=== PATIENT | male | born 1940 | race Caucasian/White ===

== ENCOUNTER 2018-11-07 09:53 | Inpatient (IN) | payer OTHER, MEDICARE ==
[2018-11-07 11:21] LABS: Absolute Lymphocytes (CBC) 1.3 K/uL (0.7-4.9); Absolute Monocytes 1.3 K/uL (0.1-1.3); Basophils % 0.4 % (0-1.3); Eosinophils % 1.3 % (0-4.4); Hematocrit 36.7 % (39.6-49.0); Lymphocytes % 9.3 % (15.3-44.8); MPV 8.2 fL (7.6-11.3); Monocytes % 9.3 % (3.3-12.3); RBC Red Blood Cell Count 4.17 M/uL (4.33-5.43)
[2018-11-07 11:37] LABS: Albumin 3.1 g/dL (3.4-5.0); Bilirubin Total 0.8 mg/dL (0.2-1.0); Potassium 4.5 mmol/L (3.5-5.1); Protein, Total 7.2 g/dL (6.4-8.2)
--- NOTE | 2018-11-07 11:53 | RAD REPORT ---
EXAM DESCRIPTION: RAD - Foot Right 3 View - 11/07/2018 11:46 am CLINICAL HISTORY: diabetic foot;Swelling COMPARISON: <Comparisons> FINDINGS: Prominent soft tissue swelling is seen along the forefoot. A large ulceration is seen miya g the wall of foot anteriorly. There is swelling noted of the third toe with subtle demineralization of the underlying distal phalanx. This is equivocal for early osteomyelitis.
[2018-11-07] MEDS ORDERED: CLINDAMYCIN INJ 600 MG in NA CHLORIDE 0.9% 50 ML IV ONE (12:00)
--- NOTE | 2018-11-07 12:00 | ER ---
Nurse's Notes [facility] Name: Cole Jeffrey Age: 78 yrs Sex: Male : 1940 Arrival Date: 11/07/2018 Time: 09:55 Bed 17 Private MD: Layo Christy E Diagnosis: Cellulitis and acute lymphangitis of other parts of limb-right foot Presentation: 11/07 09:57 Presenting complaint: Sent by Dr. Christy for worsening chronic right foot wound hb infection. Transition of care: patient was not received from another setting of care. Onset of symptoms is unknown. Risk Assessment: Do you want to hurt yourself or someone else? Patient reports no desire to harm self or others. Care prior to arrival: None. 09:57 Method Of Arrival: Ambulatory hb 09:57 Acuity: JOSE F 3 hb 10:05 Initial Sepsis Screen: Does the patient meet any 2 criteria? No. Patient's initial rb1 sepsis screen is negative. 10:05 Initial Sepsis Screen: Does the patient have a suspected source of infection? No. rb1 Patient's initial sepsis screen is negative. Historical: - Allergies: 10:00 No Known Allergies; hb - Home Meds: 10:00 Cialis 2.5 mg Oral tab 1 tab once daily [Active]; glimepiride 4 mg Oral tab 1 tab once hb daily [Active]; Januvia 100 mg Oral tab 1 tab once daily [Active]; levothyroxine 100 mcg tab 1 tab once daily [Active]; fluticasone [Active]; oxybutynin chloride 5 mg Oral tr24 1 tab once daily [Active]; Proscar 5 mg Oral tab 1 tab once daily [Active]; simvastatin 20 mg Oral tab 1 tab once daily [Active]; furosemide 20 mg Oral tab 1 tab as needed [Active]; glimepiride 4 mg Oral tab 1 tab once daily [Active]; losartan-hydrochlorothiazide 100-25 mg Oral tab 1 tab once daily [Active]; metformin 1,000 mg Oral tab 1 tab 2 times per day [Active]; Matzim LA 360 mg Oral Tb24 1 tab once daily [Active]; tamsulosin 0.4 mg Oral cp24 1 cap once daily [Active]; terbinafine HCl 250 mg Oral tab 1 tab once daily [Active]; amlodipine 2.5 mg tab once daily [Active]; magnesium oxide 500 mg Oral tab [Active]; - PMHx: 10:00 Cellulitis; Diabetes - NIDDM; Hyperlipidemia; Hypertension; Hypothyroidism; hb - Immunization history:: Adult Immunizations up to date. - Social history:: Smoking status: Patient/guardian denies using tobacco, Patient/guardian denies using alcohol, street drugs, The patient lives with family. - Ebola Screening: : No symptoms or risks identified at this time. - Family history:: not pertinent. Screenin:05 Abuse screen: Denies threats or abuse. Nutritional screening: No deficits noted. rb1 Tuberculosis screening: No symptoms or risk factors identified. Fall Risk None identified. Assessment: 10:05 General: Appears in no apparent distress. comfortable, Behavior is calm, cooperative, rb1 Denies fever. Pain: Complains of pain in right foot Pain currently is 7 out of 10 on a pain scale. Neuro: Level of Consciousness is awake, alert, obeys commands, Oriented to person, place, time, situation. Cardiovascular: Capillary refill < 3 seconds is brisk in bilateral fingers. Respiratory: Airway is patent Respiratory effort is even, unlabored, Respiratory pattern is regular, symmetrical. GI: No signs and/or symptoms were reported involving the gastrointestinal system. : No signs and/or symptoms were reported regarding the genitourinary system. Derm: Wound noted right foot. Musculoskeletal: Range of motion: intact in all extremities. 11:00 Reassessment: Patient appears in no apparent distress at this time. Patient and/or rb1 family updated on plan of care and expected duration. Pain level reassessed. Patient is alert, oriented x 3, equal unlabored respirations, skin warm/dry/pink. 12:05 Reassessment: Patient appears in no apparent distress at this time. No changes from rb1 previously documented assessment. 13:00 Reassessment: Patient appears in no apparent distress at this time. Patient and/or rb1 family updated on plan of care and expected duration. Pain level reassessed. Patient is alert, oriented x 3, equal unlabored respirations, skin warm/dry/pink. Family at bedside. 14:00 Reassessment: Patient appears in no apparent distress at this time. No changes from rb1 previously documented assessment. 15:00 Reassessment: Patient appears in no apparent distress at this time. Patient and/or rb1 family updated on plan of care and expected duration. Pain level reassessed. Patient is alert, oriented x 3, equal unlabored respirations, skin warm/dry/pink. Pt. is sitting on the side of the bed talking to his family. 16:00 Reassessment: Patient appears in no apparent distress at this time. No changes from rb1 previously documented assessment. Family remains at bedside. 17:00 Reassessment: Patient appears in no apparent distress at this time. Patient and/or rb1 family updated on plan of care and expected duration. Pain level reassessed. Patient is alert, oriented x 3, equal unlabored respirations, skin warm/dry/pink. 17:35 Reassessment: I tried to call report and was asked to call back in five minutes by rb1 Roxanne. 17:46 Reassessment: Tried to call report but there was no answer. rb1 18:00 Reassessment: Patient appears in no apparent distress at this time. Assisted the pt. in rb1 repositioning. 18:08 Reassessment: Called report to RUBEN Cunha. Information from the [facility] was given. All rb1 questions asked and answered. Vital Signs: 09:58 BP 152 / 67; Pulse 71; Resp 20; Temp 97.9; Pulse Ox 97% on R/A; Weight 118.84 kg; hb Height 6 ft. 2 in. (187.96 cm); Pain 8/10; 11:00 BP 156 / 60; Pulse 72; Resp 20; Temp 98.0; Pulse Ox 97% on R/A; mh5 11:45 BP 140 / 89; Pulse 72; Resp 17; Temp 97.6(O); Pulse Ox 97% on R/A; mh5 12:09 Pain 4/10; rb1 12:45 BP 132 / 58; Pulse 69; Resp 18; Temp 97.9(O); Pulse Ox 98% on R/A; mh5 13:45 BP 151 / 68; Pulse 73; Resp 22; Temp 98.0(O); Pulse Ox 96% ; mh5 14:45 BP 127 / 53; Pulse 76; Resp 18; Temp 98.2(O); Pulse Ox 96% on R/A; mh5 15:45 BP 124 / 65; Pulse 70; Resp 19; Temp 97.8(O); Pulse Ox 96% on R/A; mh5 16:45 BP 119 / 72; Pulse 61; Resp 20; Temp 98.6(O); Pulse Ox 96% on R/A; mh5 17:15 BP 138 / 70; Pulse 68; Resp 17; Temp 99.4(O); Pulse Ox 100% on R/A; Pain 4/10; rb1 18:10 BP 135 / 68; Pulse 73; Resp 19; Temp 99.0(O); Pulse Ox 100% on R/A; Pain 4/10; rb1 09:58 Body Mass Index 33.64 (118.84 kg, 187.96 cm) hb 17:15 At it's worst its a 8 rb1 ED Course: 09:55 Patient arrived in ED. as 09:55 Layo Christy DPM is Private Physician. as 09:58 Triage completed. hb 10:00 Arm band placed on. hb 10:04 Jerrica Stoddard MD is Attending Physician. ma2 10:47 Josiane Martinez, RN is Primary Nurse. rb1 11:02 Patient has correct armband on for positive identification. Bed in low position. Call 5 light in reach. Side rails up X 1. Adult w/ patient. Pulse ox on. NIBP on. 11:04 Inserted saline lock: 20 gauge in right antecubital area, using aseptic technique. rb1 Blood collected. 11:47 Foot Right 3 View XRAY In Process Unspecified. EDMS 11:58 Kathya Lara MD is Hospitalizing Provider. ma2 18:30 No provider procedures requiring assistance completed. Patient admitted, IV remains in rb1 place. Administered Medications: 12:04 Drug: Clindamycin 600 mg Route: IVPB; Infused Over: 30 mins; Site: right antecubital; rb1 12:40 Follow up: Response: No adverse reaction; IV Status: Completed infusion rb1 15:33 Drug: Zosyn 3.375 grams Route: IVPB; Infused Over: 60 mins; Site: right antecubital; rb1 16:38 Follow up: Response: No adverse reaction; IV Status: Completed infusion rb1 Point of Care Testing: Blood Glucose: 11:00 Blood Glucose: 294 mg/dL; mh5 Ranges: Outcome: 11:59 Decision to Hospitalize by Provider. ma2 18:30 Patient left the ED. rb1 18:30 Admitted to Tele accompanied by tech, family with patient, via wheelchair, room 418, rb1 with chart, Report called to RUBEN Cunha 18:30 Condition: stable 18:30 Instructed on the need for admit. Signatures: Dispatcher [employer] Cheyenne Ayala Rebecca, RN RN rb1 Marilyn Leiva RN RN Megan Levi 5 Jerrica Stoddard MD MD ma2 Corrections: (The following items were deleted from the chart) 11:02 10:55 BP 126 / 54; Pulse 72bpm; Resp 18bpm; Pulse Ox 97%; Temp 98.0F Oral; mh5 mh5 12:12 12:10 Initial Sepsis Screen: Does the patient meet any 2 criteria? rb1 rb1 19:31 18:59 Patient left the ED. rb1 rb1
--- NOTE | 2018-11-07 12:00 | EDPHYS ---
Physician Documentation [facility] Name: Cole Jeffrey Age: 78 yrs Sex: Male : 1940 Arrival Date: 11/07/2018 Time: 09:55 Bed 17 Private MD: Layo Christy E ED Physician Jerrica Stdodard HPI: 11/07 11:55 This 78 yrs old Male presents to ER via Ambulatory with complaints of Foot ma2 Infection. 11:55 The complaints affect the right foot. Onset: The symptoms/episode began/occurred ma2 gradually, 2 day(s) ago. Associated signs and symptoms: Pertinent positives: pain and fever and 2 days worsening of chronic diabetic foot , Pertinent negatives: numbness, swelling, tingling. The patient has experienced similar episodes in the past. Historical: - Allergies: 10:00 No Known Allergies; hb - Home Meds: 10:00 Cialis 2.5 mg Oral tab 1 tab once daily [Active]; glimepiride 4 mg Oral tab 1 tab once hb daily [Active]; Januvia 100 mg Oral tab 1 tab once daily [Active]; levothyroxine 100 mcg tab 1 tab once daily [Active]; fluticasone [Active]; oxybutynin chloride 5 mg Oral tr24 1 tab once daily [Active]; Proscar 5 mg Oral tab 1 tab once daily [Active]; simvastatin 20 mg Oral tab 1 tab once daily [Active]; furosemide 20 mg Oral tab 1 tab as needed [Active]; glimepiride 4 mg Oral tab 1 tab once daily [Active]; losartan-hydrochlorothiazide 100-25 mg Oral tab 1 tab once daily [Active]; metformin 1,000 mg Oral tab 1 tab 2 times per day [Active]; Matzim LA 360 mg Oral Tb24 1 tab once daily [Active]; tamsulosin 0.4 mg Oral cp24 1 cap once daily [Active]; terbinafine HCl 250 mg Oral tab 1 tab once daily [Active]; amlodipine 2.5 mg tab once daily [Active]; magnesium oxide 500 mg Oral tab [Active]; - PMHx: 10:00 Cellulitis; Diabetes - NIDDM; Hyperlipidemia; Hypertension; Hypothyroidism; hb - Immunization history:: Adult Immunizations up to date. - Social history:: Smoking status: Patient/guardian denies using tobacco, Patient/guardian denies using alcohol, street drugs, The patient lives with family. - Ebola Screening: : No symptoms or risks identified at this time. - Family history:: not pertinent. ROS: 11:55 MS/extremity: Positive for pain, swelling, warmth, Negative for ecchymosis. ma2 11:55 Constitutional: Negative for fever, chills, and weight loss. 11:55 All other systems are negative. Exam: 11:55 Constitutional: This is a well developed, well nourished patient who is awake, alert, ma2 and in no acute distress. Cardiovascular: Regular rate and rhythm with a normal S1 and S2. No gallops, murmurs, or rubs. Normal PMI, no JVD. No pulse deficits. Respiratory: Lungs have equal breath sounds bilaterally, clear to auscultation and percussion. No rales, rhonchi or wheezes noted. No increased work of breathing, no retractions or nasal flaring. Abdomen/GI: Soft, non-tender, with normal bowel sounds. No distension or tympany. No guarding or rebound. No evidence of tenderness throughout. Skin: Warm, dry with normal turgor. Normal color with no rashes, no lesions, and no evidence of cellulitis. Neuro: Awake and alert, GCS 15, oriented to person, place, time, and situation. Cranial nerves II-XII grossly intact. Motor strength 5/5 in all extremities. Sensory grossly intact. Cerebellar exam normal. Normal gait. 11:55 Musculoskeletal/extremity: Extremities: grossly normal except: right plantar diabetic wound at base of right great toe, wound is 1 x 1 cm, deep with puss, with surrounding cellulitis , ROM: intact in all extremities. Vital Signs: 09:58 BP 152 / 67; Pulse 71; Resp 20; Temp 97.9; Pulse Ox 97% on R/A; Weight 118.84 kg; hb Height 6 ft. 2 in. (187.96 cm); Pain 8/10; 11:00 BP 156 / 60; Pulse 72; Resp 20; Temp 98.0; Pulse Ox 97% on R/A; mh5 11:45 BP 140 / 89; Pulse 72; Resp 17; Temp 97.6(O); Pulse Ox 97% on R/A; mh5 12:09 Pain 4/10; rb1 12:45 BP 132 / 58; Pulse 69; Resp 18; Temp 97.9(O); Pulse Ox 98% on R/A; mh5 13:45 BP 151 / 68; Pulse 73; Resp 22; Temp 98.0(O); Pulse Ox 96% ; mh5 14:45 BP 127 / 53; Pulse 76; Resp 18; Temp 98.2(O); Pulse Ox 96% on R/A; mh5 15:45 BP 124 / 65; Pulse 70; Resp 19; Temp 97.8(O); Pulse Ox 96% on R/A; mh5 16:45 BP 119 / 72; Pulse 61; Resp 20; Temp 98.6(O); Pulse Ox 96% on R/A; mh5 17:15 BP 138 / 70; Pulse 68; Resp 17; Temp 99.4(O); Pulse Ox 100% on R/A; Pain 4/10; rb1 18:10 BP 135 / 68; Pulse 73; Resp 19; Temp 99.0(O); Pulse Ox 100% on R/A; Pain 4/10; rb1 09:58 Body Mass Index 33.64 (118.84 kg, 187.96 cm) hb 17:15 At it's worst its a 01/20 rb1 MDM: 10:04 Patient medically screened. ma2 11:55 Differential diagnosis: cellulitis, diabetic foot with cellulitis. Data reviewed: vital ma2 signs, nurses notes. Sepsis 6 hour Focused Exam: Focused assessment performed: November 07, 2018 at 11:58 Heart: Regular rate/rhythm. Lungs: noted to be clear bilaterally. Capillary refill examination performed. Capillary refill noted to be brisk. Current patient vital signs reviewed: Yes. Counseling: I had a detailed discussion with the patient and/or guardian regarding: the historical points, exam findings, and any diagnostic results supporting the discharge/admit diagnosis, the presence of at least one elevated blood pressure reading (>120/80) during this emergency department visit. Response to treatment: the patient's symptoms have markedly improved after treatment. 11/07 10:42 Order name: CBC with Diff; Complete Time: 11:51 [facility] 11/07 10:42 Order name: CMP; Complete Time: 11:51 [facility] 11/07 10:42 Order name: Lactate; Complete Time: 11:51 [facility] 11/07 10:42 Order name: Procalcitonin; Complete Time: 11:51 [facility] 11/07 10:45 Order name: Blood Culture Adult (2) [facility] 11/07 10:48 Order name: ESR; Complete Time: 11:51 [facility] 11/07 10:42 Order name: Foot Right 3 View XRAY; Complete Time: 11:54 [facility] 11/07 10:48 Order name: CRP; Complete Time: 11:51 [facility] 11/07 15:38 Order name: Lactate Sepsis 2 HR Follow-up [facility] 11/07 17:37 Order name: Diet Ada 1800 Prasanth; Complete Time: 17:39 rb1 Administered Medications: 12:04 Drug: Clindamycin 600 mg Route: IVPB; Infused Over: 30 mins; Site: right antecubital; rb1 12:40 Follow up: Response: No adverse reaction; IV Status: Completed infusion rb1 15:33 Drug: Zosyn 3.375 grams Route: IVPB; Infused Over: 60 mins; Site: right antecubital; rb1 16:38 Follow up: Response: No adverse reaction; IV Status: Completed infusion rb1 Point of Care Testing: Blood Glucose: 11:00 Blood Glucose: 294 mg/dL; mh5 Ranges: Critical Glucose Levels:Adult <50 mg/dl or >400 mg/dl <40 mg/dl or >180 mg/dl Disposition: 11/07/18 11:59 Hospitalization ordered by Kathya Lara for Inpatient Admission. Preliminary diagnosis is Cellulitis and acute lymphangitis of other parts of limb - right foot. - Bed requested for Telemetry/MedSurg (Inpatient). - Status is Inpatient Admission. rb1 - Condition is Stable. - Problem is new. - Symptoms are unchanged. UTI on Admission? No Signatures: Dispatcher [employer] [facility] Shoshana Garcia Rebecca, RN RN rb1 Marilyn Leiva RN RN Jerrica Stoddard MD MD ma2 Corrections: (The following items were deleted from the chart) 17:20 11:59 Hospitalization Ordered by Kathya Lara MD for Inpatient Admission. Preliminary bd diagnosis is Cellulitis and acute lymphangitis of other parts of limb - right foot. Bed requested for Telemetry/MedSurg (Inpatient). Status is Inpatient Admission. Condition is Stable. Problem is new. Symptoms are unchanged. UTI on Admission? No. ma2 18:59 17:20 11/07/2018 11:59 Hospitalization Ordered by Kathya Lara MD for Inpatient rb1 Admission. Preliminary diagnosis is Cellulitis and acute lymphangitis of other parts of limb - right foot. Bed requested for Telemetry/MedSurg (Inpatient). Status is Inpatient Admission. Condition is Stable. Problem is new. Symptoms are unchanged. UTI on Admission? No. bd
[2018-11-07] MEDS ORDERED: PIPER/TAZO/NS 3.375gm 3.375 GM/100 ML BAG ONE (15:24)
[2018-11-07] MEDS ORDERED: ENOXAPARIN 30 MG/0.3 ML SQ SCH (18:29)
[2018-11-07] MEDS: INSULIN -REGULAR HUMAN 50 UNIT/0.5 ML ML SQ SCH ×2 (18:29→20:18)
[2018-11-07] MEDS ORDERED: CEFEPIME 2 GM VIAL IV SCH (18:29)
[2018-11-07] MEDS ORDERED: ACETAMINOPHEN 500 MG TAB PO PRN (18:29)
[2018-11-07] MEDS ORDERED: ONDANSETRON 4 MG/2 ML VIAL IV PRN (18:29)
[2018-11-07] MEDS ORDERED: MORPHINE 2 MG/ML SYR IV PRN (18:29)
[2018-11-07] MEDS ORDERED: D50W 25 GM/50 ML SYRINGE IV PRN (18:43)
[2018-11-07] MEDS ORDERED: GLUCAGON 1 MG/VIAL IM PRN (18:43)
[2018-11-07] MEDS ORDERED: CEFEPIME 2 GM in NA CHLORIDE 0.9% 100 ML IV SCH (19:00)
[2018-11-07 19:03] VITALS: BMI 34.9
[2018-11-07] MEDS: NA CHLORIDE 0.9% 1,000 ML IV SCH (20:05)
[2018-11-07] MEDS ORDERED: VANCOMYCIN/NS 1 gm 1 GM/250 ML BAG IVPB SCH (21:00)
[2018-11-08] LABS: Urine Appearance CLEAR; Urine Bilirubin NEGATIVE (NEG); Urine Blood NEGATIVE (NEG); Urine Color YELLOW; Urine Glucose NEGATIVE (NEG); Urine Protein TRACE (NEG); Urine Specific Gravity 1.015 (1.005-1.030); Urine Urobilinogen 0.2 mg/dL (0.2-1.0)
[2018-11-08 00:20] LABS: Urine Microscopic Reflex ORDER UMIC
[2018-11-08 01:11] LABS: Urine Bacteria <20 /HPF (NONE SEEN); Urine Culture Reflex Order NOT NEEDED; Urine RBC <5 /HPF (NONE SEEN)
--- NOTE | 2018-11-08 01:36 | HP ---
Date of Admission: 11/07/2018 Chief Complaint: Diabetic foot wound. Code Status: Full. The patient has a living will and his is the medical power of deputy attorney general. Primary Care Physician: Dr. Lucero. Consultants: Dr. Christy with Podiatry. History Of Present Illness: The patient is a 78-year-old male with past medical history of hypertens ion, diabetes, who was in his usual state of health until 1 week prior to admission when the patient had developed worsening foot ulcer on his right foot plantar aspect after foot wound developed back i n April of 2018 while the patient was hunting. The patient has been on a course of oral antibioti cs, which improved the condition initially week ago. However, on Tuesday, the patient had worsening r edness, swelling, pain, and pustular drainage from the wound. He was started on Bactrim and cultures were positive. However, due to failed outpatient treatment, he was evaluated [facility] morning and sent over to the ER for further evaluation and treatment with IV anti biotics due to worsening foot infection and cellulitis. The patient's symptoms are constant, moderat e, progressively worsening. He reports fevers as well as chills. The patient denies any chest pain or shortness of breath. In the ER, his workup revealed elevated white blood cell count of 13.8 with left shift. ESR and CRP were elevated. Procalcitonin was negative; however, lactate was elevated at 2.4. The patient did not appear to be septic. Did have some elevated kidney function, creatinine o f 1.34 with a baseline which was normal. The patient was given clindamycin IV and foot x-ray showed equivocal results for osteomyelitis. The patient was then referred for admission. When seen in the ER, he was awake, alert, oriented x3, in some mild distress. 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 Surgical History: Right knee replacement on 12/21/2010, left knee replacement on 03/08/2013. Allergies: NO KNOWN DRUG ALLERGIES. Medications: List reviewed. Social History: The patient is a former smoker, quit smoking in 1986. Drinks whiskey every night. No illicit drug use. The patient is , lives at home, fairly independent. Family History: Father had heart disease and of a heart attack. Mother has breast cance r, also of heart attack. Review of Systems: Ten-point system is negative except as per HPI. Physical Examination: Vital Signs: Blood pressure 152/67, pulse 71, respirations 20. O2 is 97% on room air. Temperature is 97.9. BMI is 33.6. General: Awake, alert, oriented x3. Elderly male, in some mild distress due to pain, ill appearing. HEENT: Normocephalic, atraumatic. PERRLA. EOMI. Dry mucous membranes. Oropharynx is clear. Conj unctivae are anicteric. Neck: Supple. No JVD. Trachea midline. CV: S1, S2. Regular rate and rhythm. Peripheral pulses are weak bilaterally. Respiratory: Moving air well bilaterally. No wheezing or stridor. Gastrointestinal: Abdomen is soft, nontender, nondistended. Positive bowel sounds. No guarding or rigidity. Extremities: No clubbing or cyanosis. Right lower extremity has edema, 2+. Minimal pedal edema on the left lower extremity. Skin: Right lower extremity has erythema, warm to touch, tender to palpation with streaking of eryth maurisio extending up towards the right lower extremity. The patient has a diabetic foot wound on the milton ntar aspect with pustular drainage. Psych: Mood is okay. Affect is full. Insight and judgment are good. Neuro: Cranial nerves 2-12 intact grossly. No focal neurological deficit. Speech is normal. Decre ased sensation to light touch, bilateral lower extremities. Laboratory Data: Sodium 131, potassium 4.5, chloride 98, CO2 27, BUN 19, creatinine 1.34, glucose 26 7, lactate 2.4, calcium 8.5, CRP 117, albumin 3.1. Procalcitonin less than 0.05. WBC 13.8, H and H 12 and 36.7, platelets 271, neutrophils 79%. ESR is 84. Imaging Studies: Foot x-ray of the right shows prominent soft tissue swelling along the forefoot. L arge ulcerations seen along the wall of the foot anteriorly. Swelling noted of the third toe with li btle demineralization, underlying distal phalanx. This is equivocal for early osteomyelitis. Assessment And Plan: A 78-year-old male with: 1.Osteomyelitis of the right foot, failed outpatient treatment. We will obtain MRI of the foot. We will start on broad-spectrum IV antibiotics. This is secondary to diabetic foot wound. Dr. Westley sanchez Podiatry has been consulted. We will obtain ID consultation. 2.Right foot cellulitis secondary to diabetic foot wound with failed outpatient treatment. The bao ent is currently on Bactrim. One week ago, was also on oral regimen. We will start on broad spectru m IV antibiotics, obtain blood cultures and wound cultures. 3.Obesity, BMI 33. 4.Diabetes mellitus, type 2, non-insulin requiring with hyperglycemia. We will start on sliding sca le insulin, monitor blood glucose levels. 5.Essential hypertension. We will resume home medications. 6.Benign prostatic hyperplasia. We will continue home medication. 7.Hypothyroidism. We will continue Synthroid. 8.Mixed hyperlipidemia. Continue statin. 9.GI and DVT prophylaxis with PPI and Lovenox. 10.Acute kidney injury. Creatinine is elevated at 1.34. Baseline from several years ago was normal . We will continue with IV fluids, avoid NSAIDs, and monitor creatinine level. Admit the patient to med-surg, place as inpatient. Length of stay, greater than 2 midnights. /MARK Voice ID: [id number]
[2018-11-08 06:22] LABS: Absolute Lymphocytes (CBC) 1.4 K/uL (0.7-4.9); Absolute Monocytes 1.1 K/uL (0.1-1.3); Absolute Neutrophil 5.4 K/uL (1.8-8.0); Basophils % 0.6 % (0-1.3); Eosinophils % 8.5 % (0-4.4); Lymphocytes % 16.3 % (15.3-44.8); MPV 7.7 fL (7.6-11.3); Monocytes % 12.7 % (3.3-12.3); RBC Red Blood Cell Count 3.89 M/uL (4.33-5.43)
[2018-11-08 06:41] LABS: Potassium 4.3 mmol/L (3.5-5.1)
[2018-11-08] MEDS: INSULIN -REGULAR HUMAN 50 UNIT/0.5 ML ML SQ SCH ×4 (07:30→21:00)
--- NOTE | 2018-11-08 08:33 | P.CNS ---
Date of Consult: 11/08/18 Reason for Consult: cellulitis with abscess right foot Allergies No Known Allergies Allergy (Verified 05/13/15 02:37) Home Medications: Amlodipine Besylate [Norvasc] 2.5 mg PO DAILY 11/07/18 Aspirin 325 mg PO DAILY 11/07/18 Cetirizine HCl [Allergy Relief] 10 mg PO DAILY 11/07/18 Finasteride [Proscar] 5 mg PO DAILY 11/07/18 Fluticasone Propionate [Flovent Diskus] 50 mcg IH BID 11/07/18 Glimepiride [Amaryl] 4 mg PO BID 11/07/18 Levothyroxine Sodium 1 tab PO DAILY 11/07/18 Losartan/Hydrochlorothiazide [Losartan-Hctz 100-25 mg Tab] 1 tab PO DAILY Magnesium Oxide [Magnesium] 500 mg PO BID 11/07/18 Metformin ER [Glucophage ER] 1,000 mg PO BID 11/07/18 Oxybutynin Chloride [Ditropan] 5 mg PO BEDTIME 11/07/18 Simvastatin 20 mg PO BEDTIME 11/07/18 Sitagliptin Phosphate [Januvia] 100 mg PO DAILY 11/07/18 Tamsulosin [Flomax] 0.4 mg PO BEDTIME 11/07/18 - Past Medical/Surgical History Diabetic: Yes -: DM-NIDDM -: high cholestrol -: BPH -: hypothyroidism -: HTN -: allergies -: skin cancer ears & arms -: 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 -: left knee replacement 03/08/13 - Family History Father Medical History: Heart disease Notes: heart attack- passed Mother Medical History: Cancer Notes: Breast CA, passed r/t Heart attack - Social History Smoking Status: Former smoker Alcohol use: Yes CD- Drugs: No Caffeine use: Yes Place of Residence: Home Review of Systems 10-point ROS is otherwise unremarkable Physical Examination Temp Pulse Resp BP Pulse Ox 98.9 F 73 16 145/63 H 95 11/08/18 04:00 11/08/18 04:00 11/08/18 04:00 11/08/18 04:00 11/08/18 04:00 General: Alert, In no apparent distress, Oriented x3 Cardiovascular: Normal pulses, Edema Capillary refill: <2 Seconds Musculoskeletal: No clubbing, No swelling, No contractures, No erythema, No tenderness, No warmth Integumentary: Erythema, Warmth, Diabetic ulcer (ulceration plantar right 1st mpj with no probing to bone at this time. Wound measures 2.0cm X 1.5cm X 1.5cm with large granulation and fibrin noted. erythema noted to entire forefoot with edema present as well) Neurological: Abnormal sensation Laboratory Data (last 24 hrs) 11/07/18 11:04: Sodium 131 L, Potassium 4.5, BUN 19 H, Creatinine 1.34 H, Glucose 267 H, Total Bilirubin 0.8, AST 13 L, ALT 25, Alkaline Phosphatase 57 11/07/18 11:04: WBC 13.8 H, Hgb 12.0 L, Hct 36.7 L, Plt Count 271 - Problems (1) Cellulitis of foot, right Current Visit: Yes Status: Acute Plan: MRI to evaluate for osteomyelitis and length of need for iv antibiotics. Bid packing right foot wound with saline moistened gauze Time Spent Managing Pts care (In Minutes): 20
[2018-11-08] MEDS: VANCOMYCIN 2 GM in NA CHLORIDE 0.9% 500 ML IVPB SCH (09:42)
[2018-11-08] MEDS: CEFEPIME/SWI 2gm 2 GM/20 ML SYR IV SCH (09:42)
--- NOTE | 2018-11-08 11:16 | RAD REPORT ---
EXAM DESCRIPTION: MRIFoot Right Wo Cont11/08/2018 10:56 am CLINICAL HISTORY: Left foot pain and swelling COMPARISON: November 07, 2018 x-ray TECHNIQUE: Axial, sagittal and coronal magnetic resonance imaging of the left foot was obtained. FINDINGS: Abnormal signal is present throughout most of the third distal phalanx compatible with ost eomyelitis. Small area of abnormal signal is present within the sesamoid adjacent to the first metatarsal head. A djacent edema is seen within the soft tissue. A fluid-filled abscess is not noted. No fracture or dislocation IMPRESSION: Osteomyelitis involving the third distal phalanx Small area of abnormal signal within the sesamoid adjacent to the first metatarsal head equivocal for additional early osteomyelitis
[2018-11-08] MEDS: COLLAGENASE 30 GM OINTMENT TOP SCH (14:24)
[2018-11-08] MEDS: ENOXAPARIN 40 MG/0.4 ML SQ SCH (16:23)
[2018-11-08] MEDS: GLIMEPIRIDE 2 MG TABLET PO SCH (16:23)
[2018-11-08] MEDS: NA CHLORIDE 0.9% 1,000 ML IV SCH ×2 (16:30→21:09)
[2018-11-08] MEDS ORDERED: TAMSULOSIN 0.4 MG SR CAP PO SCH (21:00)
[2018-11-08] MEDS ORDERED: OXYBUTYNIN CHLORIDE 5 MG TAB PO SCH (21:00)
[2018-11-08] MEDS ORDERED: ATORVASTATIN 10 MG TAB PO SCH (21:00)
[2018-11-08] MEDS: HOME MED 1 EA UNK (Fluticasone Propionate [Flovent Diskus] 50 MCG) IH SCH (21:00)
[2018-11-08] MEDS: LACTOBACILLUS/ACIDOPHILUS TAB PO SCH (22:03)
[2018-11-09 04:08] VITALS: O2SAT 96
[2018-11-09] MEDS: VANCOMYCIN 2 GM in NA CHLORIDE 0.9% 500 ML IVPB SCH (06:02)
[2018-11-09 06:12] LABS: Potassium 4.3 mmol/L (3.5-5.1)
[2018-11-09 06:20] LABS: Absolute Lymphocytes (CBC) 1.6 K/uL (0.7-4.9); Absolute Monocytes 1.1 K/uL (0.1-1.3); Absolute Neutrophil 4.7 K/uL (1.8-8.0); Basophils % 0.6 % (0-1.3); Eosinophils % 11.5 % (0-4.4); Hematocrit 34.7 % (39.6-49.0); Lymphocytes % 18.6 % (15.3-44.8); MPV 8.2 fL (7.6-11.3); Monocytes % 13.4 % (3.3-12.3); RBC Red Blood Cell Count 3.98 M/uL (4.33-5.43)
[2018-11-09] MEDS ORDERED: LEVOTHYROXINE SOD 0.1 MG TAB PO SCH (06:30)
[2018-11-09] MEDS: INSULIN -REGULAR HUMAN 50 UNIT/0.5 ML ML SQ SCH ×3 (07:30→16:30)
[2018-11-09] MEDS ORDERED: CETIRIZINE HCL 5 MG TABLET PO SCH (09:00)
[2018-11-09] MEDS: HOME MED 1 EA UNK (Fluticasone Propionate [Flovent Diskus] 50 MCG) IH SCH (09:00)
[2018-11-09] MEDS ORDERED: LOSARTAN/HCTZ 50-12.5 PO SCH (09:00)
[2018-11-09] MEDS ORDERED: SITAGLIPTIN PHOS 100 MG TAB PO SCH (09:00)
[2018-11-09] MEDS ORDERED: FINASTERIDE 5 MG TAB PO SCH (09:00)
[2018-11-09] MEDS ORDERED: AMLODIPINE 2.5 MG TAB PO SCH (09:00)
[2018-11-09] MEDS: CEFEPIME/SWI 2gm 2 GM/20 ML SYR IV SCH (09:11)
[2018-11-09] MEDS: LACTOBACILLUS/ACIDOPHILUS TAB PO SCH ×2 (09:12→15:18)
[2018-11-09] MEDS: GLIMEPIRIDE 2 MG TABLET PO SCH ×2 (09:12→16:44)
[2018-11-09] MEDS: COLLAGENASE 30 GM OINTMENT TOP SCH (09:14)
--- NOTE | 2018-11-09 11:44 | PN ---
Date of Progress Note: 11/08/2018 Subjective: The patient seen and examined. Chart reviewed and case discussed with Dr. Christy and Dr. Rust. The patient states his pain is better. Swelling and redness still present. Medications: List reviewed. Physical Examination: Vital Signs: Temperature 97.8, heart rate 68, blood pressure 146/72, respirations 19, and O2 of 94% on room air. General: Awake, alert, and oriented x3. Ill-appearing, elderly male, obese. CV: S1 and S2. Regular rate and rhythm. Peripheral pulses present. Respiratory: Moving air well bilaterally. No wheezing or stridor. No use of accessory muscles. Gastrointestinal: Abdomen is soft, nontender, nondistended. Positive bowel sounds. No guarding or rigidity. Extremities: No clubbing or cyanosis. The patient has edema of the right lower extremity. Skin: Right lower extremity palmar aspect wound with pustular drainage, foul odor. Neurologic: Nonfocal. He has decreased sensation to light touch bilateral lower extremities. Laboratory Data: Sodium 135, potassium 4.3, chloride 103, CO2 27, BUN 15, creatinine 1.08, glucose 8 9, calcium 8.2. WBC 8.6, H and H 11.3 and 34, platelets 252, neutrophils 61%. Blood cultures no alvin wt to date. Wound cultures pending. MRI of the right foot shows osteomyelitis involving the third distal phalanx, small area of abnormal signal within the sesamoid adjacent to the first metatarsal he ad equivocal for additional early osteomyelitis. Assessment And Plan: A 78-year-old male with: 1.Osteomyelitis of the right foot, MRI shows the third phalanx and the sesamoid bone around the firs t metatarsal involved. Appreciate Dr. Christy's input. The patient may need debridement. Dr. Rust with ID has been consulted. He recommends LTAC placement for wound care and hyperbaric treatment. Ag ashley with broad-spectrum IV antibiotics. Cultures are pending at this time. White count normalized. The patient is improving. No signs of sepsis. 2.Right foot cellulitis secondary to diabetic foot wound with failed outpatient treatment. Continue broad-spectrum IV antibiotics, slightly improved today. 3.Obesity, BMI 33. 4.Diabetes mellitus type 2 non-insulin requiring with hyperglycemia. Continue sliding scale insulin and monitor blood glucose levels. Glucose is well controlled at 160s to 120s. 5.Essential hypertension, stable. On home medications. 6.Benign prostatic hyperplasia, stable. 7.Hypothyroidism. Continue Synthroid. 8.Mixed hyperlipidemia. Continue Synthroid. 9.Acute kidney injury, likely due to prerenal azotemia. Creatinine now normalized. We will continu e to monitor. Continue IV fluids. 10.Gastrointestinal and deep vein thrombosis prophylaxis with PPI and Lovenox renally dosed. Plan: Continue pain control, wound care, social Work consulted for LTAC placement. /MARK Voice ID: [id number] Report ID: [id number]
--- NOTE | 2018-11-09 14:14 | P.DS ---
Admission Date: 11/07/18 Discharge Date: 11/09/18 Disposition[facility] Discharge Condition: FAIR Consultations: Dr. Christy podiatry Dr. Rust ID Procedures: none Brief History of Present Illness: : The patient is a 78-year-old male with past medical history of hypertension, diabetes, who was in his usual state of health until 1 week prior to admission when the patient had developed worsening foot ulcer on his right foot plantar aspect after foot wound developed back in April of 2018 while the patient was hunting. The patient has been on a course of oral antibiotics, which improved the condition initially week ago. However, on Tuesday, the patient had worsening redness, swelling, pain, and pustular drainage from the wound. He was started on Bactrim and cultures were positive. However, due to failed outpatient treatment, he was evaluated by [facility] and sent over to the ER for further evaluation and treatment with IV antibiotics due to worsening foot infection and cellulitis. The patient's symptoms are constant, moderate, progressively worsening. He reports fevers as well as chills. The patient denies any chest pain or shortness of breath. In the ER, his workup revealed elevated white blood cell count of 13.8 with left shift. ESR and CRP were elevated. Procalcitonin was negative; however, lactate was elevated at 2.4. The patient did not appear to be septic. Did have some elevated kidney function, creatinine of 1.34 with a baseline which was normal. The patient was given clindamycin IV and foot x-ray showed equivocal results for osteomyelitis. Hospital Course: Patient is a 78-year-old male with diabetes who comes in with diabetic foot wound that was worsening. Patient had been seeing podiatry. Patient was admitted to the hospital was found to have cellulitis and diabetic foot wound with imaging studies positive for osteomyelitis. Patient had failed outpatient treatment with oral antibiotics. Cultures were reobtained did not show any growth to date. Patient did not require any surgical debridement other than bedside debridement and wound healing center on the day of admission. Patient was seen by podiatry and infectious disease. Patient responded well to treatment. His white blood cell count improved. Patient did not appear to be septic. Patient was then referred to [facility] and was accepted for wound care, IV antibiotics and hyperbaric chamber treatment. Patient was cleared from consultants standpoint and was discharged in a stable condition Assessment And Plan: A 78-year-old male with: 1. Osteomyelitis of the right foot, failed outpatient treatment. MRI of the foot positive for osteomyelitis. 2. Right foot cellulitis secondary to diabetic foot wound with failed outpatient treatment. 3. Obesity, BMI 33. 4. Diabetes mellitus, type 2, non-insulin requiring with hyperglycemia. Stable 5. Essential hypertension. Stable 6. Benign prostatic hyperplasia. Stable 7. Hypothyroidism. Synthroid. 8. Mixed hyperlipidemia. statin. 9. Acute kidney injury. Vital Signs/Physical Exam: Temp Pulse Resp BP Pulse Ox 97.5 F 70 19 158/73 H 95 11/09/18 12:00 11/09/18 12:00 11/09/18 12:00 11/09/18 12:00 11/09/18 12:00 General: Alert, In no apparent distress, Oriented x3, Obese HEENT: Atraumatic, PERRLA, EOMI Neck: Supple, JVD not distended Respiratory: Clear to auscultation bilaterally, Normal air movement Cardiovascular: Normal pulses, Regular rate/rhythm, Normal S1 S2, Edema Gastrointestinal: Normal bowel sounds, Soft and benign, Non-distended, No tenderness Musculoskeletal: No tenderness Integumentary: Diabetic ulcer Neurological: Normal speech, Normal strength at 5/5 x4 extr, Normal tone, Normal affect Laboratory Data at Discharge: WBC 8.4 K/uL (4.3-10.9) 11/09/18 05:35 Hgb 11.7 g/dL (13.6-17.9) L 11/09/18 05:35 Hct 34.7 % (39.6-49.0) L 11/09/18 05:35 Plt Count 300 K/uL (152-406) 11/09/18 05:35 Sodium 136 mmol/L (136-145) 11/09/18 05:35 Potassium 4.3 mmol/L (3.5-5.1) 11/09/18 05:35 BUN 15 mg/dL (7-18) 11/09/18 05:35 Creatinine 0.93 mg/dL (0.55-1.3) 11/09/18 05:35 Glucose 83 mg/dL (74-106) 11/09/18 05:35 Total Bilirubin 0.8 mg/dL (0.2-1.0) 11/07/18 11:04 AST 13 U/L (15-37) L 11/07/18 11:04 ALT 25 U/L (12-78) 11/07/18 11:04 Alkaline Phosphatase 57 U/L (45-117) 11/07/18 11:04 Home Medications: Amlodipine Besylate [Norvasc] 2.5 mg PO DAILY 11/07/18 Aspirin 325 mg PO DAILY 11/07/18 Cetirizine HCl [Allergy Relief] 10 mg PO DAILY 11/07/18 Finasteride [Proscar*] 5 mg PO DAILY 11/07/18 Fluticasone Propionate [Flovent Diskus] 50 mcg IH BID 11/07/18 Glimepiride [Amaryl] 4 mg PO BID 11/07/18 Levothyroxine Sodium 1 tab PO DAILY 11/07/18 Losartan/Hydrochlorothiazide [Losartan-Hctz 100-25 mg Tab] 1 tab PO DAILY Magnesium Oxide [Magnesium] 500 mg PO BID 11/07/18 Metformin ER [Glucophage ER*] 1,000 mg PO BID 11/07/18 Oxybutynin Chloride [Ditropan*] 5 mg PO BEDTIME 11/07/18 Simvastatin 20 mg PO BEDTIME 11/07/18 Sitagliptin Phosphate [Januvia*] 100 mg PO DAILY 11/07/18 Tamsulosin [Flomax*] 0.4 mg PO BEDTIME 11/07/18 Acidophilus/Bulgaricus [Lactinex Packet] 1 each PO DAILY #30 gran.pack 11/09/18 Cefepime [Maxipime] 2 gm IV Q24H #1 bag 11/09/18 Collagenase [Santyl Ointment*] 1 appl TOP DAILY #1 tube 11/09/18 Vancomycin/0.9 % Sod Chloride [Vanco 2 Gram/500 ml-0.9% NaCl] 2 gm IV Q18H #1 plast..bag 11/09/18 New Medications: Acidophilus/Bulgaricus [Lactinex Packet] 1 each PO DAILY #30 gran.pack Cefepime [Maxipime] 2 gm IV Q24H #1 bag Collagenase [Santyl Ointment*] 1 appl TOP DAILY #1 tube Vancomycin/0.9 % Sod Chloride [Vanco 2 Gram/500 ml-0.9% NaCl] 2 gm IV Q18H #1 plast..bag Patient Discharge Instructions: Follow up with primary care physician in 1 week. Follow up with Dr. Christy in 2 weeks. Follow up with Infectious disease doctor Barrera in 2 weeks. Return to ER for worsening condition Diet: ADA Activity: Non-weight bearing (on wound) Time spent managing pt's care (in minutes): 41
[2018-11-09 16:20] VITALS: BP 150/65; TEMP 97.8
[2018-11-09] MEDS: ENOXAPARIN 40 MG/0.4 ML SQ SCH (16:45)
--- NOTE | 2018-11-09 18:54 | RAD REPORT ---
EXAM DESCRIPTION: RAD - Chest Single View - 11/09/2018 11:43 am CLINICAL HISTORY: PICC Placement COMPARISON: CHEST PA AND LAT 2 VIEW dated 03/06/2010 FINDINGS: Portable chest was obtained following placement of a right upper extremity PICC line. The catheter tip projects over the SVC.
--- NOTE | 2018-11-10 07:24 | CON ---
History Of Present Illness: This is a 78-year-old male, I was consulted for osteomyelitis of left fo ot third phalanx and diabetic foot ulcer with cellulitis of the legs. 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 The patient denies any headache, naus ea, vomiting, chest pain, abdominal pain, constipation, or diarrhea. Patient's foot ulcer was being treated with surgical debridement and outpatient antibiotics, which failed and the patient was told t o come to the emergency room for further evaluation. The patient denies any other problems at this t az. Past Medical History: Diabetes mellitus, hypertension, obesity, hyperlipidemia, benign prostatic hyp ertrophy, hypothyroidism, skin cancer of the ears and arms, seasonal allergies. Surgical History: Right knee replacement in 12/21/2010, left knee replacement 03/08/2013. Current Medications: Tylenol, Norvasc, Lipitor, Maxipime, Santyl, Proscar, Lovenox, Amaryl, glucagon , Hyzaar, Januvia, Ditropan, vancomycin, Flomax. Review of Systems: A 10-point review was performed. Allergies: NO KNOWN DRUG ALLERGIES. Physical Examination: General: This is a 78-year-old male, lying in bed, not in acute cardiopulmonary distress. Vital Signs: Temperature 97.8, pulse 68, respirations 19, blood pressure 146/72. HEENT: Unremarkable. Neck: Supple. Lungs: Basal crackles. Heart: S1, S2. Regular. Abdomen: Soft, nontender. Bowel sounds present. Extremities: 2+ edema. Erythematous changes noted. Ulceration also noted at the plantar side, 3 x 2 cm with slough and granulation tissue noted. Laboratory Data: Shows WBC 8.6, down from 13.8 and hemoglobin 11.3, platelets 252. Chemistry shows sodium 135, potassium 4.3, chloride 103, bicarb 27, BUN 15, creatinine 1.8, glucose is 89. MRI shows left foot osteomyelitis of third, distal phalanx. Assessment And Plan: Osteomyelitis of left foot with diabetic foot ulcer, cellulitis of lower extrem ity. Continue IV antibiotic. Recommend to get hyperbaric treatment and IV antibiotics. We will du mmend [facility]. I spoke to the who agrees with [facility] for furthe r management of his case. We will follow the patient closely. NF/MODL Voice ID: [id number] Report ID: [id number]
== END 2018-11-09 18:26 | DRG 638 ==
LOC: ER 09:53 → ERHOLD 12:18 → 4TH 18:18
PROVIDERS: ADMIT Family Medicine; ATTEND Family Medicine
DX: E11.69 Type 2 diabetes mellitus with other specified complication (principal); M86.9 Osteomyelitis, unspecified; L03.115 Cellulitis of right lower limb; N17.9 Acute kidney failure, unspecified; E11.628 Type 2 diabetes mellitus with other skin complications; E11.65 Type 2 diabetes mellitus with hyperglycemia; E66.9 Obesity, unspecified; I10 Essential (primary) hypertension; N40.0 Benign prostatic hyperplasia without lower urinary tract symptoms; E03.9 Hypothyroidism, unspecified; E78.2 Mixed hyperlipidemia; Z68.35 Body mass index [BMI] 35.0-35.9, adult; Z79.82 Long term (current) use of aspirin; Z87.891 Personal history of nicotine dependence
CPT/HCPCS: 36415; 71045; 80048; 80053; 81003; 81015; 82962; 83605; 84145; 85025; 85652; 86140; 87040; 94760; 96365; 96367; 99285; J0692; J1650; J2543; J3370; J3590; J7030

== ENCOUNTER 2019-12-12 05:58 | Emergency (ER) | payer OTHER, MEDICARE ==
--- OUTSIDE RECORDS SUMMARY | 2019-12-12 06:00 | XMS REPORT | Clinical Summary ---
:[address] 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 Last Filed Vital Signs Not on file Plan of Treatment Not on file Procedures Procedure Name Priority Date/Time Associated Diagnosis Comme nts XR FOOT LEFT 3 VIEW Routine 11/30/2019 4:31 PM Abscess or R esults for this CDT cellulitis of toe, procedure are in left the results section. after 12/11/2018 Results XR foot 3 views left (11/30/2019 4:31 PM CDT) Specimen Narrative Performed At [facility] EXAM:RAD, FOOT, MIN 3 VIEWS, LEFT DATE: 11/30/2019 4:31 PM INDICATION: Abscess or cellulitis of toe, left (L03.032,L02.612) COMPARISON: None FINDINGS: Three views of the left foot show no dis placed fracture or dislocation. A posterior calcaneal enthe sophyte is noted. There is soft tissue swelling over the third toe with no underlying bony defect seen. There is extensive small ve ssel arterial calcification seen. IMPRESSION: No acute bony abnormality. Signed: Araceli Castaneda MD Report Verified Date/Time:12/03/2019 14:06:27 Reading Location: [facility] - B01.627 Procedure Note Interface, External Ris In - 12/03/2019 2:08 PM CDT FINAL REPORT EXAM: RAD, FOOT, MIN 3 VIEWS, LEFT DATE: 11/30/2019 4:31 PM INDICATION: Abscess or cellulitis of toe, left (L03.032,L02.612) COMPARISON: None FINDINGS: Three views of the left foot show no dis placed fracture or dislocation. A posterior calcaneal enthe sophyte is noted. There is soft tissue swelling over the third toe with no underlying bony defect seen. There is extensive small ve ssel arterial calcification seen. IMPRESSION: No acute bony abnormality. Signed: Araceli Castaneda MD Report Verified Date/Time: 12/03/2019 1 4:06:27 Reading Location: [facility] - B01.627 Performing Organization Address City/State/Zipcode Phone Number RIS after 12/11/2018 Insurance Payer Benefit Plan / Group Subscriber ID Type Phone A ddress MEDICARE MEDICARE A B xxxxxxxxxxx Medicare MCR SUPPLEMENT/INDIVIDUAL AARP/[facility] xxxxxxxxxxx [facility]
--- OUTSIDE RECORDS SUMMARY | 2019-12-12 06:01 | XMS REPORT | Continuity of Care Document ---
:1940 Author Organization [facility] t Address [address] [id number] Care Team Providers Name Role Phone Yoli Barber Primary Care Physician Antonio Frazier DPM Attending Clinician Yoli Barber NP Attending Clinician Tamra PEARSON Attending Clinician Payers Payer Name Policy Policy Number Effective Expiration Source Type Date Date MEDICAREMEDICARE A xxxxxxxxxxx [facility] MCR x[facility]xx [facility]INDIVIDUALAARP/UNITE [facility] Problems Condition Condition Condition Status Onset Resolution Last Treating Co mments Source Name Details Category Date Date Treatment Clinician Date Bilateral Bilateral Disease Active impacted impacted 07-14 Elmer o cerumen cerumen 00:00: n 00 Basal cell Basal cell Disease Active M D carcinoma carcinoma 07-14 Faheem rso of skin of of skin of 00:00: n left ear left ear 00 and and external external auricular 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 07-20 Elmer o Meniere Meniere 00:00: n disease disease 00 Basal cell Basal cell Disease Active 2015-06 M D carcinoma carcinoma 07-12 Faheem rso of skin of of skin of 00:00: n right ear right ear 00 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 07-12 Anderso hearing hearing 00:00: n loss, loss, 00 bilateral bilateral 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 07-12 Anderso sensorineu sensorineu 00:00: n 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 hearing loss loss Morbid Morbid Disease Active 2015-06 (severe) (severe) 07-03 Elmer o obesity obesity 00:00: n due to due to 00 excess excess calories calories Essential Essential Disease Active 2015-06 (primary) (primary) 07-03 Faheem rso hypertensi hypertensi 00:00: n on on Diabetes Diabetes Disease Active 2015-06 MD mellitus mellitus 07-03 Elmer o due to due to 00:00: n underlying underlying 00 condition condition with with complicati complicati on Hypothyroi Hypothyroi Disease Active 2015-06 M D dism dism 07-03 Anderso 00:00: n 00 Hyperlipid Hyperlipid Disease Active 2015-06 M D emia emia 07-03 Anderso 00:00: n 00 Alcohol Alcohol Disease Active 2015-06 use use 07-03 Anderso disorder, disorder, 00:00: n mild mild 00 Infectious Infectious Disease Active Overview : disease disease 06-13 infection Johnnie so 00:00: s due to n 00 cracks in feet/dry skin Disorder Disorder Disease Active Overview: of thyroid of thyroid 06-13 take An derso gland gland 00:00: thyroid n 00 rx 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 carcinoma carcinoma 00:00: helix n of skin of of skin of 00 ear ear Arthritis Arthritis Disease Active Overview: 06-13 from Anderso 00:00: injuries n 00 and old age Asbestosis Asbestosis Disease Active M D 06-13 Anderso 00:00: n 00 Diabetes Diabetes Disease Active Overview: mellitus mellitus 06-13 take meds And erso 00:00: but not n 00 on insulin Hypertensi Hypertensi Disease Active M D on 06-13 Anderso 00:00: n 00 Pneumonia Pneumonia Disease Active 06-13 Anderso 00:00: n 00 Open skull Open skull Disease Active Overview : fracture fracture slip and Faheem rso without without fall n intracrani intracrani al injury al injury Presence Presence Disease Active Overview: of other of other eack knee And erso specified specified has total n device device knee replaceme nts Allergies, Adverse Reactions, Alerts This patient has no known allergies or adverse reactions. Family History Family Member Diagnosis Comments Start Date Stop Date Source Natural father Coronary heart disease (CHD) MD Sherwood Natural father Heart disease MD Faheem rodriguez Natural mother -Breast cancer Social History Social Habit Start Date Stop Date Quantity Comments Source Sex Assigned At MD Payne on Alcohol intake 2017-08-31 2017-08-31 Current drinker MD Dulce curran 00:00:00 00:00:00 of alcohol (finding) Tobacco Comment 2016-04-27 2016-04-27 already quit 29 MD Antonio mederos 00:00:00 00:00:00 years ago History of tobacco 1959-06-16 1987-04-23 Current smoker MD Sherwood use 00:00:00 00:00:00 Smoking Status Start Date Stop Date Source Former smoker 2017-08-31 00:00:00 2017-08-31 00:00:00 MD Blair son Medications Ordered Filled Start Stop Current Ordering Indication Dosage Frequency Signature Comments Components Source Medication Medication Date Date Medication? Clinician (SIG) Name Name losartan-hy 2019 Yes 1{tbl} Take 1 MD drochloroth 4-10 tablet by And erso iazide 15:29: mouth n (HYZAAR) 45 daily. 100-25 mg per tablet multivitami Yes 1{tbl} Take 1 MD n 4-10 tablet by Anderso (multivitam 15:29: mouth n in) tab 45 daily. tablet loratadine Yes 10mg Take 10 mg M D (CLARITIN) 4-10 by mouth Johnnie so 10 mg 15:29: as needed n tablet 45 for allergies. magnesium 2019- Yes 500mg Take 500 MD oxide 500 4-10 mg by Anderso mg tablet 15:29: mouth n 45 twice daily. cyanocobala 2019- Yes 2500ug Take 2,500 MD min 4-10 mcg by Anderso (vitamin 15:29: mouth n B-12) 1000 45 daily. mcg tablet silodosin 2019- Yes 1{capsu Take 1 MD (RAPAFLO) 8 2-24 le} capsule by An derso mg capsule 00:00: mouth n 00 daily. amLODIPine 2019- Yes 1{tbl} Take 1 MD (NORVASC) 2-11 tablet by Johnnie so 2.5 mg 00:00: mouth n tablet 00 daily. dutasteride Yes 1{capsu Take 1 M D (AVODART) 2-11 le} capsule by Faheem rso 0.5 mg 00:00: mouth n capsule 00 daily. diltiazem Yes MD (CARDIZEM 3-06 Anderso LA) 360 mg 00:00: n 24 hr 00 tablet finasteride 2015-06 Yes 1{tbl} Take 1 MD (PROSCAR) 5 1-09 tablet by And erso mg tablet 00:00: mouth n 00 every evening. oxybutynin 2015-06 Yes 1{tbl} Take 1 MD (DITROPAN) 1-05 tablet by Faheem rso 5 mg tablet 00:00: mouth n 00 every evening. tamsulosin 2015-06 Yes 1{capsu Take 1 MD (FLOMAX) 0-30 le} capsule by Johnnie so 0.4 mg 24 00:00: mouth at n hr capsule 00 bedtime. simvastatin 2015-06 Yes 1{tbl} Take 1 MD (ZOCOR) 20 0-21 tablet by Faheem rso mg tablet 00:00: mouth n 00 daily. levothyroxi 2015-06 Yes 1{tbl} Take 1 MD ne 0-13 tablet by Anderso (SYNTHROID, 00:00: mouth n LEVOTHROID) 00 daily. 50 mcg tablet glimepiride Yes 1{tbl} Take 1 MD (AMARYL) 4 9-28 tablet by Faheem rso mg tablet 00:00: mouth n 00 twice daily. JANUVIA 50 Yes 1{tbl} Take 1 MD mg tablet 9-20 tablet by Johnnie so 00:00: mouth n 00 daily. metFORMIN Yes 1000mg 1,000 mg 2 MD (GLUCOPHAGE 5-24 (two) Anderso ) 1000 mg 00:00: times a n tablet 00 day with meals. Procedures Procedure Date / Time Performed Performing Clinician Sourc e XR FOOT LEFT 3 VIEW 2019-11-30 16:31:00 Karla Barber [facility] Encounters Start End Encounter Admission Attending Care Care Encounter Source Date/Time Date/Time Type Type Clinicians Facility Department ID 2019-12-07 2019-12-07 Office FELY Frazier [id number] 09:06:57 12:03:34 Visit Fransisco A AMBULATOR 350.1.13.21 Y 0.2.7.2.686 [id number] 2019-11-30 2019-11-30 Office FELY Frazier [id number] 13:57:09 15:42:09 Visit Fransisco A AMBULATOR 350.1.13.21 Y 0.2.7.2.686 [id number] 2019-11-16 2019-11-16 Office FELY Frazier [id number] 10:09:45 15:40:42 Visit Fransisco A AMBULATOR 350.1.13.21 Y 0.2.7.2.686 [id number] 2019-08-17 2019-08-17 Office FELY Frazier [id number] 10:00:59 12:27:10 Visit Fransisco A AMBULATOR 350.1.13.21 Y 0.2.7.2.686 [id number] 2019-07-16 2019-07-16 Office FELY Frazier [id number] 08:36:52 11:36:45 Visit Fransisco A AMBULATOR 350.1.13.21 Y 0.2.7.2.686 [id number] 2019-03-20 2019-03-21 Office FELY Frazier 1.2.840.114 [id number] 09:40:39 14:45:44 Visit Fransisco A AMBULATOR 350.1.13.21 Y 0.2.7.2.686 [id number] 2019-03-20 2019-03-20 Office FELY Barboza 1.2.840.114 [id number] 07:41:29 08:11:29 Visit Nel AMBULATOR 350.1.13.21 Y 0.2.7.2.686 [id number] [facility] 2019-03-06 2019-03-06 Office FELY Frazier [id number] 11:26:14 11:56:14 Visit Fransisco Alvarez AMBULATOR 350.1.13.21 Y 0.2.7.2.686 [id number] 2019-03-06 2019-03-06 Office FELY Barboza 1.2.840.114 [id number] 09:38:52 10:08:52 Visit Nel AMBULATOR 350.1.13.21 Y 0.2.7.2.686 [id number] 2019-02-21 2019-02-21 Office FELY Frazier 1.2.840.114 [id number] 11:09:51 13:35:52 Visit Fransisco Alvarez AMBULATOR 350.1.13.21 Y 0.2.7.2.686 [id number] 2019-02-21 2019-02-21 Office FELY Barboza 1.2.840.114 [id number] 09:36:32 10:06:32 Visit Nel AMBULATOR 350.1.13.21 Y 0.2.7.2.686 [id number] 2019-02-05 2019-02-05 Office FELY Barboza 1.2.840.114 [id number] 13:46:52 14:46:52 Visit Nel AMBULATOR 350.1.13.21 Y 0.2.7.2.686 [id number] 2019-02-05 2019-02-05 Office FELY Frazire 1.2.840.114 [id number] 11:23:12 11:53:12 Visit Fransisco Alvarez AMBULATOR 350.1.13.21 Y 0.2.7.2.686 [id number] Results Test Description Test Time Test Comments Results Result [facility] e Comments RAD, FOOT, MIN 3 2019-11-13 Reason for FINAL REPORT VIEWS, LEFT 2 Exam:->Abscess PATIENT ID: 14:06:00 or cellulitis [id number] EXAM: of toe, left RAD, FOOT, MIN 3 (L03.032,L02.61 VIEWS, LEFTDATE: 2) 11/30/2019 4:31 PM INDICATION: Abscess or cellulitis of toe, left (L03.032,L02.612) COMPARISON: None FINDINGS:Three views of the left foot show no displaced fracture or dislocation. A posterior calcaneal enthesophyte is noted. There is soft tissue swelling over the third toe with no underlying bony defect seen. There is extensive small vessel arterial calcification seen. IMPRESSION:No acute bony abnormality. Signed: Araceli Castaneda Verified Date/Time: 12/03/2019 14:06:27 Reading Location: [facility] Reading Room [address] [place] [address] foot 3 views 2019-11-2 Interface, External [facility] left 2 Ris In - 12/03/2019 - Med ical 14:06:00 2:08 PM [facility] Center REPORT EXAM: RAD, FOOT, MIN 3 VIEWS, LEFTDATE: 11/30/2019 4:31 PM INDICATION: Abscess or cellulitis of toe, left (L03.032,L02.612) COMPARISON: None FINDINGS:Three views of the left foot show no displaced fracture or dislocation. A posterior calcaneal enthesophyte is noted. There is soft tissue swelling over the third toe with no underlying bony defect seen. There is extensive small vessel arterial calcification seen. IMPRESSION:No acute bony abnormality. Signed: Araceli Castaneda Verified Date/Time: 12/03/2019 14:06:27 Reading Location: [facility] Reading Room [address] [address]
--- OUTSIDE RECORDS SUMMARY | 2019-12-12 06:01 | XMS REPORT | Summary of Care ---
:1940 Author Organization [facility] [place] [address] Care Team Providers Name Role Phone Robina Lucero MD Primary Care Provider Reason for Visit Reason Comments Follow Up Diabetic foot care/nail trim Nail Problem [place] Encounter Details Date Type Department Care Team Description [facility] Vascular DPM foot care/nail trim); Surgery [address] [facility] Nail Problem; [address] [facility] [address] [place] [address], [address] [place] [address] [place], [place] [phone] [phone] Allergies Active Allergy Reactions Severity Noted Date Comments Sulfa Antibiotics Hives Medium 04/30/2019 documented as of this encounter (statuses as of 11/28/2019) Medications Medication Sig Dispensed Refills Start Date End Date Status amlodipine Take by 0 01/17/2019 Active (NORVASC) 2.5 MG mouth daily. tablet Diltiazem HCl Take by 0 01/17/2019 Activ e Coated Beads 360 mouth daily. MG TB24 glimepiride Take 4 mg by 0 11/18/2018 Acti ve (AMARYL) 4 MG mouth two tablet times daily. levothyroxine Take 100 mcg 0 11/18/2018 Ac tive (SYNTHROID) 100 by mouth MCG tablet daily. losartan-hydrochlo Take by 0 01/22/2019 Active rothiazide mouth daily. (HYZAAR) 100-25 MG per tablet oxybutynin Take 5 mg by 0 01/17/2019 Activ e (DITROPAN) 5 MG mouth daily. tablet simvastatin Take 20 mg by 0 11/26/2018 Act woodrow (ZOCOR) 20 MG mouth daily. tablet Tamsulosin HCl 0.4 Take 0.4 mg 0 01/22/2019 Active MG CAPS by mouth daily. metformin Take 1,000 mg 0 Active (GLUCOPHAGE) 1000 by mouth 2 MG tablet times daily (with meals). Sitagliptin Take 100 mg 0 Active Phosphate by mouth (JANUVIA) 100 MG every TABSIndications: morning. take 1/2 every Indications: morning take 1/2 every morning Vitamins A & D Apply to 1 Tube 2 02/21/2019 Acti ve (SWEEN) affected area CREAIndications: twice daily. Right foot infection mupirocin Apply to 1 Tube 1 02/21/2019 Discontin ued (BACTROBAN) 2 % affected area 0 (*Therapy ointmentIndication daily. c ompleted) s: Right foot infection mupirocin calcium Apply to 1 Tube 0 04/24/2019 D iscontinued (BACTROBAN) 2 % wound in R 0 (*T herapy nasal ointment leg, twice a co mpleted) day documented as of this encounter (statuses as of 11/28/2019) Active Problems Problem Noted Date DM type 2 with diabetic peripheral neuropathy (HCCode) 11/16/2019 Hyperkeratosis of sole 11/16/2019 Hyperkeratosis of skin 11/16/2019 Callus of foot 11/16/2019 Blood blister 07/16/2019 Cellulitis of right lower leg 06/18/2019 Onychomycosis 06/18/2019 Cellulitis and abscess of right lower extremity 2018 Healed ulcer of right foot on examination 05/08/2019 Diabetes mellitus due to underlying condition with uns pecified 05/03/2016 complications (HCCode) documented as of this encounter (statuses as of 11/28/2019) Social History Tobacco Use Types Packs/Day Years Used Date Former Smoker Smokeless Tobacco: Never Used Alcohol Use Drinks/Week oz/Week Comments Not Currently Sex Assigned at Date Recorded Male 11/15/2019 9:37 AM CDT Job Start Date Occupation Industry Not on file Not on file Not on file Travel History Travel Start Travel End No recent travel history available. COVID-19 Exposure Response Date Recorded In the last month, have you been in contact with No / Unsure 11/16/2019 10:09 AM CDT someone who was confirmed or suspected to have Coronavirus / COVID-19? documented as of this encounter Last Filed Vital Signs Vital Sign Reading Time Taken Comments Blood Pressure 140/64 11/16/2019 11:00 AM CDT Pulse 42 11/16/2019 11:00 AM CDT Temperature - - Respiratory Rate - - Oxygen Saturation - - Inhaled Oxygen Concentration - - Weight 122.5 kg (270 lb) 11/16/2019 11:00 AM CDT Height 185.4 cm (6' 1") 11/16/2019 11:00 AM CDT Body Mass Index 35.62 11/16/2019 11:00 AM CDT documented in this encounter Patient Instructions Patient Kizzy Foote CMA - 11/16/2019 12:29 PM CDTThank you for choosing [facility]. You may receive a survey in the mail. Please provide comments to let us know how we can improve our patient care. Patient will follow up in 8 weeks. Fransisco Frazier DPM, FACFAS [employer] Division of Vascular Surgery and Endovascular Therapy If you have any questions, please feel free to call us at: Your Body mass index is 35.62 kg/m. Body mass index (BMI) can help you see if your weight is raising your risk for health problems. It uses a formula to compare how much you weigh with how tall you are. A BMI between 18.5 and 24.9 is considered healthy. A BMI between 25 and 29.9 is considered overweight. A BMI of 30 or higher is considered obese. If your BMI is in the normal range, it means that you have a lower risk for weight-related health problems. If your BMI is in the overweight or obese range, you may be at increased risk for weight-related health problems, such as high blood pressure, heart disease, stroke, arthritis or joint pain, anddiabetes. BMI is just one measure of your risk for weight-related health problems. You may be at higher risk for health problems if you are not active, you eat an unhealthy diet, or you drink too much alcohol oruse tobacco products. Follow-up care is a moreno part of your treatment and safety. Be sure to make and go to all appointments, and call your doctor if you are having problems. It's also a good idea to know your test results and keep a list of the medicines you take. How can you care for yourself at home? Practice healthy eating habits. This includes eating plenty of fruits, vegetables, whole grains, lean protein, and low-fat dairy. Get at least 30 minutes of exercise 5 days a week or more. Brisk walking is a good choice. You also may want to do other activities, such as running, swimming, cycling, or playing tennis or team sports. Do not smoke. Smoking can increase your risk for health problems. If you need help quitting, talkto your doctor about stop-smoking programs and medicines. These can increase your chances of quitting for good. Limit alcohol Where can you learn more? Go to www.[employer]st. [employer] Go to the Search tab with the magnifying glass on the right side of [employer] home page. Enter S176 in the search box to learn more about "Body Mass Index: Care Instructions." documented in this encounter Progress Notes Karla Barber FNPC - 11/16/2019 11:00 AM CDT Subjective: Cole Jeffrey is a 79 y.o. male that presents today for follow-up evaluation and management of painful, onychomycotic, incurvated, inflamed, elongated, dystrophic, and discolored nails #1-10 bilaterally in need of debridement. He is unable to trim his own nails. Patient states his symptoms are present daily and made worse with shoe gear. He also presents with loosened right 2nd digit nail, hyperkeratosis of plantar right 2nd, 3rd, and left 2nd and 3rd distal digit. He mentions a lesion to his right anterior tibial region. He denies any additional complaints today. No results found for: HGBA1C. No new complaints. he denies any nausea, vomiting, fever, or chills. Past Medical History: Diagnosis Date Abnormal maternal glucose tolerance, complicating Arthritis High cholesterol Hypertension Skin cancer Thyroid disorder Past Surgical History: Procedure Laterality Date HX TOTAL KNEE REPLACEMENT Objective: BP 140/64 | Pulse (!) 42 | Ht 6' 1" (1.854 m) | Wt 270 lb (122.5 kg) | BMI 35.62 kg/m General: Patient is alert, responsive, NAD Lower Ext: Derm: Painful, onychomycotic, incurvated, inflamed, elongated, dystrophic, and discolored nails#1-10 bilaterally in need of debridement. Loosened right 2nd digit nail, hyperkeratosis of plantar right 2nd, 3rd, and left 2nd and 3rd distal digit. Closed blister to his right anterior tibial region. Vasc: Pedal pulses are palpable bilateral lower extremity. CFT < 3 sec bilateral. Neuro: Protective threshold is not intact bilateral. Mus/Ske: Muscle strength 3-4/5 bilateral. Range of motion decreased to bilateral lower extremities. Bilateral foot digital contractures. Mallet toes, bilateral 2nd digits. Psych: Mood normal, affect normal, concentration normal Diabetic Foot Exam: Performed Inspection: Painful, onychomycotic, incurvated, inflamed, elongated, dystrophic, and discolored nails #1-10 bilaterally in need of debridement. Loosened right 2nd digit nail, hyperkeratosis of plantarright 2nd, 3rd, and left 2nd and 3rd distal digit. Closed blister to his right anterior tibial region. Pulses: Left posterior tibial 1, Left dorsalis pedis 2, Right posterior tibial 1 and Right dorsalis pedis 2 Monofilament Exam: Diminished sensation to bilateral LE on monofilament exam. Assessment and Plan: 1. Onychomycosis 2. Loosened right 2nd digit nail 3. Hyperkeratosis of plantar right 2nd, 3rd, and left 2nd and 3rd distal digit 4. Closed blister to his right anterior tibial region 5. Mallet toes, bilateral 2nd digits 1. Sharp, manual debridement of painful, onychomycotic, incurvated, inflamed, elongated, dystrophic,and discolored nails #1-10 bilaterally. 2.Sharp, manual debridement of the right 2nd digit nail. Nail avulsed. 3. Sharp, manual debridement of hyperkeratosis of plantar right 2nd, 3rd, and left 2nd and 3rd distal digit. Applied mupirocin and bandaid to right 2nd distal digit. Encouraged to continue at home daily. 4. Encouraged to keep blister clean and dry. May apply mupirocin and bandaid. Do not pop on own. 5. Planning for surgical correction in upcoming weeks. Findings were discussed with the patient and all questions were answered. F/u 6-8 weeks ROLAN Tinoco [facility] Division of Vascular Surgery and Podiatry I personally examined , and performed sharp debridement of all nails, bilateral , Nail avulsion of 2nd digit, right,and sharp debridement of hyperkeratotic lesions , bilateral, and was present for theevaluation and treatment of patient Cole Jeffrey I concur with the examination, findings, procedures, and documentation on patient Cole Jeffrey by Kaela Tinoco DPM [employer] [facility] Rafal Luciano Department of Surgery Division of Vascular Surgery and Endovascular Therapy documented in this encounter Plan of Treatment Date Type Specialty Care Team Description 2020 Office Visit Vascular Surgery Fransisco Frazier DPM [address] [address] [phone] Name Type Priority Associated Diagnoses Order S chedule IA DEBRIDEMENT OPEN IA Charge Routine Hyperkeratos is of sole Ordered: WOUND 20 SQ CM< Hyperkeratosis o f skin 11/16/2019 Callus of foot IA DEBRIDEMENT OF NAILS, IA Charge Routine Onychomycosis Or dered: 6 OR MORE 11/16/2019 IA REMOVAL OF NAIL PLATE IA Charge Routine DM type 2 with d iabetic Ordered: peripheral neuropathy 2019 (HCCode) Diabetes mellitus due to underlying condition with unspecified complications (H CCode) Controlled type 2 diabetes mellitus with diabetic neuropathy, without long-term current use of insulin (HCCode) Ingrown nail of second toe of right kimo t Onycholysis of toenail IA DEBRIDEMENT OF NAILS, IA Charge Routine Onychom ycosis Ordered: 6 OR MORE DM type 2 with diabetic 11/11 peripheral neuropathy (HCCode) Diabetes mellitus due to underlying condition with unspecified complications (H CCode) Controlled type 2 diabetes mellitus with diabetic neuropathy, without long-term current use of insulin (HCCode) Ingrown left greater toenail Pain around toenail, left foot Pain around toenail, right foot IA TRIM BENIGN IA Charge Routine DM type 2 with diabetic Or dered: HYPERKERATOTIC SKIN peripheral neuropathy 11/28/2019 LESION,2-4 (HCCode) Hyperkeratosis o f sole Hyperkeratosis o f skin Callus of foot Diabetes mellitus due to underlying condition with unspecified complications (H CCode) Controlled type 2 diabetes mellitus with diabetic neuropathy, without long-term current use of insulin (HCCode) Health Maintenance Due Date Last Done Comments TETANUS SHOT (ADULT) 1954 ANNUAL DIABETIC FOOT EXAM 1957 ANNUAL DIABETIC RETINOPATHY SCREENING 1957 FALL SCREEN 01/08/2004 PNEUMOVAX >=65 (PPSV23) 01/08/2004 MEDICARE AWV (Initial) 06/13/2018 FLU VACCINE > 6 MONTHS 01/12/2020 03/21/2019 BMI FOLLOW UP PLAN 11/15/2020 11/16/2019 documented as of this encounter Results Not on filedocumented in this encounter Visit Diagnoses Diagnosis Onycholysis of toenail - Primary Other specified disease of nail Blood blister Vascular disorder of skin Onychomycosis Dermatophytosis of nail DM type 2 with diabetic peripheral neuro armin (HCCode) Type II or unspecified type diabetes jannet litus with neurological manifestations, not stated as uncontrolled Hyperkeratosis of sole Acquired keratoderma Hyperkeratosis of skin Acquired keratoderma Callus of foot Corns and callosities Increased BMI (body mass index) Diabetes mellitus due to underlying cond ition with unspecified complications (HCCode) Controlled type 2 diabetes mellitus with diabetic neuropathy, without long-term current use of insulin (HCCode) Ingrown left greater toenail Ingrowing nail Ingrown right greater toenail Ingrowing nail Pain around toenail, left foot Pain around toenail, right foot Ingrown nail of second toe of right foot documented in this encounter Insurance Payer Benefit Plan / Subscriber ID Effective Phone Address T ype Group Dates MEDICARE MEDICARE PART A xxxxxxxxxxx 2019-Prese [address] - MEDICARE nt [id number] [place] [address] [facility] MEDICARE xxxxxxxxxxx 2018-Prese [address] [address] Medicare [place] [address] documented as of this encounter
--- OUTSIDE RECORDS SUMMARY | 2019-12-12 06:02 | XMS REPORT | Summary of Care ---
:1940 Author Organization [facility] [place] [address] Care Team Providers Name Role Phone Robina Lucero MD Primary Care Provider Reason for Referral Radiology Services (Routine) Status Reason Specialty Diagnoses / Procedures Referred By Anayeli solorio Referred To Contact Pending Radiology Diagnoses Abscess or cellulitis of toe, left Sunil, Karla Bc General Imaging Procedures XR FOOT LEFT (COMPLETE) [place] [facility] [address] [facility] [address] [place], [place] [address] [address] [place], [place] [phone] Fax: Radiology Services (Routine) Status Reason Specialty Diagnoses / Procedures Referred By Anayeli solorio Referred To Contact Pending Radiology Diagnoses Abscess or cellulitis of toe, left Sunil, Karla Radiology, [place] Procedures XR FOOT LEFT (COMPLETE) [place] [address] [place] [address] [address] [place] [address] Reason for Visit Reason Comments Follow Up bilateral ulcer Encounter Details Date Type Department Care Team Description [facility] Vascular DPM ulcer) Surgery [address] [place] [facility] [address] [facility] [address] 6[address] Floor, [address] [phone] [address] [phone] Allergies Active Allergy Reactions Severity Noted Date Comments Sulfa Antibiotics Hives Medium 04/30/2019 documented as of this encounter (statuses as of 12/09/2019) Medications Medication Sig Dispensed Refills Start Date End Date Status amlodipine (NORVASC) Take by mouth 0 01/17/2019 Active 2.5 MG tablet daily. Diltiazem HCl Coated Take by mouth 0 01/17/2019 Active Beads 360 MG TB24 daily. glimepiride (AMARYL) Take 4 mg by mouth 0 11/18/2018 Active 4 MG tablet two times daily. levothyroxine Take 100 mcg by 0 11/18/2018 Active (SYNTHROID) 100 MCG mouth daily. tablet losartan-hydrochloro Take by mouth 0 01/22/2019 Active thiazide (HYZAAR) daily. 100-25 MG per tablet oxybutynin Take 5 mg by mouth 0 01/17/2019 Active (DITROPAN) 5 MG daily. tablet simvastatin (ZOCOR) Take 20 mg by 0 11/26/2018 Active 20 MG tablet mouth daily. Tamsulosin HCl 0.4 Take 0.4 mg by 0 01/22/2019 Active MG CAPS mouth daily. metformin Take 1,000 mg by 0 Act woodrow (GLUCOPHAGE) 1000 MG mouth 2 times tablet daily (with meals). Sitagliptin Take 100 mg by 0 Act woodrow Phosphate (JANUVIA) mouth every 100 MG morning. TABSIndications: Indications: take take 1/2 every 1/2 every morning morning Vitamins A & D Apply to affected 1 Tube 2 02/21/2019 Active (SWEEN) area twice daily. CREAIndications: Right foot infection amoxicillin-clavulan amoxicillin 875 mg-potassium clavulanate 125 mg tablet 0 Active ate (AUGMENTIN) Take 1 tablet every 12 hours by oral route for 7 days . 875-125 MG per tablet ciprofloxacin Take 1 Tab by 20 Tab 0 11/30/2019 12/07/2019 (CIPRO) 500 MG mouth two times tablet daily for 7 days. documented as of this encounter (statuses as of 12/09/2019) Active Problems Problem Noted Date Mallet toe of right foot 12/03/2019 DM type 2 with diabetic peripheral neuropathy (HCCode) 11/16/2019 Hyperkeratosis of sole 11/16/2019 Hyperkeratosis of skin 11/16/2019 Callus of foot 11/16/2019 Blood blister 07/16/2019 Cellulitis of right lower leg 06/18/2019 Onychomycosis 06/18/2019 Abscess or cellulitis of toe, left 05/08/2019 Healed ulcer of right foot on examination 05/08/2019 Diabetes mellitus due to underlying condition with uns pecified 05/03/2016 complications (HCCode) documented as of this encounter (statuses as of 12/09/2019) Social History Tobacco Use Types Packs/Day Years [...] been in contact with No / Unsure 12/07/2019 9:06 AM CDT someone who was confirmed or suspected to have Coronavirus / COVID-19? documented as of this encounter Last Filed Vital Signs Vital Sign Reading Time Taken Comments Blood Pressure 129/73 11/30/2019 2:34 PM CDT Pulse 60 11/30/2019 2:34 PM CDT Temperature - - Respiratory Rate - - Oxygen Saturation - - Inhaled Oxygen Concentration - - Weight 122 kg (269 lb) 11/30/2019 2:34 PM CDT Height 185.4 cm (6' 1") 11/30/2019 2:34 PM CDT Body Mass Index 35.49 11/30/2019 2:34 PM CDT documented in this encounter Patient Instructions Patient InstructionsKizzy Spencer CMA - 11/30/2019 3:35 PM CDTThank you for choosing [facility]. You may receive a survey in the mail. Please provide comments to let us know how we can improve our patient care. Patient will follow up in 10 days. Fransisco Frazier DPM, FACFAS [employer] Division of Vascular Surgery and Endovascular Therapy If you have any questions, please feel free to call us at: documented in this encounter Progress Notes Karla Barber FNPC - 11/30/2019 2:00 PM CDT Subjective: Cole Jeffrey is a 79 y.o. male that presents today for follow-up evaluation and management of left 3rd digit erythema, edema, and ecchymosis. Since last office visit, patient reports being treated with Augmentin x 1 week for UTI. A day before prescription antibiotic, he notes 3rd digit erythema, edema, and ecchymosis. He denies increased pain, open wound/lesion, fever, or chills. He also presents with callus of right plantar 2nd digit in need of debridement. Mr. Jeffrey has a history of hammertoe of left 3rd digit and mallet toe of right 2nd digit. He denies any additional complaints today. No results found for: HGBA1C. No new complaints. he denies any nausea, vomiting, fever, or chills. Past Medical History: Diagnosis Date Abnormal maternal glucose tolerance, complicating Arthritis High cholesterol Hypertension Skin cancer Thyroid disorder Past Surgical History: Procedure Laterality Date HX TOTAL KNEE REPLACEMENT Objective: BP 129/73 | Pulse 60 | Ht 6' 1" (1.854 m) | Wt 269 lb (122 kg) | BMI 35.49 kg/m General: Patient is alert, responsive, NAD Lower Ext: Derm: No open lessions or macerations. Cellulitis of left 3rd digit; erythema, edema, and ecchymosis. Callus of the plantar 2nd digit, right foot. Vasc: Pedal pulses are palpable bilateral lower extremity. CFT < 3 sec bilateral. Neuro: Protective threshold is not intact bilateral. Mus/Ske: Muscle strength 4/5 bilateral. Range of motion decreased to bilateral lower extremities. Bilateral foot digital contractures. Hammertoe of left 3rd digit and mallet toe of right 2nd digit. Psych: Mood normal, affect normal, concentration normal Diabetic Foot Exam: Performed Inspection: No open lessions or macerations. Cellulitis of left 3rd digit; erythema, edema, and ecchymosis. Callus of the plantar 2nd digit, right foot. Pulses: Left posterior tibial 1, Left dorsalis pedis 2, Right posterior tibial 1 and Right dorsalis pedis 2 Monofilament Exam: Diminished sensation to bilateral LE on monofilament exam. Assessment and Plan: 1. Cellulitis of left 3rd digit 2. Callus of the plantar 2nd digit, right foot 3. Hammertoe of left 3rd digit 4. Mallet toe of right 2nd digit 1. Continue Augmentin course prescribed for UTI. Prescribed Ciprofloxacin x 7 days for gram negativecoverage. Encouraged patient to notify us sooner if he begins to experience any new or changes in symptoms or wounds, including increased pain, erythema, edema, exudate, malodor, numbness, tingling, coolness, warmth, etc. Patient verbalized understanding. 2. With the use of a sharp and sterile #15 blade, the plantar 2nd digit callus site of the right foot was sharply debrided down. 3. Discussed future surgical correction of hammertoe and mallet toe. Patient will notify when ready to proceed in upcoming weeks. Findings were discussed with the patient and all questions were answered. F/u 7-10 days ROLAN Tinoco [facility] Division of Vascular Surgery and Podiatry I personally examined , And performed wound care, and evaluated cellulitis, 3rd digit, left foot, And sharp debridement of hyperkeratosis distal 2nd digit, right and discussed possible hammer toe andmallet toe surgical correction, and was present for the evaluation and treatment of patient Cole Jeffrey I concur with the examination, findings, procedures, and documentation on Payton Jeffrey by Karla Barber N.P. Fransisco Frazier DPM [employer] [facility] Rafal Luciano Department of Surgery Division of Vascular Surgery and Endovascular Therapy documented in this encounter Plan of Treatment Date Type Specialty Care Team Description 12/17/2019 Office Visit Vascular Surgery Fransisco Frazier DPM [address] [address] 0 [phone] Name Type Priority Associated Diagnoses Order S chedule XR FOOT LEFT (COMPLETE) Imaging Routine Abscess or cellul itis 1 Occurrences of toe, left starting 2019 until 1 XR FOOT LEFT (COMPLETE) Imaging Routine Abscess or cellul itis 1 Occurrences of toe, left starting 2019 until 1 MN DEBRIDEMENT OPEN MN Charge Routine Callus of foot Ordere d: 12/03/2019 WOUND 20 SQ CM< MN TRIM HYPERKERATOTIC MN Charge Routine Abscess or celluli tis Ordered: 12/09/2019 SKIN LESION, ONE of toe, left Callus of foot Hammertoe of lef t foot Mallet toe of right foot DM type 2 with diabetic peripheral neuropathy (HCCo de) Hyperkeratosis o f sole Hyperkeratosis o f skin Diabetes mellitus due to underlying condition with unspecified complications (H CCode) Controlled type 2 diabetes mellitus with diabetic neuropathy, without long-term current use of insulin (HCCode) Cellulitis and abscess of toe of left foot Health Maintenance Due Date Last Done Comments TETANUS SHOT (ADULT) 1955 ANNUAL DIABETIC FOOT EXAM 1958 ANNUAL DIABETIC RETINOPATHY SCREENING 1958 FALL SCREEN 01/08/2004 MEDICARE AWV (Initial) 06/13/2018 FLU VACCINE > 6 MONTHS 01/12/2020 03/21/2019 BMI FOLLOW UP PLAN 11/15/2020 11/16/2019 PNEUMOVAX >=65 (PPSV23) Completed 06/13/2015 documented as of this encounter Results Not on filedocumented in this encounter Visit Diagnoses Diagnosis Cellulitis and abscess of toe of left fo ot - Primary Abscess or cellulitis of toe, left Callus of foot Corns and callosities Hammertoe of left foot Mallet toe of right foot DM type 2 with diabetic peripheral neuro armin (HCCode) Type II or unspecified type diabetes jannet litus with neurological manifestations, not stated as uncontrolled Hyperkeratosis of sole Acquired keratoderma Hyperkeratosis of skin Acquired keratoderma Diabetes mellitus due to underlying cond ition with unspecified complications (HCCode) Controlled type 2 diabetes mellitus with diabetic neuropathy, without long-term current use of insulin (HCCode) documented in this encounter Insurance Payer Benefit Plan / Subscriber ID Effective Phone Address T ype Group Dates MEDICARE MEDICARE PART A xxxxxxxxxxx 2019-Prese [address] - MEDICARE nt [id number] [place] [address] UNITED AARP MEDICARE xxxxxxxxxxx 2018-Prese [address] [address] Medicare HE[place] [address] documented as of this encounter
--- OUTSIDE RECORDS SUMMARY | 2019-12-12 06:02 | XMS REPORT | Summary of Care ---
:1940 Author Organization [facility] [place] [address] Care Team Providers Name Role Phone Robina Lucero MD Primary Care Provider Reason for Visit Reason Comments Follow Up Encounter Details Date Type Department Care Team Description 12/07/2019 Office Visit [facility] Fransisco Frazier DPM Follow Up Vascular Surgery [address] [place] [address] [address] 6[address] Floor, [address] [place], [place] [address] [place] [phone] Allergies Active Allergy Reactions Severity Noted Date Comments Sulfa Antibiotics Hives Medium 04/30/2019 documented as of this encounter (statuses as of 12/11/2019) Medications Medication Sig Dispensed Refills Start Date [...] as of this encounter (statuses as of 12/11/2019) Active Problems Problem Noted Date Mallet toe [...] as of this encounter (statuses as of 12/11/2019) Social History Tobacco Use Types Packs/Day Years [...] Sign Reading Time Taken Comments Blood Pressure 140/58 12/07/2019 10:49 AM CDT Pulse 47 12/07/2019 10:49 AM CDT Temperature - - Respiratory Rate - - Oxygen Saturation - - Inhaled Oxygen Concentration - - Weight 122 kg (269 lb) 12/07/2019 10:49 AM CDT Height 185.4 cm (6' 1") 12/07/2019 10:49 AM CDT Body Mass Index 35.49 12/07/2019 10:49 AM CDT documented in this encounter Patient Instructions Patient InstructionsKizzy Spencer CMA - 12/07/2019 11:48 AM CDTThank you for choosing [facility]. You may receive a survey in the mail. Please provide comments to let us know how we can improve our patient care. Patient will follow up in 12 days with . Fransisco Frazier DPM, FACFAS [employer] Person Division of Vascular Surgery and Endovascular Therapy If you have any questions, please feel free to call us at: documented in this encounter Progress Notes Fransisco Frazier DPM - 12/07/2019 10:00 AM CDTSubjective: Cole Jeffrey is a 79 y.o. male that presents today for follow-up evaluation of and management of left 3rd digit erythema, [...] denies any nausea, vomiting, fever, or chills. Objective: BP 140/58 | Pulse (!) 47 | Ht 6' 1" (1.854 m) | Wt 269 lb (122 kg) | BMI 35.49 kg/m General: Patient is alert, responsive, NAD Lower Ext: Derm: No open lessions or macerations Vasc: Pedal pulses are palpable bilateral lower extremity. CFT < 3 sec bilateral. Neuro: Protective threshold is not intact bilateral. Mus/Ske: Muscle strength 5/5 bilateral. Range of motion within normal limits. Psych: Mood normal, affect normal, concentration normal Diabetic Foot Exam: Performed Inspection: No open lessions or macerations. Cellulitis of left 3rd digit; erythema,edema, and ecchymosis. Callus of the plantar 2nd digit, right foot. Pulses: Left posterior tibial 1, Left dorsalis pedis 2, Right posterior tibial 1 and Right dorsalis pedis 2 Monofilament Exam: Diminished sensation to bilateral LE on monofilament exam. Assessment and Plan: Assessment and Plan: 1. Cellulitis of left 3rd digit 2. Callus of the plantar 2nd digit, right foot 3. Hammertoe of left 3rd digit 4. Mallet toe of right 2nd digit 1. Augmentin course prescribed for UTI, completed. Prescribed Ciprofloxacin x 7 days for gram negative coverage. Encouraged patient to notify us sooner if [...] the patient and all questions were answered. Fransisco Frazier DPM [employer] [facility] Rafal Harmon Department of Surgery Division of Vascular Surgery and Endovascular Therapy documented in this encounter Plan of Treatment Date Type Specialty Care Team Description 12/17/2019 Office Visit Vascular Surgery Fransisco Frazier DPM [address] [facility] [address] [place], [place] [address] [phone] Name Type Priority Associated Diagnoses Order S chedule GA TRIM BENIGN GA Charge Routine Abscess or cellulitis Orde red: HYPERKERATOTIC SKIN of toe, left 12/11/2019 LESION,2-4 Callus of foot Hammertoe of lef t foot Mallet toe of right foot DM type 2 with diabetic peripheral neuropathy (HCCode) Hyperkeratosis o f sole Hyperkeratosis o f skin Diabetes mellitus due to underlying condition with unspecified complications (H CCode) Controlled type 2 diabetes mellitus with diabetic neuropathy, without long-term current use of insulin (HCCode) Visit for wound check Health Maintenance Due Date Last Done Comments TETANUS SHOT (ADULT) 1955 ANNUAL DIABETIC FOOT EXAM 1957 ANNUAL DIABETIC RETINOPATHY SCREENING 1957 FALL SCREEN 01/08/2004 MEDICARE AWV (Initial) 06/13/2018 FLU VACCINE > 6 MONTHS 01/12/2020 03/21/2019 BMI FOLLOW UP PLAN 11/15/2020 11/16/2019 PNEUMOVAX >=65 (PPSV23) Completed 06/13/2015 documented as of this encounter Results Not on filedocumented in this encounter Visit Diagnoses Diagnosis Abscess or cellulitis of toe, left - Yoko ivis Callus of foot Corns and callosities Hammertoe [...] without long-term current use of insulin (HCCode) Visit for wound check Encounter for other specified aftercare documented in this encounter Insurance Payer Benefit Plan / Subscriber ID Effective Phone Address T ype Group Dates MEDICARE MEDICARE PART A xxxxxxxxxxx 2019-Prese [address] - MEDICARE nt [id number] [place] [address] UNITED AARP MEDICARE xxxxxxxxxxx 2018-Prese [address] [address] Medicare [place] [address] documented as of this encounter
[2019-12-12 07:23] LABS: Absolute Lymphocytes (CBC) 1.1 K/uL (0.7-4.9); Basophils % 0.3 % (0-1.3); Hematocrit 38.4 % (39.6-49.0); MPV 8.4 fL (7.6-11.3)
[2019-12-12 07:33] LABS: Albumin 3.5 g/dL (3.4-5.0); Bilirubin Direct 0.2 mg/dL (0-0.2); Bilirubin Total 0.9 mg/dL (0.2-1.0); Potassium 3.9 mmol/L (3.5-5.1); Protein, Total 6.8 g/dL (6.4-8.2)
[2019-12-12 07:43] LABS: Urine Blood NEGATIVE (NEG); Urine Glucose NEGATIVE (NEG); Urine Protein 2+ (NEG); Urine Specific Gravity 1.025 (1.005-1.030)
[2019-12-12 08:17] LABS: Urine Bacteria <20 /HPF (NONE SEEN); Urine Culture Reflex Order NOT NEEDED; Urine RBC <5 /HPF (NONE SEEN)
--- NOTE | 2019-12-12 08:34 | RAD REPORT ---
EXAM DESCRIPTION: CT - Stone Protocol - 12/12/2019 7:30 am CLINICAL HISTORY: Flank pain. urinary retention COMPARISON: No comparisons TECHNIQUE: Axial images were obtained without oral or IV contrast. Lack of contrast limits solid org an and vascular assessment. The [id number] spans the entirety of the system partially obscuring uppermost abdomen and lung bases. Coronal reformatted images were obtained and reviewed. All CT scans are performed using dose optimization technique as appropriate and may include automated exposure control or mA/KV adjustment according to patient size. FINDINGS: The lower lung boggs are clear. Imaged portions of the liver and spleen show no suspicious findings on non-contrast imaging. The panc reas and adrenal glands are normal. No pathologic lymphadenopathy in the abdomen or pelvis. No urinary tract stones or obstructive uropathy. No bowel obstruction, free air, free fluid or abscess. Normal appendix noted.Prominent rectosigmoid f ecal retention. Mild degenerative lumbar spondylosis. Small fat containing inguinal hernias. IMPRESSION: No urinary tract stones or obstructive uropathy. Prominent rectosigmoid fecal retention. 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
--- NOTE | 2019-12-12 09:07 | ER ---
Nurse's Notes [facility] Name: Cole Jeffrey Age: 79 yrs Sex: Male : 1940 Arrival Date: 12/12/2019 Time: 06:00 Bed 7 Private MD: Diagnosis: Retention of urine;Fecal impaction Presentation: 12/11 06:23 Chief complaint: Patient states: I cannot pee started 12-16 hours ago and I feel rr5 constipated started 2 days ago. I took miralax but just water small in amount coming out. Coronavirus screen: Proceed with normal triage. Ebola Screen: Patient negative for fever greater than or equal to 101.5 degrees Fahrenheit, and additional compatible Ebola Virus Disease symptoms Patient denies exposure to infectious person. Patient denies travel to an Ebola-affected area in the 21 days before illness onset. Initial Sepsis Screen: Does the patient meet any 2 criteria? Does the patient have a suspected source of infection? No. Patient's initial sepsis screen is negative. Risk Assessment: Do you want to hurt yourself or someone else? Patient reports no desire to harm self or others. Onset of symptoms was December 10, 2019. 06:23 Method Of Arrival: Wheelchair rr5 06:23 Acuity: JOSE F 3 rr5 Historical: - Allergies: 06:26 No Known Allergies; rr5 - Home Meds: 06:25 amlodipine 2.5 mg tab once daily [Active]; Cialis 2.5 mg Oral tab 1 tab once daily rr5 [Active]; fluticasone [Active]; furosemide 20 mg Oral tab 1 tab as needed [Active]; glimepiride 4 mg Oral tab 1 tab once daily [Active]; glimepiride 4 mg Oral tab 1 tab once daily [Active]; Januvia 100 mg Oral tab 1 tab once daily [Active]; levothyroxine 100 mcg tab 1 tab once daily [Active]; losartan-hydrochlorothiazide 100-25 mg Oral tab 1 tab once daily [Active]; magnesium oxide 500 mg Oral tab [Active]; Matzim LA 360 mg Oral Tb24 1 tab once daily [Active]; metformin 1,000 mg Oral tab 1 tab 2 times per day [Active]; oxybutynin chloride 5 mg Oral tr24 1 tab once daily [Active]; Proscar 5 mg Oral tab 1 tab once daily [Active]; simvastatin 20 mg Oral tab 1 tab once daily [Active]; tamsulosin 0.4 mg Oral cp24 1 cap once daily [Active]; terbinafine HCl 250 mg Oral tab 1 tab once daily [Active]; - PMHx: 06:26 Cellulitis; Diabetes - NIDDM; Hyperlipidemia; Hypertension; Hypothyroidism; ADD/ADHD; rr5 skin cancer; - PSHx: 06:26 Knee surgery; rr5 - Immunization history:: Adult Immunizations up to date. - Social history:: Smoking status: Patient/guardian denies using tobacco, Patient uses alcohol, but reports only rare drinking. Patient/guardian denies using street drugs. Screenin:20 Abuse screen: Denies threats or abuse. Denies injuries from another. Nutritional rr5 screening: No deficits noted. Tuberculosis screening: No symptoms or risk factors identified. Fall Risk IV access (20 points). Total Novoa Fall Scale indicates No Risk (0-24 pts). Assessment: 06:25 General: Appears in no apparent distress. uncomfortable, Behavior is calm, cooperative, rr5 appropriate for age. 06:25 Pain: Complains of pain in abdomen Pain currently is 8 out of 10 on a pain scale. rr5 Quality of pain is described as aching, Pain began gradually, Is continuous. Neuro: Level of Consciousness is awake, alert, obeys commands, Oriented to person, place, time, situation, Appropriate for age. Cardiovascular: Capillary refill < 3 seconds Patient's skin is warm and dry. Respiratory: Airway is patent Respiratory effort is even, unlabored, Respiratory pattern is regular, symmetrical. GI: Abdomen is round distended, Abdomen is tender to palpation in right lower quadrant and left lower quadrant Reports lower abdominal pain, upper abdominal pain, constipation, nausea. : Reports inability to void, since 12-16 hours. EENT: No signs and/or symptoms were reported regarding the EENT system. Derm: Skin is intact, is healthy with good turgor, Skin temperature is warm. Musculoskeletal: Circulation, motion, and sensation intact. Capillary refill < 3 seconds. 07:00 Reassessment: Patient appears in no apparent distress at this time. Patient is alert, rr5 oriented x 3, equal unlabored respirations, skin warm/dry/pink. Patient states feeling better. Patient states symptoms have improved. 08:04 Reassessment: Patient appears in no apparent distress at this time. Patient and/or jl7 family updated on plan of care and expected duration. Pain level reassessed. Patient is alert, oriented x 3, equal unlabored respirations, skin warm/dry/pink. reports pain down to 1/10 at this time. Patient states feeling better. 09:00 Reassessment: Pt unable to have a BM, notified pt ready for pickup. jl7 09:28 Reassessment: Pt states "I feel like I can go now." Pt will be discharged once he's jl7 done. updated, will call when ready [phone]. Vital Signs: 06:23 BP 149 / 63; Pulse 65; Resp 19; Temp 97.7; Pulse Ox 97% ; Pain 8/10; rr5 08:04 BP 133 / 58; Pulse 65; Resp 16 S; Pulse Ox 97% on R/A; Pain 1/10; jl7 ED Course: 06:00 Patient arrived in ED. ds1 06:18 Efren Steele PA is PHCP. cp 06:18 Mario Wright MD is Attending Physician. cp 06:23 Rakesh Bautista, RN is Primary Nurse. rr5 06:25 Triage completed. rr5 06:25 Patient has correct armband on for positive identification. Placed in gown. Bed in low rr5 position. Call light in reach. 06:25 Pulse ox on. NIBP on. rr5 06:25 Bladder scan completed. 999 ml. rr5 06:27 Arm band placed on right wrist. rr5 06:30 Dinh cath inserted, using sterile technique, 16 Fr., by nc, balloon inflated, to rr5 gravity drainage, urine specimen collected. returned clear yellow urine. Patient tolerated well. drained 500ml of urine clamped temporarily. 06:50 Inserted saline lock: 20 gauge in right forearm, using aseptic technique. Blood rr5 collected. 07:05 dinh catheter reopened drained 480 ml. rr5 07:08 Bladder scan completed. 0 ml. rr5 07:30 CT Stone Protocol In Process Unspecified. EDMS 08:02 Primary Nurse role handed off by Rakesh Bautista, RUBEN jl7 08:02 Jose Juan Martins RN is Primary Nurse. jl7 09:07 Yevgeniy Mondragon MD is Attending Physician. cp 09:39 No provider procedures requiring assistance completed. IV discontinued, intact, jl7 bleeding controlled, No redness/swelling at site. Pressure dressing applied. Administered Medications: 09:28 Drug: Magnesium Citrate Liquid 300 ml {Note: will provide to pt to take at home per VO jl7 from ERP.} Route: PO; 09:40 Follow up: Response: Medication administered at discharge. jl7 Output: 06:30 Urine: 500ml (Dinh); Total: 500ml. rr5 07:00 Urine: 480ml (Dinh); Total: 980ml. rr5 Outcome: 09:06 Discharge ordered by . cp 09:39 Discharged to home ambulatory. jl7 09:39 Condition: stable 09:39 Discharge instructions given to patient, family, Instructed on discharge instructions, follow up and referral plans. Demonstrated understanding of instructions, follow-up care. 09:40 Patient left the ED. jl7 Signatures: Dispatcher [employer] EDFL Onelia Morales ds1 Efren Steele PA PA cp Jose Juan Martins, RN RN jl7 Rakesh Bautista RN RN rr5
--- NOTE | 2019-12-12 09:07 | EDPHYS ---
Physician Documentation [facility] Name: Cole Jeffrey Age: 79 yrs Sex: Male : 1940 Arrival Date: 12/12/2019 Time: 06:00 Bed 7 Private MD: ED Physician Yevgeniy Mondragon HPI: 12/11 06:24 This 79 yrs old Male presents to ER via Unassigned with complaints of Unable cp to Urinate. 06:25 The patient presents with urinary symptoms, unable to void, constipation. Onset: The cp symptoms/episode began/occurred yesterday. Associated signs and symptoms: Pertinent positives: abdominal pain, constipation, Pertinent negatives: dysuria, fever, nausea, vomiting. Severity of symptoms: in the emergency department the symptoms are unchanged, despite home interventions. The patient has not experienced similar symptoms in the past. Historical: - Allergies: 06:26 No Known Allergies; rr5 - Home Meds: 06:25 amlodipine 2.5 mg tab once daily [Active]; Cialis 2.5 mg Oral tab 1 tab once daily rr5 [Active]; fluticasone [Active]; furosemide 20 mg Oral tab 1 tab as needed [Active]; glimepiride 4 mg Oral tab 1 tab once daily [Active]; glimepiride 4 mg Oral tab 1 tab once daily [Active]; Januvia 100 mg Oral tab 1 tab once daily [Active]; levothyroxine 100 mcg tab 1 tab once daily [Active]; losartan-hydrochlorothiazide 100-25 mg Oral tab 1 tab once daily [Active]; magnesium oxide 500 mg Oral tab [Active]; Matzim LA 360 mg Oral Tb24 1 tab once daily [Active]; metformin 1,000 mg Oral tab 1 tab 2 times per day [Active]; oxybutynin chloride 5 mg Oral tr24 1 tab once daily [Active]; Proscar 5 mg Oral tab 1 tab once daily [Active]; simvastatin 20 mg Oral tab 1 tab once daily [Active]; tamsulosin 0.4 mg Oral cp24 1 cap once daily [Active]; terbinafine HCl 250 mg Oral tab 1 tab once daily [Active]; - PMHx: 06:26 Cellulitis; Diabetes - NIDDM; Hyperlipidemia; Hypertension; Hypothyroidism; ADD/ADHD; rr5 skin cancer; - PSHx: 06:26 Knee surgery; rr5 - Immunization history:: Adult Immunizations up to date. - Social history:: Smoking status: Patient/guardian denies using tobacco, Patient uses alcohol, but reports only rare drinking. Patient/guardian denies using street drugs. ROS: 06:30 Constitutional: Negative for body aches, chills, fever, poor PO intake. cp 06:30 Eyes: Negative for injury, pain, redness, and discharge. cp 06:30 Cardiovascular: Negative for chest pain. 06:30 Respiratory: Negative for cough, shortness of breath, wheezing. 06:30 Abdomen/GI: Positive for abdominal pain, constipation, Negative for vomiting, diarrhea, black/tarry stool, rectal bleeding. 06:30 : Positive for difficulty urinating, Negative for flank pain, burning with urination, bladder incontinence, testicular pain 06:30 Neuro: Negative for altered mental status, headache, weakness. 06:30 All other systems are negative. Exam: 06:35 Constitutional: The patient appears in no acute distress, alert, awake, non-toxic, well cp developed, well nourished, uncomfortable. 06:35 Head/Face: Normocephalic, atraumatic. cp 06:35 Eyes: Periorbital structures: appear normal, Conjunctiva: normal, no exudate, no cp injection, Sclera: no appreciated abnormality, Lids and lashes: appear normal, bilaterally. 06:35 ENT: External ear(s): are unremarkable, Nose: is normal, Posterior pharynx: Airway: no evidence of obstruction, patent. 06:35 Chest/axilla: Inspection: normal, Palpation: is normal, no crepitus, no tenderness. 06:35 Cardiovascular: Rate: normal, Rhythm: regular, Edema: is not appreciated, JVD: is not appreciated. 06:35 Respiratory: the patient does not display signs of respiratory distress, Respirations: normal, no use of accessory muscles, no retractions, labored breathing, is not present. 06:35 Abdomen/GI: Inspection: distension, that is moderate, in the abdomen diffusely, Bowel sounds: active, all quadrants, Palpation: soft, in all quadrants, moderate abdominal tenderness, in the suprapubic area, rebound tenderness, is not appreciated, voluntary guarding, is elicited in the suprapubic area. 06:35 Neuro: Orientation: to person, place \T\ time. Mentation: is normal. Vital Signs: 06:23 BP 149 / 63; Pulse 65; Resp 19; Temp 97.7; Pulse Ox 97% ; Pain 8/10; rr5 08:04 BP 133 / 58; Pulse 65; Resp 16 S; Pulse Ox 97% on R/A; Pain 1/10; jl7 MDM: 06:20 Patient medically screened. cp 07:00 Differential diagnosis: UTI, prostatitis, urethritis, fecal impaction, bowel cp obstruction. 09:05 Data reviewed: vital signs, nurses notes, lab test result(s), radiologic studies, CT cp scan. 09:05 Counseling: I had a detailed discussion with the patient and/or guardian regarding: the cp historical points, exam findings, and any diagnostic results supporting the discharge/admit diagnosis, lab results, radiology results, the need for outpatient follow up, a urologist, to return to the emergency department if symptoms worsen or persist or if there are any questions or concerns that arise at home. Response to treatment: the patient's symptoms have markedly improved after treatment. ED course: VSS. Mckeon placed and patient disimpacted. Will discharge to home for continued monitoring. 12/11 06:25 Order name: Basic Metabolic Panel; Complete Time: 07:39 cp 12/11 07:39 Interpretation: Normal except: NA 135; GLUC 162; BUN 22; GFR 62. cp 12/11 06:25 Order name: CBC with Diff; Complete Time: 07:25 cp 12/11 07:27 Interpretation: Normal except: WBC 13.9; HGB 12.9; HCT 38.4; SIMIN% 80.3; LYM% 8.0; NEUT cp A 11.1; MNA 1.5. 12/11 06:25 Order name: Hepatic Function; Complete Time: 07:39 cp 12/11 07:39 Interpretation: Normal except: ALK 42. cp 12/11 06:25 Order name: Lipase; Complete Time: 07:39 cp 12/11 07:39 Interpretation: LIP 53; Reviewed. cp 12/11 06:25 Order name: Urine Microscopic Only; Complete Time: 08:37 cp 12/11 07:12 Order name: Urine Dipstick--Ancillary (enter results); Complete Time: 08:37 em1 12/11 08:37 Interpretation: Normal except: UPROT 2+. cp 12/11 06:25 Order name: IV Saline Lock; Complete Time: 07:09 cp 12/11 06:25 Order name: Labs collected and sent; Complete Time: 07:09 cp 12/11 06:25 Order name: Mckeon; Complete Time: 07:09 cp 12/11 06:32 Order name: Bladder Scanner; Complete Time: 06:32 rr5 12/11 07:00 Order name: CT Stone Protocol; Complete Time: 08:37 cp Administered Medications: 09:28 Drug: Magnesium Citrate Liquid 300 ml {Note: will provide to pt to take at home per VO jl7 from ERP.} Route: PO; 09:40 Follow up: Response: Medication administered at discharge. jl7 Disposition: 13:09 Co-signature as Attending Physician, Yevgeniy Mondragon MD I agree with the assessment and kdr plan of care. Disposition: 12/12/19 09:06 Discharged to Home. Impression: Retention of urine, Fecal impaction. - Condition is Stable. - Discharge Instructions: Constipation, Adult, Acute Urinary Retention, Male, Fecal Impaction. - Medication Reconciliation Form, Thank You Letter, Antibiotic Education, Prescription Opioid Use form. - Follow up: Private Physician; When: 2 - 3 days; Reason: Recheck today's complaints. - Problem is new. - Symptoms have improved. Signatures: Dispatcher [employer] EDMS Yevgeniy Mondragon MD MD kdr Efren Steele PA PA cp Jose Juan Martins RN RN jl7 Rakesh Bautista RN RN rr5 Corrections: (The following items were deleted from the chart) 07:27 07:25 Normal except: WBC 13.9; HGB 12.9; HCT 38.4; SIMIN% 80.3; LYM% 8.0; NEUT A 11.1. cp cp 09:40 09:06 12/12/2019 09:06 Discharged to Home. Impression: Retention of urine; Fecal jl7 impaction. Condition is Stable. Forms are Medication Reconciliation Form, Thank You Letter, Antibiotic Education, Prescription Opioid Use. Follow up: Private Physician; When: 2 - 3 days; Reason: Recheck today's complaints. Problem is new. Symptoms have improved. cp
[2019-12-12] MEDS ORDERED: MAGNESIUM CITRATE 300 ML BOT ONE (09:31)
[2019-12-12 09:49] VITALS: TEMP 97.7; O2SAT 97
[2019-12-12 09:50] VITALS: BP 133/58
== END 2019-12-12 09:40 | disposition home or self-care (01) ==
LOC: ER 05:58
DX: K56.41 Fecal impaction (principal); I10 Essential (primary) hypertension; E11.9 Type 2 diabetes mellitus without complications; E78.5 Hyperlipidemia, unspecified; E03.9 Hypothyroidism, unspecified; Z85.828 Personal history of other malignant neoplasm of skin
CPT/HCPCS: 36415; 51702; 74176; 76377; 80048; 80076; 81003; 81015; 83690; 85025; 99284

== ENCOUNTER 2019-12-13 17:21 | Emergency (ER) | payer OTHER, MEDICARE ==
--- NOTE | 2019-12-13 20:21 | EDPHYS ---
Physician Documentation [facility] Name: Cole Jeffrey Age: 79 yrs Sex: Male : 1940 Arrival Date: 12/13/2019 Time: 17:23 Bed 6 Private MD: Damir Lucero E ED Physician Ermias Stewart HPI: 12/13 05:42 This 79 yrs old Male presents to ER via Wheelchair with complaints of Problem tw4 With Urinary Catheter. 05:42 The patient presents with a Oleary catheter problem, PAINFUL HAD OLEARY PLACED YESTERDAY tw4 SECONDARY TO URINARY RETENTION. Onset: The symptoms/episode began/occurred today. Modifying factors: The symptoms are alleviated by nothing, the symptoms are aggravated by nothing. Associated signs and symptoms: The patient has no apparent associated signs or symptoms. Severity of symptoms: At their worst the symptoms were mild, in the emergency department the symptoms are unchanged. The patient has not experienced similar symptoms in the past. Historical: - Allergies: 12/12 17:38 No Known Allergies; jl7 - PMHx: 17:38 ADD/ADHD; Cellulitis; Diabetes - NIDDM; Hyperlipidemia; Hypertension; Hypothyroidism; jl7 skin cancer; - PSHx: 17:38 Knee surgery; jl7 - Immunization history:: Adult Immunizations up to date. - Social history:: Smoking status: Patient denies any tobacco usage or history of. ROS: 12/13 05:42 Constitutional: Negative for fever, chills, and weight loss, Eyes: Negative for injury, tw4 pain, redness, and discharge, Cardiovascular: Negative for chest pain, palpitations, and edema, Respiratory: Negative for shortness of breath, cough, wheezing, and pleuritic chest pain, Abdomen/GI: Negative for abdominal pain, nausea, vomiting, diarrhea, and constipation, Back: Negative for injury and pain. MS/Extremity: Negative for injury and deformity, Skin: Negative for injury, rash, and discoloration, Neuro: Negative for headache, weakness, numbness, tingling, and seizure. : Positive for difficulty urinating, penile pain, Negative for injury or acute deformity, urinary symptoms. Exam: 05:42 Constitutional: This is a well developed, well nourished patient who is awake, alert, tw4 and in no acute distress. Head/Face: Normocephalic, atraumatic. Chest/axilla: Normal chest wall appearance and motion. Nontender with no deformity. No lesions are appreciated. Cardiovascular: Regular rate and rhythm with a normal S1 and S2. No gallops, murmurs, or rubs. Normal PMI, no JVD. No pulse deficits. Respiratory: Lungs have equal breath sounds bilaterally, clear to auscultation and percussion. No rales, rhonchi or wheezes noted. No increased work of breathing, no retractions or nasal flaring. Abdomen/GI: Soft, non-tender, with normal bowel sounds. No distension or tympany. No guarding or rebound. No evidence of tenderness throughout. Male : Normal genitalia with no discharge or lesions. Vital Signs: 12/12 17:33 BP 168 / 62; Pulse 78; Resp 17; Temp 98.8; Pulse Ox 97% ; Pain 9/10; jl7 20:29 BP 145 / 75; Pulse 76; Resp 16; Temp 98.5; Pulse Ox 98% on R/A; rv MDM: 19:09 Patient medically screened. tw4 12/13 05:42 Data reviewed: vital signs, nurses notes. Counseling: I had a detailed discussion with tw4 the patient and/or guardian regarding: the historical points, exam findings, and any diagnostic results supporting the discharge/admit diagnosis. ED course: Oleary catheter draining well with clear urine. pt states that catheter is pulling because of the leg bag causing him to have penile pain. Oleary catheter adjusted. Administered Medications: No medications were administered Disposition: 12/13/19 20:20 Discharged to Home. Impression: Other retention of urine. - Condition is Stable. - Discharge Instructions: Acute Urinary Retention, Male. - Medication Reconciliation Form, Thank You Letter, Antibiotic Education, Prescription Opioid Use form. - Follow up: Damir Lucero MD; When: Upon discharge from the Emergency Department; Reason: Recheck today's complaints, Continuance of care, Re-evaluation by your physician. Follow up: Amauri Fischer MD; When: Upon discharge from the Emergency Department; Reason: Recheck today's complaints, Continuance of care, Re-evaluation by your physician. - Problem is new. - Symptoms have improved. Signatures: Jose Juan Martins RN RN jl7 Ermias Stewart MD MD tw4 Carlos Hernandez, RN RN rv Corrections: (The following items were deleted from the chart) 12/12 20:21 20:20 12/13/2019 20:20 Discharged to Home. Impression: Other retention of urine. tw4 Condition is Stable. Forms are Medication Reconciliation Form, Thank You Letter, Antibiotic Education, Prescription Opioid Use. Follow up: Damir Lucero; When: Upon discharge from the Emergency Department; Reason: Recheck today's complaints, Continuance of care, Re-evaluation by your physician. Problem is new. Symptoms have improved. tw4 20:29 20:21 12/13/2019 20:20 Discharged to Home. Impression: Other retention of urine. rv Condition is Stable. Discharge Instructions: Acute Urinary Retention, Male. Forms are Medication Reconciliation Form, Thank You Letter, Antibiotic Education, Prescription Opioid Use. Follow up: Damir Lucero; When: Upon discharge from the Emergency Department; Reason: Recheck today's complaints, Continuance of care, Re-evaluation by your physician. Follow up: Amauri Fischer; When: Upon discharge from the Emergency Department; Reason: Recheck today's complaints, Continuance of care, Re-evaluation by your physician. Problem is new. Symptoms have improved. tw4
--- NOTE | 2019-12-13 20:21 | ER ---
Nurse's Notes [facility] Name: Cole Jeffrey Age: 79 yrs Sex: Male : 1940 Arrival Date: 12/13/2019 Time: 17:23 Bed 6 Private MD: Damir Lucero E Diagnosis: Other retention of urine Presentation: 12/12 17:33 Chief complaint: Patient states: Was discharged yesterday with Oleary, have an jl7 appointment urology on Tuesday, but the catheter is just hurting too bad "It's a burning sensation.". Coronavirus screen: Proceed with normal triage. Patient denies a cough. Patient denies shortness of breath or difficulty breathing. Patient denies measured and/or subjective temperature greater than 100.4F prior to today's visit. Patient denies travel on a cruise ship or to a country the [facility] currently lists as an affected area. Patient denies contact with known and/or suspected case of COVID-19. Ebola Screen: No symptoms or risks identified at this time. Initial Sepsis Screen: Does the patient meet any 2 criteria? No. Patient's initial sepsis screen is negative. Does the patient have a suspected source of infection? No. Patient's initial sepsis screen is negative. Risk Assessment: Do you want to hurt yourself or someone else? Patient reports no desire to harm self or others. Onset of symptoms was December 12, 2019. Care prior to arrival: None. 17:33 Method Of Arrival: Wheelchair [facility] 17:33 Acuity: JOSE F 3 jl7 Historical: - Allergies: 17:38 No Known Allergies; jl7 - PMHx: 17:38 ADD/ADHD; Cellulitis; Diabetes - NIDDM; Hyperlipidemia; Hypertension; Hypothyroidism; jl7 skin cancer; - PSHx: 17:38 Knee surgery; jl7 - Immunization history:: Adult Immunizations up to date. - Social history:: Smoking status: Patient denies any tobacco usage or history of. Screenin:00 Abuse screen: Denies threats or abuse. Denies injuries from another. Nutritional rv screening: No deficits noted. Tuberculosis screening: No symptoms or risk factors identified. Fall Risk None identified. Assessment: 19:56 General: Appears uncomfortable, Behavior is calm, cooperative. Pain: Complains of pain rv in GENITALIA. Neuro: Level of Consciousness is awake, alert, obeys commands, Oriented to person, place, time, situation. Cardiovascular: Patient's skin is warm and dry. Respiratory: Airway is patent. : BLOOD STAIN ON THE UNDERWEAR. TAPE WAS SECURED TOO FAR FROM THE GENITALS MAKING THE LEG PULL THE TUBING CAUSING THE TEAR AND PAIN. Derm: Skin is intact. 19:59 Reassessment: REPLACED TAPE SECURING THE OLEARY CATHETER, AND PUT EXTENSION TUBING rv BETWEEN THE OLEARY AND THE BAG. Vital Signs: 17:33 BP 168 / 62; Pulse 78; Resp 17; Temp 98.8; Pulse Ox 97% ; Pain 9/10; jl7 20:29 BP 145 / 75; Pulse 76; Resp 16; Temp 98.5; Pulse Ox 98% on R/A; rv ED Course: 17:23 Patient arrived in ED. ag5 17:24 Damir Lucero MD is Private Physician. ag5 17:37 Triage completed. jl7 17:38 Arm band placed on right wrist. jl7 19:09 Ermias Stewart MD is Attending Physician. tw4 19:34 Carlos Hernandez, RUBNE is Primary Nurse. rv 19:59 No provider procedures requiring assistance completed. Patient did not have IV access rv during this emergency room visit. 20:00 Patient has correct armband on for positive identification. Pulse ox on. NIBP on. rv 20:19 Damir Lucero MD is Referral Physician. tw4 20:21 Amauri Fischer MD is Referral Physician. tw4 Administered Medications: No medications were administered Outcome: 20:20 Discharge ordered by . tw4 20:29 Discharged to home ambulatory. rv 20:29 Condition: good 20:29 Discharge instructions given to patient, Instructed on discharge instructions, follow up and referral plans. Demonstrated understanding of instructions, follow-up care. 20:29 Patient left the ED. rv Signatures: Jose Juan Martins RN RN jl7 Ermias Stewart MD MD [facility] Carlos Hernandez RN RN rv [place], [place] 5
[2019-12-13 20:37] VITALS: BP 145/75; TEMP 98.5; O2SAT 98
--- OUTSIDE RECORDS SUMMARY | 2019-12-13 21:11 | XMS REPORT | Clinical Summary ---
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 after 12/12/2018 Results XR foot 3 views left (11/30/2019 4:31 PM CDT) Specimen Narrative Performed At FINAL REPORT [facility] EXAM:RAD, FOOT, MIN 3 VIEWS, LEFT DATE: [...] Organization Address City/State/Zipcode Phone Number RIS after 12/12/2018 Insurance Payer Benefit Plan / Group Subscriber ID Type Phone A ddress MEDICARE MEDICARE A B xxxxxxxxxxx Medicare MCR SUPPLEMENT/INDIVIDUAL AARP/[facility] xxxxxxxxxxx [facility]
--- OUTSIDE RECORDS SUMMARY | 2019-12-13 21:12 | XMS REPORT | Continuity of Care Document ---
:1940 Author Organization [facility] t Address [address] [place] [address] Care Team Providers Name Role Phone Yoli Barber Primary Care Physician Antonio Frazier DPM Attending Clinician Yoli Barber NP Attending Clinician Tamra PEARSON Attending Clinician Payers Payer Name Policy Policy Number Effective Expiration Source Type Date Date MEDICAREMEDICARE A xxxxxxxxxxx [facility] MCR xxxxxxxxxxx [facility] SUPPLEMENT/INDIVIDUALAARP/UNITE [facility]xxxxxxxxxxx[facility] Problems Condition Condition Condition Status [...] on on Diabetes Diabetes Disease Active 2015-06 mellitus mellitus 07-03 Elmer o due to due to 00:00: n underlying underlying 00 condition condition with with complicati complicati on Hypothyroi Hypothyroi Disease Active 2015-06 M D dism dism 07-03 Anderso 00:00: n 00 Hyperlipid Hyperlipid Disease Active 2015-06 M D emia emia 07-03 Anderso 00:00: n 00 Alcohol Alcohol Disease Active 2015-06 MD use use 07-03 Anderso disorder, disorder, 00:00: [...] Hypertensi Hypertensi Disease Active M D on on 06-13 Anderso 00:00: n 00 Pneumonia Pneumonia Disease Active MD 06-13 Anderso 00:00: n 00 Open skull [...] MD Sherwood Natural father Heart disease MD Mayen rsalmita Natural mother -Breast cancer Social History Social [...] needed n tablet 45 for allergies. magnesium 2019 Yes 500mg Take 500 MD oxide 500 4-10 mg by Anderso mg tablet 15:29: mouth n 45 twice daily. cyanocobala 2019- Yes 2500ug Take 2,500 MD min 4-10 mcg by Anderso (vitamin 15:29: mouth n B-12) 1000 45 daily. mcg tablet silodosin Yes 1{capsu Take 1 MD (RAPAFLO) 8 2-24 le} capsule by An derso mg capsule 00:00: mouth n 00 daily. amLODIPine Yes 1{tbl} Take 1 MD (NORVASC) 2-11 [...] Procedure Date / Time Performed Performing Clinician Sour e XR FOOT LEFT 3 VIEW 2019-11-30 16:31:00 Karla Barber [facility] Encounters Start End Encounter Admission Attending Care Care Encounter Source Date/Time Date/Time Type Type Clinicians Facility Department ID 2019-12-07 2019-12-07 Office FELY Frazier [id number] [id number] 09:06:57 12:03:34 Visit Fransisco A AMBULATOR 350.1.13.21 Y 0.2.7.2.686 [id number] 2019-11-30 2019-11-30 Office FELY Frazier 1.2.840.114 [id number] 13:57:09 15:42:09 Visit Fransisco A AMBULATOR 350.1.13.21 Y 0.2.7.2.686 [id number] 2019-11-16 2019-11-16 Office FELY Frazier 1.2.840.114 [id number] 10:09:45 15:40:42 Visit Fransisco A AMBULATOR 350.1.13.21 Y 0.2.7.2.686 [id number] 2019-08-17 2019-08-17 Office FELY Frazier 1.2.840.114 [id number] 10:00:59 12:27:10 Visit Fransisco A AMBULATOR 350.1.13.21 Y 0.2.7.2.686 [id number] 2019-07-16 2019-07-16 Office FELY Frazier 1.2.840.114 [id number] 08:36:52 11:36:45 Visit Fransisco A AMBULATOR 350.1.13.21 Y 0.2.7.2.686 [id number] 2019-03-20 2019-03-21 Office FELY Frazier 1.2.840.114 [id number] 09:40:39 14:45:44 Visit Fransisco A AMBULATOR 350.1.13.21 Y 0.2.7.2.686 [id number] 2019-03-20 2019-03-20 Office FELY Barboza 1.2.840.114 [id number] 07:41:29 08:11:29 Visit Nel AMBULATOR 350.1.13.21 Y 0.2.7.2.686 [id number] 2019-03-06 2019-03-06 Office FELY Frazier 1.2.840.114 [id number] 11:26:14 11:56:14 Visit Fransisco Alvarez AMBULATOR 350.1.13.21 Y 0.2.7.2.686 [id number] 2019-03-06 2019-03-06 Office FELY Barboza 1.2.840.114 [id number] 09:38:52 10:08:52 Visit Nel AMBULATOR 350.1.13.21 Y 0.2.7.2.686 [id number] 2019-02-21 2019-02-21 Office FELY Frazier 1.2.840.114 [id number] 11:09:51 13:35:52 Visit Fransisco Alvarez AMBULATOR 350.1.13.21 Y 0.2.7.2.686 [id number] 2019-02-21 2019-02-21 Office FELY Barboza 1.2.840.114 [id number] 09:36:32 10:06:32 Visit Nel AMBULATOR 350.1.13.21 Y 0.2.7.2.686 [id number] 2019-02-05 2019-02-05 Office FELY Barboza 1.2.840.114 [id number] 13:46:52 14:46:52 Visit Nel AMBULATOR 350.1.13.21 Y 0.2.7.2.686 [id number] 2019-02-05 2019-02-05 Office FELY Frazier 1.2.840.114 [id number] 11:23:12 11:53:12 Visit Fransisco Alvarez AMBULATOR 350.1.13.21 Y 0.2.7.2.686 [id number] Results Test Description Test Time Test Comments Results Result [facility] e Comments RAD, FOOT, MIN 3 2019-11-13 Reason for FINAL REPORT VIEWS, LEFT 2 Exam:->Abscess PATIENT ID: [id number] or cellulitis [id number] EXAM: of toe, left RAD, FOOT, MIN [...] calcification seen. IMPRESSION:No acute bony abnormality. Signed: Alvaro Castaneda Verified Date/Time: 12/03/2019 14:06:27 Reading Location: [facility] Reading Room [address] [address] foot 3 views 2 Interface, External [facility] left 2 Ris In - 12/03/2019 - Med ical 14:06:00 2:08 PM [facility] REPORT EXAM: RAD, FOOT, MIN 3 [...]
== END 2019-12-13 20:29 | disposition home or self-care (01) ==
LOC: ER 17:21
DX: T83.84XA Pain due to genitourinary prosthetic devices, implants and grafts, initial encounter (principal); R33.8 Other retention of urine
CPT/HCPCS: 99283

== ENCOUNTER 2019-12-14 17:14 | Emergency (ER) | payer OTHER, MEDICARE ==
--- OUTSIDE RECORDS SUMMARY | 2019-12-14 17:17 | XMS REPORT | Continuity of Care Document ---
:1940 Author Organization [facility] t Address [address] [place] [address] Care Team Providers Name Role Phone Yoli Barber Primary Care Physician Antonio Frazier DPM Attending Clinician Yoli Barber NP Attending Clinician Tamra PEARSON Attending Clinician Payers Payer Name Policy Policy Number Effective Expiration Source Type Date Date MEDICAREMEDICARE A xxxxxxxxxxx [facility] MCR xxxxxxxxxxx [facility] SUPPLEMENT/INDIVIDUALAARP/UNITE [facility]xxx[facility] Problems Condition Condition Condition Status Onset Resolution [...] Disease Active 2015-06 MD mellitus mellitus 07-03 Elemr o due to due to 00:00: n [...] LEFT 3 VIEW 2019-11-30 16:31:00 Karla Barber [facility] Encounters Start End Encounter Admission Attending Care Care Encounter Source Date/Time Date/Time Type Type Clinicians Facility Department ID 2019-12-07 2019-12-07 Office FELY Frazier 1.2.840.114 [id number] 09:06:57 12:03:34 Visit Fransisco A AMBULATOR 350.1.13.21 Y 0.2.7.2.686 [id number] 2019-11-30 2019-11-30 Office FELY Frazier 1.2.840.114 [id number] 13:57:09 15:42:09 Visit Fransisco A AMBULATOR 350.1.13.21 Y 0.2.7.2.686 [id number] 2019-11-16 2019-11-16 Office FELY Frazier 1.2.840.114 [id number] 20 10:09:45 15:40:42 Visit Fransisco A AMBULATOR 350.1.13.21 Y 0.2.7.2.686 [id number] 2019-08-17 2019-08-17 Office FELY Frazier 1.2.840.114 [id number] 10:00:59 12:27:10 Visit Fransisco A AMBULATOR 350.1.13.21 Y 0.2.7.2.686 [id number] 2019-07-16 2019-07-16 Office FELY Frazier 1.2.840.114 [id number] 08:36:52 11:36:45 Visit Fransisco A AMBULATOR 350.1.13.21 Y 0.2.7.2.686 [id number] 2019-03-20 2019-03-21 Office FELY Frazier 1.2.840.114 [id number] 09:40:39 14:45:44 Visit Fransisco A AMBULATOR 350.1.13.21 Y 0.2.7.2.686 [id number] 2019-03-20 2019-03-20 Office FELY Barboza 1.2.840.114 [id number] 07:41:29 08:11:29 Visit Nel AMBULATOR 350.1.13.21 Y 0.2.7.2.686 [id number] [facility] 2019-03-06 2019-03-06 Office FELY Frazier 1.2.840.114 [id number] 11:26:14 11:56:14 Visit Fransisco Alvarez AMBULATOR 350.1.13.21 Y 0.2.7.2.686 [id number] 2019-03-06 2019-03-06 Office FELY Barboza 1.2.840.114 [id number] 09:38:52 10:08:52 Visit Nel AMBULATOR 350.1.13.21 Y 0.2.7.2.686 [id number] 2019-02-21 2019-02-21 Office FELY Frazier 1.2.840.114 [id number] 11:09:51 13:35:52 Visit Fransisco Alvarez AMBULATOR 350.1.13.21 Y 0.2.7.2.686 [id number] 2019-02-21 2019-02-21 Office FELY Barboza 1.2.840.114 [id number] 09:36:32 10:06:32 Visit Nel AMBULATOR 350.1.13.21 Y 0.2.7.2.686 [id number] 2019-02-05 2019-02-05 Office FELY Barboza 1.2.840.114 [id number] 13:46:52 14:46:52 Visit Nel AMBULATOR 350.1.13.21 Y 0.2.7.2.686 [id number] 2019-02-05 2019-02-05 Office FELY Frazier 1.2.840.114 [id number] 11:23:12 11:53:12 Visit Fransisco Alvarez AMBULATOR 350.1.13.21 Y 0.2.7.2.686 [id number] Results Test Description Test Time Test Comments Results Result [facility] e Comments RAD, FOOT, MIN 3 2019-11-13 Reason for FINAL REPORT VIEWS, LEFT 2 Exam:->Abscess PATIENT ID: [id number]:06:00 or cellulitis [id number] EXAM: of toe, left RAD, FOOT, MIN [...] Castaneda Verified Date/Time: 12/03/2019 14:06:27 Reading Location: [facility] Reading Room [address] [place] [address] foot 3 views 2019-11-2 Interface, External [facility] left 2 Ris In - 12/03/2019 - [...] Castaneda Verified Date/Time: 12/03/2019 14:06:27 Reading Location: [facility] Reading Room [address] [address]
--- OUTSIDE RECORDS SUMMARY | 2019-12-14 17:17 | XMS REPORT | Clinical Summary ---
:1940 Author Organization [facility] Address [address] [place] [address] Care Team Providers Name Role Phone Yoli Barber Primary Care Provider Allergies Not on File Medications Not on file Active Problems Not on file Encounters Date Type Specialty Care Team Description 11/30/2019 Hospital Encounter Radiology Karla Barbere ss or Yoli, RELEASE SPECIALIST cellulitis of t oe, left 11/30/2019 Outside Orders Central Scheduling Karla Barber Abs cess or Yoli, LEON cellulitis of t oe, left (Primary D x) after 12/13/2018 Social History Tobacco Use Types Packs/Day Years [...] are in left the results section. after 12/13/2018 Results XR foot 3 views left (11/30/2019 4:31 PM CDT) Specimen Narrative Performed At FINAL REPORT [facility] EXAM:RAD, FOOT, MIN 3 VIEWS, LEFT DATE: [...] IMPRESSION: No acute bony abnormality. Signed: Araceli Csataneda MD Report Verified Date/Time: 12/03/2019 1 4:06:27 Reading Location: [facility] - B01.627 Performing Organization Address City/State/Zipcode Phone Number RIS after 12/13/2018 Insurance Payer Benefit Plan / Group Subscriber ID Type Phone A ddress MEDICARE MEDICARE A B xxxxxxxxxxx Medicare MCR SUPPLEMENT/INDIVIDUAL AARP/[facility] xxxxxxxxxxx [facility]
--- NOTE | 2019-12-14 18:43 | ER ---
Nurse's Notes [facility] Name: Cole Jeffrey Age: 79 yrs Sex: Male : 1940 Arrival Date: 12/14/2019 Time: 17:17 Bed 16 Private MD: Diagnosis: Encounter for fitting and adjustment of non-vascular catheter Presentation: 12/13 17:31 Chief complaint: Patient states: PAIN AND DISCHARGE FROM AROUND CATH PLACED x3 DAY. bp Coronavirus screen: Proceed with normal triage. Ebola Screen: No symptoms or risks identified at this time. Initial Sepsis Screen: Does the patient meet any 2 criteria? No. Patient's initial sepsis screen is negative. Does the patient have a suspected source of infection? No. Patient's initial sepsis screen is negative. Risk Assessment: Do you want to hurt yourself or someone else? Patient reports no desire to harm self or others. Onset of symptoms is unknown. 17:31 Method Of Arrival: Ambulatory bp 17:31 Acuity: JOSE F 4 bp Historical: - Allergies: 17:36 No Known Allergies; bp - Home Meds: 17:36 amlodipine 2.5 mg tab once daily [Active]; fluticasone [Active]; Cialis 2.5 mg Oral tab bp 1 tab once daily [Active]; terbinafine HCl 250 mg Oral tab 1 tab once daily [Active]; furosemide 20 mg Oral tab 1 tab as needed [Active]; glimepiride 4 mg Oral tab 1 tab once daily [Active]; glimepiride 4 mg Oral tab 1 tab once daily [Active]; Januvia 100 mg Oral tab 1 tab once daily [Active]; levothyroxine 100 mcg tab 1 tab once daily [Active]; losartan-hydrochlorothiazide 100-25 mg Oral tab 1 tab once daily [Active]; magnesium oxide 500 mg Oral tab [Active]; Matzim LA 360 mg Oral Tb24 1 tab once daily [Active]; metformin 1,000 mg Oral tab 1 tab 2 times per day [Active]; oxybutynin chloride 5 mg Oral tr24 1 tab once daily [Active]; Proscar 5 mg Oral tab 1 tab once daily [Active]; simvastatin 20 mg Oral tab 1 tab once daily [Active]; tamsulosin 0.4 mg Oral cp24 1 cap once daily [Active]; - PMHx: 17:36 ADD/ADHD; Cellulitis; Diabetes - NIDDM; Hyperlipidemia; Hypertension; Hypothyroidism; bp skin cancer; - Immunization history:: Adult Immunizations up to date. - Social history:: Smoking status: Patient denies any tobacco usage or history of. Screenin:03 Abuse screen: Denies threats or abuse. Nutritional screening: No deficits noted. ll1 Tuberculosis screening: No symptoms or risk factors identified. Fall Risk None identified. Secondary diagnosis (15 points) impaired mobility, dinh in place. Gait- Total Novoa Fall Scale indicates No Risk (0-24 pts). Assessment: 18:02 General: Appears in no apparent distress. Behavior is calm, cooperative. Pain: ll1 Complains of pain in penis Quality of pain is described as aching. Neuro: No deficits noted. Cardiovascular: No deficits noted. Respiratory: No deficits noted. : Reports pain pain and dribbling around dinh catheter site. Dinh was placed 3 days ago. Vital Signs: 17:31 BP 167 / 70; Pulse 72; Resp 16; Temp 98.1; Pulse Ox 97% ; Weight 122.02 kg; Height 6 bp ft. 0 in. (182.88 cm); 17:31 Body Mass Index 36.48 (122.02 kg, 182.88 cm) bp ED Course: 17:17 Patient arrived in ED. fj1 17:34 Triage completed. bp 17:36 Arm band placed on. bp 17:38 Vira Childs, RN is Primary Nurse. ll1 17:50 Patient tolerated well. Dinh cath removed intact, balloon deflated. jp3 18:03 Patient has correct armband on for positive identification. Bed in low position. Call ll1 light in reach. Side rails up X 1. 18:34 Lucia Thomas FNP-C [facility]. snw 18:34 Jerrica Stoddard MD is Attending Physician. snw 19:02 No provider procedures requiring assistance completed. Patient did not have IV access during this emergency room visit. Administered Medications: 18:55 Drug: Macrobid 100 mg Route: PO; Outcome: 18:43 Discharge ordered by . snw 19:02 Discharged to home ambulatory. ah 19:02 Condition: good 19:02 Discharge instructions given to patient, Instructed on discharge instructions, follow up and referral plans. Demonstrated understanding of instructions, follow-up care, medications, Prescriptions given X 1. 19:02 Patient left the ED. Signatures: Lucia Thomas, PRESSURE TESTER OPERATOR-C PRESSURE TESTER OPERATOR-Csnw Lebron Pop, RN RN Clemente Carreon jp3 William Merrill fj1 Tanesha Peralta RN RN Vira Childs RN RN ll1
--- NOTE | 2019-12-14 18:43 | EDPHYS ---
Physician Documentation [facility] Name: Cole Jeffrey Age: 79 yrs Sex: Male : 1940 Arrival Date: 12/14/2019 Time: 17:17 Bed 16 Private MD: ED Physician Jerrica Stoddard HPI: 12/14 01:49 This 79 yrs old Male presents to ER via Ambulatory with complaints of Problem snw With Urinary Catheter. 01:49 The patient presents with a Dinh catheter problem, too irritating, painful, requests snw removal. Onset: The symptoms/episode began/occurred acutely. Associated signs and symptoms: Pertinent positives: dysuria. Severity of symptoms: At their worst the symptoms were moderate, severe. The patient has not experienced similar symptoms in the past. The patient has been recently seen by a physician: The patient has been recently seen at the [facility] Emergency Department, this week, pt was so constipated that he had urinary retention, dinh placed, constipation has subsided but pt is quite uncomfortable secondary to the dinh and requests it be removed. Historical: - Allergies: 12/13 17:36 No Known Allergies; bp - Home Meds: 17:36 amlodipine 2.5 mg tab once daily [Active]; fluticasone [Active]; Cialis 2.5 mg Oral tab bp 1 tab once daily [Active]; terbinafine HCl 250 mg Oral tab 1 tab once daily [Active]; furosemide 20 mg Oral tab 1 tab as needed [Active]; glimepiride 4 mg Oral tab 1 tab once daily [Active]; glimepiride 4 mg Oral tab 1 tab once daily [Active]; Januvia 100 mg Oral tab 1 tab once daily [Active]; levothyroxine 100 mcg tab 1 tab once daily [Active]; losartan-hydrochlorothiazide 100-25 mg Oral tab 1 tab once daily [Active]; magnesium oxide 500 mg Oral tab [Active]; Matzim LA 360 mg Oral Tb24 1 tab once daily [Active]; metformin 1,000 mg Oral tab 1 tab 2 times per day [Active]; oxybutynin chloride 5 mg Oral tr24 1 tab once daily [Active]; Proscar 5 mg Oral tab 1 tab once daily [Active]; simvastatin 20 mg Oral tab 1 tab once daily [Active]; tamsulosin 0.4 mg Oral cp24 1 cap once daily [Active]; - PMHx: 17:36 ADD/ADHD; Cellulitis; Diabetes - NIDDM; Hyperlipidemia; Hypertension; Hypothyroidism; bp skin cancer; - Immunization history:: Adult Immunizations up to date. - Social history:: Smoking status: Patient denies any tobacco usage or history of. ROS: 12/14 01:46 Constitutional: Negative for fever, chills, and weight loss, Eyes: Negative for injury, snw pain, redness, and discharge, ENT: Negative for injury, pain, and discharge, Neck: Negative for injury, pain, and swelling, Cardiovascular: Negative for chest pain, palpitations, and edema, Respiratory: Negative for shortness of breath, cough, wheezing, and pleuritic chest pain, Abdomen/GI: Negative for abdominal pain, nausea, vomiting, diarrhea, and constipation, Back: Negative for injury and pain, : Negative for bleeding, discharge, and swelling, dinh placed for retention has become too uncomfortable, requests removal MS/Extremity: Negative for injury and deformity, Skin: Negative for injury, rash, and discoloration, Neuro: Negative for headache, weakness, numbness, tingling, and seizure, Psych: Negative for depression, anxiety, suicide ideation, homicidal ideation, and hallucinations. Exam: 01:45 Constitutional: This is a well developed, well nourished patient who is awake, alert, snw and in no acute distress. Head/Face: Normocephalic, atraumatic. Eyes: Pupils equal round and reactive to light, extra-ocular motions intact. Lids and lashes normal. Conjunctiva and sclera are non-icteric and not injected. Cornea within normal limits. Periorbital areas with no swelling, redness, or edema. ENT: Nares patent. No nasal discharge, no septal abnormalities noted. Tympanic membranes are normal and external auditory canals are clear. Oropharynx with no redness, swelling, or masses, exudates, or evidence of obstruction, uvula midline. Mucous membranes moist. Neck: Trachea midline, no thyromegaly or masses palpated, and no cervical lymphadenopathy. Supple, full range of motion without nuchal rigidity, or vertebral point tenderness. No Meningismus. Chest/axilla: Normal chest wall appearance and motion. Nontender with no deformity. No lesions are appreciated. Cardiovascular: Regular rate and rhythm with a normal S1 and S2. No gallops, murmurs, or rubs. Normal PMI, no JVD. No pulse deficits. Respiratory: Lungs have equal breath sounds bilaterally, clear to auscultation and percussion. No rales, rhonchi or wheezes noted. No increased work of breathing, no retractions or nasal flaring. Abdomen/GI: Soft, non-tender, with normal bowel sounds. No distension or tympany. No guarding or rebound. No evidence of tenderness throughout. Back: No spinal tenderness. No costovertebral tenderness. Full range of motion. Male : Normal genitalia with no discharge or lesions. burning and irritation with urination, s/p dinh placement Skin: Warm, dry with normal turgor. Normal color with no rashes, no lesions, and no evidence of cellulitis. MS/ Extremity: Pulses equal, no cyanosis. Neurovascular intact. Full, normal range of motion. Neuro: Awake and alert, GCS 15, oriented to person, place, time, and situation. Cranial nerves II-XII grossly intact. Motor strength 5/5 in all extremities. Sensory grossly intact. Cerebellar exam normal. Normal gait. Psych: Awake, alert, with orientation to person, place and time. Behavior, mood, and affect are within normal limits. Vital Signs: 12/13 17:31 BP 167 / 70; Pulse 72; Resp 16; Temp 98.1; Pulse Ox 97% ; Weight 122.02 kg; Height 6 bp ft. 0 in. (182.88 cm); 17:31 Body Mass Index 36.48 (122.02 kg, 182.88 cm) bp MDM: 18:43 Patient medically screened. snw 12/14 01:47 Data reviewed: vital signs, nurses notes. Data interpreted: Pulse oximetry: on room air snw is 97 %. Interpretation: normal. Counseling: I had a detailed discussion with the patient and/or guardian regarding: the historical points, exam findings, and any diagnostic results supporting the discharge/admit diagnosis, the presence of at least one elevated blood pressure reading (>120/80) during this emergency department visit, the need for outpatient follow up, for definitive care. Response to treatment: the patient's symptoms have markedly improved after treatment. Special discussion: I discussed in detail with the patient the higher chance of wound infection based on his presenting history. Based on the history and exam findings, there is no indication for further emergent testing or inpatient evaluation. I discussed with the patient/guardian the need to see the primary care provider for further evaluation of the symptoms. ED course: pt voices understanding of potential need to return for retention again. Pt states he will take that chance. 12/13 17:39 Order name: [facility]. Order: Remove dinh; Complete Time: 17:52 ss Administered Medications: 12/13 18:55 Drug: Macrobid 100 mg Route: PO; ah Disposition: 12/14 18:36 Co-signature as Attending Physician, Jerrica Stoddard MD. ma2 Disposition: 12/14/19 18:43 Discharged to Home. Impression: Encounter for fitting and adjustment of non-vascular catheter. - Condition is Stable. - Discharge Instructions: Catheter-Associated Urinary Tract Infection FAQs - SEGAL. - Prescriptions for Macrobid 100 mg Oral Capsule - take 1 capsule by ORAL route every 12 hours for 10 days; 20 capsule. - Medication Reconciliation Form, Thank You Letter, Antibiotic Education, Prescription Opioid Use form. - Follow up: Emergency Department; When: As needed; Reason: Worsening of condition. Follow up: Private Physician; When: 5 - 6 days; Reason: Recheck today's complaints, Continuance of care, Re-evaluation by your physician. Signatures: Lucia Thomas, JEWEL BEARING FACER-C JEWEL BEARING FACER-Csnw Crystal Canseco RN RN Lebron Pop RN RN Jerrica Stoddard MD MD [facility] Tanesha Peralta RN RN Corrections: (The following items were deleted from the chart) 12/13 19:02 18:43 12/14/2019 18:43 Discharged to Home. Impression: Encounter for fitting and ah adjustment of non-vascular catheter. Condition is Stable. Forms are Medication Reconciliation Form, Thank You Letter, Antibiotic Education, Prescription Opioid Use. Follow up: Emergency Department; When: As needed; Reason: Worsening of condition. Follow up: Private Physician; When: 5 - 6 days; Reason: Recheck today's complaints, Continuance of care, Re-evaluation by your physician. snw
[2019-12-14] MEDS ORDERED: NITROFURAN MACRO 100 MG CAP PO ONE (19:04)
[2019-12-14 19:08] VITALS: BP 167/70; TEMP 98.1; O2SAT 97
== END 2019-12-14 19:02 | disposition home or self-care (01) ==
LOC: ER 17:14
DX: Z46.82 Encounter for fitting and adjustment of non-vascular catheter (principal); I10 Essential (primary) hypertension; E11.9 Type 2 diabetes mellitus without complications; E78.5 Hyperlipidemia, unspecified; E03.9 Hypothyroidism, unspecified
CPT/HCPCS: 99283

== ENCOUNTER 2021-06-13 20:15 | Observation (INO) | payer OTHER, MEDICARE ==
--- OUTSIDE RECORDS SUMMARY | 2021-06-13 20:17 | XMS REPORT | Clinical Summary ---
:1940 Author Organization [facility] Address [address] [place] [address] Care Team Providers Name Role Phone Yadi Childs MD Primary Care Provider MD Elvira Unavailable Anthony Lucero MD Unavailable Allergies No known active allergies Medications Medication Sig Dispensed Refills Start Date End Date Status finasteride (PROSCAR) 5 Take 1 tablet by 0 6 Active mg tablet mouth every evening. levothyroxine Take 1 tablet by 0 03/25/2016 Active (SYNTHROID, LEVOTHROID) mouth daily. 50 mcg tablet tamsulosin (FLOMAX) 0.4 Take 1 capsule 0 04/11/2016 Active mg 24 hr capsule by mouth at bedtime. glimepiride (AMARYL) 4 Take 1 tablet by 0 03/10/2016 Active mg tablet mouth twice daily. oxybutynin (DITROPAN) 5 Take 1 tablet by 0 6 Active mg tablet mouth every evening. metFORMIN (GLUCOPHAGE) 1,000 mg 2 (two) 0 11/04/2015 Active 1000 mg tablet times a day with meals. simvastatin (ZOCOR) 20 Take 1 tablet by 0 04/02/2016 Active mg tablet mouth daily. losartan-hydrochlorothia Take 1 tablet by 0 Active zide (HYZAAR) 100-25 mg mouth daily. per tablet multivitamin Take 1 tablet by 0 Active (multivitamin) tab mouth daily. tablet loratadine (CLARITIN) 10 Take 10 mg by 0 Active mg tablet mouth as needed for allergies. magnesium oxide 500 mg Take 500 mg by 0 Active tablet mouth twice daily. cyanocobalamin (vitamin Take 2,500 mcg 0 Active B-12) 1000 mcg tablet by mouth daily. JANUVIA 50 mg tablet Take 1 tablet by 0 03/02/2016 Active mouth daily. diltiazem (CARDIZEM LA) 0 08/16/2017 Active 360 mg 24 hr tablet amLODIPine (NORVASC) 2.5 Take 1 tablet by 0 07/24/19 19 Active mg tablet mouth daily. silodosin (RAPAFLO) 8 mg Take 1 capsule 0 08/06/2018 Active capsule by mouth daily. dutasteride (AVODART) Take 1 capsule 0 07/24/2018 Active 0.5 mg capsule by mouth daily. Active Problems Problem Noted Date Bilateral impacted cerumen 07/14/2016 Basal cell carcinoma of skin of left ear and external auricular canal 07/14/2016 Active cochlear Meniere disease 05/19/2016 Basal cell carcinoma of skin of right ear 05/12/2016 Sensorineural hearing loss, bilateral 05/12/2016 Asymmetrical sensorineural hearing loss 05/12/2016 Morbid (severe) obesity due to excess calories 016 Essential (primary) hypertension 05/03/2016 Diabetes mellitus due to underlying condition with com plication 05/03/2016 Hypothyroidism 05/03/2016 Hyperlipidemia 05/03/2016 Alcohol use disorder, mild 05/03/2016 Infectious disease 06/13/2014 Overview: infections due to cracks in feet/dry ski n Disorder of thyroid gland 06/13/2013 Overview: take thyroid rx Squamous cell carcinoma of skin of ear 05/28/2013 Overview: right helix Arthritis 06/13/1999 Overview: from injuries and old age Asbestosis 06/13/1994 Diabetes mellitus 06/13/1994 Overview: take meds but not on insulin Hypertension 06/13/1989 Pneumonia 06/13/1970 Open skull fracture without intracranial injury Overview: slip and fall Presence of other specified device Overview: eack knee has total knee replacements Encounters Date Type Specialty Care Team Description 09/04/2020 Orders Only Infectious Diseases Licha Lofton MD S ARS-CoV-2 vaccination after 06/13/2020 Surgical History Surgery Date Site/Laterality Comments MOHS PROCEDURE 05/21/2013 Left left helix and l eft arm MOHS PROCEDURE 05/28/2013 Right right helix COLONOSCOPY 06/13/2013 - about 2 years ag o 06/12/2014 TOTAL KNEE ARTHROPLASTY 06/13/2011 - Right 06/12/2012 TOTAL KNEE ARTHROPLASTY 06/13/2013 - Left 06/12/2014 TX EXC SKIN MALIG <0.5 CM 05/13/2016 Right Proced ure: wide local, FACE,FACIAL Right auricle; Surgeon: Kwame cotto MD; Location: [facility]; Service: HN - H EAD & NECK SURGERY TX SPLIT GRFT TRUNK,ARM,LEG 05/13/2016 Right Proc edure: SPLIT <100 SQCM THICKNESS SKIN G RAFT OF TRUNK/ARM OR LEG ; Surgeon: Kwame cotto MD; Location: [facility]; Service: HN - H EAD & NECK SURGERY Medical History Medical History Date Comments Squamous cell carcinoma of skin of ear 05/28/2013 r ight helix Squamous cell carcinoma of skin of ear 05/21/2013 m orpheaform, left helix Squamous cell carcinoma of skin of 05/18/2013 left antecubital upper limb, including shoulder Squamous cell carcinoma of skin of ear 04/14/2016 r ight conchal bowl Hypertension 1989 Hyperlipidemia 1992 Asbestosis 1994 Pneumonia 1970 Infectious disease 2014 infections due to cr acks in feet/dry skin Fracture 1966 broken arm, ribs 196 6 broken ribs 1976 Arthritis 1999 from injuries and ol d age Presence of other specified device 2011, 2013 [facility] knee has total knee replacements Disorder of thyroid gland 2013 take thyroid r x Diabetes mellitus 1994 take meds but not on insulin Sensorineural hearing loss, bilateral 05/12/2016 Open skull fracture without slip and fal l intracranial injury Family History Medical History Relation Name Comments Coronary heart disease (CHD) Father Heart disease Father -Breast cancer Mother Delfin Paul from [facility] Relation Name Status Comments Father Mother Delfin Paul Social History Tobacco Use Types Packs/Day Years Used Date Former Smoker 29 06/16/1959 - 1 06/23/1986 Smokeless Tobacco: Never Used Tobacco Cessation: Ready to Quit: No Comments: already quit 29 years ago Alcohol Use Standard Drinks/Week Comments Yes 0 (1 standard drink = 0.6 oz pure alcoho l) Sex Assigned at Date Recorded Not on file Obstetrics History Last Filed Vital Signs Not on file Plan of Treatment Health Maintenance Due Date Last Done Comments COVID-19 Vaccination (1) 01/08/1945 Results Not on fileafter 06/13/2020 Insurance Payer Benefit Plan Subscriber ID Effective Phone Address Typ e / Group Dates MEDICARE MEDICARE PART [id number] 2003-Pres [phone] [facility] A AND B ent [id number] [place] [address] STATELESS AARP-SECONDAR [id number] 1992-Pres [address] [employer] ONLY ent [id number] [place] [address] Advance Directives Type Date Recorded Patient Human Anatomy Teacher Explanati on Advance Directives: 05/14/2016 12:00 AM Directive to Physicians Living Will and Family or Surrogates-Carla Mcneill Advance Directives: 05/14/2016 12:00 AM Medical Melanie jenkins Medical Power of [employer] Operations [employer] Code Status Date Activated Date Inactivated Comments Full Code 05/13/2016 1:54 PM 05/13/2016 9:10 PM Care Teams Digital Measurement Advisor Relationship Specialty Start Date End Date Yadi Childs MD PCP - General Head and Neck Surgery 04/23/15 [address] [place] [address] Keysha Felix MD PCP - External Dermatology 04/23/15 Referring Damir Lucero PCP - External Primary Family Practice 04/26/16 MD Anthony Care Provider [address] [place] [id number]
--- OUTSIDE RECORDS SUMMARY | 2021-06-13 20:28 | XMS REPORT | Continuity of Care Document ---
:1940 Author Organization [facility] t Address [address] [place] [address] Care Team Providers Name Role Phone Robina Lucero Primary Care Physician Jarrell Garvin Attending Clinician Unavailable Veda Attending Clinician Unavailable Alma Attending Clinician Unavailable Nirali MARTINEZ Attending Clinician Unavailable Waldo Attending Clinician Unavailable Mary PEARSON T Attending Clinician Do RIVERA Attending Clinician Unavailable Doctor Unassigned, Name Attending Clinician Unavailable Antonio Martinez DPM Attending Clinician Lanette PEARSON Attending Clinician Nirali Martinez DPM Attending Clinician Yevgeniy Beebe MD Attending Clinician Rafal Hightower DO Attending Clinician Mala PEARSON, Liz Attending Clinician Aliza PEARSON T Attending Clinician Wilfredo Méndez MD Attending Clinician Rolly PEARSON Attending Clinician Dano QUINETRO Attending Clinician KENIA RODRIGUEZ Attending Clinician Unavailable Tamra PEARSON Attending Clinician Tomas Attending Clinician Unavailable Maine Marquez Admitting Clinician Unavailable Nirali MARTINEZ Admitting Clinician Unavailable Jarrell Garvin Admitting Clinician Unavailable Alma Admitting Clinician Unavailable Waldo Admitting Clinician Unavailable LIZ COSTA Admitting Clinician Unavailable Tomas Admitting Clinician Unavailable Payers Payer Name Policy Type Policy Number Effective Expiration Source Date Date MEDICARE A B [id number] 2003 00:00:00 [facility] [id number] 2020 HEALTHCARE 00:00:00 MEDICAREMEDICARE PART [id number] 2003 MD Presley Alvarez AND 00:00:00 [id number] 2003- [phone] [employer] [address], [place] [address]Medicare [employer] [id number] 1992 MD Alvarez nderson OF 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 [id number] 3-Present [id number], [place] [address]Zngexkc Problems Condition Condition Condition Status Onset Resolution Last Treating Co mments Source Name Details Category Date Date Treatment Clinician Date Amputation Amputation Disease Active [facility] of little of little 12-22 [facility] toe toe 00:00: of (HCCode) (HCCode) 00 Medici n e Post-opera Post-opera Disease Active [facility] tive state tive state 12 Co llege 00:00: of 00 Medicin e Diabetic Diabetic Disease [facility] infection 00:[facility]: Medi leta 00 Center Encounter Encounter Disease Active [facility] for post for post 12-16 Colleg e surgical surgical 00:00: of wound wound 00 Medicin check check e Visit for Visit for Disease Active [facility] wound wound 12-16 College check check 00:00: of 00 Medicin e Hammertoe Hammertoe Disease Active [place] [facility] [facility] left of left 12-02 College foot foot 00:00: of 00 Medicin e 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 12-02 Colleg e foot foot 00:00: of 00 Medicin e Controlled Controlled Disease Active [facility] type 2 type 2 11-15 [facility] diabetes diabetes 00:00: of mellitus mellitus 00 Medici n with with e diabetic diabetic neuropathy neuropathy , without , without long-term long-term current current use of use of insulin insulin (HCCode) (HCCode) Hyperkerat Hyperkerat Disease Active [facility] osis of osis of [address] [place] [address] sole sole 00:00: of 00 Medicin e Hyperkerat Hyperkerat Disease Active [facility] osis of osis of 11-15 [facility] skin skin 00:00: of 00 Medicin e Callus of Callus of Disease Active [place] foot foot 11-15 [facility] 00:00: of 00 Medicin e DM type 2 DM type 2 Disease Active [place] with with 11-15 [facility] diabetic diabetic 00:00: of peripheral peripheral 00 Me dicin neuropathy neuropathy e (HCCode) (HCCode) Blood Blood Disease Active [place] blister blister 2 [facility] 00:00: of 00 Medicin e Hematoma Hematoma Disease Active [place] of skin of skin 2 [facility] 00:00: of 00 Medicin e Cellulitis Cellulitis Disease Active [facility] of right of right 06-18 Colleg e lower leg lower leg 00:00: of 00 Medicin e 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 06-18 [facility] 00:00: of 00 Medicin e Cellulitis Cellulitis Disease Active 2018-06 [facility] and and 07-08 [facility] abscess of abscess of 00:00: of right right 00 Medicin lower lower e extremity extremity Healed Healed Disease Active 2018-06 [place] ulcer of ulcer of 07-08 Colleg e right foot right foot 00:00: of on on 00 Medicin examinatio examinatio e n n Abscess or Abscess or Disease Active 2018-06 [facility] cellulitis cellulitis 07-08 Co llege of toe, of toe, 00:00: of left left 00 Medicin e Bilateral Bilateral Disease Active impacted impacted 07-14 [...] 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 hearing loss loss Diabetes Diabetes Disease Active 2015-06 [facility] mellitus mellitus 07-03 Colleg e due to due to 00:00: of underlying underlying 00 Me dicin condition condition e with with unspecifie unspecifie d d complicati complicati ons ons (HCCode) (HCCode) Morbid Morbid Disease Active 2015-06 (severe) (severe) 07-03 [facility] o obesity obesity 00:00: n due to due to 00 excess excess calories calories Essential Essential Disease Active 2015-06 (primary) (primary) 07-03 Faheem rso hypertensi hypertensi 00:00: n on on 00 Diabetes Diabetes Disease Active 2015-06 mellitus mellitus 07-03 [facility] o due to due to 00:00: n underlying underlying 00 condition condition with with complicati complicati on on Hypothyroi Hypothyroi Disease Active 2015-06 M Felix dism dism 07-03 [facility] 00:00: n 00 Hyperlipid Hyperlipid Disease Active 2015-06 M Felix emia emia 07-03 [facility] 00:00: n 00 Alcohol Alcohol Disease Active 2015-06 use use 07-03 [facility] disorder, disorder, 00:00: n mild mild 00 Infectious Infectious Disease Active Overview : MD disease disease 06-13 [facility] Johnnie so 00:00: g of this n 00 note might be different from the original. infection s due to cracks in feet/dry skin Disorder Disorder Disease Active Overview: MD of thyroid of thyroid 06-13 [facility] Anderso gland gland 00:00: g of this n 00 note might be different from the original. 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 right helix Arthritis Arthritis Disease Active Overview: 06-13 [facility] Anderso 00:00: g of this n 00 note might be different from the original. from injuries and old age Asbestosis Asbestosis Disease Active M D 06-13 [facility] 00:00: n 00 Diabetes Diabetes Disease Active Overview: mellitus mellitus 06-13 [facility] And erso 00:00: g of this n 00 note might be different from the original. take meds but not on insulin Hypertensi Hypertensi Disease Active M D on on 06-13 [facility] 00:00: n 00 Pneumonia Pneumonia Disease Active 06-13 [facility] 00:00: n 00 Open skull Open skull Disease Active Overview : fracture fracture [facility] ers[facility] without without g of this n intracrani intracrani note al injury al injury might be different from the original. slip and fall Presence Presence Disease Active Overview: of other of other [facility] And erso specified specified g of this n device device note might be different from the original. 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 No known No known Disease Unive rs active active ity of problems problems [facility] Allergies, Adverse Reactions, Alerts Allergy Allergy Status Severity Reaction(s) Onset Inactive Treating Comm ents Source Name Type Date Date Clinician Sulfa DA Active U ITCHING 2020-06 [facility] (Sulfona [facility] 00:00: Orthope Antibiot dic ics) Hospita l Sulfa DA Active U 2020-[facility] Antibiot Medical ics[facility] Center canaglif DA Active U 2020-06 [facility] [place] 00:[facility]: [address] canaglif DA Active U [facility] 2020-06 [facility] [place] 0-28 [place] 00:00: Orthope 00 dic Hospita l Sulfa DA Active U 2020-06 [facility] ([facility]ona 0-16 [place] 00:[facility] [place] canaglif DA Active U 2020-06 [facility] 0-16 [place] 00:00: [address] Sulfa DA Active U [place]CH[place] 2020-06 [facility] (Sulfona 0-16 [place] 00:00: [facility] [place] canaglif DA Active U [place] 2020-06 [facility] [place] 00:[facility]: [address] Sulfa Propensi Active Hives 2018-06 [facility] Antibiot ty to 1-18 [facility] ics adverse 00:00: of reaction 00 Medicin s to e drug canaglif DA Active U [facility]- [place] 00:00: [address] canaglif DA Active U [facility] [facility] [place] 00:[facility]: [address] NO KNOWN Drug Active Univers ALLERGIE Class ity of S [facility] NO KNOWN Allergy Active [facility]ERG[facility] Family History Family Member Diagnosis Comments Start Date Stop Date Source Natural father Coronary heart And tom disease (CHD) Natural father Heart disease MD Faheem rodriguez Natural father Heart attack [facility] Natural mother -Breast cancer And tom Social History Social Habit Start Date Stop Date Quantity Comments Source History of tobacco Cigarette Smoker [facility] History [facility] - Alcohol Comment Medical C enter Exposure to Not sure University of SARS-CoV-2 (event) [facility] Cigarettes smoked 2020-12-05 2020-12-[address] [facility] - current (pack per 00:00:00 00:00:00 Medical Center day) - Reported Cigarette 2020-12-05 2020-12-[address] [facility] - pack-years 00:00:00 00:00:00 [facility] History SDOH 2020-12-05 2020-12-[address] [facility] - Alcohol Frequency 00:00:00 00:00:00 Medical Center History [facility] 2020-12-05 2020-12-[address] [facility] - Alcohol Std Drinks 00:00:00 00:00:00 [facility] History SDOH 2020-12-05 2020-12-05 1 ERIN [place] - Alcohol Binge 00:00:00 00:00:[address] Alcohol intake 2017-08-31 2017-08-31 Current drinker MD Dulce curran 00:00:00 00:00:00 of alcohol (finding) Tobacco use and 2016-04-27 2016-04-27 Smokeless MD Payne on exposure 00:00:00 00:00:00 tobacco non-user Tobacco Comment 2016-04-27 2016-04-27 already quit 29 MD Antonio mederos 00:00:00 00:00:00 years ago Sex [birth year] MD Payne on 00:00:00 00:00:00 Smoking Status Start Date Stop Date Source Unknown if ever smoked [facility] Former smoker 2020-12-05 00:00:00 2020-12-05 00:00:00 [facility] Medications Ordered Filled Start Stop Current Ordering Indication Dosage Frequency Signature Comments Components Source Medication Medication Date Date Medication? Clinician (SIG) Name Name No known 2020-06 No Univers medications 0-10 ity of 14:03: [address] metformin 2020-06 Yes 1000mg Take 1,000 [place] (GLUCOPHAGE 0-06 mg by [facility] ) 1000 MG 15:49: mouth 2 of tablet 25 times Medicin daily e (with meals). Sitagliptin 2020-06 Yes 50mg Take 50 mg [facility] Phosphate 0-06 by mouth Colleg e (JANUVIA) 15:49: every of 100 MG TABS 25 morning. Medi dalia Indication e s: take 1/2 every morning losartan 2020-06 Yes 100mg Take 100 [place] [facility] (COZAAR) 0-06 mg by [place] 100 MG 15:49: mouth of tablet 25 daily. Medicin e metformin Yes 1000mg Take 1,000 [place] (GLUCOPHAGE 9-20 mg by [facility] ) 1000 MG 10:19: mouth 2 of tablet 53 times Medicin daily e (with meals). Sitagliptin Yes 50mg Take 50 mg [facility] Phosphate 9-20 by mouth Colleg e (JANUVIA) 10:19: every of 100 MG TABS 53 morning. Medi dalia Indication e s: take 1/2 every morning losartan 2020-0 Yes 100mg Take 100 [facility] (COZAAR) 9-20 mg by College 100 MG 10:19: mouth of tablet 53 daily. Medicin e metformin 2020-0 Yes 1000mg Take 1,000 [facility] (GLUCOPHAGE 9-20 mg by [place] ) 1000 MG 10:19: mouth 2 of tablet 53 times Medicin daily e (with meals). Sitagliptin 2020-0 Yes 50mg Take 50 mg [facility] Phosphate 9-20 by mouth Colleg e (JANUVIA) 10:19: every of 100 MG TABS 53 morning. Medi dalia Indication e s: take 1/2 every morning losartan 2020-0 Yes 100mg Take 100 [facility] [facility] (COZAAR) 9-20 mg by College 100 MG 10:19: mouth of tablet 53 daily. Medicin e metformin 2020-0 Yes 1000mg Take 1,000 [facility] (GLUCOPHAGE 9-08 mg by [place] ) 1000 MG 14:17: mouth 2 of tablet 14 times Medicin daily e (with meals). Sitagliptin 2020-0 Yes 50mg Take 50 mg [facility] Phosphate 9-08 by mouth Colleg e (JANUVIA) 14:17: every of 100 MG TABS 14 morning. Medi dalia Indication e s: take 1/2 every morning losartan 2020-0 Yes 100mg Take 100 [place] [facility] (COZAAR) 9-08 mg by [facility] 100 MG 14:17: mouth of tablet 14 daily. Medicin e metformin 2020-0 Yes 1000mg Take 1,000 [place] (GLUCOPHAGE 9-08 mg by [facility] ) 1000 MG 14:17: mouth 2 of tablet 14 times Medicin daily e (with meals). Sitagliptin 2020-0 Yes 50mg Take 50 mg [place] Phosphate 9-08 by mouth Colleg e (JANUVIA) 14:17: every of 100 MG TABS 14 morning. Medi dalia Indication e s: take 1/2 every morning losartan 2020-0 Yes 100mg Take 100 [facility] [facility] (COZAAR) 9-08 mg by [facility] 100 MG 14:17: mouth of tablet 14 daily. Medicin e mupirocin 0 Yes Apply to [facility] (BACTROBAN) 9-08 affected [facility]o ege 2 % 00:00: toe daily of ointment 00 Medicin e mupirocin Yes Apply to [facility] (BACTROBAN) 02-18 affected [facility]o ege 2 % 00:00: toe daily of ointment 00 Medicin e mupirocin 0 Yes Apply to [facility] (BACTROBAN) 02-18 affected [facility]o ege 2 % 00:00: toe daily of ointment 00 Medicin e mupirocin Yes Apply to [facility] (BACTROBAN) 02-18 affected Alfredo ege 2 % 00:00: toe daily of ointment 00 Medicin e mupirocin Yes Apply to [facility] (BACTROBAN) 02-18 affected Alfredo ege 2 % 00:00: toe daily of ointment 00 Medicin e metformin Yes 1000mg Take 1,000 [place] (GLUCOPHAGE 8-31 mg by [facility] ) 1000 MG 15:03: mouth 2 of tablet 39 times Medicin daily e (with meals). Sitagliptin Yes 50mg Take 50 mg [facility] Phosphate 8-31 by mouth Colleg e (JANUVIA) 15:03: every of 100 MG TABS 39 morning. Medi dalia Indication e s: take 1/2 every morning losartan 0 Yes 100mg Take 100 [place] [facility] (COZAAR) 8-31 mg by [facility] 100 MG 15:03: mouth of tablet 39 daily. Medicin e metformin Yes 1000mg Take 1,000 [place] (GLUCOPHAGE 8-31 mg by [facility] ) 1000 MG 15:03: mouth 2 of tablet 39 times Medicin daily e (with meals). Sitagliptin Yes 50mg Take 50 mg [facility] Phosphate 8-31 by mouth Colleg e (JANUVIA) 15:03: every of 100 MG TABS 39 morning. Medi dalia Indication e s: take 1/2 every morning losartan 2020-0 Yes 100mg Take 100 [place] [facility] (COZAAR) 8-31 mg by [facility] 100 MG 15:03: mouth of tablet 39 daily. Medicin e metformin Yes 1000mg Take 1,000 [place] (GLUCOPHAGE 8-27 mg by [facility] ) 1000 MG 13:38: mouth 2 of tablet 30 times Medicin daily e (with meals). Sitagliptin 2021-0 Yes 50mg Take 50 mg [place] Phosphate 8-27 by mouth Colleg e (JANUVIA) 13:38: every of 100 MG TABS 30 morning. Medi dalia Indication e s: take 1/2 every morning losartan 202-0 Yes 100mg Take 100 [place] [facility] (COZAAR) 8-27 mg by [facility] 100 MG 13:38: mouth of tablet 30 daily. Medicin e metformin 202-0 Yes 1000mg Take 1,000 [place] (GLUCOPHAGE 8-27 mg by [facility] ) 1000 MG 13:38: mouth 2 of tablet 30 times Medicin daily e (with meals). Sitagliptin 2021-0 Yes 50mg Take 50 mg [facility] Phosphate 8-27 by mouth Colleg e (JUNUVIA) 13:38: every of 100 MG TABS 30 morning. Medi dalia Indication e s: take 1/2 every morning losartan 2020-0 Yes 100mg Take 100 [place] [facility] (COZAAR) 8-27 mg by [facility] 100 MG 13:38: mouth of tablet 30 daily. Medicin e metformin 2020-0 Yes 1000mg Take 1,000 [facility] (GLUCOPHAGE 8-27 mg by [place] ) 1000 MG 13:38: mouth 2 of tablet 30 times Medicin daily e (with meals). Sitagliptin 2020-0 Yes 50mg Take 50 mg [place] Phosphate 8-27 by mouth Colleg e (JUNUVIA) 13:38: every of 100 MG TABS 30 morning. Medi dalia Indication e s: take 1/2 every morning losartan 2020-0 Yes 100mg Take 100 [place] [facility] (COZAAR) 8-27 mg by [facility] 100 MG 13:38: mouth of tablet 30 daily. Medicin e clindamycin 2021-0 Yes 300mg Take 1 [place] (CLEOCIN) 8-27 capsule by Alfredo ege 300 MG 00:00: mouth 3 of capsule 00 times Medicin daily. e clindamycin 2021-0 Yes 300mg Take 1 [place] (CLEOCIN) 8-27 capsule by Alfredo ege 300 MG 00:00: mouth 3 of capsule 00 times Medicin daily. e clindamycin 2021-0 Yes 300mg Take 1 [place] (CLEOCIN) 8-27 capsule by Alfredo ege 300 MG 00:00: mouth 3 of capsule 00 times Medicin daily. e clindamycin 2021-0 Yes 300mg Take 1 [place] (CLEOCIN) 8-27 capsule by Alfredo ege 300 MG 00:00: mouth 3 of capsule 00 times Medicin daily. e clindamycin 1-0 Yes 300mg Take 1 [place] (CLEOCIN) 8-27 capsule by Alfredo ege 300 MG 00:00: mouth 3 of capsule 00 times Medicin daily. e clindamycin 1-0 Yes 300mg Take 1 [place] (CLEOCIN) 8-27 capsule by Alfredo ege 300 MG 00:00: mouth 3 of capsule 00 times Medicin daily. e clindamycin 1-0 Yes 300mg Take 1 [place] (CLEOCIN) 8-27 capsule by Alfredo ege 300 MG 00:00: mouth 3 of capsule 00 times Medicin daily. e clindamycin 1-0 Yes 300mg Take 1 [place] (CLEOCIN) 8-27 capsule by Alfredo ege 300 MG 00:00: mouth 3 of capsule 00 times Medicin daily. e mupirocin 2020-0 Yes Apply to [facility] (BACTROBAN) 8 affected Alfredo ege 2 % 00:00: area daily of ointment 00 Medicin e mupirocin 2020-0 Yes Apply to [facility] (BACTROBAN) 824 affected Alfredo ege 2 % 00:00: area daily of ointment 00 Medicin e mupirocin 2020-0 Yes Apply to [facility] (BACTROBAN) 8 affected Alfredo ege 2 % 00:00: area daily of ointment 00 Medicin e mupirocin 2020-0 Yes Apply to [facility] (BACTROBAN) 8 affected Alfredo ege 2 % 00:00: area daily of ointment 00 Medicin e mupirocin 2020-0 2020- No Apply to [place] (BACTROBAN) 02-03 affected [facility] 2 % 00:00: 00:00 area daily of ointment 00 :00 Medicin e mupirocin 2020-0 2020- No Apply to [place] (BACTROBAN) 02-03 affected [facility] 2 % 00:00: 00:00 area daily of ointment 00 :00 Medicin e metFORMIN 1-0 Yes 1000mg Take 1,[address] [facility] [facility] (GLUCOPHAGE 8-10 mg [facility] - ) 1000 MG 13:35: mouth 2 Medic al tablet 16 (two) Center times daily with breakfast and dinner. losartan Yes 100mg QD Take [address] (COZAAR) 8-10 mg by [facility] - 100 MG 13:35: mouth Medical tablet 16 daily. Center levothyroxi Yes 100ug Take [address] ne 8-10 mcg by [facility] - (SYNTHROID, 13:35: mouth Medic al LEVOTHROID) 16 Every Center 100 MCG morning on tablet an empty stomach. SITagliptin Yes 100mg QD Take [address] (JANUVIA) 8-10 mg by [facility] - 100 MG 13:35: mouth Medical tablet 16 daily. Center glimepiride Yes 4mg Q.5D Take [address] (AMARYL) 4 8-10 by mouth 2 Óscar es - MG tablet 13:35: (two) Medical 16 times Center daily. simvastatin Yes 20mg QD Take [address] (ZOCOR) 20 8-10 by mouth [facility] - MG tablet 13:35: nightly. Medi leta 16 Center tamsulosin Yes .4mg QD Take 0.[address] (FLOMAX) 8-10 mg by [facility] - 0.4 mg Cap 13:35: mouth Medica l 24 hr 16 daily. [place] capsule finasteride Yes 5mg QD Take [address] (PROSCAR) 5 8-10 by mouth Luke s - mg tablet 13:35: nightly . Med ical 16 [place] fluticasone Yes 1{spray QD [address] [facility] [facility] propionate 8-10 } Nasal [facility] - (FLONASE) 13:35: route Medical 50 16 daily. Center mcg/actuati on nasal spray aspirin 325 Yes 325mg QD Take [address] MG tablet 8-10 mg by [facility] - 13:35: mouth Medical 16 nightly . Center magnesium Yes 500mg Q.5D Take [address] gluconate 8-10 mg by [facility] - (MAGONATE) 13:35: mouth 2 Medi leta 27.5 mg 16 (two) Center magne- sium times (500 mg) daily. tablet amLODIPine 2021-0 Yes 5mg QD Take [address] (NORVASC) 8-10 by mouth [facility] - 2.5 MG 13:35: daily. Medical tablet 16 Center levofloxaci 2020- No Inject [place] n 750 7-21 07-21 into the [place] MG/150ML 14:12: 00:00 vein. of SOLN 42 :00 Medicin e metformin 2020-0 Yes 1000mg Take 1,000 [facility] (GLUCOPHAGE 7-21 mg by [place] ) 1000 MG 14:12: mouth 2 of tablet 39 times Medicin daily e (with meals). Sitagliptin 0 Yes 50mg Take 50 mg [facility] Phosphate 7-21 by mouth Colleg e (JANUVIA) 14:12: every of 100 MG TABS 39 morning. Medi dalia Indication e s: take 1/2 every morning losartan 0 Yes 100mg Take 100 [place] [facility] (COZAAR) 7-21 mg by [place] 100 MG 14:12: mouth of tablet 39 daily. Medicin e metformin 0 Yes 1000mg Take 1,000 [facility] (GLUCOPHAGE 7-07 mg by [place] ) 1000 MG 13:16: mouth 2 of tablet 39 times Medicin daily e (with meals). Sitagliptin 0 Yes 50mg Take 50 mg [place] Phosphate 7-07 by mouth Colleg e (JANUVIA) 13:16: every of 100 MG TABS 39 morning. Medi dalia Indication e s: take 1/2 every morning losartan 2020-0 Yes 100mg Take 100 [place] [facility] (COZAAR) 7-07 mg by [place] 100 MG 13:16: mouth of tablet 39 daily. Medicin e levofloxaci Yes Inject [place] [facility] n 750 7-07 into the [place] MG/150ML 13:16: vein. of SOLN 39 Medicin e isosorbide 2020-2020- No 60mg QD Take [address] mononitrate 6-30 08-10 tablet (60 [facility] - (IMDUR) 60 00:00: 00:00 mg total) M edical MG 24 hr 00 :00 by mouth Center tablet daily for 90 days. diltiazem 2020-0 2020- No 360mg QD Take [address] (CARDIZEM 6-29 06-29 mg by [facility] - [place]) 180 mg 08:41: 00:00 mouth Medic al 24 hr 09 :00 nightly. Center tablet amLODIPine 2020- No 2.5mg QD Take 2.[address] (NORVASC) 12-09-29 mg by [facility] - 2.5 MG 08:40: 00:00 mouth Medical tablet 25 :00 daily . [place] diltiazem 2020- No 180mg QD Take [address] (CARDIZEM 12-09 08-10 tablet [facility] - [place]) 180 mg 00:00: 00:00 (180 mg Med ical 24 hr 00 :00 total) by Center tablet mouth daily for 90 days. levoFLOXaci 2020- No 750mg Q24H Take [address] n 12-09 tablet [facility] - (LEVAQUIN) 00:00: 23:59 (750 mg Med ical 750 MG 00 :00 total) by Center tablet mouth daily for 10 days. traMADoL 2020- No 50mg Take [address] (ULTRAM) 50 12-09 tablet (50 [facility] - mg tablet 00:00: 23:59 mg total) Me dical 00 :00 by mouth Center every 12 (twelve) hours as needed for up to 10 days. Max Daily Amount: 100 mg amLODIPine 2020- No 5mg QD Take [address] (NORVASC) 12-08-25 by mouth [facility] - 2.5 MG 18:33: 00:00 daily. Medical tablet 16 :00 [place] metformin Yes 1000mg Take 1,000 [place] (GLUCOPHAGE 5-26 mg by [place] ) 1000 MG 16:04: mouth 2 of tablet 17 times Medicin daily e (with meals). Sitagliptin Yes 50mg Take 50 mg [place] Phosphate 5-26 by mouth Colleg e (JANUVIA) 16:04: every of 100 MG TABS 17 morning. Medi dalia Indication e s: take 1/2 every morning losartan Yes 100mg Take 100 [facility] (COZAAR) 5-26 mg by [place] 100 MG 16:04: mouth of tablet 17 daily. Medicin e metformin Yes 1000mg Take 1,000 [place] (GLUCOPHAGE 4-28 mg by [facility] ) 1000 MG 18:38: mouth 2 of tablet 22 times Medicin daily e (with meals). Sitagliptin 2020-0 Yes 100mg Take 100 [facility] Phosphate 4-28 mg by [place] ([facility]) 18:38: mouth of 100 MG TABS 22 every Medicin morning. e Indication s: take 1/2 every morning metformin 2020-1 Yes 1000mg Take 1,000 [place] (GLUCOPHAGE 1-17 mg by [facility] ) 1000 MG 21:53: mouth 2 of tablet 17 times Medicin daily e (with meals). Sitagliptin 2020-1 Yes 100mg Take 100 [facility] Phosphate 1-17 mg by [place] ([facility]) 21:53: mouth of 100 MG TABS 17 every Medicin morning. e Indication s: take 1/2 every morning amoxicillin 2020-0 2020- No amoxicilli [facility] -clavulanat 7-14 07-14 n 875 Colle e e 21:12: 00:00 mg-potassi of (AUGMENTIN) 43 :00 um Medicin 875-125 MG clavulanat e per tablet e 125 mg tablet Take 1 tablet every 12 hours by oral route for 7 days. metformin 2020-0 Yes 1000mg Take 1,000 [facility] (GLUCOPHAGE 7-06 mg by [place] ) 1000 MG 15:28: mouth 2 of tablet 15 times Medicin daily e (with meals). Sitagliptin 2020-0 Yes 100mg Take 100 [facility] Phosphate 7-06 mg by [place] ([facility]) 15:28: mouth of 100 MG TABS 15 every Medicin morning. e Indication s: take 1/2 every morning metformin 2020-0 Yes 1000mg Take 1,000 [facility] (GLUCOPHAGE 6-26 mg by [place] ) 1000 MG 15:49: mouth 2 of tablet 59 times Medicin daily e (with meals). Sitagliptin 2020-0 Yes 100mg Take 100 [facility] Phosphate 6-26 mg by [facility] ([facility]) 15:49: mouth of 100 MG TABS 59 every Medicin morning. e Indication s: take 1/2 every morning amoxicillin 2020-0 Yes amoxicilli [facility] -clavulanat 6-26 n 875 College e 15:49: mg-potassi of (AUGMENTIN) 59 um Medicin 875-125 MG clavulanat e per tablet e 125 mg tablet Take 1 tablet every 12 hours by oral route for 7 days. metformin 2020-0 Yes 1000mg Take 1,000 [facility] (GLUCOPHAGE 6-26 mg by [facility] ) 1000 MG 15:49: mouth 2 of tablet 59 times Medicin daily e (with meals). Sitagliptin 2020-0 Yes 100mg Take 100 [facility] Phosphate 6-26 mg by [facility] ([facility]) 15:49: mouth of 100 MG TABS 59 every Medicin morning. e Indication s: take 1/2 every morning amoxicillin 2020-0 Yes amoxicilli [facility] -clavulanat 6-26 n 875 College e 15:49: mg-potassi of (AUGMENTIN) 59 um Medicin 875-125 MG clavulanat e per tablet e 125 mg tablet Take 1 tablet every 12 hours by oral route for 7 days. ciprofloxac 2020-0 2020- No 500mg Take 1 Tab [facility] in (CIPRO) 11-29 by mouth [facility] 500 MG 00:00: 04:59 two times of tablet 00 :00 daily for Medicin 7 days. e ciprofloxac 2020-0 2020- No 500mg Take 1 Tab [facility] in (CIPRO) 11-29 by mouth [facility] 500 MG 00:00: 04:59 two times of tablet 00 :00 daily for Medicin 7 days. e metformin 2020-0 Yes 1000mg Take 1,000 [facility] (GLUCOPHAGE 6-05 mg by [facility] ) 1000 MG 16:04: mouth 2 of tablet 36 times Medicin daily e (with meals). Sitagliptin 2020-0 Yes 100mg Take 100 [facility] [place] Phosphate 6-05 mg by [facility] ([facility]) 16:04: mouth of 100 MG TABS 36 every Medicin morning. e Indication s: take 1/2 every morning metformin 2020-0 Yes 1000mg Take 1,000 [facility] (GLUCOPHAGE 3-06 mg by [facility] ) 1000 MG 17:22: mouth 2 of tablet 36 times Medicin daily e (with meals). Sitagliptin 2020-0 Yes 100mg Take 100 [facility] [place] Phosphate 3-06 mg by [facility] ([facility]) 17:22: mouth of 100 MG TABS 36 every Medicin morning. e Indication s: take 1/2 every morning metformin 2020-0 Yes 1000mg Take 1,000 [facility] (GLUCOPHAGE 2-03 mg by [facility] ) 1000 MG 14:49: mouth 2 of tablet 31 times Medicin daily e (with meals). Sitagliptin Yes 100mg Take 100 [facility] Phosphate 2-03 mg by [facility] ([facility]) 14:49: mouth of 100 MG TABS 31 every Medicin morning. e Indication s: take 1/2 every morning minocycline 2018-06 Yes 100mg Take 1 Tab [facility] (DYNACIN) 2-27 by mouth [facility] 100 MG 00:00: two times of tablet 00 daily. For Medicin cellulitis e minocycline 2018-06 2020- No 100mg Take 1 Tab [facility] (DYNACIN) 2-27 03-06 by mouth [facility]le [facility] 100 MG 00:00: 00:00 two times of tablet 00 :00 daily. For Medicin cellulitis e mupirocin 2018-06 Yes Apply to [facility] calcium 1-12 wound in [facility] (BACTROBAN) 00:00: leg, twice of 2 % nasal 00 a day Medicin ointment e mupirocin 2018-06 Yes Apply to [facility] calcium 1-12 wound in [facility] (BACTROBAN) 00:00: leg, twice of 2 % nasal 00 a day Medicin ointment e mupirocin 2018-06 2020- No Apply to [facility] calcium 1-12 06-05 wound in R [facility] (BACTROBAN) 00:00: 00:00 leg, twice of 2 % nasal 00 :00 a day Medicin ointment e metformin 2018-06 Yes 1000mg Take 1,000 [facility] (GLUCOPHAGE 0-08 mg by [facility] ) 1000 MG 20:58: mouth 2 of tablet 39 times Medicin daily e (with meals). Sitagliptin 2018-06 Yes 100mg Take 100 [facility] Phosphate 0-08 mg by [facility] ([facility]) 20:58: mouth of 100 MG TABS 39 every Medicin morning. e Indication s: take 1/2 every morning metformin 2018-06 Yes 1000mg Take 1,000 [facility] (GLUCOPHAGE 0-08 mg by [facility] ) 1000 MG 13:24: mouth 2 of tablet 40 times Medicin daily e (with meals). Sitagliptin 2018-06 Yes 100mg Take 100 [facility] [place] Phosphate 0-08 mg by [facility] ([facility]) 13:24: mouth of 100 MG TABS 40 every Medicin morning. e Indication s: take 1/2 every morning amoxicillin 2018-06 2019- No [id number] 1{tbl} Take 1 Tab [facility] -clavulanat 0-08 11-06 by mouth [facility] e 00:00: 05:59 two times of (AUGMENTIN) 00 :00 daily for Med icin 875-125 MG 28 days. e per tablet amoxicillin 2018-06 2019- No [id number] 1{tbl} Take 1 Tab [facility] -clavulanat 0-08 11-06 by mouth [facility] e 00:00: 05:59 two times of (AUGMENTIN) 00 :00 daily for Med icin 875-125 MG 28 days. e per tablet metformin 2019-0 Yes 1000mg Take 1,000 [facility] (GLUCOPHAGE 9-24 mg by [facility] ) 1000 MG 18:04: mouth 2 of tablet 17 times Medicin daily e (with meals). Sitagliptin 2019-0 Yes 100mg Take 100 [facility] Phosphate 9-24 mg by [facility] () 18:04: mouth of 100 MG TABS 17 every Medicin morning. e Indication s: take 1/2 every morning metformin 2019-0 Yes 1000mg Take 1,000 [facility] (GLUCOPHAGE 9-24 mg by [facility] ) 1000 MG 18:04: mouth 2 of tablet 17 times Medicin daily e (with meals). Sitagliptin 2019-0 Yes 100mg Take 100 [facility] Phosphate 9-24 mg by [facility] () 18:04: mouth of 100 MG TABS 17 every Medicin morning. e Indication s: take 1/2 every morning metformin 2019-0 Yes 1000mg Take 1,000 [facility] (GLUCOPHAGE 9-24 mg by [facility] ) 1000 MG 14:57: mouth 2 of tablet 11 times Medicin daily e (with meals). Sitagliptin 2019-0 Yes 100mg Take 100 [facility] [place] Phosphate 9-24 mg by [facility] () 14:57: mouth of 100 MG TABS 11 every Medicin morning. e Indication s: take 1/2 every morning metformin 2019-0 Yes 1000mg Take 1,000 [facility] (GLUCOPHAGE 9-11 mg by [facility] ) 1000 MG 14:46: mouth 2 of tablet 14 times Medicin daily e (with meals). Sitagliptin 2019-0 Yes 50mg Take 50 mg [facility] Phosphate 9-11 by mouth [facility] () 14:46: every of 100 MG TABS 14 morning. Medi dalia Indication e s: take 1/2 every morning Vitamins A 2018- Yes [id number] Apply to [facility] & D ([facility]) 02-21 affected [facility] CREA 00:00: area twice of 00 daily. Medicin e Vitamins A Yes [id number] Apply to [facility] & D ([facility]) 02-21 affected [facility] CREA 00:00: area twice of 00 daily. Medicin e Vitamins A Yes [id number] Apply to [facility] & D ([facility]) 02-21 affected [facility] CREA 00:00: area twice of 00 daily. Medicin e mupirocin Yes [id number] Apply to [facility] (BACTROBAN) 02-21 affected [facility] 2 % 00:00: area of ointment 00 daily. Medicin e Vitamins A Yes [id number] Apply to [facility] & D ([facility]) 02-21 affected [facility] CREA 00:00: area twice of 00 daily. Medicin e mupirocin Yes [id number] Apply to [facility] (BACTROBAN) 02-21 affected [facility] 2 % 00:00: area of ointment 00 daily. Medicin e Vitamins A Yes [id number] Apply to [facility] & D ([facility]) 02-21 affected [facility] CREA 00:00: area twice of 00 daily. Medicin e mupirocin Yes [id number] Apply to [facility] (BACTROBAN) 02-21 affected [facility] 2 % 00:00: area of ointment 00 daily. Medicin e Vitamins A Yes [id number] Apply to [facility] & D ([facility]) 02-21 affected [facility] CREA 00:00: area twice of 00 daily. Medicin e mupirocin 0 Yes [id number] Apply to [facility] (BACTROBAN) 02-21 affected [facility] 2 % 00:00: area of ointment 00 daily. Medicin e Vitamins A Yes [id number] Apply to [facility] & D ([facility]) 02-21 affected [facility] CREA 00:00: area twice of 00 daily. Medicin e mupirocin Yes [id number] Apply to [facility] (BACTROBAN) 02-21 affected [facility] 2 % 00:00: area of ointment 00 daily. Medicin e Vitamins A Yes [id number] Apply to [facility] & D ([facility]) 02-21 affected [facility] CREA 00:00: area twice of 00 daily. Medicin e Vitamins A Yes [id number] Apply to [facility] & D ([facility]) 02-21 affected [facility] CREA 00:00: area twice of 00 daily. Medicin e mupirocin Yes [id number] Apply to [facility] (BACTROBAN) 02-21 affected [facility] 2 % 00:00: area of ointment 00 daily. Medicin e Vitamins A Yes [id number] Apply to [facility] & D ([facility]) 02-21 affected [facility] CREA 00:00: area twice of 00 daily. Medicin e Vitamins A Yes [id number] Apply to [facility] & D ([facility]) 02-21 affected [facility] CREA 00:00: area twice of 00 daily. Medicin e Vitamins A Yes [id number] Apply to [facility] & D ([facility]) 02-21 affected [facility] CREA 00:00: area twice of 00 daily. Medicin e Vitamins A Yes [id number] Apply to [facility] & D ([facility]) 02-21 affected [place] CREA 00:00: area twice of 00 daily. Medicin e Vitamins A Yes [id number] Apply to [facility] & D ([facility]) 02-21 affected [facility] CREA 00:00: area twice of 00 daily. Medicin e Vitamins A 0 Yes [id number] Apply to [facility] & D ([facility]) 02-21 affected [facility] CREA 00:00: area twice of 00 daily. Medicin e Vitamins A Yes [id number] Apply to [facility] & D ([facility]) 02-21 affected [facility] CREA 00:00: area twice of 00 daily. Medicin e Vitamins A Yes [id number] Apply to [facility] & D ([facility]) 02-21 affected [facility] CREA 00:00: area twice of 00 daily. Medicin e Vitamins A Yes [id number] Apply to [facility] & D ([facility]) 02-21 affected [facility] CREA 00:00: area twice of 00 daily. Medicin e Vitamins A Yes [id number] Apply to [facility] & D ([facility]) 02-21 affected [facility] CREA 00:00: area twice of 00 daily. Medicin e Vitamins A Yes [id number] Apply to [facility] & D ([facility]) 02-21 affected [facility] CREA 00:00: area twice of 00 daily. Medicin e Vitamins A Yes [id number] Apply to [facility] & D ([facility]) 02-21 affected [facility] CREA 00:00: area twice of 00 daily. Medicin e Vitamins A Yes [id number] Apply to [facility] & D ([facility]) 02-21 affected [facility] CREA 00:00: area twice of 00 daily. Medicin e Vitamins A Yes [id number] Apply to [facility] & D ([facility]) 02-21 affected [facility] CREA 00:00: area twice of 00 daily. Medicin e Vitamins A Yes [id number] Apply to [facility] & D ([facility]) 02-21 affected [facility] CREA 00:00: area twice of 00 daily. Medicin e Vitamins A Yes [id number] Apply to [facility] & D ([facility]) 02-21 affected [facility] CREA 00:00: area twice of 00 daily. Medicin e mupirocin 2020- No [id number] Apply to [facility] (BACTROBAN) 02-21 affected [facility] 2 % 00:00: 00:00 area of ointment 00 :00 daily. Medicin e amoxicillin 2019- No [id number] 1{tbl} Take 1 Tab [facility] -clavulanat 02-21 10-10 by mouth [facility] e 00:00: 04:59 two times of (AUGMENTIN) 00 :00 daily for Med icin 875-125 MG 28 days. e per tablet amoxicillin 2019- No [id number] 1{tbl} Take 1 Tab [facility] -clavulanat 9-11 10-10 by mouth [facility] e 00:00: 04:59 two times of (AUGMENTIN) 00 :00 daily for Med icin 875-125 MG 28 days. e per tablet amoxicillin 2019- No [id number] 1{tbl} Take 1 Tab [facility] -clavulanat 9-11 10-10 by mouth [facility] e 00:00: 04:59 two times of (AUGMENTIN) 00 :00 daily for Med icin 875-125 MG 28 days. e per tablet amoxicillin 2019- No [id number] 1{tbl} Take 1 Tab [facility] -clavulanat 9-11 10-10 by mouth [facility] e 00:00: 04:59 two times of (AUGMENTIN) 00 :00 daily for Med icin 875-125 MG 28 days. e per tablet amoxicillin 2019- No [id number] 1{tbl} Take 1 Tab [facility] -clavulanat 9-11 10-08 by mouth [facility] e 00:00: 00:00 two times of (AUGMENTIN) 00 :00 daily for Med icin 875-125 MG 28 days. e per tablet amoxicillin 2019- No [id number] 1{tbl} Take 1 Tab [facility] -clavulanat 9-03 09-11 by mouth [facility] e 00:00: 00:00 two times of (AUGMENTIN) 00 :00 daily for Med icin 875-125 MG 14 days. e per tablet metformin Yes 1000mg Take 1,000 [facility] (GLUCOPHAGE 8-26 mg by [facility] ) 1000 MG 19:16: mouth 2 of tablet 35 times Medicin daily e (with meals). Sitagliptin 0 Yes 50mg Take 50 mg [facility] Phosphate 8-26 by mouth [facility] ([facility]) 19:16: every of 100 MG TABS 35 morning. Medi dalia Indication e s: take 1/2 every morning cephALEXin 2019- No [id number] 500mg Take 1 Cap [facility] (KEFLEX) 8- 09-10 00 by mouth [facility] 500 MG 00:00: 04:59 four times of capsule 00 :00 daily for Medicin 14 days. e amoxicillin 2019- No 2{tbl} Take 2 [facility] -clavulanat 8-13 08-26 Tabs by [facility] e 00:00: 00:00 mouth of (AUGMENTIN) 00 :00 daily. Medici n 250-125 MG e per tablet Tamsulosin 2019-0 Yes .4mg Take 0.4 [facility] HCl 0.4 MG 8-12 mg by [facility] CAPS 00:00: mouth of 00 daily. Medicin e Tamsulosin 2019-0 Yes .4mg Take 0.4 [facility] [facility] HCl 0.4 MG 8-12 mg by [facility] CAPS 00:00: mouth of 00 daily. Medicin e Tamsulosin 2019-0 Yes .4mg Take 0.4 [facility] [facility] HCl 0.4 MG 8-12 mg by [facility] CAPS 00:00: mouth of 00 daily. Medicin e losartan-hy 2019-0 Yes [facility] drochloroth 8-12 [facility] iazide 00:00: of (HYZAAR) 00 Medicin 100-25 MG e per tablet Tamsulosin 2019-0 Yes [facility] HCl 0.4 MG 8-12 College CAPS 00:00: of 00 Medicin e losartan-hy 2019-0 Yes Take by [facility] drochloroth 8-12 mouth [facility] iazide 00:00: daily. of (HYZAAR) 00 Medicin 100-25 MG e per tablet Tamsulosin 2019-0 Yes Take by [facility] HCl 0.4 MG 8-12 mouth [facility] CAPS 00:00: daily. of 00 Medicin e losartan-hy 2019-0 Yes Take by [facility] drochloroth 8-12 mouth [facility] iazide 00:00: daily. of (HYZAAR) 00 Medicin 100-25 MG e per tablet Tamsulosin 2019-0 Yes Take by [facility] HCl 0.4 MG 8-12 mouth [facility] CAPS 00:00: daily. of 00 Medicin e losartan-hy 2019-0 Yes Take by [facility] drochloroth 8-12 mouth [facility] iazide 00:00: daily. of (HYZAAR) 00 Medicin 100-25 MG e per tablet Tamsulosin 2019-0 Yes Take by [facility] HCl 0.4 MG 8-12 mouth [facility] CAPS 00:00: daily. of 00 Medicin e losartan-hy 2019-0 Yes Take by [facility] drochloroth 8-12 mouth [facility] iazide 00:00: daily. of (HYZAAR) 00 Medicin 100-25 MG e per tablet Tamsulosin 2019-0 Yes Take by [facility] HCl 0.4 MG 8-12 mouth [facility] CAPS 00:00: daily. of 00 Medicin e losartan-hy 2019-0 Yes Take by [facility] drochloroth 8-12 mouth [facility] iazide 00:00: daily. of (HYZAAR) 00 Medicin 100-25 MG e per tablet Tamsulosin 2019-0 Yes .4mg Take 0.4 [facility] HCl 0.4 MG 8-12 mg by [facility] CAPS 00:00: mouth of 00 daily. Medicin e losartan-hy 2019-0 Yes Take by [facility] drochloroth 8-12 mouth [facility] iazide 00:00: daily. of (HYZAAR) 00 Medicin 100-25 MG e per tablet Tamsulosin 2019-0 Yes .4mg Take 0.4 [facility] HCl 0.4 MG 8-12 mg by [facility] CAPS 00:00: mouth of 00 daily. Medicin e Tamsulosin 2019-0 Yes .4mg Take 0.4 [facility] HCl 0.4 MG 8-12 mg by [facility] CAPS 00:00: mouth of 00 daily. Medicin e losartan-hy 2019-0 Yes Take by [facility] drochloroth 8-12 mouth [facility] iazide 00:00: daily. of (HYZAAR) 00 Medicin 100-25 MG e per tablet Tamsulosin 2019-0 Yes .4mg Take 0.4 [facility] HCl 0.4 MG 8-12 mg by [facility] CAPS 00:00: mouth of 00 daily. Medicin e losartan-hy 2019-0 Yes Take by [facility] drochloroth 8-12 mouth [facility] iazide 00:00: daily. of (HYZAAR) 00 Medicin 100-25 MG e per tablet Tamsulosin 2019-0 Yes .4mg Take 0.4 [place] [facility] HCl 0.4 MG 8-12 mg by [facility] CAPS 00:00: mouth of 00 daily. Medicin e losartan-hy 2019-0 Yes Take by [facility] drochloroth 8-12 mouth [facility] iazide 00:00: daily. of (HYZAAR) 00 Medicin 100-25 MG e per tablet Tamsulosin 2019-0 Yes .4mg Take 0.4 [place] [facility] HCl 0.4 MG 8-12 mg by [facility] CAPS 00:00: mouth of 00 daily. Medicin e losartan-hy 2019-0 Yes Take by [facility] drochloroth 8-12 mouth [facility] iazide 00:00: daily. of (HYZAAR) 00 Medicin 100-25 MG e per tablet Tamsulosin 2019-0 Yes .4mg Take 0.4 [facility] HCl 0.4 MG 8-12 mg by [facility] CAPS 00:00: mouth of 00 daily. Medicin e losartan-hy 2019-0 Yes Take by [facility] drochloroth 8-12 mouth [facility] iazide 00:00: daily. of (HYZAAR) 00 Medicin 100-25 MG e per tablet Tamsulosin 2019-0 Yes .4mg Take 0.4 [facility] HCl 0.4 MG 8-12 mg by [facility] CAPS 00:00: mouth of 00 daily. Medicin e losartan-hy 2019-0 Yes Take by [facility] drochloroth 8-12 mouth [facility] iazide 00:00: daily. of (HYZAAR) 00 Medicin 100-25 MG e per tablet Tamsulosin 2019-0 Yes .4mg Take 0.4 [facility] HCl 0.4 MG 8-12 mg by [facility] CAPS 00:00: mouth of 00 daily. Medicin e losartan-hy 2019-0 Yes Take by [facility] drochloroth 8-12 mouth [facility] iazide 00:00: daily. of (HYZAAR) 00 Medicin 100-25 MG e per tablet Tamsulosin 2019-0 Yes .4mg Take 0.4 [facility] HCl 0.4 MG 8-12 mg by [facility] CAPS 00:00: mouth of 00 daily. Medicin e losartan-hy 2019-0 Yes Take by [facility] drochloroth 8-12 mouth [facility] iazide 00:00: daily. of (HYZAAR) 00 Medicin 100-25 MG e per tablet Tamsulosin 2019-0 Yes .4mg Take 0.4 [facility] HCl 0.4 MG 8-12 mg by [facility] CAPS 00:00: mouth of 00 daily. Medicin e Tamsulosin 2019-0 Yes .4mg Take 0.4 [facility] HCl 0.4 MG 8-12 mg by [facility] CAPS 00:00: mouth of 00 daily. Medicin e Tamsulosin 2019-0 Yes .4mg Take 0.4 [facility] HCl 0.4 MG 8-12 mg by [facility] CAPS 00:00: mouth of 00 daily. Medicin e Tamsulosin 2019-0 Yes .4mg Take 0.4 [facility] HCl 0.4 MG 8-12 mg by [facility] CAPS 00:00: mouth of 00 daily. Medicin e Tamsulosin 2019-0 Yes .4mg Take 0.4 [facility] HCl 0.4 MG 8-12 mg by [facility] CAPS 00:00: mouth of 00 daily. Medicin e Tamsulosin 2019-0 Yes .4mg Take 0.4 [facility] HCl 0.4 MG 8-12 mg by [facility] CAPS 00:00: mouth of 00 daily. Medicin e Tamsulosin 2019-0 Yes .4mg Take 0.4 [facility] HCl 0.4 MG 8-12 mg by [facility] CAPS 00:00: mouth of 00 daily. Medicin e Tamsulosin 2019-0 Yes .4mg Take 0.4 [facility] HCl 0.4 MG 8-12 mg by [facility] CAPS 00:00: mouth of 00 daily. Medicin e Tamsulosin 2019-0 Yes .4mg Take 0.4 [facility] HCl 0.4 MG 8-12 mg by [facility] CAPS 00:00: mouth of 00 daily. Medicin e Tamsulosin 2019-0 Yes .4mg Take 0.4 [facility] HCl 0.4 MG 8-12 mg by [facility] CAPS 00:00: mouth of 00 daily. Medicin e sulfamethox 2019- No [facility] azole-trime 01-18 [facility] thoprim 00:00: 00:00 of (BACTRIM 00 :00 Medicin DS, SEPTRA e DS) 800-160 MG per tablet ciprofloxac 2019- No 1{tbl} Take 1 Tab [facility] in (CIPRO) 01-18 by mouth [facility] 500 MG 00:00: 00:00 every 12 of tablet 00 :00 hours. Medicin e amlodipine 2018- Yes [id number] Take by [facility] (NORVASC) 01-17 [facility] 2.5 MG 00:00: daily. 5 of tablet 00 mg in AM Medicin 2.5 mg in e PM Indication s: CORONARY ARTERY DISEASE Diltiazem 2019-0 Yes Take by [facility] HCl Coated 01-17 mouth [facility] Beads 360 00:00: daily. of MG TB24 00 Medicin e amlodipine 2018-0 Yes [id number] Take by [facility] ([facility]) 8 mouth College 2.5 MG 00:00: daily. 5 of tablet 00 mg in AM Medicin 2.5 mg in e PM Indication s: CORONARY ARTERY DISEASE Diltiazem 2019-0 Yes Take by [facility] HCl Coated 01-17 mouth [facility] Beads 360 00:00: daily. of MG TB24 00 Medicin e amlodipine 2019-0 Yes [id number] Take by [facility] ([facility]) 8 mouth [facility] 2.5 MG 00:00: daily. 5 of tablet 00 mg in AM Medicin 2.5 mg in e PM Indication s: CORONARY ARTERY DISEASE Diltiazem 2019-0 Yes Take by [facility] HCl Coated [address] [place] [address] Beads 360 00:00: daily. of MG TB24 Medicin e amlodipine 2018- Yes [facility] ([facility]) 01-17 [facility] 2.5 MG 00:00: of tablet Medicin e Diltiazem Yes [facility] HCl Coated [address] [place] [address] Beads 360 00:00: of MG TB24 Medicin e oxybutynin 2018- Yes [facility] (DITROPAN) 01-17 [facility] 5 MG tablet 00:00: of Medicin e amlodipine Yes Take by [facility] ([facility]) 01-17 mouth [facility] 2.5 MG 00:00: daily. of tablet Medicin e Diltiazem Yes Take by [facility] HCl Coated 01-17 mouth [facility] Beads 360 00:00: daily. of MG TB24 Medicin e oxybutynin 2018- Yes 5mg Take 5 mg [facility] (DITROPAN) 01-17 by mouth Colle ge 5 MG tablet 00:00: daily. of 00 Medicin e amlodipine 2018- Yes Take by [facility] ([facility]) 01-17 mouth [facility] 2.5 MG 00:00: daily. of tablet 00 Medicin e Diltiazem Yes Take by [facility] HCl Coated [address] [place] [address] Beads 360 00:00: daily. of MG TB24 Medicin e oxybutynin 2018- Yes 5mg Take 5 mg [facility] (DITROPAN) 01-17 by mouth [facility]le [facility] 5 MG tablet 00:00: daily. of 00 Medicin e amlodipine Yes Take by [facility] 01-17 mouth [facility] 2.5 MG 00:00: daily. of tablet 00 Medicin e Diltiazem Yes Take by [facility] HCl Coated 01-17 [facility] Beads 360 00:00: daily. of MG TB24 Medicin e oxybutynin Yes 5mg Take 5 mg [facility] (DITROPAN) 01-17 by mouth [facility]le [facility] 5 MG tablet 00:00: daily. of 00 Medicin e amlodipine Yes Take by [facility] ([facility] 01-17 mouth [facility] 2.5 MG 00:00: daily. of tablet 00 Medicin e Diltiazem Yes Take by [facility] HCl Coated 01-17 [facility] Beads 360 00:00: daily. of MG TB24 Medicin e oxybutynin Yes 5mg Take 5 mg [facility] (DITROPAN) 01-17 by mouth [facility]le [facility] 5 MG tablet 00:00: daily. of 00 Medicin e amlodipine Yes Take by [facility] ([facility] 01-17 mouth [facility] 2.5 MG 00:00: daily. of tablet 00 Medicin e Diltiazem Yes Take by [facility] HCl Coated 01-17 [facility] Beads 360 00:00: daily. of MG TB24 Medicin e oxybutynin Yes 5mg Take 5 mg [facility] (DITROPAN) 01-17 by mouth [facility]le [facility] 5 MG tablet 00:00: daily. of 00 Medicin e amlodipine Yes [id number] Take by [facility] ([facility]) 01-17 mouth [facility] 2.5 MG 00:00: daily. 5 of tablet 00 mg in AM Medicin 2.5 mg in e PM Indication s: CORONARY ARTERY DISEASE Diltiazem 2019- Yes Take by [facility] HCl Coated 01-17 mouth [email or web address] Beads 360 00:00: daily. of MG TB24 Medicin e amlodipine Yes Take by [facility] (NORVAS) 01-17 mouth [facility] 2.5 MG 00:00: daily. of tablet 00 Medicin e Diltiazem Yes Take by [facility] HCl Coated 01-17 [facility] Beads 360 00:00: daily. of MG TB24 00 Medicin e oxybutynin 2019-0 Yes 5mg Take 5 mg [facility] (DITROPAN) 01-17 by mouth [facility]le [facility] 5 MG tablet 00:00: daily. of 00 Medicin e amlodipine 2019-0 Yes Take by [facility] (NORVASC) 01-17 mouth [facility] 2.5 MG 00:00: daily. of tablet 00 Medicin e Diltiazem 2018- Yes Take by [facility] HCl Coated 01-17 mouth [email or web address] Beads 360 00:00: daily. of MG TB24 Medicin e oxybutynin 2018- Yes 5mg Take 5 mg [facility] (DITROPAN) 01-17 by mouth [facility]le [facility] 5 MG tablet 00:00: daily. of 00 Medicin e amlodipine 2018- Yes Take by [facility] (NORVAS) 01-17 mouth [facility] 2.5 MG 00:00: daily. of tablet 00 Medicin e Diltiazem 2018- Yes Take by [facility] HCl Coated 01-17 [facility] [email or web address] Beads 360 00:00: daily. of MG TB24 Medicin e oxybutynin 2018- Yes 5mg Take 5 mg [facility] (DITROPAN) 01-17 by mouth [facility]le [facility] 5 MG tablet 00:00: daily. of 00 Medicin e amlodipine 2018-0 Yes Take by [facility] (NORVASC) 01-17 mouth [facility] 2.5 MG 00:00: daily. of tablet Medicin e Diltiazem 2018-0 Yes Take by [facility] HCl Coated 01-17 mouth [email or web address] Beads 360 00:00: daily. of MG TB24 00 Medicin e oxybutynin 2018- Yes 5mg Take 5 mg [facility] (DITROPAN) 01-17 by mouth [facility] 5 MG tablet 00:00: daily. of 00 Medicin e amlodipine 2018-0 Yes Take by [facility] (NORVASC) 01-17 mouth [facility] 2.5 MG 00:00: daily. of tablet 00 Medicin e Diltiazem 2019-0 Yes Take by [facility] or HCl Coated 01-17 mouth [email or web address] Beads 360 00:00: daily. of MG TB24 Medicin e oxybutynin 2018-0 Yes 5mg Take 5 mg [facility] (DITROPAN) 01-17 by mouth Colle [facility] 5 MG tablet 00:00: daily. of 00 Medicin e amlodipine Yes Take by [place] [facility] (NORVASC) 01-17 mouth [facility] 2.5 MG 00:00: daily. of tablet 00 Medicin e Diltiazem Yes Take by Bayl or HCl Coated 01-17 [facility] Beads 360 00:00: daily. of MG TB24 Medicin e oxybutynin Yes 5mg Take 5 mg [facility] (DITROPAN) 01-17 by mouth Colle ge 5 MG tablet 00:00: daily. of 00 Medicin e amlodipine Yes Take by [place] [facility] ([facility] [facility]) 01-17 mouth [facility] 2.5 MG 00:00: daily. of tablet Medicin e Diltiazem Yes Take by Bayl or HCl Coated 01-17 [facility] Beads 360 00:00: daily. of MG TB24 Medicin e oxybutynin Yes 5mg Take 5 mg [facility] (DITROPAN) 01-17 by mouth Colle ge 5 MG tablet 00:00: daily. of 00 Medicin e amlodipine Yes Take by [place] [facility] ([facility] [facility]) 01-17 mouth [facility] 2.5 MG 00:00: daily. of tablet Medicin e Diltiazem Yes Take by Bayl or HCl Coated 01-17 [facility] Beads 360 00:00: daily. of MG TB24 Medicin e amlodipine Yes Take by [place] [facility] ([facility]) 01-17 mouth [facility] 2.5 MG 00:00: daily. of tablet 00 Medicin e Diltiazem Yes Take by Bayl or HCl Coated 01-17 [facility] Beads 360 00:00: daily. of MG TB24 Medicin e amlodipine Yes [id number] Take by [place] [facility] ([facility] [facility]) 01-17 mouth [facility] 2.5 MG 00:00: daily. 5 of tablet 00 mg in AM Medicin 2.5 mg in e PM Indication s: CORONARY ARTERY DISEASE Diltiazem 2018-0 Yes Take by [facility]l or HCl Coated 01-17 mouth [email or web address] Beads 360 00:00: daily. of MG TB24 00 Medicin e amlodipine 2018-0 Yes [id number] Take by [place] [facility] (NORVAS) 01-17 mouth [facility] 2.5 MG 00:00: daily. 5 of tablet 00 mg in AM Medicin 2.5 mg in e PM Indication s: CORONARY ARTERY DISEASE Diltiazem 2019-0 Yes Take by [facility]l or HCl Coated 8-07 mouth [place] 360 00:00: daily. of MG TB24 00 Medicin e amlodipine 2019-0 Yes [id number] Take by [place] [facility] (NORVASC) 807 mouth [facility] 2.5 MG 00:00: daily. 5 of tablet 00 mg in AM Medicin 2.5 mg in e PM Indication s: CORONARY ARTERY DISEASE Diltiazem 2019-0 Yes Take by Bayl or HCl Coated - mouth [facility] Beads 360 00:00: daily. of MG TB24 00 Medicin e amlodipine 2019-0 Yes 6878 Take by [place] [facility] (NORVAS) 807 mouth [facility] 2.5 MG 00:00: daily. 5 of tablet 00 mg in AM Medicin 2.5 mg in e PM Indication s: CORONARY ARTERY DISEASE Diltiazem 2019-0 Yes Take by Bayl or HCl Coated [facility] mouth [facility] Beads 360 00:00: daily. of MG TB24 00 Medicin e amlodipine 2019-0 Yes 6878 Take by [place] [facility] (NORVAS) 01-17 mouth [facility] 2.5 MG 00:00: daily. 5 of tablet 00 mg in AM Medicin 2.5 mg in e PM Indication s: CORONARY ARTERY DISEASE Diltiazem 2019-0 Yes Take by Bayl or HCl Coated [facility] mouth [place]eads 360 00:00: daily. of MG TB24 00 Medicin e amlodipine 2019-0 Yes [id number] Take by [place] [facility] (NORVASC) 8 mouth [employer] 2.5 MG 00:00: daily. 5 of tablet 00 mg in AM Medicin 2.5 mg in e PM Indication s: CORONARY ARTERY DISEASE Diltiazem 2019-0 Yes Take by Bayl or HCl Coated mouth [email or web address] Beads 360 00:00: daily. of MG TB24 00 Medicin e amlodipine 2019-0 Yes 6878 Take by [place] [facility] (NORVAS) 807 mouth [facility] 2.5 MG 00:00: daily. 5 of tablet 00 mg in AM Medicin 2.5 mg in e PM Indication s: CORONARY ARTERY DISEASE Diltiazem 2019-0 Yes Take by Bayl or HCl Coated [facility] mouth [facility] Beads 360 00:00: daily. of MG TB24 00 Medicin e amlodipine 0 Yes 6878 Take by [place] [facility] (NORVASC) 8 mouth [employer] 2.5 MG 00:00: daily. 5 of tablet 00 mg in AM Medicin 2.5 mg in e PM Indication s: CORONARY ARTERY DISEASE Diltiazem 2019-0 Yes Take by [facility]l or HCl Coated 01-17 mouth [facility] Beads 360 00:00: daily. of MG TB24 Medicin e amlodipine 0 Yes 6878 Take by [place] [facility] (NORVASC) 8 mouth [employer] 2.5 MG 00:00: daily. 5 of tablet 00 mg in AM Medicin 2.5 mg in e PM Indication s: CORONARY ARTERY DISEASE Diltiazem 20190 Yes Take by Bayl or HCl Coated 01-17 mouth [place] 360 00:00: daily. of MG TB24 Medicin e oxybutynin 2020- No 5mg Take 5 mg B aylor (DITROPAN) 01-17-17 by mouth Alfredo ege 5 MG tablet 00:00: 00:00 daily. of 00 : Medicin e simvastatin Yes 20mg Take 20 mg [facility] (ZOCOR) 20 6-16 by mouth Colle ge MG tablet 00:00: daily. of Medicin e simvastatin Yes 20mg Take 20 mg [facility] (ZOCOR) 20 6-16 by mouth Colle ge MG tablet 00:00: daily. of Medicin e simvastatin Yes 20mg Take 20 mg [place] (ZOCOR) 20 6-16 by mouth Colle ge MG tablet 00:00: daily. of Medicin e simvastatin Yes [place] (ZOCOR) 20 6-16 College MG tablet 00:00: of Medicin e simvastatin Yes 20mg Take 20 mg [place] (ZOCOR) 20 6-16 by mouth Colle ge MG tablet 00:00: daily. of Medicin e simvastatin Yes 20mg Take 20 mg [facility] (ZOCOR) 20 6-16 by mouth Colle ge MG tablet 00:00: daily. of Medicin e simvastatin Yes 20mg Take 20 mg [facility] (ZOCOR) 20 6-16 by mouth Colle ge MG tablet 00:00: daily. of 00 Medicin e simvastatin 2019-0 Yes 20mg Take 20 mg [place] (ZOCOR) 20 6-16 by mouth Colle ge MG tablet 00:00: daily. of Medicin e simvastatin 2019-0 Yes 20mg Take 20 mg [place] (ZOCOR) 20 6-16 by mouth Colle ge MG tablet 00:00: daily. of Medicin e simvastatin 2018-0 Yes 20mg Take 20 mg [place] (ZOCOR) 20 6-16 by mouth Colle ge MG tablet 00:00: daily. of Medicin e simvastatin 2018-0 Yes 20mg Take 20 mg [place] (ZOCOR) 20 6-16 by mouth Colle ge MG tablet 00:00: daily. of Medicin e simvastatin 2018-0 Yes 20mg Take 20 mg [place] (ZOCOR) 20 6-16 by mouth Colle ge MG tablet 00:00: daily. of Medicin e simvastatin 2018-0 Yes 20mg Take 20 mg [place] (ZOCOR) 20 6-16 by mouth Colle ge MG tablet 00:00: daily. of Medicin e simvastatin 0 Yes 20mg Take 20 mg [facility] (ZOCOR) 20 6-16 by mouth Colle ge MG tablet 00:00: daily. of Medicin e simvastatin 2018-0 Yes 20mg Take 20 mg [facility] (ZOCOR) 20 6-16 by mouth Colle ge MG tablet 00:00: daily. of Medicin e simvastatin 2018-0 Yes 20mg Take 20 mg [facility] (ZOCOR) 20 6-16 by mouth Colle ge MG tablet 00:00: daily. of Medicin e simvastatin 2018-0 Yes 20mg Take 20 mg [facility] (ZOCOR) 20 6-16 by mouth Colle ge MG tablet 00:00: daily. of Medicin e simvastatin 2018-0 Yes 20mg Take 20 mg [facility] (ZOCOR) 20 6-16 by mouth Colle ge MG tablet 00:00: daily. of Medicin e simvastatin 2018-0 Yes 20mg Take 20 mg [place] (ZOCOR) 20 6-16 by mouth Colle ge MG tablet 00:00: daily. of Medicin e simvastatin 2018-0 Yes 20mg Take 20 mg [place] (ZOCOR) 20 6-16 by mouth Colle ge MG tablet 00:00: daily. of Medicin e simvastatin 2019-0 Yes 20mg Take 20 mg [facility] (ZOCOR) 20 6-16 by mouth Colle ge MG tablet 00:00: daily. of Medicin e simvastatin 2019-0 Yes 20mg Take 20 mg [facility] (ZOCOR) 20 6-16 by mouth Colle ge MG tablet 00:00: daily. of Medicin e simvastatin 2019-0 Yes 20mg Take 20 mg [facility] (ZOCOR) 20 6-16 by mouth Colle ge MG tablet 00:00: daily. of Medicin e simvastatin 2019-0 Yes 20mg Take 20 mg [place] (ZOCOR) 20 6-16 by mouth Colle ge MG tablet 00:00: daily. of Medicin e simvastatin 2019-0 Yes 20mg Take 20 mg [place] (ZOCOR) 20 6-16 by mouth Colle ge MG tablet 00:00: daily. of Medicin e simvastatin 2019-0 Yes 20mg Take 20 mg [place] (ZOCOR) 20 6-16 by mouth Colle ge MG tablet 00:00: daily. of Medicin e simvastatin 2019-0 Yes 20mg Take 20 mg [facility] (ZOCOR) 20 6-16 by mouth Colle ge MG tablet 00:00: daily. of Medicin e simvastatin 2019-0 Yes 20mg Take 20 mg [facility] (ZOCOR) 20 6-16 by mouth Colle ge MG tablet 00:00: daily. of 00 Medicin e glimepiride 2019-0 Yes 4mg Take 4 mg [facility] (AMARYL) 4 6-08 by mouth Colle ge MG tablet 00:00: two times of 00 daily. Medicin e levothyroxi 2019-0 Yes 100ug Take 100 B [facility] ne 6-08 mcg by [place] (SYNTHROID) 00:00: mouth of 100 MCG 00 daily. Medicin tablet e glimepiride 2019-0 Yes 4mg Take 4 mg [facility] (AMARYL) 4 6-08 by mouth Colle ge MG tablet 00:00: two times of 00 daily. Medicin e levothyroxi 2019-0 Yes 100ug Take 100 B [facility] ne 6-08 mcg by [place] (SYNTHROID) 00:00: mouth of 100 MCG 00 daily. Medicin tablet e glimepiride 2019-0 Yes 4mg Take 4 mg [facility] (AMARYL) 4 6-08 by mouth Colle ge MG tablet 00:00: two times of 00 daily. Medicin e levothyroxi 2019-0 Yes 100ug Take 100 [facility] ne 6-08 mcg by [facility] (SYNTHROID) 00:00: mouth of 100 MCG 00 daily. Medicin tablet e glimepiride 2019-0 Yes [facility] (AMARYL) 4 6-08 College MG tablet 00:00: of 00 Medicin e levothyroxi 2019-0 Yes [place] ne 6-08 College (SYNTHROID) 00:00: of 100 MCG 00 Medicin tablet e glimepiride 2019-0 Yes 4mg Take 4 mg [facility] (AMARYL) 4 6-08 by mouth Colle ge MG tablet 00:00: every of 00 morning. Medicin e levothyroxi 2019-0 Yes 100ug Take 100 B [facility] ne 6-08 mcg by [place] (SYNTHROID) 00:00: mouth of 100 MCG 00 daily. Medicin tablet e glimepiride 2019-0 Yes 4mg Take 4 mg [facility] (AMARYL) 4 6-08 by mouth Colle ge MG tablet 00:00: two times of 00 daily. Medicin e levothyroxi 2019-0 Yes 100ug Take 100 B [facility] ne 6-08 mcg by [place] (SYNTHROID) 00:00: mouth of 100 MCG 00 daily. Medicin tablet e glimepiride 2019-0 Yes 4mg Take 4 mg [facility] (AMARYL) 4 6-08 by mouth Colle ge MG tablet 00:00: two times of 00 daily. Medicin e levothyroxi 2019-0 Yes 100ug Take 100 B [place] ne 6-08 mcg by [place] (SYNTHROID) 00:00: mouth of 100 MCG 00 daily. Medicin tablet e glimepiride 2019-0 Yes 4mg Take 4 mg [facility] (AMARYL) 4 6-08 by mouth Colle ge MG tablet 00:00: two times of 00 daily. Medicin e levothyroxi 2019-0 Yes 100ug Take 100 B [facility] ne 6-08 mcg by [place] (SYNTHROID) 00:00: mouth of 100 MCG 00 daily. Medicin tablet e glimepiride 2019-0 Yes 4mg Take 4 mg [facility] (AMARYL) 4 6-08 by mouth Colle ge MG tablet 00:00: two times of 00 daily. Medicin e levothyroxi 2019-0 Yes 100ug Take 100 B [facility] ne 6-08 mcg by [place] (SYNTHROID) 00:00: mouth of 100 MCG 00 daily. Medicin tablet e glimepiride 2019-0 Yes 4mg Take 4 mg [facility] (AMARYL) 4 6-08 by mouth Colle ge MG tablet 00:00: two times of 00 daily. Medicin e glimepiride 2019-0 Yes 4mg Take 4 mg [facility] (AMARYL) 4 6-08 by mouth Colle ge MG tablet 00:00: two times of 00 daily. Medicin e levothyroxi 2019-0 Yes 100ug Take 100 B [place] ne 6-08 mcg by [place] (SYNTHROID) 00:00: mouth of 100 MCG 00 daily. Medicin tablet e levothyroxi 2019-0 Yes 100ug Take 100 [facility] ne 6-08 mcg by [place] (SYNTHROID) 00:00: mouth of 100 MCG 00 daily. Medicin tablet e glimepiride 2019-0 Yes 4mg Take 4 mg [facility] (AMARYL) 4 6-08 by mouth Colle ge MG tablet 00:00: two times of 00 daily. Medicin e levothyroxi 2019-0 Yes 100ug Take 100 [facility] ne 6-08 mcg by [place] (SYNTHROID) 00:00: mouth of 100 MCG 00 daily. Medicin tablet e glimepiride 2019-0 Yes 4mg Take 4 mg [facility] (AMARYL) 4 6-08 by mouth Colle ge MG tablet 00:00: two times of 00 daily. Medicin e levothyroxi 2019-0 Yes 100ug Take 100 B [place] ne 6-08 mcg by [place] (SYNTHROID) 00:00: mouth of 100 MCG 00 daily. Medicin tablet e glimepiride 2019-0 Yes 4mg Take 4 mg [facility] (AMARYL) 4 6-08 by mouth Colle ge MG tablet 00:00: two times of 00 daily. Medicin e levothyroxi 2019-0 Yes 100ug Take 100 B [place] ne 6-08 mcg by [place] (SYNTHROID) 00:00: mouth of 100 MCG 00 daily. Medicin tablet e glimepiride 2019-0 Yes 4mg Take 4 mg [facility] (AMARYL) 4 6-08 by mouth Colle ge MG tablet 00:00: two times of 00 daily. Medicin e levothyroxi 2019-0 Yes 100ug Take 100 B [facility] ne 6-08 mcg by [place] (SYNTHROID) 00:00: mouth of 100 MCG 00 daily. Medicin tablet e glimepiride 2019-0 Yes 4mg Take 4 mg [facility] (AMARYL) 4 6-08 by mouth Colle ge MG tablet 00:00: two times of 00 daily. Medicin e levothyroxi 2019-0 Yes 100ug Take 100 B [place] ne 6-08 mcg by [place] (SYNTHROID) 00:00: mouth of 100 MCG 00 daily. Medicin tablet e glimepiride 2019-0 Yes 4mg Take 4 mg [facility] (AMARYL) 4 6-08 by mouth Colle ge MG tablet 00:00: two times of 00 daily. Medicin e levothyroxi 2019-0 Yes 100ug Take 100 B [place] ne 6-08 mcg by [place] (SYNTHROID) 00:00: mouth of 100 MCG 00 daily. Medicin tablet e glimepiride 2019-0 Yes 4mg Take 4 mg [facility] (AMARYL) 4 6-08 by mouth Colle ge MG tablet 00:00: two times of 00 daily. Medicin e levothyroxi 2019-0 Yes 100ug Take 100 B [facility] ne 6-08 mcg by [place] (SYNTHROID) 00:00: mouth of 100 MCG 00 daily. Medicin tablet e glimepiride 2019-0 Yes 4mg Take 4 mg [facility] (AMARYL) 4 6-08 by mouth Colle ge MG tablet 00:00: two times of 00 daily. Medicin e levothyroxi 2019-0 Yes 100ug Take 100 B [place] ne 6-08 mcg by [place] (SYNTHROID) 00:00: mouth of 100 MCG 00 daily. Medicin tablet e glimepiride 2019-0 Yes 4mg Take 4 mg [facility] (AMARYL) 4 6-08 by mouth Colle ge MG tablet 00:00: two times of 00 daily. Medicin e glimepiride 2019-0 Yes 4mg Take 4 mg [facility] (AMARYL) 4 6-08 by mouth Colle ge MG tablet 00:00: two times of 00 daily. Medicin e levothyroxi 2019-0 Yes 100ug Take 100 B [place] ne 6-08 mcg by [place] (SYNTHROID) 00:00: mouth of 100 MCG 00 daily. Medicin tablet e levothyroxi 2019-0 Yes 100ug Take 100 [facility] ne 6-08 mcg by [place] (SYNTHROID) 00:00: mouth of 100 MCG 00 daily. Medicin tablet e glimepiride 2019-0 Yes 4mg Take 4 mg [facility] (AMARYL) 4 6-08 by mouth Colle ge MG tablet 00:00: two times of 00 daily. Medicin e levothyroxi 2019-0 Yes 100ug Take 100 B [place] ne 6-08 mcg by [place] (SYNTHROID) 00:00: mouth of 100 MCG 00 daily. Medicin tablet e glimepiride 2019-0 Yes 4mg Take 4 mg [facility] (AMARYL) 4 6-08 by mouth Colle ge MG tablet 00:00: two times of 00 daily. Medicin e levothyroxi 2019-0 Yes 100ug Take 100 B [place] ne 6-08 mcg by [place] (SYNTHROID) 00:00: mouth of 100 MCG 00 daily. Medicin tablet e glimepiride 2019-0 Yes 4mg Take 4 mg [facility] (AMARYL) 4 6-08 by mouth Colle ge MG tablet 00:00: two times of 00 daily. Medicin e levothyroxi 2019-0 Yes 100ug Take 100 B [place] ne 6-08 mcg by [place] (SYNTHROID) 00:00: mouth of 100 MCG 00 daily. Medicin tablet e glimepiride 2019-0 Yes 4mg Take 4 mg [facility] (AMARYL) 4 6-08 by mouth Colle ge MG tablet 00:00: two times of 00 daily. Medicin e levothyroxi 2019-0 Yes 100ug Take 100 B [place] ne 6-08 mcg by [place] (SYNTHROID) 00:00: mouth of 100 MCG 00 daily. Medicin tablet e glimepiride 2019-0 Yes 4mg Take 4 mg [facility] (AMARYL) 4 6-08 by mouth Colle ge MG tablet 00:00: two times of 00 daily. Medicin e levothyroxi 2019-0 Yes 100ug Take 100 B [place] ne 6-08 mcg by [place] (SYNTHROID) 00:00: mouth of 100 MCG 00 daily. Medicin tablet e glimepiride 2019-0 Yes 4mg Take 4 mg [facility] (AMARYL) 4 6-08 by mouth Colle ge MG tablet 00:00: two times of 00 daily. Medicin e levothyroxi 2019-0 Yes 100ug Take 100 [facility] [place] ne 6-08 mcg by [place] (SYNTHROID) 00:00: mouth of 100 MCG 00 daily. Medicin tablet e glimepiride 2019-0 Yes 4mg Take 4 mg [facility] (AMARYL) 4 6-08 by mouth Colle ge MG tablet 00:00: two times of 00 daily. Medicin e levothyroxi 2019-0 Yes 100ug Take 100 [facility] ne 6-08 mcg by [place] (SYNTHROID) 00:00: mouth of 100 MCG 00 daily. Medicin tablet e losartan-hy 2018-0 Yes 1{tbl} Take 1 MD drochloroth 4-10 tablet by And erso iazide 10:29: mouth n (HYZAAR) 45 daily. 100-25 mg per tablet multivitami 2019-0 Yes 1{tbl} Take 1 MD n 4-10 tablet by Anderso (multivitam 10:29: mouth n in) tab 45 daily. tablet loratadine 2019 Yes 10mg Take 10 mg M D (CLARITIN) 4-10 by mouth Johnnie so 10 mg 10:29: as needed n tablet 45 for allergies. magnesium 2019-0 Yes 500mg Take 500 MD oxide 500 4-10 mg by Anderso mg tablet 10:29: mouth n 45 twice daily. cyanocobala 2019-0 Yes 2500ug Take 2,500 MD min 4-10 mcg by Anderso (vitamin 10:29: mouth n B-12) 1000 45 daily. mcg tablet silodosin 2019-0 Yes 1{capsu Take 1 MD (RAPAFLO) 8 2-24 le} capsule by An derso mg capsule 00:00: mouth n 00 daily. amLODIPine 2019-0 Yes 1{tbl} Take 1 MD (NORVASC) 2-11 tablet by Johnnie so 2.5 mg 00:00: mouth n tablet 00 daily. dutasteride 2019-0 Yes 1{capsu Take 1 M D (AVODART) 2-11 le} capsule by Faheem rso 0.5 mg 00:00: mouth n capsule 00 daily. diltiazem 2018-0 Yes MD (CARDIZEM 3-06 [place]) 360 [...] a n tablet 00 day with meals. No known No [facility] of Medicin e Vital Signs Vital Name Observation Time Observation Value Comments Source HEIGHT 2021-01-20 08:47:00 182.9 cm WEIGHT 2021-01-20 08:47:00 118.026 kg HEIGHT 2021-01-19 09:03:00 182.9 cm WEIGHT 2021-01-19 09:03:00 119.296 kg Systolic blood 2021-03-22 19:00:18 156 mm[Hg] Univdennis sity of pressure [facility] Diastolic blood 2021-03-22 19:00:18 64 mm[Hg] Univrobina rsity of pressure [facility] Heart rate 2021-03-22 19:00:18 50 /min [facility] Body temperature 2021-03-22 19:00:18 36.61 [place] Univ ersity of [facility] Respiratory rate 2021-03-22 19:00:18 16 /min [facility] Oxygen saturation in 2021-03-22 19:00:18 98 /min University Arterial blood by [facility] Pulse oximetry Branch Body weight 2021-03-22 16:48:00 119.75 kg Universi ty of [facility] Systolic blood 2021-03-18 20:48:00 142 mm[Hg] [facility] Medicine Diastolic blood 2021-03-18 20:48:00 67 mm[Hg] [facility] Medicine Heart rate 2021-03-18 20:48:00 52 /min [facility] Medicine Body height 2021-03-18 20:48:00 182.9 cm [facility] Body weight 2021-03-18 20:48:00 119.75 kg [facility] Medicine BMI 2021-03-18 20:48:00 35.80 kg/m2 [facility] Medicine Systolic blood 2021-03-02 15:19:00 146 mm[Hg] [facility] Medicine Diastolic blood 2021-03-02 15:19:00 55 mm[Hg] [facility] Medicine Heart rate 2021-03-02 15:19:00 53 /min [facility] Medicine Body height 2021-03-02 15:19:00 182.9 cm [facility] Medicine Body weight 2021-03-02 15:19:00 117.935 kg [facility] BMI 2021-03-02 15:19:00 35.26 kg/m2 [facility] Medicine Systolic blood 2021-02-18 19:16:00 143 mm[Hg] [facility] Medicine Diastolic blood 2021-02-18 19:16:00 67 mm[Hg] [facility] Heart rate 2021-02-18 19:16:00 54 /min [facility] ol[facility] of Medicine Body height 2021-02-18 19:16:00 182.9 cm [facility] C [facility] of Medicine Body weight 2021-02-18 19:16:00 117.935 kg [facility] of Medicine BMI 2021-02-18 19:16:00 35.26 kg/m2 [place] [facility] Systolic blood 2021-02-10 20:02:00 126 mm[Hg] [facility] Diastolic blood 2021-02-10 20:02:00 70 mm[Hg] [facility] Heart rate 2021-02-10 20:02:00 53 /min [facility] of Medicine Body height 2021-02-10 20:02:00 182.9 cm [facility] C [facility] of Medicine Body weight 2021-02-10 20:02:00 117.935 kg [facility] of Medicine BMI 2021-02-10 20:02:00 35.26 kg/m2 [facility] of Medicine Systolic blood 2021-02-06 18:38:00 150 mm[Hg] [facility] Medicine Diastolic blood 2021-02-06 18:38:00 66 mm[Hg] [facility] Heart rate 2021-02-06 18:38:00 57 /min [facility] Medicine Body height 2021-02-06 18:38:00 182.9 cm [facility] Medicine Body weight 2021-02-06 18:38:00 117.935 kg [facility] Medicine BMI 2021-02-06 18:38:00 35.26 kg/m2 [facility] of Medicine Systolic blood 2021-02-03 21:42:00 144 mm[Hg] [facility] Medicine Diastolic blood 2021-02-03 21:42:00 75 mm[Hg] [facility] Medicine Heart rate 2021-02-03 21:42:00 55 /min [place] [facility] Body height 2021-02-03 21:42:00 182.9 cm [facility] Medicine Body weight 2021-02-03 21:42:00 117.935 kg [facility] Medicine BMI 2021-02-03 21:42:00 35.26 kg/m2 [facility] of Medicine Systolic blood 2021-01-30 19:33:00 138 mm[Hg] [facility] Medicine Diastolic blood 2021-01-30 19:33:00 76 mm[Hg] [facility] Medicine Heart rate 2021-01-30 19:33:00 52 /min [facility] Medicine Body height 2021-01-30 19:33:00 182.9 cm [facility] Medicine Body weight 2021-01-30 19:33:00 117.935 kg [facility] Medicine BMI 2021-01-30 19:33:00 35.26 kg/m2 [facility] Medicine HEIGHT 2021-01-20 08:47:00 182.9 cm WEIGHT 2021-01-20 08:47:00 118.026 kg HEIGHT 2021-01-19 09:03:00 182.9 cm WEIGHT 2021-01-19 09:03:00 119.296 kg Systolic blood 2020-12-31 19:10:00 151 mm[Hg] [facility] Medicine Diastolic blood 2020-12-31 19:10:00 58 mm[Hg] [facility] Medicine Heart rate 2020-12-31 19:10:00 60 /min [facility] Medicine Body height 2020-12-31 19:10:00 182.9 cm [facility] Medicine Body weight 2020-12-31 19:10:00 117.935 kg [facility] Medicine BMI 2020-12-31 19:10:00 35.26 kg/m2 [facility] Medicine Systolic blood 2020-12-17 18:13:00 149 mm[Hg] [facility] Medicine Diastolic blood 2020-12-17 18:13:00 65 mm[Hg] [facility] Medicine Heart rate 2020-12-17 18:13:00 97 /min [facility] Medicine Body height 2020-12-17 18:13:00 182.9 cm [facility] Medicine Body weight 2020-12-17 18:13:00 119.296 kg [facility] Medicine BMI 2020-12-17 18:13:00 35.67 kg/m2 [facility] of Medicine HEIGHT 2020-12-05 20:13:00 182.9 cm WEIGHT 2020-12-05 20:13:00 120.884 kg HEIGHT 2020-12-05 13:51:00 182.9 cm WEIGHT 2020-12-05 13:51:00 122.471 kg HEIGHT 2020-12-05 20:13:00 182.9 cm WEIGHT 2020-12-05 20:13:00 120.884 kg HEIGHT 2020-12-05 13:51:00 182.9 cm WEIGHT 2020-12-05 13:51:00 122.471 kg Systolic blood 2020-11-05 21:03:00 148 mm[Hg] [facility] pressure Medicine Diastolic blood 2020-11-05 21:03:00 67 mm[Hg] [facility] Medicine Heart rate 2020-11-05 21:03:00 59 /min [facility] of Medicine Body height 2020-11-05 21:03:00 182.9 cm [facility] Medicine Body weight 2020-11-05 21:03:00 119.296 kg [facility] Medicine BMI 2020-11-05 21:03:00 35.67 kg/m2 [facility] of Medicine Systolic blood 2020-10-08 18:59:00 157 mm[Hg] [facility] Medicine Diastolic blood 2020-10-08 18:59:00 73 mm[Hg] [facility] Medicine Heart rate 2020-10-08 18:59:00 53 /min [facility] of Medicine Body temperature 2020-10-08 18:59:00 36.72 [place] [facility] Respiratory rate 2020-10-08 18:59:00 16 /min [facility] Body height 2020-10-08 18:59:00 182.9 cm [facility] of Medicine Body weight 2020-10-08 18:59:00 122.471 kg [facility] Medicine BMI 2020-10-08 18:59:00 36.62 kg/m2 [place] Systolic blood 2020-04-29 21:53:00 148 mm[Hg] [facility] Medicine Diastolic blood 2020-04-29 21:53:00 70 mm[Hg] [facility] Medicine Heart rate 2020-04-29 21:53:00 64 /min [facility] ol[facility] of Medicine Body height 2020-04-29 21:53:00 185.4 cm [facility] Body weight 2020-04-29 21:53:00 122.018 kg [facility] BMI 2020-04-29 21:53:00 35.49 kg/m2 [facility] Systolic blood 2019-12-17 15:27:00 148 mm[Hg] [facility] Medicine Diastolic blood 2019-12-17 15:27:00 67 mm[Hg] [facility] Heart rate 2019-12-17 15:27:00 50 /min [facility] Body height 2019-12-17 15:27:00 185.4 cm [facility] Body weight 2019-12-17 15:27:00 122.018 kg [facility] BMI 2019-12-17 15:27:00 35.49 kg/m2 [facility] Systolic blood 2019-12-07 15:49:00 140 mm[Hg] [facility] Diastolic blood 2019-12-07 15:49:00 58 mm[Hg] [facility] Heart rate 2019-12-07 15:49:00 47 /min [facility] Body height 2019-12-07 15:49:00 185.4 cm [facility] Body weight 2019-12-07 15:49:00 122.018 kg [facility] BMI 2019-12-07 15:49:00 35.49 kg/m2 [facility] Systolic blood 2019-12-07 15:49:00 140 mm[Hg] [facility] Diastolic blood 2019-12-07 15:49:00 58 mm[Hg] [facility] Heart rate 2019-12-07 15:49:00 47 /min [facility] Body height 2019-12-07 15:49:00 185.4 cm [place] [facility] Body weight 2019-12-07 15:49:00 122.018 kg [facility] BMI 2019-12-07 15:49:00 35.49 kg/m2 [facility] Systolic blood 2019-11-30 19:34:00 129 mm[Hg] [facility] Diastolic blood 2019-11-30 19:34:00 73 mm[Hg] [facility] Heart rate 2019-11-30 19:34:00 60 /min [facility] Body height 2019-11-30 19:34:00 185.4 cm [facility] Body weight 2019-11-30 19:34:00 122.018 kg [facility] BMI 2019-11-30 19:34:00 35.49 kg/m2 [facility] Systolic blood 2019-11-30 19:34:00 129 mm[Hg] [facility] Diastolic blood 2019-11-30 19:34:00 73 mm[Hg] [facility] Heart rate 2019-11-30 19:34:00 60 /min [facility] Body height 2019-11-30 19:34:00 185.4 cm [facility] Body weight 2019-11-30 19:34:00 122.018 kg [facility] BMI 2019-11-30 19:34:00 35.49 kg/m2 [facility] Systolic blood 2019-11-16 16:00:00 140 mm[Hg] [facility] Medicine Diastolic blood 2019-11-16 16:00:00 64 mm[Hg] [facility] Heart rate 2019-11-16 16:00:00 42 /min [facility] Body height 2019-11-16 16:00:00 185.4 cm [facility] Body weight 2019-11-16 16:00:00 122.471 kg [facility] BMI 2019-11-16 16:00:00 35.62 kg/m2 [facility] Systolic blood 2019-11-16 16:00:00 140 mm[Hg] [facility] Diastolic blood 2019-11-16 16:00:00 64 mm[Hg] [facility] Heart rate 2019-11-16 16:00:00 42 /min [facility] Body height 2019-11-16 16:00:00 185.4 cm [facility] Body weight 2019-11-16 16:00:00 122.471 kg [facility] BMI 2019-11-16 16:00:00 35.62 kg/m2 [facility] Systolic blood 2019-08-17 17:19:00 137 mm[Hg] [facility] Diastolic blood 2019-08-17 17:19:00 71 mm[Hg] [facility] Heart rate 2019-08-17 17:19:00 45 /min [facility] Body height 2019-08-17 17:19:00 185.4 cm [facility] Body weight 2019-08-17 17:19:00 119.296 kg [facility] BMI 2019-08-17 17:19:00 34.70 kg/m2 [facility] Systolic blood 2019-08-17 17:19:00 137 mm[Hg] [facility] Diastolic blood 2019-08-17 17:19:00 71 mm[Hg] [facility] Heart rate 2019-08-17 17:19:00 45 /min [facility] Body height 2019-08-17 17:19:00 185.4 cm [facility] Body weight 2019-08-17 17:19:00 119.296 kg [facility] BMI 2019-08-17 17:19:00 34.70 kg/m2 [facility] Systolic blood 2019-07-16 14:48:00 148 mm[Hg] [facility] Diastolic blood 2019-07-16 14:48:00 62 mm[Hg] [facility] Heart rate 2019-07-16 14:48:00 63 /min [facility] Body height 2019-07-16 14:48:00 185.4 cm [facility] Body weight 2019-07-16 14:48:00 120.203 kg [facility] BMI 2019-07-16 14:48:00 34.96 kg/m2 [facility] Systolic blood 2019-07-16 14:48:00 148 mm[Hg] [facility] Diastolic blood 2019-07-16 14:48:00 62 mm[Hg] [facility] Heart rate 2019-07-16 14:48:00 63 /min [facility] Body height 2019-07-16 14:48:00 185.4 cm [facility] Body weight 2019-07-16 14:48:00 120.203 kg [facility] BMI 2019-07-16 14:48:00 34.96 kg/m2 [facility] Systolic blood 2019-03-20 20:59:00 149 mm[Hg] [facility] Diastolic blood 2019-03-20 20:59:00 66 mm[Hg] [facility] Heart rate 2019-03-20 20:59:00 66 /min [facility] Systolic blood 2019-03-20 20:59:00 149 mm[Hg] [facility] Diastolic blood 2019-03-20 20:59:00 66 mm[Hg] [facility] Heart rate 2019-03-20 20:59:00 66 /min [facility] Systolic blood 2019-03-20 13:22:00 123 mm[Hg] [facility] Diastolic blood 2019-03-20 13:22:00 56 mm[Hg] [facility] Heart rate 2019-03-20 13:22:00 51 /min [facility] Body temperature 2019-03-20 13:22:00 36.56 [facility] Respiratory rate 2019-03-20 13:22:00 18 /min [facility] Body weight 2019-03-20 13:22:00 115.214 kg [facility] BMI 2019-03-20 13:22:00 32.61 kg/m2 [facility] Oxygen saturation in 2019-03-20 13:22:00 97 /min [facility] Arterial blood by Medicine Pulse oximetry Systolic blood 2019-03-20 13:22:00 123 mm[Hg] [facility] pressure Medicine Diastolic blood 2019-03-20 13:22:00 56 mm[Hg] [facility] Medicine Heart rate 2019-03-20 13:22:00 51 /min [facility] Body temperature 2019-03-20 13:22:00 36.56 [facility] Respiratory rate 2019-03-20 13:22:00 18 /min [facility] Body weight 2019-03-20 13:22:00 115.214 kg [facility] BMI 2019-03-20 13:22:00 32.61 kg/m2 [facility] Oxygen saturation in 2019-03-20 13:22:00 97 /min [facility] Arterial blood by Medicine Pulse oximetry Systolic blood 2019-03-06 18:06:00 130 mm[Hg] [facility] pressure Medicine Diastolic blood 2019-03-06 18:06:00 56 mm[Hg] [facility] pressure Medicine Heart rate 2019-03-06 18:06:00 49 /min [facility] Systolic blood 2019-03-06 18:06:00 130 mm[Hg] [facility] Diastolic blood 2019-03-06 18:06:00 56 mm[Hg] [facility] pressure Medicine Heart rate 2019-03-06 18:06:00 49 /min [facility] Systolic blood 2019-03-06 14:46:00 130 mm[Hg] [facility] pressure Medicine Diastolic blood 2019-03-06 14:46:00 66 mm[Hg] [facility] pressure Medicine Heart rate 2019-03-06 14:46:00 55 /min [facility] Body temperature 2019-03-06 14:46:00 36.44 Ronda [facility] Respiratory rate 2019-03-06 14:46:00 16 /min [facility] Body height 2019-03-06 14:46:00 188 cm [facility] Body weight 2019-03-06 14:46:00 117.482 [facility] BMI 2019-03-06 14:46:00 33.25 kg/m2 [facility] Systolic blood 2019-03-06 14:46:00 130 mm[Hg] [facility] pressure Medicine Diastolic blood 2019-03-06 14:46:00 66 mm[Hg] [facility] pressure Medicine Heart rate 2019-03-06 14:46:00 55 /min [facility] Body temperature 2019-03-06 14:46:00 36.44 Ronda [facility] Respiratory rate 2019-03-06 14:46:00 16 /min [facility] Body height 2019-03-06 14:46:00 188 [facility] Body weight 2019-03-06 14:46:00 117.482 kg [facility] BMI 2019-03-06 14:46:00 33.25 kg/m2 [facility] blood 2019-02-21 17:47:00 149 mm[Hg] [facility] Diastolic blood 2019-02-21 17:47:00 61 mm[Hg] [facility] Heart rate 2019-02-21 17:47:00 81 /min [facility] Systolic blood 2019-02-21 17:47:00 149 mm[Hg] [facility] Diastolic blood 2019-02-21 17:47:00 61 mm[Hg] [facility] Heart rate 2019-02-21 17:47:00 81 /min [facility] Systolic blood 2019-02-21 14:44:00 138 mm[Hg] [facility] Diastolic blood 2019-02-21 14:44:00 58 mm[Hg] [facility] Heart rate 2019-02-21 14:44:00 53 /min [facility] Body temperature 2019-02-21 14:44:00 36.44 Ronda [facility] Respiratory rate 2019-02-21 14:44:00 18 /min [facility] Body weight 2019-02-21 14:44:00 117.028 kg [facility] BMI 2019-02-21 14:44:00 33.13 kg/m2 [facility] Oxygen saturation in 2019-02-21 14:44:00 97 /min [facility] Arterial blood by Medicine Pulse oximetry Systolic blood 2019-02-21 14:44:00 138 mm[Hg] [facility] pressure Medicine Diastolic blood 2019-02-21 14:44:00 58 mm[Hg] [facility] Medicine Heart rate 2019-02-21 14:44:00 53 /min [facility] Body temperature 2019-02-21 14:44:00 36.44 [facility] Respiratory rate 2019-02-21 14:44:00 18 /min [facility] Body weight 2019-02-21 14:44:00 117.028 kg [facility] BMI 2019-02-21 14:44:00 33.13 kg/m2 [facility] Oxygen saturation in 2019-02-21 14:44:00 97 /min [facility] Arterial blood by Medicine Pulse oximetry Systolic blood 2019-02-05 19:06:00 149 mm[Hg] [facility] Medicine Diastolic blood 2019-02-05 19:06:00 68 mm[Hg] [facility] Medicine Heart rate 2019-02-05 19:06:00 51 /min [facility] Body temperature 2019-02-05 19:06:00 36.39 Ronda [facility] Respiratory rate 2019-02-05 19:06:00 15 /min [facility] Body height 2019-02-05 19:06:00 188 cm [facility] Body weight 2019-02-05 19:06:00 115.214 kg [facility] BMI 2019-02-05 19:06:00 32.61 kg/m2 [facility] Oxygen saturation in 2019-02-05 19:06:00 93 /min [facility] Arterial blood by Medicine Pulse oximetry Systolic blood 2019-02-05 19:06:00 149 mm[Hg] [facility] pressure Medicine Diastolic blood 2019-02-05 19:06:00 68 mm[Hg] [facility] Heart rate 2019-02-05 19:06:00 51 /min [facility] Body temperature 2019-02-05 19:06:00 36.39 [facility] Respiratory rate 2019-02-05 19:06:00 15 /min [facility] Body height 2019-02-05 19:06:00 188 cm [facility] Body weight 2019-02-05 19:06:00 115.214 kg [facility] BMI 2019-02-05 19:06:00 32.61 kg/m2 [facility] Oxygen saturation in 2019-02-05 19:06:00 93 /min [facility] Arterial blood by [facility] Pulse oximetry Systolic blood 2019-02-05 17:09:00 130 mm[Hg] [facility] Diastolic blood 2019-02-05 17:09:00 78 mm[Hg] [facility] Heart rate 2019-02-05 17:09:00 69 /min [facility] Systolic blood 2019-02-05 17:09:00 130 mm[Hg] [facility] Diastolic blood 2019-02-05 17:09:00 78 mm[Hg] [facility] Heart rate 2019-02-05 17:09:00 69 /min [facility] Systolic blood 2021-01-20 13:10:00 139 mm[Hg] [facility] Diastolic blood 2021-01-20 13:10:00 66 mm[Hg] [facility] Heart rate 2021-01-20 13:10:00 55 /min [facility] Body temperature 2021-01-20 13:10:00 36.39 Ronda [facility] Respiratory rate 2021-01-20 13:10:00 18 /min [facility] Oxygen saturation in 2021-01-20 13:10:00 94 /min [facility] Arterial blood by Medical nter Pulse oximetry Body height 2021-01-20 08:47:00 182.9 cm [facility] Body weight 2021-01-20 08:47:00 118.026 kg [facility] BMI 2021-01-20 08:47:00 35.29 kg/m2 [facility] Procedures Procedure Date / Time Performing Clinician Source Performed [id number] 2021-04-14 00:00:[address] [facility] [id number] 2021-04-11 00:00:00 KREMI [facility] [id number] 2021-04-11 00:00:00 KREMI [facility] [id number] 2021-04-10 00:00:[address] [facility] [id number] 2021-04-06 00:00:[address] [facility] [id number] 2021-03-31 00:00:00 MCKRO [facility] [id number] 2021-03-31 00:00:[address] [facility] [id number] 2021-03-31 00:00:[address] [facility] [id number] 2021-03-31 00:00:00 MCKRO [facility] [id number] 2021-03-31 00:00:00 MCKRO [facility] [id number] 2021-03-31 00:00:00 MCKRO [facility] [id number] 2021-03-31 00:00:00 MCKRO [facility] [id number] 2021-03-31 00:00:[address] [facility] [id number] 2021-03-31 00:00:[address] [facility] [id number] 2021-03-28 00:00:[address] [facility] [id number] 2021-03-28 00:00:[address] [facility] [id number] 2021-03-28 00:00:[address] [facility] TROPONIN I 2021-03-22 17:57:00 Sandy Rivera [facility] XR CHEST 1 VW 2021-03-22 17:35:00 Sandy Rivera [facility] CREATINE KINASE 2021-03-22 17:00:00 Sandy Rivera [facility] MAGNESIUM 2021-03-22 17:00:00 Sandy Rivera [facility] TROPONIN I 2021-03-22 17:00:00 Sandy Rivera [facility] COMP. METABOLIC PANEL 2021-03-22 17:00:00 Sandy Rivera [facility] ([id number]) [facility] CBC WITH DIFF 2021-03-22 17:00:00 Sandy Rivera [facility] N-TERMINAL PRO-BNP 2021-03-22 17:00:00 Sandy Rivera [facility] CONSENT/REFUSAL FOR 2021-03-22 16:40:28 Doctor Unassigned, No Un [facility] DIAGNOSIS AND TREATMENT Name Medical Branch RELEASE,HAMMERTOE 2021-01-20 09:50:00 Fransisco Martinez [facility] TENOTOMY,TOE 2021-01-20 09:50:00 Fransisco Martinez [facility] TENOTOMY,TOE 2021-01-20 09:50:00 Fransisco Martinez [facility] CAPSULOTOMY,TOE 2021-01-20 09:50:00 Fransisco Martinez [facility] ARTHROPLASTY,TOE 2021-01-20 09:50:00 Fransisco Martinez [facility] POCT-GLUCOSE METER 2021-01-20 09:16:00 Fransisco Martinez [facility] SARS-COV2/RT-PCR ([facility] & 2021-01-16 11:18:[address] [facility] - REF LABS) [facility] HEMOGLOBIN 2021-01-16 11:18:00 Nahum Tinoco [facility] BASIC METABOLIC PANEL 2021-01-16 11:18:[address] ECG 12-LEAD 2021-01-16 11:10:13 Nahum Tinoco [facility] ECG 12-LEAD 2021-01-16 11:10:13 Unknown, Hl7 Doctor [facility] POCT-GLUCOSE METER 2020-12-09 07:24:00 [facility] BASIC METABOLIC PANEL 2020-12-09 03:34:00 Fransisco Martinez [address] POCT-GLUCOSE METER 2020-12-08 21:11:00 [facility] XR FOOT 2 VIEWS LEFT 2020-12-08 18:12:00 Fransisco Martinez [facility] POCT-GLUCOSE METER 2020-12-08 17:53:00 [facility] SURGICALLY OBTAINED 2020-12-08 17:16:47 Fransisco Martinez [facility] - CULTURE + GRAM STAIN Medical Alexandra ter ANAEROBIC CULTURE 2020-12-08 17:16:47 Fransisco Martinez [facility] TISSUE EXAM 2020-12-08 17:13:00 Fransisco Martinez [facility] AMPUTATION,TOE 2020-12-08 16:32:00 Fransisco Martinez [facility] POCT-GLUCOSE METER 2020-12-08 13:37:00 [facility] ECG 12-LEAD 2020-12-08 12:57:36 Maximino Blackmon [facility] ECG 12-LEAD 2020-12-08 12:57:36 Unknown, Hl7 Doctor [facility] ECG 12-LEAD 2020-12-08 12:56:01 Unknown, Hl7 Doctor [facility] POCT-GLUCOSE METER 2020-12-08 09:32:00 [facility] CBC W/PLT COUNT & AUTO 2020-12-08 05:48:00 Fransisco Martinez [facility] BASIC METABOLIC PANEL 2020-12-08 05:48:00 Fransisco Martinez [address] CBC W/PLT COUNT & AUTO 2020-12-08 05:48:00 [facility] POCT-GLUCOSE METER 2020-12-07 21:16:00 [facility] POCT-GLUCOSE METER 2020-12-07 17:43:00 [facility] POCT-GLUCOSE METER 2020-12-07 12:45:00 [facility] POCT-GLUCOSE METER 2020-12-07 07:54:00 [facility] BASIC METABOLIC PANEL 2020-12-07 03:40:00 Fransisco Martinez [address] POCT-GLUCOSE METER 2020-12-06 20:52:00 [facility] POCT-GLUCOSE METER 2020-12-06 17:23:00 [facility] VANCOMYCIN LEVEL, TROUGH 2020-12-06 15:18:00 Billy Curtis I [facility] POCT-GLUCOSE METER 2020-12-06 11:35:00 [facility] POCT-GLUCOSE METER 2020-12-06 07:51:00 [facility] BASIC METABOLIC PANEL 2020-12-06 05:24:[address] MAGNESIUM 2020-12-06 05:24:00 [facility] CBC W/PLT COUNT & AUTO 2020-12-06 05:24:00 [facility] HEMOGLOBIN A1C 2020-12-06 05:24:00 [facility] CBC W/PLT COUNT & AUTO 2020-12-06 05:24:00 [facility] POCT-GLUCOSE METER 2020-12-05 20:16:00 Mala Marilyn [facility] LACTIC ACID, VENOUS 2020-12-05 17:08:00 Ricardo Hightower [facility] XR FOOT 3 VIEWS LEFT 2020-12-05 14:24:00 Ricardo Hightower [facility] CBC W/PLT COUNT & AUTO 2020-12-05 14:12:00 Ricardo Hightower [facility] LACTIC ACID, VENOUS 2020-12-05 14:12:00 Ricardo Hightower [facility] COMPREHENSIVE METABOLIC 2020-12-05 14:12:[address] [facility] PROTHROMBIN TIME/INR 2020-12-05 14:12:00 Ricardo Hightower [facility] APTT 2020-12-05 14:12:00 Ricardo Hightower [facility] CBC W/PLT COUNT & AUTO 2020-12-05 14:12:00 Ricardo Hightower [facility] WOUND CULTURE + GRAM 2020-12-05 14:12:[address] [facility] BLOOD CULTURE 2020-12-05 14:12:00 [facility] BLOOD CULTURE 2020-12-05 14:11:00 Ricardo Hightower [facility] CULTURE, ANAEROBIC 2019-03-06 05:00:[address] [facility] CULTURE, AEROBIC 2019-03-06 05:00:00 Fransisco Martinez [facility] ege Medicine CULTURE, AEROBIC 2019-02-05 05:00:00 [facility] 81.54 2010-12-23 00:00:00 MATVA.01 [facility] Plan of Care Planned Activity Planned Date Details Comments Source Future Scheduled 2021-06-07 Hemoglobin A1c [facility] - Test 00:00:00 [facility] (procedure) [code = 42944859] Future Scheduled 2021-03-31 COVID-19 Vaccine (1) [facility] Test 18:58:09 [code = COVID-19 of Medicine Vaccine (1)] Future Scheduled 2021-03-31 TETANUS SHOT (ADULT) [employer] Test 18:58:09 [code = TETANUS SHOT of Medi cine (ADULT)] Future Scheduled 2021-03-31 Diabetic foot [facility]ge Test 18:58:09 examination of Medicine (regime/therapy) [code = 226116987] Future Scheduled 2021-03-31 ANNUAL DIABETIC [facility] C [facility]lege Test 18:58:09 RETINOPATHY SCREENING of Med icine [code = ANNUAL DIABETIC RETINOPATHY SCREENING] Future Scheduled 2021-03-31 ZOSTER VACCINE (1 of [employer] Test 18:58:09 2) [code = ZOSTER of Medicin e VACCINE (1 of 2)] Future Scheduled 2021-03-31 MEDICARE AWV [facility] Test 18:58:09 (Initial) [code = of Medicin e MEDICARE AWV (Initial)] Future Scheduled 2021-03-31 FLU VACCINE > 6 [facility] C [facility]lege Test 18:58:09 MONTHS [code = FLU of Medici ne VACCINE > 6 MONTHS] Future Scheduled 2021-03-31 BMI FOLLOW UP PLAN [facility] Test 18:58:09 [code = BMI FOLLOW UP of Med icine PLAN] Future Scheduled 2021-03-31 FALL SCREEN [code = [facility] [employer] Test 18:58:09 FALL SCREEN] of Medicine Future Scheduled 2021-03-18 WOUND CARE Ordered: [facility] Test 16:57:55 INSTRUCTIONS [code = 03/18/2021 of Medi [email or web address] 01079] Future Scheduled 2021-03-11 [place] DEBRIDEMENT OF Ordered: [facility] Test 08:42:55 NAILS, 6 OR MORE 03/11/2021 of Medicine [code = 93047] Future Scheduled 2021-03-11 [place] DEBR[place] OF Ordered: [facility] Test 08:42:55 NAILS, 6 OR MORE 03/11/2021 of Medicine [code = 22341] Future Scheduled 2021-03-11 COVID-19 Vaccine (1) [facility] [employer] Test 08:36:34 [code = COVID-19 of Medicine Vaccine (1)] Future Scheduled 2021-03-11 TETANUS SHOT (ADULT) [employer] 08:36:34 [code = TETANUS SHOT of Medi cine (ADULT)] Future Scheduled 2021-03-11 Diabetic foot [facility] [employer] Test 08:36:34 examination of Medicine (regime/therapy) [code = [id number]] Future Scheduled 2021-03-11 ANNUAL DIABETIC [facility] [employer] Test 08:36:34 RETINOPATHY SCREENING of Med icine [code = ANNUAL DIABETIC RETINOPATHY SCREENING] Future Scheduled 2021-03-11 ZOSTER VACCINE (1 of [employer] Test 08:36:34 2) [code = ZOSTER of Medicin e VACCINE (1 of 2)] Future Scheduled 2021-03-11 MEDICARE AWV [facility] [employer] [facility] 08:36:34 (Initial) [code = of Medicin e MEDICARE AWV (Initial)] Future Scheduled 2021-03-11 FLU VACCINE > 6 [facility] [employer] Test 08:36:34 MONTHS [code = FLU of Medici ne VACCINE > 6 MONTHS] Future Scheduled 2021-03-11 BMI FOLLOW UP PLAN [employer] Test 08:36:34 [code = BMI FOLLOW UP of Med icine PLAN] Future Scheduled 2021-03-11 FALL SCREEN [code = [employer] [facility] 08:36:34 FALL SCREEN] of Medicine Future Scheduled 2021-03-11 COVID-19 Vaccine (1) [employer] 08:36:34 [code = COVID-19 of Medicine Vaccine (1)] Future Scheduled 2021-03-11 TETANUS SHOT (ADULT) [employer] 08:36:34 [code = TETANUS SHOT of Medi cine (ADULT)] Future Scheduled 2021-03-11 Diabetic foot [facility] [employer] Test 08:36:34 examination of Medicine (regime/therapy) [code = [id number]] Future Scheduled 2021-03-11 ANNUAL DIABETIC [facility] [employer] Test 08:36:34 RETINOPATHY SCREENING of Med icine [code = ANNUAL DIABETIC RETINOPATHY SCREENING] Future Scheduled 2021-03-11 ZOSTER VACCINE (1 of [employer] 08:36:34 2) [code = ZOSTER of Medicin e VACCINE (1 of 2)] Future Scheduled 2021-03-11 MEDICARE AWV [facility] [employer] [facility] 08:36:34 (Initial) [code = of Medicin e MEDICARE AWV (Initial)] Future Scheduled 2021-03-11 FLU VACCINE > 6 [facility] [employer] Test 08:36:34 MONTHS [code = FLU of Medici ne VACCINE > 6 MONTHS] Future Scheduled 2021-03-11 BMI FOLLOW UP PLAN [employer] [facility] 08:36:34 [code = BMI FOLLOW UP of Med icine PLAN] Future Scheduled 2021-03-11 FALL SCREEN [code = [employer] 08:36:34 FALL SCREEN] of Medicine Future Scheduled 2021-02-22 SUTURE REMOVAL KIT Ordered: [employer] 15:16:06 [code = NOCPT] 02/22/2021 of Medicine Future Scheduled 2021-02-22 SUTURE REMOVAL KIT Ordered: [employer] 15:16:06 [code = NOCPT] 02/22/2021 of Medicine Future Scheduled 2021-02-22 FLU VACCINE > 6 [facility] [employer] Test 15:10:13 MONTHS [code = FLU of Medici ne VACCINE > 6 MONTHS] Future Scheduled 2021-02-22 MEDICARE AWV [facility] [facility] 15:10:13 (Initial) [code = of Medicin e MEDICARE AWV (Initial)] Future Scheduled 2021-02-22 FLU VACCINE > 6 [facility] [employer] Test 15:10:13 MONTHS [code = FLU of Medici ne VACCINE > 6 MONTHS] Future Scheduled 2021-02-22 FALL SCREEN [code = [employer] 15:10:13 FALL SCREEN] of Medicine Future Scheduled 2021-02-22 BMI FOLLOW UP PLAN [employer] [facility] 15:10:13 [code = BMI FOLLOW UP of Med icine PLAN] Future Scheduled 2021-02-22 FALL SCREEN [code = [employer] 15:10:13 FALL SCREEN] of Medicine Future Scheduled 2021-02-22 BMI FOLLOW UP PLAN [employer] [facility] 15:10:13 [code = BMI FOLLOW UP of Med icine PLAN] Future Scheduled 2021-02-22 COVID-19 Vaccine (1) [employer] 15:10:13 [code = COVID-19 of Medicine Vaccine (1)] Future Scheduled 2021-02-22 TETANUS SHOT (ADULT) [employer] 15:10:13 [code = TETANUS SHOT of Medi cine (ADULT)] Future Scheduled 2021-02-22 Diabetic foot [facility] [employer] Test 15:10:13 examination of Medicine (regime/therapy) [code = [id number]] Future Scheduled 2021-02-22 ANNUAL DIABETIC [facility] [employer] Test 15:10:13 RETINOPATHY SCREENING of Med icine [code = ANNUAL DIABETIC RETINOPATHY SCREENING] Future Scheduled 2021-02-22 ZOSTER VACCINE (1 of [employer] 15:10:13 2) [code = ZOSTER of Medicin e VACCINE (1 of 2)] Future Scheduled 2021-02-22 MEDICARE AWV [facility] [facility] 15:10:13 (Initial) [code = of Medicin e MEDICARE AWV (Initial)] Future Scheduled 2021-02-22 COVID-19 Vaccine (1) [employer] 15:10:13 [code = COVID-19 of Medicine Vaccine (1)] Future Scheduled 2021-02-22 TETANUS SHOT (ADULT) [employer] 15:10:13 [code = TETANUS SHOT of Medi cine (ADULT)] Future Scheduled 2021-02-22 Diabetic foot [facility] [employer] Test 15:10:13 examination of Medicine (regime/therapy) [code = [id number]] Future Scheduled 2021-02-22 ANNUAL DIABETIC [facility] [employer] Test 15:10:13 RETINOPATHY SCREENING of Med icine [code = ANNUAL DIABETIC RETINOPATHY SCREENING] Future Scheduled 2021-02-22 ZOSTER VACCINE (1 of [employer] 15:10:13 2) [code = ZOSTER of Medicin e VACCINE (1 of 2)] Future Scheduled 2021-02-[address] [facility] - Test 00:00:00 (#1) [code = Medical Center INFLUENZA VACCINE (#1)] Future Scheduled 2021-02-10 COVID-19 Vaccine (1) [employer] 19:07:07 [code = COVID-19 of Medicine Vaccine (1)] Future Scheduled 2021-02-10 TETANUS SHOT (ADULT) [employer] 19:07:07 [code = TETANUS SHOT of Medi cine (ADULT)] Future Scheduled 2021-02-10 Diabetic foot [facility] [employer] Test 19:07:07 examination of Medicine (regime/therapy) [code = [id number]] Future Scheduled 2021-02-10 ANNUAL DIABETIC [facility] [employer] Test 19:07:07 RETINOPATHY SCREENING of Med icine [code = ANNUAL DIABETIC RETINOPATHY SCREENING] Future Scheduled 2021-02-10 ZOSTER VACCINE (1 of [employer] 19:07:07 2) [code = ZOSTER of Medicin e VACCINE (1 of 2)] Future Scheduled 2021-02-10 MEDICARE AWV [facility] [employer] [facility] 19:07:07 (Initial) [code = of Medicin e MEDICARE AWV (Initial)] Future Scheduled 2021-02-10 FLU VACCINE > 6 [facility] [employer] Test 19:07:07 MONTHS [code = FLU of Medici ne VACCINE > 6 MONTHS] Future Scheduled 2021-02-10 FALL SCREEN [code = [employer] 19:07:07 FALL SCREEN] of Medicine Future Scheduled 2021-02-10 BMI FOLLOW UP PLAN [employer] [facility] 19:07:07 [code = BMI FOLLOW UP of Med icine PLAN] Future Scheduled 2021-02-10 COVID-19 Vaccine (1) [employer] 19:07:07 [code = COVID-19 of Medicine Vaccine (1)] Future Scheduled 2021-02-10 TETANUS SHOT (ADULT) [employer] 19:07:07 [code = TETANUS SHOT of Medi cine (ADULT)] Future Scheduled 2021-02-10 Diabetic foot [employer] [facility] 19:07:07 examination of Medicine (regime/therapy) [code = [id number]] Future Scheduled 2021-02-10 ANNUAL DIABETIC [facility] [employer] Test 19:07:07 RETINOPATHY SCREENING of Med icine [code = ANNUAL DIABETIC RETINOPATHY SCREENING] Future Scheduled 2021-02-10 ZOSTER VACCINE (1 of [employer] 19:07:07 2) [code = ZOSTER of Medicin e VACCINE (1 of 2)] Future Scheduled 2021-02-10 MEDICARE AWV [facility] [employer] [facility] 19:07:07 (Initial) [code = of Medicin e MEDICARE AWV (Initial)] Future Scheduled 2021-02-10 FLU VACCINE > 6 [employer] [facility] 19:07:07 MONTHS [code = FLU of Medici ne VACCINE > 6 MONTHS] Future Scheduled 2021-02-10 FALL SCREEN [code = [employer] 19:07:07 FALL SCREEN] of Medicine Future Scheduled 2021-02-10 BMI FOLLOW UP PLAN [employer] 19:07:07 [code = BMI FOLLOW UP of Med icine PLAN] Future Scheduled 2021-02-10 WOUND CARE Ordered: [facility] 16:19:31 INSTRUCTIONS [code = 02/10/2021 of [employer] [id number]] Future Scheduled 2021-02-10 WOUND CARE Ordered: [facility] [facility] 16:19:31 INSTRUCTIONS [code = 02/10/2021 of Medi cine [id number]] Future Scheduled 2021-02-10 COVID-19 Vaccine (1) [employer] 02:34:12 [code = COVID-19 of Medicine Vaccine (1)] Future Scheduled 2021-02-10 TETANUS SHOT (ADULT) [employer] 02:34:12 [code = TETANUS SHOT of Medi cine (ADULT)] Future Scheduled 2021-02-10 Diabetic foot [facility] [employer] Test 02:34:12 examination of Medicine (regime/therapy) [code = [id number]] Future Scheduled 2021-02-10 ANNUAL DIABETIC [facility] [employer] Test 02:34:12 RETINOPATHY SCREENING of Med icine [code = ANNUAL DIABETIC RETINOPATHY SCREENING] Future Scheduled 2021-02-10 ZOSTER VACCINE (1 of [facility] Test 02:34:12 2) [code = ZOSTER of Medicin e VACCINE (1 of 2)] Future Scheduled 2021-02-10 MEDICARE AWV [facility] [employer] [facility] 02:34:12 (Initial) [code = of Medicin e MEDICARE AWV (Initial)] Future Scheduled 2021-02-10 FLU VACCINE > 6 [facility] [employer] Test 02:34:12 MONTHS [code = FLU of Medici ne VACCINE > 6 MONTHS] Future Scheduled 2021-02-10 FALL SCREEN [code = [facility] [employer] Test 02:34:12 FALL SCREEN] of Medicine Future Scheduled 2021-02-10 BMI FOLLOW UP PLAN [facility] [employer] Test 02:34:12 [code = BMI FOLLOW UP of Med icine PLAN] Future Scheduled 2021-02-09 [place] DRAIN[place] OF Ordered: [facility] [employer] Test 13:01:37 HEMATOMA/FLUID [code 02/09/2021 of [email or web address] = [id number]] Future Scheduled 2021-02-09 COVID-19 Vaccine (1) [employer] 12:55:57 [code = COVID-19 of Medicine Vaccine (1)] Future Scheduled 2021-02-09 TETANUS SHOT (ADULT) [employer] 12:55:57 [code = TETANUS SHOT of Medi cine (ADULT)] Future Scheduled 2021-02-09 Diabetic foot [facility] [employer] Test 12:55:57 examination of Medicine (regime/therapy) [code = [id number]] Future Scheduled 2021-02-09 ANNUAL DIABETIC [facility] [employer] Test 12:55:57 RETINOPATHY SCREENING of Med icine [code = ANNUAL DIABETIC RETINOPATHY SCREENING] Future Scheduled 2021-02-09 ZOSTER VACCINE (1 of [employer] 12:55:57 2) [code = ZOSTER of Medicin e VACCINE (1 of 2)] Future Scheduled 2021-02-09 MEDICARE AWV [facility] [employer] 12:55:57 (Initial) [code = of Medicin e MEDICARE AWV (Initial)] Future Scheduled 2021-02-09 FLU VACCINE > 6 [facility] [employer] Test 12:55:57 MONTHS [code = FLU of Medici ne VACCINE > 6 MONTHS] Future Scheduled 2021-02-09 FALL SCREEN [code = [employer] [facility] 12:55:57 FALL SCREEN] of Medicine Future Scheduled 2021-02-09 BMI FOLLOW UP PLAN [facility] [employer] Test 12:55:57 [code = BMI FOLLOW UP of Med icine PLAN] Future Scheduled 2021-02-08 COVID-19 Vaccine (1) [employer] 11:14:39 [code = COVID-19 of Medicine Vaccine (1)] Future Scheduled 2021-02-08 TETANUS SHOT (ADULT) [employer] 11:14:39 [code = TETANUS SHOT of Medi cine (ADULT)] Future Scheduled 2021-02-08 Diabetic foot [facility] [employer] Test 11:14:39 examination of Medicine (regime/therapy) [code = [id number]] Future Scheduled 2021-02-08 ANNUAL DIABETIC [facility] [employer] Test 11:14:39 RETINOPATHY SCREENING of Med icine [code = ANNUAL DIABETIC RETINOPATHY SCREENING] Future Scheduled 2021-02-08 ZOSTER VACCINE (1 of [employer] Test 11:14:39 2) [code = ZOSTER of Medicin e VACCINE (1 of 2)] Future Scheduled 2021-02-08 MEDICARE AWV [facility] 11:14:39 (Initial) [code = of Medicin e MEDICARE AWV (Initial)] Future Scheduled 2021-02-08 FLU VACCINE > 6 [employer] [facility] [employer] Test 11:14:39 MONTHS [code = FLU of Medici ne VACCINE > 6 MONTHS] Future Scheduled 2021-02-08 FALL SCREEN [code = [employer] [facility] 11:14:39 FALL SCREEN] of Medicine Future Scheduled 2021-02-08 BMI FOLLOW UP PLAN [employer] [facility] 11:14:39 [code = BMI FOLLOW UP of Med icine PLAN] Future Scheduled 2021-02-06 US ARTERIAL LEG RIGHT [employer] Test 14:30:18 [code = 45863] of Medicine Future Scheduled 2021-02-06 US ARTERIAL LEG RIGHT 1 Occurrences [employer] Test 14:26:55 [code = 98898] starting of Medicine 02/06/2021 until 02/06/2022 Future Scheduled 2021-01-09 SUTURE REMOVAL KIT Ordered: [facility] [employer] Test 09:49:13 [code = NOCPT] 01/09/2021 of Medicine Future Scheduled 2021-01-09 COVID-19 Vaccine (1) [employer] 09:43:27 [code = COVID-19 of Medicine Vaccine (1)] Future Scheduled 2021-01-09 TETANUS SHOT (ADULT) [employer] 09:43:27 [code = TETANUS SHOT of Medi cine (ADULT)] Future Scheduled 2021-01-09 Diabetic foot [facility] [employer] Test 09:43:27 examination of Medicine (regime/therapy) [code = [id number]] Future Scheduled 2021-01-09 ANNUAL DIABETIC [facility] [employer] Test 09:43:27 RETINOPATHY SCREENING of Med icine [code = ANNUAL DIABETIC RETINOPATHY SCREENING] Future Scheduled 2021-01-09 ZOSTER VACCINE (1 of [employer] Test 09:43:27 2) [code = ZOSTER of Medicin e VACCINE (1 of 2)] Future Scheduled 2021-01-09 MEDICARE AWV [facility] 09:43:27 (Initial) [code = of Medicin e MEDICARE AWV (Initial)] Future Scheduled 2021-01-09 FLU VACCINE > 6 [facility] [employer] Test 09:43:27 MONTHS [code = FLU of Medici ne VACCINE > 6 MONTHS] Future Scheduled 2021-01-09 FALL SCREEN [code = [employer] [facility] 09:43:27 FALL SCREEN] of Medicine Future Scheduled 2021-01-09 BMI FOLLOW UP PLAN [employer] [facility] 09:43:27 [code = BMI FOLLOW UP of Med icine PLAN] Future Scheduled 2020-12-28 COVID-19 Vaccine (1) [employer] [facility] 12:10:08 [code = COVID-19 of Medicine Vaccine (1)] Future Scheduled 2020-12-28 TETANUS SHOT (ADULT) [employer] [facility] 12:10:08 [code = TETANUS SHOT of Medi cine (ADULT)] Future Scheduled 2020-12-28 Diabetic foot [facility] [employer] Test 12:10:08 examination of Medicine (regime/therapy) [code = [id number]] Future Scheduled 2020-12-28 ANNUAL DIABETIC [facility] [employer] Test 12:10:08 RETINOPATHY SCREENING of Med icine [code = ANNUAL DIABETIC RETINOPATHY SCREENING] Future Scheduled 2020-12-28 ZOSTER VACCINE (1 of [employer] Test 12:10:08 2) [code = ZOSTER of Medicin e VACCINE (1 of 2)] Future Scheduled 2020-12-28 MEDICARE AWV [facility] 12:10:08 (Initial) [code = of Medicin e MEDICARE AWV (Initial)] Future Scheduled 2020-12-28 FLU VACCINE > 6 [facility] [employer] Test 12:10:08 MONTHS [code = FLU of Medici ne VACCINE > 6 MONTHS] Future Scheduled 2020-12-28 FALL SCREEN [code = [employer] [facility] 12:10:08 FALL SCREEN] of Medicine Future Scheduled 2020-12-28 BMI FOLLOW UP PLAN [employer] [facility] 12:10:08 [code = BMI FOLLOW UP of Med icine PLAN] Future Scheduled 2020-11-10 [place] DEBR[place] Ordered: [employer] [facility] 16:44:38 WOUND 20 SQ CM< [code 11/10/2020 of Med icine = 88017] Future Scheduled 2020-11-10 COVID-19 Vaccine (1) [employer] 16:37:50 [code = COVID-19 of Medicine Vaccine (1)] Future Scheduled 2020-11-10 TETANUS SHOT (ADULT) [employer] [facility] 16:37:50 [code = TETANUS SHOT of Medi cine (ADULT)] Future Scheduled 2020-11-10 Diabetic foot [facility] [employer] Test 16:37:50 examination of Medicine (regime/therapy) [code = 069675927] Future Scheduled 2020-11-10 ANNUAL DIABETIC [facility] [employer] Test 16:37:50 RETINOPATHY SCREENING of Med icine [code = ANNUAL DIABETIC RETINOPATHY SCREENING] Future Scheduled 2020-11-10 ZOSTER VACCINE (1 of [facility] [employer] Test 16:37:50 2) [code = ZOSTER of Medicin e VACCINE (1 of 2)] Future Scheduled 2020-11-10 MEDICARE AWV [facility] 16:37:50 (Initial) [code = of Medicin e MEDICARE AWV (Initial)] Future Scheduled 2020-11-10 BMI FOLLOW UP PLAN [facility] [employer] Test 16:37:50 [code = BMI FOLLOW UP of Med icine PLAN] Future Scheduled 2020-11-10 FLU VACCINE > 6 [facility] [employer] Test 16:37:50 MONTHS [code = FLU of Medici ne VACCINE > 6 MONTHS] Future Scheduled 2020-11-10 FALL SCREEN [code = [facility] Test 16:37:50 FALL SCREEN] of Medicine Future Scheduled 2004-12-[address] [facility] - Test 00:00:00 WELLNESS (YEAR 2 or Medical Center FIRST YEAR if no IPPE) [code = MEDICARE ANNUAL WELLNESS (YEAR 2 or FIRST YEAR if no IPPE)] Future Scheduled 1989 SHINGLES VACCINES ([address] [facility] - Test 00:00:00 of 2) [code = Medical Center SHINGLES VACCINES (1 of 2)] Future Scheduled 1958 DTAP/TDAP/TD VACCINES [facility] - Test 00:00:00 (1 - Tdap) [code = Medical C enter DTAP/TDAP/TD VACCINES (1 - Tdap)] Future Scheduled 1951 COVID-19 VACCINE (1) [facility] - Test 00:00:00 [code = COVID-[address] VACCINE (1)] Future Scheduled [address] DIABETIC EYE EXAM [facility] - Test 00:00:00 [code = DIABETIC EYE Medical Center EXAM] Future Scheduled [address] [facility] Test 00:[facility]:00 examination Medical Center (regime/therapy) [code = 293546902] Future Scheduled 1949 Urine screening for [facility] - Test 00:00:00 protein (procedure) Medical Center [code = 710994600] Future Scheduled 1944-01-08 COVID-19 Vaccination [facility] Test 00:00:00 (1) [code = COVID-19 Vaccination (1)] Future Scheduled MEDICARE AWV [code = [employer] MEDICARE AWV] of Medicine Future Scheduled TETANUS SHOT (ADULT) [employer] [facility] [code = TETANUS SHOT of [email or web address] [email or web address] (ADULT)] Future Scheduled BMI FOLLOW UP PLAN [employer] [facility] [code = BMI FOLLOW UP of Med icine PLAN] Future Scheduled FALL SCREEN [code = [employer] [facility] FALL SCREEN] of Medicine Future Scheduled PNEUMOVAX >=65 [facility] Test (PPSV23) [code = of Medicine PNEUMOVAX >=65 (PPSV23)] Future Scheduled PREVNAR >= 65 (PCV13) [employer] [facility] [code = PREVNAR >= 65 of Med icine (PCV13)] Future Scheduled FLU VACCINE > 6 [facility] Test MONTHS [code = FLU of Medici ne VACCINE > 6 MONTHS] Future Scheduled [place] DRAIN[place] OF Ordered: [facility] Test HEMATOMA/FLUID [code 02/09/2019 of [employer] = 64070] Future Scheduled [place] DEBRIDEMENT, SKIN, Ordered: [employer] [facility] SUB-Q TISSUE,=<20 SQ 02/09/2019 of [employer] CM [code = 91402] Future Scheduled CULTURE, ANAEROBIC [employer] [facility] [code = 635-3] of Medicine Future Scheduled MEDICARE AWV [code = [employer] MEDICARE AWV] of Medicine Future Scheduled TETANUS SHOT (ADULT) [employer] [facility] [code = TETANUS SHOT of [email or web address] [email or web address] (ADULT)] Future Scheduled Diabetic foot [facility] Test examination of Medicine (regime/therapy) [code = 345748176] Future Scheduled ANNUAL DIABETIC [facility] Test RETINOPATHY SCREENING of Med icine [code = ANNUAL DIABETIC RETINOPATHY SCREENING] Future Scheduled BMI FOLLOW UP PLAN [employer] [facility] [code = BMI FOLLOW UP of Med icine PLAN] Future Scheduled FALL SCREEN [code = [employer] [facility] FALL SCREEN] of Medicine Future Scheduled PNEUMOVAX >=65 [facility] Test (PPSV23) [code = of Medicine PNEUMOVAX >=65 (PPSV23)] Future Scheduled PREVNAR >= 65 (PCV13) [employer] Test [code = PREVNAR >= 65 of Med icine (PCV13)] Future Scheduled FLU VACCINE > 6 [employer] [facility] [employer] Test MONTHS [code = FLU of Medici ne VACCINE > 6 MONTHS] Future Scheduled MEDICARE AWV [code = [employer] [facility] MEDICARE AWV] of Medicine Future Scheduled TETANUS SHOT (ADULT) [employer] [facility] [code = TETANUS SHOT of Medi cine (ADULT)] Future Scheduled Diabetic foot [employer] Test examination of Medicine (regime/therapy) [code = 899800214] Future Scheduled ANNUAL DIABETIC [employer] [facility] [employer] RETINOPATHY SCREENING of Med icine [code = ANNUAL DIABETIC RETINOPATHY SCREENING] Future Scheduled BMI FOLLOW UP PLAN [employer] Test [code = BMI FOLLOW UP of Med icine PLAN] Future Scheduled FALL SCREEN [code = [employer] [facility] FALL SCREEN] of Medicine Future Scheduled PNEUMOVAX >=65 [facility] Test (PPSV23) [code = of Medicine PNEUMOVAX >=65 (PPSV23)] Future Scheduled PREVNAR >= 65 (PCV13) [employer] Test [code = PREVNAR >= 65 of Med icine (PCV13)] Future Scheduled FLU VACCINE > 6 [facility] Test MONTHS [code = FLU of Medici ne VACCINE > 6 MONTHS] Future Scheduled MEDICARE AWV [code = [employer] MEDICARE AWV] of Medicine Future Scheduled TETANUS SHOT (ADULT) [employer] Test [code = TETANUS SHOT of Medi cine (ADULT)] Future Scheduled Diabetic foot [employer] [facility] examination of Medicine (regime/therapy) [code = 925597262] Future Scheduled ANNUAL DIABETIC [facility] Test RETINOPATHY SCREENING of Med icine [code = ANNUAL DIABETIC RETINOPATHY SCREENING] Future Scheduled BMI FOLLOW UP PLAN [employer] Test [code = BMI FOLLOW UP of Med icine PLAN] Future Scheduled FALL SCREEN [code = [employer] [facility] FALL SCREEN] of Medicine Future Scheduled FLU VACCINE > 6 [facility] Test MONTHS [code = FLU of Medici ne VACCINE > 6 MONTHS] Future Scheduled [place] DEBR[place]EMENT, SKIN, Ordered: [employer] [facility] SUB-Q TISSUE,=<20 SQ 03/11/2019 of Medi cine CM [code = 85822] Future Scheduled MEDICARE AWV [code = [employer] MEDICARE AWV] of Medicine Future Scheduled TETANUS SHOT (ADULT) [employer] [facility] [code = TETANUS SHOT of Medi cine (ADULT)] Future Scheduled Diabetic foot [employer] [facility] examination of Medicine (regime/therapy) [code = 591237180] Future Scheduled ANNUAL DIABETIC [facility] Test RETINOPATHY SCREENING of Med icine [code = ANNUAL DIABETIC RETINOPATHY SCREENING] Future Scheduled BMI FOLLOW UP PLAN [employer] Test [code = BMI FOLLOW UP of Med icine PLAN] Future Scheduled FALL SCREEN [code = [employer] [facility] FALL SCREEN] of Medicine Future Scheduled FLU VACCINE > 6 [employer] [facility] [employer] Test MONTHS [code = FLU of Medici ne VACCINE > 6 MONTHS] Future Scheduled [place] DEBRIDEMENT, SKIN, Ordered: [facility] SUB-Q TISSUE,=<20 SQ 03/12/2019 of Medi cine CM [code = 89364] Future Scheduled [place] DRAIN SKIN ABSCESS Ordered: [facility] Test SIMPLE [code = 31675] 03/12/2019 of Med icine Future Scheduled MEDICARE AWV [code = [employer] MEDICARE AWV] of Medicine Future Scheduled TETANUS SHOT (ADULT) [employer] Test [code = TETANUS SHOT of Medi cine (ADULT)] Future Scheduled Diabetic foot [facility] Test examination of Medicine (regime/therapy) [code = 195928654] Future Scheduled ANNUAL DIABETIC [employer] [facility] [employer] RETINOPATHY SCREENING of Med icine [code = ANNUAL DIABETIC RETINOPATHY SCREENING] Future Scheduled BMI FOLLOW UP PLAN [employer] Test [code = BMI FOLLOW UP of Med icine PLAN] Future Scheduled FALL SCREEN [code = [employer] [facility] FALL SCREEN] of Medicine Future Scheduled FLU VACCINE > 6 [employer] [facility] [employer] MONTHS [code = FLU of Medici ne VACCINE > 6 MONTHS] Future Scheduled MEDICARE AWV [code = [employer] [facility] MEDICARE AWV] of Medicine Future Scheduled TETANUS SHOT (ADULT) [employer] [facility] [code = TETANUS SHOT of Medi cine (ADULT)] Future Scheduled Diabetic foot [facility] Test examination of Medicine (regime/therapy) [code = 178190375] Future Scheduled ANNUAL DIABETIC [facility] Test RETINOPATHY SCREENING of Med icine [code = ANNUAL DIABETIC RETINOPATHY SCREENING] Future Scheduled BMI FOLLOW UP PLAN [employer] [facility] [code = BMI FOLLOW UP of Med icine PLAN] Future Scheduled FALL SCREEN [code = [employer] [facility] FALL SCREEN] of Medicine Future Scheduled FLU VACCINE > 6 [employer] [facility] [employer] Test MONTHS [code = FLU of Medici ne VACCINE > 6 MONTHS] Future Scheduled [place] DEBRIDEMENT OPEN Ordered: [employer] WOUND 20 SQ CM< [code 04/10/2019 of Med icine = 66667] Future Scheduled MEDICARE AWV [code = [employer] MEDICARE AWV] of Medicine Future Scheduled TETANUS SHOT (ADULT) [employer] [code = TETANUS SHOT of Medi cine (ADULT)] Future Scheduled Diabetic foot [facility] [employer] Test examination of Medicine (regime/therapy) [code = 147577326] Future Scheduled ANNUAL DIABETIC [facility] C [employer]lege Test RETINOPATHY SCREENING of Med icine [code = ANNUAL DIABETIC RETINOPATHY SCREENING] Future Scheduled BMI FOLLOW UP PLAN [employer] [code = BMI FOLLOW UP of Med icine PLAN] Future Scheduled FALL SCREEN [code = [employer] FALL SCREEN] of Medicine Future Scheduled [place] DRAINAGE OF Ordered: [facility] llege Test HEMATOMA/FLUID [code 07/23/2019 of Medi cine = 64730] Future Scheduled TETANUS SHOT (ADULT) [employer] [code = TETANUS SHOT of Medi cine (ADULT)] Future Scheduled Diabetic foot [facility] [employer]ge Test examination of Medicine (regime/therapy) [code = 275404167] Future Scheduled ANNUAL DIABETIC [facility] C [employer] Test RETINOPATHY SCREENING of Med icine [code = ANNUAL DIABETIC RETINOPATHY SCREENING] Future Scheduled BMI FOLLOW UP PLAN [employer] [code = BMI FOLLOW UP of Med icine PLAN] Future Scheduled FALL SCREEN [code = [employer] FALL SCREEN] of Medicine Future Scheduled PNEUMOVAX >=65 [facility] [employer] Test (PPSV23) [code = of Medicine PNEUMOVAX >=65 (PPSV23)] Future Scheduled PREVNAR >= 65 (PCV13) [employer] Test [code = PREVNAR >= 65 of Med icine (PCV13)] Future Scheduled MEDICARE AWV [facility] Alfredo [employer] Test (Initial) [code = of Medicin e MEDICARE AWV (Initial)] Future Scheduled [place] DEBRIDEMENT OF Ordered: [facility] Braydon Test NAILS, 6 OR MORE 08/24/2019 of Medicine [code = 21199] Future Scheduled [place] TRIM BENIGN Ordered: [facility] [employer] Test HYPERKERATOTIC SKIN 08/24/2019 of Medic ine LESION,2-4 [code = 72383] Future Scheduled TETANUS SHOT (ADULT) [employer] [code = TETANUS SHOT of Medi cine (ADULT)] Future Scheduled Diabetic foot [facility] Col [employer] Test examination of Medicine (regime/therapy) [code = 641365825] Future Scheduled ANNUAL DIABETIC [facility] C [employer]lege Test RETINOPATHY SCREENING of Med icine [code = ANNUAL DIABETIC RETINOPATHY SCREENING] Future Scheduled BMI FOLLOW UP PLAN [employer] [code = BMI FOLLOW UP of Med icine PLAN] Future Scheduled FALL SCREEN [code = [employer] FALL SCREEN] of Medicine Future Scheduled PNEUMOVAX >=65 [employer] (PPSV23) [code = of Medicine PNEUMOVAX >=65 (PPSV23)] Future Scheduled PREVNAR >= 65 (PCV13) [employer] [code = PREVNAR >= 65 of Med icine (PCV13)] Future Scheduled MEDICARE AWV [employer] (Initial) [code = of Medicin e MEDICARE AWV (Initial)] Future Scheduled [place] DEBRIDEMENT OPEN Ordered: [employer] WOUND 20 SQ CM< [code 11/16/2019 of Med icine = 86625] Future Scheduled [place] DEBRIDEMENT OF Ordered: [employer] Test NAILS, 6 OR MORE 11/16/2019 of Medicine [code = 57192] Future Scheduled [place] REMOVAL OF NAIL Ordered: [employer] PLATE [code = 16223] 11/28/2019 of Medi cine Future Scheduled [place] DEBRIDEMENT OF Ordered: [facility] College Test NAILS, 6 OR MORE 11/28/2019 of Medicine [code = 23515] Future Scheduled [place] TRIM BENIGN Ordered: [employer] Test HYPERKERATOTIC SKIN 11/28/2019 of Medic ine LESION,2-4 [code = 55798] Future Scheduled TETANUS SHOT (ADULT) [employer] [code = TETANUS SHOT of Medi cine (ADULT)] Future Scheduled Diabetic foot [facility] Col [employer] Test examination of Medicine (regime/therapy) [code = 188316185] Future Scheduled ANNUAL DIABETIC [facility] C [employer]lege Test RETINOPATHY SCREENING of Med icine [code = ANNUAL DIABETIC RETINOPATHY SCREENING] Future Scheduled FALL SCREEN [code = [employer] FALL SCREEN] of Medicine Future Scheduled PNEUMOVAX >=65 [employer] Test (PPSV23) [code = of Medicine PNEUMOVAX >=65 (PPSV23)] Future Scheduled MEDICARE AWV [employer] (Initial) [code = of Medicin e MEDICARE AWV (Initial)] Future Scheduled FLU VACCINE > 6 [employer] Test MONTHS [code = FLU of Medici ne VACCINE > 6 MONTHS] Future Scheduled BMI FOLLOW UP PLAN [employer] [code = BMI FOLLOW UP of Med icine PLAN] Future Scheduled [place] DEBRIDEMENT OPEN Ordered: [employer] WOUND 20 SQ CM< [code 12/03/2019 of Med icine = 41326] Future Scheduled [place] TRIM Ordered: [facility] [employer] Test HYPERKERATOTIC SKIN 12/09/2019 of Medic ine LESION, ONE [code = 18840] Future Scheduled TETANUS SHOT (ADULT) [employer] [code = TETANUS SHOT of Medi cine (ADULT)] Future Scheduled Diabetic foot [facility] Col [employer]ge Test examination of Medicine (regime/therapy) [code = 000054895] Future Scheduled ANNUAL DIABETIC [facility] C [employer]lege Test RETINOPATHY SCREENING of Med icine [code = ANNUAL DIABETIC RETINOPATHY SCREENING] Future Scheduled FALL SCREEN [code = [employer] FALL SCREEN] of Medicine Future Scheduled MEDICARE AWV [facility] [employer] Test (Initial) [code = of Medicin e MEDICARE AWV (Initial)] Future Scheduled FLU VACCINE > 6 [employer] Test MONTHS [code = FLU of Medici ne VACCINE > 6 MONTHS] Future Scheduled BMI FOLLOW UP PLAN [employer] [code = BMI FOLLOW UP of Med icine PLAN] Future Scheduled [place] TRIM BENIGN Ordered: [facility] [employer] Test HYPERKERATOTIC SKIN 12/11/2019 of Medic ine LESION,2-4 [code = 51645] Future Scheduled TETANUS SHOT (ADULT) [employer] [code = TETANUS SHOT of Medi cine (ADULT)] Future Scheduled Diabetic foot [employer] Test examination of Medicine (regime/therapy) [code = 982780915] Future Scheduled ANNUAL DIABETIC [facility] C [employer] Test RETINOPATHY SCREENING of Med icine [code = ANNUAL DIABETIC RETINOPATHY SCREENING] Future Scheduled FALL SCREEN [code = [employer] FALL SCREEN] of Medicine Future Scheduled MEDICARE AWV [facility] [employer] Test (Initial) [code = of Medicin e MEDICARE AWV (Initial)] Future Scheduled FLU VACCINE > 6 [facility] C [employer]lege Test MONTHS [code = FLU of Medici ne VACCINE > 6 MONTHS] Future Scheduled BMI FOLLOW UP PLAN [employer] [code = BMI FOLLOW UP of Med icine PLAN] Future Scheduled [place] DEBRIDEMENT OPEN Ordered: [employer] WOUND 20 SQ CM< [code 12/17/2019 of Med icine = 02098] Future Scheduled [place] DEBRIDEMENT OPEN Ordered: [employer] WOUND EA ADDL 20 SQ 12/17/2019 of Medic ine CM [code = 32985] Future Scheduled [place] DEBRIDEMENT OPEN Ordered: [employer] WOUND 20 SQ CM< [code 12/30/2019 of Med icine = 56094] Future Scheduled TETANUS SHOT (ADULT) [employer] [code = TETANUS SHOT of Medi cine (ADULT)] Future Scheduled Diabetic foot [facility] [employer] Test examination of Medicine (regime/therapy) [code = 709886918] Future Scheduled ANNUAL DIABETIC [facility] C [employer] Test RETINOPATHY SCREENING of Med icine [code = ANNUAL DIABETIC RETINOPATHY SCREENING] Future Scheduled FALL SCREEN [code = [employer] FALL SCREEN] of Medicine Future Scheduled MEDICARE AWV [facility] [employer] Test (Initial) [code = of Medicin e MEDICARE AWV (Initial)] Future Scheduled FLU VACCINE > 6 [employer] Test MONTHS [code = FLU of Medici ne VACCINE > 6 MONTHS] Future Scheduled BMI FOLLOW UP PLAN [employer] [code = BMI FOLLOW UP of Med icine PLAN] Future Scheduled [place] DEBRIDEMENT OF Ordered: [facility] [employer] Test NAILS, 6 OR MORE 05/06/2020 of Medicine [code = 79724] Future Scheduled [place] DEBRIDEMENT OPEN Ordered: [employer] WOUND 20 SQ CM< [code 05/06/2020 of Med icine = 07717] Future Scheduled TETANUS SHOT (ADULT) [employer] [code = TETANUS SHOT of Medi cine (ADULT)] Future Scheduled Diabetic foot [employer] Test examination of Medicine (regime/therapy) [code = 068263447] Future Scheduled ANNUAL DIABETIC [facility] C [employer]lege Test RETINOPATHY SCREENING of Med icine [code = ANNUAL DIABETIC RETINOPATHY SCREENING] Future Scheduled ZOSTER VACCINE (1 of [employer] 2) [code = ZOSTER of Medicin e VACCINE (1 of 2)] Future Scheduled FALL SCREEN [code = [employer] FALL SCREEN] of Medicine Future Scheduled MEDICARE AWV [employer] (Initial) [code = of Medicin e MEDICARE AWV (Initial)] Future Scheduled FLU VACCINE > 6 [employer] Test MONTHS [code = FLU of Medici ne VACCINE > 6 MONTHS] Future Scheduled BMI FOLLOW UP PLAN [employer] [code = BMI FOLLOW UP of Med icine PLAN] Future Scheduled [place] DEBRIDEMENT OPEN Ordered: [employer] WOUND 20 SQ CM< [code 10/16/2020 of Med icine = 93766] Future Scheduled [place] DRAINAGE OF Ordered: [facility] [employer] Test HEMATOMA/FLUID [code 10/16/2020 of Medi cine = 31253] Future Scheduled TETANUS SHOT (ADULT) [employer] [code = TETANUS SHOT of Medi cine (ADULT)] Future Scheduled COVID-19 Vaccine (1) [employer] [code = COVID-19 of Medicine Vaccine (1)] Future Scheduled Diabetic foot [facility] Col [employer] Test examination of Medicine (regime/therapy) [code = 091538019] Future Scheduled ANNUAL DIABETIC [employer] RETINOPATHY SCREENING of Med icine [code = ANNUAL DIABETIC RETINOPATHY SCREENING] Future Scheduled ZOSTER VACCINE (1 of [employer] 2) [code = ZOSTER of Medicin e VACCINE (1 of 2)] Future Scheduled MEDICARE AWV [facility] Afl[employer]o e[employer] Test (Initial) [code = of Medicin e MEDICARE AWV (Initial)] Future Scheduled BMI FOLLOW UP PLAN [employer] [code = BMI FOLLOW UP of Med icine PLAN] Future Scheduled FLU VACCINE > 6 [facility] C ollege Test MONTHS [code = FLU of Medici ne VACCINE > 6 MONTHS] Future Scheduled FALL SCREEN [code = [employer] FALL SCREEN] of Medicine Future Scheduled XR FOOT LEFT 1 Occurrences [employer] Test (COMPLETE) [code = [place] [address]-7] 11/30/2019 until 07/01/2020 Future Scheduled XR FOOT LEFT 1 Occurrences [employer] Test (COMPLETE) [code = [place] [address]-2] 11/30/2019 until 07/01/2020 Encounters Start End Encounter Admission Attending Care Care Encounter Source Date/Time Date/Time Type Type Clinicians Facility Department ID 2021-05-28 [id number] 16:48:[address] [facility] 2021-05-13 Inpatient TERE Mccollum [facility] [id number] [facility] 14:03:[address] [facility] 2021-04-22 Inpatient EL Akintokunbo [facility] [id number] [facility] 14:03:00 , January [address] [facility] 2021-04-21 Inpatient Alma, [facility] [id number] [facility] 09:00:[address] [facility] 2021-03-22 Outpatient ROSS, [facility] Surgery [id number] SLE 05:54:07 FRANSISCO 2021-03-22 Outpatient ROSS, [facility] Surgery [id number] SLE 05:00:01 FRANSISCO 2021-03-20 Outpatient ROSS, [facility] Surgery [id number] SLEH 17:59:31 FRANSISCO 2021-06-01 2021-06-02 Inpatient EL Mahnaz, [facility] INTE [id number] [facility] 11:07:00 16:36:[address] [facility] 2021-06-01 2021-06-02 Inpatient EL Mahnaz, [facility] INTE [id number] [facility] 11:07:00 16:36:[address] [facility] 2021-05-28 2021-05-28 Outpatient EL Mahnaz [facility] RADI [id number] [facility] 16:15:00 16:15:[address] [facility] 2021-04-28 2021-05-12 Outpatient EL Akintoearnestunbo [facility] WCAR [id number] [facility] 11:41:00 00:00:00 , January [address] [facility] 2021-04-10 2021-04-21 Inpatient EL Alma, [facility] REHA [id number] [facility] 20:01:00 11:15:[address] [facility] 2021-04-10 2021-04-21 Inpatient EL Spiceland, [facility] REHA [id number] [facility] 20:01:00 11:15:[address] [facility] 2021-03-28 2021-04-10 Inpatient EL Waldo, [facility] INTE [id number] [facility] 08:17:00 21:05:[address] [facility] 2021-03-28 2021-04-10 Inpatient EL Waldo, [facility] INTE [id number] [facility] 08:17:00 21:05:[address] [facility] 2021-03-22 2021-03-22 Emergency [facility] [id number] Univers 11:49:00 14:14:00 Sandy Shine 350.1.13.10 ity of [place] 4.2.7.2.686 [facility] [id number] [facility] 084 Branch 2021-03-22 2021-03-22 Emergency X [facility] ERT [id number] Univers 11:41:00 11:41:00 SANDY ity of [facility] 2021-03-22 2021-03-22 Orders Doctor NAHUM 1.2.840.114 [id number] Univers 00:00:00 00:00:00 Only Unassigned, JEISON 350.1.13.10 ity of [facility] 4.2.7.2.686 [facility] [id number] [facility] 009 Branch 2021-03-18 2021-03-18 Office FELY Martinez 1.2.840.[id number] [place] [address] 15:31:18 16:54:10 Visit Fransisco A AMBULATOR 350.1.13.21 College Y 0.2.7.2.686 of [id number] [facility] 825 e 2021-03-05 2021-03-05 Mann Hernandez [facility] [id number] [facility] 00:00:00 00:00:00 [facility] 2021-03-02 2021-03-02 Office FELY Martinez 1.2.840.114 [id number] [facility] 08:46:18 11:25:54 Visit Fransisco A AMBULATOR 350.1.13.21 College Y 0.2.7.2.686 of [id number] [facility] 825 e 2021-02-18 2021-02-18 Office FELY Martinez 1.2.840.114 [id number] [facility] 13:54:30 14:56:46 Visit Fransisco A AMBULATOR 350.1.13.21 College Y 0.2.7.2.686 of [id number] [facility] 825 e 2021-02-10 2021-02-10 Office FELY Martinez 1.2.840.114 [id number] [facility] 13:37:31 16:24:40 Visit Fransisco A AMBULATOR 350.1.13.21 College Y 0.2.7.2.686 of [id number] [facility] 825 e 2021-02-06 2021-02-06 [facility] [id number] [facility] 14:30:18 16:22:10 Colleg e of Medicin e 2021-02-06 2021-02-06 Office FreddieSEJAL 1.2.840.114 [id number] [facility] 13:21:04 15:54:34 Visit Fransisco A AMBULATOR 350.1.13.21 College Y 0.2.7.2.686 of [id number] [facility] 825 e 2021-02-03 2021-02-04 Office SEJAL Martinez 1.2.840.114 [id number] [facility] 16:13:42 16:10:53 Visit Fransisco A AMBULATOR 350.1.13.21 College Y 0.2.7.2.686 of [id number] [facility] 825 e 2021-01-30 2021-01-[address] [facility] 1.2.840.114 [id number] [facility] 14:20:42 15:26:39 Visit Fransisco A AMBULATOR 350.1.13.21 College Y 0.2.7.2.686 of [id number] [facility] 825 e 2021-01-20 2021-01-20 Hospital ETRE Martinez [facility] [id number] 05:52:00 13:34:00 [facility] 2021-01-20 2021-01-20 Anesthesia Concepción [facility] [id number] 10:05:00 12:25:00 Event Germán Pelaez [facility] 2021-01-20 2021-01-20 Surgery Freddie [facility] [id number] 09:30:00 12:00:00 Fransisco Cantrell [facility] 2021-01-20 2021-01-20 Travel [facility] [id number] [facility] 00:00:00 00:00:00 [facility] 2021-01-19 2021-01-19 [facility] [id number] 08:25:00 23:59:00 Encounter [facility] 2021-01-19 2021-01-19 Outpatient EL SLE [facility] [id number] [facility] 00:00:00 00:00:00 2021-01-19 2021-01-19 Travel [facility] [id number] [facility] 00:[facility]00 00:00:00 [facility] 2021-01-16 2021-01-16 [facility] [id number] [facility] [address] 10:30:00 23:59:00 Encounter Fransisco Vieyra [facility] 2021-01-16 2021-01-16 Outpatient [facility] [id number] [facility] 00:00:00 23:59:00 Blanche 2021-01-16 2021-01-16 Outpatient EL [facility]H [facility] [id number] [facility] 00:00:00 00:00:00 2021-01-16 2021-01-16 Outpatient EL [facility]H [facility] [id number] [facility] 00:00:00 00:00:00 2021-01-16 2021-01-16 Outpatient EL [facility]H [facility] [id number] [facility] 00:00:00 00:00:00 2021-01-16 2021-01-16 [facility] [id number] [facility] 00:[facility]00 00:00:00 Only [facility] 2021-01-15 2021-01-15 Outpatient SLEH [facility] [id number] [facility] 00:00:00 00:00:00 2020-12-31 2020-12-31 Office FELY Martinez 1.2.840.114 [id number] [facility] 13:28:07 15:24:20 Visit Fransisco Alvarez AMBULATOR 350.1.13.21 College Y 0.2.7.2.686 of [id number] [facility] 825 e 2020-12-17 2020-12-17 Office FELY Martinez 1.2.840.114 [id number] [facility] 11:58:33 15:03:21 Visit Fransisco Alvarez AMBULATOR 350.1.13.21 College Y 0.2.7.2.686 of [id number] [facility] 825 e 2020-12-05 2020-12-09 Hospital ER Ricardo Hightower [facility] [id number] 14:20:00 13:18:00 Encounter Marilyn Costa [facility] 2020-12-08 2020-12-08 Outpatient [facility] [id number] [facility] 00:00:00 23:59:00 Blanche 2020-12-08 2020-12-08 Anesthesia Ellis Abrams [facility] [id number] 16:40:00 17:49:00 Event Madiha Méndez [facility] 2020-12-08 2020-12-08 Surgery Freddie [facility] [id number] 15:30:00 16:44:00 Fransisco Campoverde [facility] 2020-12-08 2020-12-08 Orders [facility] [id number] 00:00:00 00:00:00 Only [facility] 2020-12-05 2020-12-05 Emergency ER [facility] Emergency [id number] [facility] 13:27:00 13:27:00 2020-12-05 2020-12-05 Travel [facility] [id number] [facility] 00:00:00 00:00:00 [facility] 2020-11-05 2020-11-05 Office FELY Martinez 1.2.840.114 [id number] [facility] 14:29:28 16:08:16 Visit Fransisco Alvarez AMBULATOR 350.1.13.21 College Y 0.2.7.2.686 of [id number] [facility] 825 e 2020-10-08 2020-10-08 Office FELY Martinez 1.2.840.114 [id number] [facility] 13:08:44 15:10:37 Visit Fransisco A AMBULATOR 350.1.13.21 College Y 0.2.7.2.686 of [id number] [facility] 825 2020-06-23 2020-06-23 [facility] [id number] 23:59:00 23:59:00 [facility] 2020-06-23 2020-06-23 Outpatient SLEH SLE [id number] [facility] 00:00:00 00:00:00 2020-05-23 2020-05-23 [facility] [id number] 00:00:00 00:00:00 Only [facility] 2020-04-29 2020-04-29 Office FELY Martinez 1.2.840.114 [id number] [facility] 15:37:33 16:48:53 Visit Fransisco A AMBULATOR 350.1.13.21 College Y 0.2.7.2.686 of [id number] [place] 769415 e 2019-12-17 2019-12-17 Office FELY Martinez 1.2.840.114 [id number] [facility] 09:27:18 12:21:50 Visit Fransisco A AMBULATOR 350.1.13.21 College Y 0.2.7.2.686 of [id number] [place] 769415 e 2019-12-07 2019-12-07 Office FELY Martinez 1.2.840.114 [id number] 09:06:57 12:03:34 Visit Fransisco A AMBULATOR 350.1.13.21 Y 0.2.7.2.686 [id number] [facility] 2019-12-07 2019-12-07 Office FELY Martinez 1.2.840.114 [id number] [facility] 09:06:57 12:03:34 Visit Fransisco A AMBULATOR 350.1.13.21 College Y 0.2.7.2.686 of [id number] [facility] 825 e 2019-11-30 2019-11-30 Office FELY Martinez 1.2.840.114 [id number] 13:57:09 15:42:09 Visit Fransisco A AMBULATOR 350.1.13.21 Y 0.2.7.2.686 [id number] [facility] 2019-11-30 2019-11-30 Office FELY Martinez 1.2.840.114 [id number] [facility] 13:57:09 15:42:09 Visit Fransisco A AMBULATOR 350.1.13.21 College Y 0.2.7.2.686 of [id number] [place] [address] e 2019-11-30 2019-11-30 Outpatient [facility] [id number] [facility] 00:00:00 00:00:00 KAVYA 2019-11-16 2019-11-16 Office FELY Martinez 1.2.840.114 [id number] 10:09:45 15:40:42 Visit Fransisco A AMBULATOR 350.1.13.21 Y 0.2.7.2.686 [id number] [facility] 2019-11-16 2019-11-16 Office FELY Martinez 1.2.840.[id number] [place] [address] 10:09:45 15:40:42 Visit Fransisco A AMBULATOR 350.1.13.21 College Y 0.2.7.2.686 of [id number] [place] [address] e 2019-08-17 2019-08-17 Office FELY Martinez 1.2.840.114 [id number] 10:00:59 12:27:10 Visit Fransisco A AMBULATOR 350.1.13.21 Y 0.2.7.2.686 [id number] [facility] 2019-08-17 2019-08-17 Office FELY Martinez 1.2.840.114 [id number] [facility] 10:00:59 12:27:10 Visit Fransisco A AMBULATOR 350.1.13.21 College Y 0.2.7.2.686 of [id number] [place] [address] e 2019-07-16 2019-07-16 Office FELY Martinez 1.2.840.114 [id number] 08:36:52 11:36:45 Visit Fransisco A AMBULATOR 350.1.13.21 Y 0.2.7.2.686 [id number] [facility] 2019-07-16 2019-07-16 Office FELY Martinez 1.2.840.114 [id number] [facility] 08:36:52 11:36:45 Visit Fransisco A AMBULATOR 350.1.13.21 College Y 0.2.7.2.686 of [id number] [facility] 825 e 2019-03-20 2019-03-21 Office FELY Martinez 1.2.840.114 [id number] 09:40:39 14:45:44 Visit Fransisco A AMBULATOR 350.1.13.21 Y 0.2.7.2.686 [id number] 2019-03-20 2019-03-21 Office FELY Martinez 1.2.840.114 [id number] [facility] 09:40:39 14:45:44 Visit Franissco A AMBULATOR 350.1.13.21 College Y 0.2.7.2.686 of [id number] [facility] 820 e 2019-03-20 2019-03-20 Office Tamra SEJALSaurabh 1.2.840.114 [id number] 07:41:29 08:11:29 Visit Nel AMBULATOR 350.1.13.21 Y 0.2.7.2.686 [id number] 2019-03-20 2019-03-20 Office FELY Barboza 1.2.840.114 [id number] [facility] 07:41:29 08:11:29 Visit Nel AMBULATOR 350.1.13.21 College Y 0.2.7.2.686 of [id number] [facility] 355 e 2019-03-06 2019-03-06 Office FELY Martinez 1.2.840.114 [id number] 11:26:14 11:56:14 Visit Fransisco A AMBULATOR 350.1.13.21 Y 0.2.7.2.686 [id number] 2019-03-06 2019-03-06 Office FELY Martinez 1.2.840.[id number] [place] [address] 11:26:14 11:56:14 Visit Fransisco A AMBULATOR 350.1.13.21 College Y 0.2.7.2.686 of [id number] [facility] 820 e 2019-03-06 2019-03-06 Office FELY Barboza 1.2.840.114 [id number] 09:38:52 10:08:52 Visit Nel AMBULATOR 350.1.13.21 Y 0.2.7.2.686 [id number] 2019-03-06 2019-03-06 Office FELY Barboza 1.2.840.114 [id number] [facility] 09:38:52 10:08:52 Visit Nel AMBULATOR 350.1.13.21 College Y 0.2.7.2.686 of [id number] [facility] 355 e 2019-02-21 2019-02-21 Office FELY Martinez 1.2.840.114 [id number] 11:09:51 13:35:52 Visit Fransisco A AMBULATOR 350.1.13.21 Y 0.2.7.2.686 [id number] 2019-02-21 2019-02-21 Office FELY Martinez 1.2.840.114 [id number] [place] [address] 11:09:51 13:35:52 Visit Fransisco A AMBULATOR 350.1.13.21 College Y 0.2.7.2.686 of [phone] [facility] dalia 820 e 2019-02-21 2019-02-21 Office FELY Barboza 1.2.840.114 [id number] 09:36:32 10:06:32 Visit Nel AMBULATOR 350.1.13.21 Y 0.2.7.2.686 [id number] 2019-02-21 2019-02-21 Office FELY Barboza 1.2.840.[id number] [place] [address] 09:36:32 10:06:32 Visit Nel AMBULATOR 350.1.13.21 College Y 0.2.7.2.686 of [phone] [facility] 355 e 2019-02-05 2019-02-05 Office FELY Barboza 1.2.840.114 [id number] 13:46:52 14:46:52 Visit Nel AMBULATOR 350.1.13.21 Y 0.2.7.2.686 [id number] 355 2019-02-05 2019-02-05 Office FELY Barboza 1.2.840.114 [id number] 88 [facility] 13:46:52 14:46:52 Visit Nel AMBULATOR 350.1.13.21 College Y 0.2.7.2.686 of [phone] [facility] dalia 355 e 2019-02-05 2019-02-05 Office FELY Martinez 1.2.840.114 [id number] 11:23:12 11:53:12 Visit Fransisco Alvarez AMBULATOR 350.1.13.21 Y 0.2.7.2.686 [id number] 820 2019-02-05 2019-02-05 Office FELY Martinez 1.2.840.114 [id number] 73 [facility] 11:23:12 11:53:12 Visit Fransisco Alvarez AMBULATOR 350.1.13.21 College Y 0.2.7.2.686 of [id number] [facility] 820 e 2010-12-22 2010-12-24 Inpatient TERE Marin, [facility] SURG [id number] [facility] 07:05:00 16:45:00 [facility] [address] [facility] Results Test Description Test Time Test Comments Results Result Comments Source GLUCOSE BEDSIDE TESTING 2021-06-02 15:35:00 Test Item Value Reference Range Interpretation Comme nts GLUCOSE BEDSIDE TESTING (test code = GLUBED) 69 MG/DL 60-99 N GLUCOSE BEDSIDE [id number] 11:19:00 Test Item Value Reference Range Interpretation Comments GLUCOSE BEDSIDE TESTING (test code 105 MG/DL 60-99 H = GLUBED) - XR CHEST [id number] 08:24:00 [facility] : 1940 Sex: M Patient Name: KIP MARCH Unit No: [id number] EXAMS: CPT CODE: [id number] XR CHEST 1V 83789 C3 TIME OF STUDY: 06/02/2021 6:00 AM REASON FOR EXAM: S/P L THORACENTESIS COMPARISON: 1 day prior FINDINGS: AP view of the chest was obtained. Lungs: Patchy bilateral airspace opacitiesare present. Pleura: No pneumothorax. Small left pleural effusion. 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 The median sternotomy wires are in the expected configuration. . IMPRESSION: 1. Mild pulmonary edema and small left pleural effusion. at 0824 Reported and signed by: Gabo Toth MD CC: Noni Marquez MD Technologist: Rebecca Quinonez RT(R) Transcrpt Date/Tm/Trnsp: 06/02/2021 (823) [email or web address] Orig Print D/T: S: 06/02/2021 (827) [facility] NAME: KIP MARCH [id number] PHYS: [place] [address] : 1940 AGE: 81 SEX: M LOC: Z.350 A PHONE #: [phone] EXAM DATE: 06/02/2021 STATUS: ADM IN FAX #: [phone] RADIOLOGY NO: PAGE 1 Signed ReportGLUCOSE BEDSIDE [id number] 07:10:00 Test Item Value Reference Range Interpretation Comments GLUCOSE BEDSIDE TESTING (test code 109 MG/DL 60-99 H = GLUBED) GLUCOSE BEDSIDE [id number] 23:58:00 Test Item Value Reference Range Interpretation Comments GLUCOSE BEDSIDE TESTING (test code 189 MG/DL 60-99 H = GLUBED) - XR CHEST [id number] 20:42:00 [facility] : 1940 Sex: M Patient Name: KIP MARCH Unit No: [id number] EXAMS: CPT CODE: [id number] XR CHEST 1V 98123 EXAM: - XR CHEST 1V INDICATION: S/P L THORACENTESIS H62 TECHNIQUE: Frontal view of the chest. FINDINGS: Left pleural effusion appears to be decreased compared with the chest x-ray performed earlier the same day, now small. No pneumothorax seen. Unchanged pulmonary opacities. Cardiomediastinal silhouette and osseous structures appear unchanged. IMPRESSION: Decreased left pleural effusion. No pneumothorax seen. at 2041 Reported and signed by: Giovany Talamantes MD CC: Noni Marquez MD Technologist: Onelia Galloway RT(R) Transcrpt Date/Tm/Trnsp: 06/01/2021 (2041) Rose.[email or web address] Orig Print D/T: S: 06/01/2021 (2044) [facility] NAME: KIP MARCH [id number] PHYS: [place] [address] : 1940 AGE: 81 SEX: M LOC: Z.350 A PHONE #: [phone] EXAM DATE: 06/01/2021 STATUS: ADM IN FAX #: [phone] RADIOLOGY NO: PAGE 1 Signed ReportGLUCOSE BEDSIDE [id number] 20:28:00 Test Item Value Reference Range Interpretation Comments GLUCOSE BEDSIDE TESTING (test code 130 MG/DL 60-99 H = GLUBED) GLUCOSE BEDSIDE [id number] 19:15:00 Test Item Value Reference Range Interpretation Comments GLUCOSE BEDSIDE TESTING (test code = 71 MG/DL 60-99 N GLUBED) GLUCOSE BEDSIDE [id number] 16:53:00 Test Item Value Reference Range Interpretation Comments GLUCOSE BEDSIDE TESTING (test code = 97 MG/DL 60-99 N GLUBED) COVID 19 Asymptomatic IH [id number] 16:20:00 Test Item Value Reference Range Interpretation Comments COVID 19 NEGATIVE Negative "Negative resul ts from Asymptomatic IH AG patients with symptom (test code = onset beyondfiv e days, COVNONPUIAG) should be sharon delores as presumptive, andconfirmation with a molecular assay , if necessary forpa tient management may be performed. Nega tive results do notr ule out COVID-19 and sh ould not be used as the sole basisfor treatm ent or patient managem ent decisions, includinginfect ion control decisio ns. Negative result s should beconsidered in the context of a pa tients recent exposure s,history, and the presenc e of clinical signs and symptomsconsist ent with COVID-19.This t est detects both vi able andnon-viable S ARS-CoV and SARS CoV-2. Test performance dep endson the amount of virus (antigen) in the sample." Spec Comments: PRE-OPBASIC METABOLIC [id number] 16:06:00 Test Item Value Reference Range Interpretation Comments SODIUM (test code = 131 MMOL/L 137-145 L NA) POTASSIUM (test code = 3.6 MMOL/L 3.5-5.1 N K) CHLORIDE (test code = 94 MMOL/L 98-107 L CL) CARBON DIOXIDE (test 31 MMOL/L 22-30 H code = CO2) GLUCOSE (test code = 54 MG/DL 74-106 L GLU) BLOOD UREA NITROGEN 18 MG/DL 9-20 N (test code = BUN) GLOMERULAR FILTRATION > 60 Report ing units: RATE (test code = GFR) ml/mi n/1.73 m2 (Modified MDRD Formula)Referen ce Range: > or = 6 0 ml/min/1.73 m2 CREATININE (test code 1.10 MG/DL 0.66-1.25 N = CREAT) CALCIUM (test code = 8.8 MG/DL 8.4-10.2 N CA) PROTHROMBIN [id number] 16:04:00 Test Item Value Reference Range Interpretation Comments PROTHROMBIN TIME 14.8 SECONDS 9.5-12.7 H PATIENT (test code = PTP) INTERNATIONAL NORMAL 1.3 0.86-1.14 H The INR is to be RATIO (test code = used only for INR) monitoring oral anticoagulantth erap y. INDICATION I NR VALUE ---- ---- ---- -------1. Prophylaxis, de ep venous thrombos is, including hig h risk surgery. 2.0 - 3.0 2. Prophylaxis, de ep venous thrombos is, hip surgery, treatment for d eep venous thrombosis or pulmonary prevention of systemic emboli sm in patients wit h valvular heart disease, atrial fibrillation, tissue heart va lve, or acute myocar dial infarction. 2.0 - 3 .0 3. Mechanical prosthesis hear t valves, recurrent syste keny embolism. 3.0 - 4.5 PTT [id number] 16:04:00 Test Item Value Reference Range Interpretation Comments PTT ACTIVATED (test code = APTT) 34.6 SECONDS 25.1-36.5 CBC W/AUTO [id number] 15:53:00 Test Item Value Reference Range Interpretation Comments WHITE BLOOD CELL (test code = 6.3 K/MM3 3.8-9.8 N WBC) RED BLOOD CELL (test code = 3.72 M/MM3 3.95-5.67 L RBC) HEMOGLOBIN (test code = HGB) 9.9 G/DL 12.4-16.7 L HEMATOCRIT (test code = HCT) 30.4 % 35.9-49.5 L MEAN CELL VOLUME (test code = 82 fL 81.7-96.1 N MCV) MEAN CELL HGB (test code = MCH) 26.6 pg 27.6-33.2 L MEAN CELL HGB CONCETRATION 32.6 % 32.9-35.5 L (test code = MCHC) RED CELL DISTRIBUTION WIDTH 15.2 % 12.1-15.2 N (test code = RDW) PLATELET COUNT (test code = 327 K/MM3 129-368 N PLT) MEAN PLATELET VOLUME (test code 8.7 fl 7.4-10.4 N = MPV) NEUTROPHIL % (test code = NT%) 63.4 % 43-75 N IMMATURE GRANULOCYTE % (test 0.3 % 0.0-2.0 N code = IG%) LYMPHOCYTE % (test code = LY%) 20.6 % 14-44 N MONOCYTE % (test code = MO%) 12.1 % 4-13 N EOSINOPHIL % (test code = EO%) 3.0 % 0-6 N BASOPHIL % (test code = BA%) 0.6 % 0-2 N NUCLEATED RBC % (test code = 0.0 % 0-1.0 N NRBC%) NEUTROPHIL # (test code = NT#) 3.99 K/mm3 2.0-7.6 N IMMATURE GRANULOCYTE # (test 0.02 x10 3/uL 0-0.03 N code = IG#) LYMPHOCYTE # (test code = LY#) 1.30 K/mm3 1.0-3.8 N MONOCYTE # (test code = MO#) 0.76 K/mm3 0.1-0.8 N EOSINOPHIL # (test code = EO#) 0.19 K/mm3 0.0-0.2 N BASOPHIL # (test code = BA#) 0.04 K/mm3 0.0-0.2 N NUCLEATED RBC # (test code = 0.00 K/mm3 0.0-0.1 N NRBC#) - XR CHEST [id number] 13:00:00 [facility] : 1940 Sex: M Patient Name: KIP MARCH Unit No: [id number] EXAMS: CPT CODE: [id number] XR CHEST 1V 57775 EXAMINATION: - XR CHEST 1V. LOCATION: B2. HISTORY: PRE-OP. COMPARISON: Radiograph dated 05/28/2021. TECHNIQUE:Single AP view of the chest was obtained. FINDINGS: The left heart border is obscured. Median sternotomy wires are present. There is mild coarsening of interstitial markings. Large left pleural effusion is present, increased since prior exam. No acute osseous abnormality is identified. IMPRESSION: Large left pleural effusion, increasedsince prior exam. Mild coarsening of bilateral interstitial markings. at 1300 Reported and si gned by: Javad Mosquera MD CC: Noni Marquez MD Technologist: Deborah MARIE R Transcrpt Date/Tm/Trnsp: 06/01/2021 (1300) [email or web address].PR7 Orig Print D/T: S: 06/01/2021 (1303) [facility] NAME: KIP MARCH [id number] [address] PHYS: [place] [address] : 1940 AGE: 81 SEX: M LOC: Z.SRG PHONE #:[phone] EXAM DATE: 06/01/2021 STATUS: [facility] FA[place] #: [phone] RADIOLOGY NO: PAGE 1 Signed Report- XR CHEST 2 [id number] 16:44:00 [facility] : 1940 Sex: M Patient Name: KIP STOREY Unit No: [id number] EXAMS: CPT CODE: [id number] XR CHEST 2 V 91497 B2 EXAM: - XR CHEST 2 V HISTORY: SOB COMPARISON: 04/04/2021 FINDINGS: Median sternotomy wires again noted. Large left pleural effusion. Airspace infiltration the left lung base. The right lung is clear. No pneumothorax. The cardiac silhouette is within normal limits. No acute osseous abnormalities. IMPRESSION: Large left pleural effusion with passive atelectasisand/or pneumonia in the left lung base. Electronically Signed by Sang Dimas 05/28/2021 at 1644 Reported and signed by: Sang Patton MD CC: Noni Marquez MD Technologist: KAREL Reid, RT(R) Transcrpt Date/Tm/Trnsp: 05/28/2021 (1643) [email or web address] Orig Print D/T: S: 05/28/2021 (1647) [facility] NAME: KIP JUAREZ [id number] [address] PHYS: [place] [address] : 1940 AGE: 81 SEX: M LOC: GAGE PHONE #: [phone] EXAM DATE: 05/28/2021 STATUS: REG CLI FAX #: [phone] RADIOLOGY NO: PAGE 1 Signed ReportGLUCOSE BEDSIDE [id number] 06:29:00 Test Item Value Reference Range Interpretation Comments GLUCOSE BEDSIDE TESTING (test code 127 MG/DL 60-99 H = GLUBED) GLUCOSE BEDSIDE [id number] 20:00:00 Test Item Value Reference Range Interpretation Comments GLUCOSE BEDSIDE TESTING (test code 122 MG/DL 60-99 H = GLUBED) GLUCOSE BEDSIDE [id number] 16:28:00 Test Item Value Reference Range Interpretation Comments GLUCOSE BEDSIDE TESTING (test code 167 MG/DL 60-99 H = GLUBED) GLUCOSE BEDSIDE [id number] 11:44:00 Test Item Value Reference Range Interpretation Comments GLUCOSE BEDSIDE TESTING (test code 151 MG/DL 60-99 H = GLUBED) GLUCOSE BEDSIDE [id number] 06:22:00 Test Item Value Reference Range Interpretation Comments GLUCOSE BEDSIDE TESTING (test code 122 MG/DL 60-99 H = GLUBED) PROTHROMBIN [id number] 05:23:00 Test Item Value Reference Range Interpretation Comments PROTHROMBIN TIME 31.2 SECONDS 9.5-12.7 H PATIENT (test code = PTP) INTERNATIONAL NORMAL 2.8 0.86-1.14 H The INR is to be RATIO (test code = used only for INR) monitoring oral anticoagulantth erap y. INDICATION I NR VALUE ---- ---- ---- -------1. Prophylaxis, de ep venous thrombos is, including hig h risk surgery. 2.0 - 3.0 2. Prophylaxis, de ep venous thrombos is, hip surgery, treatment for d eep venous thrombosis or pulmonary prevention of systemic emboli sm in patients wit h valvular heart disease, atrial fibrillation, tissue heart va lve, or acute myocar dial infarction. 2.0 - 3 .0 3. Mechanical prosthesis hear t valves, recurrent syste keny embolism. 3.0 - 4.5 GLUCOSE BEDSIDE [id number] 19:43:00 Test Item Value Reference Range Interpretation Comments GLUCOSE BEDSIDE TESTING (test code 124 MG/DL 60-99 H = GLUBED) GLUCOSE BEDSIDE [id number] 15:51:00 Test Item Value Reference Range Interpretation Comments GLUCOSE BEDSIDE TESTING (test code 140 MG/DL 60-99 H = GLUBED) GLUCOSE BEDSIDE [id number] 11:46:00 Test Item Value Reference Range Interpretation Comments GLUCOSE BEDSIDE TESTING (test code 157 MG/DL 60-99 H = GLUBED) GLUCOSE BEDSIDE [id number] 06:11:00 Test Item Value Reference Range Interpretation Comments GLUCOSE BEDSIDE TESTING (test code 106 MG/DL 60-99 H = GLUBED) PROTHROMBIN [id number] 05:38:00 Test Item Value Reference Range Interpretation Comments PROTHROMBIN TIME 36.8 SECONDS 9.5-12.7 H PATIENT (test code = PTP) INTERNATIONAL NORMAL 3.3 0.86-1.14 H The INR is to be RATIO (test code = used only for INR) monitoring oral anticoagulantth erap y. INDICATION I NR VALUE ---- ---- ---- -------1. Prophylaxis, de ep venous thrombos is, including hig h risk surgery. 2.0 - 3.0 2. Prophylaxis, de ep venous thrombos is, hip surgery, treatment for d eep venous thrombosis or pulmonary prevention of systemic emboli sm in patients wit h valvular heart disease, atrial fibrillation, tissue heart va lve, or acute myocar dial infarction. 2.0 - 3 .0 3. Mechanical prosthesis hear t valves, recurrent syste keny embolism. 3.0 - 4.5 GLUCOSE BEDSIDE [id number] 20:36:00 Test Item Value Reference Range Interpretation Comments GLUCOSE BEDSIDE TESTING (test code 115 MG/DL 60-99 H = GLUBED) GLUCOSE BEDSIDE [id number] 16:42:00 Test Item Value Reference Range Interpretation Comments GLUCOSE BEDSIDE TESTING (test code 156 MG/DL 60-99 H = GLUBED) GLUCOSE BEDSIDE [id number] 11:49:00 Test Item Value Reference Range Interpretation Comments GLUCOSE BEDSIDE TESTING (test code 145 MG/DL 60-99 H = GLUBED) GLUCOSE BEDSIDE [id number] 07:15:00 Test Item Value Reference Range Interpretation Comments GLUCOSE BEDSIDE TESTING (test code 120 MG/DL 60-99 H = GLUBED) BASIC METABOLIC [id number] 06:10:00 Test Item Value Reference Range Interpretation Comments SODIUM (test code = 136 MMOL/L 137-145 L NA) POTASSIUM (test code = 3.8 MMOL/L 3.5-5.1 N K) CHLORIDE (test code = 101 MMOL/L 98-107 N CL) CARBON DIOXIDE (test 29 MMOL/L 22-30 N code = CO2) GLUCOSE (test code = 110 MG/DL 74-106 H GLU) BLOOD UREA NITROGEN 13 MG/DL 9-20 N (test code = BUN) GLOMERULAR FILTRATION > 60 Report ing units: RATE (test code = GFR) ml/mi n/1.73 m2 (Modified MDRD Formula)Referen ce Range: > or = 6 0 ml/min/1.73 m2 CREATININE (test code 1.10 MG/DL 0.66-1.25 N = CREAT) CALCIUM (test code = 7.8 MG/DL 8.4-10.2 L CA) PROTHROMBIN [id number] 05:55:00 Test Item Value Reference Range Interpretation Comments PROTHROMBIN TIME 44.9 SECONDS 9.5-12.7 HH CALLED TO Jarrell Martinez& PATIENT (test code = GABYBAC K ON PTP) 04/18/21 AT 055 5 BY Marie Trevino INTERNATIONAL NORMAL 4.0 0.86-1.14 HH The INR is to be RATIO (test code = used only for INR) monitoring oral anticoagulantth erap y. INDICATION I NR VALUE ---- ---- ---- -------1. Prophylaxis, de ep venous thrombos is, including hig h risk surgery. 2.0 - 3.0 2. Prophylaxis, de ep venous thrombos is, hip surgery, treatment for d eep venous thrombosis or pulmonary prevention of systemic emboli sm in patients wit h valvular heart disease, atrial fibrillation, tissue heart va lve, or acute myocar dial infarction. 2.0 - 3 .0 3. Mechanical prosthesis hear t valves, recurrent syste keny embolism. 3.0 - 4.5 CBC W/AUTO [id number] 05:43:00 Test Item Value Reference Range Interpretation Comments WHITE BLOOD CELL (test code = 7.3 K/MM3 3.8-9.8 N WBC) RED BLOOD CELL (test code = 3.17 M/MM3 3.95-5.67 L RBC) HEMOGLOBIN (test code = HGB) 8.9 G/DL 12.4-16.7 L HEMATOCRIT (test code = HCT) 28.0 % 35.9-49.5 L MEAN CELL VOLUME (test code = 88 fL 81.7-96.1 N MCV) MEAN CELL HGB (test code = MCH) 28.1 pg 27.6-33.2 N MEAN CELL HGB CONCETRATION 31.8 % 32.9-35.5 L (test code = MCHC) RED CELL DISTRIBUTION WIDTH 15.5 % 12.1-15.2 H (test code = RDW) PLATELET COUNT (test code = 450 K/MM3 129-368 H PLT) MEAN PLATELET VOLUME (test code 9.2 fl 7.4-10.4 N = MPV) NEUTROPHIL % (test code = NT%) 57.3 % 43-75 N IMMATURE GRANULOCYTE % (test 0.6 % 0.0-2.0 N code = IG%) LYMPHOCYTE % (test code = LY%) 20.2 % 14-44 N MONOCYTE % (test code = MO%) 15.3 % 4-13 H EOSINOPHIL % (test code = EO%) 5.9 % 0-6 N BASOPHIL % (test code = BA%) 0.7 % 0-2 N NUCLEATED RBC % (test code = 0.0 % 0-1.0 N NRBC%) NEUTROPHIL # (test code = NT#) 4.17 K/mm3 2.0-7.6 N IMMATURE GRANULOCYTE # (test 0.04 x10 3/uL 0-0.03 H code = IG#) LYMPHOCYTE # (test code = LY#) 1.47 K/mm3 1.0-3.8 N MONOCYTE # (test code = MO#) 1.11 K/mm3 0.1-0.8 H EOSINOPHIL # (test code = EO#) 0.43 K/mm3 0.0-0.2 H BASOPHIL # (test code = BA#) 0.05 K/mm3 0.0-0.2 N NUCLEATED RBC # (test code = 0.00 K/mm3 0.0-0.1 N NRBC#) GLUCOSE BEDSIDE [id number] 20:20:00 Test Item Value Reference Range Interpretation Comments GLUCOSE BEDSIDE TESTING (test code 153 MG/DL 60-99 H = GLUBED) GLUCOSE BEDSIDE [id number] 16:50:00 Test Item Value Reference Range Interpretation Comments GLUCOSE BEDSIDE TESTING (test code 143 MG/DL 60-99 H = GLUBED) GLUCOSE BEDSIDE [id number] 10:54:00 Test Item Value Reference Range Interpretation Comments GLUCOSE BEDSIDE TESTING (test code 158 MG/DL 60-99 H = GLUBED) GLUCOSE BEDSIDE [id number] 06:13:00 Test Item Value Reference Range Interpretation Comments GLUCOSE BEDSIDE TESTING (test code 113 MG/DL 60-99 H = GLUBED) PROTHROMBIN [id number] 05:35:00 Test Item Value Reference Range Interpretation Comments PROTHROMBIN TIME 34.3 SECONDS 9.5-12.7 H PATIENT (test code = PTP) INTERNATIONAL NORMAL 3.1 0.86-1.14 H The INR is to be RATIO (test code = used only for INR) monitoring oral anticoagulantth erap y. INDICATION I NR VALUE ---- ---- ---- -------1. Prophylaxis, de ep venous thrombos is, including hig h risk surgery. 2.0 - 3.0 2. Prophylaxis, de ep venous thrombos is, hip surgery, treatment for d eep venous thrombosis or pulmonary prevention of systemic emboli sm in patients wit h valvular heart disease, atrial fibrillation, tissue heart va lve, or acute myocar dial infarction. 2.0 - 3 .0 3. Mechanical prosthesis hear t valves, recurrent syste keny embolism. 3.0 - 4.5 GLUCOSE BEDSIDE [id number] 19:54:00 Test Item Value Reference Range Interpretation Comments GLUCOSE BEDSIDE TESTING (test code 126 MG/DL 60-99 H = GLUBED) GLUCOSE BEDSIDE [id number] 16:58:00 Test Item Value Reference Range Interpretation Comments GLUCOSE BEDSIDE TESTING (test code 141 MG/DL 60-99 H = GLUBED) GLUCOSE BEDSIDE [id number] 12:09:00 Test Item Value Reference Range Interpretation Comments GLUCOSE BEDSIDE TESTING (test code 184 MG/DL 60-99 H = GLUBED) GLUCOSE BEDSIDE [id number] 05:59:00 Test Item Value Reference Range Interpretation Comments GLUCOSE BEDSIDE TESTING (test code = 99 MG/DL 60-99 N GLUBED) PROTHROMBIN [id number] 05:25:00 Test Item Value Reference Range Interpretation Comments PROTHROMBIN TIME 29.7 SECONDS 9.5-12.7 H PATIENT (test code = PTP) INTERNATIONAL NORMAL 2.7 0.86-1.14 H The INR is to be RATIO (test code = used only for INR) monitoring oral anticoagulantth erap y. INDICATION I NR VALUE ---- ---- ---- -------1. Prophylaxis, de ep venous thrombos is, including hig h risk surgery. 2.0 - 3.0 2. Prophylaxis, de ep venous thrombos is, hip surgery, treatment for d eep venous thrombosis or pulmonary prevention of systemic emboli sm in patients wit h valvular heart disease, atrial fibrillation, tissue heart va lve, or acute myocar dial infarction. 2.0 - 3 .0 3. Mechanical prosthesis hear t valves, recurrent syste keny embolism. 3.0 - 4.5 Comments to [employer]: YGLUCOSE BEDSIDE [id number] 19:46:00 Test Item Value Reference Range Interpretation Comments GLUCOSE BEDSIDE TESTING (test code 140 MG/DL 60-99 H = GLUBED) GLUCOSE BEDSIDE [id number] 16:59:00 Test Item Value Reference Range Interpretation Comments GLUCOSE BEDSIDE TESTING (test code 173 MG/DL 60-99 H = GLUBED) GLUCOSE BEDSIDE [id number] 11:34:00 Test Item Value Reference Range Interpretation Comments GLUCOSE BEDSIDE TESTING (test code 150 MG/DL 60-99 H = GLUBED) PROTHROMBIN [id number] 05:57:00 Test Item Value Reference Range Interpretation Comments PROTHROMBIN TIME 25.2 SECONDS 9.5-12.7 H PATIENT (test code = PTP) INTERNATIONAL NORMAL 2.3 0.86-1.14 H The INR is to be RATIO (test code = used only for INR) monitoring oral anticoagulantth erap y. INDICATION I NR VALUE ---- ---- ---- -------1. Prophylaxis, de ep venous thrombos is, including hig h risk surgery. 2.0 - 3.0 2. Prophylaxis, de ep venous thrombos is, hip surgery, treatment for d eep venous thrombosis or pulmonary prevention of systemic emboli sm in patients wit h valvular heart disease, atrial fibrillation, tissue heart va lve, or acute myocar dial infarction. 2.0 - 3 .0 3. Mechanical prosthesis hear t valves, recurrent syste keny embolism. 3.0 - 4.5 GLUCOSE BEDSIDE [id number] 05:48:00 Test Item Value Reference Range Interpretation Comments GLUCOSE BEDSIDE TESTING (test code = 87 MG/DL 60-99 N GLUBED) GLUCOSE BEDSIDE [id number] 20:42:00 Test Item Value Reference Range Interpretation Comments GLUCOSE BEDSIDE TESTING (test code = 95 MG/DL 60-99 N GLUBED) GLUCOSE BEDSIDE [id number] 16:22:00 Test Item Value Reference Range Interpretation Comments GLUCOSE BEDSIDE TESTING (test code 110 MG/DL 60-99 H = GLUBED) GLUCOSE BEDSIDE [id number] 11:23:00 Test Item Value Reference Range Interpretation Comments GLUCOSE BEDSIDE TESTING (test code 101 MG/DL 60-99 H = GLUBED) GLUCOSE BEDSIDE [id number] 06:34:00 Test Item Value Reference Range Interpretation Comments GLUCOSE BEDSIDE TESTING (test code = 66 MG/DL 60-99 N GLUBED) PROTHROMBIN [id number] 05:54:00 Test Item Value Reference Range Interpretation Comments PROTHROMBIN TIME 20.1 SECONDS 9.5-12.7 H PATIENT (test code = PTP) INTERNATIONAL NORMAL 1.8 0.86-1.14 H The INR is to be RATIO (test code = used only for INR) monitoring oral anticoagulantth erap y. INDICATION I NR VALUE ---- ---- ---- -------1. Prophylaxis, de ep venous thrombos is, including hig h risk surgery. 2.0 - 3.0 2. Prophylaxis, de ep venous thrombos is, hip surgery, treatment for d eep venous thrombosis or pulmonary prevention of systemic emboli sm in patients wit h valvular heart disease, atrial fibrillation, tissue heart va lve, or acute myocar dial infarction. 2.0 - 3 .0 3. Mechanical prosthesis hear t valves, recurrent syste keny embolism. 3.0 - 4.5 BASIC METABOLIC [id number] 05:45:00 Test Item Value Reference Range Interpretation Comments SODIUM (test code = 136 MMOL/L 137-145 L NA) POTASSIUM (test code = 3.7 MMOL/L 3.5-5.1 N K) CHLORIDE (test code = 103 MMOL/L 98-107 N CL) CARBON DIOXIDE (test 26 MMOL/L 22-30 N code = CO2) ANION GAP (test code = 11 MMOL/L 14-24 L GAP) GLUCOSE (test code = 56 MG/DL 74-106 L GLU) BLOOD UREA NITROGEN 13 MG/DL 9-20 N (test code = BUN) GLOMERULAR FILTRATION 58 Report ing units: RATE (test code = GFR) ml/mi n/1.73 m2 (Modified MDRD Formula)Referen ce Range: > or = 6 0 ml/min/1.73 m2 CREATININE (test code 1.20 MG/DL 0.66-1.25 N = CREAT) CALCIUM (test code = 8.0 MG/DL 8.4-10.2 L CA) CBC W/AUTO [id number] 05:36:00 Test Item Value Reference Range Interpretation Comments WHITE BLOOD CELL (test code = 9.2 K/MM3 3.8-9.8 N WBC) RED BLOOD CELL (test code = 3.08 M/MM3 3.95-5.67 L RBC) HEMOGLOBIN (test code = HGB) 8.6 G/DL 12.4-16.7 L HEMATOCRIT (test code = HCT) 27.2 % 35.9-49.5 L MEAN CELL VOLUME (test code = 88 fL 81.7-96.1 N MCV) MEAN CELL HGB (test code = MCH) 27.9 pg 27.6-33.2 N MEAN CELL HGB CONCETRATION 31.6 % 32.9-35.5 L (test code = MCHC) RED CELL DISTRIBUTION WIDTH 15.8 % 12.1-15.2 H (test code = RDW) PLATELET COUNT (test code = 466 K/MM3 129-368 H PLT) MEAN PLATELET VOLUME (test code 9.3 fl 7.4-10.4 N = MPV) NEUTROPHIL % (test code = NT%) 65.7 % 43-75 N IMMATURE GRANULOCYTE % (test 1.1 % 0.0-2.0 N code = IG%) LYMPHOCYTE % (test code = LY%) 16.4 % 14-44 N MONOCYTE % (test code = MO%) 12.7 % 4-13 N EOSINOPHIL % (test code = EO%) 3.7 % 0-6 N BASOPHIL % (test code = BA%) 0.4 % 0-2 N NUCLEATED RBC % (test code = 0.0 % 0-1.0 N NRBC%) NEUTROPHIL # (test code = NT#) 6.04 K/mm3 2.0-7.6 N IMMATURE GRANULOCYTE # (test 0.10 x10 3/uL 0-0.03 H code = IG#) LYMPHOCYTE # (test code = LY#) 1.51 K/mm3 1.0-3.8 N MONOCYTE # (test code = MO#) 1.17 K/mm3 0.1-0.8 H EOSINOPHIL # (test code = EO#) 0.34 K/mm3 0.0-0.2 H BASOPHIL # (test code = BA#) 0.04 K/mm3 0.0-0.2 N NUCLEATED RBC # (test code = 0.00 K/mm3 0.0-0.1 N NRBC#) GLUCOSE BEDSIDE [id number] 19:46:00 Test Item Value Reference Range Interpretation Comments GLUCOSE BEDSIDE TESTING (test 70 MG/DL 60-99 N Notified Nurse~ code = GLUBED) GLUCOSE BEDSIDE [id number] 15:58:00 Test Item Value Reference Range Interpretation Comments GLUCOSE BEDSIDE TESTING (test 84 MG/DL 60-99 N Notified Nurse~ code = GLUBED) GLUCOSE BEDSIDE [id number] 11:58:00 Test Item Value Reference Range Interpretation Comments GLUCOSE BEDSIDE TESTING (test code = 79 MG/DL 60-99 N GLUBED) GLUCOSE BEDSIDE [id number] 06:24:00 Test Item Value Reference Range Interpretation Comments GLUCOSE BEDSIDE TESTING (test code = 70 MG/DL 60-99 N GLUBED) PROTHROMBIN [id number] 04:18:00 Test Item Value Reference Range Interpretation Comments PROTHROMBIN TIME 17.8 SECONDS 9.5-12.7 H PATIENT (test code = PTP) INTERNATIONAL NORMAL 1.6 0.86-1.14 H The INR is to be RATIO (test code = used only for INR) monitoring oral anticoagulantth erap y. INDICATION I NR VALUE ---- ---- ---- -------1. Prophylaxis, de ep venous thrombos is, including hig h risk surgery. 2.0 - 3.0 2. Prophylaxis, de ep venous thrombos is, hip surgery, treatment for d eep venous thrombosis or pulmonary prevention of systemic emboli sm in patients wit h valvular heart disease, atrial fibrillation, tissue heart va lve, or acute myocar dial infarction. 2.0 - 3 .0 3. Mechanical prosthesis hear t valves, recurrent syste keny embolism. 3.0 - 4.5 GLUCOSE BEDSIDE [id number] 20:30:00 Test Item Value Reference Range Interpretation Comments GLUCOSE BEDSIDE TESTING (test code = 73 MG/DL 60-99 N GLUBED) GLUCOSE BEDSIDE [id number] 16:04:00 Test Item Value Reference Range Interpretation Comments GLUCOSE BEDSIDE TESTING (test code 138 MG/DL 60-99 H = GLUBED) GLUCOSE BEDSIDE [id number] 11:10:00 Test Item Value Reference Range Interpretation Comments GLUCOSE BEDSIDE TESTING (test code 141 MG/DL 60-99 H = GLUBED) PROTHROMBIN [id number] 10:19:00 Test Item Value Reference Range Interpretation Comments PROTHROMBIN TIME 15.5 SECONDS 9.5-12.7 H PATIENT (test code = PTP) INTERNATIONAL NORMAL 1.4 0.86-1.14 H The INR is to be RATIO (test code = used only for INR) monitoring oral anticoagulantth erap y. INDICATION I NR VALUE ---- ---- ---- -------1. Prophylaxis, de ep venous thrombos is, including hig h risk surgery. 2.0 - 3.0 2. Prophylaxis, de ep venous thrombos is, hip surgery, treatment for d eep venous thrombosis or pulmonary prevention of systemic emboli sm in patients wit h valvular heart disease, atrial fibrillation, tissue heart va lve, or acute myocar dial infarction. 2.0 - 3 .0 3. Mechanical prosthesis hear t valves, recurrent syste keny embolism. 3.0 - 4.5 GLUCOSE BEDSIDE [id number] 06:29:00 Test Item Value Reference Range Interpretation Comments GLUCOSE BEDSIDE TESTING (test code 106 MG/DL 60-99 H = GLUBED) GLUCOSE BEDSIDE [id number] 20:59:00 Test Item Value Reference Range Interpretation Comments GLUCOSE BEDSIDE TESTING (test code 129 MG/DL 60-99 H = GLUBED) GLUCOSE BEDSIDE [id number] 16:08:00 Test Item Value Reference Range Interpretation Comments GLUCOSE BEDSIDE TESTING (test code 138 MG/DL 60-99 H = GLUBED) GLUCOSE BEDSIDE [id number] 12:00:00 Test Item Value Reference Range Interpretation Comments GLUCOSE BEDSIDE TESTING (test code 165 MG/DL 60-99 H = GLUBED) GLUCOSE BEDSIDE [id number] 06:00:00 Test Item Value Reference Range Interpretation Comments GLUCOSE BEDSIDE TESTING (test code 135 MG/DL 60-99 H = GLUBED) PROTHROMBIN [id number] 05:06:00 Test Item Value Reference Range Interpretation Comments PROTHROMBIN TIME 14.3 SECONDS 9.5-12.7 H PATIENT (test code = PTP) INTERNATIONAL NORMAL 1.3 0.86-1.14 H The INR is to be RATIO (test code = used only for INR) monitoring oral anticoagulantth erap y. INDICATION I NR VALUE ---- ---- ---- -------1. Prophylaxis, de ep venous thrombos is, including hig h risk surgery. 2.0 - 3.0 2. Prophylaxis, de ep venous thrombos is, hip surgery, treatment for d eep venous thrombosis or pulmonary prevention of systemic emboli sm in patients wit h valvular heart disease, atrial fibrillation, tissue heart va lve, or acute myocar dial infarction. 2.0 - 3 .0 3. Mechanical prosthesis hear t valves, recurrent syste keny embolism. 3.0 - 4.5 GLUCOSE BEDSIDE [id number] 22:19:00 Test Item Value Reference Range Interpretation Comments GLUCOSE BEDSIDE TESTING (test code 109 MG/DL 60-99 H = GLUBED) GLUCOSE BEDSIDE [id number] 17:50:00 Test Item Value Reference Range Interpretation Comments GLUCOSE BEDSIDE TESTING (test code 181 MG/DL 60-99 H = GLUBED) COVID 19 Asymptomatic IH [id number] 16:07:00 Test Item Value Reference Range Interpretation Comments COVID 19 NEGATIVE Negative "Negative resul ts from Asymptomatic IH AG patients with symptom (test code = onset beyondfiv e days, COVNONPUIAG) should be sharon delores as presumptive, andconfirmation with a molecular assay , if necessary forpa tient management may be performed. Nega tive results do notr ule out COVID-19 and sh ould not be used as the sole basisfor treatm ent or patient managem ent decisions, includinginfect ion control decisio ns. Negative result s should beconsidered in the context of a pa tients recent exposure s,history, and the presenc e of clinical signs and symptomsconsist ent with COVID-19.This t est detects both vi able andnon-viable S ARS-CoV and SARS CoV-2. Test performance dep endson the amount of virus (antigen) in the sample." GLUCOSE BEDSIDE [id number] 12:31:00 Test Item Value Reference Range Interpretation Comments GLUCOSE BEDSIDE TESTING (test code 158 MG/DL 60-99 H = GLUBED) GLUCOSE BEDSIDE [id number] 08:05:00 Test Item Value Reference Range Interpretation Comments GLUCOSE BEDSIDE TESTING (test code 150 MG/DL 60-99 H = GLUBED) PROTHROMBIN [id number] 07:45:00 Test Item Value Reference Range Interpretation Comments PROTHROMBIN TIME 13.8 SECONDS 9.5-12.7 H PATIENT (test code = PTP) INTERNATIONAL NORMAL 1.2 0.86-1.14 H The INR is to be RATIO (test code = used only for INR) monitoring oral anticoagulantth erap y. INDICATION I NR VALUE ---- ---- ---- -------1. Prophylaxis, de ep venous thrombos is, including hig h risk surgery. 2.0 - 3.0 2. Prophylaxis, de ep venous thrombos is, hip surgery, treatment for d eep venous thrombosis or pulmonary prevention of systemic emboli sm in patients wit h valvular heart disease, atrial fibrillation, tissue heart va lve, or acute myocar dial infarction. 2.0 - 3 .0 3. Mechanical prosthesis hear t valves, recurrent syste keny embolism. 3.0 - 4.5 GLUCOSE BEDSIDE [id number] 20:12:00 Test Item Value Reference Range Interpretation Comments GLUCOSE BEDSIDE TESTING (test code 169 MG/DL 60-99 H = GLUBED) GLUCOSE BEDSIDE [id number] 17:34:00 Test Item Value Reference Range Interpretation Comments GLUCOSE BEDSIDE TESTING (test code 163 MG/DL 60-99 H = GLUBED) GLUCOSE BEDSIDE [id number] 16:43:00 Test Item Value Reference Range Interpretation Comments GLUCOSE BEDSIDE TESTING (test code 148 MG/DL 60-99 H = GLUBED) GLUCOSE BEDSIDE [id number] 07:51:00 Test Item Value Reference Range Interpretation Comments GLUCOSE BEDSIDE TESTING (test code 160 MG/DL 60-99 H = GLUBED) BASIC METABOLIC [id number] 05:38:00 Test Item Value Reference Range Interpretation Comments SODIUM (test code = 134 MMOL/L 137-145 L NA) POTASSIUM (test code = 4.0 MMOL/L 3.5-5.1 N K) CHLORIDE (test code = 102 MMOL/L 98-107 N CL) CARBON DIOXIDE (test 28 MMOL/L 22-30 N code = CO2) ANION GAP (test code = 8 MMOL/L 14-24 L GAP) GLUCOSE (test code = 126 MG/DL 74-106 H GLU) BLOOD UREA NITROGEN 17 MG/DL 9-20 N (test code = BUN) GLOMERULAR FILTRATION > 60 Report ing units: RATE (test code = GFR) ml/mi n/1.73 m2 (Modified MDRD Formula)Referen ce Range: > or = 6 0 ml/min/1.73 m2 CREATININE (test code 1.00 MG/DL 0.66-1.25 N = CREAT) CALCIUM (test code = 7.9 MG/DL 8.4-10.2 L CA) CBC W/AUTO [id number] 05:13:00 Test Item Value Reference Range Interpretation Comments WHITE BLOOD CELL (test code = 10.0 K/MM3 3.8-9.8 H WBC) RED BLOOD CELL (test code = 2.88 M/MM3 3.95-5.67 L RBC) HEMOGLOBIN (test code = HGB) 8.1 G/DL 12.4-16.7 L HEMATOCRIT (test code = HCT) 25.4 % 35.9-49.5 L MEAN CELL VOLUME (test code = 88 fL 81.7-96.1 N MCV) MEAN CELL HGB (test code = MCH) 28.1 pg 27.6-33.2 N MEAN CELL HGB CONCETRATION 31.9 % 32.9-35.5 L (test code = MCHC) RED CELL DISTRIBUTION WIDTH 15.0 % 12.1-15.2 N (test code = RDW) PLATELET COUNT (test code = 404 K/MM3 129-368 H PLT) MEAN PLATELET VOLUME (test code 9.5 fl 7.4-10.4 N = MPV) NEUTROPHIL % (test code = NT%) 60.9 % 43-75 N IMMATURE GRANULOCYTE % (test 3.5 % 0.0-2.0 H code = IG%) LYMPHOCYTE % (test code = LY%) 18.2 % 14-44 N MONOCYTE % (test code = MO%) 12.1 % 4-13 N EOSINOPHIL % (test code = EO%) 4.9 % 0-6 N BASOPHIL % (test code = BA%) 0.4 % 0-2 N NUCLEATED RBC % (test code = 0.0 % 0-1.0 N NRBC%) NEUTROPHIL # (test code = NT#) 6.10 K/mm3 2.0-7.6 N IMMATURE GRANULOCYTE # (test 0.35 x10 3/uL 0-0.03 H code = IG#) LYMPHOCYTE # (test code = LY#) 1.82 K/mm3 1.0-3.8 N MONOCYTE # (test code = MO#) 1.21 K/mm3 0.1-0.8 H EOSINOPHIL # (test code = EO#) 0.49 K/mm3 0.0-0.2 H BASOPHIL # (test code = BA#) 0.04 K/mm3 0.0-0.2 N NUCLEATED RBC # (test code = 0.00 K/mm3 0.0-0.1 N NRBC#) GLUCOSE BEDSIDE [id number] 20:31:00 Test Item Value Reference Range Interpretation Comments GLUCOSE BEDSIDE TESTING (test code 131 MG/DL 60-99 H = GLUBED) GLUCOSE BEDSIDE [id number] 17:41:00 Test Item Value Reference Range Interpretation Comments GLUCOSE BEDSIDE TESTING (test code 207 MG/DL 60-99 H = GLUBED) GLUCOSE BEDSIDE [id number] 11:29:00 Test Item Value Reference Range Interpretation Comments GLUCOSE BEDSIDE TESTING (test code 199 MG/DL 60-99 H = GLUBED) GLUCOSE BEDSIDE [id number] 08:34:00 Test Item Value Reference Range Interpretation Comments GLUCOSE BEDSIDE TESTING (test code 183 MG/DL 60-99 H = GLUBED) GLUCOSE BEDSIDE [id number] 20:33:00 Test Item Value Reference Range Interpretation Comments GLUCOSE BEDSIDE TESTING (test code 153 MG/DL 60-99 H = GLUBED) GLUCOSE BEDSIDE [id number] 16:33:00 Test Item Value Reference Range Interpretation Comments GLUCOSE BEDSIDE TESTING (test code 180 MG/DL 60-99 H = GLUBED) GLUCOSE BEDSIDE [id number] 12:12:00 Test Item Value Reference Range Interpretation Comments GLUCOSE BEDSIDE TESTING (test code 232 MG/DL 60-99 H = GLUBED) GLUCOSE BEDSIDE [id number] 07:35:00 Test Item Value Reference Range Interpretation Comments GLUCOSE BEDSIDE TESTING (test code 176 MG/DL 60-99 H = GLUBED) BASIC METABOLIC [id number] 05:52:00 Test Item Value Reference Range Interpretation Comments SODIUM (test code = 132 MMOL/L 137-145 L NA) POTASSIUM (test code = 4.0 MMOL/L 3.5-5.1 N K) CHLORIDE (test code = 101 MMOL/L 98-107 N CL) CARBON DIOXIDE (test 28 MMOL/L 22-30 N code = CO2) ANION GAP (test code = 7 MMOL/L 14-24 L GAP) GLUCOSE (test code = 122 MG/DL 74-106 H GLU) BLOOD UREA NITROGEN 21 MG/DL 9-20 H (test code = BUN) GLOMERULAR FILTRATION > 60 Report ing units: RATE (test code = GFR) ml/mi n/1.73 m2 (Modified MDRD Formula)Referen ce Range: > or = 6 0 ml/min/1.73 m2 CREATININE (test code 1.00 MG/DL 0.66-1.25 N = CREAT) CALCIUM (test code = 7.7 MG/DL 8.4-10.2 L CA) [id number] 05:52:00 Test Item Value Reference Range Interpretation Comments MAGNESIUM (test code = MAG) 2.1 MG/DL 1.6-2.3 N CBC W/AUTO [id number] 05:42:00 Test Item Value Reference Range Interpretation Comments WHITE BLOOD CELL (test code = 10.2 K/MM3 3.8-9.8 H WBC) RED BLOOD CELL (test code = 2.91 M/MM3 3.95-5.67 L RBC) HEMOGLOBIN (test code = HGB) 8.3 G/DL 12.4-16.7 L HEMATOCRIT (test code = HCT) 25.1 % 35.9-49.5 L MEAN CELL VOLUME (test code = 86 fL 81.7-96.1 N MCV) MEAN CELL HGB (test code = MCH) 28.5 pg 27.6-33.2 N MEAN CELL HGB CONCETRATION 33.1 % 32.9-35.5 N (test code = MCHC) RED CELL DISTRIBUTION WIDTH 14.9 % 12.1-15.2 N (test code = RDW) PLATELET COUNT (test code = 349 K/MM3 129-368 PLT) MEAN PLATELET VOLUME (test code 9.8 fl 7.4-10.4 N = MPV) NEUTROPHIL % (test code = NT%) 60.4 % 43-75 N IMMATURE GRANULOCYTE % (test 4.6 % 0.0-2.0 H code = IG%) LYMPHOCYTE % (test code = LY%) 17.4 % 14-44 N MONOCYTE % (test code = MO%) 12.6 % 4-13 N EOSINOPHIL % (test code = EO%) 4.5 % 0-6 N BASOPHIL % (test code = BA%) 0.5 % 0-2 N NUCLEATED RBC % (test code = 0.0 % 0-1.0 N NRBC%) NEUTROPHIL # (test code = NT#) 6.14 K/mm3 2.0-7.6 N IMMATURE GRANULOCYTE # (test 0.47 x10 3/uL 0-0.03 H code = IG#) LYMPHOCYTE # (test code = LY#) 1.77 K/mm3 1.0-3.8 N MONOCYTE # (test code = MO#) 1.28 K/mm3 0.1-0.8 H EOSINOPHIL # (test code = EO#) 0.46 K/mm3 0.0-0.2 H BASOPHIL # (test code = BA#) 0.05 K/mm3 0.0-0.2 N NUCLEATED RBC # (test code = 0.00 K/mm3 0.0-0.1 N NRBC#) GLUCOSE BEDSIDE [id number] 21:00:00 Test Item Value Reference Range Interpretation Comments GLUCOSE BEDSIDE TESTING (test code 193 MG/DL 60-99 H = GLUBED) GLUCOSE BEDSIDE [id number] 17:25:00 Test Item Value Reference Range Interpretation Comments GLUCOSE BEDSIDE TESTING (test code 141 MG/DL 60-99 H = GLUBED) GLUCOSE BEDSIDE [id number] 12:25:00 Test Item Value Reference Range Interpretation Comments GLUCOSE BEDSIDE TESTING (test code 172 MG/DL 60-99 H = GLUBED) GLUCOSE BEDSIDE [id number] 07:16:00 Test Item Value Reference Range Interpretation Comments GLUCOSE BEDSIDE TESTING (test code 169 MG/DL 60-99 H = GLUBED) [id number] 04:58:00 Test Item Value Reference Range Interpretation Comments DIGOXIN (test code = DIG) 0.7 NG/ML 0.8-2.0 L COMPREHENSIVE METABOLIC [id number] 04:54:00 Test Item Value Reference Range Interpretation Comments SODIUM (test code 132 MMOL/L 137-145 L = NA) POTASSIUM (test 3.6 MMOL/L 3.5-5.1 N code = K) CHLORIDE (test 100 MMOL/L 98-107 N code = CL) CARBON DIOXIDE 28 MMOL/L 22-30 N (test code = CO2) ANION GAP (test 8 MMOL/L 14-24 L code = GAP) GLUCOSE (test 139 MG/DL 74-106 H code = GLU) BLOOD UREA 22 MG/DL 9-20 H NITROGEN (test code = BUN) GLOMERULAR > 60 Reporting units : FILTRATION RATE ml/min/1.73 m2 (Modified (test code = GFR) MDRD Formu la)Reference Range: > or = 6 0 ml/min/1.73 m2 CREATININE (test 1.00 MG/DL 0.66-1.25 N code = CREAT) TOTAL PROTEIN 5.3 G/DL 6.2-7.6 L [facility] Clinical Diagnostic (test code = has made us monique re of PROT) newinformation regarding the potential i nterference ofEltrombopag (a bone marrow stimulan t used to treatthrombocyt onmenia and aplastic anemia ) with specific assays on the ActX 5600 of which Total Protein is one of thoseassays per formed in our lab.Interfe rence testing perform ed at [facility] determined that Eltrombopag does interfere with Vitros Total Protein asfollowsEltrom bopag Interference fo r Vitros Product Total Protein:======= Eltrombopag Max Observed A vg. BiasConcentrati on Concentration Concentration== ==== 2.5 mg/dl 6.0 g/dl +0.41 +0.34 3.5 mg/dl 6.0 g/dl +0.50 +0.45 5 mg/dl 6.0 g/dl +0.73 +0.65 2.5 mg/dl 8.0 g/dl +0.44 +0.41 3.5 mg/dl 8.0 g/dl +0.55 +0.52 5 mg/dl 8.0 g/dl +0.86 +0.77 ALBUMIN (test 2.8 G/DL 3.5-5.0 L code = ALB) CALCIUM (test 7.8 MG/DL 8.4-10.2 L code = CA) BILIRUBIN TOTAL 1.1 MG/DL 0.2-1.3 Eltrombopag Interference (test code = for Vitros Prod uct TBil, BILT) BuBc: Assa y Eltrombopag Analyte/ Max Observed Avg. Bias Concentrati on Concentration Concentration== ====TBil 7mg/dl T Andrei/ 1.2mg/dl +0.23 mg.dl +0.20mg/dlBuBc 3.5mg/dl Bu/0.8mg/dl +0.25mg/dl +0 .24mg/dlBuBc 7 mg/dl Bu/14.2mg/dl +0.38mg/dl +0.25mg/dlBuBc 5mg/dl Bc/0mg/dl +0.25mg/dl +0 .15mg/dlBuBc 3.5mg/dl Bc/2.8mg/dl +0.25mg/dl +0.23mg/dl SGOT/AST (test 37 UNITS/L 17-59 code = AST) SGPT/ALT (test 52 UNITS/L 0-49 H code = ALT) ALKALINE 56 UNITS/L 38-126 PHOSPHATASE (test code = ALKP) CBC W/AUTO [id number] 04:51:00 Test Item Value Reference Range Interpretation Comments WHITE BLOOD CELL (test code = 9.2 K/MM3 3.8-9.8 N WBC) RED BLOOD CELL (test code = 2.93 M/MM3 3.95-5.67 L RBC) HEMOGLOBIN (test code = HGB) 8.4 G/DL 12.4-16.7 L HEMATOCRIT (test code = HCT) 25.1 % 35.9-49.5 L MEAN CELL VOLUME (test code = 86 fL 81.7-96.1 N MCV) MEAN CELL HGB (test code = MCH) 28.7 pg 27.6-33.2 N MEAN CELL HGB CONCETRATION 33.5 % 32.9-35.5 N (test code = MCHC) RED CELL DISTRIBUTION WIDTH 14.9 % 12.1-15.2 N (test code = RDW) PLATELET COUNT (test code = 280 K/MM3 129-368 PLT) MEAN PLATELET VOLUME (test code 9.9 fl 7.4-10.4 N = MPV) NEUTROPHIL % (test code = NT%) 57.5 % 43-75 N IMMATURE GRANULOCYTE % (test 4.6 % 0.0-2.0 H code = IG%) LYMPHOCYTE % (test code = LY%) 17.5 % 14-44 N MONOCYTE % (test code = MO%) 13.8 % 4-13 H EOSINOPHIL % (test code = EO%) 6.1 % 0-6 H BASOPHIL % (test code = BA%) 0.5 % 0-2 N NUCLEATED RBC % (test code = 0.2 % 0-1.0 N NRBC%) NEUTROPHIL # (test code = NT#) 5.29 K/mm3 2.0-7.6 N IMMATURE GRANULOCYTE # (test 0.42 x10 3/uL 0-0.03 H code = IG#) LYMPHOCYTE # (test code = LY#) 1.61 K/mm3 1.0-3.8 N MONOCYTE # (test code = MO#) 1.27 K/mm3 0.1-0.8 H EOSINOPHIL # (test code = EO#) 0.56 K/mm3 0.0-0.2 H BASOPHIL # (test code = BA#) 0.05 K/mm3 0.0-0.2 N NUCLEATED RBC # (test code = 0.02 K/mm3 0.0-0.1 N NRBC#) GLUCOSE BEDSIDE [id number] 23:43:00 Test Item Value Reference Range Interpretation Comments GLUCOSE BEDSIDE TESTING (test code 165 MG/DL 60-99 H = GLUBED) GLUCOSE BEDSIDE [id number] 17:32:00 Test Item Value Reference Range Interpretation Comments GLUCOSE BEDSIDE TESTING (test code 133 MG/DL 60-99 H = GLUBED) GLUCOSE BEDSIDE [id number] 17:24:00 Test Item Value Reference Range Interpretation Comments GLUCOSE BEDSIDE TESTING (test code 264 MG/DL 60-99 H = GLUBED) BASIC METABOLIC [id number] 09:21:00 Test Item Value Reference Range Interpretation Comments SODIUM (test code = 130 MMOL/L 137-145 L NA) POTASSIUM (test code = 3.7 MMOL/L 3.5-5.1 N K) CHLORIDE (test code = 98 MMOL/L 98-107 N CL) CARBON DIOXIDE (test 26 MMOL/L 22-30 N code = CO2) GLUCOSE (test code = 148 MG/DL 74-106 H GLU) BLOOD UREA NITROGEN 26 MG/DL 9-20 H (test code = BUN) GLOMERULAR FILTRATION > 60 Report ing units: RATE (test code = GFR) ml/mi n/1.73 m2 (Modified MDRD Formula)Referen ce Range: > or = 6 0 ml/min/1.73 m2 CREATININE (test code 1.00 MG/DL 0.66-1.25 N = CREAT) CALCIUM (test code = 7.5 MG/DL 8.4-10.2 L CA) HEPATIC FUNCTION [id number] 09:21:00 Test Item Value Reference Range Interpretation Comments TOTAL PROTEIN 5.2 G/DL 6.2-7.6 L [facility] Clinical Diagnostic (test code = has made us monique re of PROT) newinformation regarding the potential i nterference ofEltrombopag (a bone marrow stimulan t used to treatthrombocyt onmenia and aplastic anemia ) with specific assays on the Vitros 5600 of which Total Protein is one of thoseassays per formed in our lab.Interfe rence testing perform ed at [facility] determined that Eltrombopag does interfere with Vitros Total Protein asfollowsEltrom bopag Interference fo r Vitros Product Total Protein:======= Eltrombopag Max Observed A vg. BiasConcentrati on Concentration Concentration== ==== 2.5 mg/dl 6.0 g/dl +0.41 +0.34 3.5 mg/dl 6.0 g/dl +0.50 +0.45 5 mg/dl 6.0 g/dl +0.73 +0.65 2.5 mg/dl 8.0 g/dl +0.44 +0.41 3.5 mg/dl 8.0 g/dl +0.55 +0.52 5 mg/dl 8.0 g/dl +0.86 +0.77 ALBUMIN (test 2.9 G/DL 3.5-5.0 L code = ALB) BILIRUBIN TOTAL 0.7 MG/DL 0.2-1.3 N Eltrombopag Interference (test code = for Vitros Prod uct TBil, BILT) BuBc: Assa y Eltrombopag Analyte/ Max Observed Avg. Bias Concentrati on Concentration Concentration== ====TBil 7mg/dl T Andrei/ 1.2mg/dl +0.23 mg.dl +0.20mg/dlBuBc 3.5mg/dl Bu/0.8mg/dl +0.25mg/dl +0 .24mg/dlBuBc 7 mg/dl Bu/14.2mg/dl +0.38mg/dl +0.25mg/dlBuBc 5mg/dl Bc/0mg/dl +0.25mg/dl +0 .15mg/dlBuBc 3.5mg/dl Bc/2.8mg/dl +0.25mg/dl +0.23mg/dl BILIRUBIN DIRECT 0.0 MG/DL 0.0-0.3 N Eltrombopag Interference (test code = for Vitros Prod uct TBil, BILD) BuBc: Assa y Eltrombopag Analyte/ Max Observed Avg. Bias Concentrati on Concentration Concentration== ====TBil 7mg/dl T Andrei/ 1.2mg/dl +0.23 mg.dl +0.20mg/dlBuBc 3.5mg/dl Bu/0.8mg/dl +0.25mg/dl +0 .24mg/dlBuBc 7 mg/dl Bu/14.2mg/dl +0.38mg/dl +0.25mg/dlBuBc 5mg/dl Bc/0mg/dl +0.25mg/dl +0 .15mg/dlBuBc 3.5mg/dl Bc/2.8mg/dl +0.25mg/dl +0.23mg/dl SGOT/AST (test 48 UNITS/L 17-59 N code = AST) SGPT/ALT (test 51 UNITS/L 0-49 H code = ALT) ALKALINE 48 UNITS/L 38-126 N PHOSPHATASE (test code = ALKP) GLUCOSE BEDSIDE [id number] 07:58:00 Test Item Value Reference Range Interpretation Comments GLUCOSE BEDSIDE TESTING (test code 188 MG/DL 60-99 H = GLUBED) LACTIC [id number] 05:26:00 Test Item Value Reference Range Interpretation Comments LACTIC ACID (test code = LACT) 0.9 MMOL/L 0.7-2.1 N CBC W/AUTO [id number] 05:23:00 Test Item Value Reference Range Interpretation Comments WHITE BLOOD CELL (test code = 9.4 K/MM3 3.8-9.8 N WBC) RED BLOOD CELL (test code = 2.84 M/MM3 3.95-5.67 L RBC) HEMOGLOBIN (test code = HGB) 8.2 G/DL 12.4-16.7 L HEMATOCRIT (test code = HCT) 24.6 % 35.9-49.5 L MEAN CELL VOLUME (test code = 87 fL 81.7-96.1 N MCV) MEAN CELL HGB (test code = MCH) 28.9 pg 27.6-33.2 N MEAN CELL HGB CONCETRATION 33.3 % 32.9-35.5 N (test code = MCHC) RED CELL DISTRIBUTION WIDTH 14.9 % 12.1-15.2 N (test code = RDW) PLATELET COUNT (test code = 229 K/MM3 129-368 PLT) MEAN PLATELET VOLUME (test code 10.4 fl 7.4-10.4 N = MPV) NEUTROPHIL % (test code = NT%) 60.7 % 43-75 N IMMATURE GRANULOCYTE % (test 2.2 % 0.0-2.0 H code = IG%) LYMPHOCYTE % (test code = LY%) 19.6 % 14-44 N MONOCYTE % (test code = MO%) 14.0 % 4-13 H EOSINOPHIL % (test code = EO%) 3.0 % 0-6 N BASOPHIL % (test code = BA%) 0.5 % 0-2 N NUCLEATED RBC % (test code = 0.0 % 0-1.0 N NRBC%) NEUTROPHIL # (test code = NT#) 5.68 K/mm3 2.0-7.6 N IMMATURE GRANULOCYTE # (test 0.21 x10 3/uL 0-0.03 H code = IG#) LYMPHOCYTE # (test code = LY#) 1.84 K/mm3 1.0-3.8 N MONOCYTE # (test code = MO#) 1.31 K/mm3 0.1-0.8 H EOSINOPHIL # (test code = EO#) 0.28 K/mm3 0.0-0.2 H BASOPHIL # (test code = BA#) 0.05 K/mm3 0.0-0.2 N NUCLEATED RBC # (test code = 0.00 K/mm3 0.0-0.1 N NRBC#) GLUCOSE BEDSIDE [id number] 21:14:00 Test Item Value Reference Range Interpretation Comments GLUCOSE BEDSIDE TESTING (test code 178 MG/DL 60-99 H = GLUBED) GLUCOSE BEDSIDE [id number] 17:54:00 Test Item Value Reference Range Interpretation Comments GLUCOSE BEDSIDE TESTING (test code 184 MG/DL 60-99 H = GLUBED) GLUCOSE BEDSIDE [id number] 11:30:00 Test Item Value Reference Range Interpretation Comments GLUCOSE BEDSIDE TESTING (test code 211 MG/DL 60-99 H = GLUBED) - XR CHEST [id number] 08:20:00 [facility] 1940 Sex: M Patient Name: KIP MARCH Unit No: [id number] EXAMS: CPT CODE: [id number] XR CHEST 1V [id number] HISTORY: Status post CABG Comparison April 03, 2021 Location code: B2 FINDINGS: Frontal view of the chest demonstrates an enlarged cardiomediastinal silhouette, with central venous congestion. The trachea is midline. Mild layering left effusion with atelectasis. No pneumothorax. Right subclavian catheterin good position. The bones are intact. Median sternotomy wires. IMPRESSION:Mild cardiomegaly and central venous congestion with a layering left effusion and atelectasis at 0820 Reported and signed by: Glen Garay M.D. CC: Noni Marquez MD; Aisha Lucas MD Technologist: Araceli Patrick, RT(R) Transcrpt Date/Tm/Trnsp: 04/04/2021 (0820) Rose.[email or web address] Orig Print D/T: S: 04/04/2021 (0823) [facility] NAME: KIP MARCH [address] PHYS: [place] [address] : 1940 AGE: 81 SEX: M LOC: Z.SI02 A PHONE #: [phone] EXAM DATE: 04/04/2021 STATUS: ADM IN FAX #: [phone] RADIOLOGY NO: PAGE 1 Signed ReportGLUCOSE BEDSIDE [id number] 07:36:00 Test Item Value Reference Range Interpretation Comments GLUCOSE BEDSIDE TESTING (test code 176 MG/DL 60-99 H = GLUBED) GLUCOSE BEDSIDE [id number] 21:45:00 Test Item Value Reference Range Interpretation Comments GLUCOSE BEDSIDE TESTING (test code 184 MG/DL 60-99 H = GLUBED) GLUCOSE BEDSIDE [id number] 17:51:00 Test Item Value Reference Range Interpretation Comments GLUCOSE BEDSIDE TESTING (test code 159 MG/DL 60-99 H = GLUBED) - XR CHEST [id number] 13:23:00 [facility] : 1940 Sex: M Patient Name: KIP MARCH Unit No: [id number] EXAMS: CPT CODE: [id number] XR CHEST 1V [id number] EXAMINATION: - XR CHEST 1V. LOCATION: B2. HISTORY: CHEST TUBE REMOVAL. COMPARISON: Radiograph of same day at 0609 hours. TECHNIQUE: Single AP view of the chest was obtained. FINDINGS: Right-sided PICC line is unchanged in position. The heart is enlarged in size. Median sternotomy wires are present. There is a trace left apical pneumothorax. Mild bibasilar opacities are unchanged. No acute osseous abnormality is identified. IMPRESSION: Trace left apical pneumothorax. Mild bibasilar atelectasis, decreased on the right prior exam. Cardiomegaly. at 1323 Reported and signed by: Javad Mosquera MD CC: Noni Marquez MD; Aisha Lucas MD Technologist: Shelton Bhatt (RT) (R) Transcrpt Date/Tm/Trnsp: 04/03/2021 (1323) [email or web address] Orig Print D/T: S: 04/03/2021 (1326) [facility] NAME: KIP MARCH [address] PHYS: [place] [address] : 1940 AGE: 81 SEX: M LOC: Z.SI02 A PHONE #: [phone] EXAM DATE: 04/03/2021TATUS: ADM IN FAX #: [phone] RADIOLOGY NO: PAGE 1 Signed Report GLUCOSE BEDSIDE [id number] 12:15:00 Test Item Value Reference Range Interpretation Comments GLUCOSE BEDSIDE TESTING (test code 278 MG/DL 60-99 H = GLUBED) HGB [id number] 09:25:00 Test Item Value Reference Range Interpretation Comments HEMOGLOBIN (test code = HGB) 8.2 G/DL 12.4-16.7 L HEMATOCRIT (test code = HCT) 24.8 % 35.9-49.5 L [id number] 09:05:00 Test Item Value Reference Range Interpretation Comments POTASSIUM (test code = K) 4.3 MMOL/L 3.5-5.1 N [id number] 09:05:00 Test Item Value Reference Range Interpretation Comments CALCIUM (test code = CA) 7.8 MG/DL 8.4-10.2 L [id number] 09:05:00 Test Item Value Reference Range Interpretation Comments MAGNESIUM (test code = MAG) 2.4 MG/DL 1.6-2.3 H - XR CHEST [id number] 07:58:00 [facility] : 1940 Sex: M Patient Name: KIP MARCH Unit No: [id number] EXAMS: CPT CODE: [id number] XR CHEST 1V [id number] EXAMINATION: Frontal chest radiograph INDICATION: S/PCABG COMPARISON: Previous day LOCATION: S17 FINDINGS/ IMPRESSION: Subclavian catheter terminates at SVC. Unchanged enlarged cardiac silhouette. No significant change in mild bibasilar interstitial edema or pneumonia and trace left pleural effusion. No pneumothorax. at 0758 Reported and signed by: Kwame Calloway MD CC: Noni Marquez MD; Aisha Lucas MD Technologist: Miriam Herman Transcrpt Date/Tm/Trnsp: 04/03/2021 (0758) [email or web address] Orig Print D/T: S: 04/03/2021 (08) [facility] NAME: KIP MARCHER [id number] PHYS: [place] [address] : 1940 AGE: 81 SEX: M LOC: Z.SI02 A PHONE #: [phone] EXAM DATE: 04/03/2021 STATUS: ADM IN FAX #: [phone] RADIOLOGY NO: PAGE 1 Signed ReportGLUCOSE BEDSIDE [id number] 07:31:00 Test Item Value Reference Range Interpretation Comments GLUCOSE BEDSIDE TESTING (test code 258 MG/DL 60-99 H = GLUBED) [id number] 00:10:00 Test Item Value Reference Range Interpretation Comments POTASSIUM (test code = K) 4.3 MMOL/L 3.5-5.1 N [id number] 00:10:00 Test Item Value Reference Range Interpretation Comments CALCIUM (test code = CA) 7.4 MG/DL 8.4-10.2 L [id number] 00:10:00 Test Item Value Reference Range Interpretation Comments MAGNESIUM (test code = MAG) 2.4 MG/DL 1.6-2.3 H GLUCOSE BEDSIDE [id number] 20:35:00 Test Item Value Reference Range Interpretation Comments GLUCOSE BEDSIDE TESTING (test code 179 MG/DL 60-99 H = GLUBED) GLUCOSE BEDSIDE [id number] 16:32:00 Test Item Value Reference Range Interpretation Comments GLUCOSE BEDSIDE TESTING (test code 196 MG/DL 60-99 H = GLUBED) GLUCOSE BEDSIDE [id number] 11:12:00 Test Item Value Reference Range Interpretation Comments GLUCOSE BEDSIDE TESTING (test code 184 MG/DL 60-99 H = GLUBED) - XR CHEST [id number] 08:17:00 [facility] [place] : 1940 Sex: M Patient Name: KIP MARCH Unit No: [id number] EXAMS: CPT CODE: [id number] XR CHEST 1V 76825 EXAM: CHEST ONE VIEW INDICATION: S/P CABG LOCATION: B2 COMPARISON: April 01, 2021 TECHNIQUE: AP view of the chest FINDINGS: The right internal jugular catheter has been removed. There is a right central venous catheter in similar position. The heart size is enlarged. There is evidence of prior thoracic surgery. There are diffuse congestive changes bilaterally. There are trace bilateral pleural effusions. No pneumothorax. The osseous structures are normal. IMPRESSION: Cardiomegaly with diffuse congestive changes bilaterally. No pneumothorax. at 0817 Reported and signed by: Eleanor Pablo MD CC: Noni Marquez MD; Aisha Lucas MD Technologist: Miriam Herman Transcrpt Date/Tm/Trnsp: 04/02/2021 (816) 16 Orig Print D/T: S: 04/02/2021 (08) [facility] NAME: KIP MARCHER [id number] PHYS: [place] [address] : 1940 AGE: 81 SEX: M LOC: [id number] Antonio PHONE #: [phone] EXAM DATE: 04/02/2021 STATUS: ADM IN FAX #: [phone] RADIOLOGY NO: PAGE 1 Signed ReportBASIC METABOLIC [id number] 08:15:00 Test Item Value Reference Range Interpretation Comments SODIUM (test code = 132 MMOL/L 137-145 L NA) POTASSIUM (test code = 4.7 MMOL/L 3.5-5.1 N K) CHLORIDE (test code = 103 MMOL/L 98-107 N CL) CARBON DIOXIDE (test 25 MMOL/L 22-30 N code = CO2) ANION GAP (test code = 9 MMOL/L 14-24 L GAP) GLUCOSE (test code = 157 MG/DL 74-106 H GLU) BLOOD UREA NITROGEN 24 MG/DL 9-20 H (test code = BUN) GLOMERULAR FILTRATION > 60 Report ing units: RATE (test code = GFR) ml/mi n/1.73 m2 (Modified MDRD Formula)Referen ce Range: > or = 6 0 ml/min/1.73 m2 CREATININE (test code 1.00 MG/DL 0.66-1.25 N = CREAT) CALCIUM (test code = 7.8 MG/DL 8.4-10.2 L CA) Is this a LINE draw? YCBC W/AUTO [id number] 08:08:00 Test Item Value Reference Range Interpretation Comments WHITE BLOOD CELL (test code = 21.0 K/MM3 3.8-9.8 H WBC) RED BLOOD CELL (test code = 2.93 M/MM3 3.95-5.67 L RBC) HEMOGLOBIN (test code = HGB) 8.6 G/DL 12.4-16.7 L HEMATOCRIT (test code = HCT) 25.9 % 35.9-49.5 L MEAN CELL VOLUME (test code = 88 fL 81.7-96.1 N MCV) MEAN CELL HGB (test code = MCH) 29.4 pg 27.6-33.2 N MEAN CELL HGB CONCETRATION 33.2 % 32.9-35.5 N (test code = MCHC) RED CELL DISTRIBUTION WIDTH 15.1 % 12.1-15.2 N (test code = RDW) PLATELET COUNT (test code = 145 K/MM3 129-368 N PLT) MEAN PLATELET VOLUME (test code 11.1 fl 7.4-10.4 H = MPV) NEUTROPHIL % (test code = NT%) 79.8 % 43-75 H IMMATURE GRANULOCYTE % (test 1.3 % 0.0-2.0 N code = IG%) LYMPHOCYTE % (test code = LY%) 8.2 % 14-44 L MONOCYTE % (test code = MO%) 10.4 % 4-13 N EOSINOPHIL % (test code = EO%) 0.1 % 0-6 N BASOPHIL % (test code = BA%) 0.2 % 0-2 N NUCLEATED RBC % (test code = 0.0 % 0-1.0 N NRBC%) NEUTROPHIL # (test code = NT#) 16.79 K/mm3 2.0-7.6 H IMMATURE GRANULOCYTE # (test 0.27 x10 3/uL 0-0.03 H code = IG#) LYMPHOCYTE # (test code = LY#) 1.72 K/mm3 1.0-3.8 N MONOCYTE # (test code = MO#) 2.18 K/mm3 0.1-0.8 H EOSINOPHIL # (test code = EO#) 0.02 K/mm3 0.0-0.2 N BASOPHIL # (test code = BA#) 0.04 K/mm3 0.0-0.2 N NUCLEATED RBC # (test code = 0.00 K/mm3 0.0-0.1 N NRBC#) GLUCOSE BEDSIDE [id number] 08:06:00 Test Item Value Reference Range Interpretation Comments GLUCOSE BEDSIDE TESTING (test code 166 MG/DL 60-99 H = GLUBED) GLUCOSE BEDSIDE [id number] 20:49:00 Test Item Value Reference Range Interpretation Comments GLUCOSE BEDSIDE TESTING (test code 181 MG/DL 60-99 H = GLUBED) GLUCOSE BEDSIDE [id number] 14:21:00 Test Item Value Reference Range Interpretation Comments GLUCOSE BEDSIDE TESTING (test code 124 MG/DL 60-99 H = GLUBED) GLUCOSE BEDSIDE [id number] 11:44:00 Test Item Value Reference Range Interpretation Comments GLUCOSE BEDSIDE TESTING (test code 117 MG/DL 60-99 H = GLUBED) - XR CHEST [id number] 08:26:00 [facility] : 1940 Sex: M Patient Name: KIP MARCH Unit No: [id number] EXAMS: CPT CODE: [id number] XR CHEST 1V 09885 REASON FOR EXAM: CABG. COMPARISON: March 31, 2021. Chest, portable single frontal view. The patient has been extubated with the NG tube removed. Right subclavian line and Moca-Cyrus catheter in good position. The lungs are well-inflated with atelectasis and postoperative changes on the left. Mild interstitial changes could indicate mild interstitial edema. Heart size is enlarged median sternotomy wires. No right effusion or pneumothorax can be seen. Osseous structures appear to be intact. IMPRESSION: Remaining support lines intact. Postop changes of CABG with atelectasis at the left lower lung field. Cardiomegaly with mild vascular congestion. Location: [facility] at 0826 Reported and signed by: MARCELLO POLLOCK MD CC: Noni Marquez MD; Santana Rust Technologist: Miriam Herman Transcrpt Date/Tm/Trnsp: 04/01/2021 (825) Rose.RM61 Orig Print D/T: S: 04/01/2021 (828) [facility] NAME: KIP MARCH [id number] PHYS: [place] [address] : 1940 AGE: 81 SEX: M LOC: Z.SI02 A PHONE #: [phone] EXAM DATE: 04/01/2021 STATUS: ADM IN FAX #: [phone] RADIOLOGY NO: PAGE 1 Signed ReportGLUCOSE BEDSIDE [id number] 07:50:00 Test Item Value Reference Range Interpretation Comments GLUCOSE BEDSIDE TESTING (test code 180 MG/DL 60-99 H = GLUBED) GLUCOSE BEDSIDE [id number] 06:00:00 Test Item Value Reference Range Interpretation Comments GLUCOSE BEDSIDE TESTING (test code 148 MG/DL 60-99 H = GLUBED) BASIC METABOLIC [id number] 04:42:00 Test Item Value Reference Range Interpretation Comments SODIUM (test code = 138 MMOL/L 137-145 N NA) POTASSIUM (test code = 4.8 MMOL/L 3.5-5.1 N K) CHLORIDE (test code = 109 MMOL/L 98-107 H CL) CARBON DIOXIDE (test 26 MMOL/L 22-30 N code = CO2) ANION GAP (test code = 8 MMOL/L 14-24 L GAP) GLUCOSE (test code = 150 MG/DL 74-106 H GLU) BLOOD UREA NITROGEN 19 MG/DL 9-20 (test code = BUN) GLOMERULAR FILTRATION > 60 Report ing units: RATE (test code = GFR) ml/mi n/1.73 m2 (Modified MDRD Formula)Referen ce Range: > or = 6 0 ml/min/1.73 m2 CREATININE (test code 1.00 MG/DL 0.66-1.25 N = CREAT) CALCIUM (test code = 7.6 MG/DL 8.4-10.2 L CA) [id number] 04:42:00 Test Item Value Reference Range Interpretation Comments MAGNESIUM (test code = MAG) 3.0 MG/DL 1.6-2.3 H CBC W/AUTO [id number] 04:24:00 Test Item Value Reference Range Interpretation Comments WHITE BLOOD CELL (test code = 19.7 K/MM3 3.8-9.8 H WBC) RED BLOOD CELL (test code = 3.70 M/MM3 3.95-5.67 L RBC) HEMOGLOBIN (test code = HGB) 10.5 G/DL 12.4-16.7 L HEMATOCRIT (test code = HCT) 32.6 % 35.9-49.5 L MEAN CELL VOLUME (test code = 88 fL 81.7-96.1 N MCV) MEAN CELL HGB (test code = MCH) 28.4 pg 27.6-33.2 N MEAN CELL HGB CONCETRATION 32.2 % 32.9-35.5 L (test code = MCHC) RED CELL DISTRIBUTION WIDTH 14.5 % 12.1-15.2 N (test code = RDW) PLATELET COUNT (test code = 161 K/MM3 129-368 N PLT) MEAN PLATELET VOLUME (test code 10.7 fl 7.4-10.4 H = MPV) NEUTROPHIL % (test code = NT%) 82.3 % 43-75 H IMMATURE GRANULOCYTE % (test 1.1 % 0.0-2.0 N code = IG%) LYMPHOCYTE % (test code = LY%) 7.0 % 14-44 L MONOCYTE % (test code = MO%) 9.4 % 4-13 N EOSINOPHIL % (test code = EO%) 0.0 % 0-6 N BASOPHIL % (test code = BA%) 0.2 % 0-2 N NUCLEATED RBC % (test code = 0.0 % 0-1.0 N NRBC%) NEUTROPHIL # (test code = NT#) 16.23 K/mm3 2.0-7.6 H IMMATURE GRANULOCYTE # (test 0.21 x10 3/uL 0-0.03 H code = IG#) LYMPHOCYTE # (test code = LY#) 1.37 K/mm3 1.0-3.8 N MONOCYTE # (test code = MO#) 1.85 K/mm3 0.1-0.8 H EOSINOPHIL # (test code = EO#) 0.00 K/mm3 0.0-0.2 N BASOPHIL # (test code = BA#) 0.03 K/mm3 0.0-0.2 N NUCLEATED RBC # (test code = 0.00 K/mm3 0.0-0.1 N NRBC#) GLUCOSE BEDSIDE [id number] 04:06:00 Test Item Value Reference Range Interpretation Comments GLUCOSE BEDSIDE TESTING (test code 157 MG/DL 60-99 H = GLUBED) GLUCOSE BEDSIDE [id number] 01:24:00 Test Item Value Reference Range Interpretation Comments GLUCOSE BEDSIDE TESTING (test code 158 MG/DL 60-99 H = GLUBED) GLUCOSE BEDSIDE [id number] 23:16:00 Test Item Value Reference Range Interpretation Comments GLUCOSE BEDSIDE TESTING (test code 163 MG/DL 60-99 H = GLUBED) GLUCOSE BEDSIDE [id number] 22:03:00 Test Item Value Reference Range Interpretation Comments GLUCOSE BEDSIDE TESTING (test code 162 MG/DL 60-99 H = GLUBED) GLUCOSE BEDSIDE [id number] 21:38:00 Test Item Value Reference Range Interpretation Comments GLUCOSE BEDSIDE TESTING (test code 201 MG/DL 60-99 H = GLUBED) GLUCOSE BEDSIDE [id number] 19:19:00 Test Item Value Reference Range Interpretation Comments GLUCOSE BEDSIDE TESTING (test code 205 MG/DL 60-99 H = GLUBED) GLUCOSE BEDSIDE [id number] 18:43:00 Test Item Value Reference Range Interpretation Comments GLUCOSE BEDSIDE TESTING (test code 207 MG/DL 60-99 H = GLUBED) GLUCOSE BEDSIDE [id number] 17:34:00 Test Item Value Reference Range Interpretation Comments GLUCOSE BEDSIDE TESTING (test code 191 MG/DL 60-99 H = GLUBED) PROTHROMBIN [id number] 16:41:00 Test Item Value Reference Range Interpretation Comments PROTHROMBIN TIME 15.1 SECONDS 9.5-12.7 H PATIENT (test code = PTP) INTERNATIONAL NORMAL 1.4 0.86-1.14 H The INR is to be RATIO (test code = used only for INR) monitoring oral anticoagulantth erap y. INDICATION I NR VALUE ---- ---- ---- -------1. Prophylaxis, de ep venous thrombos is, including hig h risk surgery. 2.0 - 3.0 2. Prophylaxis, de ep venous thrombos is, hip surgery, treatment for d eep venous thrombosis or pulmonary prevention of systemic emboli sm in patients wit h valvular heart disease, atrial fibrillation, tissue heart va lve, or acute myocar dial infarction. 2.0 - 3 .0 3. Mechanical prosthesis hear t valves, recurrent syste keny embolism. 3.0 - 4.5 PTT [id number] 16:41:00 Test Item Value Reference Range Interpretation Comments PTT ACTIVATED (test code = APTT) 24.6 SECONDS 25.1-36.5 L GLUCOSE BEDSIDE [id number] 16:31:00 Test Item Value Reference Range Interpretation Comments GLUCOSE BEDSIDE TESTING (test code 192 MG/DL 60-99 H = GLUBED) GLUCOSE BEDSIDE [id number] 16:30:00 Test Item Value Reference Range Interpretation Comments GLUCOSE BEDSIDE TESTING (test code 207 MG/DL 60-99 H = GLUBED) BASIC METABOLIC [id number] 16:25:00 Test Item Value Reference Range Interpretation Comments SODIUM (test code = 143 MMOL/L 137-145 N NA) POTASSIUM (test code = 3.7 MMOL/L 3.5-5.1 N K) CHLORIDE (test code = 107 MMOL/L 98-107 N CL) CARBON DIOXIDE (test 29 MMOL/L 22-30 N code = CO2) ANION GAP (test code = 11 MMOL/L 14-24 L GAP) GLUCOSE (test code = 217 MG/DL 74-106 H GLU) BLOOD UREA NITROGEN 16 MG/DL 9-20 N (test code = BUN) GLOMERULAR FILTRATION > 60 Report ing units: RATE (test code = GFR) ml/mi n/1.73 m2 (Modified MDRD Formula)Referen ce Range: > or = 6 0 ml/min/1.73 m2 CREATININE (test code 0.90 MG/DL 0.66-1.25 N = CREAT) CALCIUM (test code = 7.2 MG/DL 8.4-10.2 L CA) [id number] 16:25:00 Test Item Value Reference Range Interpretation Comments MAGNESIUM (test code = MAG) 3.7 MG/DL 1.6-2.3 H CBC W/AUTO [id number] 16:10:00 Test Item Value Reference Range Interpretation Comments WHITE BLOOD CELL (test code = 28.8 K/MM3 3.8-9.8 H WBC) RED BLOOD CELL (test code = 3.73 M/MM3 3.95-5.67 L RBC) HEMOGLOBIN (test code = HGB) 10.9 G/DL 12.4-16.7 L HEMATOCRIT (test code = HCT) 32.4 % 35.9-49.5 L MEAN CELL VOLUME (test code = 87 fL 81.7-96.1 N MCV) MEAN CELL HGB (test code = MCH) 29.2 pg 27.6-33.2 N MEAN CELL HGB CONCETRATION 33.6 % 32.9-35.5 N (test code = MCHC) RED CELL DISTRIBUTION WIDTH 14.4 % 12.1-15.2 N (test code = RDW) PLATELET COUNT (test code = 174 K/MM3 129-368 N PLT) MEAN PLATELET VOLUME (test code 10.4 fl 7.4-10.4 N = MPV) NEUTROPHIL % (test code = NT%) 84.9 % 43-75 H IMMATURE GRANULOCYTE % (test 1.9 % 0.0-2.0 N code = IG%) LYMPHOCYTE % (test code = LY%) 7.0 % 14-44 L MONOCYTE % (test code = MO%) 5.8 % 4-13 N EOSINOPHIL % (test code = EO%) 0.1 % 0-6 N BASOPHIL % (test code = BA%) 0.3 % 0-2 N NUCLEATED RBC % (test code = 0.0 % 0-1.0 N NRBC%) NEUTROPHIL # (test code = NT#) 24.43 K/mm3 2.0-7.6 H IMMATURE GRANULOCYTE # (test 0.55 x10 3/uL 0-0.03 H code = IG#) LYMPHOCYTE # (test code = LY#) 2.02 K/mm3 1.0-3.8 N MONOCYTE # (test code = MO#) 1.67 K/mm3 0.1-0.8 H EOSINOPHIL # (test code = EO#) 0.04 K/mm3 0.0-0.2 N BASOPHIL # (test code = BA#) 0.10 K/mm3 0.0-0.2 N NUCLEATED RBC # (test code = 0.00 K/mm3 0.0-0.1 N NRBC#) ARTERIAL BLOOD [id number] 15:50:00 Test Item Value Reference Range Interpretation Comments ARTERIAL BLOOD GAS PH 7.27 mmHg 7.35-7.45 L (test code = PHA) ARTERIAL BLOOD GAS PCO2 39.4 mmHg 35.0-45.0 N (test code = PCO2A) ARTERIAL BLOOD GAS PO2 372.0 mmol/L 80.0-100.0 H (test code = PO2A) BICARBONATE TOTAL HCO3 17.7 mmol/L 20.0-26.0 L (test code = HCO3) BASE EXCESS (test code = -8.5 mmol/L -3.0-3.0 L JULIANN) ABG O2 SATURATION (test 99.7 % 95.0-100.0 N All critical code = SATA) values report t o and readback by DR. GARVIN by [id number] at 03/31/2021 3:40 :57 PM ABG DELIVERY (test code VENT = ALISA) ABG VENT MODE (test code A/C = MODEA) ABG VENT RESP RATE (test 12.0 /MIN code = RRA) ABG TIDAL VOLUME (test 500.0 ml code = TVA) ABG PEEP (test code = 5.0 cmH2O PEEPA) ABG TEMPERATURE (test 37.0 C See_Comment [Auto mated code = TEMPA) message] The system which generated this result transmit delores reference range : 37. The referen ce range was not u sed to interpret th is result as normal/abnormal . ABG SITE (test code = AL SITEA) ALLENS TEST (test code = NA CHECK ALLENS) FIO2 (test code = 100 % COHBGFFIO2) TOTAL HGB (test code = 11.3 g/L 12.0-16.0 L THB) HGB O2 SAT (test code = 98.4 % 95-100 N HBOSAT) CARBOXYHEMOGLOBIN (test 0.3 % 0.5-1.5 LL code = HOHGBT) METHEMOGLOBIN (test code 0.1 % 0.4-1.5 L = METHGB) - CHEST [id number] 15:41:00 [facility] HEMANTRob[facility]IP : 1940 Sex: M Patient Name: WOJCIECHKIP HICKMAN Unit No: [id number] EXAMS: CPT CODE: [id number] XR CHEST 1V 24610 EXAM: CHEST ONE VIEW INDICATION: S/P CABG LOCATION: B2 COMPARISON: March 30, 2021 TECHNIQUE: AP view of the chest FINDINGS: Tip of the endotracheal tube is 3.3 cm above the cristhian. The enteric tube tip crosses the diaphragm. The right-sided Moca-Cyrus catheter is seen in appropriate position. The heart size is normal. There is evidence of prior thoracic surgery. There are diffuse congestive changes bilaterally. No pneumothorax or pleural effusion is identified. The osseous structures are normal. IMPRESSION: Stable postoperative chest. Diffuse congestive changes bilaterally. Electronically Signed by Eleanor Dimas 03/31/2021 at 1541 Reported and signed by: Eleanor Pablo MD CC: Noni Marquez MD; Santana Rust Technologist: Onelia Galloway RT(R) Transcrpt Date/Tm/Trnsp: 03/31/2021 (1541) 16 Orig Print D/T: S: 03/31/2021 (1721) [facility] NAME: KIP MARCH [id number] PHYS: [place] [address] : 1940 AGE: 81 SEX: M LOC: Z.SI02 A PHONE #: [phone] EXAM DATE: 03/31/2021 STATUS: ADM IN FAX #: [phone] RADIOLOGY NO: PAGE 1 Signed ReportBASIC METABOLIC [id number] 15:24:00 Test Item Value Reference Range Interpretation Comments SODIUM (test code = 137 MMOL/L 137-145 N NA) POTASSIUM (test code = 3.8 MMOL/L 3.5-5.1 N K) CHLORIDE (test code = 109 MMOL/L 98-107 H CL) CARBON DIOXIDE (test 20 MMOL/L 22-30 L code = CO2) ANION GAP (test code = 12 MMOL/L 14-24 L GAP) GLUCOSE (test code = 245 MG/DL 74-106 H GLU) BLOOD UREA NITROGEN 14 MG/DL 9-20 N (test code = BUN) GLOMERULAR FILTRATION > 60 Report ing units: RATE (test code = GFR) ml/mi n/1.73 m2 (Modified MDRD Formula)Referen ce Range: > or = 6 0 ml/min/1.73 m2 CREATININE (test code 0.80 MG/DL 0.66-1.25 N = CREAT) CALCIUM (test code = 7.2 MG/DL 8.4-10.2 L CA) PLEASE CALL RESULTS TO PHONE #: [phone] STATPROTHROMBIN [id number] 15:09:00 Test Item Value Reference Range Interpretation Comments PROTHROMBIN TIME 15.5 SECONDS 9.5-12.7 H PATIENT (test code = PTP) INTERNATIONAL NORMAL 1.4 0.86-1.14 H The INR is to be RATIO (test code = used only for INR) monitoring oral anticoagulantth erap y. INDICATION I NR VALUE ---- ---- ---- -------1. Prophylaxis, de ep venous thrombos is, including hig h risk surgery. 2.0 - 3.0 2. Prophylaxis, de ep venous thrombos is, hip surgery, treatment for d eep venous thrombosis or pulmonary prevention of systemic emboli sm in patients wit h valvular heart disease, atrial fibrillation, tissue heart va lve, or acute myocar dial infarction. 2.0 - 3 .0 3. Mechanical prosthesis hear t valves, recurrent syste keny embolism. 3.0 - 4.5 PLEASE CALL RESULTS TO PHONE #: [id number] STATPTT [id number] 15:09:00 Test Item Value Reference Range Interpretation Comments PTT ACTIVATED (test code = APTT) 29.9 SECONDS 25.1-36.5 PLEASE CALL RESULTS TO PHONE #: [id number] STATCBC W/AUTO [id number] 14:55:00 Test Item Value Reference Range Interpretation Comments WHITE BLOOD CELL (test code = 27.3 K/MM3 3.8-9.8 H WBC) RED BLOOD CELL (test code = 3.77 M/MM3 3.95-5.67 L RBC) HEMOGLOBIN (test code = HGB) 10.9 G/DL 12.4-16.7 L HEMATOCRIT (test code = HCT) 33.3 % 35.9-49.5 L MEAN CELL VOLUME (test code = 88 fL 81.7-96.1 N MCV) MEAN CELL HGB (test code = MCH) 28.9 pg 27.6-33.2 N MEAN CELL HGB CONCETRATION 32.7 % 32.9-35.5 L (test code = MCHC) RED CELL DISTRIBUTION WIDTH 14.3 % 12.1-15.2 N (test code = RDW) PLATELET COUNT (test code = 158 K/MM3 129-368 PLT) MEAN PLATELET VOLUME (test code 10.5 fl 7.4-10.4 H = MPV) NEUTROPHIL % (test code = NT%) 79.5 % 43-75 H IMMATURE GRANULOCYTE % (test 1.9 % 0.0-2.0 N code = IG%) LYMPHOCYTE % (test code = LY%) 10.4 % 14-44 L MONOCYTE % (test code = MO%) 7.4 % 4-13 N EOSINOPHIL % (test code = EO%) 0.5 % 0-6 N BASOPHIL % (test code = BA%) 0.3 % 0-2 N NUCLEATED RBC % (test code = 0.0 % 0-1.0 N NRBC%) NEUTROPHIL # (test code = NT#) 21.67 K/mm3 2.0-7.6 H IMMATURE GRANULOCYTE # (test 0.51 x10 3/uL 0-0.03 H code = IG#) LYMPHOCYTE # (test code = LY#) 2.84 K/mm3 1.0-3.8 N MONOCYTE # (test code = MO#) 2.02 K/mm3 0.1-0.8 H EOSINOPHIL # (test code = EO#) 0.13 K/mm3 0.0-0.2 N BASOPHIL # (test code = BA#) 0.09 K/mm3 0.0-0.2 N NUCLEATED RBC # (test code = 0.00 K/mm3 0.0-0.1 N NRBC#) PLEASE CALL RESULTS TO PHONE #: [id number] [facility] ARTERIAL BLOOD [id number] 14:43:00 Test Item Value Reference Range Interpretation Comments POC ARTERIAL BLOOD GAS PH 7.366 7.35-7.45 N (test code = POCPHA) POC ARTERIAL BLOOD GAS PCO2 39.5 mmHg 35.0-45.0 N (test code = [id number]) POC ARTERIAL BLOOD GAS PO2 550.9 75.0-100.0 HH (test code = [id number]) POC HCO3 ARTERIAL (test 22.6 MMOL/L 20.0-26.0 N code = [id number]) POC BASE EXCESS (test code -2.6 MMOL/L -3.0-3.0 N = POCBEA) POC O2 SATURATION (test 100.0 % 92.0-98.5 H code = POCO2S) FIO2 (test code = FIO2A) 100 % 21-100 PaO2/FiO2 (test code = 550.90 mm/Hg [id number]) SODIUM (test code = NA/ABG) 141 MMOL/L 135-141 N POTASSIUM (test code = 3.8 MMOL/L 3.7-4.7 N K/ABG) CHLORIDE (test code = 105 MEQ/L CL/ABG) POC IONIZED CALCIUM (test 1.15 MMOL/L 1.13-1.32 N code = POCCA) POC GLUCOSE (test code = 252 MG/DL 60-99 H POCGLU) POC SAMPLE SOURCE (test Arterial Descript Specimen code = POCSAMPLE) LACTIC ACID POC (test code 3.70 mmol/L 0.7-2.0 HH = LACTP) POC ARTERIAL BLOOD [id number] 13:41:00 Test Item Value Reference Range Interpretation Comments POC ARTERIAL BLOOD GAS PH 7.377 7.35-7.45 N (test code = POCPHA) POC ARTERIAL BLOOD GAS PCO2 41.9 mmHg 35.0-45.0 N (test code = [id number]) POC ARTERIAL BLOOD GAS PO2 421.6 75.0-100.0 HH (test code = TZAOF7Q) POC HCO3 ARTERIAL (test 24.6 MMOL/L 20.0-26.0 N code = [id number]) POC BASE EXCESS (test code -0.6 MMOL/L -3.0-3.0 N = POCBEA) POC O2 SATURATION (test 100.0 % 92.0-98.5 H code = POCO2S) FIO2 (test code = FIO2A) 90 % 21-100 N PaO2/FiO2 (test code = 468.44 mm/Hg [id number]) SODIUM (test code = NA/ABG) 137 MMOL/L 135-141 N POTASSIUM (test code = 4.8 MMOL/L 3.7-4.7 H K/ABG) CHLORIDE (test code = 103 MEQ/L CL/ABG) POC IONIZED CALCIUM (test 1.18 MMOL/L 1.13-1.32 N code = POCCA) POC GLUCOSE (test code = 244 MG/DL 60-99 H POCGLU) POC SAMPLE SOURCE (test Arterial Descript Specimen code = POCSAMPLE) LACTIC ACID POC (test code 3.35 mmol/L 0.7-2.0 HH = LACTP) POC ARTERIAL BLOOD [id number] 13:08:00 Test Item Value Reference Range Interpretation Comments POC ARTERIAL BLOOD GAS PH 7.386 7.35-7.45 N (test code = POCPHA) POC ARTERIAL BLOOD GAS PCO2 36.8 mmHg 35.0-45.0 N (test code = [id number]) POC ARTERIAL BLOOD GAS PO2 437.8 75.0-100.0 HH (test code = BFUPM0C) POC HCO3 ARTERIAL (test 22.1 MMOL/L 20.0-26.0 N code = [id number]) POC BASE EXCESS (test code -2.6 MMOL/L -3.0-3.0 N = POCBEA) POC O2 SATURATION (test 100.0 % 92.0-98.5 H code = POCO2S) FIO2 (test code = FIO2A) 90 % 21-100 PaO2/FiO2 (test code = 486.44 mm/Hg [id number]) SODIUM (test code = NA/ABG) 135 MMOL/L 135-141 N POTASSIUM (test code = 5.0 MMOL/L 3.7-4.7 H K/ABG) CHLORIDE (test code = 103 MEQ/L CL/ABG) POC IONIZED CALCIUM (test 1.19 MMOL/L 1.13-1.32 N code = POCCA) POC GLUCOSE (test code = 223 MG/DL 60-99 H POCGLU) POC SAMPLE SOURCE (test Arterial Descript Specimen code = POCSAMPLE) LACTIC ACID POC (test code 2.34 mmol/L 0.7-2.0 HH = LACTP) POC ARTERIAL BLOOD [id number] 12:33:00 Test Item Value Reference Range Interpretation Comments POC ARTERIAL BLOOD GAS PH 7.332 7.35-7.45 L (test code = POCPHA) POC ARTERIAL BLOOD GAS PCO2 44.3 mmHg 35.0-45.0 N (test code = DEOBRB3M) POC ARTERIAL BLOOD GAS PO2 572.1 75.0-100.0 HH (test code = STZOC7H) POC HCO3 ARTERIAL (test 23.4 MMOL/L 20.0-26.0 N code = [id number]) POC BASE EXCESS (test code -2.4 MMOL/L -3.0-3.0 N = POCBEA) POC O2 SATURATION (test 100.0 % 92.0-98.5 H code = POCO2S) FIO2 (test code = FIO2A) 80 % 21-100 PaO2/FiO2 (test code = 715.12 mm/Hg [id number]) SODIUM (test code = NA/ABG) 139 MMOL/L 135-141 N POTASSIUM (test code = 3.9 MMOL/L 3.7-4.7 N K/ABG) CHLORIDE (test code = 104 MEQ/L CL/ABG) POC IONIZED CALCIUM (test 1.26 MMOL/L 1.13-1.32 N code = POCCA) POC GLUCOSE (test code = 232 MG/DL 60-99 H POCGLU) POC SAMPLE SOURCE (test Arterial Descript Specimen code = POCSAMPLE) LACTIC ACID POC (test code 2.96 mmol/L 0.7-2.0 HH = LACTP) POC ARTERIAL BLOOD [id number] 12:07:00 Test Item Value Reference Range Interpretation Comments POC ARTERIAL BLOOD GAS PH 7.341 7.35-7.45 L (test code = POCPHA) POC ARTERIAL BLOOD GAS PCO2 37.8 mmHg 35.0-45.0 N (test code = IGKRUD1E) POC ARTERIAL BLOOD GAS PO2 561.7 75.0-100.0 HH (test code = KCFHB2P) POC HCO3 ARTERIAL (test 20.5 MMOL/L 20.0-26.0 N code = USZGAP2I) POC BASE EXCESS (test code -4.8 MMOL/L -3.0-3.0 L = POCBEA) POC O2 SATURATION (test 100.0 % 92.0-98.5 H code = POCO2S) FIO2 (test code = FIO2A) 100 % 21-100 PaO2/FiO2 (test code = 561.70 mm/Hg [id number]) SODIUM (test code = NA/ABG) 135 MMOL/L 135-141 N POTASSIUM (test code = 3.3 MMOL/L 3.7-4.7 L K/ABG) CHLORIDE (test code = 101 MEQ/L CL/ABG) POC IONIZED CALCIUM (test 0.95 MMOL/L 1.13-1.32 L code = POCCA) POC GLUCOSE (test code = 238 MG/DL 60-99 H POCGLU) POC SAMPLE SOURCE (test Arterial Descript Specimen code = POCSAMPLE) LACTIC ACID POC (test code 3.03 mmol/L 0.7-2.0 HH = LACTP) BASIC METABOLIC [id number] 11:56:00 Test Item Value Reference Range Interpretation Comments SODIUM (test code = 137 MMOL/L 137-145 N NA) POTASSIUM (test code = 3.7 MMOL/L 3.5-5.1 N K) CHLORIDE (test code = 105 MMOL/L 98-107 N CL) CARBON DIOXIDE (test 24 MMOL/L 22-30 N code = CO2) ANION GAP (test code = 12 MMOL/L 14-24 L GAP) GLUCOSE (test code = 117 MG/DL 74-106 H GLU) BLOOD UREA NITROGEN 12 MG/DL 9-20 N (test code = BUN) GLOMERULAR FILTRATION > 60 Report ing units: RATE (test code = GFR) ml/mi n/1.73 m2 (Modified MDRD Formula)Referen ce Range: > or = 6 0 ml/min/1.73 m2 CREATININE (test code 0.70 MG/DL 0.66-1.25 N = CREAT) CALCIUM (test code = 7.9 MG/DL 8.4-10.2 L CA) PLEASE CALL RESULTS TO PHONE #: [id number] [facility] ARTERIAL BLOOD [id number] 11:25:00 Test Item Value Reference Range Interpretation Comments POC ARTERIAL BLOOD GAS PH 7.260 7.35-7.45 LL (test code = POCPHA) POC ARTERIAL BLOOD GAS PCO2 54.3 mmHg 35.0-45.0 HH (test code = PKAXAK8A) POC ARTERIAL BLOOD GAS PO2 471.3 75.0-100.0 HH (test code = LJOJV0O) POC HCO3 ARTERIAL (test 24.4 MMOL/L 20.0-26.0 N code = QCOPHY9C) POC BASE EXCESS (test code -3.2 MMOL/L -3.0-3.0 L = POCBEA) POC O2 SATURATION (test 100.0 % 92.0-98.5 H code = POCO2S) FIO2 (test code = FIO2A) 90 % 21-100 PaO2/FiO2 (test code = 523.66 mm/Hg [id number]) SODIUM (test code = NA/ABG) 141 MMOL/L 135-141 N POTASSIUM (test code = 3.3 MMOL/L 3.7-4.7 L K/ABG) CHLORIDE (test code = 104 MEQ/L CL/ABG) POC IONIZED CALCIUM (test 1.17 MMOL/L 1.13-1.32 N code = POCCA) POC GLUCOSE (test code = 237 MG/DL 60-99 H POCGLU) POC SAMPLE SOURCE (test Arterial Descript Specimen code = POCSAMPLE) LACTIC ACID POC (test code 2.17 mmol/L 0.7-2.0 HH = LACTP) CBC W/AUTO [id number] 09:49:00 Test Item Value Reference Range Interpretation Comments WHITE BLOOD CELL (test code = 7.4 K/MM3 3.8-9.8 N WBC) RED BLOOD CELL (test code = 3.94 M/MM3 3.95-5.67 L RBC) HEMOGLOBIN (test code = HGB) 11.2 G/DL 12.4-16.7 L HEMATOCRIT (test code = HCT) 35.1 % 35.9-49.5 L MEAN CELL VOLUME (test code = 89 fL 81.7-96.1 N MCV) MEAN CELL HGB (test code = MCH) 28.4 pg 27.6-33.2 N MEAN CELL HGB CONCETRATION 31.9 % 32.9-35.5 L (test code = MCHC) RED CELL DISTRIBUTION WIDTH 14.1 % 12.1-15.2 N (test code = RDW) PLATELET COUNT (test code = 213 K/MM3 129-368 N PLT) MEAN PLATELET VOLUME (test code 10.3 fl 7.4-10.4 N = MPV) NEUTROPHIL % (test code = NT%) 61.7 % 43-75 N IMMATURE GRANULOCYTE % (test 0.8 % 0.0-2.0 N code = IG%) LYMPHOCYTE % (test code = LY%) 20.6 % 14-44 N MONOCYTE % (test code = MO%) 11.8 % 4-13 N EOSINOPHIL % (test code = EO%) 4.7 % 0-6 N BASOPHIL % (test code = BA%) 0.4 % 0-2 N NUCLEATED RBC % (test code = 0.0 % 0-1.0 N NRBC%) NEUTROPHIL # (test code = NT#) 4.54 K/mm3 2.0-7.6 N IMMATURE GRANULOCYTE # (test 0.06 x10 3/uL 0-0.03 H code = IG#) LYMPHOCYTE # (test code = LY#) 1.52 K/mm3 1.0-3.8 N MONOCYTE # (test code = MO#) 0.87 K/mm3 0.1-0.8 H EOSINOPHIL # (test code = EO#) 0.35 K/mm3 0.0-0.2 H BASOPHIL # (test code = BA#) 0.03 K/mm3 0.0-0.2 N NUCLEATED RBC # (test code = 0.00 K/mm3 0.0-0.1 N NRBC#) PLEASE CALL RESULTS TO PHONE #: [phone] [facility] ARTERIAL BLOOD [id number] 09:41:00 Test Item Value Reference Range Interpretation Comments POC ARTERIAL BLOOD GAS PH 7.362 7.35-7.45 N (test code = POCPHA) POC ARTERIAL BLOOD GAS PCO2 45.4 mmHg 35.0-45.0 H (test code = [id number]) POC ARTERIAL BLOOD GAS PO2 479.4 75.0-100.0 HH (test code = BCDCC2P) POC HCO3 ARTERIAL (test 25.8 MMOL/L 20.0-26.0 N code = XQXJDY6N) POC BASE EXCESS (test code 0.0 MMOL/L -3.0-3.0 N = POCBEA) POC O2 SATURATION (test 100.0 % 92.0-98.5 H code = POCO2S) FIO2 (test code = FIO2A) 100 % 21-100 N PaO2/FiO2 (test code = 479.40 mm/Hg [id number]) SODIUM (test code = NA/ABG) 140 MMOL/L 135-141 N POTASSIUM (test code = 3.7 MMOL/L 3.7-4.7 N K/ABG) CHLORIDE (test code = 103 MEQ/L CL/ABG) POC IONIZED CALCIUM (test 1.20 MMOL/L 1.13-1.32 N code = POCCA) POC GLUCOSE (test code = 113 MG/DL 60-99 H POCGLU) POC SAMPLE SOURCE (test Arterial Descript Specimen code = POCSAMPLE) LACTIC ACID POC (test code 1.56 mmol/L 0.7-2.0 N = LACTP) POC ARTERIAL BLOOD [id number] 07:59:00 Test Item Value Reference Range Interpretation Comments POC ARTERIAL BLOOD GAS PH 7.387 7.35-7.45 N (test code = POCPHA) POC ARTERIAL BLOOD GAS PCO2 42.8 mmHg 35.0-45.0 N (test code = RNHTFM8S) POC ARTERIAL BLOOD GAS PO2 76.2 75.0-100.0 N (test code = VOLXQ1Q) POC HCO3 ARTERIAL (test 25.8 MMOL/L 20.0-26.0 N code = IPKJUR6Y) POC BASE EXCESS (test code 0.5 MMOL/L -3.0-3.0 N = POCBEA) POC O2 SATURATION (test 94.9 % 92.0-98.5 N code = POCO2S) SODIUM (test code = NA/ABG) 138 MMOL/L 135-141 N POTASSIUM (test code = 3.9 MMOL/L 3.7-4.7 N K/ABG) CHLORIDE (test code = 103 MEQ/L CL/ABG) POC IONIZED CALCIUM (test 1.19 MMOL/L 1.13-1.32 N code = POCCA) POC GLUCOSE (test code = 140 MG/DL 60-99 H POCGLU) POC SAMPLE SOURCE (test Arterial Descript Specimen code = POCSAMPLE) LACTIC ACID POC (test code 0.61 mmol/L 0.7-2.0 L = LACTP) GLUCOSE BEDSIDE [id number] 19:10:00 Test Item Value Reference Range Interpretation Comments GLUCOSE BEDSIDE TESTING (test code 246 MG/DL 60-99 H = GLUBED) GLUCOSE BEDSIDE [id number] 16:13:00 Test Item Value Reference Range Interpretation Comments GLUCOSE BEDSIDE TESTING (test code 121 MG/DL 60-99 H = GLUBED) HIV 12 AB [id number] 13:25:00 Test Item Value Reference Range Interpretation Comments HIV 1 2 COMBO AG/AB SCREEN AB/AG NON REACTIVE NONREACTIVE (test code = [id number]) GLYCOSYLATED HEMOGLOBIN [id number] 12:53:00 Test Item Value Reference Range Interpretation Comments GLYCOSYLATED 6.1 % 4.8-5.9 H Any condition t hat HEMOGLOBIN (HA1C) shortens e rythocyte (test code = survival or dec reasesmean GLYHGB) erythrocyte age (e.g., recovery from a cute blood loss,hemolytic anemia) will falsely lo wer HGBA1c resultsregardle ss of the method used. H GBA1c results from telma rahman HbSS, HbCC, and HbSc must be interpreted with cautiongiven th e pathological pr ocesses, including anemia,increase d red cell turnover, trans fusion requirements, thatadversely i mpact HGBA1c as a mar ker of long-term glycemiccontrol . Alternative for ms of testing such as fructosaminesho uld be considered for these patients. MEAN BLOOD GLUCOSE 128 MG/DL 70-110 H (test code = MBG) PLT RESPONSE TO [id number] 11:57:00 Test Item Value Reference Range Interpretation Comments PLT RESPONSE TO 275 PRU 194-418 N P2Y12 Result s PLAVIX (test code = Interpre tation: Test PLAVRES) results are in P2Y12 Reaction Units (PRU). Pre-Drug Refe rence Range is 194-41 8. Pre-drug platel et function estima galindo the total possible platelet aggregation independent of P2Y12 inhibitor drugs . Values <194 cou ld be due to low HCT, low platelet count, or p resence of IIb/IIIa inhibi tors. Post-Drug Resu lts: Lower PRU levels are associated with expec delores antiplatelet ef fect. Values may be b elow the stated refe rence range. Studies show that patients wi th <230 PRU had fewer a dverse events. GLUCOSE BEDSIDE [id number] 11:45:00 Test Item Value Reference Range Interpretation Comments GLUCOSE BEDSIDE TESTING (test code 109 MG/DL 60-99 H = GLUBED) COMPREHENSIVE METABOLIC [id number] 10:55:00 Test Item Value Reference Range Interpretation Comments SODIUM (test code 136 MMOL/L 137-145 L = NA) POTASSIUM (test 4.0 MMOL/L 3.5-5.1 N code = K) CHLORIDE (test 102 MMOL/L 98-107 N code = CL) CARBON DIOXIDE 28 MMOL/L 22-30 N (test code = CO2) GLUCOSE (test 151 MG/DL 74-106 H code = GLU) BLOOD UREA 14 MG/DL 9-20 N NITROGEN (test code = BUN) GLOMERULAR > 60 Reporting units : FILTRATION RATE ml/min/1.73 m2 (Modified (test code = GFR) MDRD Formu la)Reference Range: > or = 6 0 ml/min/1.73 m2 CREATININE (test 0.80 MG/DL 0.66-1.25 N code = CREAT) TOTAL PROTEIN 6.8 G/DL 6.2-7.6 N [facility] Clinical Diagnostic (test code = has made us monique re of PROT) newinformation regarding the potential i nterference ofEltrombopag (a bone marrow stimulan t used to treatthrombocyt onmenia and aplastic anemia ) with specific assays on the Vitros 5600 of which Total Protein is one of thoseassays per formed in our lab.Interfe rence testing perform ed at Ortho determined that Eltrombopag does interfere with Vitros Total Protein asfollowsEltrom bopag Interference fo r Vitros Product Total Protein:======= Eltrombopag Max Observed A vg. [place] on Concentration Concentration== ==== 2.5 mg/dl 6.0 g/dl +0.41 +0.34 3.5 mg/dl 6.0 g/dl +0.50 +0.45 5 mg/dl 6.0 g/dl +0.73 +0.65 2.5 mg/dl 8.0 g/dl +0.44 +0.41 3.5 mg/dl 8.0 g/dl +0.55 +0.52 5 mg/dl 8.0 g/dl +0.86 +0.77 ALBUMIN (test 4.0 G/DL 3.5-5.0 N code = ALB) CALCIUM (test 8.5 MG/DL 8.4-10.2 N code = CA) BILIRUBIN TOTAL 0.7 MG/DL 0.2-1.3 N Eltrombopag Interference (test code = for Vitros Prod uct TBil, BILT) BuBc: Assa y Eltrombopag Analyte/ Max Observed Avg. Bias Concentrati on Concentration Concentration== ====TBil 7mg/dl T Andrei/ 1.2mg/dl +0.23 mg.dl +0.20mg/dlBuBc 3.5mg/dl Bu/0.8mg/dl +0.25mg/dl +0 .24mg/dlBuBc 7 mg/dl Bu/14.2mg/dl +0.38mg/dl +0.25mg/dlBuBc 5mg/dl Bc/0mg/dl +0.25mg/dl +0 .15mg/dlBuBc 3.5mg/dl Bc/2.8mg/dl +0.25mg/dl +0.23mg/dl SGOT/AST (test 23 UNITS/L 17-59 N code = AST) SGPT/ALT (test 20 UNITS/L 0-49 N code = ALT) ALKALINE 45 UNITS/L 38-126 N PHOSPHATASE (test code = ALKP) Specimen comments: if not done in the last 72 hoursPROTHROMBIN TIME 2021-03-30 10:53:00 Test Item Value Reference Range Interpretation Comments PROTHROMBIN TIME 12.2 SECONDS 9.5-12.7 PATIENT (test code = PTP) INTERNATIONAL NORMAL 1.1 0.86-1.14 N The INR is to be RATIO (test code = used only for INR) monitoring oral anticoagulantth erap y. INDICATION I NR VALUE ---- ---- ---- -------1. Prophylaxis, de ep venous thrombos is, including hig h risk surgery. 2.0 - 3.0 2. Prophylaxis, de ep venous thrombos is, hip surgery, treatment for d eep venous thrombosis or pulmonary prevention of systemic emboli sm in patients wit h valvular heart disease, atrial fibrillation, tissue heart va lve, or acute myocar dial infarction. 2.0 - 3 .0 3. Mechanical prosthesis hear t valves, recurrent syste keny embolism. 3.0 - 4.5 PTT [id number] 10:53:00 Test Item Value Reference Range Interpretation Comments PTT ACTIVATED (test code = APTT) 39.4 SECONDS 25.1-36.5 H CBC W/AUTO [id number] 10:44:00 Test Item Value Reference Range Interpretation Comments WHITE BLOOD CELL (test code = 9.1 K/MM3 3.8-9.8 N WBC) RED BLOOD CELL (test code = 4.38 M/MM3 3.95-5.67 N RBC) HEMOGLOBIN (test code = HGB) 12.5 G/DL 12.4-16.7 N HEMATOCRIT (test code = HCT) 38.6 % 35.9-49.5 MEAN CELL VOLUME (test code = 88 fL 81.7-96.1 N MCV) MEAN CELL HGB (test code = MCH) 28.5 pg 27.6-33.2 N MEAN CELL HGB CONCETRATION 32.4 % 32.9-35.5 L (test code = MCHC) RED CELL DISTRIBUTION WIDTH 14.1 % 12.1-15.2 N (test code = RDW) PLATELET COUNT (test code = 232 K/MM3 129-368 N PLT) MEAN PLATELET VOLUME (test code 10.4 fl 7.4-10.4 N = MPV) NEUTROPHIL % (test code = NT%) 61.1 % 43-75 N IMMATURE GRANULOCYTE % (test 0.9 % 0.0-2.0 N code = IG%) LYMPHOCYTE % (test code = LY%) 22.4 % 14-44 N MONOCYTE % (test code = MO%) 9.8 % 4-13 N EOSINOPHIL % (test code = EO%) 5.2 % 0-6 N BASOPHIL % (test code = BA%) 0.6 % 0-2 N NUCLEATED RBC % (test code = 0.0 % 0-1.0 N NRBC%) NEUTROPHIL # (test code = NT#) 5.56 K/mm3 2.0-7.6 N IMMATURE GRANULOCYTE # (test 0.08 x10 3/uL 0-0.03 H code = IG#) LYMPHOCYTE # (test code = LY#) 2.03 K/mm3 1.0-3.8 N MONOCYTE # (test code = MO#) 0.89 K/mm3 0.1-0.8 H EOSINOPHIL # (test code = EO#) 0.47 K/mm3 0.0-0.2 H BASOPHIL # (test code = BA#) 0.05 K/mm3 0.0-0.2 N NUCLEATED RBC # (test code = 0.00 K/mm3 0.0-0.1 N NRBC#) Specimen comments: if not done in the last 72 hours- XR CHEST [id number] 10:33:00[facility] : 1940 Sex: M Patient Name: KIP MARCH Unit No: [id number] EXAMS: CPT CODE: [id number] XR CHEST 1V [id number] EXAM: CHEST ONE VIEW INDICATION: Cardiac/Heart Surgery LOCATION: B2 COMPARISON: None available TECHNIQUE: AP view of the chest FINDINGS: The heart size is enlarged. There are mild congestive changes bilaterally. No pneumothorax or pleural effusion is identified. The osseous structures are normal. IMPRESSION: Cardiomegaly with mild congestive changes bilaterally. at 1033 Reported and signed by: Eleanor Pablo MD CC: Noni Marquez MD; Santana Rust; Annel HOLLIS Technologist: KAREL Reid, RT(R) Transcrpt Date/Tm/Trnsp: 03/30/2021 (1033) t.[email or web address] Orig Print D/T: S: 03/30/2021 (1036) [facility] NAME: KIP MARCH [place] [id number] PHYS: [place] [address] : 1940 AGE: 81 SEX: M : [phone] PHONE #: [phone] EXAM DATE: 03/30/2021 STATUS: ADM IN FAX #: [phone] RADIOLOGY NO: PAGE 1 Signed ReportGLUCOSE BEDSIDE TESTING 2021-03-30 07:45:00 Test Item Value Reference Range Interpretation Comments GLUCOSE BEDSIDE TESTING (test code 115 MG/DL 60-99 H = GLUBED) GLUCOSE BEDSIDE [id number] 20:51:00 Test Item Value Reference Range Interpretation Comments GLUCOSE BEDSIDE TESTING (test code 148 MG/DL 60-99 H = GLUBED) GLUCOSE BEDSIDE [id number] 15:50:00 Test Item Value Reference Range Interpretation Comments GLUCOSE BEDSIDE TESTING (test code = 72 MG/DL 60-99 N GLUBED) GLUCOSE BEDSIDE [id number] 11:03:00 Test Item Value Reference Range Interpretation Comments GLUCOSE BEDSIDE TESTING (test code 156 MG/DL 60-99 H = GLUBED) GLUCOSE BEDSIDE [id number] 07:51:00 Test Item Value Reference Range Interpretation Comments GLUCOSE BEDSIDE TESTING (test code 111 MG/DL 60-99 H = GLUBED) [id number] 05:33:00 Test Item Value Reference Range Interpretation Comments PHOSPHOROUS (test code = PHOS) 3.1 MG/DL 2.5-4.5 N [id number] 05:33:00 Test Item Value Reference Range Interpretation Comments MAGNESIUM (test code = MAG) 2.1 MG/DL 1.6-2.3 N BASIC METABOLIC [id number] 05:12:00 Test Item Value Reference Range Interpretation Comments SODIUM (test code = 136 MMOL/L 137-145 L NA) POTASSIUM (test code = 4.0 MMOL/L 3.5-5.1 N K) CHLORIDE (test code = 103 MMOL/L 98-107 N CL) CARBON DIOXIDE (test 30 MMOL/L 22-30 N code = CO2) ANION GAP (test code = 7 MMOL/L 14-24 L GAP) GLUCOSE (test code = 102 MG/DL 74-106 GLU) BLOOD UREA NITROGEN 19 MG/DL 9-20 N (test code = BUN) GLOMERULAR FILTRATION > 60 Report ing units: RATE (test code = GFR) ml/mi n/1.73 m2 (Modified MDRD Formula)Referen ce Range: > or = 6 0 ml/min/1.73 m2 CREATININE (test code 1.00 MG/DL 0.66-1.25 N = CREAT) CALCIUM (test code = 8.4 MG/DL 8.4-10.2 N CA) CBC W/AUTO [id number] 04:54:00 Test Item Value Reference Range Interpretation Comments WHITE BLOOD CELL (test code = 8.0 K/MM3 3.8-9.8 N WBC) RED BLOOD CELL (test code = 3.95 M/MM3 3.95-5.67 N RBC) HEMOGLOBIN (test code = HGB) 11.4 G/DL 12.4-16.7 L HEMATOCRIT (test code = HCT) 34.3 % 35.9-49.5 L MEAN CELL VOLUME (test code = 87 fL 81.7-96.1 N MCV) MEAN CELL HGB (test code = MCH) 28.9 pg 27.6-33.2 N MEAN CELL HGB CONCETRATION 33.2 % 32.9-35.5 N (test code = MCHC) RED CELL DISTRIBUTION WIDTH 14.0 % 12.1-15.2 N (test code = RDW) PLATELET COUNT (test code = 233 K/MM3 129-368 N PLT) MEAN PLATELET VOLUME (test code 10.4 fl 7.4-10.4 N = MPV) NEUTROPHIL % (test code = NT%) 56.5 % 43-75 N IMMATURE GRANULOCYTE % (test 0.4 % 0.0-2.0 N code = IG%) LYMPHOCYTE % (test code = LY%) 22.7 % 14-44 N MONOCYTE % (test code = MO%) 12.3 % 4-13 N EOSINOPHIL % (test code = EO%) 7.5 % 0-6 H BASOPHIL % (test code = BA%) 0.6 % 0-2 N NUCLEATED RBC % (test code = 0.0 % 0-1.0 N NRBC%) NEUTROPHIL # (test code = NT#) 4.49 K/mm3 2.0-7.6 N IMMATURE GRANULOCYTE # (test 0.03 x10 3/uL 0-0.03 N code = IG#) LYMPHOCYTE # (test code = LY#) 1.81 K/mm3 1.0-3.8 N MONOCYTE # (test code = MO#) 0.98 K/mm3 0.1-0.8 H EOSINOPHIL # (test code = EO#) 0.60 K/mm3 0.0-0.2 H BASOPHIL # (test code = BA#) 0.05 K/mm3 0.0-0.2 N NUCLEATED RBC # (test code = 0.00 K/mm3 0.0-0.1 N NRBC#) GLUCOSE BEDSIDE [id number] 21:32:00 Test Item Value Reference Range Interpretation Comments GLUCOSE BEDSIDE TESTING (test code 121 MG/DL 60-99 H = GLUBED) BASIC METABOLIC [id number] 07:07:00 Test Item Value Reference Range Interpretation Comments SODIUM (test code = 135 MMOL/L 137-145 L NA) POTASSIUM (test code = 3.6 MMOL/L 3.5-5.1 N K) CHLORIDE (test code = 99 MMOL/L 98-107 N CL) CARBON DIOXIDE (test 29 MMOL/L 22-30 N code = CO2) ANION GAP (test code = 11 MMOL/L 14-24 L GAP) GLUCOSE (test code = 129 MG/DL 74-106 H GLU) BLOOD UREA NITROGEN 18 MG/DL 9-20 N (test code = BUN) GLOMERULAR FILTRATION > 60 Report ing units: RATE (test code = GFR) ml/mi n/1.73 m2 (Modified MDRD Formula)Referen ce Range: > or = 6 0 ml/min/1.73 m2 CREATININE (test code 1.10 MG/DL 0.66-1.25 N = CREAT) CALCIUM (test code = 9.1 MG/DL 8.4-10.2 N CA) LIPID PROFILE (CORONARY RISK)2021-03-28 07:07:00 Test Item Value Reference Range Interpretation Comments TRIGLYCERIDES (test 126 MG/DL 150-199 L TRIGLYCE RIDES code = TRIG) REFERENCE RANGE:Normal: < 150 mg/dLBorderline High: 150-199 mg/dLHi gh: 200-499 mg/dLVe ry High: >=500 mg/ dL CHOLESTEROL (test code 152 MG/DL <200 = CHOL) HDL CHOLESTEROL (test 49 MG/DL 40-59 N code = HDL) LIPOPROTEIN LDL (test 76 MG/DL 0-99 N code = LDL) OPTIMAL........ .<100 mg/dLNEAR OPTIMAL/ABOVE OPTIMAL........ .100-12 9 mg/dL BORDERLINE HIGH.........13 0-159 mg/dL HIGH.........16 0-189 mg/dL VERY HIGH...... ...>/= 190 mg/dL [id number] 07:07:00 Test Item Value Reference Range Interpretation Comments MAGNESIUM (test code = MAG) 2.2 MG/DL 1.6-2.3 N PROTHROMBIN [id number] 06:48:00 Test Item Value Reference Range Interpretation Comments PROTHROMBIN TIME 11.4 SECONDS 9.5-12.7 N PATIENT (test code = PTP) INTERNATIONAL NORMAL 1.0 0.86-1.14 N The INR is to be RATIO (test code = used only for INR) monitoring oral anticoagulantth erap y. INDICATION I NR VALUE ---- ---- ---- -------1. Prophylaxis, de ep venous thrombos is, including hig h risk surgery. 2.0 - 3.0 2. Prophylaxis, de ep venous thrombos is, hip surgery, treatment for d eep venous thrombosis or pulmonary prevention of systemic emboli sm in patients wit h valvular heart disease, atrial fibrillation, tissue heart va lve, or acute myocar dial infarction. 2.0 - 3 .0 3. Mechanical prosthesis hear t valves, recurrent syste keny embolism. 3.0 - 4.5 PTT [id number] 06:48:00 Test Item Value Reference Range Interpretation Comments PTT ACTIVATED (test code = APTT) 34.6 SECONDS 25.1-36.5 N CBC W/AUTO [id number] 06:38:00 Test Item Value Reference Range Interpretation Comments WHITE BLOOD CELL (test code = 8.9 K/MM3 3.8-9.8 N WBC) RED BLOOD CELL (test code = 4.30 M/MM3 3.95-5.67 N RBC) HEMOGLOBIN (test code = HGB) 12.3 G/DL 12.4-16.7 L HEMATOCRIT (test code = HCT) 37.3 % 35.9-49.5 N MEAN CELL VOLUME (test code = 87 fL 81.7-96.1 N MCV) MEAN CELL HGB (test code = MCH) 28.6 pg 27.6-33.2 N MEAN CELL HGB CONCETRATION 33.0 % 32.9-35.5 N (test code = MCHC) RED CELL DISTRIBUTION WIDTH 14.0 % 12.1-15.2 N (test code = RDW) PLATELET COUNT (test code = 235 K/MM3 129-368 N PLT) MEAN PLATELET VOLUME (test code 10.0 fl 7.4-10.4 N = MPV) NEUTROPHIL % (test code = NT%) 53.1 % 43-75 N IMMATURE GRANULOCYTE % (test 0.8 % 0.0-2.0 N code = IG%) LYMPHOCYTE % (test code = LY%) 28.9 % 14-44 N MONOCYTE % (test code = MO%) 11.3 % 4-13 N EOSINOPHIL % (test code = EO%) 5.3 % 0-6 N BASOPHIL % (test code = BA%) 0.6 % 0-2 N NUCLEATED RBC % (test code = 0.0 % 0-1.0 N NRBC%) NEUTROPHIL # (test code = NT#) 4.72 K/mm3 2.0-7.6 N IMMATURE GRANULOCYTE # (test 0.07 x10 3/uL 0-0.03 H code = IG#) LYMPHOCYTE # (test code = LY#) 2.57 K/mm3 1.0-3.8 N MONOCYTE # (test code = MO#) 1.00 K/mm3 0.1-0.8 H EOSINOPHIL # (test code = EO#) 0.47 K/mm3 0.0-0.2 H BASOPHIL # (test code = BA#) 0.05 K/mm3 0.0-0.2 N NUCLEATED RBC # (test code = 0.00 K/mm3 0.0-0.1 N NRBC#) COVID 19 Asymptomatic IH [id number] 05:30:00 Test Item Value Reference Range Interpretation Comments COVID 19 NEGATIVE Negative "Negative resul ts from Asymptomatic IH AG patients with symptom (test code = onset beyondfiv e days, COVNONPUIAG) should be sharon delores as presumptive, andconfirmation with a molecular assay , if necessary forpa tient management may be performed. Nega tive results do notr ule out COVID-19 and sh ould not be used as the sole basisfor treatm ent or patient managem ent decisions, includinginfect ion control decisio ns. Negative result s should beconsidered in the context of a pa tients recent exposure s,history, and the presenc e of clinical signs and symptomsconsist ent with COVID-19.This t est detects both vi able andnon-viable S ARS-CoV and SARS CoV-2. Test performance dep endson the amount of virus (antigen) in the sample." Comments to Phleb: PLS RUN TEST CALIXTODoretha LORETTA [id number] 18:54:05 Test Item Value Reference Interpretation Comments Range TROPONIN I (test 0.017 ng/mL See_Comment [Automated code = 9149073622) message] The system which generated this result transmitted reference range : <=0.034. The reference range was not used to interpret this result as normal/abnormal . ALANNA (test code = Reference (Normal) ALANNA) Range (defined by the 99th percentile reference limit): <= 0.034 ng/mL Note: Cardiac troponin begins to rise 3-4 hours after the onset of ischemia. Repeat in 4-6 hours if the sample was drawn within 3-4 hours of the onset of the symptom and found normal. Diagnosis of myocardial injury is made with acute changes in cTn concentrations with at least one serial sample above the 99th percentile upper reference limit (URL), taken together with the patient's clinical presentation. Biotin has been reported to cause a negative bias, interpret results relative to patient's use of biotin. Lab Interpretation Normal (test code = 60663-5) [facility]24 Test Item Value Reference Range Interpretation Comments MAGNESIUM (test code = 0045680496) 1.9 mg/dL 1.7-2.4 Lab Interpretation (test code = Normal 34008-9) [facility] [id number] 18:41:04 Test Item Value Reference Range Interpretation Comments CK (test code = 8568535579) 108 U/L 33-194 Lab Interpretation (test code = Normal 60001-0) [facility] [id number] 17:45:23 Test Item Value Reference Interpretation Comments Range TROPONIN I (test 0.017 ng/mL See_Comment [Automated code = 7114434253) message] The system which generated this result transmitted reference range : <=0.034. The reference range was not used to interpret this result as normal/abnormal . ALANNA (test code = Reference (Normal) ALANNA) Range (defined by the 99th percentile reference limit): <= 0.034 ng/mL Note: Cardiac troponin begins to rise 3-4 hours after the onset of ischemia. Repeat in 4-6 hours if the sample was drawn within 3-4 hours of the onset of the symptom and found normal. Diagnosis of myocardial injury is made with acute changes in cTn concentrations with at least one serial sample above the 99th percentile upper reference limit (URL), taken together with the patient's clinical presentation. Biotin has been reported to cause a negative bias, interpret results relative to patient's use of biotin. Lab Interpretation Normal (test code = 34037-4) [id number] 17:42:00 Test Item Value Reference Range Interpretation Comments NT-proBNP (test code 347 pg/mL See_Comment [Autom ated = 0207297946) message] The system which generated this result transmitted reference range : <=450. The reference range was not used to interpret this result as normal/abnormal . ALANNA (test code = ALANNA) Biotin has been reported to cause a negative bias, interpret results relative to patient's use of biotin. Lab Interpretation Normal (test code = 80173-5) [facility]. METABOLIC PANEL (13415)2021-03-22 17:35:44 Test Item Value Reference Range Interpretation Comments NA (test code = 133 mmol/L 135-145 L 8136437310) K (test code = 4.4 mmol/L 3.5-5.0 6872351311) CL (test code = 98 mmol/L 98-108 3658856033) CO2 TOTAL (test code = 30 mmol/L 23-31 9870708041) AGAP (test code = 2-16 1184133087) BUN (test code = 19 mg/dL 7-23 2472685191) GLUCOSE (test code = 134 mg/dL 70-110 H 9521562365) CREATININE (test code = 1.03 mg/dL 0.60-1.25 7582139913) TOTAL BILI (test code = 0.6 mg/dL 0.1-1.0 4617675876) CALCIUM (test code = 9.1 mg/dL 8.6-10.6 0256252224) T PROTEIN (test code = 6.3 g/dL 6.3-8.2 8126502978) ALBUMIN (test code = 3.9 g/dL 3.5-5.0 3872404768) ALK PHOS (test code = 45 U/L 34-122 8464695923) ALTv (test code = 18 U/L 5-50 1742-6) AST(SGOT) (test code = 27 U/L 13-40 7453329608) eGFR (test code = mL/min/1.73m2 4995235469) ALANNA (test code = ALANNA) Association of Glomerular Filtration Rate (GFR) and Staging of Kidney Disease* + --+ --+ ------+| GFR (mL/min/1.73 m2) ?| With Kidney Damage ?| ?Without Kidney Damage+ --------+ --------+ +| ?>90 ?| ?Stage one ?| ? Normal ?+ ---+ ---+ -------+| ?60-89 ?| ?Stage two ?| ? Decreased GFR ? + --+ --+ ------+| ?30-59 ?| ?Stage three ?| ? Stage three ? + --+ --+ ------+| ?15-29 ?| ?Stage four ? | ? Stage four ?+ ---+ ---+ -------+| ?<15 (or dialysis) ? ?| ?Stage five ? | ? Stage five ?+ ---+ ---+ -------+ *Each stage assumes the associated GFR level has been in effect for at least three months. ?Stages 1 to 5, with or without kidney disease, indicate chronic kidney disease. Notes: Determination of stages one and two (with eGFR >59mL/min/1.73 m2) requires estimation of kidney damage for at least three months as defined by structural or functional abnormalities of the kidney, manifested by either:Pathological abnormalities or Markers of kidney damage (including abnormalities in the composition of the blood or urine or abnormalities in imaging tests). Lab Interpretation Abnormal (test code = 04309-0) [facility] WITH [id number] 17:15:43 Test Item Value Reference Range Interpretation Comments WBC (test code = See_Comment [Automated 9449-2) message] The sy stem which generated this result transmitted reference range : 4.20 - 10.70 10*3/?L. The reference range was not used to interpret this result as normal/abnormal . RBC (test code = See_Comment [Automated 044-8) message] The sy stem which generated this result transmitted reference range : 4.26 - 5.52 10*6/?L. The reference range was not used to interpret this result as normal/abnormal . HGB (test code = 12.2 g/dL 12.2-16.4 718-7) HCT (test code = 37.3 % 38.4-49.3 L 4544-3) MCV (test code = 87.6 fL 81.7-95.6 787-2) MCH (test code = 28.6 pg 26.1-32.7 785-6) MCHC (test code = 32.7 g/dL 31.2-35.0 786-4) RDW-SD (test code = 45.4 fL 38.5-51.6 62895-0) RDW-CV (test code = 14.1 % 12.1-15.4 788-0) PLT (test code = See_Comment [Automated 777-3) message] The sy stem which generated this result transmitted reference range : 150 - 328 10*3/ ?L. The reference r dori was not used to interpret this result as normal/abnormal . MPV (test code = 10.4 fL 9.8-13.0 46818-0) NRBC/100 WBC (test See_Comment [Automat ed code = 0450736960) message] The system which generated this result transmitted reference range : 0.0 - 10.0 /100 WBCs. The refer ence range was not u sed to interpret th is result as normal/abnormal . NRBC x10^3 (test code <0.01 See_Comment [Auto mated = 0958776824) message] The s ystem which generated this result transmitted reference range : 10*3/?L. The reference range was not used to interpret this result as normal/abnormal . GRAN MAT (NEUT) % 60.9 % (test code = 770-8) IMM GRAN % (test code 0.30 % = 4178106323) LYMPH % (test code = 22.6 % 736-9) MONO % (test code = 12.1 % 5905-5) EOS % (test code = 3.8 % 713-8) BASO % (test code = 0.3 % 706-2) GRAN MAT x10^3(ANC) 5.58 10*3/uL 1.99-6.95 (test code = 9533030893) IMM GRAN x10^3 (test 0.03 10*3/uL 0.00-0.06 code = 9935531231) LYMPH x10^3 (test code 2.07 10*3/uL 1.09-3.23 = 731-0) MONO x10^3 (test code 1.11 10*3/uL 0.36-1.02 H = 742-7) EOS x10^3 (test code = 0.35 10*3/uL 0.06-0.53 711-2) BASO x10^3 (test code 0.03 10*3/uL 0.01-0.09 = 704-7) Lab Interpretation Abnormal (test code = 18478-1) [facility] [id number] 09:30:00 Test Item Value Reference Range Interpretation Comments POC-Glucose Meter (test 121 mg/dL 70-110 H : TE STED AT [facility] code = 1538) [address] [facility], [address] 30: [employer] Farm Journal/Techni nan ID = [id number] for MEDINA LOURDESARELIS Truong Lab Interpretation (test Abnormal code = 77057-2) [facility]-GLUCOSE [id number] 09:30:00 Test Item Value Reference Range Interpretation Comments POC-GLUCOSE METER 121 mg/dL 70-110 H : TESTED A T [facility] 6720 (BEAKER) (test code = TEAJL Avila [facility], 1538) [address]: [employer] Journal/Techni nan ID = [id number] for ED LESLI WEISS SARS-CoV2/RT-PCR (Asymptomatic ONLY)2021-01-17 00:14:00 Test Item Value Reference Range Interpretation Comments SARS-COV2/RT-PCR (test Negative Negative code = 05477-8) ALANNA (test code = ALANNA) Negative result for this test determines that SARS-CoV-2 RNA was not present in the specimen above the Limit of Detection (LOD). However, Negative results do not preclude SARS-CoV-2 infection and should not be used as the sole basis for treatment or patient management decisions. Negative results must be combined with clinical observations, patient history, and epidemiological information. A false negative result may occur if a specimen is improperly collected, transported, or handled. A false negative result should be considered if patient's recent exposures or clinical presentation indicate that COVID-19 (SARS-CoV-2) is likely and diagnostic tests for other causes of illness are negative. Re-testing should be considered in cases of suspected false negatives. The limit of detection for this assay is 100 copies/mL. This SARS-CoV-2 test is a real-time RT_PCR test intended for the qualitative detection of nucleic acid from SARS-CoV-2 in a nasopharyngeal swab specimen collected from individuals suspected of COVID-19 by their healthcare provider. This test has not been Food and Drug Administration (FDA) cleared or approved. This is a modified version of an approved Emergency Use Authorization (EUA) and is in the process of review by the FDA. Once authorized by the FDA, the issued EUA will be effective until the declaration that circumstances exist justifying the authorization of the emergency use of in vitro diagnostic tests for detection and/or diagnosis of COVID-19 is terminated under Section 564(b)(2) of the Act or the EUA is revoked under Section 564(g) of the Act. Testing was performed using the Cote SARS-CoV-2 assay. Fact Sheet for Healthcare Providers:https://www.saurabh hoangcote/sarahi/RT SARS-CoV-2 HCP Fact Sheet 51-714479.pdf Fact Sheet for Healthcare Patients:https://www.armond [employer] [place]/sarahi/RT SARS-CoV-2 Patient Fact Sheet EN 51-986762J5.pdf Lab Interpretation Normal (test code = 10722-4) [facility]2021-01-17 00:14:00 Test Item Value Reference Range Interpretation Comments SARS-COV2/RT-PCR (test code = Negative Negative 8565803) Negative result for this test determines that SARS-CoV-2 RNA was not present in the specimen above the Limit of Detection (LOD). However, Negative results do not preclude SARS-CoV-2 infection and should not be used as the sole basis for treatment or patient management decisions. Negative results must be combined with clinical observations, patient history, and epidemiological information. A false negative result may occur if a specimen is improperly collected, transported, or handled. A false negative result should be considered if patient's recent exposures or clinical presentation indicate that COVID-19 (SARS-CoV-2) is likely and diagnostic tests for other causes of illness are negative. Re-testing should be considered in cases of suspected false negatives.The limit of detection for this assay is 100 copies/mL.This SARS-CoV-2 test is a real-time RT_PCR test intended for the qualitative detection of nucleic acid from SARS-CoV-2 in a nasopharyngeal swab specimen collected from individuals suspected of COVID-19 by their healthcare provider.This test has not been Food and Drug Administration (FDA) cleared or approved. This is a modified version of an approved Emergency Use Authorization (EUA) and is in the process of review by the FDA. Once authorized by the FDA, the issued EUA will be e ffective until the declaration that circumstances exist justifying the authorization of the emergency use of in vitro diagnostic tests for detection and/or diagnosis of COVID-19 is terminated under Section 564(b)(2) of the Act or the EUA is revoked under Section 564(g) of the Act.Testing was performedusing the Cote SARS-CoV-2 assay.Fact Sheet for Healthcare Providers:https://www.Compass.Crosswise/sarahi/RT SARS-CoV-2 HCP Fact Sheet 51- 679943.pdfFact Sheet for Healthcare Patients:https://www.Compass.Crosswise/sarahi/RT SARS-CoV-2 Patient Fact Sheet EN 51-552474U7.pdfBASIC METABOLIC [id number] 12:41:00 Test Item Value Reference Range Interpretation Comments SODIUM (BEAKER) 137 meq/L 136-145 (test code = 381) POTASSIUM (BEAKER) 4.3 meq/L 3.5-5.1 (test code = 379) CHLORIDE (BEAKER) 102 meq/L 98-107 (test code = 382) CO2 (BEAKER) (test 25 meq/L 22-29 code = 355) BLOOD UREA NITROGEN 19 mg/dL 7-21 (BEAKER) (test code = 354) CREATININE (BEAKER) 1.06 mg/dL 0.57-1.25 (test code = 358) GLUCOSE RANDOM 144 mg/dL 70-105 H (BEAKER) (test code = 652) CALCIUM (BEAKER) 9.4 mg/dL 8.4-10.2 (test code = 697) EGFR (BEAKER) (test 67 mL/min/1.73 ESTIMA DELORES GFR IS code = 1092) sq m NOT ACCURATE CREATININE CLEARANCE IN PREDICTING GLOMERULAR FILTRATION RATE . ESTIMATED GFR I S NOT APPLICABLE FOR DIALYSIS PATIEN TS. [employer] ID - KEDAR [id number] 12:13:00 Test Item Value Reference Range Interpretation Comments HEMOGLOBIN (BEAKER) (test code = 11.8 GM/DL 13.7-17.5 L 410) [employer] ID - CherylTissue [id number] 14:26:00 Test Item Value Reference Range Interpretation Comments Case Report (test code Surgical Pathology = 104) Report Case: [id number] Authorizing Provider: Fransisco Martinez DPM Collected: 12/08/2020 05:13 PM Ordering Location: [facility] Received: 12/09/2020 08:04 AM SERVICES Pathologist: Ksenia Gallego MD Specimen: Toe, Left, Left distal 2nd digit toe DIAGNOSIS (test code = z1itvCIzPQZcd1umGLKlrLH 3220) uZzEwMzNcZnRuYmpcdWMxIH tccnRmMVxlcGljOTIwMlxhb pYsSWSkkTDdR4IrizghLPgw YW3nGZ9ftWzlhCIkmKKaKHM oJhBcr5lcj486pCCes2jwEO QUtkiwjQo4eEbxH46mz3P1G psmD34eaSBlGBgknTHfkjvg inYwGIFHF2SeCZuBNiBaIVK AU4QQFBAfOePqLQiKSMKfNS GVEYXGBOENY852REMwajFkV WCECEJKWjBMVaKaB5ICGkCE HPKMM07wUPfBJ5OCVMIdkzY wSBIWLvXWLb2YCpPFVNIAVE NZSOWPHsTQW8pVAVDDNPWNN kFOVUxBVElPTiBUSVNTVUUg VFZADOPYH31XJR9QRSjeRUC eEG0cL0rKZkggX28OIKIXYT IGMWVwGY7YSUGCKrZxXZOVP 4wHRzLKUbHzAN7VRU4VLoeX QkxFXHBhciAgLSBORUdBVEl THVNLB0AzOBQUAZbTMK7BVX mpDRLhDTlcGAO5v1bodRNdI HNzdGUxODAwMFxhbnNpXGRl MvnofbnsBNEpMIY8ogHhXXK bYJqcVPBnXUfwGm3rhBRxeR jpJvSdZZJiy8ainxAEbweol An9t0gnQAKcJpE8nAJxUTal H7rcxxZhyJVcJXMjRZk0qY7 7FYKkaN5hrEOmRHxfccJfSj K2EBxkTEEbOkQ8PJIquKLwI OKsR8auUSFvYYtoCRWlQMvt nVDcAZZ2pAmul5R4bKOtbDU fcNusFpCyZcUmTvMDm8JrWV i2cKqkN9QsNEVwOdZ9vIEsX QTbJHltHFIjVPDulnJ3aK43 TSmpkfH5qHDfj2Fxx79yx19 2fL6wzZAoARI1QBFwCEGrgZ OcIKLrGLG9CLCblZFpX7jnX HNrRD9aiyvyPYylDQsoUFEi rEA0SUBxiRVlA1MbZNFrXAl eGEYvrgq6VmIrNr2gyGCojR awIJjbj3gam9asdFSrYbw7R MXwSjOlThjdFDaak0Mgx4jo OLJnjo5xFZS9lSPmoTpqu4K 1dEQsMWOafLTaJTTuLE2aeA HbVLCulT2vxnszNQZnXkKik bgqWZPcwVpaayQbOy9arEsq SOO2NUutZ4enwN6vZsJ8IId jA4pjhP1fAQn3DBnjCHWwfW S7bfA6TAAsrTFdW8IpiJ5wI XOjMN7tzls9m0piKFH2LUdz YYKjBpE0tyR6YURyeBQbMMK ktQshWVton202SHJ2SgRsPN Xax3KyK7TeaAguQ24gcWlxH 55yZUHtlIlcuP5ruFjasU9c NgTjBvRgCUjzdUwuSV6uBXZ hF1lrkYOeRJRaFXTeV6xnCo ZgxL2tjCjuQTbnczFqKHNsQ ok5ECVeiFSeQHAnSmc1ISRy RZUwZ23gxpqqIAU0qD1cs2h qb5NuQYupNXA1HCUbh84oAR pofnA3PIcnJa3zJOIlAFTsF IztBMZ9jX== COMMENT (test code = l5sunXIfWWFeiNE8MuRjIAK 335) pe7ytd4TeaPGyzZKtMHevrN MzzjLjtp48uYH3gF89PK1kA BJsOpE4PVQljxY4Lew8SYJc ZESyzGLsM369x5fqm6ilqnU lpCW4rNvuKDIeDJRxLCpeSY DzWbCpU59ee7pbhQFwmEQ5z QRkKQKtfn4tkDJnu9G7HA9c qRHpyRJvuf7eBSL3uGElr1N 7MR7ulARzwKHbnoIskrUxj8 KnKSMfdO6cmVTzuOXxfmPnI R92KLqxCWWukZCsq3TrsMzv blxwYXJ9 CPT Code(s) (test code d4nhcGZpMUFxrIH8VjEpEYQ = 3357) et4aiu9GhlVYggQTgDTzggI NtywQndg29cIX2nX28IA6vW ISiQmQ7TJYholC8Foq8EQOm DREbgEOlC047c2jgq0bmgnY jrBY7sCxlEZDiUFOuYGmvHP PbPiZiUBkeSZA6ABe6UrBjF HBhcn0= CLINICAL HISTORY (test e2tbeZItYZMroPL6QlTvRMF code = 3356) yy5aiq3MqvODlvJPhPXunlA VxldXzxc05lHS4pP74NU8hF KMgNjQ5QDUlafA3Let6HIWj BPWjwHToV161v6vcg7bwagH xaYB2cZduNARfQCSfJKrdHO KsYjZmMYmqHWGrs9BptKTti ZZiv065VWWqiw5= SPECIMEN SOURCE (test q2slaDXtTDNohPS7IzIlHIQ code = 3377) br5kxb6PakJQccVZpZQfrqQ AplzPbsa38iTB8uT12AJ1uK JCaKlS0FOAmmoN4Ajw9YZGx JYTotHDvF371w6gnu7htktW qpZQ3gWmkVQTkRTDeAEgzZJ QgWdBtUY7tLZDsRFR5UQVzi n0= GROSS DESCRIPTION w6lhaDEqQFBaoHRdImZnDOD (test code = 3366) rUSMxw7xnHLHncQEwFiSgGi NcZnRuYmpcdWMxXGRlZmYwe 8npi414vCLyw3glVSPgPyA6 lWAaUDBkxRFmB004w1ggk8m lsdSqqGB7BFCcDCR8YIznri BaurH1BXdppWUbDnY9FBhyr fNbYYcqzwLjvxRtSgg8XIWg H401DUM8aTgpi7spBGZ4TEO aEMMeNtTtHm1fdVRiI392ST AjGGKFZQLssBj5RKUcbkGdk cVfrHQAe433J979l4reRRHu jbLxpNtHabdqu5gnE599CZB hcGVydzEyMjQwXHBhcGVyaD A0IMKmWN9xcnngJjAoNN0bz oogLeRlVR2uzas4LyUkIE9w cmdiNzIwXGhlYWRlcnkwXGZ is1LontqcFY1hF7Vii7Q2sU 9maXRcZGVmdGFiNzIwXGZvc t7neTZzLYhad4ClNUN9cvN8 pCLsdVUvVDYhGQ79Fctzf7L qAufwEJX5EWDdarBkh7Xop5 syOjTjlvZyE9quI1QbMYMzF EMlPEIfMbUeefPao6Bln3Lf gMUrvAu0o3miNOAcKXBqvKb eb2umJHK7MWQqF5M5cZPnx3 vuUTtxRQZafSU6idjlRUspA BDejcM6bvxgJNdmXHSreHU3 tejiZJxgIDZhRfA5ughpVQh cNAHnHPM8OFftc851YGC3VH xzYmtwYWdlXHBnbmNvbnRcc GduZGVjXHBsYWluXHBsYWlu XGYwXGZzMjRccWxccGxhaW5 eEpUdSmIxZDtcQP4aMRBgB2 unnFUiUUIvHIUmQ4pjMkKlo S3npMudYGktynSwGWFnGDCh R8WfonQnFMIdBTIwTWsnFmW bUIZbi4q2oWL7lYUdcLQ0rG GrvHkyMuIbSA4svNPpFB7zJ HxoLFvvxyNyv5GsDD21dYOr ciBhbmQgInRvZSwgbGVmdCI mcCEmHYRxeINynbQsF8SuGQ NxTABmbPX7FKvsfM8nGG4mQ KY3dbiaHbGpZKQtAWvcIQsx szk5jAVogdPlPnKqnWHmbsW kaAJyGENefr2qSNRoENDzDN wiOCDzZQN2oIKgsWPgPXPyv jR3LEdxcEcnkyR5utx2hCEa ICBUaGUgcGxhbnRhciBzdXJ qXFVaHUKcf0JgXFozXXIkOE L9VYNxtCSjAbFwS19cyVCjc 3JyaGFnaWMgdWxjZXIgdGhh bPEgzCUtz7CfnTKjMNMyEVQ vw0svTL6lyonuxwEqKbn0YH hbKZBaTJOmlhNmPlLuL15fY sFblKL2iWJsHOaxFVT3uIY8 jDF2SGVsFS7gUjHmPWycTPO abGLxjkyuQsRes6caNZxaNF lcNYtut6cjwSDvCHy5nRVtx 2IqNBOmkPkeRNWgRTKnG9Tg xP7tTLDpEHH1iaVojwx0fO7 cYLNjuhUgjLAvfOTanZ97DR Pcp02cD7Rrm6MrJARzUSA1k aUwNBN8vKS9SUTkIJPLWMSg VUBhrxFibKc8UDMmPWT0jV0 zycZzlxZzp3FxkBk1cPQeHs poEGGdxWIoDPCiP7Flj05nE 29kZTpccGFyIEExOiBVbGNl whR9ryAotZ8tINO7CLTobJ4 axFDeS4vkKAMoLTBlAD7ymZ K1tEHvSNFoE8Cmy19kSJQbt aMfUNxxDEW8lTO0lCO6UOJr EQ9eREGwigBlCFKaCRNzr5s fb7mfsrhsFVUrBFsbeBBaE9 Y8sF3xUNLyysKNDqzrUXgmC KMfi3a4tSD1ymYyopt4aF6t FYWlppQhXQHsrVhoy5vsBqC dSTHgaBOoIpkgKMMct98boX OwARYiziLWaDXax2TsSCsnI ZRbXKMJRGLkPKXCJGxLN7ZJ KWNtXHBhcn0= MICROSCOPIC y5uyjOGmUDWtsXF9MwKoTWE DESCRIPTION (test code yz1ypp9KzmCAdzWOqVAqzyH = 3371) KiggDzwe68cPH4xS99PD8rL PJlDnJ3HKFtefF1Pei0GFPn HHMhcDFjW121l7zcc8nxaoX tbXB3rBopMTBzZHApDJfpXC BiTdCzCRBVSp4EUIIAMHMtj n0= [facility] [id number] 14:26:00Surgical Pathology Report Case: [id number] Authorizing Provider: Fransisco Martinez DPM Collected: 12/08/2020 05:13 PM Ordering Location: [facility] Received: 12/09/2020 08:04 AM SERVICES Pathologist: Ksenia Gallego MD Specimen: Toe,Left, Left distal 2nd digit toe FOOT, LEFT, DISTAL 2ND DIGIT, AMPUTATION: - ULCER AND GRANULATION TISSUE - INTER-TRABECULAR FIBROSIS AND GRANULATION TISSUE (SEE COMMENT) - SKIN, SOFT TISSUE AND BONE MARGINS ARE UNREMARKABLE - NEGATIVE FOR MALIGNANCY Signing Pathologist Direct Phone Line: [phone] signed by Ksenia Gallego MD on 12/26/2020 at 2:25 PMConsistent with chronic osteomyelitis. Acute osteomyelitis is not definitely present in this [id number]; 91308Pxbwb of left footToe, leftA. Received fresh labeled with the patient's name, medical record number and "toe, left" is a disarticulated distal toe measuring 1 cmin length and 2 cm in diameter. There is an attached, basurto- yellow unguis. The plantar surface displays a 1 x 1 x 0.1 cm hemorrhagic ulcer that approaches the skin margin (blue), and is 1.5 cm from the disarticulated end. The remaining skin is basurto-white, hyperkeratotic and scaly. The underlying bone is yellow, homogenous and trabeculated. Manager Delivery sections are submitted.Section code:A1: Ulcer to closest skin margin, perpendicular sections, and disarticulated end, en face, following decalcificationA2: Ulcer with underlying bone, following decalcificationChelsea INDIO Mane, TELMA (ASCP)cmPERFORMEDSurgically obtained culture + gram [id number] 11:53:00 Test Item Value Reference Range Interpretation Comments Result (test code = From Broth Only A 6463-4) Coagulase negative Staphylococcus Gram Stain Result (test No organisms seen code = 1123) ALANNA (test code = ALANNA) Lab Interpretation Abnormal (test code = 14182-6) [facility] [id number] 11:53:00 Test Item Value Reference Range Interpretation Comments CULTURE A From Broth Only (BEAKER) (test Coagulase neg ative code = 1095) Staphylococcus GRAM STAIN <1+ WBCs RESULT (BEAKER) (test code = 1123) GRAM STAIN No organisms seen RESULT (BEAKER) (test code = 960058) Anaerobic [id number] 08:04:00 Test Item Value Reference Range Interpretation Comments Result (test code = No anaerobes isolated 6463-4) [facility] [id number] 08:04:00 Test Item Value Reference Range Interpretation Comments CULTURE (BEAKER) (test No anaerobes isolated code = 1095) Blood Culture # 16:00:00 Test Item Value Reference Range Interpretation Comments Result (test code = No growth in 5 days 6463-4) [facility] Center[facility] [id number] 16:00:00 Test Item Value Reference Range Interpretation Comments CULTURE (BEAKER) (test No growth in 5 days code = 1095) BLOOD [id number] 16:00:00 Test Item Value Reference Range Interpretation Comments CULTURE (BEAKER) (test No growth in 5 days code = 1095) POCT-GLUCOSE [id number] 07:40:00 Test Item Value Reference Range Interpretation Comments POC-GLUCOSE METER 130 mg/dL 70-110 H : TESTED A T [facility] 67[facility] (BEAKER) (test code = TEJAL Avila MARTINEZ [place], 1538) [id number]: [employer]/Techni nan ID = [id number] for MILAD PRUETT BASIC METABOLIC [id number] 05:04:00 Test Item Value Reference Range Interpretation Comments SODIUM (BEAKER) 135 meq/L 136-145 L (test code = 381) POTASSIUM (BEAKER) 4.2 meq/L 3.5-5.1 (test code = 379) CHLORIDE (BEAKER) 102 meq/L 98-107 (test code = 382) CO2 (BEAKER) (test 26 meq/L 22-29 code = 355) BLOOD UREA NITROGEN 15 mg/dL 7-21 (BEAKER) (test code = 354) CREATININE (BEAKER) 0.85 mg/dL 0.57-1.25 (test code = 358) GLUCOSE RANDOM 142 mg/dL 70-105 H (BEAKER) (test code = 652) CALCIUM (BEAKER) 8.6 mg/dL 8.4-10.2 (test code = 697) EGFR (BEAKER) (test 87 mL/min/1.73 ESTIMA DELORES GFR IS code = 1092) sq m NOT ACCURATE CREATININE CLEARANCE IN PREDICTING GLOMERULAR FILTRATION RATE . ESTIMATED GFR I S NOT APPLICABLE FOR DIALYSIS PATIEN TS. 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 There is an expected postoperative appearance of interval amputation of the distal phalanx of the second toe. There is nounexpected radiopaque foreign body. Vascular calcifications are present in the lower leg, ankle and foot. Signed: [facility]cam[facility] Verified Date/Time: 12/09/2020 04:32:54 POCT- GLUCOSE [id number] 21:22:00 Test Item Value Reference Range Interpretation Comments POC-GLUCOSE METER 245 mg/dL 70-110 H : TESTED A T [facility] 6720 ([place]as[place]) (test code = [facility], 1538) [id number]: [employer]/Techni nan ID = [id number] for Rick Moreno POCT-GLUCOSE [id number] 18:05:00 Test Item Value Reference Range Interpretation Comments POC-GLUCOSE METER 129 mg/dL 70-110 H : TESTED A T [facility] 6720 ([place]im) (test code = [facility], 1538) [id number]: [employer]/Techni nan ID = [id number] for Tash Mata POCT-GLUCOSE [id number] 13:50:00 Test Item Value Reference Range Interpretation Comments POC-GLUCOSE METER 140 mg/dL 70-110 H : TESTED A T [facility] 6720 (BARTOLOAKER) (test code = TEJAL [place], 1538) [id number]: Editor Farm Journal/Techni nan ID = [id number] for Lyly Cedeno POCT-GLUCOSE [id number] 09:44:00 Test Item Value Reference Range Interpretation Comments POC-GLUCOSE METER 140 mg/dL 70-110 H : TESTED A T [facility] 6720 (LALO) (test code = TEJAL Avila [facility], 1538) [address]: Editor Farm Journal/Techni nan ID = [id number] for Lyly Cedeno WOUND CULTURE + GRAM [id number] 08:55:00 Test Item Value Reference Range Interpretation Comments CULTURE (LALO) PSEUDOMONAS A 3+ Pseudomo jia (test code = 1095) AERUGINOSA aeruginos a Amikacin (test code See_Comment S [Automa delores = 1) message] The system which generated this result transmitted reference range : Susceptible 0-1 6 , Resistant <0 or >16 . The reference range was not used to interpret this result as normal/abnormal . Aztreonam (test code See_Comment S [Autom ated = 32) message] The system which generated this result transmitted reference range : Susceptible 0-8 , Resistant <0 or >8 . The reference range was not used to interpret this result as normal/abnormal . Cefepime (test code See_Comment S [Automa delores = 51) message] The system which generated this result transmitted reference range : Susceptible 0-8 , Resistant <0 or >8 . The reference range was not used to interpret this result as normal/abnormal . Ceftazidime (test See_Comment S [Automate d code = 27) message] The system which generated this result transmitted reference range : Susceptible 0-8 , Resistant <0 or >8 . The reference range was not used to interpret this result as normal/abnormal . Ciprofloxacin (test See_Comment R [Automa delores code = 7) message] The system which generated this result transmitted reference range : Susceptible 0-0 .5 , Resistant <0 or >.5 . The reference range was not used to interpret this result as normal/abnormal . Doripenem (test code See_Comment S [Autom ated = 100) message] The system which generated this result transmitted reference range : Susceptible 0-2 , Resistant <0 or >2 . The reference range was not used to interpret this result as normal/abnormal . Gentamicin (test See_Comment S [Automated code = 18) message] The system which generated this result transmitted reference range : Susceptible 0-4 , Resistant <0 or >4 . The reference range was not used to interpret this result as normal/abnormal . Imipenem (test code See_Comment S [Automa delores = 19) message] The system which generated this result transmitted reference range : Susceptible 0-2 , Resistant <0 or >2 . The reference range was not used to interpret this result as normal/abnormal . Levofloxacin (test See_Comment S [Automat ed code = 22) message] The system which generated this result transmitted reference range : Susceptible 0-1 , Resistant <0 or >1 . The reference range was not used to interpret this result as normal/abnormal . Meropenem (test code See_Comment S [Autom ated = 34) message] The system which generated this result transmitted reference range : Susceptible 0-2 , Resistant <0 or >2 . The reference range was not used to interpret this result as normal/abnormal . Piperacillin (test See_Comment S [Automat ed code = 24) message] The system which generated this result transmitted reference range : Susceptible 0-1 6 , Resistant <0 or >16 . The reference range was not used to interpret this result as normal/abnormal . Piperacillin + See_Comment S [Automated Tazobactam (test message] Th e code = 29) system which generated this result transmitted reference range : Susceptible 0-1 6 , Resistant <0 or >16 . The reference range was not used to interpret this result as normal/abnormal . Tobramycin (test See_Comment S [Automated code = 25) message] The system which generated this result transmitted reference range : Susceptible 0-4 , Resistant <0 or >4 . The reference range was not used to interpret this result as normal/abnormal . GRAM STAIN RESULT <1+ WBCs (BEAKER) (test code = 1123) GRAM STAIN RESULT 1+ gram negative (BEAKER) (test code rods = 294355) GRAM STAIN RESULT 1+ budding yeast (BEAKER) (test code with pseudohyphae = 288506) GRAM STAIN RESULT 2+ gram positive (BEAKER) (test code cocci in pairs and = 328432) clusters 1+ Skin floraBASIC METABOLIC [id number] 07:05:00 Test Item Value Reference Range Interpretation Comments SODIUM (BEAKER) 134 meq/L 136-145 L (test code = 381) POTASSIUM (BEAKER) 3.8 meq/L 3.5-5.1 (test code = 379) CHLORIDE (BEAKER) 101 meq/L 98-107 (test code = 382) CO2 (BEAKER) (test 25 meq/L 22-29 code = 355) BLOOD UREA NITROGEN 13 mg/dL 7-21 (BEAKER) (test code = 354) CREATININE (BEAKER) 0.83 mg/dL 0.57-1.25 (test code = 358) GLUCOSE RANDOM 146 mg/dL 70-105 H (BEAKER) (test code = 652) CALCIUM (BEAKER) 8.3 mg/dL 8.4-10.2 L (test code = 697) EGFR (BEAKER) (test 89 mL/min/1.73 ESTIMA DELORES GFR IS code = 1092) sq m NOT ACCURATE CREATININE CLEARANCE IN PREDICTING GLOMERULAR FILTRATION RATE . ESTIMATED GFR I S NOT APPLICABLE FOR DIALYSIS PATIEN TS. Editor Farm Journal ID - AAHAMIDCBC with platelet count + automated [id number] 06:49:00 Test Item Value Reference Range Interpretation Comments WBC (test code = 6690-2) 7.5 See_Comment [A utomated message] The system Namely generated this result transmitted ref erence range: 3.5 - 10 .5 K/L. The refe rence range was not u sed to interpret this result as normal/abnor mal. RBC (test code = 789-8) 4.40 See_Comment L [Au tomated message] The system Namely generated this result transmitted ref erence range: 4.63 - 6 .08 M/L. The refe rence range was not u sed to interpret this result as normal/abnor mal. MCHC (test code = 786-4) 32.6 See_Comment L [A utomated message] The system Namely generated this result transmitted ref erence range: 32.3 - 3 6.5 GM/DL. The refe rence range was not u sed to interpret this result as normal/abnor mal. Hematocrit (test code = 38.3 % 40.1-51.0 L 4544-3) MCV (test code = 787-2) 87.0 fL 79.0-92.2 MCH (test code = 785-6) 28.4 pg 25.7-32.2 RDW (test code = 788-0) 14.8 % 11.6-14.4 H Platelets (test code = 245 See_Comment [Aut omated message] 777-3) The system Namely generated this result transmitted ref erence range: 150 - 45 0 K/CU MM. The referen ce range was not u sed to interpret this result as normal/abnor mal. MPV (test code = 10.2 fL 9.4-12.4 50818-7) nRBC (test code = 413) 0 See_Comment [Aut omated message] The system Namely generated this result transmitted ref erence range: 0 - 0 /1 00 WBC. The refere nce range was not u sed to interpret this result as normal/abnor mal. % Neutros (test code = 52 % 429) % Lymphs (test code = 27 % 430) % Monos (test code = 15 % 431) % Eos (test code = 432) 5 % % Baso (test code = 437) 1 % # Neutros (test code = 3.85 See_Comment [Aut omated message] 670) The system Namely generated this result transmitted ref erence range: 1.78 - 5 .38 K/L. The refe rence range was not u sed to interpret this result as normal/abnor mal. # Lymphs (test code = 1.98 See_Comment [Auto mated message] 414) The system Namely generated this result transmitted ref erence range: 1.32 - 3 .57 K/L. The refe rence range was not u sed to interpret this result as normal/abnor mal. # Monos (test code = 1.14 See_Comment H [Autom ated message] 415) The system Namely generated this result transmitted ref erence range: 0.30 - 0 .82 K/L. The refe rence range was not u sed to interpret this result as normal/abnor mal. # Eos (test code = 416) 0.38 See_Comment [Au tomated message] The system Namely generated this result transmitted ref erence range: 0.04 - 0 .54 K/L. The refe rence range was not u sed to interpret this result as normal/abnor mal. # Baso (test code = 417) 0.05 See_Comment [A utomated message] The system Namely generated this result transmitted ref erence range: 0.01 - 0 .08 K/L. The refe rence range was not u sed to interpret this result as normal/abnor mal. Immature 1 % 0-1 Granulocytes-Relative (test code = 2801) Lab Interpretation (test Abnormal code = 12864-2) [facility] W/PLT COUNT & AUTO [id number] 06:49:00 Test Item Value Reference Range Interpretation Comments WHITE BLOOD CELL COUNT (BEAKER) 7.5 K/ L 3.5-10.5 (test code = 775) RED BLOOD CELL COUNT (BEAKER) 4.40 M/ L 4.63-6.08 L (test code = 761) HEMOGLOBIN (BEAKER) (test code = 12.5 GM/DL 13.7-17.5 L 410) HEMATOCRIT (BEAKER) (test code = 38.3 % 40.1-51.0 L 411) MEAN CORPUSCULAR VOLUME (BEAKER) 87.0 fL 79.0-92.2 (test code = 753) MEAN CORPUSCULAR HEMOGLOBIN 28.4 pg 25.7-32.2 (BEAKER) (test code = 751) MEAN CORPUSCULAR HEMOGLOBIN CONC 32.6 GM/DL 32.3-36.5 (BEAKER) (test code = 752) RED CELL DISTRIBUTION WIDTH 14.8 % 11.6-14.4 H (BEAKER) (test code = 412) PLATELET COUNT (BEAKER) (test 245 K/CU MM 150-450 code = 756) MEAN PLATELET VOLUME (BEAKER) 10.2 fL 9.4-12.4 (test code = 754) NUCLEATED RED BLOOD CELLS 0 /100 WBC 0-0 (BEAKER) (test code = 413) NEUTROPHILS RELATIVE PERCENT 52 % (BEAKER) (test code = 429) LYMPHOCYTES RELATIVE PERCENT 27 % (BEAKER) (test code = 430) MONOCYTES RELATIVE PERCENT 15 % (BEAKER) (test code = 431) EOSINOPHILS RELATIVE PERCENT 5 % (BEAKER) (test code = 432) BASOPHILS RELATIVE PERCENT 1 % (BEAKER) (test code = 437) NEUTROPHILS ABSOLUTE COUNT 3.85 K/ L 1.78-5.38 (BEAKER) (test code = 670) LYMPHOCYTES ABSOLUTE COUNT 1.98 K/ L 1.32-3.57 (BEAKER) (test code = 414) MONOCYTES ABSOLUTE COUNT (BEAKER) 1.14 K/ L 0.30-0.82 H (test code = 415) EOSINOPHILS ABSOLUTE COUNT 0.38 K/ L 0.04-0.54 (BEAKER) (test code = 416) BASOPHILS ABSOLUTE COUNT (BEAKER) 0.05 K/ L 0.01-0.08 (test code = 417) IMMATURE GRANULOCYTES-RELATIVE 1 % 0-1 PERCENT (BEAKER) (test code = 2801) POCT-GLUCOSE [id number] 21:27:00 Test Item Value Reference Range Interpretation Comments POC-GLUCOSE METER 171 mg/dL 70-110 H : TESTED A T [facility] 6720 (BEAKER) (test code = [facility], [facility]) [address]: Editor Farm Journal/Techni nan ID = [id number] for JARRED BOYD POCT-GLUCOSE [id number] 17:54:00 Test Item Value Reference Range Interpretation Comments POC-GLUCOSE METER 101 mg/dL 70-110 : TESTED A T [facility] 6720 (BEAKER) (test code = [facility], 153) 713[address]: Editor Farm Journal/Techni nan ID = [id number] for Ba iley, Sarah POCT-GLUCOSE [id number] 12:56:00 Test Item Value Reference Range Interpretation Comments POC-GLUCOSE METER 144 mg/dL 70-110 H : TESTED A T [facility] 6720 (BEAKER) (test code = [facility], 1538) [address]26[address]: Editor Farm Journal/Techni nan ID = [id number] for Ba iley, Sarah POCT-GLUCOSE [id number] 08:05:00 Test Item Value Reference Range Interpretation Comments POC-GLUCOSE METER 131 mg/dL 70-110 H : TESTED A T [facility] 6720 (BEAKER) (test code = [facility], 1538) [address]: Editor Farm Journal/Techni nan ID = [id number] for Sarah Durand BASIC METABOLIC [id number] 04:40:00 Test Item Value Reference Range Interpretation Comments SODIUM (BEAKER) 138 meq/L 136-145 (test code = 381) POTASSIUM (BEAKER) 4.2 meq/L 3.5-5.1 (test code = 379) CHLORIDE (BEAKER) 103 meq/L 98-107 (test code = 382) CO2 (BEAKER) (test 27 meq/L 22-29 code = 355) BLOOD UREA NITROGEN 12 mg/dL 7-21 (BEAKER) (test code = 354) CREATININE (BEAKER) 0.82 mg/dL 0.57-1.25 (test code = 358) GLUCOSE RANDOM 125 mg/dL 70-105 H (BEAKER) (test code = 652) CALCIUM (BEAKER) 8.7 mg/dL 8.4-10.2 (test code = 697) EGFR (BEAKER) (test 90 mL/min/1.73 ESTIMA DELORES GFR IS code = 1092) sq m NOT ACCURATE CREATININE CLEARANCE IN PREDICTING GLOMERULAR FILTRATION RATE . ESTIMATED GFR I S NOT APPLICABLE FOR DIALYSIS PATIEN TS. Editor Farm Journal ID - [place] WPOCT-GLUCOSE [id number] 21:04:00 Test Item Value Reference Range Interpretation Comments POC-GLUCOSE METER 124 mg/dL 70-110 H : TESTED A T [facility] 6720 (BEAKER) (test code = [facility], 1538) [address]: Editor Farm Journal/Techni nan ID = [id number] for JARRED BOYD POCT-GLUCOSE [id number] 17:34:00 Test Item Value Reference Range Interpretation Comments POC-GLUCOSE METER 123 mg/dL 70-110 H : TESTED A T [facility] 6720 (BEAKER) (test code = [facility], 1538) [address]: Editor Farm Journal/Techni nan ID = [id number] for Lexie MARIO Vancomycin level, [id number] 15:39:00 Test Item Value Reference Range Interpretation Comments Vancomycin Tr (test code = 10.2 ug/mL 10.0-20.0 4092-3) ALANNA (test code = ALANNA) Editor Farm Journal ID - ADMIN Lab Interpretation (test Normal code = 42068-2) [facility] Center[facility]AN[facility] LEVEL, [id number] 15:39:00 Test Item Value Reference Range Interpretation Comments VANCOMYCIN TROUGH (BEAKER) (test 10.2 ug/mL 10.0-20.0 code = 522) Editor Farm Journal ID - ADMINPOCT-GLUCOSE [id number] 11:47:00 Test Item Value Reference Range Interpretation Comments POC-GLUCOSE METER 170 mg/dL 70-110 H : TESTED A T [facility] 6720 (BEAKER) (test code = [facility] [place] [facility], 1538) [address]: Editor Farm Journal/Techni nan ID = [id number] for Lexie MARIO POCT-GLUCOSE [id number] 08:03:00 Test Item Value Reference Range Interpretation Comments POC-GLUCOSE METER 134 mg/dL 70-110 H : TESTED A T [facility] 6720 (BEAKER) (test code = [facility] [place] [facility], 1538) [address]: Editor Farm Journal/Techni nan ID = [id number] for Lexie MARIO Hemoglobin [id number] 07:46:00 Test Item Value Reference Range Interpretation Comments Hemoglobin A1C (test code = 4548-4) 6.5 % 4.3-6.1 H Lab Interpretation (test code = Abnormal 30170-3) [facility] CenterHEMOGLOBIN [id number] 07:46:00 Test Item Value Reference Range Interpretation Comments HEMOGLOBIN A1C (BEAKER) (test code = 6.5 % 4.3-6.1 H 368) [id number] 07:35:00 Test Item Value Reference Range Interpretation Comments Magnesium (test code = 2.1 mg/dL 1.6-2.6 58382-4) ALANNA (test code = ALANNA) Editor Farm Journal ID - BS Lab Interpretation (test Normal code = 09587-3) [facility] CenterBASIC METABOLIC [id number] 07:35:00 Test Item Value Reference Range Interpretation Comments SODIUM (BEAKER) 137 meq/L 136-145 (test code = 381) POTASSIUM (BEAKER) 4.1 meq/L 3.5-5.1 (test code = 379) CHLORIDE (BEAKER) 104 meq/L 98-107 (test code = 382) CO2 (BEAKER) (test 24 meq/L 22-29 code = 355) BLOOD UREA NITROGEN 13 mg/dL 7-21 (BEAKER) (test code = 354) CREATININE (BEAKER) 0.85 mg/dL 0.57-1.25 (test code = 358) GLUCOSE RANDOM 128 mg/dL 70-105 H (BEAKER) (test code = 652) CALCIUM (BEAKER) 8.4 mg/dL 8.4-10.2 (test code = 697) EGFR (BEAKER) (test 87 mL/min/1.73 ESTIMA DELORES GFR IS code = 1092) sq m NOT ACCURATE CREATININE CLEARANCE IN PREDICTING GLOMERULAR FILTRATION RATE . ESTIMATED GFR I S NOT APPLICABLE FOR DIALYSIS PATIEN TS. Editor Farm Journal ID - [id number] 07:35:00 Test Item Value Reference Range Interpretation Comments MAGNESIUM (BEAKER) (test code = 2.1 mg/dL 1.6-2.6 627) Editor Farm Journal ID - BSCBC W/PLT COUNT & AUTO [id number] 05:58:00 Test Item Value Reference Range Interpretation Comments WHITE BLOOD CELL COUNT (BEAKER) 8.0 K/ L 3.5-10.5 (test code = 775) RED BLOOD CELL COUNT (BEAKER) 4.08 M/ L 4.63-6.08 L (test code = 761) HEMOGLOBIN (BEAKER) (test code = 11.9 GM/DL 13.7-17.5 L 410) HEMATOCRIT (BEAKER) (test code = 36.8 % 40.1-51.0 L 411) MEAN CORPUSCULAR VOLUME (BEAKER) 90.2 fL 79.0-92.2 (test code = 753) MEAN CORPUSCULAR HEMOGLOBIN 29.2 pg 25.7-32.2 (BEAKER) (test code = 751) MEAN CORPUSCULAR HEMOGLOBIN CONC 32.3 GM/DL 32.3-36.5 (BEAKER) (test code = 752) RED CELL DISTRIBUTION WIDTH 14.8 % 11.6-14.4 H (BEAKER) (test code = 412) PLATELET COUNT (BEAKER) (test 228 K/CU MM 150-450 code = 756) MEAN PLATELET VOLUME (BEAKER) 10.1 fL 9.4-12.4 (test code = 754) NUCLEATED RED BLOOD CELLS 0 /100 WBC 0-0 (BEAKER) (test code = 413) NEUTROPHILS RELATIVE PERCENT 58 % (BEAKER) (test code = 429) LYMPHOCYTES RELATIVE PERCENT 23 % (BEAKER) (test code = 430) MONOCYTES RELATIVE PERCENT 11 % (BEAKER) (test code = 431) EOSINOPHILS RELATIVE PERCENT 7 % (BEAKER) (test code = 432) BASOPHILS RELATIVE PERCENT 1 % (BEAKER) (test code = 437) NEUTROPHILS ABSOLUTE COUNT 4.59 K/ L 1.78-5.38 (BEAKER) (test code = 670) LYMPHOCYTES ABSOLUTE COUNT 1.83 K/ L 1.32-3.57 (BEAKER) (test code = 414) MONOCYTES ABSOLUTE COUNT (BEAKER) 0.88 K/ L 0.30-0.82 H (test code = 415) EOSINOPHILS ABSOLUTE COUNT 0.55 K/ L 0.04-0.54 H (BEAKER) (test code = 416) BASOPHILS ABSOLUTE COUNT (BEAKER) 0.05 K/ L 0.01-0.08 (test code = 417) IMMATURE GRANULOCYTES-RELATIVE 1 % 0-1 PERCENT (BEAKER) (test code = 2801) POCT-GLUCOSE [id number] 20:28:00 Test Item Value Reference Range Interpretation Comments POC-GLUCOSE METER 72 mg/dL 70-110 : TESTED A T [facility] 6720 (BEAKER) (test code = [place], 1538) [address]: Editor Farm Journal/Techni nan ID = [id number] for Corz ine (contract), Mar y Lactic acid, venous [id number] 17:37:00 Test Item Value Reference Range Interpretation Comments Lactate, Venous (test code = 2.17 mmol/L 0.50-2.20 2871) ALANNA (test code = ALANNA) Editor Farm Journal ID - BS Lab Interpretation (test Normal code = 93863-8) [facility] HospitalLACT[facility] ACID, [id number] 17:37:00 Test Item Value Reference Range Interpretation Comments LACTATE BLOOD VENOUS (2) (BEAKER) 2.17 mmol/L 0.50-2.20 (test code = 2872) Editor Farm Journal ID - BSRAD, FOOT, MIN 3 VIEWS, [id number] 14:49:00Reason for exam:- >left 2nd toe wound [facility] CENTERName: KIP MARCH : 1940 Sex: MFINAL REPORT RAD, FOOT, MIN 3 VIEWS, LEFT INDICATION: left 2nd toe wound COMPARISON: None TECHNIQUE: AP and lateral oblique radiographs of the foot FINDINGS/IMPRESSION:No acute fracture. No radiopaque foreign body. Signed: Angelina Greene Verified Date/Time: 12/05/2020 14:49:31 Reading Location: [facility] Reading Room Comprehensive metabolic panel 2020-12-05 14:45:00 Test Item Value Reference Range Interpretation Comments Protein, Total (test 6.9 See_Comment [Autom ated code = 2885-2) message] The system which generated this result transmit delores reference range : 6.0 - 8.3 gm/dL . The reference range was not u sed to interpret th is result as normal/abnormal . Albumin (test code = 4.0 g/dL 3.5-5.0 36972-1) Alkaline Phosphatase 59 U/L 40-150 (test code = 6768-6) Total Bilirubin (test 0.6 mg/dL 0.2-1.2 code = 1975-2) Sodium (test code = 136 meq/L 744-037 4123-2) Potassium (test code 4.1 meq/L 3.5-5.1 = 2823-3) Chloride (test code = 100 meq/L 98-107 5-0) CO2 (test code = 25 meq/L -2027-) BUN (test code = 16 mg/dL 7-21 3094-0) Creatinine (test code 1.09 mg/dL 0.57-1.25 = 2160-0) Glucose (test code = 129 mg/dL 70-105 H 2345-7) Calcium (test code = 9.1 mg/dL 8.4-10.2 89613-0) AST (test code = 16 U/L 5-34 1920-8) ALT (test code = 16 U/L 6-55 1742-6) EGFR (test code = 65 mL/min/1.73 [place] [address]-8) NOT ACCURATE CREATININE CLEARANCE IN PREDICTING GLOMERULAR FILTRATION RATE . ESTIMATED GFR I S NOT APPLICABLE FOR DIALYSIS PATIEN TS. ALANNA (test code = ALANNA) Editor Farm Journal ID - CHRISTINA Lab Interpretation Abnormal (test code = 53490-7) [facility] CenterCOMPREHENSIVE METABOLIC [id number] 14:45:00 Test Item Value Reference Range Interpretation Comments TOTAL PROTEIN 6.9 gm/dL 6.0-8.3 (BEAKER) (test code = 770) ALBUMIN (BEAKER) 4.0 g/dL 3.5-5.0 (test code = 1145) ALKALINE PHOSPHATASE 59 U/L 40-150 (BEAKER) (test code = 346) BILIRUBIN TOTAL 0.6 mg/dL 0.2-1.2 (BEAKER) (test code = 377) SODIUM (BEAKER) (test 136 meq/L 136-145 code = 381) POTASSIUM (BEAKER) 4.1 meq/L 3.5-5.1 (test code = 379) CHLORIDE (BEAKER) 100 meq/L 98-107 (test code = 382) CO2 (BEAKER) (test 25 meq/L 22-29 code = 355) BLOOD UREA NITROGEN 16 mg/dL 7-21 (BEAKER) (test code = 354) CREATININE (BEAKER) 1.09 mg/dL 0.57-1.25 (test code = 358) GLUCOSE RANDOM 129 mg/dL 70-105 H (BEAKER) (test code = 652) CALCIUM (BEAKER) 9.1 mg/dL 8.4-10.2 (test code = 697) AST (SGOT) (BEAKER) 16 U/L 5-34 (test code = 353) ALT (SGPT) (BEAKER) 16 U/L 6-55 (test code = 347) EGFR (LALO) (test 65 mL/min/1.73 ESTIMA DELORES GFR IS code = 1092) sq m NOT ACCURATE CREATININE CLEARANCE IN PREDICTING GLOMERULAR FILTRATION RATE . ESTIMATED GFR I S NOT APPLICABLE FOR DIALYSIS PATIEN TS. Editor Farm Journal ID - EMERSONLACTIC ACID, [id number] 14:41:00 Test Item Value Reference Range Interpretation Comments LACTATE BLOOD VENOUS 3.18 mmol/L 0.50-2.20 H Specime n slightly (2) (LALO) (test hemolyzed code = 2872) Editor Farm Journal ID - [id number] 14:34:00 Test Item Value Reference Range Interpretation Comments PTT (test code = 39.1 See_Comment H [Automated message] 03351-7) The system Namely generated this result transmitted ref erence range: 22.5 - 3 6.0 seconds. The reference range was not used to int erpret this result as normal/abnormal . Lab Interpretation (test Abnormal code = 50297-6) [facility] [id number] 14:34:00 Test Item Value Reference Range Interpretation Comments PARTIAL THROMBOPLASTIN TIME 39.1 seconds 22.5-36.0 H (LALO) (test code = 760) Prothrombin time/[id number] 14:33:00 Test Item Value Reference Interpretation Comments Range Protime (test code = 13.3 See_Comment [Autom ated 5902-2) message] The system which generated this result transmitted reference range : 11.9 - 14.2 seconds. The reference range was not used to interpret this result as normal/abnormal . INR (test code = 1.03 See_Comment [Automated 0851-6) message] The system which generated this result transmitted reference range : <=5.90. The reference range was not used to interpret this result as normal/abnormal . ALANNA (test code = RECOMMENDED ALANNA) COUMADIN/WARFARIN INR THERAPY RANGESSTANDARD DOSE: 2.0 - 3.0 Includes: PROPHYLAXIS for venous thrombosis, systemic embolization; TREATMENT for venous thrombosis and/or pulmonary embolus.HIGH RISK: Target INR is 2.5-3.5 for patients with mechanical heart valves. Lab Interpretation Normal (test code = 08963-5) [facility] CenterPROTHROMBIN TIME/[id number] 14:33:00 Test Item Value Reference Range Interpretation Comments PROTIME (BEAKER) 13.3 seconds 11.9-14.2 (test code = 759) INR (BEAKER) (test 1.03 See_Comment [Automat ed message] code = 370) The system Namely generated this result transmitted ref erence range: <=5.90. The reference range was not used to int erpret this result as normal/abnormal . RECOMMENDED COUMADIN/WARFARIN INR THERAPY RANGESSTANDARD DOSE: 2.0 - 3.0 Includes: PROPHYLAXIS forvenous thrombosis, systemic embolization; TREATMENT for venous thrombosis and/or pulmonary embolus.HIGH RISK: Target INR is 2.5-3.5 for patients with mechanical heart valves.CBC W/PLT COUNT & AUTO DIFFERENTIAL 2020-12-05 14:27:00 Test Item Value Reference Range Interpretation Comments WHITE BLOOD CELL COUNT (BEAKER) 8.7 K/ L 3.5-10.5 (test code = 775) RED BLOOD CELL COUNT (BEAKER) 4.32 M/ L 4.63-6.08 L (test code = 761) HEMOGLOBIN (BEAKER) (test code = 12.5 GM/DL 13.7-17.5 L 410) HEMATOCRIT (BEAKER) (test code = 37.8 % 40.1-51.0 L 411) MEAN CORPUSCULAR VOLUME (BEAKER) 87.5 fL 79.0-92.2 (test code = 753) MEAN CORPUSCULAR HEMOGLOBIN 28.9 pg 25.7-32.2 (BEAKER) (test code = 751) MEAN CORPUSCULAR HEMOGLOBIN CONC 33.1 GM/DL 32.3-36.5 (BEAKER) (test code = 752) RED CELL DISTRIBUTION WIDTH 14.9 % 11.6-14.4 H (BEAKER) (test code = 412) PLATELET COUNT (BEAKER) (test 261 K/CU MM 150-450 code = 756) MEAN PLATELET VOLUME (BEAKER) 10.5 fL 9.4-12.4 (test code = 754) NUCLEATED RED BLOOD CELLS 0 /100 WBC 0-0 (BEAKER) (test code = 413) NEUTROPHILS RELATIVE PERCENT 64 % (BEAKER) (test code = 429) LYMPHOCYTES RELATIVE PERCENT 21 % (BEAKER) (test code = 430) MONOCYTES RELATIVE PERCENT 9 % (BEAKER) (test code = 431) EOSINOPHILS RELATIVE PERCENT 4 % (BEAKER) (test code = 432) BASOPHILS RELATIVE PERCENT 1 % (BEAKER) (test code = 437) NEUTROPHILS ABSOLUTE COUNT 5.58 K/ L 1.78-5.38 H (BEAKER) (test code = 670) LYMPHOCYTES ABSOLUTE COUNT 1.82 K/ L 1.32-3.57 (BEAKER) (test code = 414) MONOCYTES ABSOLUTE COUNT (BEAKER) 0.82 K/ L 0.30-0.82 (test code = 415) EOSINOPHILS ABSOLUTE COUNT 0.38 K/ L 0.04-0.54 (BEAKER) (test code = 416) BASOPHILS ABSOLUTE COUNT (BEAKER) 0.05 K/ L 0.01-0.08 (test code = 417) IMMATURE GRANULOCYTES-RELATIVE 1 % 0-1 PERCENT (BEAKER) (test code = 2801) RAD, FOOT, MIN 3 VIEWS, [id number] 14:06:00Reason for Exam:->Abscess or cellulitis of toe, left (L03.032,L02.612)FINAL REPORT EXAM: RAD, FOOT, MIN 3 VIEWS, [...] seen. IMPRESSION:No acute bony abnormality. Signed: Araceli Lee MDReport Verified Date/Time: 12/03/2019 14:06:27 Reading Location: [facility] ReadingRoom [address] [place] [address] CULTURE, [id number] 13:22:49 Test Item Value Reference Range Interpretation Comments CULTURE, SPECIMEN NUMBER: CULTURE, A NAEROBIC ANAEROBIC (test [id number] code = 635-3) SP ECIMEN NUMBER: [id number] SPECIMEN COMMEN T: R FOOT SOURCE: FO OT REPORT STATUS: FINAL FINAL REPORT: 03/12/2019 NO ANAEROBES RECOV ERED AFTER 5 DAYS PRELIMINARY REP ORT #2: 2018 NO ANAEROBES IS OLATED AT 3 DAYS PRELIMINARY REP ORT #3: 2018 NO ANAEROBES IS OLATED AT 4 DAYS PRELIMINARY RORO EROBE REPORT: 03/08/2019 NO ANAEROBES RECOV ERED AFTER 48 HOURS Unless Otherwi se Indicated, All Testing Perform ed At: [facility], [address] [place] [address] Laboratory Dire ctor: Jordan truong M.D. CLI A Number [id number] Cap Accreditati on No. [facility], [id number] 16:34:04 Test Item Value Reference Range Interpretation Comments CULTURE, ROUTINE SPECIMEN A CULTURE, ROUTINE (test code = 6463-4) NUMBER: [id number] SPECIMEN NUMBER : [id number] SPECIM EN COMMENT: R FOOT SOURCE: FOOT RE PORT STATUS: FINAL DIRECT GRAM STA IN: FEW WB C'S OBSERVED FEW GRAM POSITI VE COCCI IN PAIRS ISOLATE NUMBER 1: ORGANISM: 03/08/2019 FEW GRAM NEGATIVE BACILL I IDENTIFICATION: 03/09/2019 ACINETOBACTER BAUMANNII/HAEMO LYTI CUS ADDITIO NAL OBSERVATIONS: 03/09/2019 FEW NORMAL SKIN ANGELI RA A. BAUMANNII/HAE -AMI KACIN SENSITIVE <=16CEFEPIME SENSITIVE 8CEFTAZIDIME SENSITIVE 8CIPROFLOXACIN INTERMED 2LEVOFLOXACIN SENSITIVE <=2TETRACYCLINE SENSITIVE <=4TOBRAMYCIN SENSITIVE <=4TRIMETH/SULF A RESISTANT >2/3 8 NOTE: NUMBER S DISPLAYED REPRE SENT MINIMUM INHIBIT ORY CONCENTRATION ( KENY) WHICH IS EXPRES SED IN MCG/ML. Unless Otherwis e Indicated, All Testing Perform ed At: [facility], [address] [place] [address] Senior Software Qa Analyst: Soham Perdomo Number [id number] Cap Accreditation N o. Lab Interpretation Abnormal (test code = 46757-0) [facility], [id number] 20:45:33 Test Item Value Reference Range Interpretation Comments CULTURE, ROUTINE SPECIMEN A CULTURE, ROUTINE (test code = 6463-4) NUMBER: [id number] SPECIMEN NUMBER : [id number] SPECIM EN COMMENT: R FOOT SOURCE: OTHER SOURCE REPORT STATUS: FINAL DIRECT GRAM STA IN: NO WBC s SEEN FE W GRAM POSITIVE C OCCI RARE GR AM VARIABLE BACILL I ISOLATE NUMBER 1: ORGANISM: 02/07/2019 MODE RATE GRAM NEGATIVE BACILLI IDENTIFICATION: 02/08/2019 ACINETOBACTER BAUMANNII/HAEMO LYTI CUS ISOLATE NU MBER 2: ORGANISM: 02/07/2019 MODE RATE ENTEROCOCCUS SPECIES (GROUP D) IDENTIFICATION : 02/08/2019 ENTEROCOCCUS SPECIES (GROUP D) ISOLATE NUMBER 3: ORGANISM: 02/08/2019 FEW YEAST IDENTIFICATION: CAN DIDA ALBICANS A. BAUMANNII/HAE ENTEROCOCCUS SP . - -AMI KACIN SENSITIVE <=16AMPICILLIN SENSITIVE <=2CEFEPIME SENSITIVE <=4CEFTAZIDIME SENSITIVE 4CIPROFLOXACIN SENSITIVE <=1LEVOFLOXACIN SENSITIVE <=2TETRACYCLINE SENSITIVE <=4TOBRAMYCIN SENSITIVE <=4TRIMETH/SULF A SENSITIVE <=2/38VANCOMYCI N SENSITIVE 2 NOTE: NUMBERS DISPLAYED REPRE SENT MINIMUM INHIBIT ORY CONCENTRATION ( KENY) WHICH IS EXPRES SED IN MCG/ML. Unless Otherwis e Indicated, All Testing Perform ed At: [facility], [address] [place] [id number] Senior Software Qa Analyst: Jordan Mijares M.D. CLIA Number [id number] Cap Accreditation N o. [id number] Lab Interpretation Abnormal (test code = 94472-5) [facility]
[2021-06-13] MEDS ORDERED: D50W 50 ML IV ONE ×2 (20:50→23:01)
[2021-06-13] MEDS ORDERED: D10W 250 ML IV ONE (20:52)
[2021-06-13 21:17] LABS: Absolute Lymphocytes (CBC) 0.5 K/uL (0.7-4.9); Hematocrit 27.8 % (39.6-49.0); Lymphocytes % 8.1 % (15.3-44.8); MPV 7.1 fL (7.6-11.3); Protime INR 1.18; RBC Red Blood Cell Count 3.53 M/uL (4.33-5.43)
[2021-06-13 21:19] LABS: Sodium Level 131 mmol/L (136-145)
[2021-06-13 21:23] LABS: Urine Blood Negative (Negative); Urine Glucose Negative (Negative); Urine Protein Negative (Negative); Urine pH 5.5 (5.0-7.0)
[2021-06-13 21:31] LABS: ALT/SGPT 23 U/L (12-78); AST/SGOT 14 U/L (15-37); Albumin 2.9 g/dL (3.4-5.0); Alkaline Phosphatase 60 U/L (45-117); BUN Blood Urea Nitrogen 19 mg/dL (7-18); Bicarbonate 28 mmol/L (21-32); Bilirubin Direct 0.1 mg/dL (0-0.2); Bilirubin Total 0.3 mg/dL (0.2-1.0); Glucose Level 57 mg/dL (74-106); Lipase 71 U/L (73-393); Magnesium 1.8 mg/dL (1.8-2.4); NT PRO-BNP 2535 pg/mL (<450); Protein, Total 6.7 g/dL (6.4-8.2); Troponin (Emerg Dept Use Only) < 0.02 ng/mL (0.0-0.045)
--- NOTE | 2021-06-13 21:35 | RAD REPORT ---
EXAM DESCRIPTION: RAD - Chest Single View - 06/13/2021 8:33 pm CLINICAL HISTORY: Cough;Congestion COMPARISON: Portable October 2018 TECHNIQUE: AP portable chest image was obtained 06/13/2021 8:33 pm . FINDINGS: No focal mass or consolidations seen. Interstitial markings are prominent. Cardiomegaly an d vascular engorgement are present. Sternotomy wires are in place, new from prior imaging. Trachea is midline. No measurable pleural effusion and no pneumothorax. No acute bony abnormality seen. No acut e aortic findings suspected. IMPRESSION: Chest findings suggest a mild failure or volume overload. No focal mass or consolidation.
--- NOTE | 2021-06-13 21:59 | RAD REPORT ---
EXAM DESCRIPTION: CT - Head Brain Wo Cont - 06/13/2021 9:33 pm CLINICAL HISTORY: SYNCOPE COMPARISON: No comparisons TECHNIQUE: Axial 5 mm thick images of the head were obtained without IV contrast. All CT scans are performed using dose optimization technique as appropriate and may include automated exposure control or mA/KV adjustment according to patient size. FINDINGS: No intracranial hemorrhage, mass, edema or shift of mid-line structures. No acute infarcti on changes seen. No abnormal extra-axial fluid collections. Moderate atrophy changes are present with ventricles in proportion. Chronic ischemic changes are mild. Dense arterial tree calcifications are present. Mastoid air cells and visualized portions of the paranasal sinuses are clear. No acute bony findings. IMPRESSION: No hemorrhage or acute intracranial finding. Moderate atrophy mild chronic ischemic changes are present.
[2021-06-13] MEDS ORDERED: POTASSIUM CL SA 10 MEQ TAB PO ONE (22:07)
[2021-06-13 22:10] LABS: SARS-COV-2 RT PCR POSITIVE (NEGATIVE)
--- NOTE | 2021-06-13 22:28 | ER ---
Nurse's Notes 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 Coronavirus screen: cough unrelated to allergies, fatigue, vomiting. Ebola Screen: No symptoms or risks identified at this time. Initial Sepsis Screen: Does the patient meet any 2 criteria? No. Patient's initial sepsis screen is negative. Does the patient have a suspected source of infection? No. Patient's initial sepsis screen is negative. Risk Assessment: Do you want to hurt yourself or someone else? Patient reports no desire to harm self or others. Onset of symptoms was June 13, 2021. 20:33 Method Of Arrival: EMS: [facility] lp1 20:33 Acuity: JOSE F 2 lp1 Historical: - Allergies: 20:36 Sulfa (Sulfonamide Antibiotics); lp1 - PMHx: 20:36 ADD/ADHD; Cellulitis; Diabetes - NIDDM; Hyperlipidemia; Hypertension; Hypothyroidism; lp1 skin cancer; - Immunization history:: Adult Immunizations up to date, Client reports receiving the 2nd dose of the Covid vaccine. - Social history:: Smoking status: Patient/guardian denies using tobacco, the patient reports quitting approximately 30 years ago. Screenin:39 Abuse screen: Denies threats or abuse. Denies injuries from another. Nutritional lp1 screening: No deficits noted. Tuberculosis screening: No symptoms or risk factors identified. Fall Risk Total [place] Fall Scale indicates High Risk Score (45 or more points). Fall prevention measures have been instituted. Side Rails Up X 2. Assessment: 20:39 General: Appears in no apparent distress. Behavior is calm, cooperative, appropriate lp1 for age. Pain: Complains of pain in chest Quality of pain is described as aching, Reports since cardiac surgery a few months ago. Neuro: Level of Consciousness is awake, alert, obeys commands, Oriented to person, place, situation. Cardiovascular: Patient's skin is warm and dry. Respiratory: Respiratory effort is even, unlabored, Breath sounds are clear bilaterally. GI: No signs and/or symptoms were reported involving the gastrointestinal system. Abdomen is obese. : No signs and/or symptoms were reported regarding the genitourinary system. EENT: No signs and/or symptoms were reported regarding the EENT system. Derm: Skin is intact, is thin, Skin is dry, Skin is normal. Musculoskeletal: Circulation, motion, and sensation intact. 06/14 21:34 General: Reports " I am ready, ready to go home." Nursing staff spoke to hospitalist. tw5 Blood sugar was 154. Vital Signs: 06/13 20:33 BP 93 / 67; Pulse 72; Resp 17; Pulse Ox 99% on R/A; Weight 113.4 kg (R); Height 6 ft. 2 lp1 in. (187.96 cm); Pain 3/10; 20:39 BP 109 / 74; lp1 22:56 BP 107 / 56; Pulse 75; Resp 17; Temp 98.8(O); Pulse Ox 97% on R/A; lp1 06/14 00:48 BP 106 / 75; Pulse 73; Resp 18; Pulse Ox 99% on R/A; lp1 21:34 Resp 18; Pulse Ox 96% on R/A; tw5 06/13 20:33 Body Mass Index 32.10 (113.40 kg, 187.96 cm) lp1 [place] Coma Score: 06/13 22:56 Eye Response: spontaneous(4). Verbal Response: oriented(5). Motor Response: obeys lp1 commands(6). Total: 15. ED Course: 20:18 Patient arrived in ED. wm 20:22 Mario Wright MD is Attending Physician. mh7 20:31 Mayra Patrick, RUBEN is Primary Nurse. lp1 20:32 XRAY Chest (1 view) In Process Unspecified. EDMS 20:36 Triage completed. lp1 20:36 Arm band placed on right wrist. lp1 20:38 Patient has correct armband on for positive identification. Placed in gown. Cardiac lp1 monitor on. Pulse ox on. NIBP on. 21:33 CT Head Brain wo Cont In Process Unspecified. EDMS 22:26 Jerrica Caballero MD is Hospitalizing Provider. [facility] 23:11 No provider procedures requiring assistance completed. Patient admitted, IV remains in lp1 place. 06/14 21:55 IV discontinued, intact, bleeding controlled, No redness/swelling at site. Pressure tw5 dressing applied. Administered Medications: 06/13 20:57 Drug: D50W 50 ml Route: IVP; Site: left antecubital; lp1 22:56 Follow up: Response: No adverse reaction lp1 21:00 Drug: D10 in Water [4ml/kg] 250 ml Route: IVP; Site: left antecubital; lp1 22:44 Drug: Potassium Chloride 40 mEq Route: PO; lp1 23:04 Drug: D50W 50 ml Route: IVP; Site: left antecubital; lp1 Outcome: 22:28 Decision to Hospitalize by Provider. 7 23:11 Condition: stable lp1 23:11 Instructed on the need for admit. 23:35 Admitted to ER Hold. Please see [facility] for further documentation. lp1 06/14 21:55 Discharged to home via wheelchair, with family. tw5 Condition: improved Discharge instructions given to patient, family, Instructed on discharge instructions, follow up and referral plans. medication usage, Demonstrated understanding of instructions, follow-up care. 21:57 Patient left the ED. tw5 Signatures: Dispatcher [employer] EDMS Mayra Patrick RN RN 1 Mario Wright MD MD [facility] Kiya Hodge Tiffany tw5
--- NOTE | 2021-06-13 22:28 | EDPHYS ---
Physician Documentation [facility] Name: Cole Jefrfey Age: 81 yrs Sex: Male : 1940 Arrival Date: 06/13/2021 Time: 20:18 Bed 3 Private MD: ED Physician Mario Wright HPI: 06/13 20:24 This 81 yrs old Male presents to ER via Unassigned with complaints of Low blood mh7 glucose. Fall Injury. 20:24 The patient or guardian reports hypoglycemia, that was potentially precipitated by mh7 Unknown, with the patient's symptoms witnessed by family, Treatment prior to arrival includes: EMS administered D50, checked blood sugar on arrival, which was 37. Onset: The symptoms/episode began/occurred today. 20:24 Associated signs and symptoms: Pertinent positives: anorexia, Fall , Pertinent mh7 negatives: constipation, decreased urine output, diaphoresis, diarrhea, dry skin, hair loss, ketones in urine, nausea, polydipsia, polyphagia, polyuria, seizure activity, skin flushing, urinary incontinence, vomiting. Current symptoms: In the emergency department the patient's symptoms have improved, markedly, is more alert. According to EMS, family reports that patient has had coughing and congestion over the past 2 to 3 days. Patient's has reportedly been ill with similar symptoms. They were called because family was going to take patient to be evaluated but he fell prior to leaving home. EMS checked blood sugar which was noted to be in 30s. He was given dextrose and felt much better. Family also reports low blood sugar of 40s 2 days ago but responded to oral glucose. He denies any injuries from fall this evening. He denies any fever, headache, chest pain, abdominal pain, nausea, vomiting, diarrhea, shortness of breath, dysuria, dizziness, numbness/tingling, or weakness.. Historical: - Allergies: 20:36 Sulfa (Sulfonamide Antibiotics); lp1 - PMHx: 20:36 ADD/ADHD; Cellulitis; Diabetes - NIDDM; Hyperlipidemia; Hypertension; Hypothyroidism; lp1 skin cancer; - Immunization history:: Adult Immunizations up to date, Client reports receiving the 2nd dose of the Covid vaccine. - Social history:: Smoking status: Patient/guardian denies using tobacco, the patient reports quitting approximately 30 years ago. ROS: 20:24 Constitutional: Negative for fever, chills, and weight loss, Eyes: Negative for injury, mh7 pain, redness, and discharge, ENT: Negative for injury, pain, and discharge, Neck: Negative for injury, pain, and swelling, Cardiovascular: Negative for chest pain, palpitations, and edema, Abdomen/GI: Negative for abdominal pain, nausea, vomiting, diarrhea, and constipation, Back: Negative for injury and pain, : Negative for injury, bleeding, discharge, and swelling, MS/Extremity: Negative for injury and deformity, Skin: Negative for injury, rash, and discoloration, Neuro: Negative for headache, weakness, numbness, tingling, and seizure, Psych: Negative for depression, anxiety, suicide ideation, homicidal ideation, and hallucinations, Allergy/Immunology: Negative for hives, rash, and allergies, Endocrine: Negative for neck swelling, polydipsia, polyuria, polyphagia, and marked weight changes, Hematologic/Lymphatic: Negative for swollen nodes, abnormal bleeding, and unusual bruising. Exam: 20:24 Constitutional: This is a well developed, well nourished patient who is awake, alert, mh7 and in no acute distress. Head/Face: Normocephalic, atraumatic. Eyes: Pupils equal round and reactive to light, extra-ocular motions intact. Lids and lashes normal. Conjunctiva and sclera are non-icteric and not injected. Cornea within normal limits. Periorbital areas with no swelling, redness, or edema. Neck: Trachea midline, no thyromegaly or masses palpated, and no cervical lymphadenopathy. Supple, full range of motion without nuchal rigidity, or vertebral point tenderness. No Meningismus. Chest/axilla: Normal chest wall appearance and motion. Nontender with no deformity. No lesions are appreciated. Cardiovascular: Regular rate and rhythm with a normal S1 and S2. No gallops, murmurs, or rubs. Normal PMI, no JVD. No pulse deficits. Respiratory: Lungs have equal breath sounds bilaterally, clear to auscultation and percussion. No rales, rhonchi or wheezes noted. No increased work of breathing, no retractions or nasal flaring. Abdomen/GI: Soft, non-tender, with normal bowel sounds. No distension or tympany. No guarding or rebound. No evidence of tenderness throughout. Back: No spinal tenderness. No costovertebral tenderness. Full range of motion. Skin: Warm, dry with normal turgor. Normal color with no rashes, no lesions, and no evidence of cellulitis. MS/ Extremity: Pulses equal, no cyanosis. Neurovascular intact. Full, normal range of motion. 20:24 Psych: Awake, alert, with orientation to person, place and time. Behavior, mood, and affect are within normal limits. 20:24 Neuro: Orientation: is normal, Mentation: is normal, Memory: is normal, Cranial nerves: grossly normal, Cerebellar function: is grossly normal, Motor: is normal, Sensation: is normal, Gait: not tested. seizure activity, is not displayed by the patient, Abnormal movements: there are no abnormal movements. Vital Signs: 20:33 BP 93 / 67; Pulse 72; Resp 17; Pulse Ox 99% on R/A; Weight 113.4 kg (R); Height 6 ft. 2 lp1 in. (187.96 cm); Pain 3/10; 20:39 BP 109 / 74; lp1 22:56 BP 107 / 56; Pulse 75; Resp 17; Temp 98.8(O); Pulse Ox 97% on R/A; lp1 06/14 00:48 BP 106 / 75; Pulse 73; Resp 18; Pulse Ox 99% on R/A; lp1 21:34 Resp 18; Pulse Ox 96% on R/A; tw5 06/13 20:33 Body Mass Index 32.10 (113.40 kg, 187.96 cm) lp1 [place] Coma Score: 06/13 22:56 Eye Response: spontaneous(4). Verbal Response: oriented(5). Motor Response: obeys lp1 commands(6). Total: 15. MDM: 22:25 Differential diagnosis: [place]'s syndrome, DKA, hyperthyroidism, hypoglycemic episode, mh7 Syncope, viral syndrome. Data reviewed: vital signs, nurses notes, EMS record, lab test result(s), cardiac enzymes, CBC, electrolytes, Flu: negative Covid positive. Data interpreted: Pulse oximetry: on room air is 99 %. Interpretation: normal. Counseling: I had a detailed discussion with the patient and/or guardian regarding: the historical points, exam findings, and any diagnostic results supporting the discharge/admit diagnosis, lab results, radiology results, the need for further work-up and treatment in the hospital. Response to treatment: the patient's symptoms have mildly improved after treatment. 22:28 Patient medically screened. [facility] 06/13 20:23 Order name: Basic Metabolic Panel [facility] 06/13 20:23 Order name: CBC with Diff; Complete Time: 21:55 [facility] 06/13 20:23 Order name: LFT's; Complete Time: 21:55 [facility] 06/13 20:23 Order name: Magnesium; Complete Time: 21:55 [facility] 06/13 20:23 Order name: NT PRO-BNP; Complete Time: 21:55 [facility] 06/13 20:23 Order name: PT-INR; Complete Time: 21:20 [facility] 06/13 20:23 Order name: Troponin (emerg Dept Use Only); Complete Time: 21:55 [facility] 06/13 20:23 Order name: COVID-19/FLU A+B (Document "Date of Onset" if Symptomatic); Complete Time: [facility] 22:16 06/13 20:24 Order name: Blood Culture Adult (2) [facility] 06/13 20:24 Order name: Basic Metabolic Panel; Complete Time: 21:55 [facility] 06/13 20:55 Order name: Glucose, Ancillary Testing; Complete Time: 21:04 [facility] 06/13 21:12 Order name: Lipase; Complete Time: 21:55 [facility] 06/13 21:23 Order name: Urine Dipstick-Ancillary; Complete Time: 21:55 [facility] 06/13 23:07 Order name: Glucose, Ancillary Testing EDMS 06/14 00:38 Order name: Glucose, Ancillary Testing EDMS 06/14 02:14 Order name: Glucose, Ancillary Testing EDMS 06/14 04:05 Order name: CBC with Automated Diff EDMS 06/14 04:23 Order name: Comprehensive Metabolic Panel EDMS 06/14 04:23 Order name: Phosphorus EDMS 06/14 04:23 Order name: Lipid Profile EDMS 06/14 04:23 Order name: T4 Free EDMS 06/14 04:23 Order name: Magnesium EDMS 06/14 04:23 Order name: Thyroid Stimulating Hormone EDMS 06/14 04:23 Order name: Transferrin Sat/Iron Binding EDMS 06/14 04:23 Order name: Ferritin EDMS 06/14 04:35 Order name: Glucose, Ancillary Testing EDMS 06/14 05:43 Order name: Glucose, Ancillary Testing [facility] 06/14 07:04 Order name: Glucose, Ancillary Testing [facility] 06/14 07:56 Order name: Glucose, Ancillary Testing [facility] 06/13 20:23 Order name: XRAY Chest (1 view); Complete Time: 21:55 7 06/13 20:23 Order name: EKG; Complete Time: 20:24 7 06/13 20:23 Order name: Cardiac monitoring; Complete Time: 20:40 7 06/13 20:23 Order name: EKG - Nurse/Tech; Complete Time: 21:17 7 06/13 20:23 Order name: IV Saline Lock; Complete Time: 20:40 [facility] 06/13 20:23 Order name: Labs collected and sent; Complete Time: 20:40 [facility] 06/13 20:23 Order name: O2 Per Protocol; Complete Time: 20:40 [facility] 06/13 20:23 Order name: O2 Sat Monitoring; Complete Time: 20:40 [facility] 06/13 20:23 Order name: Urine Dipstick-Ancillary (obtain specimen); Complete Time: 21:17 [facility] 06/13 20:34 Order name: Accucheck Blood Glucose; Complete Time: 20:52 7 06/13 21:20 Order name: CT Head Brain wo Cont; Complete Time: 22:16 [facility] 06/14 09:41 Order name: Glucose, Ancillary Testing [facility] 06/14 11:38 Order name: Glucose, Ancillary Testing [facility] 06/14 14:12 Order name: Glucose, Ancillary Testing [facility] 06/14 15:11 Order name: Glucose, Ancillary Testing [facility] 06/14 16:59 Order name: Glucose, Ancillary Testing [facility] 06/14 17:58 Order name: Glucose, Ancillary Testing [facility] 06/14 18:59 Order name: Gram Stain--Aerobic Bottle [facility] 06/14 21:30 Order name: Glucose, Ancillary Testing [facility] Administered Medications: 20:57 Drug: D50W 50 ml Route: IVP; Site: left antecubital; lp1 22:56 Follow up: Response: No adverse reaction lp1 21:00 Drug: D10 in Water [4ml/kg] 250 ml Route: IVP; Site: left antecubital; lp1 22:44 Drug: Potassium Chloride 40 mEq Route: PO; lp1 23:04 Drug: D50W 50 ml Route: IVP; Site: left antecubital; lp1 Disposition Summary: 06/13/21 22:28 Hospitalization Ordered Hospitalization Status: Inpatient Admission [facility] Provider: Jerrica Caballero Condition: Stable [facility] Problem: new [facility] Symptoms: have improved [facility] Bed/Room Type: Standard [facility] Location: [facility] ER HOLD(06/13/21 23:08) bb Room Assignment: ERHOLD-(06/13/21 23:08) bb Diagnosis - Diabetes mellitus due to underlying condition with hypoglycemia 7 - Hypokalemia 7 - Coronavirus infection, unspecified 7 - Unspecified combined systolic (congestive) and diastolic (congestive) heart failure [facility] Forms: - Medication Reconciliation Form 7 - SBAR form [facility] Signatures: Dispatcher [employer] EDAna Maria Ledesma RN RN bb Mayra Patrick RN RN 1 Mario Wright MD MD 7 Corrections: (The following items were deleted from the chart) 21:12 20:38 LIPASE+C.LAB.BRZ ordered. [facility] EDMS 23:08 22:28 Telemetry/MedSurg (Inpatient) [facility] bb 23:08 22:28 [facility] bb
[2021-06-13] MEDS ORDERED: ONDANSETRON 4 MG/2 ML VIAL IV PRN (23:29)
[2021-06-13] MEDS ORDERED: BENZONATATE 100 MG CAP PO PRN (23:29)
[2021-06-13] MEDS ORDERED: ACETAMINOPHEN 500 MG TAB PO PRN (23:29)
[2021-06-14] MEDS ORDERED: MUCINEX DM 12HR.SR TAB PO PRN (00:10)
--- NOTE | 2021-06-14 00:17 | P.HP ---
Certification for Inpatient Patient admitted to: Observation With expected LOS: <2 Midnights Patient will require the following post-hospital care: None Practitioner: I am a practitioner with admitting privileges, knowledge of patient current condition, hospital course, and medical plan of care. Services: Services provided to patient in accordance with Admission requirements found in Title 42 Section 412.3 of the Code of Federal Regulations <Silvestre Clark - Last Filed: 06/14/21 00:11> Patient History Date of Service: 06/13/21 Reason for admission: hypoglycemia, syncope History of Present Illness: Mr. Jeffrey is a 81 yo M with DM, HLD, HTN, hypothyroidism, CAD who presents after syncopal episode and fall. For the past four days he has had poor appetite, cough, congestion, nausea, and diarrhea. Today he was going to go to urgent care to get a covid test. When he get up, he fell and then became disoriented. He checked his blood sugar and it was 37. When EMS arrived, they gave an amp of glucose. He had low blood sugar to the 40s a few days ago which improved with juice. He is on metformin, januvia and glimepiride at home. He tested positive for COVID in the ED. BG recheck still in the 40s after an another amp of glucose. Currently receiving D10 and about to eat [employer]. He is currently asymptomatic, and AOx4, answering all questions at bedside. 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 Afterwards, he had a pleural effusion, and had to have 2.7L removed from his lung two weeks ago. 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 He is currently on aspirin, plavix, and warfarin. He is being managed by Dr. Conner. H/H 9.0 MCV 78.9 Na 131 K 3.0 Cl 94 BUN 19 Cr 1.4 GFR 49 Glu [address] HEAD IMPRESSION: No hemorrhage or acute intracranial finding. Moderate atrophy mild chronic ischemic changes are present. CXR IMPRESSION: Chest findings suggest a mild failure or volume overload. No focal mass or consolidation. 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 -: left knee replacement 03/08/13 -: CABGx4 - Family History Father -: Heart disease Notes: heart attack- passed Mother -: Cancer Notes: Breast CA, passed r/t Heart attack - Social History Smoking Status: Former smoker Alcohol use: Yes CD- Drugs: No Caffeine use: Yes Place of Residence: Home <Silvestre Clark - Last Filed: 06/14/21 00:11> Date of Service: 06/14/21 <Jerrica Caballero - Last Filed: 06/14/21 20:43> Allergies No Known Allergies Allergy (Verified 05/13/15 02:37) Home Medications: Amlodipine Besylate [Norvasc] 2.5 mg PO DAILY 11/07/18 Aspirin 325 mg PO DAILY 11/07/18 Cetirizine HCl [Allergy Relief] 10 mg PO DAILY 11/07/18 Finasteride [Proscar*] 5 mg PO DAILY 11/07/18 Fluticasone Propionate [Flovent Diskus] 50 mcg IH BID 11/07/18 Levothyroxine Sodium 1 tab PO DAILY 11/07/18 Losartan/Hydrochlorothiazide [Losartan-Hctz 100-25 mg Tab] 100 mg PO DAILY 11/07/18 Magnesium Oxide [Magnesium] 500 mg PO BID 11/07/18 Metformin ER [Glucophage ER*] 1,000 mg PO BID 11/07/18 Oxybutynin Chloride [Ditropan*] 5 mg PO BEDTIME 11/07/18 Simvastatin 20 mg PO BEDTIME 11/07/18 Tamsulosin [Flomax*] 0.4 mg PO BID 11/07/18 Acidophilus/Bulgaricus [Lactinex Packet] 1 each PO DAILY #30 gran.pack 11/09/18 Cefepime [Maxipime] 2 gm IV Q24H #1 bag 11/09/18 Collagenase [Santyl Ointment*] 1 appl TOP DAILY #1 tube 11/09/18 Vancomycin/0.9 % Sod Chloride [Vanco 2 Gram/500 ml-0.9% NaCl] 2 gm IV Q18H #1 plast..bag 11/09/18 Amiodarone HCl [Cordarone*] 200 mg PO BID #0 tab 06/14/21 Clopidogrel Bisulfate [Plavix*] 75 mg PO DAILY tablet 06/14/21 Furosemide [Lasix*] 40 mg PO DAILY tab 06/14/21 Metoprolol Tartrate [Lopressor*] 50 mg PO BID #0 tab 06/14/21 Warfarin Sodium [Coumadin*] 6 mg PO DAILY 5 PM tab 06/14/21 Review of Systems 10-point ROS is otherwise unremarkable General: Malaise ENT: Nose Congestion Respiratory: Cough Gastrointestinal: Nausea, Diarrhea <Silvestre Clark - Last Filed: 06/14/21 00:11> Physical Examination - Physical Exam General: Alert, In no apparent distress HEENT: Atraumatic, PERRLA, Mucous membr. moist/pink, EOMI, Sclerae nonicteric Neck: Supple, 2+ carotid pulse no bruit, No LAD, Without JVD or thyroid abnormality Respiratory: Diminished Cardiovascular: Regular rate/rhythm, Normal S1 S2 Gastrointestinal: Normal bowel sounds, No tenderness Musculoskeletal: No tenderness Integumentary: No rashes Neurological: Normal speech, Normal strength at 5/5 x4 extr, Normal tone, Normal affect Lymphatics: No axilla or inguinal lymphadenopathy - Studies Laboratory Data (last 24 hrs) 06/13/21 20:40: Lipase Cancelled 06/13/21 20:40: PT 13.6 H, INR 1.18 06/13/21 20:40: WBC 6.20, Hgb 9.0 L, Hct 27.8 L, Plt Count 299 06/13/21 20:40: Sodium 131 L, Potassium 3.0 L, BUN 19 H, Creatinine 1.40 H, Glucose 57 L, Magnesium 1.8, Total Bilirubin 0.3, AST 14 L, ALT 23, Alkaline Phosphatase 60, Lipase 71 L <Silvestre Clark - Last Filed: 06/14/21 00:11> - Studies Laboratory Data (last 24 hrs) 06/13/21 20:40: Lipase Cancelled 06/13/21 20:40: PT 13.6 H, INR 1.18 06/13/21 20:40: WBC 6.20, Hgb 9.0 L, Hct 27.8 L, Plt Count 299 06/13/21 20:40: Sodium 131 L, Potassium 3.0 L, BUN 19 H, Creatinine 1.40 H, Glucose 57 L, Magnesium 1.8, Total Bilirubin 0.3, AST 14 L, ALT 23, Alkaline Phosphatase 60, Lipase 71 L <Caballero,Mohammanaty Won - Last Filed: 06/14/21 20:43> Assessment and Plan - Problems (Diagnosis) (1) Hypoglycemia Current Visit: Yes Status: Acute (2) Syncope Current Visit: Yes Status: Acute Qualifiers: Syncope type: unspecified Qualified Code(s): R55 - Syncope and collapse (3) Fall Current Visit: Yes Status: Acute Qualifiers: Encounter type: initial encounter Qualified Code(s): W19.XXXA - Unspecified fall, initial encounter (4) COVID Current Visit: Yes Status: Acute (5) CAD (coronary artery disease) Current Visit: Yes Status: Chronic Qualifiers: Coronary Disease-Associated Artery/Lesion type: bypass graft [place] vs. transplanted heart: [place] heart Associated angina: without angina Qualified Code(s): I25.810 - Atherosclerosis of coronary artery bypass graft(s) without angina pectoris (6) Anemia Current Visit: Yes Status: Chronic Qualifiers: Anemia type: iron deficiency Iron deficiency anemia type: unspecified iron deficiency Qualified Code(s): D50.9 - Iron deficiency anemia, unspecified (7) GEORGINA (acute kidney injury) Current Visit: Yes Status: Acute (8) CHF (congestive heart failure) Current Visit: Yes Status: Chronic Qualifiers: Heart failure type: unspecified Heart failure chronicity: chronic Qualified Code(s): I50.9 - Heart failure, unspecified - Plan continue blood glucose monitoring, give amps of D50 as needed hold glimepiride on tele, orthostatic VS pending ECHO pending reconcile and continue home medications daily weights, continue lasix, monitor kidney function anemia workup pending potassium replacement protocol [place], mucinex as needed DVT ppx Discharge Plan: Home Plan to discharge in: 24 Hours - Advance Directives Does patient have a Living Will: Yes Does patient have a Durable POA for Healthcare: Yes - Code Status/Comfort Care Code Status Assessed: Yes (full code ) Critical Care: No Time Spent Managing Pts Care (In Minutes): 70 <Silvestre Clark - Last Filed: 06/14/21 00:11> Date of Service: 06/13/21 Subjective: Agree with the HPI as mentioned above Physical Examination: Vitals: Afebrile vital signs are stable Physical exam: Cardiovascular: Within normal limits. Lungs: Within normal limits Abdomen: Within normal limits Neuro: Awake, alert, oriented to person place and time Assessment: 1. Hypoglycemia 2. Syncope Plan: 1. Continue with current plan of care as mentioned above <Jerrica Caballero - Last Filed: 06/14/21 20:43>
[2021-06-14] MEDS ORDERED: D10W 250 ML IV ONE ×3 (00:40→10:51)
[2021-06-14] MEDS: DEXTROSE 10%-WATER 500 ML IV SCH ×2 (00:45→10:45)
[2021-06-14] MEDS ORDERED: D50W 50 ML IV ONE ×2 (00:45→04:31)
[2021-06-14] MEDS: D50W 25 GM/50 ML SYRINGE IV PRN ×2 (00:55→04:34)
[2021-06-14 04:05] LABS: Absolute Lymphocytes (CBC) 1.2 K/uL (0.7-4.9); Hematocrit 27.4 % (39.6-49.0); Lymphocytes % 18.7 % (15.3-44.8); MPV 6.8 fL (7.6-11.3); RBC Red Blood Cell Count 3.46 M/uL (4.33-5.43)
[2021-06-14 04:23] LABS: Albumin 2.8 g/dL (3.4-5.0); Bilirubin Total 0.4 mg/dL (0.2-1.0); Ferritin 57.9 ng/mL (26-388); Magnesium 1.8 mg/dL (1.8-2.4); Phosphorus 3.2 mg/dL (2.5-4.9); Potassium 3.2 mmol/L (3.5-5.1); Protein, Total 6.4 g/dL (6.4-8.2); Thyroid Stimulating Hormone 0.421 uIU/mL (0.360-3.740)
[2021-06-14 05:19] VITALS: BMI 32.1
[2021-06-14] MEDS: INSULIN -REGULAR HUMAN 50 UNIT/0.5 ML ML SQ SCH ×2 (07:30→11:27)
[2021-06-14] MEDS ORDERED: AMIODARONE HCL 200 MG TAB PO SCH (09:00)
[2021-06-14] MEDS ORDERED: FERROUS SULFATE 325 MG TAB PO SCH (09:00)
[2021-06-14] MEDS ORDERED: ASPIRIN EC 81 MG TAB PO SCH (09:00)
[2021-06-14] MEDS ORDERED: FUROSEMIDE 40 MG TABLET PO SCH (09:00)
[2021-06-14] MEDS ORDERED: CLOPIDOGREL 75 MG TABLET PO SCH (09:00)
[2021-06-14] MEDS ORDERED: METOPROLOL TAR 50 MG TAB PO SCH (09:00)
[2021-06-14] MEDS ORDERED: AMIODARONE HCL 200 MG TAB ONE (11:05)
[2021-06-14] MEDS ORDERED: ASPIRIN EC 81 MG TAB PO ONE (11:05)
[2021-06-14] MEDS ORDERED: FUROSEMIDE 40 MG TABLET ONE (11:05)
[2021-06-14] MEDS ORDERED: CLOPIDOGREL 75 MG TABLET ONE (11:05)
[2021-06-14] MEDS ORDERED: TAMSULOSIN 0.4 MG SR CAP ONE (11:06)
[2021-06-14] MEDS ORDERED: WARFARIN SODIUM 6 MG TAB PO SCH (17:00)
[2021-06-14 17:05] VITALS: BP 138/59
[2021-06-14] MEDS ORDERED: ACETAMINOPHEN 500 MG TAB ONE (18:34)
[2021-06-14] MEDS ORDERED: WARFARIN SODIUM 5 MG TAB ONE (18:34)
[2021-06-14 19:04] VITALS: TEMP 99.6
--- NOTE | 2021-06-14 20:42 | P.DS ---
Discharge Date: 06/14/21 Disposition: ROUTINE DISCHARGE Discharge Condition: GOOD Reason for Admission: hypoglycemia, syncope Brief History of Present Illness: Mr. Jeffrey is a 81 yo M with DM, HLD, HTN, hypothyroidism, CAD who presents after syncopal episode and fall. For the past four days he has had poor appetite, cough, congestion, nausea, and diarrhea. Today he was going to go to urgent care to get a covid test. When he get up, he fell and then became disoriented. He checked his blood sugar and it was 37. When EMS arrived, they gave an amp of glucose. He had low blood sugar to the 40s a few days ago which improved with juice. He is on metformin, januvia and glimepiride at home. He tested positive for COVID in the ED. BG recheck still in the 40s after an another amp of glucose. Currently receiving D10 and about to eat [employer]. He is currently asymptomatic, and AOx4, answering all questions at bedside. Hospital Course: Patient blood sugars are stable. Amaryl has been discontinued. Hemoglobin A1c is less than 6. At this time, patient is doing well and stable for discharge home. Vital Signs/Physical Exam: Temp Pulse Resp BP Pulse Ox 99.6 F 70 16 138/59 L 94 06/14/21 19:03 06/14/21 16:00 06/14/21 16:00 06/14/21 16:00 06/14/21 16:00 General: Alert, In no apparent distress, Oriented x3 Laboratory Data at Discharge: WBC 6.30 K/uL (4.3-10.9) 06/14/21 03:47 Hgb 9.2 g/dL (13.6-17.9) L 06/14/21 03:47 Hct 27.4 % (39.6-49.0) L 06/14/21 03:47 Plt Count 295 K/uL (152-406) 06/14/21 03:47 PT 13.6 SECONDS (9.5-12.5) H 06/13/21 20:40 INR 1.18 06/13/21 20:40 Sodium 130 mmol/L (136-145) L 06/14/21 03:47 Potassium 3.2 mmol/L (3.5-5.1) L 06/14/21 03:47 BUN 17 mg/dL (7-18) 06/14/21 03:47 Creatinine 1.23 mg/dL (0.55-1.3) 06/14/21 03:47 Glucose 50 mg/dL (74-106) L 06/14/21 03:47 Phosphorus 3.2 mg/dL (2.5-4.9) 06/14/21 03:47 Magnesium 1.8 mg/dL (1.8-2.4) 06/14/21 03:47 Total Bilirubin 0.4 mg/dL (0.2-1.0) 06/14/21 03:47 AST 16 U/L (15-37) 06/14/21 03:47 ALT 24 U/L (12-78) 06/14/21 03:47 Alkaline Phosphatase 55 U/L (45-117) 06/14/21 03:47 Triglycerides 24 mg/dL (<150) 06/14/21 03:47 Cholesterol 104 mg/dL (<200) 06/14/21 03:47 HDL Cholesterol 53 mg/dL (40-60) 06/14/21 03:47 Cholesterol/HDL Ratio 1.96 06/14/21 03:47 Lipase 71 U/L (73-393) L 06/13/21 20:40 Lipase Cancelled 06/13/21 20:40 Home Medications: Amlodipine Besylate [Norvasc] 2.5 mg PO DAILY 11/07/18 Aspirin 325 mg PO DAILY 11/07/18 Cetirizine HCl [Allergy Relief] 10 mg PO DAILY 11/07/18 Finasteride [Proscar*] 5 mg PO DAILY 11/07/18 Fluticasone Propionate [Flovent Diskus] 50 mcg IH BID 11/07/18 Levothyroxine Sodium 1 tab PO DAILY 11/07/18 Losartan/Hydrochlorothiazide [Losartan-Hctz 100-25 mg Tab] 100 mg PO DAILY 11/07/18 Magnesium Oxide [Magnesium] 500 mg PO BID 11/07/18 Metformin ER [Glucophage ER*] 1,000 mg PO BID 11/07/18 Oxybutynin Chloride [Ditropan*] 5 mg PO BEDTIME 11/07/18 Simvastatin 20 mg PO BEDTIME 11/07/18 Tamsulosin [Flomax*] 0.4 mg PO BID 11/07/18 Acidophilus/Bulgaricus [Lactinex Packet] 1 each PO DAILY #30 gran.pack 11/09/18 Cefepime [Maxipime] 2 gm IV Q24H #1 bag 11/09/18 Collagenase [Santyl Ointment*] 1 appl TOP DAILY #1 tube 11/09/18 Vancomycin/0.9 % Sod Chloride [Vanco 2 Gram/500 ml-0.9% NaCl] 2 gm IV Q18H #1 plast..bag 11/09/18 Amiodarone HCl [Cordarone*] 200 mg PO BID #0 tab 06/14/21 Clopidogrel Bisulfate [Plavix*] 75 mg PO DAILY tablet 06/14/21 Furosemide [Lasix*] 40 mg PO DAILY tab 06/14/21 Metoprolol Tartrate [Lopressor*] 50 mg PO BID #0 tab 06/14/21 Warfarin Sodium [Coumadin*] 6 mg PO DAILY 5 PM tab 06/14/21 Physician Discharge Instructions: OK TO DC IV AND DC HOME AFTER SUPPER IF BLOOD SUGARS REMAIN ELEVATED FOLLOW-UP WITH PCP IN 1-2 WEEKS CALL ME AT [phone] IF ANY QUESTIONS RE: HOSPITAL STAY RETURN TO THE ER IF SYMPTOMS WORSENS FOLLOW-UP WITH CARDIOLOGY IN 1-2 WEEKS DISCONTINUE AMARYL CONTINUE JANUVIA IN 1 WEEK IF BLOOD SUGARS CONSISTENTLY > 150 Diet: ADA Activity: Fall precautions Followup: Damir Lucero MD [Primary Care Provider] - Time spent managing pt's care (in minutes): 35
[2021-06-14 22:29] VITALS: O2SAT 96
== END 2021-06-14 22:30 | disposition home or self-care (01) ==
LOC: ER 20:15 → ERHOLD 23:17
PROVIDERS: ADMIT Hospitalist; ATTEND Hospitalist
DX: E11.649 Type 2 diabetes mellitus with hypoglycemia without coma (principal); U07.1 COVID-19; R55 Syncope and collapse; W19.XXXA Unspecified fall, initial encounter; I25.10 Atherosclerotic heart disease of native coronary artery without angina pectoris; I51.3 Intracardiac thrombosis, not elsewhere classified; I11.0 Hypertensive heart disease with heart failure; I50.9 Heart failure, unspecified; N17.9 Acute kidney failure, unspecified; D50.9 Iron deficiency anemia, unspecified; E03.9 Hypothyroidism, unspecified; E87.6 Hypokalemia; E78.00 Pure hypercholesterolemia, unspecified; N40.0 Benign prostatic hyperplasia without lower urinary tract symptoms; J30.2 Other seasonal allergic rhinitis; Z95.1 Presence of aortocoronary bypass graft; Z79.84 Long term (current) use of oral hypoglycemic drugs; Z79.82 Long term (current) use of aspirin; Z79.01 Long term (current) use of anticoagulants; Z79.02 Long term (current) use of antithrombotics/antiplatelets; Z87.891 Personal history of nicotine dependence; Z85.828 Personal history of other malignant neoplasm of skin; Z96.653 Presence of artificial knee joint, bilateral; Z82.49 Family history of ischemic heart disease and other diseases of the circulatory system; Z80.3 Family history of malignant neoplasm of breast
CPT/HCPCS: 93005; 87040 ×2; 85025 ×2; 80048; 36415; 83735 ×2; 87205; 84100; 85610; 80061; 82947 ×15; 80076; 84443; 81003; 83036; 84484; 84439; 82728; 83690; 83540; 80053; 83880; 0240U; 84466; 70450; 71045; 94760; 96374; 99285; G0378 ×2

== ENCOUNTER 2021-06-18 11:47 | Emergency (ER) | payer OTHER, MEDICARE ==
--- OUTSIDE RECORDS SUMMARY | 2021-06-18 11:50 | XMS REPORT | Clinical Summary ---
:1940 Author Organization [facility] MD [facility] Address [address] [place] [address] Care Team Providers Name Role Phone Yadi [...] Licha Lofton MD S ARS-CoV-2 vaccination after 06/18/2020 Surgical History Surgery Date Site/Laterality Comments MOHS PROCEDURE 05/21/2013 Left left helix and l eft arm MOHS PROCEDURE 05/28/2013 Right right helix COLONOSCOPY 06/13/2013 - about 2 years ag o 06/12/2014 TOTAL KNEE ARTHROPLASTY 06/13/2011 - Right 06/12/2012 TOTAL KNEE ARTHROPLASTY 06/13/2013 - Left 06/12/2014 MS EXC SKIN MALIG <0.5 CM 05/13/2016 Right Proced ure: wide local, FACE,FACIAL Right auricle; Surgeon: Kwame cotto MD; [facility]; Service: HN - H EAD & NECK SURGERY MS SPLIT GRFT TRUNK,ARM,LEG 05/13/2016 Right Proc edure: SPLIT <100 SQCM THICKNESS SKIN G RAFT OF TRUNK/ARM OR LEG ; Surgeon: Kwame cotto MD; Location: [facility]; Service: HN - H EAD [...] Presence of other specified device 2011, 2013 [facility] knee has total knee replacements Disorder of thyroid gland 2013 take thyroid r x Diabetes mellitus 1994 take meds but not on insulin Sensorineural hearing loss, bilateral 05/12/2016 Open skull fracture without slip and fal l intracranial injury Family History Medical History Relation Name Comments Coronary heart disease (CHD) Father Heart disease Father -Breast cancer Mother Delfin Paul from [facility] Relation Name Status Comments Father Mother [...] Vaccination (1) 01/08/1945 Results Not on fileafter 06/18/2020 Insurance Payer Benefit Plan Subscriber ID Effective Phone Address Typ e / Group Dates MEDICARE MEDICARE PART [id number] 2003-Pres [phone] [facility] Medicare A AND B ent [id number] [place] [address] [place] A[employer]-SECONDAR [id number] 1992-Pres [address] [employer] ONLY ent [id number] [place] [address] Advance Directives Type Date Recorded 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 on Advance Directives: 05/14/2016 12:00 AM Directive to Physicians Living Will and Family or Surrogates-Carla Mcneill Advance Directives: 05/14/2016 12:00 AM Medical Melanie jenkins 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
--- OUTSIDE RECORDS SUMMARY | 2021-06-18 12:00 | XMS REPORT | Continuity of Care Document ---
:1940 Author Organization [facility] t Address [address] [place] [address] Care Team Providers Name Role Phone Robina [...] Attending Clinician Rolly PEARSON Attending Clinician Dano QUINTERO Attending Clinician KENIA RODRIGUEZ Attending Clinician Unavailable Tamra PEARSON Attending Clinician Tomas Attending Clinician Unavailable [place] Marquez Admitting Clinician Unavailable Nirali MARTINEZ Admitting Clinician Unavailable Jarrell Garvin Admitting Clinician Unavailable Alma Admitting Clinician Unavailable Waldo Admitting Clinician Unavailable LIZ COSTA Admitting Clinician Unavailable Tomas Admitting Clinician Unavailable Payers Payer Name Policy Type Policy Number Effective Expiration Source Date Date MEDICARE A B [id number] 2003 00:00:00 [facility] [id number] 2020 HEALTHCARE 00:00:00 MEDICAREMEDICARE PART [id number] 2003 MD Presley Alvarez AND 00:00:00 [id number] 2003- [phone] [address], [place] [address]Medicare CITIZEN OF [employer] [id number] 1992 MD Alvarez nderson OF 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 [id number] 3-Present [id number], [place] [address]Laglkxm Problems Condition Condition Condition Status Onset Resolution Last Treating Co mments Source Name Details Category Date Date Treatment Clinician Date Amputation Amputation Disease Active [facility] of little of little 12-22 [facility] toe toe 00:00: of (HCCode) (HCCode) 00 Medici n e Post-opera Post-opera Disease Active [facility] tive state tive state 12-22 Co llege 00:00: of 00 Medicin e Diabetic Diabetic [facility] infection 00:00: Medi leta 00 Center Encounter Encounter Disease Active [facility] for post for post 12-16 Colleg e surgical surgical 00:00: of wound wound 00 Medicin check check e Visit for Visit for Disease Active [facility] wound wound 12-16 College check check 00:00: of 00 Medicin e Hammertoe Hammertoe Disease Active [place] [facility] left of left 12-02 College foot foot 00:00: of 00 Medicin e 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 12-02 Colleg e foot foot 00:00: of 00 Medicin e Controlled Controlled Disease Active [facility] type 2 type 2 11-15 [place] diabetes diabetes 00:00: of mellitus mellitus 00 Medici n with with e diabetic diabetic neuropathy neuropathy , without , without long-term long-term current current use of use of insulin insulin (HCCode) (HCCode) Hyperkerat Hyperkerat Disease Active [facility] osis of osis of [address] [place] [address] sole sole 00:00: of 00 Medicin e Hyperkerat Hyperkerat Disease Active [facility] osis of osis of 11-15 [place] skin skin 00:00: of 00 Medicin e Callus of Callus of Disease Active [place] [facility] foot foot 11-15 [place] 00:00: of 00 Medicin e DM type 2 DM type 2 Disease Active [place] [facility] with with 11-15 [place] diabetic diabetic 00:00: of peripheral peripheral 00 Me dicin neuropathy neuropathy e (HCCode) (HCCode) Blood Blood Disease Active [place] blister blister 2 [place] 00:00: of 00 Medicin e Hematoma Hematoma Disease Active [place] [facility] of skin of skin 2 [place] 00:00: of 00 Medicin e Cellulitis Cellulitis Disease Active [facility] of right of right 06-18 Colleg e lower leg lower leg 00:00: of 00 Medicin e 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 06-18 [place] 00:00: of 00 Medicin e Cellulitis Cellulitis Disease Active 2018-06 [facility] and and 07-08 [place] abscess of abscess of 00:00: of right right 00 Medicin lower lower e extremity extremity Healed Healed Disease Active 2018-06 [facility] ulcer of ulcer of 07-08 Colleg e [...] rs active active ity of problems problems [facility] Allergies, Adverse Reactions, Alerts Allergy Allergy Status Severity Reaction(s) Onset Inactive Treating Comm ents Source Name Type Date Date Clinician Sulfa DA Active U [facility]CH[facility] 2020-06 [facility] (Sulfona [facility] 00:00: Orthope Antibiot 00 dic ics) Hospita l canaglif DA Active [facility] 2020-06 [facility] [place] 00:00: Orthope 00 dic Hospita l Sulfa DA Active U 2020-06 [facility] (Sulfona [facility] 00:00: Noriega Antibiot 00 Medical ics) Center canaglif DA Active U 2020-06 [facility] [place] 00:[facility]: [address] Sulfa DA Active U 2020-06 [facility] (Sulfona 0-16 [place] 00:[facility]: [place] [facility]) Center canaglif DA Active U 2020-06 [facility] [place] 00:[facility]: [address] Sulfa DA Active U [place] 2020-06 [facility] (Sulfona 0-16 [place] 00:00: [place] [facility]) [place] canaglif DA Active U [facility] 2020-06 [facility] [place] 00:[facility]: [address] Sulfa Propensi Active Hives 2018-06 [facility] Antibiot ty to 1-18 [place] ics adverse 00:00: of reaction 00 Medicin s to e drug canaglif DA Active U [facility] 9[facility]27 [place] 00:[facility]: [address] canaglif DA Active U [facility] [place] 00:[facility]: [address] NO KNOWN Allergy Active [facility] NO KNOWN Drug Active [facility] ALLERGIE Class ity of [facility] Family History Family Member Diagnosis Comments Start Date Stop Date Source Natural father Heart attack [facility] Natural father Coronary heart disease (CHD) Natural father Heart disease Faheem rsalmita Natural mother -Breast cancer And tom Social History Social Habit Start Date Stop Date Quantity Comments Source History of tobacco Cigarette Smoker [facility] - Alcohol Comment Medical C enter Exposure to Not sure University of SARS-CoV-2 (event) [facility] Cigarettes smoked 2020-12-05 2020-12-[address] [facility] - current (pack per 00:00:00 00:00:00 Medical Center day) - Reported Cigarette 2020-12-05 2020-12-[address] [facility] - pack-years 00:00:00 00:00:00 [facility] Center History SDOH 2020-12-05 2020-12-[address] [facility] - Alcohol Frequency 00:00:00 00:00:00 Medical Center History AROH 2020-12-05 2020-12-[address] [facility] - Alcohol Std Drinks 00:00:00 00:00:00 [facility] History SDOH 2020-12-05 2020-12-05 1 ERIN Waltersjasmine - Alcohol Binge 00:00:00 00:00:00 Medical Alexandra [...] Stop Date Source Unknown if ever smoked [facility] Former smoker 2020-12-05 00:00:00 2020-12-05 00:00:00 [facility] Medications Ordered Filled Start Stop Current Ordering Indication Dosage Frequency Signature Comments Components Source Medication Medication Date Date Medication? Clinician (SIG) Name Name No known 2020-06 No Univers medications 0-10 ity of 14:03: [address] metformin 2020-06 Yes 1000mg Take 1,000 [place] (GLUCOPHAGE 0-06 mg by [place] ) 1000 MG 15:49: mouth 2 of tablet 25 times Medicin daily e (with meals). Sitagliptin 2020-06 Yes 50mg Take 50 mg [facility] Phosphate 0-06 by mouth Colleg e (JANUVIA) 15:49: every of 100 MG TABS 25 morning. Medi dalia Indication e s: take 1/2 every morning losartan 2020-06 Yes 100mg Take 100 [place] (COZAAR) 0-06 mg by [place] 100 MG 15:49: mouth of tablet 25 daily. Medicin e metformin Yes 1000mg Take 1,000 [facility] (GLUCOPHAGE 9-20 mg by [place] ) 1000 MG 10:19: mouth 2 of tablet 53 times Medicin daily e (with meals). Sitagliptin Yes 50mg Take 50 mg [facility] Phosphate 9-20 by mouth Colleg e (JANUVIA) 10:19: every of 100 MG TABS 53 morning. Medi dalia Indication e s: take 1/2 every morning losartan 202-0 Yes 100mg Take 100 [place] (COZAAR) 9-20 mg by College 100 MG 10:19: mouth of tablet 53 daily. Medicin e metformin 2020-0 Yes 1000mg Take 1,000 [facility] (GLUCOPHAGE 9-20 mg by [place] ) 1000 MG 10:19: mouth 2 of tablet 53 times Medicin daily e (with meals). Sitagliptin 2020-0 Yes 50mg Take 50 mg [facility] Phosphate 9-20 by mouth Colleg e (JANUVIA) 10:19: every of 100 MG TABS 53 morning. Medi dalia Indication e s: take 1/2 every morning losartan 2020-0 Yes 100mg Take 100 [place] (COZAAR) 9-20 mg by College 100 MG 10:19: mouth of tablet 53 daily. Medicin e metformin 2020-0 Yes 1000mg Take 1,000 [facility] (GLUCOPHAGE 9-08 mg by [place] ) 1000 MG 14:17: mouth 2 of tablet 14 times Medicin daily e (with meals). Sitagliptin 2020-0 Yes 50mg Take 50 mg [facility] Phosphate 9-08 by mouth Colleg e (JANUVIA) 14:17: every of 100 MG TABS 14 morning. Medi dalia Indication e s: take 1/2 every morning losartan 2020-0 Yes 100mg Take 100 [place] (COZAAR) 9-08 mg by [place] 100 MG 14:17: mouth of tablet 14 daily. Medicin e metformin 2020-0 Yes 1000mg Take 1,000 [facility] (GLUCOPHAGE 9-08 mg by [place] ) 1000 MG 14:17: mouth 2 of tablet 14 times Medicin daily e (with meals). Sitagliptin 2020-0 Yes 50mg Take 50 mg [facility] Phosphate 9-08 by mouth Colleg e (JANUVIA) 14:17: every of 100 MG TABS 14 morning. Medi dalia Indication e s: take 1/2 every morning losartan 2020-0 Yes 100mg Take 100 [place] (COZAAR) 9-08 mg by [place] 100 MG 14:17: mouth of tablet 14 [...] Take 1,000 [place] (GLUCOPHAGE 8-31 mg by [place] ) 1000 MG 15:03: mouth 2 of tablet 39 times Medicin daily e (with meals). Sitagliptin Yes 50mg Take 50 mg [place] Phosphate 8-31 by mouth Colleg e (JANUVIA) 15:03: every of 100 MG TABS 39 morning. Medi dalia Indication e s: take 1/2 every morning losartan 0 Yes 100mg Take 100 [place] (COZAAR) 8-31 mg by [place] 100 MG 15:03: mouth of tablet 39 daily. Medicin e metformin Yes 1000mg Take 1,000 [place] (GLUCOPHAGE 8-31 mg by [place] ) 1000 MG 15:03: mouth 2 of tablet 39 times Medicin daily e (with meals). Sitagliptin Yes 50mg Take 50 mg [place] Phosphate 8-31 by mouth Colleg e (JANUVIA) 15:03: every of 100 MG TABS 39 morning. Medi dalia Indication e s: take 1/2 every morning losartan 0 Yes 100mg Take 100 [place] [facility] (COZAAR) 8-31 mg by [place] 100 MG 15:03: mouth of tablet 39 daily. Medicin e metformin Yes 1000mg Take 1,000 [facility] (GLUCOPHAGE 8-27 mg by [place] ) 1000 MG 13:38: mouth 2 of tablet 30 times Medicin daily e (with meals). Sitagliptin 2021-0 Yes 50mg Take 50 mg [facility] Phosphate 8-27 by mouth Colleg e (JANUVIA) 13:38: every of 100 MG TABS 30 morning. Medi dalia Indication e s: take 1/2 every morning losartan 2020-0 Yes 100mg Take 100 [place] [facility] (COZAAR) 8-27 mg by [place] 100 MG 13:38: mouth of tablet 30 daily. Medicin e metformin 2020-0 Yes 1000mg Take 1,000 [facility] (GLUCOPHAGE 8-27 mg by [place] ) 1000 MG 13:38: mouth 2 of tablet 30 times Medicin daily e (with meals). Sitagliptin 202-0 Yes 50mg Take 50 mg [facility] Phosphate 8-27 by mouth Colleg e (JUNUVIA) 13:38: every of 100 MG TABS 30 morning. Medi dalia Indication e s: take 1/2 every morning losartan 2020-0 Yes 100mg Take 100 [place] (COZAAR) 8-27 mg by [place] 100 MG 13:38: mouth of tablet 30 daily. Medicin e metformin 2020-0 Yes 1000mg Take 1,000 [facility] (GLUCOPHAGE 8-27 mg by [place] ) 1000 MG 13:38: mouth 2 of tablet 30 times Medicin daily e (with meals). Sitagliptin 2020-0 Yes 50mg Take 50 mg [facility] Phosphate 8-27 by mouth Colleg e (JUNUVIA) 13:38: every of 100 MG TABS 30 morning. Medi dalia Indication e s: take 1/2 every morning losartan 2020-0 Yes 100mg Take 100 [place] (COZAAR) 8-27 mg by [place] 100 MG 13:38: mouth of tablet 30 daily. Medicin e clindamycin 202-0 Yes 300mg Take 1 [place] [facility] (CLEOCIN) 8-27 capsule by [facility] 300 MG 00:00: mouth 3 of capsule 00 times Medicin daily. e clindamycin 202-0 Yes 300mg Take 1 [place] [facility] (CLEOCIN) 8-27 capsule by [facility] 300 MG 00:00: mouth 3 of capsule 00 times Medicin daily. e clindamycin 202-0 Yes 300mg Take 1 [place] [facility] (CLEOCIN) 8-27 capsule by [facility] e[facility] 300 MG 00:00: mouth 3 of capsule 00 times Medicin daily. e clindamycin 202-0 Yes 300mg Take 1 [place] [facility] (CLEOCIN) 8-27 capsule by [facility] e[facility] 300 MG 00:00: mouth 3 of capsule 00 times Medicin daily. e clindamycin 1-0 Yes 300mg Take 1 [place] [facility] (CLEOCIN) 8-27 capsule by [facility] 300 MG 00:00: mouth 3 of capsule 00 times Medicin daily. e clindamycin 2021-0 Yes 300mg Take 1 [place] [facility] (CLEOCIN) 8-27 capsule by [facility] 300 MG 00:00: mouth 3 of capsule 00 times Medicin daily. e clindamycin 2020-0 Yes 300mg Take 1 [place] [facility] (CLEOCIN) 8-27 capsule by [facility] ege 300 MG 00:00: mouth 3 of capsule 00 times Medicin daily. e clindamycin 2020-0 Yes 300mg Take 1 [place] [facility] (CLEOCIN) 8-27 capsule by [facility] e[facility] 300 MG 00:00: mouth 3 of capsule 00 times Medicin daily. e mupirocin 2020-0 Yes Apply to [facility] [facility] (BACTROBAN) 02-03 affected [facility] ege 2 % 00:00: area daily of ointment 00 Medicin e mupirocin 2020-0 Yes Apply to [facility] [facility] (BACTROBAN) 02-03 affected [facility] 2 % 00:00: area daily of ointment 00 Medicin e mupirocin 2020-0 Yes Apply to [facility] [facility] (BACTROBAN) 02-03 affected [facility] ege 2 % 00:00: area daily of ointment 00 Medicin e mupirocin 2020-0 Yes Apply to [place] [facility] (BACTROBAN) 02-03 affected [facility] ege 2 % 00:00: area daily of ointment 00 Medicin e mupirocin 2020-0 2020- No Apply to [place] [facility] (BACTROBAN) 02-03 affected Col [facility]ge 2 % 00:00: 00:00 area daily of ointment 00 :00 Medicin e mupirocin 2020-0 2020- No Apply to [place] [facility] (BACTROBAN) 02-03 affected Col lege 2 [...] mouth Medica l 24 hr 16 daily. [place] capsule finasteride Yes 5mg QD Take [address] (PROSCAR) 5 8-10 by mouth [facility] - mg tablet 13:35: nightly . Med ical 16 [place] fluticasone Yes 1{spray QD [address] [facility] propionate 8-10 } Nasal [facility] - (FLONASE) 13:35: route Medical 50 16 daily. [place] mcg/actuati on nasal spray aspirin 325 Yes 325mg QD Take [address] MG tablet 8-10 mg by [facility] - 13:35: mouth Medical 16 nightly . Center magnesium Yes 500mg Q.5D Take [address] gluconate 8-10 mg by [facility] - (MAGONATE) 13:35: mouth 2 Medi leta 27.5 mg 16 (two) Center magne- sium times (500 mg) daily. tablet amLODIPine Yes 5mg QD Take [address] (NORVASC) 8-10 by mouth [facility] - 2.5 MG 13:35: daily. Medical tablet 16 Center levofloxaci 2020- No Inject [place] [facility] n 750 7-21 07-21 into the [place] MG/150ML 14:12: 00:00 vein. of SOLN 42 :00 Medicin e metformin 0 Yes 1000mg Take 1,000 [place] (GLUCOPHAGE 7-21 mg by [place] ) 1000 MG 14:12: mouth 2 of tablet 39 times Medicin daily e (with meals). Sitagliptin Yes 50mg Take 50 mg [place] Phosphate 7-21 by mouth Colleg e (JANUVIA) 14:12: every of 100 MG TABS 39 morning. Medi dalia Indication e s: take 1/2 every morning losartan Yes 100mg Take 100 [place] (COZAAR) 7-21 mg by [place] 100 MG 14:12: mouth of tablet 39 daily. Medicin e metformin Yes 1000mg Take 1,000 [place] (GLUCOPHAGE 7-07 mg by [place] ) 1000 MG 13:16: mouth 2 of tablet 39 times Medicin daily e (with meals). Sitagliptin Yes 50mg Take 50 mg [place] Phosphate 7-07 by mouth Colleg e (JANUVIA) 13:16: every of 100 MG TABS 39 morning. Medi dalia Indication e s: take 1/2 every morning losartan 0 Yes 100mg Take 100 [place] (COZAAR) 7-07 mg by [place] 100 MG 13:16: mouth of tablet 39 daily. Medicin e levofloxaci Yes Inject [place] n 750 7-07 into the [place] MG/150ML 13:16: vein. of SOLN 39 Medicin e isosorbide 2020- No 60mg QD Take [address] mononitrate 6-30 08-10 tablet (60 L u[facility] - (IMDUR) 60 00:00: 00:00 mg total) M edical MG 24 hr 00 :00 by mouth Center tablet daily for 90 days. diltiazem 2020- No 360mg QD Take [address] (CARDIZEM 6-29 06-29 mg by [facility] [place]) 180 mg 08:41: 00:00 mouth Medic al 24 hr 09 :00 nightly. Center tablet amLODIPine 2020- No 2.5mg QD Take 2.[address] (NORVASC) 12-09-29 mg by [facility] - 2.5 MG 08:40: 00:00 mouth Medical tablet 25 :00 daily . [place] diltiazem 2020- No 180mg QD Take 1 [...] Take [address] (NORVASC) 12-08 06-25 by mouth [facility] - 2.5 MG 18:33: 00:00 daily. Medical tablet 16 :00 [place] metformin Yes 1000mg Take 1,000 [facility] (GLUCOPHAGE 5-26 mg by [place] ) 1000 MG 16:04: mouth 2 of tablet 17 times Medicin daily e (with meals). Sitagliptin Yes 50mg Take 50 mg [facility] Phosphate 5-26 by mouth Colleg e (JANUVIA) 16:04: every of 100 MG TABS 17 morning. Medi dalia Indication e s: take 1/2 every morning losartan Yes 100mg Take 100 [place] (COZAAR) 5-26 mg by [place] 100 MG 16:04: mouth of tablet 17 daily. Medicin e metformin Yes 1000mg Take 1,000 [place] (GLUCOPHAGE 4-28 mg by [place] ) 1000 MG 18:38: mouth 2 of tablet 22 times Medicin daily e (with meals). Sitagliptin 2020-0 Yes 100mg Take 100 [facility] Phosphate 4-28 mg by [place] [facility] 18:38: mouth of 100 MG TABS 22 every Medicin morning. e Indication s: take 1/2 every morning metformin 2020-1 Yes 1000mg Take 1,000 [facility] (GLUCOPHAGE 1-17 mg by [place] ) 1000 MG 21:53: mouth 2 of tablet 17 times Medicin daily e (with meals). Sitagliptin 2020-1 Yes 100mg Take 100 [place] Phosphate 1-17 mg by [place] ([facility] 21:53: mouth of 100 MG TABS 17 every Medicin morning. e Indication s: take 1/2 every morning amoxicillin 2020-0 2020- No amoxicilli [place] -clavulanat 7-14 07-14 n 875 [facility] e e 21:12: 00:00 mg-potassi of (AUGMENTIN) 43 :00 um Medicin 875-125 MG clavulanat e per tablet e 125 mg tablet Take 1 tablet every 12 hours by oral route for 7 days. metformin 2020-0 Yes 1000mg Take 1,000 [place] (GLUCOPHAGE 7-06 mg by [place] ) 1000 MG 15:28: mouth 2 of tablet 15 times Medicin daily e (with meals). Sitagliptin 2020-0 Yes 100mg Take 100 [place] Phosphate 7-06 mg by [place] ([facility]) 15:28: mouth of 100 MG TABS 15 every Medicin morning. e Indication s: take 1/2 every morning metformin 2020-0 Yes 1000mg Take 1,000 [facility] (GLUCOPHAGE 6-26 mg by [place] ) 1000 MG 15:49: mouth 2 of tablet 59 times Medicin daily e (with meals). Sitagliptin 2020-0 Yes 100mg Take 100 [place] Phosphate 6-26 mg by [place] ([facility] 15:49: mouth of 100 MG TABS 59 every Medicin morning. e Indication s: take 1/2 every morning amoxicillin 2020-0 Yes amoxicilli [place] -clavulanat 6-26 n 875 College e 15:49: mg-potassi of (AUGMENTIN) 59 um Medicin 875-125 MG clavulanat e per tablet e 125 mg tablet Take 1 tablet every 12 hours by oral route for 7 days. metformin 2020-0 Yes 1000mg Take 1,000 [place] (GLUCOPHAGE 6-26 mg by [place] ) 1000 MG 15:49: mouth 2 of tablet 59 times Medicin daily e (with meals). Sitagliptin 2020-0 Yes 100mg Take 100 [place] Phosphate 6-26 mg by [place] ([facility]) 15:49: mouth of 100 MG TABS 59 every Medicin morning. e Indication s: take 1/2 every morning amoxicillin 2020-0 Yes amoxicilli [facility] -clavulanat 6-26 n 875 College [...] e metformin 2020-0 Yes 1000mg Take 1,000 [facility] (GLUCOPHAGE 6-05 mg by [place] ) 1000 MG 16:04: mouth 2 of tablet 36 times Medicin daily e (with meals). Sitagliptin 2020-0 Yes 100mg Take 100 [place] Phosphate 6-05 mg by [place] ([facility]) 16:04: mouth of 100 MG TABS 36 every Medicin morning. e Indication s: take 1/2 every morning metformin 2020-0 Yes 1000mg Take 1,000 [facility] (GLUCOPHAGE 3-06 mg by [place] ) 1000 MG 17:22: mouth 2 of tablet 36 times Medicin daily e (with meals). Sitagliptin 2020-0 Yes 100mg Take 100 [place] Phosphate 3-06 mg by [place] ([facility]) 17:22: mouth of 100 MG TABS 36 every Medicin morning. e Indication s: take 1/2 every morning metformin 2020-0 Yes 1000mg Take 1,000 [place] (GLUCOPHAGE 2-03 mg by [place] ) 1000 MG 14:49: mouth 2 of tablet 31 times Medicin daily e (with meals). Sitagliptin Yes 100mg Take 100 [place] Phosphate 2-03 mg by [place] ([facility]) 14:49: mouth of 100 MG TABS 31 every Medicin morning. e Indication s: take 1/2 every morning minocycline 2018-06 Yes 100mg Take 1 Tab [place] (DYNACIN) 2-27 by mouth Colleg e 100 MG 00:00: two times of tablet 00 daily. For Medicin cellulitis e minocycline 2018-06 2020- No 100mg Take 1 Tab [place] (DYNACIN) 2-27 03-06 by mouth Colle ge [...] e mupirocin 2018-06 2020- No Apply to [place] [facility] calcium 1-12 06-05 wound in R [facility] (BACTROBAN) 00:00: 00:00 leg, twice of 2 % nasal 00 :00 a day Medicin ointment e metformin 2018-06 Yes 1000mg Take 1,000 [place] (GLUCOPHAGE 0-08 mg by [place] ) 1000 MG 20:58: mouth 2 of tablet 39 times Medicin daily e (with meals). Sitagliptin 2018-06 Yes 100mg Take 100 [place] Phosphate 0-08 mg by [place] ([facility]) 20:58: mouth of 100 MG TABS 39 every Medicin morning. e Indication s: take 1/2 every morning metformin 2018-06 Yes 1000mg Take 1,000 [facility] (GLUCOPHAGE 0-08 mg by [place] ) 1000 MG 13:24: mouth 2 of tablet 40 times Medicin daily e (with meals). Sitagliptin 2018-06 Yes 100mg Take 100 [place] Phosphate 0-08 mg by [place] ([facility]) 13:24: mouth of 100 MG TABS 40 every Medicin morning. e Indication s: take 1/2 every morning amoxicillin 2018-06 2019- No [id number] 1{tbl} Take 1 Tab [place] -clavulanat 0-08 11-06 by mouth Col lege e 00:00: 05:59 two times of (AUGMENTIN) 00 :00 daily for Med icin 875-125 MG 28 days. e per tablet amoxicillin 2018-06 2019- No [id number] 1{tbl} Take 1 Tab [place] -clavulanat 0-08 11-06 by mouth Col [facility]ge e 00:00: 05:59 two times of (AUGMENTIN) 00 :00 daily for Med icin 875-125 MG 28 days. e per tablet metformin 2019-0 Yes 1000mg Take 1,000 [place] (GLUCOPHAGE 9-24 mg by [place] ) 1000 MG 18:04: mouth 2 of tablet 17 times Medicin daily e (with meals). Sitagliptin 2019-0 Yes 100mg Take 100 [place] Phosphate 9-24 mg by [place] (JUN) 18:04: mouth of 100 MG TABS 17 every Medicin morning. e Indication s: take 1/2 every morning metformin 2019-0 Yes 1000mg Take 1,000 [facility] (GLUCOPHAGE 9-24 mg by [place] ) 1000 MG 18:04: mouth 2 of tablet 17 times Medicin daily e (with meals). Sitagliptin 2019-0 Yes 100mg Take 100 [place] Phosphate 9-24 mg by [place] () 18:04: mouth of 100 MG TABS 17 every Medicin morning. e Indication s: take 1/2 every morning metformin 2019-0 Yes 1000mg Take 1,000 [facility] (GLUCOPHAGE 9-24 mg by [place] ) 1000 MG 14:57: mouth 2 of tablet 11 times Medicin daily e (with meals). Sitagliptin 2019-0 Yes 100mg Take 100 [place] Phosphate 9-24 mg by [place] () 14:57: mouth of 100 MG TABS 11 every Medicin morning. e Indication s: take 1/2 every morning metformin 2019-0 Yes 1000mg Take 1,000 [place] (GLUCOPHAGE 9-11 mg by [place] ) 1000 MG 14:46: mouth 2 of tablet 14 times Medicin daily e (with meals). Sitagliptin 2019-0 Yes 50mg Take 50 mg [place] Phosphate 9-11 by mouth Colleg e () 14:46: every of 100 MG TABS 14 morning. Medi dalia Indication e s: take 1/2 every morning Vitamins A Yes [id number] Apply to [facility] & D ([facility]) 02-21 affected [facility] e[facility] CREA 00:00: area twice of 00 daily. Medicin e Vitamins A Yes [id number] Apply to [facility] & D ([facility]) 02-21 affected [facility]o ege CREA 00:00: area twice of 00 daily. Medicin e Vitamins A Yes [id number] Apply to [facility] & D ([facility]) 02-21 affected [facility] CREA 00:00: area twice of 00 daily. Medicin e Vitamins A Yes [id number] Apply to [facility] & D ([facility]) 02-21 affected [facility] CREA 00:00: area twice of 00 daily. Medicin e Vitamins A Yes [id number] Apply to [facility] & D ([facility]) 02-21 affected [facility] CREA 00:00: area twice of 00 daily. Medicin e Vitamins A Yes [id number] Apply to [facility] & D ([facility]) 02-21 affected [facility] CREA 00:00: area twice of 00 daily. Medicin e Vitamins A Yes [id number] Apply to [facility] & D ([facility]) 02-21 affected [facility] CREA 00:00: area twice of 00 daily. Medicin e Vitamins A Yes [id number] Apply to [facility] & D ([facility]) 02-21 affected [facility] CREA 00:00: area twice of 00 daily. Medicin e mupirocin Yes [id number] Apply to [facility] ([facility]CTROBAN) 02-21 affected [facility] 2 % 00:00: area of ointment 00 daily. Medicin e Vitamins A Yes [id number] Apply to [facility] & D ([facility]) 02-21 affected [facility] CREA 00:00: area twice of 00 daily. Medicin e mupirocin Yes [id number] Apply to [facility] ([place]ROB[place]) 02-21 affected [facility] 2 % 00:00: area of ointment 00 daily. Medicin e Vitamins A Yes [id number] Apply to [facility] & D ([facility]) 02-21 affected [facility] CREA 00:00: area twice of 00 daily. Medicin e mupirocin Yes [id number] Apply to [facility] ([place]) 02-21 affected [facility] 2 % 00:00: area of ointment 00 daily. Medicin e Vitamins A Yes [id number] Apply to [facility] & D ([facility]) 02-21 affected [facility] CREA 00:00: area twice of 00 daily. Medicin e mupirocin 2018- Yes [id number] Apply to [facility] ([place]) 02-21 affected [facility] 2 % 00:00: area of ointment 00 daily. Medicin e Vitamins A Yes [id number] Apply to [facility] & D ([facility]) 02-21 affected [facility] CREA 00:00: area twice of 00 daily. Medicin e mupirocin 0 Yes [id number] Apply to [facility] ([place]) 02-21 affected [facility] 2 % 00:00: area of ointment 00 daily. Medicin e Vitamins A Yes [id number] Apply to [facility] & D ([facility]) 02-21 affected [facility] CREA 00:00: area twice of 00 daily. Medicin e Vitamins A 0 Yes [id number] Apply to [facility] & D ([employer]) 02-21 affected [facility] CREA 00:00: area twice of 00 daily. Medicin e mupirocin Yes [id number] Apply to [facility] ([place]) 02-21 affected [facility] 2 % 00:00: area of ointment 00 daily. Medicin e Vitamins A Yes [id number] Apply to [facility] & D ([facility]) 02-21 affected [facility] CREA 00:00: area twice of 00 daily. Medicin e Vitamins A 2018-0 Yes [id number] Apply to [facility] & D ([facility]) 02-21 affected [facility] CREA 00:00: area twice of 00 daily. Medicin e Vitamins A Yes [id number] Apply to [facility] & D ([facility]) 02-21 affected [facility] CREA 00:00: area twice of 00 daily. Medicin e Vitamins A Yes [id number] Apply to [facility] & D ([facility]) 02-21 affected [facility] CREA 00:00: area twice of 00 daily. Medicin e Vitamins A Yes [id number] Apply to [facility] & D ([facility]) 02-21 affected [facility] CREA 00:00: area twice of 00 daily. Medicin e Vitamins A Yes [id number] Apply to [facility] & D ([facility]) 02-21 affected [facility] CREA 00:00: area twice of 00 daily. Medicin e Vitamins A Yes [id number] Apply to [facility] & D ([facility]) 02-21 affected [facility] CREA 00:00: area twice of 00 daily. Medicin e Vitamins A Yes [id number] Apply to [facility] & D ([facility]) 02-21 affected [facility] CREA 00:00: area twice of 00 daily. Medicin e Vitamins A Yes [id number] Apply to [facility] & D ([facility]) 02-21 affected [facility] CREA 00:00: area twice of 00 daily. Medicin e Vitamins A Yes [id number] Apply to [facility] & D ([facility]) 02-21 affected [facility] CREA 00:00: area twice of 00 daily. Medicin e Vitamins A Yes [id number] Apply to [facility] & D ([facility]) 02-21 affected [facility] CREA 00:00: area twice of 00 daily. Medicin e mupirocin 2020- No [id number] Apply to [facility] ([facility]) 02-21 affected [facility] 2 % 00:00: 00:00 area of ointment 00 :00 daily. Medicin e amoxicillin 2019- No [id number] 1{tbl} Take 1 Tab [facility] -clavulanat 02-2110 by mouth [facility] e 00:00: 04:59 two times of (AUGMENTIN) 00 :00 daily for Med icin 875-125 MG 28 days. e per tablet amoxicillin 2019- No [id number] 1{tbl} Take 1 Tab [facility] -clavulanat 9-11 10-10 by mouth [facility] e 00:00: 04:59 two times of (AUGMENTIN) 00 :00 daily for Med icin 875-125 MG 28 days. e per tablet amoxicillin 2019- No [id number] 1{tbl} Take 1 Tab [facility] -clavulanat 9-11 10-10 by mouth [facility] 00:00: 04:59 two times of (AUGMENTIN) 00 :00 daily for Med icin 875-125 MG 28 days. e per tablet amoxicillin 2019- No [id number] 1{tbl} Take 1 Tab [facility] -clavulanat 9-11 10-10 by mouth [facility] 00:00: 04:59 two times of (AUGMENTIN) 00 :00 daily for Med icin 875-125 MG 28 days. e per tablet amoxicillin 2019- No [id number] 1{tbl} Take 1 Tab [facility] -clavulanat 9-11 10-08 by mouth [facility] 00:00: 00:00 two times of (AUGMENTIN) 00 :00 daily for Med icin 875-125 MG 28 days. e per tablet amoxicillin 2019- No [id number] 1{tbl} Take 1 Tab [facility] -clavulanat 9-03 09-11 by mouth [facility] 00:00: 00:00 two times of (AUGMENTIN) 00 :00 daily for Med icin 875-125 MG 14 days. e per tablet metformin Yes 1000mg Take 1,000 [facility] (GLUCOPHAGE 8-26 mg by [place] ) 1000 MG 19:16: mouth 2 of tablet 35 times Medicin daily e (with meals). Sitagliptin Yes 50mg Take 50 mg [facility] Phosphate 8-26 by mouth Colleg e (JANUVIA) 19:16: every of 100 MG TABS 35 morning. Medi dalia Indication e s: take 1/2 every morning cephALEXin 2019- No [id number] 500mg Take 1 Cap [facility] (KEFLEX) 8- 09-10 00 by mouth [facility] 500 MG 00:00: 04:59 four times of capsule 00 :00 daily for Medicin 14 days. e amoxicillin 2019- No 2{tbl} Take 2 [facility] -clavulanat 8-13 08-26 Tabs by [facility] e 00:00: 00:00 mouth of (AUGMENTIN) 00 :00 daily. Medici n 250-125 MG e per tablet Tamsulosin 2019-0 Yes .4mg Take 0.4 [place] [facility] HCl 0.4 MG 8-12 mg by [facility] CAPS 00:00: mouth of 00 daily. Medicin e Tamsulosin 2019-0 Yes .4mg Take 0.4 [place] [facility] HCl 0.4 MG 8-12 mg by [facility] CAPS 00:00: mouth of 00 daily. Medicin e Tamsulosin 2019-0 Yes .4mg Take 0.4 [place] [facility] HCl 0.4 MG 8-12 mg by [facility] CAPS 00:00: mouth of 00 daily. Medicin e losartan-hy 2019-0 Yes [facility] drochloroth 8-12 [place] iazide 00:00: of (HYZAAR) 00 Medicin 100-25 MG e per tablet Tamsulosin 2019-0 Yes [facility] HCl 0.4 MG 8-12 [facility] CAPS 00:00: of 00 Medicin e losartan-hy 2019-0 Yes Take by [facility] drochloroth 8-12 mouth [place] iazide 00:00: daily. of (HYZAAR) 00 Medicin 100-25 MG e per tablet Tamsulosin 2019-0 Yes Take by [place] [facility] HCl 0.4 MG 8-12 mouth [place] CAPS 00:00: daily. of 00 Medicin e losartan-hy 2019-0 Yes Take by [facility] drochloroth 8-12 mouth [place] iazide 00:00: daily. of (HYZAAR) 00 Medicin 100-25 MG e per tablet Tamsulosin 2019-0 Yes Take by [place] [facility] HCl 0.4 MG 8-12 mouth [facility] CAPS 00:00: daily. of 00 Medicin e losartan-hy 2019-0 Yes Take by [facility] drochloroth 8-12 mouth [place] iazide 00:00: daily. of (HYZAAR) 00 Medicin 100-25 MG e per tablet Tamsulosin 2019-0 Yes Take by [place] [facility] HCl 0.4 MG 8-12 mouth [facility] CAPS 00:00: daily. of 00 Medicin e losartan-hy 2019-0 Yes Take by [facility] drochloroth 8-12 mouth [place] iazide 00:00: daily. of (HYZAAR) 00 Medicin 100-25 MG e per tablet Tamsulosin 2019-0 Yes Take by [place] [facility] HCl 0.4 MG 8-12 mouth [facility] CAPS 00:00: daily. of 00 Medicin e losartan-hy 2019-0 Yes Take by [facility] drochloroth 8-12 mouth [place] iazide 00:00: daily. of (HYZAAR) 00 Medicin 100-25 MG e per tablet Tamsulosin 2019-0 Yes .4mg Take 0.4 [place] [facility] HCl 0.4 MG 8-12 mg by [facility] CAPS 00:00: mouth of 00 daily. Medicin e losartan-hy 2019-0 Yes Take by [facility] drochloroth 8-12 mouth [place] iazide 00:00: daily. of (HYZAAR) 00 Medicin 100-25 MG e per tablet Tamsulosin 2019-0 Yes .4mg Take 0.4 [place] [facility] HCl 0.4 MG 8-12 mg by [facility] CAPS 00:00: mouth of 00 daily. Medicin e Tamsulosin 2019-0 Yes .4mg Take 0.4 [place] [facility] HCl 0.4 MG 8-12 mg by [facility] CAPS 00:00: mouth of 00 daily. Medicin e losartan-hy 2019-0 Yes Take by [facility] drochloroth 8-12 mouth [place] iazide 00:00: daily. of (HYZAAR) 00 Medicin 100-25 MG e per tablet Tamsulosin 2019-0 Yes .4mg Take 0.4 [place] [facility] HCl 0.4 MG 8-12 mg by [facility] CAPS 00:00: mouth of 00 daily. Medicin e losartan-hy 2019-0 Yes Take by [facility] drochloroth 8-12 mouth [place] iazide 00:00: daily. of (HYZAAR) 00 Medicin 100-25 MG e per tablet Tamsulosin 2019-0 Yes .4mg Take 0.4 [place] [facility] HCl 0.4 MG 8-12 mg by [facility] CAPS 00:00: mouth of 00 daily. Medicin e losartan-hy 2019-0 Yes Take by [facility] drochloroth 8-12 mouth [place] iazide 00:00: daily. of (HYZAAR) 00 Medicin 100-25 MG e per tablet Tamsulosin 2019-0 Yes .4mg Take 0.4 [place] [facility] HCl 0.4 MG 8-12 mg by [facility] CAPS 00:00: mouth of 00 daily. Medicin e losartan-hy 2019-0 Yes Take by [facility] drochloroth 8-12 mouth [place] iazide 00:00: daily. of (HYZAAR) 00 Medicin 100-25 MG e per tablet Tamsulosin 2019-0 Yes .4mg Take 0.4 [place] [facility] HCl 0.4 MG 8-12 mg by [facility] CAPS 00:00: mouth of 00 daily. Medicin e losartan-hy 2019-0 Yes Take by [facility] drochloroth 8-12 mouth [place] iazide 00:00: daily. of (HYZAAR) 00 Medicin 100-25 MG e per tablet Tamsulosin 2019-0 Yes .4mg Take 0.4 [place] [facility] HCl 0.4 MG 8-12 mg by [facility] CAPS 00:00: mouth of 00 daily. Medicin e losartan-hy 2019-0 Yes Take by [facility] drochloroth 8-12 mouth [place] iazide 00:00: daily. of (HYZAAR) 00 Medicin 100-25 MG e per tablet Tamsulosin 2019-0 Yes .4mg Take 0.4 [place] [facility] HCl 0.4 MG 8-12 mg by [facility] CAPS 00:00: mouth of 00 daily. Medicin e losartan-hy 2019-0 Yes Take [facility] drochloroth 812 mouth [place] [facility] daily. of (HYZAAR) 00 Medicin 100-25 MG e per tablet Tamsulosin 2019-0 Yes .4mg Take 0.4 [place] [facility] HCl 0.4 MG 8-12 mg by [facility] CAPS 00:00: mouth of 00 daily. Medicin e losartan-hy 2019-0 Yes Take by [facility] drochloroth 8-12 mouth [place] iazide 00:00: daily. of (HYZAAR) 00 Medicin 100-25 MG e per tablet Tamsulosin 2019-0 Yes .4mg Take 0.4 [place] [facility] HCl 0.4 MG 8-12 mg by [facility] CAPS 00:00: mouth of 00 daily. Medicin e Tamsulosin 2019-0 Yes .4mg Take 0.4 [place] [facility] HCl 0.4 MG 8-12 mg by [facility] CAPS 00:00: mouth of 00 daily. Medicin e Tamsulosin 2019-0 Yes .4mg Take 0.4 [place] [facility] HCl 0.4 MG 8-12 mg by [facility] CAPS 00:00: mouth of 00 daily. Medicin e Tamsulosin 2019-0 Yes .4mg Take 0.4 [place] [facility] HCl 0.4 MG 8-12 mg by [facility] CAPS 00:00: mouth of 00 daily. Medicin e Tamsulosin 2019-0 Yes .4mg Take 0.4 [place] [facility] HCl 0.4 MG 8-12 mg by [facility] CAPS 00:00: mouth of 00 daily. Medicin e Tamsulosin 2019-0 Yes .4mg Take 0.4 [place] [facility] HCl 0.4 MG 8-12 mg by [facility] CAPS 00:00: mouth of 00 daily. Medicin e Tamsulosin 2019-0 Yes .4mg Take 0.4 [place] [facility] HCl 0.4 MG 8-12 mg by [facility] CAPS 00:00: mouth of 00 daily. Medicin e Tamsulosin 2019-0 Yes .4mg Take 0.4 [place] [facility] HCl 0.4 MG 8-12 mg by [facility] CAPS 00:00: mouth of 00 daily. Medicin e Tamsulosin 2019-0 Yes .4mg Take 0.4 [place] [facility] HCl 0.4 MG 8-12 mg by [facility] CAPS 00:00: mouth of 00 daily. Medicin e Tamsulosin 2019-0 Yes .4mg Take 0.4 [place] [facility] HCl 0.4 MG 8-12 mg by [facility] CAPS 00:00: mouth of 00 daily. Medicin e sulfamethox 2019- No [facility] azole-trime 01-18 [place] thoprim 00:00: 00:00 of (BACTRIM 00 :00 Medicin DS, SEPTRA e DS) 800-160 MG per tablet ciprofloxac 2019- No 1{tbl} Take 1 Tab [facility] in (CIPRO) 01-18 by mouth [facility] 500 MG 00:00: 00:00 every 12 of tablet 00 :00 hours. Medicin e amlodipine 2018-0 Yes [id number] Take by [place] [facility] (NORVASC) 01-17 [facility] 2.5 MG 00:00: daily. 5 of tablet 00 mg in AM Medicin 2.5 mg in e PM Indication s: CORONARY ARTERY DISEASE Diltiazem 2019-0 Yes Take by [facility] or HCl Coated 01-17 mouth [place] Beads 360 00:00: daily. of MG TB24 00 Medicin e amlodipine 2018-0 Yes [id number] Take by [place] [facility] 8 mouth [facility] 2.5 MG 00:00: daily. 5 of tablet 00 mg in AM Medicin 2.5 mg in e PM Indication s: CORONARY ARTERY DISEASE Diltiazem 2019-0 Yes Take by [facility] HCl Coated mouth [place] Beads 360 00:00: daily. of MG TB24 00 Medicin e amlodipine 2019-0 Yes [id number] Take by [facility] ([facility] 8 mouth [facility] 2.5 MG 00:00: daily. 5 of tablet 00 mg in AM Medicin 2.5 mg in e PM Indication s: CORONARY ARTERY DISEASE Diltiazem 2019-0 Yes Take by [facility] HCl Coated [address] [place] [address] B[facility] 360 00:00: daily. of MG TB24 Medicin e amlodipine 2018-0 Yes [facility] ([facility] 01-17 [facility] 2.5 MG 00:00: of tablet Medicin e Diltiazem 2018-0 Yes [facility] HCl Coated [address] [place] [address] Beads 360 00:00: of MG TB24 Medicin e oxybutynin 2019-0 Yes [facility] (DITROPAN) 01-17 [place] 5 MG tablet 00:00: of 00 Medicin e amlodipine 2018-0 Yes Take by [facility] ([facility] 01-17 mouth [place] 2.5 MG 00:00: daily. of tablet Medicin e Diltiazem Yes Take by [facility] HCl Coated 01-17 mouth [place] B[facility] 360 00:00: daily. of MG TB24 Medicin e oxybutynin 2018- Yes 5mg Take 5 mg [facility] (DITROPAN) 01-17 by mouth [facility] 5 MG tablet 00:00: daily. of 00 Medicin e amlodipine 2018-0 Yes Take by [facility] ([facility] 01-17 mouth [facility] 2.5 MG 00:00: daily. of tablet 00 Medicin e Diltiazem 2019-0 Yes Take by [facility] HCl Coated [address] [place] [address] Beads 360 00:00: daily. of MG TB24 Medicin e oxybutynin 2018-0 Yes 5mg Take 5 mg [facility] (DITROPAN) 01-17 by mouth [facility] 5 MG tablet 00:00: daily. of 00 Medicin e amlodipine 2019-0 Yes Take by [place] [facility] (NORVAS) 01-17 mouth [facility] 2.5 MG 00:00: daily. of tablet 00 Medicin e Diltiazem Yes Take by [facility] HCl Coated 01-17 [facility] Beads 360 00:00: daily. of MG TB24 Medicin e oxybutynin Yes 5mg Take 5 mg [facility] (DITROPAN) 01-17 by mouth [facility] 5 MG tablet 00:00: daily. of 00 Medicin e amlodipine Yes Take by [place] [facility] (NORVAS) 01-17 mouth [facility] 2.5 MG 00:00: daily. of tablet 00 Medicin e Diltiazem Yes Take by [facility] HCl Coated 01-17 [facility] Beads 360 00:00: daily. of MG TB24 Medicin e oxybutynin Yes 5mg Take 5 mg [facility] (DITROPAN) 01-17 by mouth [facility] 5 MG tablet 00:00: daily. of 00 Medicin e amlodipine Yes Take by [place] [facility] mouth [facility] 2.5 MG 00:00: daily. of tablet 00 Medicin e Diltiazem Yes Take by [facility] HCl Coated 01-17 [facility] Beads 360 00:00: daily. of MG TB24 Medicin e oxybutynin Yes 5mg Take 5 mg [facility] (DITROPAN) 01-17 by mouth [facility] 5 MG tablet 00:00: daily. of 00 Medicin e amlodipine Yes [id number] Take by [place] [facility] ([facility] 01-17 mouth [facility] 2.5 MG 00:00: daily. 5 of tablet 00 mg in AM Medicin 2.5 mg in e PM Indication s: CORONARY ARTERY DISEASE Diltiazem 2019-0 Yes Take by [facility] HCl Coated 01-17 mouth [facility] 360 00:00: daily. of MG TB24 Medicin e amlodipine Yes Take by [place] [facility] (NORVAS) 01-17 mouth [facility] 2.5 MG 00:00: daily. of tablet 00 Medicin e Diltiazem Yes Take by [facility] HCl Coated 01-17 [facility] Beads 360 00:00: daily. of MG TB24 Medicin e oxybutynin 2019-0 Yes 5mg Take 5 mg [facility] (DITROPAN) 01-17 by mouth [facility] 5 MG tablet 00:00: daily. of 00 Medicin e amlodipine 2019-0 Yes Take by [place] [facility] (NORVASC) 01-17 mouth [facility] 2.5 MG 00:00: daily. of tablet 00 Medicin e Diltiazem 2018- Yes Take by [facility] HCl Coated 01-17 mouth [facility] 360 00:00: daily. of MG TB24 Medicin e oxybutynin 2018- Yes 5mg Take 5 mg [facility] (DITROPAN) 01-17 by mouth [facility] 5 MG tablet 00:00: daily. of 00 Medicin e amlodipine 2018- Yes Take by [place] [facility] (NORVAS) 01-17 mouth [facility] 2.5 MG 00:00: daily. of tablet Medicin e Diltiazem Yes Take by [facility] HCl Coated 01-17 [facility] Beads 360 00:00: daily. of MG TB24 Medicin e oxybutynin Yes 5mg Take 5 mg [facility] (DITROPAN) 01-17 by mouth [facility] 5 MG tablet 00:00: daily. of 00 Medicin e amlodipine 2018- Yes Take by [place] [facility] (NORVASC) 01-17 mouth [facility] 2.5 MG 00:00: daily. of tablet Medicin e Diltiazem 2018- Yes Take by [facility] HCl Coated 01-17 mouth [facility] 360 00:00: daily. of MG TB24 Medicin e oxybutynin 2018- Yes 5mg Take 5 mg [facility] (DITROPAN) 01-17 by mouth [facility] 5 MG tablet 00:00: daily. of 00 Medicin e amlodipine 2018-0 Yes Take by [place] [facility] (NORVASC) 01-17 mouth [facility] 2.5 MG 00:00: daily. of tablet 00 Medicin e Diltiazem 2018-0 Yes Take by [facility] HCl Coated 01-17 mouth [facility] 360 00:00: daily. of MG TB24 Medicin e oxybutynin 2018- Yes 5mg Take 5 mg [facility] (DITROPAN) 01-17 by mouth [facility] 5 MG tablet 00:00: daily. of 00 Medicin e amlodipine Yes Take by [place] [facility] (NORVAS) 01-17 mouth [facility] 2.5 MG 00:00: daily. of tablet 00 Medicin e Diltiazem Yes Take by [facility] HCl Coated 01-17 [facility] Beads 360 00:00: daily. of MG TB24 00 Medicin e oxybutynin Yes 5mg Take 5 mg [facility] (DITROPAN) 01-17 by mouth [facility] 5 MG tablet 00:00: daily. of 00 Medicin e amlodipine Yes Take by [place] [facility] ([employer] [facility] [employer] [employer] 01-17 mouth [facility] 2.5 MG 00:00: daily. of tablet 00 Medicin e Diltiazem Yes Take by [facility] HCl Coated 01-17 [facility] Beads 360 00:00: daily. of MG TB24 Medicin e oxybutynin Yes 5mg Take 5 mg [facility] (DITROPAN) 01-17 by mouth [facility] 5 MG tablet 00:00: daily. of 00 Medicin e amlodipine Yes Take by [place] [facility] ([employer]) 01-17 mouth [facility] 2.5 MG 00:00: daily. of tablet Medicin e Diltiazem Yes Take by [facility] HCl Coated 01-17 [facility] Beads 360 00:00: daily. of MG TB24 Medicin e amlodipine Yes Take by [place] [facility] ([employer]) 01-17 mouth [facility] 2.5 MG 00:00: daily. of tablet 00 Medicin e Diltiazem Yes Take by [facility] HCl Coated 01-17 [facility] Beads 360 00:00: daily. of MG TB24 Medicin e amlodipine 0 Yes [id number] Take by [place] [facility] ([employer]) 01-17 mouth [facility] 2.5 MG 00:00: daily. 5 of tablet 00 mg in AM Medicin 2.5 mg in e PM Indication s: CORONARY ARTERY DISEASE Diltiazem 2018-0 Yes Take by [facility] HCl Coated 01-17 mouth [place] Beads 360 00:00: daily. of MG TB24 00 Medicin e amlodipine 2018-0 Yes [id number] Take by [place] [facility] (NORVAS) 01-17 mouth [facility] 2.5 MG 00:00: daily. 5 of tablet 00 mg in AM Medicin 2.5 mg in e PM Indication s: CORONARY ARTERY DISEASE Diltiazem 2019-0 Yes Take by [facility] HCl Coated - mouth [place] Beads 360 00:00: daily. of MG TB24 00 Medicin e amlodipine 2019-0 Yes [id number] Take by [place] [facility] (NORVASC) 807 mouth [facility] 2.5 MG 00:00: daily. 5 of tablet 00 mg in AM Medicin 2.5 mg in e PM Indication s: CORONARY ARTERY DISEASE Diltiazem 2019-0 Yes Take by [facility] HCl Coated - mouth [place] Beads 360 00:00: daily. of MG TB24 00 Medicin e amlodipine 2019-0 Yes [id number] Take by [place] [facility] (NORVAS) 8 mouth [facility] 2.5 MG 00:00: daily. 5 of tablet 00 mg in AM Medicin 2.5 mg in e PM Indication s: CORONARY ARTERY DISEASE Diltiazem 2019-0 Yes Take by [facility] HCl Coated [address] [facility] 360 00:00: daily. of MG TB24 00 Medicin e amlodipine 2019-0 Yes [id number] Take by [place] [facility] (NORVAS) 01-17 mouth [facility] 2.5 MG 00:00: daily. 5 of tablet 00 mg in AM Medicin 2.5 mg in e PM Indication s: CORONARY ARTERY DISEASE Diltiazem 2019-0 Yes Take by [facility] HCl Coated [facility] mouth [place] Beads 360 00:00: daily. of MG TB24 00 Medicin e amlodipine 2019-0 Yes [id number] Take by [place] [facility] (NORVASC) 01-17 mouth [facility] 2.5 MG 00:00: daily. 5 of tablet 00 mg in AM Medicin 2.5 mg in e PM Indication s: CORONARY ARTERY DISEASE Diltiazem 2019-0 Yes Take by [facility] HCl Coated [facility] mouth [place] Beads 360 00:00: daily. of MG TB24 00 Medicin e amlodipine 2019-0 Yes [id number] Take by [place] [facility] (NORVAS) 807 mouth [facility] 2.5 MG 00:00: daily. 5 of tablet 00 mg in AM Medicin 2.5 mg in e PM Indication s: CORONARY ARTERY DISEASE Diltiazem 2019-0 Yes Take by [facility] HCl Coated [facility] mouth [place] Beads 360 00:00: daily. of MG TB24 00 Medicin e amlodipine 2018-0 Yes [id number] Take by [place] [facility] (NORVASC) 01-17 mouth [facility] 2.5 MG 00:00: daily. 5 of tablet 00 mg in AM Medicin 2.5 mg in e PM Indication s: CORONARY ARTERY DISEASE Diltiazem 2019-0 Yes Take by [facility] HCl Coated 01-17 mouth [facility] 360 00:00: daily. of MG TB24 Medicin e amlodipine 2018-0 Yes [id number] Take by [place] [facility] (NORVASC) 8 mouth [facility] 2.5 MG 00:00: daily. 5 of tablet 00 mg in AM Medicin 2.5 mg in e PM Indication s: CORONARY ARTERY DISEASE Diltiazem 2019-0 Yes Take by [facility] HCl Coated 01-17 mouth [place] Beads 360 00:00: daily. of MG TB24 Medicin e oxybutynin 2020- No 5mg Take 5 mg [facility] (DITROPAN) 01-17-17 by mouth [facility] 5 MG tablet 00:00: 00:00 daily. of 00 : Medicin e simvastatin Yes 20mg Take 20 mg [place] (ZOCOR) 20 6-16 by mouth [facility] MG tablet 00:00: daily. of Medicin e simvastatin Yes 20mg Take 20 mg [facility] (ZOCOR) 20 6-16 by mouth [facility] MG tablet 00:00: daily. of Medicin e simvastatin Yes 20mg Take 20 mg [place] (ZOCOR) 20 6-16 by mouth [facility] MG tablet 00:00: daily. of Medicin e simvastatin 0 Yes [place] (ZOCOR) 20 6-16 College MG tablet 00:00: of Medicin e simvastatin 2018-0 Yes 20mg [...] simvastatin 2019-0 Yes 20mg Take 20 mg [facility] ([facility]) 20 6-16 by mouth Colle ge MG tablet 00:00: daily. of Medicin e simvastatin 2018-0 Yes 20mg Take 20 mg [facility] ([facility]) 20 6-16 by mouth [...] simvastatin 2018-0 Yes 20mg Take 20 mg [facility] ([facility]) 20 6-16 by mouth [...] simvastatin 2019-0 Yes 20mg Take 20 mg [facility] ([facility]) 20 6-16 by mouth Colle ge MG tablet 00:00: daily. of Medicin e simvastatin 2019-0 Yes 20mg Take 20 mg [facility] ([facility]) 20 6-16 by mouth Colle ge MG tablet 00:00: daily. of Medicin e simvastatin 2019-0 Yes 20mg Take 20 mg [facility] ([facility]) 20 6-16 by mouth Colle ge MG tablet 00:00: daily. of Medicin e simvastatin 2019-0 Yes 20mg Take 20 mg [place] ([facility]) 20 6-16 by mouth Colle ge MG tablet 00:00: daily. of Medicin e simvastatin 2019-0 Yes 20mg Take 20 mg [facility] ([facility]) 20 6-16 by mouth Colle ge MG tablet 00:00: daily. of Medicin e simvastatin 2019-0 Yes 20mg Take 20 mg [facility] ([facility]) 20 6-16 by mouth [...] 100 [facility] ne 6-08 mcg by [place] (SYNTHROID) 00:00: mouth of 100 MCG 00 daily. Medicin tablet e glimepiride 2019-0 Yes 4mg Take 4 mg [facility] (AMARYL) 4 6-08 by mouth Colle ge MG tablet 00:00: two times of 00 daily. Medicin e levothyroxi 2019-0 Yes 100ug Take 100 [facility] ne 6-08 mcg by [place] (SYNTHROID) 00:00: mouth of 100 MCG 00 [...] daily. Medicin tablet e glimepiride 2019-0 Yes [facility] (AMARYL) 4 6-08 [facility] MG tablet 00:00: of 00 Medicin e levothyroxi 2019-0 Yes [facility] ne 6-08 [facility] (SYNTHROID) 00:00: of 100 MCG 00 Medicin tablet e glimepiride 2019-0 Yes 4mg Take 4 mg [facility] (AMARYL) 4 6-08 by mouth [facility]le [facility] MG tablet 00:00: every of 00 morning. Medicin e levothyroxi 2019-0 Yes 100ug Take 100 [facility] [place] ne 6-08 mcg by [place] (SYNTHROID) 00:00: mouth of 100 MCG 00 daily. Medicin tablet e glimepiride 2019-0 Yes 4mg Take 4 mg [facility] [place] (AMARYL) 4 6-08 by mouth [facility]le [facility] MG tablet 00:00: two times of 00 daily. Medicin e levothyroxi 2019-0 Yes 100ug Take 100 [facility] [place] ne 6-08 mcg by [place] (SYNTHROID) 00:00: mouth of 100 MCG 00 daily. Medicin tablet e glimepiride 2019-0 Yes 4mg Take 4 mg [facility] (AMARYL) 4 6-08 by mouth [facility]le [facility] MG tablet 00:00: two times of 00 daily. Medicin e levothyroxi 2019-0 Yes 100ug Take 100 [facility] [place] ne 6-08 mcg by [place] (SYNTHROID) 00:00: mouth of 100 MCG 00 daily. Medicin tablet e glimepiride 2019-0 Yes 4mg Take 4 mg [facility] [place] (AMARYL) 4 6-08 by mouth [facility] MG tablet 00:00: two times of 00 daily. Medicin e levothyroxi 2019-0 Yes 100ug Take 100 [facility] [place] ne 6-08 mcg by [place] (SYNTHROID) 00:00: mouth of 100 MCG 00 daily. Medicin tablet e glimepiride 2019-0 Yes 4mg Take 4 mg [facility] [place] (AMARYL) 4 6-08 by mouth [facility] MG tablet 00:00: two times of 00 daily. Medicin e levothyroxi 2019-0 Yes 100ug Take 100 [facility] ne 6-08 mcg by [place] (SYNTHROID) 00:00: mouth of 100 MCG 00 [...] 100 [facility] ne 6-08 mcg by [place] (SYNTHROID) 00:00: mouth of 100 MCG 00 daily. Medicin tablet e levothyroxi 2019-0 Yes 100ug Take 100 [facility] [place] ne 6-08 mcg by [place] (SYNTHROID) 00:00: mouth of 100 MCG 00 daily. Medicin tablet e glimepiride 2019-0 Yes 4mg Take 4 mg [facility] [place] (AMARYL) 4 6-08 by mouth [facility]le [facility] MG tablet 00:00: two times of 00 daily. Medicin e levothyroxi 2019-0 Yes 100ug Take 100 [facility] [place] ne 6-08 mcg by [place] (SYNTHROID) 00:00: mouth of 100 MCG 00 daily. Medicin tablet e glimepiride 2019-0 Yes 4mg Take 4 mg [facility] [place] (AMARYL) 4 6-08 by mouth [facility]le [facility] MG tablet 00:00: two times of 00 daily. Medicin e levothyroxi 2019-0 Yes 100ug Take 100 [facility] [place] ne 6-08 mcg by [place] (SYNTHROID) 00:00: mouth of 100 MCG 00 daily. Medicin tablet e glimepiride 2019-0 Yes 4mg Take 4 mg [facility] [place] (AMARYL) 4 6-08 by mouth Colle ge MG tablet 00:00: two times of 00 daily. Medicin e levothyroxi 2019-0 Yes 100ug Take 100 [facility] [place] ne 6-08 mcg by [place] (SYNTHROID) 00:00: mouth of 100 MCG 00 daily. Medicin tablet e glimepiride 2019-0 Yes 4mg Take 4 mg [facility] [place] (AMARYL) 4 6-08 by mouth [facility]le [facility] MG tablet 00:00: two times of 00 daily. Medicin e levothyroxi 2019-0 Yes 100ug Take 100 [facility] [place] ne 6-08 mcg by [place] (SYNTHROID) 00:00: mouth of 100 MCG 00 daily. Medicin tablet e glimepiride 2019-0 Yes 4mg Take 4 mg [facility] [place] (AMARYL) 4 6-08 by mouth [facility]le [facility] MG tablet 00:00: two times of 00 daily. Medicin e levothyroxi 2019-0 Yes 100ug Take 100 [facility] [place] ne 6-08 mcg by [place] (SYNTHROID) 00:00: mouth of 100 MCG 00 daily. Medicin tablet e glimepiride 2019-0 Yes 4mg Take 4 mg [facility] [place] (AMARYL) 4 6-08 by mouth Colle [facility] MG tablet 00:00: two times of 00 daily. Medicin e levothyroxi 2019-0 Yes 100ug Take 100 [facility] [place] ne 6-08 mcg by [place] (SYNTHROID) 00:00: mouth of 100 MCG 00 daily. Medicin tablet e glimepiride 2019-0 Yes 4mg Take 4 mg [facility] [place] (AMARYL) 4 6-08 by mouth Colle ge MG tablet 00:00: two times of 00 daily. Medicin e levothyroxi 2019-0 Yes 100ug Take 100 [facility] [place] ne 6-08 mcg by [place] (SYNTHROID) 00:00: mouth of 100 MCG 00 daily. Medicin tablet e glimepiride 2019-0 Yes 4mg Take 4 mg [facility] [place] (AMARYL) 4 6-08 by mouth Colle ge MG tablet 00:00: two times of 00 daily. Medicin e levothyroxi 2019-0 Yes 100ug Take 100 [facility] ne 6-08 mcg by [place] (SYNTHROID) 00:00: mouth of 100 MCG 00 [...] 100 [facility] ne 6-08 mcg by [place] (SYNTHROID) 00:00: mouth of 100 MCG 00 daily. Medicin tablet e levothyroxi 2019-0 Yes 100ug Take 100 [facility] [place] ne 6-08 mcg by [place] (SYNTHROID) 00:00: mouth of 100 MCG 00 daily. Medicin tablet e glimepiride 2019-0 Yes 4mg Take 4 mg [facility] [place] (AMARYL) 4 6-08 by mouth Colle ge MG tablet 00:00: two times of 00 daily. Medicin e levothyroxi 2019-0 Yes 100ug Take 100 [facility] ne 6-08 mcg by [place] (SYNTHROID) 00:00: mouth of 100 MCG 00 daily. Medicin tablet e glimepiride 2019-0 Yes 4mg Take 4 mg [facility] [place] (AMARYL) 4 6-08 by mouth Colle ge MG tablet 00:00: two times of 00 daily. Medicin e levothyroxi 2019-0 Yes 100ug Take 100 [facility] ne 6-08 mcg by [place] (SYNTHROID) 00:00: mouth of 100 MCG 00 daily. Medicin tablet e glimepiride 2019-0 Yes 4mg Take 4 mg [facility] [place] (AMARYL) 4 6-08 by mouth Colle ge MG tablet 00:00: two times of 00 daily. Medicin e levothyroxi 2019-0 Yes 100ug Take 100 [facility] ne 6-08 mcg by [place] (SYNTHROID) 00:00: mouth of 100 MCG 00 daily. Medicin tablet e glimepiride 2019-0 Yes 4mg Take 4 mg [facility] [place] (AMARYL) 4 6-08 by mouth Colle ge MG tablet 00:00: two times of 00 daily. Medicin e levothyroxi 2019-0 Yes 100ug Take 100 [facility] [place] ne 6-08 mcg by [place] (SYNTHROID) 00:00: mouth of 100 MCG 00 daily. Medicin tablet e glimepiride 2019-0 Yes 4mg Take 4 mg [facility] (AMARYL) 4 6-08 by mouth Colle ge MG tablet 00:00: two times of 00 daily. Medicin e levothyroxi 2019-0 Yes 100ug Take 100 [facility] ne 6-08 mcg by [place] (SYNTHROID) 00:00: mouth of 100 MCG 00 daily. Medicin tablet e glimepiride 2019-0 Yes 4mg Take 4 mg [facility] [place] (AMARYL) 4 6-08 by mouth Colle ge MG tablet 00:00: two times of 00 daily. Medicin e levothyroxi 2019-0 Yes 100ug Take 100 [facility] ne 6-08 mcg by [place] (SYNTHROID) 00:00: mouth of 100 MCG 00 daily. Medicin tablet e glimepiride 2019-0 Yes 4mg Take 4 mg [facility] (AMARYL) 4 6-08 by mouth Colle ge MG tablet 00:00: two times of 00 daily. Medicin e levothyroxi 2019-0 Yes 100ug Take 100 [facility] ne 6-08 mcg by [place] (SYNTHROID) 00:00: mouth of 100 MCG 00 daily. Medicin tablet e losartan-hy 2019-0 Yes 1{tbl} Take 1 MD drochloroth 4-10 tablet by And bryanna iarosa isela 10:29: mouth n (HYZAAR) 45 daily. 100-25 [...] 00 day with meals. No known No [facility] of Medicin e Vital Signs Vital Name Observation Time Observation Value Comments Source HEIGHT 2021-01-20 08:47:00 182.9 cm WEIGHT 2021-01-20 08:47:00 118.026 kg HEIGHT 2021-01-19 09:03:00 182.9 cm WEIGHT 2021-01-19 09:03:00 119.296 kg Systolic blood 2021-03-22 19:00:18 156 mm[Hg] [facility] of pressure [facility] Diastolic blood 2021-03-22 19:00:18 64 mm[Hg] [facility] pressure [facility] Heart rate 2021-03-22 19:00:18 50 /min [facility] Body temperature 2021-03-22 19:00:18 36.61 [facility] ersity of [facility] Respiratory rate 2021-03-22 19:00:18 16 /min Univ ersity of [facility] Oxygen saturation in 2021-03-22 19:00:18 98 /min [facility] Arterial blood by [facility] Pulse oximetry Branch Body weight 2021-03-22 16:48:00 119.75 kg [facility] of [facility] Systolic blood 2021-03-18 20:48:00 142 mm[Hg] [facility] of pressure Medicine Diastolic blood 2021-03-18 20:48:00 67 mm[Hg] [facility] of pressure Medicine Heart rate 2021-03-18 20:48:00 52 /min [facility] ol[facility] of Medicine Body height 2021-03-18 20:48:00 182.9 cm [facility] of Medicine Body weight 2021-03-18 20:48:00 119.75 kg [facility] of Medicine BMI 2021-03-18 20:48:00 35.80 kg/m2 [facility] C ollege of Medicine Systolic blood 2021-03-02 15:19:00 146 mm[Hg] [facility] of pressure Medicine Diastolic blood 2021-03-02 15:19:00 55 mm[Hg] [facility] College of pressure Medicine Heart rate 2021-03-02 15:19:00 53 /min [facility] of Medicine Body height 2021-03-02 15:19:00 182.9 cm [facility] C [facility] of Medicine Body weight 2021-03-02 15:19:00 117.935 kg [facility] C [facility] of Medicine BMI 2021-03-02 15:19:00 35.26 kg/m2 [facility] C [facility] of Medicine Systolic blood 2021-02-18 19:16:00 143 mm[Hg] [facility] of pressure Medicine Diastolic blood 2021-02-18 19:16:00 67 mm[Hg] [facility] of pressure Medicine Heart rate 2021-02-18 19:16:00 54 /min [facility] C [facility] of Medicine Body height 2021-02-18 19:16:00 182.9 cm [facility] C [facility] of Medicine Body weight 2021-02-18 19:16:00 117.935 kg [facility] C [facility] of Medicine BMI 2021-02-18 19:16:00 35.26 kg/m2 [facility] C [facility] of Medicine Systolic blood 2021-02-10 20:02:00 126 mm[Hg] [facility] of pressure Medicine Diastolic blood 2021-02-10 20:02:00 70 mm[Hg] [facility] of pressure Medicine Heart rate 2021-02-10 20:02:00 53 /min [facility] C [facility] of Medicine Body height 2021-02-10 20:02:00 182.9 cm [facility] C [facility] of Medicine Body weight 2021-02-10 20:02:00 117.935 kg [facility] C [facility] of Medicine BMI 2021-02-10 20:02:00 35.26 kg/m2 [facility] C [facility] of Medicine Systolic blood 2021-02-06 18:38:00 150 mm[Hg] [facility] of pressure Medicine Diastolic blood 2021-02-06 18:38:00 66 mm[Hg] [facility] of pressure Medicine Heart rate 2021-02-06 18:38:00 57 /min [facility] C [facility] of Medicine Body height 2021-02-06 18:38:00 182.9 cm [facility] C [facility] of Medicine Body weight 2021-02-06 18:38:00 117.935 kg [facility] C [facility] of Medicine BMI 2021-02-06 18:38:00 35.26 kg/m2 [facility] C [facility] of Medicine Systolic blood 2021-02-03 21:42:00 144 mm[Hg] [facility] of pressure Medicine Diastolic blood 2021-02-03 21:42:00 75 mm[Hg] [facility] of pressure Medicine Heart rate 2021-02-03 21:42:00 55 /min [facility] C [facility] of Medicine Body height 2021-02-03 21:42:00 182.9 cm [facility] C [facility] of Medicine Body weight 2021-02-03 21:42:00 117.935 kg [facility] C [facility] of Medicine BMI 2021-02-03 21:42:00 35.26 kg/m2 [facility] C [facility] of Medicine Systolic blood 2021-01-30 19:33:00 138 mm[Hg] [facility] of pressure Medicine Diastolic blood 2021-01-30 19:33:00 76 mm[Hg] [facility] of pressure Medicine Heart rate 2021-01-30 19:33:00 52 /min [facility] C [facility] of Medicine Body height 2021-01-30 19:33:00 182.9 cm [facility] C [facility] of Medicine Body weight 2021-01-30 19:33:00 117.935 kg [facility] C [facility] of Medicine BMI 2021-01-30 19:33:00 35.26 kg/m2 [facility] C [facility] of Medicine HEIGHT 2021-01-20 08:47:00 182.9 cm WEIGHT 2021-01-20 08:47:00 118.026 kg HEIGHT 2021-01-19 09:03:00 182.9 cm WEIGHT 2021-01-19 09:03:00 119.296 kg Systolic blood 2020-12-31 19:10:00 151 mm[Hg] [facility] of pressure Medicine Diastolic blood 2020-12-31 19:10:00 58 mm[Hg] [facility] of pressure Medicine Heart rate 2020-12-31 19:10:00 60 /min [facility] C [facility] of Medicine Body height 2020-12-31 19:10:00 182.9 cm [facility] C [facility] of Medicine Body weight 2020-12-31 19:10:00 117.935 kg [facility] C [facility] of Medicine BMI 2020-12-31 19:10:00 35.26 kg/m2 [facility] C [facility] of Medicine Systolic blood 2020-12-17 18:13:00 149 mm[Hg] [facility] of pressure Medicine Diastolic blood 2020-12-17 18:13:00 65 mm[Hg] [facility] of pressure Medicine Heart rate 2020-12-17 18:13:00 97 /min [facility] C [facility] of Medicine Body height 2020-12-17 18:13:00 182.9 cm [facility] C [facility] of Medicine Body weight 2020-12-17 18:13:00 119.296 kg [facility] C [facility] of Medicine BMI 2020-12-17 18:13:00 35.67 kg/m2 [facility] C [facility] of Medicine HEIGHT 2020-12-05 20:13:00 182.9 cm WEIGHT 2020-12-05 20:13:00 120.884 kg HEIGHT 2020-12-05 13:51:00 182.9 cm WEIGHT 2020-12-05 13:51:00 122.471 kg HEIGHT 2020-12-05 20:13:00 182.9 cm WEIGHT 2020-12-05 20:13:00 120.884 kg HEIGHT 2020-12-05 13:51:00 182.9 cm WEIGHT 2020-12-05 13:51:00 122.471 kg Systolic blood 2020-11-05 21:03:00 148 mm[Hg] [facility] pressure Medicine Diastolic blood 2020-11-05 21:03:00 67 mm[Hg] [facility] Medicine Heart rate 2020-11-05 21:03:00 59 /min [facility] ol[facility] of Medicine Body height 2020-11-05 21:03:00 182.9 cm [facility] of Medicine Body weight 2020-11-05 21:03:00 119.296 kg [facility] of Medicine BMI 2020-11-05 21:03:00 35.67 kg/m2 [facility] of Medicine Systolic blood 2020-10-08 18:59:00 157 mm[Hg] [facility] Medicine Diastolic blood 2020-10-08 18:59:00 73 mm[Hg] [facility] Medicine Heart rate 2020-10-08 18:59:00 53 /min [facility] of Medicine Body temperature 2020-10-08 18:59:00 36.72 [facility] Respiratory rate 2020-10-08 18:59:00 16 /min [facility] Body height 2020-10-08 18:59:00 182.9 cm [facility] C [facility] of Medicine Body weight 2020-10-08 18:59:00 122.471 kg [facility] of Medicine BMI 2020-10-08 18:59:00 36.62 kg/m2 [place] [facility] Systolic blood 2020-04-29 21:53:00 148 mm[Hg] [facility] of pressure Medicine Diastolic blood 2020-04-29 21:53:00 70 mm[Hg] [facility] of pressure Medicine Heart rate 2020-04-29 21:53:00 64 /min [facility] C [facility] of Medicine Body height 2020-04-29 21:53:00 185.4 cm [facility] C [facility] of Medicine Body weight 2020-04-29 21:53:00 122.018 kg [facility] C [facility] of Medicine BMI 2020-04-29 21:53:00 35.49 kg/m2 [facility] C [facility] of Medicine Systolic blood 2019-12-17 15:27:00 148 mm[Hg] [facility] of pressure Medicine Diastolic blood 2019-12-17 15:27:00 67 mm[Hg] [facility] of pressure Medicine Heart rate 2019-12-17 15:27:00 50 /min [facility] C [facility] of Medicine Body height 2019-12-17 15:27:00 185.4 cm [facility] C [facility] of Medicine Body weight 2019-12-17 15:27:00 122.018 kg [facility] C [facility] of Medicine BMI 2019-12-17 15:27:00 35.49 kg/m2 [facility] C [facility] of Medicine Systolic blood 2019-12-07 15:49:00 140 mm[Hg] [facility] of pressure Medicine Diastolic blood 2019-12-07 15:49:00 58 mm[Hg] [facility] Medicine Heart rate 2019-12-07 15:49:00 47 /min [facility] C [facility] of Medicine Body height 2019-12-07 15:49:00 185.4 cm [facility] C [facility] of Medicine Body weight 2019-12-07 15:49:00 122.018 kg [facility] C [facility] of Medicine BMI 2019-12-07 15:49:00 35.49 kg/m2 [facility] C [facility] of Medicine Systolic blood 2019-12-07 15:49:00 140 mm[Hg] [facility] of pressure Medicine Diastolic blood 2019-12-07 15:49:00 58 mm[Hg] [facility] of pressure Medicine Heart rate 2019-12-07 15:49:00 47 /min [facility] C [facility] of Medicine Body height 2019-12-07 15:49:00 185.4 cm [place] [facility] Body weight 2019-12-07 15:49:00 122.018 kg [facility] C [facility] of Medicine BMI 2019-12-07 15:49:00 35.49 kg/m2 [place] [facility] Systolic blood 2019-11-30 19:34:00 129 mm[Hg] [facility] of pressure Medicine Diastolic blood 2019-11-30 19:34:00 73 mm[Hg] [facility] of pressure Medicine Heart rate 2019-11-30 19:34:00 60 /min [facility] C [facility] of Medicine Body height 2019-11-30 19:34:00 185.4 cm [facility] C [facility] of Medicine Body weight 2019-11-30 19:34:00 122.018 kg [facility] C [facility] of Medicine BMI 2019-11-30 19:34:00 35.49 kg/m2 [facility] C [facility] of Medicine Systolic blood 2019-11-30 19:34:00 129 mm[Hg] [facility] pressure Medicine Diastolic blood 2019-11-30 19:34:00 73 mm[Hg] [facility] of pressure Medicine Heart rate 2019-11-30 19:34:00 60 /min [facility] C [facility] of Medicine Body height 2019-11-30 19:34:00 185.4 cm [facility] C [facility] of Medicine Body weight 2019-11-30 19:34:00 122.018 kg [facility] C [facility] of Medicine BMI 2019-11-30 19:34:00 35.49 kg/m2 [facility] C [facility] of Medicine Systolic blood 2019-11-16 16:00:00 140 mm[Hg] [facility] of pressure Medicine Diastolic blood 2019-11-16 16:00:00 64 mm[Hg] [facility] of pressure Medicine Heart rate 2019-11-16 16:00:00 42 /min [facility] C [facility] of Medicine Body height 2019-11-16 16:00:00 185.4 cm [facility] C [facility] of Medicine Body weight 2019-11-16 16:00:00 122.471 kg [facility] C [facility] of Medicine BMI 2019-11-16 16:00:00 35.62 kg/m2 [place] [facility] Systolic blood 2019-11-16 16:00:00 140 mm[Hg] [facility] of pressure Medicine Diastolic blood 2019-11-16 16:00:00 64 mm[Hg] [facility] of pressure Medicine Heart rate 2019-11-16 16:00:00 42 /min [facility] C [facility] of Medicine Body height 2019-11-16 16:00:00 185.4 cm [facility] C [facility] of Medicine Body weight 2019-11-16 16:00:00 122.471 kg [facility] C [facility] of Medicine BMI 2019-11-16 16:00:00 35.62 kg/m2 [facility] C [facility] of Medicine Systolic blood 2019-08-17 17:19:00 137 mm[Hg] [facility] pressure Medicine Diastolic blood 2019-08-17 17:19:00 71 mm[Hg] [facility] of pressure Medicine Heart rate 2019-08-17 17:19:00 45 /min [facility] C [facility] of Medicine Body height 2019-08-17 17:19:00 185.4 cm [facility] C [facility] of Medicine Body weight 2019-08-17 17:19:00 119.296 kg [facility] C [facility] of Medicine BMI 2019-08-17 17:19:00 34.70 kg/m2 [facility] C [facility] of Medicine Systolic blood 2019-08-17 17:19:00 137 mm[Hg] [facility] pressure Medicine Diastolic blood 2019-08-17 17:19:00 71 mm[Hg] [facility] of pressure Medicine Heart rate 2019-08-17 17:19:00 45 /min [facility] C [facility] of Medicine Body height 2019-08-17 17:19:00 185.4 cm [facility] C [facility] of Medicine Body weight 2019-08-17 17:19:00 119.296 kg [facility] C [facility] of Medicine BMI 2019-08-17 17:19:00 34.70 kg/m2 [facility] C [facility] of Medicine Systolic blood 2019-07-16 14:48:00 148 mm[Hg] [facility] pressure Medicine Diastolic blood 2019-07-16 14:48:00 62 mm[Hg] [facility] of pressure Medicine Heart rate 2019-07-16 14:48:00 63 /min [facility] C [facility] of Medicine Body height 2019-07-16 14:48:00 185.4 cm [facility] C [facility] of Medicine Body weight 2019-07-16 14:48:00 120.203 kg [facility] C [facility] of Medicine BMI 2019-07-16 14:48:00 34.96 kg/m2 [facility] C [facility] of Medicine Systolic blood 2019-07-16 14:48:00 148 mm[Hg] [facility] pressure Medicine Diastolic blood 2019-07-16 14:48:00 62 mm[Hg] [facility] of pressure Medicine Heart rate 2019-07-16 14:48:00 63 /min [facility] C [facility] of Medicine Body height 2019-07-16 14:48:00 185.4 cm [facility] ol[facility] of Medicine Body weight 2019-07-16 14:48:00 120.203 kg [facility] C [facility] of Medicine BMI 2019-07-16 14:48:00 34.96 kg/m2 [facility] ol[facility] of Medicine Systolic blood 2019-03-20 20:59:00 149 mm[Hg] [facility] pressure Medicine Diastolic blood 2019-03-20 20:59:00 66 mm[Hg] [facility] of pressure Medicine Heart rate 2019-03-20 20:59:00 66 /min [facility] ol[facility] of Medicine Systolic blood 2019-03-20 20:59:00 149 mm[Hg] [facility] pressure Medicine Diastolic blood 2019-03-20 20:59:00 66 mm[Hg] [facility] of pressure Medicine Heart rate 2019-03-20 20:59:00 66 /min [facility] ol[facility] of Medicine Systolic blood 2019-03-20 13:22:00 123 mm[Hg] [facility] pressure Medicine Diastolic blood 2019-03-20 13:22:00 56 mm[Hg] [facility] of pressure Medicine Heart rate 2019-03-20 13:22:00 51 /min [facility] ol[facility] of Medicine Body temperature 2019-03-20 13:22:00 36.56 Ronda [facility] Respiratory rate 2019-03-20 13:22:00 18 /min [facility] Body weight 2019-03-20 13:22:00 115.214 kg [facility] of Medicine BMI 2019-03-20 13:22:00 32.61 kg/m2 [facility] Oxygen saturation in 2019-03-20 13:22:00 97 /min [facility] of Arterial blood by Medicine Pulse oximetry Systolic blood 2019-03-20 13:22:00 123 mm[Hg] [facility] of pressure Medicine Diastolic blood 2019-03-20 13:22:00 56 mm[Hg] [facility] Medicine Heart rate 2019-03-20 13:22:00 51 /min [facility] Body temperature 2019-03-20 13:22:00 36.56 R[facility] Respiratory rate 2019-03-20 13:22:00 18 /min [facility] Body weight 2019-03-20 13:22:00 115.214 kg [facility] BMI 2019-03-20 13:22:00 32.61 kg/m2 [facility] Oxygen saturation in 2019-03-20 13:22:00 97 /min [facility] Arterial blood by Medicine Pulse oximetry Systolic blood 2019-03-06 18:06:00 130 mm[Hg] [facility] pressure Medicine Diastolic blood 2019-03-06 18:06:00 56 mm[Hg] [facility] pressure Medicine Heart rate 2019-03-06 18:06:00 49 /min [facility] Systolic blood 2019-03-06 18:06:00 130 mm[Hg] [facility] pressure Medicine Diastolic blood 2019-03-06 18:06:00 56 mm[Hg] [facility] pressure Medicine Heart rate 2019-03-06 18:06:00 49 /min [facility] Systolic blood 2019-03-06 14:46:00 130 mm[Hg] [facility] pressure Medicine Diastolic blood 2019-03-06 14:46:00 66 mm[Hg] [facility] pressure Medicine Heart rate 2019-03-06 14:46:00 55 /min [facility] Body temperature 2019-03-06 14:46:00 36.44 Ronda [facility] Respiratory rate 2019-03-06 14:46:00 16 /min [facility] Body height 2019-03-06 14:46:00 188 cm [facility] ol[facility] of Medicine Body weight 2019-03-06 14:46:00 117.482 kg [facility] BMI 2019-03-06 14:46:00 33.25 kg/m2 [facility] Systolic blood 2019-03-06 14:46:00 130 mm[Hg] [facility] pressure Medicine Diastolic blood 2019-03-06 14:46:00 66 mm[Hg] [facility] pressure Medicine Heart rate 2019-03-06 14:46:00 55 /min [facility] Body temperature 2019-03-06 14:46:00 36.44 Ronda [facility] Respiratory rate 2019-03-06 14:46:00 16 /min [facility] Body height 2019-03-06 14:46:00 188 cm [facility] Body weight 2019-03-06 14:46:00 117.482 kg [facility] BMI 2019-03-06 14:46:00 33.25 kg/m2 [facility] Systolic blood 2019-02-21 17:47:00 149 mm[Hg] [facility] of pressure Medicine Diastolic blood 2019-02-21 17:47:00 61 mm[Hg] [facility] of pressure Medicine Heart rate 2019-02-21 17:47:00 81 /min [facility] Systolic blood 2019-02-21 17:47:00 149 mm[Hg] [facility] of pressure Medicine Diastolic blood 2019-02-21 17:47:00 61 mm[Hg] [facility] of pressure Medicine Heart rate 2019-02-21 17:47:00 81 /min [facility] Systolic blood 2019-02-21 14:44:00 138 mm[Hg] [facility] of pressure Medicine Diastolic blood 2019-02-21 14:44:00 58 mm[Hg] [facility] of pressure Medicine Heart rate 2019-02-21 14:44:00 53 /min [facility] Body temperature 2019-02-21 14:44:00 36.44 Ronda [facility] Respiratory rate 2019-02-21 14:44:00 18 /min [facility] Body weight 2019-02-21 14:44:00 117.028 kg [facility] BMI 2019-02-21 14:44:00 33.13 kg/m2 [facility] Oxygen saturation in 2019-02-21 14:44:00 97 /min [facility] of Arterial blood by Medicine Pulse oximetry Systolic blood 2019-02-21 14:44:00 138 mm[Hg] [facility] pressure Medicine Diastolic blood 2019-02-21 14:44:00 58 mm[Hg] [facility] Medicine Heart rate 2019-02-21 14:44:00 53 /min [facility] Body temperature 2019-02-21 14:44:00 36.44 Ronda [facility] Respiratory rate 2019-02-21 14:44:00 18 /min [facility] Body weight 2019-02-21 14:44:00 117.028 kg [facility] BMI 2019-02-21 14:44:00 33.13 kg/m2 [facility] Oxygen saturation in 2019-02-21 14:44:00 97 /min [facility] Arterial blood by Medicine Pulse oximetry Systolic blood 2019-02-05 19:06:00 149 mm[Hg] [facility] pressure Medicine Diastolic blood 2019-02-05 19:06:00 68 mm[Hg] [facility] Medicine Heart rate 2019-02-05 19:06:00 51 /min [facility] Body temperature 2019-02-05 19:06:00 36.39 Ronda [facility] Respiratory rate 2019-02-05 19:06:00 15 /min [facility] Body height 2019-02-05 19:06:00 188 cm [facility] Body weight 2019-02-05 19:06:00 115.214 kg [facility] BMI 2019-02-05 19:06:00 32.61 kg/m2 [facility] Oxygen saturation in 2019-02-05 19:06:00 93 /min [facility] Arterial blood by Medicine Pulse oximetry Systolic blood 2019-02-05 19:06:00 149 mm[Hg] [facility] of pressure Medicine Diastolic blood 2019-02-05 19:06:00 68 mm[Hg] [facility] Heart rate 2019-02-05 19:06:00 51 /min [facility] Body temperature 2019-02-05 19:06:00 36.39 Ronda [facility] Respiratory rate 2019-02-05 19:06:00 15 /min [facility] Body height 2019-02-05 19:06:00 188 cm [facility] Body weight 2019-02-05 19:06:00 115.214 kg [facility] BMI 2019-02-05 19:06:00 32.61 kg/m2 [facility] Oxygen saturation in 2019-02-05 19:06:00 93 /min [facility] Arterial blood by [facility] Pulse oximetry Systolic blood 2019-02-05 17:09:00 130 mm[Hg] [facility] Diastolic blood 2019-02-05 17:09:00 78 mm[Hg] [facility] Heart rate 2019-02-05 17:09:00 69 /min [facility] Systolic blood 2019-02-05 17:09:00 130 mm[Hg] [facility] Diastolic blood 2019-02-05 17:09:00 78 mm[Hg] [facility] Heart rate 2019-02-05 17:09:00 69 /min [facility] Systolic blood 2021-01-20 13:10:00 139 mm[Hg] [facility] Diastolic blood 2021-01-20 13:10:00 66 mm[Hg] [facility] Heart rate 2021-01-20 13:10:00 55 /min [facility] Body temperature 2021-01-20 13:10:00 36.39 Ronda [facility] Respiratory rate 2021-01-20 13:10:00 18 /min [facility] Oxygen saturation in 2021-01-20 13:10:00 94 /min [facility] - Arterial blood by Medical nter Pulse oximetry Body height 2021-01-20 08:47:00 182.9 cm [facility] Body weight 2021-01-20 08:47:00 118.026 kg [facility] BMI 2021-01-20 08:47:00 35.29 kg/m2 [facility] Procedures Procedure Date / Time Performing Clinician Source Performed [id number] 2021-04-14 00:00:00 NATST [facility] [id number] 2021-04-11 00:00:00 KREMI [facility] [id number] 2021-04-11 00:00:00 KREMI [facility] [id number] 2021-04-10 00:00:00 PEPGR [facility] [id number] 2021-04-06 00:00:00 SHASA.06 [facility] [id number] 2021-03-31 00:00:00 MCKRO [facility] [id number] 2021-03-31 00:00:00 MCKRO [facility] [id number] 2021-03-31 00:00:00 MCKRO [facility] [id number] 2021-03-31 00:00:00 MCKRO [facility] [id number] 2021-03-31 00:00:00 MCKRO [facility] [id number] 2021-03-31 00:00:00 MCKRO [facility] [id number] 2021-03-31 00:00:00 MCKRO [facility] [id number] 2021-03-31 00:00:00 MCKRO [facility] [id number] 2021-03-31 00:00:00 MCKRO [facility] [id number] 2021-03-28 00:00:00 DABSA [facility] [id number] 2021-03-28 00:00:00 DABSA [facility] [id number] 2021-03-28 00:00:00 DABSA [facility] TROPONIN I 2021-03-22 17:57:00 Sandy Rivera [facility] XR CHEST 1 VW 2021-03-22 17:35:00 Sandy Rivera [facility] CREATINE KINASE 2021-03-22 17:00:00 Sandy Rivera [facility] MAGNESIUM 2021-03-22 17:00:00 Sandy Rivera [facility] TROPONIN I 2021-03-22 17:00:00 Sandy Rivera [facility] COMP. METABOLIC PANEL 2021-03-22 17:00:00 Sandy Rivera [facility] ([id number]) [facility] CBC WITH DIFF 2021-03-22 17:00:00 Sandy Rivera [facility] N-TERMINAL PRO-BNP 2021-03-22 17:00:00 Sandy Rivera [facility] CONSENT/REFUSAL FOR 2021-03-22 16:40:28 Doctor Unassigned, No Un [facility] DIAGNOSIS AND TREATMENT Name Medical Branch RELEASE,HAMMERTOE 2021-01-20 09:50:00 Fransisco Martinez [facility] TENOTOMY,TOE 2021-01-20 09:50:00 Fransisco Martinez [facility] TENOTOMY,TOE 2021-01-20 09:50:00 Fransisco Martinez [facility] CAPSULOTOMY,TOE 2021-01-20 09:50:00 Fransisco Martinez [facility] ARTHROPLASTY,TOE 2021-01-20 09:50:00 Fransisco Martinez [facility] POCT-GLUCOSE METER 2021-01-20 09:16:00 Fransisco Martinez [facility] SARS-COV2/RT-PCR ([facility] 2021-01-16 11:18:00 Fransisco Martinez I [facility] - REF LABS) [facility] HEMOGLOBIN 2021-01-16 11:18:00 Nahum Tinoco [facility] BASIC METABOLIC PANEL 2021-01-16 11:18:[address] [facility] [address] ECG 12-LEAD 2021-01-16 11:10:13 Nahum Tinoco [facility] ECG 12-LEAD 2021-01-16 11:10:13 Unknown, Hl7 Doctor [facility] POCT-GLUCOSE METER 2020-12-09 07:24:00 [facility] BASIC METABOLIC PANEL 2020-12-09 03:34:00 Fransisco Martinez [address] POCT-GLUCOSE METER 2020-12-08 21:11:00 [facility] XR FOOT 2 VIEWS LEFT 2020-12-08 18:12:00 Fransisco Martinez [facility] POCT-GLUCOSE METER 2020-12-08 17:53:00 [facility] SURGICALLY OBTAINED 2020-12-08 17:16:47 Fransisco Martinez [facility] - CULTURE + GRAM STAIN Medical [facility] ter ANAEROBIC CULTURE 2020-12-08 17:16:47 Fransisco Martinez [facility] TISSUE EXAM 2020-12-08 17:13:00 Fransisco Martinez [facility] AMPUTATION,TOE 2020-12-08 16:32:00 Fransisco Martinez [facility] POCT-GLUCOSE METER 2020-12-08 13:37:00 [facility] ECG 12-LEAD 2020-12-08 12:57:36 Maximino Blackmon [facility] ECG 12-LEAD 2020-12-08 12:57:36 Unknown, Hl7 [facility] ECG 12-LEAD 2020-12-08 12:56:01 Unknown, Hl7 [facility] POCT-GLUCOSE METER 2020-12-08 09:32:00 [facility] CBC W/PLT COUNT & AUTO 2020-12-08 05:48:00 Fransisco Martinez [facility] BASIC METABOLIC PANEL 2020-12-08 05:48:[address] [facility] [address] CBC W/PLT COUNT & AUTO 2020-12-08 05:48:00 [facility] POCT-GLUCOSE METER 2020-12-07 21:16:00 [facility] POCT-GLUCOSE METER 2020-12-07 17:43:00 [facility] POCT-GLUCOSE METER 2020-12-07 12:45:00 [facility] POCT-GLUCOSE METER 2020-12-07 07:54:00 [facility] BASIC METABOLIC PANEL 2020-12-07 03:40:00 Fransisco Martinez [address] POCT-GLUCOSE METER 2020-12-06 20:52:00 [facility] POCT-GLUCOSE METER 2020-12-06 17:23:00 [facility] VANCOMYCIN LEVEL, TROUGH 2020-12-06 15:18:00 Billy Curtis I [facility] POCT-GLUCOSE METER 2020-12-06 11:35:00 [facility] POCT-GLUCOSE METER 2020-12-06 07:51:00 [facility] BASIC METABOLIC PANEL 2020-12-06 05:24:[address] MAGNESIUM 2020-12-06 05:24:00 [facility] CBC W/PLT COUNT & AUTO 2020-12-06 05:24:00 [facility] HEMOGLOBIN A1C 2020-12-06 05:24:00 [facility] CBC W/PLT COUNT & AUTO 2020-12-06 05:24:00 [facility] POCT-GLUCOSE METER 2020-12-05 20:16:[address] [facility] LACTIC ACID, VENOUS 2020-12-05 17:08:00 Ricardo Hightower [facility] XR FOOT 3 VIEWS LEFT 2020-12-05 14:24:00 Ricardo Hightower [facility] CBC W/PLT COUNT & AUTO 2020-12-05 14:12:00 Ricardo Hightower [facility] LACTIC ACID, VENOUS 2020-12-05 14:12:00 Ricardo Hightower [facility] COMPREHENSIVE METABOLIC 2020-12-05 14:12:00 Ricardo Hightower [facility] PROTHROMBIN TIME/INR 2020-12-05 14:12:00 Ricardo Hightower [facility] APTT 2020-12-05 14:12:00 Ricardo Hightower [facility] CBC W/PLT COUNT & AUTO 2020-12-05 14:12:00 Ricardo Hightower [facility] WOUND CULTURE + GRAM 2020-12-05 14:12:00 Ricardo Hightower [facility] BLOOD CULTURE 2020-12-05 14:12:00 [facility] BLOOD CULTURE 2020-12-05 14:11:00 [facility] CULTURE, ANAEROBIC 2019-03-06 05:00:00 Fransisco Martinez [facility] CULTURE, AEROBIC 2019-03-06 05:00:00 [facility] C[facility], AEROBIC 2019-02-05 05:00:00 [facility]ansisco [facility] 81.54 2010-12-23 00:00:00 MATVA.01 [facility] Planned Activity Planned Date Details Comments Source Future Scheduled 2021-06-07 Hemoglobin A1c [facility] - Test 00:00:00 [facility] (procedure) [code = 09979128] Future Scheduled 2021-03-31 COVID-19 Vaccine (1) [facility] Test 18:58:09 [code = COVID-19 of Medicine Vaccine (1)] Future Scheduled 2021-03-31 TETANUS SHOT (ADULT) [employer] Test 18:58:09 [code = TETANUS SHOT of Medi cine (ADULT)] Future Scheduled 2021-03-31 Diabetic foot [employer] Test 18:58:09 examination of Medicine (regime/therapy) [code = [id number]] Future Scheduled 2021-03-31 ANNUAL DIABETIC [facility] Test 18:58:09 RETINOPATHY SCREENING of Med icine [code = ANNUAL DIABETIC RETINOPATHY SCREENING] Future Scheduled 2021-03-31 ZOSTER VACCINE (1 of [employer] Test 18:58:09 2) [code = ZOSTER of Medicin e VACCINE (1 of 2)] Future Scheduled 2021-03-31 MEDICARE AWV [facility] [employer] Test 18:58:09 (Initial) [code = of Medicin e MEDICARE AWV (Initial)] Future Scheduled 2021-03-31 FLU VACCINE > 6 [facility] Test 18:58:09 MONTHS [code = FLU of Medici ne VACCINE > 6 MONTHS] Future Scheduled 2021-03-31 BMI FOLLOW UP PLAN [facility] Test 18:58:09 [code = BMI FOLLOW UP of Med icine PLAN] Future Scheduled 2021-03-31 FALL SCREEN [code = [facility] or College Test 18:58:09 FALL SCREEN] of Medicine Future Scheduled 2021-03-18 WOUND CARE Ordered: [facility] [employer] Test 16:57:55 INSTRUCTIONS [code = 03/18/2021 of Medi Hyphen 8 44530] Future Scheduled 2021-03-11 AL DEBRIDEMENT OF Ordered: [facility] Test 08:42:55 NAILS, 6 OR MORE 03/11/2021 of Medicine [code = 13218] Future Scheduled 2021-03-11 AL DEBRIDEMENT OF Ordered: [facility] Test 08:42:55 NAILS, 6 OR MORE 03/11/2021 of Medicine [code = 87470] Future Scheduled 2021-03-11 COVID-19 Vaccine (1) [employer] Test 08:36:34 [code = COVID-19 of Medicine Vaccine (1)] Future Scheduled 2021-03-11 TETANUS SHOT (ADULT) [employer] Test 08:36:34 [code = TETANUS SHOT of Medi cine (ADULT)] Future Scheduled 2021-03-11 Diabetic foot [facility] [employer] Test 08:36:34 examination of Medicine (regime/therapy) [code = [id number]] Future Scheduled 2021-03-11 ANNUAL DIABETIC [facility] Test 08:36:34 RETINOPATHY SCREENING of Med icine [code = ANNUAL DIABETIC RETINOPATHY SCREENING] Future Scheduled 2021-03-11 ZOSTER VACCINE (1 of [employer] Test 08:36:34 2) [code = ZOSTER of Medicin e VACCINE (1 of 2)] Future Scheduled 2021-03-11 MEDICARE AWV [facility] [employer] Test 08:36:34 (Initial) [code = of Medicin e MEDICARE AWV (Initial)] Future Scheduled 2021-03-11 FLU VACCINE > 6 [facility] Test 08:36:34 MONTHS [code = FLU of Medici ne VACCINE > 6 MONTHS] Future Scheduled 2021-03-11 BMI FOLLOW UP PLAN [employer] Test 08:36:34 [code = BMI FOLLOW UP of Med icine PLAN] Future Scheduled 2021-03-11 FALL SCREEN [code = [employer] Test 08:36:34 FALL SCREEN] of Medicine Future Scheduled 2021-03-11 COVID-19 Vaccine (1) [employer] Test 08:36:34 [code = COVID-19 of Medicine Vaccine (1)] Future Scheduled 2021-03-11 TETANUS SHOT (ADULT) [employer] Test 08:36:34 [code = TETANUS SHOT of Medi cine (ADULT)] Future Scheduled 2021-03-11 Diabetic foot [facility] [employer] Test 08:36:34 examination of Medicine (regime/therapy) [code = [id number]] Future Scheduled 2021-03-11 ANNUAL DIABETIC [facility] Test 08:36:34 RETINOPATHY SCREENING of Med icine [code = ANNUAL DIABETIC RETINOPATHY SCREENING] Future Scheduled 2021-03-11 ZOSTER VACCINE (1 of [employer] Test 08:36:34 2) [code = ZOSTER of Medicin e VACCINE (1 of 2)] Future Scheduled 2021-03-11 MEDICARE AWV [facility] Test 08:36:34 (Initial) [code = of Medicin e MEDICARE AWV (Initial)] Future Scheduled 2021-03-11 FLU VACCINE > 6 [employer] Test 08:36:34 MONTHS [code = [...] Future Scheduled 2021-02-22 FLU VACCINE > 6 [facility] Test 15:10:13 MONTHS [code = FLU of Medici ne VACCINE > 6 MONTHS] Future Scheduled 2021-02-22 MEDICARE AWV [facility] [employer] Test 15:10:13 (Initial) [code = of Medicin e MEDICARE AWV (Initial)] Future Scheduled 2021-02-22 FLU VACCINE > 6 [facility] Test 15:10:13 MONTHS [...] PLAN] Future Scheduled 2021-02-22 COVID-19 Vaccine (1) [employer] Test 15:10:13 [code = COVID-19 of Medicine Vaccine (1)] Future Scheduled 2021-02-22 TETANUS SHOT (ADULT) [employer] Test 15:10:13 [code = TETANUS SHOT of Medi cine (ADULT)] Future Scheduled 2021-02-22 Diabetic foot [facility] [employer] Test 15:10:13 examination of Medicine (regime/therapy) [code = [id number]] Future Scheduled 2021-02-22 ANNUAL DIABETIC [facility] Test 15:10:13 RETINOPATHY SCREENING of Med icine [code = ANNUAL DIABETIC RETINOPATHY SCREENING] Future Scheduled 2021-02-22 ZOSTER VACCINE (1 of [employer] Test 15:10:13 2) [code = ZOSTER of Medicin e VACCINE (1 of 2)] Future Scheduled 2021-02-22 MEDICARE AWV [facility] [employer] Test 15:10:13 (Initial) [code = of Medicin e MEDICARE AWV (Initial)] Future Scheduled 2021-02-22 COVID-19 Vaccine (1) [employer] Test 15:10:13 [code = COVID-19 of Medicine Vaccine (1)] Future Scheduled 2021-02-22 TETANUS SHOT (ADULT) [employer] Test 15:10:13 [code = TETANUS SHOT of Medi cine (ADULT)] Future Scheduled 2021-02-22 Diabetic foot [facility] Test 15:10:13 examination of Medicine (regime/therapy) [code = [id number]] Future Scheduled 2021-02-22 ANNUAL DIABETIC [facility] Test 15:10:13 RETINOPATHY SCREENING of Med icine [code = ANNUAL DIABETIC RETINOPATHY SCREENING] Future Scheduled 2021-02-22 ZOSTER VACCINE (1 of [employer] Test 15:10:13 2) [code = ZOSTER of Medicin e VACCINE (1 of 2)] Future Scheduled 2021-02-11 INFLUENZA VACCINE [facility] - Test 00:00:00 (#1) [code = Medical Center INFLUENZA VACCINE (#1)] Future Scheduled 2021-02-10 COVID-19 Vaccine (1) [employer] Test 19:07:07 [code = COVID-19 of Medicine Vaccine (1)] Future Scheduled 2021-02-10 TETANUS SHOT (ADULT) [employer] Test 19:07:07 [code = TETANUS SHOT of Medi cine (ADULT)] Future Scheduled 2021-02-10 Diabetic foot [facility] Test 19:07:07 examination of Medicine (regime/therapy) [code = [id number]] Future Scheduled 2021-02-10 ANNUAL DIABETIC [facility] Test 19:07:07 RETINOPATHY SCREENING of Med icine [code = ANNUAL DIABETIC RETINOPATHY SCREENING] Future Scheduled 2021-02-10 ZOSTER VACCINE (1 of [employer] Test 19:07:07 2) [code = ZOSTER of Medicin e VACCINE (1 of 2)] Future Scheduled 2021-02-10 MEDICARE AWV [facility] Test 19:07:07 (Initial) [code = of Medicin e MEDICARE AWV (Initial)] Future Scheduled 2021-02-10 FLU VACCINE > 6 [facility] Test 19:07:07 MONTHS [code = FLU of Medici ne VACCINE > 6 MONTHS] Future Scheduled 2021-02-10 FALL SCREEN [code = [employer] Test 19:07:07 FALL SCREEN] of Medicine Future Scheduled 2021-02-10 BMI FOLLOW UP PLAN [employer] Test 19:07:07 [code = BMI FOLLOW UP of Med icine PLAN] Future Scheduled 2021-02-10 COVID-19 Vaccine (1) [employer] Test 19:07:07 [code = COVID-19 of Medicine Vaccine (1)] Future Scheduled 2021-02-10 TETANUS SHOT (ADULT) [employer] Test 19:07:07 [code = TETANUS SHOT of Medi cine (ADULT)] Future Scheduled 2021-02-10 Diabetic foot [employer] Test 19:07:07 examination of Medicine (regime/therapy) [code = [id number]] Future Scheduled 2021-02-10 ANNUAL DIABETIC [facility] Test 19:07:07 RETINOPATHY SCREENING of Med icine [code = ANNUAL DIABETIC RETINOPATHY SCREENING] Future Scheduled 2021-02-10 ZOSTER VACCINE (1 of [employer] Test 19:07:07 2) [code = ZOSTER of Medicin e VACCINE (1 of 2)] Future Scheduled 2021-02-10 MEDICARE AWV [facility] [employer] Test 19:07:07 (Initial) [...] PLAN] Future Scheduled 2021-02-10 WOUND CARE Ordered: [facility] [employer] Test 16:19:31 INSTRUCTIONS [code = 02/10/2021 of [place] [address]] Future Scheduled 2021-02-10 WOUND CARE Ordered: [facility] [employer] Test 16:19:31 INSTRUCTIONS [code = 02/10/2021 of [place] [address]] Future Scheduled 2021-02-10 COVID-19 Vaccine (1) [employer] Test 02:34:12 [code = COVID-19 of Medicine Vaccine (1)] Future Scheduled 2021-02-10 TETANUS SHOT (ADULT) [employer] Test 02:34:12 [code = TETANUS SHOT of Medi cine (ADULT)] Future Scheduled 2021-02-10 Diabetic foot [facility] Test 02:34:12 examination of Medicine (regime/therapy) [code = [id number]] Future Scheduled 2021-02-10 ANNUAL DIABETIC [facility] Test 02:34:12 RETINOPATHY SCREENING of Med icine [code = ANNUAL DIABETIC RETINOPATHY SCREENING] Future Scheduled 2021-02-10 ZOSTER VACCINE (1 of [facility] Test 02:34:12 2) [code = ZOSTER of Medicin e VACCINE (1 of 2)] Future Scheduled 2021-02-10 MEDICARE AWV [facility] [employer] Test 02:34:12 (Initial) [code = of Medicin e MEDICARE AWV (Initial)] Future Scheduled 2021-02-10 FLU VACCINE > 6 [facility] [employer] Test 02:34:12 MONTHS [code = FLU of Medici ne VACCINE > 6 MONTHS] Future Scheduled 2021-02-10 FALL SCREEN [code = [facility] or [facility] Test 02:34:12 FALL SCREEN] of Medicine Future Scheduled 2021-02-10 BMI FOLLOW UP PLAN [facility] [employer] Test 02:34:12 [code = BMI FOLLOW UP of Med icine PLAN] Future Scheduled 2021-02-09 AL DRAINAGE OF Ordered: [facility] [employer] Test 13:01:37 HEMATOMA/FLUID [code 02/09/2021 of Medi Hyphen 8 = 12964] Future Scheduled 2021-02-09 COVID-19 Vaccine (1) [employer] Test 12:55:57 [code = COVID-19 of Medicine Vaccine (1)] Future Scheduled 2021-02-09 TETANUS SHOT (ADULT) [employer] Test 12:55:57 [code = TETANUS SHOT of Medi Hyphen 8 (ADULT)] Future Scheduled 2021-02-09 Diabetic foot [facility] [employer] Test 12:55:57 examination of Medicine (regime/therapy) [code = [id number]] Future Scheduled 2021-02-09 ANNUAL DIABETIC [facility] [employer] Test 12:55:57 RETINOPATHY SCREENING of Med icine [code = ANNUAL DIABETIC RETINOPATHY SCREENING] Future Scheduled 2021-02-09 ZOSTER VACCINE (1 of [employer] Test 12:55:57 2) [code = ZOSTER of Medicin e VACCINE (1 of 2)] Future Scheduled 2021-02-09 MEDICARE AWV [facility] Test 12:55:57 (Initial) [code = of Medicin e MEDICARE AWV (Initial)] Future Scheduled 2021-02-09 FLU VACCINE > 6 [facility] [employer] Test 12:55:57 MONTHS [code = FLU of Medici ne VACCINE > 6 MONTHS] Future Scheduled 2021-02-09 FALL SCREEN [code = [facility] [employer] [facility] 12:55:57 FALL SCREEN] of Medicine Future Scheduled 2021-02-09 BMI FOLLOW UP PLAN [facility] [employer] Test 12:55:57 [code = BMI FOLLOW UP of Med icine PLAN] Future Scheduled 2021-02-08 COVID-19 Vaccine (1) [employer] Test 11:14:39 [code = COVID-19 of Medicine Vaccine (1)] Future Scheduled 2021-02-08 TETANUS SHOT (ADULT) [employer] Test 11:14:39 [code = TETANUS SHOT of Medi cine (ADULT)] Future Scheduled 2021-02-08 Diabetic foot [facility] [employer] Test 11:14:39 examination of Medicine (regime/therapy) [code = [id number]] Future Scheduled 2021-02-08 ANNUAL DIABETIC [facility] [employer] Test 11:14:39 RETINOPATHY SCREENING of Med icine [code = ANNUAL DIABETIC RETINOPATHY SCREENING] Future Scheduled 2021-02-08 ZOSTER VACCINE (1 of [employer] Test 11:14:39 2) [code = ZOSTER of Medicin e VACCINE (1 of 2)] Future Scheduled 2021-02-08 MEDICARE AWV [facility] Test 11:14:39 (Initial) [code = of Medicin e MEDICARE AWV (Initial)] Future Scheduled 2021-02-08 FLU VACCINE > 6 [facility] [employer] Test 11:14:39 MONTHS [code = [...] [employer] Test 14:30:18 [code = 46698] of Medicine Future Scheduled 2021-02-06 US ARTERIAL LEG RIGHT 1 Occurrences [employer] Test 14:26:55 [code = 09781] starting of Medicine 02/06/2021 until 02/06/2022 Future Scheduled 2021-01-09 SUTURE REMOVAL KIT Ordered: [facility] [employer] Test 09:49:13 [code = NOCPT] 01/09/2021 of Medicine Future Scheduled 2021-01-09 COVID-19 Vaccine (1) [employer] Test 09:43:27 [code = COVID-19 of Medicine Vaccine (1)] Future Scheduled 2021-01-09 TETANUS SHOT (ADULT) [employer] Test 09:43:27 [code = TETANUS SHOT of Medi cine (ADULT)] Future Scheduled 2021-01-09 Diabetic foot [facility] [employer] Test 09:43:27 examination of Medicine (regime/therapy) [code = 269909757] Future Scheduled 2021-01-09 ANNUAL DIABETIC [facility] [employer] Test 09:43:27 RETINOPATHY SCREENING of Med icine [code = ANNUAL DIABETIC RETINOPATHY SCREENING] Future Scheduled 2021-01-09 ZOSTER VACCINE (1 of [employer] Test 09:43:27 2) [code = ZOSTER of Medicin e VACCINE (1 of 2)] Future Scheduled 2021-01-09 MEDICARE AWV [facility] Test 09:43:27 (Initial) [code = of Medicin e MEDICARE AWV (Initial)] Future Scheduled 2021-01-09 FLU VACCINE > 6 [facility] [employer] Test 09:43:27 MONTHS [code = FLU of Medici ne VACCINE > 6 MONTHS] Future Scheduled 2021-01-09 FALL SCREEN [code = [employer] Test 09:43:27 FALL SCREEN] of Medicine Future Scheduled 2021-01-09 BMI FOLLOW UP PLAN [employer] Test 09:43:27 [code = BMI FOLLOW UP of Med icine PLAN] Future Scheduled 2020-12-28 COVID-19 Vaccine (1) [employer] Test 12:10:08 [code = COVID-19 of Medicine Vaccine (1)] Future Scheduled 2020-12-28 TETANUS SHOT (ADULT) [employer] Test 12:10:08 [code = TETANUS SHOT of Medi cine (ADULT)] Future Scheduled 2020-12-28 Diabetic foot [facility] [employer] Test 12:10:08 examination of Medicine (regime/therapy) [code = [id number]] Future Scheduled 2020-12-28 ANNUAL DIABETIC [facility] [employer] Test 12:10:08 RETINOPATHY SCREENING of Med icine [code = ANNUAL DIABETIC RETINOPATHY SCREENING] Future Scheduled 2020-12-28 ZOSTER VACCINE (1 of [employer] Test 12:10:08 2) [code = ZOSTER of Medicin e VACCINE (1 of 2)] Future Scheduled 2020-12-28 MEDICARE AWV [facility] Test 12:10:08 (Initial) [code = of Medicin e MEDICARE AWV (Initial)] Future Scheduled 2020-12-28 FLU VACCINE > 6 [facility] [employer] Test 12:10:08 MONTHS [code = FLU of Medici ne VACCINE > 6 MONTHS] Future Scheduled 2020-12-28 FALL SCREEN [code = [employer] Test 12:10:08 FALL SCREEN] of Medicine Future Scheduled 2020-12-28 BMI FOLLOW UP PLAN [employer] Test 12:10:08 [code = BMI FOLLOW UP of Med icine PLAN] Future Scheduled 2020-11-10 AL DEBRIDEMENT OPEN Ordered: [employer] [facility] [employer] Test 16:44:38 WOUND 20 SQ CM< [code 11/10/2020 of Med icine = 35505] Future Scheduled 2020-11-10 COVID-19 Vaccine (1) [employer] Test 16:37:50 [code = COVID-19 of Medicine Vaccine (1)] Future Scheduled 2020-11-10 TETANUS SHOT (ADULT) [employer] Test 16:37:50 [code = TETANUS SHOT of Medi cine (ADULT)] Future Scheduled 2020-11-10 Diabetic foot [facility] Test 16:37:50 examination of Medicine (regime/therapy) [code = 312218286] Future Scheduled 2020-11-10 ANNUAL DIABETIC [facility] [employer] Test 16:37:50 RETINOPATHY SCREENING of Med icine [code = ANNUAL DIABETIC RETINOPATHY SCREENING] Future Scheduled 2020-11-10 ZOSTER VACCINE (1 of [facility] Test 16:37:50 2) [code = ZOSTER of Medicin e VACCINE (1 of 2)] Future Scheduled 2020-11-10 MEDICARE AWV [facility] Test 16:37:50 (Initial) [code = of Medicin e MEDICARE AWV (Initial)] Future Scheduled 2020-11-10 BMI FOLLOW UP PLAN [facility] [employer] Test 16:37:50 [code = BMI FOLLOW UP of Med icine PLAN] Future Scheduled 2020-11-10 FLU VACCINE > 6 [facility] [employer] Test 16:37:50 MONTHS [code = FLU of Medici ne VACCINE > 6 MONTHS] Future Scheduled 2020-11-10 FALL SCREEN [code = [facility] or [place] Test 16:37:50 FALL SCREEN] of Medicine Future [...] 00:00:00 examination Medical Center (regime/therapy) [code = 232287617] Future Scheduled 1949 Urine screening for [facility] - Test 00:00:00 protein (procedure) Medical Center [code = 423295852] Future Scheduled 1945-01-08 COVID-19 Vaccination [facility] Test 00:00:00 (1) [code = COVID-19 Vaccination (1)] Future Scheduled MEDICARE AWV [code = [employer] [facility] MEDICARE AWV] of Medicine Future Scheduled TETANUS SHOT (ADULT) [employer] Test [code = TETANUS SHOT of Medi Hyphen 8 (ADULT)] Future Scheduled BMI FOLLOW UP PLAN [employer] Test [code = BMI FOLLOW UP of Med icine PLAN] Future Scheduled FALL SCREEN [code = [employer] [facility] [employer] [facility] FALL SCREEN] of Medicine Future Scheduled PNEUMOVAX >=65 [facility] Test (PPSV23) [code = of Medicine PNEUMOVAX >=65 (PPSV23)] Future Scheduled PREVNAR >= 65 (PCV13) [employer] Test [code = PREVNAR >= 65 of Med icine (PCV13)] Future Scheduled FLU VACCINE > 6 [facility] Test MONTHS [code = FLU of Medici ne VACCINE > 6 MONTHS] Future Scheduled AL DRAINAGE OF Ordered: [facility] Test HEMATOMA/FLUID [code 02/09/2019 of [place] = 09604] Future Scheduled AL DEBRIDEMENT, SKIN, Ordered: [employer] Test SUB-Q TISSUE,=<20 SQ 02/09/2019 of [facility] CM [code = 09687] Future Scheduled CULTURE, ANAEROBIC [employer] Test [code = 635-3] of Medicine Future Scheduled MEDICARE AWV [code = [employer] [facility] MEDICARE AWV] of Medicine Future Scheduled TETANUS SHOT (ADULT) [employer] Test [code = TETANUS SHOT of Medi Hyphen 8 (ADULT)] Future Scheduled Diabetic foot [facility] [employer] [facility] Test examination of Medicine (regime/therapy) [code = 367381543] Future Scheduled ANNUAL DIABETIC [facility] [employer] Test RETINOPATHY SCREENING [...] (PCV13)] Future Scheduled FLU VACCINE > 6 [facility] [employer] Test MONTHS [code = FLU of Medici ne VACCINE > 6 MONTHS] Future Scheduled MEDICARE AWV [code = [employer] [facility] MEDICARE AWV] of Medicine Future Scheduled TETANUS SHOT (ADULT) [employer] Test [code = TETANUS SHOT of Medi cine (ADULT)] Future Scheduled Diabetic foot [facility] [employer] Test examination of Medicine (regime/therapy) [code = 701241006] Future Scheduled ANNUAL DIABETIC [employer] [facility] RETINOPATHY SCREENING of Med icine [code = ANNUAL DIABETIC RETINOPATHY SCREENING] Future Scheduled BMI FOLLOW UP PLAN [employer] Test [code = BMI FOLLOW UP of Med icine PLAN] Future Scheduled FALL SCREEN [code = [employer] [facility] FALL SCREEN] of Medicine Future Scheduled PNEUMOVAX >=65 [facility] [employer] Test (PPSV23) [code = of Medicine PNEUMOVAX >=65 (PPSV23)] Future Scheduled PREVNAR >= 65 (PCV13) [employer] Test [code = PREVNAR >= 65 of Med icine (PCV13)] Future Scheduled FLU VACCINE > 6 [facility] [employer] Test MONTHS [code = FLU of Medici ne VACCINE > 6 MONTHS] Future Scheduled MEDICARE AWV [code = [employer] [facility] MEDICARE AWV] of Medicine Future Scheduled TETANUS SHOT (ADULT) [employer] Test [code = TETANUS SHOT of Medi cine (ADULT)] Future Scheduled Diabetic foot [facility] [employer] [facility] Test examination of Medicine (regime/therapy) [code = 551690079] Future Scheduled ANNUAL DIABETIC [employer] [facility] [employer] [...] ne VACCINE > 6 MONTHS] Future Scheduled AL DEBRIDEMENT, SKIN, Ordered: [employer] Test SUB-Q TISSUE,=<20 SQ 03/11/2019 of Medi cine CM [code = 21525] Future Scheduled MEDICARE AWV [code = [employer] [facility] MEDICARE AWV] of Medicine Future Scheduled TETANUS SHOT (ADULT) [employer] Test [code = TETANUS SHOT of Medi cine (ADULT)] Future Scheduled Diabetic foot [facility] [employer] [facility] Test examination of Medicine (regime/therapy) [code = 018464624] Future Scheduled ANNUAL DIABETIC [facility] [employer] Test RETINOPATHY SCREENING of Med icine [code = ANNUAL DIABETIC RETINOPATHY SCREENING] Future Scheduled BMI FOLLOW UP PLAN [employer] Test [code = BMI FOLLOW UP of Med icine PLAN] Future Scheduled FALL SCREEN [code = [employer] [facility] FALL SCREEN] of Medicine Future Scheduled FLU VACCINE > 6 [facility] Test MONTHS [code = FLU of Medici ne VACCINE > 6 MONTHS] Future Scheduled AL DEBRIDEMENT, SKIN, Ordered: [facility] SUB-Q TISSUE,=<20 SQ 03/12/2019 of Medi cine CM [code = 50556] Future Scheduled AL DRAIN SKIN ABSCESS Ordered: [facility] Test SIMPLE [code = 70373] 03/12/2019 of Med icine Future Scheduled MEDICARE AWV [code = [employer] [facility] MEDICARE AWV] of Medicine Future Scheduled TETANUS SHOT (ADULT) [employer] Test [code = TETANUS SHOT of Medi cine (ADULT)] Future Scheduled Diabetic foot [employer] Test examination of Medicine (regime/therapy) [code = 108078561] Future Scheduled ANNUAL DIABETIC [employer] [...] MONTHS] Future Scheduled MEDICARE AWV [code = [employer] [facility] MEDICARE AWV] of Medicine Future Scheduled TETANUS SHOT (ADULT) [employer] Test [code = TETANUS SHOT of Medi cine (ADULT)] Future Scheduled Diabetic foot [facility] [employer] Test examination of Medicine (regime/therapy) [code = 636882760] Future Scheduled ANNUAL DIABETIC [employer] [...] ne VACCINE > 6 MONTHS] Future Scheduled AL DEBRIDEMENT OPEN Ordered: [employer] Test WOUND 20 SQ CM< [code 04/10/2019 of Med icine = 29445] Future Scheduled MEDICARE AWV [code = [employer] [facility] MEDICARE AWV] of Medicine Future Scheduled TETANUS SHOT (ADULT) [employer] Test [code = TETANUS SHOT of Medi cine (ADULT)] Future Scheduled Diabetic foot [facility] Test examination of Medicine (regime/therapy) [code = 627171829] Future Scheduled ANNUAL DIABETIC [facility] [employer] Test RETINOPATHY SCREENING of Med icine [code = ANNUAL DIABETIC RETINOPATHY SCREENING] Future Scheduled BMI FOLLOW UP PLAN [employer] Test [code = BMI FOLLOW UP of Med icine PLAN] Future Scheduled FALL SCREEN [code = [employer] [facility] FALL SCREEN] of Medicine Future Scheduled AL DRAINAGE OF Ordered: [facility] Test HEMATOMA/FLUID [code 07/23/2019 of Medi cine = 45727] Future Scheduled TETANUS SHOT (ADULT) [employer] Test [code = TETANUS SHOT of Medi cine (ADULT)] Future Scheduled Diabetic foot [facility] [employer] [facility] Test examination of Medicine (regime/therapy) [code = 617066930] Future Scheduled ANNUAL DIABETIC [facility] [employer] Test RETINOPATHY SCREENING of Med icine [code = ANNUAL DIABETIC RETINOPATHY SCREENING] Future Scheduled BMI FOLLOW UP PLAN [employer] Test [code = BMI FOLLOW UP of Med icine PLAN] Future Scheduled FALL SCREEN [code = [employer] [facility] FALL SCREEN] of Medicine Future Scheduled PNEUMOVAX >=65 [facility] [employer] Test (PPSV23) [code = of Medicine PNEUMOVAX >=65 (PPSV23)] Future Scheduled PREVNAR >= 65 (PCV13) [employer] Test [code = PREVNAR >= 65 of Med icine (PCV13)] Future Scheduled MEDICARE AWV [facility] (Initial) [code = of Medicin e MEDICARE AWV (Initial)] Future Scheduled AL DEBRIDEMENT OF Ordered: [facility] Test NAILS, 6 OR MORE 08/24/2019 of Medicine [code = 23213] Future Scheduled AL TRIM BENIGN Ordered: [facility] [employer] Test HYPERKERATOTIC SKIN 08/24/2019 of Medic ine LESION,2-4 [code = 17518] Future Scheduled TETANUS SHOT (ADULT) [employer] Test [code = TETANUS SHOT of Medi cine (ADULT)] Future Scheduled Diabetic foot [facility] [employer] [facility] Test examination of Medicine (regime/therapy) [code = 400492994] Future Scheduled ANNUAL DIABETIC [facility] [employer] Test RETINOPATHY SCREENING of Med icine [code = ANNUAL DIABETIC RETINOPATHY SCREENING] Future Scheduled BMI FOLLOW UP PLAN [employer] Test [code = BMI FOLLOW UP of Med icine PLAN] Future Scheduled FALL SCREEN [code = [employer] [facility] FALL SCREEN] of Medicine Future Scheduled PNEUMOVAX >=65 [facility] [employer] Test (PPSV23) [code = of Medicine PNEUMOVAX >=65 (PPSV23)] Future Scheduled PREVNAR >= 65 (PCV13) [employer] Test [code = PREVNAR >= 65 of Med icine (PCV13)] Future Scheduled MEDICARE AWV [facility] Test (Initial) [code = of Medicin e MEDICARE AWV (Initial)] Future Scheduled AL DEBRIDEMENT OPEN Ordered: [employer] Test WOUND 20 SQ CM< [code 11/16/2019 of Med icine = 40713] Future Scheduled AL DEBRIDEMENT OF Ordered: [employer] Test NAILS, 6 OR MORE 11/16/2019 of Medicine [code = 67525] Future Scheduled AL REMOVAL OF NAIL Ordered: [employer] [facility] PLATE [code = 30333] 11/28/2019 of Medi cine Future Scheduled AL DEBRIDEMENT OF Ordered: [employer] Test NAILS, 6 OR MORE 11/28/2019 of Medicine [code = 83614] Future Scheduled AL TRIM BENIGN Ordered: [employer] Test HYPERKERATOTIC SKIN 11/28/2019 of Medic ine LESION,2-4 [code = 20397] Future Scheduled TETANUS SHOT (ADULT) [employer] Test [code = TETANUS SHOT of Medi cine (ADULT)] Future Scheduled Diabetic foot [facility] [employer] [facility] Test examination of Medicine (regime/therapy) [code = 118094481] Future Scheduled ANNUAL DIABETIC [facility] [employer] Test RETINOPATHY SCREENING of Med icine [code = ANNUAL DIABETIC RETINOPATHY SCREENING] Future Scheduled FALL SCREEN [code = [employer] [facility] FALL SCREEN] of Medicine Future Scheduled PNEUMOVAX >=65 [employer] Test (PPSV23) [code = of Medicine PNEUMOVAX >=65 (PPSV23)] Future Scheduled MEDICARE AWV [facility] Test (Initial) [code = of Medicin e MEDICARE AWV (Initial)] Future Scheduled FLU VACCINE > 6 [facility] [employer] Test MONTHS [code = FLU of Medici ne VACCINE > 6 MONTHS] Future Scheduled BMI FOLLOW UP PLAN [employer] Test [code = BMI FOLLOW UP of Med icine PLAN] Future Scheduled AL DEBRIDEMENT OPEN Ordered: [employer] Test WOUND 20 SQ CM< [code 12/03/2019 of Med icine = 82355] Future Scheduled AL TRIM Ordered: [facility] [employer] Test HYPERKERATOTIC SKIN 12/09/2019 of Medic ine LESION, ONE [code = 07229] Future Scheduled TETANUS SHOT (ADULT) [employer] Test [code = TETANUS SHOT of Medi cine (ADULT)] Future Scheduled Diabetic foot [facility] [employer] [facility] Test examination of Medicine (regime/therapy) [code = 400680323] Future Scheduled ANNUAL DIABETIC [facility] [employer] Test RETINOPATHY SCREENING of Med icine [code = ANNUAL DIABETIC RETINOPATHY SCREENING] Future Scheduled FALL SCREEN [code = [employer] [facility] FALL SCREEN] of Medicine Future Scheduled MEDICARE AWV [employer] [facility] (Initial) [code = of Medicin e MEDICARE AWV (Initial)] Future Scheduled FLU VACCINE > 6 [facility] [employer] Test MONTHS [code = FLU of Medici ne VACCINE > 6 MONTHS] Future Scheduled BMI FOLLOW UP PLAN [employer] Test [code = BMI FOLLOW UP of Med icine PLAN] Future Scheduled AL TRIM BENIGN Ordered: [facility] [employer] Test HYPERKERATOTIC SKIN 12/11/2019 of Medic ine LESION,2-4 [code = 54623] Future Scheduled TETANUS SHOT (ADULT) [employer] Test [code = TETANUS SHOT of Medi cine (ADULT)] Future Scheduled Diabetic foot [employer] Test examination of Medicine (regime/therapy) [code = 481648849] Future Scheduled ANNUAL DIABETIC [facility] [employer] Test RETINOPATHY SCREENING [...] UP of Med icine PLAN] Future Scheduled AL DEBRIDEMENT OPEN Ordered: [employer] [facility] WOUND 20 SQ CM< [code 12/17/2019 of Med icine = 83767] Future Scheduled AL DEBRIDEMENT OPEN Ordered: [employer] Test WOUND EA ADDL 20 SQ 12/17/2019 of Medic ine CM [code = 47586] Future Scheduled AL DEBRIDEMENT OPEN Ordered: [employer] Test WOUND 20 SQ CM< [code 12/30/2019 of Med icine = 22078] Future Scheduled TETANUS SHOT (ADULT) [employer] Test [code = TETANUS SHOT of Medi cine (ADULT)] Future Scheduled Diabetic foot [employer] Test examination of Medicine (regime/therapy) [code = 368016956] Future Scheduled ANNUAL DIABETIC [employer] [facility] RETINOPATHY SCREENING of Med icine [code = ANNUAL DIABETIC RETINOPATHY SCREENING] Future Scheduled FALL SCREEN [code = [employer] [facility] FALL SCREEN] of Medicine Future Scheduled MEDICARE AWV [facility] (Initial) [code = of Medicin e MEDICARE AWV (Initial)] Future Scheduled FLU VACCINE > 6 [facility] Test MONTHS [code = FLU of Medici ne VACCINE > 6 MONTHS] Future Scheduled BMI FOLLOW UP PLAN [employer] Test [code = BMI FOLLOW UP of Med icine PLAN] Future Scheduled AL DEBRIDEMENT OF Ordered: [facility] Test NAILS, 6 OR MORE 05/06/2020 of Medicine [code = 65928] Future Scheduled AL DEBRIDEMENT OPEN Ordered: [employer] Test WOUND 20 SQ CM< [code 05/06/2020 of Med icine = 90249] Future Scheduled TETANUS SHOT (ADULT) [employer] Test [code = TETANUS SHOT of Medi cine (ADULT)] Future Scheduled Diabetic foot [facility] [employer] [facility] Test examination of Medicine (regime/therapy) [code = 236105605] Future Scheduled ANNUAL DIABETIC [employer] [facility] RETINOPATHY SCREENING of Med icine [code = ANNUAL DIABETIC RETINOPATHY SCREENING] Future Scheduled ZOSTER VACCINE (1 of [employer] Test 2) [code = ZOSTER [...] UP of Med icine PLAN] Future Scheduled AL DEBRIDEMENT OPEN Ordered: [employer] Test WOUND 20 SQ CM< [code 10/16/2020 of Med icine = 54925] Future Scheduled AL DRAINAGE OF Ordered: [facility] [employer] Test HEMATOMA/FLUID [code 10/16/2020 of Medi cine = 33929] Future Scheduled TETANUS SHOT (ADULT) [employer] Test [code = TETANUS SHOT of Medi cine (ADULT)] Future Scheduled COVID-19 Vaccine (1) [employer] [facility] [code = COVID-19 of Medicine Vaccine (1)] Future Scheduled Diabetic foot [facility] [employer] [facility] Test examination of Medicine (regime/therapy) [code = 448532978] Future Scheduled ANNUAL DIABETIC [facility] Test RETINOPATHY SCREENING of Med icine [code = ANNUAL DIABETIC RETINOPATHY SCREENING] Future Scheduled ZOSTER VACCINE (1 of [employer] [facility] 2) [code = ZOSTER of Medicin e VACCINE (1 of 2)] Future Scheduled MEDICARE AWV [facility] [facility] (Initial) [code = of Medicin e MEDICARE AWV (Initial)] Future Scheduled BMI FOLLOW UP PLAN [employer] Test [code = BMI FOLLOW UP of Med icine PLAN] Future Scheduled FLU VACCINE > 6 [employer] [facility] [employer] [facility] MONTHS [code = FLU of Medici ne VACCINE > 6 MONTHS] Future Scheduled FALL SCREEN [code = [employer] [facility] FALL SCREEN] of Medicine Future Scheduled XR FOOT LEFT 1 Occurrences [facility] Test (COMPLETE) [code = [place] [address]-8] 11/30/2019 until 07/01/2020 Future Scheduled XR FOOT LEFT 1 Occurrences [facility] Test (COMPLETE) [code = [place] [address]-9] 11/30/2019 until 07/01/2020 Encounters Start End Encounter Admission Attending Care Care Encounter Source Date/Time Date/Time Type Type Clinicians Facility Department ID 2021-05-28 Outpatient MERCEDES Garvin [id number] [facility] 16:48:13 Marcello Kenny [facility] 2021-05-13 Inpatient TERE [facility] [id number] [facility] 14:03:00 January [id number] [facility] 2021-04-22 Inpatient EL Akintokunbo [facility] [id number] [facility] 14:03:00 , January [id number] [facility] 2021-04-21 Inpatient Alma, HCAWU HCAWU [id number] HCA 09:00:00 Rafal 16636 [facility] 2021-03-22 Outpatient ROSS, SLE Surgery [id number] SLE 05:54:07 FRANSISCO 2021-03-22 Outpatient ROSS, SLE Surgery [id number] SLE 05:00:01 FRANSISCO 2021-03-20 Outpatient ROSS, SLE Surgery [id number] SLEH 17:59:31 FRANSISCO 2021-06-01 2021-06-02 Inpatient EL Mahnaz, HCAWU INTE [id number] HCA 11:07:00 16:36:00 Marcello [address] [facility] 2021-06-01 2021-06-02 Inpatient EL Mahnaz, HCAWU INTE [id number] HCA 11:07:00 16:36:00 Marcello Og [facility] 2021-05-28 2021-05-28 Outpatient EL Mahnaz, HCAWU RADI [id number] HCA 16:15:00 16:15:00 Marcello 99551 [facility] 2021-04-28 2021-05-12 Outpatient EL Akintoearnestunbo HCAWU WCAR Y80 [id number] HCA 11:41:00 00:00:00 , January 02846 [facility] 2021-04-10 2021-04-21 Inpatient EL Alma, HCAWU REHA [id number] HCA 20:01:00 11:15:00 Rafal 59 [facility] 2021-04-10 2021-04-21 Inpatient EL Alma, HCAWU REHA [id number] HCA 20:01:00 11:15:00 Rafal 87682 [facility] 2021-03-28 2021-04-10 Inpatient EL Waldo, HCAWU INTE [id number] HCA 08:17:00 21:05:00 Radha 68 [facility] 2021-03-28 2021-04-10 Inpatient EL Waldo, HCAWU INTE [id number] HCA 08:17:00 21:05:00 Radha 58990 [facility] 2021-03-22 2021-03-22 Emergency [facility] [id number] [facility] 11:49:00 14:14:00 Sandy Shine 350.1.13.10 ity of [place] 4.2.7.2.686 [facility] [id number] [facility] 084 Branch 2021-03-22 2021-03-22 Emergency X [facility] ERT [id number] Univers 11:41:00 11:41:00 SANDY ity of [facility] 2021-03-22 2021-03-22 Orders Doctor NAHUM 1.2.840.114 [id number] Univers 00:00:00 00:00:00 Only Unassigned, JEISON 350.1.13.10 ity of [facility] 4.2.7.2.686 [facility] [id number] [facility] 009 Branch 2021-03-18 2021-03-18 Office FELY Martinez 1.2.840.[id number] [place] [address] 15:31:18 16:54:10 Visit Fransisco A AMBULATOR 350.1.13.21 College Y 0.2.7.2.686 of [id number] [facility] 825 e 2021-03-05 2021-03-05 Mann Hernandez [facility] [id number] [facility] 00:00:00 00:00:00 [facility] 2021-03-02 2021-03-02 Office FELY Martinez 1.2.840.114 [id number] [facility] 08:46:18 11:25:54 Visit Fransisco A AMBULATOR 350.1.13.21 College Y 0.2.7.2.686 of [id number] [facility] 825 e 2021-02-18 2021-02-18 Office FELY Martinez 1.2.840.114 [id number] [facility] 13:54:30 14:56:46 Visit Fransisco A AMBULATOR 350.1.13.21 College Y 0.2.7.2.686 of [id number] [facility] 825 e 2021-02-10 2021-02-10 Office FELY Martinez 1.2.840.114 [id number] [facility] 13:37:31 16:24:40 Visit Fransisco A AMBULATOR 350.1.13.21 College Y 0.2.7.2.686 of [id number] [facility] 825 e 2021-02-06 2021-02-06 [facility] [id number] [facility] 14:30:18 16:22:10 Colleg e of Medicin e 2021-02-06 2021-02-06 Office SEJAL Martinez 1.2.840.114 [id number] [facility] 13:21:04 15:54:34 Visit Fransisco A AMBULATOR 350.1.13.21 College Y 0.2.7.2.686 of [id number] [facility] 825 e 2021-02-03 2021-02-04 Office SEJAL Martinez 1.2.840.114 [id number] 83 [facility] 16:13:42 16:10:53 Visit Fransisco A AMBULATOR 350.1.13.21 College Y 0.2.7.2.686 of [id number] [facility] 825 e 2021-01-30 2021-01-30 Office Freddie [facility] 1.2.840.114 [id number] [facility] 14:20:42 15:26:39 Visit Fransisco A AMBULATOR 350.1.13.21 College Y 0.2.7.2.686 of [id number] [facility] 825 e 2021-01-20 2021-01-20 Hospital TERE Martinez [facility] [id number] 05:52:00 13:34:00 [facility] 2021-01-20 Anesthesia Concepción [facility] [id number] 10:05:00 12:25:00 Event Germán Pelaez [facility] 2021-01-20 2021-01-20 Surgery Freddie [facility] [id number] 09:30:00 12:00:00 Fransisco Cantrell [facility] 2021-01-20 2021-01-20 Travel [facility] [id number] [facility] 00:00:00 00:00:00 [facility] 2021-01-19 2021-01-19 [facility] [id number] 08:25:00 23:59:00 Encounter [facility] 2021-01-19 2021-01-19 Outpatient EL SLEH [facility] [id number] [facility] 00:00:00 00:00:00 2021-01-19 2021-01-19 Travel [facility] [id number] [facility] 00:00:00 00:00:00 [facility] 2021-01-16 2021-01-16 [id number] [facility] [address] 10:30:00 23:59:00 Encounter Fransisco Viey[facility] 2021-01-16 2021-01-16 Outpatient [facility] [id number] [facility] 00:00:00 23:59:00 Blanche 2021-01-16 2021-01-16 Outpatient EL SLEH SLEH [id number] [facility] 00:00:00 00:00:00 2021-01-16 2021-01-16 Outpatient EL SLEH SLEH [id number] [facility] 00:00:00 00:00:00 2021-01-16 2021-01-16 Outpatient EL SLEH SLEH [id number] [facility] 00:00:00 00:00:00 2021-01-16 2021-01-16 [facility] [id number] ERIN Amezcua 00:00:00 00:00:00 Only [facility] 2021-01-15 2021-01-15 Outpatient SLEH SLEH [id number] [facility] 00:00:00 00:00:00 2020-12-31 2020-12-31 Office FELY Martinez 1.2.840.114 [id number] [facility] 13:28:07 15:24:20 Visit Fransisco Alvarez AMBULATOR 350.1.13.21 College Y 0.2.7.2.686 of [id number] [facility] 825 e 2020-12-17 2020-12-17 Office FELY Martinez 1.2.840.114 [id number] [facility] 11:58:33 15:03:21 Visit Fransisco Alvarez AMBULATOR 350.1.13.21 College Y 0.2.7.2.686 of [id number] [facility] 825 e 2020-12-05 2020-12-09 Hospital ER Ricardo Hightower [facility] [id number] 14:20:00 13:18:00 Encounter Marilyn Costa Mann Serrano [facility] 2020-12-08 2020-12-08 Outpatient [facility] [id number] [facility] 00:00:00 23:59:00 Blanche 2020-12-08 2020-12-08 Anesthesia Ellis Abrams [facility] [id number] 16:40:00 17:49:00 Event Madiha Méndez [facility] 2020-12-08 2020-12-08 Surgery Freddie [facility] [id number] 15:30:00 16:44:00 Fransisco Campoverde [facility] 2020-12-08 2020-12-08 Orders [facility] [id number] 00:00:00 00:00:00 Only [facility] 2020-12-05 2020-12-05 Emergency ER SLE Emergency [id number] [facility] 13:27:00 13:27:00 2020-12-05 2020-12-05 Travel [facility] [id number] [facility] 00:00:00 00:00:00 [facility] 2020-11-05 2020-11-05 Office FELY Martinez 1.2.840.114 [id number] [facility] 14:29:28 16:08:16 Visit Fransisco Alvarez AMBULATOR 350.1.13.21 College Y 0.2.7.2.686 of [id number] [facility] 825 e 2020-10-08 2020-10-08 Office FELY Martinez 1.2.840.114 [id number] [facility] 13:08:44 15:10:37 Visit Fransisco A AMBULATOR 350.1.13.21 College Y 0.2.7.2.686 of [id number] [facility] 825 e 2020-06-23 2020-06-23 [facility] [id number] 23:59:00 23:59:00 [facility] 2020-06-23 2020-06-23 Outpatient SLE SLE [id number] SLE 00:00:00 00:00:00 2020-05-23 2020-05-23 [facility] [id number] 00:00:00 00:00:00 Only [facility] 2020-04-29 2020-04-29 Office FELY Martinez 1.2.840.114 [id number] [facility] 15:37:33 16:48:53 Visit Fransisco A AMBULATOR 350.1.13.21 College Y 0.2.7.2.686 of [id number] [facility] 825 e 2019-12-17 2019-12-17 Office FELY Martinez 1.2.840.114 [id number] [facility] 09:27:18 12:21:50 Visit Fransisco A AMBULATOR 350.1.13.21 College Y 0.2.7.2.686 of [id number] [facility] 825 e 2019-12-07 2019-12-07 Office FELY Martinez 1.2.840.114 [id number] [facility] 09:06:57 12:03:34 Visit Fransisco A AMBULATOR 350.1.13.21 College Y 0.2.7.2.686 of [id number] [facility] 825 e 2019-12-07 2019-12-07 Office FELY Martinez 1.2.840.114 [id number] 09:06:57 12:03:34 Visit Fransisco A AMBULATOR 350.1.13.21 Y 0.2.7.2.686 [id number] [facility] 2019-11-30 2019-11-30 Office FELY Martinez 1.2.840.114 [id number] 27 [facility] 13:57:09 15:42:09 Visit Fransisco A AMBULATOR 350.1.13.21 College Y 0.2.7.2.686 of [id number] [facility] 825 e 2019-11-30 2019-11-30 Office FELY Martinez 1.2.840.114 [id number] 13:57:09 15:42:09 Visit Fransisco A AMBULATOR 350.1.13.21 Y 0.2.7.2.686 [id number] [facility] 2019-11-30 2019-11-30 Outpatient [facility] [id number] [facility] 00:00:00 00:00:00 KAVYA 2019-11-16 2019-11-16 Office FELY Martinez 1.2.840.114 [id number] [facility] 10:09:45 15:40:42 Visit Fransisco A AMBULATOR 350.1.13.21 College Y 0.2.7.2.686 of [id number] [place] e 2019-11-16 2019-11-16 Office FELY Martinez 1.2.840.114 [id number] 10:09:45 15:40:42 Visit Fransisco A AMBULATOR 350.1.13.21 Y 0.2.7.2.686 [id number] [facility] 2019-08-17 2019-08-17 Office FELY Martinez 1.2.840.114 [id number] 16 [facility] 10:00:59 12:27:10 Visit Fransisco A AMBULATOR 350.1.13.21 College Y 0.2.7.2.686 of [id number] [place] 345385 e 2019-08-17 2019-08-17 Office FELY Martinez 1.2.840.114 [id number] 10:00:59 12:27:10 Visit Fransisco A AMBULATOR 350.1.13.21 Y 0.2.7.2.686 [id number] [facility] 2019-07-16 2019-07-16 Office FELY Martinez 1.2.840.114 [id number] [facility] 08:36:52 11:36:45 Visit Fransisco A AMBULATOR 350.1.13.21 College Y 0.2.7.2.686 of [id number] [place] [address] e 2019-07-16 2019-07-16 Office FELY Martinez 1.2.840.114 [id number] 08:36:52 11:36:45 Visit Fransisco A AMBULATOR 350.1.13.21 Y 0.2.7.2.686 [id number] 825 2019-03-20 2019-03-21 Office FELY Martinez 1.2.840.114 [id number] 09:40:39 14:45:44 Visit Fransisco A AMBULATOR 350.1.13.21 Y 0.2.7.2.686 [id number] 820 2019-03-20 2019-03-21 Office FELY Martinez 1.2.840.114 [id number] 91 [facility] 09:40:39 14:45:44 Visit Fransisco A AMBULATOR 350.1.13.21 College Y 0.2.7.2.686 of [id number] [facility] 820 e 2019-03-20 2019-03-20 Office FELY Barboza 1.2.840.114 [id number] 07:41:29 08:11:29 Visit Nel AMBULATOR 350.1.13.21 Y 0.2.7.2.686 [id number] 355 2019-03-20 2019-03-20 Office FELY Barboza 1.2.840.[id number] [place] [address] 07:41:29 08:11:29 Visit Nel AMBULATOR 350.1.13.21 College Y 0.2.7.2.686 of [id number] [facility] 355 e 2019-03-06 2019-03-06 Office FELY Martinez 1.2.840.114 [id number] 11:26:14 11:56:14 Visit Fransisco A AMBULATOR 350.1.13.21 Y 0.2.7.2.686 [id number] 820 2019-03-06 2019-03-06 Office FELY Martinez 1.2.840.[id number] [place] [address] 11:26:14 11:56:14 Visit Fransisco A AMBULATOR 350.1.13.21 College Y 0.2.7.2.686 of [id number] [facility] 820 e 2019-03-06 2019-03-06 Office FELY Barboza 1.2.840.114 [id number] 09:38:52 10:08:52 Visit Nel AMBULATOR 350.1.13.21 Y 0.2.7.2.686 [id number] 355 2019-03-06 2019-03-06 Office FELY Barboza 1.2.840.114 [id number] 18 [facility] 09:38:52 10:08:52 Visit Nel AMBULATOR 350.1.13.21 College Y 0.2.7.2.686 of [id number] [facility] 355 e 2019-02-21 2019-02-21 Office FELY Martinez 1.2.840.114 [id number] 11:09:51 13:35:52 Visit Fransisco A AMBULATOR 350.1.13.21 Y 0.2.7.2.686 [id number] 820 2019-02-21 2019-02-21 Office FELY Martinez 1.2.840.[id number] [place] [address] 11:09:51 13:35:52 Visit Fransisco A AMBULATOR 350.1.13.21 College Y 0.2.7.2.686 of [id number] [facility] 820 e 2019-02-21 2019-02-21 Office FELY Barboza 1.2.840.114 [id number] 09:36:32 10:06:32 Visit Nel AMBULATOR 350.1.13.21 Y 0.2.7.2.686 [id number] 355 2019-02-21 2019-02-21 Office FELY Barboza 1.2.840.[id number] [place] [address] 09:36:32 10:06:32 Visit Nel AMBULATOR 350.1.13.21 College Y 0.2.7.2.686 of [id number] [facility] 355 e 2019-02-05 2019-02-05 Office FELY Barboza 1.2.840.114 [id number] 13:46:52 14:46:52 Visit Nel AMBULATOR 350.1.13.21 Y 0.2.7.2.686 [id number] 355 2019-02-05 2019-02-05 Office FELY Barboza 1.2.840.114 [id number] 88 [facility] 13:46:52 14:46:52 Visit Nel AMBULATOR 350.1.13.21 College Y 0.2.7.2.686 of [id number] [facility] dalia 355 e 2019-02-05 2019-02-05 Office FELY Martinez 1.2.840.114 [id number] 11:23:12 11:53:12 Visit Fransisco Alvarez AMBULATOR 350.1.13.21 Y 0.2.7.2.686 [id number] 820 2019-02-05 2019-02-05 Office FELY Martinez 1.2.840.114 [id number] 73 [facility] 11:23:12 11:53:12 Visit Fransisco Alvarez AMBULATOR 350.1.13.21 College Y 0.2.7.2.686 of [id number] [facility] 820 e 2010-12-22 2010-12-24 Inpatient TERE Marin [facility] [id number] [facility] 07:05:00 16:45:00 Lobo [address] [facility] Results Test Description Test Time Test Comments Results Result Comments Source GLUCOSE BEDSIDE TESTING 2021-06-02 15:35:00 Test Item Value Reference Range Interpretation Comme nts GLUCOSE BEDSIDE TESTING (test code = GLUBED) 69 MG/DL 60-99 N GLUCOSE BEDSIDE [id number] 11:19:00 Test Item Value Reference Range Interpretation Comments GLUCOSE BEDSIDE TESTING (test code 105 MG/DL 60-99 H = GLUBED) - XR CHEST [id number] 08:24:00 [facility] : 1940 Sex: M Patient Name: KIP MARCH Unit No: [id number] EXAMS: CPT CODE: [id number] XR CHEST 1V 23782 C3 TIME OF STUDY: 06/02/2021 6:00 AM [...] t.SDR.SI1 Orig Print D/T: S: 06/02/2021 (827) [facility] NAME: KIP MARCH [id number] [place] PHYS: [place] [address] : 1940 AGE: 81 SEX: M LOC: Z.350 A PHONE #: [phone] EXAM DATE: 06/02/2021 STATUS: ADM IN FAX #: [phone] RADIOLOGY NO: PAGE 1 Signed ReportGLUCOSE BEDSIDE [id number] 07:10:00 Test Item Value Reference Range Interpretation Comments GLUCOSE BEDSIDE TESTING (test code 109 MG/DL 60-99 H = GLUBED) GLUCOSE BEDSIDE [id number] 23:58:00 Test Item Value Reference Range Interpretation Comments GLUCOSE BEDSIDE TESTING (test code 189 MG/DL 60-99 H = GLUBED) - XR CHEST [id number] 20:42:00 [facility] : 1940 Sex: M Patient Name: KIP MARCH Unit No: [id number] EXAMS: CPT CODE: [id number] XR CHEST 1V 87828 EXAM: - XR CHEST 1V INDICATION: S/P [...] Rose.AH26 Orig Print D/T: S: 06/01/2021 (2044) [facility] NAME: KIP MARCH [id number] [place] PHYS: [place] [address] : 1940 AGE: 81 SEX: M LOC: Z.350 A PHONE #: [phone] EXAM DATE: 06/01/2021 STATUS: ADM IN FAX #: [phone] RADIOLOGY NO: PAGE 1 Signed ReportGLUCOSE BEDSIDE [id number] 20:28:00 Test Item Value Reference Range Interpretation Comments GLUCOSE BEDSIDE TESTING (test code 130 MG/DL 60-99 H = GLUBED) GLUCOSE BEDSIDE [id number] 19:15:00 Test Item Value Reference Range Interpretation Comments GLUCOSE BEDSIDE TESTING (test code = 71 MG/DL 60-99 N GLUBED) GLUCOSE BEDSIDE [id number] 16:53:00 Test Item Value Reference Range Interpretation Comments GLUCOSE BEDSIDE TESTING (test code = 97 MG/DL 60-99 N GLUBED) COVID 19 Asymptomatic IH [id number] 16:20:00 Test Item Value Reference Range Interpretation [...] in the sample." Spec Comments: PRE-OPBASIC METABOLIC [id number] 16:06:00 Test Item Value Reference Range Interpretation [...] = 8.8 MG/DL 8.4-10.2 N CA) PROTHROMBIN [id number] 16:04:00 Test Item Value Reference Range Interpretation [...] syste keny embolism. 3.0 - 4.5 PTT [id number] 16:04:00 Test Item Value Reference Range Interpretation Comments PTT ACTIVATED (test code = APTT) 34.6 SECONDS 25.1-36.5 CBC W/AUTO [id number] 15:53:00 Test Item Value Reference Range Interpretation [...] K/mm3 0.0-0.1 N NRBC#) - XR CHEST [id number] 13:00:00 [facility] : 1940 Sex: M Patient Name: KIP MARCH Unit No: [id number] EXAMS: CPT CODE: [id number] XR CHEST 1V 32084 EXAMINATION: - XR CHEST 1V. LOCATION: B2. [...] (1300) t.CLARER.PR7 Orig Print D/T: S: 06/01/2021 (6503) [facility] NAME: KIP MARCH [id number] [place] PHYS: [place] [address] : 1940 AGE: 81 SEX: M LOC: Z.SRG PHONE #:[phone] EXAM DATE: 06/01/2021 STATUS: REG [facility] FAX #: [phone] RADIOLOGY NO: PAGE 1 Signed Report- XR CHEST 2 [id number] 16:44:00 [facility] : 1940 Sex: M Patient Name: KIP STOREY Unit No: [id number] EXAMS: CPT CODE: [id number] XR CHEST 2 V 65723 B2 EXAM: - XR CHEST 2 V [...] t.CLARER.VB7 Orig Print D/T: S: 05/28/2021 (1647) [facility] NAME: KIP JUAREZ [id number] [place] PHYS: [place] [address] : 1940 AGE: 81 SEX: M LOC: GAGE PHONE #: [phone] EXAM DATE: 05/28/2021 STATUS: REG CLI FAX #: [phone] RADIOLOGY NO: PAGE 1 Signed ReportGLUCOSE BEDSIDE [id number] 06:29:00 Test Item Value Reference Range Interpretation Comments GLUCOSE BEDSIDE TESTING (test code 127 MG/DL 60-99 H = GLUBED) GLUCOSE BEDSIDE [id number] 20:00:00 Test Item Value Reference Range Interpretation Comments GLUCOSE BEDSIDE TESTING (test code 122 MG/DL 60-99 H = GLUBED) GLUCOSE BEDSIDE [id number] 16:28:00 Test Item Value Reference Range Interpretation Comments GLUCOSE BEDSIDE TESTING (test code 167 MG/DL 60-99 H = GLUBED) GLUCOSE BEDSIDE [id number] 11:44:00 Test Item Value Reference Range Interpretation Comments GLUCOSE BEDSIDE TESTING (test code 151 MG/DL 60-99 H = GLUBED) GLUCOSE BEDSIDE [id number] 06:22:00 Test Item Value Reference Range Interpretation Comments GLUCOSE BEDSIDE TESTING (test code 122 MG/DL 60-99 H = GLUBED) PROTHROMBIN [id number] 05:23:00 Test Item Value Reference Range Interpretation [...] keny embolism. 3.0 - 4.5 GLUCOSE BEDSIDE [id number] 19:43:00 Test Item Value Reference Range Interpretation Comments GLUCOSE BEDSIDE TESTING (test code 124 MG/DL 60-99 H = GLUBED) GLUCOSE BEDSIDE [id number] 15:51:00 Test Item Value Reference Range Interpretation Comments GLUCOSE BEDSIDE TESTING (test code 140 MG/DL 60-99 H = GLUBED) GLUCOSE BEDSIDE [id number] 11:46:00 Test Item Value Reference Range Interpretation Comments GLUCOSE BEDSIDE TESTING (test code 157 MG/DL 60-99 H = GLUBED) GLUCOSE BEDSIDE [id number] 06:11:00 Test Item Value Reference Range Interpretation Comments GLUCOSE BEDSIDE TESTING (test code 106 MG/DL 60-99 H = GLUBED) PROTHROMBIN [id number] 05:38:00 Test Item Value Reference Range Interpretation [...] keny embolism. 3.0 - 4.5 GLUCOSE BEDSIDE [id number] 20:36:00 Test Item Value Reference Range Interpretation Comments GLUCOSE BEDSIDE TESTING (test code 115 MG/DL 60-99 H = GLUBED) GLUCOSE BEDSIDE [id number] 16:42:00 Test Item Value Reference Range Interpretation Comments GLUCOSE BEDSIDE TESTING (test code 156 MG/DL 60-99 H = GLUBED) GLUCOSE BEDSIDE [id number] 11:49:00 Test Item Value Reference Range Interpretation Comments GLUCOSE BEDSIDE TESTING (test code 145 MG/DL 60-99 H = GLUBED) GLUCOSE BEDSIDE [id number] 07:15:00 Test Item Value Reference Range Interpretation Comments GLUCOSE BEDSIDE TESTING (test code 120 MG/DL 60-99 H = GLUBED) BASIC METABOLIC [id number] 06:10:00 Test Item Value Reference Range Interpretation [...] = 7.8 MG/DL 8.4-10.2 L CA) PROTHROMBIN [id number] 05:55:00 Test Item Value Reference Range Interpretation Comments PROTHROMBIN TIME 44.9 SECONDS 9.5-12.7 HH CALLED TO Jarrell Martinez& PATIENT (test code = LEXYC K ON PTP) 04/18/21 AT 055 5 [...] keny embolism. 3.0 - 4.5 CBC W/AUTO [id number] 05:43:00 Test Item Value Reference Range Interpretation [...] 0.00 K/mm3 0.0-0.1 N NRBC#) GLUCOSE BEDSIDE [id number] 20:20:00 Test Item Value Reference Range Interpretation Comments GLUCOSE BEDSIDE TESTING (test code 153 MG/DL 60-99 H = GLUBED) GLUCOSE BEDSIDE [id number] 16:50:00 Test Item Value Reference Range Interpretation Comments GLUCOSE BEDSIDE TESTING (test code 143 MG/DL 60-99 H = GLUBED) GLUCOSE BEDSIDE [id number] 10:54:00 Test Item Value Reference Range Interpretation Comments GLUCOSE BEDSIDE TESTING (test code 158 MG/DL 60-99 H = GLUBED) GLUCOSE BEDSIDE [id number] 06:13:00 Test Item Value Reference Range Interpretation Comments GLUCOSE BEDSIDE TESTING (test code 113 MG/DL 60-99 H = GLUBED) PROTHROMBIN [id number] 05:35:00 Test Item Value Reference Range Interpretation [...] keny embolism. 3.0 - 4.5 GLUCOSE BEDSIDE [id number] 19:54:00 Test Item Value Reference Range Interpretation Comments GLUCOSE BEDSIDE TESTING (test code 126 MG/DL 60-99 H = GLUBED) GLUCOSE BEDSIDE [id number] 16:58:00 Test Item Value Reference Range Interpretation Comments GLUCOSE BEDSIDE TESTING (test code 141 MG/DL 60-99 H = GLUBED) GLUCOSE BEDSIDE [id number] 12:09:00 Test Item Value Reference Range Interpretation Comments GLUCOSE BEDSIDE TESTING (test code 184 MG/DL 60-99 H = GLUBED) GLUCOSE BEDSIDE [id number] 05:59:00 Test Item Value Reference Range Interpretation Comments GLUCOSE BEDSIDE TESTING (test code = 99 MG/DL 60-99 N GLUBED) PROTHROMBIN [id number] 05:25:00 Test Item Value Reference Range Interpretation [...] keny embolism. 3.0 - 4.5 Comments to [employer] Operator: YGLUCOSE BEDSIDE [id number] 19:46:00 Test Item Value Reference Range Interpretation Comments GLUCOSE BEDSIDE TESTING (test code 140 MG/DL 60-99 H = GLUBED) GLUCOSE BEDSIDE [id number] 16:59:00 Test Item Value Reference Range Interpretation Comments GLUCOSE BEDSIDE TESTING (test code 173 MG/DL 60-99 H = GLUBED) GLUCOSE BEDSIDE [id number] 11:34:00 Test Item Value Reference Range Interpretation Comments GLUCOSE BEDSIDE TESTING (test code 150 MG/DL 60-99 H = GLUBED) PROTHROMBIN [id number] 05:57:00 Test Item Value Reference Range Interpretation [...] keny embolism. 3.0 - 4.5 GLUCOSE BEDSIDE [id number] 05:48:00 Test Item Value Reference Range Interpretation Comments GLUCOSE BEDSIDE TESTING (test code = 87 MG/DL 60-99 N GLUBED) GLUCOSE BEDSIDE [id number] 20:42:00 Test Item Value Reference Range Interpretation Comments GLUCOSE BEDSIDE TESTING (test code = 95 MG/DL 60-99 N GLUBED) GLUCOSE BEDSIDE [id number] 16:22:00 Test Item Value Reference Range Interpretation Comments GLUCOSE BEDSIDE TESTING (test code 110 MG/DL 60-99 H = GLUBED) GLUCOSE BEDSIDE [id number] 11:23:00 Test Item Value Reference Range Interpretation Comments GLUCOSE BEDSIDE TESTING (test code 101 MG/DL 60-99 H = GLUBED) GLUCOSE BEDSIDE [id number] 06:34:00 Test Item Value Reference Range Interpretation Comments GLUCOSE BEDSIDE TESTING (test code = 66 MG/DL 60-99 N GLUBED) PROTHROMBIN [id number] 05:54:00 Test Item Value Reference Range Interpretation [...] keny embolism. 3.0 - 4.5 BASIC METABOLIC [id number] 05:45:00 Test Item Value Reference Range Interpretation [...] 8.0 MG/DL 8.4-10.2 L CA) CBC W/AUTO [id number] 05:36:00 Test Item Value Reference Range Interpretation [...] 0.00 K/mm3 0.0-0.1 N NRBC#) GLUCOSE BEDSIDE [id number] 19:46:00 Test Item Value Reference Range Interpretation Comments GLUCOSE BEDSIDE TESTING (test 70 MG/DL 60-99 N Notified Nurse~ code = GLUBED) GLUCOSE BEDSIDE [id number] 15:58:00 Test Item Value Reference Range Interpretation Comments GLUCOSE BEDSIDE TESTING (test 84 MG/DL 60-99 N Notified Nurse~ code = GLUBED) GLUCOSE BEDSIDE [id number] 11:58:00 Test Item Value Reference Range Interpretation Comments GLUCOSE BEDSIDE TESTING (test code = 79 MG/DL 60-99 N GLUBED) GLUCOSE BEDSIDE [id number] 06:24:00 Test Item Value Reference Range Interpretation Comments GLUCOSE BEDSIDE TESTING (test code = 70 MG/DL 60-99 N GLUBED) PROTHROMBIN [id number] 04:18:00 Test Item Value Reference Range Interpretation [...] keny embolism. 3.0 - 4.5 GLUCOSE BEDSIDE [id number] 20:30:00 Test Item Value Reference Range Interpretation Comments GLUCOSE BEDSIDE TESTING (test code = 73 MG/DL 60-99 N GLUBED) GLUCOSE BEDSIDE [id number] 16:04:00 Test Item Value Reference Range Interpretation Comments GLUCOSE BEDSIDE TESTING (test code 138 MG/DL 60-99 H = GLUBED) GLUCOSE BEDSIDE [id number] 11:10:00 Test Item Value Reference Range Interpretation Comments GLUCOSE BEDSIDE TESTING (test code 141 MG/DL 60-99 H = GLUBED) PROTHROMBIN [id number] 10:19:00 Test Item Value Reference Range Interpretation [...] keny embolism. 3.0 - 4.5 GLUCOSE BEDSIDE [id number] 06:29:00 Test Item Value Reference Range Interpretation Comments GLUCOSE BEDSIDE TESTING (test code 106 MG/DL 60-99 H = GLUBED) GLUCOSE BEDSIDE [id number] 20:59:00 Test Item Value Reference Range Interpretation Comments GLUCOSE BEDSIDE TESTING (test code 129 MG/DL 60-99 H = GLUBED) GLUCOSE BEDSIDE [id number] 16:08:00 Test Item Value Reference Range Interpretation Comments GLUCOSE BEDSIDE TESTING (test code 138 MG/DL 60-99 H = GLUBED) GLUCOSE BEDSIDE [id number] 12:00:00 Test Item Value Reference Range Interpretation Comments GLUCOSE BEDSIDE TESTING (test code 165 MG/DL 60-99 H = GLUBED) GLUCOSE BEDSIDE [id number] 06:00:00 Test Item Value Reference Range Interpretation Comments GLUCOSE BEDSIDE TESTING (test code 135 MG/DL 60-99 H = GLUBED) PROTHROMBIN [id number] 05:06:00 Test Item Value Reference Range Interpretation [...] keny embolism. 3.0 - 4.5 GLUCOSE BEDSIDE [id number] 22:19:00 Test Item Value Reference Range Interpretation Comments GLUCOSE BEDSIDE TESTING (test code 109 MG/DL 60-99 H = GLUBED) GLUCOSE BEDSIDE [id number] 17:50:00 Test Item Value Reference Range Interpretation Comments GLUCOSE BEDSIDE TESTING (test code 181 MG/DL 60-99 H = GLUBED) COVID 19 Asymptomatic IH [id number] 16:07:00 Test Item Value Reference Range Interpretation [...] virus (antigen) in the sample." GLUCOSE BEDSIDE [id number] 12:31:00 Test Item Value Reference Range Interpretation Comments GLUCOSE BEDSIDE TESTING (test code 158 MG/DL 60-99 H = GLUBED) GLUCOSE BEDSIDE [id number] 08:05:00 Test Item Value Reference Range Interpretation Comments GLUCOSE BEDSIDE TESTING (test code 150 MG/DL 60-99 H = GLUBED) PROTHROMBIN [id number] 07:45:00 Test Item Value Reference Range Interpretation [...] keny embolism. 3.0 - 4.5 GLUCOSE BEDSIDE [id number] 20:12:00 Test Item Value Reference Range Interpretation Comments GLUCOSE BEDSIDE TESTING (test code 169 MG/DL 60-99 H = GLUBED) GLUCOSE BEDSIDE [id number] 17:34:00 Test Item Value Reference Range Interpretation Comments GLUCOSE BEDSIDE TESTING (test code 163 MG/DL 60-99 H = GLUBED) GLUCOSE BEDSIDE [id number] 16:43:00 Test Item Value Reference Range Interpretation Comments GLUCOSE BEDSIDE TESTING (test code 148 MG/DL 60-99 H = GLUBED) GLUCOSE BEDSIDE [id number] 07:51:00 Test Item Value Reference Range Interpretation Comments GLUCOSE BEDSIDE TESTING (test code 160 MG/DL 60-99 H = GLUBED) BASIC METABOLIC [id number] 05:38:00 Test Item Value Reference Range Interpretation [...] 7.9 MG/DL 8.4-10.2 L CA) CBC W/AUTO [id number] 05:13:00 Test Item Value Reference Range Interpretation [...] 0.00 K/mm3 0.0-0.1 N NRBC#) GLUCOSE BEDSIDE [id number] 20:31:00 Test Item Value Reference Range Interpretation Comments GLUCOSE BEDSIDE TESTING (test code 131 MG/DL 60-99 H = GLUBED) GLUCOSE BEDSIDE [id number] 17:41:00 Test Item Value Reference Range Interpretation Comments GLUCOSE BEDSIDE TESTING (test code 207 MG/DL 60-99 H = GLUBED) GLUCOSE BEDSIDE [id number] 11:29:00 Test Item Value Reference Range Interpretation Comments GLUCOSE BEDSIDE TESTING (test code 199 MG/DL 60-99 H = GLUBED) GLUCOSE BEDSIDE [id number] 08:34:00 Test Item Value Reference Range Interpretation Comments GLUCOSE BEDSIDE TESTING (test code 183 MG/DL 60-99 H = GLUBED) GLUCOSE BEDSIDE [id number] 20:33:00 Test Item Value Reference Range Interpretation Comments GLUCOSE BEDSIDE TESTING (test code 153 MG/DL 60-99 H = GLUBED) GLUCOSE BEDSIDE [id number] 16:33:00 Test Item Value Reference Range Interpretation Comments GLUCOSE BEDSIDE TESTING (test code 180 MG/DL 60-99 H = GLUBED) GLUCOSE BEDSIDE [id number] 12:12:00 Test Item Value Reference Range Interpretation Comments GLUCOSE BEDSIDE TESTING (test code 232 MG/DL 60-99 H = GLUBED) GLUCOSE BEDSIDE [id number] 07:35:00 Test Item Value Reference Range Interpretation Comments GLUCOSE BEDSIDE TESTING (test code 176 MG/DL 60-99 H = GLUBED) BASIC METABOLIC [id number] 05:52:00 Test Item Value Reference Range Interpretation [...] code = 7.7 MG/DL 8.4-10.2 L CA) [id number] 05:52:00 Test Item Value Reference Range Interpretation Comments MAGNESIUM (test code = MAG) 2.1 MG/DL 1.6-2.3 N CBC W/AUTO [id number] 05:42:00 Test Item Value Reference Range Interpretation [...] 0.00 K/mm3 0.0-0.1 N NRBC#) GLUCOSE BEDSIDE [id number] 21:00:00 Test Item Value Reference Range Interpretation Comments GLUCOSE BEDSIDE TESTING (test code 193 MG/DL 60-99 H = GLUBED) GLUCOSE BEDSIDE [id number] 17:25:00 Test Item Value Reference Range Interpretation Comments GLUCOSE BEDSIDE TESTING (test code 141 MG/DL 60-99 H = GLUBED) GLUCOSE BEDSIDE [id number] 12:25:00 Test Item Value Reference Range Interpretation Comments GLUCOSE BEDSIDE TESTING (test code 172 MG/DL 60-99 H = GLUBED) GLUCOSE BEDSIDE [id number] 07:16:00 Test Item Value Reference Range Interpretation Comments GLUCOSE BEDSIDE TESTING (test code 169 MG/DL 60-99 H = GLUBED) [id number] 04:58:00 Test Item Value Reference Range Interpretation Comments DIGOXIN (test code = DIG) 0.7 NG/ML 0.8-2.0 L COMPREHENSIVE METABOLIC [id number] 04:54:00 Test Item Value Reference Range Interpretation [...] anemia ) with specific assays on the [employer] of which Total Protein is one [...] PHOSPHATASE (test code = ALKP) CBC W/AUTO [id number] 04:51:00 Test Item Value Reference Range Interpretation [...] 0.02 K/mm3 0.0-0.1 N NRBC#) GLUCOSE BEDSIDE [id number] 23:43:00 Test Item Value Reference Range Interpretation Comments GLUCOSE BEDSIDE TESTING (test code 165 MG/DL 60-99 H = GLUBED) GLUCOSE BEDSIDE [id number] 17:32:00 Test Item Value Reference Range Interpretation Comments GLUCOSE BEDSIDE TESTING (test code 133 MG/DL 60-99 H = GLUBED) GLUCOSE BEDSIDE [id number] 17:24:00 Test Item Value Reference Range Interpretation Comments GLUCOSE BEDSIDE TESTING (test code 264 MG/DL 60-99 H = GLUBED) BASIC METABOLIC [id number] 09:21:00 Test Item Value Reference Range Interpretation [...] 7.5 MG/DL 8.4-10.2 L CA) HEPATIC FUNCTION [id number] 09:21:00 Test Item Value Reference Range Interpretation [...] PHOSPHATASE (test code = ALKP) GLUCOSE BEDSIDE [id number] 07:58:00 Test Item Value Reference Range Interpretation Comments GLUCOSE BEDSIDE TESTING (test code 188 MG/DL 60-99 H = GLUBED) LACTIC [id number] 05:26:00 Test Item Value Reference Range Interpretation Comments LACTIC ACID (test code = LACT) 0.9 MMOL/L 0.7-2.1 N CBC W/AUTO [id number] 05:23:00 Test Item Value Reference Range Interpretation [...] 0.00 K/mm3 0.0-0.1 N NRBC#) GLUCOSE BEDSIDE [id number] 21:14:00 Test Item Value Reference Range Interpretation Comments GLUCOSE BEDSIDE TESTING (test code 178 MG/DL 60-99 H = GLUBED) GLUCOSE BEDSIDE [id number] 17:54:00 Test Item Value Reference Range Interpretation Comments GLUCOSE BEDSIDE TESTING (test code 184 MG/DL 60-99 H = GLUBED) GLUCOSE BEDSIDE [id number] 11:30:00 Test Item Value Reference Range Interpretation Comments GLUCOSE BEDSIDE TESTING (test code 211 MG/DL 60-99 H = GLUBED) - XR CHEST [id number] 08:20:00 [facility] 1940 Sex: M Patient Name: KIP MARCH Unit No: [id number] EXAMS: CPT CODE: [id number] XR CHEST 1V 93772 HISTORY: Status post CABG Comparison April 03, [...] Rose.RK5 Orig Print D/T: S: 04/04/2021 (0823) [facility] NAME: KIP MARCH [id number] [address] [place] PHYS: [place] [address] : 1940 AGE: 81 SEX: M LOC: Z.SI02 A PHONE #: [phone] EXAM DATE: 04/04/2021 STATUS: ADM IN FAX #: [phone] RADIOLOGY NO: PAGE 1 Signed ReportGLUCOSE BEDSIDE [id number] 07:36:00 Test Item Value Reference Range Interpretation Comments GLUCOSE BEDSIDE TESTING (test code 176 MG/DL 60-99 H = GLUBED) GLUCOSE BEDSIDE [id number] 21:45:00 Test Item Value Reference Range Interpretation Comments GLUCOSE BEDSIDE TESTING (test code 184 MG/DL 60-99 H = GLUBED) GLUCOSE BEDSIDE [id number] 17:51:00 Test Item Value Reference Range Interpretation Comments GLUCOSE BEDSIDE TESTING (test code 159 MG/DL 60-99 H = GLUBED) - XR CHEST [id number] 13:23:00 [facility] 1940 Sex: M Patient Name: KIP MARCH Unit No: [id number] EXAMS: CPT CODE: [id number] XR CHEST 1V 59914 EXAMINATION: - XR CHEST 1V. LOCATION: B2. [...] t.CLARER.PR7 Orig Print D/T: S: 04/03/2021 (1326) [facility] NAME: KIP MARCH [address] [id number] [address] [place] PHYS: [place] [address] : 1940 AGE: 81 SEX: M LOC: Z.SI02 A PHONE #: [phone] EXAM DATE: 04/03/2021TATUS: ADM IN FAX #: [phone] RADIOLOGY NO: PAGE 1 Signed Report GLUCOSE BEDSIDE [id number] 12:15:00 Test Item Value Reference Range Interpretation Comments GLUCOSE BEDSIDE TESTING (test code 278 MG/DL 60-99 H = GLUBED) HGB [id number] 09:25:00 Test Item Value Reference Range Interpretation Comments HEMOGLOBIN (test code = HGB) 8.2 G/DL 12.4-16.7 L HEMATOCRIT (test code = HCT) 24.8 % 35.9-49.5 L [id number] 09:05:00 Test Item Value Reference Range Interpretation Comments POTASSIUM (test code = K) 4.3 MMOL/L 3.5-5.1 N [id number] 09:05:00 Test Item Value Reference Range Interpretation Comments CALCIUM (test code = CA) 7.8 MG/DL 8.4-10.2 L [id number] 09:05:00 Test Item Value Reference Range Interpretation Comments MAGNESIUM (test code = MAG) 2.4 MG/DL 1.6-2.3 H - XR CHEST [id number] 07:58:00 [facility] : 1940 Sex: M Patient Name: KIP MARCH Unit No: [id number] EXAMS: CPT CODE: [id number] XR CHEST 1V 02041 EXAMINATION: Frontal chest radiograph INDICATION: S/PCABG COMPARISON: [...] t.SDR.PE1 Orig Print D/T: S: 04/03/2021 (08) [facility] NAME: KIP MARCH[address] [id number] [address] [place] PHYS: [place] [address] : 1940 AGE: 81 SEX: M LOC: Z.SI02 A PHONE #: [phone] EXAM DATE: 04/03/2021 STATUS: ADM IN FAX #: [phone] RADIOLOGY NO: PAGE 1 Signed ReportGLUCOSE BEDSIDE [id number] 07:31:00 Test Item Value Reference Range Interpretation Comments GLUCOSE BEDSIDE TESTING (test code 258 MG/DL 60-99 H = GLUBED) [id number] 00:10:00 Test Item Value Reference Range Interpretation Comments POTASSIUM (test code = K) 4.3 MMOL/L 3.5-5.1 N [id number] 00:10:00 Test Item Value Reference Range Interpretation Comments CALCIUM (test code = CA) 7.4 MG/DL 8.4-10.2 L [id number] 00:10:00 Test Item Value Reference Range Interpretation Comments MAGNESIUM (test code = MAG) 2.4 MG/DL 1.6-2.3 H GLUCOSE BEDSIDE [id number] 20:35:00 Test Item Value Reference Range Interpretation Comments GLUCOSE BEDSIDE TESTING (test code 179 MG/DL 60-99 H = GLUBED) GLUCOSE BEDSIDE [id number] 16:32:00 Test Item Value Reference Range Interpretation Comments GLUCOSE BEDSIDE TESTING (test code 196 MG/DL 60-99 H = GLUBED) GLUCOSE BEDSIDE [id number] 11:12:00 Test Item Value Reference Range Interpretation Comments GLUCOSE BEDSIDE TESTING (test code 184 MG/DL 60-99 H = GLUBED) - XR CHEST [id number] 08:17:00 [facility] : 1940 Sex: M Patient Name: KIP MARCH Unit No: [id number] EXAMS: CPT CODE: [id number] XR CHEST 1V 63806 EXAM: CHEST ONE VIEW INDICATION: S/P CABG [...] (816) 16 Orig Print D/T: S: 04/02/2021 (819) [facility] NAME: KIP MARCH [address] [address] PHYS: [place] [address] : 1940 AGE: 81 SEX: M LOC: Z.SI02 A PHONE #: [phone] EXAM DATE: 04/02/2021 STATUS: ADM IN FAX #: [phone] RADIOLOGY NO: PAGE 1 Signed ReportBASIC METABOLIC [id number] 08:15:00 Test Item Value Reference Range Interpretation [...] Is this a LINE draw? YCBC W/AUTO [id number] 08:08:00 Test Item Value Reference Range Interpretation [...] 0.00 K/mm3 0.0-0.1 N NRBC#) GLUCOSE BEDSIDE [id number] 08:06:00 Test Item Value Reference Range Interpretation Comments GLUCOSE BEDSIDE TESTING (test code 166 MG/DL 60-99 H = GLUBED) GLUCOSE BEDSIDE [id number] 20:49:00 Test Item Value Reference Range Interpretation Comments GLUCOSE BEDSIDE TESTING (test code 181 MG/DL 60-99 H = GLUBED) GLUCOSE BEDSIDE [id number] 14:21:00 Test Item Value Reference Range Interpretation Comments GLUCOSE BEDSIDE TESTING (test code 124 MG/DL 60-99 H = GLUBED) GLUCOSE BEDSIDE [id number] 11:44:00 Test Item Value Reference Range Interpretation Comments GLUCOSE BEDSIDE TESTING (test code 117 MG/DL 60-99 H = GLUBED) - XR CHEST [id number] 08:26:00 [facility] : 1940 Sex: M Patient Name: KIP MARCH Unit No: [id number] EXAMS: CPT CODE: [id number] XR CHEST 1V 18376 REASON FOR EXAM: CABG. COMPARISON: March 31, 2021. Chest, portable single frontal view. The patient has been extubated with the NG tube removed. Right subclavian line and [place]-Cyrus catheter in good position. The lungs are [...] field. Cardiomegaly with mild vascular congestion. Location: [facility] at 0826 Reported and signed by: MARCELLO POLLOCK MD CC: Noni Marquez MD; Santana Rust Technologist: Miriam Herman Transcrpt Date/Tm/Trnsp: 04/01/2021 (08) AmadeoR.RM61 Orig Print D/T: S: 04/01/2021 (828) [facility] NAME: KIP MARCH [address] [address] [place] PHYS: [place] [address] : 1940 AGE: 81 SEX: M LOC: Z.SI02 A PHONE #: [phone] EXAM DATE: 04/01/2021 STATUS: ADM IN FAX #: [phone] RADIOLOGY NO: PAGE 1 Signed ReportGLUCOSE BEDSIDE [id number] 07:50:00 Test Item Value Reference Range Interpretation Comments GLUCOSE BEDSIDE TESTING (test code 180 MG/DL 60-99 H = GLUBED) GLUCOSE BEDSIDE [id number] 06:00:00 Test Item Value Reference Range Interpretation Comments GLUCOSE BEDSIDE TESTING (test code 148 MG/DL 60-99 H = GLUBED) BASIC METABOLIC [id number] 04:42:00 Test Item Value Reference Range Interpretation [...] code = 7.6 MG/DL 8.4-10.2 L CA) [id number] 04:42:00 Test Item Value Reference Range Interpretation Comments MAGNESIUM (test code = MAG) 3.0 MG/DL 1.6-2.3 H CBC W/AUTO [id number] 04:24:00 Test Item Value Reference Range Interpretation [...] 0.00 K/mm3 0.0-0.1 N NRBC#) GLUCOSE BEDSIDE [id number] 04:06:00 Test Item Value Reference Range Interpretation Comments GLUCOSE BEDSIDE TESTING (test code 157 MG/DL 60-99 H = GLUBED) GLUCOSE BEDSIDE [id number] 01:24:00 Test Item Value Reference Range Interpretation Comments GLUCOSE BEDSIDE TESTING (test code 158 MG/DL 60-99 H = GLUBED) GLUCOSE BEDSIDE [id number] 23:16:00 Test Item Value Reference Range Interpretation Comments GLUCOSE BEDSIDE TESTING (test code 163 MG/DL 60-99 H = GLUBED) GLUCOSE BEDSIDE [id number] 22:03:00 Test Item Value Reference Range Interpretation Comments GLUCOSE BEDSIDE TESTING (test code 162 MG/DL 60-99 H = GLUBED) GLUCOSE BEDSIDE [id number] 21:38:00 Test Item Value Reference Range Interpretation Comments GLUCOSE BEDSIDE TESTING (test code 201 MG/DL 60-99 H = GLUBED) GLUCOSE BEDSIDE [id number] 19:19:00 Test Item Value Reference Range Interpretation Comments GLUCOSE BEDSIDE TESTING (test code 205 MG/DL 60-99 H = GLUBED) GLUCOSE BEDSIDE [id number] 18:43:00 Test Item Value Reference Range Interpretation Comments GLUCOSE BEDSIDE TESTING (test code 207 MG/DL 60-99 H = GLUBED) GLUCOSE BEDSIDE [id number] 17:34:00 Test Item Value Reference Range Interpretation Comments GLUCOSE BEDSIDE TESTING (test code 191 MG/DL 60-99 H = GLUBED) PROTHROMBIN [id number] 16:41:00 Test Item Value Reference Range Interpretation [...] syste keny embolism. 3.0 - 4.5 PTT [id number] 16:41:00 Test Item Value Reference Range Interpretation Comments PTT ACTIVATED (test code = APTT) 24.6 SECONDS 25.1-36.5 L GLUCOSE BEDSIDE [id number] 16:31:00 Test Item Value Reference Range Interpretation Comments GLUCOSE BEDSIDE TESTING (test code 192 MG/DL 60-99 H = GLUBED) GLUCOSE BEDSIDE [id number] 16:30:00 Test Item Value Reference Range Interpretation Comments GLUCOSE BEDSIDE TESTING (test code 207 MG/DL 60-99 H = GLUBED) BASIC METABOLIC [id number] 16:25:00 Test Item Value Reference Range Interpretation [...] code = 7.2 MG/DL 8.4-10.2 L CA) [id number] 16:25:00 Test Item Value Reference Range Interpretation Comments MAGNESIUM (test code = MAG) 3.7 MG/DL 1.6-2.3 H CBC W/AUTO [id number] 16:10:00 Test Item Value Reference Range Interpretation [...] 0.00 K/mm3 0.0-0.1 N NRBC#) ARTERIAL BLOOD [id number] 15:50:00 Test Item Value Reference Range Interpretation [...] o and readback by DR. GARVIN by [id number] at 03/31/2021 3:40 :57 PM ABG DELIVERY [...] % 0.4-1.5 L = METHGB) - CHEST [id number] 15:41:00 [facility] : 1940 Sex: M Patient Name: WOJCIECHKIP HICKMAN Unit No: [id number] EXAMS: CPT CODE: [id number] XR CHEST 1V 79638 EXAM: CHEST ONE VIEW INDICATION: S/P CABG LOCATION: B2 COMPARISON: March 30, 2021 TECHNIQUE: AP view of the chest FINDINGS: Tip of the endotracheal tube is 3.3 cm above the cristhian. The enteric tube tip crosses the diaphragm. The right-sided [place]-Cyrus catheter is seen in appropriate position. The [...] 16 Orig Print D/T: S: 03/31/2021 (1721) [facility] NAME: KIP MARCH [address] [address] [place] PHYS: [place] [address] : 1940 AGE: 81 SEX: M LOC: Z.SI02 A PHONE #: [phone] EXAM DATE: 03/31/2021 STATUS: ADM IN FAX #: [phone] RADIOLOGY NO: PAGE 1 Signed ReportBASIC METABOLIC [id number] 15:24:00 Test Item Value Reference Range Interpretation [...] CA) PLEASE CALL RESULTS TO PHONE #: [phone] STATPROTHROMBIN [id number] 15:09:00 Test Item Value Reference Range Interpretation [...] 4.5 PLEASE CALL RESULTS TO PHONE #: [phone] STATPTT [id number] 15:09:00 Test Item Value Reference Range Interpretation Comments PTT ACTIVATED (test code = APTT) 29.9 SECONDS 25.1-36.5 PLEASE CALL RESULTS TO PHONE #: [phone] STATCBC W/AUTO [id number] 14:55:00 Test Item Value Reference Range Interpretation [...] NRBC#) PLEASE CALL RESULTS TO PHONE #: [phone] [facility] ARTERIAL BLOOD [id number] 14:43:00 Test Item Value Reference Range Interpretation Comments POC ARTERIAL BLOOD GAS PH 7.366 7.35-7.45 N (test code = POCPHA) POC ARTERIAL BLOOD GAS PCO2 39.5 mmHg 35.0-45.0 N (test code = JMHEEW7W) POC ARTERIAL BLOOD GAS PO2 550.9 75.0-100.0 HH (test code = BKXWN8S) POC HCO3 ARTERIAL (test 22.6 MMOL/L 20.0-26.0 N code = MKPEUP5L) POC BASE EXCESS (test code -2.6 MMOL/L -3.0-3.0 N = POCBEA) POC O2 SATURATION (test 100.0 % 92.0-98.5 H code = POCO2S) FIO2 (test code = FIO2A) 100 % 21-100 PaO2/FiO2 (test code = 550.90 mm/Hg OYP0SCL6) SODIUM (test code = NA/ABG) 141 MMOL/L [...] 0.7-2.0 HH = LACTP) POC ARTERIAL BLOOD [id number] 13:41:00 Test Item Value Reference Range Interpretation Comments POC ARTERIAL BLOOD GAS PH 7.377 7.35-7.45 N (test code = POCPHA) POC ARTERIAL BLOOD GAS PCO2 41.9 mmHg 35.0-45.0 N (test code = MVYDDH1V) POC ARTERIAL BLOOD GAS PO2 421.6 75.0-100.0 HH (test code = OGDOT1B) POC HCO3 ARTERIAL (test 24.6 MMOL/L 20.0-26.0 N code = ZVORCD2T) POC BASE EXCESS (test code -0.6 MMOL/L -3.0-3.0 N = POCBEA) POC O2 SATURATION (test 100.0 % 92.0-98.5 H code = POCO2S) FIO2 (test code = FIO2A) 90 % 21-100 N PaO2/FiO2 (test code = 468.44 mm/Hg AJS4MRW3) SODIUM (test code = NA/ABG) 137 MMOL/L [...] 0.7-2.0 HH = LACTP) POC ARTERIAL BLOOD [id number] 13:08:00 Test Item Value Reference Range Interpretation Comments POC ARTERIAL BLOOD GAS PH 7.386 7.35-7.45 N (test code = POCPHA) POC ARTERIAL BLOOD GAS PCO2 36.8 mmHg 35.0-45.0 N (test code = VAHDYE7J) POC ARTERIAL BLOOD GAS PO2 437.8 75.0-100.0 HH (test code = NTSPG0X) POC HCO3 ARTERIAL (test 22.1 MMOL/L 20.0-26.0 N code = HXUEER2I) POC BASE EXCESS (test code -2.6 MMOL/L -3.0-3.0 N = POCBEA) POC O2 SATURATION (test 100.0 % 92.0-98.5 H code = POCO2S) FIO2 (test code = FIO2A) 90 % 21-100 PaO2/FiO2 (test code = 486.44 mm/Hg GMC9YZU0) SODIUM (test code = NA/ABG) 135 MMOL/L [...] 0.7-2.0 HH = LACTP) POC ARTERIAL BLOOD [id number] 12:33:00 Test Item Value Reference Range Interpretation Comments POC ARTERIAL BLOOD GAS PH 7.332 7.35-7.45 L (test code = POCPHA) POC ARTERIAL BLOOD GAS PCO2 44.3 mmHg 35.0-45.0 N (test code = WPBIZX4Z) POC ARTERIAL BLOOD GAS PO2 572.1 75.0-100.0 HH (test code = KCJQY7B) POC HCO3 ARTERIAL (test 23.4 MMOL/L 20.0-26.0 N code = FJONCA6P) POC BASE EXCESS (test code -2.4 MMOL/L -3.0-3.0 N = POCBEA) POC O2 SATURATION (test 100.0 % 92.0-98.5 H code = POCO2S) FIO2 (test code = FIO2A) 80 % 21-100 PaO2/FiO2 (test code = 715.12 mm/Hg [id number]) SODIUM (test code = NA/ABG) 139 MMOL/L [...] 0.7-2.0 HH = LACTP) POC ARTERIAL BLOOD [id number] 12:07:00 Test Item Value Reference Range Interpretation Comments POC ARTERIAL BLOOD GAS PH 7.341 7.35-7.45 L (test code = POCPHA) POC ARTERIAL BLOOD GAS PCO2 37.8 mmHg 35.0-45.0 N (test code = [id number]) POC ARTERIAL BLOOD GAS PO2 561.7 75.0-100.0 HH (test code = EJBUB0Q) POC HCO3 ARTERIAL (test 20.5 MMOL/L 20.0-26.0 N code = [id number]) POC BASE EXCESS (test code -4.8 MMOL/L -3.0-3.0 L = POCBEA) POC O2 SATURATION (test 100.0 % 92.0-98.5 H code = POCO2S) FIO2 (test code = FIO2A) 100 % 21-100 PaO2/FiO2 (test code = 561.70 mm/Hg [id number]) SODIUM (test code = NA/ABG) 135 MMOL/L [...] mmol/L 0.7-2.0 HH = LACTP) BASIC METABOLIC [id number] 11:56:00 Test Item Value Reference Range Interpretation [...] CA) PLEASE CALL RESULTS TO PHONE #: [id number] [facility] ARTERIAL BLOOD [id number] 11:25:00 Test Item Value Reference Range Interpretation Comments POC ARTERIAL BLOOD GAS PH 7.260 7.35-7.45 LL (test code = POCPHA) POC ARTERIAL BLOOD GAS PCO2 54.3 mmHg 35.0-45.0 HH (test code = [id number]) POC ARTERIAL BLOOD GAS PO2 471.3 75.0-100.0 HH (test code = KIAQU0O) POC HCO3 ARTERIAL (test 24.4 MMOL/L 20.0-26.0 N code = REXUKD7K) POC BASE EXCESS (test code -3.2 MMOL/L -3.0-3.0 L = POCBEA) POC O2 SATURATION (test 100.0 % 92.0-98.5 H code = POCO2S) FIO2 (test code = FIO2A) 90 % 21-100 PaO2/FiO2 (test code = 523.66 mm/Hg [id number]) SODIUM (test code = NA/ABG) 141 MMOL/L [...] mmol/L 0.7-2.0 HH = LACTP) CBC W/AUTO [id number] 09:49:00 Test Item Value Reference Range Interpretation [...] NRBC#) PLEASE CALL RESULTS TO PHONE #: [id number] [facility] ARTERIAL BLOOD [id number] 09:41:00 Test Item Value Reference Range Interpretation Comments POC ARTERIAL BLOOD GAS PH 7.362 7.35-7.45 N (test code = POCPHA) POC ARTERIAL BLOOD GAS PCO2 45.4 mmHg 35.0-45.0 H (test code = ZBYGVU1G) POC ARTERIAL BLOOD GAS PO2 479.4 75.0-100.0 HH (test code = FXEZX9Z) POC HCO3 ARTERIAL (test 25.8 MMOL/L 20.0-26.0 N code = [id number]) POC BASE EXCESS (test code 0.0 MMOL/L -3.0-3.0 N = POCBEA) POC O2 SATURATION (test 100.0 % 92.0-98.5 H code = POCO2S) FIO2 (test code = FIO2A) 100 % 21-100 N PaO2/FiO2 (test code = 479.40 mm/Hg UYE5ZCS3) SODIUM (test code = NA/ABG) 140 MMOL/L [...] 0.7-2.0 N = LACTP) POC ARTERIAL BLOOD [id number] 07:59:00 Test Item Value Reference Range Interpretation Comments POC ARTERIAL BLOOD GAS PH 7.387 7.35-7.45 N (test code = POCPHA) POC ARTERIAL BLOOD GAS PCO2 42.8 mmHg 35.0-45.0 N (test code = DGBQAR2E) POC ARTERIAL BLOOD GAS PO2 76.2 75.0-100.0 N (test code = RFAXF8R) POC HCO3 ARTERIAL (test 25.8 MMOL/L 20.0-26.0 N code = PEIFWQ6G) POC BASE EXCESS (test code 0.5 MMOL/L [...] mmol/L 0.7-2.0 L = LACTP) GLUCOSE BEDSIDE [id number] 19:10:00 Test Item Value Reference Range Interpretation Comments GLUCOSE BEDSIDE TESTING (test code 246 MG/DL 60-99 H = GLUBED) GLUCOSE BEDSIDE [id number] 16:13:00 Test Item Value Reference Range Interpretation Comments GLUCOSE BEDSIDE TESTING (test code 121 MG/DL 60-99 H = GLUBED) HIV 12 AB [id number] 13:25:00 Test Item Value Reference Range Interpretation Comments HIV 1 2 COMBO AG/AB SCREEN AB/AG NON REACTIVE NONREACTIVE (test code = NUG97SNJRU) GLYCOSYLATED HEMOGLOBIN [id number] 12:53:00 Test Item Value Reference Range Interpretation [...] (test code = MBG) PLT RESPONSE TO [id number] 11:57:00 Test Item Value Reference Range Interpretation [...] had fewer a dverse events. GLUCOSE BEDSIDE [id number] 11:45:00 Test Item Value Reference Range Interpretation Comments GLUCOSE BEDSIDE TESTING (test code 109 MG/DL 60-99 H = GLUBED) COMPREHENSIVE METABOLIC [id number] 10:55:00 Test Item Value Reference Range Interpretation [...] syste keny embolism. 3.0 - 4.5 PTT [id number] 10:53:00 Test Item Value Reference Range Interpretation Comments PTT ACTIVATED (test code = APTT) 39.4 SECONDS 25.1-36.5 H CBC W/AUTO [id number] 10:44:00 Test Item Value Reference Range Interpretation [...] in the last 72 hours- XR CHEST [id number] 10:33:00[facility] : 1940 Sex: M Patient Name: KIP MARCH Unit No: [id number] EXAMS: CPT CODE: [id number] XR CHEST 1V 86147 EXAM: CHEST ONE VIEW INDICATION: Cardiac/Heart Surgery [...] KAREL Reid, RT(R) Transcrpt Date/Tm/Trnsp: 03/30/2021 (1033) [email or web address] Orig Print D/T: S: 03/30/2021 (1036) [facility] NAME: KIP MARCH [address] PHYS: [place] [address] : 1940 AGE: 81 SEX: M : Z.364 A PHONE #: [phone] EXAM DATE: 03/30/2021 STATUS: ADM IN FAX #: [phone] RADIOLOGY NO: PAGE 1 Signed ReportGLUCOSE BEDSIDE TESTING 2021-03-30 07:45:00 Test Item Value Reference Range Interpretation Comments GLUCOSE BEDSIDE TESTING (test code 115 MG/DL 60-99 H = GLUBED) GLUCOSE BEDSIDE [id number] 20:51:00 Test Item Value Reference Range Interpretation Comments GLUCOSE BEDSIDE TESTING (test code 148 MG/DL 60-99 H = GLUBED) GLUCOSE BEDSIDE [id number] 15:50:00 Test Item Value Reference Range Interpretation Comments GLUCOSE BEDSIDE TESTING (test code = 72 MG/DL 60-99 N GLUBED) GLUCOSE BEDSIDE [id number] 11:03:00 Test Item Value Reference Range Interpretation Comments GLUCOSE BEDSIDE TESTING (test code 156 MG/DL 60-99 H = GLUBED) GLUCOSE BEDSIDE [id number] 07:51:00 Test Item Value Reference Range Interpretation Comments GLUCOSE BEDSIDE TESTING (test code 111 MG/DL 60-99 H = GLUBED) [id number] 05:33:00 Test Item Value Reference Range Interpretation Comments PHOSPHOROUS (test code = PHOS) 3.1 MG/DL 2.5-4.5 N [id number] 05:33:00 Test Item Value Reference Range Interpretation Comments MAGNESIUM (test code = MAG) 2.1 MG/DL 1.6-2.3 N BASIC METABOLIC [id number] 05:12:00 Test Item Value Reference Range Interpretation [...] 8.4 MG/DL 8.4-10.2 N CA) CBC W/AUTO [id number] 04:54:00 Test Item Value Reference Range Interpretation [...] 0.00 K/mm3 0.0-0.1 N NRBC#) GLUCOSE BEDSIDE [id number] 21:32:00 Test Item Value Reference Range Interpretation Comments GLUCOSE BEDSIDE TESTING (test code 121 MG/DL 60-99 H = GLUBED) BASIC METABOLIC [id number] 07:07:00 Test Item Value Reference Range Interpretation [...] 0-189 mg/dL VERY HIGH...... ...>/= 190 mg/dL [id number] 07:07:00 Test Item Value Reference Range Interpretation Comments MAGNESIUM (test code = MAG) 2.2 MG/DL 1.6-2.3 N PROTHROMBIN [id number] 06:48:00 Test Item Value Reference Range Interpretation [...] syste keny embolism. 3.0 - 4.5 PTT [id number] 06:48:00 Test Item Value Reference Range Interpretation Comments PTT ACTIVATED (test code = APTT) 34.6 SECONDS 25.1-36.5 N CBC W/AUTO [id number] 06:38:00 Test Item Value Reference Range Interpretation [...] 0.0-0.1 N NRBC#) COVID 19 Asymptomatic IH [id number] 05:30:00 Test Item Value Reference Range Interpretation [...] to Phleb: PLS RUN TEST CALIXTODoretha LORETTA [id number] 18:54:05 Test Item Value Reference Interpretation Comments Range TROPONIN I (test 0.017 ng/mL See_Comment [Automated code = 9766993325) message] The system which generated this result [...] biotin. Lab Interpretation Normal (test code = 66868-6) [facility] 18:41:24 Test Item Value Reference Range Interpretation Comments MAGNESIUM (test code = 4659343884) 1.9 mg/dL 1.7-2.4 Lab Interpretation (test code = Normal 15263-0) [facility] [id number] 18:41:04 Test Item Value Reference Range Interpretation Comments CK (test code = 0667848725) 108 U/L 33-194 Lab Interpretation (test code = Normal 14077-7) [facility] [id number] 17:45:23 Test Item Value Reference Interpretation Comments Range TROPONIN I (test 0.017 ng/mL See_Comment [Automated code = 1766382927) message] The system which generated this result [...] biotin. Lab Interpretation Normal (test code = 95558-9) [facility] [id number] 17:42:00 Test Item Value Reference Range Interpretation Comments NT-proBNP (test code 347 pg/mL See_Comment [Autom ated = 5201274672) message] The system which generated this result transmitted reference range : <=450. The reference range was not used to interpret this result as normal/abnormal . ALANNA (test code = ALANNA) Biotin has been reported to cause a negative bias, interpret results relative to patient's use of biotin. Lab Interpretation Normal (test code = 92836-0) [facility]. METABOLIC PANEL (91600)2021-03-22 17:35:44 Test Item Value Reference Range Interpretation Comments NA (test code = 133 mmol/L 135-145 L 1564583089) K (test code = 4.4 mmol/L 3.5-5.0 5805687945) CL (test code = 98 mmol/L 98-108 3306451550) CO2 TOTAL (test code = 30 mmol/L 23-31 3682844827) AGAP (test code = 2-16 5936720478) BUN (test code = 19 mg/dL 7-23 5989767007) GLUCOSE (test code = 134 mg/dL 70-110 H 8065927686) CREATININE (test code = 1.03 mg/dL 0.60-1.25 4253228448) TOTAL BILI (test code = 0.6 mg/dL 0.1-1.7 4365491960) CALCIUM (test code = 9.1 mg/dL 8.6-10.6 9891370369) T PROTEIN (test code = 6.3 g/dL 6.3-8.2 3888360296) ALBUMIN (test code = 3.9 g/dL 3.5-5.0 2450023209) ALK PHOS (test code = 45 U/L 34-122 9693751039) ALTv (test code = 18 U/L 5-50 1742-6) AST(SGOT) (test code = 27 U/L 13-40 0681695548) eGFR (test code = mL/min/1.73m2 4278237795) ALANNA (test code = ALANNA) Association of [...] tests). Lab Interpretation Abnormal (test code = 25618-3) [facility] WITH [id number] 17:15:43 Test Item Value Reference Range Interpretation Comments WBC (test code = See_Comment [Automated 7075-2) message] The sy stem which generated this result transmitted reference range : 4.20 - 10.70 10*3/?L. The reference range was not used to interpret this result as normal/abnormal . RBC (test code = See_Comment [Automated 369-8) message] The sy stem which generated this [...] RDW-SD (test code = 45.4 fL 38.5-51.6 68568-5) RDW-CV (test code = 14.1 % 12.1-15.4 788-0) PLT (test code = See_Comment [Automated 777-3) message] The sy stem which generated this result transmitted reference range : 150 - 328 10*3/ ?L. The reference r dori was not used to interpret this result as normal/abnormal . MPV (test code = 10.4 fL 9.8-13.0 51695-4) NRBC/100 WBC (test See_Comment [Automat ed code = 7447738724) message] The system which generated this result transmitted reference range : 0.0 - 10.0 /100 WBCs. The refer ence range was not u sed to interpret th is result as normal/abnormal . NRBC x10^3 (test code <0.01 See_Comment [Auto mated = 2434318548) message] The s ystem which generated this result transmitted reference range : 10*3/?L. The reference range was not used to interpret this result as normal/abnormal . GRAN MAT (NEUT) % 60.9 % (test code = 770-8) IMM GRAN % (test code 0.30 % = 9578272335) LYMPH % (test code = 22.6 % 736-9) MONO % (test code = 12.1 % 5905-5) EOS % (test code = 3.8 % 713-8) BASO % (test code = 0.3 % 706-2) GRAN MAT x10^3(ANC) 5.58 10*3/uL 1.99-6.95 (test code = 8874035684) IMM GRAN x10^3 (test 0.03 10*3/uL 0.00-0.06 code = 9490901654) LYMPH x10^3 (test code 2.07 10*3/uL 1.09-3.23 = 731-0) MONO x10^3 (test code 1.11 10*3/uL 0.36-1.02 H = 742-7) EOS x10^3 (test code = 0.35 10*3/uL 0.06-0.53 711-2) BASO x10^3 (test code 0.03 10*3/uL 0.01-0.09 = 704-7) Lab Interpretation Abnormal (test code = 56473-0) [facility]-Glucose [id number] 09:30:00 Test Item Value Reference Range Interpretation Comments POC-Glucose Meter (test 121 mg/dL 70-110 H : TE STED AT [facility] code = 1538) [address] [facility] [address]: [facility] Treater/Techni nan ID = [id number] for ADAM LOURDESARELIS Truong Lab Interpretation (test Abnormal code = 49134-4) [facility]-GLUCOSE [id number] 09:30:00 Test Item Value Reference Range Interpretation Comments POC-GLUCOSE METER 121 mg/dL 70-110 H : TESTED A T [facility] 6720 (BEAKER) (test code = TEJAL Avila [facility], 1538) [address]: [facility] Treater/Techni nan ID = [id number] for ED LESLI WEISS SARS-CoV2/RT-PCR (Asymptomatic ONLY)2021-01-17 00:14:00 Test Item Value Reference Range Interpretation Comments SARS-COV2/RT-PCR (test Negative Negative code = 19522-1) ALANNA (test code = ALANNA) Negative result [...] the Act. Testing was performed using the [employer] SARS-CoV-2 assay. Fact Sheet for Healthcare Providers:https://www.saurabh hoangcote/sarahi/RT SARS-CoV-2 HCP Fact Sheet 51-001748.pdf Fact Sheet for Healthcare Patients:https://www.armond engeliSuppli/sarahi/RT SARS-CoV-2 Patient Fact Sheet EN 51-414011H2.pdf Lab Interpretation Normal (test code = 25523-8) [facility]2021-01-17 00:14:00 Test Item Value Reference Range Interpretation Comments SARS-COV2/RT-PCR (test code = Negative Negative 1270004) Negative result for this test determines that [...] the [employer] SARS-CoV-2 assay.Fact Sheet for Healthcare Providers:https://www.BR Supply.cote/sarahi/RT SARS-CoV-2 HCP Fact Sheet 51- 052900.pdfFact Sheet for Healthcare Patients:https://www.[employer] Supply.[employer]/sarahi/RT SARS-CoV-2 Patient Fact Sheet EN 51-488722C1.pdfBASIC METABOLIC [id number] 12:41:00 Test Item Value Reference Range Interpretation [...] S NOT APPLICABLE FOR DIALYSIS PATIEN TS. [facility] Treat[facility] ID - KEDAR [id number] 12:13:00 Test Item Value Reference Range Interpretation Comments HEMOGLOBIN (BEAKER) (test code = 11.8 GM/DL 13.7-17.5 L 410) [facility] ID - CherylTissue Ubnp5262-05-18 14:26:00 Test Item Value Reference Range Interpretation Comments Case Report (test code Surgical Pathology = 104) Report Case: [id number] Authorizing Provider: Fransisco Martinez DPM Collected: 12/08/2020 05:13 PM Ordering Location: [facility] PERIOPERAT[facility] Received: 12/09/2020 08:04 AM SERVICES Pathologist: Ksenia Gallego MD Specimen: Toe, Left, Left distal 2nd digit toe DIAGNOSIS (test code = l1lkkDWfNFEkq4rmPMUzxRW 3220) uZzEwMzNcZnRuYmpcdWMxIH tccnRmMVxlcGljOTIwMlxhb hBsBFTnkJLaX1QsvvfjFHrq CQ5uDU3ojWcohHQrtZVkUMC vLeTls5xzn613jVEvy5arLA RNttwrvTi2kYzzJ46vm1M5O rlyK53mxOBqTTxwkMZuavzd zgQgFYAAC8IcHInYRyYtSAX IW8KSGTBtVdMyMAiMKHLnMU OXLDIKECGRJ747DAEovgCcP WWPCNGSHbFWOdToU1XGPoTM XMIXM78rGReKH7FNWCDtrpL oCDKGDyVHGn8RGkIKOFOBMM FZWHZVNkFWB1zLJZZITYRUJ kFOVUxBVElPTiBUSVNTVUUg ABTDWMWNC97JRH3BOJpyCEC uXQ2cN8zAEcrpA30JDJRXRB ZWKCKrTN1GPWTDZbUiTQIEW 9eHAsCGFzIbJM1FXD8ACyqJ QkxFXHBhciAgLSBORUdBVEl JCXWFG1JuQRVVOIsHKS6ZMW jfDWZdFDjtNMV0w5rmoBDjO HNzdGUxODAwMFxhbnNpXGRl MivqchogKCUvEKB8mvMpMWI pKOgjJXOdNWixUw9doUHamI tcIxJjXJRtz1ozehJMhohxy Qc0h8voRRMaAdL0mWQqTXuu F0wbxoCmlSMdLTXhIOc6lE6 5SMWbmH3mvVZgIAwzouRoQz O4HUrjPQUvVpA5ETUcrCYxU HFrT2jeMFClQTdfUHUdSMbv bTGiBQF7lOdjh9X0nOYweFI iwYzbYnJsVmLkWxTCr6GeCM m1jNbcH5WbHCFoUzJ4fCPxO GPpIRhjNLMaHTDhtmM3xW90 WGtrfuO3oXHsd8Iqr02ke68 1kR3xhPJoSCK8GZTdJINmsQ CiYFLsBVK2VTRyzLAdU4ffL UYsGG4rcaitAYgoAIuwOJRg wVS8TCFmeUOuK0VxCDOzHXy kVTKjmct3RbBlAl1ikUReyD ryNIumx6obu6pkoCDmCqz3M LIuOpKdVqjpDVtlz5Chn6jy YWSmpl5eFUR0kGYzhYlgv5G 0jRJfUQAceAAgYSZiZT7miM BeXIDfgR2gvwgaGCReYcCns inoPHRdnNndhaRhSk8ssPig LDZ8BJjgY6lopL4zYzS0QQt uI5wdsE6zGZn7LYwgMUGzbO V0xcY1PHTkcWGtO1AwwY1eH YWnWV4uynm0e7awCPO5QBlg APWgApL5cdQ9JAPyuGUlPKZ fuJkfDJuzz112KJS8XeNyQP Tno7DyV1UyqFteP76epVekK 29rSFOhdMpenS3jjFepqG2z UwIpSvRjJCweoScuJL5sAEY cB6pudIVsYYYmKKNiQ2stCf CtkG9xuXjhKBbtvbZeTIVxU eb6DLHixZDuYXZjKiu6XHUy LZAbB81mpqgwMWZ7sV9dq5s qu8UvQXbpSPV4PKMxn10kXX rshkC5IJhhDm7nZZWnTNHjL OolMCA2sX== COMMENT (test code = p9kjjGJsTWUwgBM6GnNeBIH 3359) ri6jgi0MkzXXamEHiWYlczY XhzyLuoq25xAM3gW66BB3tN WWpPwF4AREkkuC3Bbu1MYMp MFRrfXInL518t4krl9ziyeV gfQL1nIqwULRqMITeKAsgHC ZdGdNqQ52qa2vhzKQizVP3l TOiRXCvnl2zuSHpi6A6LX2d uRVwqRNmiv8cRNZ3lARqg7Z 0NH1zuYEmiDDkpoPuwpTmn6 TwIXRkoV1hhLJzvUTjxjWvP Q90FPofOQOcrWDoe4PwgSap blxwYXJ9 CPT Code(s) (test code a8zorLWyEHEhnMI8SqRtAWW = 3357) vj6dgn0PzcFTnuERvMUfpjG DnpkMldj83dYH5zU53YW0uJ WZxJaY5SMNbzeY0Ylb3OUAf XXXbjGFpT906m9eji1eucwN mbOT3dUvhUFGyHVLtRApaON KuEwJjMXfgIAP1XUk7BlGbX HBhcn0= CLINICAL HISTORY (test v1rgmJFnTTUjuHN8VbJrVQX code = 3356) kh4wdf9MxpAErrYSbJLmwgV BrycNxpd10mGS5yP39QF1eA OXjGpP4CIYmlmN2Ynm0XCFc DUKwqEEdE702q3cpk5jksgM rrGN0nKltTWZeFUFgWCyiLS EyAtWiFSfnJAYhu2JqxPYfa JBlz167AVMnve8= SPECIMEN SOURCE (test p7utoSLfMWDacWK1JdSpDHV code = 3377) me4pqv0NriHMwoWHbTPzyzV DzytNdtn63eHL6hM25GM6uB EPiBnO6MGOxhrP5Dpw8NRQp HZMxdMChC809h6fbo0fgqlW gtZH4oRqxRGSlTCUwGRxcQT LwKfCgSC8qQCQzBEO4XZOif n0= GROSS DESCRIPTION s3xxzYVoKJBcqPIaYxCbBXR (test code = 3366) uCXZgi7erDSJjkULrZqKjQy NcZnRuYmpcdWMxXGRlZmYwe 1qpx298cLSxn4zpZNPbYfS2 bOUnYEFvoVWaB615r3fkm2v kvkChoKI2PFBuQMU0MKijao TioiF0TWjomLUhJaU0XFzxb dFeXZqquuDgyaUuSpv8HLHv J200RCP9fYkev6ohIIG3IPT xEACtFqKtMn3dlGVnG408KJ JuZTVYOMVliVq3UCQfrpMij fNohHUXn313Q242q9laDXGt rlUakJrNealmn2niF356ZRT hcGVydzEyMjQwXHBhcGVyaD F4FQCoUQ6ohaquSeMcFT1qf foxWrOiVB5lups0ZsScCV8w cmdiNzIwXGhlYWRlcnkwXGZ ud4SkpkrgQJ1vJ5Lde8T1fP 9maXRcZGVmdGFiNzIwXGZvc z4wgDHnTIuip4LzNDL3xsG6 lTSoqIQuHKVvLC03Qqjgo9K rWwviXDC4AAIpjqVbh9Mii6 qhLpAxbaOjX8zsN1YiVLJmA DAaOUKwItWkczHmu4Vym7Cr iDUjjNw6x1ciKNJmMTEliQr vd0cnXUN8NYWvP7M9oQJyr5 nsADchMNNsyVY2novsYDuoN SRstmA8lfeyECrtMBYkjJY8 dobqUBsaOLHsZdH5hwwwYIh tZZNnOPH9GAoff976NZK1AR xzYmtwYWdlXHBnbmNvbnRcc GduZGVjXHBsYWluXHBsYWlu XGYwXGZzMjRccWxccGxhaW5 tLnJnTbYdTRndUI8cPOOwD7 ipaTHtINIqOMSnR2zqMlKkj Y9lkLznZQrfqzXjUQYiWKJf Y6GrheEgKNDfHBJdBAfuNuL eGFAsx4b4vTH9yCAvvRZ8gE YqvAolFzNmKL5spZHbFJ3sP RqgBSmbynAtu8TvTP82oDBc ciBhbmQgInRvZSwgbGVmdCI uaOYgPLNquXHclpZhQ4RcQO IgHSVapVZ8KYfooF2aIU6hF AJ0rpdmHrThZRYnJQemFMdo pgo7eGOybeGfMzNgrPPlotM veFQyIAGkon2oVNQzPWYbSN gdWDBePUF3xIExfPYiJVNpz qL5NLdrtOuegzA1cvm0oFCf ICBUaGUgcGxhbnRhciBzdXJ vQRUjFXXei8RuYSroICOsIV U4ZWDrwAZkOhIxV03asKOwo 3JyaGFnaWMgdWxjZXIgdGhh lXEolSHeu7XziTBsHQNiOAX he4ifGA8jqfslciYwJce9ZG zhJMTvXXVwroEyWqBeL29kW iRaxVH6gAWoNSvmBMU0oBZ8 wTZ8HVBrHQ0nGhNrHIqhXOL gwIGqlbmrPvSeo7qwXJjyKD rcIWpuy6qsoQJrDCi0oMBha 2OyNSYyiItqPMFfFVJmY0Md oE0hXOWjEHM0jgKbrar9tQ9 mIDXinxIhcLAylKKvrT37HT Ama43fP4Vrc4KoRIPtKMP3u hTeRDX5iWL3JAErXJTHEKKr XJOxhdUmiUr4INUvVZW3kH8 midTbamJxi3YkaWo4kGBhVa btYNVhhNXrGGPvP5Xhs81gN 29kZTpccGFyIEExOiBVbGNl ufY6bjDafE0jOJJ1YIWsbM3 ujYXhY2fkHKErJFBiDM2ekR G0rIGxKRVqZ5Wog69vHRVrt rDkTBuaBNX4lMS5oAR0MIIi OJ1rOKZbhbOrUNFuNIXkx2s tw2soapokVSRvZDwbfPIeO7 K3rM8zGKLjwoJWShdnWVozZ JPyk7t7sNA7lcEqsqw5dA8q CANfgeLqSLAakZggu2xpPdY yEYEcnCIoTfcwHCCfx35ruX HaVRUcztVOvZMrc9FcJEsbM ZItAILCINXbCAWOYTdDX0YB KWNtXHBhcn0= MICROSCOPIC f1jveENlFGUbnQI9WkTcRRI DESCRIPTION (test code lr2bat8PmqAMzqGQsYCcwyS = 3371) BdobNtau82iLF1eU18CF1pV KSsSxM0XZOmhnC2Uuh5HLMc GBHbmAOhQ631i9juw0kxjfJ wfZP4cRsbXHVoNVVfWFvaGF WiCjYjJYVCPu3WEVDWTCZxh n0= [facility] [id number] 14:26:00Surgical Pathology Report Case: [id number] Authorizing Provider: Fransisco Martinez DPM Collected: 12/08/2020 05:13 PM Ordering Location: [facility] PERIOPERAT[facility] Received: 12/09/2020 08:04 AM SERVICES Pathologist: Ksenia Gallego MD Specimen: Toe,Left, Left distal 2nd digit toe FOOT, LEFT, DISTAL 2ND DIGIT, AMPUTATION: - ULCER AND GRANULATION TISSUE - INTER-TRABECULAR FIBROSIS AND GRANULATION TISSUE (SEE COMMENT) - SKIN, SOFT TISSUE AND BONE MARGINS ARE UNREMARKABLE - NEGATIVE FOR MALIGNANCY Signing Pathologist Direct Phone Line: [phone] signed by Ksenia Gallego MD on 12/26/2020 at 2:25 PMConsistent with chronic osteomyelitis. Acute osteomyelitis is not definitely present in this [id number]; 43146Wofjr of left footToe, leftA. Received fresh labeled [...] underlying bone is yellow, homogenous and trabeculated. Awning Hanger Helper sections are submitted.Section code:A1: Ulcer to closest skin margin, perpendicular sections, and disarticulated end, en face, following decalcificationA2: Ulcer with underlying bone, following decalcificationChelsea INDIO Mane, TELMA (ASCP)cmPERFORMEDSurgically obtained culture + gram [id number] 11:53:00 Test Item Value Reference Range Interpretation Comments Result (test code = From Broth Only A 6463-4) Coagulase negative Staphylococcus Gram Stain Result (test No organisms seen code = 1123) ALANNA (test code = ALANNA) Lab Interpretation Abnormal (test code = 12014-2) [facility] + GRAM [id number] 11:53:00 Test Item Value Reference Range Interpretation Comments CULTURE A From Broth Only (BEAKER) (test Coagulase neg ative code = 1095) Staphylococcus GRAM STAIN <1+ WBCs RESULT (BEAKER) (test code = 1123) GRAM STAIN No organisms seen RESULT (BEAKER) (test code = 656746) Anaerobic [id number] 08:04:00 Test Item Value Reference Range Interpretation Comments Result (test code = No anaerobes isolated 6463-4) [facility] [id number] 08:04:00 Test Item Value Reference Range Interpretation Comments CULTURE (BEAKER) (test No anaerobes isolated code = 1095) Blood Culture # 16:00:00 Test Item Value Reference Range Interpretation Comments Result (test code = No growth in 5 days 6463-4) [facility] [id number] 16:00:00 Test Item Value Reference Range Interpretation Comments CULTURE (BEAKER) (test No growth in 5 days code = 1095) BLOOD [id number] 16:00:00 Test Item Value Reference Range Interpretation Comments CULTURE (BEAKER) (test No growth in 5 days code = 1095) POCT-GLUCOSE [id number] 07:40:00 Test Item Value Reference Range Interpretation Comments POC-GLUCOSE METER 130 mg/dL 70-110 H : TESTED A T [facility] (BEAKER) (test code = [place], 1538) [address]: [facility] Treat[facility]/Techni nan ID = [id number] for PATRICIA DUGAN BASIC METABOLIC [id number] 05:04:00 Test Item Value Reference Range Interpretation [...] S NOT APPLICABLE FOR DIALYSIS PATIEN TS. [facility] ID - TODDAYA LRAD, FOOT, 2 VIEWS, [id number] 04:32:00Reason for exam:->post op distal 2nd digit amputaiton for osteomeylitis distal phalanx, left footShould this be performed at the bedside?->No [facility] : 1940 Sex: [...] lower leg, ankle and foot. Signed: [facility] Verified Date/Time: 12/09/2020 04:32:54 POCT- GLUCOSE [id number] 21:22:00 Test Item Value Reference Range Interpretation Comments POC-GLUCOSE METER 245 mg/dL 70-110 H : TESTED A T [facility] ([employer]) (test code = [facility], 1538) [address]: [facility] Treater/Techni nan ID = [id number] for Rick Moreno POCT-GLUCOSE [id number] 18:05:00 Test Item Value Reference Range Interpretation Comments POC-GLUCOSE METER 129 mg/dL 70-110 H : TESTED A T [facility] 67[facility] ([employer]) (test code = [facility], 1538) [address]: [facility] Treater/Techni nan ID = [id number] for Tash Mata POCT-GLUCOSE [id number] 13:50:00 Test Item Value Reference Range Interpretation Comments POC-GLUCOSE METER 140 mg/dL 70-110 H : TESTED A T [facility] 6720 (BEAKER) (test code = TEJAL Avila [facility], 1538) [address]: [facility] Treater/Techni nan ID = [id number] for Lyly Cedeno POCT-GLUCOSE [id number] 09:44:00 Test Item Value Reference Range Interpretation Comments POC-GLUCOSE METER 140 mg/dL 70-110 H : TESTED A T [facility] 6720 ([employer]) (test code = TEJAL Avila [facility], 1538) 22[address]: [facility] Treat[facility]/Techni nan ID = [id number] for Lyly Cedeno WOUND CULTURE + GRAM [id number] 08:55:00 Test Item Value Reference Range Interpretation Comments CULTURE (BARTOLOAKER) PSEUDOMONAS A 3+ Pseudomo jia (test code [...] gram negative (BEAKER) (test code rods = 890432) GRAM STAIN RESULT 1+ budding yeast (BEAKER) (test code with pseudohyphae = 520920) GRAM STAIN RESULT 2+ gram positive (BEAKER) (test code cocci in pairs and = 718724) clusters 1+ Skin floraBASIC METABOLIC [id number] 07:05:00 Test Item Value Reference Range Interpretation [...] S NOT APPLICABLE FOR DIALYSIS PATIEN TS. [facility] ID - [id number] with platelet count + automated [id number] 06:49:00 Test Item Value Reference Range Interpretation Comments WBC (test code = 6690-2) 7.5 See_Comment [A utomated message] The system [employer] generated this result transmitted ref erence range: 3.5 - 10 .5 K/L. The refe rence range was not u sed to interpret this result as normal/abnor mal. RBC (test code = 789-8) 4.40 See_Comment L [Au tomated message] The system [employer] generated this result transmitted ref erence range: 4.63 - 6 .08 M/L. The refe rence range was not u sed to interpret this result as normal/abnor mal. MCHC (test code = 786-4) 32.6 See_Comment L [A utomated message] The system [employer] generated this result transmitted ref erence range: [...] See_Comment [Aut omated message] 777-3) The system [employer] generated this result transmitted ref erence range: 150 - 45 0 K/CU MM. The referen ce range was not u sed to interpret this result as normal/abnor mal. MPV (test code = 10.2 fL 9.4-12.4 23525-3) nRBC (test code = 413) 0 See_Comment [Aut omated message] The system [employer] generated this result transmitted ref erence range: [...] See_Comment [Aut omated message] 670) The system [employer] generated this result transmitted ref erence range: 1.78 - 5 .38 K/L. The refe rence range was not u sed to interpret this result as normal/abnor mal. # Lymphs (test code = 1.98 See_Comment [Auto mated message] 414) The system [employer] generated this result transmitted ref erence range: 1.32 - 3 .57 K/L. The refe rence range was not u sed to interpret this result as normal/abnor mal. # Monos (test code = 1.14 See_Comment H [Autom ated message] 415) The system [employer] generated this result transmitted ref erence range: 0.30 - 0 .82 K/L. The refe rence range was not u sed to interpret this result as normal/abnor mal. # Eos (test code = 416) 0.38 See_Comment [Au tomated message] The system [employer] generated this result transmitted ref erence range: 0.04 - 0 .54 K/L. The refe rence range was not u sed to interpret this result as normal/abnor mal. # Baso (test code = 417) 0.05 See_Comment [A utomated message] The system [employer] generated this result transmitted ref erence range: 0.01 - 0 .08 K/L. The refe rence range was not u sed to interpret this result as normal/abnor mal. Immature 1 % 0-1 Granulocytes-Relative (test code = 2801) Lab Interpretation (test Abnormal code = 89149-4) [facility] W/PLT COUNT & AUTO [id number] 06:49:00 Test Item Value Reference Range Interpretation [...] PERCENT (BEAKER) (test code = 2801) POCT-GLUCOSE [id number] 21:27:00 Test Item Value Reference Range Interpretation Comments POC-GLUCOSE METER 171 mg/dL 70-110 H : TESTED A T [facility] 6720 (BEAKER) (test code = [facility], [facility]) 48818: [facility] Treater/Techni nan ID = [id number] for JARRED BOYD POCT-GLUCOSE [id number] 17:54:00 Test Item Value Reference Range Interpretation Comments POC-GLUCOSE METER 101 mg/dL 70-110 : TESTED A T [facility] 6720 (BEAKER) (test code = [facility], 153) 07759: [facility] Treater/Techni nan ID = [id number] for Ba iley, Sarah POCT-GLUCOSE [id number] 12:56:00 Test Item Value Reference Range Interpretation Comments POC-GLUCOSE METER 144 mg/dL 70-110 H : TESTED A T [facility] 6720 (BEAKER) (test code = [facility], 1538) 05671: [facility] Treater/Techni nan ID = [id number] for Ba iley, Sarah POCT-GLUCOSE [id number] 08:05:00 Test Item Value Reference Range Interpretation Comments POC-GLUCOSE METER 131 mg/dL 70-110 H : TESTED A T [facility] 6720 (BEAKER) (test code = [facility], 1538) 32284: [facility] Treater/Techni nan ID = [id number] for Sarah Durand BASIC METABOLIC [id number] 04:40:00 Test Item Value Reference Range Interpretation [...] S NOT APPLICABLE FOR DIALYSIS PATIEN TS. [facility] Treater ID - LAWRENCE WPOCT-GLUCOSE [id number] 21:04:00 Test Item Value Reference Range Interpretation Comments POC-GLUCOSE METER 124 mg/dL 70-110 H : TESTED A T [facility] 6720 (BEAKER) (test code = [facility], 1538) 11542: [facility] Treater/Techni nan ID = [id number] for JARRED BOYD POCT-GLUCOSE [id number] 17:34:00 Test Item Value Reference Range Interpretation Comments POC-GLUCOSE METER 123 mg/dL 70-110 H : TESTED A T [facility] 6720 (BEAKER) (test code = [facility], 1538) 49175: [facility] Treater/Techni nan ID = [id number] for Lexie MARIO Vancomycin level, [id number] 15:39:00 Test Item Value Reference Range Interpretation Comments Vancomycin Tr (test code = 10.2 ug/mL 10.0-20.0 4092-3) ALANNA (test code = ALANNA) [facility] Treater ID - ADMIN Lab Interpretation (test Normal code = 94090-8) [facility] [id number] 15:39:00 Test Item Value Reference Range Interpretation Comments VANCOMYCIN TROUGH (BEAKER) (test 10.2 ug/mL 10.0-20.0 code = 522) [facility] Treater ID - ADMINPOCT-GLUCOSE [id number] 11:47:00 Test Item Value Reference Range Interpretation Comments POC-GLUCOSE METER 170 mg/dL 70-110 H : TESTED A T [facility] 6720 (BEAKER) (test code = [facility], 1538) 88564: Cone Treater/Techni nan ID = [id number] for Lexie MARIO POCT-GLUCOSE [id number] 08:03:00 Test Item Value Reference Range Interpretation Comments POC-GLUCOSE METER 134 mg/dL 70-110 H : TESTED A T [facility] 6720 (BEAKER) (test code = [facility], 1538) 02883: [facility]one Treater/Techni nan ID = [id number] for Lexie MARIO Hemoglobin [id number] 07:46:00 Test Item Value Reference Range Interpretation Comments Hemoglobin A1C (test code = 4548-4) 6.5 % 4.3-6.1 H Lab Interpretation (test code = Abnormal 83341-5) [facility]MO[facility] [id number] 07:46:00 Test Item Value Reference Range Interpretation Comments HEMOGLOBIN A1C (BEAKER) (test code = 6.5 % 4.3-6.1 H 368) [id number] 07:35:00 Test Item Value Reference Range Interpretation Comments Magnesium (test code = 2.1 mg/dL 1.6-2.6 60311-2) ALANNA (test code = ALANNA) [facility] Treater ID - BS Lab Interpretation (test Normal code = 61620-1) [facility] [id number] 07:35:00 Test Item Value Reference Range Interpretation [...] S NOT APPLICABLE FOR DIALYSIS PATIEN TS. [facility] Treater ID - [id number] 07:35:00 Test Item Value Reference Range Interpretation Comments MAGNESIUM (BEAKER) (test code = 2.1 mg/dL 1.6-2.6 627) [facility] Treater ID - BSCBC W/PLT COUNT & AUTO [id number] 05:58:00 Test Item Value Reference Range Interpretation [...] PERCENT (BEAKER) (test code = 2801) POCT-GLUCOSE [id number] 20:28:00 Test Item Value Reference Range Interpretation Comments POC-GLUCOSE METER 72 mg/dL 70-110 : TESTED A T [facility] 6720 (BEAKER) (test code = [place], 1538) 06805: Cone Treater/Techni nan ID = [id number] for Corz ine (contract), Mar y Lactic acid, venous [id number] 17:37:00 Test Item Value Reference Range Interpretation Comments Lactate, Venous (test code = 2.17 mmol/L 0.50-2.20 2871) ALANNA (test code = ALANNA) [facility] Treater ID - BS Lab Interpretation (test Normal code = 12275-9) [facility], [id number] 17:37:00 Test Item Value Reference Range Interpretation Comments LACTATE BLOOD VENOUS (2) (BEAKER) 2.17 mmol/L 0.50-2.20 (test code = 2872) [facility] Treater ID - BSRAD, FOOT, MIN 3 VIEWS, [id number] 14:49:00Reason for exam:- >left 2nd [facility]HC : 1940 Sex: MFINAL REPORT RAD, FOOT, MIN 3 VIEWS, LEFT INDICATION: left 2nd toe wound COMPARISON: None TECHNIQUE: AP and lateral oblique radiographs of the foot FINDINGS/IMPRESSION:No acute fracture. No radiopaque foreign body. Signed: Angelina Greene Verified Date/Time: 12/05/2020 14:49:31 Reading Location: [facility] Radiology Reading Room Comprehensive metabolic panel 2020-12-05 [...] Albumin (test code = 4.0 g/dL 3.5-5.0 41356-0) Alkaline Phosphatase 59 U/L 40-150 (test code = 6768-6) Total Bilirubin (test 0.6 mg/dL 0.2-1.2 code = 1975-2) Sodium (test code = 136 meq/L 816-865 6768-2) Potassium (test code 4.1 meq/L 3.5-5.1 = 2823-3) Chloride (test code = 100 meq/L 98-107 5-0) CO2 (test code = 25 meq/L -2028-02) BUN (test code = 16 mg/dL 7-21 3094-0) Creatinine (test code 1.09 mg/dL 0.57-1.25 = 2160-0) Glucose (test code = 129 mg/dL 70-105 H 2345-7) Calcium (test code = 9.1 mg/dL 8.4-10.2 99054-7) AST (test code = 16 U/L 5-34 1920-8) ALT (test code = 16 U/L 6-55 1742-6) EGFR (test code = 65 mL/min/1.73 [place] [address]-0) NOT ACCURATE CREATININE CLEARANCE IN PREDICTING GLOMERULAR FILTRATION RATE . ESTIMATED GFR I S NOT APPLICABLE FOR DIALYSIS PATIEN TS. ALANNA (test code = ALANNA) [facility] Treater ID - CHRISTINA Lab Interpretation Abnormal (test code = 40754-3) [facility] CenterCOMPREHENSIVE METABOLIC [id number] 14:45:00 Test Item Value Reference Range Interpretation [...] S NOT APPLICABLE FOR DIALYSIS PATIEN TS. [facility] Treater ID - EMERSONLACTIC ACID, [id number] 14:41:00 Test Item Value Reference Range Interpretation Comments LACTATE BLOOD VENOUS 3.18 mmol/L 0.50-2.20 H Specime n slightly (2) (LALO) (test hemolyzed code = 2872) [facility] Treater ID - [id number] 14:34:00 Test Item Value Reference Range Interpretation Comments PTT (test code = 39.1 See_Comment H [Automated message] 00476-4) The system [employer] generated this result transmitted ref erence range: 22.5 - 3 6.0 seconds. The reference range was not used to int erpret this result as normal/abnormal . Lab Interpretation (test Abnormal code = 58000-5) [facility] [id number] 14:34:00 Test Item Value Reference Range Interpretation Comments PARTIAL THROMBOPLASTIN TIME 39.1 seconds 22.5-36.0 H (LALO) (test code = 760) Prothrombin time/[id number] 14:33:00 Test Item Value Reference Interpretation Comments Range Protime (test code = 13.3 See_Comment [Autom ated 5902-2) message] The system which generated this result transmitted reference range : 11.9 - 14.2 seconds. The reference range was not used to interpret this result as normal/abnormal . INR (test code = 1.03 See_Comment [Automated 6301-6) message] The system which generated this result [...] valves. Lab Interpretation Normal (test code = 65265-5) [facility] CenterPROTHROMBIN TIME/[id number] 14:33:00 Test Item Value Reference Range Interpretation Comments PROTIME (BEAKER) 13.3 seconds 11.9-14.2 (test code = 759) INR (BEAKER) (test 1.03 See_Comment [Automat ed message] code = 370) The system [employer] generated this result transmitted ref erence range: [...] = 2801) RAD, FOOT, MIN 3 VIEWS, [id number] 14:06:00Reason for Exam:->Abscess or cellulitis of toe, [...] MDReport Verified Date/Time: 12/03/2019 14:06:27 Reading Location: [facility] ReadingRoom [address] [place] [address] CULTURE, [id number] 13:22:49 Test Item Value Reference Range Interpretation Comments CULTURE, SPECIMEN NUMBER: CULTURE, A NAEROBIC ANAEROBIC (test [id number] code = 635-3) SP ECIMEN NUMBER: [id number] SPECIMEN COMMEN T: R FOOT SOURCE: [...] ed At: [facility], [address] [place] [address] Laboratory Dire ctor: Jordan truong M.D. CLI A Number [id number] Cap Accreditati on No. [facility] CenterCULTCONNER, [id number] 16:34:04 Test Item Value Reference Range Interpretation Comments CULTURE, ROUTINE SPECIMEN A CULTURE, ROUTINE (test code = 6463-4) NUMBER: [id number] SPECIMEN NUMBER : [id number] SPECIM EN COMMENT: R FOOT SOURCE: FOOT [...] At: [facility], [address] [place] [address] Director Investor Relations: Soham Perdomo Number [id number] Cap Accreditation N o. Lab Interpretation Abnormal (test code = 73229-3) [facility], [id number] 20:45:33 Test Item Value Reference Range Interpretation Comments CULTURE, ROUTINE SPECIMEN A CULTURE, ROUTINE (test code = 6463-4) NUMBER: [id number] SPECIMEN NUMBER : [id number] SPECIM EN COMMENT: R FOOT SOURCE: OTHER [...] e Indicated, All Testing Perform ed At: [facility], [address] [place] [address] Director Investor Relations: Jordan Mijares M.D. CLIA Number [id number] Cap Accreditation N o. [id number] Lab Interpretation Abnormal (test code = 35467-4) [facility]
--- NOTE | 2021-06-18 12:11 | RAD REPORT ---
EXAM DESCRIPTION: CT - Head Brain Wo Cont - 06/18/2021 11:58 am CLINICAL HISTORY: Head injury status post fall COMPARISON: June 13, 2021 TECHNIQUE: Computed axial tomography of the head was obtained. IV contrast was not requested. All CT scans are performed using dose optimization technique as appropriate and may include automated exposure control or mA/KV adjustment according to patient size. FINDINGS: An intracranial bleed is not seen . The ventricles are normal in caliber. No extra-axial fluid collection is noted. Fluid within the sinuses/ mastoids is not seen. IMPRESSION: No acute intracranial abnormality is seen. If patient's symptoms persist MRI of the bra in would be recommended.
--- NOTE | 2021-06-18 12:16 | EDPHYS ---
Physician Documentation [facility] Name: Cole Jeffrey Age: 81 yrs Sex: Male : 1940 Arrival Date: 06/18/2021 Time: 11:45 Bed 2 Private MD: ED Physician Jerrica Stoddard HPI: 06/18 12:11 This 81 yrs old Male presents to ER via EMS with complaints of Fall Injury. jr8 12:11 Details of fall: The patient fell from an upright position, while standing. Onset: The jr8 symptoms/episode began/occurred acutely, today. Associated injuries: The patient sustained injury to the head. Severity of symptoms: At their worst the symptoms were mild, in the emergency department the symptoms have improved. It is unknown whether or not the patient has had similar symptoms in the past. The patient has not recently seen a physician. Patient stated that he tripped on curb and felt into grass. Hit front of head and nose. Caused laceration to nasal bridge from glasses. Denies LOC. Patient on blood thinners currently for atrial clot . Historical: - Allergies: 11:56 Sulfa (Sulfonamide Antibiotics); jl7 - PMHx: 11:56 Atrial fibrillation; Diabetes - NIDDM; Hyperlipidemia; Hypertension; Hypothyroidism; jl7 skin cancer; ADD/ADHD; Cellulitis; - PSHx: 11:56 Coronary artery bypass graft; jl7 - Immunization history: Last tetanus immunization: - up to date. - Social history:: Smoking status: Patient/guardian denies using tobacco. ROS: 12:11 Eyes: Negative for injury, pain, redness, and discharge. jr8 12:11 Neck: Negative for injury, pain, and swelling, Cardiovascular: Negative for chest pain, palpitations, and edema, Respiratory: Negative for shortness of breath, cough, wheezing, and pleuritic chest pain, Abdomen/GI: Negative for abdominal pain, nausea, vomiting, diarrhea, and constipation, Back: Negative for injury and pain, MS/Extremity: Negative for injury and deformity, Neuro: Negative for headache, weakness, numbness, tingling, and seizure. 12:11 ENT: Positive for injury or acute deformity, laceration. Exam: 12:11 Eyes: Pupils equal round and reactive to light, extra-ocular motions intact. Lids and jr8 lashes normal. Conjunctiva and sclera are non-icteric and not injected. Cornea within normal limits. Periorbital areas with no swelling, redness, or edema. ENT: Nares patent. No nasal discharge, no septal abnormalities noted. Tympanic membranes are normal and external auditory canals are clear. Oropharynx with no redness, swelling, or masses, exudates, or evidence of obstruction, uvula midline. Mucous membranes moist. Neck: Trachea midline, no thyromegaly or masses palpated, and no cervical lymphadenopathy. Supple, full range of motion without nuchal rigidity, or vertebral point tenderness. No Meningismus. Chest/axilla: Normal chest wall appearance and motion. Nontender with no deformity. No lesions are appreciated. Cardiovascular: Regular rate and rhythm with a normal S1 and S2. No gallops, murmurs, or rubs. Normal PMI, no JVD. No pulse deficits. Respiratory: Lungs have equal breath sounds bilaterally, clear to auscultation and percussion. No rales, rhonchi or wheezes noted. No increased work of breathing, no retractions or nasal flaring. Abdomen/GI: Soft, non-tender, with normal bowel sounds. No distension or tympany. No guarding or rebound. No evidence of tenderness throughout. Back: No spinal tenderness. No costovertebral tenderness. Full range of motion. Skin: Warm, dry with normal turgor. Normal color with no rashes, no lesions, and no evidence of cellulitis. MS/ Extremity: Pulses equal, no cyanosis. Neurovascular intact. Full, normal range of motion. Neuro: Awake and alert, GCS 15, oriented to person, place, time, and situation. Cranial nerves II-XII grossly intact. Motor strength 5/5 in all extremities. Sensory grossly intact. 12:11 Head/face: Noted is superficial laceration noted to nasal bridge. Bleeding controlled . Vital Signs: 11:46 BP 130 / 79; Pulse 77; Resp 17; Temp 97.8(TE); Pulse Ox 98% on R/A; Weight 113.4 kg; jl7 Height 6 ft. 0 in. (182.88 cm); Pain 2/10; 12:30 BP 108 / 71; Pulse 76; Resp 15; Pulse Ox 97% on R/A; jl7 11:46 Body Mass Index 33.91 (113.40 kg, 182.88 cm) jl7 Jefry Coma Score: 11:46 Eye Response: spontaneous(4). Verbal Response: oriented(5). Motor Response: obeys jl7 commands(6). Total: 15. 12:30 Eye Response: spontaneous(4). Verbal Response: oriented(5). Motor Response: obeys jl7 commands(6). Total: 15. Trauma Score (Adult): 11:46 Eye Response: spontaneous(1); Verbal Response: oriented(1); Motor Response: obeys jl7 commands(2); Systolic BP: > 89 mm Hg(4); Respiratory Rate: 10 to 29 per min(4); Jefry Score: 15; Trauma Score: 12 MDM: 11:46 Patient medically screened. jr8 12:15 Data reviewed: vital signs, nurses notes, radiologic studies, CT scan. Data jr8 interpreted: Pulse oximetry: on room air is 98 %. Interpretation: normal. Counseling: I had a detailed discussion with the patient and/or guardian regarding: the historical points, exam findings, and any diagnostic results supporting the discharge/admit diagnosis, radiology results, the need for outpatient follow up, a family practitioner, to return to the emergency department if symptoms worsen or persist or if there are any questions or concerns that arise at home. 06/18 11:54 Order name: CT Head Brain wo Cont; Complete Time: 12:15 jr8 Administered Medications: No medications were administered Disposition: 17:05 Co-signature as Attending Physician, Jerrica Stoddard MD. ma2 Disposition Summary: 06/18/21 12:16 Discharge Ordered Location: Home jr8 Problem: new jr8 Symptoms: have improved jr8 Condition: Stable jr8 Diagnosis - Laceration without foreign body of nose jr8 Followup: jr8 - With: Private Physician - When: 2 - 3 days - Reason: Recheck today's complaints, Continuance of care, Re-evaluation by your physician Discharge Instructions: - Discharge Summary Sheet jr8 - Facial Laceration jr8 Forms: - Medication Reconciliation Form jr8 - Thank You Letter jr8 - Antibiotic Education jr8 - Prescription Opioid Use jr8 Signatures: Dispatcher [employer] EDMS Devante Morley PA PA jr8 Jose Juan Martins RN RN [email or web address] Jerrica Stoddard MD MD ma2
--- NOTE | 2021-06-18 12:16 | ER ---
Nurse's Notes [facility] Name: Cole Jeffrey Age: 81 yrs Sex: Male : 1940 Arrival Date: 06/18/2021 Time: 11:45 Bed 2 Private MD: Diagnosis: Laceration without foreign body of nose Presentation: 06/18 11:46 Chief complaint: EMS states: Pt tripped and fell in the grass, face hit the ground, did jl7 not loose consciousness, cut noted to bridge of nose, pt reports his glasses broke and it may have cut his nose but unsure. Care prior to arrival: None. Mechanism of Injury: Fall from standing position. Trauma event details: Injury occurred in the [facility], Injury occurred: at home. Injury occurred: June 18, 2021 Injury occurred at: 11:00. 11:46 Acuity: JOSE F 2 jl7 11:46 Method Of Arrival: EMS: [facility] jl7 11:54 Coronavirus screen: Vaccine status: Patient reports receiving the 2nd dose of the covid jl7 vaccine. Client presents with at least one sign or symptom that may indicate coronavirus-19. Standard/surgical mask placed on the client. Provider contacted for isolation considerations. Client reports previous positive COVID test result. results are located within the EHR/EMR. Ebola Screen: No symptoms or risks identified at this time. Initial Sepsis Screen: Does the patient meet any 2 criteria? No. Patient's initial sepsis screen is negative. Does the patient have a suspected source of infection? No. Patient's initial sepsis screen is negative. Risk Assessment: Do you want to hurt yourself or someone else? Patient reports no desire to harm self or others. Onset of symptoms was June 18, 2021 at 11:00. Transition of care: patient was not received from another setting of care. 11:57 Note Pt reports he does take a blood thinner but unsure which one. jl7 Trauma Activation: Alert Physician: ED Physician; Name: Peyman; Notified At: ; Arrived At: Physician: General Surgeon; Name: ; Notified At: ; Arrived At: Physician: Radiology; Name: Mallika; Notified At: ; Arrived At: Physician: Respiratory; Name: ; Notified At: ; Arrived At: Physician: Lab; Name: ; Notified At: ; Arrived At: Historical: - Allergies: 11:56 Sulfa (Sulfonamide Antibiotics); jl7 - PMHx: 11:56 Atrial fibrillation; Diabetes - NIDDM; Hyperlipidemia; Hypertension; Hypothyroidism; jl7 skin cancer; ADD/ADHD; Cellulitis; - PSHx: 11:56 Coronary artery bypass graft; jl7 - Immunization history: Last tetanus immunization: - up to date. - Social history:: Smoking status: Patient/guardian denies using tobacco. Screenin:46 Abuse screen: Denies threats or abuse. Denies injuries from another. Tuberculosis jl7 screening: No symptoms or risk factors identified. 11:46 Nutritional screening: No deficits noted. Fall Risk Fall in past 12 months (25 points). jl7 Total Novoa Fall Scale indicates Low Risk Score (25-44 pts). Fall prevention measures have been instituted. Side Rails Up X 2 Placed close to Nursing Station Frequent Obs/Assesments occuring As available Patient and Family Educated on Fall Prevention Program and strategies. Primary Survey: 11:46 NO uncontrolled hemorrhage observed. Breathing/Chest: Respiratory pattern: regular, jl7 Respiratory effort: spontaneous, unlabored, Breath sounds: clear, bilaterally. Chest inspection: symmetrical rise and fall of the chest. Circulation: Pulses: palpable right radial artery and left radial artery. Skin color: pink, Skin temperature: warm. Disability Alert. Exposure/Environment: There is no evidence of uncontrolled external bleeding. Obvious injury(ies) are noted at this time: lac to bridge of nose A warming method has been applied: A warm blanket has been provided to the patient. 12:15 Reassessment Breathing/Chest Respiratory pattern Regular Respiratory effort Spontaneous jl7 Unlabored Chest inspection Symmetrical. Assessment: 11:46 General: Appears in no apparent distress. uncomfortable, Behavior is calm, cooperative, jl7 appropriate for age. Pain: Complains of pain in bridge of nose Pain currently is 2 out of 10 on a pain scale. Neuro: Level of Consciousness is awake, alert, obeys commands, Oriented to person, place, time, situation. EENT: Nares are clear bilaterally. Cardiovascular: Patient's skin is warm and dry. Respiratory: Airway is patent Respiratory effort is even, unlabored, Respiratory pattern is regular, symmetrical. Derm: Skin is pink, warm \T\ dry. Injury Description: Laceration sustained to bridge of nose. Vital Signs: 11:46 BP 130 / 79; Pulse 77; Resp 17; Temp 97.8(TE); Pulse Ox 98% on R/A; Weight 113.4 kg; jl7 Height 6 ft. 0 in. (182.88 cm); Pain 2/10; 12:30 BP 108 / 71; Pulse 76; Resp 15; Pulse Ox 97% on R/A; jl7 11:46 Body Mass Index 33.91 (113.40 kg, 182.88 cm) jl7 Jefry Coma Score: 11:46 Eye Response: spontaneous(4). Verbal Response: oriented(5). Motor Response: obeys jl7 commands(6). Total: 15. 12:30 Eye Response: spontaneous(4). Verbal Response: oriented(5). Motor Response: obeys jl7 commands(6). Total: 15. Trauma Score (Adult): 11:46 Eye Response: spontaneous(1); Verbal Response: oriented(1); Motor Response: obeys jl7 commands(2); Systolic BP: > 89 mm Hg(4); Respiratory Rate: 10 to 29 per min(4); Jefry Score: 15; Trauma Score: 12 ED Course: 11:45 Patient arrived in ED. jl7 11:46 Devante Morley PA is PHCP. jr8 11:46 Jerrica Stoddard MD is Attending Physician. jr8 11:46 Patient has correct armband on for positive identification. Bed in low position. Call jl7 light in reach. Side rails up X 1. 11:46 Pulse ox on. NIBP on. jl7 11:46 Patient maintains SpO2 saturation greater than 95% on room air. Thermoregulation: warm jl7 blanket given to patient. 11:50 Triage completed. jl7 11:56 Arm band placed on right wrist. jl7 11:58 CT Head Brain wo Cont In Process Unspecified. EDMS 12:01 Jose Juan Martins RN is Primary Nurse. jl7 12:46 No provider procedures requiring assistance completed. Patient did not have IV access ss during this emergency room visit. Administered Medications: No medications were administered Intake: 12:30 PO: 0ml; IV: 0ml; Tubes: 0ml (); Total: 0ml. jl7 Output: 12:30 Urine: 0ml; Gastric: 0ml; Stool: 0; EBL: 0ml; Drainage: 0ml; Other: 0; Total: 0ml. jl7 Outcome: 12:16 Discharge ordered by . priscilla 12:30 Patient's length of stay was not longer than 2 hours. jl7 12:46 Discharged to home ambulatory. ss 12:46 Condition: good 12:46 Discharge instructions given to patient, Instructed on discharge instructions, follow up and referral plans. Demonstrated understanding of instructions, follow-up care. 12:46 Patient left the ED. ss Signatures: Dispatcher [employer] EDMS Crystal Canseco RN RN Devante Vail PA PA jr8 Jose Juan Martins RN RN jl7
== END 2021-06-18 12:46 | disposition home or self-care (01) ==
LOC: ER 11:47
DX: S01.21XA Laceration without foreign body of nose, initial encounter (principal); W01.198A Fall on same level from slipping, tripping and stumbling with subsequent striking against other object, initial encounter; Y92.9 Unspecified place or not applicable; I10 Essential (primary) hypertension; Z95.1 Presence of aortocoronary bypass graft; Z88.2 Allergy status to sulfonamides
CPT/HCPCS: 70450; 99284

== ENCOUNTER 2023-04-03 13:02 | Emergency (ER) | payer OTHER, MEDICARE ==
--- OUTSIDE RECORDS SUMMARY | 2023-04-03 13:05 | XMS REPORT | Clinical Summary ---
:[address] [facility] MD [facility] Address [address] [place] [address] Care Team Providers Name Role Phone Yadi Childs MD Primary Care Provider Keysha Felix MD Unavailable Damir Lucero MD Unavailable Kwame Santiago MD Unavailable Aminah Zuniga MD Unavailable Allergies No known active allergies [...] mouth daily. 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 disease 05/19/2016 Basal cell carcinoma of skin of right ear 05/12/2016 Sensorineural hearing loss, bilateral 05/12/2016 Asymmetrical sensorineural hearing loss 05/12/2016 Morbid (severe) obesity due to excess calories 05/03/2016 Essential (primary) hypertension 05/03/2016 Diabetes mellitus due to underlying condition with 6 complication Hypothyroidism 05/03/2016 Hyperlipidemia 05/03/2016 Alcohol use disorder, [...] Overview: eack knee has total knee replacements Surgical History Surgery Date Site/Laterality Comments MOHS PROCEDURE 05/21/2013 Left left helix and l eft arm MOHS PROCEDURE 05/28/2013 Right right helix COLONOSCOPY 06/13/2013 - about 2 years ag o 06/12/2014 TOTAL KNEE ARTHROPLASTY 06/13/2011 - Right 06/12/2012 TOTAL KNEE ARTHROPLASTY 06/13/2013 - Left 06/12/2014 MD EXCISION MALIGNANT 05/13/2016 Right Procedure: wide local, LESION F/E/E/N/L 0.5 CM/< Right auricle; Surgeon: Kwame Santiago MD; Location: [facility]; Service: - AD & NECK SURGERY MD SPLIT AGRFT T/A/L 1ST 05/13/2016 Right Procedu re: SPLIT 100 CM/&/1% BDY INFT/CHLD THICKN ESS SKIN GRAFT OF TRUNK/ARM OR LEG ; Surgeon: Kwame ctoto MD; Location: [facility] [place]; Service: [facility] - HE AD & NECK SURGERY Medical History Medical History [...] broken arm, ribs 196 6 broken ribs 1977 Arthritis 1999 from injuries and ol d age Presence of other specified device 2013 eack knee has total knee replacements Disorder of thyroid gland 2013 take thyroid r x Diabetes mellitus 1994 take meds but not on insulin Sensorineural hearing loss, bilateral 05/12/2016 Open skull fracture without slip and fal l intracranial injury Family History Medical History Relation Name Comments Coronary heart disease (CHD) Father Heart disease Father -Breast cancer Mother Delfin Paul from [facility] Relation Name Status Comments Father Mother Delfin Paul Social History Tobacco Use Types Packs/Day Years Used Date Smoking Tobacco: Former Cigarettes 29 09/1959 - 04/23/1987 Smokeless Tobacco: Never Tobacco Cessation: Ready to Quit: No Comments: already quit 29 years ago Alcohol Use Standard Drinks/Week Comments Yes 0 (1 standard drink = 0.6 oz pure alcoho l) Sex and Gender Information Value Date Recorded Sex Assigned at Not on file Gender Identity Not on file Sexual Orientation Not on file Obstetrics History Last Filed Vital Signs Not on file Plan of Treatment Health Maintenance Due Date Last Done Comments COVID-19 Vaccination (#1) 1940 Results Not on fileafter 04/03/2022 Insurance Payer Benefit Plan Subscriber ID Effective Phone Address Typ e / Group Dates MEDICARE MEDICARE PART [id number] 2003-Pres [phone] [place] Medicare A AND B ent [id number] [employer] [facility] [place] [address] [employer] AAR-SECONDAR [id number] 1992-Pres [address] [employer] ONLY ent [id number] [place] [address] Advance Directives Type Date Recorded 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 Explanati on Advance Directives: 05/14/2016 Directive to Physicians Living Will and Family or Surrogates-Jeanettein kathi Will Advance Directives: 05/14/2016 Medical Sinan r of Electroneurodiagnostic Technologist Medical Power of Electroneurodiagnostic Technologist Code Status Date Activated Date Inactivated Comments Full Code 05/13/2016 1:54 PM 05/13/2016 9:10 PM Care Teams Correctional Treatment Specialist Relationship Specialty Start Date End Date Yadi Childs MD PCP - General Head and Neck Surgery 04/23/15 [address] [place] [id number] Keysha Felix MD PCP - External Dermatology 04/23/[address] [place] [phone] Damir Lcuero PCP - External Primary Family Practice 04/26/16 MD Anthony Care Provider [address] [place] [phone] Kwame Santiago MD Consulting Physician Head and Neck Surgery 05/12/[address] [place] [address] [phone] Aminah Zuniga, Consulting Physician Internal Medicine 05/03/[address] [place] [address] [phone]
--- OUTSIDE RECORDS SUMMARY | 2023-04-03 13:15 | XMS REPORT | Continuity of Care Document ---
:1940 Author Organization [place] [facility] t Address [address] [facility] [address] [place] [id number] Care Team Providers Name Role Phone Yadi Childs MD Primary Care Physician Silverio Cope Attending Clinician Unavailable January Mccollum Attending Clinician Unavailable FRANSISCO MARTINEZ Attending Clinician Unavailable SIERRA COPELAND Attending Clinician Unavailable Sierra Copeland DO Attending Clinician Ruiz Bhatti Attending Clinician Unavailable Noni Marquez Cardiology Attending Clinician Unavailable CARISSA BACON Attending Clinician Unavailable Jordi BOWLING BALL FINISHERCarissa Navarro Attending Clinician Unknown, Attending Attending Clinician Unavailable Bawendy_Jarrell Attending Clinician Unavailable JOVAN TINOCO Attending Clinician Unavailable Jovan Tinoco DO Attending Clinician Danifouzia_T Attending Clinician Unavailable Sandy Cummings DO Attending Clinician MICHAEL BARBOUR Attending Clinician Unavailable Nurse, [facility] Attending Clinician Unavailable Michael Sanchez Attending Clinician Andreina Hernandez Attending Clinician [phone] Kojo PEARSON, Tammy Attending Clinician TAMMY CHINCHILLA Attending Clinician Unavailable Doctor Unassigned, [place] Attending Clinician Unavailable ELLIOTT GOMEZ Attending Clinician Unavailable lEliott Franklin Attending Clinician Ludwig Browne Attending Clinician [phone] Marcello Garvin Attending Clinician Unavailable Rafal Marquez Attending Clinician Unavailable Radha Haas Attending Clinician Unavailable Sandy Rivera MD Attending Clinician SANDY RIVERA Attending Clinician Unavailable Mann Gama MD Attending Clinician Fransisco Martinez DPM Attending Clinician Germán Beebe MD Attending Clinician Ricardo Hightower DO Attending Clinician Marilyn Costa MD Attending Clinician [phone] Ellis Abrams MD Attending Clinician Madiha Méndez MD Attending Clinician Min QUINTERO, Benitez Attending Clinician KAVYA RODRIGUEZ Attending Clinician Unavailable Lobo Marin Attending Clinician Unavailable Noni Marquez Admitting Clinician Unavailable FRANSISCO MARTINEZ Admitting Clinician Unavailable Ruiz Bhatti Admitting Clinician Unavailable BaVirgilio Admitting Clinician Unavailable JOVAN TINOCO Admitting Clinician Unavailable Kary Admitting Clinician Unavailable Marcello Garvin Admitting Clinician Unavailable Rafal Marquez Admitting Clinician Unavailable Radha Haas Admitting Clinician Unavailable MARILYN COSTA Admitting Clinician Unavailable Lobo Marin Admitting Clinician Unavailable Payers Payer Name Policy Type Policy Number Effective Date Expiration Date S cheyanne MEDICARE A B [id number] 2003 00:00:00 [facility] [id number] 2020 HEALTHCARE 00:00:00 MEDICARE PART A \\T\\ [id number] 2003 B 00:00:00 [facility] [id number] 2017 MEDICARE SUPPLEMENT 00:00:00 MEDICARE B-[place]: [id number] 2003 [place] SOLUTIONS 00:00:00 [facility] [id number] 2017 OPTIONS (MEDICARE 00:00:00 SUPPLEMENT) Problems Condition Condition Condition Status Onset Resolution Last Treating Co mments Source Name Details Category Date Date Treatment Clinician Date Hypothyroi Hypothyroi Problem Active [facility] dism dism 5-20 Family 00:00: Practic 00 e Hypertensi Hypertensi Problem Active [facility] ve ve 5-20 Family disorder Disorder 00:00: Practi c 00 e Edema of Edema of Problem Active [facility] lower Lower 2-23 Family extremity Extremity 00:00: Prac tic 00 e History of History of Problem Active [place] amputation Amputation 2-23 Fa jus of part of of Part of 00:00: Pr actic toe of Toe of 00 e left foot Left Foot Coronary Coronary Problem Active Tom ge atheroscle Atheroscle 2-23 Fa jus rosis rosis 00:00: Practic 00 e Cardiac Cardiac Problem Active [place] arrhythmia Arrhythmia 2-23 Fa jus 00:00: Practic 00 e Diabetic Diabetic Disease Recurre [facility] foot foot nce 6[facility]25 [facility] infection infection 00:[facility] Bilateral Bilateral Disease Active Uni vers impacted impacted 2 ity of cerumen cerumen 00:00: [place] 00 [facility] Basal cell Basal cell Disease Active U ki carcinoma carcinoma 2-01 ity of of skin [place] left ear left ear 00 external external n auricular 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 Meniere 00:00: [place] disease disease 00 [facility] Basal cell Basal cell Disease Active 2015-06 U ki carcinoma carcinoma 1-30 ity of of skin of of [place] right ear right ear 00 MD [facility] 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 00:00: [place] loss, loss, 00 bilateral bilateral Faheem rso [facility] 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 Anderso loss loss [facility] 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 (severe) (severe) 07-03 ity of obesity obesity 00:00: [place] due to due to 00 excess excess Andsammieo calories calories [facility] Essential Essential Disease Active 2015-06 Uni vers (primary) (primary) 07-03 ity of hypertensi hypertensi 00:[place] 00 [place] [facility] Diabetes Diabetes Disease Active 2015-06 Unive rs mellitus mellitus 07-03 ity of due to due to 00:00: [place] underlying underlying 00 condition condition Faheem rso with with n complicati complicati Ca ncer on on Center Hypothyroi Hypothyroi Disease Active 2015-06 U ki dism dism 07-03 ity of 00:00: [place] 00 MD [email or web address] Center Hyperlipid Hyperlipid Disease Active 2015-06 U ki emia emia 07-03 ity of 00:00: [place] 00 MD Shad [facility] Alcohol Alcohol Disease Active 2015-06 Univers use use 07-03 ity of disorder, disorder, 00:[place] mild mild 00 [facility] Acute Acute Problem Active [place] cystitis Cystitis 4-04 [facility] 00:00: Urology 00 Large Large Problem Active [place] prostate Prostate 4-04 [facility] 00:00: Urology 00 Infectious Infectious Disease Active Overview : Univers disease disease 06-13 Formattin ity o f 00:00: g of this note might be Anderso different n from the Cancer original. 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 Center right helix Arthritis Arthritis Disease Active Overview: Univers 06-13 Formattin ity of 00:00: g of this [place] note might be Anderso different n from the Cancer original. Center from injuries and old age Asbestosis Asbestosis Disease Active U nivers 06-13 ity of 00:00: [place] 00 [facility] Diabetes Diabetes Disease Active Overview: Un phong mellitus mellitus 06-13 Formattin ity of 00:00: g of this note might be Anderso different n from the Cancer original. Center take meds but not on insulin Hypertensi Hypertensi Disease Active U nivers on on 06-13 ity of 00:00: [place] 00 [facility] Pneumonia Pneumonia Disease Active Uni vers 06-13 ity of 00:00: [place] 00 [facility] No known No known Disease Unive rs active active ity of problems problems [facility] [id number] Other Problem Common obesity Spirit due to - CHI excess [facility] [id number] Iron Problem Common deficiency Spirit anemia, - CHI unspecifie [facility] iron [facility] deficiency Medica l anemia Center type [id number] Body mass Problem Com mon index Spirit [BMI] - CHI 32.0-32.9, [facility] [id number] Paroxysmal Problem Co mmon atrial Spirit fibrillati - [facility] on [facility] [id number] Mixed Problem Common hyperlipid Spirit emia - [facility] [id number] Amputation 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 - [facility] [id number] Long-term Problem Com mon (current) Spirit use of - [facility] anticoagul [facility] ants, [place] goal Medical 2.0-3.0 Center [id number] Benign Problem Common prostatic Spirit hyperplasi - CHI a with [facility] urinary Medical tract Center symptoms, symptom details unspecifie d [id number] Hypothyroi Problem Co mmon dism Spirit (acquired) - [facility] [id number] Essential Problem Comm on (primary) Spirit hypertensi - 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 [id number] Squamous Problem Comm on cell Spirit carcinoma - [facility] of scalp [facility] [id number] Cardiac Problem Commo n defibrilla Spirit tor in - [facility] [id number] Leukocytos Problem Co mmon is, Spirit unspecifie - [facility]I d type [facility] Open skull Open skull Disease Active Overview : Univers fracture fracture Formattin ity of without without g of this [place] intracrani intracrani note al injury al injury might be An derso different n from the Cancer original. Center slip and fall Presence Presence Disease Active Overview: Un phong of other of other Formattin ity of specified specified g of this [place] device device note might be Anderso different n from the Cancer original. Center eac knee has total knee replaceme nts Allergies, Adverse Reactions, Alerts Allergy Allergy Status Severity Reaction(s) Onset Inactive Treating Comm ents Source Name Type Date Date Clinician EMPAGLIF DRUG Active Rash Univers LOZIN INGREDI 3-15 ity of 00:00: [place] 00 Medical Branch Empaglif Propensi Active Rash Univer s lozin ty to 3-15 ity of adverse 00:00: [place] reaction 00 Medical s Branch Sulfa DA Active U ITCHING 2020-06 [facility] (Sulfona 0-28 [place] mide 00:00: d Antibiot Medical ics) Center canaglif DA Active U [place]CH[place] 2020-06 [facility] lozin 0-28 [place] 00:00: Medical Center Sulfa DA Active U 2020-06 [facility] (Sulfona 0-28 [place] mide 00:00: [place] Antibio Medical ics) Center canaglif DA Active U 2020-06 [facility] lozin 0-28 [place] 00:00: [address] Sulfa DA Active U 2020-06 [facility] (Sulfona 0-16 [place] mide 00:00: [place] Antibio Medical ics) Center canaglif DA Active U 2020-06 [facility] lozin 0-16 [place] 00:00: [address] Sulfa DA Active U ITCHING 2020-06 [facility] (Sulfona 0-16 [place] mide 00:00: [place] Antibio Medical ics) Center canaglif DA Active U ITCHING 2020-06 [facility] lozin 0-16 [place] 00:00: [address] SULFA Drug Active Med Hives 2018- Univers (SULFONA Class 1-18 ity of MIDE 00:00: [place] ANTIBIOT 00 Medical ICS) Branch Sulfa Propensi Active Hives 2018- Univers (Sulfona ty to 1-18 ity of mide adverse 00:00: [place] Antibiot reaction 00 Medica l ics) s Branch Sulfa Propensi Active Hives 2018- Univers (Sulfona ty to 1-18 ity of mide adverse 00:00: [place] Antibiot reaction 00 Medica l ics) s Branch canaglif DA Active U [facility] lozin 9 [place] 00:00: [address] canaglif DA Active U ITCHING [facility] lozin 9 [place] 00:00: [address] Jardianc Allergy Active Severe Hives [place] e to Family substanc Practic e e NO KNOWN Allergy Active [facility] Substanc Substanc Active Unknown Commo n e with e with Spirit sulfonam sulfonam - [facility] structur structur [facility] antibact antibact Center erial erial mechanis mechanis m of m of action action (substan (substan ce) ce) Family History Family Member Diagnosis Comments Start Date Stop Date Source Natural father Coronary heart [facility] disease (CHD) MD [facility] Natural father [facility] [place] [facility] [place] Natural father Heart attack [facility] Natural mother Breast cancer [facility] Social History Social Habit Start Date Stop Date Quantity Comments Source Gender identity Universit y of [facility] History of Tobacco Common Spirit - Use [facility] History SDOH [facility] Alcohol Comment Medical C enter Sexual orientation [facility] Johnnie [facility] Exposure to 2022-08-16 2022-08-26 Not sure University of SARS-CoV-2 (event) 00:00:00 10:12:00 [facility] History of Social 2021-09-05 2021-09-05 Univers ity of function 00:00:00 00:00:00 [facility] Tobacco use and 2021-08-25 2021-08-25 Smokeless Universit y of exposure 00:00:00 00:00:00 tobacco non-user [facility] Alcohol intake 2021-01-20 2021-01-20 [facility] alcohol Medical Center (finding) History [facility] 2020-12-05 2020-12-[address] [facility] Alcohol Frequency 00:00:00 00:00:00 Medical Center History SDOH 2020-12-05 2020-12-[address] [facility] Alcohol Std Drinks 00:00:00 00:00:00 Medica l Center History [facility] 2020-12-05 2020-12-[address] [facility] Alcohol Binge 00:00:00 00:00:[address] Cigarettes smoked 2020-12-05 2020-12-[address] [facility] current (pack per 00:00:00 00:00:00 Medical Center day) - Reported Cigarette 2020-12-05 2020-12-[address] [facility] pack-years 00:00:00 00:00:00 Medical Center Tobacco Comment 2016-04-27 2016-04-27 already quit 29 Univ ersity of 00:00:00 00:00:00 years ago [facility] Sex Assigned At [birth year] Universit y of 00:00:00 00:00:00 [facility] Smoking Status Start Date Stop Date Source Former Smoker 2023-03-10 00:00:00 2023-03-10 00:00:00 Common S pirit - [facility] Ce nter Never smoked tobacco [facility] Medications Ordered Filled Start Stop Current Ordering Indication Dosage Frequency Signature Comments Components Source Medication Medication Date Date Medication? Clinician (SIG) Name Name Metoprolol Metoprolol No 1{capsu QD Metoprolol Succinate Succinate 10-21 le} Succinate 25 MG 25 MG 00:00: 25 MG 00 Magnesium Magnesium No Magnesium 511 00:00: 00 Daily Daily No Daily Vitamin Vitamin 5-11 Vitamin 00:00: 00 amLODIPine Yes 1 tablet Uni vers 2.5 mg 3-16 ity of tablet 10:21: [address] simvastatin Yes simvastati Univers 20 mg 3-16 n 20 mg ity of tablet 10:21: tablet one [address] amLODIPine Yes 1 tablet Uni vers 2.5 mg 3-16 ity of tablet 10:21: [address] simvastatin Yes simvastati Univers 20 mg 3-16 n 20 mg ity of tablet 10:21: tablet one [address] cefdinir 2022- No [id number] 300mg Take 1 U nivers 300 mg 3-16 03-27 capsule by ity of capsule 00:00: 04:59 mouth [place] 00 :00 every 12 Medical ([facility] Branch hours for 10 days. Azithromyci Azithromyci 2021-06- No QD Azithromyc n 250 MG n 250 MG 0-19 10-24 in 250 MG 00:00: 00:00 00 :00 Azithromyci Azithromyci 2021-06- No QD Azithromyc n 250 MG n 250 MG 0-19 10-24 in 250 MG 00:00: 00:00 00 :00 benzonatate 2021-06 Yes [id number] 100mg Take 1 Univers 100 mg 0-13 capsule by ity of capsule 00:00: mouth [address] [place] [address] (three) Medical times [place] daily as needed for Cough. fluticasone 2021-06 Yes [id number] 2{spray Use 2 Univers 27.5 0-13 } Sprays in ity of mcg/actuati 00:00: each [place] on nasal 00 nostril in Medic al spray the Branch morning. benzonatate 2021-06 Yes [id number] 100mg Take 1 Univers 100 mg 0-13 capsule by ity of capsule 00:00: mouth 3 [place] 00 (three) Medical times [place] daily as needed for Cough. fluticasone 2021-06 Yes [id number] 2{spray Use 2 Univers 27.5 0-13 } Sprays in ity of mcg/actuati 00:00: each [place] on nasal 00 nostril in Medic al spray the Branch morning. benzonatate 2021-06 Yes [id number] 100mg Take 1 Univers 100 mg 0-13 capsule by ity of capsule 00:00: mouth 3 [place] [address] (three) Medical times [place] daily as needed for Cough. fluticasone 2021-06 Yes [id number] 2{spray Use 2 Univers 27.5 0-13 } Sprays in ity of mcg/actuati 00:00: each [place] on nasal 00 nostril in Medic al spray the Branch morning. phytonadion 2021- No 2.5mg 2.5 mg, U nivers e (vitamin 02-24-14 Oral, ity of K1) 04:00: 15:59 ONCE, 1 [place] ([place]) 00 :00 dose, On Medic al tablet 2.5 Tue Branch mg 02/23/22 at 2300, Routine amLODIPine Yes 1 tablet Uni vers 2.5 mg 8-29 ity of tablet 17:29: [address] amLODIPine 0 Yes 1 tablet Uni vers 2.5 mg 8-29 ity of tablet 17:29: [address] amLODIPine 2021-0 Yes 1 tablet Uni vers 2.5 mg 8-29 ity of tablet 17:29: [address] amLODIPine Yes 1 tablet Uni vers 2.5 mg 8-29 ity of tablet 17:29: [address] amLODIPine Yes 1 tablet Uni vers 2.5 mg 02-08 ity of tablet 17:29: [address] cefdinir 2021- No [id number] 300mg Take 1 U nivers 300 mg 02-08 capsule by ity of capsule 00:00: 04:59 mouth in [place] 00 :00 the [facility] Branch and 1 capsule in the evening. Do all this for 10 days. losartan Yes losartan Unive rs 100 mg 4-10 100 mg ity of tablet 16:46: tablet [address] aspirin 325 Yes 325mg Take 325 U nivers mg tablet 4-10 mg by ity of 16:46: mouth. [address] losartan Yes losartan Unive rs 100 mg 4-10 100 mg ity of tablet 16:46: tablet [address] aspirin 325 Yes 325mg Take 325 U nivers mg tablet 4-10 mg by ity of 16:46: mouth. [address] losartan Yes losartan Unive rs 100 mg 4-10 100 mg ity of tablet 16:46: tablet [address] aspirin 325 0 Yes 325mg Take 325 U nivers mg tablet 4-10 mg by ity of 16:46: mouth. [address] losartan Yes losartan Unive rs 100 mg 4-10 100 mg ity of tablet 16:46: tablet [address] aspirin 325 0 Yes 325mg Take 325 U nivers mg tablet 4-10 mg by ity of 16:46: mouth. [address] losartan Yes losartan Unive rs 100 mg 4-10 100 mg ity of tablet 16:46: tablet [address] aspirin 325 0 Yes 325mg Take 325 U nivers mg tablet 4-10 mg by ity of 16:46: mouth. [address] losartan Yes losartan Unive rs 100 mg 4-10 100 mg ity of tablet 16:46: tablet [address] aspirin 325 0 Yes 325mg Take 325 U nivers mg tablet 4-10 mg by ity of 16:46: mouth. [address] losartan Yes losartan Unive rs 100 mg 4-10 100 mg ity of tablet 16:46: tablet [address] aspirin 325 Yes 325mg Take 325 U nivers mg tablet 4-10 mg by ity of 16:46: mouth. [address] losartan Yes losartan Unive rs 100 mg 4-10 100 mg ity of tablet 16:46: tablet [address] aspirin 325 Yes 325mg Take 325 U nivers mg tablet 4-10 mg by ity of 16:46: mouth. [address] losartan Yes losartan Unive rs 100 mg 4-10 100 mg ity of tablet 16:46: tablet [address] aspirin 325 Yes 325mg Take 325 U nivers mg tablet 4-10 mg by ity of 16:46: mouth. [address] losartan Yes losartan Unive rs 100 mg 4-10 100 mg ity of tablet 16:46: tablet [address] aspirin 325 Yes 325mg Take 325 U nivers mg tablet 4-10 mg by ity of 16:46: mouth. [address] furosemide Yes furosemide U nivers 40 mg 4-10 40 mg ity of tablet 16:45: tablet [address] furosemide Yes furosemide U nivers 40 mg 4-10 40 mg ity of tablet 16:45: tablet [address] furosemide Yes furosemide U nivers 40 mg 4-10 40 mg ity of tablet 16:45: tablet [address] furosemide Yes furosemide U nivers 40 mg 4-10 40 mg ity of tablet 16:45: tablet [address] furosemide Yes furosemide U nivers 40 mg 4-10 40 mg ity of tablet 16:45: tablet [address] furosemide Yes furosemide U nivers 40 mg 4-10 40 mg ity of tablet 16:45: tablet [address] furosemide Yes furosemide U nivers 40 mg 4-10 40 mg ity of tablet 16:45: tablet [address] furosemide Yes furosemide U nivers 40 mg 4-10 40 mg ity of tablet 16:45: tablet [address] furosemide 2022-0 Yes furosemide U nivers 40 mg 4-10 40 mg ity of tablet 16:45: tablet [place] 16 Medical Branch furosemide Yes furosemide U nivers 40 mg 4-10 40 mg ity of tablet 16:45: tablet [place] 16 Medical Branch SITagliptin Yes Januvia Uni vers (JANUVIA) 4-10 100 mg ity of 100 mg 16:43: tablet [place] tablet 45 Medical Branch SITagliptin Yes Januvia Uni vers (JANUVIA) 4-10 100 mg ity of 100 mg 16:43: tablet [place] tablet 45 Medical Branch SITagliptin Yes Januvia Uni vers (JANUVIA) 4-10 100 mg ity of 100 mg 16:43: tablet [place] tablet 45 Medical Branch SITagliptin Yes Januvia Uni vers (JANUVIA) 4-10 100 mg ity of 100 mg 16:43: tablet [place] tablet 45 Medical Branch SITagliptin Yes Januvia Uni vers (JANUVIA) 4-10 100 mg ity of 100 mg 16:43: tablet [place] tablet 45 Medical Branch SITagliptin Yes Januvia Uni vers (JANUVIA) 4-10 100 mg ity of 100 mg 16:43: tablet [place] tablet 45 Medical Branch SITagliptin Yes Januvia Uni vers (JANUVIA) 4-10 100 mg ity of 100 mg 16:43: tablet [place] tablet 45 Medical Branch SITagliptin Yes Januvia Uni vers (JANUVIA) 4-10 100 mg ity of 100 mg 16:43: tablet [place] tablet 45 Medical Branch SITagliptin Yes Januvia Uni vers (JANUVIA) 4-10 100 mg ity of 100 mg 16:43: tablet [place] tablet 45 Medical Branch SITagliptin Yes Januvia Uni vers (JANUVIA) 4-10 100 mg ity of 100 mg 16:43: tablet [place] tablet 45 Medical Branch levothyroxi Yes levothyrox Univers ne 100 mcg 4-10 ine sodium ity of tablet 16:42: 100 mcg [place] 24 tabs Medical Branch amiodarone Yes amiodarone U nivers 200 mg 4-10 200 mg ity of tablet 16:42: tablet [place] 24 Medical Branch digoxin 250 Yes digoxin Uni vers mcg (0.25 4-10 250 mcg ity of mg) tablet 16:42: (0.25 mg) [place] 24 tablet Medical Branch finasteride Yes finasterid Univers 5 mg tablet 4-10 e 5 mg ity of 16:42: tablet [place] 24 TAKE ONE Medical TABLET BY Branch MOUTH DAILY oxybutynin Yes oxybutynin U nivers chloride 5 4-10 chloride 5 ity of mg tablet 16:42: mg tablet [place] as 24 [facility] levothyroxi Yes levothyrox Univers ne 100 mcg 4-10 ine sodium ity of tablet 16:42: [address] [place] [address] amiodarone Yes amiodarone U nivers 200 mg 4-10 200 mg ity of tablet 16:42: tablet [address] digoxin 250 Yes digoxin Uni vers mcg (0.25 4-10 250 mcg ity of mg) tablet 16:42: (0.25 mg) [place] 24 tablet [facility] finasteride Yes finasterid Univers 5 mg tablet 4-10 e 5 mg ity of 16:42: tablet [place] 24 TAKE ONE Medical TABLET BY Branch MOUTH DAILY oxybutynin Yes oxybutynin U nivers chloride 5 4-10 chloride 5 ity of mg tablet 16:42: mg tablet [place] 24 [facility] levothyroxi Yes levothyrox Univers ne 100 mcg 4-10 ine sodium ity of tablet 16:42: [address] [place] [address] amiodarone Yes amiodarone U nivers 200 mg 4-10 200 mg ity of tablet 16:42: tablet [place] [address] Medical Branch digoxin 250 Yes digoxin Uni vers mcg (0.25 4-10 250 mcg ity of mg) tablet 16:42: (0.25 mg) [place] 24 tablet [facility] finasteride Yes finasterid Univers 5 mg tablet 4-10 e 5 mg ity of 16:42: tablet [place] 24 TAKE ONE Medical TABLET BY Branch MOUTH DAILY oxybutynin Yes oxybutynin U nivers chloride 5 4-10 chloride 5 ity of mg tablet 16:42: mg tablet [place] 24 [facility] levothyroxi Yes levothyrox Univers ne 100 mcg 4-10 ine sodium ity of tablet 16:42: [address] amiodarone Yes amiodarone U nivers 200 mg 4-10 200 mg ity of tablet 16:42: tablet [address] digoxin 250 Yes digoxin Uni vers mcg (0.25 4-10 250 mcg ity of mg) tablet 16:42: (0.25 mg) [place] 24 tablet [facility] finasteride Yes finasterid Univers 5 mg tablet 4-10 e 5 mg ity of 16:42: tablet [place] [address] TAKE ONE Medical TABLET BY Branch MOUTH DAILY oxybutynin Yes oxybutynin U nivers chloride 5 4-10 chloride 5 ity of mg tablet 16:42: mg tablet [place] 24 [facility] levothyroxi Yes levothyrox Univers ne 100 mcg 4-10 ine sodium ity of tablet 16:42: [address] amiodarone Yes amiodarone U nivers 200 mg 4-10 200 mg ity of tablet 16:42: tablet [address] digoxin 250 Yes digoxin Uni vers mcg (0.25 4-10 250 mcg ity of mg) tablet 16:42: (0.25 mg) [place] 24 tablet [facility] finasteride Yes finasterid Univers 5 mg tablet 4-10 e 5 mg ity of 16:42: tablet [place] [address] TAKE ONE Medical TABLET BY Branch MOUTH DAILY oxybutynin Yes oxybutynin U nivers chloride 5 4-10 chloride 5 ity of mg tablet 16:42: mg tablet [place] 24 [facility] levothyroxi Yes levothyrox Univers ne 100 mcg 4-10 ine sodium ity of tablet 16:42: [address] amiodarone Yes amiodarone U nivers 200 mg 4-10 200 mg ity of tablet 16:42: tablet [address] digoxin 250 Yes digoxin Uni vers mcg (0.25 4-10 250 mcg ity of mg) tablet 16:42: (0.25 mg) [place] 24 tablet [facility] Branch finasteride Yes finasterid [facility] 5 mg tablet 4-10 e 5 mg ity of 16:42: tablet [place] 24 TAKE ONE Medical TABLET BY Branch MOUTH DAILY oxybutynin Yes oxybutynin U nivers chloride 5 4-10 chloride 5 ity of mg tablet 16:42: mg tablet [place] 24 [facility] levothyroxi Yes levothyrox Univers ne 100 mcg 4-10 ine sodium ity of tablet 16:42: 100 mcg [place] 24 [facility] amiodarone Yes amiodarone U nivers 200 mg 4-10 200 mg ity of tablet 16:42: tablet [address] Branch digoxin 250 Yes digoxin Uni vers mcg (0.25 4-10 250 mcg ity of mg) tablet 16:42: (0.25 mg) [place] 24 tablet [facility] finasteride Yes finasterid Univers 5 mg tablet 4-10 e 5 mg ity of 16:42: tablet [place] 24 TAKE ONE Medical TABLET BY Branch MOUTH DAILY oxybutynin Yes oxybutynin U nivers chloride 5 4-10 chloride 5 ity of mg tablet 16:42: mg tablet [place] 24 [facility] levothyroxi Yes levothyrox Univers ne 100 mcg 4-10 ine sodium ity of tablet 16:42: [address] [place] [address] amiodarone Yes amiodarone U nivers 200 mg 4-10 200 mg ity of tablet 16:42: tablet [address] digoxin 250 Yes digoxin Uni vers mcg (0.25 4-10 250 mcg ity of mg) tablet 16:42: (0.25 mg) [place] 24 tablet [facility] Branch finasteride Yes finasterid Univers 5 mg tablet 4-10 e 5 mg ity of 16:42: tablet [place] 24 TAKE ONE Medical TABLET BY Branch MOUTH DAILY oxybutynin Yes oxybutynin U nivers chloride 5 4-10 chloride 5 ity of mg tablet 16:42: mg tablet [place] 24 [facility] levothyroxi Yes levothyrox Univers ne 100 mcg 4-10 ine sodium ity of tablet 16:42: 100 mcg [place] [address] [place] [address] amiodarone Yes amiodarone U nivers 200 mg 4-10 200 mg ity of tablet 16:42: tablet [address] [place] [address] digoxin 250 Yes digoxin Uni vers mcg (0.25 4-10 250 mcg ity of mg) tablet 16:42: (0.25 mg) [place] 24 tablet [facility] finasteride Yes finasterid Univers 5 mg tablet 4-10 e 5 mg ity of 16:42: tablet 24 TAKE ONE Medical TABLET BY Branch MOUTH DAILY oxybutynin Yes oxybutynin U nivers chloride 5 4-10 chloride 5 ity of mg tablet 16:42: mg tablet [facility] levothyroxi Yes levothyrox Univers ne 100 mcg 4-10 ine sodium ity of tablet 16:42: [address] [place] [address] amiodarone Yes amiodarone U nivers 200 mg 4-10 200 mg ity of tablet 16:42: tablet [address] digoxin 250 Yes digoxin Uni vers mcg (0.25 4-10 250 mcg ity of mg) tablet 16:42: (0.25 mg) [place] 24 tablet [facility] finasteride Yes finasterid Univers 5 mg tablet 4-10 e 5 mg ity of 16:42: tablet 24 TAKE ONE Medical TABLET BY Branch MOUTH DAILY oxybutynin Yes oxybutynin U nivers chloride 5 4-10 chloride 5 ity of mg tablet 16:42: mg tablet [place] [facility] clopidogreL Yes Univer s 75 mg 3-06 ity of tablet 00:00: [facility] metoprolol Yes Univers tartrate 50 3-06 ity of mg tablet 00:00: [facility] clopidogreL Yes Univer s 75 mg 3-06 ity of tablet 00:00: [facility] metoprolol Yes Univers tartrate 50 3-06 ity of mg tablet 00:00: [facility] clopidogreL Yes Univer s 75 mg 3-06 ity of tablet 00:00: [facility] metoprolol 2022-0 Yes Univers tartrate 50 3-06 ity of mg tablet 00:00: [place] [facility] clopidogreL 2022-0 Yes Univer s 75 mg 3-06 ity of tablet 00:00: [place] [facility] metoprolol 2-0 Yes Univers tartrate 50 3-06 ity of mg tablet 00:00: [place] [address] Medical Branch clopidogreL 2022-0 Yes Univer s 75 mg 3-06 ity of tablet 00:00: [place] [facility] metoprolol 2022-0 Yes Univers tartrate 50 3-06 ity of mg tablet 00:00: [place] [address] Medical Branch clopidogreL 2-0 Yes Univer s 75 mg 3-06 ity of tablet 00:00: [place] [address] Medical Branch metoprolol 2021-0 Yes Univers tartrate 50 3-06 ity of mg tablet 00:00: [place] [address] Medical Branch clopidogreL 2-0 Yes Univer s 75 mg 3-06 ity of tablet 00:00: [place] [address] Medical Branch metoprolol 2-0 Yes Univers tartrate 50 3-06 ity of mg tablet 00:00: [place] [address] Medical Branch clopidogreL 2-0 Yes Univer s 75 mg 3-06 ity of tablet 00:00: [place] [address] Medical Branch metoprolol 2-0 Yes Univers tartrate 50 3-06 ity of mg tablet 00:00: [place] [address] Medical Branch clopidogreL 2-0 Yes Univer s 75 mg 3-06 ity of tablet 00:00: [place] [address] Medical Branch metoprolol 2-0 Yes Univers tartrate 50 3-06 ity of mg tablet 00:00: [place] [address] Medical Branch clopidogreL 2-0 Yes Univer s 75 mg 3-06 ity of tablet 00:00: [place] [address] Medical Branch metoprolol 2022-0 Yes Univers tartrate 50 3-06 ity of mg tablet 00:00: [address] Branch warfarin 5 2021-0 Yes Univers mg tablet 2-18 ity of 00:00: [address] Branch warfarin 5 2021-0 Yes Univers mg tablet 2-18 ity of 00:00: [place] [address] Medical Branch warfarin 5 2021-0 Yes Univers mg tablet 2-18 ity of 00:00: [address] warfarin 5 2021-0 Yes Univers mg tablet 2-18 ity of 00:00: [place] 00 Medical Branch warfarin 5 2021-0 Yes Univers mg tablet 2-18 ity of 00:00: [place] [facility] warfarin 5 2-0 Yes Univers mg tablet 2-18 ity of 00:00: [place] [facility] warfarin 5 2021-0 Yes Univers mg tablet 2-18 ity of 00:00: [place] [facility] warfarin 5 2-0 Yes Univers mg tablet 2-18 ity of 00:00: [place] [address] Medical Branch warfarin 5 2-0 Yes Univers mg tablet 2-18 ity of 00:00: [place] [address] Medical Branch warfarin 5 2-0 Yes Univers mg tablet 2-18 ity of 00:00: [place] [address] Medical Branch tamsulosin 2-0 Yes Univers 0.4 mg 24 1-07 ity of hr capsule 00:00: [place] [facility] tamsulosin 2-0 Yes Univers 0.4 mg 24 1-07 ity of hr capsule 00:00: [place] [address] Medical Branch tamsulosin 2-0 Yes Univers 0.4 mg 24 1-07 ity of hr capsule 00:00: [place] [address] Medical Branch tamsulosin 2-0 Yes Univers 0.4 mg 24 1-07 ity of hr capsule 00:00: [place] [address] Medical Branch tamsulosin 2-0 Yes Univers 0.4 mg 24 1-07 ity of hr capsule 00:00: [place] [address] Medical Branch tamsulosin 2-0 Yes Univers 0.4 mg 24 1-07 ity of hr capsule 00:00: [place] [address] Medical Branch tamsulosin 2-0 Yes Univers 0.4 mg 24 1-07 ity of hr capsule 00:00: [place] [address] Medical Branch tamsulosin 2-0 Yes Univers 0.4 mg 24 1-07 ity of hr capsule 00:00: [place] [address] Medical Branch tamsulosin 2-0 Yes Univers 0.4 mg 24 1-07 ity of hr capsule 00:00: [place] [address] Medical Branch tamsulosin 2-0 Yes Univers 0.4 mg 24 1-07 ity of hr capsule 00:00: [place] [address] Medical Branch metFORMIN 2-0 Yes Univers 1,000 mg 1-05 ity of tablet 00:00: [place] [address] Medical Branch metFORMIN 2022-0 Yes Univers 1,000 mg 1-05 ity of tablet 00:00: [place] [address] Medical Branch metFORMIN 2022-0 Yes Univers 1,000 mg 1-05 ity of tablet 00:00: [place] 00 Medical Branch metFORMIN 2022-0 Yes Univers 1,000 mg 1-05 ity of tablet 00:00: 00 Medical Branch metFORMIN 2022-0 Yes Univers 1,000 mg 1-05 ity of tablet 00:00: Medical Branch metFORMIN 2022-0 Yes Univers 1,000 mg 1-05 ity of tablet 00:00: Medical Branch metFORMIN 2022-0 Yes Univers 1,000 mg 1-05 ity of tablet 00:00: Medical Branch metFORMIN 2022-0 Yes Univers 1,000 mg 1-05 ity of tablet 00:00: Medical Branch metFORMIN 2022-0 Yes Univers 1,000 mg 1-05 ity of tablet 00:00: Medical Branch metFORMIN 2022-0 Yes Univers 1,000 mg 1-05 ity of tablet 00:00: [facility] Branch nitroglycer 2-0 Yes Univer s in 0.4 mg 1-04 ity of sublingual 00:00: [place] tablet 00 Medical Branch nitroglycer 2-0 Yes Univer s in 0.4 mg 1-04 ity of sublingual 00:00: [place] tablet 00 Medical Branch nitroglycer 2-0 Yes Univer s in 0.4 mg 1-04 ity of sublingual 00:00: [place] tablet 00 Medical Branch nitroglycer 2-0 Yes Univer s in 0.4 mg 1-04 ity of sublingual 00:00: [place] tablet 00 Medical Branch nitroglycer 2-0 Yes Univer s in 0.4 mg 1-04 ity of sublingual 00:00: [place] tablet 00 Medical Branch nitroglycer 2-0 Yes Univer s in 0.4 mg 1-04 ity of sublingual 00:00: [place] tablet 00 Medical Branch nitroglycer 2-0 Yes Univer s in 0.4 mg 1-04 ity of sublingual 00:00: [place] tablet 00 Medical Branch nitroglycer 2022-0 Yes Univer s in 0.4 mg 1-04 ity of sublingual 00:00: [place] tablet 00 Medical Branch nitroglycer 2022-0 Yes Univer s in 0.4 mg 1-04 ity of sublingual 00:00: [place] tablet 00 Medical Branch nitroglycer 2-0 Yes Univer s in 0.4 mg 1-04 ity of sublingual 00:00: [place] tablet 00 Medical Branch metFORMIN Yes 1000mg Take 1,[address] [facility] (GLUCOPHAGE 8-10 [facility] ) 1000 MG 13:35: mouth 2 Medic al tablet 16 (two) Center times daily with breakfast and dinner. losartan Yes 100mg QD Take [address] [facility] (COZAAR) 8-10 mg by [facility] 100 MG 13:35: mouth Medical tablet 16 daily. [place] levothyroxi Yes 100ug Take [address] ne 8-10 mcg by [facility] (SYNTHROID, 13:35: mouth Medic al LEVOTHROID) 16 Every Center 100 MCG morning on tablet an empty stomach. SITagliptin Yes 100mg QD Take [address] (JANUVIA) 8-10 mg by [facility] 100 MG 13:35: mouth Medical tablet 16 daily. [place] glimepiride Yes 4mg Q.5D Take [address] (AMARYL) 4 8-10 by mouth 2 [facility] es MG tablet 13:35: (two) Medical 16 times Center daily. simvastatin Yes 20mg QD Take [address] [facility] (ZOCOR) 20 8-10 by mouth [facility] MG tablet 13:35: nightly. Medi leta 16 Center tamsulosin Yes .4mg QD Take 0.[address] [facility] (FLOMAX) 8-10 mg by [facility] 0.4 mg Cap 13:35: mouth Medica l 24 hr 16 daily. [place] capsule finasteride Yes 5mg QD Take [address] (PROSCAR) 5 8-10 by mouth Luke [facility] mg tablet 13:35: nightly . Med ical 16 Center fluticasone Yes 1{spray QD [address] [facility] propionate 8-10 } Nasal [facility] (FLONASE) 13:35: route Medical 50 16 daily. Center mcg/actuati on nasal spray aspirin 325 Yes 325mg QD Take [address] MG tablet 8-10 mg by [facility] 13:35: mouth Medical 16 nightly . [place] magnesium Yes 500mg Q.5D Take [address] [facility] gluconate 8-10 mg by [facility] (MAGONATE) 13:35: mouth 2 Medi leta 27.5 mg 16 (two) Center magne- sium times (500 mg) daily. tablet amLODIPine Yes 5mg QD Take [address] [facility] [address] [facility] (NORVASC) 8-10 by mouth [facility] 2.5 MG 13:35: daily. Medical tablet 16 Center metFORMIN Yes 1000mg Take 1,[address] [facility] (GLUCOPHAGE 8-10 mg by [facility] ) 1000 MG 13:35: mouth 2 Medic al tablet 16 (two) Center times daily with breakfast and dinner. losartan Yes 100mg QD Take [address] [facility] (COZAAR) 8-10 mg by [facility] 100 MG 13:35: mouth Medical tablet 16 daily. Center levothyroxi Yes 100ug Take [address] ne 8-10 mcg by [facility] (SYNTHROID, 13:35: mouth Medic al LEVOTHROID) 16 Every Center 100 MCG morning on tablet an empty stomach. SITagliptin Yes 100mg QD Take [address] (JANUVIA) 8-10 mg by [facility] 100 MG 13:35: mouth Medical tablet 16 daily. [place] glimepiride Yes 4mg Q.5D Take [address] (AMARYL) 4 8-10 by mouth 2 [place] es MG tablet 13:35: (two) Medical 16 times Center daily. simvastatin Yes 20mg QD Take [address] [facility] (ZOCOR) 20 8-10 by mouth [facility] MG tablet 13:35: nightly. Medi leta 16 Center tamsulosin Yes .4mg QD Take 0.[address] [facility] (FLOMAX) 8-10 mg by [facility] 0.4 mg Cap 13:35: mouth Medica l 24 hr 16 daily. [place] capsule finasteride Yes 5mg QD Take [address] (PROSCAR) 5 8-10 by mouth Luke s mg tablet 13:35: nightly . Med ical 16 Center fluticasone Yes 1{spray QD [address] [facility] propionate 8-10 } Nasal [facility] (FLONASE) 13:35: route Medical 50 16 daily. Center mcg/actuati on nasal spray aspirin 325 Yes 325mg QD Take [address] MG tablet 8-10 mg by [facility] 13:35: mouth Medical 16 nightly . Center magnesium Yes 500mg Q.5D Take [address] [facility] [address] gluconate 8-10 mg by [facility] (MAGONATE) 13:35: mouth 2 Medi leta 27.5 mg 16 (two) Center magne- sium times (500 mg) daily. tablet amLODIPine Yes 5mg QD Take [address] [facility] [address] [facility] (NORVASC) 8-10 by mouth [facility] 2.5 MG 13:35: daily. Medical tablet 16 Center metFORMIN Yes 1000mg Take 1,[address] [facility] (GLUCOPHAGE 8-10 mg by [facility] ) 1000 MG 13:35: mouth 2 Medic al tablet 16 (two) Center times daily with breakfast and dinner. losartan Yes 100mg QD Take [address] [facility] (COZAAR) 8-10 mg by [facility] 100 MG 13:35: mouth Medical tablet 16 daily. Center levothyroxi Yes 100ug Take [address] ne 8-10 mcg by [facility] (SYNTHROID, 13:35: mouth Medic al LEVOTHROID) 16 Every Center 100 MCG morning on tablet an empty stomach. SITagliptin Yes 100mg QD Take [address] (JANUVIA) 8-10 mg by [facility] 100 MG 13:35: mouth Medical tablet 16 daily. [place] glimepiride Yes 4mg Q.5D Take [address] (AMARYL) 4 8-10 by mouth 2 [place] es MG tablet 13:35: (two) Medical 16 times Center daily. simvastatin Yes 20mg QD Take [address] [facility] (ZOCOR) 20 8-10 by mouth [facility] MG tablet 13:35: nightly. Medi leta 16 Center tamsulosin Yes .4mg QD Take 0.[address] [facility] (FLOMAX) 8-10 mg by [facility] 0.4 mg Cap 13:35: mouth Medica l 24 hr 16 daily. Center capsule finasteride Yes 5mg QD Take [address] (PROSCAR) 5 8-10 by mouth Luke s mg tablet 13:35: nightly . Med ical 16 Center fluticasone Yes 1{spray QD [address] [facility] propionate 8-10 } Nasal [facility] (FLONASE) 13:35: route Medical 50 16 daily. Center mcg/actuati on nasal spray aspirin 325 Yes 325mg QD Take [address] MG tablet 8-10 mg by [facility] 13:35: mouth Medical 16 nightly . Center magnesium Yes 500mg Q.5D Take [address] [facility] [address] gluconate 8-10 mg by [facility] (MAGONATE) 13:35: mouth 2 Medi leta 27.5 mg 16 (two) Center magne- sium times (500 mg) daily. tablet amLODIPine Yes 5mg QD Take [address] [facility] [address] [facility] (NORVASC) 8-10 by mouth [facility] 2.5 MG 13:35: daily. Medical tablet 16 [place] metFORMIN Yes 1000mg Take 1,[address] [facility] (GLUCOPHAGE 8-10 mg by [facility] ) 1000 MG 13:35: mouth 2 Medic al tablet 16 (two) Center times daily with breakfast and dinner. losartan Yes 100mg QD Take [address] [facility] (COZAAR) 8-10 mg by [facility] 100 MG 13:35: mouth Medical tablet 16 daily. [place] levothyroxi Yes 100ug Take [address] ne 8-10 mcg by [facility] (SYNTHROID, 13:35: mouth Medic al LEVOTHROID) 16 Every Center 100 MCG morning on tablet an empty stomach. SITagliptin Yes 100mg QD Take [address] (JANUVIA) 8-10 mg by [facility] 100 MG 13:35: mouth Medical tablet 16 daily. Center glimepiride Yes 4mg Q.5D Take [address] (AMARYL) 4 8-10 by mouth 2 [place] es MG tablet 13:35: (two) Medical 16 times Center daily. simvastatin Yes 20mg QD Take [address] [facility] (ZOCOR) 20 8-10 by mouth [facility] MG tablet 13:35: nightly. Medi leta 16 Center tamsulosin Yes .4mg QD Take 0.[address] [facility] (FLOMAX) 8-10 mg by [facility] 0.4 mg Cap 13:35: mouth Medica l 24 hr 16 daily. [place] capsule finasteride Yes 5mg QD Take [address] (PROSCAR) 5 8-10 by mouth [facility] mg tablet 13:35: nightly . Med ical 16 [place] fluticasone Yes 1{spray QD [address] [facility] propionate 8-10 } Nasal [facility] (FLONASE) 13:35: route Medical 50 16 daily. Center mcg/actuati on nasal spray aspirin 325 Yes 325mg QD Take [address] MG tablet 8-10 mg by [facility] 13:35: mouth Medical 16 nightly . Center magnesium Yes 500mg Q.5D Take [address] [facility] [address] gluconate 8-10 mg by [facility] (MAGONATE) 13:35: mouth 2 Medi leta 27.5 mg 16 (two) Center magne- sium times (500 mg) daily. tablet amLODIPine Yes 5mg QD Take [address] [facility] [address] [facility] (NORVASC) 8-10 by mouth [facility] 2.5 MG 13:35: daily. Medical tablet 16 [place] metFORMIN Yes 1000mg Take 1,[address] [facility] (GLUCOPHAGE 8-10 mg by [facility] ) 1000 MG 13:35: mouth 2 Medic al tablet 16 (two) Center times daily with breakfast and dinner. losartan Yes 100mg QD Take [address] [facility] (COZAAR) 8-10 mg by [facility] 100 MG 13:35: mouth Medical tablet 16 daily. [place] levothyroxi Yes 100ug Take [address] ne 8-10 mcg by [facility] (SYNTHROID, 13:35: mouth Medic al LEVOTHROID) 16 Every Center 100 MCG morning on tablet an empty stomach. SITagliptin Yes 100mg QD Take [address] (JANUVIA) 8-10 mg by [facility] 100 MG 13:35: mouth Medical tablet 16 daily. [place] glimepiride Yes 4mg Q.5D Take [address] (AMARYL) 4 8-10 by mouth 2 [facility] es MG tablet 13:35: (two) Medical 16 times Center daily. simvastatin Yes 20mg QD Take [address] [facility] (ZOCOR) 20 8-10 by mouth [facility] MG tablet 13:35: nightly. Medi leta 16 [place] tamsulosin Yes .4mg QD Take 0.[address] [facility] (FLOMAX) 8-10 mg by [facility] 0.4 mg Cap 13:35: mouth Medica l 24 hr 16 daily. Center capsule finasteride Yes 5mg QD Take [address] (PROSCAR) 5 8-10 by mouth [facility] mg tablet 13:35: nightly . Med ical 16 [place] fluticasone Yes 1{spray QD [address] [facility] propionate 8-10 } Nasal [facility] (FLONASE) 13:35: route Medical 50 16 daily. Center mcg/actuati on nasal spray aspirin 325 Yes 325mg QD Take [address] MG tablet 8-10 mg by [facility] 13:35: mouth Medical 16 nightly . [place] magnesium Yes 500mg Q.5D Take [address] [facility] [address] gluconate 8-10 mg by [facility] (MAGONATE) 13:35: mouth 2 Medi leta 27.5 mg 16 (two) Center magne- sium times (500 mg) daily. tablet amLODIPine Yes 5mg QD Take [address] [facility] [address] [facility] (NORVASC) 8-10 by mouth [facility] 2.5 MG 13:35: daily. Medical tablet 16 [place] metFORMIN Yes 1000mg Take 1,[address] [facility] (GLUCOPHAGE 8-10 mg by [facility] ) 1000 MG 13:35: mouth 2 Medic al tablet 16 (two) Center times daily with breakfast and dinner. losartan Yes 100mg QD Take [address] [facility] (COZAAR) 8-10 mg by [facility] 100 MG 13:35: mouth Medical tablet 16 daily. [place] levothyroxi Yes 100ug Take [address] ne 8-10 mcg by [facility] (SYNTHROID, 13:35: mouth Medic al LEVOTHROID) 16 Every Center 100 MCG morning on tablet an empty stomach. SITagliptin Yes 100mg QD Take [address] (JANUVIA) 8-10 mg by [facility] 100 MG 13:35: mouth Medical tablet 16 daily. Center glimepiride Yes 4mg Q.5D Take [address] (AMARYL) 4 8-10 by mouth 2 [place] es MG tablet 13:35: (two) Medical 16 times Center daily. simvastatin Yes 20mg QD Take [address] [facility] (ZOCOR) 20 8-10 by mouth [facility] MG tablet 13:35: nightly. Medi leta 16 [place] tamsulosin Yes .4mg QD Take 0.[address] [facility] (FLOMAX) 8-10 mg by [facility] 0.4 mg Cap 13:35: mouth Medica l 24 hr 16 daily. [place] capsule finasteride Yes 5mg QD Take [address] (PROSCAR) 5 8-10 by mouth [facility] mg tablet 13:35: nightly . Med ical 16 [place] fluticasone Yes 1{spray QD [address] [facility] propionate 8-10 } Nasal [facility] (FLONASE) 13:35: route Medical 50 16 daily. Center mcg/actuati on nasal spray aspirin 325 Yes 325mg QD Take [address] MG tablet 8-10 mg by [facility] 13:35: mouth Medical 16 nightly . [place] magnesium Yes 500mg Q.5D Take [address] [facility] [address] gluconate 8-10 mg by [facility] (MAGONATE) 13:35: mouth 2 Medi leta 27.5 mg 16 (two) [place] magne- sium times (500 mg) daily. tablet amLODIPine Yes 5mg QD Take [address] [facility] [address] [facility] (NORVASC) 8-10 by mouth [facility] 2.5 MG 13:35: daily. Medical tablet 16 [place] metFORMIN Yes 1000mg Take 1,[address] [facility] (GLUCOPHAGE 8-10 mg by [facility] ) 1000 MG 13:35: mouth 2 Medic al tablet 16 (two) Center times daily with breakfast and dinner. losartan Yes 100mg QD Take [address] [facility] (COZAAR) 8-10 mg by [facility] 100 MG 13:35: mouth Medical tablet 16 daily. [place] levothyroxi Yes 100ug Take [address] ne 8-10 mcg by [facility] (SYNTHROID, 13:35: mouth Medic al LEVOTHROID) 16 Every Center 100 MCG morning on tablet an empty stomach. SITagliptin Yes 100mg QD Take [address] (JANUVIA) 8-10 mg by [facility] 100 MG 13:35: mouth Medical tablet 16 daily. [place] glimepiride Yes 4mg Q.5D Take [address] (AMARYL) 4 8-10 by mouth 2 [facility] es MG tablet 13:35: (two) Medical 16 times Center daily. simvastatin Yes 20mg QD Take [address] [facility] (ZOCOR) 20 8-10 by mouth [facility] MG tablet 13:35: nightly. Medi leta 16 [place] tamsulosin Yes .4mg QD Take 0.[address] [facility] (FLOMAX) 8-10 mg by [facility] 0.4 mg Cap 13:35: mouth Medica l 24 hr 16 daily. [place] capsule finasteride Yes 5mg QD Take [address] (PROSCAR) 5 8-10 by mouth [facility] mg tablet 13:35: nightly . Med ical 16 Center fluticasone Yes 1{spray QD [address] [facility] propionate 8-10 } [facility]al [facility] (FLONASE) 13:35: route Medical 50 16 daily. [place] mcg/actuati on nasal spray aspirin 325 0 Yes 325mg QD Take [address] MG tablet 8-10 mg by [facility] 13:35: mouth Medical 16 nightly . [place] magnesium Yes 500mg Q.5D Take [address] [facility] [address] gluconate 8-10 mg by [facility] (MAGONATE) 13:35: mouth 2 Medi leta 27.5 mg 16 (two) Center magne- sium times (500 mg) daily. tablet amLODIPine Yes 5mg QD Take [address] [facility] [address] [facility] (NORVASC) 8-10 by mouth [facility] 2.5 MG 13:35: daily. Medical tablet 16 [place] metFORMIN Yes 1000mg Take 1,[address] [facility] (GLUCOPHAGE 8-10 mg by [facility] ) 1000 MG 13:35: mouth 2 Medic al tablet 16 (two) Center times daily with breakfast and dinner. losartan 0 Yes 100mg QD Take [address] [facility] (COZAAR) 8-10 mg by [facility] 100 MG 13:35: mouth Medical tablet 16 daily. [place] levothyroxi Yes 100ug Take [address] ne 8-10 mcg by [facility] (SYNTHROID, 13:35: mouth Medic al LEVOTHROID) 16 Every Center 100 MCG morning on tablet an empty stomach. SITagliptin Yes 100mg QD Take [address] (JANUVIA) 8-10 mg by [facility] 100 MG 13:35: mouth Medical tablet 16 daily. Center glimepiride Yes 4mg Q.5D Take [address] (AMARYL) 4 8-10 by mouth 2 [facility]scar es MG tablet 13:35: (two) Medical 16 times Center daily. simvastatin Yes 20mg QD Take [address] [facility] (ZOCOR) 20 8-10 by mouth [facility] MG tablet 13:35: nightly. Medi leta 16 Center tamsulosin Yes .4mg QD Take 0.[address] [facility] (FLOMAX) 8-10 mg by [facility] 0.4 mg Cap 13:35: mouth Medica l 24 hr 16 daily. [place] capsule finasteride Yes 5mg QD Take [address] (PROSCAR) 5 8-10 by mouth [facility] mg tablet 13:35: nightly . Med ical 16 [place] fluticasone Yes 1{spray QD [address] [facility] propionate 8-10 } [facility]al [facility] (FLONASE) 13:35: route Medical 50 16 daily. Center mcg/actuati on nasal spray aspirin 325 Yes 325mg QD Take [address] MG tablet 8-10 mg by [facility] 13:35: mouth Medical 16 nightly . [place] magnesium Yes 500mg Q.5D Take [address] [facility] [address] gluconate 8-10 mg by [facility] (MAGONATE) 13:35: mouth 2 Medi leta 27.5 mg 16 (two) Center magne- sium times (500 mg) daily. tablet amLODIPine Yes 5mg QD Take [address] [facility] [address] [facility] (NORVASC) 8-10 by mouth [facility] 2.5 MG 13:35: daily. Medical tablet 16 [place] metFORMIN Yes 1000mg Take 1,[address] [facility] (GLUCOPHAGE 8-10 mg by [facility] ) 1000 MG 13:35: mouth 2 Medic al tablet 16 (two) Center times daily with breakfast and dinner. losartan Yes 100mg QD Take [address] [facility] (COZAAR) 8-10 mg by [facility] 100 MG 13:35: mouth Medical tablet 16 daily. Center levothyroxi Yes 100ug Take [address] ne 8-10 mcg by [facility] (SYNTHROID, 13:35: mouth Medic al LEVOTHROID) 16 Every Center 100 MCG morning on tablet an empty stomach. SITagliptin Yes 100mg QD Take [address] (JANUVIA) 8-10 mg by [facility] 100 MG 13:35: mouth Medical tablet 16 daily. Center glimepiride Yes 4mg Q.5D Take [address] (AMARYL) 4 8-10 by mouth 2 [facility]scar es MG tablet 13:35: (two) Medical 16 times Center daily. simvastatin Yes 20mg QD Take [address] [facility] (ZOCOR) 20 8-10 by mouth [facility] MG tablet 13:35: nightly. Medi leta 16 Center tamsulosin Yes .4mg QD Take 0.[address] [facility] (FLOMAX) 8-10 mg by [facility] 0.4 mg Cap 13:35: mouth Medica l 24 hr 16 daily. Center capsule finasteride Yes 5mg QD Take [address] (PROSCAR) 5 8-10 by mouth Luke s mg tablet 13:35: nightly . Med ical 16 Center fluticasone Yes 1{spray QD [address] [facility] propionate 8-10 } [facility]al [facility] (FLONASE) 13:35: route Medical 50 16 daily. Center mcg/actuati on nasal spray aspirin 325 Yes 325mg QD Take [address] MG tablet 8-10 mg by [facility] 13:35: mouth Medical 16 nightly . Center magnesium Yes 500mg Q.5D Take [address] [facility] gluconate 8-10 mg by [facility] (MAGONATE) 13:35: mouth 2 Medi leta 27.5 mg 16 (two) Center magne- sium times (500 mg) daily. tablet amLODIPine Yes 5mg QD Take [address] [facility] (NORVASC) 8-10 by [facility] 2.5 MG 13:35: daily. Medical tablet 16 Center metFORMIN Yes 1000mg Take 1,[address] [facility] (GLUCOPHAGE 8-10 mg by [facility] ) 1000 MG 13:35: mouth 2 Medic al tablet 16 (two) Center times daily with breakfast and dinner. losartan 0 Yes 100mg QD Take [address] [facility] (COZAAR) 8-10 mg by [facility] 100 MG 13:35: mouth Medical tablet 16 daily. Center levothyroxi Yes 100ug Take [address] ne 8-10 mcg by [facility] (SYNTHROID, 13:35: mouth Medic al LEVOTHROID) 16 Every Center 100 MCG morning on tablet an empty stomach. SITagliptin Yes 100mg QD Take [address] (JANUVIA) 8-10 mg by [facility] 100 MG 13:35: mouth Medical tablet 16 daily. Center glimepiride Yes 4mg Q.5D Take [address] (AMARYL) 4 8-10 by mouth 2 Óscar es MG tablet 13:35: (two) Medical 16 times Center daily. simvastatin Yes 20mg QD Take [address] [facility] (ZOCOR) 20 8-10 by [facility] MG tablet 13:35: nightly. Medi leta 16 Center tamsulosin Yes .4mg QD Take 0.[address] [facility] (FLOMAX) 8-10 mg by [facility] 0.4 mg Cap 13:35: mouth Medica l 24 hr 16 daily. [facility] capsule finasteride Yes 5mg QD Take [address] (PROSCAR) 5 8-10 by mouth [facility] mg tablet 13:35: nightly . Med ical 16 [place] fluticasone Yes 1{spray QD [address] [facility] propionate 8-10 } Nasal [facility] (FLONASE) 13:35: route Medical 50 16 daily. Center mcg/actuati on nasal spray aspirin 325 Yes 325mg QD Take [address] MG tablet 8-10 mg by [facility] 13:35: mouth Medical 16 nightly . [facility] magnesium Yes 500mg Q.5D Take [address] [facility] gluconate 8-10 mg by [facility] (MAGONATE) 13:35: mouth 2 Medi leta 27.5 mg 16 (two) Center magne- sium times (500 mg) daily. tablet amLODIPine Yes 5mg QD Take [address] [facility] [address] [facility] (NORVASC) 8-10 by [facility] 2.5 MG 13:35: daily. Medical tablet 16 [place] metFORMIN Yes 1000mg Take 1,[address] [facility] (GLUCOPHAGE 8-10 mg by [facility] ) 1000 MG 13:35: mouth 2 Medic al tablet 16 (two) Center times daily with breakfast and dinner. losartan Yes 100mg QD Take [address] [facility] (COZAAR) 8-10 mg by [facility] 100 MG 13:35: mouth Medical tablet 16 daily. Center levothyroxi Yes 100ug Take [address] ne 8-10 mcg by [facility] (SYNTHROID, 13:35: mouth Medic al LEVOTHROID) 16 Every Center 100 MCG morning on tablet an empty stomach. SITagliptin 0 Yes 100mg QD Take [address] (JANUVIA) 8-10 mg by [facility] 100 MG 13:35: mouth Medical tablet 16 daily. Center glimepiride Yes 4mg Q.5D Take [address] (AMARYL) 4 8-10 by mouth 2 Óscar es MG tablet 13:35: (two) Medical 16 times Center daily. simvastatin Yes 20mg QD Take [address] [facility] (ZOCOR) 20 8-10 by [facility] MG tablet 13:35: nightly. Medi leta 16 Center tamsulosin Yes .4mg QD Take 0.[address] [facility] (FLOMAX) 8-10 mg by [facility] 0.4 mg Cap 13:35: mouth Medica l 24 hr 16 daily. [place] capsule finasteride Yes 5mg QD Take [address] (PROSCAR) 5 8-10 by mouth [facility] mg tablet 13:35: nightly . Med ical 16 Center fluticasone Yes 1{spray QD [address] [facility] propionate 8-10 } Nasal [facility] (FLONASE) 13:35: route Medical 50 16 daily. Center mcg/actuati on nasal spray aspirin 325 0 Yes 325mg QD Take [address] MG tablet 8-10 mg by [facility] 13:35: mouth Medical 16 nightly . Center magnesium 0 Yes 500mg Q.5D Take [address] [facility] [address] gluconate 8-10 mg by [facility] (MAGONATE) 13:35: mouth 2 Medi leta 27.5 mg 16 (two) Center magne- sium times (500 mg) daily. tablet amLODIPine 0 Yes 5mg QD Take [address] [facility] (NORVASC) 8-10 by mouth [facility] 2.5 MG 13:35: daily. Medical tablet 16 Center metFORMIN Yes 1000mg Take 1,[address] [facility] (GLUCOPHAGE 8-10 mg by [facility] ) 1000 MG 13:35: mouth 2 Medic al tablet 16 (two) Center times daily with breakfast and dinner. losartan Yes 100mg QD Take [address] [facility] (COZAAR) 8-10 mg by [facility] 100 MG 13:35: mouth Medical tablet 16 daily. [place] levothyroxi Yes 100ug Take [address] ne 8-10 mcg by [facility] (SYNTHROID, 13:35: mouth Medic al LEVOTHROID) 16 Every Center 100 MCG morning on tablet an empty stomach. SITagliptin Yes 100mg QD Take [address] (JANUVIA) 8-10 mg by [facility] 100 MG 13:35: mouth Medical tablet 16 daily. [place] glimepiride Yes 4mg Q.5D Take [address] (AMARYL) 4 8-10 by mouth 2 Óscar es MG tablet 13:35: (two) Medical 16 times Center daily. simvastatin Yes 20mg QD Take [address] [facility] (ZOCOR) 20 8-10 by mouth [facility] MG tablet 13:35: nightly. Medi leta 16 [place] tamsulosin Yes .4mg QD Take 0.[address] [facility] (FLOMAX) 8-10 mg by [facility] 0.4 mg Cap 13:35: mouth Medica l 24 hr 16 daily. [place] capsule finasteride Yes 5mg QD Take [address] (PROSCAR) 5 8-10 by mouth [facility] mg tablet 13:35: nightly . Med ical 16 Center fluticasone Yes 1{spray QD [address] [facility] propionate 8-10 } Nasal [facility] (FLONASE) 13:35: route Medical 50 16 daily. [place] mcg/actuati on nasal spray aspirin 325 Yes 325mg QD Take [address] MG tablet 8-10 mg by [facility] 13:35: mouth Medical 16 nightly . [place] magnesium Yes 500mg Q.5D Take [address] [facility] [address] gluconate 8-10 mg by [facility] (MAGONATE) 13:35: mouth 2 Medi leta 27.5 mg 16 (two) Center magne- sium times (500 mg) daily. tablet amLODIPine Yes 5mg QD Take [address] [facility] (NORVASC) 8-10 by mouth [facility] 2.5 MG 13:35: daily. Medical tablet 16 Center metFORMIN Yes 1000mg Take 1,[address] [facility] (GLUCOPHAGE 8-10 mg by [facility] ) 1000 MG 13:35: mouth 2 Medic al tablet 16 (two) Center times daily with breakfast and dinner. losartan Yes 100mg QD Take [address] [facility] (COZAAR) 8-10 mg by [facility] 100 MG 13:35: mouth Medical tablet 16 daily. [place] levothyroxi Yes 100ug Take [address] ne 8-10 mcg by [facility] (SYNTHROID, 13:35: mouth Medic al LEVOTHROID) 16 Every Center 100 MCG morning on tablet an empty stomach. SITagliptin Yes 100mg QD Take [address] (JANUVIA) 8-10 mg by [facility] 100 MG 13:35: mouth Medical tablet 16 daily. [place] glimepiride Yes 4mg Q.5D Take [address] (AMARYL) 4 8-10 by mouth 2 Óscar es MG tablet 13:35: (two) Medical 16 times Center daily. simvastatin Yes 20mg QD Take [address] [facility] (ZOCOR) 20 8-10 by [facility] MG tablet 13:35: nightly. Medi leta 16 [place] tamsulosin Yes .4mg QD Take 0.[address] [facility] (FLOMAX) 8-10 mg by [facility] 0.4 mg Cap 13:35: mouth Medica l 24 hr 16 daily. [place] capsule finasteride Yes 5mg QD Take [address] (PROSCAR) 5 8-10 by mouth [facility] mg tablet 13:35: nightly . Med ical 16 [place] fluticasone Yes 1{spray QD [address] [facility] propionate 8-10 } Nasal [facility] (FLONASE) 13:35: route Medical 50 16 daily. [place] mcg/actuati on nasal spray aspirin 325 Yes 325mg QD Take [address] MG tablet 8-10 mg by [facility] 13:35: mouth Medical 16 nightly . Center magnesium Yes 500mg Q.5D Take [address] [facility] [address] gluconate 8-10 mg by [facility] (MAGONATE) 13:35: mouth 2 Medi leta 27.5 mg 16 (two) Center magne- sium times (500 mg) daily. tablet amLODIPine Yes 5mg QD Take [address] [facility] (NORVASC) 8-10 by mouth [facility] 2.5 MG 13:35: daily. Medical tablet 16 Center metFORMIN Yes 1000mg Take 1,[address] [facility] (GLUCOPHAGE 8-10 mg by [facility] ) 1000 MG 13:35: mouth 2 Medic al tablet 16 (two) Center times daily with breakfast and dinner. losartan Yes 100mg QD Take [address] [facility] (COZAAR) 8-10 mg by [facility] 100 MG 13:35: mouth Medical tablet 16 daily. Center levothyroxi Yes 100ug Take [address] ne 8-10 mcg by [facility] (SYNTHROID, 13:35: mouth Medic al LEVOTHROID) 16 Every Center 100 MCG morning on tablet an empty stomach. SITagliptin Yes 100mg QD Take [address] (JANUVIA) 8-10 mg by [facility] 100 MG 13:35: mouth Medical tablet 16 daily. [place] glimepiride Yes 4mg Q.5D Take [address] (AMARYL) 4 8-10 by mouth 2 Óscar es MG tablet 13:35: (two) Medical 16 times Center daily. simvastatin Yes 20mg QD Take [address] [facility] (ZOCOR) 20 8-10 by [facility] MG tablet 13:35: nightly. Medi leta 16 [place] tamsulosin Yes .4mg QD Take 0.[address] [facility] (FLOMAX) 8-10 mg by [facility] 0.4 mg Cap 13:35: mouth Medica l 24 hr 16 daily. Center capsule finasteride Yes 5mg QD Take [address] (PROSCAR) 5 8-10 by mouth [facility] mg tablet 13:35: nightly . Med ical 16 Center fluticasone Yes 1{spray QD [address] [facility] propionate 8-10 } Nasal [facility] (FLONASE) 13:35: route Medical 50 16 daily. Center mcg/actuati on nasal spray aspirin 325 Yes 325mg QD Take [address] MG tablet 8-10 mg by [facility] 13:35: mouth Medical 16 nightly . Center magnesium Yes 500mg Q.5D Take [address] [facility] [address] gluconate 8-10 mg by [facility] (MAGONATE) 13:35: mouth 2 Medi leta 27.5 mg 16 (two) [facility] magne- sium times (500 mg) daily. tablet amLODIPine Yes 5mg QD Take [address] [facility] (NORVASC) 8-10 by [facility] 2.5 MG 13:35: daily. Medical tablet 16 [place] isosorbide 2020- No 60mg QD Take [address] [facility] mononitrate 12-10 08-10 tablet (60 [facility] (IMDUR) 60 00:00: 00:00 mg total) M edical MG 24 hr 00 :00 by mouth Center tablet daily for 90 days. diltiazem 2020- No 360mg QD Take [address] (CARDIZEM 12-09 06-29 mg [facility] [place]) 180 mg 08:41: 00:00 mouth Medic al 24 hr 09 :00 nightly. Center tablet amLODIPine 2020- No 2.5mg QD Take 2.[address] (NORVASC) 12-09 06-29 mg [facility] 2.5 MG 08:40: 00:00 mouth Medical tablet 25 :00 daily . [facility] diltiazem 2020- No 180mg QD Take [address] [facility] (CARDIZEM 12-09 08-10 tablet [facility] [place]) 180 mg 00:00: 00:00 (180 mg Med ical 24 hr 00 :00 total) by Center tablet mouth daily for 90 days. levoFLOXaci 2020- No 750mg Q24H Take [address] [facility] n 12-09 07-09 tablet [facility] (LEVAQUIN) 00:00: 23:59 (750 mg Med ical 750 MG 00 :00 total) by Center tablet mouth daily for 10 days. traMADoL 2020- No 50mg Take [address] [facility] (ULTRAM) 50 12-09 07-09 tablet (50 [facility] mg tablet 00:00: 23:59 mg total) Me dical 00 :00 by mouth Center every 12 (twelve) hours as needed for up to 10 days. Max Daily Amount: 100 mg amLODIPine 2020- No 5mg QD Take [address] (NORVASC) 12-08 by [facility] 2.5 MG 18:33: 00:00 daily. Medical tablet 16 :00 [facility] losartan-hy Yes 1{tbl} Take 1 Un phong drochloroth 4-10 tablet by ity of iazide 10:29: mouth [place] (HYZAAR) 45 daily. MD 100-25 mg Anderso per tablet [facility] multivitami Yes 1{tbl} Take 1 Un phong n 4-10 tablet by ity of (multivitam 10:29: mouth [place] in) tab 45 daily. [facility] 10mg Take 10 mg U nivers (CLARITIN) 4-10 by mouth ity o f 10 mg 10:29: as needed [place] tablet 45 for MD allergies. [facility] magnesium Yes 500mg Take 500 [facility] oxide 500 4-10 mg by ity of mg tablet 10:29: mouth [place] 45 twice MD daily. [facility] cyanocobala Yes 2500ug Take 2,500 [facility] min 4-10 mcg by ity of (vitamin 10:29: mouth [place] B-12) 1000 45 daily. MD mcg tablet [facility] losartan-hy Yes 1{tbl} Take 1 Un phong drochloroth 4-10 tablet by ity of iazide 10:29: mouth [place] (HYZAAR) 45 daily. MD 100-25 mg Anderso per tablet [facility] multivitami Yes 1{tbl} Take 1 Un phong n 4-10 tablet by ity of (multivitam 10:29: mouth [place] in) tab 45 daily. MD tablet [facility] loratadine Yes 10mg Take 10 mg [facility] nivers (CLARITIN) 4-10 by mouth ity o f 10 mg 10:29: as needed [place] tablet 45 for MD allergies. [facility] magnesium Yes 500mg Take 500 [facility] oxide 500 4-10 mg by ity of mg tablet 10:29: mouth [place] 45 twice MD daily. [facility] cyanocobala Yes 2500ug Take 2,500 [facility] min 4-10 mcg by ity of (vitamin 10:29: mouth [place] B-12) 1000 45 daily. [facility] losartan-hy Yes 1{tbl} Take 1 Un phong drochloroth 4-10 tablet by ity of iazide 10:29: mouth [place] (HYZAAR) 45 daily. 100-25 mg Anderso per tablet [facility] multivitami Yes 1{tbl} Take 1 Un phong n 4-10 tablet by ity of (multivitam 10:29: mouth [place] in) tab 45 daily. MD tablet [facility] loratadine Yes 10mg Take 10 mg U [facility]ivers (CLARITIN) 4-10 by mouth ity o f 10 mg 10:29: as needed [place] tablet 45 for MD allergies. [facility] magnesium Yes 500mg Take 500 [facility] oxide 500 4-10 mg by ity of mg tablet 10:29: mouth [place] 45 twice MD daily. [facility] cyanocobala Yes 2500ug Take 2,500 [facility] min 4-10 mcg by ity of (vitamin 10:29: mouth [place] B-12) 1000 45 daily. mcg tablet [facility] silodosin Yes 1{capsu Take 1 Uni vers (RAPAFLO) 8 2-24 le} capsule by it y of mg capsule 00:00: mouth [place] 00 daily. [facility] 1{capsu Take 1 [facility] (RAPAFLO) 8 2-24 le} capsule by it y of mg capsule 00:00: mouth [place] 00 daily. [facility] silodosin Yes 1{capsu Take 1 Uni vers (RAPAFLO) 8 2-24 le} capsule by it y of mg capsule 00:00: mouth [place] 00 daily. MD Kulkarni [facility] amLODIPine Yes 1{tbl} Take 1 Uni vers (NORVASC) 2-11 tablet by ity o f 2.5 mg 00:00: mouth [place] tablet 00 daily. [facility] dutasteride Yes 1{capsu Take 1 U nivers (AVODART) 2-11 le} capsule by ity of 0.5 mg 00:00: mouth [place] capsule 00 daily. MD Shad truong [facility] amLODIPine Yes 1{tbl} Take 1 Uni vers (NORVASC) 2-11 tablet by ity o f 2.5 mg 00:00: mouth [place] tablet 00 daily. [facility] dutasteride Yes 1{capsu Take 1 U nivers (AVODART) 2-11 le} capsule by ity of 0.5 mg 00:00: mouth [place] capsule 00 [facility]. [facility] amLOD[facility] Yes 1{tbl} Take 1 [facility] (NORVASC) 2-11 tablet by ity o f 2.5 mg 00:00: mouth [place] tablet 00 daily. MD Kulkarni [facility] dutasteride Yes 1{capsu Take 1 U nivers (AVODART) 2-11 le} capsule by ity of 0.5 mg 00:00: mouth [place] capsule 00 daily. [facility] diltiazem Yes [facility] (CARDIZEM 3-06 [place] [place]) 360 mg 00:00: [place] 24 hr 00 MD tablet [facility] diltiazem Yes [facility] (CARDIZEM 3-06 [place] [place]) 360 mg 00:00: [place] 24 hr 00 MD tablet [facility] diltiazem Yes [facility] (CARDIZEM 3-06 [facility] [place]) 360 mg 00:00: [place] 24 hr 00 MD tablet [facility] finasteride 2015-06 Yes 1{tbl} Take 1 Un phong (PROSCAR) 5 1-09 tablet by ity of mg tablet 00:00: mouth [place] 00 every MD evening. [facility] finasteride 2015-06 Yes 1{tbl} Take 1 Un phong (PROSCAR) 5 1-09 tablet by ity of mg tablet 00:00: mouth [place] 00 every MD evening. [facility] finasteride 2015-06 Yes 1{tbl} Take 1 Un phong (PROSCAR) 5 1-09 tablet by ity of mg tablet 00:00: mouth [place] 00 every MD evening. [facility] oxybutynin 2015-06 Yes 1{tbl} Take 1 Uni vers (DITROPAN) 1-05 tablet by ity of 5 mg tablet 00:00: mouth [place] 00 every MD evening. [facility] oxybutynin 2015-06 Yes 1{tbl} Take 1 [facility] (DITROPAN) 1-05 tablet by ity of 5 mg tablet 00:00: mouth [place] 00 every MD evening. [facility] oxybutynin 2015-06 Yes 1{tbl} Take 1 Uni vers (DITROPAN) 1-05 tablet by ity of 5 mg tablet 00:00: mouth [place] 00 every MD evening. [facility] tamsulosin 2015-06 Yes 1{capsu Take 1 Un phong (FLOMAX) 0-30 le} capsule by ity o f 0.4 mg 24 00:00: [place] hr capsule 00 bedtime. [facility] alexi [facility] tamsulosin 2015-06 Yes 1{capsu Take 1 Un phong (FLOMAX) 0-30 le} capsule by ity o f 0.4 mg 24 00:00: [place] hr capsule 00 bedtime. [facility] tamsulosin 2015-06 Yes 1{capsu Take 1 Un phong (FLOMAX) 0-30 le} capsule by ity o f 0.4 mg 24 00:00: [place] hr capsule 00 bedtime. [facility] simvastatin 2015-06 Yes 1{tbl} Take 1 Un phong (ZOCOR) 20 0-21 tablet by ity of mg tablet 00:00: mouth [place] 00 daily. [facility] simvastatin 2015-06 Yes 1{tbl} Take 1 Un phong (ZOCOR) 20 0-21 tablet by ity of mg tablet 00:00: mouth [place] 00 daily. MD Shad truong [facility] simvastatin 2015-06 Yes 1{tbl} Take 1 Un phong (ZOCOR) 20 0-21 tablet by ity of mg tablet 00:00: mouth [place] 00 daily. MD Shad truong [facility] levothyroxi 2015-06 Yes 1{tbl} Take 1 Un phong ne 0-13 tablet by ity of (SYNTHROID, 00:00: mouth [place] LEVOTHROID) 00 daily. 50 mcg Anderso tablet [facility] levothyroxi 2015-06 Yes 1{tbl} Take 1 Un phong ne 0-13 tablet by ity of (SYNTHROID, 00:00: mouth [place] LEVOTHROID) 00 daily. 50 mcg Anderso tablet [facility] levothyroxi 2015-06 Yes 1{tbl} Take 1 Un phong ne 0-13 tablet by ity of (SYNTHROID, 00:00: mouth [place] LEVOTHROID) 00 daily. 50 mcg Shad tablet [facility] glimepiride Yes 1{tbl} Take 1 Un phong (AMARYL) 4 9-28 tablet by ity of mg tablet 00:00: mouth [place] 00 [facility] 1{tbl} Take 1 Un phong (AMARYL) 4 9-28 tablet by ity of mg tablet 00:00: mouth [place] 00 twice MD daily. [facility] glimepiride Yes 1{tbl} Take 1 Un phong (AMARYL) 4 9-28 tablet by ity of mg tablet 00:00: mouth [place] 00 twice [place]. [place] [address] Yes 1{tbl} Take 1 Uni vers mg tablet 9-20 tablet by ity o f 00:00: mouth [place] 00 daily. MD Shad truong [facility] 50 Yes 1{tbl} Take 1 Uni vers mg tablet 9-20 tablet by ity o f 00:00: mouth [place] 00 daily. MD Kulkarni [place] [id number] Yes 1{tbl} Take 1 Uni vers mg tablet 9-20 tablet by ity o f 00:00: mouth [place] 00 daily. MD Shad truong [facility] metFORMIN Yes 1000mg 1,000 mg 2 Univers (GLUCOPHAGE 5-24 (two) ity of ) 1000 mg 00:00: times a [place] tablet 00 day with MD bro. [facility] metFORMIN 2016-0 Yes 1000mg 1,000 mg 2 Univers (GLUCOPHAGE 5-24 (two) ity of ) 1000 mg 00:00: times a [place] tablet 00 day with MD meals. [facility] metFORMIN 2016-0 Yes 1000mg 1,000 mg 2 Univers (GLUCOPHAGE 5-24 (two) ity of ) 1000 mg 00:00: times a [place] tablet 00 day with MD meals. [facility] Famotidine Famotidine No 1{table BID Famotidine 20 MG 20 MG t_at_be 20 MG dtime_a s_neede d} Januvia 100 Januvia 100 No QD Januvia MG MG 100 MG Furosemide Furosemide No 1{table QD Furosemide 40 MG 40 MG t} 40 MG Amiodarone Amiodarone No 1{table QD Amiodarone HCl 100 MG HCl 100 MG t} HCl 100 MG Simvastatin Simvastatin No 1{table QD Simvastati 20 MG 20 MG t_in_th n 20 MG e_eveni ng} Multivitami Multivitami No 1{table QD Multivitam n - n - t} in - Levothyroxi Levothyroxi No QD Levothyrox ne Sodium ne Sodium ine Sodium 88 MCG 88 MCG 88 MCG Aspir-Low Aspir-Low No 1{table QD Aspir-Low 81 MG 81 MG t} 81 MG B12 B12 No B12 Allergy Allergy No Allergy Oxybutynin Oxybutynin No 1{table QD Oxybutynin Chloride 5 Chloride 5 t} Chloride 5 MG MG MG Magnesium Magnesium No Magnesium amLODIPine amLODIPine No 1{table QD amLODIPine Besylate Besylate t} Besylate 2.5 MG 2.5 MG 2.5 MG Clopidogrel Clopidogrel No 1{table QD Clopidogre Bisulfate Bisulfate t} l 75 MG 75 MG Bisulfate 75 MG Tamsulosin Tamsulosin No 1{capsu BID Tamsulosin HCl 0.4 MG HCl 0.4 MG le} HCl 0.4 MG Warfarin Warfarin No 1{table QD Warfarin Sodium 5 MG Sodium 5 MG t} Sodium 5 MG Aspirin 81 Aspirin 81 No 1{table QD Aspirin 81 MG MG t} MG amLODIPine amLODIPine No 1{table QD amLODIPine Besylate 5 Besylate 5 t} Besylate 5 MG MG MG metFORMIN metFORMIN No BID metFORMIN HCl ER 500 HCl ER 500 HCl ER 500 MG MG MG Famotidine Famotidine No 1{table BID Famotidine 20 MG 20 MG t_at_be 20 MG dtime_a s_neede d} Januvia 100 Januvia 100 No QD Januvia MG MG 100 MG Furosemide Furosemide No 1{table QD Furosemide 40 MG 40 MG t} 40 MG Amiodarone Amiodarone No 1{table QD Amiodarone HCl 100 MG HCl 100 MG t} HCl 100 MG Simvastatin Simvastatin No 1{table QD Simvastati 20 MG 20 MG t_in_th n 20 MG e_eveni ng} Multivitami Multivitami No 1{table QD Multivitam n - n - t} in - Clopidogrel Clopidogrel No 1{table QD Clopidogre Bisulfate Bisulfate t} l 75 MG 75 MG Bisulfate 75 MG Aspir-Low Aspir-Low No 1{table QD Aspir-Low 81 MG 81 MG t} 81 MG B12 B12 No B12 Allergy Allergy No Allergy Oxybutynin Oxybutynin No 1{table QD Oxybutynin Chloride 5 Chloride 5 t} Chloride 5 MG MG MG Magnesium Magnesium No Magnesium amLODIPine amLODIPine No 1{table QD amLODIPine Besylate Besylate t} Besylate 2.5 MG 2.5 MG 2.5 MG Levothyroxi Levothyroxi No QD Levothyrox ne Sodium ne Sodium ine Sodium 88 MCG 88 MCG 88 MCG Tamsulosin Tamsulosin No 1{capsu BID Tamsulosin HCl 0.4 MG HCl 0.4 MG le} HCl 0.4 MG Warfarin Warfarin No 1{table QD Warfarin Sodium 5 MG Sodium 5 MG t} Sodium 5 MG Januvia 100 Januvia 100 No QD Januvia MG MG 100 MG Aspirin 81 Aspirin 81 No 1{table QD Aspirin 81 MG MG t} MG Simvastatin Simvastatin No 1{table QD Simvastati 20 MG 20 MG t_in_th n 20 MG e_eveni ng} B12 B12 No B12 metFORMIN metFORMIN No BID metFORMIN HCl ER 500 HCl ER 500 HCl ER 500 MG MG MG Allergy Allergy No Allergy Amiodarone Amiodarone No 1{table QD Amiodarone HCl 100 MG HCl 100 MG t} HCl 100 MG Multivitami Multivitami No 1{table QD Multivitam n - n - t} in - Furosemide Furosemide No 1{table QD Furosemide 40 MG 40 MG t} 40 MG Clopidogrel Clopidogrel No 1{table QD Clopidogre Bisulfate Bisulfate t} l 75 MG 75 MG Bisulfate 75 MG amLODIPine amLODIPine No 1{table QD amLODIPine Besylate Besylate t} Besylate 2.5 MG 2.5 MG 2.5 MG Aspir-Low Aspir-Low No 1{table QD Aspir-Low 81 MG 81 MG t} 81 MG Tamsulosin Tamsulosin No 1{capsu BID Tamsulosin HCl 0.4 MG HCl 0.4 MG le} HCl 0.4 MG Warfarin Warfarin No 1{table QD Warfarin Sodium 5 MG Sodium 5 MG t} Sodium 5 MG Famotidine Famotidine No 1{table BID Famotidine 20 MG 20 MG t_at_be 20 MG dtime_a s_neede d} Oxybutynin Oxybutynin No 1{table QD Oxybutynin Chloride 5 Chloride 5 t} Chloride 5 MG MG MG Levothyroxi Levothyroxi No QD Levothyrox ne Sodium ne Sodium ine Sodium 88 MCG 88 MCG 88 MCG Magnesium Magnesium No Magnesium amLODIPine amLODIPine No 1{table QD amLODIPine Besylate 5 Besylate 5 t} Besylate 5 MG MG MG Amiodarone Amiodarone No 1{table QD Amiodarone HCl 100 MG HCl 100 MG t} HCl 100 MG amLODIPine amLODIPine No 1{table QD amLODIPine Besylate Besylate t} Besylate 2.5 MG 2.5 MG 2.5 MG Levothyroxi Levothyroxi No QD Levothyrox ne Sodium ne Sodium ine Sodium 88 MCG 88 MCG 88 MCG B12 B12 No B12 Warfarin Warfarin No 1{table QD Warfarin Sodium 5 MG Sodium 5 MG t} Sodium 5 MG Magnesium Magnesium No Magnesium Oxybutynin Oxybutynin No 1{table QD Oxybutynin Chloride 5 Chloride 5 t} Chloride 5 MG MG MG Aspirin 81 Aspirin 81 No 1{table QD Aspirin 81 MG MG t} MG amLODIPine amLODIPine No 1{table QD amLODIPine Besylate 5 Besylate 5 t} Besylate 5 MG MG MG Januvia 100 Januvia 100 No QD Januvia MG MG 100 MG Tamsulosin Tamsulosin No 1{capsu BID Tamsulosin HCl 0.4 MG HCl 0.4 MG le} HCl 0.4 MG Famotidine Famotidine No 1{table BID Famotidine 20 MG 20 MG t_at_be 20 MG dtime_a s_neede d} Allergy Allergy No Allergy Clopidogrel Clopidogrel No 1{table QD Clopidogre Bisulfate Bisulfate t} l 75 MG 75 MG Bisulfate 75 MG metFORMIN metFORMIN No BID metFORMIN HCl ER 500 HCl ER 500 HCl ER 500 MG MG MG Simvastatin Simvastatin No 1{table QD Simvastati 20 MG 20 MG t_in_th n 20 MG e_eveni ng} Multivitami Multivitami No 1{table QD Multivitam n - n - t} in - Furosemide Furosemide No 1{table QD Furosemide 40 MG 40 MG t} 40 MG Aspirin 81 Aspirin 81 No 1{table QD Aspirin 81 MG MG t} MG Aspir-Low Aspir-Low No 1{table QD Aspir-Low 81 MG 81 MG t} 81 MG amLODIPine amLODIPine No 1{table QD amLODIPine Besylate 5 Besylate 5 t} Besylate 5 MG MG MG metFORMIN metFORMIN No BID metFORMIN HCl ER 500 HCl ER 500 HCl ER 500 MG MG MG Januvia 100 Januvia 100 No QD Januvia MG MG 100 MG Amiodarone Amiodarone No 1{table QD Amiodarone HCl 100 MG HCl 100 MG t} HCl 100 MG Simvastatin Simvastatin No 1{table QD Simvastati 20 MG 20 MG t_in_th n 20 MG e_eveni ng} Tamsulosin Tamsulosin No 1{capsu BID Tamsulosin HCl 0.4 MG HCl 0.4 MG le} HCl 0.4 MG Warfarin Warfarin No 1{table QD Warfarin Sodium 5 MG Sodium 5 MG t} Sodium 5 MG Famotidine Famotidine No 1{table BID Famotidine 20 MG 20 MG t_at_be 20 MG dtime_a s_neede d} Aspirin 81 Aspirin 81 No 1{table QD Aspirin 81 MG MG t} MG B12 B12 No B12 metFORMIN metFORMIN No BID metFORMIN HCl ER 500 HCl ER 500 HCl ER 500 MG MG MG Multivitami Multivitami No 1{table QD Multivitam n - n - t} in - Famotidine Famotidine No 1{table BID Famotidine 20 MG 20 MG t_at_be 20 MG dtime_a s_neede d} amLODIPine amLODIPine No 1{table QD amLODIPine Besylate 5 Besylate 5 t} Besylate 5 MG MG MG amLODIPine amLODIPine No 1{table QD amLODIPine Besylate Besylate t} Besylate 2.5 MG 2.5 MG 2.5 MG Allergy Allergy No Allergy Aspir-Low Aspir-Low No 1{table QD Aspir-Low 81 MG 81 MG t} 81 MG Magnesium Magnesium No Magnesium Oxybutynin Oxybutynin No 1{table QD Oxybutynin Chloride 5 Chloride 5 t} Chloride 5 MG MG MG Levothyroxi Levothyroxi No QD Levothyrox ne Sodium ne Sodium ine Sodium 88 MCG 88 MCG 88 MCG Levothyroxi Levothyroxi No QD Levothyrox ne Sodium ne Sodium ine Sodium 88 MCG 88 MCG 88 MCG Furosemide Furosemide No 1{table QD Furosemide 40 MG 40 MG t} 40 MG Clopidogrel Clopidogrel No 1{table QD Clopidogre Bisulfate Bisulfate t} l 75 MG 75 MG Bisulfate 75 MG Januvia 100 Januvia 100 No QD Januvia MG MG 100 MG Furosemide Furosemide No 1{table QD Furosemide 40 MG 40 MG t} 40 MG Januvia 100 Januvia 100 No QD Januvia MG MG 100 MG Amiodarone Amiodarone No 1{table QD Amiodarone HCl 100 MG HCl 100 MG t} HCl 100 MG Simvastatin Simvastatin No 1{table QD Simvastati 20 MG 20 MG t_in_th n 20 MG e_eveni ng} Tamsulosin Tamsulosin No 1{capsu BID Tamsulosin HCl 0.4 MG HCl 0.4 MG le} HCl 0.4 MG Warfarin Warfarin No 1{table QD Warfarin Sodium 5 MG Sodium 5 MG t} Sodium 5 MG Famotidine Famotidine No 1{table BID Famotidine 20 MG 20 MG t_at_be 20 MG dtime_a s_neede d} Aspirin 81 Aspirin 81 No 1{table QD Aspirin 81 MG MG t} MG Amiodarone Amiodarone No 1{table QD Amiodarone HCl 100 MG HCl 100 MG t} HCl 100 MG B12 B12 No B12 metFORMIN metFORMIN No BID metFORMIN HCl ER 500 HCl ER 500 HCl ER 500 MG MG MG Multivitami Multivitami No 1{table QD Multivitam n - n - t} in - amLODIPine amLODIPine No 1{table QD amLODIPine Besylate 5 Besylate 5 t} Besylate 5 MG MG MG amLODIPine amLODIPine No 1{table QD amLODIPine Besylate Besylate t} Besylate 2.5 MG 2.5 MG 2.5 MG Allergy Allergy No Allergy Aspir-Low Aspir-Low No 1{table QD Aspir-Low 81 MG 81 MG t} 81 MG Magnesium Magnesium No Magnesium Oxybutynin Oxybutynin No 1{table QD Oxybutynin Chloride 5 Chloride 5 t} Chloride 5 MG MG MG Levothyroxi Levothyroxi No QD Levothyrox ne Sodium ne Sodium ine Sodium 88 MCG 88 MCG 88 MCG Simvastatin Simvastatin No 1{table QD Simvastati 20 MG 20 MG t_in_th n 20 MG e_eveni ng} Levothyroxi Levothyroxi No QD Levothyrox ne Sodium ne Sodium ine Sodium 88 MCG 88 MCG 88 MCG Furosemide Furosemide No 1{table QD Furosemide 40 MG 40 MG t} 40 MG Clopidogrel Clopidogrel No 1{table QD Clopidogre Bisulfate Bisulfate t} l 75 MG 75 MG Bisulfate 75 MG Januvia 100 Januvia 100 No QD Januvia MG MG 100 MG Multivitami Multivitami No 1{table QD Multivitam n - n - t} in - Amiodarone Amiodarone No 1{table QD Amiodarone HCl 100 MG HCl 100 MG t} HCl 100 MG Simvastatin Simvastatin No 1{table QD Simvastati 20 MG 20 MG t_in_th n 20 MG e_eveni ng} Tamsulosin Tamsulosin No 1{capsu BID Tamsulosin HCl 0.4 MG HCl 0.4 MG le} HCl 0.4 MG Warfarin Warfarin No 1{table QD Warfarin Sodium 5 MG Sodium 5 MG t} Sodium 5 MG Famotidine Famotidine No 1{table BID Famotidine 20 MG 20 MG t_at_be 20 MG dtime_a s_neede d} Aspirin 81 Aspirin 81 No 1{table QD Aspirin 81 MG MG t} MG B12 B12 No B12 metFORMIN metFORMIN No BID metFORMIN HCl ER 500 HCl ER 500 HCl ER 500 MG MG MG Multivitami Multivitami No 1{table QD Multivitam n - n - t} in - amLODIPine amLODIPine No 1{table QD amLODIPine Besylate 5 Besylate 5 t} Besylate 5 MG MG MG Clopidogrel Clopidogrel No 1{table QD Clopidogre Bisulfate Bisulfate t} l 75 MG 75 MG Bisulfate 75 MG amLODIPine amLODIPine No 1{table QD amLODIPine Besylate Besylate t} Besylate 2.5 MG 2.5 MG 2.5 MG Allergy Allergy No Allergy Aspir-Low Aspir-Low No 1{table QD Aspir-Low 81 MG 81 MG t} 81 MG Magnesium Magnesium No Magnesium Oxybutynin Oxybutynin No 1{table QD Oxybutynin Chloride 5 Chloride 5 t} Chloride 5 MG MG MG Levothyroxi Levothyroxi No QD Levothyrox ne Sodium ne Sodium ine Sodium 88 MCG 88 MCG 88 MCG Levothyroxi Levothyroxi No QD Levothyrox ne Sodium ne Sodium ine Sodium 88 MCG 88 MCG 88 MCG Furosemide Furosemide No 1{table QD Furosemide 40 MG 40 MG t} 40 MG Clopidogrel Clopidogrel No 1{table QD Clopidogre Bisulfate Bisulfate t} l 75 MG 75 MG Bisulfate 75 MG Aspir-Low Aspir-Low No 1{table QD Aspir-Low 81 MG 81 MG t} 81 MG Januvia 100 Januvia 100 No QD Januvia MG MG 100 MG Amiodarone Amiodarone No 1{table QD Amiodarone HCl 100 MG HCl 100 MG t} HCl 100 MG Warfarin Warfarin No 1{table QD Warfarin Sodium 5 MG Sodium 5 MG t} Sodium 5 MG Tamsulosin Tamsulosin No 1{capsu BID Tamsulosin HCl 0.4 MG HCl 0.4 MG le} HCl 0.4 MG B12 B12 No B12 Simvastatin Simvastatin No Simvastati 20 MG 20 MG n 20 MG Famotidine Famotidine No 1{table BID Famotidine 20 MG 20 MG t_at_be 20 MG dtime_a s_neede d} Aspirin 81 Aspirin 81 No 1{table QD Aspirin 81 MG MG t} MG B12 B12 No B12 metFORMIN metFORMIN No BID metFORMIN HCl ER 500 HCl ER 500 HCl ER 500 MG MG MG Multivitami Multivitami No 1{table QD Multivitam n - n - t} in - amLODIPine amLODIPine No 1{table QD amLODIPine Besylate 5 Besylate 5 t} Besylate 5 MG MG MG amLODIPine amLODIPine No 1{table QD amLODIPine Besylate Besylate t} Besylate 2.5 MG 2.5 MG 2.5 MG Allergy Allergy No Allergy Aspir-Low Aspir-Low No 1{table QD Aspir-Low 81 MG 81 MG t} 81 MG Allergy Allergy No Allergy Magnesium Magnesium No Magnesium Oxybutynin Oxybutynin No 1{table QD Oxybutynin Chloride 5 Chloride 5 t} Chloride 5 MG MG MG Levothyroxi Levothyroxi No QD Levothyrox ne Sodium ne Sodium ine Sodium 88 MCG 88 MCG 88 MCG Levothyroxi Levothyroxi No QD Levothyrox ne Sodium ne Sodium ine Sodium 88 MCG 88 MCG 88 MCG Furosemide Furosemide No 1{table QD Furosemide 40 MG 40 MG t} 40 MG Clopidogrel Clopidogrel No 1{table QD Clopidogre Bisulfate Bisulfate t} l 75 MG 75 MG Bisulfate 75 MG Oxybutynin Oxybutynin No 1{table QD Oxybutynin Chloride 5 Chloride 5 t} Chloride 5 MG MG MG Magnesium Magnesium No Magnesium Levothyroxi Levothyroxi No QD Levothyrox ne Sodium ne Sodium ine Sodium 88 MCG 88 MCG 88 MCG amLODIPine amLODIPine No 1{table QD amLODIPine Besylate Besylate t} Besylate 2.5 MG 2.5 MG 2.5 MG Levothyroxi Levothyroxi No QD Levothyrox ne Sodium ne Sodium ine Sodium 88 MCG 88 MCG 88 MCG Warfarin Warfarin No 1{table QD Warfarin Sodium 5 MG Sodium 5 MG t} Sodium 5 MG Tamsulosin Tamsulosin No 1{capsu BID Tamsulosin HCl 0.4 MG HCl 0.4 MG le} HCl 0.4 MG Losartan Losartan No Losartan Potassium Potassium Potassium 100 MG 100 MG 100 MG Warfarin Warfarin No 1{table QD Warfarin Sodium 2 MG Sodium 2 MG t} Sodium 2 MG Aspirin 81 Aspirin 81 No 1{table QD Aspirin 81 MG MG t} MG Tamsulosin Tamsulosin No Tamsulosin HCl 0.4 MG HCl 0.4 MG HCl 0.4 MG Clopidogrel Clopidogrel No 1{table QD Clopidogre Bisulfate Bisulfate t} l 75 MG 75 MG Bisulfate 75 MG Clopidogrel Clopidogrel No Clopidogre Bisulfate Bisulfate l 75 MG 75 MG Bisulfate 75 MG Finasteride Finasteride No Finasterid 5 MG 5 MG e 5 MG Furosemide Furosemide No 1{table QD Furosemide 40 MG 40 MG t} 40 MG Simvastatin Simvastatin No Simvastati 20 MG 20 MG n 20 MG Warfarin Warfarin No 1{table QD Warfarin Sodium 5 MG Sodium 5 MG t} Sodium 5 MG Levothyroxi Levothyroxi No QD Levothyrox ne Sodium ne Sodium ine Sodium 88 MCG 88 MCG 88 MCG amLODIPine amLODIPine No 1{table QD amLODIPine Besylate Besylate t} Besylate 2.5 MG 2.5 MG 2.5 MG Amiodarone Amiodarone No 1{table QD Amiodarone HCl 100 MG HCl 100 MG t} HCl 100 MG metFORMIN metFORMIN No BID metFORMIN HCl ER 500 HCl ER 500 HCl ER 500 MG MG MG Amoxicillin Amoxicillin No 1{table BID Amoxicilli -Pot -Pot t} n-Pot Clavulanate Clavulanate Clavulanat 875-125 MG 875-125 MG e 875-125 MG Omeprazole Omeprazole No Omeprazole 20 MG 20 MG 20 MG Mupirocin 2 Mupirocin 2 No 1{appli BID Mupirocin % % cation} 2 % Januvia 100 Januvia 100 No QD Januvia MG MG 100 MG Aspirin 81 Aspirin 81 No 1{table QD Aspirin 81 MG MG t} MG Simvastatin Simvastatin No 1{table QD Simvastati 20 MG 20 MG t_in_th n 20 MG e_eveni ng} B12 B12 No B12 metFORMIN metFORMIN No BID metFORMIN HCl ER 500 HCl ER 500 HCl ER 500 MG MG MG Allergy Allergy No Allergy Amiodarone Amiodarone No 1{table QD Amiodarone HCl 100 MG HCl 100 MG t} HCl 100 MG Multivitami Multivitami No 1{table QD Multivitam n - n - t} in - Furosemide Furosemide No 1{table QD Furosemide 40 MG 40 MG t} 40 MG Clopidogrel Clopidogrel No 1{table QD Clopidogre Bisulfate Bisulfate t} l 75 MG 75 MG Bisulfate 75 MG amLODIPine amLODIPine No 1{table QD amLODIPine Besylate Besylate t} Besylate 2.5 MG 2.5 MG 2.5 MG Aspir-Low Aspir-Low No 1{table QD Aspir-Low 81 MG 81 MG t} 81 MG Tamsulosin Tamsulosin No 1{capsu BID Tamsulosin HCl 0.4 MG HCl 0.4 MG le} HCl 0.4 MG Warfarin Warfarin No 1{table QD Warfarin Sodium 5 MG Sodium 5 MG t} Sodium 5 MG Famotidine Famotidine No 1{table BID Famotidine 20 MG 20 MG t_at_be 20 MG dtime_a s_neede d} Oxybutynin Oxybutynin No 1{table QD Oxybutynin Chloride 5 Chloride 5 t} Chloride 5 MG MG MG Levothyroxi Levothyroxi No QD Levothyrox ne Sodium ne Sodium ine Sodium 88 MCG 88 MCG 88 MCG Magnesium Magnesium No Magnesium amLODIPine amLODIPine No 1{table QD amLODIPine Besylate 5 Besylate 5 t} Besylate 5 MG MG MG Amiodarone Amiodarone No 1{table QD Amiodarone HCl 100 MG HCl 100 MG t} HCl 100 MG amLODIPine amLODIPine No 1{table QD amLODIPine Besylate Besylate t} Besylate 2.5 MG 2.5 MG 2.5 MG Levothyroxi Levothyroxi No QD Levothyrox ne Sodium ne Sodium ine Sodium 88 MCG 88 MCG 88 MCG Accu-Chek Accu-Chek No 2strip( Q1D Accu-Chek [place] Guide test Guide test s) Guide test Family strips Take strips Take strips Practic 2 strips 2 strips Take 2 e every day every day strips by miscell. by miscell. every day route for route for by 90 days. 90 days. miscell. route for 90 days. B12 B12 No B12 Warfarin Warfarin No 1{table QD Warfarin Sodium 5 MG Sodium 5 MG t} Sodium 5 MG Magnesium Magnesium No Magnesium Oxybutynin Oxybutynin No 1{table QD Oxybutynin Chloride 5 Chloride 5 t} Chloride 5 MG MG MG albuterol albuterol No albuterol [place] sulfate HFA sulfate HFA sulfate Family 90 90 HFA 90 Practic mcg/actuati mcg/actuati mcg/actuat e on aerosol on aerosol ion inhaler inhaler aerosol inhaler Aspirin 81 Aspirin 81 No 1{table QD Aspirin 81 MG MG t} MG amLODIPine amLODIPine No 1{table QD amLODIPine Besylate 5 Besylate 5 t} Besylate 5 MG MG MG Januvia 100 Januvia 100 No QD Januvia MG MG 100 MG amiodarone amiodarone No amiodarone [place] 25 mg once 25 mg once 25 mg once Family a day a day a day Practic e Tamsulosin Tamsulosin No 1{capsu BID Tamsulosin HCl 0.4 MG HCl 0.4 MG le} HCl 0.4 MG Famotidine Famotidine No 1{table BID Famotidine 20 MG 20 MG t_at_be 20 MG dtime_a s_neede d} Allergy Allergy No Allergy Clopidogrel Clopidogrel No 1{table QD Clopidogre Bisulfate Bisulfate t} l 75 MG 75 MG Bisulfate 75 MG metFORMIN metFORMIN No BID metFORMIN HCl ER 500 HCl ER 500 HCl ER 500 MG MG MG amlodipine amlodipine No amlodipine [place] 2.5 mg 2.5 mg 2.5 mg Family tablet one tablet one tablet one Practic at night at night at night e Simvastatin Simvastatin No 1{table QD Simvastati 20 MG 20 MG t_in_th n 20 MG e_eveni ng} Multivitami Multivitami No 1{table QD Multivitam n - n - t} in - Furosemide Furosemide No 1{table QD Furosemide 40 MG 40 MG t} 40 MG amlodipine amlodipine No amlodipine [facility] 5 mg tablet 5 mg tablet 5 mg F amily one in the one in the tablet one Practic morning morning in the e morning Aspir-Low Aspir-Low No 1{table QD Aspir-Low 81 MG 81 MG t} 81 MG aspirin 81 aspirin 81 No aspirin 81 [place] mg once a mg once a mg once a Family day day day Practic e clopidogrel clopidogrel No clopidogre [facility] 75 mg 75 mg l 75 mg Family tablet Take tablet Take tablet Practic 1 tablet 1 tablet Take 1 e every day every day tablet by oral by oral every day route. route. by oral route. famotidine famotidine No 1 BID famotidine [facility] 20 mg 20 mg 20 mg Family tablet Take tablet Take tablet Practic 1 tablet 1 tablet Take 1 e twice a day twice a day tablet by oral by oral twice a route. route. day by oral route. finasteride finasteride No finasterid [facility] 5 mg tablet 5 mg tablet e 5 mg Family one at one at tablet one Pract ic night night at night e furosemide furosemide No furosemide [facility] 40 mg 40 mg 40 mg Family tablet Take tablet Take tablet Practic 1 tablet 1 tablet Take 1 e every day every day tablet by oral by oral every day route. route. by oral route. Januvia 100 Januvia 100 No 1 Q1D Januvia [place] mg tablet mg tablet 100 mg Fam tu Take 1 Take 1 tablet Practic tablet tablet Take 1 e every day every day tablet by oral by oral every day route for route for by oral 90 days. 90 days. route for 90 days. levothyroxi levothyroxi No levothyrox [facility] ne 100 mcg ne 100 mcg ine 100 Family tablet Take tablet Take mcg tablet Practic 1 tablet 1 tablet Take 1 e every day every day tablet by oral by oral every day route. route. by oral route. losartan losartan No 1 Q1D losartan Yayo armando 100 mg 100 mg 100 mg Family tablet Take tablet Take tablet Practic 1 tablet 1 tablet Take 1 e every day every day tablet by oral by oral every day route. route. by oral route. metformin metformin No 1 BID metformin [place] ER 1,000 mg ER 1,000 mg ER 1,000 Family tablet,exte tablet,exte mg P ractic nded nded tablet,ext e release release ended 24hr Take 1 24hr Take 1 release tablet tablet 24hr Take twice a day twice a day 1 tablet by oral by oral twice a route with route with day by meals for meals for oral route 90 days. 90 days. with meals for 90 days. simvastatin simvastatin No simvastati [facility] 20 mg 20 mg n 20 mg Family tablet one tablet one tablet one Practic at bedtime at bedtime at bedtime e tamsulosin tamsulosin No tamsulosin [facility] 0.4 mg 0.4 mg 0.4 mg Family capsule capsule capsule Prac Take 1 Take 1 Take 1 e capsule capsule capsule twice a day twice a day twice a by oral by oral day by route. route. oral route. warfarin 4 warfarin 4 No warfarin 4 [place] mg tablet mg tablet mg tablet [facility] tuesday Practi c e tuesday and tuesday and tuesday and tuesday bedtime bedtime bedtime warfarin 5 warfarin 5 No warfarin 5 [place] mg tablet mg tablet mg tablet [facility] tuesday Practic tuesday e and tuesday and tuesday and tuesday one at one at one at bedtime bedtime bedtime Jardiance Jardiance No Jardiance [place] 25 mg 25 mg 25 mg [facility] tablet tablet tablet [facility] levothyroxi levothyroxi No levothyrox [place] ne 88 mcg ne 88 mcg ine 88 mcg [facility] tablet tablet tablet [facility] losartan losartan No losartan [facility] J st[facility] 100 mg 100 mg 100 mg [facility] tablet tablet tablet [facility] metformin metformin No metformin [place] 1,000 mg 1,000 mg 1,000 mg Met ro tablet tablet tablet Urology metoprolol metoprolol No 1 BID metoprolol [place] tartrate 50 tartrate 50 tartrate [facility] mg tablet mg tablet 50 mg Urol ogy Take 1 Take 1 tablet tablet tablet Take 1 twice a day twice a day tablet by oral by oral twice a route. route. day by oral route. mupirocin 2 mupirocin 2 No mupirocin [place] % topical % topical 2 % [facility] ointment ointment topical Urol ogy ointment nitroglycer nitroglycer No nitroglyce [place] in 0.4 mg in 0.4 mg rin 0.4 mg [facility] sublingual sublingual sublingual [facility] tablet tablet tablet Pyridium Pyridium No 1 TID Pyridium [facility] J st[facility] 200 mg 200 mg 200 mg [facility] tablet Take tablet Take tablet [facility] 1 tablet 3 1 tablet 3 Take 1 times a day times a day tablet 3 by oral by oral times a route as route as day by needed for needed for oral route 10 days. 10 days. as needed for 10 days. simvastatin simvastatin No simvastati [place] 20 mg 20 mg n 20 mg [facility] tablet tablet tablet [facility] tamsulosin tamsulosin No tamsulosin [place] 0.4 mg 0.4 mg 0.4 mg [facility] capsule capsule capsule Urolog y Take 2 Take 2 Take 2 capsules capsules capsules every day every day every day by oral by oral by oral route for route for route for 90 days. 90 days. 90 days. warfarin warfarin No warfarin [facility] J st[facility] 7.5 mg 7.5 mg 7.5 mg [facility] tablet tablet tablet [facility] amiodarone amiodarone No amiodarone [place] 200 mg 200 mg 200 mg [facility] tablet tablet tablet [facility] cefdinir cefdinir No cefdinir [facility] 300 mg 300 mg 300 mg [facility] capsule capsule capsule Urolog y clopidogrel clopidogrel No clopidogre [place] 75 mg 75 mg l 75 mg [facility] tablet tablet tablet [facility] famotidine famotidine No 1 BID famotidine [place] 20 mg 20 mg 20 mg [facility] tablet Take tablet Take tablet [facility] 1 tablet 1 tablet Take 1 twice a day twice a day tablet by oral by oral twice a route. route. day by oral route. finasteride finasteride No finasterid [place] 5 mg tablet 5 mg tablet e 5 mg [facility] TAKE ONE TAKE ONE tablet Urolo gy TABLET BY TABLET BY TAKE ONE MOUTH DAILY MOUTH DAILY TABLET BY MOUTH DAILY furosemide furosemide No furosemide [place] 40 mg 40 mg 40 mg [facility] tablet tablet tablet [facility] imiquimod 5 imiquimod 5 No imiquimod [place] % topical % topical 5 % [facility] cream cream topical [facility] packet packet cream packet isosorbide isosorbide No isosorbide [place] mononitrate mononitrate mononitrat [facility] ER 60 mg ER 60 mg e ER 60 mg U rology tablet,exte tablet,exte tablet,ext nded nded ended release 24 release 24 release 24 hr hr hr Januvia 100 Januvia 100 No Januvia [place] mg tablet mg tablet 100 mg Met ro tablet Urology Jardiance Jardiance No Jardiance [place] 25 mg 25 mg 25 mg [facility] tablet tablet tablet [facility] levothyroxi levothyroxi No levothyrox [place] ne 88 mcg ne 88 mcg ine 88 mcg [facility] tablet tablet tablet [facility] losartan losartan No losartan [facility] J [facility] 100 mg 100 mg 100 mg [facility] tablet tablet tablet [facility] metformin metformin No metformin [place] 1,000 mg 1,000 mg 1,000 mg Met ro tablet tablet tablet Urology metoprolol metoprolol No 1 BID metoprolol [place] tartrate 50 tartrate 50 tartrate [facility] mg tablet mg tablet 50 mg Urol ogy Take 1 Take 1 tablet tablet tablet Take 1 twice a day twice a day tablet by oral by oral twice a route. route. day by oral route. mupirocin 2 mupirocin 2 No mupirocin [place] % topical % topical 2 % [facility] ointment ointment topical Urol ogy ointment nitroglycer nitroglycer No nitroglyce [place] in 0.4 mg in 0.4 mg rin 0.4 mg [facility] sublingual sublingual sublingual [facility] tablet tablet tablet Pyridium Pyridium No 1 TID Pyridium [facility] J st[place] 200 mg 200 mg 200 mg [facility] tablet Take tablet Take tablet [facility] 1 tablet 3 1 tablet 3 Take 1 times a day times a day tablet 3 by oral by oral times a route as route as day by needed for needed for oral route 10 days. 10 days. as needed for 10 days. simvastatin simvastatin No simvastati [place] 20 mg 20 mg n 20 mg [facility] tablet tablet tablet [facility] tamsulosin tamsulosin No tamsulosin [place] 0.4 mg 0.4 mg 0.4 mg [facility] capsule capsule capsule Urolog y Take 2 Take 2 Take 2 capsules capsules capsules every day every day every day by oral by oral by oral route for route for route for 90 days. 90 days. 90 days. warfarin warfarin No warfarin [facility] J st[facility] 7.5 mg 7.5 mg 7.5 mg [facility] tablet tablet tablet [facility] amiodarone amiodarone No amiodarone [place] 200 mg 200 mg 200 mg [facility] tablet tablet tablet [facility] amlodipine amlodipine No amlodipine [place] 2.5 mg 2.5 mg 2.5 mg [facility] tablet tablet tablet [facility] clopidogrel clopidogrel No clopidogre [place] 75 mg 75 mg l 75 mg [facility] tablet tablet tablet [facility] famotidine famotidine No 1 BID famotidine [place] 20 mg 20 mg 20 mg [facility] tablet Take tablet Take tablet [facility] 1 tablet 1 tablet Take 1 twice a day twice a day tablet by oral by oral twice a route. route. day by oral route. finasteride finasteride No finasterid [place] 5 mg tablet 5 mg tablet e 5 mg [facility] TAKE ONE TAKE ONE tablet Urolo gy TABLET BY TABLET BY TAKE ONE MOUTH DAILY MOUTH DAILY TABLET BY MOUTH DAILY furosemide furosemide No furosemide [place] 40 mg 40 mg 40 mg [facility] tablet tablet tablet [facility] imiquimod 5 imiquimod 5 No imiquimod [place] % topical % topical 5 % [facility] cream cream topical [facility] packet packet cream packet isosorbide isosorbide No isosorbide [place] mononitrate mononitrate mononitrat [facility] ER 60 mg ER 60 mg e ER 60 mg U rology tablet,exte tablet,exte tablet,ext nded nded ended release 24 release 24 release 24 hr hr hr Jardiance Jardiance No Jardiance [place] 25 mg 25 mg 25 mg [facility] tablet tablet tablet [facility] levothyroxi levothyroxi No levothyrox [place] ne 88 mcg ne 88 mcg ine 88 mcg [facility] tablet tablet tablet [facility] losartan losartan No losartan [facility] 100 mg 100 mg 100 mg [facility] tablet tablet tablet [facility] metformin metformin No metformin [place] 1,000 mg 1,000 mg 1,000 mg Met ro tablet tablet tablet Urology metoprolol metoprolol No metoprolol [place] tartrate 25 tartrate 25 tartrate [facility] mg tablet mg tablet 25 mg Urol ogy tablet mupirocin 2 mupirocin 2 No mupirocin [place] % topical % topical 2 % [facility] ointment ointment topical Urol ogy ointment simvastatin simvastatin No simvastati [place] 20 mg 20 mg n 20 mg [facility] tablet tablet tablet [facility]rology SSD 1 % SSD 1 % No SSD 1 % [place] topical topical topical [facility] cream cream cream [facility] tamsulosin tamsulosin No tamsulosin [place] 0.4 mg 0.4 mg 0.4 mg [facility] capsule capsule capsule Urolog y TAKE 2 TAKE 2 TAKE 2 CAPSULES BY CAPSULES BY CAPSULES MOUTH EVERY MOUTH EVERY BY MOUTH NIGHT AT NIGHT AT EVERY BEDTIME BEDTIME NIGHT AT BEDTIME triamcinolo triamcinolo No triamcinol [place] ne ne one [facility] acetonide acetonide acetonide [facility] 0.025 % 0.025 % 0.025 % topical topical topical cream cream cream warfarin 6 warfarin 6 No warfarin 6 [place] mg tablet mg tablet mg tablet [facility] amlodipine amlodipine No amlodipine [place] 2.5 mg 2.5 mg 2.5 mg [facility] tablet tablet tablet [facility] cefdinir cefdinir No cefdinir [facility] 300 mg 300 mg 300 mg [facility] capsule capsule capsule Urolog y cephalexin cephalexin No cephalexin [place] 500 mg 500 mg 500 mg [facility] capsule capsule capsule Urolog y clopidogrel clopidogrel No clopidogre [place] 75 mg 75 mg l 75 mg [facility] tablet tablet tablet [facility] famotidine famotidine No famotidine [place] 20 mg 20 mg 20 mg [facility] tablet Take tablet Take tablet [facility] 1 tablet 1 tablet Take 1 twice a day twice a day tablet by oral by oral twice a route. route. day by oral route. finasteride finasteride No finasterid [place] 5 mg tablet 5 mg tablet e 5 mg [facility] TAKE ONE TAKE ONE tablet Urolo gy TABLET BY TABLET BY TAKE ONE MOUTH DAILY MOUTH DAILY TABLET BY MOUTH DAILY levothyroxi levothyroxi No levothyrox [place] ne 88 mcg ne 88 mcg ine 88 mcg [facility] tablet tablet tablet [facility] losartan losartan No losartan [facility] J st[place] 100 mg 100 mg 100 mg [facility] tablet tablet tablet [facility] metformin metformin No metformin [place] 1,000 mg 1,000 mg 1,000 mg Met ro tablet tablet tablet Urology metformin metformin No metformin [place] ER 500 mg ER 500 mg ER 500 mg [facility] tablet,exte tablet,exte tablet,ext [facility] nded nded ended release 24 release 24 release 24 hr hr hr metoclopram metoclopram No metoclopra [place] ronnell 10 mg ronnell 10 mg mide 10 mg [facility] tablet tablet tablet [facility] nitroglycer nitroglycer No nitroglyce [place] in 0.4 mg in 0.4 mg rin 0.4 mg [facility] sublingual sublingual sublingual [facility] tablet tablet tablet omeprazole omeprazole No omeprazole [place] 20 mg 20 mg 20 mg [facility] capsule,del capsule,del capsule,de [facility] ayed ayed layed release release release simvastatin simvastatin No simvastati [place] 20 mg 20 mg n 20 mg [facility] tablet tablet tablet U[facility] sodium,pota sodium,pota No sodium,pot [place] ssium,mag ssium,mag assium,mag [facility] sulfates sulfates sulfates Uro logy 17.5 17.5 17.5 gram-3.13 gram-3.13 gram-3.13 gram-1.6 gram-1.6 gram-1.6 gram oral gram oral gram oral soln soln soln SSD 1 % SSD 1 % No SSD 1 % [place] n topical topical topical [facility] cream cream cream [facility] tamsulosin tamsulosin No tamsulosin [place] 0.4 mg 0.4 mg 0.4 mg [facility] capsule capsule capsule Urolog y TAKE 2 TAKE 2 TAKE 2 CAPSULES BY CAPSULES BY CAPSULES MOUTH EVERY MOUTH EVERY BY MOUTH NIGHT AT NIGHT AT EVERY BEDTIME BEDTIME NIGHT AT BEDTIME triamcinolo pedroamcinolo No triamcinol [place] ne ne one [facility] acetonide acetonide acetonide Urology 0.1 % 0.1 % 0.1 % topical topical topical cream cream cream warfarin 2 warfarin 2 No warfarin 2 [place] mg tablet mg tablet mg tablet [facility] warfarin 5 warfarin 5 No warfarin 5 [place] mg tablet mg tablet mg tablet [facility] warfarin 6 warfarin 6 No warfarin 6 [place] mg tablet mg tablet mg tablet [facility] acetaminoph acetaminoph No acetaminop [place] en 300 en 300 hen 300 [facility] mg-codeine mg-codeine mg-codeine U[facility] 30 mg 30 mg 30 mg tablet tablet tablet albuterol albuterol No albuterol [place] sulfate HFA sulfate HFA sulfate [facility] 90 90 HFA 90 Urology mcg/actuati mcg/actuati mcg/actuat on aerosol on aerosol ion inhaler inhaler aerosol inhaler amiodarone amiodarone No amiodarone [place] 200 mg 200 mg 200 mg [facility] tablet tablet tablet Urology amlodipine amlodipine No amlodipine [place] 2.5 mg 2.5 mg 2.5 mg [facility] tablet tablet tablet U[facility] amlodipine amlodipine No amlodipine [place] 5 mg tablet 5 mg tablet 5 mg M etro tablet Urology cefadroxil cefadroxil No cefadroxil [place] 500 mg 500 mg 500 mg [facility] capsule capsule capsule Urolog y clopidogrel clopidogrel No clopidogre [place] 75 mg 75 mg l 75 mg [facility] tablet tablet tablet [facility] digoxin 250 digoxin 250 No digoxin [place] mcg (0.25 mcg (0.25 250 mcg Me tro mg) tablet mg) tablet (0.25 mg) Urology tablet famotidine famotidine No famotidine [place] 20 mg 20 mg 20 mg [facility] tablet tablet tablet Urology finasteride finasteride No finasterid [place] 5 mg tablet 5 mg tablet e 5 mg [facility] TAKE ONE TAKE ONE tablet Urolo gy TABLET BY TABLET BY TAKE ONE MOUTH DAILY MOUTH DAILY TABLET BY MOUTH DAILY Flomax 0.4 Flomax 0.4 No 2capsul Q1D Flomax 0.4 [place] mg capsule mg capsule e(s) mg capsule [facility] Take 2 Take 2 Take 2 [facility] capsules capsules capsules every day every day every day by oral by oral by oral route for route for route for 90 days. 90 days. 90 days. fluticasone fluticasone No fluticason [place] propionate propionate e Met ro 50 50 propionate Urology mcg/actuati mcg/actuati 50 on nasal on nasal mcg/actuat spray,suspe spray,suspe ion nasal nsion nsion spray,susp ension furosemide furosemide No furosemide [place] 40 mg 40 mg 40 mg [facility] tablet tablet tablet Urology glimepiride glimepiride No glimepirid [place] 4 mg tablet 4 mg tablet e 4 mg [facility] tablet [facility] hydroxychlo hydroxychlo No hydroxychl [place] roquine 200 roquine 200 oroquine [facility] mg tablet mg tablet 200 mg Uro logy tablet imiquimod 5 imiquimod 5 No imiquimod [place] % topical % topical 5 % [facility] cream cream topical [facility] packet packet cream packet isosorbide isosorbide No isosorbide [place] mononitrate mononitrate mononitrat [facility] ER 60 mg ER 60 mg e ER 60 mg U rology tablet,exte tablet,exte tablet,ext nded nded ended release 24 release 24 release 24 hr hr hr Januvia 100 Januvia 100 No Januvia Noriega mg tablet mg tablet 100 mg Met ro tablet Urology levothyroxi levothyroxi No levothyrox [place] ne 100 mcg ne 100 mcg ine 100 [facility] tablet tablet mcg tablet Urolo gy losartan losartan No losartan Juan J ston 100 mg 100 mg 100 mg [facility] tablet tablet tablet Urology metformin metformin No metformin [place] 1,000 mg 1,000 mg 1,000 mg Met ro tablet tablet tablet Urology metoprolol metoprolol No metoprolol [place] tartrate 50 tartrate 50 tartrate [facility] mg tablet mg tablet 50 mg Urol ogy tablet nitroglycer nitroglycer No nitroglyce [place] in 0.4 mg in 0.4 mg rin 0.4 mg [facility] sublingual sublingual sublingual U[facility] tablet tablet tablet oxybutynin oxybutynin No oxybutynin [place] chloride 5 chloride 5 chloride 5 [facility] mg tablet mg tablet mg tablet Urology TAKE ONE TAKE ONE TAKE ONE TABLET BY TABLET BY TABLET BY MOUTH AT MOUTH AT MOUTH AT BEDTIME BEDTIME BEDTIME prednisone prednisone No prednisone [place] 10 mg 10 mg 10 mg [facility] tablet tablet tablet Urology simvastatin simvastatin No simvastati [place] 20 mg 20 mg n 20 mg [facility] tablet tablet tablet Urology tramadol 50 tramadol 50 No tramadol [place] mg tablet mg tablet 50 mg Metr o tablet Urology warfarin 5 warfarin 5 No warfarin 5 [place] mg tablet mg tablet mg tablet [facility] warfarin 6 warfarin 6 No warfarin 6 [place] mg tablet mg tablet mg tablet [facility] amiodarone amiodarone No amiodarone [place] 200 mg 200 mg 200 mg [facility] tablet tablet tablet Urology clopidogrel clopidogrel No clopidogre [place] 75 mg 75 mg l 75 mg [facility] tablet tablet tablet Urology famotidine famotidine No 1 BID famotidine [place] 20 mg 20 mg 20 mg [facility] tablet Take tablet Take tablet Urology 1 tablet 1 tablet Take 1 twice a day twice a day tablet by oral by oral twice a route. route. day by oral route. finasteride finasteride No finasterid [place] 5 mg tablet 5 mg tablet e 5 mg [facility] TAKE ONE TAKE ONE tablet Urolo gy TABLET BY TABLET BY TAKE ONE MOUTH DAILY MOUTH DAILY TABLET BY MOUTH DAILY furosemide furosemide No furosemide [place] 40 mg 40 mg 40 mg [facility] tablet tablet tablet Urology imiquimod 5 imiquimod 5 No imiquimod [place] % topical % topical 5 % [facility] cream cream topical [facility] packet packet cream packet isosorbide isosorbide No isosorbide [place] mononitrate mononitrate mononitrat [facility] ER 60 mg ER 60 mg e ER 60 mg U rology tablet,exte tablet,exte tablet,ext nded nded ended release 24 release 24 release 24 hr hr hr Januvia 100 Januvia 100 No Januvia [place] mg tablet mg tablet 100 mg Met ro tablet Urology Januvia 100 Januvia 100 No QD Januvia MG MG 100 MG Aspirin 325 Aspirin 325 No 1{table QD Aspirin MG MG t} 325 MG amLODIPine amLODIPine No 1{table QD amLODIPine Besylate 5 Besylate 5 t} Besylate 5 MG MG MG Magnesium Magnesium No Magnesium Warfarin Warfarin No 1{table QD Warfarin Sodium 5 MG Sodium 5 MG t} Sodium 5 MG metFORMIN metFORMIN No BID metFORMIN HCl ER 500 HCl ER 500 HCl ER 500 MG MG MG Oxybutynin Oxybutynin No 1{table QD Oxybutynin Chloride 5 Chloride 5 t} Chloride 5 MG MG MG Simvastatin Simvastatin No 1{table QD Simvastati 20 MG 20 MG t_in_th n 20 MG e_eveni ng} Amiodarone Amiodarone No 1{table QD Amiodarone HCl 100 MG HCl 100 MG t} HCl 100 MG amLODIPine amLODIPine No 1{table QD amLODIPine Besylate Besylate t} Besylate 2.5 MG 2.5 MG 2.5 MG Allergy Allergy No Allergy Famotidine Famotidine No 1{table BID Famotidine 20 MG 20 MG t_at_be 20 MG dtime_a s_neede d} Clopidogrel Clopidogrel No 1{table QD Clopidogre Bisulfate Bisulfate t} l 75 MG 75 MG Bisulfate 75 MG Multivitami Multivitami No 1{table QD Multivitam n - n - t} in - Aspir-Low Aspir-Low No 1{table QD Aspir-Low 81 MG 81 MG t} 81 MG Tamsulosin Tamsulosin No 1{capsu BID Tamsulosin HCl 0.4 MG HCl 0.4 MG le} HCl 0.4 MG Levothyroxi Levothyroxi No QD Levothyrox ne Sodium ne Sodium ine Sodium 100 MCG 100 MCG 100 MCG B12 B12 No B12 Furosemide Furosemide No 1{table QD Furosemide 40 MG 40 MG t} 40 MG Januvia 100 Januvia 100 No QD Januvia MG MG 100 MG Aspirin 81 Aspirin 81 No 1{table QD Aspirin 81 MG MG t} MG Amiodarone Amiodarone No 1{table QD Amiodarone HCl 100 MG HCl 100 MG t} HCl 100 MG B12 B12 No B12 metFORMIN metFORMIN No BID metFORMIN HCl ER 500 HCl ER 500 HCl ER 500 MG MG MG Allergy Allergy No Allergy Simvastatin Simvastatin No 1{table QD Simvastati 20 MG 20 MG t_in_th n 20 MG e_eveni ng} Multivitami Multivitami No 1{table QD Multivitam n - n - t} in - Furosemide Furosemide No 1{table QD Furosemide 40 MG 40 MG t} 40 MG Levothyroxi Levothyroxi No QD Levothyrox ne Sodium ne Sodium ine Sodium 88 MCG 88 MCG 88 MCG amLODIPine amLODIPine No 1{table QD amLODIPine Besylate Besylate t} Besylate 2.5 MG 2.5 MG 2.5 MG Aspir-Low Aspir-Low No 1{table QD Aspir-Low 81 MG 81 MG t} 81 MG Tamsulosin Tamsulosin No 1{capsu BID Tamsulosin HCl 0.4 MG HCl 0.4 MG le} HCl 0.4 MG Warfarin Warfarin No 1{table QD Warfarin Sodium 5 MG Sodium 5 MG t} Sodium 5 MG Famotidine Famotidine No 1{table BID Famotidine 20 MG 20 MG t_at_be 20 MG dtime_a s_neede d} Oxybutynin Oxybutynin No 1{table QD Oxybutynin Chloride 5 Chloride 5 t} Chloride 5 MG MG MG Clopidogrel Clopidogrel No 1{table QD Clopidogre Bisulfate Bisulfate t} l 75 MG 75 MG Bisulfate 75 MG Magnesium Magnesium No Magnesium amLODIPine amLODIPine No 1{table QD amLODIPine Besylate 5 Besylate 5 t} Besylate 5 MG MG MG Januvia 100 Januvia 100 No QD Januvia MG MG 100 MG Aspirin 81 Aspirin 81 No 1{table QD Aspirin 81 MG MG t} MG Amiodarone Amiodarone No 1{table QD Amiodarone HCl 100 MG HCl 100 MG t} HCl 100 MG B12 B12 No B12 metFORMIN metFORMIN No BID metFORMIN HCl ER 500 HCl ER 500 HCl ER 500 MG MG MG Allergy Allergy No Allergy Simvastatin Simvastatin No 1{table QD Simvastati 20 MG 20 MG t_in_th n 20 MG e_eveni ng} Multivitami Multivitami No 1{table QD Multivitam n - n - t} in - Furosemide Furosemide No 1{table QD Furosemide 40 MG 40 MG t} 40 MG Levothyroxi Levothyroxi No QD Levothyrox ne Sodium ne Sodium ine Sodium 88 MCG 88 MCG 88 MCG amLODIPine amLODIPine No 1{table QD amLODIPine Besylate Besylate t} Besylate 2.5 MG 2.5 MG 2.5 MG Aspir-Low Aspir-Low No 1{table QD Aspir-Low 81 MG 81 MG t} 81 MG Tamsulosin Tamsulosin No 1{capsu BID Tamsulosin HCl 0.4 MG HCl 0.4 MG le} HCl 0.4 MG Warfarin Warfarin No 1{table QD Warfarin Sodium 5 MG Sodium 5 MG t} Sodium 5 MG Famotidine Famotidine No 1{table BID Famotidine 20 MG 20 MG t_at_be 20 MG dtime_a s_neede d} Oxybutynin Oxybutynin No 1{table QD Oxybutynin Chloride 5 Chloride 5 t} Chloride 5 MG MG MG Clopidogrel Clopidogrel No 1{table QD Clopidogre Bisulfate Bisulfate t} l 75 MG 75 MG Bisulfate 75 MG Magnesium Magnesium No Magnesium amLODIPine amLODIPine No 1{table QD amLODIPine Besylate 5 Besylate 5 t} Besylate 5 MG MG MG Aspirin 81 Aspirin 81 No 1{table QD Aspirin 81 MG MG t} MG amLODIPine amLODIPine No 1{table QD amLODIPine Besylate 5 Besylate 5 t} Besylate 5 MG MG MG metFORMIN metFORMIN No BID metFORMIN HCl ER 500 HCl ER 500 HCl ER 500 MG MG MG Immunizations Ordered Immunization Filled Immunization Date Status Commen ts Source Name Name FLUZONE HIGH DOSE FLUZONE HIGH DOSE 2022-04-12 Completed [facility] OVER [facility] OVER 65 11:16:00 - [facility] FLUZONE HIGH DOSE FLUZONE HIGH DOSE 2022-04-12 Completed [facility] OVER 65 OVER 65 11:16:00 - [facility] FLUZONE HIGH DOSE FLUZONE HIGH DOSE 2022-04-12 Completed [facility] OVER 65 OVER 65 11:16:00 - [facility] FLUZONE HIGH DOSE FLUZONE HIGH DOSE 2022-04-12 Completed [facility] OVER 65 OVER 65 11:16:00 - [facility] FLUZONE HIGH DOSE FLUZONE HIGH DOSE 2022-04-12 Completed [facility] OVER 65 OVER 65 11:16:00 - [facility] FLUZONE HIGH DOSE FLUZONE HIGH DOSE 2021-06-12 Completed [facility] OVER 65 OVER 65 10:56:00 - [facility] Prevnar 13 (PCV13) Prevnar 13 (PCV13) 2021-06-12 [facility]pleted [facility] 10:56:00 - [facility] FLUZONE HIGH DOSE FLUZONE HIGH DOSE 2021-06-12 Completed [facility] OVER 65 OVER 65 10:56:00 - [facility] Prevnar 13 (PCV13) Prevnar 13 (PCV13) 2021-06-12 [facility]pleted [facility] 10:56:00 - [facility] FLUZONE HIGH DOSE FLUZONE HIGH DOSE 2021-06-12 Completed [facility] OVER 65 OVER 65 10:56:00 - [facility] Prevnar 13 (PCV13) Prevnar 13 (PCV13) 2021-06-12 Completed [facility] 10:56:00 - [facility] FLUZONE HIGH DOSE FLUZONE HIGH DOSE 2021-06-12 Completed [facility] OVER 65 OVER 65 10:56:00 - [facility] Prevnar 13 (PCV13) Prevnar 13 (PCV13) 2021-06-12 Completed [facility] 10:56:00 - [facility] FLUZONE HIGH DOSE FLUZONE HIGH DOSE 2021-06-12 Completed [facility] OVER 65 OVER 65 10:56:00 - [facility] Prevnar 13 (PCV13) Prevnar 13 (PCV13) 2021-06-12 Completed [facility] 10:56:00 - [facility] FLUZONE HIGH DOSE FLUZONE HIGH DOSE 2021-06-12 Completed [facility] OVER 65 OVER 65 10:56:00 - [facility] Prevnar 13 (PCV13) Prevnar 13 (PCV13) 2021-06-12 Completed [facility] 10:56:00 - [facility] FLUZONE HIGH DOSE FLUZONE HIGH DOSE 2021-06-12 Completed [facility] OVER 65 OVER 65 10:56:00 - [facility] Prevnar 13 (PCV13) Prevnar 13 (PCV13) 2021-06-12 Completed [facility] 10:56:00 [facility] FLUZONE HIGH DOSE FLUZONE HIGH DOSE 2021-06-12 Completed [facility] OVER 65 OVER 65 10:56:00 - [facility] Prevnar 13 (PCV13) Prevnar 13 (PCV13) 2021-06-12 Completed [facility] 10:56:00 - [facility] FLUZONE HIGH DOSE FLUZONE HIGH DOSE 2021-06-12 Completed [facility] OVER 65 OVER 65 10:56:00 - [facility] Prevnar 13 (PCV13) Prevnar 13 (PCV13) 2021-06-12 Completed [facility] 10:56:00 - [facility] FLUZONE HIGH DOSE FLUZONE HIGH DOSE 2021-06-12 Completed [facility] OVER 65 OVER 65 10:56:00 - [facility] Prevnar 13 (PCV13) Prevnar 13 (PCV13) 2021-06-12 Completed [facility] 10:56:00 - [facility] FLUZONE HIGH DOSE FLUZONE HIGH DOSE 2021-06-12 Completed [facility] OVER 65 OVER 65 10:56:00 - [facility] Prevnar 13 (PCV13) Prevnar 13 (PCV13) 2021-06-12 Completed [facility] 10:56:00 - [facility] FLUZONE HIGH DOSE FLUZONE HIGH DOSE 2021-06-12 Completed [facility] OVER 65 OVER 65 10:56:00 - [facility] Prevnar 13 (PCV13) Prevnar 13 (PCV13) 2021-06-12 Completed [facility] 10:56:00 - [facility] FLUZONE HIGH DOSE FLUZONE HIGH DOSE 2021-06-12 Completed [facility] OVER 65 OVER 65 10:56:00 - [facility] Prevnar 13 (PCV13) Prevnar 13 (PCV13) 2021-06-12 Completed [facility] 10:56:00 - [facility] FLUZONE HIGH DOSE FLUZONE HIGH DOSE 2021-06-12 Completed [facility] OVER 65 OVER 65 10:56:00 - [facility] Prevnar 13 (PCV13) Prevnar 13 (PCV13) 2021-06-12 Completed [facility] 10:56:00 - [facility] FLUZONE HIGH DOSE FLUZONE HIGH DOSE 2021-06-12 Completed [facility] OVER 65 OVER 65 10:56:00 - [facility] Prevnar 13 (PCV13) Prevnar 13 (PCV13) 2021-06-12 Completed [facility] 10:56:00 [facility] Non-US Vaccine Non-US Vaccine 2020-11-11 Completed [facility] COVID-19 IV COVID-19 IV 00:00:00 Family (QAZCOVID-IN) (QAZCOVID-IN) Practice Non-US Vaccine Non-US Vaccine 2020-10-14 Completed [facility] COVID-19 IV COVID-19 IV 00:00:00 Family (QAZCOVID-IN) (QAZCOVID-IN) Practice influenza, influenza, 2019-03-13 Completed [place] injectable, injectable, 00:00:00 Urology quadrivalent quadrivalent influenza, influenza, 2019-03-13 Completed [place] [facility] injectable, injectable, 00:00:00 [facility] quadrivalent quadrivalent influenza, influenza, 2019-03-[facility] quadrivalent quadrivalent influenza, influenza, 2019-03-13 [facility] quadrivalent quadrivalent influenza, influenza, 2019-03-13 [facility] quadrivalent quadrivalent influenza, influenza, 2018-02-11 [facility] quadrivalent quadrivalent influenza, influenza, 2018-02-11 [facility], [facility]:00 [facility] quadrivalent quadrivalent influenza, influenza, 2018-02-11 [facility], [facility] quadrivalent quadrivalent influenza, influenza, 2018-02-11 [facility], [facility]:00 [facility] quadrivalent quadrivalent influenza, influenza, 2018-02-11 Completed [place] [facility] injectable, injectable, 00:00:00 Urology quadrivalent quadrivalent influenza, influenza, 2017-04-13 Completed [place] [facility] injectable, injectable, 00:00:00 [facility] quadrivalent quadrivalent influenza, influenza, 2017-04-13 [facility] quadrivalent quadrivalent influenza, influenza, 2017-04-13 [facility] Urology quadrivalent quadrivalent influenza, influenza, 2017-04-13 Completed [facility] injectable, injectable, 00:00:00 Urology quadrivalent quadrivalent influenza, influenza, 2017-04-13 [facility] Urology quadrivalent quadrivalent pneumococcal pneumococcal 2015-06-13 Completed [place] [facility] polysaccharide PPV23 polysaccharide PPV23 00:00:00 Urology pneumococcal pneumococcal 2015-06-13 Completed [place] [facility] polysaccharide PPV23 polysaccharide PPV23 00:00:00 Urology pneumococcal pneumococcal 2015-06-13 Completed [place] [facility] polysaccharide PPV23 polysaccharide PPV23 00:00:00 Urology pneumococcal pneumococcal 2015-06-13 Completed [place] [facility] polysaccharide PPV23 polysaccharide PPV23 00:00:00 Urology pneumococcal pneumococcal 2015-06-13 Completed [place] [facility] polysaccharide PPV23 polysaccharide PPV23 00:00:00 Urology FLUZONE HIGH DOSE FLUZONE HIGH DOSE Unknown Completed [facility] OVER 65 OVER 65 [facility] FLUZONE HIGH DOSE FLUZONE HIGH DOSE Unknown Completed [facility] OVER 65 OVER 65 [facility] Prevnar 13 (PCV13) Prevnar 13 (PCV13) Unknown Completed [facility] Vital Signs Vital Name Observation Time Observation Value Comments Source HEIGHT 2021-01-20 08:47:00 182.9 cm WEIGHT 2021-01-20 08:47:00 118.026 kg HEIGHT 2021-01-19 09:03:00 182.9 cm WEIGHT 2021-01-19 09:03:00 119.296 kg BMI (Body Mass 2023-02-17 00:00:00 30.7 [facility] BP Diastolic 2023-02-17 00:00:00 68 mm[Hg] [facility] Urology Body Weight 2023-02-17 00:00:00 226 [lb_av] [facility] Urology BP Systolic 2023-02-17 00:00:00 142 mm[Hg] [facility] Urology Height 2023-02-17 00:00:00 72 [in_i] [facility] Urolog Heart rate 2023-02-13 16:45:00 60 /min [facility] Respiratory rate 2023-02-13 16:45:00 20 /min [facility] Oxygen saturation in 2023-02-13 16:45:00 100 /min [facility] Pulse oximetry Branch Systolic blood 2023-02-13 16:30:00 143 mm[Hg] [facility]iver [facility]ity of pressure [facility] Diastolic blood 2023-02-13 16:30:00 67 mm[Hg] Unive rsity of pressure [facility] Body temperature 2023-02-13 13:14:00 36.5 Ronda [facility] Body height 2023-02-13 13:14:00 182.9 cm [facility] Body weight 2023-02-13 13:14:00 92.08 kg [facility] BMI 2023-02-13 13:14:00 27.53 kg/m2 [facility] Systolic blood 2022-08-26 15:22:00 146 mm[Hg] [facility]iver [facility]ity of pressure [facility] Diastolic blood 2022-08-26 15:22:00 70 mm[Hg] [facility] Heart rate 2022-08-26 15:21:00 74 /min [facility] Body temperature 2022-08-26 15:21:00 37.06 Ronda [facility] ersity of [facility] Respiratory rate 2022-08-26 15:21:00 17 /min [facility] Body height 2022-08-26 15:21:00 182.9 cm [facility] Body weight 2022-08-26 15:21:00 100.154 kg [facility] BMI 2022-08-26 15:21:00 29.95 kg/m2 [facility] Oxygen saturation in 2022-08-26 15:21:00 99 /min [facility] Pulse oximetry Branch height 2022-07-20 08:40:00 70 [in_i] [facility] weight 2022-07-20 08:40:00 227.5 [lb_av] Common [facility] temperature 2022-07-20 08:40:00 97.1 [degF] [facility] bmi 2022-07-20 08:40:00 32.64 kg/m2 Common [facility] oximetry 2022-07-20 08:40:00 98 % Common [facility] respiratory rate 2022-07-20 08:40:00 18 /min [facility] blood pressure 2022-07-20 08:40:00 134 mm[Hg] Common [facility] - systolic [facility] blood pressure 2022-07-20 08:40:00 67 mm[Hg] Common [facility] - diastolic [facility] height 2022-07-20 09:00:00 70 [in_i] Common [facility] weight 2022-07-20 09:00:00 227.5 [lb_av] [facility] temperature 2022-07-20 09:00:00 97.1 [degF] Common [facility] bmi 2022-07-20 09:00:00 32.64 kg/m2 [facility] oximetry 2022-07-20 09:00:00 98 % [facility] respiratory rate 2022-07-20 09:00:00 18 /min [facility] blood pressure 2022-07-20 09:00:00 134 mm[Hg] [facility] - systolic [facility] blood pressure 2022-07-20 09:00:00 67 mm[Hg] Common [facility] - diastolic [facility] BP Diastolic 2022-07-15 00:00:00 66 mm[Hg] [facility] Urology Height 2022-07-15 00:00:00 72 [in_i] [facility] Urolog BMI (Body Mass 2022-07-15 00:00:00 30.7 kg/m2 [facility]) Urology BP Systolic 2022-07-15 00:00:00 124 mm[Hg] [facility] Urolog Body Weight 2022-07-15 00:00:00 226 [lb_av] [facility] Urology height 2022-04-12 10:40:00 70 [in_i] Common [facility] weight 2022-04-12 10:40:00 226.0 [lb_av] Common [facility] temperature 2022-04-12 10:40:00 97.4 [degF] [facility] bmi 2022-04-12 10:40:00 32.42 kg/m2 [facility] oximetry 2022-04-12 10:40:00 98 % Common [facility] respiratory rate 2022-04-12 10:40:00 17 /min [facility] blood pressure 2022-04-12 10:40:00 118 mm[Hg] Common [facility] - systolic [facility] blood pressure 2022-04-12 10:40:00 54 mm[Hg] Common [facility] - diastolic [facility] height 2022-03-31 11:30:00 70 [in_i] Common [facility] weight 2022-03-31 11:30:00 223 [lb_av] [facility] temperature 2022-03-31 11:30:00 98 [degF] [facility] bmi 2022-03-31 11:30:00 31.99 kg/m2 [facility] blood pressure 2022-03-31 11:30:00 138 mm[Hg] Common [facility] - systolic [facility] blood pressure 2022-03-31 11:30:00 74 mm[Hg] Common [facility] - diastolic [facility] Systolic blood 2022-03-26 05:01:23 166 mm[Hg] Univer [facility]ity of pressure [facility] Diastolic blood 2022-03-26 05:01:23 92 mm[Hg] Unive rsity of pressure [facility] Heart rate 2022-03-26 05:01:23 54 /min [facility] Respiratory rate 2022-03-26 05:01:23 16 /min [facility] in 2022-03-26 05:01:23 97 /min [facility] Pulse [facility]xim[facility] Body temperature 2022-03-26 03:33:00 36.83 Ronda [facility] Body height 2022-03-26 03:33:00 188 cm [facility] Body weight 2022-03-26 03:33:00 102.967 kg [facility] BMI 2022-03-26 03:33:00 29.15 kg/m2 Universi [facility] [place] [facility] Systolic blood 2022-02-27 18:52:00 122 mm[Hg] [facility] [place] [facility] Diastolic blood 2022-02-27 18:52:00 79 mm[Hg] [facility] [place] [facility] Heart rate 2022-02-27 18:52:00 74 /min [facility] [place] [facility] Body temperature 2022-02-27 18:52:00 36.44 Ronda [facility] [place] [facility] Respiratory rate 2022-02-27 18:52:00 18 /min [facility] [place] [facility] Body height 2022-02-27 18:52:00 182.9 cm [facility] [place] [facility] Body weight 2022-02-27 18:52:00 107.049 kg [facility] [place] [facility] BMI 2022-02-27 18:52:00 32.01 kg/m2 [facility] [place] [facility] Oxygen saturation in 2022-02-27 18:52:00 96 /min University of Arterial blood by [facility] Pulse oximetry Branch Systolic blood 2022-02-24 03:00:00 150 mm[Hg] [facility] [place] [facility] Diastolic blood 2022-02-24 03:00:00 66 mm[Hg] [facility] [place] [facility] Heart rate 2022-02-24 03:00:00 56 /min [facility] Respiratory rate 2022-02-24 03:00:00 16 /min [facility] [place] [facility] Oxygen saturation in 2022-02-24 03:00:00 95 /min [facility] of Arterial blood by [facility] leta Pulse oximetry Branch Body temperature 2022-02-24 01:20:00 36.61 Ronda [facility] [place] [facility] Body height 2022-02-24 01:20:00 182.9 cm [facility] Body weight 2022-02-24 01:20:00 107.276 kg [facility] [place] [facility] [place] BMI 2022-02-24 01:20:00 32.08 kg/m2 [facility] Systolic blood 2022-02-24 00:48:00 173 mm[Hg] [facility] Diastolic blood 2022-02-24 00:48:00 64 mm[Hg] [facility]ive [facility] Heart rate 2022-02-24 00:48:00 64 /min [facility]i ty [facility] Respiratory rate 2022-02-24 00:48:00 18 /min Univ ers[facility] Body height 2022-02-24 00:48:00 182.9 cm [facility] Body weight 2022-02-24 00:48:00 107.366 kg [facility] BMI 2022-02-24 00:48:00 32.10 kg/m2 [facility] Oxygen saturation in 2022-02-24 00:48:00 96 /min [facility] Arterial blood by [facility] Pulse oximetry Branch Height 2022-02-18 00:00:00 72 [in_i] [facility] BMI (Body Mass 2022-02-18 00:00:00 33.9 kg/m2 [place] [facility]) Urology Body Weight 2022-02-18 00:00:00 250 [lb_av] [facility] Systolic blood 2022-02-08 22:28:00 166 mm[Hg] [facility] Diastolic blood 2022-02-08 22:28:00 65 mm[Hg] [facility]ive [facility]ity [facility] Heart rate 2022-02-08 22:27:00 67 /min [facility] Body temperature 2022-02-08 22:27:00 36.72 Ronda [facility] Respiratory rate 2022-02-08 22:27:00 19 /min Univ [facility] Body height 2022-02-08 22:27:00 182.9 cm [facility] Body weight 2022-02-08 22:27:00 107.049 kg [facility] BMI 2022-02-08 22:27:00 32.01 kg/m2 [facility] Height 2022-02-04 00:00:00 72 [in_i] [facility] BMI (Body Mass 2022-02-04 00:00:00 33.9 kg/m2 [place] [facility]) Urology Body Weight 2022-02-04 00:00:00 250 [lb_av] [facility] height 2021-12-23 10:10:00 70 [in_i] [facility] weight 2021-12-23 10:10:00 225.4 [lb_av] [facility] temperature 2021-12-23 10:10:00 97.3 [degF] [facility] bmi 2021-12-23 10:10:00 32.34 kg/m2 [facility] oximetry 2021-12-23 10:10:00 96 % [facility] respiratory rate 2021-12-23 10:10:00 17 /min [facility] blood pressure 2021-12-23 10:10:00 137 mm[Hg] [facility] - systolic [facility] blood pressure 2021-12-23 10:10:00 70 mm[Hg] [facility] - diastolic [facility] BP Diastolic 2021-10-30 00:00:00 72 mm[Hg] [facility] Height 2021-10-30 00:00:00 73 [in_i] [facility] BMI (Body Mass 2021-10-30 00:00:00 31.8 kg/m2 [facility] BP Systolic 2021-10-30 00:00:00 147 mm[Hg] [facility] Body Weight 2021-10-30 00:00:00 241 [lb_av] [facility] height 2021-10-29 11:00:00 72 [in_i] [facility] weight 2021-10-29 11:00:00 240.3 [lb_av] [facility] temperature 2021-10-29 11:00:00 97.6 [degF] Common [facility] bmi 2021-10-29 11:00:00 32.59 kg/m2 Common [facility] oximetry 2021-10-29 11:00:00 95 % Common [facility] respiratory rate 2021-10-29 11:00:00 16 /min [facility] blood pressure 2021-10-29 11:00:00 138 mm[Hg] Common [facility] - systolic [facility] blood pressure 2021-10-29 11:00:00 75 mm[Hg] Common [facility] - diastolic [facility] Systolic blood 2021-09-20 21:38:00 130 mm[Hg] [facility] Diastolic blood 2021-09-20 21:38:00 73 mm[Hg] [facility] Heart rate 2021-09-20 21:38:00 88 /min [facility] Body temperature 2021-09-20 21:38:00 36.28 Ronda [facility] Respiratory rate 2021-09-20 21:38:00 18 /min [facility] Body height 2021-09-20 21:38:00 182.9 cm [facility] Body weight 2021-09-20 21:38:00 117.482 kg [facility] BMI 2021-09-20 21:38:00 35.13 kg/m2 [facility] Oxygen saturation in 2021-09-20 21:38:00 97 /min [facility] Arterial blood by [facility] Pulse oximetry Branch BP Diastolic 2021-08-05 00:00:00 72 mm[Hg] [facility] Height 2021-08-05 00:00:00 73 [in_i] [facility] Practice BMI (Body Mass 2021-08-05 00:00:00 35 kg/m2 [facility] BP Systolic 2021-08-05 00:00:00 125 mm[Hg] [facility] Body Weight 2021-08-05 00:00:00 265 [lb_av] [facility] BP Diastolic 2021-07-16 00:00:00 68 mm[Hg] [facility] Height 2021-07-16 00:00:00 72 [in_i] [facility] BMI (Body Mass 2021-07-16 00:00:00 33.9 kg/m2 [place] [facility]) Urology BP Systolic 2021-07-16 00:00:00 132 mm[Hg] [facility] Body Weight 2021-07-16 00:00:00 250 [lb_av] [facility] HEIGHT 2021-01-20 08:47:00 182.9 cm WEIGHT 2021-01-20 08:47:00 118.026 kg HEIGHT 2021-01-19 09:03:00 182.9 cm WEIGHT 2021-01-19 09:03:00 119.296 kg HEIGHT 2020-12-05 20:13:00 182.9 cm WEIGHT 2020-12-05 20:13:00 120.884 kg HEIGHT 2020-12-05 13:51:00 182.9 cm WEIGHT 2020-12-05 13:51:00 122.471 kg HEIGHT 2020-12-05 20:13:00 182.9 cm WEIGHT 2020-12-05 20:13:00 120.884 kg HEIGHT 2020-12-05 13:51:00 182.9 cm WEIGHT 2020-12-05 13:51:00 122.471 kg Systolic blood 2021-01-20 13:10:00 139 mm[Hg] [facility] Diastolic blood 2021-01-20 13:10:00 66 mm[Hg] [facility] Heart rate 2021-01-20 13:10:00 55 /min [facility] Body temperature 2021-01-20 13:10:00 36.39 Ronda [facility] Respiratory rate 2021-01-20 13:10:00 18 /min [facility] Oxygen saturation in 2021-01-20 13:10:00 94 /min [facility] Arterial blood by Medical Ce nter Pulse oximetry Body height 2021-01-20 08:47:00 182.9 cm [facility] Body weight 2021-01-20 08:47:00 118.026 kg [facility] BMI 2021-01-20 08:47:00 35.29 kg/m2 [facility] Procedures Procedure Date / Time Performing Clinician Source Performed MAGNESIUM 2023-02-13 13:28:00 Sierra Copeland [facility] TROPONIN I 2023-02-13 13:28:00 Sierra Copeland [facility] COMP. METABOLIC PANEL 2023-02-13 13:28:00 Sierra Copeland [facility] ([id number]) [facility] CBC WITH DIFF 2023-02-13 13:28:00 Sierra Copeland [facility] CONSENT/REFUSAL FOR 2023-02-13 13:05:22 Doctor Unassigned, No [facility] [place] [facility] Name [facility] POCT URINALYSIS 2022-08-26 00:00:00 Michael Barbour [facility] CARDIO- Pacemaker 2022-07-14 00:00:00 [facility] XR CHEST 1 VW 2022-03-26 04:43:[facility] METABOLIC PANEL 2022-03-26 03:49:00 oJvan Tinoco [facility] ([id number]) [facility] CBC WITH DIFF 2022-03-26 03:49:00 [place] [facility] RAPID INFLUENZA A/B 2022-03-26 03:49:00 Singer Jovan [facility] N-TERMINAL PRO-BNP 2022-03-26 03:49:00 [facility] CONSENT/REFUSAL FOR 2022-03-26 03:21:12 Doctor Unassigned, No [facility] [place] [facility] Name Medical Branch CONSENT/REFUSAL FOR 2022-02-27 18:52:05 Doctor Unassigned, No [facility] [place] [facility] CONSENT/REFUSAL FOR 2022-02-24 01:03:25 Doctor Unassigned, No [facility] [place] [facility] Name [facility] POCT URINALYSIS 2022-02-08 22:31:00 Michael Barbour [facility] ASSIGNMENT OF BENEFITS 2022-02-08 22:17:58 Doctor Unassigned, Serina [facility] Branch XR FOREARM 2 VW RIGHT 2021-09-20 22:18:00 Elliott [facility] [id number] 2021-04-14 00:00:00 NATST [facility] [id number] 2021-04-11 00:00:00 KREMI [facility] [id number] 2021-04-11 00:00:00 KREMI [facility] [id number] 2021-04-10 00:00:00 PEPGR [facility] [id number] 2021-04-06 00:00:00 BRIDGER.06 [facility] [id number] 2021-03-31 00:00:00 MCKRO [facility] [id number] 2021-03-31 00:00:00 MCKRO [facility] [id number] 2021-03-31 00:00:00 MCKRO [facility] [id number] 2021-03-31 00:00:00 MCKRO [facility] [id number] 2021-03-31 00:00:00 MCKRO [facility] [id number] 2021-03-31 00:00:00 MCKRO [facility] [id number] 2021-03-31 00:00:00 MCKRO [facility] [id number] 2021-03-31 00:00:00 MCKRO [facility] [id number] 2021-03-31 00:00:00 MCKRO [facility] [id number] 2021-03-28 00:00:00 DABSA [facility] [id number] 2021-03-28 00:00:00 DABSA [facility] [id number] 2021-03-28 00:00:00 DABSA [facility] RELEASE,LEONIDESE 2021-01-20 09:50:00 Fransisco Martinez [facility] TENOTOMY,TOE 2021-01-20 09:50:00 Fransisco Martinez [facility] TENOTOMY,TOE 2021-01-20 09:50:00 Fransisco Martinez [facility] CAPSULOTOMY,TOE 2021-01-20 09:50:00 Fransisco Martinez [facility] ARTHROPLASTY,TOE 2021-01-20 09:50:00 Fransisco Martinez [facility] POCT-GLUCOSE METER 2021-01-20 09:16:00 Fransisco Martinez [facility] SARS-COV2/RT-PCR ([facility] & 2021-01-16 11:18:00 Fransisco Martinez I [facility] REF LABS) Center HEMOGLOBIN 2021-01-16 11:18:00 Nahum Tinoco [facility] BASIC METABOLIC PANEL 2021-01-16 11:18:00 Nahum Tinoco [facility] (7) [place] ECG 12-LEAD 2021-01-16 11:10:13 Nahum Tinoco [facility] ECG 12-LEAD 2021-01-16 11:10:13 Unknown, Hl7 Doctor [facility] POCT-GLUCOSE METER 2020-12-09 07:24:00 Lanette [facility] BASIC METABOLIC PANEL 2020-12-09 03:34:00 Fransisco Martinez [facility] (7) [place] POCT-GLUCOSE METER 2020-12-08 21:11:00 [facility] [place] [facility] XR FOOT 2 VIEWS LEFT 2020-12-08 18:12:00 Fransisco Martinez [facility] POCT-GLUCOSE METER 2020-12-08 17:53:00 [facility] SURGICALLY OBTAINED 2020-12-08 17:16:47 Fransisco Martinez [facility] CULTURE + GRAM STAIN Center ANAEROBIC CULTURE 2020-12-08 17:16:47 Fransisco Martinez [facility] TISSUE EXAM 2020-12-08 17:13:00 Fransisco Martinez [facility] AMPUTATION,TOE 2020-12-08 16:32:00 Fransisco Martinez [facility] POCT-GLUCOSE METER 2020-12-08 13:37:00 [facility] ECG 12-LEAD 2020-12-08 12:57:36 Neymar Maximino [facility] ECG 12-LEAD 2020-12-08 12:57:36 Unknown, Hl7 Doctor [facility] ECG 12-LEAD 2020-12-08 12:56:01 Unknown, Hl7 Doctor [facility] POCT-GLUCOSE METER 2020-12-08 09:32:00 [facility] CBC W/PLT COUNT & AUTO 2020-12-08 05:48:00 Fransisco Martinez [facility] BASIC METABOLIC PANEL 2020-12-08 05:48:00 Fransisco Martinez Doretha [facility] (7) [place] CBC W/PLT COUNT & AUTO 2020-12-08 05:48:00 [facility] POCT-GLUCOSE METER 2020-12-07 21:16:00 [facility] POCT-GLUCOSE METER 2020-12-07 17:43:00 [facility] POCT-GLUCOSE METER 2020-12-07 12:45:00 [facility] POCT-GLUCOSE METER 2020-12-07 07:54:00 [facility] BASIC METABOLIC PANEL 2020-12-07 03:40:00 Fransisco Martinez [facility] (7) [place] POCT-GLUCOSE METER 2020-12-06 20:52:00 [facility] POCT-GLUCOSE METER 2020-12-06 17:23:00 [facility] VANCOMYCIN LEVEL, TROUGH 2020-12-06 15:18:00 Billy Curtis I [facility] POCT-GLUCOSE METER 2020-12-06 11:35:00 [facility] POCT-GLUCOSE METER 2020-12-06 07:51:00 [facility] BASIC METABOLIC PANEL 2020-12-06 05:24:00 [facility] (7) Liz Center MAGNESIUM 2020-12-06 05:24:00 [facility] CBC W/PLT COUNT & AUTO 2020-12-06 05:24:00 [facility] HEMOGLOBIN A1C 2020-12-06 05:24:00 [facility] CBC W/PLT COUNT & AUTO 2020-12-06 05:24:00 [facility] POCT-GLUCOSE METER 2020-12-05 20:16:00 [facility] LACTIC ACID, VENOUS 2020-12-05 17:08:00 Ricardo Hightower [facility] XR FOOT 3 VIEWS LEFT 2020-12-05 14:24:00 Ricardo Hightower [facility] CBC W/PLT COUNT & AUTO 2020-12-05 14:12:00 Ricardo Hightower [facility] LACTIC ACID, VENOUS 2020-12-05 14:12:00 Ricardo Hightower [facility] COMPREHENSIVE METABOLIC 2020-12-05 14:12:00 Ricardo Hightower [facility] PROTHROMBIN TIME/INR 2020-12-05 14:12:00 Ricardo Hightower [facility] APTT 2020-12-05 14:12:00 Ricardo Hightower [facility] CBC W/PLT COUNT & AUTO 2020-12-05 14:12:00 Ricardo Hightower [facility] WOUND CULTURE + GRAM 2020-12-05 14:12:00 Ricardo Hightower [facility] BLOOD CULTURE 2020-12-05 14:12:00 Ricardo Hightower [facility] BLOOD CULTURE 2020-12-05 14:11:00 CampbellRicardo [facility] Diagnostic Colonoscopy 2012-06-13 00:00:00 [place] [facility] 81.54 2010-12-23 00:00:00 MATVA.01 [facility] Plan of Care Planned Activity Planned Date Details Comments Source Diagnostic Test 2023-02-17 urinalysis, dipstick [place] Pending 00:00:00 [code = urinalysis, Urology dipstick] Diagnostic Test 2023-02-17 PSA, serum or plasma [place] Pending 00:00:00 [code = PSA, serum or Urolog y plasma] Future Scheduled 2023-02-[address] [facility] Test 00:00:00 (Season Ended) [code Medical Center = INFLUENZA VACCINE (Season Ended)] Future Scheduled 2023-02-[address] [facility] Test 00:00:00 (Season Ended) [code Medical Center = Influenza Vaccine (Season Ended)] Future Scheduled 2023-02-[address] [facility] Test 00:00:00 (#1) [code = Medical Center Influenza Vaccine (#1)] Future Scheduled 2023-02-[address] [facility] Test 00:00:00 (#1) [code = Medical Center Influenza Vaccine (#1)] Future Scheduled 2023-02-[address] [facility] Test 00:00:00 (#1) [code = Medical Center Influenza Vaccine (#1)] Future Scheduled 2023-02-[address] [facility] Test 00:00:00 (#1) [code = Medical Center Influenza Vaccine (#1)] Future Scheduled 2022-06-[address] [facility] Test 00:00:00 (12+) [code = Medical Center DEPRESSION SCREENING (12+)] Future Scheduled 2022-06-13 FALLS RISK SCREENING [facility] Test 00:00:00 [code = FALLS RISK Medical C enter SCREENING] Future Scheduled 2022-06-[address] [facility] Test 00:00:00 (12+) [code = Medical Center DEPRESSION SCREENING (12+)] Future Scheduled 2022-06-13 FALLS RISK SCREENING [facility] Test 00:00:00 [code = FALLS RISK Medical C enter SCREENING] Future Scheduled 2022-06-[address] [facility] Test 00:00:00 (12+) [code = Medical Center DEPRESSION SCREENING (12+)] Future Scheduled 2022-06-13 FALLS RISK SCREENING [facility] Test 00:00:00 [code = FALLS RISK Medical C enter SCREENING] Future Scheduled 2022-06-[address] [facility] Test 00:00:00 (12+) [code = Medical Center DEPRESSION SCREENING (12+)] Future Scheduled 2022-06-13 F[address]S RISK SCREENING [facility] Test 00:00:00 [code = FALLS RISK Medical C enter SCREENING] Future Scheduled 2022-06-[address] [facility] Test 00:00:00 (12+) [code = Medical Center DEPRESSION SCREENING (12+)] Future Scheduled 2022-06-13 F[address]S [address]ISK SCREENING [facility] Test 00:00:00 [code = FALLS RISK Medical C enter SCREENING] Future Scheduled 2022-06-[address] [facility] Test 00:00:00 (12+) [code = Medical Center DEPRESSION SCREENING (12+)] Future Scheduled 2022-06-13 FALLS RISK SCREENING [facility] Test 00:00:00 [code = FALLS RISK Medical C enter SCREENING] Future Scheduled 2022-06-[address] [facility] Test 00:00:00 (12+) [code = Medical Center DEPRESSION SCREENING (12+)] Future Scheduled 2022-06-13 FALLS RISK SCREENING [facility] Test 00:00:00 [code = FALLS RISK Medical C enter SCREENING] Future Scheduled 2022-06-[address] [facility] Test 00:00:00 (12+) [code = Medical Center DEPRESSION SCREENING (12+)] Future Scheduled 2022-06-13 F[address]S RISK SCREENING [facility] Test 00:00:00 [code = FALLS RISK Medical C enter SCREENING] Future Scheduled 2022-06-[address] [facility] Test 00:00:00 (12+) [code = Medical Center DEPRESSION SCREENING (12+)] Future Scheduled 2022-06-13 F[address]K SCREENING [facility] Test 00:00:00 [code = FALLS RISK Medical C enter SCREENING] Future Scheduled 2022-06-[address] [facility] Test 00:00:00 (12+) [code = Medical Center DEPRESSION SCREENING (12+)] Future Scheduled 2022-06-13 F[address] [address]ISK SCREENING [facility] Test 00:00:00 [code = FALLS RISK Medical C enter SCREENING] Future Scheduled 2022-06-[address] [facility] Test 00:00:00 (12+) [code = Medical Center DEPRESSION SCREENING (12+)] Future Scheduled 2022-06-13 F[address]K SCREENING [facility] Test 00:00:00 [code = FALLS RISK Medical C enter SCREENING] Future Scheduled 2022-02-[address] [facility] Test 00:00:00 (#1) [code = [facility] Center INFLUENZA VACCINE (#1)] Future Scheduled 2022-02-[address] [facility] Test 00:00:00 (#1) [code = [facility] Center INFLUENZA VACCINE (#1)] Future Scheduled 2022-02-[address] [facility] Test 00:00:00 (#1) [code = [facility] Center INFLUENZA VACCINE (#1)] Future Scheduled 2022-02-[address] [facility] Test 00:00:00 (#1) [code = [facility] Center INFLUENZA VACCINE (#1)] Future Scheduled 2022-02-[address] [facility] Test 00:00:00 (#1) [code = [facility] Center INFLUENZA VACCINE (#1)] Future Scheduled 2022-02-[address] [facility] Test 00:00:00 (#1) [code = [facility] Center INFLUENZA VACCINE (#1)] Future Scheduled 2022-02-[address] [facility] Test 00:00:00 (#1) [code = [facility] Center INFLUENZA VACCINE (#1)] Future Scheduled 2022-01-[address] [facility] Test 00:00:00 Counseling and Medical Cente r Screening (12+) [code = Tobacco Cessation Counseling and Screening (12+)] Future Scheduled 2022-01-[address] [facility] Test 00:00:00 [facility]ing [facility] Medical Cente r Screening (12+) [code = Tobacco Cessation Counseling and Screening (12+)] Future Scheduled 2022-01-[address] [facility] Test 00:00:00 Counseling and Medical Cente r Screening (12+) [code = Tobacco Cessation Counseling and Screening (12+)] Future Scheduled 2022-01-[address] [facility] Test 00:00:00 Counseling and Medical Cente r Screening (12+) [code = Tobacco Cessation Counseling and Screening (12+)] Future Scheduled 2022-01-[address] [facility] Test 00:00:00 Counseling and Medical Cente r Screening (12+) [code = Tobacco Cessation Counseling and Screening (12+)] Future Scheduled 2022-01-[address] [facility] Test 00:00:00 Counseling and Medical Cente r Screening (12+) [code = Tobacco Cessation Counseling and Screening (12+)] Future Scheduled 2022-01-[address] [facility] Test 00:00:00 Counseling and Medical Cente r Screening (12+) [code = Tobacco Cessation Counseling and Screening (12+)] Future Scheduled 2022-01-[address] [facility] Test 00:00:00 Counseling and Medical Cente r Screening (12+) [code = Tobacco Cessation Counseling and Screening (12+)] Future Scheduled 2022-01-[address] [facility] Test 00:00:00 Counseling and Medical Cente r Screening (12+) [code = Tobacco Cessation Counseling and Screening (12+)] Future Scheduled 2022-01-[address] [facility] Test 00:00:00 Counseling and Medical Cente r Screening (12+) [code = Tobacco Cessation Counseling and Screening (12+)] Future Scheduled 2022-01-[address] [facility] Test 00:00:00 Counseling and Medical Cente r Screening (12+) [code = Tobacco Cessation Counseling and Screening (12+)] Future Scheduled 2022-01-[address] [facility] Test 00:00:00 Counseling and Medical Cente r Screening (12+) [code = Tobacco Cessation Counseling and Screening (12+)] Future Scheduled 2021-12-16 [facility]58 (#1) [code = COVID-19 [facility] Vaccination (#1)] Center Future Scheduled 2021-12-16 COVID-19 Vaccination [facility] [place] Test 04:47:58 (#1) [code = DONYA PEARSON And erson Cancer Vaccination (#1)] Center Future Scheduled 2021-12-16 COVID-19 Vaccination [facility] [place] Test 04:47:58 (#1) [code = DONYA PEARSON And ersalmita Cancer Vaccination (#1)] Center Diagnostic Test 2021-10-30 glucose, fingerstick, [facility] Pending 00:00:00 blood [code = Practice glucose, fingerstick, blood] Diagnostic Test 2021-10-30 hemoglobin A1C, [place] [facility] Pending 00:00:00 fingerstick [code = Practice hemoglobin A1C, fingerstick] Future Scheduled 2021-06-[address] [facility] 00:00:00 (12+) [code = Medical Center DEPRESSION SCREENING (12+)] Future Scheduled 2021-06-13 F[address] SCREENING [facility] 00:00:00 [code = FALLS RISK Medical C enter SCREENING] Future Scheduled 2021-06-[address] [facility] 00:00:00 (12+) [code = Medical Center DEPRESSION SCREENING (12+)] Future Scheduled 2021-06-13 F[place]S RISK SCREENING [facility] 00:00:00 [code = FALLS RISK Medical C enter SCREENING] Future Scheduled 2021-06-[address] [facility]00 measurement Medical Center (procedure) [code = 72606925] Future Scheduled 2021-06-[address] [facility] 00[facility]00 measurement [facility] Center (procedure) [code = 25333762] Future Scheduled 2021-06-[address] [facility] 00[facility]00 measurement [facility] (procedure) [code = 07256217] Future Scheduled 2021-06-[address] [facility]00 measurement [facility] (procedure) [code = 22288598] Future Scheduled 2021-06-[address] [facility] 00:[facility]:00 measurement [facility] (procedure) [code = 97950148] Future Scheduled 2021-06-[address] [facility] 00[facility]00 measurement [facility] (procedure) [code = 27113526] Future Scheduled 2021-06-[address] [facility] 00:[facility]:00 measurement [facility] (procedure) [code = 20819737] Future Scheduled 2021-06-[address] [facility] 00:[facility]:00 measurement [facility] (procedure) [code = 09035927] Future Scheduled 2021-06-[address] [facility] 00:[facility]:00 measurement [facility] (procedure) [code = 54987210] Future Scheduled 2021-06-[address] [facility] 00:[facility]:00 measurement [facility] (procedure) [code = 27651380] Future Scheduled 2021-06-[address] [facility] 00:[facility]:00 measurement [facility] (procedure) [code = 78093375] Future Scheduled 2021-06-[address] [facility] 00:[facility]:00 measurement [facility] (procedure) [code = 44313166] Future Scheduled 2021-06-[address] [facility] 00[facility]:00 measurement [facility] (procedure) [code = 95229599] Future Scheduled 2021-06-[address] [facility] 00[facility]:00 measurement [facility] (procedure) [code = 52469545] Future Scheduled 2021-02-[address] [facility] 00:00:00 (#1) [code = Medical Center INFLUENZA VACCINE (#1)] Future Scheduled 2016-06-13 PNEUMOCOCCAL 65+ YRS [facility] 00:00:00 (2 - PCV) [code = Medical Ce nter PNEUMOCOCCAL 65+ YRS (2 - PCV)] Future Scheduled 2016-06-13 PNEUMOCOCCAL 65+ YRS [facility] 00:00:00 (2 - PCV) [code = Medical Ce nter PNEUMOCOCCAL 65+ YRS (2 - PCV)] Future Scheduled 2016-06-13 PNEUMOCOCCAL 65+ YRS [facility] 00:00:00 (2 - PCV) [code = Medical Ce nter PNEUMOCOCCAL 65+ YRS (2 - PCV)] Future Scheduled 2016-06-13 PNEUMOCOCCAL 65+ YRS [facility] 00:00:00 (2 - PCV) [code = Medical Ce nter PNEUMOCOCCAL 65+ YRS (2 - PCV)] Future Scheduled 2004-12-[address] [facility] 00:00:00 WELLNESS (YEAR 2 or Medical Center FIRST YEAR if no IPPE) [code = MEDICARE ANNUAL WELLNESS (YEAR 2 or FIRST YEAR if no IPPE)] Future Scheduled 2004-12-[address] [facility] 00:00:00 WELLNESS (YEAR 2 or Medical Center FIRST YEAR if no IPPE) [code = MEDICARE ANNUAL WELLNESS (YEAR 2 or FIRST YEAR if no IPPE)] Future Scheduled 2004-12-[address] [facility] 00:00:00 WELLNESS (YEAR 2 or Medical Center FIRST YEAR if no IPPE) [code = MEDICARE ANNUAL WELLNESS (YEAR 2 or FIRST YEAR if no IPPE)] Future Scheduled 2004-12-[address] [facility] 00:00:00 WELLNESS (YEAR 2 or Medical Center FIRST YEAR if no IPPE) [code = MEDICARE ANNUAL WELLNESS (YEAR 2 or FIRST YEAR if no IPPE)] Future Scheduled 2004-12-[address] [facility] 00:00:00 WELLNESS (YEAR 2 or Medical Center FIRST YEAR if no IPPE) [code = MEDICARE ANNUAL WELLNESS (YEAR 2 or FIRST YEAR if no IPPE)] Future Scheduled 2004-12-[address] [facility] 00:00:00 WELLNESS (YEAR 2 or Medical Center FIRST YEAR if no IPPE) [code = MEDICARE ANNUAL WELLNESS (YEAR 2 or FIRST YEAR if no IPPE)] Future Scheduled 2004-12-[address] [facility] 00:00:00 WELLNESS (YEAR 2 or Medical Center FIRST YEAR if no IPPE) [code = MEDICARE ANNUAL WELLNESS (YEAR 2 or FIRST YEAR if no IPPE)] Future Scheduled 2004-12-[address] [facility] 00:00:00 WELLNESS (YEAR 2 or Medical Center FIRST YEAR if no IPPE) [code = MEDICARE ANNUAL WELLNESS (YEAR 2 or FIRST YEAR if no IPPE)] Future Scheduled 2004-12-[address] [facility] 00:00:00 WELLNESS (YEAR 2 or Medical Center FIRST YEAR if no IPPE) [code = MEDICARE ANNUAL WELLNESS (YEAR 2 or FIRST YEAR if no IPPE)] Future Scheduled 2004-12-[address] [facility] 00:00:00 WELLNESS (YEAR 2 or Medical Center FIRST YEAR if no IPPE) [code = MEDICARE ANNUAL WELLNESS (YEAR 2 or FIRST YEAR if no IPPE)] Future Scheduled 2004-12-[address] [facility] 00:00:00 WELLNESS (YEAR 2 or Medical Center FIRST YEAR if no IPPE) [code = MEDICARE ANNUAL WELLNESS (YEAR 2 or FIRST YEAR if no IPPE)] Future Scheduled 2004-12-[address] [facility] 00:00:00 WELLNESS (YEAR 2 or Medical Center FIRST YEAR if no IPPE) [code = MEDICARE ANNUAL WELLNESS (YEAR 2 or FIRST YEAR if no IPPE)] Future Scheduled 2004-12-[address] [facility] 00:00:00 WELLNESS (YEAR 2 or Medical Center FIRST YEAR if no IPPE) [code = MEDICARE ANNUAL WELLNESS (YEAR 2 or FIRST YEAR if no IPPE)] Future Scheduled 2004-12-[address] [facility] 00:00:00 WELLNESS (YEAR 2 or Medical Center FIRST YEAR if no IPPE) [code = MEDICARE ANNUAL WELLNESS (YEAR 2 or FIRST YEAR if no IPPE)] Future Scheduled 1989 SHINGLES VACCINES ([address] [facility] 00:00:00 of 2) [code = Medical Center SHINGLES VACCINES (1 of 2)] Future Scheduled 1989 SHINGLES VACCINES ([address] [facility] 00:00:00 of 2) [code = Medical Center SHINGLES VACCINES (1 of 2)] Future Scheduled 1989 SHINGLES VACCINES ([address] [facility] 00:00:00 of 2) [code = Medical Center SHINGLES VACCINES (1 of 2)] Future Scheduled 1989 SHINGLES VACCINES ([address] [facility] 00:00:00 of 2) [code = Medical Center SHINGLES VACCINES (1 of 2)] Future Scheduled 1989 SHINGLES VACCINES ([address] [facility] 00:00:00 of 2) [code = Medical Center SHINGLES VACCINES (1 of 2)] Future Scheduled 1989 SHINGLES VACCINES ([address] [facility] 00:00:00 of 2) [code = Medical Center SHINGLES VACCINES (1 of 2)] Future Scheduled 1989 SHINGLES VACCINES ([address] [facility] 00:00:00 of 2) [code = Medical Center SHINGLES VACCINES (1 of 2)] Future Scheduled 1989 SHINGLES VACCINES ([address] [facility] 00:00:00 of 2) [code = Medical Center SHINGLES VACCINES (1 of 2)] Future Scheduled 1989 SHINGLES VACCINES ([address] [facility] 00:00:00 of 2) [code = Medical Center SHINGLES VACCINES (1 of 2)] Future Scheduled 1989 SHINGLES VACCINES ([address] [facility] 00:00:00 of 2) [code = Medical Center SHINGLES VACCINES (1 of 2)] Future Scheduled 1989 SHINGLES VACCINES ([address] [facility] 00:00:00 of 2) [code = Medical Center SHINGLES VACCINES (1 of 2)] Future Scheduled 1989 SHINGLES VACCINES ([address] [facility] 00:00:00 of 2) [code = Medical Center SHINGLES VACCINES (1 of 2)] Future Scheduled 1989 SHINGLES VACCINES ([address] [facility] 00:00:00 of 2) [code = Medical Center SHINGLES VACCINES (1 of 2)] Future Scheduled 1989 SHINGLES VACCINES ([address] [facility] 00:00:00 of 2) [code = Medical Center SHINGLES VACCINES (1 of 2)] Future Scheduled 1958 DTAP/TDAP/TD [facility]INES [facility] 00:00:00 (1 - Tdap) [code = Medical C enter DTAP/TDAP/TD VACCINES (1 - Tdap)] Future Scheduled 1958 DTAP/TDAP/TD [facility]ACCINES [facility] 00:00:00 (1 - Tdap) [code = Medical C enter DTAP/TDAP/TD VACCINES (1 - Tdap)] Future Scheduled 1958 DTAP/TDAP/TD [facility]ACCINES [facility] 00:00:00 (1 - Tdap) [code = Medical C enter DTAP/TDAP/TD VACCINES (1 - Tdap)] Future Scheduled 1958 DTAP/TDAP/TD [facility]ACCINES [facility] 00:00:00 (1 - Tdap) [code = Medical C enter DTAP/TDAP/TD VACCINES (1 - Tdap)] Future Scheduled 1958 DTAP/TDAP/TD [facility]ACCINES [facility] 00:00:00 (1 - Tdap) [code = Medical C enter DTAP/TDAP/TD VACCINES (1 - Tdap)] Future Scheduled 1958 DTAP/TDAP/TD [facility]ACCINES [facility] 00:00:00 (1 - Tdap) [code = Medical C enter DTAP/TDAP/TD VACCINES (1 - Tdap)] Future Scheduled 1958 DTAP/TDAP/TD [facility]ACCINES [facility] 00:00:00 (1 - Tdap) [code = Medical C enter DTAP/TDAP/TD VACCINES (1 - Tdap)] Future Scheduled 1958 DTAP/TDAP/TD [facility]ACCINES [facility] 00:00:00 (1 - Tdap) [code = Medical C enter DTAP/TDAP/TD VACCINES (1 - Tdap)] Future Scheduled 1958 DTAP/TDAP/TD [facility]ACCINES [facility] 00:00:00 (1 - Tdap) [code = Medical C enter DTAP/TDAP/TD VACCINES (1 - Tdap)] Future Scheduled 1958 DTAP/TDAP/TD [facility]ACCINES [facility] 00:00:00 (1 - Tdap) [code = Medical C enter DTAP/TDAP/TD VACCINES (1 - Tdap)] Future Scheduled 1958 DTAP/TDAP/TD [facility]ACCINES [facility] 00:00:00 (1 - Tdap) [code = Medical C enter DTAP/TDAP/TD VACCINES (1 - Tdap)] Future Scheduled 1958 DTAP/TDAP/TD [facility]ACCINES [facility] 00:00:00 (1 - Tdap) [code = Medical C enter DTAP/TDAP/TD VACCINES (1 - Tdap)] Future Scheduled 1958 DTAP/TDAP/TD [facility]ACCINES [facility] 00:00:00 (1 - Tdap) [code = Medical C enter DTAP/TDAP/TD VACCINES (1 - Tdap)] Future Scheduled 1958 DTAP/TDAP/TD [facility]ACCINES [facility] 00:00:00 (1 - Tdap) [code = Medical C enter DTAP/TDAP/TD VACCINES (1 - Tdap)] Future Scheduled 1951 COVID-19 VACCINE (1) [facility] 00:00:00 [code = COVID-[address] VACCINE (1)] Future Scheduled [address] EYE EXAM [facility] 00:00:00 [code = DIABETIC EYE Medical Center EXAM] Future Scheduled [address] [facility] 00[facility]00 examination Medical Center (regime/therapy) [code = 845771083] Future Scheduled 1949 Urine screening for [facility] 00:00:00 protein (procedure) Medical Center [code = 954277140] Future Scheduled [address] EYE EXAM [facility] 00:00:00 [code = DIABETIC EYE Medical Center EXAM] Future Scheduled [address] [facility] 00:00:00 examination Medical Center (regime/therapy) [code = 716619938] Future Scheduled 1949 Urine screening for [facility] 00:00:00 protein (procedure) Medical Center [code = 771034950] Future Scheduled [address] EYE EXAM [facility] 00:00:00 [code = DIABETIC EYE Medical Center EXAM] Future Scheduled [address] [facility] 00:00:00 examination Medical Center (regime/therapy) [code = 309983916] Future Scheduled 1949 Urine screening for [facility] 00:00:00 protein (procedure) Medical Center [code = 333265256] Future Scheduled [address] EYE EXAM [facility] 00:00:00 [code = DIABETIC EYE Medical Center EXAM] Future Scheduled [address] [facility] 00:00:00 examination Medical Center (regime/therapy) [code = 364007552] Future Scheduled 1949 Urine screening for [facility] 00:00:00 protein (procedure) Medical Center [code = 014246931] Future Scheduled [address] EYE EXAM [facility] 00:00:00 [code = DIABETIC EYE Medical Center EXAM] Future Scheduled [address] [facility] 00:00:00 examination Medical Center (regime/therapy) [code = 324549038] Future Scheduled 1949 Urine screening for [facility] 00:00:00 protein (procedure) Medical Center [code = 525053133] Future Scheduled [address] EYE EXAM [facility] 00:00:00 [code = DIABETIC EYE Medical Center EXAM] Future Scheduled [address] [facility] 00:00:00 examination Medical Center (regime/therapy) [code = 866465620] Future Scheduled 1949 Urine screening for [facility] 00:00:00 protein (procedure) Medical Center [code = 527534435] Future Scheduled [address] EYE EXAM [facility] 00:00:00 [code = DIABETIC EYE Medical Center EXAM] Future Scheduled [address] [facility] 00:00:00 examination Medical Center (regime/therapy) [code = 567960712] Future Scheduled 1949 Urine screening for [facility] 00:00:00 protein (procedure) Medical Center [code = 134596401] Future Scheduled [address] EYE EXAM [facility] 00:00:00 [code = DIABETIC EYE Medical Center EXAM] Future Scheduled [address] [facility] 00:00:00 examination Medical Center (regime/therapy) [code = 920234259] Future Scheduled 1949 Urine screening for [facility] 00:00:00 protein (procedure) Medical Center [code = 683142436] Future Scheduled [address] EYE EXAM [facility] 00:00:00 [code = DIABETIC EYE Medical Center EXAM] Future Scheduled [address] [facility] 00:00:00 examination Medical Center (regime/therapy) [code = 807358281] Future Scheduled 1949 Urine screening for [facility] 00:00:00 protein (procedure) Medical Center [code = 500578109] Future Scheduled [address] EYE EXAM [facility] 00:00:00 [code = DIABETIC EYE Medical Center EXAM] Future Scheduled [address] [facility] 00:00:00 examination Medical Center (regime/therapy) [code = 520121892] Future Scheduled 1949 Urine screening for [facility] 00:00:00 protein (procedure) Medical Center [code = 786946550] Future Scheduled [address] EYE EXAM [facility] 00:00:00 [code = DIABETIC EYE Medical Center EXAM] Future Scheduled [address] [facility] 00:00:00 examination Medical Center (regime/therapy) [code = 880116105] Future Scheduled 1949 Urine screening for [facility] 00:00:00 protein (procedure) Medical Center [code = 630620372] Future Scheduled [address] EYE EXAM [facility] 00:00:00 [code = DIABETIC EYE Medical Center EXAM] Future Scheduled [address] [facility] 00:00:00 examination Medical Center (regime/therapy) [code = 017751296] Future Scheduled 1949 Urine screening for [facility] 00:00:00 protein (procedure) Medical Center [code = 613894001] Future Scheduled [address] EYE EXAM [facility] 00:00:00 [code = DIABETIC EYE Medical Center EXAM] Future Scheduled [address] [facility] 00:00:00 examination Medical Center (regime/therapy) [code = 411411320] Future Scheduled 1949 Urine screening for [facility] 00:00:00 protein (procedure) Medical Center [code = 575745200] Future Scheduled [address] DIABETIC EYE EXAM [facility] 00:00:00 [code = DIABETIC EYE Medical Center EXAM] Future Scheduled [address] [facility] 00:00:00 examination Medical Center (regime/therapy) [code = 788440657] Future Scheduled 1949 Urine screening for [facility] 00:00:00 protein (procedure) Medical Center [code = 585402313] Future Scheduled 1939 COVID-19 VACCINE (#1[facility]:00 [code = COVID-[address] VACCINE (#1)] Future Scheduled 1939 COVID-19 VACCINE (#1[facility]:00:00 [code = COVID-[address] VACCINE (#1)] Future Scheduled 1939 COVID-19 VACCINE (#1[facility] 00:00:00 [code = COVID-[address] VACCINE (#1)] Future Scheduled 1939 COVID-19 VACCINE (#1) [facility] 00:00:00 [code = COVID-[address] VACCINE (#1)] Future Scheduled 1939 COVID-19 VACCINE (#1[facility] 00:00:00 [code = COVID-[address] VACCINE (#1)] Future Scheduled 1939 COVID-19 VACCINE (#1) [facility] 00:00:00 [code = COVID-[address] VACCINE (#1)] Future Scheduled 1939 COVID-19 VACCINE (#1) [facility] 00:00:00 [code = COVID-[address] VACCINE (#1)] Future Scheduled 1939 COVID-19 VACCINE (#1) [facility] 00:00:00 [code = COVID-[address] VACCINE (#1)] Future Scheduled 1939 COVID-19 VACCINE (#1) [facility] 00:00:00 [code = COVID-[address] VACCINE (#1)] Future Scheduled 1939 COVID-19 VACCINE (#1) [facility] 00:00:00 [code = COVID-[address] VACCINE (#1)] Future Scheduled 1939 COVID-19 VACCINE (#1) [facility] 00:00:00 [code = COVID-[address] VACCINE (#1)] Future Scheduled 1939 COVID-19 VACCINE (#1) [facility] 00:00:00 [code = COVID-[address] VACCINE (#1)] Future Scheduled 1939 COVID-19 VACCINE (#1[facility] 00:00:00 [code = COVID-[address] VACCINE (#1)] Encounters Start End Encounter Admission Attending Care Care Encounter Source Date/Time Date/Time Type Type Clinicians Facility Department ID 2023-02-28 Outpatient Cope, STLMLC STLMLC [id number] Common 09:18:00 Silverio [id number] [facility] 2022-11-01 Outpatient Cope, STLMLC STLMLC [id number] Common 15:04:01 Silverio 63971 [facility] 2022-07-16 Outpatient Cope, STLMLC STLMLC [id number] Common 09:22:03 Silverio 54569 [facility] 2022-04-08 Outpatient Cope, STLMLC STLC [id number] Common 09:07:01 Silverio 60795 [facility] 2022-03-30 Outpatient Cope, STLMLC STLC [id number] Common 12:03:00 Silverio 37028 [facility] 2021-11-05 Outpatient Cope, STLMLC STLMLC [id number] Common 14:38:03 Silverio 19344 [facility] 2021-10-29 Outpatient Cope, STLMLC STLC [id number] Common 10:30:18 Silverio [facility] 2021-05-13 [facility] [id number] [facility] 14:03:00 , January 40 [facility] 2021-03-22 Outpatient ROSS, [facility] [id number] [facility] 05:54:07 [facility] 2021-03-22 Outpatient ROSS, [facility] Surgery [id number] SLE 05:00:01 [facility] 2021-03-20 Outpatient ROSS, [facility] Surgery [id number] [facility] 17:59:31 [facility] 2023-02-17 2023-02-17 Andreina Snowden [facility] [place] - [id number] [place] 00:00:00 00:00:00 Mary CLINICAL TECH: [facility] [address] [facility] U[facility] [address], [place] [address] , Ph. 2023-02-13 2023-02-13 Emergency X MIN [facility] ERT [id number] Univers 08:17:00 12:12:00 SIERRA barry of [facility] 2023-02-13 2023-02-13 Emergency [facility] [id number] Univers 08:17:00 12:12:00 Sierra STILL [id number] ity travis DWYER [id number] [facility] [phone] [address] 2022-10-12 2022-10-13 Inpatient MEGHA AbdulWU INTE.02 [id number] [facility] 10:19:00 15:42:00 Ruiz 39 [facility] 2022-10-09 2022-10-09 Outpatient FOUZIA Marquez [facility] [id number] [facility] 05:39:00 05:39:00 Salim 36 [facility] 2022-08-26 2022-08-26 Outpatient R JORDI [facility] [id number] [facility] 10:20:00 10:41:49 CARISSA barry o f [facility] 2022-08-26 2022-08-26 Urgent Carissa Bacon [facility] [id number] Univers 10:20:00 10:41:49 Care Unknown, Attending HEALTH [id number] itRachele [id number] David as GLADIS?BLEA [phone] Ak [address]ian[address] MEDICAL OFFICE BUILDING 2022-07-20 2022-07-20 OFFICE STLMLC [facility] [id number] Co mmon 00:00:00 00:00:00 VISIT Spirit ESTAB PT - CHI LEVEL 4 [facility] 2022-07-20 2022-07-20 SUB ANNUAL STLM STLMLC [id number] Common 00:00:00 00:00:00 MCR [facility] WELLNESS - CHI VISIT [facility] 2022-07-16 2022-07-16 (TEL) STLMLC STLMLC [id number] Co mmon 00:00:00 00:00:00 [facility] 2022-07-15 2022-07-15 Andreina Snowden [facility] [place] - [id number] [place] 00:00:00 00:00:00 LEON Hernandez: Hari ro [id number] [facility] Urology [facility] [address], [place] [address] , Ph. 2022-07-11 2022-07-11 Outpatient Baum_L HMU HMU [id number] [place] 00:00:00 00:00:00 [id number] [facility] 2022-07-11 2022-07-11 Outpatient Baum_L HMU HMU [id number] [place] 00:00:00 00:00:00 88500 [facility] 2022-07-11 2022-07-11 Outpatient Baum_L HMU HMU [id number] [place] 00:00:00 00:00:00 [id number] [facility] 2022-07-11 2022-07-11 Outpatient Baum_L HMU HMU [id number] [place] 00:00:00 00:00:00 13121 [facility] 2022-07-11 2022-07-11 Outpatient Baum_L HMU HMU [id number] [place] 00:00:00 00:00:00 09024 [facility] 2022-07-11 2022-07-11 Outpatient Baum_L HMU HMU [id number] [place] 00:00:00 00:00:00 31552 [facility] 2022-07-11 2022-07-11 Outpatient Baum_L HMU HMU [id number] [place] 00:00:00 00:00:00 [id number] [facility] 2022-07-05 2022-07-05 (TEL) STLMLC STLMLC [id number] Co mmon 00:00:00 00:00:00 [facility] 2022-04-15 2022-04-15 (TEL) STLMLC STLMLC [id number] Co mmon 00:00:00 00:00:00 [facility] 2022-04-12 2022-04-12 OFFICE STLMLC STLC [id number] Co mmon 00:00:00 00:00:00 VISIT Spirit ESTAB PT - CHI LEVEL 4 [facility] 2022-03-31 2022-03-31 OFFICE STLMLC STLMLC [id number] Co mmon 00:00:00 00:00:00 VISIT Spirit ESTAB PT - CHI LEVEL 4 [facility] 2022-03-30 2022-03-30 (TEL) STLMLC STLC [id number] Co mmon 00:00:00 00:00:00 [facility] 2022-03-25 2022-03-26 Emergency X SINGER [facility] ERT [id number] Univers 22:26:00 01:10:00 JOVAN barry [facility] 2022-03-25 2022-03-26 Luciano Tinoco [facility] [id number] Univers 22:26:00 01:10:00 Jovan STILL [id number] i Cee [id number] [facility] [phone] [place] [address] [place] 2022-03-18 2022-03-18 (TEL) [facility] [id number] Co mmon 00:00:00 00:00:00 [facility] 2022-03-03 2022-03-03 Outpatient Daniel_T VFP VFP [id number] [address] [place] [address] 00:00:00 00:00:00 [id number] Family Pract[facility] e 2022-03-03 2022-03-03 Outpatient Baum_L U [facility] [id number] [place] 00:00:00 00:00:00 14035 [facility] 2022-02-27 2022-02-27 Emergency X MIN [facility] ERT [id number] Univers 13:53:00 14:15:00 SIERRA barry [facility] 2022-02-27 2022-02-27 Luciano Copeland [facility] [id number] Univers 13:53:00 14:15:00 [id number] [id number] [facility] [phone] [address] 2022-02-24 2022-02-24 Outpatient Baum_L [facility] [id number] [place] 00:00:00 00:00:00 58469 [facility] 2022-02-23 2022-02-23 [facility] [id number] Univers 20:40:00 22:58:00 [facility] [id number] i ty [facility] [id number] [facility] [phone] [address] 2022-02-23 2022-02-23 Outpatient Austin [facility] [id number] Univers 19:30:00 19:53:40 [facility] 2022-02-23 2022-02-23 Nurse Nurse, Krzysztof [facility] [id number] Univers 19:30:00 19:53:40 [facility] [id number] ity [facility] [id number] [facility] GLADIS?BLEA [id number] [address] MEDICAL OFFICE BUILDING 2022-02-23 2022-02-23 Outpatient Austin BARBOUR [facility] ERT [id number] Univers 19:30:00 19:53:40 [facility] 2022-02-23 2022-02-23 [facility]patient [facility] [id number] Univers 19:40:00 19:40:00 [facility] 2022-02-18 2022-02-18 Outpatient Baum_L [facility] [id number] [place] 00:00:00 00:00:00 [facility] 2022-02-18 2022-02-18 Andreina Snowden [facility] [place] - [id number] [place] 00:00:00 00:00:00 Mary CLINICAL TECH: [facility] [address] [facility] [address], [place] [address] , Ph. 2022-02-18 2022-02-18 Outpatient Khodr, [facility] [id number] 00:00:00 00:00:00 Andreina Snowden [id number] 2022-02-11 2022-02-11 Outpatient Baum_L [facility] [place] [id number] [place] 00:00:00 00:00:00 [id number] [facility] 2022-02-08 2022-02-08 Tammy Barker [facility] [id number] [facility] 17:20:00 17:40:00 Care [facility] [id number] ity of [place] [id number] David as GLADIS?BLEA [phone] [address] MEDICAL OFFICE BUILDING 2022-02-08 2022-02-08 Outpatient Austin CHINCHILLA [facility] [id number] [facility] 17:20:00 17:20:00 TAMMY barry [facility] 2022-02-08 2022-02-08 Outpatient Baum_L [facility] [id number] [place] 00:00:00 00:00:00 [id number] [facility] 2022-02-08 2022-02-08 Orders Doctor NAHUM 1.2.840.114 [id number] Univers 00:00:00 00:00:00 Only Unassigned, JEISON 350.1.13.10 [facility] 4.2.7.2.686 David as [phone] [address] 2022-02-04 2022-02-04 Outpatient Baum_L U [facility] [id number] [place] 00:00:00 00:00:00 [id number] [facility] 2022-02-04 2022-02-04 Outpatient Mary U [facility] [id number] e-2 00:00:00 00:00:00 Andreina Snowden [id number] 2022-02-04 2022-02-04 Andreina Snowden [facility] [place] - [id number] [place] 00:00:00 00:00:00 Khodr, CLINICAL TECH: Hari Pollock [id number] [facility] Urology [facility] [address], [place] [address] , Ph. 2022-01-08 2022-01-08 (TEL) STLMLC STLMLC [id number] Co m[place] 00:00:00 00:00:00 [facility] 2022-01-01 2022-01-01 (TEL) STLMLC STLMLC [id number] [place] m[place] 00:00:00 00:00:00 [facility] 2021-12-23 2021-12-23 OFFICE STLMLC STLMLC [id number] [place] 00:00:00 00:00:00 VISIT [facility] PT - CHI LEVEL 4 [facility] 2021-11-23 2021-11-23 Outpatient Daniel_T VFP VFP [id number] [address] [place] [address] 02:09:00 02:09:00 [id number] Family Practic e 2021-11-20 2021-11-20 Outpatient Daniel_T VFP VFP [id number] [address] [place] [address] 09:00:00 09:00:00 [id number] Family Practic e 2021-10-30 2021-10-30 Outpatient Daniel_T VFP VFP [id number] [address] [place] [address] 01:57:00 01:57:00 [id number] Family Practic e 2021-10-30 2021-10-30 Waqar VFP [place] - [id number] V illage 00:00:00 00:00:00 [facility] DarriusLoren fragoso - Pracjose martin holder MD: [id number] KURT_JUAN J_Robin e [address], [address], [place] [address] , Ph. 2021-10-29 2021-10-29 Outpatient Daniel_T VFP VFP [id number] [address] [place] [address] 01:49:00 01:49:00 [id number] Family Practic e 2021-10-29 2021-10-29 OFFICE STLMLC STLMLC [id number] Co mmon 00:00:00 00:00:00 VISIT [facility] PT LEVEL 4 [facility] 2021-09-28 2021-09-28 Outpatient EL Pepper, HCAW[facility] SURG [id number] [facility] 08:52:00 08:52:00 Ruiz 22 [facility] 2021-09-20 2021-09-20 Outpatient R JASON [facility] [id number] Univers 17:06:34 23:59:[address] [facility] 2021-09-20 2021-09-20 Hospital [facility] 1.2.840.114 [id number] Univers 17:06:34 23:59:00 Encounter Elliott HEALTH [id number] ity [facility] 4.2.7.2.686 David as GLADIS?BLEA [id number] [facility] Pariseleazar THOMAS [address] MEDICAL OFFICE THOMAS [facility] 2021-09-20 2021-09-20 Outpatient R JASON [facility] [id number] Univers 18:00:00 18:00:00 ELLIOTT [facility] 2021-09-20 2021-09-20 Nurse Jason [facility] [id number] Univers 18:00:00 18:00:00 Visit Kojo, Tammy HEALTH 350.1.13.10 ity of [place] 4.2.7.2.686 David as GLADIS?BLEA [phone] [facility] [address] MEDICAL OFFICE THOMAS [facility] 2021-09-08 2021-09-08 [facility] 1.2.840.114 [id number] Univers 00:00:00 00:00:00 Elliott HEALTH [id number] it y of [place] 4.2.7.2.686 David as GLADIS?BLEA [id number] [facility] Pariseleazar [facility] [address] MEDICAL OFFICE BUILDING 2021-09-05 2021-09-05 Outpatient R KM [facility] [id number] Univers 12:20:00 12:29:07 LISAMITCH [facility] 2021-09-05 2021-09-05 Urgent Jason [facility] 1.2.840.114 [id number] Univers 12:20:00 12:29:07 Care Km Lisamitch HEALTH [id number] ity of [facility] 4.2.7.2.686 David as GLADIS?BLEA [id number] Ak [address] MEDICAL OFFICE BUILDING 2021-08-28 2021-08-28 Outpatient Daniel_T VFP VFP [id number] [facility] 10:47:00 10:47:00 [id number] Family Rivas e 2021-08-28 2021-08-28 Melaniestefano Gomez [facility] 1.2.840.114 [id number] Univers 00:00:00 00:00:00 [facility] 350.1.13.10 it y of [place] 4.2.7.2.686 David as GLADIS?BLEA [id number] [address] MEDICAL OFFICE THOMAS [facility] 2021-08-25 2021-08-25 Outpatient Austin GOMEZ [facility] [id number] 12:00:00 12:33:50 [facility] 2021-08-05 2021-08-05 Outpatient Daniel_T VFP VFP [id number] [address] [place] [address] 06:43:00 06:43:00 [id number] Family Rivas e 2021-08-05 2021-08-05 Waqar [facility] [place] - [id number] V illage 00:00:00 00:00:00 [facility] Family RizoLoren - Pracjose martin holder MD: [id number] VM_JUAN J_Robin e Shadow [facility], [address], [place] [address] , Ph. 2021-08-03 2021-08-03 Outpatient Daniel_T VFP VFP [id number] [address] [place] [address] 11:57:00 11:57:00 [id number] Family Rivas e 2021-07-17 2021-07-17 Outpatient Baum_L [facility] [id number] [place] 00:00:00 00:00:00 [facility] 2021-07-16 2021-07-16 Outpatient Baum_L U [facility] [id number] [place] 03:56:00 03:56:00 [facility] 2021-07-16 2021-07-16 Ludwig [facility] [place] - [id number] [place] 00:00:00 00:00:00 MD Hollie: Hari Metr o [id number] [facility] Urology TELMA [facility] [place] - [address], [place] [address] , Ph. 2021-07-16 2021-07-16 Outpatient AGUSTÍN Browne [facility] [id number] 00:00:00 00:00:00 Ludwig [id number] 2021-06-19 2021-06-19 Outpatient Hollie_Jarrell [facility] U [id number] [place] 12:09:00 12:09:00 [facility] 2021-06-01 2021-06-02 Inpatient FOUZIA Garvin, HCAW[facility] INTE [id number] [facility] 11:07:00 16:36:00 Marcello 55 [facility] 2021-05-28 2021-05-28 Outpatient FOUZIA Garvin, HCAWU RADI [id number] [facility] 16:15:00 16:15:00 Marcello 50 [facility] 2021-04-28 2021-05-12 Inpatient EL Akintokunbo [facility] WCAR [id number] [facility] 11:41:00 00:00:00 , January 82 [facility] 2021-04-10 2021-04-21 Inpatient EL Alma, HCAW[facility] REHA [id number] [facility] 20:01:00 11:15:00 Rafal 59 [facility] 2021-03-28 2021-04-10 Inpatient EL Waldo, HCA[facility] INTE [id number] [facility] 08:17:00 21:05:00 Radha 68 [facility] 2021-03-22 2021-03-22 Emergency [facility] [id number] Univers 11:49:00 14:14:00 Sandy [facility]13.10 [facility] 4.2.7.2.686 [facility] [id number] [place] [id number] [place] 2021-03-22 2021-03-22 Emergency X MIGUEL CTEVANGELINA ERT [id number] Univers 11:41:00 11:41:00 SANDY ity of [facility] 2021-03-05 2021-03-05 Mann HernandezC [id number] 00:00[facility]00 00:00:00 [facility] 2021-01-20 2021-01-20 Hospital FOUZIA Martinez [facility] [id number] 05:52:00 13:34:00 Encounter Fransisco AntonioDoretha Vieyra [facility] 2021-01-20 2021-01-20 Anesthesia Concepción, [facility] [id number] 10:05:00 12:25:00 Event [facility] 2021-01-20 2021-01-20 [facility] [id number] 09:30:00 12:00:00 [facility] 2021-01-20 2021-01-20 Travel [facility] [id number] [facility] 00:[facility]00 00:00:00 [facility] 2021-01-19 2021-01-[address] [facility] [id number] 08:25:00 23:59:00 Encounter [facility] 2021-01-19 2021-01-19 Outpatient EL [facility] [id number] [facility] 00:00:00 00:00:00 2021-01-19 2021-01-19 Travel [facility] [id number] [facility] 00:[facility]00 00:00:00 [facility] 2021-01-16 2021-01-16 [facility] [id number] 10:30:00 23:59:00 [facility] 2021-01-16 2021-01-16 Outpatient EL [facility]H [facility] [id number] [facility] 00:00:00 00:00:00 2021-01-16 2021-01-16 Outpatient EL [facility] [id number] [facility] 00:00:00 00:00:00 2021-01-16 2021-01-16 Outpatient EL [facility] [id number] [facility] 00:00:00 00:00:00 2021-01-16 2021-01-16 Orders [facility] [id number] 00:00:00 00:00:00 Only [facility] 2021-01-15 2021-01-15 Outpatient SLEH [facility]H [id number] [facility] 00:00:00 00:00:00 2020-12-05 2020-12-09 Hospital ER Ricardo Hightower [facility] [id number] 14:20:00 13:18:00 [facility] 2020-12-08 2020-12-08 Anesthesia Ellis Abrams Do [facility] [id number] 16:40:00 17:49:00 Event Madiha Méndez Wilfredo [facility] 2020-12-08 2020-12-08 Surgery Freddie [facility] [id number] 15:30:00 16:44:00 Macarthur Nirali [facility] 2020-12-08 2020-12-08 Orders [facility] [id number] 00:00:00 00:00:00 Only [facility] 2020-12-05 2020-12-05 Emergency ER SLE Emergency [id number] [facility] 13:27:00 13:27:00 2020-12-05 2020-12-05 Travel [facility] [id number] [facility] 00:[facility]:00 00:00:00 [facility] 2020-06-23 2020-06-[address] [facility] [id number] 23:59:00 23:59:00 Encounter [facility] 2020-06-23 2020-06-23 Outpatient SLEH SLEH [id number] [facility] 00:00:00 00:00:00 2020-05-23 2020-05-23 Orders Min [facility] [id number] 00:00:00 00:00:00 Only [facility] 2019-11-30 2019-11-30 Outpatient MICHAEL SLE [facility]H [id number] [facility] 00:00:00 00:00:00 KAVYA 2010-12-22 2010-12-24 Inpatient MEGHA ElizondoTO SURG [id number] [facility] 07:05:00 16:45:00 Lobo [facility] Results Test Description Test Time Test Comments Results Result Comments Source - XR CHEST 1V 2022-10-12 20:29:00 [facility] : 1940 Sex: M Patient Name: COLE JEFFREY Unit No: [id number] EXAMS: CPT CODE: [id number] XR CHEST 1V [id number] EXAM: - XR CHEST 1V CLINICAL HISTORY: S/P ICD TECHNIQUE: Single frontal view. COMPARISON: Chest radiograph 06/02/2021, 06/01/2021 LOCATION: H65 FINDINGS: Sternotomy wires and mediastinal surgical clips are present. Left chest wall 3-lead defibrillator. The trachea appears normal. Cardiac silhouette is mildly enlarged. Moderate vascular congestion and mild diffuse central pulmonary edema. Suspect trace left pleural effusion. The right costophrenic angle is nonvisualized. Visualized soft tissues and osseous structures are grossly unremarkable. IMPRESSION: Cardiomegaly with signs of moderate vascular congestion, mild pulmonary edema, and suspect trace left pleural effusion. at 2028 Reported and signed by: Morgan Felix MD CC: Nnoi Maqruez MD; Ruiz Bhatti Technologist: Belinda MARIE ARRT Transcrpt Date/Tm/Trnsp: 10/12/2022 (2028) Rose.[email or web address] Orig Print D/T: S: 10/12/2022 (2031) [facility] NAME: COLE JEFFREY [id number] PHYS: [place] [address] : 1940 AGE: 82 SEX: M LOC: Mindy Alvarez PHONE #: [phone] EXAM DATE: 10/12/2022 STATUS: ADM IN FAX #: [phone] RADIOLOGY NO: PAGE 1 Signed Report CBC W/AUTO DIFF 2022-10-12 13:19:00 Test Item Value Reference Range Interpretation Comme nts WHITE BLOOD CELL (test code = WBC) 6.9 K/MM3 3.8-9.8 N RED BLOOD CELL (test code = RBC) 4.05 M/MM3 3.95-5.67 N HEMOGLOBIN (test code = HGB) 8.7 G/DL 12.4-16.7 L HEMATOCRIT (test code = HCT) 28.3 % 35.9-49.5 L MEAN CELL VOLUME (test code = MCV) 70 fL 81.7-96.1 L MEAN CELL HGB (test code = MCH) 21.5 pg 27.6-33.2 L MEAN CELL HGB CONCETRATION (test code = MCHC) 30.7 % 32.9-35. 5 L RED CELL DISTRIBUTION WIDTH (test code = RDW) 20.6 % 12.1-15. 2 H PLATELET COUNT (test code = PLT) 297 K/MM3 129-368 N MEAN PLATELET VOLUME (test code = MPV) 9.4 fl 7.4-10.4 N NEUTROPHIL % (test code = NT%) 57.3 % 43-75 N IMMATURE GRANULOCYTE % (test code = IG%) 0.3 % 0.0-2.0 N LYMPHOCYTE % (test code = LY%) 25.0 % 14-44 N MONOCYTE % (test code = MO%) 13.1 % 4-13 H EOSINOPHIL % (test code = EO%) 3.6 % 0-6 N BASOPHIL % (test code = BA%) 0.7 % 0-2 N NUCLEATED RBC % (test code = NRBC%) 0.0 % 0-1.0 N NEUTROPHIL # (test code = NT#) 3.94 K/mm3 2.0-7.6 N IMMATURE GRANULOCYTE # (test code = IG#) 0.02 x10 3/uL 0-0.03 N LYMPHOCYTE # (test code = LY#) 1.72 K/mm3 1.0-3.8 N MONOCYTE # (test code = MO#) 0.90 K/mm3 0.1-0.8 H EOSINOPHIL # (test code = EO#) 0.25 K/mm3 0.0-0.2 H BASOPHIL # (test code = BA#) 0.05 K/mm3 0.0-0.2 N NUCLEATED RBC # (test code = NRBC#) 0.00 K/mm3 0.0-0.1 N DIFFERENTIAL [id number] 13:19:00 Test Item Value Reference Range Interpretation Comments RBC MORPHOLOGY REQUIRED (test code = ABNORMAL RBCM) PLATELET ESTIMATE (test code = ADEQUATE ADEQUATE PLTEST) PLATELET MORPHOLOGY (test code = NORMAL NORMAL PLTMORPH) POIKILOCYTOSIS (test code = POIK) FEW NONE ANISOCYTOSIS (test code = ANISO) MODERATE NONE MICROCYTOSIS (test code = MICR) MODERATE NONE OVALOCYTES (test code = OVAL) FEW NONE DOHLE BODIES (test code = DB) FEW NONE PROTHROMBIN [id number] 11:44:00 Test Item Value Reference Range Interpretation Comments PROTHROMBIN TIME 13.4 SECONDS 9.4-12.7 H PATIENT (test code = PTP) INTERNATIONAL NORMAL 1.2 0.86-1.14 H The INR is to be RATIO (test code = used only for INR) monitoring oral anticoagulantth erap y. INDICATION INR VALUE ---- ---- ---- -------1. Prophylaxis, de ep venous thrombos is, including high risk surgery. 2.0 - 3.0 2. Prophylaxis, deep venous thrombosis, hip surgery, treatm ent for deep venous thrombosis or pulmonary prevention of systemic emboli sm in patients wit h valvular heart disease, atrial fibrillation, tissue heart va lve, or acute myocar dial infarction. 2.0 - 3.0 3. Project Lead al prosthesis hear t valves, recurre nt systemic emboli sm. 3.0 - 4.5 PTT [id number] 11:44:00 Test Item Value Reference Range Interpretation Comments PTT ACTIVATED (test code = APTT) 38.3 SECONDS 26.2-35.4 H BASIC METABOLIC [id number] 11:35:00 Test Item Value Reference Range Interpretation Comments SODIUM (test code = 138 MMOL/L 137-145 N NA) POTASSIUM (test code 4.6 MMOL/L 3.5-5.1 N = K) CHLORIDE (test code 101 MMOL/L 98-107 N = CL) CARBON DIOXIDE (test 34 MMOL/L 22-30 H code = CO2) ANION GAP (test code 8 MMOL/L 14-24 L = GAP) GLUCOSE (test code = 125 MG/DL 74-106 H GLU) BLOOD UREA NITROGEN 21 MG/DL 9-20 H (test code = BUN) GLOMERULAR > 60 The Glomerular FILTRATION RATE Filtration R ate is a (test code = GFR) calculated parameterbased on serum Creatinine, pat ient age and sex. GFR va luesless than 60 mL/min/ 1.73 square meters a re indicative ofCh ronic Kidney Disease. Values less than 15 mL/min/1.73squa re meters indicate Kidney failure. The calculation for GFR is based on the CK D-EPI (2020) calculat ion. This formulais race indifferent and is the recommended for hso for GFRby the Natio nal Kidney Foundati on for Adults.The GFR will not calculate if th e sex is unknown or if thepatient's ag e is <18 years. CREATININE (test 1.00 MG/DL 0.66-1.25 N code = CREAT) CALCIUM (test code = 9.0 MG/DL 8.4-10.2 N CA) [id number] 11:35:00 Test Item Value Reference Range Interpretation Comments MAGNESIUM (test code = MAG) 2.2 MG/DL 1.6-2.3 N PROTHROMBIN [id number] 06:57:00 Test Item Value Reference Range Interpretation Comments PT PATIENT (test 14.0 SECONDS 9.3-12.9 H code = PTP) INTERNATIONAL NORMAL 1.26 INR Unit 0.8-1.2 H TARGE T INR BY RATIO (test code = INDICATIO N Indication INR) INR1. Prophylax is of venous thrombos is 2.0 - 3.0 (orthoped ic surgery), Proph ylaxis of venous throm bosis (other than hig h-risk surgery), Treat ment of Deep Vein Thrombosis/Pulm onary Embolism, Preve ntion of systemic emb olism - Tissue heart va lves, Acute Myocardia l Infarction (to prevent systemic emboli sm), Valvular heart disease, Acute Myocardial Infa rction (to prevent sys temic embolism), Valv ular heart disease, Atrial Fibrillation, Bileaflet mecha nical valve in aortic position.2. Mec hanical prosthetic valv es (high risk), 2. 5 - 3.5 Presence of Lup us Anticoagulant o r Antiphospholipi d Antibodies, Pre vention of systemic emb olism - Acute Myocardia l Infarction (to prevent recurrent infar ct). THROMBOPLASTIN TIME [id number] 06:57:00 Test Item Value Reference Range Interpretation Comments THROMBOPLASTIN TIME PARTIAL 34.9 SECONDS 26-35 N (test code = PTT) COMPREHENSIVE METABOLIC [id number] 06:50:00 Test Item Value Reference Range Interpretation Comments SODIUM (test code 141 mmol/L 134-147 N = NA) POTASSIUM (test 3.9 mmol/L 3.4-5.0 N code = K) CHLORIDE (test 106 mmol/L 100-108 N code = CL) CARBON DIOXIDE 30 mmol/L 21-32 N (test code = CO2) ANION GAP (test 5.0 GAP calc 4.0-15.0 N code = GAP) GLUCOSE (test code 126 MG/DL 70-110 H = GLU) BLOOD UREA 25 MG/DL 7-18 H NITROGEN (test code = BUN) GLOMERULAR >=60 max >60 The Glomerular FILTRATION RATE estimate estGFR Filtratio n Rate is a (test code = GFR) calculated parameterbased on serum Creatinin e, patient age and sex. GFR valuesless than 60 mL/min/1.73 square meters are jeffery cative ofChronic Kidne y Disease. Values less than 15 mL/min/1.73squa re meters indicate Kidney failure. The calculation for GFR is based on the CK D-EPI (2020) calculat ion. This formulais race indifferent and is the recommended formula for GFR by the National Kidney Foundation for Adults.The GFR will not calculate i f the sex is unknown or if thepatient's ag e is <18 years. CREATININE (test 0.9 MG/DL 0.8-1.3 N code = CREAT) TOTAL PROTEIN 6.7 G/DL 6.4-8.2 N (test code = PROT) ALBUMIN (test code 3.4 G/DL 3.4-5.0 N = ALB) GLOBULIN (test 3.3 GM/dL code = GLOB) ALBUMIN/GLOBULIN 1.0 RATIO 1.2-2.2 L RATIO (test code = A/G) CALCIUM (test code 8.9 MG/DL 8.5-10.1 N = CA) BILIRUBIN TOTAL 0.80 MG/DL 0.2-1.2 N (test code = BILT) SGOT/AST (test 10 Unit/L 15-37 L code = AST) SGPT/ALT (test 14 Unit/L 12-78 N code = ALT) ALKALINE 54 Unit/L 50-136 N PHOSPHATASE TOTAL (test code = ALKP) LIPID PROFILE (CORONARY RISK)2022-10-09 06:50:00 Test Item Value Reference Range Interpretation Comments TRIGLYCERIDES (test 54 MG/DL 0-150 N code = TRIG) CHOLESTEROL (test 136 MG/DL 133-200 N code = CHOL) CHOLESTEROL/HDL 2.13 RATIO See_Comment RISK ASSOCIA DELORES WITH RATIO (test code = CHOL/HDL RATIOS: RISK CHOLHDL) MALE FEMALE1/2 AVERAGE 3.43 3.27AVERAG E 4.97 4.442X AVERAGE 9.55 7.053X AVERAGE 23.39 11.04 NOTE THAT THE REFERENCE VALUE IS RELATED TO RISK LEVELS ASRECOMMENDED B Y THE [facility]ATIONAL HE[facility], LUNG, [facility]OD [facility] . [Automated mess age] The system which ge nerated this result tra nsmitted reference range : 0-. The reference range was not used to interpr et this result as normal/abnormal . HDL CHOLESTEROL 64 MG/DL 40-59 H (test code = HDL) NON-HDL CHOLESTEROL 72 mg/dL <130 (test code = NHDL) LIPOPROTEIN LDL 70 MG/DL 0-129 N <100 OPTIMAL 100 - 129 (test code = LDL) NEAR OPTIM AL/ABOVE [id number] - 15 9 [id number] - 189 HIGH>OR= 190 VE RY HIGHNOTE THAT G UIDELINES ARE PROVIDED BY NATIONAL CHOLESTEROLEDUC ATION PROGRAM ADULT T REATMENT PANEL III LDL/HDL (test code 1.09 Ratio See_Comment L [Automat ed message] The = LDL/HDL) system which ge nerated this result tra nsmitted reference range : 1.48-3.22 Avg. The reference range was not used to interpr et this result as normal/abnormal . [id number] 06:50:00 Test Item Value Reference Range Interpretation Comments MAGNESIUM (test code = MAG) 2.1 MG/DL 1.8-2.4 N COVID 19 INHOUSE [id number] 06:49:00 Test Item Value Reference Range Interpretation Comments COVID 19 INHOUSE AG NEGATIVE Negative Per manu facturer, (test code = negative result s should [id number]) be treated aspr esumptive and, if inconsi stent with clinical signs andsymptoms or necessary for patient man agement, should betested with an alternative mol ecular assay. Negative resultsdo not preclude SA RS-CoV-2 infection and s hould not be usedas the s ole basis for patient man agement decisions. Nega tive results should be considered in t he context of apatient's r ecent exposures, hist ory, presence of cli nicalsigns and symptoms co nsistent with COVID-19. CBC W/AUTO [id number] 06:38:00 Test Item Value Reference Range Interpretation Comments WHITE BLOOD CELL (test code = 7.9 K/mm3 3.5-11.0 N WBC) RED BLOOD CELL (test code = 4.32 M/mm3 4.70-6.10 L RBC) HEMOGLOBIN (test code = HGB) 9.3 G/DL 12.3-15.9 L HEMATOCRIT (test code = HCT) 29.5 % 35.8-46.7 L MEAN CELL VOLUME (test code = 68.3 Fl 86.3-98.9 L MCV) MEAN CELL HGB (test code = MCH) 21.5 pg 28.9-34.4 L MEAN CELL HGB CONCETRATION 31.5 G/DL 32.1-34.5 L (test code = MCHC) RED CELL DISTRIBUTION WIDTH 20.1 SD 11.5-14.5 H (test code = RDW) PLATELET COUNT (test code = 319 K/mm3 150-450 N PLT) MEAN PLATELET VOLUME (test code 10.00 fL 7.0-9.6 H = MPV) NEUTROPHIL % (test code = NT%) 47.4 % 40-76 N IMMATURE GRANULOCYTE % (test 0.3 % 0.0-5.0 N code = IG%) LYMPHOCYTE % (test code = LY%) 32.2 % 20.5-51.1 N MONOCYTE % (test code = MO%) 13.2 % 1.7-9.3 H EOSINOPHIL % (test code = EO%) 6.3 % 0.0-6.0 H BASOPHIL % (test code = BA%) 0.6 % 0.0-2.0 N NUCLEATED RBC % (test code = 0.0 /100WBC% 0.0-1.0 N NRBC%) NEUTROPHIL # (test code = NT#) 3.8 K/mm3 1.8-7.6 N IMMATURE GRANULOCYTE # (test 0.02 x10 3/uL 0.00-0.03 N code = IG#) LYMPHOCYTE # (test code = LY#) 2.6 K/mm3 0.6-3.0 N MONOCYTE # (test code = MO#) 1.1 K/mm3 0.2-1.5 N EOSINOPHIL # (test code = EO#) 0.5 K/mm3 0.0-0.4 H BASOPHIL # (test code = BA#) 0.1 K/mm3 0.0-0.2 N NUCLEATED RBC # (test code = 0.0 K/mm3 0.00-0.01 N NRBC#) MANUAL DIFF REQUIRED (test code NO DIFF/SCN CRITERIA = MDIFF) POCT URINALYSIS W SPECIFIC [id number] 15:35:00 Test Item Value Reference Range Interpretation Comments POCT U SP GRAV (test 1.005 mg/dl 1.005-1.025 code = 3255) POCT PH U (test code = 6 mg/dl 5-8 3254) POCT U LEUK EST (test ++ Negative - Negative code = 3263) POCT U NIT (test code = negative Negative - Negative 3262) POCT U PROT (test code = ++100 Negative - Negative 3259) POCT U GLU (test code = normal Negative - Negative 3256) POCT U KETONE (test code negative Negative - Negative = 3258) POCT U UROBILI (test normal 0.2-1 code = 3260) POCT U BILI (test code = negative Negative - Negative 3261) POCT U BLD (test code = about 250 Quentin/uL Negative - Negative 3257) POCT U COLOR (test code = 3266) POCT U APPEAR (test code = 3267) [facility] 2022-07-15 10:41:00 Test Item Value Reference Range Interpretation Comments leukocytes (test code negative neg = leukocytes) urobilinogen (test 0.2 E.U./dL sm amt code = urobilinogen) (.5-1mg/dL) protein (test code = >=300 See_Comment A [Autom ated protein) message] The sy stem which generated this result transmitted reference range : <=150 mg/d. The reference range was not used to interpret this result as normal/abnormal . pH (test code = pH) 7.0 4.5-8 blood (test code = trace-intact See_Comment A [Automat ed blood) message] The sy stem which generated this result transmitted reference range : <=3 RBC. The reference range was not used to interpret this result as normal/abnormal . specific gravity >=1.030 1.005-1.025 (test code = specific gravity) ketone (test code = trace none A ketone) bilirubin (test code negative neg = bilirubin) glucose (test code = negative See_Comment [Autom ated glucose) message] The sy stem which generated this result transmitted reference range : <=130 mg/d. The reference range was not used to interpret this result as normal/abnormal . color (test code = yellow yellow color) clarity (test code = clear clear or cloudy clarity) nitrite (test code = negative neg nitrite) [facility] [id number] 00:00:00resultN-TERMINAL PRO-BNP 2022-03-26 05:09:42 Test Item Value Reference Range Interpretation Comments NT-proBNP (test code 2360 pg/mL See_Comment H [Autom ated = [id number]) message] The system which generated this result transmitted reference range : <=450. The reference range was not used to interpret this result as normal/abnormal . ALANNA (test code = ALANNA) Biotin has been reported to cause a negative bias, interpret results relative to patient's use of biotin. Lab Interpretation Abnormal (test code = 98372-2) [facility] (73366[facility]2022-03-26 05:01:41 Test Item Value Reference Range Interpretation Comments NA (test code = 135 mmol/L 135-145 4002566026) K (test code = 4.3 mmol/L 3.5-5 1113284498) CL (test code = 95 mmol/L 98-108 L 1798513477) CO2 TOTAL (test code = 30 mmol/L 23-31 4033972889) AGAP (test code = 2-16 6330095531) BUN (test code = 21 mg/dL 7-23 6589385482) GLUCOSE (test code = 106 mg/dL 70-110 2294150518) CREATININE (test code = 1.29 mg/dL 0.6-1.25 H 5088360517) TOTAL BILI (test code = 0.6 mg/dL 0.1-1.7 8538555659) CALCIUM (test code = 9.1 mg/dL 8.6-10.6 2090927910) T PROTEIN (test code = 6.4 g/dL 6.3-8.2 2268352268) ALBUMIN (test code = 4.2 g/dL 3.5-5 0475205884) ALK PHOS (test code = 66 U/L 34-122 3046865309) ALTv (test code = 16 U/L 5-50 1742-6) AST(SGOT) (test code = 20 U/L 13-40 5975079756) eGFR (test code = mL/min/1.73m2 5575196315) ALANNA (test code = ALANNA) Association of [...] tests). Lab Interpretation Abnormal (test code = 45300-4) [facility] WITH [id number] 04:22:19 Test Item Value Reference Range Interpretation Comments WBC (test code = See_Comment [Automated 1090-2) message] The sy stem which generated this result transmitted reference range : 4.20 - 10.70 10*3/?L. The reference range was not used to interpret this result as normal/abnormal . RBC (test code = See_Comment L [Automated 789-8) message] The sy stem which generated this result transmitted reference range : 4.26 - 5.52 10*6/?L. The reference range was not used to interpret this result as normal/abnormal . HGB (test code = 9.6 g/dL 12.2-16.4 L 718-7) HCT (test code = 29.6 % 38.4-49.3 L 4544-3) MCV (test code = 75.3 fL 81.7-95.6 L 787-2) MCH (test code = 24.4 pg 26.1-32.7 L 785-6) MCHC (test code = 32.4 g/dL 31.2-35 786-4) RDW-SD (test code = 48.1 fL 38.5-51.6 18125-0) RDW-CV (test code = 17.9 % 12.1-15.4 H 788-0) PLT (test code = See_Comment [Automated 777-3) message] The sy stem which generated this result transmitted reference range : 150 - 328 10*3/ ?L. The reference r dori was not used to interpret this result as normal/abnormal . MPV (test code = 10.3 fL 9.8-13 33292-7) NRBC/100 WBC (test See_Comment [Automat ed code = 4134431011) message] The system which generated this result transmitted reference range : 0.0 - 10.0 /100 WBCs. The refer ence range was not u sed to interpret th is result as normal/abnormal . NRBC x10^3 (test code See_Comment [Auto mated = 3184922250) message] The s ystem which generated this result transmitted reference range : 10*3/?L. The reference range was not used to interpret this result as normal/abnormal . GRAN MAT (NEUT) % 64.3 % (test code = 770-8) IMM GRAN % (test code 0.30 % = 6233538008) LYMPH % (test code = 18.4 % 736-9) MONO % (test code = 12.8 % 5905-5) EOS % (test code = 3.5 % 713-8) BASO % (test code = 0.7 % 706-2) GRAN MAT x10^3(ANC) 5.83 10*3/uL 1.99-6.95 (test code = 2094510683) IMM GRAN x10^3 (test 0.03 10*3/uL 0-0.06 code = 5013784765) LYMPH x10^3 (test code 1.67 10*3/uL 1.09-3.23 = 731-0) MONO x10^3 (test code 1.16 10*3/uL 0.36-1.02 H = 742-7) EOS x10^3 (test code = 0.32 10*3/uL 0.06-0.53 711-2) BASO x10^3 (test code 0.06 10*3/uL 0.01-0.09 = 704-7) Lab Interpretation Abnormal (test code = 74116-3) [facility] 2022-02-19 00:00:00 Test Item Value Reference Range Interpretation Comments Bacteria identified in Urine by see note Culture (test code = 630-4) [facility]INALYS[facility] W SPECIFIC [id number] 22:32:00 Test Item Value Reference Range Interpretation Comments POCT U SP GRAV (test code = 1.010 mg/dl 1.005-1.025 5) POCT PH U (test code = 3254) 7 mg/dl 5-8 POCT U LEUK EST (test code = ++ Negative - Negative 3263) POCT U NIT (test code = 3262) pos Negative - Negative POCT U PROT (test code = Negative - Negative 3259) POCT U GLU (test code = 3256) norm Negative - Negative POCT U KETONE (test code = neg Negative - Negative 3258) POCT U UROBILI (test code = norm 0.2-1 0) POCT U BILI (test code = neg Negative - Negative 3261) POCT U BLD (test code = 3257) Negative - Negative POCT U COLOR (test code = yellow 3266) POCT U APPEAR (test code = cloudy 3267) Lab Interpretation (test code Abnormal = 08600-2) [facility]em[facility] panel 2021-10-30 12:34:57 Test Item Value Reference Range Interpretation Comments Hemoglobin A1C Fingerstick: (test code 5.9 = Hemoglobin A1C Fingerstick:) [facility] OrleansGlucose [Mass/volume] in Capillary [id number] 12:34:48 Test Item Value Reference Range Interpretation Comments Blood Glucose: mg/dl (test code = Blood 122 Glucose: mg/dl) [facility] OrleansCBC W/AUTO [id number] 11:35:00 Test Item Value Reference Range Interpretation Comments WHITE BLOOD CELL (test code = 7.3 K/MM3 3.8-9.8 N WBC) RED BLOOD CELL (test code = 3.93 M/MM3 3.95-5.67 L RBC) HEMOGLOBIN (test code = HGB) 9.3 G/DL 12.4-16.7 L HEMATOCRIT (test code = HCT) 30.3 % 35.9-49.5 L MEAN CELL VOLUME (test code = 77 fL 81.7-96.1 L MCV) MEAN CELL HGB (test code = MCH) 23.7 pg 27.6-33.2 L MEAN CELL HGB CONCETRATION 30.7 % 32.9-35.5 L (test code = MCHC) RED CELL DISTRIBUTION WIDTH 23.0 % 12.1-15.2 H (test code = RDW) PLATELET COUNT (test code = 338 K/MM3 129-368 N PLT) MEAN PLATELET VOLUME (test code 8.9 fl 7.4-10.4 N = MPV) NEUTROPHIL % (test code = NT%) 58.8 % 43-75 N IMMATURE GRANULOCYTE % (test 0.4 % 0.0-2.0 N code = IG%) LYMPHOCYTE % (test code = LY%) 24.6 % 14-44 N MONOCYTE % (test code = MO%) 12.0 % 4-13 N EOSINOPHIL % (test code = EO%) 3.7 % 0-6 N BASOPHIL % (test code = BA%) 0.5 % 0-2 N NUCLEATED RBC % (test code = 0.0 % 0-1.0 N NRBC%) NEUTROPHIL # (test code = NT#) 4.29 K/mm3 2.0-7.6 N IMMATURE GRANULOCYTE # (test 0.03 x10 3/uL 0-0.03 N code = IG#) LYMPHOCYTE # (test code = LY#) 1.80 K/mm3 1.0-3.8 N MONOCYTE # (test code = MO#) 0.88 K/mm3 0.1-0.8 H EOSINOPHIL # (test code = EO#) 0.27 K/mm3 0.0-0.2 H BASOPHIL # (test code = BA#) 0.04 K/mm3 0.0-0.2 N NUCLEATED RBC # (test code = 0.00 K/mm3 0.0-0.1 N NRBC#) DIFFERENTIAL [id number] 11:35:00 Test Item Value Reference Range Interpretation Comments RBC MORPHOLOGY REQUIRED (test code = ABNORMAL RBCM) PLATELET ESTIMATE (test code = ADEQUATE ADEQUATE PLTEST) PLATELET MORPHOLOGY (test code = NORMAL NORMAL PLTMORPH) POIKILOCYTOSIS (test code = POIK) FEW NONE ANISOCYTOSIS (test code = ANISO) MODERATE NONE MICROCYTOSIS (test code = MICR) MODERATE NONE ACANTHOCYTES (test code = ACAN) FEW NONE OVALOCYTES (test code = OVAL) FEW NONE BASIC METABOLIC [id number] 11:03:00 Test Item Value Reference Range Interpretation Comments SODIUM (test code = 133 MMOL/L 137-145 L NA) POTASSIUM (test code = 4.1 MMOL/L 3.5-5.1 N K) CHLORIDE (test code = 94 MMOL/L 98-107 L CL) CARBON DIOXIDE (test 30 MMOL/L 22-30 N code = CO2) ANION GAP (test code = 13 MMOL/L 14-24 L GAP) GLUCOSE (test code = 108 MG/DL 74-106 H GLU) BLOOD UREA NITROGEN 28 MG/DL 9-20 H (test code = BUN) GLOMERULAR FILTRATION > 60 Report ing units: RATE (test code = GFR) ml/mi n/1.73 m2 (Modified MDRD Formula)Referen ce Range: > or = 6 0 ml/min/1.73 m2 CREATININE (test code 1.10 MG/DL 0.66-1.25 N = CREAT) CALCIUM (test code = 8.7 MG/DL 8.4-10.2 N CA) [id number] 11:03:00 Test Item Value Reference Range Interpretation Comments MAGNESIUM (test code = MAG) 1.9 MG/DL 1.6-2.3 N PROTHROMBIN [id number] 10:48:00 Test Item Value Reference Range Interpretation Comments PROTHROMBIN TIME 26.6 SECONDS 9.4-12.7 H PATIENT (test code = PTP) INTERNATIONAL NORMAL 2.3 0.86-1.14 H The INR is to be RATIO (test code = used only for INR) monitoring oral anticoagulantth erap y. INDICATION I NR VALUE ---- ---- ---- -------1. Prophylaxis, de ep venous thrombos is, including high risk surgery. 2.0 - 3.0 2. Prophylaxis, deep venous thrombosis, hip surgery, treatm ent for deep venous thrombosis or pulmonary prevention of systemic emboli sm in patients wit h valvular heart disease, atrial fibrillation, tissue heart va lve, or acute myocar dial infarction. 2. 0 - 3.0 3. Project Lead al prosthesis hear t valves, recurre nt systemic emboli sm. 3.0 - 4.5 PTT [id number] 10:48:00 Test Item Value Reference Range Interpretation Comments PTT ACTIVATED (test code = APTT) 44.1 SECONDS 26.2-35.4 H COVID 19 Asymptomatic IH [id number] 09:40:00 Test Item Value Reference Range Interpretation Comments COVID 19 NEGATIVE Negative "Negative resul ts from Asymptomatic IH AG patients with symptom (test code = onset beyondfiv e days, COVNONPUIAG) should be treat ed as presumptive, andconfirmation with a molecular assay [...] amount of virus (antigen) in the sample." Hemoglobin A1c measurement device [id number] 16:51:43 Test Item Value Reference Range Interpretation Comments Hemoglobin A1C Fingerstick: (test code 6.1 = Hemoglobin A1C Fingerstick:) [facility] OrleansGlucose [Mass/volume] in Capillary [id number] 16:31:45 Test Item Value Reference Range Interpretation Comments Blood Glucose: mg/dl (test code = Blood 146 Glucose: mg/dl) [facility] OrleansGLU[facility]ED[facility] [id number] 15:35:00 Test Item Value Reference Range Interpretation Comments GLUCOSE BEDSIDE TESTING (test code = 69 MG/DL 60-99 N GLUBED) GLUCOSE BEDSIDE [id number] 11:19:00 Test Item Value Reference Range Interpretation Comments GLUCOSE BEDSIDE TESTING (test code 105 MG/DL 60-99 H = GLUBED) - XR CHEST [id number] 08:24:00 [facility] 1940 Sex: M Patient Name: COLE JEFFREY Unit No: [id number] EXAMS: CPT CODE: [id number] XR CHEST 1V 40133 C3 TIME OF STUDY: 06/02/2021 6:00 AM REASON FOR EXAM: S/P L THORACENTESIS COMPARISON: 1 day prior FINDINGS: AP view of the chest was obtained. Lungs: Patchy bilateral airspace opacities are present. Pleura: No pneumothorax. Small left pleural effusion. 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 The median sternotomy wires are in the expected configuration. . IMPRESSION: 1. Mild pulmonary edema and small left pleural effusion. Electronically Signedby Gabo Toth MD on 06/02/2021 at 0824 Reported and signed by: Gabo Toth MD CC: Noni Marquez MD Technologist: Rebecca Quinonez RT(R) Transcrpt Date/Tm/Trnsp: 06/02/2021 (823) t.SDR.SI1 Orig Print D/T: S: 06/02/2021 (827) [facility] NAME: COLE JEFFREY [id number] PHYS: [place] [address] : 1940 AGE: 81 SEX: M LOC: Z.350 A PHONE #: [phone] EXAM DATE: 06/02/2021 STATUS: ADM IN FAX #: [phone] RADIOLOGY NO: PAGE 1 Signed ReportGLUCOSE BEDSIDE [id number] 07:10:00 Test Item Value Reference Range Interpretation Comments GLUCOSE BEDSIDE TESTING (test code 109 MG/DL 60-99 H = GLUBED) GLUCOSE BEDSIDE [id number] 23:58:00 Test Item Value Reference Range Interpretation Comments GLUCOSE BEDSIDE TESTING (test code 189 MG/DL 60-99 H = GLUBED) - XR CHEST [id number] 20:42:00 [facility] : 1940 Sex: M Patient Name: COLE JEFFREY Unit No: [id number] EXAMS: CPT CODE: [id number] XR CHEST 1V 18628 EXAM: - XR CHEST 1V INDICATION: S/P L THORACENTESIS H62 TECHNIQUE: Frontal view of the chest. FINDINGS:Left pleural effusion appears to be decreased compared with the chest x-ray performed earlier the same day, now small. No pneumothorax seen. Unchanged pulmonary opacities. Cardiomediastinal silhouetteand osseous structures appear unchanged. IMPRESSION: Decreased left pleural effusion. No pneumothorax seen. at 2041 Reported and signed by: Giovany Talamantes MD CC: Noni Marquez MD Technologist: RT Nazario(R) Transcrpt Date/Tm/Trnsp: 06/01/2021 (2041) [email or web address].[email or web address] Orig Print D/T: S: 06/01/2021 (2044) [facility] NAME: COLE JEFFREY [id number] [address] PHYS: [place] [address] : 1940 AGE: 81 SEX: M LOC: Z.350 A PHONE #: [phone] EXAM DATE: 06/01/2021 STATUS: ADM IN FAX #: RADIOLOGY NO: PAGE 1 Signed ReportGLUCOSE BEDSIDE [id number] 20:28:00 Test Item Value Reference Range Interpretation Comments GLUCOSE BEDSIDE TESTING (test code 130 MG/DL 60-99 H = GLUBED) GLUCOSE BEDSIDE [id number] 19:15:00 Test Item Value Reference Range Interpretation Comments GLUCOSE BEDSIDE TESTING (test code = 71 MG/DL 60-99 N GLUBED) GLUCOSE BEDSIDE [id number] 16:53:00 Test Item Value Reference Range Interpretation Comments GLUCOSE BEDSIDE TESTING (test code = 97 MG/DL 60-99 N GLUBED) COVID 19 Asymptomatic IH [id number] 16:20:00 Test Item Value Reference Range Interpretation Comments COVID 19 NEGATIVE Negative "Negative resul ts from Asymptomatic IH AG patients with symptom (test code = onset beyondfiv e days, COVNONPUIAG) should be treat ed as presumptive, andconfirmation with a molecular assay [...] in the sample." Spec Comments: PRE-OPBASIC METABOLIC [id number] 16:06:00 Test Item Value Reference Range Interpretation [...] = 8.8 MG/DL 8.4-10.2 N CA) PROTHROMBIN [id number] 16:04:00 Test Item Value Reference Range Interpretation Comments PROTHROMBIN TIME 14.8 SECONDS 9.5-12.7 H PATIENT (test code = PTP) INTERNATIONAL NORMAL 1.3 0.86-1.14 H The INR is to be RATIO (test code = used only for INR) monitoring oral anticoagulantth erap y. INDICATION I NR VALUE ---- ---- ---- -------1. Prophylaxis, de ep venous thrombos is, including high risk surgery. 2.0 - 3.0 2. Prophylaxis, deep venous thrombosis, hip surgery, treatm ent for deep venous thrombosis or pulmonary prevention of systemic emboli sm in patients wit h valvular heart disease, atrial fibrillation, tissue heart va lve, or acute myocar dial infarction. 2.0 - 3.0 3. Project Lead al prosthesis hear t valves, recurre nt systemic emboli sm. 3.0 - 4.5 PTT [id number] 16:04:00 Test Item Value Reference Range Interpretation Comments PTT ACTIVATED (test code = APTT) 34.6 SECONDS 25.1-36.5 CBC W/AUTO [id number] 15:53:00 Test Item Value Reference Range Interpretation [...] code = 0.00 K/mm3 0.0-0.1 N NRBC#) [facility] [id number] 13:00:00 [facility] : 1940 Sex: M Patient Name: COLE JEFFREY Unit No: [id number] EXAMS: CPT CODE: [id number] XR CHEST 1V 61039 EXAMINATION: - XR CHEST 1V. LOCATION: B2. HISTORY: PRE-OP. COMPARISON: Radiograph dated 05/28/2021. TECHNIQUE: Single AP view of the chest was obtained. FINDINGS: The left heart border is obscured. Mediansternotomy wires are present. There is mild coarsening of interstitial markings. Large left pleural effusion is present, increased since prior exam. No acute osseous abnormality is identified. IMPRESSION: Large left pleural effusion, increased since prior exam. Mild coarsening of bilateral interstitial markings. at 1300 Reported and signed by: Javad Mosquera MD CC: Noni Marquez MD Technologist: Deborah MARIE R Transcrpt Date/Tm/Trnsp:06/01/2021 (1300) t.CLARER.PR7 Orig Print D/T: S: 06/01/2021 (1303) [facility] NAME: COLE JEFFREY [id number] [address] PHYS: [place] [address] : 1940 AGE: 81 SEX: MACCT NO: [id number] LOC: Z.SRG PHONE #: [phone] EXAM DATE: 06/01/2021 STATUS: REG [facility] [place] FAX #: [phone] RADIOLOGY NO: PAGE 1 Signed Report- XR CHEST 2 V 2021-05-28 16:44:00 [facility] : 1940 Sex: M Patient Name: COLE STOREY Unit No: [id number] EXAMS: CPT CODE: [id number] XR CHEST 2 V 49408 B2EXAM: - XR CHEST 2 V HISTORY: SOB COMPARISON: 04/04/2021 FINDINGS: Median sternotomy wires again noted. Large left pleural effusion. Airspace infiltration the left lung base. The right lung is clear. No pneumothorax. The cardiac silhouette is within normal limits. No acute osseous abnormalities. IMPRESSION: Large left pleural effusion with passive atelectasis and/or pneumonia in the left lung base. at 1644 Reported and signed by: Sang Patton MD CC: Noni Marquez MD Technologist: LISBETH ReidRS, RT(R) Transcrpt Date/Tm/Trnsp: 05/28/2021 (1643) t.SDR.VB7 Orig Print D/T: S: 05/28/2021 (1647) [facility] NAME: COLE STOREY [address] [address] PHYS: [place] [address] : 1940 AGE: 81 SEX: M LOC: [facility] PHONE #: [phone] EXAM DATE: 05/28/2021 STATUS: REG CLI FAX #: [phone] RADIOLOGY NO: PAGE 1 Signed ReportGLUCOSE BEDSIDE [id number] 06:29:00 Test Item Value Reference Range Interpretation Comments GLUCOSE BEDSIDE TESTING (test code 127 MG/DL 60-99 H = GLUBED) GLUCOSE BEDSIDE [id number] 20:00:00 Test Item Value Reference Range Interpretation Comments GLUCOSE BEDSIDE TESTING (test code 122 MG/DL 60-99 H = GLUBED) GLUCOSE BEDSIDE [id number] 16:28:00 Test Item Value Reference Range Interpretation Comments GLUCOSE BEDSIDE TESTING (test code 167 MG/DL 60-99 H = GLUBED) GLUCOSE BEDSIDE [id number] 11:44:00 Test Item Value Reference Range Interpretation Comments GLUCOSE BEDSIDE TESTING (test code 151 MG/DL 60-99 H = GLUBED) GLUCOSE BEDSIDE [id number] 06:22:00 Test Item Value Reference Range Interpretation Comments GLUCOSE BEDSIDE TESTING (test code 122 MG/DL 60-99 H = GLUBED) PROTHROMBIN [id number] 05:23:00 Test Item Value Reference Range Interpretation Comments PROTHROMBIN TIME 31.2 SECONDS 9.5-12.7 H PATIENT (test code = PTP) INTERNATIONAL NORMAL 2.8 0.86-1.14 H The INR is to be RATIO (test code = used only for INR) monitoring oral anticoagulantth erap y. INDICATION I NR VALUE ---- ---- ---- -------1. Prophylaxis, de ep venous thrombos is, including high risk surgery. 2.0 - 3.0 2. Prophylaxis, deep venous thrombosis, hip surgery, treatm ent for deep venous thrombosis or pulmonary prevention of systemic emboli sm in patients wit h valvular heart disease, atrial fibrillation, tissue heart va lve, or acute myocar dial infarction. 2.0 - 3.0 3. Project Lead al prosthesis hear t valves, recurre nt systemic emboli sm. 3.0 - 4.5 GLUCOSE BEDSIDE [id number] 19:43:00 Test Item Value Reference Range Interpretation Comments GLUCOSE BEDSIDE TESTING (test code 124 MG/DL 60-99 H = GLUBED) GLUCOSE BEDSIDE [id number] 15:51:00 Test Item Value Reference Range Interpretation Comments GLUCOSE BEDSIDE TESTING (test code 140 MG/DL 60-99 H = GLUBED) GLUCOSE BEDSIDE [id number] 11:46:00 Test Item Value Reference Range Interpretation Comments GLUCOSE BEDSIDE TESTING (test code 157 MG/DL 60-99 H = GLUBED) GLUCOSE BEDSIDE [id number] 06:11:00 Test Item Value Reference Range Interpretation Comments GLUCOSE BEDSIDE TESTING (test code 106 MG/DL 60-99 H = GLUBED) PROTHROMBIN [id number] 05:38:00 Test Item Value Reference Range Interpretation Comments PROTHROMBIN TIME 36.8 SECONDS 9.5-12.7 H PATIENT (test code = PTP) INTERNATIONAL NORMAL 3.3 0.86-1.14 H The INR is to be RATIO (test code = used only for INR) monitoring oral anticoagulantth erap y. INDICATION I NR VALUE ---- ---- ---- -------1. Prophylaxis, de ep venous thrombos is, including high risk surgery. 2.0 - 3.0 2. Prophylaxis, deep venous thrombosis, hip surgery, treatm ent for deep venous thrombosis or pulmonary prevention of systemic emboli sm in patients wit h valvular heart disease, atrial fibrillation, tissue heart va lve, or acute myocar dial infarction. 2. 0 - 3.0 3. Project Lead al prosthesis hear t valves, recurre nt systemic emboli sm. 3.0 - 4.5 GLUCOSE BEDSIDE [id number] 20:36:00 Test Item Value Reference Range Interpretation Comments GLUCOSE BEDSIDE TESTING (test code 115 MG/DL 60-99 H = GLUBED) GLUCOSE BEDSIDE [id number] 16:42:00 Test Item Value Reference Range Interpretation Comments GLUCOSE BEDSIDE TESTING (test code 156 MG/DL 60-99 H = GLUBED) GLUCOSE BEDSIDE [id number] 11:49:00 Test Item Value Reference Range Interpretation Comments GLUCOSE BEDSIDE TESTING (test code 145 MG/DL 60-99 H = GLUBED) GLUCOSE BEDSIDE [id number] 07:15:00 Test Item Value Reference Range Interpretation Comments GLUCOSE BEDSIDE TESTING (test code 120 MG/DL 60-99 H = GLUBED) BASIC METABOLIC [id number] 06:10:00 Test Item Value Reference Range Interpretation [...] = 7.8 MG/DL 8.4-10.2 L CA) PROTHROMBIN [id number] 05:55:00 Test Item Value Reference Range Interpretation Comments PROTHROMBIN TIME 44.9 SECONDS 9.5-12.7 HH CALLED TO Jarrell Martinez& PATIENT (test code = READBAC K ON PTP) 04/18/21 AT 055 5 BY Marie Trevino INTERNATIONAL NORMAL 4.0 0.86-1.14 HH The INR is to be RATIO (test code = used only for INR) monitoring oral anticoagulantth erap y. INDICATION I NR VALUE ---- ---- ---- -------1. Prophylaxis, de ep venous thrombos is, including high risk surgery. 2.0 - 3.0 2. Prophylaxis, deep venous thrombosis, hip surgery, treatm ent for deep venous thrombosis or pulmonary prevention of systemic emboli sm in patients wit h valvular heart disease, atrial fibrillation, tissue heart va lve, or acute myocar dial infarction. 2.0 - 3.0 3. Project Lead al prosthesis hear t valves, recurre nt systemic emboli sm. 3.0 - 4.5 CBC W/AUTO [id number] 05:43:00 Test Item Value Reference Range Interpretation [...] 0.00 K/mm3 0.0-0.1 N NRBC#) GLUCOSE BEDSIDE [id number] 20:20:00 Test Item Value Reference Range Interpretation Comments GLUCOSE BEDSIDE TESTING (test code 153 MG/DL 60-99 H = GLUBED) GLUCOSE BEDSIDE [id number] 16:50:00 Test Item Value Reference Range Interpretation Comments GLUCOSE BEDSIDE TESTING (test code 143 MG/DL 60-99 H = GLUBED) GLUCOSE BEDSIDE [id number] 10:54:00 Test Item Value Reference Range Interpretation Comments GLUCOSE BEDSIDE TESTING (test code 158 MG/DL 60-99 H = GLUBED) GLUCOSE BEDSIDE [id number] 06:13:00 Test Item Value Reference Range Interpretation Comments GLUCOSE BEDSIDE TESTING (test code 113 MG/DL 60-99 H = GLUBED) PROTHROMBIN [id number] 05:35:00 Test Item Value Reference Range Interpretation Comments PROTHROMBIN TIME 34.3 SECONDS 9.5-12.7 H PATIENT (test code = PTP) INTERNATIONAL NORMAL 3.1 0.86-1.14 H The INR is to be RATIO (test code = used only for INR) monitoring oral anticoagulantth erap y. INDICATION INR VALUE ---- ---- ---- -------1. Prophylaxis, de ep venous thrombos is, including high risk surgery. 2.0 - 3.0 2. Prophylaxis, deep venous thrombosis, hip surgery, treatm ent for deep venous thrombosis or pulmonary prevention of systemic emboli sm in patients wit h valvular heart disease, atrial fibrillation, tissue heart va lve, or acute myocar dial infarction. 2.0 - 3.0 3. Project Lead al prosthesis hear t valves, recurre nt systemic emboli sm. 3.0 - 4.5 GLUCOSE BEDSIDE [id number] 19:54:00 Test Item Value Reference Range Interpretation Comments GLUCOSE BEDSIDE TESTING (test code 126 MG/DL 60-99 H = GLUBED) GLUCOSE BEDSIDE [id number] 16:58:00 Test Item Value Reference Range Interpretation Comments GLUCOSE BEDSIDE TESTING (test code 141 MG/DL 60-99 H = GLUBED) GLUCOSE BEDSIDE [id number] 12:09:00 Test Item Value Reference Range Interpretation Comments GLUCOSE BEDSIDE TESTING (test code 184 MG/DL 60-99 H = GLUBED) GLUCOSE BEDSIDE [id number] 05:59:00 Test Item Value Reference Range Interpretation Comments GLUCOSE BEDSIDE TESTING (test code = 99 MG/DL 60-99 N GLUBED) PROTHROMBIN [id number] 05:25:00 Test Item Value Reference Range Interpretation Comments PROTHROMBIN TIME 29.7 SECONDS 9.5-12.7 H PATIENT (test code = PTP) INTERNATIONAL NORMAL 2.7 0.86-1.14 H The INR is to be RATIO (test code = used only for INR) monitoring oral anticoagulantth erap y. INDICATION I NR VALUE ---- ---- ---- -------1. Prophylaxis, de ep venous thrombos is, including high risk surgery. 2.0 - 3.0 2. Prophylaxis, deep venous thrombosis, hip surgery, treatm ent for deep venous thrombosis or pulmonary prevention of systemic emboli sm in patients wit h valvular heart disease, atrial fibrillation, tissue heart va lve, or acute myocar dial infarction. 2.0 - 3.0 3. Project Lead al prosthesis hear t valves, recurre nt systemic emboli sm. 3.0 - 4.5 Comments to Conversion Worker: YGLUCOSE BEDSIDE [id number] 19:46:00 Test Item Value Reference Range Interpretation Comments GLUCOSE BEDSIDE TESTING (test code 140 MG/DL 60-99 H = GLUBED) GLUCOSE BEDSIDE [id number] 16:59:00 Test Item Value Reference Range Interpretation Comments GLUCOSE BEDSIDE TESTING (test code 173 MG/DL 60-99 H = GLUBED) GLUCOSE BEDSIDE [id number] 11:34:00 Test Item Value Reference Range Interpretation Comments GLUCOSE BEDSIDE TESTING (test code 150 MG/DL 60-99 H = GLUBED) PROTHROMBIN [id number] 05:57:00 Test Item Value Reference Range Interpretation Comments PROTHROMBIN TIME 25.2 SECONDS 9.5-12.7 H PATIENT (test code = PTP) INTERNATIONAL NORMAL 2.3 0.86-1.14 H The INR is to be RATIO (test code = used only for INR) monitoring oral anticoagulantth erap y. INDICATION I NR VALUE ---- ---- ---- -------1. Prophylaxis, de ep venous thrombos is, including high risk surgery. 2.0 - 3.0 2. Prophylaxis, deep venous thrombosis, hip surgery, treatm ent for deep venous thrombosis or pulmonary prevention of systemic emboli sm in patients wit h valvular heart disease, atrial fibrillation, tissue heart va lve, or acute myocar dial infarction. 2.0 - 3.0 3. Project Lead al prosthesis hear t valves, recurre nt systemic emboli sm. 3.0 - 4.5 GLUCOSE BEDSIDE [id number] 05:48:00 Test Item Value Reference Range Interpretation Comments GLUCOSE BEDSIDE TESTING (test code = 87 MG/DL 60-99 N GLUBED) GLUCOSE BEDSIDE [id number] 20:42:00 Test Item Value Reference Range Interpretation Comments GLUCOSE BEDSIDE TESTING (test code = 95 MG/DL 60-99 N GLUBED) GLUCOSE BEDSIDE [id number] 16:22:00 Test Item Value Reference Range Interpretation Comments GLUCOSE BEDSIDE TESTING (test code 110 MG/DL 60-99 H = GLUBED) GLUCOSE BEDSIDE [id number] 11:23:00 Test Item Value Reference Range Interpretation Comments GLUCOSE BEDSIDE TESTING (test code 101 MG/DL 60-99 H = GLUBED) GLUCOSE BEDSIDE [id number] 06:34:00 Test Item Value Reference Range Interpretation Comments GLUCOSE BEDSIDE TESTING (test code = 66 MG/DL 60-99 N GLUBED) PROTHROMBIN [id number] 05:54:00 Test Item Value Reference Range Interpretation Comments PROTHROMBIN TIME 20.1 SECONDS 9.5-12.7 H PATIENT (test code = PTP) INTERNATIONAL NORMAL 1.8 0.86-1.14 H The INR is to be RATIO (test code = used only for INR) monitoring oral anticoagulantth erap y. INDICATION I NR VALUE ---- ---- ---- -------1. Prophylaxis, de ep venous thrombos is, including high risk surgery. 2.0 - 3.0 2. Prophylaxis, deep venous thrombosis, hip surgery, treatm ent for deep venous thrombosis or pulmonary prevention of systemic emboli sm in patients wit h valvular heart disease, atrial fibrillation, tissue heart va lve, or acute myocar dial infarction. 2.0 - 3.0 3. Project Lead al prosthesis hear t valves, recurre nt systemic emboli sm. 3.0 - 4.5 BASIC METABOLIC [id number] 05:45:00 Test Item Value Reference Range Interpretation [...] 8.0 MG/DL 8.4-10.2 L CA) CBC W/AUTO [id number] 05:36:00 Test Item Value Reference Range Interpretation [...] 0.00 K/mm3 0.0-0.1 N NRBC#) GLUCOSE BEDSIDE [id number] 19:46:00 Test Item Value Reference Range Interpretation Comments GLUCOSE BEDSIDE TESTING (test 70 MG/DL 60-99 N Notified Nurse~ code = GLUBED) GLUCOSE BEDSIDE [id number] 15:58:00 Test Item Value Reference Range Interpretation Comments GLUCOSE BEDSIDE TESTING (test 84 MG/DL 60-99 N Notified Nurse~ code = GLUBED) GLUCOSE BEDSIDE [id number] 11:58:00 Test Item Value Reference Range Interpretation Comments GLUCOSE BEDSIDE TESTING (test code = 79 MG/DL 60-99 N GLUBED) GLUCOSE BEDSIDE [id number] 06:24:00 Test Item Value Reference Range Interpretation Comments GLUCOSE BEDSIDE TESTING (test code = 70 MG/DL 60-99 N GLUBED) PROTHROMBIN [id number] 04:18:00 Test Item Value Reference Range Interpretation Comments PROTHROMBIN TIME 17.8 SECONDS 9.5-12.7 H PATIENT (test code = PTP) INTERNATIONAL NORMAL 1.6 0.86-1.14 H The INR is to be RATIO (test code = used only for INR) monitoring oral anticoagulantth erap y. INDICATION I NR VALUE ---- ---- ---- -------1. Prophylaxis, de ep venous thrombos is, including high risk surgery. 2.0 - 3.0 2. Prophylaxis, deep venous thrombosis, hip surgery, treatm ent for deep venous thrombosis or pulmonary prevention of systemic emboli sm in patients wit h valvular heart disease, atrial fibrillation, tissue heart va lve, or acute myocar dial infarction. 2.0 - 3.0 3. Project Lead al prosthesis hear t valves, recurre nt systemic emboli sm. 3.0 - 4.5 GLUCOSE BEDSIDE [id number] 20:30:00 Test Item Value Reference Range Interpretation Comments GLUCOSE BEDSIDE TESTING (test code = 73 MG/DL 60-99 N GLUBED) GLUCOSE BEDSIDE [id number] 16:04:00 Test Item Value Reference Range Interpretation Comments GLUCOSE BEDSIDE TESTING (test code 138 MG/DL 60-99 H = GLUBED) GLUCOSE BEDSIDE [id number] 11:10:00 Test Item Value Reference Range Interpretation Comments GLUCOSE BEDSIDE TESTING (test code 141 MG/DL 60-99 H = GLUBED) PROTHROMBIN [id number] 10:19:00 Test Item Value Reference Range Interpretation Comments PROTHROMBIN TIME 15.5 SECONDS 9.5-12.7 H PATIENT (test code = PTP) INTERNATIONAL NORMAL 1.4 0.86-1.14 H The INR is to be RATIO (test code = used only for INR) monitoring oral anticoagulantth erap y. INDICATION I NR VALUE ---- ---- ---- -------1. Prophylaxis, de ep venous thrombos is, including high risk surgery. 2.0 - 3.0 2. Prophylaxis, deep venous thrombosis, hip surgery, treatm ent for deep venous thrombosis or pulmonary prevention of systemic emboli sm in patients wit h valvular heart disease, atrial fibrillation, tissue heart va lve, or acute myocar dial infarction. 2.0 - 3.0 3. Project Lead al prosthesis hear t valves, recurre nt systemic emboli sm. 3.0 - 4.5 GLUCOSE BEDSIDE [id number] 06:29:00 Test Item Value Reference Range Interpretation Comments GLUCOSE BEDSIDE TESTING (test code 106 MG/DL 60-99 H = GLUBED) GLUCOSE BEDSIDE [id number] 20:59:00 Test Item Value Reference Range Interpretation Comments GLUCOSE BEDSIDE TESTING (test code 129 MG/DL 60-99 H = GLUBED) GLUCOSE BEDSIDE [id number] 16:08:00 Test Item Value Reference Range Interpretation Comments GLUCOSE BEDSIDE TESTING (test code 138 MG/DL 60-99 H = GLUBED) GLUCOSE BEDSIDE [id number] 12:00:00 Test Item Value Reference Range Interpretation Comments GLUCOSE BEDSIDE TESTING (test code 165 MG/DL 60-99 H = GLUBED) GLUCOSE BEDSIDE [id number] 06:00:00 Test Item Value Reference Range Interpretation Comments GLUCOSE BEDSIDE TESTING (test code 135 MG/DL 60-99 H = GLUBED) PROTHROMBIN [id number] 05:06:00 Test Item Value Reference Range Interpretation Comments PROTHROMBIN TIME 14.3 SECONDS 9.5-12.7 H PATIENT (test code = PTP) INTERNATIONAL NORMAL 1.3 0.86-1.14 H The INR is to be RATIO (test code = used only for INR) monitoring oral anticoagulantth erap y. INDICATION I NR VALUE ---- ---- ---- -------1. Prophylaxis, de ep venous thrombos is, including high risk surgery. 2.0 - 3.0 2. Prophylaxis, deep venous thrombosis, hip surgery, treatm ent for deep venous thrombosis or pulmonary prevention of systemic emboli sm in patients wit h valvular heart disease, atrial fibrillation, tissue heart va lve, or acute myocar dial infarction. 2.0 - 3.0 3. Project Lead al prosthesis hear t valves, recurre nt systemic emboli sm. 3.0 - 4.5 GLUCOSE BEDSIDE [id number] 22:19:00 Test Item Value Reference Range Interpretation Comments GLUCOSE BEDSIDE TESTING (test code 109 MG/DL 60-99 H = GLUBED) GLUCOSE BEDSIDE [id number] 17:50:00 Test Item Value Reference Range Interpretation Comments GLUCOSE BEDSIDE TESTING (test code 181 MG/DL 60-99 H = GLUBED) COVID 19 Asymptomatic IH [id number] 16:07:00 Test Item Value Reference Range Interpretation Comments COVID 19 NEGATIVE Negative "Negative resul ts from Asymptomatic IH AG patients with symptom (test code = onset beyondfiv e days, COVNONPUIAG) should be treat ed as presumptive, andconfirmation with a molecular assay [...] virus (antigen) in the sample." GLUCOSE BEDSIDE [id number] 12:31:00 Test Item Value Reference Range Interpretation Comments GLUCOSE BEDSIDE TESTING (test code 158 MG/DL 60-99 H = GLUBED) GLUCOSE BEDSIDE [id number] 08:05:00 Test Item Value Reference Range Interpretation Comments GLUCOSE BEDSIDE TESTING (test code 150 MG/DL 60-99 H = GLUBED) PROTHROMBIN [id number] 07:45:00 Test Item Value Reference Range Interpretation Comments PROTHROMBIN TIME 13.8 SECONDS 9.5-12.7 H PATIENT (test code = PTP) INTERNATIONAL NORMAL 1.2 0.86-1.14 H The INR is to be RATIO (test code = used only for INR) monitoring oral anticoagulantth erap y. INDICATION I NR VALUE ---- ---- ---- -------1. Prophylaxis, de ep venous thrombos is, including high risk surgery. 2.0 - 3.0 2. Prophylaxis, deep venous thrombosis, hip surgery, treatm ent for deep venous thrombosis or pulmonary prevention of systemic emboli sm in patients wit h valvular heart disease, atrial fibrillation, tissue heart va lve, or acute myocar dial infarction. 2. 0 - 3.0 3. Project Lead al prosthesis hear t valves, recurre nt systemic emboli sm. 3.0 - 4.5 GLUCOSE BEDSIDE [id number] 20:12:00 Test Item Value Reference Range Interpretation Comments GLUCOSE BEDSIDE TESTING (test code 169 MG/DL 60-99 H = GLUBED) GLUCOSE BEDSIDE [id number] 17:34:00 Test Item Value Reference Range Interpretation Comments GLUCOSE BEDSIDE TESTING (test code 163 MG/DL 60-99 H = GLUBED) GLUCOSE BEDSIDE [id number] 16:43:00 Test Item Value Reference Range Interpretation Comments GLUCOSE BEDSIDE TESTING (test code 148 MG/DL 60-99 H = GLUBED) GLUCOSE BEDSIDE [id number] 07:51:00 Test Item Value Reference Range Interpretation Comments GLUCOSE BEDSIDE TESTING (test code 160 MG/DL 60-99 H = GLUBED) BASIC METABOLIC [id number] 05:38:00 Test Item Value Reference Range Interpretation [...] 7.9 MG/DL 8.4-10.2 L CA) CBC W/AUTO [id number] 05:13:00 Test Item Value Reference Range Interpretation [...] 0.00 K/mm3 0.0-0.1 N NRBC#) GLUCOSE BEDSIDE [id number] 20:31:00 Test Item Value Reference Range Interpretation Comments GLUCOSE BEDSIDE TESTING (test code 131 MG/DL 60-99 H = GLUBED) GLUCOSE BEDSIDE [id number] 17:41:00 Test Item Value Reference Range Interpretation Comments GLUCOSE BEDSIDE TESTING (test code 207 MG/DL 60-99 H = GLUBED) GLUCOSE BEDSIDE [id number] 11:29:00 Test Item Value Reference Range Interpretation Comments GLUCOSE BEDSIDE TESTING (test code 199 MG/DL 60-99 H = GLUBED) GLUCOSE BEDSIDE [id number] 08:34:00 Test Item Value Reference Range Interpretation Comments GLUCOSE BEDSIDE TESTING (test code 183 MG/DL 60-99 H = GLUBED) GLUCOSE BEDSIDE [id number] 20:33:00 Test Item Value Reference Range Interpretation Comments GLUCOSE BEDSIDE TESTING (test code 153 MG/DL 60-99 H = GLUBED) GLUCOSE BEDSIDE [id number] 16:33:00 Test Item Value Reference Range Interpretation Comments GLUCOSE BEDSIDE TESTING (test code 180 MG/DL 60-99 H = GLUBED) GLUCOSE BEDSIDE [id number] 12:12:00 Test Item Value Reference Range Interpretation Comments GLUCOSE BEDSIDE TESTING (test code 232 MG/DL 60-99 H = GLUBED) GLUCOSE BEDSIDE [id number] 07:35:00 Test Item Value Reference Range Interpretation Comments GLUCOSE BEDSIDE TESTING (test code 176 MG/DL 60-99 H = GLUBED) BASIC METABOLIC [id number] 05:52:00 Test Item Value Reference Range Interpretation [...] code = 7.7 MG/DL 8.4-10.2 L CA) [id number] 05:52:00 Test Item Value Reference Range Interpretation Comments MAGNESIUM (test code = MAG) 2.1 MG/DL 1.6-2.3 N CBC W/AUTO [id number] 05:42:00 Test Item Value Reference Range Interpretation [...] 0.00 K/mm3 0.0-0.1 N NRBC#) GLUCOSE BEDSIDE [id number] 21:00:00 Test Item Value Reference Range Interpretation Comments GLUCOSE BEDSIDE TESTING (test code 193 MG/DL 60-99 H = GLUBED) GLUCOSE BEDSIDE [id number] 17:25:00 Test Item Value Reference Range Interpretation Comments GLUCOSE BEDSIDE TESTING (test code 141 MG/DL 60-99 H = GLUBED) GLUCOSE BEDSIDE [id number] 12:25:00 Test Item Value Reference Range Interpretation Comments GLUCOSE BEDSIDE TESTING (test code 172 MG/DL 60-99 H = GLUBED) GLUCOSE BEDSIDE [id number] 07:16:00 Test Item Value Reference Range Interpretation Comments GLUCOSE BEDSIDE TESTING (test code 169 MG/DL 60-99 H = GLUBED) [id number] 04:58:00 Test Item Value Reference Range Interpretation Comments DIGOXIN (test code = DIG) 0.7 NG/ML 0.8-2.0 L COMPREHENSIVE METABOLIC [id number] 04:54:00 Test Item Value Reference Range Interpretation [...] newinformation regarding the potential i nterference ofEltrombopag ( a bone marrow stimulan t used to treatthrombocyt onmenia and aplastic anemia ) with specific assays on the Vitros 5600 of which Total Protein is one of thoseassays per formed in our lab.Interfe rence testing perform ed at [facility] determined that Eltrombopag does interfere with Vitros Total Protein asfollowsEltrom bopag Interference fo r Vitros Product Total Protein:======= Eltrombopag Max Observed Av g. BiasConcentrati on Concentration Concentration== ==== 2.5 mg/dl 6.0 g/dl +0.41 +0.34 3.5 mg/dl 6.0 g /dl +0.50 +0.45 5 mg/dl 6 .0 g/dl +0.73 +0.65 2.5 mg/dl 8.0 g/dl +0.44 +0.4 1 3.5 mg/dl 8.0 g/dl +0.55 +0.52 5 mg/dl 8.0 g/dl +0.86 +0.77 ALBUMIN (test 2.8 G/DL 3.5-5.0 L code = ALB) CALCIUM (test 7.8 MG/DL 8.4-10.2 L code = CA) BILIRUBIN TOTAL 1.1 MG/DL 0.2-1.3 Eltrombopag Interference (test code = for Vitros Prod uct TBil, BILT) BuBc: Assa y Eltrombopag [place] lyte/ Max Observed Avg. B ias Concentration C oncentration Concentration== ====TBil 7mg/dl TBil/ 1. 2mg/dl +0.23mg.dl +0.2 0mg/dlBuBc 3.5mg/dl Bu/0.8 mg/dl +0.25mg/dl +0.2 4mg/dlBuBc 7 mg/dl Bu/14.2mg /dl +0.38mg/dl +0.2 5mg/dlBuBc 5mg/dl Bc/0mg/d l +0.25mg/dl +0.15mg/dlBuBc 3.5mg/dl Bc/2.8mg/dl +0. 25mg/dl +0.23mg/dl SGOT/AST (test 37 UNITS/L 17-59 code = AST) SGPT/ALT (test 52 UNITS/L 0-49 H code = ALT) ALKALINE 56 UNITS/L 38-126 PHOSPHATASE (test code = ALKP) CBC W/AUTO [id number] 04:51:00 Test Item Value Reference Range Interpretation [...] 0.02 K/mm3 0.0-0.1 N NRBC#) GLUCOSE BEDSIDE [id number] 23:43:00 Test Item Value Reference Range Interpretation Comments GLUCOSE BEDSIDE TESTING (test code 165 MG/DL 60-99 H = GLUBED) GLUCOSE BEDSIDE [id number] 17:32:00 Test Item Value Reference Range Interpretation Comments GLUCOSE BEDSIDE TESTING (test code 133 MG/DL 60-99 H = GLUBED) GLUCOSE BEDSIDE [id number] 17:24:00 Test Item Value Reference Range Interpretation Comments GLUCOSE BEDSIDE TESTING (test code 264 MG/DL 60-99 H = GLUBED) BASIC METABOLIC [id number] 09:21:00 Test Item Value Reference Range Interpretation [...] 7.5 MG/DL 8.4-10.2 L CA) HEPATIC FUNCTION [id number] 09:21:00 Test Item Value Reference Range Interpretation Comments TOTAL PROTEIN 5.2 G/DL 6.2-7.6 L [facility] Clinical Diagnostic (test code = has made us monique re of PROT) newinformation regarding the potential i nterference ofEltrombopag ( a bone marrow stimulan t used to treatthrombocyt onmenia and aplastic anemia ) with specific assays on the Vitros 5600 of which Total Protein is one of thoseassays per formed in our lab.Interfe rence testing perform ed at [facility] determined that Eltrombopag does interfere with Vitros Total Protein asfollowsEltrom bopag Interference fo r Vitros Product Total Protein:======= Eltrombopag Max Observed Av g. BiasConcentrati on Concentration Concentration== ==== 2.5 mg/dl 6.0 g/dl +0.41 +0.34 3.5 mg/dl 6.0 g /dl +0.50 +0.45 5 mg/dl 6 .0 g/dl +0.73 +0.65 2.5 mg/dl 8.0 g/dl +0.44 +0. 41 3.5 mg/dl 8.0 g/dl +0.55 +0.52 5 mg/dl 8.0 g/dl +0.86 +0.77 ALBUMIN (test 2.9 G/DL 3.5-5.0 L code = ALB) BILIRUBIN TOTAL 0.7 MG/DL 0.2-1.3 N Eltrombopag Interference (test code = for Vitros Prod uct TBil, BILT) BuBc: Assa y Eltrombopag [place] lyte/ Max Observed Avg. B ias Concentration Concentration Concentration== ====TBil 7mg/dl TBil/ 1. 2mg/dl +0.23mg.dl +0.2 0mg/dlBuBc 3.5mg/dl Bu/0.8 mg/dl +0.25mg/dl +0. 24mg/dlBuBc 7 mg/dl Bu/14.2 mg/dl +0.38mg/dl +0.2 5mg/dlBuBc 5mg/dl Bc/0mg/d l +0.25mg/dl +0.15mg/dlBuBc 3.5mg/dl Bc/2.8mg/dl +0. 25mg/dl +0.23mg/dl BILIRUBIN DIRECT 0.0 MG/DL 0.0-0.3 N Eltrombopag Interference (test code = for Vitros Prod uct TBil, BILD) BuBc: Assa y Eltrombopag [place] lyte/ Max Observed Avg. B ias Concentration C oncentration Concentration== ====TBil 7mg/dl TBil/ 1. 2mg/dl +0.23mg.dl +0.2 0mg/dlBuBc 3.5mg/dl Bu/0.8 mg/dl +0.25mg/dl +0.2 4mg/dlBuBc 7 mg/dl Bu/14.2mg /dl +0.38mg/dl +0.2 5mg/dlBuBc 5mg/dl Bc/0mg/d l +0.25mg/dl +0.15mg/dlBuBc 3.5mg/dl Bc/2.8mg/dl +0. 25mg/dl +0.23mg/dl SGOT/AST (test 48 UNITS/L 17-59 N code = AST) SGPT/ALT (test 51 UNITS/L 0-49 H code = ALT) ALKALINE 48 UNITS/L 38-126 N PHOSPHATASE (test code = ALKP) GLUCOSE BEDSIDE [id number] 07:58:00 Test Item Value Reference Range Interpretation Comments GLUCOSE BEDSIDE TESTING (test code 188 MG/DL 60-99 H = GLUBED) LACTIC [id number] 05:26:00 Test Item Value Reference Range Interpretation Comments LACTIC ACID (test code = LACT) 0.9 MMOL/L 0.7-2.1 N CBC W/AUTO [id number] 05:23:00 Test Item Value Reference Range Interpretation [...] 0.00 K/mm3 0.0-0.1 N NRBC#) GLUCOSE BEDSIDE [id number] 21:14:00 Test Item Value Reference Range Interpretation Comments GLUCOSE BEDSIDE TESTING (test code 178 MG/DL 60-99 H = GLUBED) GLUCOSE BEDSIDE [id number] 17:54:00 Test Item Value Reference Range Interpretation Comments GLUCOSE BEDSIDE TESTING (test code 184 MG/DL 60-99 H = GLUBED) GLUCOSE BEDSIDE [id number] 11:30:00 Test Item Value Reference Range Interpretation Comments GLUCOSE BEDSIDE TESTING (test code 211 MG/DL 60-99 H = GLUBED) - XR CHEST [id number] 08:20:00 [facility] 1940 Sex: M Patient Name: COLE JEFFREY Unit No: [id number] EXAMS: CPT CODE: [id number] XR CHEST 1V 26964 HISTORY: Status post CABG Comparison April 03, 2021 Location code: B2 FINDINGS: Frontal view of the chest demonstrates an enlarged cardiomediastinal silhouette, with central venous congestion. The trachea is midline. Mild layering left effusion with atelectasis. No pneumothorax. Right subclavian catheter in good position. The bones are intact. Median sternotomy wires. IMPRESSION: Mild cardiomegaly and central venous congestion with a layering left effusion and atelectasis at 0820 Reported and signed by: Glen Garay M.D. CC: Noni Maruqez MD; Aisha Lucas MD Technologist: Araceli Patrick, RT(R) Transcrpt Date/Tm/Trnsp: 04/04/2021 (819)[id number] Orig Print D/T: S: 04/04/2021 (822) [facility] NAME: COLE JEFFREY [id number] [address]: [place] [address] : 1940 AGE: 81 SEX: M LOC: Z.SI02 A PHONE #: [phone] EXAM DATE: 04/04/2021 STATUS: ADM IN FAX #: [phone] RADIOLOGY NO: PAGE 1 Signed ReportGLUCOSE BEDSIDE [id number] 07:36:00 Test Item Value Reference Range Interpretation Comments GLUCOSE BEDSIDE TESTING (test code 176 MG/DL 60-99 H = GLUBED) GLUCOSE BEDSIDE [id number] 21:45:00 Test Item Value Reference Range Interpretation Comments GLUCOSE BEDSIDE TESTING (test code 184 MG/DL 60-99 H = GLUBED) GLUCOSE BEDSIDE [id number] 17:51:00 Test Item Value Reference Range Interpretation Comments GLUCOSE BEDSIDE TESTING (test code 159 MG/DL 60-99 H = GLUBED) - XR CHEST [id number] 13:23:00 [facility] : 1940 Sex: M Patient Name: COLE JEFFREY Unit No: [id number] EXAMS: CPT CODE: [id number] XR CHEST 1V 31421 EXAMINATION: - XR CHEST 1V. LOCATION: B2. [...] CC: Noni Marquez MD; Aisha Lucas MD Technologist:Shelton Bhatt (RT) (R) Transcrpt Date/Tm/Trnsp: 04/03/2021 (9403) [id number] Orig Print D/T: S: 04/03/2021 (3536) [facility] NAME: WOJCIECHCOLE HICKMAN [address] PHYS: [place] [address] : 1940 AGE: 81 SEX: M LOC: Z.SI02 A PHONE #: [phone] EXAM DATE: 04/03/2021 STATUS: ADM IN FAX #: [phone] RADIOLOGY NO: PAGE 1 Signed ReportGLUCOSE BEDSIDE [id number] 12:15:00 Test Item Value Reference Range Interpretation Comments GLUCOSE BEDSIDE TESTING (test code 278 MG/DL 60-99 H = GLUBED) HGB [id number] 09:25:00 Test Item Value Reference Range Interpretation Comments HEMOGLOBIN (test code = HGB) 8.2 G/DL 12.4-16.7 L HEMATOCRIT (test code = HCT) 24.8 % 35.9-49.5 L [id number] 09:05:00 Test Item Value Reference Range Interpretation Comments POTASSIUM (test code = K) 4.3 MMOL/L 3.5-5.1 N [id number] 09:05:00 Test Item Value Reference Range Interpretation Comments CALCIUM (test code = CA) 7.8 MG/DL 8.4-10.2 L [id number] 09:05:00 Test Item Value Reference Range Interpretation Comments MAGNESIUM (test code = MAG) 2.4 MG/DL 1.6-2.3 H - XR CHEST [id number] 07:58:00 [facility] : 1940 Sex: M Patient Name: COLE JEFFREY Unit No: [id number] EXAMS: CPT CODE: [id number] XR CHEST 1V 81294 EXAMINATION: Frontal chest radiograph INDICATION: S/P CABG COMPARISON: Previous day LOCATION: S17 FINDINGS/ IMPRESSION: Subclavian catheter terminates at SVC. Unchanged enlarged cardiac silhouette. No significant change in mild bibasilar interstitial edema or pneumonia and trace left pleural effusion. No pneumothorax. at 0758 Reported and signed by: Kwame Calloway MD CC: Noni Marquez MD; Aisha Lucas MD Technologist: Miriam Herman Transcrpt Date/Tm/Trnsp: 04/03/2021 (0758) [email or web address] Orig Print D/T: S: 04/03/2021 (0801) [facility] NAME: COLE JEFFREY [address] [address] PHYS: [place] [address] : 1940 AGE: 81 SEX: M LOC: Z.SI02 A PHONE #: [phone] EXAM DATE: 04/03/2021 STATUS: ADM IN FAX #: [phone] RADIOLOGY NO: PAGE 1 Signed ReportGLUCOSE BEDSIDE [id number] 07:31:00 Test Item Value Reference Range Interpretation Comments GLUCOSE BEDSIDE TESTING (test code 258 MG/DL 60-99 H = GLUBED) [id number] 00:10:00 Test Item Value Reference Range Interpretation Comments POTASSIUM (test code = K) 4.3 MMOL/L 3.5-5.1 N [id number] 00:10:00 Test Item Value Reference Range Interpretation Comments CALCIUM (test code = CA) 7.4 MG/DL 8.4-10.2 L [id number] 00:10:00 Test Item Value Reference Range Interpretation Comments MAGNESIUM (test code = MAG) 2.4 MG/DL 1.6-2.3 H GLUCOSE BEDSIDE [id number] 20:35:00 Test Item Value Reference Range Interpretation Comments GLUCOSE BEDSIDE TESTING (test code 179 MG/DL 60-99 H = GLUBED) GLUCOSE BEDSIDE [id number] 16:32:00 Test Item Value Reference Range Interpretation Comments GLUCOSE BEDSIDE TESTING (test code 196 MG/DL 60-99 H = GLUBED) GLUCOSE BEDSIDE [id number] 11:12:00 Test Item Value Reference Range Interpretation Comments GLUCOSE BEDSIDE TESTING (test code 184 MG/DL 60-99 H = GLUBED) - XR CHEST [id number] 08:17:00 [facility] 1940 Sex: M Patient Name: COLE JEFFREY Unit No: [id number] EXAMS: CPT CODE: [id number] XR CHEST 1V [id number] EXAM: CHEST ONE VIEW INDICATION: S/P CABG LOCATION: B2 COMPARISON: April 01, 2021 TECHNIQUE: AP view of the chest FINDINGS: The right internal jugular catheter has been removed. There is a right central venous catheter in similar position. The heart size is enlarged. There is evidence of prior thoraci c surgery. There are diffuse congestive changes bilaterally. There are trace bilateral pleural effusions. No pneumothorax. The osseous structures are normal. IMPRESSION: Cardiomegaly with diffuse congestive changes bilaterally. No pneumothorax. at 0817 Reported and signed by: Eleanor Pablo MD CC: Noni Marquez MD; Aisha Lucas MD Technologist: Miriam Herman Transcrpt Date/Tm/Trnsp: 04/02/2021 (0817) 16 Orig Print D/T: S: 04/02/2021 (0820) [facility] Oni NAME: COLE JEFFREY [id number] PHYS: [place] [address] : 1940 AGE: 81 SEX: M LOC: Z.SI02 A PHONE #: [phone] EXAM DATE: 04/02/2021 STATUS: ADM IN FAX #: [phone] RADIOLOGY NO: PAGE 1 Signed ReportBASIC METABOLIC [id number] 08:15:00 Test Item Value Reference Range Interpretation [...] Is this a LINE draw? YCBC W/AUTO [id number] 08:08:00 Test Item Value Reference Range Interpretation [...] 0.00 K/mm3 0.0-0.1 N NRBC#) GLUCOSE BEDSIDE [id number] 08:06:00 Test Item Value Reference Range Interpretation Comments GLUCOSE BEDSIDE TESTING (test code 166 MG/DL 60-99 H = GLUBED) GLUCOSE BEDSIDE [id number] 20:49:00 Test Item Value Reference Range Interpretation Comments GLUCOSE BEDSIDE TESTING (test code 181 MG/DL 60-99 H = GLUBED) GLUCOSE BEDSIDE [id number] 14:21:00 Test Item Value Reference Range Interpretation Comments GLUCOSE BEDSIDE TESTING (test code 124 MG/DL 60-99 H = GLUBED) GLUCOSE BEDSIDE [id number] 11:44:00 Test Item Value Reference Range Interpretation Comments GLUCOSE BEDSIDE TESTING (test code 117 MG/DL 60-99 H = GLUBED) - XR CHEST [id number] 08:26:00 [facility] 1940 Sex: M Patient Name: COLE JEFFREY Unit No: [id number] EXAMS: CPT CODE: [id number] XR CHEST 1V [id number] REASON FOR EXAM: CABG. COMPARISON: March 31, 2021. Chest, portable single frontal view. The patienthas been extubated with the NG tube removed. Right subclavian line and Shelby-Cyrus catheter in good position. The lungs are well-inflated with atelectasis and postoperative changes on the left. Mild inter stitial changes could indicate mild interstitial edema. Heart size is enlarged median sternotomy wires. No right effusion or pneumothorax can be seen. Osseous structures appear to be intact. IMPRESSION: Remaining support lines intact. Postop changes of CABG with atelectasis at the left lower lung field. Cardiomegaly with mild vascular congestion. Location: 9 at 0826 Reported and signed by: MARCELLO POLLOCK MD CC: Noni Harvey; Santana Rust Technologist: Miriam Herman Transcrpt Date/Tm/Trnsp: 04/01/2021 (0826) [email or web address] Orig Print D/T: S: 04/01/2021 (0829) [facility] NAME: COLE JEFFREY [id number] [place] [address] PHYS: [place] [address] : 1940 AGE: 81 SEX: M LOC:Z.SI02 A PHONE #: [phone] EXAM DATE: 04/01/2021 STATUS: ADM IN FAX #: [phone] RADIOLOGY NO: PAGE 1 Signed ReportGLUCOSE BEDSIDE [id number] 07:50:00 Test Item Value Reference Range Interpretation Comments GLUCOSE BEDSIDE TESTING (test code 180 MG/DL 60-99 H = GLUBED) GLUCOSE BEDSIDE [id number] 06:00:00 Test Item Value Reference Range Interpretation Comments GLUCOSE BEDSIDE TESTING (test code 148 MG/DL 60-99 H = GLUBED) BASIC METABOLIC [id number] 04:42:00 Test Item Value Reference Range Interpretation [...] code = 7.6 MG/DL 8.4-10.2 L CA) [id number] 04:42:00 Test Item Value Reference Range Interpretation Comments MAGNESIUM (test code = MAG) 3.0 MG/DL 1.6-2.3 H CBC W/AUTO [id number] 04:24:00 Test Item Value Reference Range Interpretation [...] 0.00 K/mm3 0.0-0.1 N NRBC#) GLUCOSE BEDSIDE [id number] 04:06:00 Test Item Value Reference Range Interpretation Comments GLUCOSE BEDSIDE TESTING (test code 157 MG/DL 60-99 H = GLUBED) GLUCOSE BEDSIDE [id number] 01:24:00 Test Item Value Reference Range Interpretation Comments GLUCOSE BEDSIDE TESTING (test code 158 MG/DL 60-99 H = GLUBED) GLUCOSE BEDSIDE [id number] 23:16:00 Test Item Value Reference Range Interpretation Comments GLUCOSE BEDSIDE TESTING (test code 163 MG/DL 60-99 H = GLUBED) GLUCOSE BEDSIDE [id number] 22:03:00 Test Item Value Reference Range Interpretation Comments GLUCOSE BEDSIDE TESTING (test code 162 MG/DL 60-99 H = GLUBED) GLUCOSE BEDSIDE [id number] 21:38:00 Test Item Value Reference Range Interpretation Comments GLUCOSE BEDSIDE TESTING (test code 201 MG/DL 60-99 H = GLUBED) GLUCOSE BEDSIDE [id number] 19:19:00 Test Item Value Reference Range Interpretation Comments GLUCOSE BEDSIDE TESTING (test code 205 MG/DL 60-99 H = GLUBED) GLUCOSE BEDSIDE [id number] 18:43:00 Test Item Value Reference Range Interpretation Comments GLUCOSE BEDSIDE TESTING (test code 207 MG/DL 60-99 H = GLUBED) GLUCOSE BEDSIDE [id number] 17:34:00 Test Item Value Reference Range Interpretation Comments GLUCOSE BEDSIDE TESTING (test code 191 MG/DL 60-99 H = GLUBED) PROTHROMBIN [id number] 16:41:00 Test Item Value Reference Range Interpretation Comments PROTHROMBIN TIME 15.1 SECONDS 9.5-12.7 H PATIENT (test code = PTP) INTERNATIONAL NORMAL 1.4 0.86-1.14 H The INR is to be RATIO (test code = used only for INR) monitoring oral anticoagulantth erap y. INDICATION INR VALUE ---- ---- ---- -------1. Prophylaxis, de ep venous thrombos is, including high risk surgery. 2.0 - 3.0 2. Prophylaxis , deep venous thrombosis, hip surgery, treatm ent for deep venous thrombosis or pulmonary prevention of systemic emboli sm in patients wit h valvular heart disease, atrial fibrillation, tissue heart va lve, or acute myocar dial infarction. 2.0 - 3.0 3. Project Lead al prosthesis hear t valves, recurre nt systemic emboli sm. 3.0 - 4.5 PTT [id number] 16:41:00 Test Item Value Reference Range Interpretation Comments PTT ACTIVATED (test code = APTT) 24.6 SECONDS 25.1-36.5 L GLUCOSE BEDSIDE [id number] 16:31:00 Test Item Value Reference Range Interpretation Comments GLUCOSE BEDSIDE TESTING (test code 192 MG/DL 60-99 H = GLUBED) GLUCOSE BEDSIDE [id number] 16:30:00 Test Item Value Reference Range Interpretation Comments GLUCOSE BEDSIDE TESTING (test code 207 MG/DL 60-99 H = GLUBED) BASIC METABOLIC [id number] 16:25:00 Test Item Value Reference Range Interpretation [...] code = 7.2 MG/DL 8.4-10.2 L CA) [id number] 16:25:00 Test Item Value Reference Range Interpretation Comments MAGNESIUM (test code = MAG) 3.7 MG/DL 1.6-2.3 H CBC W/AUTO [id number] 16:10:00 Test Item Value Reference Range Interpretation [...] 0.00 K/mm3 0.0-0.1 N NRBC#) ARTERIAL BLOOD [id number] 15:50:00 Test Item Value Reference Range Interpretation [...] o and readback by DR. GARVIN by [id number] at 03/31/2021 3:40 :57 PM ABG DELIVERY [...] 0.1 % 0.4-1.5 L = METHGB) - XR CHEST [id number] 15:41:00 [facility] : 1940 Sex: M Patient Name: COLE JEFFREY Unit No: [id number] EXAMS: CPT CODE: [id number] XR CHEST 1V [id number] EXAM: CHEST ONE VIEW INDICATION: S/P CABG LOCATION: B2 COMPARISON: March 30, 2021 TECHNIQUE: AP viewof the chest FINDINGS: Tip of the endotracheal tube is 3.3 cm above the cristhian. The enteric tube tipcrosses the diaphragm. The right-sided Shelby-Cyrus catheter is seen in appropriate position. The heart size is normal. There is evidence of prior thoracic surgery. There are diffuse congestive changes bilaterally. No pneumothorax or pleural effusion is identified. The osseous structures are normal. IMPRESSION: Stable postoperative chest. Diffuse congestive changes bilaterally. Electronically Signedby Eleanor Pablo MD on 03/31/2021 at 1541 Reported and signed by: Eleanor Pablo MD CC: Noni Marquez MD; Santana Rust Technologist: Onelia Galloway RT(R) Transcrpt Date/Tm/Trnsp: 03/31/2021 (1541) [id number] Orig Print D/T: S: 03/31/2021 (1721) [facility] NAME: COLE JEFFREY [address] PHYS: [place] [address] : 1940 AGE: 81 SEX: M : Z.SI02 A PHONE #: [phone] EXAM DATE: 03/31/2021 STATUS: ADM IN FAX #: [phone] RADIOLOGY NO: PAGE 1 Signed ReportBASIC METABOLIC [id number] 15:24:00 Test Item Value Reference Range Interpretation [...] CA) PLEASE CALL RESULTS TO PHONE #: [phone] STATPROTHROMBIN [id number] 15:09:00 Test Item Value Reference Range Interpretation Comments PROTHROMBIN TIME 15.5 SECONDS 9.5-12.7 H PATIENT (test code = PTP) INTERNATIONAL NORMAL 1.4 0.86-1.14 H The INR is to be RATIO (test code = used only for INR) monitoring oral anticoagulantth erap y. INDICATION INR VALUE ---- ---- ---- -------1. Prophylaxis, de ep venous thrombos is, including high risk surgery. 2.0 - 3.0 2. Prophylaxis, deep venous thrombosis, hip surgery, treatm ent for deep venous thrombosis or pulmonary prevention of systemic emboli sm in patients wit h valvular heart disease, atrial fibrillation, tissue heart va lve, or acute myocar dial infarction. 2.0 - 3.0 3. Project Lead al prosthesis hear t valves, recurre nt systemic emboli sm. 3.0 - 4.5 PLEASE CALL RESULTS TO PHONE #: [phone] STATPTT [id number] 15:09:00 Test Item Value Reference Range Interpretation Comments PTT ACTIVATED (test code = APTT) 29.9 SECONDS 25.1-36.5 PLEASE CALL RESULTS TO PHONE #: [phone] STATCBC W/AUTO [id number] 14:55:00 Test Item Value Reference Range Interpretation [...] NRBC#) PLEASE CALL RESULTS TO PHONE #: [phone] [facility] ARTERIAL BLOOD [id number] 14:43:00 Test Item Value Reference Range Interpretation Comments POC ARTERIAL BLOOD GAS PH 7.366 7.35-7.45 N (test code = POCPHA) POC ARTERIAL BLOOD GAS PCO2 39.5 mmHg 35.0-45.0 N (test code = BGREWR6G) POC ARTERIAL BLOOD GAS PO2 550.9 75.0-100.0 HH (test code = OSPZP5M) POC HCO3 ARTERIAL (test 22.6 MMOL/L 20.0-26.0 N code = IDPIZL3C) POC BASE EXCESS (test code -2.6 MMOL/L -3.0-3.0 N = POCBEA) POC O2 SATURATION (test 100.0 % 92.0-98.5 H code = POCO2S) FIO2 (test code = FIO2A) 100 % 21-100 PaO2/FiO2 (test code = 550.90 mm/Hg QMA2FZH3) SODIUM (test code = NA/ABG) 141 MMOL/L [...] 0.7-2.0 HH = LACTP) POC ARTERIAL BLOOD [id number] 13:41:00 Test Item Value Reference Range Interpretation Comments POC ARTERIAL BLOOD GAS PH 7.377 7.35-7.45 N (test code = POCPHA) POC ARTERIAL BLOOD GAS PCO2 41.9 mmHg 35.0-45.0 N (test code = KTTGKA7W) POC ARTERIAL BLOOD GAS PO2 421.6 75.0-100.0 HH (test code = GJQAW6S) POC HCO3 ARTERIAL (test 24.6 MMOL/L 20.0-26.0 N code = LKSRMZ8I) POC BASE EXCESS (test code -0.6 MMOL/L -3.0-3.0 N = POCBEA) POC O2 SATURATION (test 100.0 % 92.0-98.5 H code = POCO2S) FIO2 (test code = FIO2A) 90 % 21-100 N PaO2/FiO2 (test code = 468.44 mm/Hg RHY3YBL7) SODIUM (test code = NA/ABG) 137 MMOL/L [...] 0.7-2.0 HH = LACTP) POC ARTERIAL BLOOD [id number] 13:08:00 Test Item Value Reference Range Interpretation Comments POC ARTERIAL BLOOD GAS PH 7.386 7.35-7.45 N (test code = POCPHA) POC ARTERIAL BLOOD GAS PCO2 36.8 mmHg 35.0-45.0 N (test code = JGYBHC8U) POC ARTERIAL BLOOD GAS PO2 437.8 75.0-100.0 HH (test code = TCNMZ8A) POC HCO3 ARTERIAL (test 22.1 MMOL/L 20.0-26.0 N code = QGRXEI1G) POC BASE EXCESS (test code -2.6 MMOL/L -3.0-3.0 N = POCBEA) POC O2 SATURATION (test 100.0 % 92.0-98.5 H code = POCO2S) FIO2 (test code = FIO2A) 90 % 21-100 PaO2/FiO2 (test code = 486.44 mm/Hg VKO9COD6) SODIUM (test code = NA/ABG) 135 MMOL/L [...] 0.7-2.0 HH = LACTP) POC ARTERIAL BLOOD [id number] 12:33:00 Test Item Value Reference Range Interpretation Comments POC ARTERIAL BLOOD GAS PH 7.332 7.35-7.45 L (test code = POCPHA) POC ARTERIAL BLOOD GAS PCO2 44.3 mmHg 35.0-45.0 N (test code = ZBJHCQ4Q) POC ARTERIAL BLOOD GAS PO2 572.1 75.0-100.0 HH (test code = LBMUH3P) POC HCO3 ARTERIAL (test 23.4 MMOL/L 20.0-26.0 N code = PCUCUV5J) POC BASE EXCESS (test code -2.4 MMOL/L -3.0-3.0 N = POCBEA) POC O2 SATURATION (test 100.0 % 92.0-98.5 H code = POCO2S) FIO2 (test code = FIO2A) 80 % 21-100 PaO2/FiO2 (test code = 715.12 mm/Hg PEM1AXX6) SODIUM (test code = NA/ABG) 139 MMOL/L [...] 0.7-2.0 HH = LACTP) POC ARTERIAL BLOOD [id number] 12:07:00 Test Item Value Reference Range Interpretation Comments POC ARTERIAL BLOOD GAS PH 7.341 7.35-7.45 L (test code = POCPHA) POC ARTERIAL BLOOD GAS PCO2 37.8 mmHg 35.0-45.0 N (test code = OPZPFB7V) POC ARTERIAL BLOOD GAS PO2 561.7 75.0-100.0 HH (test code = MEQJG1V) POC HCO3 ARTERIAL (test 20.5 MMOL/L 20.0-26.0 N code = YBNAIO3I) POC BASE EXCESS (test code -4.8 MMOL/L -3.0-3.0 L = POCBEA) POC O2 SATURATION (test 100.0 % 92.0-98.5 H code = POCO2S) FIO2 (test code = FIO2A) 100 % 21-100 PaO2/FiO2 (test code = 561.70 mm/Hg XQQ2KDE0) SODIUM (test code = NA/ABG) 135 MMOL/L [...] mmol/L 0.7-2.0 HH = LACTP) BASIC METABOLIC [id number] 11:56:00 Test Item Value Reference Range Interpretation [...] CA) PLEASE CALL RESULTS TO PHONE #: [phone] [facility] ARTERIAL BLOOD [id number] 11:25:00 Test Item Value Reference Range Interpretation Comments POC ARTERIAL BLOOD GAS PH 7.260 7.35-7.45 LL (test code = POCPHA) POC ARTERIAL BLOOD GAS PCO2 54.3 mmHg 35.0-45.0 HH (test code = BFAXFQ9L) POC ARTERIAL BLOOD GAS PO2 471.3 75.0-100.0 HH (test code = EFANI0J) POC HCO3 ARTERIAL (test 24.4 MMOL/L 20.0-26.0 N code = WZVDVF2W) POC BASE EXCESS (test code -3.2 MMOL/L -3.0-3.0 L = POCBEA) POC O2 SATURATION (test 100.0 % 92.0-98.5 H code = POCO2S) FIO2 (test code = FIO2A) 90 % 21-100 PaO2/FiO2 (test code = 523.66 mm/Hg FBW6GLD7) SODIUM (test code = NA/ABG) 141 MMOL/L [...] mmol/L 0.7-2.0 HH = LACTP) CBC W/AUTO [id number] 09:49:00 Test Item Value Reference Range Interpretation [...] NRBC#) PLEASE CALL RESULTS TO PHONE #: [phone] [facility] ARTERIAL BLOOD [id number] 09:41:00 Test Item Value Reference Range Interpretation Comments POC ARTERIAL BLOOD GAS PH 7.362 7.35-7.45 N (test code = POCPHA) POC ARTERIAL BLOOD GAS PCO2 45.4 mmHg 35.0-45.0 H (test code = PNOZQC4B) POC ARTERIAL BLOOD GAS PO2 479.4 75.0-100.0 HH (test code = RBFSS4I) POC HCO3 ARTERIAL (test 25.8 MMOL/L 20.0-26.0 N code = PLLFMV7I) POC BASE EXCESS (test code 0.0 MMOL/L -3.0-3.0 N = POCBEA) POC O2 SATURATION (test 100.0 % 92.0-98.5 H code = POCO2S) FIO2 (test code = FIO2A) 100 % 21-100 N PaO2/FiO2 (test code = 479.40 mm/Hg NZA4DQX9) SODIUM (test code = NA/ABG) 140 MMOL/L [...] 0.7-2.0 N = LACTP) POC ARTERIAL BLOOD [id number] 07:59:00 Test Item Value Reference Range Interpretation Comments POC ARTERIAL BLOOD GAS PH 7.387 7.35-7.45 N (test code = POCPHA) POC ARTERIAL BLOOD GAS PCO2 42.8 mmHg 35.0-45.0 N (test code = IAZOGI7E) POC ARTERIAL BLOOD GAS PO2 76.2 75.0-100.0 N (test code = UDYTT9Z) POC HCO3 ARTERIAL (test 25.8 MMOL/L 20.0-26.0 N code = UREIAB1N) POC BASE EXCESS (test code 0.5 MMOL/L [...] mmol/L 0.7-2.0 L = LACTP) GLUCOSE BEDSIDE [id number] 19:10:00 Test Item Value Reference Range Interpretation Comments GLUCOSE BEDSIDE TESTING (test code 246 MG/DL 60-99 H = GLUBED) GLUCOSE BEDSIDE [id number] 16:13:00 Test Item Value Reference Range Interpretation Comments GLUCOSE BEDSIDE TESTING (test code 121 MG/DL 60-99 H = GLUBED) HIV 12 AB [id number] 13:25:00 Test Item Value Reference Range Interpretation Comments HIV 1 2 COMBO AG/AB SCREEN AB/AG NON REACTIVE NONREACTIVE (test code = [id number]) GLYCOSYLATED HEMOGLOBIN [id number] 12:53:00 Test Item Value Reference Range Interpretation Comments GLYCOSYLATED 6.1 % 4.8-5.9 H Any condition t hat HEMOGLOBIN (HA1C) shortens e rythocyte (test code = survival or dec reasesmean GLYHGB) erythrocyte age (e.g., recovery from a cute blood loss,hemolytic anemia) will falsely lo wer HGBA1c resultsregardle ss of the method used. HG BA1c results from etlma rahman HbSS, HbCC, and HbSc must be [...] (test code = MBG) PLT RESPONSE TO [id number] 11:57:00 Test Item Value Reference Range Interpretation Comments PLT RESPONSE TO 275 PRU 194-418 N P2Y12 Result s PLAVIX (test code = Interpre tation: Test PLAVRES) results are in P2Y12 Reaction Units (PRU). Pre-Drug Refere nce Range is 194-418. Pre -drug platelet functi on estimates the t otal possible platel et aggregation ind ependent of P2Y12 inhibi tor drugs. Values <194 cou ld be due to low HCT, low platelet count, or prese nce of IIb/IIIa inhibi tors. Post-Drug Resul ts: Lower PRU levels are associated with expected antiplatelet ef fect. Values may be b elow the stated referenc e range. Studies show th at patients with < 230 PRU had fewer adver se events. GLUCOSE BEDSIDE [id number] 11:45:00 Test Item Value Reference Range Interpretation Comments GLUCOSE BEDSIDE TESTING (test code 109 MG/DL 60-99 H = GLUBED) COMPREHENSIVE METABOLIC [id number] 10:55:00 Test Item Value Reference Range Interpretation [...] newinformation regarding the potential i nterference ofEltrombopag ( a bone marrow stimulan t used to treatthrombocyt onmenia and aplastic anemia ) with specific assays on the Vitros 5600 of which Total Protein is one of thoseassays per formed in our lab.Interfe rence testing perform ed at [facility] determined that Eltrombopag does interfere with Vitros Total Protein asfollowsEltrom bopag Interference fo r Vitros Product Total Protein:======= Eltrombopag Max Observed Av g. BiasConcentrati on Concentration Concentration== ==== 2.5 mg/dl 6.0 g/dl +0.41 +0.34 3.5 mg/dl 6.0 g /dl +0.50 +0.45 5 mg/dl 6 .0 g/dl +0.73 +0.65 2.5 mg/dl 8.0 g/dl +0.44 +0.4 1 3.5 mg/dl 8.0 g/dl +0.55 +0.52 5 mg/dl 8.0 g/dl +0.86 +0.77 ALBUMIN (test 4.0 G/DL 3.5-5.0 N code = ALB) CALCIUM (test 8.5 MG/DL 8.4-10.2 N code = CA) BILIRUBIN TOTAL 0.7 MG/DL 0.2-1.3 N Eltrombopag Interference (test code = for Vitros Prod uct TBil, BILT) BuBc: Assa y Eltrombopag [place] lyte/ Max Observed Avg. B ias Concentration C oncentration Concentration== ====TBil 7mg/dl TBil/ 1. 2mg/dl +0.23mg.dl +0.2 0mg/dlBuBc 3.5mg/dl Bu/0.8 mg/dl +0.25mg/dl +0.2 4mg/dlBuBc 7 mg/dl Bu/14.2mg /dl +0.38mg/dl +0.2 5mg/dlBuBc 5mg/dl Bc/0mg/d l +0.25mg/dl +0.15mg/dlBuBc 3.5mg/dl Bc/2.8mg/dl +0. 25mg/dl +0.23mg/dl SGOT/AST (test 23 UNITS/L 17-59 N code = AST) SGPT/ALT (test 20 UNITS/L 0-49 N code = ALT) ALKALINE 45 UNITS/L 38-126 N PHOSPHATASE (test code = ALKP) Specimen comments: if not done in the last 72 hoursPROTHROMBIN [id number] 10:53:00 Test Item Value Reference Range Interpretation Comments PROTHROMBIN TIME 12.2 SECONDS 9.5-12.7 PATIENT (test code = PTP) INTERNATIONAL NORMAL 1.1 0.86-1.14 N The INR is to be RATIO (test code = used only for INR) monitoring oral anticoagulantth erap y. INDICATION I NR VALUE ---- ---- ---- -------1. Prophylaxis, de ep venous thrombos is, including high risk surgery. 2.0 - 3.0 2. Prophylaxis, deep venous thrombosis, hip surgery, treatm ent for deep venous thrombosis or pulmonary prevention of systemic emboli sm in patients wit h valvular heart disease, atrial fibrillation, tissue heart va lve, or acute myocar dial infarction. 2.0 - 3.0 3. Project Lead al prosthesis hear t valves, recurre nt systemic emboli sm. 3.0 - 4.5 PTT [id number] 10:53:00 Test Item Value Reference Range Interpretation Comments PTT ACTIVATED (test code = APTT) 39.4 SECONDS 25.1-36.5 H CBC W/AUTO [id number] 10:44:00 Test Item Value Reference Range Interpretation [...] in the last 72 hours- XR CHEST [id number] 10:33:00[facility] VICK : 1940 Sex: M Patient Name: COLE JEFFREY Unit No: [id number] EXAMS: CPT CODE: [id number] XR CHEST 1V [id number] EXAM: CHEST ONE VIEW INDICATION: Cardiac/Heart Surgery LOCATION: B2 COMPARISON: None available TECHNIQUE: AP view of the chest FINDINGS: The heart size is enlarged. There are mild congestive changes bilaterally. No pneumothorax or pleural effusion is identified. The osseous structures are normal. IMPRESS ION: Cardiomegaly with mild congestive changes bilaterally. at 1033 Reported and signed by: Eleanor Pablo MD CC: Noni Marquez MD; Santana Rust; Annel HOLLIS Technologist: KAREL Reid, RT(R) Transcrpt Date/Tm/Trnsp: 03/30/2021 (1033) [id number] Orig Print D/T: S: 03/30/2021 (1036) [facility] NAME: COLE JEFFREY [address] PHYS: [place] [address] : 1940 AGE: 81 SEX: M LOC: Z.364 A PHONE #: [phone] EXAM DATE: 03/30/2021 STATUS: ADM IN FAX #: RADIOLOGY NO: PAGE 1 Signed ReportGLUCOSE BEDSIDE [id number] 07:45:00 Test Item Value Reference Range Interpretation Comments GLUCOSE BEDSIDE TESTING (test code 115 MG/DL 60-99 H = GLUBED) GLUCOSE BEDSIDE [id number] 20:51:00 Test Item Value Reference Range Interpretation Comments GLUCOSE BEDSIDE TESTING (test code 148 MG/DL 60-99 H = GLUBED) GLUCOSE BEDSIDE [id number] 15:50:00 Test Item Value Reference Range Interpretation Comments GLUCOSE BEDSIDE TESTING (test code = 72 MG/DL 60-99 N GLUBED) GLUCOSE BEDSIDE [id number] 11:03:00 Test Item Value Reference Range Interpretation Comments GLUCOSE BEDSIDE TESTING (test code 156 MG/DL 60-99 H = GLUBED) GLUCOSE BEDSIDE [id number] 07:51:00 Test Item Value Reference Range Interpretation Comments GLUCOSE BEDSIDE TESTING (test code 111 MG/DL 60-99 H = GLUBED) [id number] 05:33:00 Test Item Value Reference Range Interpretation Comments PHOSPHOROUS (test code = PHOS) 3.1 MG/DL 2.5-4.5 N [id number] 05:33:00 Test Item Value Reference Range Interpretation Comments MAGNESIUM (test code = MAG) 2.1 MG/DL 1.6-2.3 N BASIC METABOLIC [id number] 05:12:00 Test Item Value Reference Range Interpretation [...] 8.4 MG/DL 8.4-10.2 N CA) CBC W/AUTO [id number] 04:54:00 Test Item Value Reference Range Interpretation [...] 0.00 K/mm3 0.0-0.1 N NRBC#) GLUCOSE BEDSIDE [id number] 21:32:00 Test Item Value Reference Range Interpretation Comments GLUCOSE BEDSIDE TESTING (test code 121 MG/DL 60-99 H = GLUBED) LIPID PROFILE (CORONARY RISK)2021-03-28 07:07:00 Test Item [...] LIPOPROTEIN LDL (test 76 MG/DL 0-99 N OPTIM AL.........<100 code = LDL) mg/dLNEAR OPTIMAL/ABOVE OPTIMAL........ .100-12 9 mg/dL BORDERL INE HIGH.........13 0-159 mg/dL HIGH.........16 0-189 mg/dL VERY HIGH.........>/ = 190 mg/dL [id number] 07:07:00 Test Item Value Reference Range Interpretation Comments MAGNESIUM (test code = MAG) 2.2 MG/DL 1.6-2.3 N BASIC METABOLIC [id number] 07:07:00 Test Item Value Reference Range Interpretation [...] code = 9.1 MG/DL 8.4-10.2 N CA) PROTHROMBIN [id number] 06:48:00 Test Item Value Reference Range Interpretation Comments PROTHROMBIN TIME 11.4 SECONDS 9.5-12.7 N PATIENT (test code = PTP) INTERNATIONAL NORMAL 1.0 0.86-1.14 N The INR is to be RATIO (test code = used only for INR) monitoring oral anticoagulantth erap y. INDICATION I NR VALUE ---- ---- ---- -------1. Prophylaxis, de ep venous thrombos is, including high risk surgery. 2.0 - 3.0 2. Prophylaxis, deep venous thrombosis, hip surgery, treatm ent for deep venous thrombosis or pulmonary prevention of systemic emboli sm in patients wit h valvular heart disease, atrial fibrillation, tissue heart va lve, or acute myocar dial infarction. 2. 0 - 3.0 3. Project Lead al prosthesis hear t valves, recurre nt systemic emboli sm. 3.0 - 4.5 PTT [id number] 06:48:00 Test Item Value Reference Range Interpretation Comments PTT ACTIVATED (test code = APTT) 34.6 SECONDS 25.1-36.5 N CBC W/AUTO [id number] 06:38:00 Test Item Value Reference Range Interpretation [...] 0.0-0.1 N NRBC#) COVID 19 Asymptomatic IH [id number] 05:30:00 Test Item Value Reference Range Interpretation Comments COVID 19 NEGATIVE Negative "Negative resul ts from Asymptomatic IH AG patients with symptom (test code = onset beyondfiv e days, COVNONPUIAG) should be treat ed as presumptive, andconfirmation with a molecular assay [...] sample." Comments to Phleb: PLS RUN TEST [place]. THANKSPOC-Glucose [id number] 09:30:00 Test Item Value Reference Range Interpretation Comments POC-Glucose Meter (test 121 mg/dL 70-110 H : TE STED AT [facility] code = 1538) [address] [place], [address]: Press Offbearer/Techni nan ID = [id number] for CHARLIE MEDINA Lab Interpretation (test Abnormal code = 22147-3) [facility] [id number] 09:30:00 Test Item Value Reference Range Interpretation Comments POC-GLUCOSE METER 121 mg/dL 70-110 H : TESTED A T [facility] 6720 (BEAKER) (test code = TEJAL Avila [facility], 1538) 37660: Press Offbearer/Techni nan ID = [id number] for ED LESLI WEISS SARS-CoV2/RT-PCR (Asymptomatic ONLY)2021-01-17 00:14:00 Test Item Value Reference Range Interpretation Comments SARS-COV2/RT-PCR (test Negative Negative code = 00102-7) ALANNA (test code = ALANNA) Negative result [...] SARS-CoV-2 assay. Fact Sheet for Healthcare Providers:https://www.saurabh alvarado/sarahi/RT SARS-CoV-2 HCP Fact Sheet 51-254965.pdf Fact Sheet for Healthcare Patients:https://www.armond nayakcote/sarahi/RT SARS-CoV-2 Patient Fact Sheet EN 51-673424E1.pdf Lab Interpretation Normal (test code = 71901-3) [facility])2021-01-17 00:14:00 Test Item Value Reference Range Interpretation Comments SARS-COV2/RT-PCR (test code = Negative Negative 7409473) Negative result for this test determines that [...] under Section 564(g) of the Act.Testing was performed using Pronota SARS-CoV-2 assay.Fact Sheet for Healthcare Providers:https://www.50 Cubes.cote/sarahi/RT SARS-CoV-2 HCP Fact Sheet 51- 854747.pdfFact Sheet for Healthcare Patients:https://www.YouRenew/sarahi/RT SARS-CoV-2 Patient Fact Sheet EN 51-463854W4.pdfBASI METABOLIC [id number] 12:41:00 Test Item Value Reference Range Interpretation [...] S NOT APPLICABLE FOR DIALYSIS PATIEN TS. Press Offbearer ID - KEDAR [id number] 12:13:00 Test Item Value Reference Range Interpretation Comments HEMOGLOBIN (BEAKER) (test code = 11.8 GM/DL 13.7-17.5 L 410) Press Offbearer ID - CherylTisjengilbert [id number] 14:26:00 Test Item Value Reference Range Interpretation Comments Case Report (test code Surgical Pathology = 104) Report Case: [id number] Authorizing Provider: Fransisco Martinez DPM Collected: 12/08/2020 05:13 PM Ordering Location: [facility] Received: 12/09/2020 08:04 AM SERVICES Pathologist: Ksenia Gallego MD Specimen: Toe, Left, Left distal 2nd digit toe DIAGNOSIS (test code = m8yabNVpGBOsp0tgAVLgoLK 3220) uZzEwMzNcZnRuYmpcdWMxIH tccnRmMVxlcGljOTIwMlxhb iYjULIcsLLyK1CctvmaRSmu TM1dMN3pbCyijXNltXFiQZA yJdUkb0xku276qUJpk9nuCC CNyodecVe9rZnvN42dr3I4Q xpfY61jvPQhDSkqaMDbtiej cwLcEQZOS5DeXZqZEnDiMFW EY7IOSKHrWrAhXCiMICCzCW ZGBLNDRDFVA285KBMslkCnS XAFZIMVBcAHMsEsP5AVAhGR AERZK94nAMpBY4MICFToqkR fCBECUtXOZt6EAvGVISVIXA CHARREJjVKC6qPUOTOHKTFT kFOVUxBVElPTiBUSVNTVUUg GFDERSYMI51IEU4LQNhkGPK oFR9tG3bBKxveW70VBQFRJQ TPJTKfXV2RRPBOSfYxQIEWF 1cOCbSZKsIxRQ9MLC5TOzuW QkxFXHBhciAgLSBORUdBVEl MVJEBA1DtCTJQFTpYER2LQV seONElNSxeLBS2f3sffJRpP HNzdGUxODAwMFxhbnNpXGRl JxhltcfeQHFvGXS3ehTmFCE lDKufPYKkYFgcCw2daRBakF tfDkJwTQXls0vnacVFxhkxy Rw5l7flBOPfVvM4eROuTDmi W4vnleXfvDIvNEEbFSd9rJ8 8EIWnsK9koITdEOlmbrPsDw Z8CPdvPGSfXkE2BCMurIWsA YFkS6flMNWbRIwtRTAbHIic qGOxSYX8tZcvp9O2kBRzqAD kcAyaZsWpBqKfWuYQl5WeBU i4hTytH6FrQTJnYvZ8pQZsX ZFeBFbdECLsRKCnisT0bF00 BGkbecK5kZKpg1Uth08to29 6xU6ofMPoRPX2UPKyHKBvyQ BeXISkYON4RABwoIMrZ4uwH CYdOH6imnmlMCdkNWkxMMOh yEI2FDLvnHFdS7XpGLAfBCq yNDUwxvc2LmEnYh6udXEdbC wpGLzsg1xcg9uslGNdMjh2V EWfBeHjZcjkTGblt9Zgm0ew YMLryq6hUVB8bTUqcDrhc5P 5bAUaPUJdcMMcSBOoLG4cbE GlWDCijZ3mwexwMRZzSiTba odpUUGtqUdqvwXpBx8fwMif RGZ2VHjlA3sksG2dRyJ9AOo rF7nwcN0gWMq4XPjwZPWucH E3ekG6RVHisLEbA6QzmP0gP QGjBO8pmeo7i7zkXGI3PBpq VLRgZaS3jxX4ASNydUPxGWE ajAlcBUjku880FLM9HcHkZQ Agk1ZpD0DudOamD96znQqvI 15vILYhuYhqvY3mpLzpsN7j ToYlZbCiFQgpjMlyZQ1pLAD mO8naxGGlLWGpRIEvU0nzMi NdiN9jnZcnNEslmbVoOUVpE uu2ORHhoXMuJOFuLsb1ZIGw EBBnN01scucaTRQ2tD6ji8u hw4TxRAmlLER7XVLuy41eOT usjmO9ADwvZj6iHCVqCNQzT LjdZDE8fI== COMMENT (test code = j2ftpGZfAFTodRB7FeLqKWU 3359) nb5yma8YwxTLkcKZpSCdwmJ JtmgSlpf81dUE2jZ57KY9fZ UFcSuV8NFLwxbE5Afh0QJLs SCUovSKiH931d3ocz6zysyD guZA2sNatXWEzLPYeNJjjBC NgWpTwM44tr5xzpZYojSZ7l OUwAPVkqs3quJRbk5A5XX0u zYVbdMDyqr0iKZC0lXKyv4R 1AO0nxZPsfWShyyVuphBfm0 JhYZMlmL5tvGUsyGItnmUxQ A16YSwgXHVxeWYzy5UhgUbi blxwYXJ9 CPT Code(s) (test code t7henCClKORwsPS1JbZfXJV = 3357) pf2qaf9JwrHXyvQXxAEicqT NqziBrcq96oOK8aP30KC4nS SGmDzS7OUEwuaW2Pdg4BTMg PEHveEYmW194s3gvy8scxwK etFF3gHqkYNBkZQFpOUugLT SuFkNdPGmrXEW4MOs2DrUiE HBhcn0= CLINICAL HISTORY (test y1lwpURpATCcbBC3YrJhAIN code = 3356) iu4ilq5PqmZUlaEJuTSvxoR BjoqGtlq18mAU0bY42YX9bQ GNkJfM5LYJqzjQ9Lkh1QPOa PWVxfMAnB352z9yhg0djksL vnML8pXwlBTBeWLUoYIoqCN VkGjNxFRoyNGDmg9IfnGDah SLqk084CNIvie1= SPECIMEN SOURCE (test d4ohsTYhSYNjkMT6WsIvSLS code = 3377) ip7ukd0ZibTZnqJWrBLukkC OdsfYkki47iVD6sQ41PT1oJ DXiQoZ2BYEnocV5Pfk6TZCd PIOboKGoY580o7ekl7aadqN vqVJ0yEuvTXBzCVZgHUgjBC LzOkBeJI3mCOWgVGG8QOXok n0= GROSS DESCRIPTION s9sstVFgGXNgeWDvLuPdFWY (test code = 3366) xPQFjr0iuADFlxCNnBmChRt NcZnRuYmpcdWMxXGRlZmYwe 0hvl008qWKyz9aoPINoFyE7 kLOpJLQqdVTbL926n4bcm2g cqxYixBL6WUPsZLF8LOiokc UuyaS7LOvjlXMiZwN1ORaez eGjACzudbVldkYuCmk1TIEp G815DZR0eFdzw2gaKUW6TOV uZQFhOrNfXv3urQMsH287SC OvAOZKWHMqmJc9BINzqbOsn uVirCGOg479X210s1kcQWRa iuEkaJpVjhzrb1foU000YNG hcGVydzEyMjQwXHBhcGVyaD N4ETFaXI7cacjtDaGyIW3jy qaoVbWtCQ5nupo2DlOxOK5c cmdiNzIwXGhlYWRlcnkwXGZ cu5AzfyvrHX7dQ0Omv0W3tU 9maXRcZGVmdGFiNzIwXGZvc p6gnUCqVXloa1DgETV5uxC1 kYVepWOpDHOuYA85Djoaj3W mArezNQJ0BZSnjkOlt3Xgr0 kbBjMzrdHtJ5hnA5DtKUZbH KMqVEUrYtLbqzNlb9Xey5Hl sZLqmRl7e1wkLDJlVOVmtCw qg4ewYFT6ZVGjG9O8gDHak9 pmVTiiVJFjcRK4fozvKDcaO MDnanZ2jfkbFLlwYDYbjSP9 zersCSgqJDGbMyE8eurdUUi iISKhQBR1IIstv154ZJR2DF xzYmtwYWdlXHBnbmNvbnRcc GduZGVjXHBsYWluXHBsYWlu XGYwXGZzMjRccWxccGxhaW5 fYiYlYbWyCIzkNS9yPNVnU2 ogtQXdOOPeZVDtQ2poKxSjr E5oaXanQTrxtyWqDVIvMSBp Z6ItvqOtTTKaZACeBWqoNuW wBPLld5v8xXW2eNSbqVR2tM LhzKuiCuOiAQ7obCNdSW0jV GybNRhpwtLhw3PsMT09uMZf ciBhbmQgInRvZSwgbGVmdCI zpRNdSWExiELpouDuF7LnKF MmDITwqIZ0SDidaT0mLS1eQ EJ1lczpAdMrNDOoRQsfOSpe ybx3cAOmvoIuMvZpwPBvsdY prGAmWQQzpc0hFDArJCJpHA rjZYZkWVE6nLKpcKCzBZObe cV5HLxnfDfvvuF2nmx7gOPz ICBUaGUgcGxhbnRhciBzdXJ tNNQpLZPxv6UvYPmcRACaDE T2RRCdrXBrVhQaT63zkKDou 3JyaGFnaWMgdWxjZXIgdGhh hNMyaZKer0HymKJfZDSvIQH rv7zlEX1htuuliiMeVrp4UJ lkEIRhHUZxonRqAgKnS45yG lFanPG6hFSuSJxbZMT5fUV3 aXX6WAJpJE3bOdOzNUrsXAO rpFDwheueRbOae4noQPqeAG qnRDjqb9dfeWWyLJv5aRZln 1KaSKBxrGibQDGrWLDrB3Ta aN9zHDPyBVO3tiClgbd3tB4 pLVMoceQkcKTndGGtuY22MD Wns71cZ9Geh9UdOAKsOPG7e cVkWUG9zEM4WTPuPTZFUKDi DGRbtnLrzAk7QEAnVCC0iU7 ipxSqdmDbm7JldTo3kRMmCy pfGPSvpEDnNDTgC9Cbt85kK 29kZTpccGFyIEExOiBVbGNl bzM6qaYdzP1hLFC7QMIcyM5 epUMhE1etGPIiAPTkOU3csT S8mLFvEZQyH5Tdy52zRWUrh uDaKRqlVTS6eNX4oRE5PPLz QV7hPNCkepBvGUPzLBNej1z eo0plnkddXONtGWgddHZyA2 Y5eY8rNSIntpAYXnpxPRalG WBay2n0hSG5nrBzvjr2gJ1e NQCjreEtLQYpzAzqy3iwVmT xXNVrnYAxNgznURJqy85rbZ ZxMOVzvrWAtMRhr3BjAKqwV QAeZDARCBNcHCANXAhEK7YH KWNtXHBhcn0= MICROSCOPIC n5bojBUzMJCrrUW2IqPaOEL DESCRIPTION (test code lg8pdm6UpmNUrdKSxHNropJ = 3371) TjocByaq58xWA1jX52XW5qQ RJaHbZ7IYYjfkW0Qda8PRXm BHLxbPVcF117o5hpq5eisiC vyZT0pSasUNKiHIAqGUvkGK NvCrRdAFXQAv4AWDGRYRBjx n0= [facility] [id number] 14:26:00Surgical Pathology Report Case: [id number] Authorizing Provider: Fransisco Martinez DPM Collected: 12/08/2020 05:13 PM Ordering Location: [facility] Received: 12/09/2020 08:04 AM SERVICES Pathologist: Ksenia Gallego MD Specimen: Toe, Left, Left distal 2nd digit toe FOOT, LEFT, DISTAL 2ND DIGIT, AMPUTATION: - ULCER AND GRANULATION TISSUE - INTER-TRABECULAR FIBROSIS AND GRANULATION TISSUE (SEE COMMENT) - SKIN, SOFT TISSUE AND BONE MARGINS ARE UNREMARKABLE - NEGATIVE FOR MALIGNANCY Signing Pathologist Direct Phone Line: [phone] signed by Ksenia Gallego MD on 12/26/2020 at 2:25 PMConsistent with chronic osteomyelitis. Acute osteomyelitis is not definitely present in this [id number]; 21117Ukpwp of left footToe, leftA. Received fresh labeled with the patient's name, medical record number and "toe, left" is a disarticulated distal toe measuring 1 cm inlength and 2 cm in diameter. There is an attached, basurto-yellow unguis. The plantar surface displays a 1 x 1 x 0.1 cm hemorrhagic ulcer that approaches the skin margin (blue), and is 1.5 cm from the disarticulated end. The remaining skin is basurto-white, hyperkeratotic and scaly. The underlying bone is yellow, homogenous and trabeculated. Manager Compliance sections are submitted.Section code:A1: Ulcer to cl osest skin margin, perpendicular sections, and disarticulated end, en face, following decalcificationA2: Ulcer with underlying bone, following decalcificationChelsea INDIO Mane PA (ASCP)cmPERFORMEDSurgically obtained culture + gram [id number] 11:53:00 Test Item Value Reference Range Interpretation Comments Result (test code = From Broth Only A 6463-4) Coagulase negative Staphylococcus Gram Stain Result (test No organisms seen code = 1123) ALANNA (test code = ALANNA) Lab Interpretation Abnormal (test code = 56720-2) [facility] + GRAM [id number] 11:53:00 Test Item Value Reference Range Interpretation Comments CULTURE A From Broth Only (BEAKER) (test Coagulase neg ative code = 1095) Staphylococcus GRAM STAIN <1+ WBCs RESULT (BEAKER) (test code = 1123) GRAM STAIN No organisms seen RESULT (BEAKER) (test code = 457774) Anaerobic [id number] 08:04:00 Test Item Value Reference Range Interpretation Comments Result (test code = No anaerobes isolated 6463-4) [facility] [id number] 08:04:00 Test Item Value Reference Range Interpretation Comments CULTURE (BEAKER) (test No anaerobes isolated code = 1095) Blood Culture #[id number] 16:00:00 Test Item Value Reference Range Interpretation Comments Result (test code = No growth in 5 days 6463-4) [facility] CenterBL[facility] [id number] 16:00:00 Test Item Value Reference Range Interpretation Comments CULTURE (BEAKER) (test No growth in 5 days code = 1095) BLOOD [id number] 16:00:00 Test Item Value Reference Range Interpretation Comments CULTURE (BEAKER) (test No growth in 5 days code = 1095) POCT-GLUCOSE [id number] 07:40:00 Test Item Value Reference Range Interpretation Comments POC-GLUCOSE METER 130 mg/dL 70-110 H : [facility] ([facility] (test code = TEJAL Avila [facility], 1538) 00847: Press Offbearer/Techni nan ID = [id number] for PATRICIA DUGAN BASIC METABOLIC [id number] 05:04:00 Test Item Value Reference Range Interpretation [...] S NOT APPLICABLE FOR DIALYSIS PATIEN TS. Press Offbearer ID - PIAYA LRAD, FOOT, 2 VIEWS, [id number] 04:32:00Reason for exam:->post op distal 2nd digit amputaiton for osteomeylitis distal phalanx, left footShould this be performed at the bedside?->No [facility] : 1940 Sex: MFINAL REPORT CLINICAL INDICATION: Postop distal second digit amputation Comparison: 12/05/2020 FINDINGS: 2 views of the left foot are submitted. There is an expected postoperative appearance of interval amputation of the distal phalanx of the second toe. There is no unexpected radiopaque foreign body. Vascular calcifications are present in the lower leg, ankle and foot. Signed: Alexus Perezepfrancois Verified Date/Time: 12/09/2020 04:32:54 POCT-GLUCOSE METER 2020-12-08 21:22:00 Test Item Value Reference Range Interpretation Comments POC-GLUCOSE METER 245 mg/dL 70-110 H : TESTED A T [facility] 6720 (KeynoirAKER) (test code = [facility], 153) 53101: Press Offbearer/Techni nan ID = [id number] for Rick Moreno POCT-GLUCOSE [id number] 18:05:00 Test Item Value Reference Range Interpretation Comments POC-GLUCOSE METER 129 mg/dL 70-110 H : TESTED A T [facility] 6720 (BEAKER) (test code = [facility], 1538) 32956: Press Offbearer/Techni nan ID = [id number] for Trey whiting Tash POCT-GLUCOSE [id number] 13:50:00 Test Item Value Reference Range Interpretation Comments POC-GLUCOSE METER 140 mg/dL 70-110 H : TESTED A T [facility] 6720 (BEAKER) (test code = [facility], 153) 49990: Press Offbearer/Techni nan ID = [id number] for Lyly Cedeno POCT-GLUCOSE [id number] 09:44:00 Test Item Value Reference Range Interpretation Comments POC-GLUCOSE METER 140 mg/dL 70-110 H : TESTED Antonio T [facility] 6720 (BEAKER) (test code = [place], 1538) 75679: Press Offbearer/Techni nan ID = [id number] for Lyly Cedeno WOUND CULTURE + GRAM [id number] 08:55:00 Test Item Value Reference Range Interpretation Comments CULTURE (BEAKER) PSEUDOMONAS A 3+ Pseudomo jia (test code [...] gram negative (BEAKER) (test code rods = 395819) GRAM STAIN RESULT 1+ budding yeast (BEAKER) (test code with pseudohyphae = 333745) GRAM STAIN RESULT 2+ gram positive (BEAKER) (test code cocci in pairs and = 629174) clusters 1+ Skin floraBASIC METABOLIC [id number] 07:05:00 Test Item Value Reference Range Interpretation [...] S NOT APPLICABLE FOR DIALYSIS PATIEN TS. Press Offbearer ID - AAHAMIDCBC with platelet count + automated [id number] 06:49:00 Test Item Value Reference Range Interpretation Comments WBC (test code = 6690-2) 7.5 See_Comment [A utomated message] The system [employer] generated this result transmitted ref erence range: 3.5 - 10 .5 K/L. The refe rence range was not u sed to interpret this result as normal/abnor mal. RBC (test code = 789-8) 4.40 See_Comment L [Au tomated message] The system [employer] generated this result transmitted ref erence range: 4.63 - 6 .08 M/L. The refe rence range was not u sed to interpret this result as normal/abnor mal. MCHC (test code = 786-4) 32.6 See_Comment L [A utomated message] The system [employer] generated this result transmitted ref erence range: [...] See_Comment [Aut omated message] 777-3) The system [employer] generated this result transmitted ref erence range: 150 - 45 0 K/CU MM. The referen ce range was not u sed to interpret this result as normal/abnor mal. MPV (test code = 10.2 fL 9.4-12.4 21545-9) nRBC (test code = 413) 0 See_Comment [Aut omated message] The system [employer] generated this result transmitted ref erence range: [...] See_Comment [Aut omated message] 670) The system [employer] generated this result transmitted ref erence range: 1.78 - 5 .38 K/L. The refe rence range was not u sed to interpret this result as normal/abnor mal. # Lymphs (test code = 1.98 See_Comment [Auto mated message] 414) The system [employer] generated this result transmitted ref erence range: 1.32 - 3 .57 K/L. The refe rence range was not u sed to interpret this result as normal/abnor mal. # Monos (test code = 1.14 See_Comment H [Autom ated message] 415) The system [employer] generated this result transmitted ref erence range: 0.30 - 0 .82 K/L. The refe rence range was not u sed to interpret this result as normal/abnor mal. # Eos (test code = 416) 0.38 See_Comment [Au tomated message] The system [employer] generated this result transmitted ref erence range: 0.04 - 0 .54 K/L. The refe rence range was not u sed to interpret this result as normal/abnor mal. # Baso (test code = 417) 0.05 See_Comment [A utomated message] The system [employer] generated this result transmitted ref erence range: 0.01 - 0 .08 K/L. The refe rence range was not u sed to interpret this result as normal/abnor mal. Immature 1 % 0-1 Granulocytes-Relative (test code = 2801) Lab Interpretation (test Abnormal code = 98900-5) [facility] W/PLT COUNT & AUTO [id number] 06:49:00 Test Item Value Reference Range Interpretation [...] PERCENT (BEAKER) (test code = 2801) POCT-GLUCOSE [id number] 21:27:00 Test Item Value Reference Range Interpretation Comments POC-GLUCOSE METER 171 mg/dL 70-110 H : TESTED A T [facility] 6720 (BEAKER) (test code = [facility], 153) 47739: Press Offbearer/Techni nan ID = [id number] for JARRED BOYD POCT-GLUCOSE [id number] 17:54:00 Test Item Value Reference Range Interpretation Comments POC-GLUCOSE METER 101 mg/dL 70-110 : TESTED A T [facility] 6720 (BEAKER) (test code = [facility], 153) 37247: Press Offbearer/Techni nan ID = [id number] for Ba iley, Sarah POCT-GLUCOSE [id number] 12:56:00 Test Item Value Reference Range Interpretation Comments POC-GLUCOSE METER 144 mg/dL 70-110 H : TESTED A T [facility] 6720 (BEAKER) (test code = [facility], 1538) 63864: Press Offbearer/Techni nan ID = [id number] for Ba iley, Sarah POCT-GLUCOSE [id number] 08:05:00 Test Item Value Reference Range Interpretation Comments POC-GLUCOSE METER 131 mg/dL 70-110 H : TESTED A T [facility] 6720 (BEAKER) (test code = [facility], 153) 10783: Press Offbearer/Techni nan ID = [id number] for Ba iley, Sarah BASIC METABOLIC [id number] 04:40:00 Test Item Value Reference Range Interpretation [...] S NOT APPLICABLE FOR DIALYSIS PATIEN TS. Press Offbearer ID - LAWRENCE WPOCT-GLUCOSE [id number] 21:04:00 Test Item Value Reference Range Interpretation Comments POC-GLUCOSE METER 124 mg/dL 70-110 H : TESTED A T [facility] 6720 (BEAKER) (test code = [facility], 1538) 07222: Press Offbearer/Techni nan ID = [id number] for JARRED BOYD POCT-GLUCOSE [id number] 17:34:00 Test Item Value Reference Range Interpretation Comments POC-GLUCOSE METER 123 mg/dL 70-110 H : TESTED A T [facility] 6720 (BEAKER) (test code = [facility], 1538) 39866: Press Offbearer/Techni nan ID = [id number] for Lexie MARIO COURTNEYAntonio Vancomycin level, [id number] 15:39:00 Test Item Value Reference Range Interpretation Comments Vancomycin Tr (test code = 10.2 ug/mL 10.0-20.0 4092-3) ALANNA (test code = ALANNA) Press Offbearer ID - ADMIN Lab Interpretation (test Normal code = 45989-7) [facility] CenterVAN[facility] LEV[facility], [id number] 15:39:00 Test Item Value Reference Range Interpretation Comments VANCOMYCIN TROUGH (BEAKER) (test 10.2 ug/mL 10.0-20.0 code = 522) Press Offbearer ID - ADMINPOCT-GLUCOSE [id number] 11:47:00 Test Item Value Reference Range Interpretation Comments POC-GLUCOSE METER 170 mg/dL 70-110 H : TESTED A T [facility] 6720 (BEAKER) (test code = ETJAL Avila [facility], 1538) 71783: Press Offbearer/Techni nan ID = [id number] for Lexie MARIO POCT-GLUCOSE [id number] 08:03:00 Test Item Value Reference Range Interpretation Comments POC-GLUCOSE METER 134 mg/dL 70-110 H : TESTED A T [facility] 6720 (BEAKER) (test code = TEJAL Avila [facility], 1538) 93885: Press Offbearer/Techni nan ID = [id number] for Lexie MARIO Hemoglobin [id number] 07:46:00 Test Item Value Reference Range Interpretation Comments Hemoglobin A1C (test code = 4548-4) 6.5 % 4.3-6.1 H Lab Interpretation (test code = Abnormal 43384-3) [facility] CenterHEMO[facility]IN [id number] 07:46:00 Test Item Value Reference Range Interpretation Comments HEMOGLOBIN A1C (BEAKER) (test code = 6.5 % 4.3-6.1 H 368) [id number] 07:35:00 Test Item Value Reference Range Interpretation Comments Magnesium (test code = 2.1 mg/dL 1.6-2.6 59294-0) ALANNA (test code = ALANNA) Press Offbearer ID - BS Lab Interpretation (test Normal code = 66513-0) [facility] CenterBAS[facility] [id number] 07:35:00 Test Item Value Reference Range Interpretation [...] S NOT APPLICABLE FOR DIALYSIS PATIEN TS. Press Offbearer ID - [id number] 07:35:00 Test Item Value Reference Range Interpretation Comments MAGNESIUM (BEAKER) (test code = 2.1 mg/dL 1.6-2.6 627) Press Offbearer ID - BSCBC W/PLT COUNT & AUTO [id number] 05:58:00 Test Item Value Reference Range Interpretation [...] PERCENT (BEAKER) (test code = 2801) POCT-GLUCOSE [id number] 20:28:00 Test Item Value Reference Range Interpretation Comments POC-GLUCOSE METER 72 mg/dL 70-110 : TESTED A T [facility] 6720 (BEAKER) (test code = [facility] [place], 1538) 91212: Press Offbearer/Techni nan ID = [id number] for Corz ine (contract), Mar y Lactic acid, venous [id number] 17:37:00 Test Item Value Reference Range Interpretation Comments Lactate, Venous (test code = 2.17 mmol/L 0.50-2.20 2871) ALANNA (test code = ALANNA) Press Offbearer ID - BS Lab Interpretation (test Normal code = 66653-3) [facility], [id number] 17:37:00 Test Item Value Reference Range Interpretation Comments LACTATE BLOOD VENOUS (2) (BEAKER) 2.17 mmol/L 0.50-2.20 (test code = 2872) Press Offbearer ID - BSRAD, FOOT, MIN 3 VIEWS, [id number] 14:49:00Reason for exam:- >[facility] : 1940 Sex: MFINAL REPORT RAD, FOOT, MIN 3 VIEWS, LEFT INDICATION: left 2nd toe wound COMPARISON: None TECHNIQUE: AP and lateral oblique radiographs of the foot FINDINGS/IMPRESSION:No acute fracture. No radiopaque foreign body. Signed: Angelina Greene Verified Date/Time: 12/05/2020 14:49:31 Reading Location: [facility] Radiology Reading Room Comprehensive metabolic panel 2020-12-05 [...] Albumin (test code = 4.0 g/dL 3.5-5.0 93621-2) Alkaline Phosphatase 59 U/L 40-150 (test code = 6768-6) Total Bilirubin (test 0.6 mg/dL 0.2-1.2 code = 1975-2) Sodium (test code = 136 meq/L 888-292 5383-2) Potassium (test code 4.1 meq/L 3.5-5.1 = 2823-3) Chloride (test code = 100 meq/L 98-107 2075-0) CO2 (test code = 25 meq/L 22-29 2027-9) BUN (test code = 16 mg/dL 7-21 3094-0) Creatinine (test code 1.09 mg/dL 0.57-1.25 = 2160-0) Glucose (test code = 129 mg/dL 70-105 H 2345-7) Calcium (test code = 9.1 mg/dL 8.4-10.2 19239-8) AST (test code = 16 U/L 5-34 1920-8) ALT (test code = 16 U/L 6-55 1742-6) EGFR (test code = 65 mL/min/1.73 [place] [address]-2) NOT ACCURATE CREATININE CLEARANCE IN PREDICTING GLOMERULAR FILTRATION RATE . ESTIMATED GFR I S NOT APPLICABLE FOR DIALYSIS PATIEN TS. ALANNA (test code = ALANNA) Press Offbearer ID - CHRISTINA Lab Interpretation Abnormal (test code = 99935-4) [facility] CenterCOMPRE[facility]ENS[facility] METABOLIC [id number] 14:45:00 Test Item Value Reference Range Interpretation [...] U/L 6-55 (test code = 347) EGFR (BEAKER) (test 65 mL/min/1.73 ESTIMA DELORES GFR IS code = 1092) sq m NOT ACCURATE CREATININE CLEARANCE IN PREDICTING GLOMERULAR FILTRATION RATE . ESTIMATED GFR I S NOT APPLICABLE FOR DIALYSIS PATIEN TS. Press Offbearer ID - EMERSONLACTIC ACID, [id number] 14:41:00 Test Item Value Reference Range Interpretation Comments LACTATE BLOOD VENOUS 3.18 mmol/L 0.50-2.20 H Specime n slightly (2) (BEAKER) (test hemolyzed code = 2872) Press Offbearer ID - [id number] 14:34:00 Test Item Value Reference Range Interpretation Comments PTT (test code = 39.1 See_Comment H [Automated message] 72059-9) The system [employer] generated this result transmitted ref erence range: 22.5 - 3 6.0 seconds. The reference range was not used to int erpret this result as normal/abnormal . Lab Interpretation (test Abnormal code = 82305-2) [id number] 14:34:00 Test Item Value Reference Range Interpretation Comments PARTIAL THROMBOPLASTIN TIME 39.1 seconds 22.5-36.0 H (BEAKER) (test code = 760) Prothrombin time/[id number] 14:33:00 Test Item Value Reference Interpretation Comments [...] valves. Lab Interpretation Normal (test code = 70509-9) [facility] CenterPROTHROMBIN [facility]/[id number] 14:33:00 Test Item Value Reference Range Interpretation Comments PROTIME (BEAKER) 13.3 seconds 11.9-14.2 (test code = 759) INR (BEAKER) (test 1.03 See_Comment [Automat ed message] code = 370) The system [employer] generated this result transmitted ref erence range: <=5.90. The reference range was not used to int erpret this result as normal/abnormal . RECOMMENDED COUMADIN/WARFARIN INR THERAPY RANGESSTANDARD DOSE: 2.0 - 3.0 Includes: PROPHYLAXIS for venous thrombosis, systemic embolization; TREATMENT for venous thrombosis and/or pulmonary embolus.HIGH RISK: Target INR is 2.5-3.5 for patients with mechanical heart valves.CBC W/PLT COUNT & AUTO [id number] 14:27:00 Test Item Value Reference Range Interpretation [...] = 2801) RAD, FOOT, MIN 3 VIEWS, [id number] 14:06:00Reason for Exam:->Abscess or cellulitis of toe, left (L03.032,L02.612)FINAL REPORT EXAM: RAD, FOOT, MIN 3 VIEWS, LEFTDATE: 11/30/2019 4:31 PM INDICATION: Abscess or cellulitis of toe, left (L03.032,L02.612) COMPARISON: None FINDINGS:Three views of theleft foot show no displaced fracture or dislocation. A posterior calcaneal enthesophyte is noted. There is soft tissue swelling over the third toe with no underlying bony defect seen. There is extensive small vessel arterial calcification seen. IMPRESSION:No acute bony abnormality. Signed: Araceli Lee MDReport Verified Date/Time: 12/03/2019 14:06:27 Reading Location: [facility] Reading Room [address] [place] [address]
--- NOTE | 2023-04-03 14:31 | RAD REPORT ---
EXAM DESCRIPTION: CT - Head Brain Wo Cont - 04/03/2023 2:24 pm CLINICAL HISTORY: TRAUMA COMPARISON: Head Brain Wo Cont dated 06/18/2021; Head Brain Wo Cont dated 06/13/2021 TECHNIQUE: All CT scans are performed using dose optimization technique as appropriate and may inclu de automated exposure control or mA/KV adjustment according to patient size. FINDINGS: No intracranial hemorrhage, hydrocephalus or extra-axial fluid collection.No areas of brai n edema or evidence of midline shift. Cavum septum pellucidum. Cerebral atrophy . The paranasal sinuses and mastoids are clear. The calvarium is intact. IMPRESSION: No acute intracranial abnormality.
--- NOTE | 2023-04-03 14:53 | ER ---
Nurse's Notes [facility] Name: Cole Jeffrey Age: 83 yrs Sex: Male : 1940 Arrival Date: 04/03/2023 Time: 13:02 Bed IW1 Private MD: Diagnosis: Fall (on) (from) unspecified stairs and steps;abrasion;contusion;Unspecified injury of head, initial encounter Presentation: 04/03 13:34 Chief complaint: Patient states: Tripped on last step Tuesday night. Head hit railing, ll1 fell onto knees. Abrasions to both hands and back. Wounds weeping now. No fever. Coronavirus screen: Vaccine status: Patient reports receiving the 2nd dose of the covid vaccine. Client denies travel out of the [place] in the last 14 days. At this time, the client does not indicate any symptoms associated with coronavirus-19. Ebola Screen: Patient denies travel to an Ebola-affected area in the 21 days before illness onset. Initial Sepsis Screen: Does the patient meet any 2 criteria? No. Patient's initial sepsis screen is negative. Does the patient have a suspected source of infection? Yes: Skin breakdown/wound. Risk Assessment: Do you want to hurt yourself or someone else? Patient reports no desire to harm self or others. Onset of symptoms was April 01, 2023. 13:34 Method Of Arrival: Ambulatory [facility] 13:34 Acuity: JOSE F 4 ll1 Triage Assessment: 14:00 General: Appears in no apparent distress. Behavior is calm, cooperative. Pain: Denies hb pain. Neuro: Level of Consciousness is awake, alert, Oriented to person, place, time, situation. Cardiovascular: Patient's skin is warm and dry. Respiratory: Respiratory effort is even, unlabored, Respiratory pattern is regular, symmetrical. Historical: - Allergies: 13:37 Sulfa (Sulfonamide Antibiotics); ll1 - PMHx: 13:37 Hypertension; Hyperlipidemia; Cellulitis; Hypothyroidism; Diabetes - NIDDM; Atrial ll1 fibrillation; skin cancer; ADD/ADHD; - PSHx: 13:37 Coronary artery bypass graft; ll1 Historical Immunization: - Administered Vaccines 15:30 Tetanus Toxoid,Adsorbed IM 0.5 ml 1 Garde Manger: [employer]; Exp: TueNov 03 2024; Lot #: [id number]; Series: 1 of 1; Patient Consent: Obtained; Date/Time: ; Source Name: Cole Jeffrey; Source Relationship: Self; Address Information: [address] [place] [id number]; ; Education: Provided; VIS Presented Date: ; VIS Publication: Tetanus/Diphtheria (Td) Vaccine VIS 09/21/2016 (historic) - Immunization history:: Adult Immunizations up to date. - Social history:: Smoking status: Patient/guardian denies using tobacco, the patient reports quitting approximately 50 years ago. Screenin:30 [facility] ED Fall Risk Assessment (Adult) Score/Fall Risk Level 0 - 2 = Low Risk hb Oriented to surroundings, Maintained a safe environment. Abuse screen: Denies threats or abuse. Denies injuries from another. Nutritional screening: No deficits noted. Tuberculosis screening: No symptoms or risk factors identified. Vital Signs: 13:34 BP 158 / 82; Pulse 65; Resp 18; Temp 98.1; Pulse Ox 99% on R/A; Pain 0/10; ll1 13:34 Pain Scale: Adult ll1 ED Course: 13:04 Patient arrived in ED. ts1 13:11 Anny Kearns [facility]NP-C [facility] kb 13:11 John Paul Thapa MD is Attending Physician. kb 13:37 Triage completed. ll1 14:26 CT Head Brain wo Cont In Process Unspecified. EDMS 14:30 Patient has correct armband on for positive identification. Provided Education on: . hb 14:30 No provider procedures requiring assistance completed. Patient did not have IV access hb during this emergency room visit. Administered Medications: 15:30 Drug: Tetanus Toxoid,Adsorbed IM 0.5 ml IM once; Provide Vaccine Information Statement ll1 (VIS). {Garde Manger: [employer]; Exp: TueNov 03 2024; Lot #: [id number]; Series: 1 of 1; Patient Consent: Obtained; Date/Time: ; Source Name: Cole Jeffrey; Source Relationship: Self; Address Information: [address] [place] [address]; ; Education: Provided; VIS Presented Date: ; VIS Publication: Tetanus/Diphtheria (Td) Vaccine VIS 09/21/2016 (historic)} Route: IM; Site: right deltoid; Outcome: 14:52 Discharge ordered by . david 15:30 Discharged to home ambulatory, justyn 15:30 Condition: stable 15:30 Discharge instructions given to patient, Instructed on discharge instructions, follow up and referral plans. medication usage, Demonstrated understanding of instructions, follow-up care, medications, 15:31 Patient left the ED. ll1 Signatures: Dispatcher [employer] EDMS Anny Kearns, DINING ROOM COORDINATOR-C DINING ROOM COORDINATOR-Marilyn Vickers, RN RN Vira Almazan RN RN ll1 Aaliyah Muñiz PAS PAS ts1
--- NOTE | 2023-04-03 14:53 | EDPHYS ---
Physician Documentation [facility] Name: Cole Jeffrey Age: 83 yrs Sex: Male : 1940 Arrival Date: 04/03/2023 Time: 13:02 Bed IW1 Private MD: ED Physician John Paul Thapa HPI: 04/03 15:18 This 83 yrs old Male presents to ER via Ambulatory with complaints of Fall Injury. kb 13:41 Pt reports he missed a step and fell. c/o abrasions to right knee, left hand, right kb little finger, right forearm, right ear, back. States he spoke with Dr Cope and has an appt next week, but was told to come in for eval since he hit his head and is on blood thinners. . 15:18 Details of fall: The patient fell from a height, down approximately 1 stairs. Onset: kb The symptoms/episode began/occurred 4 day(s) ago. Associated injuries: The patient sustained injury to the head, pain, left hand and right hand and back and right ear and right knee, abrasion. Severity of symptoms: At their worst the symptoms were mild, in the emergency department the symptoms are unchanged. The patient has not experienced similar symptoms in the past. The patient has not recently seen a physician. Historical: - Allergies: 13:37 Sulfa (Sulfonamide Antibiotics); ll1 - PMHx: 13:37 Hypertension; Hyperlipidemia; Cellulitis; Hypothyroidism; Diabetes - NIDDM; Atrial ll1 fibrillation; skin cancer; ADD/ADHD; - PSHx: 13:37 Coronary artery bypass graft; ll1 - Immunization history:: Adult Immunizations up to date. - Social history:: Smoking status: Patient/guardian denies using tobacco, the patient reports quitting approximately 50 years ago. ROS: 15:16 Constitutional: Negative for fever, chills, and weight loss, kb 15:16 Skin: Positive for abrasion(s), of the right ear, back, right hand, left hand and right knee, 15:16 All other systems are negative, Exam: 15:16 Constitutional: This is a well developed, well nourished patient who is awake, alert, kb and in no acute distress. Head/Face: Normocephalic, atraumatic. Eyes: Pupils equal round and reactive to light, extra-ocular motions intact. Lids and lashes normal. Conjunctiva and sclera are non-icteric and not injected. Cornea within normal limits. Periorbital areas with no swelling, redness, or edema. ENT: Moist Mucous membranes Neck: Trachea midline, no thyromegaly or masses palpated, and no cervical lymphadenopathy. Supple, full range of motion without nuchal rigidity, or vertebral point tenderness. No Meningismus. Chest/axilla: Normal chest wall appearance and motion. Cardiovascular: Regular rate Respiratory: Respirations even and unlabored. No increased work of breathing. Talking in full sentences Abdomen/GI: Soft, non-tender. No distention MS/ Extremity: Pulses equal, no cyanosis. Neurovascular intact. Full, normal range of motion. Neuro: Awake and alert, GCS 15, oriented to person, place, time, and situation. Moves all extremities. Normal gait. 15:16 Skin: injury, abrasion(s), small abrasion noted, of the left hand and right hand and back and right ear and right knee, Vital Signs: 13:34 BP 158 / 82; Pulse 65; Resp 18; Temp 98.1; Pulse Ox 99% on R/A; Pain 0/10; ll1 13:34 Pain Scale: Adult ll1 MDM: 13:12 Patient medically screened. kb 15:18 Differential diagnosis: abrasion, closed head injury, contusion. Data reviewed: vital kb signs, nurses notes. Test considered but Not performed: X-ray: x-rays of extremities considered, but pt has no bony tenderness, full rom. . Counseling: I had a detailed discussion with the patient and/or guardian regarding the historical points, exam findings, and any diagnostic results supporting the discharge/admit diagnosis, radiology results, the need for outpatient follow up, a family practitioner, to return to the emergency department if symptoms worsen or persist or if there are any questions or concerns that arise at home. 04/03 13:41 Order name: CT Head Brain wo Cont; Complete Time: 14:48 kb Administered Medications: 15:30 Drug: Tetanus Toxoid,Adsorbed IM 0.5 ml IM once; Provide Vaccine Information Statement ll1 (VIS). {Multi Slide Machine Tender: [employer]; Exp: Sat Nov 03 2024; Lot #: [id number]; Series: 1 of 1; Patient Consent: Obtained; Date/Time: ; Source Name: Cole Jeffrey; Source Relationship: Self; Address Information: [address] [facility] [address]; ; Education: Provided; VIS Presented Date: ; VIS Publication: Tetanus/Diphtheria (Td) Vaccine VIS 09/21/2016 (historic)} Route: IM; Site: right deltoid; Disposition: 04/04 10:00 Co-signature as Attending Physician, John Paul Thapa MD I reviewed the patient's care rn provided by the Advanced Practice Provider and agree with the diagnosis and treatment plan. Disposition Summary: 04/03/23 14:52 Discharge Ordered Notes: Location: Home kb Condition: Stable kb Diagnosis - Fall (on) (from) unspecified stairs and steps kb - abrasion kb - contusion kb - Unspecified injury of head, initial encounter kb Followup: kb - With: Emergency Department - When: As needed - Reason: Worsening of condition Followup: kb - With: Private Physician - When: 2 - 3 days - Reason: Recheck today's complaints, Continuance of care, Re-evaluation by your physician Discharge Instructions: - Discharge Summary Sheet kb - Contusion, [id number] kb - Abrasion, [id number] kb - Head Injury, Adult, [id number] kb Forms: - Medication Reconciliation Form kb - Thank You Letter kb - Antibiotic Education kb - Prescription Opioid Use kb - Patient Portal Instructions kb - Leadership Thank You Letter kb Signatures: Dispatcher [employer] Anny Aly, ZOOLOGY TECHNICAL OFFICER-C ZOOLOGY TECHNICAL OFFICER-Ckb John Paul Thapa MD MD rn Lewis, Lynsay, RN RN ll1
[2023-04-03] MEDS ORDERED: TDAP (DIPHTH,PERTUSS(ACELL),TET VAC) 0.5 ML VIAL IMVAC ONE (15:40)
== END 2023-04-03 15:31 | disposition home or self-care (01) ==
LOC: ER 13:02
DX: S60.512A Abrasion of left hand, initial encounter (principal); S60.511A Abrasion of right hand, initial encounter; S00.411A Abrasion of right ear, initial encounter; S80.211A Abrasion, right knee, initial encounter; S50.811A Abrasion of right forearm, initial encounter; S30.810A Abrasion of lower back and pelvis, initial encounter; S09.90XA Unspecified injury of head, initial encounter; W10.9XXA Fall (on) (from) unspecified stairs and steps, initial encounter; Z23 Encounter for immunization; Z95.1 Presence of aortocoronary bypass graft; Z88.2 Allergy status to sulfonamides
CPT/HCPCS: 70450; 90471; 99284

== ENCOUNTER 2023-04-27 15:21 | Emergency (ER) | payer OTHER, MEDICARE ==
--- OUTSIDE RECORDS SUMMARY | 2023-04-27 15:24 | XMS REPORT | Clinical Summary ---
:1940 Author Organization [facility] MD [facility] Address [address] [place] [address] Care Team Providers Name Role Phone Yadi [...] TOTAL KNEE ARTHROPLASTY 06/13/2013 - Left 06/12/2014 CT EXCISION MALIGNANT 05/13/2016 Right Procedure: wide local, LESION F/E/E/N/L 0.5 CM/< Right auricle; Surgeon: Kwame Santiago MD; Location: [facility] R; Service: - AD & NECK SURGERY CT SPLIT AGRFT T/A/L 1ST 05/13/2016 Right Procedu re: SPLIT 100 CM/&/1% BDY INFT/CHLD THICKN ESS SKIN GRAFT OF TRUNK/ARM OR LEG ; Surgeon: Kwame cotto MD; Location: [place]; Service: HN - HE AD & NECK [...] Father -Breast cancer Mother Delfin Paul from [facility] Relation Name Status Comments Father Mother [...] Vaccination (#1) 1940 Results Not on fileafter 04/27/2022 Insurance Payer Benefit Plan Subscriber ID Effective Phone Address Typ e / Group Dates MEDICARE MEDICARE PART [id number] 2003-Pres [phone] [place] Medicare A AND B ent [id number] [facility] [place] [address] [place] [id number] 1992-Pres [address] [employer] ONLY ent [id number] [place] [address] Advance Directives Type Date Recorded 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 Explanati on Advance Directives: 05/14/2016 Directive to Physicians Living Will and Family or Surrogates-Jeanettein kathi Will Advance Directives: 05/14/2016 Medical Sinan r of Commissioned Police Officer Medical Power of Commissioned Police Officer Code Status Date Activated Date Inactivated Comments Full Code 05/13/2016 1:54 PM 05/13/2016 9:10 PM Care Teams Emergency Department Manager Relationship Specialty Start Date End Date Yadi Childs MD PCP - General Head and Neck Surgery 04/23/15 [address] [place] [address] Keysha Felix MD PCP - External Dermatology 04/23/[address] [place] [id number] Damir Lucero PCP - External Primary Family Practice 04/26/16 MD Anthony Care Provider [address] [place] [phone] Kwame Santiago MD Consulting Physician Head and Neck Surgery 05/12/[address] [place] [address] [phone] Aminah Zuniga, Consulting Physician Internal Medicine 05/03/[address] [place] [phone]
--- OUTSIDE RECORDS SUMMARY | 2023-04-27 15:35 | XMS REPORT | Continuity of Care Document ---
:1940 Author Organization [facility] t Address [address] [facility] [address] [place] [address] Care Team Providers Name Role Phone KAVYA RODRIGUEZ Primary Care Physician Unavailable Silverio Cope Attending Clinician Unavailable January Mccollum Attending Clinician Unavailable FRANSISCO MARTINEZ Attending Clinician Unavailable SIERRA COPELAND Attending Clinician Unavailable Sierra Copeland DO Attending Clinician Ruiz Bhatti Attending Clinician Unavailable Dabaghi, Salim F Cardiology Attending Clinician Unavailable CARISSA BACON Attending Clinician Unavailable Jordi BIAZZI NITRATOR OPERATOR, Carissa Snowden Attending Clinician Unknown, Attending Attending Clinician Unavailable Hollie_Jarrell Attending Clinician Unavailable JOVAN TINOCO Attending Clinician Unavailable Jovan Tinoco DO Attending Clinician Darrius_T Attending Clinician Unavailable Sandy Cummings DO Attending Clinician MICHAEL BARBOUR Attending Clinician Unavailable Nurse, [facility] Attending Clinician Unavailable Km BIAZZI NITRATOR OPERATOR, Michael Attending Clinician Andreina Hernandez Attending Clinician [phone] Kojo PEARSON, Tammy Attending Clinician TAMMY CHINCHILLA Attending Clinician Unavailable Doctor Unassigned, [place] Attending Clinician Unavailable ELLIOTT GOMEZ Attending Clinician Unavailable Jason BIAZZI NITRATOR OPERATOR, Elliott Attending Clinician Ludwig Browne Attending Clinician [phone] Marcello Garvin Attending Clinician Unavailable Rafal Marquez Attending Clinician Unavailable Radha Haas Attending Clinician Unavailable Sandy Rivera MD Attending Clinician SANDY RIVERA Attending Clinician Unavailable Lanette PEARSON, Mann Attending Clinician Fransisco Martinez DPM Attending Clinician Concepción PEARSON, Germán Vuong Attending Clinician Ricardo Hightower DO Attending Clinician Marilyn Costa MD Attending Clinician [phone] Ellis Abrams MD Attending Clinician Madiha Méndez MD Attending Clinician Benitez Copeland NP Attending Clinician KAVYA RODRIGUEZ Attending Clinician Unavailable Lobo Marin Attending Clinician Unavailable Noni Marquez Admitting Clinician Unavailable FRANSISCO MARTINEZ Admitting Clinician Unavailable Ruiz Bhatti Admitting Clinician Unavailable Anthony Admitting Clinician Unavailable JOVAN TINOCO Admitting Clinician Unavailable Kary Admitting Clinician Unavailable Marcello Garvin Admitting Clinician Unavailable Rafal Marquez Admitting Clinician Unavailable Radha Haas Admitting Clinician Unavailable MARILYN COSTA Admitting Clinician Unavailable Lobo Marin Admitting Clinician Unavailable Payers Payer Name Policy Type Policy Number Effective Date Expiration Date S cheyanne MEDICARE A B [id number] 2003 00:00:00 [facility] [id number] 2020 HEALTHCARE 00:00:00 MEDICARE PART A \\T\\ [id number] 2003 B 00:00:00 [facility] [id number] 2017 MEDICARE SUPPLEMENT 00:00:00 [place]ICARE B-[place]: [id number] 2003 [place] SOLUTIONS 00:00:00 [facility] [id number] 2017 OPTIONS (MEDICARE 00:00:00 SUPPLEMENT) Problems Condition [...] 6-25 [facility] infection infection 00:00: [facility] [place] 00 Center Bilateral Bilateral Disease Active Uni vers impacted impacted 2 ity of cerumen cerumen 00:00: [place] 00 [facility] 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 2-01 ity of of skin [place] left ear left ear 00 external external n auricular 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 Meniere 00:00: [place] disease disease 00 MD [facility] [place] Basal cell Basal cell Disease Active 2015-06 U ki carcinoma carcinoma 1-30 ity of of skin of of skin [place] right ear right ear 00 MD Shad tr[facility]ong [facility] 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 00:00: [place] loss, loss, 00 bilateral bilateral Faheem rso [facility] 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 [place] 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 hearing Anderso loss loss n [facility] [place] 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 (severe) (severe) 07-03 ity of obesity obesity 00:00: [place] due to due to 00 excess excess Anderso calories calories Cancer [place] Essential Essential Disease Active 2015-06 Uni vers (primary) (primary) 07-03 ity of hypertensi hypertensi [place] [facility] tr[facility] Diabetes Diabetes Disease Active 2015-06 Unive rs mellitus mellitus 07-03 ity of due to due to 00:00: [place] underlying underlying 00 condition condition Faheem rso with with n complicati complicati Ca ncer on on Center Hypothyroi Hypothyroi Disease Active 2015-06 U ki dism dism - ity of 00:00: [place] 00 [facility] Hyperlipid Hyperlipid Disease Active 2015-06 U ki emia emia 07-03 ity of 00:00: [place] 00 MD hSad truong [facility] Alcohol Alcohol Disease Active 2015-06 Univers use use 07-03 ity of disorder, disorder, 00:[place] mild mild 00 [place] [facility] Acute Acute Problem Active [place] cystitis Cystitis 09-14 [facility] 00:00: Urology 00 Large Large Problem Active [place] prostate Prostate 4-04 [facility] 00:00: Urology 00 Infectious Infectious Disease Active Overview : Univers disease disease 06-13 Formattin ity o f 00:00: g of this note might be Anderso different n from the Cancer original. Center infection s due to cracks in feet/dry skin Arteriopat Arteriopat Problem Active H brigitte [facility] hic 5-27 [facility] impotence Impotence 00:00: Urol [...] exas of skin of of skin of 00 note ear ear might be Anderso different [...] [place] 00 [facility] [id number] Other Problem Common obesity Spirit due to - [facility] excess [facility] [id number] Iron Problem Common deficiency Spirit anemia, - CHI unspecifie [facility] iron [facility] deficiency Medica l anemia Center type [id number] Body mass Problem Com mon index Spirit [BMI] - CHI 32.0-32.9, [facility] [id number] Paroxysmal Problem Co mmon atrial Spirit fibrillati - [facility] on [facility] [id number] Mixed Problem Common hyperlipid Spirit emia - CHI [facility] [id number] Amputation 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 - CH[facility] [id number] Long-term Problem Com mon (current) Spirit use of - CHI anticoagul [facility] ants, [facility] goal Medical 2.0-3.0 Center [id number] Benign Problem Common prostatic Spirit hyperplasi - CHI a with [facility] urinary Medical tract Center symptoms, symptom details unspecifie d [id number] Hypothyroi Problem Co mmon dism Spirit (acquired) - [facility] [id number] Essential Problem Comm on (primary) Spirit hypertensi - CHI on [facility] [id number] 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 [id number] Type 2 Problem Common diabetes Spirit mellitus - [facility] with [facility] without Center long-term current use of insulin [id number] GERD Problem Common without Spirit esophagiti - CHI s [facility] [id number] 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 Center slip and fall Presence Presence Disease Active Overview: Un phong of other of other Formattin ity of specified specified g of this [place] device device note might be Anderso different n from the Cancer original. Center 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 Allergies, Adverse Reactions, Alerts Allergy Allergy Status Severity Reaction(s) Onset Inactive Treating Comm ents Source Name Type Date Date Clinician EMPAGLIF DRUG Active Rash [facility] DANNY BOTELLOI 3-15 ity of 00:00: [address] Empaglif Propensi Active Rash Univer s lozin ty to 3-15 ity of adverse 00:00: [place] reaction 00 Medical s Branch Sulfa DA Active U 2020-06 [facility] (Sulfona 0-28 [place] mide 00:00: [place] Antibiot 00 Medical ics) Center canaglif DA Active U 2020-06 [facility] lozin 0-28 [place] 00:00: [address] Sulfa DA Active U ITCHING 2020-06 [facility] (Sulfona 0-28 [place] mide 00:00: d Antibiot 00 Medical ics) Center canaglif DA Active U ITCHING 2020-06 [facility] lozin 0-28 [place]: [place] [facility] [place] Sulfa DA Active U 2020-06 [facility] (Sulfona 0-16 [place] mide 00:00: [place] Antibio Medical ics) Center canaglif DA Active U 2020-06 [facility] lozin 0-16 [place] 00:00: [address] Sulfa DA Active U ITCHING 2020-06 [facility] (Sulfona 0-16 [place] mide 00:00: [place] Antibio 00 Medical ics) Center canaglif DA Active U ITCHING 2020-06 [facility] lozin 0-16 [place] 00:00: [address] SULFA Drug Active Med Hives 2018-06 Univers (SULFONA Class 1-18 ity of MIDE 00:00: [place] ANTIBIOT 00 Medical ICS) Branch Sulfa Propensi Active Hives 2018-06 Univers (Sulfona ty to 1-18 ity of mide adverse 00:00: [place] Antibiot reaction 00 Medica l ics) s Branch Sulfa Propensi Active Hives 2018-06 Univers (Sulfona ty to 1-18 ity of mide adverse 00:00: [place] Antibiot reaction 00 Medica l ics) s Branch canaglif DA Active U [facility] lozin 03-09 [place] 00:00: [address] canaglif DA Active U ITCHING [facility] lozin 03-09 [place] 00:00: [address] Jardianc Allergy Active Severe Hives [place] e to Family substanc Practic e e Substanc Substanc Active Unknown Commo n e with e with Spirit sulfonam sulfonam - [facility] ronnell ronnell [facility] structur structur [facility] Medical antibact antibact Center erial erial mechanis mechanis m of m of action action (substan (substan ce) ce) NO KNOWN Allergy Active [facility] Family History Family Member Diagnosis Comments Start Date Stop Date Source Natural father Coronary heart [facility] disease (CHD) [place] [facility] [place] Natural father Heart disease Univers [facility] MD [place] [facility] Natural father Heart attack [facility] Natural mother -Breast cancer [facility] Natural mother Breast cancer [facility] Social History Social Habit Start Date Stop Date Quantity Comments Source History of Tobacco Common Spirit - Use [facility] Gender identity Universit y of [facility] History [facility] Alcohol Comment Medical C enter Sexual orientation [facility] MD Johnnie garrett [facility] Exposure to 2022-08-16 2022-08-26 Not sure University SARS-CoV-2 (event) 00:00:00 10:12:00 [facility] Tobacco use and 2021-08-25 2021-08-25 Smokeless Universit y of exposure 00:00:00 00:00:00 tobacco non-user [facility] Alcohol intake 2021-01-20 2021-01-20 [facility] alcohol Medical Center (finding) History SDWA 2020-12-05 2020-12-[address] [facility] Alcohol Frequency 00:00:00 00:00:00 Medical Center History SDOH 2020-12-05 2020-12-[address] [facility] Alcohol Std Drinks 00:00:00 00:00:00 Medica l Center History SDOH 2020-12-05 2020-12-[address] [facility] Alcohol Binge 00:00:00 00:00:[address] Cigarettes smoked 2020-12-05 2020-12-[address] [facility] current (pack per 00:00:00 00:00:00 Medical Center day) - Reported Cigarette 2020-12-05 2020-12-[address] [facility] pack-years 00:00:00 00:00:00 Medical Center History of Social 2018-09-02 2018-09-02 Univers ity of function 00:00:00 00:00:00 [facility] Tobacco Comment 2016-04-27 2016-04-27 already quit 29 Univ ersity of 00:00:00 00:00:00 years ago [facility] Sex Assigned At [birth year] Universit y of 00:00:00 00:00:00 [facility] Smoking Status Start Date Stop Date Source Former Smoker 2023-04-05 00:00:00 2023-04-05 00:00:00 Common S pirit - [facility] Ce nter Never smoked tobacco [facility] Medications Ordered Filled Start Stop Current Ordering Indication Dosage Frequency Signature Comments Components Source Medication Medication Date Date Medication? Clinician (SIG) Name Name Mupirocin 2 Mupirocin 2 2022-06 No 1{appli BID Mupirocin % % 0-24 cation} 2 % 00:00: 00 Metoprolol Metoprolol No 1{capsu QD Metoprolol Succinate Succinate 5-11 le} Succinate 25 MG 25 MG 00:00: 25 MG 00 Magnesium Magnesium No Magnesium 5-11 00:00: 00 Daily Daily 0 No Daily Vitamin Vitamin 5-11 Vitamin 00:00: 00 Daily Daily 0 No Daily Vitamin Vitamin 5-11 Vitamin 00:00: 00 Metoprolol Metoprolol 0 No 1{capsu QD Metoprolol Succinate Succinate 5-11 le} Succinate 25 MG 25 MG 00:00: 25 MG 00 Magnesium Magnesium No Magnesium 5-11 00:00: 00 amLODIPine 0 Yes 1 tablet Uni vers 2.5 mg 3-16 ity of tablet 10:21: [address] simvastatin Yes simvastati Univers 20 mg 3-16 n 20 mg ity of tablet 10:21: tablet one [place] [id number] [facility] amLODIPine Yes 1 tablet Uni vers 2.5 mg 3-16 ity of tablet 10:21: [address] simvastatin Yes simvastati Univers 20 mg 3-16 n 20 mg ity of tablet 10:21: tablet one [address] cefdinir 0 2022- No [id number] 300mg Take 1 U nivers 300 mg 3-16 03-27 capsule by ity of capsule 00:00: 04:59 mouth [place] 00 :00 every 12 Medical (twelve) Branch hours for 10 days. Azithromyci Azithromyci 2021-06- No QD Azithromyc n 250 MG n 250 MG 0-19 10-24 in 250 MG 00:00: 00:00 00 :00 Azithromyci Azithromyci 2021-06- No QD Azithromyc n 250 MG n 250 MG 0-19 10-24 in 250 MG 00:00: 00:00 00 :00 benzonatate 2021-06 Yes [id number] 100mg Take 1 Univers 100 mg 0-13 capsule by ity of capsule 00:00: mouth 3 [place] 00 (three) Medical times Branch daily as needed for Cough. fluticasone 2021-06 Yes [id number] 2{spray Use 2 Univers 27.5 0-13 } Sprays in ity of mcg/actuati 00:00: each [place] on nasal 00 nostril in Medic al spray the Branch morning. benzonatate 2021-06 Yes [id number] 100mg Take 1 Univers 100 mg 0-13 capsule by ity of capsule 00:00: mouth 3 [place] 00 (three) Medical times Branch daily as needed for Cough. fluticasone 2021-06 Yes [id number] 2{spray Use 2 Univers 27.5 0-13 } Sprays in ity of mcg/actuati 00:00: each [place] on nasal 00 nostril in Medic al spray the Branch morning. benzonatate 2021-06 Yes [id number] 100mg Take 1 Univers 100 mg 0-13 capsule by ity of capsule 00:00: mouth 3 [place] 00 (three) Medical times Branch daily as needed for Cough. fluticasone 2021-06 Yes [id number] 2{spray Use 2 Univers 27.5 0-13 } Sprays in ity of mcg/actuati 00:00: each [place] on nasal 00 nostril in Medic al spray the Branch morning. phytonadion No 2.5mg 2.5 mg, U nivers e (vitamin 9-14 09-14 Oral, ity of K1) 04:00: 15:59 ONCE, 1 [place] (MEPHYTON) 00 :00 dose, On Medic al tablet 2.5 Tue Branch mg 02/23/22 at 2300, Routine amLODIPine Yes 1 tablet Uni vers 2.5 mg 8-29 ity of tablet 17:29: [address] amLODIPine Yes 1 tablet Uni vers 2.5 mg 8-29 ity of tablet 17:29: [address] amLODIPine Yes 1 tablet Uni vers 2.5 mg 8-29 ity of tablet 17:29: [address] amLODIPine Yes 1 tablet Uni vers 2.5 mg 8-29 ity of tablet 17:29: [address] amLODIPine Yes 1 tablet Uni vers 2.5 mg 8-29 ity of tablet 17:29: [address] cefdinir 2021- No [id number] 300mg Take 1 U nivers 300 mg 02-08 0909 capsule by ity of capsule 00:00: 04:59 mouth in [place] 00 :[address] [facility] Branch and 1 capsule in the evening. Do all this for 10 days. losartan Yes losartan Unive rs 100 mg 4-10 100 mg ity of tablet 16:46: tablet [address] aspirin 325 Yes 325mg Take 325 U nivers mg tablet 4-10 mg by ity of 16:46: mouth. [address] losartan Yes losartan Unive rs 100 mg 4-10 100 mg ity of tablet 16:46: tablet [address] aspirin 325 0 Yes 325mg Take 325 U nivers mg tablet 4-10 mg by ity of 16:46: mouth. [address] losartan Yes losartan Unive rs 100 mg 4-10 100 mg ity of tablet 16:46: tablet [address] aspirin 325 0 Yes 325mg Take 325 U nivers mg tablet 4-10 mg by ity of 16:46: mouth. [address] losartan Yes losartan Unive rs 100 mg 4-10 100 mg ity of tablet 16:46: tablet [address] aspirin 325 0 Yes 325mg Take 325 U nivers mg tablet 4-10 mg by ity of 16:46: mouth. [address] losartan Yes losartan Unive rs 100 mg 4-10 100 mg ity of tablet 16:46: tablet [address] aspirin 325 0 Yes 325mg Take 325 U nivers mg tablet 4-10 mg by ity of 16:46: mouth. [address] losartan Yes losartan Unive rs 100 mg 4-10 100 mg ity of tablet 16:46: tablet [address] aspirin 325 0 Yes 325mg Take 325 U nivers mg tablet 4-10 mg by ity of 16:46: mouth. [address] losartan Yes losartan Unive rs 100 mg 4-10 100 mg ity of tablet 16:46: tablet [address] aspirin 325 0 Yes 325mg Take 325 U nivers mg tablet 4-10 mg by ity of 16:46: mouth. [address] losartan Yes losartan Unive rs 100 mg 4-10 100 mg ity of tablet 16:46: tablet [address] aspirin 325 Yes 325mg Take 325 U nivers mg tablet 4-10 mg by ity of 16:46: mouth. [address] losartan Yes losartan Unive rs 100 mg 4-10 100 mg ity of tablet 16:46: tablet [address] aspirin 325 0 Yes 325mg Take 325 U nivers mg tablet 4-10 mg by ity of 16:46: mouth. [address] losartan Yes losartan Unive rs 100 mg 4-10 100 mg ity of tablet 16:46: tablet [address] aspirin 325 0 Yes 325mg Take 325 U nivers mg tablet 4-10 mg by ity of 16:46: mouth. [address] furosemide Yes furosemide U nivers 40 mg 4-10 40 mg ity of tablet 16:45: tablet [address] furosemide 0 Yes furosemide U nivers 40 mg 4-10 40 mg ity of tablet 16:45: tablet [address] furosemide Yes furosemide U nivers 40 mg 4-10 40 mg ity of tablet 16:45: tablet [address] furosemide Yes furosemide U nivers 40 mg 4-10 40 mg ity of tablet 16:45: tablet [address] furosemide Yes furosemide U nivers 40 mg 4-10 40 mg ity of tablet 16:45: tablet [address] furosemide Yes furosemide U nivers 40 mg 4-10 40 mg ity of tablet 16:45: tablet [address] furosemide Yes furosemide U nivers 40 mg 4-10 40 mg ity of tablet 16:45: tablet [address] furosemide Yes furosemide U nivers 40 mg 4-10 40 mg ity of tablet 16:45: tablet [address] furosemide Yes furosemide U nivers 40 mg 4-10 40 mg ity of tablet 16:45: tablet [address] furosemide Yes furosemide U nivers 40 mg 4-10 40 mg ity of tablet 16:45: tablet [address] SITagliptin Yes Januvia Uni vers (JANUVIA) 4-10 100 mg ity of 100 mg 16:43: tablet [place] tablet 45 [facility] SITagliptin Yes Januvia Uni vers (JANUVIA) 4-10 100 mg ity of 100 mg 16:43: tablet [place] tablet 45 [facility] Branch SITagliptin Yes Januvia Uni vers (JANUVIA) 4-10 100 mg ity of 100 mg 16:43: tablet [place] tablet 45 [facility] SITagliptin Yes Januvia Uni vers (JANUVIA) 4-10 100 mg ity of 100 mg 16:43: tablet [place] tablet 45 [facility] SITagliptin Yes Januvia Uni vers (JANUVIA) [...] mg 16:43: tablet [place] tablet 45 Medical [place] SITagliptin Yes Januvia Uni vers (JANUVIA) 4-10 100 mg ity of 100 mg 16:43: tablet [place] tablet 45 Medical Branch levothyroxi Yes levothyrox Univers ne 100 mcg 4-10 ine sodium ity of tablet 16:42: [address] amiodarone Yes amiodarone U nivers 200 mg 4-10 200 mg ity of tablet 16:42: tablet [address] digoxin 250 Yes digoxin Uni vers mcg (0.25 4-10 250 mcg ity of mg) tablet 16:42: (0.25 mg[place] 24 tablet [facility] finasteride Yes finasterid Univers 5 mg tablet 4-10 e 5 mg ity of 16:42: tablet [place] 24 TAKE ONE Medical TABLET BY Branch MOUTH DAILY oxybutynin Yes oxybutynin U nivers chloride 5 4-10 chloride 5 ity of mg tablet 16:42: mg tablet [place] as 24 [facility] levothyroxi Yes levothyrox Univers ne 100 mcg 4-10 ine sodium ity of tablet 16:42: [address] amiodarone Yes amiodarone U nivers 200 mg 4-10 200 mg ity of tablet 16:42: tablet [address] digoxin 250 Yes digoxin Uni vers mcg (0.25 4-10 250 mcg ity of mg) tablet 16:42: (0.25 mg) [place] 24 tablet [facility] finasteride Yes finasterid Univers 5 mg tablet 4-10 e 5 mg ity of 16:42: tablet [place] 24 TAKE ONE Medical TABLET BY Branch MOUTH DAILY oxybutynin Yes oxybutynin U nivers chloride 5 4-10 chloride 5 ity of mg tablet 16:42: mg tablet [place] as 24 [facility] levothyroxi Yes levothyrox Univers ne 100 mcg 4-10 ine sodium ity of tablet 16:42: [address] amiodarone Yes amiodarone U nivers 200 mg 4-10 200 mg ity of tablet 16:42: tablet [address] digoxin 250 Yes digoxin Uni vers mcg (0.25 4-10 250 mcg ity of mg) tablet 16:42: (0.25 mg) [place] 24 tablet [facility] finasteride Yes finasterid Univers 5 mg tablet 4-10 e 5 mg ity of 16:42: tablet [place] 24 TAKE ONE Medical TABLET BY Branch MOUTH DAILY oxybutynin Yes oxybutynin U nivers chloride 5 4-10 chloride 5 ity of mg tablet 16:42: mg tablet David as [address] [place] [address] levothyroxi Yes levothyrox Univers ne 100 mcg 4-10 ine sodium ity of tablet 16:42: [address] amiodarone Yes amiodarone U nivers 200 mg 4-10 200 mg ity of tablet 16:42: tablet [address] digoxin 250 Yes digoxin Uni vers mcg (0.25 4-10 250 mcg ity of mg) tablet 16:42: (0.25 mg) [place] 24 tablet [facility] finasteride Yes finasterid Univers 5 mg tablet 4-10 e 5 mg ity of 16:42: tablet [place] [address] TAKE ONE Medical TABLET BY Branch MOUTH DAILY oxybutynin Yes oxybutynin U nivers chloride 5 4-10 chloride 5 ity of mg tablet 16:42: mg tablet David as [address] [place] [address] levothyroxi Yes levothyrox Univers ne 100 mcg 4-10 ine sodium ity of tablet 16:42: [address] amiodarone Yes amiodarone U nivers 200 mg 4-10 200 mg ity of tablet 16:42: tablet [address] digoxin 250 Yes digoxin Uni vers mcg (0.25 4-10 250 mcg ity of mg) tablet 16:42: (0.25 mg) [place] 24 tablet [facility] finasteride Yes finasterid Univers 5 mg tablet 4-10 e 5 mg ity of 16:42: tablet [place] 24 TAKE ONE Medical TABLET BY Branch MOUTH DAILY oxybutynin Yes oxybutynin U nivers chloride 5 4-10 chloride 5 ity of mg tablet 16:42: mg tablet David as 24 Medical [place] levothyroxi Yes levothyrox Univers ne 100 mcg 4-10 ine sodium ity of tablet 16:42: 100 mcg [place] [address] [place] [address] amiodarone Yes amiodarone U nivers 200 mg 4-10 200 mg ity of tablet 16:42: tablet [address] digoxin 250 Yes digoxin Uni vers mcg (0.25 4-10 250 mcg ity of mg) tablet 16:42: (0.25 mg) [place] 24 tablet [facility] finasteride Yes finasterid Univers 5 mg tablet 4-10 e 5 mg ity of 16:42: tablet [place] [address] TAKE ONE Medical TABLET BY Branch MOUTH DAILY oxybutynin Yes oxybutynin U nivers chloride 5 4-10 chloride 5 ity of mg tablet 16:42: mg tablet David as [address] [place] [address] levothyroxi Yes levothyrox Univers ne 100 mcg 4-10 ine sodium ity of tablet 16:42: [address] amiodarone Yes amiodarone U nivers 200 mg 4-10 200 mg ity of tablet 16:42: tablet [address] digoxin 250 Yes digoxin Uni vers mcg (0.25 4-10 250 mcg ity of mg) tablet 16:42: (0.25 mg) [place] 24 tablet [facility] finasteride Yes finasterid Univers 5 mg tablet 4-10 e 5 mg ity of 16:42: tablet [place] [address] TAKE ONE Medical TABLET BY Branch MOUTH DAILY oxybutynin Yes oxybutynin U nivers chloride 5 4-10 chloride 5 ity of mg tablet 16:42: mg tablet [place] as [address] [place] [address] levothyroxi Yes levothyrox [facility] ne 100 mcg 4-10 ine sodium ity of tablet 16:42: 100 mcg [place] [address] [place] [address] amiodarone Yes amiodarone U nivers 200 mg 4-10 200 mg ity of tablet 16:42: tablet [address] digoxin 250 Yes digoxin Uni vers mcg (0.25 4-10 250 mcg ity of mg) tablet 16:42: (0.25 mg) [place] 24 tablet Medical Branch finasteride Yes finasterid [facility] 5 mg tablet 4-10 e 5 mg ity of 16:42: tablet [place] 24 TAKE ONE Medical TABLET BY Branch MOUTH DAILY oxybutynin Yes oxybutynin U nivers chloride 5 4-10 chloride 5 ity of mg tablet 16:42: mg tablet [place] 24 [facility] levothyroxi Yes levothyrox Univers ne 100 mcg 4-10 ine sodium ity of tablet 16:42: 100 mcg [place] [address] [place] [address] amiodarone Yes amiodarone U nivers 200 mg 4-10 200 mg ity of tablet 16:42: tablet [address] digoxin 250 Yes digoxin Uni vers mcg (0.25 4-10 250 mcg ity of mg) tablet 16:42: (0.25 mg) [place] 24 tablet [facility] finasteride Yes finasterid Univers 5 mg tablet 4-10 e 5 mg ity of 16:42: tablet [place] 24 TAKE ONE Medical TABLET BY Branch MOUTH DAILY oxybutynin Yes oxybutynin U nivers chloride 5 4-10 chloride 5 ity of mg tablet 16:42: mg tablet [place] 24 [facility] levothyroxi Yes levothyrox Univers ne 100 mcg 4-10 ine sodium ity of tablet 16:42: [address] [place] [address] amiodarone Yes amiodarone U nivers 200 mg 4-10 200 mg ity of tablet 16:42: tablet [address] digoxin 250 Yes digoxin Uni vers mcg (0.25 4-10 250 mcg ity of mg) tablet 16:42: (0.25 mg) [place] 24 tablet Medical Branch finasteride Yes finasterid [facility] 5 mg tablet 4-10 e 5 mg ity of 16:42: tablet [place] 24 TAKE ONE Medical TABLET BY Branch MOUTH DAILY oxybutynin Yes oxybutynin U nivers chloride 5 4-10 chloride 5 ity of mg tablet 16:42: mg tablet [place] 24 [facility] clopidogreL Yes Univer s 75 mg 3-06 ity of tablet 00:00: [place] 00 Medical Branch metoprolol 2022-0 Yes Univers tartrate 50 3-06 ity of mg tablet 00:00: [place] 00 Medical Branch clopidogreL 2022-0 Yes Univer s 75 mg 3-06 ity of tablet 00:00: [place] 00 Medical Branch metoprolol 2022-0 Yes Univers tartrate 50 3-06 ity of mg tablet 00:00: [place] 00 Medical Branch clopidogreL 2022-0 Yes Univer s 75 mg 3-06 ity of tablet 00:00: [place] 00 Medical Branch metoprolol 2022-0 Yes Univers tartrate 50 3-06 ity of mg tablet 00:00: [place] [address] Medical Branch clopidogreL 2022-0 Yes Univer s 75 mg 3-06 ity of tablet 00:00: [place] [address] Medical Branch metoprolol 2-0 Yes Univers tartrate 50 3-06 ity of mg tablet 00:00: [place] [address] Medical Branch clopidogreL 2022-0 Yes Univer s 75 mg 3-06 ity of tablet 00:00: [place] [facility] metoprolol 2022-0 Yes Univers tartrate 50 3-06 ity of mg tablet 00:00: [place] [address] Medical Branch clopidogreL 2022-0 Yes Univer s 75 mg 3-06 ity of tablet 00:00: [place] [address] Medical Branch metoprolol 2022-0 Yes Univers tartrate 50 3-06 ity of mg tablet 00:00: [place] [address] Medical Branch clopidogreL 2022-0 Yes Univer s 75 mg 3-06 ity of tablet 00:00: [place] [address] Medical Branch metoprolol 2022-0 Yes Univers tartrate 50 3-06 ity of mg tablet 00:00: [place] 00 Medical Branch clopidogreL 2022-0 Yes Univer s 75 mg 3-06 ity of tablet 00:00: [place] [address] Medical Branch metoprolol 2022-0 Yes Univers tartrate 50 3-06 ity of mg tablet 00:00: [place] [address] Medical Branch clopidogreL 2022-0 Yes Univer s 75 mg 3-06 ity of tablet 00:00: [place] [address] Medical Branch metoprolol 2022-0 Yes Univers tartrate 50 3-06 ity of mg tablet 00:00: [place] [address] Medical Branch clopidogreL 2022-0 Yes Univer s 75 mg 3-06 ity of tablet 00:00: [place] 00 Medical Branch metoprolol 2022-0 Yes Univers tartrate 50 3-06 ity of mg tablet 00:00: [place] [facility] warfarin 5 2-0 Yes Univers mg tablet 2-18 ity of 00:00: [place] [facility] warfarin 5 2-0 Yes Univers mg tablet 2-18 ity of 00:00: [place] [facility] warfarin 5 2-0 Yes Univers mg tablet 2-18 ity of 00:00: [place] [facility] warfarin 5 2-0 Yes Univers mg tablet 2-18 ity of 00:00: [place] [facility] warfarin 5 2-0 Yes Univers mg tablet 2-18 ity of 00:00: [place] [address] Medical Branch warfarin 5 2-0 Yes Univers mg tablet 2-18 ity of 00:00: [place] [address] Medical Branch warfarin 5 2021-0 Yes Univers mg tablet 2-18 ity of 00:00: [place] [facility] Branch warfarin 5 2021-0 Yes Univers mg tablet 2-18 ity of 00:00: [address] Branch warfarin 5 2021-0 Yes Univers mg tablet 2-18 ity of 00:00: [address] Branch warfarin 5 2021-0 Yes Univers mg tablet 2-18 ity of 00:00: [address] Branch tamsulosin 2-0 Yes Univers 0.4 mg 24 1-07 ity of hr capsule 00:00: [address] Branch tamsulosin 2-0 Yes Univers 0.4 mg 24 1-07 ity of hr capsule 00:00: [address] Branch tamsulosin 2-0 Yes Univers 0.4 mg 24 1-07 ity of hr capsule 00:00: [place] [address] Medical Branch tamsulosin 2-0 Yes Univers 0.4 mg 24 1-07 ity of hr capsule 00:00: [place] [address] Medical Branch tamsulosin 2-0 Yes Univers 0.4 mg 24 1-07 ity of hr capsule 00:00: [place] [facility] tamsulosin 2-0 Yes Univers 0.4 mg 24 1-07 ity of hr capsule 00:00: [place] [address] Medical Branch tamsulosin 2-0 Yes Univers 0.4 mg 24 1-07 ity of hr capsule 00:00: [address] Branch tamsulosin 2-0 Yes Univers 0.4 mg 24 1-07 ity of hr capsule 00:00: [address] Branch tamsulosin 2022-0 Yes Univers 0.4 mg 24 1-07 ity of hr capsule 00:00: [place] [facility] tamsulosin 2022-0 Yes Univers 0.4 mg 24 1-07 ity of hr capsule 00:00: [facility] Branch metFORMIN 2022-0 Yes Univers 1,000 mg 1-05 ity of tablet 00:00: [place] [facility] metFORMIN 2022-0 Yes Univers 1,000 mg 1-05 ity of tablet 00:00: [place] [facility] metFORMIN 2022-0 Yes Univers 1,000 mg 1-05 ity of tablet 00:00: [place] [facility] metFORMIN 2022-0 Yes Univers 1,000 mg 1-05 ity of tablet 00:00: [place] [facility] metFORMIN 2022-0 Yes Univers 1,000 mg 1-05 ity of tablet 00:00: [place] [facility] metFORMIN 2022-0 Yes Univers 1,000 mg 1-05 ity of tablet 00:00: [place] [facility] metFORMIN 2022-0 Yes Univers 1,000 mg 1-05 ity of tablet 00:00: [place] [facility] metFORMIN 2022-0 Yes Univers 1,000 mg 1-05 ity of tablet 00:00: [place] [facility] metFORMIN 2022-0 Yes Univers 1,000 mg 1-05 ity of tablet 00:00: [place] [facility] metFORMIN 2022-0 Yes Univers 1,000 mg 1-05 ity of tablet 00:00: [place] [facility] nitroglycer 2022-0 Yes Univer s in 0.4 mg 1-04 ity of sublingual 00:00: [place] tablet [facility] Branch nitroglycer 2022-0 Yes Univer s in 0.4 mg 1-04 ity of sublingual 00:00: [place] tablet Medical [place] nitroglycer 2022-0 Yes Univer s in 0.4 mg 1-04 ity of sublingual 00:00: [place] tablet Medical Branch nitroglycer 2022-0 Yes Univer s in 0.4 mg 1-04 ity of sublingual 00:00: [place] tablet Medical Branch nitroglycer 2-0 Yes Univer s in 0.4 mg 1-04 ity of sublingual 00:00: [place] tablet [facility] Branch nitroglycer 2-0 Yes Univer s in 0.4 mg 1-04 ity of sublingual 00:00: [place] tablet 00 [facility] Branch nitroglycer Yes Univer s in 0.4 mg 1-04 ity of sublingual 00:00: [place] tablet 00 [facility] Branch nitroglycer Yes Univer s in 0.4 mg 1-04 ity of sublingual 00:00: [place] tablet 00 [facility] Branch nitroglycer Yes Univer s in 0.4 mg 1-04 ity of sublingual 00:00: [place] tablet 00 [facility] Branch nitroglycer Yes Univer s in 0.4 mg 1-04 ity of sublingual 00:00: [place] tablet 00 [facility] Branch fluticasone Yes 1{spray QD [address] [facility] propionate 8-10 } [facility]al [facility] (FLONASE) 13:35: route Medical 50 16 daily. Center mcg/actuati on nasal spray aspirin 325 Yes 325mg QD Take [address] MG tablet 8-10 mg by [facility] 13:35: mouth Medical 16 nightly . [place] magnesium Yes 500mg Q.5D Take [address] [facility] gluconate 8-10 mg by [facility] (MAGONATE) 13:35: mouth 2 Medi leta 27.5 mg 16 (two) Center magne- sium times (500 mg) daily. tablet amLODIPine Yes 5mg QD Take [address] [facility] [address] [facility] (NORVASC) 8-10 by mouth [facility] 2.5 MG 13:35: daily. Medical tablet 16 [place] metFORMIN Yes 1000mg Take 1,[address] [facility] (GLUCOPHAGE 8-10 mg by [facility] ) 1000 MG 13:35: mouth 2 Medic al tablet 16 (two) Center times daily with breakfast and dinner. losartan Yes 100mg QD Take [address] [facility] (COZAAR) 8-10 mg by [facility] 100 MG 13:35: mouth Medical tablet 16 daily. [place] levothyroxi Yes 100ug Take [address] ne 8-10 mcg by [facility] (SYNTHROID, 13:35: mouth Medic al LEVOTHROID) 16 Every Center 100 MCG morning on tablet an empty stomach. SITagliptin Yes 100mg QD Take [address] (JANUVIA) 8-10 mg by [facility] 100 MG 13:35: mouth Medical tablet 16 daily. [place] glimepiride Yes 4mg Q.5D Take 4 mg [...] mouth Medica l 24 hr 16 daily. [place] capsule finasteride Yes 5mg QD Take 5 [...] [facility] 13:35: mouth Medical 16 nightly . [place] magnesium Yes 500mg Q.5D Take [address] [facility] [address] gluconate 8-10 mg by [facility] (MAGONATE) 13:35: mouth 2 Medi leta 27.5 mg 16 (two) Center magne- sium times (500 mg) daily. tablet amLODIPine Yes 5mg QD Take [address] [facility] [address] [facility] (NORVASC) 8-10 by mouth [facility] 2.5 MG 13:35: daily. Medical tablet 16 [place] metFORMIN Yes 1000mg Take 1,[address] [facility] [...] mouth Medica l 24 hr 16 daily. [place] capsule finasteride Yes 5mg QD Take [address] (PROSCAR) 5 8-10 by mouth Luke [facility] mg tablet 13:35: nightly . Med ical 16 [place] fluticasone Yes 1{spray QD [address] [facility] propionate 8-10 } Nasal [facility] (FLONASE) 13:35: route Medical 50 16 daily. [place] mcg/actuati on nasal spray aspirin 325 Yes 325mg QD Take [address] MG tablet 8-10 mg by [facility] 13:35: mouth Medical 16 nightly . [place] magnesium Yes 500mg Q.5D Take [address] [facility] [address] gluconate 8-10 mg by [facility] (MAGONATE) 13:35: mouth 2 Medi leta 27.5 mg 16 (two) [place] magne- sium times (500 mg) daily. tablet amLODIPine Yes 5mg QD Take [address] [facility] [address] [facility] (NORVASC) 8-10 by mouth [facility] 2.5 MG 13:35: daily. Medical tablet 16 [place] metFORMIN Yes 1000mg Take 1,[address] [facility] (GLUCOPHAGE 8-10 mg by [facility] ) 1000 MG 13:35: mouth 2 Medic al tablet 16 (two) Center times daily with breakfast and dinner. losartan Yes 100mg QD Take [address] [facility] (COZAAR) 8-10 mg by [facility] 100 MG 13:35: mouth Medical tablet 16 daily. [place] levothyroxi Yes 100ug Take 100 [facility] [...] mouth Medica l 24 hr 16 daily. [place] capsule finasteride Yes 5mg QD Take 5 [...] MG 13:35: mouth Medical tablet 16 daily. [place] levothyroxi Yes 100ug Take [address] ne 8-10 mcg by [facility] (SYNTHROID, 13:35: mouth Medic al LEVOTHROID) 16 Every Center 100 MCG morning on tablet an empty stomach. SITagliptin Yes 100mg QD Take [address] (JANUVIA) 8-10 mg by [facility] 100 MG 13:35: mouth Medical tablet 16 daily. [place] glimepiride Yes 4mg Q.5D Take [address] (AMARYL) 4 8-10 by mouth 2 [facility] [facility] MG tablet 13:35: (two) Medical 16 times Center daily. simvastatin Yes 20mg QD Take [address] [facility] (ZOCOR) 20 8-10 by mouth [facility] MG tablet 13:35: nightly. Medi leta 16 [place] tamsulosin Yes .4mg QD Take 0.[address] [facility] (FLOMAX) 8-10 mg by [facility] 0.4 mg Cap 13:35: mouth Medica l 24 hr 16 daily. [place] capsule finasteride Yes 5mg QD Take [address] (PROSCAR) 5 8-10 by mouth Luke [facility] mg tablet 13:35: nightly . Med ical 16 [place] fluticasone Yes 1{spray QD [address] [facility] propionate 8-10 } Nasal [facility] (FLONASE) 13:35: route Medical 50 16 daily. [place] mcg/actuati on nasal spray aspirin 325 Yes 325mg QD Take [address] MG tablet 8-10 mg by [facility] 13:35: mouth Medical 16 nightly . [place] magnesium Yes 500mg Q.5D Take [address] [facility] gluconate 8-10 mg by [facility] (MAGONATE) 13:35: mouth 2 Medi leta 27.5 mg 16 (two) [place] magne- sium times (500 mg) daily. tablet [...] MG 13:35: mouth Medical tablet 16 daily. [place] levothyroxi Yes 100ug Take [address] ne 8-10 mcg by [facility] (SYNTHROID, 13:35: mouth Medic al LEVOTHROID) 16 Every Center 100 MCG morning on tablet an empty stomach. SITagliptin Yes 100mg QD Take [address] (JANUVIA) 8-10 mg by [facility] 100 MG 13:35: mouth Medical tablet 16 daily. [place] glimepiride Yes 4mg Q.5D Take [address] (AMARYL) 4 8-10 by mouth 2 [place] es MG tablet 13:35: (two) Medical 16 times Center daily. simvastatin Yes 20mg QD Take [address] [facility] (ZOCOR) 20 8-10 by mouth [facility] MG tablet 13:35: nightly. Medi leta 16 [place] tamsulosin Yes .4mg QD Take 0.[address] [facility] (FLOMAX) 8-10 mg by [facility] 0.4 mg Cap 13:35: mouth Medica l 24 hr 16 daily. [place] capsule finasteride Yes 5mg QD Take [address] (PROSCAR) 5 8-10 by mouth Luke [facility] mg tablet 13:35: nightly . Med ical 16 [place] fluticasone Yes 1{spray QD [address] [facility] propionate 8-10 } Nasal [facility] (FLONASE) 13:35: route Medical 50 16 daily. [place] mcg/actuati on nasal spray aspirin 325 Yes 325mg QD Take [address] MG tablet 8-10 mg by [facility] 13:35: mouth Medical 16 nightly . [place] magnesium Yes 500mg Q.5D Take 500 [facility] [...] MG 13:35: mouth Medical tablet 16 daily. [place] levothyroxi Yes 100ug Take [address] ne 8-10 mcg by [facility] (SYNTHROID, 13:35: mouth Medic al LEVOTHROID) 16 Every Center 100 MCG morning on tablet an empty stomach. SITagliptin Yes 100mg QD Take [address] (JANUVIA) 8-10 mg by [facility] 100 MG 13:35: mouth Medical tablet 16 daily. [place] glimepiride Yes 4mg Q.5D Take [address] (AMARYL) 4 8-10 by mouth 2 [place] MG tablet 13:35: (two) Medical 16 times Center daily. simvastatin Yes 20mg QD Take [address] [facility] (ZOCOR) 20 8-10 by mouth [facility] MG tablet 13:35: nightly. Medi leta 16 [place] tamsulosin Yes .4mg QD Take 0.[address] [facility] (FLOMAX) 8-10 mg by [facility] 0.4 mg Cap 13:35: mouth Medica l 24 hr 16 daily. [place] capsule finasteride Yes 5mg QD Take [address] (PROSCAR) 5 8-10 by mouth [facility] mg tablet 13:35: nightly . Med ical 16 [place] fluticasone Yes 1{spray QD [address] [facility] propionate 8-10 } Nasal [facility] (FLONASE) 13:35: route Medical 50 16 daily. [place] mcg/actuati on nasal spray aspirin 325 0 [...] 2.5 MG 13:35: daily. Medical tablet 16 [place] metFORMIN Yes 1000mg Take 1,[address] [facility] (GLUCOPHAGE 8-10 mg by [facility] ) 1000 MG 13:35: mouth 2 Medic al tablet 16 (two) Center times daily with breakfast and dinner. losartan Yes 100mg QD Take [address] [facility] (COZAAR) 8-10 mg by [facility] 100 MG 13:35: mouth Medical tablet 16 daily. [place] levothyroxi Yes 100ug Take [address] ne 8-10 mcg by [facility] (SYNTHROID, 13:35: mouth Medic al LEVOTHROID) 16 Every Center 100 MCG morning on tablet an empty stomach. SITagliptin Yes 100mg QD Take [address] (JANUVIA) 8-10 mg by [facility] 100 MG 13:35: mouth Medical tablet 16 daily. [place] glimepiride Yes 4mg Q.5D Take [address] (AMARYL) 4 8-10 by mouth 2 [place] MG tablet 13:35: (two) Medical 16 times Center daily. simvastatin Yes 20mg QD Take [address] [facility] (ZOCOR) 20 8-10 by mouth [facility] MG tablet 13:35: nightly. Medi leta 16 [place] tamsulosin Yes .4mg QD Take 0.[address] [facility] (FLOMAX) 8-10 mg by [facility] 0.4 mg Cap 13:35: mouth Medica l 24 hr 16 daily. [place] capsule finasteride Yes 5mg QD Take 5 [...] 2.5 MG 13:35: daily. Medical tablet 16 [place] metFORMIN Yes 1000mg Take 1,[address] [facility] (GLUCOPHAGE 8-10 mg by [facility] ) 1000 MG 13:35: mouth 2 Medic al tablet 16 (two) Center times daily with breakfast and dinner. losartan Yes 100mg QD Take [address] [facility] (COZAAR) 8-10 mg by [facility] 100 MG 13:35: mouth Medical tablet 16 daily. [place] levothyroxi Yes 100ug Take [address] ne 8-10 mcg by [facility] (SYNTHROID, 13:35: mouth Medic al LEVOTHROID) 16 Every Center 100 MCG morning on tablet an empty stomach. SITagliptin Yes 100mg QD Take [address] (JANUVIA) 8-10 mg by [facility] 100 MG 13:35: mouth Medical tablet 16 daily. [place] glimepiride Yes 4mg Q.5D Take [address] (AMARYL) 4 8-10 by mouth 2 [place] MG tablet 13:35: (two) Medical 16 times Center daily. simvastatin Yes 20mg QD Take [address] [facility] (ZOCOR) 20 8-10 by mouth [facility] MG tablet 13:35: nightly. Medi leta 16 [place] tamsulosin Yes .4mg QD Take 0.[address] [facility] (FLOMAX) 8-10 mg by [facility] 0.4 mg Cap 13:35: mouth Medica l 24 hr 16 daily. [place] capsule finasteride Yes 5mg QD Take 5 [...] 2.5 MG 13:35: daily. Medical tablet 16 [place] metFORMIN Yes 1000mg Take 1,[address] [facility] (GLUCOPHAGE 8-10 mg by [facility] ) 1000 MG 13:35: mouth 2 Medic al tablet 16 (two) Center times daily with breakfast and dinner. losartan Yes 100mg QD Take [address] [facility] (COZAAR) 8-10 mg by [facility] 100 MG 13:35: mouth Medical tablet 16 daily. [place] levothyroxi Yes 100ug Take 100 [facility] [...] [facility] 13:35: mouth Medical 16 nightly . [place] magnesium Yes 500mg Q.5D Take [address] [facility] [address] gluconate 8-10 mg by [facility] (MAGONATE) 13:35: mouth 2 Medi leta 27.5 mg 16 (two) [place] magne- sium times (500 mg) daily. tablet amLODIPine Yes 5mg QD Take [address] [facility] [address] [facility] (NORVASC) 8-10 by mouth [facility] 2.5 MG 13:35: daily. Medical tablet 16 [place] metFORMIN Yes 1000mg Take 1,[address] [facility] (GLUCOPHAGE 8-10 mg by [facility] ) 1000 MG 13:35: mouth 2 Medic al tablet 16 (two) Center times daily with breakfast and dinner. losartan Yes 100mg QD Take [address] [facility] (COZAAR) 8-10 mg by [facility] 100 MG 13:35: mouth Medical tablet 16 daily. [place] levothyroxi Yes 100ug Take [address] ne 8-10 mcg by [facility] (SYNTHROID, 13:35: mouth Medic al LEVOTHROID) 16 Every Center 100 MCG morning on tablet an empty stomach. SITagliptin Yes 100mg QD Take [address] (JANUVIA) 8-10 mg by [facility] 100 MG 13:35: mouth Medical tablet 16 daily. [place] glimepiride Yes 4mg Q.5D Take 4 mg [...] mouth Medica l 24 hr 16 daily. [place] capsule finasteride Yes 5mg QD Take [address] (PROSCAR) 5 8-10 by mouth [facility] mg tablet 13:35: nightly . Med ical 16 Center fluticasone Yes 1{spray QD [address] [facility] propionate 8-10 } Nasal [facility] (FLONASE) 13:35: route Medical 50 16 daily. [place] mcg/actuati on nasal spray aspirin 325 Yes 325mg QD Take [address] MG tablet 8-10 mg by [facility] 13:35: mouth Medical 16 nightly . [place] magnesium Yes 500mg Q.5D Take [address] [facility] [address] gluconate 8-10 mg by [facility] (MAGONATE) 13:35: mouth 2 Medi leta 27.5 mg 16 (two) Center magne- sium times (500 mg) daily. tablet amLODIPine Yes 5mg QD Take [address] [facility] [address] [facility] (NORVASC) 8-10 by mouth [facility] 2.5 MG 13:35: daily. Medical tablet 16 [place] metFORMIN Yes 1000mg Take 1,[address] [facility] (GLUCOPHAGE 8-10 mg by [facility] ) 1000 MG 13:35: mouth 2 Medic al tablet 16 (two) Center times daily with breakfast and dinner. losartan Yes 100mg QD Take [address] [facility] (COZAAR) 8-10 mg by [facility] 100 MG 13:35: mouth Medical tablet 16 daily. [place] levothyroxi Yes 100ug Take [address] ne 8-10 mcg by [facility] (SYNTHROID, 13:35: mouth Medic al LEVOTHROID) 16 Every Center 100 MCG morning on tablet an empty stomach. SITagliptin Yes 100mg QD Take [address] (JANUVIA) 8-10 mg by [facility] 100 MG 13:35: mouth Medical tablet 16 daily. [place] glimepiride Yes 4mg Q.5D Take [address] (AMARYL) 4 8-10 by mouth 2 [place] MG tablet 13:35: (two) Medical 16 times Center daily. simvastatin Yes 20mg QD Take [address] [facility] (ZOCOR) 20 8-10 by mouth [facility] MG tablet 13:35: nightly. Medi leta 16 [place] tamsulosin Yes .4mg QD Take 0.[address] [facility] (FLOMAX) 8-10 mg by [facility] 0.4 mg Cap 13:35: mouth Medica l 24 hr 16 daily. [place] capsule finasteride Yes 5mg QD Take [address] (PROSCAR) 5 8-10 by mouth [facility] mg tablet 13:35: nightly . Med ical 16 [place] fluticasone Yes 1{spray QD [address] [facility] propionate 8-10 } Nasal [facility] (FLONASE) 13:35: route Medical 50 16 daily. [place] mcg/actuati on nasal spray aspirin 325 Yes 325mg QD Take [address] MG tablet 8-10 mg by [facility] 13:35: mouth Medical 16 nightly . [place] magnesium Yes 500mg Q.5D Take [address] [facility] [address] gluconate 8-10 mg by [facility] (MAGONATE) 13:35: mouth 2 Medi leta 27.5 mg 16 (two) Center magne- sium times (500 mg) daily. tablet amLODIPine Yes 5mg QD Take [address] [facility] [address] [facility] (NORVASC) 8-10 by mouth [facility] 2.5 MG 13:35: daily. Medical tablet 16 [place] metFORMIN Yes 1000mg Take 1,[address] [facility] (GLUCOPHAGE 8-10 mg by [facility] ) 1000 MG 13:35: mouth 2 Medic al tablet 16 (two) Center times daily with breakfast and dinner. losartan Yes 100mg QD Take [address] [facility] (COZAAR) 8-10 mg by [facility] 100 MG 13:35: mouth Medical tablet 16 daily. [place] levothyroxi Yes 100ug Take [address] ne 8-10 mcg by [facility] (SYNTHROID, 13:35: mouth Medic al LEVOTHROID) 16 Every Center 100 MCG morning on tablet an empty stomach. SITagliptin Yes 100mg QD Take [address] (JANUVIA) 8-10 mg by [facility] 100 MG 13:35: mouth Medical tablet 16 daily. [place] glimepiride Yes 4mg Q.5D Take [address] (AMARYL) 4 8-10 by mouth 2 [place] MG tablet 13:35: (two) Medical 16 times Center daily. simvastatin Yes 20mg QD Take [address] [facility] (ZOCOR) 20 8-10 by mouth [facility] MG tablet 13:35: nightly. Medi leta 16 [place] tamsulosin Yes .4mg QD Take 0.[address] [facility] (FLOMAX) 8-10 mg by [facility] 0.4 mg Cap 13:35: mouth Medica l 24 hr 16 daily. [place] capsule finasteride Yes 5mg QD Take [address] (PROSCAR) 5 8-10 by mouth [facility] mg tablet 13:35: nightly . Med ical 16 [place] fluticasone Yes 1{spray QD [address] [facility] propionate 8-10 } Nasal [facility] (FLONASE) 13:35: route Medical 50 16 daily. [place] mcg/actuati on nasal spray aspirin 325 Yes 325mg QD Take [address] MG tablet 8-10 mg by [facility] 13:35: mouth Medical 16 nightly . [place] magnesium Yes 500mg Q.5D Take [address] [address] gluconate 8-10 mg by [facility] (MAGONATE) 13:35: mouth 2 Medi leta 27.5 mg 16 (two) [place] magne- sium times (500 mg) daily. tablet amLODIPine Yes 5mg QD Take [address] [facility] [address] [facility] (NORVASC) 8-10 by mouth [facility] 2.5 MG 13:35: daily. Medical tablet 16 [place] metFORMIN Yes 1000mg Take 1,[address] [facility] (GLUCOPHAGE 8-10 mg by [facility] ) 1000 MG 13:35: mouth 2 Medic al tablet 16 (two) Center times daily with breakfast and dinner. losartan Yes 100mg QD Take [address] [facility] (COZAAR) 8-10 mg by [facility] 100 MG 13:35: mouth Medical tablet 16 daily. [place] levothyroxi Yes 100ug Take 100 [facility] [...] mouth Medica l 24 hr 16 daily. [place] capsule finasteride Yes 5mg QD Take 5 [...] [facility] 13:35: mouth Medical 16 nightly . [place] magnesium Yes 500mg Q.5D Take 500 [facility] [...] MG tablet 13:35: nightly. Medi leta 16 [place] tamsulosin Yes .4mg QD Take 0.[address] [facility] (FLOMAX) 8-10 mg by [facility] 0.4 mg Cap 13:35: mouth Medica l 24 hr 16 daily. [place] capsule finasteride Yes 5mg QD Take [address] (PROSCAR) 5 8-10 by mouth [facility] mg tablet 13:35: nightly . Med ical 16 [place] fluticasone Yes 1{spray QD [address] [facility] propionate 8-10 } [facility]al [facility] (FLONASE) 13:35: route Medical 50 16 daily. Center mcg/actuati on nasal spray aspirin 325 Yes 325mg QD Take [address] MG tablet 8-10 mg by [facility] 13:35: mouth Medical 16 nightly . [place] magnesium Yes 500mg Q.5D Take 500 [facility] [...] MG 13:35: mouth Medical tablet 16 daily. [place] glimepiride Yes 4mg Q.5D Take [address] (AMARYL) 4 8-10 by mouth 2 [place] es MG tablet 13:35: (two) Medical 16 times Center daily. simvastatin Yes 20mg QD Take [address] [facility] (ZOCOR) 20 8-10 by mouth [facility] MG tablet 13:35: nightly. Medi leta 16 [place] tamsulosin Yes .4mg QD Take 0.[address] [facility] (FLOMAX) 8-10 mg by [facility] 0.4 mg Cap 13:35: mouth Medica l 24 hr 16 daily. [place] capsule finasteride Yes 5mg QD Take [address] (PROSCAR) 5 8-10 by mouth [facility] mg tablet 13:35: nightly . Med ical 16 [place] isosorbide 2020- No 60mg QD Take [address] [facility] mononitrate 6-30 08-10 tablet (60 [facility] (IMDUR) 60 00:00: 00:00 mg total) M edical MG 24 hr 00 :00 by mouth Center tablet daily for 90 days. diltiazem 2020- No 360mg QD Take [address] [facility] [address] [facility] (CARDIZEM 6-29 06-29 mg by [facility] [place]) 180 mg 08:41: 00:00 mouth Medic al 24 hr 09 :00 nightly. Center tablet amLODIPine 2020- No 2.5mg QD Take 2.[address] (NORVASC) 12-09-29 mg by [facility] 2.5 MG 08:40: 00:00 mouth Medical tablet 25 :00 daily . [place] diltiazem 2020- No 180mg QD Take 1 [...] 50mg Take [address] [facility] (ULTRAM) 50 12-09-09 tablet (50 [facility] mg tablet 00:00: 23:59 mg total) Me dical 00 :00 by mouth Center every 12 (twelve) hours as needed for up to 10 days. Max Daily Amount: 100 mg amLODIPine 2020- No 5mg QD Take [address] (NORVASC) 12-08- by [facility] 2.5 MG 18:33: 00:00 daily. Medical tablet 16 :00 [place] losartan-hy Yes 1{tbl} Take 1 Un [facility] drochloroth 4-10 tablet by ity of iazide 10:29: mouth [place] (HYZAAR) 45 daily. 100-25 mg Anderso per tablet [facility] multivitami Yes 1{tbl} Take 1 Un phong n 4-10 tablet by ity of (multivitam 10:29: mouth [place] in) tab 45 daily. tablet Shad [facility] loratadine Yes 10mg Take 10 mg U nivers (CLARITIN) 4-10 by mouth ity o f 10 mg 10:29: as needed [place] tablet 45 for MD allergies. [facility] Yes 500mg Take 500 Uni vers oxide 500 4-10 mg by ity of mg tablet 10:29: mouth [place] 45 twice MD daily[address] [facility] cyanocobala Yes 2500ug Take 2,500 Univers min 4-10 mcg by ity of (vitamin 10:29: mouth [place] B-12) 1000 45 daily. MD mcg tablet [facility]-hy Yes 1{tbl} Take 1 Un phong drochloroth 4-10 tablet by ity of iazide 10:29: mouth [place] (HYZAAR) 45 daily. MD 100-25 mg Anderso per tablet [facility] multivitami Yes 1{tbl} Take 1 Un phong n 4-10 tablet by ity of (multivitam 10:29: mouth [place] in) tab 45 daily. MD tablet [facility] loratadine Yes 10mg Take 10 mg U nivers (CLARITIN) 4-10 by mouth ity o f 10 mg 10:29: as needed [place] tablet 45 for MD allergies. [facility] magnesium Yes 500mg Take 500 Uni vers oxide 500 4-10 mg by ity of mg tablet 10:29: mouth [place] 45 twice MD daily. [facility] cyanocobala Yes 2500ug Take 2,500 Univers min 4-10 mcg by ity of (vitamin 10:29: mouth [place] B-12) 1000 45 daily. [facility] Take 1 Un phong drochloroth 4-10 tablet by ity of iazide 10:29: mouth [place] (HYZAAR) 45 daily. MD 100-25 mg Anderso per tablet [facility] multivitami Yes 1{tbl} Take 1 Un phong n 4-10 tablet by ity of (multivitam 10:29: mouth [place] in) tab 45 daily. MD tablet [facility] loratadine Yes 10mg Take 10 mg U nivers (CLARITIN) 4-10 by mouth ity o f 10 mg 10:29: as needed [place] tablet 45 for MD allergies. [facility] magnesium Yes 500mg Take 500 Uni vers oxide 500 4-10 mg by ity of mg tablet 10:29: mouth [place] 45 twice MD daily. [facility] cyanocobala Yes 2500ug Take 2,500 Univers min 4-10 mcg by ity of (vitamin 10:29: mouth [place] B-12) 1000 45 daily. mcg tablet [facility] losartan-hy Yes 1{tbl} Take 1 Un phong drochloroth 4-10 tablet by ity of iazide 10:29: mouth [place] (HYZAAR) 45 daily. 100-25 mg Anderso per tablet [facility] multivitami Yes 1{tbl} Take 1 Un phong n 4-10 tablet by ity of (multivitam 10:29: mouth [place] in) tab 45 daily. tablet [facility] loratadine Yes 10mg Take 10 mg U nivers (CLARITIN) 4-10 by mouth ity o f 10 mg 10:29: as needed [place] tablet 45 for MD allergies. [facility] magnesium Yes 500mg Take 500 Uni vers oxide 500 4-10 mg by ity of mg tablet 10:29: mouth [place] 45 twice MD daily. [facility] cyanocobala Yes 2500ug Take 2,500 Univers min 4-10 mcg by ity of (vitamin 10:29: mouth [place] B-12) 1000 45 daily. mcg tablet [facility] silodosin Yes 1{capsu Take 1 Uni vers (RAPAFLO) 8 2-24 le} capsule by it y of mg capsule 00:00: mouth [place] 00 daily. MD Shad truong [facility] silodosin Yes 1{capsu Take 1 Uni vers (RAPAFLO) 8 2-24 le} capsule by it y of mg capsule 00:00: mouth [place] 00 daily. MD Kulkarni [facility] silodosin Yes 1{capsu Take 1 Uni vers (RAPAFLO) 8 2-24 le} capsule by it y of mg capsule 00:00: mouth [place] 00 daily. MD Kulkarni [facility] silodosin Yes 1{capsu Take 1 Uni vers (RAPAFLO) 8 2-24 le} capsule by it y of mg capsule 00:00: mouth [place] 00 daily. MD Shad truong [facility] amLODIPine Yes 1{tbl} Take 1 Uni vers (NORVASC) 2-11 tablet by ity o f 2.5 mg 00:00: mouth [place] tablet 00 daily. MD Shad truong [facility] dutasteride Yes 1{capsu Take 1 U nivers (AVODART) 2-11 le} capsule by ity of 0.5 mg 00:00: mouth [place] capsule 00 daily. MD Shad truong [facility] amLODIPine Yes 1{tbl} Take 1 Uni vers (NORVASC) 2-11 tablet by ity o f 2.5 mg 00:00: mouth [place] tablet 00 daily. MD Shad truong [facility] dutasteride Yes 1{capsu Take 1 U nivers (AVODART) 2-11 le} capsule by ity of 0.5 mg 00:00: mouth [place] capsule 00 daily. MD Shad truong [facility] amLODIPine Yes 1{tbl} Take 1 Uni vers (NORVASC) 2-11 tablet by ity o f 2.5 mg 00:00: mouth [place] tablet 00 daily. MD Shad truong [facility] dutasteride Yes 1{capsu Take 1 U nivers (AVODART) 2-11 le} capsule by ity of 0.5 mg 00:00: mouth [place] capsule 00 daily. MD Shad truong [facility] amLODIPine Yes 1{tbl} Take 1 Uni vers (NORVASC) 2-11 tablet by ity o f 2.5 mg 00:00: mouth [place] tablet 00 daily. MD Shad truong [facility] dutasteride Yes 1{capsu Take 1 U nivers (AVODART) 2-11 le} capsule by ity of 0.5 mg 00:00: mouth [place] capsule 00 daily. MD Shad truong [facility] diltiazem Yes Univers (CARDIZEM 3-06 ity of [place]) 360 mg 00:00: [place] 24 hr 00 MD rosendo truong [facility] diltiazem Yes Univers (CARDIZEM 3-06 [place]y of [place]) 360 mg 00:00: [place] 24 hr 00 MD rosendo truong [facility] diltiazem Yes Univers (CARDIZEM 3-06 [place]y of [place]) 360 mg 00:00: [place] 24 hr 00 MD tablet [facility] diltiazem 2018-0 Yes Univers (CARDIZEM 3-06 ity of [place]) 360 mg 00:00: [place] 24 hr 00 MD tablet [facility] finasteride 2015-06 Yes 1{tbl} Take 1 Un phong (PROSCAR) 5 1-09 tablet by ity of mg tablet 00:00: mouth [place] 00 every MD evening. [facility] finasteride 2015-06 Yes 1{tbl} Take 1 Un phong (PROSCAR) 5 1-09 tablet by ity of mg tablet 00:00: mouth [place] 00 every MD evening. [facility] finasteride 2015-06 Yes 1{tbl} Take 1 Un phong (PROSCAR) 5 1-09 tablet by ity of mg tablet 00:00: mouth [place] 00 every MD evening. [facility] finasteride 2015-06 Yes 1{tbl} Take 1 Un phong (PROSCAR) 5 1-09 tablet by ity of mg tablet 00:00: mouth [place] 00 every MD evening. [facility] oxybutynin 2015-06 Yes 1{tbl} Take 1 Uni vers (DITROPAN) 1-05 tablet by ity of 5 mg tablet 00:00: mouth [place] 00 every MD evening. [facility] oxybutynin 2015-06 Yes 1{tbl} Take 1 Uni vers (DITROPAN) 1-05 tablet by ity of 5 mg tablet 00:00: mouth [place] 00 every MD evening. [facility] oxybutynin 2015-06 Yes 1{tbl} Take 1 Uni vers (DITROPAN) 1-05 tablet by ity of 5 mg tablet 00:00: mouth [place] 00 every MD evening. [facility] oxybutynin 2015-06 Yes 1{tbl} Take 1 Uni vers (DITROPAN) 1-05 tablet by ity of 5 mg tablet 00:00: mouth [place] 00 every MD evening. [facility] tamsulosin 2015-06 Yes 1{capsu Take 1 Un phong (FLOMAX) 0-30 le} capsule by ity o f 0.4 mg 24 00:00: [place] capsule 00 bedtime. MD [facility] tamsulosin 2015-06 Yes 1{capsu Take 1 Un phong (FLOMAX) 0-30 le} capsule by ity o f 0.4 mg 24 00:00: [place] hr capsule 00 bedtime. MD Shad truong [facility] tamsulosin 2015-06 Yes 1{capsu Take 1 Un phong (FLOMAX) 0-30 le} capsule by ity o f 0.4 mg 24 00:00: [place] capsule 00 bedtime. MD Shad truong [facility] tamsulosin 2015-06 Yes 1{capsu Take 1 Un phong (FLOMAX) 0-30 le} capsule by ity o f 0.4 mg 24 00:00: mouth [place] hr capsule 00 bedtime. MD Shad truong [facility] simvastatin 2015-06 Yes 1{tbl} Take 1 Un phong (ZOCOR) 20 0-21 tablet by ity of mg tablet 00:00: mouth [place] 00 daily. MD Shad truong [facility] simvastatin 2015-06 Yes 1{tbl} Take 1 Un phong (ZOCOR) 20 0-21 tablet by ity of mg tablet 00:00: mouth [place] 00 daily. MD Shad truong [facility] simvastatin 2015-06 Yes 1{tbl} Take 1 Un phong (ZOCOR) 20 0-21 tablet by ity of mg tablet 00:00: mouth [place] 00 daily. MD Shad truong [facility] simvastatin 2015-06 Yes 1{tbl} Take 1 Un phong (ZOCOR) 20 0-21 tablet by ity of mg tablet 00:00: mouth [place] 00 daily. MD Shad truong [facility] levothyroxi 2015-06 Yes 1{tbl} Take 1 Un phong ne 0-13 tablet by ity of (SYNTHROID, 00:00: mouth [place] LEVOTHROID) 00 daily. 50 mcg Shad tablet [facility] levothyroxi 2015-06 Yes 1{tbl} Take 1 Un phong ne 0-13 tablet by ity of (SYNTHROID, 00:00: mouth [place] LEVOTHROID) 00 daily. 50 mcg Shad tablet [facility] levothyroxi 2015-06 Yes 1{tbl} Take 1 Un phong ne 0-13 tablet by ity of (SYNTHROID, 00:00: mouth [place] LEVOTHROID) 00 daily. 50 mcg Anderso tablet [facility] levothyroxi 2015-06 Yes 1{tbl} Take 1 Un phong ne 0-13 tablet by ity of (SYNTHROID, 00:00: mouth [place] LEVOTHROID) 00 daily. 50 mcg Anderso tablet [facility] glimepiride Yes 1{tbl} Take 1 Un phong (AMARYL) 4 9-28 tablet by ity of mg tablet 00:00: mouth [place] 00 twice MD daily. [facility] glimepiride Yes 1{tbl} Take 1 Un phong (AMARYL) 4 9-28 tablet by ity of mg tablet 00:00: mouth [place] 00 twice MD daily. [facility] glimepiride Yes 1{tbl} Take 1 Un phong (AMARYL) 4 9-28 tablet by ity of mg tablet 00:00: mouth [place] 00 twice MD daily. [facility] glimepiride Yes 1{tbl} Take 1 Un phong (AMARYL) 4 9-28 tablet by ity of mg tablet 00:00: mouth [place] 00 twice MD daily. [place] [id number] Yes 1{tbl} Take 1 Uni vers mg tablet 9-20 tablet by ity o f 00:00: mouth [place] 00 daily. [place] [id number] Yes 1{tbl} Take 1 Uni vers mg tablet 9-20 tablet by ity o f 00:00: mouth [place] 00 daily. [facility] [place] [id number] Yes 1{tbl} Take 1 Uni vers mg tablet 9-20 tablet by ity o f 00:00: mouth [place] 00 daily. [place] [id number] Yes 1{tbl} Take 1 Uni vers mg tablet 9-20 tablet by ity o f 00:00: mouth [place] 00 daily. [facility] metFORMIN Yes 1000mg 1,000 mg 2 Univers (GLUCOPHAGE 5-24 (two) ity of ) 1000 mg 00:00: times a [place] tablet 00 day with MD bro. [facility] metFORMIN Yes 1000mg 1,000 mg 2 Univers (GLUCOPHAGE 5-24 (two) ity of ) 1000 mg 00:00: times a [place] tablet 00 day with MD meals. [facility] metFORMIN 0 Yes 1000mg 1,000 mg 2 Univers (GLUCOPHAGE 5-24 (two) ity of ) 1000 mg 00:00: times a [place] tablet 00 day with MD meals. [facility] metFORMIN 0 Yes 1000mg 1,000 mg 2 Univers (GLUCOPHAGE 5-24 (two) ity of ) 1000 mg 00:00: times a [place] tablet 00 day with MD meals. [facility] finasteride finasteride No finasterid [facility] 5 mg tablet 5 mg tablet e 5 mg Family one at one at tablet one Pract ic night night at night e furosemide furosemide No furosemide [facility] 40 mg 40 mg 40 mg Family tablet Take tablet Take tablet Practic 1 tablet 1 tablet Take 1 e every day every day tablet by oral by oral every day route. route. by oral route. Januvia 100 Januvia 100 No [address] [facility] mg tablet mg tablet 100 mg Fam tu Take 1 Take 1 tablet Practic tablet tablet Take 1 e every day every day tablet by oral by oral every day route for route for by oral 90 days. 90 days. route for 90 days. levothyroxi levothyroxi No levothyrox [facility] ne 100 mcg ne 100 mcg ine [...] for 90 days. simvastatin simvastatin No simvastati [facility] 20 mg 20 mg n 20 mg Family tablet one tablet one tablet one Practic at bedtime at bedtime at bedtime e tamsulosin tamsulosin No tamsulosin [facility] 0.4 mg 0.4 mg 0.4 mg Family capsule capsule capsule Take 1 Take 1 Take 1 e capsule capsule capsule twice a day twice a day twice a by oral by oral day by route. route. oral route. warfarin 4 warfarin 4 No warfarin 4 [facility] mg tablet mg tablet mg tablet Family tuesday Practi c e tuesday and tuesday and tuesday and tuesday bedtime bedtime bedtime warfarin 5 warfarin 5 No warfarin 5 [facility] mg tablet mg tablet mg tablet [facility] tuesday Practic tuesday e and tuesday and tuesday and tuesday one at one at one at bedtime bedtime bedtime Jardiance Jardiance No Jardiance [place] 25 mg 25 mg 25 mg [facility] tablet tablet tablet U[facility] levothyroxi levothyroxi No levothyrox [place] ne 88 mcg ne 88 mcg ine 88 mcg [facility] tablet tablet tablet Urology losartan losartan No losartan Juan J ston 100 mg 100 mg 100 mg [facility] tablet tablet tablet U[facility] metformin metformin No metformin [place] 1,000 mg 1,000 mg 1,000 mg Met ro tablet tablet tablet Urology metoprolol metoprolol No 1 BID metoprolol [place] tartrate 50 tartrate 50 tartrate [facility] mg [...] Urol ogy ointment nitroglycer nitroglycer No nitroglyce [place] in 0.4 mg in 0.4 mg rin [...] for 10 days. simvastatin simvastatin No simvastati [place] 20 mg 20 mg n 20 mg [facility] tablet tablet tablet U[facility] tamsulosin tamsulosin No tamsulosin [place] 0.4 mg 0.4 mg 0.4 mg [facility] [...] tablet tablet Urology amiodarone amiodarone No amiodarone [place] 200 mg 200 mg 200 mg [facility] tablet tablet tablet Urology cefdinir cefdinir No cefdinir Juan J ston 300 mg 300 mg 300 mg [facility] capsule capsule capsule Urolog y clopidogrel clopidogrel No clopidogre [place] 75 mg 75 mg l 75 mg [facility] tablet tablet tablet Urology famotidine famotidine No 1 BID famotidine [place] 20 mg 20 mg 20 mg [facility] tablet Take tablet Take tablet Urology 1 tablet 1 tablet Take 1 twice a day twice a day tablet by oral by oral twice a route. route. day by oral route. finasteride finasteride No finasterid [place] 5 mg tablet 5 mg tablet e 5 mg [facility] TAKE ONE TAKE ONE tablet Urolo gy TABLET BY TABLET BY TAKE ONE MOUTH DAILY MOUTH DAILY TABLET BY MOUTH DAILY furosemide furosemide No furosemide [place] 40 mg 40 mg 40 mg [facility] tablet tablet tablet Urology imiquimod 5 imiquimod 5 No imiquimod [place] % topical % topical 5 % [facility] cream cream topical Urology packet packet cream packet isosorbide isosorbide No isosorbide [place] mononitrate mononitrate mononitrat [facility] ER 60 mg ER 60 mg e ER 60 mg U rology tablet,exte tablet,exte tablet,ext nded nded ended release 24 release 24 release 24 hr hr hr Januvia 100 Januvia 100 No Januvia [place] mg tablet mg tablet 100 mg Met ro tablet Urology Jardiance Jardiance No Jardiance [place] 25 mg 25 mg 25 mg [facility] tablet tablet tablet Urology levothyroxi levothyroxi No levothyrox [place] ne 88 mcg ne 88 mcg ine 88 mcg [facility] tablet tablet tablet Urology losartan losartan No losartan Juan J ston 100 mg 100 mg 100 mg [facility] tablet tablet tablet Urology metformin metformin No metformin [place] 1,000 mg 1,000 mg 1,000 mg Met ro tablet tablet tablet Urology metoprolol metoprolol No 1 BID metoprolol [place] tartrate 50 tartrate 50 tartrate [facility] mg [...] Urol ogy ointment nitroglycer nitroglycer No nitroglyce [place] in 0.4 mg in 0.4 mg rin [...] for 10 days. simvastatin simvastatin No simvastati [place] 20 mg 20 mg n 20 mg [facility] tablet tablet tablet Urology tamsulosin tamsulosin No tamsulosin [place] 0.4 mg 0.4 mg 0.4 mg [facility] [...] tablet tablet Urology amiodarone amiodarone No amiodarone [place] 200 mg 200 mg 200 mg [facility] tablet tablet tablet Urology amlodipine amlodipine No amlodipine [place] 2.5 mg 2.5 mg 2.5 mg [facility] tablet tablet tablet Urology clopidogrel clopidogrel No clopidogre [place] 75 mg 75 mg l 75 mg [facility] tablet tablet tablet Urology famotidine famotidine No 1 BID famotidine [place] 20 mg 20 mg 20 mg [facility] tablet Take tablet Take tablet Urology 1 tablet 1 tablet Take 1 twice a day twice a day tablet by oral by oral twice a route. route. day by oral route. finasteride finasteride No finasterid [place] 5 mg tablet 5 mg tablet e 5 mg [facility] TAKE ONE TAKE ONE tablet Urolo gy TABLET BY TABLET BY TAKE ONE MOUTH DAILY MOUTH DAILY TABLET BY MOUTH DAILY furosemide furosemide No furosemide [place] 40 mg 40 mg 40 mg [facility] tablet tablet tablet Urology imiquimod 5 imiquimod 5 No imiquimod [place] % topical % topical 5 % [facility] cream cream topical Urology packet packet cream packet isosorbide isosorbide No isosorbide [place] mononitrate mononitrate mononitrat [facility] ER 60 mg ER 60 mg e ER 60 mg U rology tablet,exte tablet,exte tablet,ext nded nded ended release 24 release 24 release 24 hr hr hr Jardiance Jardiance No Jardiance [place] 25 mg 25 mg 25 mg [facility] tablet tablet tablet Urology levothyroxi levothyroxi No levothyrox [place] ne 88 mcg ne 88 mcg ine 88 mcg [facility] tablet tablet tablet Urology losartan losartan No losartan [place] J ston 100 mg 100 mg 100 mg [facility] tablet tablet tablet Urology metformin metformin No metformin [place] 1,000 mg 1,000 mg 1,000 mg Met ro tablet tablet tablet Urology metoprolol metoprolol No metoprolol [place] tartrate 25 tartrate 25 tartrate [facility] mg tablet mg tablet 25 mg Urol ogy tablet mupirocin 2 mupirocin 2 No mupirocin [place] % topical % topical 2 % [facility] ointment ointment topical Urol ogy ointment simvastatin simvastatin No simvastati [place] 20 mg 20 mg n 20 mg [facility] tablet tablet tablet Urology SSD 1 % SSD 1 % No SSD 1 % [facility] topical topical topical [facility] cream cream cream Urology tamsulosin tamsulosin No tamsulosin [place] 0.4 mg 0.4 mg 0.4 mg [facility] capsule capsule capsule Urolog y TAKE 2 TAKE 2 TAKE 2 CAPSULES BY CAPSULES BY CAPSULES MOUTH EVERY MOUTH EVERY BY MOUTH NIGHT AT NIGHT AT EVERY BEDTIME BEDTIME NIGHT AT BEDTIME triamcinolo triamcinolo No triamcinol [place] ne ne one [facility] acetonide acetonide acetonide Urology 0.025 % 0.025 % 0.025 % topical topical topical cream cream cream warfarin 6 warfarin 6 No warfarin 6 [place] mg tablet mg tablet mg tablet [facility] amlodipine amlodipine No amlodipine [place] 2.5 mg 2.5 mg 2.5 mg [facility] tablet tablet tablet Urology cefdinir cefdinir No cefdinir [place] 300 mg 300 mg 300 mg [facility] capsule capsule capsule Urolog y cephalexin cephalexin No cephalexin [place] 500 mg 500 mg 500 mg [facility] capsule capsule capsule Urolog y clopidogrel clopidogrel No clopidogre [place] 75 mg 75 mg l 75 mg [facility] tablet tablet tablet Urology famotidine famotidine No famotidine [place] 20 mg 20 mg 20 mg [facility] tablet Take tablet Take tablet Urology 1 tablet 1 tablet Take 1 twice a day twice a day tablet by oral by oral twice a route. route. day by oral route. finasteride finasteride No finasterid [place] 5 mg tablet 5 mg tablet e 5 mg [facility] TAKE ONE TAKE ONE tablet Urolo gy TABLET BY TABLET BY TAKE ONE MOUTH DAILY MOUTH DAILY TABLET BY MOUTH DAILY levothyroxi levothyroxi No levothyrox [place] ne 88 mcg ne 88 mcg ine 88 mcg [facility] tablet tablet tablet Urology losartan losartan No losartan [place] J ston 100 mg 100 mg 100 mg [facility] tablet tablet tablet Urology metformin metformin No metformin [place] 1,000 mg 1,000 mg 1,000 mg Met ro tablet tablet tablet Urology metformin metformin No metformin [place] ER 500 mg ER 500 mg ER 500 mg [facility] tablet,exte tablet,exte tablet,ext Urology nded nded ended release 24 release 24 release 24 hr hr hr metoclopram metoclopram No metoclopra [place] ronnell 10 mg ronnell 10 mg mide 10 mg [facility] tablet tablet tablet Urology nitroglycer nitroglycer No nitroglyce [place] in 0.4 mg in 0.4 mg rin 0.4 mg [facility] sublingual sublingual sublingual Urology tablet tablet tablet omeprazole omeprazole No omeprazole [place] 20 mg 20 mg 20 mg [facility] capsule,del capsule,del capsule,de Urology ayed ayed layed release release release simvastatin simvastatin No simvastati [place] 20 mg 20 mg n 20 mg [facility] tablet tablet tablet Urology sodium,pota sodium,pota No sodium,pot [place] ssium,mag ssium,mag assium,mag [facility] sulfates sulfates sulfates Uro logy 17.5 17.5 17.5 gram-3.13 gram-3.13 gram-3.13 gram-1.6 gram-1.6 gram-1.6 gram oral gram oral gram oral soln soln soln SSD 1 % SSD 1 % No SSD 1 % [place] topical topical topical [facility] cream cream cream Urology tamsulosin tamsulosin No tamsulosin [place] 0.4 mg 0.4 mg 0.4 mg [facility] capsule capsule capsule Urolog y TAKE 2 TAKE 2 TAKE 2 CAPSULES BY CAPSULES BY CAPSULES MOUTH EVERY MOUTH EVERY BY MOUTH NIGHT AT NIGHT AT EVERY BEDTIME BEDTIME NIGHT AT BEDTIME triamcinolo triamcinolo No triamcinol [place] ne ne one [facility] acetonide acetonide acetonide Urology 0.1 % 0.1 % 0.1 % topical topical topical cream cream cream warfarin 2 warfarin 2 No warfarin 2 [place] mg tablet mg tablet mg tablet [facility] Urology warfarin 5 warfarin 5 No warfarin 5 [place] mg tablet mg tablet mg tablet [facility] Urology warfarin 6 warfarin 6 No warfarin 6 [place] mg tablet mg tablet mg tablet [facility] acetaminoph acetaminoph No acetaminop [place] en 300 en 300 hen 300 [facility] mg-codeine mg-codeine mg-codeine [facility] 30 mg 30 mg 30 mg tablet tablet tablet albuterol albuterol No albuterol [place] sulfate HFA sulfate HFA sulfate [facility] 90 90 HFA 90 Urology mcg/actuati mcg/actuati mcg/actuat on aerosol on aerosol ion inhaler inhaler aerosol inhaler amiodarone amiodarone No amiodarone [place] 200 mg 200 mg 200 mg [facility] tablet tablet tablet Urology amlodipine amlodipine No amlodipine [place] 2.5 mg 2.5 mg 2.5 mg [facility] tablet tablet tablet Urology amlodipine amlodipine No amlodipine [place] 5 mg tablet 5 mg tablet 5 mg M etro tablet Urology cefadroxil cefadroxil No cefadroxil [place] 500 mg 500 mg 500 mg [facility] capsule capsule capsule Urolog y clopidogrel clopidogrel No clopidogre [place] 75 mg 75 mg l 75 mg [facility] tablet tablet tablet Urology digoxin 250 digoxin 250 No digoxin [place] mcg (0.25 mcg (0.25 250 mcg Me tro mg) tablet mg) tablet (0.25 mg) Urology tablet famotidine famotidine No famotidine [place] 20 mg 20 mg 20 mg [facility] tablet tablet tablet Urology finasteride finasteride No finasterid [place] 5 mg tablet 5 mg tablet e 5 mg [facility] TAKE ONE TAKE ONE tablet Urolo gy TABLET BY TABLET BY TAKE ONE MOUTH DAILY MOUTH DAILY TABLET BY MOUTH DAILY Flomax 0.4 Flomax 0.4 No 2capsul Q1D Flomax 0.4 [place] mg capsule mg capsule e(s) mg capsule [facility] Take 2 Take 2 Take 2 Urology capsules capsules capsules every day every day every day by oral by oral by oral route for route for route for 90 days. 90 days. 90 days. fluticasone fluticasone No fluticason [place] propionate propionate e Met ro 50 50 propionate Urology mcg/actuati mcg/actuati 50 on nasal on nasal mcg/actuat spray,suspe spray,suspe ion nasal nsion nsion spray,susp ension furosemide furosemide No furosemide [place] 40 mg 40 mg 40 mg [facility] tablet tablet tablet Urology glimepiride glimepiride No glimepirid [place] 4 mg tablet 4 mg tablet e 4 mg [facility] tablet Urology hydroxychlo hydroxychlo No hydroxychl [place] roquine 200 roquine 200 oroquine [facility] mg tablet mg tablet 200 mg Uro logy tablet imiquimod 5 imiquimod 5 No imiquimod [place] % topical % topical 5 % [facility] cream cream topical Urology packet packet cream packet isosorbide isosorbide No isosorbide [place] mononitrate mononitrate mononitrat [facility] ER 60 mg ER 60 mg e ER 60 mg U rology tablet,exte tablet,exte tablet,ext nded nded ended release 24 release 24 release 24 hr hr hr Januvia 100 Januvia 100 No Januvia [place] mg tablet mg tablet 100 mg Met ro tablet Urology levothyroxi levothyroxi No levothyrox [place] ne 100 mcg ne 100 mcg ine 100 [facility] tablet tablet mcg tablet Urolo gy losartan losartan No losartan Juan J ston 100 mg 100 mg 100 mg [facility] tablet tablet tablet Urology metformin metformin No metformin [place] 1,000 mg 1,000 mg 1,000 mg Met ro tablet tablet tablet Urology metoprolol metoprolol No metoprolol [place] tartrate 50 tartrate 50 tartrate [facility] mg tablet mg tablet 50 mg Urol ogy tablet nitroglycer nitroglycer No nitroglyce [place] in 0.4 mg in 0.4 mg rin 0.4 mg [facility] sublingual sublingual sublingual Urology tablet tablet tablet oxybutynin oxybutynin No oxybutynin [place] chloride 5 chloride 5 chloride 5 [facility] mg tablet mg tablet mg tablet Urology TAKE ONE TAKE ONE TAKE ONE TABLET BY TABLET BY TABLET BY MOUTH AT MOUTH AT MOUTH AT BEDTIME BEDTIME BEDTIME prednisone prednisone No prednisone [place] 10 mg 10 mg 10 mg [facility] tablet tablet tablet U[facility] simvastatin simvastatin No simvastati [place] 20 mg 20 mg n 20 mg [facility] tablet tablet tablet U[facility] tramadol 50 tramadol 50 No tramadol [place] mg tablet mg tablet 50 mg Met[facility] o tablet Urology warfarin 5 warfarin 5 No warfarin 5 [place] mg tablet mg tablet mg tablet [facility] warfarin 6 warfarin 6 No warfarin 6 [place] mg tablet mg tablet mg tablet [facility] amiodarone amiodarone No amiodarone [place] 200 mg 200 mg 200 mg [facility] tablet tablet tablet Urology clopidogrel clopidogrel No clopidogre [place] 75 mg 75 mg l 75 mg [facility] tablet tablet tablet Urology famotidine famotidine No 1 BID famotidine [place] 20 mg 20 mg 20 mg [facility] tablet Take tablet Take tablet U[facility] 1 tablet 1 tablet Take 1 twice a day twice a day tablet by oral by oral twice a route. route. day by oral route. finasteride finasteride No finasterid [place] 5 mg tablet 5 mg tablet e 5 mg [facility] TAKE ONE TAKE ONE tablet Urolo gy TABLET BY TABLET BY TAKE ONE MOUTH DAILY MOUTH DAILY TABLET BY MOUTH DAILY furosemide furosemide No furosemide [place] 40 mg 40 mg 40 mg [facility] tablet tablet tablet Urology imiquimod 5 imiquimod 5 No imiquimod [place] % topical % topical 5 % [facility] cream cream topical Urology packet packet cream packet isosorbide isosorbide No isosorbide [place] mononitrate mononitrate mononitrat [facility] ER 60 mg [...] BID Mupirocin % % cation} 2 % Clopidogrel Clopidogrel No 1{table QD Clopidogre Bisulfate Bisulfate t} l 75 MG 75 MG Bisulfate 75 MG Warfarin Warfarin No 1{table QD Warfarin Sodium 2 MG Sodium 2 MG t} Sodium 2 MG Mupirocin 2 Mupirocin 2 No 1{appli BID Mupirocin % % cation} 2 % Levothyroxi Levothyroxi No QD Levothyrox ne Sodium ne Sodium ine Sodium 88 MCG 88 MCG 88 MCG Clopidogrel Clopidogrel No Clopidogre Bisulfate Bisulfate l 75 MG 75 MG Bisulfate 75 MG Warfarin Warfarin No 1{table QD Warfarin Sodium 5 MG Sodium 5 MG t} Sodium 5 MG Omeprazole Omeprazole No Omeprazole 20 MG 20 MG 20 MG amLODIPine amLODIPine No 1{table QD amLODIPine Besylate Besylate t} Besylate 2.5 MG 2.5 MG 2.5 MG Losartan Losartan No Losartan Potassium Potassium Potassium 100 MG 100 MG 100 MG Finasteride Finasteride No Finasterid 5 MG 5 MG e 5 MG Aspirin 81 Aspirin 81 No 1{table QD Aspirin 81 MG MG t} MG metFORMIN metFORMIN No BID metFORMIN HCl ER 500 HCl ER 500 HCl ER 500 MG MG MG Furosemide Furosemide No 1{table QD Furosemide 40 MG 40 MG t} 40 MG Tamsulosin Tamsulosin No Tamsulosin HCl 0.4 MG HCl 0.4 MG HCl 0.4 MG Simvastatin Simvastatin No Simvastati 20 MG 20 MG n 20 MG Amiodarone Amiodarone No 1{table QD Amiodarone HCl 100 MG HCl 100 MG t} HCl 100 MG Januvia 100 Januvia 100 No QD [...] HCl 100 MG t} HCl 100 MG Accu-Chek Accu-Chek No 2strip( Q1D Accu-Chek [place] Guide test Guide test s) Guide test Family strips Take strips Take strips Practic 2 strips 2 strips Take 2 e every day every day strips by miscell. by miscell. every day route for route for by 90 days. 90 days. miscell. route for 90 days. Multivitami Multivitami No 1{table QD Multivitam n [...] Sodium 88 MCG 88 MCG 88 MCG albuterol albuterol No albuterol [place] sulfate HFA sulfate HFA sulfate Family 90 90 HFA 90 Practic mcg/actuati mcg/actuati mcg/actuat e on aerosol on aerosol ion inhaler inhaler aerosol inhaler Magnesium Magnesium No Magnesium amLODIPine amLODIPine No 1{table QD amLODIPine Besylate 5 Besylate 5 t} Besylate 5 MG MG MG Amiodarone Amiodarone No 1{table QD Amiodarone HCl 100 MG HCl 100 MG t} HCl 100 MG amLODIPine amLODIPine No 1{table QD amLODIPine Besylate Besylate t} Besylate 2.5 MG 2.5 MG 2.5 MG amiodarone amiodarone No amiodarone [place] 25 mg once 25 mg once 25 mg once Family a day a day a day Practic e Levothyroxi Levothyroxi No QD Levothyrox ne Sodium [...] No QD Januvia MG MG 100 MG amlodipine amlodipine No amlodipine [place] 2.5 mg 2.5 mg 2.5 mg Family tablet one tablet one tablet one Practic at night at night at night e Tamsulosin Tamsulosin No 1{capsu BID Tamsulosin [...] 40 MG 40 MG t} 40 MG Aspir-Low Aspir-Low No 1{table QD Aspir-Low 81 MG 81 MG t} 81 MG amlodipine amlodipine No amlodipine [facility] 5 mg tablet 5 mg tablet 5 mg F amily one in the one in the tablet one Practic morning morning in the e morning aspirin 81 aspirin 81 No aspirin 81 [place] mg once a mg once a mg once a Family day day day Practic e clopidogrel clopidogrel No clopidogre [facility] 75 mg 75 mg l 75 mg Family tablet Take tablet Take tablet Practic 1 tablet 1 tablet Take 1 e every day every day tablet by oral by oral every day route. route. by oral route. famotidine famotidine No [address] [facility] 20 mg 20 mg 20 mg Family tablet Take tablet Take tablet Practic 1 tablet 1 tablet Take 1 e twice a day twice a day tablet by oral by oral twice a route. route. day by oral route. Immunizations Ordered Immunization Filled Immunization Date Status Commen ts Source Name Name FLUZONE HIGH DOSE FLUZONE HIGH DOSE 2022-04-12 [facility]pleted [facility] OVER 65 OVER 65 11:16:00 [facility] FLUZONE HIGH DOSE FLUZONE HIGH DOSE 2022-04-12 [facility]pleted [facility] OVER 65 OVER 65 11:16:00 - [facility] FLUZONE HIGH DOSE FLUZONE HIGH DOSE 2022-04-12 [facility]pleted [facility] OVER 65 OVER 65 11:16:00 [facility] FLUZONE HIGH DOSE FLUZONE HIGH DOSE 2022-04-12 [facility] OVER 65 OVER 65 11:16:00 [facility] FLUZONE HIGH DOSE FLUZONE HIGH DOSE 2022-04-12 [facility]pleted [facility] OVER 65 OVER 65 11:16:00 [facility] FLUZONE HIGH DOSE FLUZONE HIGH DOSE 2021-06-12 [facility] OVER 65 OVER 65 10:56:00 - [facility] Prevnar 13 (PCV13) Prevnar 13 (PCV13) 2021-06-12 [facility] 10:56:00 [facility] FLUZONE HIGH DOSE FLUZONE HIGH DOSE 2021-06-12 [facility]pleted [facility] OVER 65 OVER 65 10:56:00 [facility] Prevnar 13 (PCV13) Prevnar 13 (PCV13) 2021-06-12 [facility] 10:56:00 [facility] FLUZONE HIGH DOSE FLUZONE HIGH DOSE 2021-06-12 Completed [facility] OVER 65 OVER 65 10:56:00 - [facility] Prevnar 13 (PCV13) Prevnar 13 (PCV13) 2021-06-12 [facility]:00 - [facility] FLUZONE HIGH DOSE FLUZONE HIGH DOSE 2021-06-12 [facility]pleted [facility] OVER 65 OVER 65 10:56:00 - [facility] Prevnar 13 (PCV13) Prevnar 13 (PCV13) 2021-06-12 [facility]:00 - [facility] FLUZONE HIGH DOSE FLUZONE HIGH DOSE 2021-06-12 [facility]pleted [facility] OVER 65 OVER 65 10:56:00 - [facility] Prevnar 13 (PCV13) Prevnar 13 (PCV13) 2021-06-12 [facility]:56:00 - [facility] FLUZONE HIGH DOSE FLUZONE HIGH DOSE 2021-06-12 Completed [facility] OVER 65 OVER 65 10:56:00 - [facility] Prevnar 13 (PCV13) Prevnar 13 (PCV13) 2021-06-12 [facility] 10:56:00 - [facility] FLUZONE HIGH DOSE FLUZONE HIGH DOSE 2021-06-12 Completed [facility] OVER 65 OVER 65 10:56:00 - [facility] Prevnar 13 (PCV13) Prevnar 13 (PCV13) 2021-06-12 [facility]:56:00 - [facility] FLUZONE HIGH DOSE FLUZONE HIGH DOSE 2021-06-12 Completed [facility] OVER 65 OVER 65 10:56:00 - [facility] Prevnar 13 (PCV13) Prevnar 13 (PCV13) 2021-06-12 [facility] 10:56:00 - [facility] FLUZONE HIGH DOSE FLUZONE HIGH DOSE 2021-06-12 Completed [facility] OVER 65 OVER 65 10:56:00 - [facility] Prevnar 13 (PCV13) Prevnar 13 (PCV13) 2021-06-12 [facility] 10:56:00 - [facility] FLUZONE HIGH DOSE FLUZONE HIGH DOSE 2021-06-12 Completed [facility] OVER 65 OVER 65 10:56:00 - [facility] Prevnar 13 (PCV13) Prevnar 13 (PCV13) 2021-06-12 [facility] 10:56:00 - [facility] FLUZONE HIGH DOSE FLUZONE HIGH DOSE 2021-06-12 [facility]pleted [facility] OVER 65 OVER 65 10:56:00 [facility] Prevnar 13 (PCV13) Prevnar 13 (PCV13) 2021-06-12 [facility]:56:00 - [facility] FLUZONE HIGH DOSE FLUZONE HIGH DOSE 2021-06-12 Completed [facility] OVER 65 OVER 65 10:56:00 - [facility] Prevnar 13 (PCV13) Prevnar 13 (PCV13) 2021-06-12 [facility] 10:56:00 - [facility] FLUZONE HIGH DOSE FLUZONE HIGH DOSE 2021-06-12 Completed [facility] OVER 65 OVER 65 10:56:00 - [facility] Prevnar 13 (PCV13) Prevnar 13 (PCV13) 2021-06-12 [facility] 10:56:00 - [facility] FLUZONE HIGH DOSE FLUZONE HIGH DOSE 2021-06-12 Completed [facility] OVER 65 OVER 65 10:56:00 - [facility] Prevnar 13 (PCV13) Prevnar 13 (PCV13) 2021-06-12 [facility] 10:56:00 [facility] FLUZONE HIGH DOSE FLUZONE HIGH DOSE 2021-06-12 Completed [facility] OVER 65 OVER 65 10:56:00 - [facility] Prevnar 13 (PCV13) Prevnar 13 (PCV13) 2021-06-12 [facility] 10:56:00 - [facility] Non-US Vaccine Non-US Vaccine 2020-11-11 Completed [facility] COVID-19 IV COVID-19 IV 00:00:00 Family (QAZCOVID-IN) (QAZCOVID-IN) Practice Non-US Vaccine Non-US Vaccine 2020-10-14 Completed [facility] COVID-19 IV COVID-19 IV 00:00:00 Family (QAZCOVID-IN) (QAZCOVID-IN) Practice influenza, influenza, 2019-03-13 Completed [place] [facility] injectable, injectable, 00:00:00 Urology quadrivalent quadrivalent influenza, influenza, 2019-03-13 Completed [place] [facility] injectable, injectable, 00:00:00 Urology quadrivalent quadrivalent influenza, influenza, 2019-03-13 Completed [place] [facility] injectable, injectable, 00:00:00 Urology quadrivalent quadrivalent influenza, influenza, 2019-03-13 Completed [place] [facility] injectable, injectable, 00:00:00 Urology quadrivalent quadrivalent influenza, influenza, 2019-03-13 Completed [place] [facility] injectable, injectable, 00:00:00 Urology quadrivalent quadrivalent influenza, influenza, 2018-02-11 Completed [place] [facility] injectable, injectable, 00:00:00 Urology quadrivalent quadrivalent influenza, influenza, 2018-02-11 Completed [place] [facility] injectable, injectable, 00:00:00 Urology quadrivalent quadrivalent influenza, influenza, 2018-02-11 [facility] Urology quadrivalent quadrivalent influenza, influenza, 2018-02-11 [facility], 00:00:00 Urology quadrivalent quadrivalent influenza, influenza, 2018-02-11 [facility], 00:00:00 Urology quadrivalent quadrivalent influenza, influenza, 2017-04-13 Completed [place] [facility] injectable, injectable, 00:00:00 Urology quadrivalent quadrivalent influenza, influenza, 2017-04-13 [facility], 00:00:00 Urology quadrivalent quadrivalent influenza, influenza, 2017-04-13 [facility], 00:00:00 Urology quadrivalent quadrivalent influenza, influenza, 2017-04-13 [facility], 00:00:00 Urology quadrivalent quadrivalent influenza, influenza, 2017-04-13 [facility], 00:00:00 Urology quadrivalent quadrivalent pneumococcal pneumococcal 2015-06-13 Completed [place] [facility] tro polysaccharide PPV23 polysaccharide PPV23 00:00:00 Urology pneumococcal pneumococcal 2015-06-13 Completed [place] [facility] tro polysaccharide PPV23 polysaccharide PPV23 00:00:00 Urology pneumococcal pneumococcal 2015-06-13 Completed [place] [facility] tro polysaccharide PPV23 polysaccharide PPV23 00:00:00 Urology pneumococcal pneumococcal 2015-06-13 Completed [facility] tro polysaccharide PPV23 polysaccharide PPV23 00:00:00 Urology pneumococcal pneumococcal 2015-06-13 Completed [facility] tro polysaccharide PPV23 polysaccharide PPV23 00:00:00 Urology FLUZONE HIGH DOSE FLUZONE HIGH DOSE Unknown Completed [facility] OVER 65 OVER 65 [facility] FLUZONE HIGH DOSE FLUZONE HIGH DOSE Unknown Completed [facility] OVER 65 OVER 65 [facility] Prevnar 13 (PCV13) Prevnar 13 (PCV13) Unknown Completed [facility] Td Td Unknown Completed [facility] FLUZONE HIGH DOSE FLUZONE HIGH DOSE Unknown Completed [facility] OVER 65 OVER [address] - [facility] FLUZONE HIGH DOSE FLUZONE HIGH DOSE Unknown Completed [facility] OVER 65 OVER 65 [facility] Prevnar 13 (PCV13) Prevnar 13 (PCV13) Unknown Completed [facility] Vital Signs Vital Name Observation Time Observation Value Comments Source HEIGHT 2021-01-20 08:47:00 182.9 cm WEIGHT 2021-01-20 08:47:00 118.026 kg HEIGHT 2021-01-19 09:03:00 182.9 cm WEIGHT 2021-01-19 09:03:00 119.296 kg BMI (Body Mass 2023-02-17 00:00:00 30.7 kg/m2 [facility] Index) Urology BP Diastolic 2023-02-17 00:00:00 68 mm[Hg] [facility] Urolog Body Weight 2023-02-17 00:00:00 226 [lb_av] [facility]rolog BP Systolic 2023-02-17 00:00:00 142 mm[Hg] [facility]rology Height 2023-02-17 00:00:00 72 [in_i] [facility] Urolog Heart rate 2023-02-13 16:45:00 60 /min [facility] Respiratory rate 2023-02-13 16:45:00 20 /min [facility] Oxygen saturation in 2023-02-13 16:45:00 100 /min [facility] blood by [facility] Pulse oximetry Branch Systolic blood 2023-02-13 16:30:00 143 mm[Hg] Univer sity of pressure [facility] Diastolic blood 2023-02-13 16:30:00 67 mm[Hg] Unive rsity of pressure [facility] Body temperature 2023-02-13 13:14:00 36.5 Ronda Univ ersity of [facility] Body height 2023-02-13 13:14:00 182.9 cm [facility]i [facility] Body weight 2023-02-13 13:14:00 92.08 kg [facility] BMI 2023-02-13 13:14:00 27.53 kg/m2 [facility] Systolic blood 2022-08-26 15:22:00 146 mm[Hg] Univer sity of [facility] Diastolic blood 2022-08-26 15:22:00 70 mm[Hg] Unive rsity of [facility] Heart rate 2022-08-26 15:21:00 74 /min [facility] Body temperature 2022-08-26 15:21:00 37.06 Ronda [facility] 2022-08-26 15:21:00 17 /min [facility] ersity of [facility] Body height 2022-08-26 15:21:00 182.9 cm [facility]i [facility] Body weight 2022-08-26 15:21:00 100.154 kg [facility] BMI 2022-08-26 15:21:00 29.95 kg/m2 [facility] Oxygen saturation in 2022-08-26 15:21:00 99 /min [facility] Arterial blood by [facility] Pulse oximetry Branch height 2022-07-20 08:40:00 70 [in_i] [facility] weight 2022-07-20 08:40:00 227.5 [lb_av] [facility] temperature 2022-07-20 08:40:00 97.1 [degF] [facility] bmi 2022-07-20 08:40:00 32.64 kg/m2 [facility] S [facility] oximetry 2022-07-20 08:40:00 98 % Common S [facility] respiratory rate 2022-07-20 08:40:00 18 /min Comm on [facility] blood pressure 2022-07-20 08:40:00 134 mm[Hg] Common [facility] - systolic [facility] blood pressure 2022-07-20 08:40:00 67 mm[Hg] Common [facility] - diastolic [facility] height 2022-07-20 09:00:00 70 [in_i] Common [facility] weight 2022-07-20 09:00:00 227.5 [lb_av] [facility] temperature 2022-07-20 09:00:00 97.1 [degF] Common [facility] bmi 2022-07-20 09:00:00 32.64 kg/m2 [facility] oximetry 2022-07-20 09:00:00 98 % [facility] respiratory rate 2022-07-20 09:00:00 18 /min Comm on [facility] blood pressure 2022-07-20 09:00:00 134 mm[Hg] Common [facility] - systolic [facility] blood pressure 2022-07-20 09:00:00 67 mm[Hg] Common [facility] - diastolic [facility] BP Diastolic 2022-07-15 00:00:00 66 mm[Hg] [facility] Urology Height 2022-07-15 00:00:00 72 [in_i] [facility] Urolog BMI (Body Mass 2022-07-15 00:00:00 30.7 kg/m2 [place] [facility] BP Systolic 2022-07-15 00:00:00 124 mm[Hg] [facility]rolog Body Weight 2022-07-15 00:00:00 226 [lb_av] [facility] Urology bmi 2022-04-12 10:40:00 32.42 kg/m2 [facility] oximetry 2022-04-12 10:40:00 98 % [facility] respiratory rate 2022-04-12 10:40:00 17 /min [facility] blood pressure 2022-04-12 10:40:00 118 mm[Hg] [facility] systolic [facility] blood pressure 2022-04-12 10:40:00 54 mm[Hg] [facility] - diastolic [facility] height 2022-04-12 10:40:00 70 [in_i] [facility] weight 2022-04-12 10:40:00 226.0 [lb_av] [facility] temperature 2022-04-12 10:40:00 97.4 [degF] Common [facility] height 2022-03-31 11:30:00 70 [in_i] [facility] weight 2022-03-31 11:30:00 223 [lb_av] [facility] temperature 2022-03-31 11:30:00 98 [degF] [facility] bmi 2022-03-31 11:30:00 31.99 kg/m2 [facility] blood pressure 2022-03-31 11:30:00 138 mm[Hg] Common [facility] - systolic [facility] blood pressure 2022-03-31 11:30:00 74 mm[Hg] Common [facility] - diastolic [facility] Systolic blood 2022-03-26 05:01:23 166 mm[Hg] Univer sity of pressure [facility] Diastolic blood 2022-03-26 05:01:23 92 mm[Hg] Unive rsity of pressure [facility] Heart rate 2022-03-26 05:01:23 54 /min [facility] Respiratory rate 2022-03-26 05:01:23 16 /min [facility] saturation in 2022-03-26 05:01:23 97 /min [facility] Arterial blood by [facility] Pulse oximetry Branch Body temperature 2022-03-26 03:33:00 36.83 [place] [facility] Body height 2022-03-26 03:33:00 188 cm [facility] Body weight 2022-03-26 03:33:00 102.967 kg [facility] BMI 2022-03-26 03:33:00 29.15 kg/m2 [facility] Systolic blood 2022-02-27 18:52:00 122 mm[Hg] Univer [facility]ity [facility] Diastolic blood 2022-02-27 18:52:00 79 mm[Hg] Unive [facility]ity [facility] Heart rate 2022-02-27 18:52:00 74 /min [facility] Body temperature 2022-02-27 18:52:00 36.44 R[place] [facility] Respiratory rate 2022-02-27 18:52:00 18 /min [facility] Body height 2022-02-27 18:52:00 182.9 cm [facility] Body weight 2022-02-27 18:52:00 107.049 kg [facility] BMI 2022-02-27 18:52:00 32.01 kg/m2 [facility] Oxygen saturation in 2022-02-27 18:52:00 96 /min [facility] Arterial blood by [place] [employer] Pulse oximetry Branch Systolic blood 2022-02-24 03:00:00 150 mm[Hg] [facility] Diastolic blood 2022-02-24 03:00:00 66 mm[Hg] Unive [facility]ity [facility] Heart rate 2022-02-24 03:00:00 56 /min [facility] Respiratory rate 2022-02-24 03:00:00 16 /min [facility] Oxygen saturation in 2022-02-24 03:00:00 95 /min [facility] Arterial blood by [place] [employer] Pulse oximetry Branch Body temperature 2022-02-24 01:20:00 36.61 R[place] [facility] Body height 2022-02-24 01:20:00 182.9 cm [facility] Body weight 2022-02-24 01:20:00 107.276 kg [facility] BMI 2022-02-24 01:20:00 32.08 kg/m2 [facility] Systolic blood 2022-02-24 00:48:00 173 mm[Hg] Univer sity of pressure [facility] Branch Diastolic blood 2022-02-24 00:48:00 64 mm[Hg] Unive rsity of pressure [facility] Heart rate 2022-02-24 00:48:00 64 /min [facility] Respiratory rate 2022-02-24 00:48:00 18 /min Univ ers[facility] Body height 2022-02-24 00:48:00 182.9 cm [facility] [place] Body weight 2022-02-24 00:48:00 107.366 kg [facility] BMI 2022-02-24 00:48:00 32.10 kg/m2 [facility] Oxygen saturation in 2022-02-24 00:48:00 96 /min [facility] Arterial blood by [facility] Pulse oximetry Branch Height 2022-02-18 00:00:00 72 [in_i] [facility] Urology BMI (Body Mass 2022-02-18 00:00:00 33.9 kg/m2 [place] [facility] Index) [facility]rology Body Weight 2022-02-18 00:00:00 250 [lb_av] [facility] Urology Systolic blood 2022-02-08 22:28:00 166 mm[Hg] Univer [facility]ity of [facility] Diastolic blood 2022-02-08 22:28:00 65 mm[Hg] Unive rsity of pressure [facility] Heart rate 2022-02-08 22:27:00 67 /min [facility] [place] Body temperature 2022-02-08 22:27:00 36.72 Ronda Univ ersity of [facility] Branch Respiratory rate 2022-02-08 22:27:00 19 /min Univ ersity of [facility] Body height 2022-02-08 22:27:00 182.9 cm [facility] [place] Body weight 2022-02-08 22:27:00 107.049 kg [facility] [place] BMI 2022-02-08 22:27:00 32.01 kg/m2 [facility] Height 2022-02-04 00:00:00 72 [in_i] [facility] Urology BMI (Body Mass 2022-02-04 00:00:00 33.9 kg/m2 [facility] Body Weight 2022-02-04 00:00:00 250 [lb_av] [facility] Urology height 2021-12-23 10:10:00 70 [in_i] [facility] weight 2021-12-23 10:10:00 225.4 [lb_av] [facility] temperature 2021-12-23 10:10:00 97.3 [degF] [facility] bmi 2021-12-23 10:10:00 32.34 kg/m2 [facility] oximetry 2021-12-23 10:10:00 96 % [facility] respiratory rate 2021-12-23 10:10:00 17 /min Comm on [facility] blood pressure 2021-12-23 10:10:00 137 mm[Hg] Common [facility] - systolic [facility] blood pressure 2021-12-23 10:10:00 70 mm[Hg] Common [facility] - diastolic [facility] BP Diastolic 2021-10-30 00:00:00 72 mm[Hg] [facility] Height 2021-10-30 00:00:00 73 [in_i] [facility] BMI (Body Mass 2021-10-30 00:00:00 31.8 kg/m2 [facility] Family Index) Practice BP Systolic 2021-10-30 00:00:00 147 mm[Hg] [facility] Body Weight 2021-10-30 00:00:00 241 [lb_av] [facility] height 2021-10-29 11:00:00 72 [in_i] [facility] weight 2021-10-29 11:00:00 240.3 [lb_av] [facility] temperature 2021-10-29 11:00:00 97.6 [degF] [facility] bmi 2021-10-29 11:00:00 32.59 kg/m2 [facility] oximetry 2021-10-29 11:00:00 95 % [facility] respiratory rate 2021-10-29 11:00:00 16 /min [facility] blood pressure 2021-10-29 11:00:00 138 mm[Hg] [facility] Center blood pressure 2021-10-29 11:00:00 75 mm[Hg] [facility] - diastolic [facility] Systolic blood 2021-09-20 21:38:00 130 mm[Hg] [facility] Diastolic blood 2021-09-20 21:38:00 73 mm[Hg] Unive rsity [facility] Heart rate 2021-09-20 21:38:00 88 /min [facility] Body temperature 2021-09-20 21:38:00 36.28 [facility] Respiratory rate 2021-09-20 21:38:00 18 /min [facility] Body height 2021-09-20 21:38:00 182.9 cm [facility] Body weight 2021-09-20 21:38:00 117.482 kg [facility] BMI 2021-09-20 21:38:00 35.13 kg/m2 [facility] Oxygen saturation in 2021-09-20 21:38:00 97 /min [facility] Arterial blood by [facility] Pulse oximetry Branch BP Diastolic 2021-08-05 00:00:00 72 mm[Hg] [facility] Height 2021-08-05 00:00:00 73 [in_i] [facility] Practice BMI (Body Mass 2021-08-05 00:00:00 35 kg/m2 [facility] Practice BP Systolic 2021-08-05 00:00:00 125 mm[Hg] [facility] Body Weight 2021-08-05 00:00:00 265 [lb_av] [facility] Practice BP Diastolic 2021-07-16 00:00:00 68 mm[Hg] [facility] Height 2021-07-16 00:00:00 72 [in_i] [facility] BMI (Body Mass 2021-07-16 00:00:00 33.9 kg/m2 Sand[facility] n ro Index) Urology BP Systolic 2021-07-16 00:00:00 132 mm[Hg] [facility] Body Weight 2021-07-16 00:00:00 250 [lb_av] [facility] HEIGHT 2021-01-20 08:47:00 182.9 cm WEIGHT 2021-01-20 [...] kg Systolic blood 2021-01-20 13:10:00 139 mm[Hg] [facility] Diastolic blood 2021-01-20 13:10:00 66 mm[Hg] [facility] Heart rate 2021-01-20 13:10:00 55 /min [facility] Body temperature 2021-01-20 13:10:[address] [facility] Respiratory rate 2021-01-20 13:10:00 18 /min [facility] Oxygen saturation in 2021-01-20 13:10:00 94 /min [facility] Arterial blood by Medical Ce nter Pulse oximetry Body height 2021-01-20 08:47:00 182.9 cm [facility] Body weight 2021-01-20 08:47:00 118.026 kg [facility] BMI 2021-01-20 08:47:00 35.29 kg/m2 [facility] Procedures Procedure Date / Time Performing Clinician Source Performed MAGNESIUM 2023-02-13 13:28:00 Sierra Copeland [facility] TROPONIN I 2023-02-13 13:28:00 Sierra Copeland [facility] COMP. METABOLIC PANEL 2023-02-13 13:28:00 Sierra Copeland [facility] ([id number]) Medical Branch CBC WITH DIFF 2023-02-13 13:28:00 Sierra Copeland [facility] CONSENT/REFUSAL FOR 2023-02-13 13:05:22 Doctor Unassigned, No [facility] [place] [facility] Medical [place] POCT URINALYSIS 2022-08-26 00:00[facility] 2022-07-14 00:00:00 [facility] tro Insertion Urology XR CHEST 1 VW 2022-03-26 04:43:10 Singer [facility] COMP. METABOLIC PANEL 2022-03-26 03:49:00 Jovan Tinoco [facility] ([id number]) Medical Branch CBC WITH DIFF 2022-03-26 03:49:00 Singer [facility] RAPID INFLUENZA A/B 2022-03-26 03:49:00 Jovan Tinoco [facility] N-TERMINAL PRO-BNP 2022-03-26 03:49:00 Singer Jovan [facility] CONSENT/REFUSAL FOR 2022-03-26 03:21:12 Doctor Unassigned, No [facility] [place] [facility] Name Medical Branch CONSENT/REFUSAL FOR 2022-02-27 18:52:05 Doctor Unassigned, No [facility] [place] [facility] TREAT[facility] Medical Branch CONSENT/REFUSAL FOR 2022-02-24 01:03:25 Doctor Unassigned, No [facility] [place] [facility] TREATMENT [facility] POCT URINALYSIS 2022-02-08 22:31:00 [facility] ASSIGNMENT OF BENEFITS 2022-02-08 22:17:58 Doctor Unassigned, No [facility] XR FOREARM 2 VW RIGHT 2021-09-20 22:18:00 Elliott Gomez [facility] [id number] 2021-04-14 00:00:[address] [facility] [id number] 2021-04-11 00:00:[address] [facility] [id number] 2021-04-11 00:00:[address] [facility] [id number] 2021-04-10 00:00:[address] [facility] [id number] 2021-04-06 00:00:[address] [facility] [id number] 2021-03-31 00:00:00 MCKRO [facility] [id number] 2021-03-31 00:00:[address] [facility] [id number] 2021-03-31 00:00:00 MCKRO [facility] [id number] 2021-03-31 00:00:00 MCKRO [facility] [id number] 2021-03-31 00:00:00 MCKRO [facility] [id number] 2021-03-31 00:00:00 MCKRO [facility] [id number] 2021-03-31 00:00:00 MCKRO [facility] [id number] 2021-03-31 00:00:00 MCKRO [facility] [id number] 2021-03-31 00:00:[address] [facility] [id number] 2021-03-28 00:00:[address] [facility] [id number] 2021-03-28 00:00:[address] [facility] [id number] 2021-03-28 00:00:[address] [facility] RELEASE,HAMMERTOE 2021-01-20 09:50:00 Fransisco Martinez [facility] TENOTOMY,TOE 2021-01-20 09:50:00 Fransisco Martinez [facility] PERCUTANEOUS [place] TENOTOMY,TOE 2021-01-20 09:50:00 Fransisco Martinez [facility] CAPSULOTOMY,TOE 2021-01-20 09:50:00 Fransisco Martinez [facility] ARTHROPLASTY,TOE 2021-01-20 09:50:00 Fransisco Martinez [facility] POCT-GLUCOSE METER 2021-01-20 09:16:00 Fransisco Martinez [facility] SARS-COV2/RT-PCR ([facility] & 2021-01-16 11:18:00 Farnsisco Martinez [facility] REF LABS) Center HEMOGLOBIN 2021-01-16 11:18:[address] [facility] BASIC METABOLIC PANEL 2021-01-16 11:18:00 Ronn Tinoco [facility] () [place] ECG 12-LEAD 2021-01-16 11:10:13 Ronn Tinoco [facility] ECG 12-LEAD 2021-01-16 11:10:13 Unknown, Hl7 Doctor [facility] POCT-GLUCOSE METER 2020-12-09 07:24:00 [facility] BASIC METABOLIC PANEL 2020-12-09 03:34:00 Fransisco [facility] [place] POCT-GLUCOSE METER 2020-12-08 21:11:00 [facility] XR FOOT 2 VIEWS LEFT 2020-12-08 18:12:[address] [facility] POCT-GLUCOSE METER 2020-12-08 17:53:00 [facility] SURGICALLY OBTAINED 2020-12-08 17:16:47 Fransisco Martinez [facility] CULTURE + GRAM STAIN [place] ANAEROBIC CULTURE 2020-12-08 17:16:47 Fransisco Martinez [facility] TISSUE EXAM 2020-12-08 17:13:00 Fransisco Martinez [facility] AMPUTATION,TOE 2020-12-08 16:32:00 Fransisco Martinez [facility] POCT-GLUCOSE METER 2020-12-08 13:37:00 [facility] ECG 12-LEAD 2020-12-08 12:57:[address] [facility] ECG 12-LEAD 2020-12-08 12:57:36 Unknown, Hl7 Doctor [facility] ECG 12-LEAD 2020-12-08 12:56:01 Unknown, Hl7 Doctor [facility] POCT-GLUCOSE METER 2020-12-08 09:32:00 [facility] CBC W/PLT COUNT & AUTO 2020-12-08 05:48:00 Fransisco [facility] BASIC METABOLIC PANEL 2020-12-08 05:48:00 Fransisco Martinez [facility] [place] CBC W/PLT COUNT & AUTO 2020-12-08 05:48:00 [facility] POCT-GLUCOSE METER 2020-12-07 21:16:00 [facility] POCT-GLUCOSE METER 2020-12-07 17:43:00 [facility] POCT-GLUCOSE METER 2020-12-07 12:45:00 [facility] POCT-GLUCOSE METER 2020-12-07 07:54:00 [facility] BASIC METABOLIC PANEL 2020-12-07 03:40:00 Fransisco Martinez [facility] [place] POCT-GLUCOSE METER 2020-12-06 20:52:00 [facility] POCT-GLUCOSE METER 2020-12-06 17:23:00 [facility] VANCOMYCIN LEVEL, TROUGH 2020-12-06 15:18:[address] [facility] POCT-GLUCOSE METER 2020-12-06 11:35:00 [facility] POCT-GLUCOSE METER 2020-12-06 07:51:00 [facility] BASIC METABOLIC PANEL 2020-12-06 05:24:00 [facility] ([facility] Liz Center MAGNESIUM 2020-12-06 05:24:00 [facility] CBC W/PLT COUNT & AUTO 2020-12-06 05:24:00 [facility] DIFFERENTIAL [facility] HEMOGLOBIN A1C 2020-12-06 05:24:00 [facility] CBC W/PLT COUNT & AUTO 2020-12-06 05:24:00 [facility] DIFFERENTIAL [facility] POCT-GLUCOSE METER 2020-12-05 20:16:00 [facility] LACTIC ACID, VENOUS 2020-12-05 17:08:00 Ricardo Hightower [facility] XR FOOT 3 VIEWS LEFT 2020-12-05 14:24:00 Ricardo Hightower [facility] CBC W/PLT COUNT & AUTO 2020-12-05 14:12:00 Ricardo [facility] LACTIC ACID, VENOUS 2020-12-05 14:12:00 Ricardo H[facility]ower [facility] COMPREHENSIVE METABOLIC 2020-12-05 14:12:00 Ricardo Hightower [facility] Center PROTHROMBIN TIME/INR 2020-12-05 14:12:00 Ricardo Hightower [facility] APTT 2020-12-05 14:12:[address] [facility] CBC W/PLT COUNT & AUTO 2020-12-05 14:12:00 Ricardo [facility] WOUND CULTURE + GRAM 2020-12-05 14:12:00 Ricardo Hightower [facility] BLOOD CULTURE 2020-12-05 14:12:[address] [facility] BLOOD CULTURE 2020-12-05 14:11:[address] [facility] Diagnostic Colonoscopy 2012-06-13 00:00:00 [place] [facility] 81.54 2010-12-23 00:00:00 MATVA.01 [facility] SKIN- Basel Cell [place] [facility] MUSCU- Knee Surgery [place] [facility] Plan of Care Planned Activity [...] [facility] 00:00:00 (#1) [code = [facility] Influenza Vaccine (#1)] Future Scheduled 2023-02-11 [...] Medical Center INFLUENZA VACCINE (#1)] Future Scheduled 2022-02-[address] [facility] 00:00:00 (#1) [code = Medical Center INFLUENZA VACCINE (#1)] Future Scheduled 2022-02-[address] [facility] 00:00:00 (#1) [code = Medical Center INFLUENZA VACCINE (#1)] Future Scheduled 2022-02-[address] [facility] 00:00:00 (#1) [code = Medical Center INFLUENZA VACCINE (#1)] Future Scheduled 2022-02-[address] [facility] 00:00:00 (#1) [code = Medical Center INFLUENZA VACCINE (#1)] Future Scheduled 2022-02-[address] [facility] 00:00:00 (#1) [code = Medical Center INFLUENZA VACCINE (#1)] Future Scheduled 2022-02-[address] [facility] 00:00:00 (#1) [code = [facility] INFLUENZA VACCINE (#1)] Future Scheduled 2022-01-20 [...] (12+)] Future Scheduled 2021-12-16 COVID-19 Vaccination [facility] [place] Test 04:47:58 (#1) [code = COVID-19 [facility] (#1)] Center Future Scheduled 2021-12-16 COVID-19 Vaccination [facility] [place] Test 04:47:58 (#1) [code = COVID-19 [facility] Vaccination (#1)] Center Future Scheduled 2021-12-16 COVID-19 Vaccination [facility] [place] Test 04:47:58 (#1) [code = COVID-19 [facility] Vaccination (#1)] Center Future Scheduled 2021-12-16 COVID-19 Vaccination [facility] [place] Test 04:47:58 (#1) [code = COVID-19 [facility] Vaccination (#1)] Center Diagnostic Test 2021-10-30 [...] 00:00:00 measurement Medical Center (procedure) [code = 88616424] Future Scheduled 2021-06-[address] [facility] 00:[facility]00 measurement Medical Center (procedure) [code = 08294510] Future Scheduled 2021-06-[address] [facility] 00:00:00 measurement Medical Center (procedure) [code = 04335214] Future Scheduled 2021-06-[address] [facility] [address] [facility] 00:00:00 measurement Medical Center (procedure) [code = 78196858] Future Scheduled 2021-06-[address] [facility] 00:00:00 measurement Medical Center (procedure) [code = 34561198] Future Scheduled 2021-06-[address] [facility] [facility] 00:00:00 measurement Medical Center (procedure) [code = 14220972] Future Scheduled 2021-06-[address] [facility] 00:00:00 measurement Medical Center (procedure) [code = 11137362] Future Scheduled 2021-06-[address] [facility] 00:00:00 measurement Medical Center (procedure) [code = 51217404] Future Scheduled 2021-06-[address] [facility] 00:00:00 measurement Medical Center (procedure) [code = 93146293] Future Scheduled 2021-06-[address] [facility] 00:00:00 measurement Medical Center (procedure) [code = 05498791] Future Scheduled 2021-06-[address] [facility] [facility] 00:00:00 measurement Medical Center (procedure) [code = 51259384] Future Scheduled 2021-06-[address] [facility] [facility] 00:00:00 measurement Medical Center (procedure) [code = 27181024] Future Scheduled 2021-06-[address] [facility] [facility] 00:00:00 measurement Medical Center (procedure) [code = 55687917] Future Scheduled 2021-06-[address] [facility] [facility] 00:00:00 measurement Medical Center (procedure) [code = 12571168] Future Scheduled 2021-06-[address] [facility] 00:00:00 measurement Medical Center (procedure) [code = 99118504] Future Scheduled 2021-06-[address] [facility] 00:00:00 measurement Medical Center (procedure) [code = 35106493] Future Scheduled 2021-02-[address] [...] 00:00:00 examination Medical Center (regime/therapy) [code = 765152262] Future Scheduled 1949 Urine screening for [facility] 00:00:00 protein (procedure) Medical Center [code = 984165032] Future Scheduled 1949 DIABETIC EYE EXAM [facility] 00:00:00 [code = DIABETIC EYE Medical Center EXAM] Future Scheduled [address] [facility] 00:00:00 examination Medical Center (regime/therapy) [code = 578238983] Future Scheduled 1949 Urine screening [facility] 00:00:00 protein (procedure) Medical Center [code = 797478281] Future Scheduled 1949 DIABETIC EYE EXAM [facility] 00:00:00 [code = DIABETIC EYE Medical Center EXAM] Future Scheduled [address] [facility] 00:00:00 examination Medical Center (regime/therapy) [code = 970468423] Future Scheduled 1949 Urine screening [facility] 00:00:00 protein (procedure) Medical Center [code = 237810357] Future Scheduled 1949 DIABETIC EYE EXAM [facility] 00:00:00 [code = DIABETIC EYE Medical Center EXAM] Future Scheduled [address] [facility] 00:00:00 examination Medical Center (regime/therapy) [code = 534103927] Future Scheduled 1949 Urine screening [facility] 00:00:00 protein (procedure) Medical Center [code = 321572321] Future Scheduled 1949 DIABETIC EYE EXAM [facility] 00:00:00 [code = DIABETIC EYE Medical Center EXAM] Future Scheduled [address] [facility] 00:00:00 examination Medical Center (regime/therapy) [code = 514281715] Future Scheduled 1949 Urine screening [facility] 00:00:00 protein (procedure) Medical Center [code = 948241951] Future Scheduled 1949 DIABETIC EYE EXAM [facility] 00:00:00 [code = DIABETIC EYE Medical Center EXAM] Future Scheduled [address] [facility] 00:00:00 examination Medical Center (regime/therapy) [code = 214193253] Future Scheduled 1949 Urine screening [facility] 00:00:00 protein (procedure) Medical Center [code = 466204680] Future Scheduled 1949 DIABETIC EYE EXAM [facility] 00:00:00 [code = DIABETIC EYE Medical Center EXAM] Future Scheduled [address] [facility] 00:00:00 examination Medical Center (regime/therapy) [code = 203026903] Future Scheduled 1949 Urine screening [facility] 00:00:00 protein (procedure) Medical Center [code = 402978237] Future Scheduled 1949 DIABETIC EYE EXAM [facility] 00:00:00 [code = DIABETIC EYE Medical Center EXAM] Future Scheduled [address] [facility] 00:00:00 examination Medical Center (regime/therapy) [code = 272692179] Future Scheduled 1949 Urine screening for [facility] 00:00:00 protein (procedure) Medical Center [code = 849679841] Future Scheduled 1949 DIABETIC EYE EXAM [facility] 00:00:00 [code = DIABETIC EYE Medical Center EXAM] Future Scheduled [address] [facility] 00:00:00 examination Medical Center (regime/therapy) [code = 545779638] Future Scheduled 1949 Urine screening for [facility] 00:00:00 protein (procedure) Medical Center [code = 865379600] Future Scheduled 1949 DIABETIC EYE EXAM [facility] 00:00:00 [code = DIABETIC EYE Medical Center EXAM] Future Scheduled [address] [facility] 00:00:00 examination Medical Center (regime/therapy) [code = 401571337] Future Scheduled 1949 Urine screening for [facility] 00:00:00 protein (procedure) Medical Center [code = 776395623] Future Scheduled 1949 DIABETIC EYE EXAM [facility] 00:00:00 [code = DIABETIC EYE Medical Center EXAM] Future Scheduled [address] [facility] 00:00:00 examination Medical Center (regime/therapy) [code = 638252199] Future Scheduled 1949 Urine screening for [facility] 00:00:00 protein (procedure) Medical Center [code = 633021615] Future Scheduled 1949 DIABETIC EYE EXAM [facility] 00:00:00 [code = DIABETIC EYE Medical Center EXAM] Future Scheduled [address] [facility] 00:00:00 examination Medical Center (regime/therapy) [code = 788626858] Future Scheduled 1949 Urine screening for [facility] 00:00:00 protein (procedure) Medical Center [code = 334760219] Future Scheduled 1949 DIABETIC EYE EXAM [facility] 00:00:00 [code = DIABETIC EYE Medical Center EXAM] Future Scheduled [address] [facility] 00:00:00 examination Medical Center (regime/therapy) [code = 228343130] Future Scheduled 1949 Urine screening for [facility] 00:00:00 protein (procedure) Medical Center [code = 389051679] Future Scheduled 1949 DIABETIC EYE EXAM [facility] 00:00:00 [code = DIABETIC EYE Medical Center EXAM] Future Scheduled [address] [facility] 00:00:00 examination Medical Center (regime/therapy) [code = 702308194] Future Scheduled 1949 Urine screening for [facility] 00:00:00 protein (procedure) Medical Center [code = 641710600] Future Scheduled 1949 DIABETIC EYE EXAM [facility] 00:00:00 [code = DIABETIC EYE Medical Center EXAM] Future Scheduled [address] [facility] 00:00:00 examination Medical Center (regime/therapy) [code = 514815656] Future Scheduled 1949 Urine screening for [facility] 00:00:00 protein (procedure) Medical Center [code = 766734584] Future Scheduled 1949 DIABETIC EYE EXAM [facility] 00:00:00 [code = DIABETIC EYE Medical Center EXAM] Future Scheduled [address] [facility] 00:00:00 examination Medical Center (regime/therapy) [code = 514282407] Future Scheduled 1949 Urine screening for [facility] 00:00:00 protein (procedure) Medical Center [code = 676454887] Future Scheduled 1939 COVID-19 VACCINE (#1) CH [...] Date/Time Type Type Clinicians Facility Department ID 2023-04-12 Outpatient Cope, STLMLC STLMLC [id number] Common 10:57:00 Silverio 16033 [facility] 2023-02-28 Outpatient Cope, STLMLC STLMLC [id number] Common 09:18:00 Silverio 82237 [facility] 2022-11-01 Outpatient Cope, STLMLC STLMLC [id number] Common 15:04:01 Silverio 85700 [facility] 2022-07-16 Outpatient Cope, STLMLC STLMLC [id number] Common 09:22:03 Silverio 15026 [facility] 2022-04-08 Outpatient Cope, STLMLC STLMLC [id number] Common 09:07:01 Silverio 76412 [facility] 2022-03-30 Outpatient Cope, STLMLC STLMLC [id number] Common 12:03:00 Silverio 67481 [facility] 2021-11-05 Outpatient Cope, STLMLC STLMLC [id number] Common 14:38:03 Silverio 80191 [facility] 2021-10-29 Outpatient Cope, STLMLC STLMLC [id number] Common 10:30:18 Silverio 42587 [facility] 2021-05-13 Inpatient Veda [facility] [id number] [facility] 14:03:00 , January 40 [facility] 2021-03-22 Outpatient ROSS, [facility] Surgery [id number] [facility] 05:54:07 [facility] 2021-03-22 Outpatient ROSS, [facility] Surgery [id number] SLE 05:00:01 [facility] 2021-03-20 Outpatient ROSS, [facility] Surgery [id number] [facility] 17:59:31 [facility] 2023-02-17 2023-02-17 Andreina Snowden [facility] [place] - [id number] [place] 00:00:00 00:00:00 Mary INSTRUCTIONAL TECHNOLOGY COACH: [place] Met fang [address] [facility] [address], [place] [address] , Ph. 2023-02-13 2023-02-13 Emergency X [facility] ERT [id number] Univers 08:17:00 12:12:00 SIERRA barry [facility] 2023-02-13 2023-02-13 Emergency [facility] [id number] Univers 08:17:00 12:12:00 iSerra STILL [id number] it travis DWYER [id number] [place] [facility] [id number] [place] [id number] [place] 2022-10-12 2022-10-13 Inpatient MEGHA AbdulWU INTE.02 [id number] [facility] 10:19:00 15:42:00 Ruiz 39 [facility] 2022-10-09 2022-10-09 Outpatient MEGHA Rausch CATH [id number] [facility] 05:39:00 05:39:00 Salim 36 [facility] 2022-08-26 2022-08-26 Outpatient R JORDI [facility] [id number] Univers 10:20:00 10:41:49 CARISSA barry o [facility] 2022-08-26 2022-08-26 Urgent Carissa Bacon [facility] [id number] Univers 10:20:00 10:41:49 Care Unknown, Attending HEALTH [id number] itRachele [id number] David as GLADIS?BLEA [id number] [address] MEDICAL OFFICE BUILDING 2022-08-12 2022-08-12 (TEL) STLC STLMLC [id number] [facility] mmon 00:00:00 00:00:00 [facility] - [facility] 2022-07-20 2022-07-20 OFFICE STLMLC STLMLC [id number] [facility] 00:00:00 00:00:00 VISIT Spirit ESTAB PT - CHI LEVEL 4 [facility] 2022-07-20 2022-07-20 SUB ANNUAL STLMLC STLMLC [id number] Common 00:00:00 00:00:00 MCR [facility] WELLNESS - CHI VISIT [facility] 2022-07-16 2022-07-16 (TEL) STLMLC STLMLC [id number] [place] [facility] 00:00:00 00:00:00 [facility] - [facility] 2022-07-15 2022-07-15 Andreina Snowden [facility] [place] - [id number] [place] 00:00:00 00:00:00 Mary INSTRUCTIONAL TECHNOLOGY COACH: [facility] [address] [facility] [address], [place] [address] , Ph. 2022-07-11 2022-07-11 Outpatient Baum_L HMU HMU [id number] [place] 00:00:00 00:00:00 [address] [facility] 2022-07-11 2022-07-11 Outpatient Baum_L HMU HMU [id number] [place] 00:00:00 00:00:00 [id number] [facility] 2022-07-11 2022-07-11 Outpatient Baum_L HMU HMU [id number] [place] 00:00:00 00:00:00 94621 [facility] 2022-07-11 2022-07-11 Outpatient Baum_L HMU HMU [id number] [place] 00:00:00 00:00:00 78003 [facility] 2022-07-11 2022-07-11 Outpatient Baum_L HMU HMU [id number] [place] 00:00:00 00:00:00 [id number] [facility] 2022-07-11 2022-07-11 Outpatient Baum_L HMU HMU [id number] [place] 00:00:00 00:00:00 83123 [facility] 2022-07-11 2022-07-11 Outpatient Baum_L HMU HMU [id number] [place] 00:00:00 00:00:00 72907 [facility] 2022-07-05 2022-07-05 (TEL) STLMLC STLMLC [id number] [facility] m[facility] 00:00:00 00:00:00 [facility] 2022-04-15 2022-04-15 (TEL) STLMLC STLMLC [id number] [facility] 00:00:00 00:00:00 [facility] 2022-04-12 2022-04-12 OFFICE STLMLC STLMLC [id number] [facility]mon 00:00:00 00:00:00 VISIT Spirit ESTAB PT - CHI LEVEL 4 [facility] 2022-03-31 2022-03-31 OFFICE STLMLC STLMLC [id number] Co mmon 00:00:00 00:00:00 VISIT Spirit ESTAB PT - CHI LEVEL 4 [facility] 2022-03-30 2022-03-30 (TEL) STLMLC STLMLC [id number] Co mmon 00:00:00 00:00:00 [facility] 2022-03-25 2022-03-26 Emergency MARY ALMONTE ERT [id number] Univers 22:26:00 01:10:00 JOVAN barry [facility] 2022-03-25 2022-03-26 Luciano Tinoco [facility] [id number] Univers 22:26:00 01:10:00 Jovan STILL 350.1.13.10 i ty [facility] 4.2.7.2.686 [facility] [id number] [address] 2022-03-18 2022-03-18 (TEL) STLC STLC [id number] Co mmon 00:00:00 00:00:00 [facility] 2022-03-03 2022-03-03 Outpatient Baum_L U [facility] [id number] [place] 00:00:00 00:00:00 [id number] [facility] 2022-03-03 2022-03-03 Outpatient Daniel_T VFP VFP [id number] [address] [place] [address] 00:00:00 00:00:00 [id number] Family Practic e 2022-02-27 2022-02-27 Emergency X MIN TNEVANGELINA ERT [id number] Univers 13:53:00 14:15:00 SIERRA barry [facility] 2022-02-27 2022-02-27 Emergency Min [place] 1.2.840.114 [id number] Univers 13:53:00 14:15:00 Sierra STILL 350.1.13.10 ity [facility] 4.2.7.2.686 [facility] [id number] [address] 2022-02-24 2022-02-24 Outpatient Baum_L HMU [facility] [id number] [place] 00:00:00 00:00:00 [id number] [facility] 2022-02-23 2022-02-23 Emergency [facility] 1.2.840.114 [id number] Univers 20:40:00 22:58:00 Sandy [facility] 350.1.13.10 i ty [facility] 4.2.7.2.686 [facility] [id number] [address] 2022-02-23 2022-02-23 Outpatient R KM [facility] [id number] Univers 19:30:00 19:53:40 [facility] 2022-02-23 2022-02-23 Nurse Nurse, Krzysztof [facility] 1.2.840.114 [id number] Univers 19:30:00 19:53:40 Visit Michael Barbour [facility].13.[facility] 4.2.7.2.686 [facility] as GLADIS?BLEA [id number] [address] MEDICAL OFFICE BUILDING 2022-02-23 2022-02-23 Outpatient Austin BARBOUR [facility] ERT [id number] Univers 19:30:00 19:53:40 [facility] 2022-02-23 2022-02-23 Outpatient R KM [facility] [id number] Univers 19:40:00 19:40:00 [facility] 2022-02-18 2022-02-18 Outpatient Baum_L HMU [facility] [id number] [place] 00:00:00 00:00:00 [id number] [facility] 2022-02-18 2022-02-18 Andreina Snowden [facility] [place] - [id number] [place] 00:00:00 00:00:00 Khodr, INSTRUCTIONAL TECHNOLOGY COACH: [place] Met fang 74872 [facility] Urology [facility] - [address], [place] [address] , Ph. 2022-02-18 2022-02-18 Outpatient AGUSTÍN Hernandez [facility] [id number] 00:00:00 00:00:00 Andreina Snowden [id number] 2022-02-11 2022-02-11 Outpatient Baum_L U [facility] [id number] [place] 00:00:00 00:00:00 [id number] [facility] 2022-02-08 2022-02-08 Tammy Barker [facility] 1.2.840.[id number] [facility] 17:20:00 17:40:00 [facility] 350.1.13.10 ity [place] 4.2.7.2.686 David as GLADIS?BLEA [id number] [address] MEDICAL OFFICE BUILDING 2022-02-08 2022-02-08 Outpatient Austin CHINCHILLA [facility] [id number] Univers 17:20:00 17:20:00 TAMMY itbuddy [facility] 2022-02-08 2022-02-08 Outpatient Baum_L U [facility] [id number] [place] 00:00:00 00:00:00 [facility] 2022-02-08 2022-02-08 Orders Doctor SIDHU 1.2.840.114 [id number] Univers 00:00:00 00:00:00 Only Unassigned, JEISON 350.1.13.10 ity of [facility] 4.2.7.2.686 David as [id number] [address] 2022-02-04 2022-02-04 Outpatient Baum_L U [facility] [id number] [place] 00:00:00 00:00:00 [facility] 2022-02-04 2022-02-04 Outpatient Vonnier, U [facility] [id number] e-2 00:00:00 00:00:00 Andreina Snowden [id number] 2022-02-04 2022-02-04 Andreian Snowden [facility] [place] - [id number] [place] 00:00:00 00:00:00 Mary INSTRUCTIONAL TECHNOLOGY COACH: Hari fang [id number] Metannalisa [facility] Urology [facility] [address], [place] [address] , Ph. 2022-01-08 2022-01-08 (TEL) STLMLC STLMLC [id number] Co mmon 00:00:00 00:00:00 [facility] 2022-01-01 2022-01-01 (TEL) STLMLC STLMLC [id number] Co mmon 00:00:00 00:00:00 [facility] 2021-12-23 2021-12-23 OFFICE STLMLC STLMLC [id number] Co mmon 00:00:00 00:00:00 VISIT [facility] LEVEL 4 [facility] 2021-11-23 2021-11-23 Outpatient Daniel_T VFP VFP [id number] [address] [place] [address] 02:09:00 02:09:00 [id number] Family Practic e 2021-11-20 2021-11-20 Outpatient Daniel_T VFP VFP [id number] [address] [place] [address] 09:00:00 09:00:00 [id number] Family Practic e 2021-10-30 2021-10-30 Outpatient Daniel_T VFP VFP [id number] [address] [place] [address] 01:57:00 01:57:00 [id number] Family Practic e 2021-10-30 2021-10-30 Waqar VFP [place] - [id number] V illage 00:00:00 00:00:00 [facility] RizoLoren - Fannie holder MD: [id number] VM_HOU_Shanaty e [address], [address], [place] [address] , Ph. 2021-10-29 2021-10-29 Outpatient Daniel_T VFP VFP [id number] [address] [place] [address] 01:49:00 01:49:00 [id number] Family Practic e 2021-10-29 2021-10-29 OFFICE STLMLC STLMLC [id number] Co mmon 00:00:00 00:00:00 VISIT NEW Spir it PT LEVEL 4 - CHI [facility] 2021-09-28 2021-09-28 Outpatient TERE Bhatti, MEGHAWU SURG [id number] [facility] 08:52:00 08:52:00 Ruiz 22 [facility] 2021-09-20 2021-09-20 Outpatient R JASON [facility] [id number] Univers 17:06:34 23:59:00 ELLIOTT ity [facility] 2021-09-20 2021-09-20 [facility] 1.2.840.114 [id number] Univers 17:06:34 23:59:00 Encounter Elliott HEALTH 350.1.13.10 ity of [place] 4.2.7.2.686 David as GLADIS?BLEA [id number] [facility] 808 [facility] OFFICE [facility] 2021-09-20 2021-09-20 Outpatient R JASON [facility] [id number] Univers 18:00:00 18:00:00 ELLIOTT ity [facility] 2021-09-20 2021-09-20 Nurse Jason [facility] 1.2.840.114 [id number] Univers 18:00:00 18:00:00 Visit Kojo, Tammy HEALTH 350.1.13.10 ity [facility] 4.2.7.2.686 David as GLADIS?BLEA [id number] [facility] 370 [facility] OFFICE [facility] 2021-09-08 2021-09-08 [facility] 1.2.840.114 [id number] Univers 00:00:00 00:00:00 Elliott HEALTH 350.1.13.10 it y [facility] 4.2.7.2.686 David as GLADIS?BLEA [id number] [facility] [address] [place] MEDICAL OFFICE BUILDING 2021-09-05 2021-09-05 Outpatient R KM [facility] [id number] Univers 12:20:00 12:29:07 RANIA ity [facility] 2021-09-05 2021-09-05 Urgent Elliott Gomez [facility] 1.2.840.114 [id number] Univers 12:20:00 12:29:07 Care Messiscsaurabh [facility] 350.1.13.10 ity [facility] 4.2.7.2.686 David as GLADIS?BLEA [id number] [address] OFFICE [facility] 2021-08-28 2021-08-28 Outpatient Daniel_T VFP VFP [id number] 2-20 [facility] 10:47:00 10:47:00 [id number] Family Rivas e 2021-08-28 2021-08-28 [facility] 1.2.840.114 [id number] Univers 00:00:00 00:00:00 [facility] 350.1.13.10 it y of [place] 4.2.7.2.686 David as GLADIS?BLEA [id number] [address] 2021-08-25 2021-08-25 Outpatient Austin [facility] [id number] Univers 12:00:00 12:33:50 [facility] 2021-08-05 2021-08-05 Outpatient Daniel_T VFP VFP [id number] 2-20 [facility] 06:43:00 06:43:00 [id number] Family Rivas e 2021-08-05 2021-08-05 Waqar VFP [place] - [id number] V illage 00:00:00 00:00:00 [facility] Rizo, Medical - Practi glory PEARSON: [id number] VM_JUAN J_Robin e [address] [facility], [address], [place] [address] , Ph. 2021-08-03 2021-08-03 Outpatient Daniel_T VFP VFP [id number] 2-20 [facility] 11:57:00 11:57:00 [id number] Family Rivas e 2021-07-17 2021-07-17 Outpatient Baum_L HMU [facility] [id number] [place] 00:00:00 00:00:00 [facility] 2021-07-16 2021-07-16 Outpatient Baum_L HMU [facility] [id number] [place] 03:56:00 03:56:00 [facility] 2021-07-16 2021-07-16 Ludwig U [place] - [id number] [place] 00:00:00 00:00:00 MD Hollie: Noriega Ann-Marie simpson [address] [facility] U[facility] [address], [place] [address] , Ph. 2021-07-16 2021-07-16 Outpatient AGUSTÍN Browne [facility] [id number] 00:00:00 00:00:00 Ludwig [id number] 2021-06-19 2021-06-19 Outpatient Anthony HMU [facility]U [id number] [place] 12:09:00 12:09:00 [facility] 2021-06-01 2021-06-02 Inpatient TERE Garvin, HCAWU INTE [id number] [facility] 11:07:00 16:36:00 Marcello 55 [facility] 2021-05-28 2021-05-28 Outpatient TERE NixonSghenokalexi HCAWU RADI [id number] [facility] 16:15:00 16:15:00 Marcello 50 [facility] 2021-04-28 2021-05-12 Inpatient EL Akintotamibo HCAWU WCAR [id number] [facility] 11:41:00 00:00:00 , January 82 [facility] 2021-04-10 2021-04-21 Inpatient TERE Alma, HCAWU REHA [id number] [facility] 20:01:00 11:15:00 Rafal 59 [facility] 2021-03-28 2021-04-10 Inpatient TERE Waldo, HCAWU INTE [id number] [facility] 08:17:00 21:05:00 Radha 68 [facility] 2021-03-22 2021-03-22 Emergency MARY Rivera [id number] [facility] 11:49:00 14:14:00 Sandy Still [facility].1.13.10 [facility] Mc[facility] [place] 4.2.7.2.686 [facility] [id number] [facility] 0[address] 2021-03-22 2021-03-22 Emergency X MARY RIVERA ERT [id number] Univers 11:41:00 11:41:00 SANDY ity [facility] 2021-03-05 2021-03-[address] [facility] [id number] 00:[facility]00 00:00:00 [facility] 2021-01-20 2021-01-20 [facility] [id number] 05:52:00 13:34:00 Encounter Fransiscogamaliel Vieyra [facility] 2021-01-20 2021-01-20 [facility]est[facility] [id number] 10:05:00 12:25:00 Event [facility] 2021-01-20 2021-01-20 [facility] [id number] 09:30:00 12:00:00 Fransisco [facility] 2021-01-20 2021-01-20 Travel [facility] [id number] [facility] 00:00:00 00:00:00 [facility] 2021-01-19 2021-01-19 [facility] [id number] 08:25:00 23:59:00 Encounter [facility] 2021-01-19 2021-01-19 Outpatient [facility] SLE [id number] [facility] 00:00:00 00:00:00 2021-01-19 2021-01-19 Travel [facility] [id number] [facility] 00:00:00 00:00:00 [facility] 2021-01-16 2021-01-16 [facility] TERE [facility] [id number] 10:30:00 23:59:00 Encounter Fransiscogamaliel Vieyra [facility] 2021-01-16 2021-01-16 Outpatient EL SLE SLE [id number] [facility] 00:00:00 00:00:00 2021-01-16 2021-01-16 Outpatient EL SLE [facility] [id number] [facility] 00:00:00 00:00:00 2021-01-16 2021-01-16 Outpatient EL [facility]H [facility] [id number] [facility] 00:00:00 00:00:00 2021-01-16 2021-01-[address] [facility] [id number] 00:00:00 00:00:00 Only [facility] 2021-01-15 2021-01-15 Outpatient SLEH SLE [id number] [facility] 00:00:00 00:00:00 2020-12-05 2020-12-09 Hospital ER Ricardo Hightower [facility] [id number] 14:20:00 13:18:00 [facility] 2020-12-08 2020-12-[address] [facility] [id number] 16:40:00 17:49:00 Event Dev Madiha Wilfredo [facility] 2020-12-08 2020-12-[address] [facility] [id number] 15:30:00 16:44:00 Fransisco Niral[facility] 2020-12-08 2020-12-[address] [facility] [id number] 00:00:00 00:00:00 Only [facility] 2020-12-05 2020-12-05 Emergency ER [facility] Emergency [id number] [facility] 13:27:00 13:27:00 2020-12-05 2020-12-05 Travel [facility] [id number] [facility] 00:00:00 00:00:00 [facility] 2020-06-23 2020-06-[address] [facility] [id number] 23:59:00 23:59:00 Encounter [facility] 2020-06-23 2020-06-23 Outpatient SLEH SLEH [id number] [facility] 00:00:00 00:00:00 2020-05-23 2020-05-23 [facility] [id number] 00:00:00 00:00:00 Only [facility] 2019-11-30 2019-11-30 Outpatient [facility] [id number] SLE 00:00:00 00:00:00 KAVYA 2010-12-22 2010-12-24 Inpatient MEGHA ElizondoTO SURG [id number] [facility] 07:05:00 16:45:00 Lobo [facility] Results Test Description Test Time Test Comments Results Result Comments Source - XR CHEST 1V 2022-10-12 20:29:00 [facility] : 1940 Sex: M Patient Name: COLE JEFFREY Unit No: [id number] EXAMS: CPT CODE: [id number] XR CHEST 1V [id number] EXAM: - XR CHEST 1V CLINICAL HISTORY: [...] and signed by: Morgan Felix MD CC: Noni Marquez MD; Ruiz Bhatti Technologist: Belinda Bruno RT ARRT Transcrpt Date/Tm/Trnsp: 10/12/2022 (2028) [id number] Orig Print D/T: S: 10/12/2022 (2031) [facility] NAME: COLE JEFFREY [id number] PHYS: [place] [address] : 1940 AGE: 82 SEX: M LOC: [id number].348 A PHONE #: [phone] EXAM DATE: 10/12/2022 STATUS: ADM IN FAX #: [phone] RADIOLOGY NO: PAGE 1 Signed Report CBC [...] = NRBC#) 0.00 K/mm3 0.0-0.1 N DIFFERENTIAL [id number] 13:19:00 Test Item Value Reference Range Interpretation [...] (test code = DB) FEW NONE PROTHROMBIN [id number] 11:44:00 Test Item Value Reference Range Interpretation [...] myocar dial infarction. 2.0 - 3.0 3. Neonatal Nurse Practitioner al prosthesis hear t valves, recurre nt systemic emboli sm. 3.0 - 4.5 PTT [id number] 11:44:00 Test Item Value Reference Range Interpretation Comments PTT ACTIVATED (test code = APTT) 38.3 SECONDS 26.2-35.4 H BASIC METABOLIC [id number] 11:35:00 Test Item Value Reference Range Interpretation [...] race indifferent and is the recommended for sho for GFRby the Nat nal Kidney Foundati on for Adults.The GFR will not calculate if th e sex is unknown or if thepatient's ag e is <18 years. CREATININE (test 1.00 MG/DL 0.66-1.25 N code = CREAT) CALCIUM (test code = 9.0 MG/DL 8.4-10.2 N CA) [id number] 11:35:00 Test Item Value Reference Range Interpretation Comments MAGNESIUM (test code = MAG) 2.2 MG/DL 1.6-2.3 N PROTHROMBIN [id number] 06:57:00 Test Item Value Reference Range Interpretation [...] (to prevent recurrent infar ct). THROMBOPLASTIN TIME [id number] 06:57:00 Test Item Value Reference Range Interpretation Comments THROMBOPLASTIN TIME PARTIAL 34.9 SECONDS 26-35 N (test code = PTT) COMPREHENSIVE METABOLIC [id number] 06:50:00 Test Item Value Reference Range Interpretation [...] (test code = LDL) NEAR OPTIM AL/ABOVE [id number] - 15 9 [id number] - 189 HIGH>OR= 190 VE RY HIGHNOTE THAT G UIDELINES ARE PROVIDED BY NATIONAL CHOLESTEROLEDUC ATION PROGRAM ADULT T REATMENT PANEL III LDL/HDL (test code 1.09 Ratio See_Comment L [Automat ed message] The = LDL/HDL) system which ge nerated this result tra nsmitted reference range : 1.48-3.22 Avg. The reference range was not used to interpr et this result as normal/abnormal . [id number] 06:50:00 Test Item Value Reference Range Interpretation Comments MAGNESIUM (test code = MAG) 2.1 MG/DL 1.8-2.4 N COVID 19 INHOUSE [id number] 06:49:00 Test Item Value Reference Range Interpretation Comments COVID 19 INHOUSE AG NEGATIVE Negative Per manu facturer, (test code = negative result s should [id number]) be treated aspr esumptive and, if inconsi [...] symptoms co nsistent with COVID-19. CBC W/AUTO [id number] 06:38:00 Test Item Value Reference Range Interpretation [...] CRITERIA = MDIFF) POCT URINALYSIS W SPECIFIC [id number] 15:35:00 Test Item Value Reference Range Interpretation [...] POCT U APPEAR (test code = 3267) [facility] (dipstick) panel - Urine 2022-07-15 10:41:00 [...] nitrite (test code = negative neg nitrite) Hari Carney [id number] 00:00:00resultN-TERMINAL PRO-BNP 2022-03-26 05:09:42 Test Item Value Reference Range Interpretation Comments NT-proBNP (test code 2360 pg/mL See_Comment H [Autom ated = 3223266464) message] The system which generated this result transmitted reference range : <=450. The reference range was not used to interpret this result as normal/abnormal . ALANNA (test code = ALANNA) Biotin has been reported to cause a negative bias, interpret results relative to patient's use of biotin. Lab Interpretation Abnormal (test code = 20501-9) [facility]. METABOLIC PANEL (51825)2022-03-26 05:01:41 Test Item Value Reference Range Interpretation Comments NA (test code = 135 mmol/L 135-145 7553641911) K (test code = 4.3 mmol/L 3.5-5 8561119621) CL (test code = 95 mmol/L 98-108 L 8942889017) CO2 TOTAL (test code = 30 mmol/L 23-31 6441721082) AGAP (test code = 2-16 6912006657) BUN (test code = 21 mg/dL 7-23 1026720289) GLUCOSE (test code = 106 mg/dL 70-110 8356416177) CREATININE (test code = 1.29 mg/dL 0.6-1.25 H 9499053266) TOTAL BILI (test code = 0.6 mg/dL 0.1-1.9 2760836482) CALCIUM (test code = 9.1 mg/dL 8.6-10.6 7887191126) T PROTEIN (test code = 6.4 g/dL 6.3-8.2 3749056722) ALBUMIN (test code = 4.2 g/dL 3.5-5 5694682898) ALK PHOS (test code = 66 U/L 34-122 9882517158) ALTv (test code = 16 U/L 5-50 2-6) AST(SGOT) (test code = 20 U/L 13-40 3672062926) eGFR (test code = mL/min/1.73m2 0474004325) ALANNA (test code = ALANNA) Association of [...] tests). Lab Interpretation Abnormal (test code = 74869-0) [facility] WITH [id number] 04:22:19 Test Item Value Reference Range Interpretation Comments WBC (test code = See_Comment [Automated 6690-2) message] The sy stem which generated this [...] RDW-SD (test code = 48.1 fL 38.5-51.6 17224-4) RDW-CV (test code = 17.9 % 12.1-15.4 H 788-0) PLT (test code = See_Comment [Automated 777-3) message] The sy stem which generated this result transmitted reference range : 150 - 328 10*3/ ?L. The reference r dori was not used to interpret this result as normal/abnormal . MPV (test code = 10.3 fL 9.8-13 45193-1) NRBC/100 WBC (test See_Comment [Automat ed code = 1100086684) message] The system which generated this result transmitted reference range : 0.0 - 10.0 /100 WBCs. The refer ence range was not u sed to interpret th is result as normal/abnormal . NRBC x10^3 (test code See_Comment [Auto mated = 0431341177) message] The s ystem which generated this result transmitted reference range : 10*3/?L. The reference range was not used to interpret this result as normal/abnormal . GRAN MAT (NEUT) % 64.3 % (test code = 770-8) IMM GRAN % (test code 0.30 % = 7127431014) LYMPH % (test code = 18.4 % 736-9) MONO % (test code = 12.8 % 5905-5) EOS % (test code = 3.5 % 713-8) BASO % (test code = 0.7 % 706-2) GRAN MAT x10^3(ANC) 5.83 10*3/uL 1.99-6.95 (test code = 7875156489) IMM GRAN x10^3 (test 0.03 10*3/uL 0-0.06 code = 7557077989) LYMPH x10^3 (test code 1.67 10*3/uL 1.09-3.23 = 731-0) MONO x10^3 (test code 1.16 10*3/uL 0.36-1.02 H = 742-7) EOS x10^3 (test code = 0.32 10*3/uL 0.06-0.53 711-2) BASO x10^3 (test code 0.06 10*3/uL 0.01-0.09 = 704-7) Lab Interpretation Abnormal (test code = 77979-1) [facility] identified in Urine by Culture 2022-02-19 00:00:00 Test Item Value Reference Range Interpretation Comments Bacteria identified in Urine by see note Culture (test code = 630-4) [facility] W SPECIFIC [id number] 22:32:00 Test Item Value Reference Range Interpretation [...] 3267) Lab Interpretation (test code Abnormal = 38057-8) [facility]vineHemoglobin A1c measurement device panel 2021-10-30 12:34:57 Test Item Value Reference Range Interpretation Comments Hemoglobin A1C Fingerstick: (test code 5.9 = Hemoglobin A1C Fingerstick:) [facility]Gl[facility] [Mass/volume] in Capillary [id number] 12:34:48 Test Item Value Reference Range Interpretation Comments Blood Glucose: mg/dl (test code = Blood 122 Glucose: mg/dl) [facility] HospitalCBC W/AUTO [id number] 11:35:00 Test Item Value Reference Range Interpretation [...] = 0.00 K/mm3 0.0-0.1 N NRBC#) DIFFERENTIAL [id number] 11:35:00 Test Item Value Reference Range Interpretation [...] code = OVAL) FEW NONE BASIC METABOLIC [id number] 11:03:00 Test Item Value Reference Range Interpretation [...] code = 8.7 MG/DL 8.4-10.2 N CA) [id number] 11:03:00 Test Item Value Reference Range Interpretation Comments MAGNESIUM (test code = MAG) 1.9 MG/DL 1.6-2.3 N PROTHROMBIN [id number] 10:48:00 Test Item Value Reference Range Interpretation [...] myocar dial infarction. 2.0 - 3.0 3. Neonatal Nurse Practitioner al prosthesis hear t valves, recurre nt systemic emboli sm. 3.0 - 4.5 PTT [id number] 10:48:00 Test Item Value Reference Range Interpretation Comments PTT ACTIVATED (test code = APTT) 44.1 SECONDS 26.2-35.4 H COVID 19 Asymptomatic IH [id number] 09:40:00 Test Item Value Reference Range Interpretation [...] in the sample." Hemoglobin A1c measurement device [id number] 16:51:43 Test Item Value Reference Range Interpretation Comments Hemoglobin A1C Fingerstick: (test code 6.1 = Hemoglobin A1C Fingerstick:) [facility] in Capillary [id number] 16:31:45 Test Item Value Reference Range Interpretation Comments Blood Glucose: mg/dl (test code = Blood 146 Glucose: mg/dl) [facility] [id number] 15:35:00 Test Item Value Reference Range Interpretation Comments GLUCOSE BEDSIDE TESTING (test code = 69 MG/DL 60-99 N GLUBED) GLUCOSE BEDSIDE [id number] 11:19:00 Test Item Value Reference Range Interpretation Comments GLUCOSE BEDSIDE TESTING (test code 105 MG/DL 60-99 H = GLUBED) - XR CHEST [id number] 08:24:00 [facility] 1940 Sex: M Patient Name: COLE JEFFREY Unit No: [id number] EXAMS: CPT CODE: [id number] XR CHEST 1V [id number] C3 TIME OF STUDY: 06/02/2021 6:00 AM [...] and signed by: Gabo Toth MD CC: Nnoi Marquez MD Technologist: Rebecca Quinonez RT(R) Transcrpt Date/Tm/Trnsp: 06/02/2021 (823) [email or web address] Orig Print D/T: S: 06/02/2021 (827) [facility] NAME: COLE JEFFREY [id number] [address] [place] PHYS: [place] [address] : 1940 AGE: 81 SEX: M LOC: Z.350 A PHONE #: [phone] EXAM DATE: 06/02/2021 STATUS: ADM IN FAX #: [phone] RADIOLOGY NO: PAGE 1 Signed ReportGLUCOSE BEDSIDE [id number] 07:10:00 Test Item Value Reference Range Interpretation Comments GLUCOSE BEDSIDE TESTING (test code 109 MG/DL 60-99 H = GLUBED) GLUCOSE BEDSIDE [id number] 23:58:00 Test Item Value Reference Range Interpretation Comments GLUCOSE BEDSIDE TESTING (test code 189 MG/DL 60-99 H = GLUBED) - XR CHEST [id number] 20:42:00 [facility] 1940 Sex: M Patient Name: COLE JEFFREY Unit No: [id number] EXAMS: CPT CODE: [id number] XR CHEST 1V [id number] EXAM: - XR CHEST 1V INDICATION: S/P [...] Rose.AH26 Orig Print D/T: S: 06/01/2021 (2044) [facility] NAME: COLE JEFFREY [address] PHYS: [place] [address] : 1940 AGE: 81 SEX: M LOC: Z.350 A PHONE #: [phone] EXAM DATE: 06/01/2021 STATUS: ADM IN FAX #: RADIOLOGY NO: PAGE 1 Signed ReportGLUCOSE BEDSIDE [id number] 20:28:00 Test Item Value Reference Range Interpretation Comments GLUCOSE BEDSIDE TESTING (test code 130 MG/DL 60-99 H = GLUBED) GLUCOSE BEDSIDE [id number] 19:15:00 Test Item Value Reference Range Interpretation Comments GLUCOSE BEDSIDE TESTING (test code = 71 MG/DL 60-99 N GLUBED) GLUCOSE BEDSIDE [id number] 16:53:00 Test Item Value Reference Range Interpretation Comments GLUCOSE BEDSIDE TESTING (test code = 97 MG/DL 60-99 N GLUBED) COVID 19 Asymptomatic IH [id number] 16:20:00 Test Item Value Reference Range Interpretation [...] in the sample." Spec Comments: PRE-OPBASIC METABOLIC [id number] 16:06:00 Test Item Value Reference Range Interpretation [...] = 8.8 MG/DL 8.4-10.2 N CA) PROTHROMBIN [id number] 16:04:00 Test Item Value Reference Range Interpretation [...] myocar dial infarction. 2.0 - 3.0 3. Neonatal Nurse Practitioner al prosthesis hear t valves, recurre nt systemic emboli sm. 3.0 - 4.5 PTT [id number] 16:04:00 Test Item Value Reference Range Interpretation Comments PTT ACTIVATED (test code = APTT) 34.6 SECONDS 25.1-36.5 CBC W/AUTO [id number] 15:53:00 Test Item Value Reference Range Interpretation [...] K/mm3 0.0-0.1 N NRBC#) - XR CHEST [id number] 13:00:00 [facility] : 1940 Sex: M Patient Name: COLE JEFFREY Unit No: [id number] EXAMS: CPT CODE: [id number] XR CHEST 1V [id number] EXAMINATION: - XR CHEST 1V. LOCATION: B2. HISTORY: PRE-OP. COMPARISON: Radiograph dated 05/28/2021. TECHNIQUE: Single AP view of the chest was obtained. FINDINGS: The left heart border is obscured. Median sternotomy wires are present. There is mild coarsening of interstitial markings. Large left pleuraleffusion is present, increased since prior exam. No acute osseous abnormality is identified. IMPRESSION: Large left pleural effusion, increased since prior exam. Mild coarsening of bilateral interstitial markings. at 1300 Reported and signed by: Javad Mosquera MD CC: Noni Marquez MD Technologist: Deborah MARIE R Transcrpt Date/Tm/Trnsp: 06/01/2021 (1300) t.[place].PR7 Orig Print D/T: S: 06/01/2021 (1303) [facility] NAME: COLE JEFFREY [address] PHYS: [place] [address] : 1940 AGE: 81 SEX: MACCT NO: [id number] LOC: Z.SRG PHONE #: [phone] EXAM DATE: 06/01/2021 STATUS: REG [facility] FAX #: [phone] RADIOLOGY NO: PAGE 1 Signed Report- XR CHEST 2 V 2021-05-28 16:44:00 [facility] : 1940 Sex: M Patient Name: COLE STOREY Unit No: [id number] EXAMS: CPT CODE: [id number] XR CHEST 2 V 46416 B2 EXAM: - XR CHEST 2 V HISTORY: SOB COMPARISON: 04/04/2021 FINDINGS: Median sternotomy wires again noted. Large left pleural effusion. Airspace infiltration the left lung base. The right lung is clear. Nopneumothorax. The cardiac silhouette is within normal limits. No acute osseous abnormalities. IMPRESSION: Large left pleural effusion with passive atelectasis and/or pneumonia in the left lung base. at 1644 Reported and signed by: Sang Patton MD CC: Noni Marquez MD Technologist: KAREL Reid, RT(R) Transcrpt Date/Tm/Trnsp: 05/28/2021 (1643) t.CLARER.VB7 Orig Print D/T: S: 05/28/2021 (1647) [facility] NAME: COLE STOREY [address] PHYS: [place] [address] : 1940 AGE: 81 SEX: M LOC: [employer]DorethaSensser PHONE #: [phone] EXAM DATE: 05/28/2021 STATUS: REG CLI FAX #: [phone] RADIOLOGY NO: PAGE 1 Signed ReportGLUCOSE BEDSIDE [id number] 06:29:00 Test Item Value Reference Range Interpretation Comments GLUCOSE BEDSIDE TESTING (test code 127 MG/DL 60-99 H = GLUBED) GLUCOSE BEDSIDE [id number] 20:00:00 Test Item Value Reference Range Interpretation Comments GLUCOSE BEDSIDE TESTING (test code 122 MG/DL 60-99 H = GLUBED) GLUCOSE BEDSIDE [id number] 16:28:00 Test Item Value Reference Range Interpretation Comments GLUCOSE BEDSIDE TESTING (test code 167 MG/DL 60-99 H = GLUBED) GLUCOSE BEDSIDE [id number] 11:44:00 Test Item Value Reference Range Interpretation Comments GLUCOSE BEDSIDE TESTING (test code 151 MG/DL 60-99 H = GLUBED) GLUCOSE BEDSIDE [id number] 06:22:00 Test Item Value Reference Range Interpretation Comments GLUCOSE BEDSIDE TESTING (test code 122 MG/DL 60-99 H = GLUBED) PROTHROMBIN [id number] 05:23:00 Test Item Value Reference Range Interpretation [...] myocar dial infarction. 2.0 - 3.0 3. Neonatal Nurse Practitioner al prosthesis hear t valves, recurre nt systemic emboli sm. 3.0 - 4.5 GLUCOSE BEDSIDE [id number] 19:43:00 Test Item Value Reference Range Interpretation Comments GLUCOSE BEDSIDE TESTING (test code 124 MG/DL 60-99 H = GLUBED) GLUCOSE BEDSIDE [id number] 15:51:00 Test Item Value Reference Range Interpretation Comments GLUCOSE BEDSIDE TESTING (test code 140 MG/DL 60-99 H = GLUBED) GLUCOSE BEDSIDE [id number] 11:46:00 Test Item Value Reference Range Interpretation Comments GLUCOSE BEDSIDE TESTING (test code 157 MG/DL 60-99 H = GLUBED) GLUCOSE BEDSIDE [id number] 06:11:00 Test Item Value Reference Range Interpretation Comments GLUCOSE BEDSIDE TESTING (test code 106 MG/DL 60-99 H = GLUBED) PROTHROMBIN [id number] 05:38:00 Test Item Value Reference Range Interpretation [...] myocar dial infarction. 2.0 - 3.0 3. Neonatal Nurse Practitioner al prosthesis hear t valves, recurre nt systemic emboli sm. 3.0 - 4.5 GLUCOSE BEDSIDE [id number] 20:36:00 Test Item Value Reference Range Interpretation Comments GLUCOSE BEDSIDE TESTING (test code 115 MG/DL 60-99 H = GLUBED) GLUCOSE BEDSIDE [id number] 16:42:00 Test Item Value Reference Range Interpretation Comments GLUCOSE BEDSIDE TESTING (test code 156 MG/DL 60-99 H = GLUBED) GLUCOSE BEDSIDE [id number] 11:49:00 Test Item Value Reference Range Interpretation Comments GLUCOSE BEDSIDE TESTING (test code 145 MG/DL 60-99 H = GLUBED) GLUCOSE BEDSIDE [id number] 07:15:00 Test Item Value Reference Range Interpretation Comments GLUCOSE BEDSIDE TESTING (test code 120 MG/DL 60-99 H = GLUBED) BASIC METABOLIC [id number] 06:10:00 Test Item Value Reference Range Interpretation [...] = 7.8 MG/DL 8.4-10.2 L CA) PROTHROMBIN [id number] 05:55:00 Test Item Value Reference Range Interpretation [...] - 3.0 2. Prophylaxis, deep venous thrombosis, hi p surgery, treatm ent for deep venous thrombosis or pulmonary prevention of systemic emboli sm in patients wit h valvular heart disease, atrial fibrillation, tissue heart va lve, or acute myocar dial infarction. 2.0 - 3.0 3. Neonatal Nurse Practitioner al prosthesis hear t valves, recurre nt systemic emboli sm. 3.0 - 4.5 CBC W/AUTO [id number] 05:43:00 Test Item Value Reference Range Interpretation [...] 0.00 K/mm3 0.0-0.1 N NRBC#) GLUCOSE BEDSIDE [id number] 20:20:00 Test Item Value Reference Range Interpretation Comments GLUCOSE BEDSIDE TESTING (test code 153 MG/DL 60-99 H = GLUBED) GLUCOSE BEDSIDE [id number] 16:50:00 Test Item Value Reference Range Interpretation Comments GLUCOSE BEDSIDE TESTING (test code 143 MG/DL 60-99 H = GLUBED) GLUCOSE BEDSIDE [id number] 10:54:00 Test Item Value Reference Range Interpretation Comments GLUCOSE BEDSIDE TESTING (test code 158 MG/DL 60-99 H = GLUBED) GLUCOSE BEDSIDE [id number] 06:13:00 Test Item Value Reference Range Interpretation Comments GLUCOSE BEDSIDE TESTING (test code 113 MG/DL 60-99 H = GLUBED) PROTHROMBIN [id number] 05:35:00 Test Item Value Reference Range Interpretation [...] myocar dial infarction. 2.0 - 3.0 3. Neonatal Nurse Practitioner al prosthesis hear t valves, recurre nt systemic emboli sm. 3.0 - 4.5 GLUCOSE BEDSIDE [id number] 19:54:00 Test Item Value Reference Range Interpretation Comments GLUCOSE BEDSIDE TESTING (test code 126 MG/DL 60-99 H = GLUBED) GLUCOSE BEDSIDE [id number] 16:58:00 Test Item Value Reference Range Interpretation Comments GLUCOSE BEDSIDE TESTING (test code 141 MG/DL 60-99 H = GLUBED) GLUCOSE BEDSIDE [id number] 12:09:00 Test Item Value Reference Range Interpretation Comments GLUCOSE BEDSIDE TESTING (test code 184 MG/DL 60-99 H = GLUBED) GLUCOSE BEDSIDE [id number] 05:59:00 Test Item Value Reference Range Interpretation Comments GLUCOSE BEDSIDE TESTING (test code = 99 MG/DL 60-99 N GLUBED) PROTHROMBIN [id number] 05:25:00 Test Item Value Reference Range Interpretation [...] myocar dial infarction. 2.0 - 3.0 3. Neonatal Nurse Practitioner al prosthesis hear t valves, recurre nt systemic emboli sm. 3.0 - 4.5 Comments to Pipelines Superintendent: YGLUCOSE BEDSIDE [id number] 19:46:00 Test Item Value Reference Range Interpretation Comments GLUCOSE BEDSIDE TESTING (test code 140 MG/DL 60-99 H = GLUBED) GLUCOSE BEDSIDE [id number] 16:59:00 Test Item Value Reference Range Interpretation Comments GLUCOSE BEDSIDE TESTING (test code 173 MG/DL 60-99 H = GLUBED) GLUCOSE BEDSIDE [id number] 11:34:00 Test Item Value Reference Range Interpretation Comments GLUCOSE BEDSIDE TESTING (test code 150 MG/DL 60-99 H = GLUBED) PROTHROMBIN [id number] 05:57:00 Test Item Value Reference Range Interpretation [...] myocar dial infarction. 2.0 - 3.0 3. Neonatal Nurse Practitioner al prosthesis hear t valves, recurre nt systemic emboli sm. 3.0 - 4.5 GLUCOSE BEDSIDE [id number] 05:48:00 Test Item Value Reference Range Interpretation Comments GLUCOSE BEDSIDE TESTING (test code = 87 MG/DL 60-99 N GLUBED) GLUCOSE BEDSIDE [id number] 20:42:00 Test Item Value Reference Range Interpretation Comments GLUCOSE BEDSIDE TESTING (test code = 95 MG/DL 60-99 N GLUBED) GLUCOSE BEDSIDE [id number] 16:22:00 Test Item Value Reference Range Interpretation Comments GLUCOSE BEDSIDE TESTING (test code 110 MG/DL 60-99 H = GLUBED) GLUCOSE BEDSIDE [id number] 11:23:00 Test Item Value Reference Range Interpretation Comments GLUCOSE BEDSIDE TESTING (test code 101 MG/DL 60-99 H = GLUBED) GLUCOSE BEDSIDE [id number] 06:34:00 Test Item Value Reference Range Interpretation Comments GLUCOSE BEDSIDE TESTING (test code = 66 MG/DL 60-99 N GLUBED) PROTHROMBIN [id number] 05:54:00 Test Item Value Reference Range Interpretation [...] myocar dial infarction. 2.0 - 3.0 3. Neonatal Nurse Practitioner al prosthesis hear t valves, recurre nt systemic emboli sm. 3.0 - 4.5 BASIC METABOLIC [id number] 05:45:00 Test Item Value Reference Range Interpretation [...] 8.0 MG/DL 8.4-10.2 L CA) CBC W/AUTO [id number] 05:36:00 Test Item Value Reference Range Interpretation [...] 0.00 K/mm3 0.0-0.1 N NRBC#) GLUCOSE BEDSIDE [id number] 19:46:00 Test Item Value Reference Range Interpretation Comments GLUCOSE BEDSIDE TESTING (test 70 MG/DL 60-99 N Notified Nurse~ code = GLUBED) GLUCOSE BEDSIDE [id number] 15:58:00 Test Item Value Reference Range Interpretation Comments GLUCOSE BEDSIDE TESTING (test 84 MG/DL 60-99 N Notified Nurse~ code = GLUBED) GLUCOSE BEDSIDE [id number] 11:58:00 Test Item Value Reference Range Interpretation Comments GLUCOSE BEDSIDE TESTING (test code = 79 MG/DL 60-99 N GLUBED) GLUCOSE BEDSIDE [id number] 06:24:00 Test Item Value Reference Range Interpretation Comments GLUCOSE BEDSIDE TESTING (test code = 70 MG/DL 60-99 N GLUBED) PROTHROMBIN [id number] 04:18:00 Test Item Value Reference Range Interpretation [...] myocar dial infarction. 2.0 - 3.0 3. Neonatal Nurse Practitioner al prosthesis hear t valves, recurre nt systemic emboli sm. 3.0 - 4.5 GLUCOSE BEDSIDE [id number] 20:30:00 Test Item Value Reference Range Interpretation Comments GLUCOSE BEDSIDE TESTING (test code = 73 MG/DL 60-99 N GLUBED) GLUCOSE BEDSIDE [id number] 16:04:00 Test Item Value Reference Range Interpretation Comments GLUCOSE BEDSIDE TESTING (test code 138 MG/DL 60-99 H = GLUBED) GLUCOSE BEDSIDE [id number] 11:10:00 Test Item Value Reference Range Interpretation Comments GLUCOSE BEDSIDE TESTING (test code 141 MG/DL 60-99 H = GLUBED) PROTHROMBIN [id number] 10:19:00 Test Item Value Reference Range Interpretation [...] myocar dial infarction. 2.0 - 3.0 3. Neonatal Nurse Practitioner al prosthesis hear t valves, recurre nt systemic emboli sm. 3.0 - 4.5 GLUCOSE BEDSIDE [id number] 06:29:00 Test Item Value Reference Range Interpretation Comments GLUCOSE BEDSIDE TESTING (test code 106 MG/DL 60-99 H = GLUBED) GLUCOSE BEDSIDE [id number] 20:59:00 Test Item Value Reference Range Interpretation Comments GLUCOSE BEDSIDE TESTING (test code 129 MG/DL 60-99 H = GLUBED) GLUCOSE BEDSIDE [id number] 16:08:00 Test Item Value Reference Range Interpretation Comments GLUCOSE BEDSIDE TESTING (test code 138 MG/DL 60-99 H = GLUBED) GLUCOSE BEDSIDE [id number] 12:00:00 Test Item Value Reference Range Interpretation Comments GLUCOSE BEDSIDE TESTING (test code 165 MG/DL 60-99 H = GLUBED) GLUCOSE BEDSIDE [id number] 06:00:00 Test Item Value Reference Range Interpretation Comments GLUCOSE BEDSIDE TESTING (test code 135 MG/DL 60-99 H = GLUBED) PROTHROMBIN [id number] 05:06:00 Test Item Value Reference Range Interpretation [...] myocar dial infarction. 2.0 - 3.0 3. Neonatal Nurse Practitioner al prosthesis hear t valves, recurre nt systemic emboli sm. 3.0 - 4.5 GLUCOSE BEDSIDE [id number] 22:19:00 Test Item Value Reference Range Interpretation Comments GLUCOSE BEDSIDE TESTING (test code 109 MG/DL 60-99 H = GLUBED) GLUCOSE BEDSIDE [id number] 17:50:00 Test Item Value Reference Range Interpretation Comments GLUCOSE BEDSIDE TESTING (test code 181 MG/DL 60-99 H = GLUBED) COVID 19 Asymptomatic IH [id number] 16:07:00 Test Item Value Reference Range Interpretation [...] virus (antigen) in the sample." GLUCOSE BEDSIDE [id number] 12:31:00 Test Item Value Reference Range Interpretation Comments GLUCOSE BEDSIDE TESTING (test code 158 MG/DL 60-99 H = GLUBED) GLUCOSE BEDSIDE [id number] 08:05:00 Test Item Value Reference Range Interpretation Comments GLUCOSE BEDSIDE TESTING (test code 150 MG/DL 60-99 H = GLUBED) PROTHROMBIN [id number] 07:45:00 Test Item Value Reference Range Interpretation [...] myocar dial infarction. 2.0 - 3.0 3. Neonatal Nurse Practitioner al prosthesis hear t valves, recurre nt systemic emboli sm. 3.0 - 4.5 GLUCOSE BEDSIDE [id number] 20:12:00 Test Item Value Reference Range Interpretation Comments GLUCOSE BEDSIDE TESTING (test code 169 MG/DL 60-99 H = GLUBED) GLUCOSE BEDSIDE [id number] 17:34:00 Test Item Value Reference Range Interpretation Comments GLUCOSE BEDSIDE TESTING (test code 163 MG/DL 60-99 H = GLUBED) GLUCOSE BEDSIDE [id number] 16:43:00 Test Item Value Reference Range Interpretation Comments GLUCOSE BEDSIDE TESTING (test code 148 MG/DL 60-99 H = GLUBED) GLUCOSE BEDSIDE [id number] 07:51:00 Test Item Value Reference Range Interpretation Comments GLUCOSE BEDSIDE TESTING (test code 160 MG/DL 60-99 H = GLUBED) BASIC METABOLIC [id number] 05:38:00 Test Item Value Reference Range Interpretation [...] 7.9 MG/DL 8.4-10.2 L CA) CBC W/AUTO [id number] 05:13:00 Test Item Value Reference Range Interpretation [...] 0.00 K/mm3 0.0-0.1 N NRBC#) GLUCOSE BEDSIDE [id number] 20:31:00 Test Item Value Reference Range Interpretation Comments GLUCOSE BEDSIDE TESTING (test code 131 MG/DL 60-99 H = GLUBED) GLUCOSE BEDSIDE [id number] 17:41:00 Test Item Value Reference Range Interpretation Comments GLUCOSE BEDSIDE TESTING (test code 207 MG/DL 60-99 H = GLUBED) GLUCOSE BEDSIDE [id number] 11:29:00 Test Item Value Reference Range Interpretation Comments GLUCOSE BEDSIDE TESTING (test code 199 MG/DL 60-99 H = GLUBED) GLUCOSE BEDSIDE [id number] 08:34:00 Test Item Value Reference Range Interpretation Comments GLUCOSE BEDSIDE TESTING (test code 183 MG/DL 60-99 H = GLUBED) GLUCOSE BEDSIDE [id number] 20:33:00 Test Item Value Reference Range Interpretation Comments GLUCOSE BEDSIDE TESTING (test code 153 MG/DL 60-99 H = GLUBED) GLUCOSE BEDSIDE [id number] 16:33:00 Test Item Value Reference Range Interpretation Comments GLUCOSE BEDSIDE TESTING (test code 180 MG/DL 60-99 H = GLUBED) GLUCOSE BEDSIDE [id number] 12:12:00 Test Item Value Reference Range Interpretation Comments GLUCOSE BEDSIDE TESTING (test code 232 MG/DL 60-99 H = GLUBED) GLUCOSE BEDSIDE [id number] 07:35:00 Test Item Value Reference Range Interpretation Comments GLUCOSE BEDSIDE TESTING (test code 176 MG/DL 60-99 H = GLUBED) BASIC METABOLIC [id number] 05:52:00 Test Item Value Reference Range Interpretation [...] code = 7.7 MG/DL 8.4-10.2 L CA) [id number] 05:52:00 Test Item Value Reference Range Interpretation Comments MAGNESIUM (test code = MAG) 2.1 MG/DL 1.6-2.3 N CBC W/AUTO [id number] 05:42:00 Test Item Value Reference Range Interpretation [...] 0.00 K/mm3 0.0-0.1 N NRBC#) GLUCOSE BEDSIDE [id number] 21:00:00 Test Item Value Reference Range Interpretation Comments GLUCOSE BEDSIDE TESTING (test code 193 MG/DL 60-99 H = GLUBED) GLUCOSE BEDSIDE [id number] 17:25:00 Test Item Value Reference Range Interpretation Comments GLUCOSE BEDSIDE TESTING (test code 141 MG/DL 60-99 H = GLUBED) GLUCOSE BEDSIDE [id number] 12:25:00 Test Item Value Reference Range Interpretation Comments GLUCOSE BEDSIDE TESTING (test code 172 MG/DL 60-99 H = GLUBED) GLUCOSE BEDSIDE [id number] 07:16:00 Test Item Value Reference Range Interpretation Comments GLUCOSE BEDSIDE TESTING (test code 169 MG/DL 60-99 H = GLUBED) [id number] 04:58:00 Test Item Value Reference Range Interpretation Comments DIGOXIN (test code = DIG) 0.7 NG/ML 0.8-2.0 L COMPREHENSIVE METABOLIC [id number] 04:54:00 Test Item Value Reference Range Interpretation [...] PHOSPHATASE (test code = ALKP) CBC W/AUTO [id number] 04:51:00 Test Item Value Reference Range Interpretation [...] 0.02 K/mm3 0.0-0.1 N NRBC#) GLUCOSE BEDSIDE [id number] 23:43:00 Test Item Value Reference Range Interpretation Comments GLUCOSE BEDSIDE TESTING (test code 165 MG/DL 60-99 H = GLUBED) GLUCOSE BEDSIDE [id number] 17:32:00 Test Item Value Reference Range Interpretation Comments GLUCOSE BEDSIDE TESTING (test code 133 MG/DL 60-99 H = GLUBED) GLUCOSE BEDSIDE [id number] 17:24:00 Test Item Value Reference Range Interpretation Comments GLUCOSE BEDSIDE TESTING (test code 264 MG/DL 60-99 H = GLUBED) BASIC METABOLIC [id number] 09:21:00 Test Item Value Reference Range Interpretation [...] 7.5 MG/DL 8.4-10.2 L CA) HEPATIC FUNCTION [id number] 09:21:00 Test Item Value Reference Range Interpretation [...] Concentration C oncentration Concentration== ====TBil 7mg/dl TBil/ 1 .2mg/dl +0.23mg.dl +0.2 0mg/dlBuBc 3.5mg/dl Bu/0.8 mg/dl +0.25mg/dl +0.2 4mg/dlBuBc 7 mg/dl Bu/14.2mg /dl +0.38mg/dl +0.2 5mg/dlBuBc 5mg/dl Bc/0mg/d l +0.25mg/dl +0.1 5mg/dlBuBc 3.5mg/dl Bc/2.8 mg/dl +0.25mg/dl +0.2 3mg/dl BILIRUBIN DIRECT 0.0 MG/DL 0.0-0.3 N Eltrombopag [...] PHOSPHATASE (test code = ALKP) GLUCOSE BEDSIDE [id number] 07:58:00 Test Item Value Reference Range Interpretation Comments GLUCOSE BEDSIDE TESTING (test code 188 MG/DL 60-99 H = GLUBED) LACTIC [id number] 05:26:00 Test Item Value Reference Range Interpretation Comments LACTIC ACID (test code = LACT) 0.9 MMOL/L 0.7-2.1 N CBC W/AUTO [id number] 05:23:00 Test Item Value Reference Range Interpretation [...] 0.00 K/mm3 0.0-0.1 N NRBC#) GLUCOSE BEDSIDE [id number] 21:14:00 Test Item Value Reference Range Interpretation Comments GLUCOSE BEDSIDE TESTING (test code 178 MG/DL 60-99 H = GLUBED) GLUCOSE BEDSIDE [id number] 17:54:00 Test Item Value Reference Range Interpretation Comments GLUCOSE BEDSIDE TESTING (test code 184 MG/DL 60-99 H = GLUBED) GLUCOSE BEDSIDE [id number] 11:30:00 Test Item Value Reference Range Interpretation Comments GLUCOSE BEDSIDE TESTING (test code 211 MG/DL 60-99 H = GLUBED) - XR CHEST [id number] 08:20:00 [facility] 1940 Sex: M Patient Name: COLE JEFFREY Unit No: [id number] EXAMS: CPT CODE: [id number] XR CHEST 1V 17833 HISTORY: Status post CABG Comparison April 03, 2021 Location code: B2 FINDINGS: Frontal view of the chest demonstrates an enlarged cardiomediastinal silhouette, with central venous congestion. The trachea is midline. Mild layering left effusion with atelectasis. No pneumothorax. Right subclavian catheter in good position. The bones are intact. Median sternotomy wires. IMPRESSION: Mild cardiomegaly andcentral venous congestion with a layering left effusion and atelectasis at 0820 Reported and signed by: Glen Garay M.D. CC: Noni Marquez MD; Aisha Lucas MD Technologist: Araceli Patrick, RT(R) Transcrpt Date/Tm/Trnsp: 04/04/2021 (0820) [id number] Orig Print D/T: S: 04/04/2021 (0823) [facility] NAME: COLE JEFFREY [place] [address] PHYS: [place] [address] : 1940 AGE: 81 SEX: M [facility] [id number] LOC: Z.SI02 A PHONE #: [phone] EXAM DATE: 04/04/2021 STATUS: ADM IN FAX #: [phone] RADIOLOGY NO: PAGE 1 Signed ReportGLUCOSE BEDSIDE [id number] 07:36:00 Test Item Value Reference Range Interpretation Comments GLUCOSE BEDSIDE TESTING (test code 176 MG/DL 60-99 H = GLUBED) GLUCOSE BEDSIDE [id number] 21:45:00 Test Item Value Reference Range Interpretation Comments GLUCOSE BEDSIDE TESTING (test code 184 MG/DL 60-99 H = GLUBED) GLUCOSE BEDSIDE [id number] 17:51:00 Test Item Value Reference Range Interpretation Comments GLUCOSE BEDSIDE TESTING (test code 159 MG/DL 60-99 H = GLUBED) - XR CHEST [id number] 13:23:00 [facility] : 1940 Sex: M Patient Name: COLE JEFFREY Unit No: [id number] EXAMS: CPT CODE: [id number] XR CHEST 1V 80076 EXAMINATION: - XR CHEST 1V. LOCATION: B2. HISTORY: CHEST TUBE REMOVAL. COMPARISON: Radiograph of sameday at 0609 hours. TECHNIQUE: Single AP view [...] Bhatt (RT) (R) Transcrpt Date/Tm/Trnsp: 04/03/2021 (1323) t.SDR.[email or web address] Orig Print D/T: S: 04/03/2021 (1326) [facility] NAME: COLE JEFFREY [place] [address] PHYS: [place] [address] : 1940 AGE: 81 SEX: M LOC: [id number] A PHONE #: [phone] EXAM DATE: 04/03/2021 STATUS: ADM IN FAX #: [phone] RADIOLOGY NO: PAGE 1 Signed ReportGLUCOSE BEDSIDE [id number] 12:15:00 Test Item Value Reference Range Interpretation Comments GLUCOSE BEDSIDE TESTING (test code 278 MG/DL 60-99 H = GLUBED) HGB [id number] 09:25:00 Test Item Value Reference Range Interpretation Comments HEMOGLOBIN (test code = HGB) 8.2 G/DL 12.4-16.7 L HEMATOCRIT (test code = HCT) 24.8 % 35.9-49.5 L [id number] 09:05:00 Test Item Value Reference Range Interpretation Comments POTASSIUM (test code = K) 4.3 MMOL/L 3.5-5.1 N [id number] 09:05:00 Test Item Value Reference Range Interpretation Comments CALCIUM (test code = CA) 7.8 MG/DL 8.4-10.2 L [id number] 09:05:00 Test Item Value Reference Range Interpretation Comments MAGNESIUM (test code = MAG) 2.4 MG/DL 1.6-2.3 H - XR CHEST [id number] 07:58:00 [facility] 1940 Sex: M Patient Name: COLE JEFFREY Unit No: [id number] EXAMS: CPT CODE: [id number] XR CHEST 1V [id number] EXAMINATION: Frontal chest radiograph INDICATION: S/P CABG COMPARISON: Previous day LOCATION: S17 FINDINGS/ IMPRESSION: Subclavian catheter terminates at SVC. Unchanged enlarged cardiac silhouette. No significant change in mild bibasilar interstitial edema or pneumonia and trace left pleural effusion. No pneumothorax. at 0758 Reported and signed by: Kwame Calloway MD CC: Noni Marquez MD; Aisha Lucas MD Technologist: Miriam Herman Transcrpt Date/Tm/Trnsp: 04/03/2021 (0758) [email or web address] Orig Print D/T: S: 04/03/2021 (0801) [facility] NAME: COLE JEFFREY [address] PHYS: [place] [address] : 1940 AGE: 81 SEX: M LOC: Z.SI02 A PHONE #: [phone] EXAM DATE: 04/03/2021 STATUS: ADM IN FAX #: [phone] RADIOLOGY NO: PAGE 1 Signed ReportGLUCOSE BEDSIDE [id number] 07:31:00 Test Item Value Reference Range Interpretation Comments GLUCOSE BEDSIDE TESTING (test code 258 MG/DL 60-99 H = GLUBED) [id number] 00:10:00 Test Item Value Reference Range Interpretation Comments POTASSIUM (test code = K) 4.3 MMOL/L 3.5-5.1 N [id number] 00:10:00 Test Item Value Reference Range Interpretation Comments CALCIUM (test code = CA) 7.4 MG/DL 8.4-10.2 L [id number] 00:10:00 Test Item Value Reference Range Interpretation Comments MAGNESIUM (test code = MAG) 2.4 MG/DL 1.6-2.3 H GLUCOSE BEDSIDE [id number] 20:35:00 Test Item Value Reference Range Interpretation Comments GLUCOSE BEDSIDE TESTING (test code 179 MG/DL 60-99 H = GLUBED) GLUCOSE BEDSIDE [id number] 16:32:00 Test Item Value Reference Range Interpretation Comments GLUCOSE BEDSIDE TESTING (test code 196 MG/DL 60-99 H = GLUBED) GLUCOSE BEDSIDE [id number] 11:12:00 Test Item Value Reference Range Interpretation Comments GLUCOSE BEDSIDE TESTING (test code 184 MG/DL 60-99 H = GLUBED) - XR CHEST [id number] 08:17:00 [facility] 1940 Sex: M Patient Name: COLE JEFFREY Unit No: [id number] EXAMS: CPT CODE: [id number] XR CHEST 1V 68579 EXAM: CHEST ONE VIEW INDICATION: S/P CABG LOCATION: B2 COMPARISON: April 01, 2021 TECHNIQUE: AP view of the chest FINDINGS: The right internal jugular catheter has been removed. There is a right centralvenous catheter in similar position. The heart size is enlarged. There is evidence of prior thoracicsurgery. There are diffuse congestive changes bilaterally. There are trace bilateral pleural effusions. No pneumothorax. The osseous structures are normal. IMPRESSION: Cardiomegaly with diffuse congestive changes bilaterally. No pneumothorax. at 0817 Reported and signed by: Eleanor Pablo MD CC: Noni Marquez MD; Aisha Lucas MD Technologist: Miriam Herman Transcrpt Date/Tm/Trnsp: 04/02/2021 (0817) [id number] Orig Print D/T: S: 04/02/2021 (8145) [facility] NAME: COLE JEFFREY [address] PHYS: [place] [address] : 1940 AGE: 81 SEX: M LOC: Z.SI02 A PHONE #: [phone] EXAM DATE: 04/02/2021 STATUS: ADM IN FAX #: [phone] RADIOLOGY NO: PAGE 1 Signed ReportBASIC METABOLIC [id number] 08:15:00 Test Item Value Reference Range Interpretation [...] Is this a LINE draw? YCBC W/AUTO [id number] 08:08:00 Test Item Value Reference Range Interpretation [...] 0.00 K/mm3 0.0-0.1 N NRBC#) GLUCOSE BEDSIDE [id number] 08:06:00 Test Item Value Reference Range Interpretation Comments GLUCOSE BEDSIDE TESTING (test code 166 MG/DL 60-99 H = GLUBED) GLUCOSE BEDSIDE [id number] 20:49:00 Test Item Value Reference Range Interpretation Comments GLUCOSE BEDSIDE TESTING (test code 181 MG/DL 60-99 H = GLUBED) GLUCOSE BEDSIDE [id number] 14:21:00 Test Item Value Reference Range Interpretation Comments GLUCOSE BEDSIDE TESTING (test code 124 MG/DL 60-99 H = GLUBED) GLUCOSE BEDSIDE [id number] 11:44:00 Test Item Value Reference Range Interpretation Comments GLUCOSE BEDSIDE TESTING (test code 117 MG/DL 60-99 H = GLUBED) - XR CHEST [id number] 08:26:00 [facility] : 1940 Sex: M Patient Name: COLE JEFFREY Unit No: [id number] EXAMS: CPT CODE: [id number] XR CHEST 1V 17264 REASON FOR EXAM: CABG. COMPARISON: March 31, 2021. Chest, portable single frontal view. The patient has been extubated with the NG tube removed. Right subclavian line and [place]-Cyrus catheter in good position. The lungs are well-inflated with atelectasis and postoperative changes on the left. Mild interstitial changes could indicate mild interstitial edema. Heart size is enlarged median sternotomy wires. No right effusion or pneumothorax can be seen. Osseous structures appear to be intact. IMPRESSION:Remaining support lines intact. Postop changes of CABG with atelectasis at the left lower lung field. Cardiomegaly with mild vascular congestion. Location: [facility] at 0826 Reported and signed by: MARCELLO POLLOCK MD CC: Noni Marquez MD; Santana Rust Technologist: Miriam Herman Transcrpt Date/Tm/Trnsp: 04/01/2021 (825) UrmilaSP46Bdor Print D/T: S: 04/01/2021 (0829) [facility] NAME: COLE JEFFREY [address] [place] [address] PHYS: [place] [address] : 1940 AGE: 81 SEX: M LOC: Z.SI02 A PHONE #: [phone] EXAM DATE: 04/01/2021 STATUS: ADM IN FAX #: [phone] RADIOLOGY NO: PAGE 1 Signed ReportGLUCOSE BEDSIDE [id number] 07:50:00 Test Item Value Reference Range Interpretation Comments GLUCOSE BEDSIDE TESTING (test code 180 MG/DL 60-99 H = GLUBED) GLUCOSE BEDSIDE [id number] 06:00:00 Test Item Value Reference Range Interpretation Comments GLUCOSE BEDSIDE TESTING (test code 148 MG/DL 60-99 H = GLUBED) BASIC METABOLIC [id number] 04:42:00 Test Item Value Reference Range Interpretation [...] code = 7.6 MG/DL 8.4-10.2 L CA) [id number] 04:42:00 Test Item Value Reference Range Interpretation Comments MAGNESIUM (test code = MAG) 3.0 MG/DL 1.6-2.3 H CBC W/AUTO [id number] 04:24:00 Test Item Value Reference Range Interpretation [...] 0.00 K/mm3 0.0-0.1 N NRBC#) GLUCOSE BEDSIDE [id number] 04:06:00 Test Item Value Reference Range Interpretation Comments GLUCOSE BEDSIDE TESTING (test code 157 MG/DL 60-99 H = GLUBED) GLUCOSE BEDSIDE [id number] 01:24:00 Test Item Value Reference Range Interpretation Comments GLUCOSE BEDSIDE TESTING (test code 158 MG/DL 60-99 H = GLUBED) GLUCOSE BEDSIDE [id number] 23:16:00 Test Item Value Reference Range Interpretation Comments GLUCOSE BEDSIDE TESTING (test code 163 MG/DL 60-99 H = GLUBED) GLUCOSE BEDSIDE [id number] 22:03:00 Test Item Value Reference Range Interpretation Comments GLUCOSE BEDSIDE TESTING (test code 162 MG/DL 60-99 H = GLUBED) GLUCOSE BEDSIDE [id number] 21:38:00 Test Item Value Reference Range Interpretation Comments GLUCOSE BEDSIDE TESTING (test code 201 MG/DL 60-99 H = GLUBED) GLUCOSE BEDSIDE [id number] 19:19:00 Test Item Value Reference Range Interpretation Comments GLUCOSE BEDSIDE TESTING (test code 205 MG/DL 60-99 H = GLUBED) GLUCOSE BEDSIDE [id number] 18:43:00 Test Item Value Reference Range Interpretation Comments GLUCOSE BEDSIDE TESTING (test code 207 MG/DL 60-99 H = GLUBED) GLUCOSE BEDSIDE [id number] 17:34:00 Test Item Value Reference Range Interpretation Comments GLUCOSE BEDSIDE TESTING (test code 191 MG/DL 60-99 H = GLUBED) PROTHROMBIN [id number] 16:41:00 Test Item Value Reference Range Interpretation [...] myocar dial infarction. 2.0 - 3.0 3. Neonatal Nurse Practitioner al prosthesis hear t valves, recurre nt systemic emboli sm. 3.0 - 4.5 PTT [id number] 16:41:00 Test Item Value Reference Range Interpretation Comments PTT ACTIVATED (test code = APTT) 24.6 SECONDS 25.1-36.5 L GLUCOSE BEDSIDE [id number] 16:31:00 Test Item Value Reference Range Interpretation Comments GLUCOSE BEDSIDE TESTING (test code 192 MG/DL 60-99 H = GLUBED) GLUCOSE BEDSIDE [id number] 16:30:00 Test Item Value Reference Range Interpretation Comments GLUCOSE BEDSIDE TESTING (test code 207 MG/DL 60-99 H = GLUBED) BASIC METABOLIC [id number] 16:25:00 Test Item Value Reference Range Interpretation [...] code = 7.2 MG/DL 8.4-10.2 L CA) [id number] 16:25:00 Test Item Value Reference Range Interpretation Comments MAGNESIUM (test code = MAG) 3.7 MG/DL 1.6-2.3 H CBC W/AUTO [id number] 16:10:00 Test Item Value Reference Range Interpretation [...] 0.00 K/mm3 0.0-0.1 N NRBC#) ARTERIAL BLOOD [id number] 15:50:00 Test Item Value Reference Range Interpretation [...] o and readback by DR. GARVIN by [id number] at 03/31/2021 3:40 :57 PM ABG DELIVERY [...] 0.4-1.5 L = METHGB) - XR CHEST [id number] 15:41:00 [facility] : 1940 Sex: M Patient Name: COLE JEFFREY Unit No: [id number] EXAMS: CPT CODE: [id number] XR CHEST 1V 33069 EXAM: CHEST ONE VIEW INDICATION: S/P CABG LOCATION: B2 COMPARISON: March 30, 2021 TECHNIQUE: AP view of the chest FINDINGS: Tip of the endotracheal tube is 3.3 cm above the cristhian. The enteric tube tip crosses the diaphragm. The right-sided [place]-Cyrus catheter is seen in appropriate position. The [...] Eleanor Pablo MD CC: Noni Marquez MD; Ovid Barrera Technologist: RT Nazario(R) Transcrpt Date/Tm/Trnsp: 03/31/2021 (1541) 16 Orig Print D/T: S: 03/31/2021 (1721) [facility] NAME: COLE JEFFREY [address] PHYS: [place] [address] : 1940 AGE: 81 SEX: M LOC: Z.SI02 A PHONE #: [phone] EXAM DATE: 03/31/2021 STATUS: ADM IN FAX #: [phone] RADIOLOGY NO: PAGE 1 Signed ReportBASIC METABOLIC [id number] 15:24:00 Test Item Value Reference Range Interpretation [...] CA) PLEASE CALL RESULTS TO PHONE #: [phone] STATPROTHROMBIN [id number] 15:09:00 Test Item Value Reference Range Interpretation [...] myocar dial infarction. 2.0 - 3.0 3. Neonatal Nurse Practitioner al prosthesis hear t valves, recurre nt systemic emboli sm. 3.0 - 4.5 PLEASE CALL RESULTS TO PHONE #: [phone] STATPTT [id number] 15:09:00 Test Item Value Reference Range Interpretation Comments PTT ACTIVATED (test code = APTT) 29.9 SECONDS 25.1-36.5 PLEASE CALL RESULTS TO PHONE #: [phone] STATCBC W/AUTO [id number] 14:55:00 Test Item Value Reference Range Interpretation [...] NRBC#) PLEASE CALL RESULTS TO PHONE #: [phone] [facility] ARTERIAL BLOOD [id number] 14:43:00 Test Item Value Reference Range Interpretation Comments POC ARTERIAL BLOOD GAS PH 7.366 7.35-7.45 N (test code = POCPHA) POC ARTERIAL BLOOD GAS PCO2 39.5 mmHg 35.0-45.0 N (test code = ZPBTDU0I) POC ARTERIAL BLOOD GAS PO2 550.9 75.0-100.0 HH (test code = RJCJK5H) POC HCO3 ARTERIAL (test 22.6 MMOL/L 20.0-26.0 N code = VKXLSK7Z) POC BASE EXCESS (test code -2.6 MMOL/L -3.0-3.0 N = POCBEA) POC O2 SATURATION (test 100.0 % 92.0-98.5 H code = POCO2S) FIO2 (test code = FIO2A) 100 % 21-100 PaO2/FiO2 (test code = 550.90 mm/Hg CZN4YHD9) SODIUM (test code = NA/ABG) 141 MMOL/L [...] 0.7-2.0 HH = LACTP) POC ARTERIAL BLOOD [id number] 13:41:00 Test Item Value Reference Range Interpretation Comments POC ARTERIAL BLOOD GAS PH 7.377 7.35-7.45 N (test code = POCPHA) POC ARTERIAL BLOOD GAS PCO2 41.9 mmHg 35.0-45.0 N (test code = WKWNGL2J) POC ARTERIAL BLOOD GAS PO2 421.6 75.0-100.0 HH (test code = CBTJF3N) POC HCO3 ARTERIAL (test 24.6 MMOL/L 20.0-26.0 N code = PIKABN1S) POC BASE EXCESS (test code -0.6 MMOL/L -3.0-3.0 N = POCBEA) POC O2 SATURATION (test 100.0 % 92.0-98.5 H code = POCO2S) FIO2 (test code = FIO2A) 90 % 21-100 N PaO2/FiO2 (test code = 468.44 mm/Hg OBJ6WEO9) SODIUM (test code = NA/ABG) 137 MMOL/L [...] 0.7-2.0 HH = LACTP) POC ARTERIAL BLOOD [id number] 13:08:00 Test Item Value Reference Range Interpretation Comments POC ARTERIAL BLOOD GAS PH 7.386 7.35-7.45 N (test code = POCPHA) POC ARTERIAL BLOOD GAS PCO2 36.8 mmHg 35.0-45.0 N (test code = JKOJHK5L) POC ARTERIAL BLOOD GAS PO2 437.8 75.0-100.0 HH (test code = HIMQQ8N) POC HCO3 ARTERIAL (test 22.1 MMOL/L 20.0-26.0 N code = PTTLBW9A) POC BASE EXCESS (test code -2.6 MMOL/L -3.0-3.0 N = POCBEA) POC O2 SATURATION (test 100.0 % 92.0-98.5 H code = POCO2S) FIO2 (test code = FIO2A) 90 % 21-100 PaO2/FiO2 (test code = 486.44 mm/Hg OEE1ALE5) SODIUM (test code = NA/ABG) 135 MMOL/L [...] 0.7-2.0 HH = LACTP) POC ARTERIAL BLOOD [id number] 12:33:00 Test Item Value Reference Range Interpretation Comments POC ARTERIAL BLOOD GAS PH 7.332 7.35-7.45 L (test code = POCPHA) POC ARTERIAL BLOOD GAS PCO2 44.3 mmHg 35.0-45.0 N (test code = OICQRV2J) POC ARTERIAL BLOOD GAS PO2 572.1 75.0-100.0 HH (test code = UQATT2U) POC HCO3 ARTERIAL (test 23.4 MMOL/L 20.0-26.0 N code = TQPMTN7L) POC BASE EXCESS (test code -2.4 MMOL/L -3.0-3.0 N = POCBEA) POC O2 SATURATION (test 100.0 % 92.0-98.5 H code = POCO2S) FIO2 (test code = FIO2A) 80 % 21-100 PaO2/FiO2 (test code = 715.12 mm/Hg RQH5WMZ7) SODIUM (test code = NA/ABG) 139 MMOL/L [...] 0.7-2.0 HH = LACTP) POC ARTERIAL BLOOD [id number] 12:07:00 Test Item Value Reference Range Interpretation Comments POC ARTERIAL BLOOD GAS PH 7.341 7.35-7.45 L (test code = POCPHA) POC ARTERIAL BLOOD GAS PCO2 37.8 mmHg 35.0-45.0 N (test code = WMCFOJ5M) POC ARTERIAL BLOOD GAS PO2 561.7 75.0-100.0 HH (test code = LQJEC0P) POC HCO3 ARTERIAL (test 20.5 MMOL/L 20.0-26.0 N code = FXZITJ1W) POC BASE EXCESS (test code -4.8 MMOL/L -3.0-3.0 L = POCBEA) POC O2 SATURATION (test 100.0 % 92.0-98.5 H code = POCO2S) FIO2 (test code = FIO2A) 100 % 21-100 PaO2/FiO2 (test code = 561.70 mm/Hg IFL7EEA1) SODIUM (test code = NA/ABG) 135 MMOL/L [...] mmol/L 0.7-2.0 HH = LACTP) BASIC METABOLIC [id number] 11:56:00 Test Item Value Reference Range Interpretation [...] CA) PLEASE CALL RESULTS TO PHONE #: [phone] [facility] ARTERIAL BLOOD [id number] 11:25:00 Test Item Value Reference Range Interpretation Comments POC ARTERIAL BLOOD GAS PH 7.260 7.35-7.45 LL (test code = POCPHA) POC ARTERIAL BLOOD GAS PCO2 54.3 mmHg 35.0-45.0 HH (test code = OPRDWH1E) POC ARTERIAL BLOOD GAS PO2 471.3 75.0-100.0 HH (test code = DCJTQ8Z) POC HCO3 ARTERIAL (test 24.4 MMOL/L 20.0-26.0 N code = XZIRRI2K) POC BASE EXCESS (test code -3.2 MMOL/L -3.0-3.0 L = POCBEA) POC O2 SATURATION (test 100.0 % 92.0-98.5 H code = POCO2S) FIO2 (test code = FIO2A) 90 % 21-100 PaO2/FiO2 (test code = 523.66 mm/Hg BFG4HHT0) SODIUM (test code = NA/ABG) 141 MMOL/L [...] mmol/L 0.7-2.0 HH = LACTP) CBC W/AUTO [id number] 09:49:00 Test Item Value Reference Range Interpretation [...] NRBC#) PLEASE CALL RESULTS TO PHONE #: [phone] [facility] ARTERIAL BLOOD [id number] 09:41:00 Test Item Value Reference Range Interpretation Comments POC ARTERIAL BLOOD GAS PH 7.362 7.35-7.45 N (test code = POCPHA) POC ARTERIAL BLOOD GAS PCO2 45.4 mmHg 35.0-45.0 H (test code = KQEAZM6W) POC ARTERIAL BLOOD GAS PO2 479.4 75.0-100.0 HH (test code = JZXLE3W) POC HCO3 ARTERIAL (test 25.8 MMOL/L 20.0-26.0 N code = STAYIG6D) POC BASE EXCESS (test code 0.0 MMOL/L -3.0-3.0 N = POCBEA) POC O2 SATURATION (test 100.0 % 92.0-98.5 H code = POCO2S) FIO2 (test code = FIO2A) 100 % 21-100 N PaO2/FiO2 (test code = 479.40 mm/Hg MQU0FDT1) SODIUM (test code = NA/ABG) 140 MMOL/L [...] 0.7-2.0 N = LACTP) POC ARTERIAL BLOOD [id number] 07:59:00 Test Item Value Reference Range Interpretation Comments POC ARTERIAL BLOOD GAS PH 7.387 7.35-7.45 N (test code = POCPHA) POC ARTERIAL BLOOD GAS PCO2 42.8 mmHg 35.0-45.0 N (test code = GANRMK8X) POC ARTERIAL BLOOD GAS PO2 76.2 75.0-100.0 N (test code = BZHTA8A) POC HCO3 ARTERIAL (test 25.8 MMOL/L 20.0-26.0 N code = KOVCGD5P) POC BASE EXCESS (test code 0.5 MMOL/L [...] mmol/L 0.7-2.0 L = LACTP) GLUCOSE BEDSIDE [id number] 19:10:00 Test Item Value Reference Range Interpretation Comments GLUCOSE BEDSIDE TESTING (test code 246 MG/DL 60-99 H = GLUBED) GLUCOSE BEDSIDE [id number] 16:13:00 Test Item Value Reference Range Interpretation Comments GLUCOSE BEDSIDE TESTING (test code 121 MG/DL 60-99 H = GLUBED) HIV 12 AB [id number] 13:25:00 Test Item Value Reference Range Interpretation Comments HIV 1 2 COMBO AG/AB SCREEN AB/AG NON REACTIVE NONREACTIVE (test code = [id number]) GLYCOSYLATED HEMOGLOBIN [id number] 12:53:00 Test Item Value Reference Range Interpretation Comments GLYCOSYLATED 6.1 % 4.8-5.9 H Any condition t hat HEMOGLOBIN (HA1C) shortens e rythocyte (test code = survival or dec reasesmean GLYHGB) erythrocyte age (e.g., recovery from a cute blood loss,hemolytic anemia) will falsely lo wer HGBA1c resultsregardle ss of the method used. HG BA1c results from telma rahman HbSS, HbCC, and [...] (test code = MBG) PLT RESPONSE TO [id number] 11:57:00 Test Item Value Reference Range Interpretation [...] had fewer adver se events. GLUCOSE BEDSIDE [id number] 11:45:00 Test Item Value Reference Range Interpretation Comments GLUCOSE BEDSIDE TESTING (test code 109 MG/DL 60-99 H = GLUBED) COMPREHENSIVE METABOLIC [id number] 10:55:00 Test Item Value Reference Range Interpretation [...] not done in the last 72 hoursPROTHROMBIN [id number] 10:53:00 Test Item Value Reference Range Interpretation [...] dial infarction. 2. 0 - 3.0 3. Neonatal Nurse Practitioner al prosthesis hear t valves, recurre nt systemic emboli sm. 3.0 - 4.5 PTT [id number] 10:53:00 Test Item Value Reference Range Interpretation Comments PTT ACTIVATED (test code = APTT) 39.4 SECONDS 25.1-36.5 H CBC W/AUTO [id number] 10:44:00 Test Item Value Reference Range Interpretation [...] in the last 72 hours- XR CHEST [id number] 10:33:00[facility] : 1940 Sex: M Patient Name: COLE JEFFREY Unit No: [id number] EXAMS: CPT CODE: [id number] XR CHEST 1V 79082 EXAM: CHEST ONE VIEW INDICATION: Cardiac/Heart Surgery LOCATION: B2 COMPARISON: None available TECHNIQUE: AP view of the chest FINDINGS: The heart size is enlarged. There are mild congestive changes bilaterally. No pneumothorax or pleural effusion is identified. The osseous structures are normal. IMPRES JETT: Cardiomegaly with mild congestive changes bilaterally. at 1033 Reported and signed by: Eleanor Pablo MD CC: Noni Marquez MD; Santana Rust; Annel HOLLIS Technologist: KAREL Reid, RT(R) Transcrpt Date/Tm/Trnsp: 03/30/2021 (1033) [id number] Orig Print D/T: S: 03/30/2021 (1036) [facility] NAME: COLE JEFFREY [address] PHYS: [place] [address] : 1940 AGE: 81 SEX: M LOC: Z.364 A PHONE #: [phone] EXAM DATE: 03/30/2021 STATUS: ADM IN FAX #: [phone] RADIOLOGY NO: PAGE 1 Signed ReportGLUCOSE BEDSIDE [id number] 07:45:00 Test Item Value Reference Range Interpretation Comments GLUCOSE BEDSIDE TESTING (test code 115 MG/DL 60-99 H = GLUBED) GLUCOSE BEDSIDE [id number] 20:51:00 Test Item Value Reference Range Interpretation Comments GLUCOSE BEDSIDE TESTING (test code 148 MG/DL 60-99 H = GLUBED) GLUCOSE BEDSIDE [id number] 15:50:00 Test Item Value Reference Range Interpretation Comments GLUCOSE BEDSIDE TESTING (test code = 72 MG/DL 60-99 N GLUBED) GLUCOSE BEDSIDE [id number] 11:03:00 Test Item Value Reference Range Interpretation Comments GLUCOSE BEDSIDE TESTING (test code 156 MG/DL 60-99 H = GLUBED) GLUCOSE BEDSIDE [id number] 07:51:00 Test Item Value Reference Range Interpretation Comments GLUCOSE BEDSIDE TESTING (test code 111 MG/DL 60-99 H = GLUBED) [id number] 05:33:00 Test Item Value Reference Range Interpretation Comments PHOSPHOROUS (test code = PHOS) 3.1 MG/DL 2.5-4.5 N [id number] 05:33:00 Test Item Value Reference Range Interpretation Comments MAGNESIUM (test code = MAG) 2.1 MG/DL 1.6-2.3 N BASIC METABOLIC [id number] 05:12:00 Test Item Value Reference Range Interpretation [...] 8.4 MG/DL 8.4-10.2 N CA) CBC W/AUTO [id number] 04:54:00 Test Item Value Reference Range Interpretation [...] 0.00 K/mm3 0.0-0.1 N NRBC#) GLUCOSE BEDSIDE [id number] 21:32:00 Test Item Value Reference Range Interpretation [...] 0-189 mg/dL VERY HIGH.........>/ = 190 mg/dL [id number] 07:07:00 Test Item Value Reference Range Interpretation Comments MAGNESIUM (test code = MAG) 2.2 MG/DL 1.6-2.3 N BASIC METABOLIC [id number] 07:07:00 Test Item Value Reference Range Interpretation [...] = 9.1 MG/DL 8.4-10.2 N CA) PROTHROMBIN [id number] 06:48:00 Test Item Value Reference Range Interpretation [...] myocar dial infarction. 2.0 - 3.0 3. Neonatal Nurse Practitioner al prosthesis hear t valves, recurre nt systemic emboli sm. 3.0 - 4.5 PTT [id number] 06:48:00 Test Item Value Reference Range Interpretation Comments PTT ACTIVATED (test code = APTT) 34.6 SECONDS 25.1-36.5 N CBC W/AUTO [id number] 06:38:00 Test Item Value Reference Range Interpretation [...] 0.0-0.1 N NRBC#) COVID 19 Asymptomatic IH [id number] 05:30:00 Test Item Value Reference Range Interpretation [...] to Phleb: PLS RUN TEST [place]. THANKSPOC-Glucose [id number] 09:30:00 Test Item Value Reference Range Interpretation Comments POC-Glucose Meter (test 121 mg/dL 70-110 H : TE STED AT [facility] code = 1538) [address] [facility], 770 30: Pulp Drier Firer/Techni nan ID = [id number] for CHARLIE MEDINA Lab Interpretation (test Abnormal code = 15339-9) [facility] [id number] 09:30:00 Test Item Value Reference Range Interpretation Comments POC-GLUCOSE METER 121 mg/dL 70-110 H : TESTED A T [facility] 6720 (BEAKER) (test code = TEJAL Avila [facility] [employer], 1538) [address]: Pulp Drier Firer/Techni nan ID = [id number] for ED LESLI WEISS SARS-CoV2/RT-PCR (Asymptomatic ONLY)2021-01-17 00:14:00 Test Item Value Reference Range Interpretation Comments SARS-COV2/RT-PCR (test Negative Negative code = 80294-4) ALANNA (test code = ALANNA) Negative result [...] the Act. Testing was performed using the [employer] SARS-CoV-2 assay. Fact Sheet for Healthcare Providers:https://www.saurabh hoangbobo/sarahi/RT SARS-CoV-2 HCP Fact Sheet 51-468184.pdf Fact Sheet for Healthcare Patients:https://www.armond Uber[employer]Kal[employer]/sarahi/RT SARS-CoV-2 Patient Fact Sheet EN 51-697245K6.pdf Lab Interpretation Normal (test code = 97644-2) [facility])2021-01-17 00:14:00 Test Item Value Reference Range Interpretation Comments SARS-COV2/RT-PCR (test code = Negative Negative 3093978) Negative result for this test determines that [...] 564(g) of the Act.Testing was performed using [employer] SARS-CoV-2 assay.Fact Sheet for Healthcare Providers:[email or web address]://[email or web address].[email or web address]/[email or web address]/RT SARS-CoV-2 HCP Fact Sheet 51- 005804.pdfFact Sheet for Healthcare Patients:[email or web address]://www.[employer]/[email or web address]/RT SARS-CoV-2 Patient Fact Sheet EN [id number].pdfBASIC METABOLIC [id number] 12:41:00 Test Item Value Reference Range Interpretation [...] S NOT APPLICABLE FOR DIALYSIS PATIEN TS. Pulp Drier Firer ID - KEDAR [id number] 12:13:00 Test Item Value Reference Range Interpretation Comments HEMOGLOBIN (BEAKER) (test code = 11.8 GM/DL 13.7-17.5 L 410) Pulp Drier Firer ID - CherylTissue [id number] 14:26:00 Test Item Value Reference Range Interpretation Comments Case Report (test code Surgical Pathology = 104) Report Case: [id number] Authorizing Provider: Fransisco Martinez DPM Collected: 12/08/2020 05:13 PM Ordering Location: [facility] Received: 12/09/2020 08:04 AM SERVICES Pathologist: Ksenia Gallego MD Specimen: Toe, Left, Left distal 2nd digit toe DIAGNOSIS (test code = [id number] 3220) uZzEwMzNcZnRuYmpcdWMxIH tccnRmMVxlcGljOTIwMlxhb yKoLIAvkWXeM1JlzcpxGQvf EX2aOZ5xyGnrfSQhsUPbCLA vGdMda7zsx100uNQzh5qmQY JQafmqgFe2uZobE63ow9E1F dfeX37okMMyWWbcuOTjqovp muWjRXCFL9KoTIsTJuRtMUR LR9BEOROjQsVbXPkQEWWvPA VLGLPEHSTMQ837ZOOdwbUuY AZJMHOGOaZOWfLyV6FPOzCS ISJAH25xWTpRD8AVZRLeuvZ vXWIQTgNUQp6NYnZPAUCUTY WGMNIVBeIVH0eCPXGMOUCHT kFOVUxBVElPTiBUSVNTVUUg VGXWYMEWE71OHD5FVLdkSPG vSY7zD7yJEcfwY07YYORHLY KVHYZnRB8RIFLJCoSiWYTEN 2tBReQRMlIzBL8ABO0FSvlP QkxFXHBhciAgLSBORUdBVEl IBXXIK9QoHTFHVBiCEU8RKT ufLESuIRcyRJK9a4puiLYcG HNzdGUxODAwMFxhbnNpXGRl RysvlulfKCAdJFI5izZfLLO eNUqjFVNeNMapZx8fvTMszD rsTmGhUFRva0dymrWXywxhr Ad1t4rrCFOhYeG2gJZyFNij V9ifgmTeqBVzHCHrLMs6aB1 6MCCklZ3yqKTtYMphnyLqCn G7MZvnVEVuSjS7AXWeqEQoN YFfX8dtHQKiOJxeJGShNOqz cDUqBTX9wYqcb6R7zOZryWH pyJpqOeIpBnOrCgXUm1DtDN g7aMraG0OiDSAsMdC1uIEqN GMoGXnkAZVgEWAkeuZ0oY66 ZZdetfB8vOWjw7App78ez83 8jH6mqDJmCMB9IDQeNEOmbC PhMVHzQFE2LBFhwISxF1psW CKnDQ3txyktPVjbSUkeOYWd aTX2YNMrlMExV8XkCTGzKUs zRRDqbtm3HfDrSd3seKEgiS ygHAlby9eau2iolRFeWhd3F XGlFmOqRelnDLfzk9Fly6cr JWBexm4aIRM9vQBayFzhg7U 1bGVwJDTrdOHqCHNmST0sgM SxGWGixI3urlknYTAyTmFrs abvCRWwrUlrrdPrKh9vwEmq XIW7UVovX6atcY0gMsU6MQs vW1iiwK6xEXh8BRqnBYDajU N2wnD3NOGwqAYzJ7NzsM1iI KBcXY9lrjj0z1inPKH6SJmr BHHsUyL9bpD8SHVfmMQnFHH lkMvcTCxix053BVM0RqNqNE Ehs8UtO2UumJkmS52urFiqC 01eXOBoaVvjwK3iqTgnxF0e PfWfTgVrXDndpRhiIB0zUEK iY6xlaAFkOWVzDRZlC9nmBv UotI4xhMvgUBiuaeUiDPCyA tk0HDNsdAHtTAGxDas9TCVv VSOnD75rltcoOIC0eN1yj8e oz1PjDKliPSR1ATJtf99aCB zbspP0UZoaYj5wLTMuFOQkT YggJAR9xN== COMMENT (test code = r5ufyXGqKPBswXB6OiXpGKE 3359) ik5tos8RbpHJciNBbNTrdcV NufaIfyo96mGK6dM69HO1nL LBhOpK3TFHoqdP2Tfr3OPNk UJCccGNkT022f7eok5bbngA lkPB0aQerBYPvBXQdZWvaKJ UiCvGgV00xg5gsoHHaeVT1i JIpMGGhto0yiPCth2W7WN8r lLFycTSufd7bBCW9eSBoy3D 3YU2xuYUozUAqfeOkaoEqw7 PlSPLflW1ftLFuoJPrfyBhB E86NZuhHHUgwWEkf0CucQdj blxwYXJ9 CPT Code(s) (test code f6hbqMLbYJNbgJV5MgLhDBI = 3357) ln0ljw6LkuTHprFOnMKxqqI NelwZkta83qWY1nP11KZ6lX JQkPyP9SSYlovM8Cyg7OWDw SERtxXIdT633h4eph5qqcdS irPT0pPdeKDTpLWZoRAojUR JdHsRhJClnPCK8EPl1VwAgT HBhcn0= CLINICAL HISTORY (test v9cvlSJgXTGdwTS5FsSgTSV code = 3356) ou5bme2IcoWUbfLIkXWwjrL YavrOjpw52hPD3iF27ZX0eX TNfSeT0NMEfqmE0Ytb0GUUn SPRakJCmB126t1sfo7exluQ eeVT8kHneYPOgWXOkCGioFX WlVsTuBYjnCWRfo1QiyXQlu NYvx216EMLawk7= SPECIMEN SOURCE (test p5ntuFGjOGNevLI1OvEiPQD code = 3377) sk8uhk3NybLWsiMVcPRkxjR ChbzWinc09zTA8iT84NZ0sS KScDqI6GZWfajK2Wfw0CZHl EGHmpKXpY259y6lfe7bpsfV vmFB5lRqgJYTwGJQnDLkxLY CuXzGnVV5nDHHoGUS2OVElh n0= GROSS DESCRIPTION b1oddPRbBBDdiPTvGjSdPSQ (test code = 3366) iQKMfm8wfIDHatSQeEzFgPw NcZnRuYmpcdWMxXGRlZmYwe 9ujk591fYQzp2qcXOWaUjX0 xFZmSRBpaPVsG863q4udt9i umnSpoEJ3ZMGrBBW1IOsjlc AicmZ4KFygbWJaByT7JFqty yVhFRppdyOcyaDhKyi2IGAq K558ANC6bQjkx3viZJF1YRY yGYYnYmVwYo7eqBFyQ610EJ UjWFIYVASdbUr2PDRwlaBhe kMmtCEGu757O975a2scMPCs qbLvrYaDulcyf3nmX971PFP hcGVydzEyMjQwXHBhcGVyaD V3WZCkYI9gztqjLdOrJV2fo avzVlDkOQ6cmcf7GgXrQY5b cmdiNzIwXGhlYWRlcnkwXGZ cn6LevhtuOW4qD4Ryp7I2zV 9maXRcZGVmdGFiNzIwXGZvc g4jnAMnBZsjy8NbHTX7hyP7 uRQscQNlRYBsFM51Lxiky3V oVssgMAP8BJWnlaNqk2Cnd3 mlJdGdtfBeA6iaT0BqPKEcO KZxBJZiXbTpxpLoy4Xfb3Wm iLXazDy7s6psCSOdXLPhgAn zj5swOJQ8WXZeA9U8cKKyx7 jgBHnaVILrdJB6fzpqZMnoP MOtxtN4tpahCKzdPVKjwRO3 qxjmPYpjVYIxNhY0tclwPQc yTKEfCHT5YKmwk465LGO7EQ xzYmtwYWdlXHBnbmNvbnRcc GduZGVjXHBsYWluXHBsYWlu XGYwXGZzMjRccWxccGxhaW5 yGqSzVyDfHLtgPN2aCZRuV4 atqDWhDRMrQXRfP5duLkCid X9roAoeNQtgrmJpYRCvXNWp C4UbndTfLTBrEFDzBPahClT iAMDgg1x7bWK5eQVhjFU3wE SseLswYcDoVD5kyGLeTA4cX XkmKYrnbjTfo7SzLM45kYLs ciBhbmQgInRvZSwgbGVmdCI dsWVpETVpeCIgkoXfD9AcQQ MmKFBrkMP2UAhwtM0bGC8kK KE3rhcsKrBwSCOtAKkjAWrw zpt1gOIxmcAxYnTazWTnvbS wfJAzMASjkl8ePIQnQSSzTR faZVZzCNS7xWDjiAFxQWDgw sW3CMoupBocwgN7ijv9jOVv ICBUaGUgcGxhbnRhciBzdXJ zUOYkUDBwk1KsOTkzSRZjRM F9KOQteVFcNwNoZ50riWGlt 3JyaGFnaWMgdWxjZXIgdGhh qCZvuJDxq2IciXVcDCHrUYA as2njXI1gzsjtckUsYtb6DW zsEAEmDLYnjfTdZhXqB15sR lRtzOS4dVEwEUdwRKC9nEU1 qBX6PLEuIY0cJlEzKWtaYWC bkONgynazJcDgn1ryWYgbLF trFUkyd2nluTSdHEc8dFKgq 4IjKLJtlKleRNZrGWJmD4Xv vZ5gGKBlNNW1bvIjuey5iP7 eNCTuicHmsKUigDWfkN20MS Psh96wC4Nmm8WpISFtTHM5v cHkVOC8bQK5BDPiJYMJRITi WGPikeWluDb7EYRzOKZ8kT1 zgjMfupEgl6BufVz3nIZjQi ypQIAtcLIqHDQfE7Zqw78wL 29kZTpccGFyIEExOiBVbGNl yzU6zjGbeN6gSTG4MFZepR4 unYPpL8myHZOaYMQpVZ8eoJ J0bUWgJOJkL9Zyi82lHINgs uKeUNrqPWA7iLB8iQT8XBVz DT4qFIQwzdSwGMQuGJYzz4q so7psvezyNEDmSAtkbCZrX8 Q8wB3vFBSvsqHAQyabJDwmX ZQrp2j3wRQ3cbCgeym0uT2c BSCrcoAgALGjyXjhy7zsJtB jCMKszBYxOuewNNXxx12lsW LdRKPrdjLVgMVxh7IsTRubH WVqUPZVDCOdPCFKXSgCM5LG KWNtXHBhcn0= MICROSCOPIC v2lagXHyBMChtNR0HqLcOPF DESCRIPTION (test code qg6oex0YweWFetZMpNKdzmV = 3371) MdmtDtyy17cCI6bS87DX1nX DJeCoP9FVGpqpC4Qjj1VSFi UDBeqKRqA311s5qjb5rjnuL jvCE8fPlnXTQiIAXiOQseWA PoZxOcKYKENv0COYITJBUid n0= [facility] HospitalTISSUE [id number] 14:26:00Surgical Pathology Report Case: [id number] Authorizing Provider: Fransisco Martinez DPM Collected: 12/08/2020 05:13 PM Ordering Location: [facility] PERIOPERATIVE Received: 12/09/2020 08:04 AM SERVICES Pathologist: Ksenia Gallego MD Specimen: Toe, Left, Left distal 2nd digit toe FOOT, LEFT, OBRCSV0NU DIGIT, AMPUTATION: - ULCER AND GRANULATION TISSUE - INTER-TRABECULAR FIBROSIS AND GRANULATION TISSUE (SEE COMMENT) - SKIN, SOFT TISSUE AND BONE MARGINS ARE UNREMARKABLE - NEGATIVE FOR MALIGNANCY Signing Pathologist Direct Phone Line: [phone] signed by Ksenia Gallego MD on 12/26/2020 at 2:25 PMConsistent with chronic osteomyelitis. Acute osteomyelitis is not definitelypresent in this oukluef22531; 50708Pebbu of left footToe, leftA. Received fresh labeled with the patient's name, medical record number and "toe, left" is a disarticulated distal toe measuring 1 cm in length and 2 cm in diameter. There is an attached, basurto- yellow unguis. The plantar surface displays a 1 x 1 x 0.1 cm hemorrhagic ulcer that approaches the skin margin (blue), and is 1.5 cm from the disarticulated end. The remaining skin is basurto-white, hyperkeratotic and scaly. The underlying bone is yellow, homogenous and trabeculated. Control Panel Operator Crude Unit sections are submitted.Section code:A1: Ulcer to closest skin margin, perpendicular sections, and disarticulated end, en face, following decalcificationA2: Ulcer with underlying bone, following decalcificationChelsea INDIO Mane, TELMA (ASCP)cmPERFORMEDSurgically obtained culture + gram [id number] 11:53:00 Test Item Value Reference Range Interpretation Comments Result (test code = From Broth Only A 6463-4) Coagulase negative Staphylococcus Gram Stain Result (test No organisms seen code = 1123) ALANNA (test code = ALANNA) Lab Interpretation Abnormal (test code = 99074-2) [facility] + GRAM [id number] 11:53:00 Test Item Value Reference Range Interpretation Comments CULTURE A From Broth Only (BEAKER) (test Coagulase neg ative code = 1095) Staphylococcus GRAM STAIN <1+ WBCs RESULT (BEAKER) (test code = 1123) GRAM STAIN No organisms seen RESULT (BEAKER) (test code = 339317) Anaerobic [id number] 08:04:00 Test Item Value Reference Range Interpretation Comments Result (test code = No anaerobes isolated 6463-4) [facility] [id number] 08:04:00 Test Item Value Reference Range Interpretation Comments CULTURE (BEAKER) (test No anaerobes isolated code = 1095) Blood Culture # 16:00:00 Test Item Value Reference Range Interpretation Comments Result (test code = No growth in 5 days 6463-4) [facility] CenterBL[facility] [id number] 16:00:00 Test Item Value Reference Range Interpretation Comments CULTURE (BEAKER) (test No growth in 5 days code = 1095) BLOOD [id number] 16:00:00 Test Item Value Reference Range Interpretation Comments CULTURE (BEAKER) (test No growth in 5 days code = 1095) POCT-GLUCOSE [id number] 07:40:00 Test Item Value Reference Range Interpretation Comments POC-GLUCOSE METER 130 mg/dL 70-110 H : TESTED A T [facility] 6720 (BEAKER) (test code = TE[place], 1538) [address]: Pulp Drier Firer/Techni nan ID = [id number] for PATRICIA DUGAN BASIC METABOLIC [id number] 05:04:00 Test Item Value Reference Range Interpretation [...] S NOT APPLICABLE FOR DIALYSIS PATIEN TS. Pulp Drier Firer ID - PIAYA LRAD, FOOT, 2 VIEWS, [id number] 04:32:00Reason for exam:->post op distal 2nd digit amputaiton for osteomeylitis distal phalanx, left footShould this be performed at the bedside?->No [facility] CENTERName: COLE JEFFREY : 1940 Sex: MFINAL REPORT CLINICAL INDICATION: Postop distal second digit amputation Comparison: 12/05/2020 FINDINGS: 2 views of the left foot are submitted. There is an expected postoperative appearance of interval amputation of the distal phalanx of the second toe. There is no unexpected radiopaque foreign body. Vascular calcifications are present in the lower leg, ankle and foot. Signed: Alexus Perez Verified Date/Time: 12/09/2020 04:32:54 POCT-GLUCOSE METER 2020-12-08 21:22:00 Test Item Value Reference Range Interpretation Comments POC-GLUCOSE METER 245 mg/dL 70-110 H : TESTED A T [facility] 6720 (Mundi) (test code = [facility], 153) [address]: Pulp Drier Firer/Techni nan ID = [id number] for Rick Moreno POCT-GLUCOSE [id number] 18:05:00 Test Item Value Reference Range Interpretation Comments POC-GLUCOSE METER 129 mg/dL 70-110 H : TESTED A T [facility] 6720 (Mundi) (test code = [facility] [place] [facility], 153) [address]: Pulp Drier Firer/Techni nan ID = [id number] for Tash Mata POCT-GLUCOSE [id number] 13:50:00 Test Item Value Reference Range Interpretation Comments POC-GLUCOSE METER 140 mg/dL 70-110 H : TESTED A T [facility] 6720 (BEAKER) (test code = TEJAL Avila [place], 1538) [address]: Pulp Drier Firer/Techni nan ID = [id number] for Lyly Cedeno POCT-GLUCOSE [id number] 09:44:00 Test Item Value Reference Range Interpretation Comments POC-GLUCOSE METER 140 mg/dL 70-110 H : TESTED A T [facility] 6720 (LALO) (test code = TEJAL Avila [facility], 1538) [address]: Pulp Drier Firer/Techni nan ID = [id number] for Lyly Cedeno WOUND CULTURE + GRAM [id number] 08:55:00 Test Item Value Reference Range Interpretation [...] gram negative (BEAKER) (test code rods = 842963) GRAM STAIN RESULT 1+ budding yeast (BEAKER) (test code with pseudohyphae = 938083) GRAM STAIN RESULT 2+ gram positive (BEAKER) (test code cocci in pairs and = 761842) clusters 1+ Skin floraBASIC METABOLIC [id number] 07:05:00 Test Item Value Reference Range Interpretation [...] S NOT APPLICABLE FOR DIALYSIS PATIEN TS. Pulp Drier Firer ID - AAHAMIDCBC with platelet count + automated [id number] 06:49:00 Test Item Value Reference Range Interpretation Comments WBC (test code = 6690-2) 7.5 See_Comment [A utomated message] The system Training Amigo generated this result transmitted ref erence range: 3.5 - 10 .5 K/L. The refe rence range was not u sed to interpret this result as normal/abnor mal. RBC (test code = 789-8) 4.40 See_Comment L [Au tomated message] The system Training [employer] generated this result transmitted ref erence range: 4.63 - 6 .08 M/L. The refe rence range was not u sed to interpret this result as normal/abnor mal. MCHC (test code = 786-4) 32.6 See_Comment L [A utomated message] The system Training [employer] generated this result transmitted ref erence range: [...] See_Comment [Aut omated message] 777-3) The system Training [employer] generated this result transmitted ref erence range: 150 - 45 0 K/CU MM. The referen ce range was not u sed to interpret this result as normal/abnor mal. MPV (test code = 10.2 fL 9.4-12.4 83203-6) nRBC (test code = 413) 0 See_Comment [Aut omated message] The system Training [employer] generated this result transmitted ref erence range: [...] See_Comment [Aut omated message] 670) The system Training [employer] generated this result transmitted ref erence range: 1.78 - 5 .38 K/L. The refe rence range was not u sed to interpret this result as normal/abnor mal. # Lymphs (test code = 1.98 See_Comment [Auto mated message] 414) The system Training [employer] generated this result transmitted ref erence range: 1.32 - 3 .57 K/L. The refe rence range was not u sed to interpret this result as normal/abnor mal. # Monos (test code = 1.14 See_Comment H [Autom ated message] 415) The system Training [employer] generated this result transmitted ref erence range: 0.30 - 0 .82 K/L. The refe rence range was not u sed to interpret this result as normal/abnor mal. # Eos (test code = 416) 0.38 See_Comment [Au tomated message] The system Training [employer] generated this result transmitted ref erence range: 0.04 - 0 .54 K/L. The refe rence range was not u sed to interpret this result as normal/abnor mal. # Baso (test code = 417) 0.05 See_Comment [A utomated message] The system Training [employer] generated this result transmitted ref erence range: 0.01 - 0 .08 K/L. The refe rence range was not u sed to interpret this result as normal/abnor mal. Immature 1 % 0-1 Granulocytes-Relative (test code = 2801) Lab Interpretation (test Abnormal code = 11582-9) [facility] W/PLT COUNT & AUTO [id number] 06:49:00 Test Item Value Reference Range Interpretation [...] PERCENT (BEAKER) (test code = 2801) POCT-GLUCOSE [id number] 21:27:00 Test Item Value Reference Range Interpretation Comments POC-GLUCOSE METER 171 mg/dL 70-110 H : TESTED A T [facility] 6720 (BEAKER) (test code = [facility]) [address]: Pulp Drier Firer/Techni nan ID = [id number] for JARRED BOYD POCT-GLUCOSE [id number] 17:54:00 Test Item Value Reference Range Interpretation Comments POC-GLUCOSE METER 101 mg/dL 70-110 : TESTED A T [facility] 6720 (BEAKER) (test code = [facility]) 511[address]: Pulp Drier Firer/Techni nan ID = [id number] for Ba iley, Sarah POCT-GLUCOSE [id number] 12:56:00 Test Item Value Reference Range Interpretation Comments POC-GLUCOSE METER 144 mg/dL 70-110 H : TESTED A T [facility] 6720 (BEAKER) (test code = [facility], 153) [address]: Pulp Drier Firer/Techni nan ID = [id number] for Ba iley, Sarah POCT-GLUCOSE [id number] 08:05:00 Test Item Value Reference Range Interpretation Comments POC-GLUCOSE METER 131 mg/dL 70-110 H : TESTED A T [facility] 6720 (BEAKER) (test code = [facility]8) [address]: Pulp Drier Firer/Techni nan ID = [id number] for Sarah Durand BASIC METABOLIC [id number] 04:40:00 Test Item Value Reference Range Interpretation [...] S NOT APPLICABLE FOR DIALYSIS PATIEN TS. Pulp Drier Firer ID - LAWRENCE WPOCT-GLUCOSE [id number] 21:04:00 Test Item Value Reference Range Interpretation Comments POC-GLUCOSE METER 124 mg/dL 70-110 H : TESTED A T [facility] 6720 (BEAKER) (test code = [facility], 1538) [address]: Pulp Drier Firer/Techni nan ID = [id number] for JARRED BOYD POCT-GLUCOSE [id number] 17:34:00 Test Item Value Reference Range Interpretation Comments POC-GLUCOSE METER 123 mg/dL 70-110 H : TESTED A T [facility] 6720 (BEAKER) (test code = [facility], 1538) 32[address]: Pulp Drier Firer/Techni nan ID = [id number] for Lexie MARIO Vancomycin level, [id number] 15:39:00 Test Item Value Reference Range Interpretation Comments Vancomycin Tr (test code = 10.2 ug/mL 10.0-20.0 4092-3) ALANNA (test code = ALANNA) Pulp Drier Firer ID - ADMIN Lab Interpretation (test Normal code = 02653-0) [facility] CenterVANCOMYCIN LEVEL, [id number] 15:39:00 Test Item Value Reference Range Interpretation Comments VANCOMYCIN TROUGH (BEAKER) (test 10.2 ug/mL 10.0-20.0 code = 522) Pulp Drier Firer ID - ADMINPOCT-GLUCOSE [id number] 11:47:00 Test Item Value Reference Range Interpretation Comments POC-GLUCOSE METER 170 mg/dL 70-110 H : TESTED A T [facility] 6720 (BEAKER) (test code = TEJAL Av[place] [facility], 1538) 87[address]: Pulp Drier Firer/Techni nan ID = [id number] for Lexie MARIOA POCT-GLUCOSE [id number] 08:03:00 Test Item Value Reference Range Interpretation Comments POC-GLUCOSE METER 134 mg/dL 70-110 H : TESTED A T [facility] 6720 (BEAKER) (test code = [facility], 1538) 77[address]: Pulp Drier Firer/Techni nan ID = [id number] for Lexie MARIOA Hemoglobin [id number] 07:46:00 Test Item Value Reference Range Interpretation Comments Hemoglobin A1C (test code = 4548-4) 6.5 % 4.3-6.1 H Lab Interpretation (test code = Abnormal 78324-8) [facility] CenterHEMOGLOBIN [id number] 07:46:00 Test Item Value Reference Range Interpretation Comments HEMOGLOBIN A1C (BEAKER) (test code = 6.5 % 4.3-6.1 H 368) [id number] 07:35:00 Test Item Value Reference Range Interpretation Comments Magnesium (test code = 2.1 mg/dL 1.6-2.6 53971-0) ALANNA (test code = ALANNA) Pulp Drier Firer ID - BS Lab Interpretation (test Normal code = 18072-4) [facility] CenterBASIC MET[facility]OLIC [id number] 07:35:00 Test Item Value Reference Range Interpretation [...] S NOT APPLICABLE FOR DIALYSIS PATIEN TS. Pulp Drier Firer ID - [id number] 07:35:00 Test Item Value Reference Range Interpretation Comments MAGNESIUM (BEAKER) (test code = 2.1 mg/dL 1.6-2.6 627) Pulp Drier Firer ID - BSCBC W/PLT COUNT & AUTO [id number] 05:58:00 Test Item Value Reference Range Interpretation [...] PERCENT (BEAKER) (test code = 2801) POCT-GLUCOSE [id number] 20:28:00 Test Item Value Reference Range Interpretation Comments POC-GLUCOSE METER 72 mg/dL 70-110 : TESTED A T [facility] 6720 (BEAKER) (test code = [place], 1538) 57[address]: Pulp Drier Firer/Techni nan ID = [id number] for Abiola hopkins (contract), Mar y Lactic acid, venous [id number] 17:37:00 Test Item Value Reference Range Interpretation Comments Lactate, Venous (test code = 2.17 mmol/L 0.50-2.20 2871) ALANNA (test code = ALANNA) Pulp Drier Firer ID - BS Lab Interpretation (test Normal code = 64653-4) [facility] HospitalLACTIC ACID, [id number] 17:37:00 Test Item Value Reference Range Interpretation Comments LACTATE BLOOD VENOUS (2) (BEAKER) 2.17 mmol/L 0.50-2.20 (test code = 2872) Pulp Drier Firer ID - BSRAD, FOOT, MIN 3 VIEWS, [id number] 14:49:00Reason for exam:- >left 2nd toe wound [facility] CENTERName: COLE JEFFREY : 1940 Sex: MFINAL REPORT RAD, FOOT, MIN 3 VIEWS, LEFT INDICATION: left 2nd toe wound COMPARISON: None TECHNIQUE: AP and lateral oblique radiographs of the foot FINDINGS/IMPRESSION:No acute fracture. No radiopaque foreign body. Signed: Angelina Greene Verified Date/Time: 12/05/2020 14:49:31 Reading Location: [facility] Radiology Reading Room Comprehensive metabolic [...] Albumin (test code = 4.0 g/dL 3.5-5.0 17898-0) Alkaline Phosphatase 59 U/L 40-150 (test code = 6768-6) Total Bilirubin (test 0.6 mg/dL 0.2-1.2 code = 1975-2) Sodium (test code = 136 meq/L 134-622 3655-2) Potassium (test code 4.1 meq/L 3.5-5.1 = 2823-3) Chloride (test code = 100 meq/L 98-107 5-0) CO2 (test code = 25 meq/L 22-29 2027-9) BUN (test code = 16 mg/dL 7- 3094-0) Creatinine (test code 1.09 mg/dL 0.57-1.25 = 2160-0) Glucose (test code = 129 mg/dL 70-105 H 2345-7) Calcium (test code = 9.1 mg/dL 8.4-10.2 05648-2) AST (test code = 16 U/L 5-34 1920-8) ALT (test code = 16 U/L 6-55 1742-6) EGFR (test code = 65 mL/min/1.73 [place] [address]-3) NOT ACCURATE CREATININE CLEARANCE IN PREDICTING GLOMERULAR FILTRATION RATE . ESTIMATED GFR I S NOT APPLICABLE FOR DIALYSIS PATIEN ALANNA (test code = ALANNA) Pulp Drier Firer ID - CHRISTINA Lab Interpretation Abnormal (test code = 63022-3) [facility] CenterCOMPREHENSIVE METABOLIC [id number] 14:45:00 Test Item Value Reference Range Interpretation [...] S NOT APPLICABLE FOR DIALYSIS PATIEN TS. Pulp Drier Firer ID - EMERSONLACTIC ACID, [id number] 14:41:00 Test Item Value Reference Range Interpretation Comments LACTATE BLOOD VENOUS 3.18 mmol/L 0.50-2.20 H Specime n slightly (2) (LALO) (test hemolyzed code = 2872) Pulp Drier Firer ID - [id number] 14:34:00 Test Item Value Reference Range Interpretation Comments PTT (test code = 39.1 See_Comment H [Automated message] 38130-0) The system Training [employer] generated this result transmitted ref erence range: 22.5 - 3 6.0 seconds. The reference range was not used to int erpret this result as normal/abnormal . Lab Interpretation (test Abnormal code = 35614-3) [facility] [id number] 14:34:00 Test Item Value Reference Range Interpretation Comments PARTIAL THROMBOPLASTIN TIME 39.1 seconds 22.5-36.0 H (LALO) (test code = 760) Prothrombin time/[id number] 14:33:00 Test Item Value Reference Interpretation Comments [...] valves. Lab Interpretation Normal (test code = 16206-5) [facility] CenterPROTHROMBIN TIME/[id number] 14:33:00 Test Item Value Reference Range Interpretation Comments PROTIME (BEAKER) 13.3 seconds 11.9-14.2 (test code = 759) INR (BEAKER) (test 1.03 See_Comment [Automat ed message] code = 370) The system Training [employer] generated this result transmitted ref erence range: <=5.90. The reference range was not used to int erpret this result as normal/abnormal . RECOMMENDED COUMADIN/WARFARIN INR THERAPY RANGESSTANDARD DOSE: 2.0 - 3.0 Includes: PROPHYLAXIS for venous thrombosis, systemic embolization; TREATMENT for venous thrombosis and/or pulmonary embolus.HIGH RISK: Target INR is 2.5-3.5 for patients with mechanical heart valves.CBC W/PLT COUNT & AUTO [id number] 14:27:00 Test Item Value Reference Range Interpretation [...] = 2801) RAD, FOOT, MIN 3 VIEWS, [id number] 14:06:00Reason for Exam:->Abscess or cellulitis of toe, [...] MDReport Verified Date/Time: 12/03/2019 14:06:27 Reading Location: [facility] Reading Room [address] [place] [address]
--- NOTE | 2023-04-27 16:10 | RAD REPORT ---
EXAM DESCRIPTION: RAD - Foot Left 3 View - 04/27/2023 4:01 pm CLINICAL HISTORY: PAIN COMPARISON: No comparisons FINDINGS/IMPRESSION: No acute fracture. No malalignment. Plantar and dorsal aspect calcaneal spurs. Midfoot degenerative changes. Peripheral vascular calcifications. No radiographic evidence of osteomy elitis. MRI is more sensitive in the acute phase.
[2023-04-27 16:31] LABS: Hematocrit 32.5 % (39.6-49.0); MCV 77.1 fL (80-100); MPV 7.6 fL (7.6-11.3); Platelets 280 thou/uL (152-406); RBC Red Blood Cell Count 4.22 M/uL (4.33-5.43)
[2023-04-27 16:48] LABS: Albumin 3.4 g/dL (3.4-5.0); Bilirubin Total 0.7 mg/dL (0.2-1.0); Potassium 4.2 mEq/L (3.5-5.1); Protein, Total 6.9 g/dL (6.4-8.2)
--- NOTE | 2023-04-27 17:02 | ER ---
Nurse's Notes [facility] Name: Cole Jeffrey Age: 83 yrs Sex: Male : 1940 Arrival Date: 04/27/2023 Time: 15:21 Bed 8 Private MD: Diagnosis: Diabetic foot wound Presentation: 04/27 15:32 Chief complaint: Patient states: "On the 04/24/23, I saw my foot doctor about the mb9 blister on my left foot. It drained on its own that night. We went to see Jaida today and she told me to come to the ER because it looks infected.". Coronavirus screen: At this time, the client does not indicate any symptoms associated with coronavirus-19. Ebola Screen: No symptoms or risks identified at this time. Initial Sepsis Screen: Does the patient meet any 2 criteria? No. Patient's initial sepsis screen is negative. Does the patient have a suspected source of infection? No. Patient's initial sepsis screen is negative. Risk Assessment: Do you want to hurt yourself or someone else? Patient reports no desire to harm self or others. Onset of symptoms was April 27, 2023. 15:32 Method Of Arrival: Ambulatory mb9 15:32 Acuity: JOSE F 3 mb9 Triage Assessment: 15:36 General: Appears in no apparent distress. Behavior is calm, cooperative. Pain: Denies mb9 pain. Neuro: Rush Agitation-Sedation Scale (RASS): 0 - Alert and Calm Level of Consciousness is awake, alert, obeys commands, Oriented to person, place, time, situation, Appropriate for age. Cardiovascular: Patient's skin is warm and dry. Respiratory: Airway is patent Respiratory effort is even, unlabored, Respiratory pattern is regular, symmetrical. GI: No signs and/or symptoms were reported involving the gastrointestinal system. : No signs and/or symptoms were reported regarding the genitourinary system. Derm: Skin is pink, warm \\T\\ dry. Derm: erythema noted in left foot. Musculoskeletal: Range of motion: intact in all extremities. Historical: - Allergies: 15:36 Sulfa (Sulfonamide Antibiotics); mb9 - PMHx: 15:36 ADD/ADHD; Atrial fibrillation; Cellulitis; Hypertension; Hypothyroidism; Diabetes - mb9 NIDDM; Hyperlipidemia; skin cancer; - PSHx: 15:36 Coronary artery bypass graft; mb9 - Immunization history:: Adult Immunizations up to date. - Social history:: Smoking status: Patient denies any tobacco usage or history of. - Family history:: not pertinent. Screenin:54 [facility] ED Fall Risk Assessment (Adult) Score/Fall Risk Level 0 - 2 = Low Risk. Abuse iw screen: Denies threats or abuse. Denies injuries from another. Nutritional screening: No deficits noted. Tuberculosis screening: No symptoms or risk factors identified. Assessment: 16:54 General: Appears in no apparent distress. Behavior is calm, cooperative. Pain: iw Complains of pain in plantar aspect of left fourth toe. Neuro: Level of Consciousness is awake, alert, obeys commands, Oriented to person, place, time, situation, Moves all extremities. Cardiovascular: Patient's skin is warm and dry. Vital Signs: 15:32 BP 154 / 72; Pulse 58; Resp 18; Temp 97.7; Pulse Ox 98% ; Weight 97.07 kg; Height 6 ft. mb9 0 in. ; Pain 0/10; 15:32 Body Mass Index 29.02 (97.07 kg, 182.88 cm) mb9 15:32 Pain Scale: Adult mb9 ED Course: 15:29 Patient arrived in ED. im 15:30 Steven Wren MD is Attending Physician. rt 15:36 Triage completed. mb9 15:36 Arm band placed on right wrist. mb9 16:03 Foot Left 3 View XRAY In Process Unspecified. EDMS 16:15 Initial lab(s) drawn, by me, sent to lab. Inserted saline lock: 20 gauge in right iw antecubital area, using aseptic technique. Blood collected. 16:51 Lea Matson, RN is Primary Nurse. iw 16:54 Patient has correct armband on for positive identification. Provided Education on: . iw 17:52 No provider procedures requiring assistance completed. IV discontinued, intact, iw bleeding controlled, No redness/swelling at site. Pressure dressing applied. Administered Medications: No medications were administered Medication: 16:54 VIS not applicable for this client. iw Outcome: 17:01 Discharge ordered by . rt 17:52 Discharged to home via wheelchair, with family, iw 17:52 Condition: good 17:52 Discharge instructions given to patient, family, Instructed on discharge instructions, follow up and referral plans. Demonstrated understanding of instructions, follow-up care, 17:53 Patient left the ED. iw Signatures: Dispatcher [employer] Lea Kennedy RN RN iw Breneman, Mary Beth, RN RN mb9 Steven Wren MD MD rt Jo Ann Pitts
--- NOTE | 2023-04-27 17:02 | EDPHYS ---
Physician Documentation [facility] Name: Cole Jeffrey Age: 83 yrs Sex: Male : 1940 Arrival Date: 04/27/2023 Time: 15:21 Bed 8 Private MD: ED Physician Steven Wren HPI: 04/27 21:38 This 83 yrs old Male presents to ER via Ambulatory with complaints of Wound Infection - rt left foot. 21:38 Patient presents to the ED with concerns of infection to the left third toe. Patient rt states that he had completed a course of antibiotics for that. States that later on, developed a scab to that area with scant amount of clear drainage. Was sent by her primary care for evaluation of foot infection. Denies other acute complaints at this time, symptoms are mild in severity, no other aggravating elevating factors.. Historical: - Allergies: 15:36 Sulfa (Sulfonamide Antibiotics); mb9 - PMHx: 15:36 ADD/ADHD; Atrial fibrillation; Cellulitis; Hypertension; Hypothyroidism; Diabetes - mb9 NIDDM; Hyperlipidemia; skin cancer; - PSHx: 15:36 Coronary artery bypass graft; mb9 - Immunization history:: Adult Immunizations up to date. - Social history:: Smoking status: Patient denies any tobacco usage or history of. - Family history:: not pertinent. ROS: 21:38 Constitutional: Negative for fever, chills, and weight loss, Cardiovascular: Negative rt for chest pain, palpitations, and edema, Respiratory: Negative for shortness of breath, cough, wheezing, and pleuritic chest pain, Abdomen/GI: Negative for abdominal pain, nausea, vomiting, diarrhea, and constipation, Skin: Negative for injury, rash, and discoloration, Neuro: Negative for headache, weakness, numbness, tingling, and seizure, Psych: Negative for depression, anxiety, suicide ideation, homicidal ideation, and hallucinations, 21:38 MS/extremity: Positive for Foot wound, negative for pain, Exam: 21:38 Constitutional: This is a well developed, well nourished patient who is awake, alert, rt and in no acute distress. Head/Face: Normocephalic, atraumatic. Chest/axilla: Normal chest wall appearance and motion. Nontender with no deformity. No lesions are appreciated. Cardiovascular: Regular rate and rhythm with a normal S1 and S2. No gallops, murmurs, or rubs. Normal PMI, no JVD. No pulse deficits. Respiratory: Lungs have equal breath sounds bilaterally, clear to auscultation and percussion. No rales, rhonchi or wheezes noted. No increased work of breathing, no retractions or nasal flaring. Abdomen/GI: Soft, non-tender, with normal bowel sounds. No distension or tympany. No guarding or rebound. No evidence of tenderness throughout. Skin: Warm, dry with normal turgor. Normal color with no rashes, no lesions, and no evidence of cellulitis. Neuro: Awake and alert, GCS 15, oriented to person, place, time, and situation. Cranial nerves II-XII grossly intact. Motor strength 5/5 in all extremities. Sensory grossly intact. Cerebellar exam normal. Normal gait. Psych: Awake, alert, with orientation to person, place and time. Behavior, mood, and affect are within normal limits. 21:38 Musculoskeletal/extremity: Scabbing noted to left third toe, no purulence noted, no surrounding erythema, pulses, motor, sensation intact. Vital Signs: 15:32 BP 154 / 72; Pulse 58; Resp 18; Temp 97.7; Pulse Ox 98% ; Weight 97.07 kg; Height 6 ft. mb9 0 in. ; Pain 0/10; 15:32 Body Mass Index 29.02 (97.07 kg, 182.88 cm) mb9 15:32 Pain Scale: Adult mb9 MDM: 15:45 Patient medically screened. rt 21:38 Differential diagnosis: Abscess, cellulitis, diabetic ulcer. Data reviewed: vital rt signs, nurses notes, lab test result(s), radiologic studies. Consideration of Admission/Observation Escalation of care including admission/observation considered. Wound not overtly cellulitic, infected, will treat with antibiotics nonetheless. No clinical evidence for sepsis, x-ray shows no evidence of osteomyelitis, patient likely to benefit from admission at this time. Patient to follow-up with wound care as outpatient, return precautions discussed.. Independent interpretation of the following test(s) in the Emergency Department X-Ray: My interpretation is No fracture seen on interpretation of x-ray images. Care significantly affected by the following chronic conditions: Diabetes. Counseling: I had a detailed discussion with the patient and/or guardian regarding the historical points, exam findings, and any diagnostic results supporting the discharge/admit diagnosis, lab results, radiology results, the need for outpatient follow up, to return to the emergency department if symptoms worsen or persist or if there are any questions or concerns that arise at home. 04/27 15:47 Order name: CBC with Diff; Complete Time: 16:49 rt 04/27 15:47 Order name: CMP; Complete Time: 16:49 rt 04/27 15:47 Order name: Foot Left 3 View XRAY; Complete Time: 16:16 rt Administered Medications: No medications were administered Disposition Summary: 04/27/23 17:01 Discharge Ordered Notes: Location: Home rt Problem: an acute exacerbation rt Symptoms: are unchanged rt Condition: Stable rt Diagnosis - Diabetic foot wound rt Followup: rt - With: Private Physician - When: 5 - 6 days - Reason: Discharge Instructions: - Discharge Summary Sheet rt - Foot Care, Adult rt Forms: - Medication Reconciliation Form rt - Thank You Letter rt - Antibiotic Education rt - Prescription Opioid Use rt - Patient Portal Instructions rt - Leadership Thank You Letter rt Prescriptions: - Clindamycin HCl 300 mg Oral Capsule - take 1 capsule ORAL route every 6 hours for 10 days; 40 capsule; Refills: 0, rt Product Selection Permitted Signatures: Dispatcher [employer] Agnes Chavira RN RN mb9 Steven Wren MD MD rt
[2023-04-27 18:40] VITALS: BP 154/72; TEMP 97.7; O2SAT 98
== END 2023-04-27 17:53 | disposition home or self-care (01) ==
LOC: ER 15:21
DX: E11.621 Type 2 diabetes mellitus with foot ulcer (principal); I10 Essential (primary) hypertension; Z88.2 Allergy status to sulfonamides; Z95.1 Presence of aortocoronary bypass graft
CPT/HCPCS: 36415; 80053; 85025; 99283

== ENCOUNTER 2023-05-02 14:49 | Emergency (ER) | payer OTHER, MEDICARE ==
--- OUTSIDE RECORDS SUMMARY | 2023-05-02 14:52 | XMS REPORT | Clinical Summary ---
:1940 Author Organization [facility] MD [facility] Center Address [address] [place] [address] Care Team Providers Name Role Phone Yadi [...] TOTAL KNEE ARTHROPLASTY 06/13/2013 - Left 06/12/2014 FL EXCISION MALIGNANT 05/13/2016 Right Procedure: wide local, LESION F/E/E/N/L 0.5 CM/< Right auricle; Surgeon: Kwame Santiago MD; Location: [facility]; Service: - AD & NECK SURGERY FL SPLIT AGRFT T/A/L 1ST 05/13/2016 Right Procedu re: SPLIT 100 CM/&/1% BDY INFT/CHLD THICKN ESS SKIN GRAFT OF TRUNK/ARM OR LEG ; Surgeon: Kwame cotto MD; Location: [facility] [place]; Service: HN - HE AD & NECK [...] cancer Mother Delfin Paul from [facility] er Relation Name Status Comments Father [...] Vaccination (#1) 1940 Results Not on fileafter 05/02/2022 Insurance Payer Benefit Plan Subscriber ID Effective Phone Address Typ e / Group Dates MEDICARE MEDICARE PART [id number] 2003-Pres [phone] [employer] Medicare A AND B ent [id number] [employer] [address] [facility] [place] [address] SURINAMESE AAR-SECONDAR [id number] 1992-Pres [address] [employer] ONLY ent [id number] [place] [address] Advance Directives Type Date Recorded Patient Editor Trade Journal Explanati on Advance Directives: 05/14/2016 Directive to Physicians Living Will and Family or Surrogates-Jeanettein kahti Will Advance Directives: 05/14/2016 Medical Sinan r of Turnstile Attendant Medical Power of Turnstile Attendant Code Status Date Activated Date Inactivated Comments Full Code 05/13/2016 1:54 PM 05/13/2016 9:10 PM Care Teams Carding Supervisor Relationship Specialty Start Date End Date Yadi Childs MD PCP - General Head and Neck Surgery 04/23/15 [address] [place] [address] Keysha Felix MD PCP - External Dermatology 04/23/[address] [place] [id number] Damir Lucero PCP - External Primary Family Practice 04/26/16 MD Anthony Care Provider [address] [place] [id number] Kwame Santiago MD Consulting Physician Head and Neck Surgery 05/12/[address] [place] [address] [phone] Aminah Zuniga, Consulting Physician Internal Medicine 05/03/[address] [place] [address] [phone]
--- OUTSIDE RECORDS SUMMARY | 2023-05-02 15:05 | XMS REPORT | Continuity of Care Document ---
:1940 Author Organization [facility] t Address [address] [facility] [address] [place] [id number] Care Team Providers Name Role Phone Yadi Childs MD Primary Care Physician Silverio Cope Attending Clinician Unavailable January Mccollum Attending Clinician Unavailable FRANSISCO MARTINEZ Attending Clinician Unavailable SIERRA COPELAND Attending Clinician Unavailable Sierra Copeland DO Attending Clinician Ruiz Bhatti Attending Clinician Unavailable Noni Marquez Cardiology Attending Clinician Unavailable TAMEKA BACON Attending Clinician Unavailable Jordi PICTURE FRAMES INSPECTORTameka Navarro Attending Clinician Unknown, Attending Attending Clinician Unavailable Bawendy_Jarrell Attending Clinician Unavailable SIDNEY TINOCO Attending Clinician Unavailable Sidney Tinoco DO Attending Clinician Danifouzia_T Attending Clinician Unavailable Cale Cummings DO Attending Clinician MICHAEL BARBOUR Attending Clinician Unavailable Nurse, [facility] Attending Clinician Unavailable Michael Sanchez Attending Clinician Andreina Hernandez Attending Clinician [phone] Kojo PEARSON, Niall Attending Clinician NIALL VARMA Attending Clinician Unavailable Doctor Unassigned, [place] Attending Clinician Unavailable ELLIOTT GOMEZ Attending Clinician Unavailable Elliott Franklin Attending Clinician Ludwig Browne Attending Clinician [phone] Marcello Garvin Attending Clinician Unavailable Rafal Marquez Attending Clinician Unavailable Radha Haas Attending Clinician Unavailable Cale Rivera MD Attending Clinician CALE RIVERA Attending Clinician Unavailable Mann Gama MD Attending Clinician Fransisco Martinez DPM Attending Clinician Germán Beebe MD Attending Clinician Ricardo Hightower DO Attending Clinician Marilyn Costa MD Attending Clinician [phone] Ellis Abrams MD Attending Clinician Madiha Méndez MD Attending Clinician Min QUINTERO, Benitez Attending Clinician KAVYA RODRIGUEZ Attending Clinician Unavailable Lobo Marin Attending Clinician Unavailable Noni Marquez Admitting Clinician Unavailable FRANSISCO MARTINEZ Admitting Clinician Unavailable Ruiz Bhatti Admitting Clinician Unavailable BaVirgilio Admitting Clinician Unavailable SIDNEY TINOCO Admitting Clinician Unavailable Kary Admitting Clinician Unavailable Marcello Garvin Admitting Clinician Unavailable Rafal Marquez Admitting Clinician Unavailable Radha Haas Admitting Clinician Unavailable MARILYN COSTA Admitting Clinician Unavailable Lobo Marin Admitting Clinician Unavailable Payers Payer Name Policy Type Policy Number Effective Date Expiration Date S cheyanne MEDICARE A B [id number] 2003 00:00:00 [facility] [id number] 2020 HEALTHCARE 00:00:00 MEDICARE PART A \\T\\ [id number] 2003 B 00:00:00 [facility] [id number] 2017 MEDICARE SUPPLEMENT 00:00:00 MEDICARE B-[place]: [id number] 2003 [place] SOLUTIONS 00:00:00 [facility] [id number] 2017 OPTIONS (MEDICARE 00:00:00 SUPPLEMENT) Problems Condition [...] ear right ear 00 MD [facility] 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 00:00: [place] loss, loss, 00 bilateral bilateral Faheem rso [facility] 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 Anderso loss loss [facility] 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 (severe) (severe) 07-03 ity of obesity obesity 00:00: [place] due to due to 00 excess excess Andsammieo calories calories [facility] Essential Essential Disease Active 2015-06 Uni vers (primary) (primary) 07-03 [place] of hypertensi [place]ens[place] 00 [place] Shad [facility] Diabetes Diabetes Disease Active 2015-06 Unive rs mellitus mellitus 07-03 ity of due to due to 00:00: [place] underlying underlying 00 condition condition Faheem rso with with n complicati complicati Ca ncer on on Center Hypothyroi Hypothyroi Disease Active 2015-06 U ki dism dism 07-03 ity of 00:00: [place] 00 MD Shad truong [facility] Hyperlipid Hyperlipid Disease Active 2015-06 U ki emia emia 07-03 ity of 00:00: [place] 00 MD [facility]ad [facility] Alcohol Alcohol Disease Active 2015-06 Univers use use 07-03 [place] of disorder, disorder, [place] mild mild 00 [place] [facility] Acute Acute Problem Active [place] cystitis Cystitis 4-04 [facility] 00:00: Urology 00 Large Large Problem Active [place] prostate Prostate 4-04 [facility] 00:00: Urology 00 Infectious Infectious Disease Active Overview : Univers disease disease 06-13 Formattin ity o f 00:00: g of this note might be Anderso different n from the Cancer original. Center infection s due to cracks in feet/dry skin Arteriopat Arteriopat Problem [facility] hic 5-27 [facility] impotence Impotence 00:00: [...] [place] 00 MD Shad truong [facility] [id number] Other Problem Common obesity Spirit due to - [facility] excess 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 - CHI [facility] [id number] Long-term Problem Com mon (current) Spirit use of - CHI anticoagul [facility], [facility] goal Medical 2.0-3.0 Center [id number] Benign Problem Common prostatic Spirit hyperplasi - CHI a with [facility] urinary Medical tract Center symptoms, symptom details unspecifie d [id number] Hypothyroi Problem Co mmon dism Spirit (acquired) - CHI [facility] [id number] Essential Problem Comm on (primary) Spirit hypertensi - CHI on [facility] [id number] 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 [facility] [id number] Cardiac Problem Commo n defibrilla Spirit tor in - CHI place [facility] [id number] Leukocytos Problem Co mmon is, Spirit unspecifie - CHI d type [facility] Open skull Open skull Disease Active Overview : Univers fracture fracture Formattin ity of without without g of this [place] intracrani intracrani note al injury al injury [...] rs active active ity of problems problems [facility] Allergies, Adverse Reactions, Alerts Allergy Allergy Status [...] 2020-06 [facility] (Sulfona 0-28 [place] mide 00:00: [place] Antibio 00 Medical ics) Center canaglif DA Active U 2020-06 [facility] lozin 0-28 [place] 00:00: [address] Sulfa DA Active U ITCHING 2020-06 [facility] (Sulfona 0-28 [place] mide 00:00: d Antibiot Medical ics) Center canaglif DA Active U ITCHING 2020-06 [facility] lozin 0-28 [place] 00:00: Medical Center Sulfa DA Active U 2020-06 [facility] (Sulfona 0-16 [place] mide 00:00: [place] Antibio Medical ics) Center canaglif DA Active U 2020-06 [facility] lozin 0-16 [place] 00:00: [address] Sulfa DA Active U ITCHING 2020-06 [facility] (Sulfona 0-16 [place] mide 00:00: [place] Antibio 00 Medical ics) Center canaglif DA Active U ITCHING 2020-06 [facility] lozin 0-16 [place] 00:00: [address] SULFA Drug Active Med Hives 2018- [...] Active U [facility] lozin 9 [place] 00:00: [address] canaglif DA Active U [place] [facility] lozin 03-09 [place] 00:00: [address] NO KNOWN Allergy Active [facility] Jardianc Allergy Active Severe Hives [place] e [...] Stop Date Source Natural father Coronary heart [facility] disease (CHD) [facility] [place] Natural father Heart disease Univers [facility] Natural father Heart attack [facility] Natural mother -Breast [facility] Natural mother Breast cancer [facility] Social History Social Habit Start Date Stop Date Quantity Comments Source History of Tobacco Common Spirit - Use [facility] History [facility] Alcohol Comment Medical C enter Sexual orientation [facility] MD [facility] Gender identity Universit y of [facility] Exposure to 2022-08-16 2022-08-26 Not sure University SARS-CoV-2 (event) 00:00:00 10:12:00 [facility] Tobacco use and 2021-08-25 2021-08-25 Smokeless Universit y of exposure 00:00:00 00:00:00 tobacco non-user [facility] Alcohol intake 2021-01-20 2021-01-20 [facility]00 of alcohol Medical Center (finding) History [facility] 2020-12-05 2020-12-[address] [facility] Alcohol Frequency 00:00:00 00:00:00 Medical Center History SDPA 2020-12-05 2020-12-[address] [facility] Alcohol Std Drinks 00:00:00 00:00:00 Medica l Center History [facility] 2020-12-05 2020-12-[address] [facility] Alcohol [...] Universit y of 00:00:00 00:00:00 Diamond garrett [facility] Smoking Status Start Date Stop Date Source Former Smoker 2023-04-27 00:00:00 2023-04-27 00:00:00 Common S pirit - [facility] nter Never smoked tobacco [facility] Medications Ordered Filled Start Stop Current Ordering Indication Dosage Frequency Signature Comments Components Source Medication Medication Date Date Medication? Clinician (SIG) Name Name Mupirocin 2 Mupirocin 2 2022-06 No 1{appli BID Mupirocin % % 0-24 cation} 2 % 00:00: 00 Mupirocin 2 Mupirocin 2 2022-06 No 1{appli BID Mupirocin % % 0-24 cation} 2 % 00:00: 00 Metoprolol Metoprolol No 1{capsu QD Metoprolol Succinate Succinate 5-11 le} Succinate 25 MG 25 MG 00:00: 25 MG 00 Magnesium Magnesium No Magnesium 5-11 00:00: 00 Daily Daily 2022-0 No Daily Vitamin Vitamin 5-11 Vitamin 00:00: 00 Daily Daily 2022-0 No Daily Vitamin Vitamin 5-11 Vitamin 00:00: 00 Metoprolol Metoprolol 0 No 1{capsu QD Metoprolol Succinate Succinate 5-11 le} Succinate 25 MG 25 MG 00:00: 25 MG 00 Magnesium Magnesium 0 No Magnesium 5-11 00:00: 00 Daily Daily 2022-0 No Daily Vitamin Vitamin 5-11 Vitamin 00:00: 00 Magnesium Magnesium 2022-0 No Magnesium 5-11 00:00: 00 amLODIPine 2022-0 Yes 1 tablet Uni vers 2.5 mg 3-16 ity of tablet 10:21: [address] simvastatin 2022-0 Yes simvastati Univers 20 mg 3-16 n 20 mg ity of tablet 10:21: tablet one [place] [address] at bedtime [facility] amLODIPine 2022-0 Yes 1 tablet Uni vers 2.5 mg 3-16 ity of tablet 10:21: [place] 12 [facility] Branch simvastatin Yes simvastati Univers 20 mg 3-16 n 20 mg ity of tablet 10:21: tablet one [place] 12 at bedtime Medical Branch cefdinir 0 2022- No [id number] 300mg Take 1 U nivers 300 mg [...] 00:00: 00:00 00 :00 benzonatate 2021-06 Yes [id number] 100mg Take 1 Univers 100 mg 0-13 capsule by ity of capsule 00:00: mouth 3 [place] 00 (three) Medical times Branch daily as needed for Cough. fluticasone 2021-06 Yes [id number] 2{spray Use 2 Univers 27.5 0-13 } Sprays in ity of mcg/actuati 00:00: each [place] on nasal 00 nostril in Medic al spray the Branch morning. benzonatate 2021-06 Yes [id number] 100mg Take 1 Univers 100 mg 0-13 capsule by ity of capsule 00:00: mouth 3 [place] 00 (three) Medical times Branch daily as needed for Cough. fluticasone 2021-06 Yes [id number] 2{spray Use 2 Univers 27.5 0-13 } Sprays in ity of mcg/actuati 00:00: each [place] on nasal 00 nostril in Medic al spray the Branch morning. benzonatate 2021-06 Yes [id number] 100mg Take 1 Univers 100 mg 0-13 capsule by ity of capsule 00:00: mouth 3 [place] 00 (three) Medical times Branch daily as needed for Cough. fluticasone 2021-06 Yes [id number] 2{spray Use 2 Univers 27.5 0-13 } Sprays in ity of mcg/actuati 00:00: each [place] on nasal 00 nostril in Medic al spray the Branch morning. phytonadion 2021- No 2.5mg 2.5 mg, U nivers e (vitamin 02-24- Oral, ity of K1) 04:00: 15:59 ONCE, 1 [place] (MEPHYTON) 00 :00 dose, On Medic al tablet 2.5 Tue Branch mg 02/23/22 at 2300, Routine amLODIPine Yes 1 tablet Uni vers 2.5 mg 8-29 ity of tablet 17:29: [address] amLODIPine Yes 1 tablet Uni vers 2.5 mg 8-29 ity of tablet 17:29: [address] amLODIPine Yes 1 tablet Uni vers 2.5 mg 8-29 ity of tablet 17:29: [address] amLODIPine Yes 1 tablet Uni vers 2.5 mg 8-29 ity of tablet 17:29: [address] amLODIPine Yes 1 tablet Uni vers 2.5 mg 8-29 ity of tablet 17:29: [address] cefdinir 2021- No [id number] 300mg Take 1 U nivers 300 mg 8-09 capsule by ity of capsule 00:00: 04:59 mouth in [place] 00 :00 the [facility] Branch and 1 capsule in the evening. Do all this for 10 days. losartan Yes losartan Unive rs 100 mg 4-10 100 mg ity of tablet 16:46: tablet [address] aspirin 325 0 Yes 325mg Take 325 U nivers mg tablet 4-10 mg by ity of 16:46: mouth. [address] losartan Yes losartan Unive rs 100 mg 4-10 100 mg ity of tablet 16:46: tablet [address] aspirin 325 2021-0 Yes 325mg Take 325 U nivers mg tablet 4-10 mg by ity of 16:46: mouth. [address] losartan Yes losartan Unive rs 100 mg 4-10 100 mg ity of tablet 16:46: tablet [address] aspirin 325 2021-0 Yes 325mg Take 325 U nivers mg tablet 4-10 mg by ity of 16:46: mouth. [address] losartan 0 Yes losartan Unive rs 100 mg 4-10 100 mg ity of tablet 16:46: tablet [address] aspirin 325 2021-0 Yes 325mg Take 325 U nivers mg tablet 4-10 mg by ity of 16:46: mouth. [address] losartan 0 Yes losartan Unive rs 100 mg 4-10 100 mg ity of tablet 16:46: tablet [address] aspirin 325 0 Yes 325mg Take 325 U nivers mg tablet 4-10 mg by ity of 16:46: mouth. [address] losartan 0 Yes losartan Unive rs 100 mg 4-10 100 mg ity of tablet 16:46: tablet [address] aspirin 325 0 Yes 325mg Take 325 U nivers mg tablet 4-10 mg by ity of 16:46: mouth. [address] losartan Yes losartan Unive rs 100 mg 4-10 100 mg ity of tablet 16:46: tablet [address] aspirin 325 0 Yes 325mg Take 325 U nivers mg tablet 4-10 mg by ity of 16:46: mouth. [address] losartan 0 Yes losartan Unive rs 100 mg 4-10 100 mg ity of tablet 16:46: tablet [address] aspirin 325 0 Yes 325mg Take 325 U nivers mg tablet 4-10 mg by ity of 16:46: mouth. [address] losartan 0 Yes losartan Unive rs 100 mg 4-10 100 mg ity of tablet 16:46: tablet [address] aspirin 325 0 Yes 325mg Take 325 U nivers mg tablet 4-10 mg by ity of 16:46: mouth. [address] losartan 0 Yes losartan Unive rs 100 mg 4-10 100 mg ity of tablet 16:46: tablet [address] aspirin 325 2021-0 Yes 325mg Take 325 U nivers mg tablet 4-10 mg by ity of 16:46: mouth. [address] furosemide 2021-0 Yes furosemide U nivers 40 mg 4-10 40 mg ity of tablet 16:45: tablet [address] furosemide 0 Yes furosemide U nivers 40 mg 4-10 40 mg ity of tablet 16:45: tablet [address] furosemide Yes furosemide U nivers 40 mg 4-10 40 mg ity of tablet 16:45: tablet [address] furosemide Yes furosemide U nivers 40 mg 4-10 40 mg ity of tablet 16:45: tablet [address] furosemide Yes furosemide U nivers 40 mg 4-10 40 mg ity of tablet 16:45: tablet [address] furosemide Yes furosemide U nivers 40 mg 4-10 40 mg ity of tablet 16:45: tablet [address] furosemide Yes furosemide U nivers 40 mg 4-10 40 mg ity of tablet 16:45: tablet [address] furosemide Yes furosemide U nivers 40 mg 4-10 40 mg ity of tablet 16:45: tablet [address] furosemide Yes furosemide U nivers 40 mg 4-10 40 mg ity of tablet 16:45: tablet [address] furosemide Yes furosemide U nivers 40 mg 4-10 40 mg ity of tablet 16:45: tablet [address] SITagliptin Yes Januvia Uni vers (JANUVIA) 4-10 100 mg ity of 100 mg 16:43: tablet [place] tablet [address] [place] [address] SITagliptin Yes Januvia Uni vers (JANUVIA) 4-10 100 mg ity of 100 mg 16:43: tablet [place] tablet 45 [facility] SITagliptin Yes Januvia Uni vers (JANUVIA) 4-10 100 mg ity of 100 mg 16:43: tablet [place] tablet 45 [facility] SITagliptin Yes Januvia Uni vers (JANUVIA) 4-10 100 mg ity of 100 mg 16:43: tablet [place] tablet 45 [facility] SITagliptin Yes Januvia Uni vers (JANUVIA) 4-10 100 mg ity of 100 mg 16:43: tablet [place] tablet 45 [facility] SITagliptin Yes Januvia Uni vers (JANUVIA) 4-10 100 mg ity of 100 mg 16:43: tablet [place] tablet 45 [facility] SITagliptin Yes Januvia Uni vers (JANUVIA) 4-10 [...] sodium ity of tablet 16:42: 100 mcg [place] 24 [facility] amiodarone Yes amiodarone U nivers 200 mg 4-10 200 mg ity of tablet 16:42: tablet [address] digoxin 250 Yes digoxin Uni vers mcg (0.25 4-10 250 mcg ity of mg) tablet 16:42: (0.25 mg[place] 24 [place] [facility] finasteride Yes finasterid Univers 5 mg tablet 4-10 e 5 mg ity of 16:42: tablet [place] 24 TAKE ONE Medical TABLET BY Branch MOUTH DAILY oxybutynin Yes oxybutynin U nivers chloride 5 4-10 chloride 5 ity of mg tablet 16:42: mg tablet [place] 24 [facility] levothyroxi Yes levothyrox Univers ne 100 mcg 4-10 ine sodium ity of tablet 16:42: 100 mcg [place] 24 [facility] amiodarone Yes amiodarone U nivers 200 mg 4-10 200 mg ity of tablet 16:42: tablet [address] Branch digoxin 250 Yes digoxin Uni vers mcg (0.25 4-10 250 mcg ity of mg) tablet 16:42: (0.25 mg) [place] 24 tablet [facility] finasteride Yes finasterid Univers 5 mg tablet 4-10 e 5 mg ity of 16:42: tablet [place] 24 TAKE ONE Medical TABLET BY Branch MOUTH DAILY oxybutynin Yes oxybutynin U nivers chloride 5 4-10 chloride 5 ity of mg tablet 16:42: mg tablet [place] 24 [facility] levothyroxi Yes levothyrox Univers ne 100 mcg 4-10 ine sodium ity of tablet 16:42: 100 mcg [place] [address] [place] [address] amiodarone Yes amiodarone U nivers 200 mg 4-10 200 mg ity of tablet 16:42: tablet [address] digoxin 250 Yes digoxin Uni vers mcg (0.25 4-10 250 mcg ity of mg) tablet 16:42: (0.25 mg) [place] 24 tablet [facility] finasteride Yes finasterid Univers 5 mg tablet 4-10 e 5 mg ity of 16:42: tablet [place] [address] TAKE ONE Medical TABLET BY Branch MOUTH DAILY oxybutynin Yes oxybutynin U nivers chloride 5 4-10 chloride 5 ity of mg tablet 16:42: mg tablet [place] as [address] [place] [address] levothyroxi Yes levothyrox Univers ne 100 mcg 4-10 ine sodium ity of tablet 16:42: [address] amiodarone Yes amiodarone U nivers 200 mg 4-10 200 mg ity of tablet 16:42: tablet [address] digoxin 250 Yes digoxin Uni vers mcg (0.25 4-10 250 mcg ity of mg) tablet 16:42: (0.25 mg) [place] 24 tablet [facility] finasteride Yes finasterid Univers 5 mg tablet 4-10 e 5 mg ity of 16:42: tablet [place] [address] TAKE ONE Medical TABLET BY Branch MOUTH DAILY oxybutynin Yes oxybutynin U nivers chloride 5 4-10 chloride 5 ity of mg tablet 16:42: mg tablet [place] as [address] [place] [address] levothyroxi Yes levothyrox Univers ne 100 mcg 4-10 ine sodium ity of tablet 16:42: [address] amiodarone Yes amiodarone U nivers 200 mg 4-10 200 mg ity of tablet 16:42: tablet [address] digoxin 250 Yes digoxin Uni vers mcg (0.25 4-10 250 mcg ity of mg) tablet 16:42: (0.25 mg) [place] 24 tablet Medical Branch finasteride Yes finasterid Univers 5 mg tablet 4-10 e 5 mg ity of 16:42: tablet [place] 24 TAKE ONE Medical TABLET BY Branch MOUTH DAILY oxybutynin Yes oxybutynin U nivers chloride 5 4-10 chloride 5 ity of mg tablet 16:42: mg tablet [place] 24 [facility] levothyroxi Yes levothyrox Univers ne 100 mcg 4-10 ine sodium ity of tablet 16:42: 100 mcg [place] [address] [place] [address] amiodarone Yes amiodarone U nivers 200 mg 4-10 200 mg ity of tablet 16:42: tablet [address] digoxin 250 Yes digoxin Uni vers mcg (0.25 4-10 250 mcg ity of mg) tablet 16:42: (0.25 mg) [place] 24 tablet [facility] finasteride Yes finasterid Univers 5 mg tablet 4-10 e 5 mg ity of 16:42: tablet [place] 24 TAKE ONE Medical TABLET BY Branch MOUTH DAILY oxybutynin Yes oxybutynin U nivers chloride 5 4-10 chloride 5 ity of mg tablet 16:42: mg tablet [place] 24 [facility] levothyroxi Yes levothyrox Univers ne 100 mcg 4-10 ine sodium ity of tablet 16:42: [address] [place] [address] amiodarone Yes amiodarone U nivers 200 mg 4-10 200 mg ity of tablet 16:42: tablet [address] digoxin 250 Yes digoxin Uni vers mcg (0.25 4-10 250 mcg ity of mg) tablet 16:42: (0.25 mg) [place] 24 tablet Medical Branch finasteride Yes finasterid Univers 5 mg tablet 4-10 e 5 mg ity of 16:42: tablet [place] 24 TAKE ONE Medical TABLET BY Branch MOUTH DAILY oxybutynin Yes oxybutynin U nivers chloride 5 4-10 chloride 5 ity of mg tablet 16:42: mg tablet [place] 24 [facility] levothyroxi Yes levothyrox Univers ne 100 mcg 4-10 ine sodium ity of tablet 16:42: [address] amiodarone Yes amiodarone U nivers 200 mg 4-10 200 mg ity of tablet 16:42: tablet [address] digoxin 250 Yes digoxin Uni vers mcg (0.25 4-10 250 mcg ity of mg) tablet 16:42: (0.25 mg) [place] 24 tablet [facility] finasteride Yes finasterid Univers 5 mg tablet 4-10 e 5 mg ity of 16:42: tablet [place] [address] TAKE ONE Medical TABLET BY Branch MOUTH DAILY oxybutynin Yes oxybutynin U nivers chloride 5 4-10 chloride 5 ity of mg tablet 16:42: mg tablet [place] as [address] [place] [address] levothyroxi Yes levothyrox Univers ne 100 mcg 4-10 ine sodium ity of tablet 16:42: [address] amiodarone Yes amiodarone U nivers 200 mg 4-10 200 mg ity of tablet 16:42: tablet [address] digoxin 250 Yes digoxin Uni vers mcg (0.25 4-10 250 mcg ity of mg) tablet 16:42: (0.25 mg) [place] 24 tablet [facility] finasteride Yes finasterid Univers 5 mg tablet 4-10 e 5 mg ity of 16:42: tablet [place] [address] TAKE ONE Medical TABLET BY Branch MOUTH DAILY oxybutynin Yes oxybutynin U nivers chloride 5 4-10 chloride 5 ity of mg tablet 16:42: mg tablet [place] as [address] [place] [address] levothyroxi Yes levothyrox Univers ne 100 mcg 4-10 ine sodium ity of tablet 16:42: [address] amiodarone Yes amiodarone U nivers 200 mg 4-10 200 mg ity of tablet 16:42: tablet [address] digoxin 250 Yes digoxin Uni vers mcg (0.25 4-10 250 mcg ity of mg) tablet 16:42: (0.25 mg) [place] 24 tablet [facility] finasteride Yes finasterid Univers 5 mg tablet 4-10 e 5 mg ity of 16:42: tablet [place] 24 TAKE ONE Medical TABLET BY Branch MOUTH DAILY oxybutynin 2021-0 Yes oxybutynin U nivers chloride 5 4-10 chloride 5 ity of mg tablet 16:42: mg tablet [place] 24 Medical Branch clopidogreL 2021-0 Yes Univer s 75 mg 3-06 ity of tablet 00:00: [place] 00 Medical Branch metoprolol 2021-0 Yes Univers tartrate 50 3-06 ity of mg tablet 00:00: [place] 00 Medical Branch clopidogreL 2-0 Yes Univer s 75 mg 3-06 ity of tablet 00:00: [place] [facility] metoprolol 2021-0 Yes Univers tartrate 50 3-06 ity of mg tablet 00:00: [place] [facility] clopidogreL 2021-0 Yes Univer s 75 mg 3-06 ity of tablet 00:00: [place] 00 Medical [facility] metoprolol 2-0 Yes [facility] tartrate 50 3-06 ity of mg tablet 00:00: [place] [facility] clopidogreL 2-0 Yes [facility] 75 mg 3-06 ity of tablet 00:00: [place] [facility] metoprolol 2021-0 Yes [facility] tartrate 50 3-06 ity of mg tablet 00:00: [place] [facility] clopidogreL 2-0 Yes [facility] 75 mg 3-06 ity of tablet 00:00: [place] [facility] metoprolol 2-0 Yes [facility] tartrate 50 3-06 ity of mg tablet 00:00: [place] [facility] clopidogreL 2-0 Yes [facility] 75 mg 3-06 ity of tablet 00:00: [place] 00 [facility] metoprolol 2-0 Yes [facility] tartrate 50 3-06 ity of mg tablet 00:00: [place] [address] [facility] clopidogreL 2022-0 Yes Univer s 75 mg 3-06 ity of tablet 00:00: [place] [facility] metoprolol 2-0 Yes [facility] tartrate 50 3-06 ity of mg tablet 00:00: [place] [facility] clopidogreL 2-0 Yes [facility] 75 mg 3-06 ity of tablet 00:00: [place] [facility] metoprolol 2-0 Yes [facility] tartrate 50 3-06 ity of mg tablet 00:00: [place] [facility] clopidogreL 2-0 Yes [facility] 75 mg 3-06 ity of tablet 00:00: [place] [facility] metoprolol 2-0 Yes [facility] tartrate 50 3-06 ity of mg tablet 00:00: [place] [address] [facility] clopidogreL 2-0 Yes Un[facility] s 75 mg 3-06 ity of tablet 00:00: [place] [address] [facility] metoprolol 2-0 Yes [facility] tartrate 50 3-06 ity of mg tablet 00:00: [place] [address] [facility] warfarin 5 2-0 Yes [facility] mg tablet 2-18 ity of 00:00: [place] [address] [facility] warfarin 5 2021-0 Yes [facility] mg tablet 2-18 ity of 00:00: [place] [address] [facility] warfarin 5 2021-0 Yes [facility] mg tablet 2-18 ity of 00:00: [place] [address] [facility] warfarin 5 2021-0 Yes [facility] mg tablet 2-18 ity of 00:00: [place] [address] [facility] warfarin 5 2-0 Yes [facility] mg tablet 2-18 ity of 00:00: [place] [address] [facility] warfarin 5 2021-0 Yes [facility] mg tablet 2-18 ity of 00:00: [place] [address] [facility] warfarin 5 2021-0 Yes [facility] mg tablet 2-18 ity of 00:00: [place] [address] [facility] warfarin 5 2021-0 Yes [facility] mg tablet 2-18 ity of 00:00: [place] [address] [facility] warfarin 5 2021-0 Yes [facility] mg tablet 2-18 ity of 00:00: [address] Branch warfarin 5 2-0 Yes [facility] mg tablet 2-18 ity of 00:00: [address] Branch tamsulosin 2-0 Yes Univers 0.4 mg 24 1-07 ity of hr capsule 00:00: [place] [address] [facility] tamsulosin 2-0 Yes [facility] 0.4 mg 24 1-07 ity of hr capsule 00:00: [place] [address] [facility] tamsulosin 2-0 Yes [facility] 0.4 mg 24 1-07 ity of hr capsule 00:00: [place] [address] [facility] tamsulosin 2-0 Yes [facility] 0.4 mg 24 1-07 ity of hr capsule 00:00: [address] Branch tamsulosin 2-0 Yes [facility] 0.4 mg 24 1-07 ity of hr capsule 00:00: [place] [address] [facility] Branch tamsulosin 2022-0 Yes [facility] 0.4 mg 24 1-07 ity of hr capsule 00:00: [facility] Branch tamsulosin 2-0 Yes Univers 0.4 mg 24 1-07 ity of hr capsule 00:00: [place] [facility] tamsulosin 2-0 Yes Univers 0.4 mg 24 1-07 ity of hr capsule 00:00: [place] [facility] tamsulosin 2-0 Yes Univers 0.4 mg 24 1-07 ity of hr capsule 00:00: [place] [facility] tamsulosin 2-0 Yes Univers 0.4 mg 24 1-07 ity of hr capsule 00:00: [place] [facility] metFORMIN 2022-0 Yes Univers 1,000 mg 1-05 ity of tablet 00:00: [place] [facility] metFORMIN 2022-0 Yes Univers 1,000 mg 1-05 ity of tablet 00:00: [place] [facility] metFORMIN 2022-0 Yes Univers 1,000 mg 1-05 ity of tablet 00:00: [place] [facility] metFORMIN 2022-0 Yes Univers 1,000 mg 1-05 ity of tablet 00:00: [place] [facility] metFORMIN 2022-0 Yes Univers 1,000 mg 1-05 ity of tablet 00:00: [place] [facility] metFORMIN 2022-0 Yes Univers 1,000 mg 1-05 ity of tablet 00:00: [place] [facility] metFORMIN 2022-0 Yes Univers 1,000 mg 1-05 ity of tablet 00:00: [place] [facility] metFORMIN 2022-0 Yes Univers 1,000 mg 1-05 ity of tablet 00:00: [place] [facility] metFORMIN 2022-0 Yes Univers 1,000 mg 1-05 ity of tablet 00:00: [place] [facility] metFORMIN 2022-0 Yes Univers 1,000 mg 1-05 ity of tablet 00:00: [place] [facility] nitroglycer 2-0 Yes Univer s in 0.4 mg 1-04 ity of sublingual 00:00: [place] tablet [facility] nitroglycer 2022-0 Yes Univer s in 0.4 mg 1-04 ity of sublingual 00:00: [place] tablet [facility] nitroglycer 2-0 Yes Univer s in 0.4 mg 1-04 ity of sublingual 00:00: [place] tablet 00 [facility] nitroglycer Yes Univer s in 0.4 mg 1-04 ity of sublingual 00:00: [place] tablet 00 [facility] nitroglycer Yes Univer s in 0.4 mg 1-04 ity of sublingual 00:00: [place] tablet 00 [facility] nitroglycer Yes Univer s in 0.4 mg 1-04 ity of sublingual 00:00: [place] tablet [facility] nitroglycer Yes Univer s in 0.4 mg 1-04 ity of sublingual 00:00: [place] tablet [facility] nitroglycer Yes Univer s in 0.4 mg 1-04 ity of sublingual 00:00: [place] tablet [facility] nitroglycer Yes Univer s in 0.4 mg 1-04 ity of sublingual 00:00: [place] tablet [facility] nitroglycer Yes Univer s in 0.4 mg 1-04 ity of sublingual 00:00: [place] tablet 00 [facility] metFORMIN Yes 1000mg Take 1,[address] [facility] (GLUCOPHAGE 8-10 mg by [facility] ) 1000 MG 13:35: mouth 2 Medic al tablet 16 (two) Center times daily with breakfast and dinner. losartan Yes 100mg QD Take [address] [facility] (COZAAR) 8-10 mg by [facility] 100 MG 13:35: mouth Medical tablet 16 daily. [place] levothyroxi Yes 100ug Take [address] ne 8-10 mcg by [facility] (SYNTHROID, 13:35: mouth Medic al LEVOTHROID) 16 Every Center 100 MCG morning on tablet an empty stomach. SITagliptin Yes 100mg QD Take [address] (JANUVIA) 8-10 mg by [facility] 100 MG 13:35: mouth Medical tablet 16 daily. [place] glimepiride Yes 4mg Q.5D Take 4 mg [...] mouth Medica l 24 hr 16 daily. [place] capsule finasteride Yes 5mg QD Take 5 [...] [facility] 13:35: mouth Medical 16 nightly . [place] magnesium Yes 500mg Q.5D Take [address] [facility] gluconate 8-10 mg by [facility] (MAGONATE) 13:35: mouth 2 Medi leta 27.5 mg 16 (two) Center magne- sium times (500 mg) daily. tablet amLODIPine Yes 5mg QD Take [address] [facility] [address] [facility] (NORVASC) 8-10 by mouth [facility] 2.5 MG 13:35: daily. Medical tablet 16 [place] metFORMIN Yes 1000mg Take 1,[address] [facility] (GLUCOPHAGE 8-10 mg by [facility] ) 1000 MG 13:35: mouth 2 Medic al tablet 16 (two) Center times daily with breakfast and dinner. losartan Yes 100mg QD Take [address] [facility] (COZAAR) 8-10 mg by [facility] 100 MG 13:35: mouth Medical tablet 16 daily. [place] levothyroxi Yes 100ug Take [address] ne 8-10 mcg by [facility] (SYNTHROID, 13:35: mouth Medic al LEVOTHROID) 16 Every Center 100 MCG morning on tablet an empty stomach. SITagliptin Yes 100mg QD Take [address] (JANUVIA) 8-10 mg by [facility] 100 MG 13:35: mouth Medical tablet 16 daily. [place] glimepiride Yes 4mg Q.5D Take 4 mg [...] [facility] 13:35: mouth Medical 16 nightly . [place] magnesium Yes 500mg Q.5D Take [address] [facility] [address] gluconate 8-10 mg by [facility] (MAGONATE) 13:35: mouth 2 Medi leta 27.5 mg 16 (two) Center magne- sium times (500 mg) daily. tablet amLODIPine Yes 5mg QD Take [address] [facility] [address] [facility] (NORVASC) 8-10 by mouth [facility] 2.5 MG 13:35: daily. Medical tablet 16 [place] metFORMIN Yes 1000mg Take 1,[address] [facility] (GLUCOPHAGE 8-10 mg by [facility] ) 1000 MG 13:35: mouth 2 Medic al tablet 16 (two) Center times daily with breakfast and dinner. losartan Yes 100mg QD Take [address] [facility] (COZAAR) 8-10 mg by [facility] 100 MG 13:35: mouth Medical tablet 16 daily. [place] levothyroxi Yes 100ug Take 100 [facility] [...] MG tablet 13:35: nightly. Medi leta 16 [place] tamsulosin Yes .4mg QD Take 0.[address] [facility] (FLOMAX) 8-10 mg by [facility] 0.4 mg Cap 13:35: mouth Medica l 24 hr 16 daily. [place] capsule finasteride Yes 5mg QD Take [address] (PROSCAR) 5 8-10 by mouth [facility] mg tablet 13:35: nightly . Med ical 16 [place] fluticasone Yes 1{spray QD [address] [facility] propionate 8-10 } Nasal [facility] (FLONASE) 13:35: route Medical 50 16 daily. [place] mcg/actuati on nasal spray aspirin 325 Yes 325mg QD Take [address] MG tablet 8-10 mg by [facility] 13:35: mouth Medical 16 nightly . [place] magnesium Yes 500mg Q.5D Take [address] [facility] [address] gluconate 8-10 mg by [facility] (MAGONATE) 13:35: mouth 2 Medi leta 27.5 mg 16 (two) Center magne- sium times (500 mg) daily. tablet amLODIPine Yes 5mg QD Take [address] [facility] [address] [facility] (NORVASC) 8-10 by mouth [facility] 2.5 MG 13:35: daily. Medical tablet 16 [place] metFORMIN Yes 1000mg Take 1,[address] [facility] (GLUCOPHAGE 8-10 mg by [facility] ) 1000 MG 13:35: mouth 2 Medic al tablet 16 (two) Center times daily with breakfast and dinner. losartan Yes 100mg QD Take [address] [facility] (COZAAR) 8-10 mg by [facility] 100 MG 13:35: mouth Medical tablet 16 daily. [place] levothyroxi Yes 100ug Take 100 [facility] [...] MG tablet 13:35: nightly. Medi leta 16 [place] tamsulosin Yes .4mg QD Take 0.[address] [facility] (FLOMAX) 8-10 mg by [facility] 0.4 mg Cap 13:35: mouth Medica l 24 hr 16 daily. [place] capsule finasteride Yes 5mg QD Take [address] (PROSCAR) 5 8-10 by mouth [facility] mg tablet 13:35: nightly . Med ical 16 [place] fluticasone Yes 1{spray QD [address] [facility] propionate 8-10 } Nasal [facility] (FLONASE) 13:35: route Medical 50 16 daily. Center mcg/actuati on nasal spray aspirin 325 Yes 325mg QD Take [address] MG tablet 8-10 mg by [facility] 13:35: mouth Medical 16 nightly . [place] magnesium Yes 500mg Q.5D Take [address] [facility] [address] gluconate 8-10 mg by [facility] (MAGONATE) 13:35: mouth 2 Medi leta 27.5 mg 16 (two) [place] magne- sium times (500 mg) daily. tablet amLODIPine Yes 5mg QD Take [address] [facility] (NORVASC) 8-10 by mouth [facility] 2.5 MG 13:35: daily. Medical tablet 16 [place] metFORMIN Yes 1000mg Take 1,[address] [facility] (GLUCOPHAGE 8-10 mg by [facility] ) 1000 MG 13:35: mouth 2 Medic al tablet 16 (two) Center times daily with breakfast and dinner. losartan Yes 100mg QD Take [address] [facility] (COZAAR) 8-10 mg by [facility] 100 MG 13:35: mouth Medical tablet 16 daily. [place] levothyroxi Yes 100ug Take 100 [facility] [...] [facility] 13:35: mouth Medical 16 nightly . [place] magnesium Yes 500mg Q.5D Take 500 [facility] [...] MG tablet 13:35: nightly. Medi leta 16 [place] tamsulosin Yes .4mg QD Take 0.[address] [facility] (FLOMAX) 8-10 mg by [facility] 0.4 mg Cap 13:35: mouth Medica l 24 hr 16 daily. [place] capsule finasteride Yes 5mg QD Take [address] (PROSCAR) 5 8-10 by mouth [facility] mg tablet 13:35: nightly . Med ical 16 [place] fluticasone Yes 1{spray QD [address] [facility] propionate 8-10 } Nasal [facility] (FLONASE) 13:35: route Medical 50 16 daily. Center mcg/actuati on nasal spray aspirin 325 Yes 325mg QD Take [address] MG tablet 8-10 mg by [facility] 13:35: mouth Medical 16 nightly . [place] magnesium Yes 500mg Q.5D Take [address] gluconate 8-10 mg by [facility] (MAGONATE) 13:35: mouth 2 Medi leta 27.5 mg 16 (two) Center magne- sium times (500 mg) daily. tablet amLODIPine Yes 5mg QD Take [address] [facility] (NORVASC) 8-10 by mouth [facility] 2.5 MG 13:35: daily. Medical tablet 16 [place] metFORMIN Yes 1000mg Take 1,[address] [...] 2.5 MG 13:35: daily. Medical tablet 16 [place] metFORMIN Yes 1000mg Take 1,[address] [facility] (GLUCOPHAGE 8-10 mg by [facility] ) 1000 MG 13:35: mouth 2 Medic al tablet 16 (two) Center times daily with breakfast and dinner. losartan Yes 100mg QD Take [address] [facility] (COZAAR) 8-10 mg by [facility] 100 MG 13:35: mouth Medical tablet 16 daily. [place] levothyroxi Yes 100ug Take [address] ne 8-10 mcg by [facility] (SYNTHROID, 13:35: mouth Medic al LEVOTHROID) 16 Every Center 100 MCG morning on tablet an empty stomach. SITagliptin Yes 100mg QD Take [address] (JANUVIA) 8-10 mg by [facility] 100 MG 13:35: mouth Medical tablet 16 daily. [place] glimepiride Yes 4mg Q.5D Take [address] (AMARYL) 4 8-10 by mouth 2 Óscar es MG tablet 13:35: (two) Medical 16 times Center daily. simvastatin Yes 20mg QD Take [address] [facility] (ZOCOR) 20 8-10 by mouth [facility] MG tablet 13:35: nightly. Medi leta 16 [place] tamsulosin Yes .4mg QD Take 0.[address] [facility] (FLOMAX) 8-10 mg by [facility] 0.4 mg Cap 13:35: mouth Medica l 24 hr 16 daily. [place] capsule finasteride Yes 5mg QD Take [address] (PROSCAR) 5 8-10 by mouth [facility] mg tablet 13:35: nightly . Med ical 16 [place] fluticasone Yes 1{spray QD [address] [facility] propionate 8-10 } Nasal [facility] (FLONASE) 13:35: route Medical 50 16 daily. [place] mcg/actuati on nasal spray aspirin 325 Yes 325mg QD Take [address] MG tablet 8-10 mg by [facility] 13:35: mouth Medical 16 nightly . [place] magnesium Yes 500mg Q.5D Take [address] [facility] [address] gluconate 8-10 mg by [facility] (MAGONATE) 13:35: mouth 2 Medi leta 27.5 mg 16 (two) Center magne- sium times (500 mg) daily. tablet amLODIPine Yes 5mg QD Take [address] [facility] [address] [facility] (NORVASC) 8-10 by mouth [facility] 2.5 MG 13:35: daily. Medical tablet 16 [place] metFORMIN Yes 1000mg Take 1,[address] [facility] (GLUCOPHAGE 8-10 mg by [facility] ) 1000 MG 13:35: mouth 2 Medic al tablet 16 (two) Center times daily with breakfast and dinner. losartan Yes 100mg QD Take [address] [facility] (COZAAR) 8-10 mg by [facility] 100 MG 13:35: mouth Medical tablet 16 daily. [place] levothyroxi Yes 100ug Take [address] ne 8-10 mcg by [facility] (SYNTHROID, 13:35: mouth Medic al LEVOTHROID) 16 Every Center 100 MCG morning on tablet an empty stomach. SITagliptin Yes 100mg QD Take [address] (JANUVIA) 8-10 mg by [facility] 100 MG 13:35: mouth Medical tablet 16 daily. [place] glimepiride Yes 4mg Q.5D Take [address] (AMARYL) 4 8-10 by mouth 2 [place] MG tablet 13:35: (two) Medical 16 times Center daily. simvastatin Yes 20mg QD Take [address] [facility] (ZOCOR) 20 8-10 by mouth [facility] MG tablet 13:35: nightly. Medi leta 16 [place] tamsulosin Yes .4mg QD Take 0.[address] [facility] (FLOMAX) 8-10 mg by [facility] 0.4 mg Cap 13:35: mouth Medica l 24 hr 16 daily. [place] capsule finasteride Yes 5mg QD Take [address] (PROSCAR) 5 8-10 by mouth [facility] mg tablet 13:35: nightly . Med ical 16 [place] fluticasone Yes 1{spray QD [address] [facility] propionate 8-10 } Nasal [facility] (FLONASE) 13:35: route Medical 50 16 daily. [place] mcg/actuati on nasal spray aspirin 325 2021-0 Yes 325mg QD Take 325 [facility] [...] 2.5 MG 13:35: daily. Medical tablet 16 [place] metFORMIN Yes 1000mg Take 1,[address] [facility] (GLUCOPHAGE 8-10 mg by [facility] ) 1000 MG 13:35: mouth 2 Medic al tablet 16 (two) Center times daily with breakfast and dinner. losartan Yes 100mg QD Take [address] [facility] (COZAAR) 8-10 mg by [facility] 100 MG 13:35: mouth Medical tablet 16 daily. [place] levothyroxi Yes 100ug Take [address] ne 8-10 mcg by [facility] (SYNTHROID, 13:35: mouth Medic al LEVOTHROID) 16 Every Center 100 MCG morning on tablet an empty stomach. SITagliptin Yes 100mg QD Take [address] (JANUVIA) 8-10 mg by [facility] 100 MG 13:35: mouth Medical tablet 16 daily. [place] glimepiride Yes 4mg Q.5D Take [address] (AMARYL) 4 8-10 by mouth 2 [place] es MG tablet 13:35: (two) Medical 16 times Center daily. simvastatin Yes 20mg QD Take [address] [facility] (ZOCOR) 20 8-10 by mouth [facility] MG tablet 13:35: nightly. Medi leta 16 [place] tamsulosin Yes .4mg QD Take 0.[address] [facility] (FLOMAX) 8-10 mg by [facility] 0.4 mg Cap 13:35: mouth Medica l 24 hr 16 daily. [place] capsule finasteride Yes 5mg QD Take 5 [...] 2.5 MG 13:35: daily. Medical tablet 16 [place] metFORMIN Yes 1000mg Take 1,[address] [facility] (GLUCOPHAGE 8-10 mg by [facility] ) 1000 MG 13:35: mouth 2 Medic al tablet 16 (two) Center times daily with breakfast and dinner. losartan Yes 100mg QD Take [address] [facility] (COZAAR) 8-10 mg by [facility] 100 MG 13:35: mouth Medical tablet 16 daily. [place] levothyroxi Yes 100ug Take [address] ne 8-10 mcg by [facility] (SYNTHROID, 13:35: mouth Medic al LEVOTHROID) 16 Every Center 100 MCG morning on tablet an empty stomach. SITagliptin Yes 100mg QD Take [address] (JANUVIA) 8-10 mg by [facility] 100 MG 13:35: mouth Medical tablet 16 daily. [place] glimepiride Yes 4mg Q.5D Take 4 mg [...] mouth Medica l 24 hr 16 daily. [place] capsule finasteride 2021-0 Yes 5mg QD Take 5 mg C [...] 2.5 MG 13:35: daily. Medical tablet 16 [place] metFORMIN Yes 1000mg Take 1,[address] [facility] (GLUCOPHAGE 8-10 mg by [facility] ) 1000 MG 13:35: mouth 2 Medic al tablet 16 (two) Center times daily with breakfast and dinner. losartan Yes 100mg QD Take [address] [facility] (COZAAR) 8-10 mg by [facility] 100 MG 13:35: mouth Medical tablet 16 daily. [place] levothyroxi Yes 100ug Take [address] ne 8-10 mcg by [facility] (SYNTHROID, 13:35: mouth Medic al LEVOTHROID) 16 Every Center 100 MCG morning on tablet an empty stomach. SITagliptin Yes 100mg QD Take [address] (JANUVIA) 8-10 mg by [facility] 100 MG 13:35: mouth Medical tablet 16 daily. [place] glimepiride Yes 4mg Q.5D Take [address] (AMARYL) 4 8-10 by mouth 2 [place] es MG tablet 13:35: (two) Medical 16 times Center daily. simvastatin Yes 20mg QD Take [address] [facility] (ZOCOR) 20 8-10 by mouth [facility] MG tablet 13:35: nightly. Medi leta 16 [place] tamsulosin Yes .4mg QD Take 0.[address] [facility] (FLOMAX) 8-10 mg by [facility] 0.4 mg Cap 13:35: mouth Medica l 24 hr 16 daily. [place] capsule finasteride Yes 5mg QD Take [address] (PROSCAR) 5 8-10 by mouth [facility] mg tablet 13:35: nightly . Med ical 16 [place] fluticasone Yes 1{spray QD [address] [facility] propionate 8-10 } Nasal [facility] (FLONASE) 13:35: route Medical 50 16 daily. Center mcg/actuati on nasal spray aspirin 325 Yes 325mg QD Take [address] MG tablet 8-10 mg by [facility] 13:35: mouth Medical 16 nightly . [place] magnesium Yes 500mg Q.5D Take [address] [facility] [address] gluconate 8-10 mg by [facility] (MAGONATE) 13:35: mouth 2 Medi leta 27.5 mg 16 (two) Center magne- sium times (500 mg) daily. tablet amLODIPine Yes 5mg QD Take [address] [facility] [address] [facility] (NORVASC) 8-10 by mouth [facility] 2.5 MG 13:35: daily. Medical tablet 16 [place] metFORMIN Yes 1000mg Take 1,[address] [facility] (GLUCOPHAGE 8-10 mg by [facility] ) 1000 MG 13:35: mouth 2 Medic al tablet 16 (two) Center times daily with breakfast and dinner. losartan Yes 100mg QD Take [address] [facility] (COZAAR) 8-10 mg by [facility] 100 MG 13:35: mouth Medical tablet 16 daily. [place] levothyroxi Yes 100ug Take [address] ne 8-10 mcg by [facility] (SYNTHROID, 13:35: mouth Medic al LEVOTHROID) 16 Every Center 100 MCG morning on tablet an empty stomach. SITagliptin Yes 100mg QD Take [address] (JANUVIA) 8-10 mg by [facility] 100 MG 13:35: mouth Medical tablet 16 daily. [place] glimepiride Yes 4mg Q.5D Take [address] (AMARYL) 4 8-10 by mouth 2 [place] es MG tablet 13:35: (two) Medical 16 times Center daily. simvastatin 2021-0 Yes 20mg QD Take [address] [facility] (ZOCOR) 20 8-10 by mouth [facility] MG tablet 13:35: nightly. Medi leta 16 [place] tamsulosin Yes .4mg QD Take 0.[address] [facility] (FLOMAX) 8-10 mg by [facility] 0.4 mg Cap 13:35: mouth Medica l 24 hr 16 daily. [place] capsule finasteride Yes 5mg QD Take [address] (PROSCAR) 5 8-10 by mouth [facility] mg tablet 13:35: nightly . Med ical 16 [place] fluticasone Yes 1{spray QD [address] [facility] propionate 8-10 } Nasal [facility] (FLONASE) 13:35: route Medical 50 16 daily. [place] mcg/actuati on nasal spray aspirin 325 Yes 325mg QD Take [address] MG tablet 8-10 mg by [facility] 13:35: mouth Medical 16 nightly . [place] magnesium Yes 500mg Q.5D Take [address] [facility] [address] gluconate 8-10 mg by [facility] (MAGONATE) 13:35: mouth 2 Medi leta 27.5 mg 16 (two) Center magne- sium times (500 mg) daily. tablet amLODIPine Yes 5mg QD Take [address] [facility] (NORVASC) 8-10 by mouth [facility] 2.5 MG 13:35: daily. Medical tablet 16 [place] metFORMIN Yes 1000mg Take 1,[address] [facility] (GLUCOPHAGE 8-10 mg by [facility] ) 1000 MG 13:35: mouth 2 Medic al tablet 16 (two) Center times daily with breakfast and dinner. losartan Yes 100mg QD Take [address] [facility] (COZAAR) 8-10 mg by [facility] 100 MG 13:35: mouth Medical tablet 16 daily. [place] levothyroxi Yes 100ug Take [address] ne 8-10 mcg by [facility] (SYNTHROID, 13:35: mouth Medic al LEVOTHROID) 16 Every Center 100 MCG morning on tablet an empty stomach. SITagliptin Yes 100mg QD Take [address] (JANUVIA) 8-10 mg by [facility] 100 MG 13:35: mouth Medical tablet 16 daily. [place] glimepiride 2021-0 Yes 4mg Q.5D Take 4 mg C [...] mouth Medica l 24 hr 16 daily. [place] capsule finasteride Yes 5mg QD Take [address] (PROSCAR) 5 8-10 by mouth [facility] mg tablet 13:35: nightly . Med ical 16 [place] fluticasone Yes 1{spray QD [address] [facility] propionate 8-10 } Nasal [facility] (FLONASE) 13:35: route Medical 50 16 daily. Center mcg/actuati on nasal spray aspirin 325 Yes 325mg QD Take [address] MG tablet 8-10 mg by [facility] 13:35: mouth Medical 16 nightly . [place] magnesium Yes 500mg Q.5D Take [address] [address] gluconate 8-10 mg by [facility] (MAGONATE) 13:35: mouth 2 Medi leta 27.5 mg 16 (two) Center magne- sium times (500 mg) daily. tablet amLODIPine Yes 5mg QD Take [address] [facility] [address] [facility] (NORVASC) 8-10 by mouth [facility] 2.5 MG 13:35: daily. Medical tablet 16 [place] metFORMIN Yes 1000mg Take 1,[address] [facility] (GLUCOPHAGE 8-10 mg by [facility] ) 1000 MG 13:35: mouth 2 Medic al tablet 16 (two) Center times daily with breakfast and dinner. losartan Yes 100mg QD Take [address] [facility] (COZAAR) 8-10 mg by [facility] 100 MG 13:35: mouth Medical tablet 16 daily. [place] levothyroxi Yes 100ug Take [address] ne 8-10 mcg by [facility] (SYNTHROID, 13:35: mouth Medic al LEVOTHROID) 16 Every Center 100 MCG morning on tablet an empty stomach. SITagliptin 2021-0 Yes 100mg QD Take 100 [facility] [...] mouth Medica l 24 hr 16 daily. [place] capsule finasteride Yes 5mg QD Take [address] (PROSCAR) 5 8-10 by mouth [facility] mg tablet 13:35: nightly . Med ical 16 [place] fluticasone Yes 1{spray QD [address] [facility] propionate 8-10 } Nasal [facility] (FLONASE) 13:35: route Medical 50 16 daily. Center mcg/actuati on nasal spray aspirin 325 Yes 325mg QD Take [address] MG tablet 8-10 mg by [facility] 13:35: mouth Medical 16 nightly . [place] magnesium Yes 500mg Q.5D Take [address] [facility] [address] gluconate 8-10 mg by [facility] (MAGONATE) 13:35: mouth 2 Medi leta 27.5 mg 16 (two) [place] magne- sium times (500 mg) daily. tablet amLODIPine Yes 5mg QD Take [address] [facility] (NORVASC) 8-10 by mouth [facility] 2.5 MG 13:35: daily. Medical tablet 16 [place] metFORMIN Yes 1000mg Take 1,[address] [facility] [...] [facility] 13:35: mouth Medical 16 nightly . [place] magnesium Yes 500mg Q.5D Take 500 [facility] [...] times daily with breakfast and dinner. losartan 2021-0 Yes 100mg QD Take [address] [...] MG tablet 13:35: nightly. Medi leta 16 [place] tamsulosin Yes .4mg QD Take 0.[address] [facility] [address] (FLOMAX) 8-10 mg by [facility] 0.4 mg Cap 13:35: mouth Medica l 24 hr 16 daily. [place] capsule finasteride Yes 5mg QD Take [address] (PROSCAR) 5 8-10 by mouth [facility] mg tablet 13:35: nightly . Med ical 16 [place] fluticasone Yes 1{spray QD [address] [facility] propionate 8-10 } Nasal [facility] (FLONASE) 13:35: route Medical 50 16 daily. Center mcg/actuati on nasal spray aspirin 325 Yes 325mg QD Take [address] MG tablet 8-10 mg by [facility] 13:35: mouth Medical 16 nightly . [place] magnesium Yes 500mg Q.5D Take [address] [address] gluconate 8-10 mg by [facility] (MAGONATE) 13:35: mouth 2 Medi leta 27.5 mg 16 (two) Center magne- sium times (500 mg) daily. tablet amLODIPine Yes 5mg QD Take [address] [facility] (NORVASC) 8-10 by mouth [facility] 2.5 MG 13:35: daily. Medical tablet 16 Center isosorbide [id number] No 60mg QD Take [address] [facility] [...] mouth Medical tablet 25 :00 daily . [place] diltiazem 2020- No 180mg QD Take 1 [...] St (NORVASC) 12-08 06-25 by mouth [facility] 2.5 MG 18:33: 00:00 daily. Medical tablet 16 :00 [place] losartan-hy Yes 1{tbl} Take 1 Un phong drochloroth 4-10 tablet by ity of iazide 10:29: mouth [place] (HYZAAR) 45 daily. MD 100-25 mg Anderso per tablet n [facility] [place] multivitami Yes 1{tbl} Take 1 Un phong n 4-10 tablet by ity of (multivitam 10:29: mouth [place] in) tab 45 daily. MD tablet [facility] [place] loratadine Yes 10mg Take 10 mg U nivers (CLARITIN) 4-10 by mouth ity o f 10 mg 10:29: as needed [place] tablet 45 for MD allergies. [facility] [place] magnesium Yes 500mg Take 500 Uni vers oxide 500 4-10 mg by ity of mg tablet 10:29: mouth [place] 45 twice MD daily. [facility] [place] cyanocobala Yes 2500ug Take 2,500 [facility] min 4-10 mcg by ity of (vitamin 10:29: mouth [place] B-12) 1000 45 daily. MD mcg tablet [facility] [place] cyanocobala Yes 2500ug Take 2,500 [facility] min 4-10 mcg by ity of (vitamin 10:29: mouth [place] B-12) 1000 45 daily. MD mcg tablet [facility] [place] losartanhy Yes 1{tbl} Take 1 Un phong drochloroth 4-10 tablet by ity of iazide 10:29: mouth [place] (HYZAAR) 45 daily. MD 100-25 mg [facility] per [facility] multivitami Yes 1{tbl} Take 1 Un phong n 4-10 tablet by ity of (multivitam 10:29: mouth [place] in) tab 45 daily. MD tablet [facility] [place] loratadine Yes 10mg Take 10 mg U nivers (CLARITIN) 4-10 by mouth ity o f 10 mg 10:29: as needed [place] tablet 45 for MD allergies. [facility] [place] magnesium Yes 500mg Take 500 Uni vers oxide 500 4-10 mg by ity of mg tablet 10:29: mouth [place] 45 twice MD daily. [facility] [place] cyanocobala Yes 2500ug Take 2,500 [facility] min 4-10 mcg by ity of (vitamin 10:29: mouth [place] B-12) 1000 45 daily. MD mcg tablet [facility] [place] losartan-hy Yes 1{tbl} Take 1 Un phong drochloroth 4-10 tablet by ity of iazide 10:29: mouth [place] (HYZAAR) 45 daily. MD 100-25 mg Anderso per tablet [facility] multivitami Yes 1{tbl} Take 1 Un phong n 4-10 tablet by ity of (multivitam 10:29: mouth [place] in) tab 45 daily. MD tablet [facility] [place] loratadine Yes 10mg Take 10 mg U nivers (CLARITIN) 4-10 by mouth ity o f 10 mg 10:29: as needed [place] tablet 45 for MD allergies. [facility] [place] magnesium Yes 500mg Take 500 Uni vers oxide 500 4-10 mg by ity of mg tablet 10:29: mouth [place] 45 twice MD daily. [facility] [place] cyanocobala Yes 2500ug Take 2,500 Univers min 4-10 mcg by ity of (vitamin 10:29: mouth [place] B-12) 1000 45 daily. MD mcg tablet [facility] [place] losartanhy Yes 1{tbl} Take 1 Un phong drochloroth 4-10 tablet by ity of iazide 10:29: mouth [place] (HYZAAR) 45 daily. MD 100-25 mg Anderso per tablet [facility] multivitami Yes 1{tbl} Take 1 Un phong n 4-10 tablet by ity of (multivitam 10:29: mouth [place] in) tab 45 daily. MD tablet [facility] [place] loratadine Yes 10mg Take 10 mg U nivers (CLARITIN) 4-10 by mouth ity o f 10 mg 10:29: as needed [place] tablet 45 for MD allergies. [facility] [place] magnesium Yes 500mg Take 500 Uni vers oxide 500 4-10 mg by ity of mg tablet 10:29: mouth [place] 45 twice MD daily. [facility] [place] cyanocobala Yes 2500ug Take 2,500 [facility] min 4-10 mcg by ity of (vitamin 10:29: mouth [place] B-12) 1000 45 daily. MD mcg tablet [facility] [place] losartan-hy Yes 1{tbl} Take 1 Un [place]ong drochloroth 4-10 tablet by ity of iazide 10:29: mouth [place] (HYZAAR) 45 daily. 100-25 mg Andbryanna per tablet [facility]lexi [facility] Yes 1{tbl} Take 1 Un phong n 4-10 tablet by ity of (multivitam 10:29: mouth [place] in) tab 45 daily. MD rosendo truong [facility] lorat[facility]ine Yes 10mg Take 10 mg U nivers (CLARITIN) 4-10 by mouth ity o f 10 mg 10:29: as needed [place] tablet 45 for MD allergies. Shad [facility] magnesium Yes 500mg Take 500 Uni vers oxide 500 4-10 mg by ity of mg tablet 10:29: mouth [place] 45 twice MD daily. Elmer alexi [facility] sil[facility]osin Yes 1{capsu Take 1 Uni vers (RAPAFLO) 8 2-24 le} capsule by it y of mg capsule 00:00: mouth [place] 00 daily. MD Shad truong [facility] sil[facility]osin Yes 1{capsu Take 1 Uni vers (RAPAFLO) 8 2-24 le} capsule by it y of mg capsule 00:00: mouth [place] 00 daily. MD Shad truong [facility] silodosin Yes 1{capsu Take 1 Uni vers (RAPAFLO) 8 2-24 le} capsule by it y of mg capsule 00:00: mouth [place] 00 daily. MD Shad truong [facility] silodosin Yes 1{capsu Take 1 Uni vers (RAPAFLO) 8 2-24 le} capsule by it y of mg capsule 00:00: mouth [place] 00 daily. MD Shad truong [facility] silodosin Yes 1{capsu Take 1 Uni vers (RAPAFLO) 8 2-24 le} capsule by it y of mg capsule 00:00: mouth [place] 00 daily. MD Shad truong [facility] amLODIPine Yes 1{tbl} Take 1 Uni vers (NORVASC) 2-11 tablet by ity o f 2.5 mg 00:00: mouth [place] tablet 00 daily. MD Shad truong [facility] dutasteride Yes 1{capsu Take 1 U nivers (AVODART) 2-11 le} capsule by ity of 0.5 mg 00:00: mouth [place] capsule 00 daily. MD Shad truong [facility] amLODIPine Yes 1{tbl} Take 1 Uni vers (NORVASC) 2-11 tablet by ity o f 2.5 mg 00:00: mouth [place] tablet 00 daily. MD Shad truong [facility] dutasteride Yes 1{capsu Take 1 U nivers (AVODART) 2-11 le} capsule by ity of 0.5 mg 00:00: mouth [place] capsule 00 daily. MD Shad truong [facility] amLODIPine Yes 1{tbl} Take 1 Uni vers (NORVASC) 2-11 tablet by ity o f 2.5 mg 00:00: mouth [place] tablet 00 daily. MD Shad truong [facility] dutasteride Yes 1{capsu Take 1 U nivers (AVODART) 2-11 le} capsule by ity of 0.5 mg 00:00: mouth [place] capsule 00 daily. MD Shad truong [facility] amLODIPine Yes 1{tbl} Take 1 Uni vers (NORVASC) 2-11 tablet by ity o f 2.5 mg 00:00: mouth [place] tablet 00 daily. MD Shad truong [facility] dutasteride Yes 1{capsu Take 1 U nivers (AVODART) 2-11 le} capsule by ity of 0.5 mg 00:00: mouth [place] capsule 00 daily. MD Shad truong [facility] amLODIPine Yes 1{tbl} Take 1 Uni vers (NORVASC) 2-11 tablet by ity o f 2.5 mg 00:00: mouth [place] tablet 00 daily. MD Shad truong [facility] dutasteride Yes 1{capsu Take 1 U nivers (AVODART) 2-11 le} capsule by ity of 0.5 mg 00:00: mouth [place] capsule 00 daily. MD Shad truong [facility] diltiazem Yes Univers (CARDIZEM 3-06 ity of [place]) 360 mg 00:00: [place] 24 hr 00 MD rosendo truong [facility] diltiazem Yes Univers (CARDIZEM 3-06 ity of [place]) 360 mg 00:00: [place] 24 hr 00 MD rosendo Kulkarni [facility] diltiazem Yes Univers (CARDIZEM 3-06 ity of [place]) 360 mg 00:00: [place] 24 hr 00 MD tablet [facility] [place] diltiazem 0 Yes Univers (CARDIZEM 3-06 ity of [place]) 360 mg 00:00: [place] 24 hr 00 MD tablet [facility] [place] diltiazem 0 Yes Univers (CARDIZEM 3-06 ity of [place]) 360 mg 00:00: [place] 24 hr 00 MD tablet [facility] [place] finasteride 2015-06 Yes 1{tbl} Take 1 Un phong (PROSCAR) 5 1-09 tablet by ity of mg tablet 00:00: mouth [place] 00 every MD evening. [facility] [place] finasteride 2015-06 Yes 1{tbl} Take 1 Un phong (PROSCAR) 5 1-09 tablet by ity of mg tablet 00:00: mouth [place] 00 every MD evening. [facility] [place] finasteride 2015-06 Yes 1{tbl} Take 1 Un phong (PROSCAR) 5 1-09 tablet by ity of mg tablet 00:00: mouth [place] 00 every MD evening. [facility] [place] finasteride 2015-06 Yes 1{tbl} Take 1 Un phong (PROSCAR) 5 1-09 tablet by ity of mg tablet 00:00: mouth [place] 00 every MD evening. [facility] [place] finasteride 2015-06 Yes 1{tbl} Take 1 Un phong (PROSCAR) 5 1-09 tablet by ity of mg tablet 00:00: mouth [place] 00 every MD evening. [facility] [place] oxybutynin 2015-06 Yes 1{tbl} Take 1 Uni vers (DITROPAN) 1-05 tablet by ity of 5 mg tablet 00:00: mouth [place] 00 every MD evening. [facility] [place] oxybutynin 2015-06 Yes 1{tbl} Take 1 Uni vers (DITROPAN) 1-05 tablet by ity of 5 mg tablet 00:00: mouth [place] 00 every MD evening. [facility] [place] oxybutynin 2015-06 Yes 1{tbl} Take 1 Uni vers (DITROPAN) 1-05 tablet by ity of 5 mg tablet 00:00: mouth [place] 00 every MD evening. [facility] [place] oxybutynin 2015-06 Yes 1{tbl} Take 1 Uni vers (DITROPAN) 1-05 tablet by ity of 5 mg tablet 00:00: mouth [place] 00 every MD evening. [facility] [place] oxybutynin 2015-06 Yes 1{tbl} Take 1 Uni vers (DITROPAN) 1-05 tablet by ity of 5 mg tablet 00:00: mouth [place] 00 every MD evening. [facility] [place] tamsulosin 2015-06 Yes 1{capsu Take 1 Un phong (FLOMAX) 0-30 le} capsule by ity o f 0.4 mg 24 00:00: [place] capsule 00 bedtime. MD Shad truong [facility] tamsulosin 2015-06 Yes 1{capsu Take 1 Un [place]ong (FLOMAX) 0-30 le} capsule by ity o f 0.4 mg 24 00:00: mouth [place] hr capsule 00 bedtime. MD Shad truong [facility] tamsulosin 2015-06 Yes 1{capsu Take 1 Un phong (FLOMAX) 0-30 le} capsule by ity o f 0.4 mg 24 00:00: mouth [place] hr capsule 00 bedtime. MD Shad truong [facility] tamsulosin 2015-06 Yes 1{capsu Take 1 Un phong (FLOMAX) 0-30 le} capsule by ity o f 0.4 mg 24 00:00: mouth [place] capsule 00 bedtime. MD Shad truong [facility] tamsulosin 2015-06 Yes 1{capsu Take 1 Un phong (FLOMAX) 0-30 le} capsule by ity o f 0.4 mg 24 00:00: mouth [place] capsule 00 bedtime. MD Shad truong [facility] simvastatin 2015-06 Yes 1{tbl} Take 1 Un phong (ZOCOR) 20 0-21 tablet by ity of mg tablet 00:00: mouth [place] 00 daily. MD Shad truong [facility] simvastatin 2015-06 Yes 1{tbl} Take 1 Un phong (ZOCOR) 20 0-21 tablet by ity of mg tablet 00:00: mouth [place] 00 daily. MD Shad truong [facility] simvastatin 2015-06 Yes 1{tbl} Take 1 Un phong (ZOCOR) 20 0-21 tablet by ity of mg tablet 00:00: mouth [place] 00 daily. MD Shad truong [facility] simvastatin 2015-06 Yes 1{tbl} Take 1 Un phong (ZOCOR) 20 0-21 tablet by ity of mg tablet 00:00: mouth [place] 00 daily. MD Shad truong [facility] simvastatin 2015-06 Yes 1{tbl} Take 1 Un phong (ZOCOR) 20 0-21 tablet by ity of mg tablet 00:00: mouth [place] 00 daily. MD Shad truong [facility] levothyroxi 2015-06 Yes 1{tbl} Take 1 Un phong ne 0-13 tablet by ity of (SYNTHROID, 00:00: mouth [place] LEVOTHROID) 00 daily. 50 mcg Yonyerso tablet [facility] levothyroxi 2015-06 Yes 1{tbl} Take 1 Un phong ne 0-13 tablet by ity of (SYNTHROID, 00:00: mouth [place] LEVOTHROID) 00 daily. 50 mcg Yonyerso tablet [facility] levothyroxi 2015-06 Yes 1{tbl} Take 1 Un phong ne 0-13 tablet by ity of (SYNTHROID, 00:00: mouth [place] LEVOTHROID) 00 daily. 50 mcg Anderso tablet [facility] levothyroxi 2015-06 Yes 1{tbl} Take 1 Un phong ne 0-13 tablet by ity of (SYNTHROID, 00:00: mouth [place] LEVOTHROID) 00 daily. 50 mcg Anderso tablet [facility] levothyroxi 2015-06 Yes 1{tbl} Take 1 Un phong ne 0-13 tablet by ity of (SYNTHROID, 00:00: mouth [place] LEVOTHROID) 00 daily. 50 mcg Anderso tablet [facility] glimepiride Yes 1{tbl} Take 1 Un phong (AMARYL) 4 9-28 tablet by ity of mg tablet 00:00: mouth [place] 00 twice [facility] 1{tbl} Take 1 Un phong (AMARYL) 4 9-28 tablet by ity of mg tablet 00:00: mouth [place] 00 twice MD daily. [facility] [place] glimepiride Yes 1{tbl} Take 1 Un phong (AMARYL) 4 9-28 tablet by ity of mg tablet 00:00: mouth [place] 00 twice MD daily. [facility] [place] glimepiride Yes 1{tbl} Take 1 Un phong (AMARYL) 4 9-28 tablet by ity of mg tablet 00:00: mouth [place] 00 twice MD daily. [facility] [place] glimepiride Yes 1{tbl} Take 1 Un phong (AMARYL) 4 9-28 tablet by ity of mg tablet 00:00: mouth [place] 00 twice MD daily. [place] [address] Yes 1{tbl} Take 1 Uni vers mg tablet 9-20 tablet by ity o f 00:00: mouth [place] 00 daily. [place] [address] Yes 1{tbl} Take 1 Uni vers mg tablet 9-20 tablet by ity o f 00:00: mouth [place] 00 daily. [place] [address] Yes 1{tbl} Take 1 Uni vers mg tablet 9-20 tablet by ity o f 00:00: mouth [place] 00 daily. [place] [address] Yes 1{tbl} Take 1 Uni vers mg tablet 9-20 tablet by ity o f 00:00: mouth [place] 00 daily. [place] [address] Yes 1{tbl} Take 1 Uni vers mg tablet 9-20 tablet by ity o f 00:00: mouth [place] 00 daily. [facility] [place] metFORMIN Yes 1000mg 1,000 mg 2 Univers (GLUCOPHAGE 5-24 (two) ity of ) 1000 mg 00:00: times a [place] tablet 00 day with MD meals. [facility] [place] metFORMIN Yes 1000mg 1,000 mg 2 Univers (GLUCOPHAGE 5-24 (two) ity of ) 1000 mg 00:00: times a [place] tablet 00 day with MD meals. [facility] [place] metFORMIN Yes 1000mg 1,000 mg 2 Univers (GLUCOPHAGE 5-24 (two) ity of ) 1000 mg 00:00: times a [place] tablet 00 day with MD meals. [facility] [place] metFORMIN 2016-0 Yes 1000mg 1,000 mg 2 Univers (GLUCOPHAGE 5-24 (two) ity of ) 1000 mg 00:00: times a [place] tablet 00 day with MD meals. [facility] [place] metFORMIN 2016-0 Yes 1000mg 1,000 mg 2 Univers (GLUCOPHAGE 5-24 (two) ity of ) 1000 mg 00:00: times a [place] tablet 00 day with MD meals. [facility] [place] Januvia 100 Januvia 100 No QD Januvia [...] 1{table QD Simvastati 20 MG 20 MG t_in_ n 20 MG e_eveni ng} B12 B12 [...] No QD Januvia MG MG 100 MG amLODIPine amLODIPine No 1{table QD amLODIPine Besylate Besylate t} Besylate 2.5 MG 2.5 MG 2.5 MG Amiodarone Amiodarone No 1{table QD Amiodarone HCl 100 MG HCl 100 MG t} HCl 100 MG Losartan Losartan No Losartan Potassium Potassium Potassium 100 MG 100 MG 100 MG Aspirin 81 Aspirin 81 No 1{table QD Aspirin 81 MG MG t} MG Finasteride Finasteride No Finasterid 5 MG 5 MG e 5 MG Warfarin Warfarin No 1{table QD Warfarin Sodium 7.5 Sodium 7.5 t} Sodium 7.5 MG MG MG metFORMIN metFORMIN No metFORMIN HCl ER 500 HCl ER 500 HCl ER 500 MG MG MG Clopidogrel Clopidogrel No 1{table QD Clopidogre Bisulfate Bisulfate t} l 75 MG 75 MG Bisulfate 75 MG Aspirin 81 Aspirin 81 No 1{table QD Aspirin 81 MG MG t} MG Furosemide Furosemide No 1{table QD Furosemide 40 MG 40 MG t} 40 MG Bactrim DS Bactrim DS No 1{table BID Bactrim DS 800-160 MG 800-160 MG t} 800-160 MG Simvastatin Simvastatin No Simvastati 20 MG 20 MG n 20 MG Simvastatin Simvastatin No 1{table QD Simvastati 20 MG 20 MG t_in_ n 20 MG e_eveni ng} Omeprazole Omeprazole No Omeprazole 20 MG 20 MG 20 MG Tamsulosin Tamsulosin No Tamsulosin HCl 0.4 MG HCl 0.4 MG HCl 0.4 MG Levothyroxi Levothyroxi No QD Levothyrox ne Sodium ne Sodium ine Sodium 88 MCG 88 MCG 88 MCG B12 B12 No B12 metFORMIN metFORMIN No [...] 81 MG 81 MG t} 81 MG Accu-Chek Accu-Chek No 2strip( Q1D Accu-Chek [place] Guide test Guide test s) Guide test Family strips Take strips Take strips Practic 2 strips 2 strips Take 2 e every day every day strips by miscell. by miscell. every day route for route for by 90 days. 90 days. miscell. route for 90 days. albuterol albuterol No albuterol [place] sulfate HFA sulfate HFA sulfate HFA 90 Practic mcg/actuati mcg/actuati mcg/actuat e on aerosol on aerosol ion inhaler inhaler aerosol inhaler amiodarone amiodarone No amiodarone [facility] 25 mg once 25 mg once 25 mg once Family a day a day a day Practic e amlodipine amlodipine No amlodipine [facility] 2.5 mg 2.5 mg 2.5 mg Family tablet one tablet one tablet one Practic at night at night at night e amlodipine amlodipine No amlodipine [facility] 5 mg tablet 5 mg tablet 5 mg F amily one in the one in the tablet one Practic morning morning in the e morning aspirin 81 aspirin 81 No aspirin 81 [place] mg once a mg once a mg once a Family day day day Practic e clopidogrel clopidogrel No clopidogre [facility] 75 mg 75 mg l 75 mg Family tablet Take tablet Take tablet Practic 1 tablet 1 tablet Take 1 e every day every day tablet by oral by oral every day route. route. by oral route. famotidine famotidine No 1 BID famotidine [facility] 20 mg 20 mg 20 mg Family tablet Take tablet Take tablet Practic 1 tablet 1 tablet Take 1 e twice a day twice a day tablet by oral by oral twice a route. route. day by oral route. finasteride finasteride No finasterid [facility] 5 mg tablet 5 mg tablet e 5 mg Family one at one at tablet one Pract ic night night at night e furosemide furosemide furosemide [facility] 40 mg 40 mg 40 mg Family tablet Take tablet Take tablet Practic 1 tablet 1 tablet Take 1 e every day every day tablet by oral by oral every day route. route. by oral route. Januvia 100 Januvia 100 No 1 Q1D Januvia [facility] mg tablet mg tablet 100 mg Fam tu Take 1 Take 1 tablet Practic tablet tablet Take 1 e every day every day tablet by oral by oral every day route for route for by oral 90 days. 90 days. route for 90 days. levothyroxi levothyroxi No levothyrox [facility] ne 100 mcg ne 100 mcg [...] route. metformin metformin No 1 BID metformin [facility] ER 1,000 mg ER 1,000 mg ER [...] for 90 days. simvastatin simvastatin No simvastati [facility] 20 mg 20 mg n 20 mg Family tablet one tablet one tablet one Practic at bedtime at bedtime at bedtime e tamsulosin tamsulosin No tamsulosin [facility] 0.4 mg 0.4 mg 0.4 mg [...] tablet mg tablet mg tablet Family tuesday Practic tuesday e and tuesday and tuesday and tuesday one at one at one at bedtime bedtime bedtime Jardiance Jardiance No Jardiance [place] 25 mg 25 mg 25 mg [facility] tablet tablet tablet [facility] levothyroxi levothyroxi No levothyrox [place] ne 88 mcg ne 88 mcg ine 88 mcg [facility] tablet tablet tablet [facility] losartan losartan No losartan Juan J ston 100 mg 100 mg 100 mg [facility] tablet tablet tablet [facility] metformin metformin No metformin [place] 1,000 mg 1,000 mg 1,000 mg Met ro tablet tablet tablet Urology metoprolol metoprolol No 1 BID metoprolol [place] tartrate 50 tartrate 50 tartrate [facility] mg [...] Urol ogy ointment nitroglycer nitroglycer No nitroglyce [place] in 0.4 mg in 0.4 mg rin [...] for 10 days. simvastatin simvastatin No simvastati [place] 20 mg 20 mg n 20 mg [facility] tablet tablet tablet [facility] tamsulosin tamsulosin No tamsulosin [place] 0.4 mg 0.4 mg 0.4 mg [facility] [...] tablet tablet Urology amiodarone amiodarone No amiodarone [place] 200 mg 200 mg 200 mg [facility] tablet tablet tablet [facility] cefdinir cefdinir No cefdinir Juan J ston 300 mg 300 mg 300 mg [facility] capsule capsule capsule Urolog y clopidogrel clopidogrel No clopidogre [place] 75 mg 75 mg l 75 mg [facility] tablet tablet tablet [facility] famotidine famotidine No 1 BID famotidine [place] 20 mg 20 mg 20 mg [facility] tablet Take tablet Take tablet [facility] 1 tablet 1 tablet Take 1 twice a day twice a day tablet by oral by oral twice a route. route. day by oral route. finasteride finasteride No finasterid [place] 5 mg tablet 5 mg tablet e 5 mg [facility] TAKE ONE TAKE ONE tablet Urolo gy TABLET BY TABLET BY TAKE ONE MOUTH DAILY MOUTH DAILY TABLET BY MOUTH DAILY furosemide furosemide No furosemide [place] 40 mg 40 mg 40 mg [facility] tablet tablet tablet Urology imiquimod 5 imiquimod 5 No imiquimod [place] % topical % topical 5 % [facility] cream cream topical [facility] packet packet cream packet isosorbide isosorbide No isosorbide [place] mononitrate mononitrate mononitrat [facility] ER 60 mg ER 60 mg e ER 60 mg U rology tablet,exte tablet,exte tablet,ext nded nded ended release 24 release 24 release 24 hr hr hr Januvia 100 Januvia 100 No Januvia [place] mg tablet mg tablet 100 mg Met ro tablet Urology Jardiance Jardiance No Jardiance [place] 25 mg 25 mg 25 mg [facility] tablet tablet tablet [facility] levothyroxi levothyroxi No levothyrox [place] ne 88 mcg ne 88 mcg ine 88 mcg [facility] tablet tablet tablet [facility] losartan losartan No losartan Juan J ston 100 mg 100 mg 100 mg [facility] tablet tablet tablet [facility] metformin metformin No metformin [place] 1,000 mg 1,000 mg 1,000 mg Met ro tablet tablet tablet Urology metoprolol metoprolol No 1 BID metoprolol [place] tartrate 50 tartrate 50 tartrate [facility] mg [...] Urol ogy ointment nitroglycer nitroglycer No nitroglyce [place] in 0.4 mg in 0.4 mg rin [...] for 10 days. simvastatin simvastatin No simvastati [place] 20 mg 20 mg n 20 mg [facility] tablet tablet tablet [facility] tamsulosin tamsulosin No tamsulosin [place] 0.4 mg 0.4 mg 0.4 mg [facility] [...] tablet tablet Urology amiodarone amiodarone No amiodarone [place] 200 mg 200 mg 200 mg [facility] tablet tablet tablet [facility] amlodipine amlodipine No amlodipine [place] 2.5 mg 2.5 mg 2.5 mg [facility] tablet tablet tablet [facility] clopidogrel clopidogrel No clopidogre [place] 75 mg 75 mg l 75 mg [facility] tablet tablet tablet [facility] famotidine famotidine No 1 BID famotidine [place] 20 mg 20 mg 20 mg [facility] tablet Take tablet Take tablet U[facility] 1 tablet 1 tablet Take 1 twice a day twice a day tablet by oral by oral twice a route. route. day by oral route. finasteride finasteride No finasterid [place] 5 mg tablet 5 mg tablet e 5 mg [facility] TAKE ONE TAKE ONE tablet Urolo gy TABLET BY TABLET BY TAKE ONE MOUTH DAILY MOUTH DAILY TABLET BY MOUTH DAILY furosemide furosemide No furosemide [place] 40 mg 40 mg 40 mg [facility] tablet tablet tablet Urology imiquimod 5 imiquimod 5 No imiquimod [place] % topical % topical 5 % [facility] cream cream topical [facility] packet packet cream packet isosorbide isosorbide No isosorbide [place] mononitrate mononitrate mononitrat [facility] ER 60 mg ER 60 mg e ER 60 mg U rology tablet,exte tablet,exte tablet,ext nded nded ended release 24 release 24 release 24 hr hr hr Jardiance Jardiance No Jardiance [place] 25 mg 25 mg 25 mg [facility] tablet tablet tablet [facility] levothyroxi levothyroxi No levothyrox [place] ne 88 mcg ne 88 mcg ine 88 mcg [facility] tablet tablet tablet [facility] losartan losartan No losartan Juan J ston 100 mg 100 mg 100 mg [facility] tablet tablet tablet [facility] metformin metformin No metformin [place] 1,000 mg 1,000 mg 1,000 mg Met ro tablet tablet tablet Urology metoprolol metoprolol No metoprolol [place] tartrate 25 tartrate 25 tartrate [facility] mg tablet mg tablet 25 mg Urol ogy tablet mupirocin 2 mupirocin 2 No mupirocin [place] % topical % topical 2 % [facility] ointment ointment topical Urol ogy ointment simvastatin simvastatin No simvastati [place] 20 mg 20 mg n 20 mg [facility] tablet tablet tablet Urology SSD 1 % SSD 1 % No SSD 1 % [facility] cream cream cream [facility] tamsulosin tamsulosin No tamsulosin [place] 0.4 mg 0.4 mg 0.4 mg [facility] capsule capsule capsule Urolog y TAKE 2 TAKE 2 TAKE 2 CAPSULES BY CAPSULES BY CAPSULES MOUTH EVERY MOUTH EVERY BY MOUTH NIGHT AT NIGHT AT EVERY BEDTIME BEDTIME NIGHT AT BEDTIME triamcinolo triamcinolo No triamcinol [place] ne ne one [facility] acetonide acetonide acetonide Urology 0.025 % 0.025 % 0.025 % topical topical topical cream cream cream warfarin 6 warfarin 6 No warfarin 6 [place] mg tablet mg tablet mg tablet [facility] amlodipine amlodipine No amlodipine [place] 2.5 mg 2.5 mg 2.5 mg [facility] tablet tablet tablet [facility] cefdinir cefdinir No cefdinir [place] J st[place] 300 mg 300 mg 300 mg [facility] capsule capsule capsule Urolog y cephalexin cephalexin No cephalexin [place] 500 mg 500 mg 500 mg [facility] capsule capsule capsule Urolog y clopidogrel clopidogrel No clopidogre B[place] 75 mg 75 mg l 75 mg [facility] tablet tablet tablet [facility] famotidine famotidine No famotidine [place] 20 mg 20 mg 20 mg [facility] tablet Take tablet Take tablet U[facility] 1 tablet 1 tablet Take 1 twice a day twice a day tablet by oral by oral twice a route. route. day by oral route. finasteride finasteride No finasterid [place] 5 mg tablet 5 mg tablet e 5 mg [facility] TAKE ONE TAKE ONE tablet Urolo gy TABLET BY TABLET BY TAKE ONE MOUTH DAILY MOUTH DAILY TABLET BY MOUTH DAILY levothyroxi levothyroxi No levothyrox [place] ne 88 mcg ne 88 mcg ine 88 mcg [facility] tablet tablet tablet Urology losartan losartan No losartan Juan J ston 100 mg 100 mg 100 mg [facility] tablet tablet tablet [facility] metformin metformin No metformin [place] 1,000 mg 1,000 mg 1,000 mg Met ro tablet tablet tablet Urology metformin metformin No metformin [place] ER 500 mg ER 500 mg ER 500 mg [facility] tablet,exte tablet,exte tablet,ext Urology nded nded ended release 24 release 24 release 24 hr hr hr metoclopram metoclopram No metoclopra [place] ronnell 10 mg ronnell 10 mg mide 10 mg [facility] tablet tablet tablet [facility] nitroglycer nitroglycer No nitroglyce [place] in 0.4 mg in 0.4 mg rin 0.4 mg [facility] sublingual sublingual sublingual [facility] tablet tablet tablet omeprazole omeprazole No omeprazole [place] 20 mg 20 mg 20 mg [facility] capsule,del capsule,del capsule,de Urology ayed ayed layed release release release simvastatin simvastatin No simvastati [place] 20 mg 20 mg n 20 mg [...] cream cream Urology tamsulosin tamsulosin No tamsulosin [place] 0.4 mg 0.4 mg 0.4 mg [facility] capsule capsule capsule Urolog y TAKE 2 TAKE 2 TAKE 2 CAPSULES BY CAPSULES BY CAPSULES MOUTH EVERY MOUTH EVERY BY MOUTH NIGHT AT NIGHT AT EVERY BEDTIME BEDTIME NIGHT AT BEDTIME triamcinolo triamcinolo No triamcinol [place] ne ne one [facility] acetonide acetonide acetonide U[facility] 0.1 % 0.1 % 0.1 % topical topical topical cream cream cream warfarin 2 warfarin 2 No warfarin 2 [place] mg tablet mg tablet mg tablet [facility] warfarin 5 warfarin 5 No warfarin 5 [place] mg tablet mg tablet mg tablet [facility] warfarin 6 warfarin 6 No warfarin 6 [place] mg tablet mg tablet mg tablet [facility] acetaminoph acetaminoph No acetaminop [place] en 300 en 300 hen 300 [facility] mg-codeine mg-codeine mg-codeine U[facility] 30 mg 30 mg 30 mg tablet tablet tablet albuterol albuterol No albuterol [place] sulfate HFA sulfate HFA sulfate [facility] 90 90 HFA 90 Urology mcg/actuati mcg/actuati mcg/actuat on aerosol on aerosol ion inhaler inhaler aerosol inhaler amiodarone amiodarone No amiodarone [place] 200 mg 200 mg 200 mg [facility] tablet tablet tablet [facility] amlodipine amlodipine No amlodipine [place] 2.5 mg 2.5 mg 2.5 mg [facility] tablet tablet tablet [facility] amlodipine amlodipine No amlodipine [place] 5 mg tablet 5 mg tablet 5 mg M etro tablet Urology cefadroxil cefadroxil No cefadroxil [place] 500 mg 500 mg 500 mg [facility] capsule capsule capsule Urolog y clopidogrel clopidogrel No clopidogre [place] 75 mg 75 mg l 75 mg [facility] tablet tablet tablet [facility] digoxin 250 digoxin 250 No digoxin [place] mcg (0.25 mcg (0.25 250 mcg Me tro mg) tablet mg) tablet (0.25 mg) Urology tablet famotidine famotidine No famotidine [place] 20 mg 20 mg 20 mg [facility] tablet tablet tablet [facility]rology finasteride finasteride No finasterid [place] 5 mg tablet 5 mg tablet e [...] days. 90 days. fluticasone fluticasone No fluticason [place] propionate propionate e [facility] ro 50 50 propionate Urology mcg/actuati mcg/actuati 50 on nasal on nasal mcg/actuat spray,suspe spray,suspe ion nasal nsion nsion spray,susp ension furosemide furosemide No furosemide [place] 40 mg 40 mg 40 mg [facility] tablet tablet tablet Urology glimepiride glimepiride No glimepirid [place] 4 mg tablet 4 mg tablet e 4 mg [facility] tablet [facility] hydroxychlo hydroxychlo No hydroxychl [place] roquine 200 roquine 200 oroquine [facility] mg tablet mg tablet 200 mg Uro logy tablet imiquimod 5 imiquimod 5 No imiquimod Nor[place] % topical % topical 5 % [facility] cream cream topical [facility] packet packet cream packet isosorbide isosorbide No isosorbide [place] mononitrate mononitrate mononitrat [facility] ER 60 mg ER 60 mg e ER 60 mg U rology tablet,exte tablet,exte tablet,ext nded nded ended release 24 release 24 release 24 hr hr hr Januvia 100 Januvia 100 No Januvia [place] mg tablet mg tablet 100 mg Met ro tablet Urology levothyroxi levothyroxi No levothyrox [place] ne 100 mcg ne 100 mcg ine 100 [facility] tablet tablet mcg tablet Urolo gy losartan losartan No losartan Juan J ston 100 mg 100 mg 100 mg [facility] tablet tablet tablet Urology metformin metformin No metformin [place] 1,000 mg 1,000 mg 1,000 mg Met ro tablet tablet tablet Urology metoprolol metoprolol No metoprolol [place] tartrate 50 tartrate 50 tartrate [facility] mg tablet mg tablet 50 mg Urol ogy tablet nitroglycer nitroglycer No nitroglyce [place] in 0.4 mg in 0.4 mg rin 0.4 mg [facility] sublingual sublingual sublingual U[facility] tablet tablet tablet oxybutynin oxybutynin No oxybutynin [place] chloride 5 chloride 5 chloride 5 [facility] mg tablet mg tablet mg tablet Urology TAKE ONE TAKE ONE TAKE ONE TABLET BY TABLET BY TABLET BY MOUTH AT MOUTH AT MOUTH AT BEDTIME BEDTIME BEDTIME prednisone prednisone No prednisone [place] 10 mg 10 mg 10 mg [facility] tablet tablet tablet Urology simvastatin simvastatin No simvastati [place] 20 mg 20 mg n 20 mg [facility] tablet tablet tablet Urology tramadol 50 tramadol 50 No tramadol [place] mg tablet mg tablet 50 mg Metr o tablet Urology warfarin 5 warfarin 5 No warfarin 5 [place] mg tablet mg tablet mg tablet [facility] warfarin 6 warfarin 6 No warfarin 6 [place] mg tablet mg tablet mg tablet [facility] amiodarone amiodarone No amiodarone [place] 200 mg 200 mg 200 mg [facility] tablet tablet tablet Urology clopidogrel clopidogrel No clopidogre [place] 75 mg 75 mg l 75 mg [facility] tablet tablet tablet Urology famotidine famotidine No 1 BID famotidine [place] 20 mg 20 mg 20 mg [facility] tablet Take tablet Take tablet Urology 1 tablet 1 tablet Take 1 twice a day twice a day tablet by oral by oral twice a route. route. day by oral route. finasteride finasteride No finasterid [place] 5 mg tablet 5 mg tablet e 5 mg [facility] TAKE ONE TAKE ONE tablet Urolo gy TABLET BY TABLET BY TAKE ONE MOUTH DAILY MOUTH DAILY TABLET BY MOUTH DAILY furosemide furosemide No furosemide [place] 40 mg 40 mg 40 mg [facility] tablet tablet tablet Urology imiquimod 5 imiquimod 5 No imiquimod [place] % topical % topical 5 % [facility] cream cream topical Urology packet packet cream packet isosorbide isosorbide No isosorbide [place] mononitrate mononitrate mononitrat [facility] ER 60 mg ER 60 mg e ER 60 mg U rology tablet,exte tablet,exte tablet,ext nded nded ended release 24 release 24 release 24 hr hr hr Januvia 100 Januvia 100 No Januvia [place] mg tablet mg tablet 100 mg Met ro tablet Urology Immunizations Ordered Immunization Filled Immunization Date Status Commen ts Source Name Name FLUZONE HIGH DOSE FLUZONE HIGH DOSE 2022-04-12 Completed [facility] OVER 65 OVER 65 11:16:00 [facility] FLUZONE HIGH DOSE FLUZONE HIGH DOSE 2022-04-12 Completed [facility] OVER 65 OVER 65 11:16:00 - [facility] FLUZONE HIGH DOSE FLUZONE HIGH DOSE 2022-04-12 Completed [facility] OVER 65 OVER 65 11:16:00 - [facility] FLUZONE HIGH DOSE FLUZONE HIGH DOSE 2022-04-12 Completed [facility] OVER 65 OVER 65 11:16:00 - [facility] FLUZONE HIGH DOSE FLUZONE HIGH DOSE 2022-04-12 Completed [facility] OVER 65 OVER 65 11:16:00 - [facility] FLUZONE HIGH DOSE FLUZONE HIGH DOSE 2021-06-12 Completed [facility] OVER 65 OVER 65 10:56:00 - [facility] Prevnar 13 (PCV13) Prevnar 13 (PCV13) 2021-06-12 Completed [facility] 10:56:00 - [facility] FLUZONE HIGH DOSE FLUZONE HIGH DOSE 2021-06-12 Completed [facility] OVER 65 OVER 65 10:56:00 - [facility] Prevnar 13 (PCV13) Prevnar 13 (PCV13) 2021-06-12 Completed [facility] 10:56:00 - [facility] FLUZONE HIGH DOSE FLUZONE HIGH DOSE 2021-06-12 Completed [facility] OVER 65 OVER 65 10:56:00 - [facility] Prevnar 13 (PCV13) Prevnar 13 (PCV13) 2021-06-12 Completed [facility] 10:56:00 - [facility] FLUZONE HIGH DOSE FLUZONE HIGH DOSE 2021-06-12 Completed [facility] OVER 65 OVER 65 10:56:00 - [facility] Prevnar 13 (PCV13) Prevnar 13 (PCV13) 2021-06-12 Completed [facility] 10:56:00 - [facility] FLUZONE HIGH DOSE FLUZONE HIGH DOSE 2021-06-12 Completed [facility] OVER 65 OVER 65 10:56:00 - [facility] Prevnar 13 (PCV13) Prevnar 13 (PCV13) 2021-06-12 Completed [facility] 10:56:00 [facility] FLUZONE HIGH DOSE FLUZONE HIGH DOSE 2021-06-12 Completed [facility] OVER 65 OVER 65 10:56:00 - [facility] Prevnar 13 (PCV13) Prevnar 13 (PCV13) 2021-06-12 Completed [facility] 10:56:00 - [facility] FLUZONE HIGH DOSE FLUZONE HIGH DOSE 2021-06-12 Completed [facility] OVER 65 OVER 65 10:56:00 - [facility] Prevnar 13 (PCV13) Prevnar 13 (PCV13) 2021-06-12 Completed [facility] 10:56:00 - [facility] FLUZONE HIGH DOSE FLUZONE HIGH DOSE 2021-06-12 Completed [facility] OVER 65 OVER 65 10:56:00 - [facility] Prevnar 13 (PCV13) Prevnar 13 (PCV13) 2021-06-12 Completed [facility] 10:56:00 - [facility] FLUZONE HIGH DOSE FLUZONE HIGH DOSE 2021-06-12 Completed [facility] OVER 65 OVER 65 10:56:00 - [facility] Prevnar 13 (PCV13) Prevnar 13 (PCV13) 2021-06-12 Completed [facility] 10:56:00 - [facility] FLUZONE HIGH DOSE FLUZONE HIGH DOSE 2021-06-12 Completed [facility] OVER 65 OVER 65 10:56:00 - [facility] Prevnar 13 (PCV13) Prevnar 13 (PCV13) 2021-06-12 Completed [facility] 10:56:00 - [facility] FLUZONE HIGH DOSE FLUZONE HIGH DOSE 2021-06-12 Completed [facility] OVER 65 OVER 65 10:56:00 - [facility] Prevnar 13 (PCV13) Prevnar 13 (PCV13) 2021-06-12 Completed [facility] 10:56:00 - [facility] FLUZONE HIGH DOSE FLUZONE HIGH DOSE 2021-06-12 Completed [facility] OVER 65 OVER 65 10:56:00 - [facility] Prevnar 13 (PCV13) Prevnar 13 (PCV13) 2021-06-12 Completed [facility] 10:56:00 [facility] FLUZONE HIGH DOSE FLUZONE HIGH DOSE 2021-06-12 Completed [facility] OVER 65 OVER 65 10:56:00 - [facility] Prevnar 13 (PCV13) Prevnar 13 (PCV13) 2021-06-12 Completed [facility] 10:56:00 - [facility] FLUZONE HIGH DOSE FLUZONE HIGH DOSE 2021-06-12 Completed [facility] OVER 65 OVER 65 10:56:00 - [facility] Prevnar 13 (PCV13) Prevnar 13 (PCV13) 2021-06-12 Completed [facility] 10:56:00 - [facility] FLUZONE HIGH DOSE FLUZONE HIGH DOSE 2021-06-12 Completed [facility] OVER 65 OVER 65 10:56:00 - [facility] Prevnar 13 (PCV13) Prevnar 13 (PCV13) 2021-06-12 Completed [facility] 10:56:00 - [facility] Non-US Vaccine Non-US Vaccine 2020-11-11 Completed [facility] COVID-19 IV COVID-19 IV 00:00:00 Family (QAZCOVID-IN) (QAZCOVID-IN) Practice Non-US Vaccine Non-US Vaccine 2020-10-14 Completed [facility] COVID-19 IV COVID-19 IV 00:00:00 Family (QAZCOVID-IN) (QAZCOVID-IN) Practice influenza, influenza, 2019-03-13 Completed [facility] injectable, injectable, 00:00:00 Urology quadrivalent quadrivalent influenza, influenza, 2019-03-[facility] Urology quadrivalent quadrivalent influenza, influenza, 2019-03-13 [facility], 00:00:00 Urology quadrivalent quadrivalent influenza, influenza, 2019-03-13 Completed [place] [facility] injectable, injectable, 00:00:00 Urology quadrivalent quadrivalent influenza, influenza, 2019-03-13 [facility], 00:00:00 Urology quadrivalent quadrivalent influenza, influenza, 2018-02-11 Completed [place] [facility] injectable, injectable, 00:00:00 Urology quadrivalent quadrivalent influenza, influenza, 2018-02-11 [facility], 00:00:00 Urology quadrivalent quadrivalent influenza, influenza, 2018-02-11 [facility] injectable, 00:00:00 Urology quadrivalent quadrivalent influenza, influenza, 2018-02-11 Completed [place] [facility] injectable, injectable, 00:00:00 Urology quadrivalent quadrivalent influenza, influenza, 2018-02-11 Completed [place] [facility] injectable, injectable, 00:00:00 Urology quadrivalent quadrivalent influenza, influenza, 2017-04-13 [facility], 00:00:00 Urology quadrivalent quadrivalent influenza, influenza, 2017-04-13 [facility] injectable, 00:00:00 Urology quadrivalent quadrivalent influenza, influenza, 2017-04-13 [facility] injectable, 00:00:00 Urology quadrivalent quadrivalent influenza, influenza, 2017-04-13 [facility] injectable, 00:00:00 Urology quadrivalent quadrivalent influenza, influenza, 2017-04-13 [facility] injectable, 00:00:00 Urology quadrivalent quadrivalent pneumococcal pneumococcal 2015-06-13 Completed [facility] polysaccharide PPV23 polysaccharide PPV23 00:00:00 Urology pneumococcal pneumococcal 2015-06-13 Completed [facility] tro polysaccharide PPV23 polysaccharide PPV23 00:00:00 Urology pneumococcal pneumococcal 2015-06-13 Completed [facility] tro polysaccharide PPV23 polysaccharide PPV23 00:00:00 Urology pneumococcal pneumococcal 2015-06-13 Completed [facility] tro polysaccharide PPV23 polysaccharide PPV23 00:00:00 Urology pneumococcal pneumococcal 2015-06-13 Completed [facility] tro polysaccharide PPV23 polysaccharide PPV23 00:00:00 Urology FLUZONE HIGH DOSE FLUZONE HIGH DOSE Unknown Completed [facility] OVER 65 OVER 65 [facility] FLUZONE HIGH DOSE FLUZONE HIGH DOSE Unknown Completed [facility] OVER 65 OVER 65 - [facility] Prevnar 13 (PCV13) Prevnar 13 (PCV13) Unknown Completed [facility] Td Td Unknown Completed [facility] FLUZONE HIGH DOSE FLUZONE HIGH DOSE Unknown Completed [facility] OVER 65 OVER 65 - [facility] FLUZONE HIGH DOSE FLUZONE HIGH DOSE Unknown Completed [facility] OVER 65 OVER 65 - [facility] Prevnar 13 (PCV13) Prevnar 13 (PCV13) Unknown Completed [facility] Td Td Unknown Completed [facility] FLUZONE HIGH DOSE FLUZONE HIGH DOSE Unknown Completed [facility] OVER 65 OVER 65 - [facility] FLUZONE HIGH DOSE FLUZONE HIGH DOSE Unknown Completed [facility] OVER 65 OVER 65 - [facility] Prevnar 13 (PCV13) Prevnar 13 (PCV13) Unknown Completed [facility] Vital Signs Vital Name Observation Time Observation Value Comments Source HEIGHT 2021-01-20 08:47:00 182.9 cm WEIGHT 2021-01-20 08:47:00 118.026 kg HEIGHT 2021-01-19 09:03:00 182.9 cm WEIGHT 2021-01-19 09:03:00 119.296 kg BMI (Body Mass 2023-02-17 00:00:00 30.7 kg/m2 [facility] Index) Urology BP Diastolic 2023-02-17 00:00:00 68 mm[Hg] [facility] Urolog Body Weight 2023-02-17 00:00:00 226 [lb_av] [facility] Urology BP Systolic 2023-02-17 00:00:00 142 mm[Hg] [facility] Urology Height 2023-02-17 00:00:00 72 [in_i] [facility] Urolog Heart rate 2023-02-13 16:45:00 60 /min [facility] Respiratory rate 2023-02-13 16:45:00 20 /min [facility] Oxygen saturation in 2023-02-13 16:45:00 100 /min [facility] Arterial blood by [facility] Pulse oximetry Branch Systolic blood 2023-02-13 16:30:00 143 mm[Hg] [facility] Diastolic blood 2023-02-13 16:30:00 67 mm[Hg] [facility] Body temperature 2023-02-13 13:14:00 36.5 [facility] height 2023-02-13 13:14:00 182.9 cm [facility] Body weight 2023-02-13 13:14:00 92.08 kg [facility] BMI 2023-02-13 13:14:00 27.53 kg/m2 [facility] height 2022-10-21 14:00:00 70 [in_i] [facility] weight 2022-10-21 14:00:00 225 [lb_av] [facility] temperature 2022-10-21 14:00:00 96.0 [degF] [facility] bmi 2022-10-21 14:00:00 32.28 kg/m2 [facility] oximetry 2022-10-21 14:00:00 98 % [facility] respiratory rate 2022-10-21 14:00:00 16 /min [facility] blood pressure 2022-10-21 14:00:00 136 mm[Hg] [facility] systolic [facility] blood pressure 2022-10-21 14:00:00 60 mm[Hg] [facility] diastolic [facility] Systolic blood 2022-08-26 15:22:00 146 mm[Hg] [facility] Diastolic blood 2022-08-26 15:22:00 70 mm[Hg] [facility] Heart rate 2022-08-26 15:21:00 74 /min [facility] Body temperature 2022-08-26 15:21:00 37.06 [facility] Res[facility] rate 2022-08-26 15:21:00 17 /min [facility] Body height 2022-08-26 15:21:00 182.9 cm [facility] Body weight 2022-08-26 15:21:00 100.154 kg [facility] BMI 2022-08-26 15:21:00 29.95 kg/m2 [facility] Oxygen saturation in 2022-08-26 15:21:00 99 /min [facility] Arterial blood by [facility] Pulse oximetry Branch height 2022-07-20 08:40:00 70 [in_i] [facility] weight 2022-07-20 08:40:00 227.5 [lb_av] [facility] temperature 2022-07-20 08:40:00 97.1 [degF] Common [facility] bmi 2022-07-20 08:40:00 32.64 kg/m2 [facility] oximetry 2022-07-20 08:40:00 98 % [facility] respiratory rate 2022-07-20 08:40:00 18 /min [facility] blood pressure 2022-07-20 08:40:00 134 mm[Hg] Common [facility] - systolic [facility] blood pressure 2022-07-20 08:40:00 67 mm[Hg] Common [facility] - diastolic [facility] height 2022-07-20 09:00:00 70 [in_i] [facility] weight 2022-07-20 09:00:00 227.5 [lb_av] [facility] temperature 2022-07-20 09:00:00 97.1 [degF] Common [facility] bmi 2022-07-20 09:00:00 32.64 kg/m2 [facility] oximetry 2022-07-20 09:00:00 98 % [facility] respiratory rate 2022-07-20 09:00:00 18 /min [facility] blood pressure 2022-07-20 09:00:00 134 mm[Hg] Common [facility] - systolic [facility] blood pressure 2022-07-20 09:00:00 67 mm[Hg] Common [facility] - diastolic [facility] BP Diastolic 2022-07-15 00:00:00 66 mm[Hg] [facility] Urology Height 2022-07-15 00:00:00 72 [in_i] [facility] Urolog BMI (Body Mass 2022-07-15 00:00:00 30.7 kg/m2 [facility] BP Systolic 2022-07-15 00:00:00 124 mm[Hg] [facility]rolog Body Weight 2022-07-15 00:00:00 226 [lb_av] [facility] Urology height 2022-04-12 10:40:00 70 [in_i] [facility] weight 2022-04-12 10:40:00 226.0 [lb_av] [facility] temperature 2022-04-12 10:40:00 97.4 [degF] [facility] bmi 2022-04-12 10:40:00 32.42 kg/m2 [facility] oximetry 2022-04-12 10:40:00 98 % [facility] respiratory rate 2022-04-12 10:40:00 17 /min [facility] blood pressure 2022-04-12 10:40:00 118 mm[Hg] [facility] - systolic [facility] blood pressure 2022-04-12 10:40:00 54 mm[Hg] [facility] - diastolic [facility] height 2022-03-31 11:30:00 70 [in_i] [facility] weight 2022-03-31 11:30:00 223 [lb_av] [facility] temperature 2022-03-31 11:30:00 98 [degF] [facility] bmi 2022-03-31 11:30:00 31.99 kg/m2 [facility] blood pressure 2022-03-31 11:30:00 138 mm[Hg] Common [facility] - systolic [facility] blood pressure 2022-03-31 11:30:00 74 mm[Hg] Common [facility] - diastolic [facility] Systolic blood 2022-03-26 05:01:23 166 mm[Hg] [facility] Diastolic blood 2022-03-26 05:01:23 92 mm[Hg] [facility]ive [facility] Heart rate 2022-03-26 05:01:23 54 /min [facility] Respiratory rate 2022-03-26 05:01:23 16 /min [facility] Oxygen saturation in 2022-03-26 05:01:23 97 /min [facility] Arterial blood by [place] [employer] leta Pulse oximetry Branch Body temperature 2022-03-26 03:33:00 36.83 Ronda [facility] Body height 2022-03-26 03:33:00 188 cm [facility] Body weight 2022-03-26 03:33:00 102.967 kg [facility] BMI 2022-03-26 03:33:00 29.15 kg/m2 [facility] Systolic blood 2022-02-27 18:52:00 122 mm[Hg] [facility] Diastolic blood 2022-02-27 18:52:00 79 mm[Hg] [facility] Heart rate 2022-02-27 18:52:00 74 /min [facility] Body temperature 2022-02-27 18:52:00 36.44 Ronda [facility] Respiratory rate 2022-02-27 18:52:00 18 /min [facility] Body height 2022-02-27 18:52:00 182.9 cm [facility] Body weight 2022-02-27 18:52:00 107.049 kg [facility] BMI 2022-02-27 18:52:00 32.01 kg/m2 [facility] Oxygen saturation in 2022-02-27 18:52:00 96 /min [facility] Arterial blood by [place] [employer] leta Pulse oximetry Branch Systolic blood 2022-02-24 03:00:00 150 mm[Hg] [facility] Diastolic blood 2022-02-24 03:00:00 66 mm[Hg] [facility] Heart rate 2022-02-24 03:00:00 56 /min [facility] Respiratory rate 2022-02-24 03:00:00 16 /min [facility] Oxygen saturation in 2022-02-24 03:00:00 95 /min [facility] Arterial blood by [place] [employer] leta Pulse oximetry Branch Body temperature 2022-02-24 01:20:00 36.61 [facility] height 2022-02-24 01:20:00 182.9 cm [facility] Body weight 2022-02-24 01:20:00 107.276 kg [facility] BMI 2022-02-24 01:20:00 32.08 kg/m2 [facility] ty [facility] Systolic blood 2022-02-24 00:48:00 173 mm[Hg] [facility] Diastolic blood 2022-02-24 00:48:00 64 mm[Hg] [facility] Heart rate 2022-02-24 00:48:00 64 /min [facility] Respiratory rate 2022-02-24 00:48:00 18 /min [facility] Body height 2022-02-24 00:48:00 182.9 cm Univers[facility] ty [facility] Body weight 2022-02-24 00:48:00 107.366 kg Universi ty [facility] BMI 2022-02-24 00:48:00 32.10 kg/m2 [facility] Oxygen saturation in 2022-02-24 00:48:00 96 /min [facility] Arterial blood by [facility] Pulse oximetry Branch Height 2022-02-18 00:00:00 72 [in_i] [facility] Urology BMI (Body Mass 2022-02-18 00:00:00 33.9 kg/m2 [place] [facility] Index) [facility] Body Weight 2022-02-18 00:00:00 250 [lb_av] [facility] Urology Systolic blood 2022-02-08 22:28:00 166 mm[Hg] [facility] Diastolic blood 2022-02-08 22:28:00 65 mm[Hg] [facility] Heart rate 2022-02-08 22:27:00 67 /min [facility] Body temperature 2022-02-08 22:27:00 36.72 [facility] Respiratory rate 2022-02-08 22:27:00 19 /min [facility] Body height 2022-02-08 22:27:00 182.9 cm [facility] Body weight 2022-02-08 22:27:00 107.049 kg [facility] BMI 2022-02-08 22:27:00 32.01 kg/m2 [facility] Height 2022-02-04 00:00:00 72 [in_i] [facility] Urology BMI (Body Mass 2022-02-04 00:00:00 33.9 kg/m2 [facility] Body Weight 2022-02-04 00:00:00 250 [lb_av] [facility] height 2021-12-23 10:10:00 70 [in_i] [facility] weight 2021-12-23 10:10:00 225.4 [lb_av] [facility] temperature 2021-12-23 10:10:00 97.3 [degF] [facility] bmi 2021-12-23 10:10:00 32.34 kg/m2 [facility] oximetry 2021-12-23 10:10:00 96 % [facility] respiratory rate 2021-12-23 10:10:00 17 /min Comm on [facility] blood pressure 2021-12-23 10:10:00 137 mm[Hg] Common [facility] - systolic [facility] blood pressure 2021-12-23 10:10:00 70 mm[Hg] Common [facility] - diastolic [facility] BP Diastolic 2021-10-30 00:00:00 72 mm[Hg] [facility] Height 2021-10-30 00:00:00 73 [in_i] [facility] BMI (Body Mass 2021-10-30 00:00:00 31.8 kg/m2 [facility] BP Systolic 2021-10-30 00:00:00 147 mm[Hg] [facility] Body Weight 2021-10-30 00:00:00 241 [lb_av] [facility] height 2021-10-29 11:00:00 72 [in_i] [facility] weight 2021-10-29 11:00:00 240.3 [lb_av] [facility] temperature 2021-10-29 11:00:00 97.6 [degF] [facility] bmi 2021-10-29 11:00:00 32.59 kg/m2 [facility] oximetry 2021-10-29 11:00:00 95 % [facility] respiratory rate 2021-10-29 11:00:00 16 /min Comm on [facility] blood pressure 2021-10-29 11:00:00 138 mm[Hg] Common [facility] systolic [facility] blood pressure 2021-10-29 11:00:00 75 mm[Hg] [facility] diastolic [facility] Systolic blood 2021-09-20 21:38:00 130 mm[Hg] [facility] Diastolic blood 2021-09-20 21:38:00 73 mm[Hg] Unive rsity of pressure [facility] Heart rate 2021-09-20 21:38:00 88 /min [facility] Body temperature 2021-09-20 21:38:00 36.28 Ronda [facility] 2021-09-20 21:38:00 18 /min [facility] Body height 2021-09-20 21:38:00 182.9 cm [facility] Body weight 2021-09-20 21:38:00 117.482 kg [facility] BMI 2021-09-20 21:38:00 35.13 kg/m2 [facility] Oxygen saturation in 2021-09-20 21:38:00 97 /min [facility] Arterial blood by [facility] Pulse oximetry Branch BP Diastolic 2021-08-05 00:00:00 72 mm[Hg] [facility] Height 2021-08-05 00:00:00 73 [in_i] [facility] BMI (Body Mass 2021-08-05 00:00:00 35 kg/m2 [facility] Index) Practice BP Systolic 2021-08-05 00:00:00 125 mm[Hg] [facility] Body Weight 2021-08-05 00:00:00 265 [lb_av] [facility] Practice BP Diastolic 2021-07-16 00:00:00 68 mm[Hg] [facility] Height 2021-07-16 00:00:00 72 [in_i] [facility] BMI (Body Mass 2021-07-16 00:00:00 33.9 kg/m2 [place] [facility] BP Systolic 2021-07-16 00:00:00 132 mm[Hg] [facility] Body Weight 2021-07-16 00:00:00 250 [lb_av] [facility] HEIGHT 2021-01-20 08:47:00 182.9 cm WEIGHT [...] kg Systolic blood 2021-01-20 13:10:00 139 mm[Hg] [facility] Diastolic blood 2021-01-20 13:10:00 66 mm[Hg] [facility] Heart rate 2021-01-20 13:10:00 55 /min [place] [facility] Body temperature 2021-01-20 13:10:00 36.39 Ronda [facility] Respiratory rate 2021-01-20 13:10:00 18 /min [facility] Oxygen saturation in 2021-01-20 13:10:00 94 /min [facility] Arterial blood by Medical Ce nter Pulse oximetry Body height 2021-01-20 08:47:00 182.9 cm [facility] Body weight 2021-01-20 08:47:00 118.026 kg [facility] BMI 2021-01-20 08:47:00 35.29 kg/m2 [facility] Procedures Procedure Date / Time Performing Clinician Source Performed MAGNESIUM 2023-02-13 13:28:00 Sierra Copeland [facility] TROPONIN I 2023-02-13 13:28:00 Sierra Copeland [facility] COMP. METABOLIC PANEL 2023-02-13 13:28:00 Sierra Copeland [facility] ([id number]) [facility] CBC WITH DIFF 2023-02-13 13:28:00 Sierra Copeland [facility] CONSENT/REFUSAL FOR 2023-02-13 13:05:22 Doctor Unassigned, No [facility] [place] [facility] POCT URINALYSIS 2022-08-26 00:00:00 Michael Barbour [facility] CARDIO- Pacemaker 2022-07-14 00:00:00 [facility] XR CHEST 1 VW 2022-03-26 04:43:10 Singer [facility] COMP. METABOLIC PANEL 2022-03-26 03:49:00 Sidney Tinoco [facility] ([id number]) [facility] CBC WITH DIFF 2022-03-26 03:49:00 Singer [facility] RAPID INFLUENZA A/B 2022-03-26 03:49:00 Sidney Tinoco [facility] N-TERMINAL PRO-BNP 2022-03-26 03:49:00 Singer [facility] CONSENT/REFUSAL FOR 2022-03-26 03:21:12 Doctor Unassigned, No [facility] [place] [facility] Name [facility] CONSENT/REFUSAL FOR 2022-02-27 18:52:05 Doctor Unassigned, No [facility] [place] [facility] CONSENT/REFUSAL FOR 2022-02-24 01:03:25 Doctor Unassigned, No Un [facility] DIAGNOSIS AND TREATMENT Name Medical Branch POCT URINALYSIS 2022-02-08 22:31:00 Michael Barbour [facility] ASSIGNMENT OF BENEFITS 2022-02-08 22:17:58 Doctor Unassigned, No [facility] Name Medical Branch XR FOREARM 2 VW RIGHT 2021-09-20 22:18:00 Elliott Gomez [facility] [id number] 2021-04-14 00:00:00 NATST [facility] [id number] 2021-04-11 00:00:00 KREMI [facility] [id number] 2021-04-11 00:00:00 KREMI [facility] [id number] 2021-04-10 00:00:00 PEPGR [facility] [id number] 2021-04-06 00:00:00 BRIDGER.06 [facility] [id number] 2021-03-31 00:00:00 MCKRO [facility] [id number] 2021-03-31 00:00:00 MCKRO [facility] [id number] 2021-03-31 00:00:00 MCKRO [facility] [id number] 2021-03-31 00:00:00 MCKRO [facility] [id number] 2021-03-31 00:00:00 MCKRO [facility] [id number] 2021-03-31 00:00:00 MCKRO [facility] [id number] 2021-03-31 00:00:00 MCKRO [facility] [id number] 2021-03-31 00:00:00 MCKRO [facility] [id number] 2021-03-31 00:00:00 MCKRO [facility] [id number] 2021-03-28 00:00:00 DABSA [facility] [id number] 2021-03-28 00:00:00 [facility] [id number] 2021-03-28 00:00:00 [facility] RELEASE,BRODERICK 2021-01-20 09:50:00 Fransisco Martinez [facility] TENOTOMY,TOE 2021-01-20 09:50:00 Fransisco Martinez [facility] TENOTOMY,TOE 2021-01-20 09:50:00 Fransisco Martinez [facility] CAPSULOTOMY,TOE 2021-01-20 09:50:00 Fransisco Martinez [facility] ARTHROPLASTY,TOE 2021-01-20 09:50:00 Fransisco Martinez [facility] POCT-GLUCOSE METER 2021-01-20 09:16:00 Fransisco Martinez [facility] SARS-COV2/RT-PCR ([facility] & 2021-01-16 11:18:00 Fransisco Martinez I [facility] REF LABS) Center HEMOGLOBIN 2021-01-16 11:18:00 Ronn Tinoco [facility] BASIC METABOLIC PANEL 2021-01-16 11:18:00 Ronn Tinoco [facility] [place] ECG 12-LEAD 2021-01-16 11:10:13 [facility] ECG 12-LEAD 2021-01-16 11:10:13 Unknown, Hl7 Doctor [facility] POCT-GLUCOSE METER 2020-12-09 07:24:00 Lanette [facility] BASIC METABOLIC PANEL 2020-12-09 03:34:00 Fransisco Martinez [facility] [place] POCT-GLUCOSE METER 2020-12-08 21:11:00 Lanette [facility] XR FOOT 2 VIEWS LEFT 2020-12-08 18:12:00 Fransisco Martinez [facility] POCT-GLUCOSE METER 2020-12-08 17:53:00 [facility] SURGICALLY OBTAINED 2020-12-08 17:16:47 Fransisco Martinez [facility] CULTURE + GRAM STAIN Center ANAEROBIC CULTURE 2020-12-08 17:16:47 Fransisco Martinez [facility] TISSUE EXAM 2020-12-08 17:13:00 Fransisco Martinez [facility] AMPUTATION,TOE 2020-12-08 16:32:00 Fransisco Martinez [facility] POCT-GLUCOSE METER 2020-12-08 13:37:00 [facility] ECG 12-LEAD 2020-12-08 12:57:36 [facility] 2020-12-08 12:57:36 Unknown, Hl7 Doctor [place] [facility] ECG 12-LEAD 2020-12-08 12:56:01 Unknown, Hl7 Doctor [place] [facility] POCT-GLUCOSE METER 2020-12-08 09:32:00 [facility] CBC W/PLT COUNT & AUTO 2020-12-08 05:48:00 Fransisco Martinez [facility] BASIC METABOLIC PANEL 2020-12-08 05:48:00 Fransisco Martinez [facility] [place] CBC W/PLT COUNT & AUTO 2020-12-08 05:48:00 [facility] POCT-GLUCOSE METER 2020-12-07 21:16:00 [facility] POCT-GLUCOSE METER 2020-12-07 17:43:00 [facility] POCT-GLUCOSE METER 2020-12-07 12:45:00 [facility] POCT-GLUCOSE METER 2020-12-07 07:54:00 [facility] BASIC METABOLIC PANEL 2020-12-07 03:40:00 Fransisco Martinez [facility] [place] POCT-GLUCOSE METER 2020-12-06 20:52:00 [facility] POCT-GLUCOSE METER 2020-12-06 17:23:00 [facility] VANCOMYCIN LEVEL, TROUGH 2020-12-06 15:18:00 Kirsten Brendanrobert [facility] POCT-GLUCOSE METER 2020-12-06 11:35:00 [facility] POCT-GLUCOSE METER 2020-12-06 07:51:00 [facility] BASIC METABOLIC PANEL 2020-12-06 05:24:00 [facility] (7) Liz Center MAGNESIUM 2020-12-06 05:24:00 [facility] CBC W/PLT COUNT & AUTO 2020-12-06 05:24:00 [facility] DIFFERENTIAL [facility] HEMOGLOBIN A1C 2020-12-06 05:24:00 [facility] CBC W/PLT COUNT & AUTO 2020-12-06 05:24:00 [facility] POCT-GLUCOSE METER 2020-12-05 20:16:00 [facility] LACTIC ACID, VENOUS 2020-12-05 17:08:00 Ricardo Hightower [facility] XR FOOT 3 VIEWS LEFT 2020-12-05 14:24:00 Ricardo Hightower [facility] CBC W/PLT COUNT & AUTO 2020-12-05 14:12:00 Ricardo Hightower [facility] LACTIC ACID, VENOUS 2020-12-05 14:12:00 Ricardo Hightower [facility] COMPREHENSIVE METABOLIC 2020-12-05 14:12:00 Ricardo Hightower [facility] PROTHROMBIN TIME/INR 2020-12-05 14:12:00 Ricardo Hightower [facility] APTT 2020-12-05 14:12:00 Ricardo Hightower [facility] CBC W/PLT COUNT & AUTO 2020-12-05 14:12:00 Ricardo Hightower [facility] WOUND CULTURE + GRAM 2020-12-05 14:12:00 Ricardo Hightower Anayeli [facility] Center BLOOD CULTURE 2020-12-05 14:12:00 Ricardo Hightower [facility] BLOOD CULTURE 2020-12-05 14:11:00 CampbellRicardo Rafal [facility] Diagnostic Colonoscopy 2012-06-13 00:00:00 [place] [facility] 81.54 2010-12-23 00:00:00 MATVA.01 [facility] SKIN- Basel Cell [place] [facility]- Knee [facility] [place] [facility] Plan of Care Planned [facility] 00:[facility]00 (#1) [code = [facility] INFLUENZA VACCINE (#1)] Future Scheduled 2022-02-[address] [facility] 00:00:00 (#1) [code = [facility] INFLUENZA VACCINE (#1)] Future Scheduled 2022-02-[address] [facility] 00:00:00 (#1) [code = [facility] INFLUENZA VACCINE (#1)] Future Scheduled 2022-02-[address] [facility] 00:00:00 (#1) [code = [facility] INFLUENZA VACCINE (#1)] Future Scheduled 2022-02-[address] [facility] 00:00:00 (#1) [code = [facility] INFLUENZA VACCINE (#1)] Future Scheduled [...] 04:47:58 (#1) [code = [facility] Vaccination (#1)] Center Future Scheduled 2021-12-16 COVID-19 Vaccination [facility] Test 04:47:58 (#1) [code = DONYA PEARSON [facility] Vaccination (#1)] Center Future Scheduled 2021-12-16 [...] 00:00:00 measurement Medical Center (procedure) [code = 68118152] Future Scheduled 2021-06-[address] [facility] 00[facility] measurement [facility] (procedure) [code = 33603512] Future Scheduled 2021-06-[address] [facility] 00:00:00 measurement [facility] (procedure) [code = 04568780] Future Scheduled 2021-06-[address] [facility] 00:00:00 measurement [facility] Center (procedure) [code = 51653328] Future Scheduled 2021-06-[address] [facility] 00:00:00 measurement [facility] (procedure) [code = 15178484] Future Scheduled 2021-06-[address] [facility] 00:00:00 measurement [facility] (procedure) [code = 61984644] Future Scheduled 2021-06-[address] [facility] 00:00:00 measurement [facility] (procedure) [code = 13637436] Future Scheduled 2021-06-[address] [facility] 00:00:00 measurement [facility] (procedure) [code = 94742738] Future Scheduled 2021-06-[address] [facility] 00:00:00 measurement [facility] (procedure) [code = 18482914] Future Scheduled 2021-06-[address] [facility] 00:00:00 measurement [facility] (procedure) [code = 70669833] Future Scheduled 2021-06-[address] [facility] 00:00:00 measurement [facility] (procedure) [code = 12316678] Future Scheduled 2021-06-[address] [facility] 00:00:00 measurement Medical Center (procedure) [code = 62623996] Future Scheduled 2021-06-[address] [facility] 00:00:00 measurement [facility] (procedure) [code = 02682651] Future Scheduled 2021-06-[address] [facility] 00:00:00 measurement [facility] (procedure) [code = 50877916] Future Scheduled 2021-06-[address] [facility] 00:00:00 measurement [facility] Center (procedure) [code = 38094109] Future Scheduled 2021-06-[address] [facility] 00:00:00 measurement [facility] (procedure) [code = 42143885] Future Scheduled 2021-06-[address] 00:00:00 measurement Medical Center (procedure) [code = 50529783] Future Scheduled 2021-02-[address] [...] 00:00:00 examination Medical Center (regime/therapy) [code = 221441829] Future Scheduled 1949 Urine screening for [facility] 00:00:00 protein (procedure) Medical Center [code = 041595185] Future Scheduled 1949 DIABETIC EYE EXAM [facility] 00:00:00 [code = DIABETIC EYE Medical Center EXAM] Future Scheduled [address] [facility] 00:00:00 examination Medical Center (regime/therapy) [code = 769872544] Future Scheduled 1949 Urine screening for [facility] 00:00:00 protein (procedure) Medical Center [code = 845751430] Future Scheduled 1949 DIABETIC EYE EXAM [facility] 00:00:00 [code = DIABETIC EYE Medical Center EXAM] Future Scheduled [address] [facility] 00:00:00 examination Medical Center (regime/therapy) [code = 204157920] Future Scheduled 1949 Urine screening for [facility] 00:00:00 protein (procedure) Medical Center [code = 844010920] Future Scheduled 1949 DIABETIC EYE EXAM [facility] 00:00:00 [code = DIABETIC EYE Medical Center EXAM] Future Scheduled [address] [facility] 00:00:00 examination Medical Center (regime/therapy) [code = 624060064] Future Scheduled 1949 Urine screening [facility] 00:00:00 protein (procedure) Medical Center [code = 618090081] Future Scheduled 1949 DIABETIC EYE EXAM [facility] 00:00:00 [code = DIABETIC EYE Medical Center EXAM] Future Scheduled [address] [facility] 00:00:00 examination Medical Center (regime/therapy) [code = 388896226] Future Scheduled 1949 Urine screening [facility] 00:00:00 protein (procedure) Medical Center [code = 687551567] Future Scheduled 1949 DIABETIC EYE EXAM [facility] 00:00:00 [code = DIABETIC EYE Medical Center EXAM] Future Scheduled [address] [facility] 00:00:00 examination Medical Center (regime/therapy) [code = 277901818] Future Scheduled 1949 Urine screening [facility] 00:00:00 protein (procedure) Medical Center [code = 785980283] Future Scheduled [address] DIABETIC EYE EXAM [facility] 00:00:00 [code = DIABETIC EYE Medical Center EXAM] Future Scheduled [address] [facility] 00:00:00 examination Medical Center (regime/therapy) [code = 020586196] Future Scheduled 1949 Urine screening [facility] 00:00:00 protein (procedure) Medical Center [code = 948456656] Future Scheduled 1949 DIABETIC EYE EXAM [facility] 00:00:00 [code = DIABETIC EYE Medical Center EXAM] Future Scheduled [address] 00:00:00 examination Medical Center (regime/therapy) [code = 554325937] Future Scheduled 1949 Urine screening [facility] 00:00:00 protein (procedure) Medical Center [code = 617047907] Future Scheduled 1949 DIABETIC EYE EXAM [facility] 00:00:00 [code = DIABETIC EYE Medical Center EXAM] Future Scheduled [address] [facility] 00:00:00 examination Medical Center (regime/therapy) [code = 931056200] Future Scheduled 1949 Urine screening [facility] 00:00:00 protein (procedure) Medical Center [code = 258133632] Future Scheduled 1949 DIABETIC EYE EXAM [facility] 00:00:00 [code = DIABETIC EYE Medical Center EXAM] Future Scheduled [address] [facility] 00:00:00 examination Medical Center (regime/therapy) [code = 664743298] Future Scheduled 1949 Urine screening [facility] 00:00:00 protein (procedure) Medical Center [code = 478551003] Future Scheduled 1949 DIABETIC EYE EXAM [facility] 00:00:00 [code = DIABETIC EYE Medical Center EXAM] Future Scheduled [address] [facility] 00:00:00 examination Medical Center (regime/therapy) [code = 371157881] Future Scheduled 1949 Urine screening for [facility] 00:00:00 protein (procedure) Medical Center [code = 441264342] Future Scheduled 1949 DIABETIC EYE EXAM [facility] 00:00:00 [code = DIABETIC EYE Medical Center EXAM] Future Scheduled [address] 00:00:00 examination Medical Center (regime/therapy) [code = 682745865] Future Scheduled 1949 Urine screening [facility] 00:00:00 protein (procedure) Medical Center [code = 343031677] Future Scheduled [address] DIABETIC EYE EXAM [facility] 00:00:00 [code = DIABETIC EYE Medical Center EXAM] Future Scheduled [address] 00:00:00 examination Medical Center (regime/therapy) [code = 412647699] Future Scheduled 1949 Urine screening [facility] 00:00:00 protein (procedure) Medical Center [code = 942632860] Future Scheduled 1949 DIABETIC EYE EXAM [facility] 00:00:00 [code = DIABETIC EYE Medical Center EXAM] Future Scheduled [address] 00:00:00 examination Medical Center (regime/therapy) [code = 042236382] Future Scheduled 1949 Urine screening [facility] 00:00:00 protein (procedure) Medical Center [code = 410292288] Future Scheduled 1949 DIABETIC EYE EXAM [facility] 00:00:00 [code = DIABETIC EYE Medical Center EXAM] Future Scheduled [address] 00:00:00 examination Medical Center (regime/therapy) [code = 396357665] Future Scheduled 1949 Urine screening [facility] 00:00:00 protein (procedure) Medical Center [code = 594056719] Future Scheduled 1949 DIABETIC EYE EXAM [facility] 00:00:00 [code = DIABETIC EYE Medical Center EXAM] Future Scheduled [address] [facility] 00:00:00 examination Medical Center (regime/therapy) [code = 301592430] Future Scheduled 1949 Urine screening for [facility] 00:00:00 protein (procedure) Medical Center [code = 523708676] Future Scheduled 1949 DIABETIC EYE EXAM [facility] 00:00:00 [code = DIABETIC EYE Medical Center EXAM] Future Scheduled [address] [facility] 00:00:00 examination Medical Center (regime/therapy) [code = 874234365] Future Scheduled 1949 Urine screening for [facility] 00:00:00 protein (procedure) Medical Center [code = 989305100] Future Scheduled 1939 COVID-19 VACCINE (#1) CH [...] Department ID 2023-04-12 Outpatient Cope, STLMLC STLMLC [id number] Common 10:57:00 Silverio [id number] [facility] 2023-02-28 Outpatient Cope, STLMLC STLMLC [id number] Common 09:18:00 Silverio [address] [facility] 2022-11-01 Outpatient Cope, STLMLC STLMLC [id number] Common 15:04:01 Silverio [address]28[address] [facility] 2022-07-16 Outpatient Cope, STLMLC STLMLC [id number] Common 09:22:03 Silverio [id number] [facility] 2022-04-08 Outpatient Cope, STLMLC STLMLC [id number] Common 09:07:01 Silverio [id number] [facility] 2022-03-30 Outpatient Cope, STLMLC STLMLC [id number] Common 12:03:00 Silverio [id number] [facility] 2021-11-05 Outpatient Cope, STLMLC STLMLC [id number] Common 14:38:03 Silverio [id number] [facility] 2021-10-29 Outpatient Cope, STLMLC STLMLC [id number] Common 10:30:18 Silverio [facility] 2021-05-13 Inpatient FOUZIA Mccollum [facility] [id number] [facility] 14:03:00 , January 40 [facility] 2021-03-22 Outpatient MICHELLE, [facility] Surgery [id number] [facility] 05:54:07 [place] 2021-03-22 Outpatient ROSS, [facility] Surgery [id number] [facility] 05:00:01 [place] 2021-03-20 Outpatient MICHELLE, [facility] Surgery [id number] [facility] 17:59:31 [place] 2023-02-17 2023-02-17 Andreina J [facility] [place] [id number] [place] 00:00:00 00:00:00 Mary PHYSICAL THERAPY TECHNICIAN: [facility] [id number] [facility] Urology [facility] [address], [place] [address] , Ph. 2023-02-13 2023-02-13 Emergency X [facility] ERT [id number] Univers 08:17:00 12:12:00 SIERRA barry [facility] 2023-02-13 2023-02-13 [facility] [id number] Univers 08:17:00 12:12:00 Sierra STILL [id number] itJonathan [id number] [facility] [id number] [place] [id number] [place] 2022-10-21 2022-10-21 OFFICE STLMLC STLMLC [id number] Co mmon 00:00:00 00:00:00 VISIT [facility] ESTAB PT - [facility] LEVEL 4 [place] [facility]-10-12 2022-10-13 Inpatient MEGHA AbdulWU INTE.02 [id number] [facility] 10:19:00 15:42:00 Ruiz 39 [facility] 2022-10-09 2022-10-09 Outpatient MEGHA Rausch CATH [id number] [facility] 05:39:00 05:39:00 Noni 36 [facility] 2022-08-26 2022-08-26 Outpatient R JORDI [facility] [id number] Univers 10:20:00 10:41:49 TAMEKA lee [facility] 2022-08-26 2022-08-26 Urgent Tameka Bacon [facility] 1.2.840 .114 [id number] Univers 10:20:00 10:41:49 Care Unknown, Attending HEALTH [id number] ity travis STILL 4.2.7.2.686 David as GLADIS?BLEA [phone] Ne rubén [address] MEDICAL OFFICE BUILDING 2022-08-12 2022-08-12 (TEL) STLMLC STLMLC [id number] Co mmon 00:00:00 00:00:00 Spirit - [facility]I [facility] 2022-07-20 2022-07-20 OFFICE STLMLC STLMLC [id number] Co mmon 00:00:00 00:00:00 VISIT Spirit ESTAB PT - CHI LEVEL 4 [facility] 2022-07-20 2022-07-20 SUB ANNUAL STLMLC STLMLC [id number] Common 00:00:00 00:00:00 MCR Spirit WELLNESS - CHI VISIT [facility] 2022-07-16 2022-07-16 (TEL) STLMLC STLMLC [id number] Co mmon 00:00:00 00:00:00 Spirit - [facility] 2022-07-15 2022-07-15 Andreina Snowden [facility] [place] [id number] [place] 00:00:00 00:00:00 Mary PHYSICAL THERAPY TECHNICIAN: Hari fang [id number] [facility] [address], [place] [address] , Ph. 2022-07-11 2022-07-11 Outpatient Baum_L [facility] U [id number] [place] 00:00:00 00:00:00 [id number] [facility] 2022-07-11 2022-07-11 Outpatient Baum_L [facility] U [id number] [place] 00:00:00 00:00:00 [id number] [facility] 2022-07-11 2022-07-11 Outpatient Baum_L HM[facility] U [id number] [place] 00:00:00 00:00:00 [id number] [facility] 2022-07-11 2022-07-11 Outpatient Baum_L [facility] U [id number] [place] 00:00:00 00:00:00 [id number] [facility] 2022-07-11 2022-07-11 Outpatient Baum_L HMU HMU [id number] [place] 00:00:00 00:00:00 [id number] [facility] 2022-07-11 2022-07-11 Outpatient Baum_L HMU U [id number] [place] 00:00:00 00:00:00 [id number] [facility] 2022-07-11 2022-07-11 Outpatient Baum_L HMU U [id number] [place] 00:00:00 00:00:00 [id number] [facility] 2022-07-05 2022-07-05 (TEL) STLMLC STLMLC [id number] Co mmon 00:00:00 00:00:00 [facility] 2022-04-15 2022-04-15 (TEL) STLMLC STLMLC [id number] Co mmon 00:00:00 00:00:00 [facility] 2022-04-12 2022-04-12 OFFICE STLMLC STLMLC [id number] Co mmon 00:00:00 00:00:00 VISIT [facility] ESTAB PT - CHI LEVEL 4 [facility] 2022-03-31 2022-03-31 OFFICE STLMLC STLMLC [id number] Co mmon 00:00:00 00:00:00 VISIT Spirit ESTAB PT - CHI LEVEL 4 [facility] 2022-03-30 2022-03-30 (TEL) STLMLC STLMLC [id number] Co mmon 00:00:00 00:00:00 [facility] 2022-03-25 2022-03-26 Emergency X [facility] ERT [id number] Univers 22:26:00 01:10:00 SIDNEY barry [facility] 2022-03-25 2022-03-26 Emergency [facility] [id number] [id number] Univers 22:26:00 01:10:00 Sidney STILL [id number] russel [facility] 4.2.7.2.686 [facility] [id number] [place] [address] [address] 2022-03-18 2022-03-18 (TEL) STLMLC STLMLC [id number] Co mmon 00:00:00 00:00:00 [facility] 2022-03-03 2022-03-03 Outpatient Daniel_T VFP VFP [id number] [address] [place] [address] 00:00:00 00:00:00 [id number] Family Practic e 2022-03-03 2022-03-03 Outpatient Baum_L U [facility] [id number] [place] 00:00:00 00:00:00 97789 [facility] 2022-02-27 2022-02-27 Emergency [facility] [id number] Univers 13:53:00 14:15:00 SIERRA barry [facility] 2022-02-27 2022-02-27 [facility] 1.2.840.114 [id number] Univers 13:53:00 14:15:00 Sierra STILL [id number] asha [facility] 4.2.7.2.686 [facility] [id number] [address] 2022-02-24 2022-02-24 Outpatient Baum_L [facility] [id number] 00:00:00 00:00:00 [id number] [facility] 2022-02-23 2022-02-23 Emergency [facility] 1.2.840.114 [id number] Univers 20:40:00 22:58:00 Cale STILL 350.1.13.10 [facility] 4.2.7.2.686 [facility] [id number] [address] 2022-02-23 2022-02-23 Outpatient Trey [facility] [id number] Univers 19:30:00 19:53:40 MICHAEL barry [facility] 2022-02-23 2022-02-23 Nurse Nurse, Krzysztof [facility] 1.2.840.114 [id number] Univers 19:30:00 19:53:40 Visit Michael Barbour [facility] 350.1.13.10 asha robles [place] 4.2.7.2.686 David as GLADIS?BLEA [id number] [address] MEDICAL OFFICE BUILDING 2022-02-23 2022-02-23 Outpatient Trey [facility] ERT [id number] Univers 19:30:00 19:53:40 MICHAEL [facility] 2022-02-23 2022-02-23 Outpatient Trey [facility] [id number] [facility] 19:40:00 19:40:00 MICHAEL [facility] 2022-02-18 2022-02-18 Outpatient Baum_L [facility] [id number] [place] 00:00:00 00:00:00 62695 [facility] 2022-02-18 2022-02-18 Andreina Snowden [facility] [place] - [id number] [place] 00:00:00 00:00:00 Mary PHYSICAL THERAPY TECHNICIAN: [facility] 49450 [facility] [address], [place] [address] , Ph. 2022-02-18 2022-02-18 Outpatient Mary [facility] [id number] 00:00:00 00:00:00 Andreina Snowden [id number] 2022-02-11 2022-02-11 Outpatient Baum_L [facility] [id number] [place] 00:00:00 00:00:00 [id number] [facility] 2022-02-08 2022-02-08 Niall Barker [facility] 1.2.840.114 [id number] [facility] 17:20:00 17:40:00 Xavi Michael Barbour [facility] 350.1.13.10 [facility] 4.2.7.2.686 David as GLADIS?BLEA [id number] [address] MEDICAL OFFICE BUILDING 2022-02-08 2022-02-08 Outpatient Trey VARMA [facility] [id number] Univers 17:20:00 17:20:00 NIALL barry [facility] 2022-02-08 2022-02-08 Outpatient Baum_L [facility] [id number] [place] 00:00:00 00:00:00 [id number] [facility] 2022-02-08 2022-02-08 Orders Doctor SIDHU 1.2.840.[id number] [place] [address] 00:00:00 00:00:00 Only Unassigned, JEISON 350.1.13.10 ity of [place] [facility] 4.2.7.2.686 David as [id number] [facility] [address] 2022-02-04 2022-02-04 Outpatient Baum_L [facility] [id number] [place] 00:00:00 00:00:00 02201 [facility] 2022-02-04 2022-02-04 Outpatient Mary Belen [facility] [id number] e-2 00:00:00 00:00:00 Andreina Snowden [id number] 2022-02-04 2022-02-04 Andreina Snowden [facility] [place] - [id number] [place] 00:00:00 00:00:00 Mary, PHYSICAL THERAPY TECHNICIAN: Hari Pollock 7[address] [facility] [address], [place] [address] , Ph. 2022-01-08 2022-01-08 (TEL) STLMLC STLMLC [id number] Co mmon 00:00:00 00:00:00 [facility] 2022-01-01 2022-01-01 (TEL) STLMLC STLMLC [id number] Co mmon 00:00:00 00:00:00 [facility] 2021-12-23 2021-12-23 OFFICE STLMLC STLMLC [id number] Co mmon 00:00:00 00:00:00 VISIT [facility] LEVEL 4 [facility] 2021-11-23 2021-11-23 Outpatient Daniel_T VFP VFP [id number] 2-20 [facility] 02:09:00 02:09:00 [id number] Family Practic e 2021-11-20 2021-11-20 Outpatient Daniel_T VFP VFP [id number] 2-20 [facility] 09:00:00 09:00:00 [id number] Family Practic e 2021-10-30 2021-10-30 Outpatient Daniel_T VFP VFP [id number] 2-20 [facility] 01:57:00 01:57:00 [id number] Family Practic e 2021-10-30 2021-10-30 Waqar VFP [place] - [id number] V illage 00:00:00 00:00:00 Dilalmita [facility] Family DarriusLoren - Fannie holder MD: [id number] VM_HOU_Shad e Shadow ow [address], [place] [address] , Ph. 2021-10-29 2021-10-29 Outpatient Darrius_T VFP P [id number] 2-20 Village 01:49:00 01:49:00 [id number] Family Rivas [place] 2021-10-29 2021-10-29 OFFICE STLMLC STLMLC [id number] Co mmon 00:00:00 00:00:00 VISIT [facility] PT LEVEL 4 - [facility] 2021-09-28 2021-09-28 Outpatient FOUZIA MEGHA BhattiWU SURG [id number] [facility] 08:52:00 08:52:00 Ruiz 22 [facility] 2021-09-20 2021-09-20 Outpatient [facility] [id number] Univers 17:06:34 23:59:00 ELLIOTT ity [facility] 2021-09-20 2021-09-20 Hospital [facility] 1..840.114 [id number] Univers 17:06:34 23:59:00 Encounter [facility] [id number] [facility] 4.2.7.2.686 David as GLADIS?BLEA [id number] Ne rubén [facility] [address] MEDICAL OFFICE BUILDING 2021-09-20 2021-09-20 Outpatient Trey [facility] [id number] Univers 18:00:00 18:00:00 ELLIOTT ity [facility] 2021-09-20 2021-09-20 [facility] 1.2.840.114 [id number] Univers 18:00:00 18:00:00 Visit Niall [facility] 350.1.13.10 [facility] 4.2.7.2.686 David as GLADIS?BLEA [id number] Ne rubén [facility] [address] MEDICAL OFFICE BUILDING 2021-09-08 2021-09-08 Refstefano [facility] 1.2.840.114 [id number] Univers 00:00:00 00:00:00 [facility] [id number] it y of [place] 4.2.7.2.686 David as GLADIS?BLEA [id number] [address] MEDICAL OFFICE [facility] 2021-09-05 2021-09-05 Outpatient R FRANCISCA [facility] [id number] Univers 12:20:00 12:29:07 MICHAEL [facility] 2021-09-05 2021-09-05 Urgent Jason [facility] 1.2.840.114 [id number] Univers 12:20:00 12:29:07 Care Messidesaurabh [facility] [id number] ity of [place] 4.2.7.2.686 David as GLADIS?BLEA [phone] [address] OFFICE [facility] 2021-08-28 2021-08-28 Outpatient Darrius_T VFP [facility] [id number] [facility] 10:47:00 10:47:00 [id number] Family [place] 2021-08-28 2021-08-28 Refill [facility] 1.2.840.114 [id number] Univers 00:00:00 00:00:00 [facility] [id number] it y of [place] 4.2.7.2.686 David as GLADIS?BLEA [id number] [address] OFFICE [facility] 2021-08-25 2021-08-25 Outpatient [facility] [id number] Univers 12:00:00 12:33:50 ELLIOTT [facility] 2021-08-05 2021-08-05 Outpatient Daniel_T VFP VFP [id number] [facility] 06:43:00 06:43:00 [id number] Family [place] 2021-08-05 2021-08-05 Waqar [facility] [place] - [id number] V illage 00:00:00 00:00:00 [facility] Family Rizo, Loren - Practi anayeli PEARSON: 25983 VM_JUAN J_Robin e Shadow ow [address] [facility], [address], [place] [address] , Ph. 2021-08-03 2021-08-03 Outpatient Danifouiza_T VFP VFP [id number] 2-20 [facility] 11:57:00 11:57:00 [id number] Family Practic e 2021-07-17 2021-07-17 Outpatient Baum_L [facility] U [id number] [place] 00:00:00 00:00:00 [facility] 2021-07-16 2021-07-16 Outpatient Baum_L HMU U [id number] [place] 03:56:00 03:56:00 [facility] 2021-07-16 2021-07-16 Health system [place] - [id number] [place] 00:00:00 00:00:00 MD Hollie: Hari simpson 14276 [facility] Urology [facility] [address], [place] [address] , Ph. 2021-07-16 2021-07-16 Outpatient Hollie, HMU U [id number] 00:00:00 00:00:00 Ludwig [id number] 2021-06-19 2021-06-19 Outpatient Baum_L HMU U [id number] [place] 12:09:00 12:09:00 [facility] 2021-06-01 2021-06-02 Inpatient MERCEDES Triana INTE [id number] [facility] 11:07:00 16:36:00 Marcello 55 [facility] 2021-05-28 2021-05-28 Outpatient MEGHA TrianaWBelen RADI [id number] [facility] 16:15:00 16:15:00 Marcello 50 [facility] 2021-04-28 2021-05-12 Inpatient EL Akintoliliane HCAWU WCAR [id number] [facility] 11:41:00 00:00:00 January 82 [facility] 2021-04-10 2021-04-21 Inpatient MEGHA PersaudWBelen REHA [id number] [facility] 20:01:00 11:15:00 Rafal 59 [facility] 2021-03-28 2021-04-10 Inpatient FOUZIA Haas HCAWU INTE [id number] [facility] 08:17:00 21:05:00 Radha 68 [facility] 2021-03-22 2021-03-22 Emergency [facility] [id number] [id number] Univers 11:49:00 14:14:00 Cale [facility]on [facility].13.10 [facility] 4.2.7.2.686 [facility] [id number] [place] [address] [address] 2021-03-22 2021-03-22 Emergency X [facility]RT [id number] Univers 11:41:00 11:41:00 [facility] 2021-03-05 2021-03-05 Mann Hernandez [facility] [id number] 00:00:00 00:00:00 [facility] 2021-01-20 2021-01-20 Hospital [facility] [id number] 05:52:00 13:34:[address] V[address]yra [facility] 2021-01-20 2021-01-20 [id number] 10:05:00 12:25:[address] [facility] 2021-01-20 2021-01-20 [facility] [id number] 09:30:00 12:00:00 Fransisco Cantrell [facility] 2021-01-20 2021-01-20 Travel [facility] [id number] [facility] 00:00:00 00:00:00 [facility] 2021-01-19 2021-01-19 [facility] [id number] 08:25:00 23:59:00 Encounter [facility] 2021-01-19 2021-01-19 Outpatient EL SLE SLE [id number] [facility] 00:00:00 00:00:00 2021-01-19 2021-01-19 Travel [facility] [id number] [facility] 00:[facility] 00:00:00 [facility] 2021-01-16 2021-01-16 Hospital FOUZIA Martinez, [facility] [id number] 10:30:00 23:59:00 [facility] [place] 2021-01-16 2021-01-16 Outpatient EL SLE [facility] [id number] [facility] 00:00:00 00:00:00 2021-01-16 2021-01-16 Outpatient EL [facility]H [facility] [id number] [facility] 00:00:00 00:00:00 2021-01-16 2021-01-16 Outpatient EL SLEH [facility] [id number] [facility] 00:00:00 00:00:00 2021-01-16 2021-01-16 Orders [facility] [id number] 00:00:00 00:00:00 [facility] 2021-01-15 2021-01-15 Outpatient SLEH [facility]H [id number] [facility] 00:00:00 00:00:00 2020-12-05 2020-12-09 Hospital ER Campbell Ricardo Lyles [facility] [id number] 14:20:00 13:18:00 [facility] 2020-12-08 2020-12-08 Anesthesia Ellis Abrams [facility] [id number] 16:40:00 17:49:00 Event Dev Andreasangela Villalobos [facility] 2020-12-08 2020-12-08 Surgery Michelle [facility] [id number] 15:30:00 16:44:00 Fransisco Cantrell [facility] 2020-12-08 2020-12-08 Orders [facility] [id number] 00:00:00 00:00:00 [facility] 2020-12-05 2020-12-05 Emergency ER SLE Emergency [id number] [facility] 13:27:00 13:27:00 2020-12-05 2020-12-05 Travel [facility] [id number] [facility] 00:00:00 00:00:00 [facility] 2020-06-23 2020-06-23 [facility] [id number] 23:59:00 23:59:00 Encounter [facility] 2020-06-23 2020-06-23 Outpatient [facility] [id number] SLE 00:00:00 00:00:00 2020-05-23 2020-05-23 Orders [facility] [id number] 00:00:00 00:00:00 Only [facility] 2019-11-30 2019-11-30 Outpatient MICHAEL [facility] [id number] [facility] 00:00:00 00:00:00 KAVYA 2010-12-22 2010-12-24 Inpatient [facility]ZIA Marin [facility] [id number] [facility] 07:05:00 16:45:00 Lobo 30 [facility] Results Test Description Test Time Test Comments Results Result Comments Source HEMOGLOBIN A1c 2023-01-17 00:00:00 Test Item Value Reference Range Interpretation Comme nts HEMOGLOBIN A1c (test code = 6.2 % See_Comment H [Automated message] The system 4548-4) which generated this result transmitted ref erence range: 4.2-5.6 %. The reference range was not used to int erpret this result as normal/abnor mal. TSH REFLEX TO FREE [id number] 00:00:00 Test Item Value Reference Range Interpretation Comments TSH REFLEX TO FREE 0.582 UIU/ML See_Comment [Automat ed message] T4 (test code = The system w [facility] 76764-2) generated this result transmitted ref erence range: 0.400-4. 100 UIU/ML. The ref erence range was not u sed to interpret this result as normal/abnor mal. LIPID PANEL WITH REFLEX DIRECT [id number] 00:00:00 Test Item Value Reference Range Interpretation Comments CALC LDL CHOL (test 87 MG/DL See_Comment [Automa delores message] code = 48341-7) The system [facility] generated this result transmit delores reference range : <100 MG/DL. The reference range was not used to interpret this result as normal/abnormal . CHOLESTEROL (test code 163 MG/DL See_Comment [Aut omated message] = 3-3) The system [facility] generated this result transmit delores reference range : <200 MG/DL. The reference range was not used to interpret this result as normal/abnormal . HDL CHOLESTEROL (test 59 MG/DL See_Comment [Auto mated message] code = 2085-9) The system [facility] generated this result transmit delores reference range : >39 MG/DL. The refe rence range was not u sed to interpret th is result as normal/abnormal . RISK RATIO LDL/HDL 1.47 RATIO See_Comment [Automat ed message] (test code = 89131-6) The sy stem which generated this result transmit delores reference range : <3.55 RATIO. Th e reference range was not used to interpret this result as normal/abnormal . TRIGLYCERIDES (test 77 MG/DL See_Comment [Automa delores message] code = 2571-8) The system [facility] generated this result transmit delores reference range : <150 MG/DL. The reference range was not used to interpret this result as normal/abnormal . PATHOLOGIST SMEAR [id number] 00:00:00 Test Item Value Reference Range Interpretation Comments BASOPHILS (test code 1.0 % = 00669-7) DIAGNOSIS: (test (NOTE) code = 57245-1) COMMENTS (test code (NOTE) = 19036-7) EOSINOPHILS (test 9.4 % code = 59572-0) HEMATOCRIT (test 32.9 % See_Comment L [Automated message] code = 67305-3) The system [facility] generated this result transmit delores reference range : 40.0-51.0 %. Th e reference range was not used to interpret this result as normal/abnormal . HEMOGLOBIN (test 10.1 G/DL See_Comment L [Automated message] code = 718-7) The system [facility] generated this result transmit delores reference range : 13.5-17.0 G/DL. The reference range was not used to interpret this result as normal/abnormal . LYMPHOCYTES (test 31.8 % code = 68511-7) MCH (test code = 23.4 PG See_Comment L [Automated message] 18838-6) The system [facility] generated this result transmit delores reference range : 25.0-33.0 PG. T he reference range was not used to interpret this result as normal/abnormal . MCHC (test code = 30.7 G/DL See_Comment L [Automate d message] 79969-4) The system [employer] generated this result transmit delores reference range : 31.0-36.0 G/DL. The reference range was not used to interpret this result as normal/abnormal . MCV (test code = 76.3 fL See_Comment L [Automated message] 67688-0) The system [employer] generated this result transmit delores reference range : 80.0-99.0 fL. T he reference range was not used to interpret this result as normal/abnormal . MICROSCOPIC (NOTE) DESCRIPTION: (test code = 05402-0) MONOCYTES (test code 11.9 % = 66865-8) NEUTROPHILS (test 45.8 % code = 25302-2) NUCLEATED RBCS (test 0.0 /100 WBC'S See_Comment [Aut omated message] code = 66934-3) The system [employer] generated this result transmit delores reference range : 0.0 /100 WBC'S. The reference range was not used to interpret this result as normal/abnormal . PATHOLOGIST: (test (NOTE) code = 13270-8) PLATELET COUNT (test 303 K/UL See_Comment [Autom ated message] code = 74829-3) The system [employer] generated this result transmit delores reference range : 130-400 K/UL. T he reference range was not used to interpret this result as normal/abnormal . RBC (test code = 4.31 M/UL See_Comment L [Automated message] 26083-7) The system [employer] generated this result transmit delores reference range : 4.50-6.10 M/UL. The reference range was not used to interpret this result as normal/abnormal . RDW (test code = 19.9 % See_Comment H [Automated message] 84713-3) The system [employer] generated this result transmit delores reference range : 11.5-15.0 %. Th e reference range was not used to interpret this result as normal/abnormal . WBC (test code = 7.0 K/UL See_Comment [Automated message] 61110-1) The system [employer] generated this result transmit delores reference range : 3.5-11.0 K/UL. The reference range was not used to interpret this result as normal/abnormal . ALBUMIN/CREATININE RATIO, RANDOM [id number] 00:00:00 Test Item Value Reference Range Interpretation Comments ALBUMIN, URINE, 36.8 MG/DL NOT ESTAB MG/DL RANDOM (test code = 29815-2) CALC ALBUMIN/CREAT, 483 MG/G See_Comment H [Automa delores message] The RND (test code = system [employer] generated 98027-7) this result tra nsmitted reference range : <30 MG/G. The refer ence range was not u sed to interpret this result as normal/abnormal . CREATININE, URINE, 76.2 MG/DL NOT ESTAB MG/DL CONC. (test code = 2161-8) COMPREHENSIVE METABOLIC [id number] 00:00:00 Test Item Value Reference Range Interpretation Comments ALBUMIN (test code = 4.2 G/DL See_Comment [Autom ated message] 1751-7) The system [employer] generated this result transmit delores reference range : 3.5-5.2 G/DL. T he reference range was not used to interpret this result as normal/abnormal . ALKALINE PHOSPHATASE 53 U/L See_Comment [Autom ated message] (test code = 6768-6) The sys tem which generated this result transmit delores reference range : 40-125 U/L. The reference range was not used to interpret this result as normal/abnormal . BILIRUBIN, TOTAL 0.4 MG/DL See_Comment [Automated message] (test code = 1975-2) The sys tem which generated this result transmit delores reference range : <=1.2 MG/DL. Th e reference range was not used to interpret this result as normal/abnormal . BUN (test code = 26 MG/DL See_Comment H [Automated message] 3094-0) The system [employer] generated this result transmit delores reference range : 8-23 MG/DL. The reference range was not used to interpret this result as normal/abnormal . CALCIUM (test code = 9.1 MG/DL See_Comment [Autom ated message] 55535-0) The system [employer] generated this result transmit delores reference range : 8.5-10.5 MG/DL. The reference range was not used to interpret this result as normal/abnormal . CALC A/G RATIO (test 1.9 RATIO See_Comment [Autom ated message] code = 1759-0) The system [facility] generated this result transmit delores reference range : 1.0-2.6 RATIO. The reference range was not used to interpret this result as normal/abnormal . CALC BUN/CREAT (test 24 RATIO See_Comment [Autom ated message] code = 3097-3) The system [facility] generated this result transmit delores reference range : 6-28 RATIO. The reference range was not used to interpret this result as normal/abnormal . CALC GLOBULIN (test 2.2 G/DL See_Comment [Automa delores message] code = 96149-4) The system [facility] generated this result transmit delores reference range : 1.9-3.7 G/DL. T he reference range was not used to interpret this result as normal/abnormal . CARBON DIOXIDE (test 29 MEQ/L See_Comment [Autom ated message] code = 1963-8) The system [facility] generated this result transmit delores reference range : 19-31 MEQ/L. Th e reference range was not used to interpret this result as normal/abnormal . CHLORIDE (test code 100 MEQ/L See_Comment [Automa delores message] = 5-0) The system [facility] generated this result transmit delores reference range : 95-107 MEQ/L. T he reference range was not used to interpret this result as normal/abnormal . CREATININE (test 1.07 MG/DL See_Comment [Automated message] code = 2160-0) The system [facility] generated this result transmit delores reference range : 0.80-1.40 MG/DL . The reference range was not used to interpret this result as normal/abnormal . eGFR (2020 CKD-EPI) 68 ML/MIN/1.73 See_Comment [Auto mated message] (test code = The system [facility] 31121-6) generated this result transmit delores reference range : >60 ML/MIN/1.73. Th e reference range was not used to interpret this result as normal/abnormal . GLUCOSE (test code = 106 MG/DL See_Comment H [Autom ated message] 1558-6) The system [facility] generated this result transmit delores reference range : 70-99 MG/DL. Th e reference range was not used to interpret this result as normal/abnormal . POTASSIUM (test code 4.4 MEQ/L See_Comment [Autom ated message] = 2823-3) The system [facility] [employer] generated this result transmit delores reference range : 3.5-5.4 MEQ/L. The reference range was not used to interpret this result as normal/abnormal . PROTEIN, TOTAL (test 6.4 G/DL See_Comment [Autom ated message] code = 2885-2) The system [facility] generated this result transmit delores reference range : 6.1-8.3 G/DL. T he reference range was not used to interpret this result as normal/abnormal . AST (test code = 16 U/L See_Comment [Automated message] 1920-8) The [facility] generated this result transmit delores reference range : 9-50 U/L. The reference range was not used to interpret this result as normal/abnormal . ALT (test code = 11 U/L See_Comment [Automated message] 0182-6) The system [facility] generated this result transmit delores reference range : 5-50 U/L. The reference range was not used to interpret this result as normal/abnormal . SODIUM (test code = 140 MEQ/L See_Comment [Automa delores message] 5861-2) The [facility] generated this result transmit delores reference range : 133-146 MEQ/L. The reference range was not used to interpret this result as normal/abnormal . - XR CHEST [id number] 20:29:00 [facility] 1940 Sex: M Patient Name: COLE JEFFREY Unit No: [id number] EXAMS: CPT CODE: [id number] XR CHEST 1V 39901 EXAM: - XR CHEST 1V CLINICAL HISTORY: S/P ICD TECHNIQUE: Single frontal view. COMPARISON: Chest radiograph 06/02/2021, 06/01/2021 LOCATION: H65 FINDINGS: Sternotomy wires and mediastinal surgical clips are present. Left chest wall 3-lead defibrillator. The trachea appears normal. Cardiac silhouette is mildly enlarged. Moderate vascular congestion and mild diffuse central pulmonary edema. Suspect traceleft pleural effusion. The right costophrenic angle is nonvisualized. Visualized soft tissues and osseous structures are grossly unremarkable. IMPRESSION: Cardiomegaly with signs of moderate vascular congestion, mild pulmonary edema, and suspect trace left pleural effusion. at 2028 Reported and signed by: Morgan Felix MD CC: Noni Marquez MD; Ruiz Bhatti Technologist: Belinda MARIE ARRT Transcrpt Date/Tm/Trnsp: 10/12/2022 (2028) [id number] Orig Print D/T: S: 10/12/2022 (2031) [facility] NAME: COLE JEFFREY [address] PHYS: [place] [address] : 1940 AGE: 82 SEX: M LOC: Z.348 A PHONE #: [phone] EXAM DATE: 10/12/2022 STATUS: ADM IN FAX #: [phone] RADIOLOGY NO: PAGE 1 Signed ReportCBC W/AUTO [id number] 13:19:00 Test Item Value Reference Range Interpretation Comments WHITE BLOOD CELL (test code = 6.9 K/MM3 3.8-9.8 N WBC) RED BLOOD CELL (test code = 4.05 M/MM3 3.95-5.67 N RBC) HEMOGLOBIN (test code = HGB) 8.7 G/DL 12.4-16.7 L HEMATOCRIT (test code = HCT) 28.3 % 35.9-49.5 L MEAN CELL VOLUME (test code = 70 fL 81.7-96.1 L MCV) MEAN CELL HGB (test code = MCH) 21.5 pg 27.6-33.2 L MEAN CELL HGB CONCETRATION 30.7 % 32.9-35.5 L (test code = MCHC) RED CELL DISTRIBUTION WIDTH 20.6 % 12.1-15.2 H (test code = RDW) PLATELET COUNT (test code = 297 K/MM3 129-368 N PLT) MEAN PLATELET VOLUME (test code 9.4 fl 7.4-10.4 N = MPV) NEUTROPHIL % (test code = NT%) 57.3 % 43-75 N IMMATURE GRANULOCYTE % (test 0.3 % 0.0-2.0 N code = IG%) LYMPHOCYTE % (test code = LY%) 25.0 % 14-44 N MONOCYTE % (test code = MO%) 13.1 % 4-13 H EOSINOPHIL % (test code = EO%) 3.6 % 0-6 N BASOPHIL % (test code = BA%) 0.7 % 0-2 N NUCLEATED RBC % (test code = 0.0 % 0-1.0 N NRBC%) NEUTROPHIL # (test code = NT#) 3.94 [...] = 0.00 K/mm3 0.0-0.1 N NRBC#) DIFFERENTIAL [id number] 13:19:00 Test Item Value Reference Range Interpretation [...] (test code = DB) FEW NONE PROTHROMBIN [id number] 11:44:00 Test Item Value Reference Range Interpretation [...] myocar dial infarction. 2.0 - 3.0 3. Technical Coordinator al prosthesis hear t valves, recurre nt systemic emboli sm. 3.0 - 4.5 PTT [id number] 11:44:00 Test Item Value Reference Range Interpretation Comments PTT ACTIVATED (test code = APTT) 38.3 SECONDS 26.2-35.4 H BASIC METABOLIC [id number] 11:35:00 Test Item Value Reference Range Interpretation [...] the recommended for sho for GFRby the Natio nal Kidney Foundati on for Adults.The GFR will not calculate if th e sex is unknown or if thepatient's ag e is <18 years. CREATININE (test 1.00 MG/DL 0.66-1.25 N code = CREAT) CALCIUM (test code = 9.0 MG/DL 8.4-10.2 N CA) [id number] 11:35:00 Test Item Value Reference Range Interpretation Comments MAGNESIUM (test code = MAG) 2.2 MG/DL 1.6-2.3 N PROTHROMBIN [id number] 06:57:00 Test Item Value Reference Range Interpretation [...] (to prevent recurrent infar ct). THROMBOPLASTIN TIME [id number] 06:57:00 Test Item Value Reference Range Interpretation Comments THROMBOPLASTIN TIME PARTIAL 34.9 SECONDS 26-35 N (test code = PTT) COMPREHENSIVE METABOLIC [id number] 06:50:00 Test Item Value Reference Range Interpretation [...] . [Automated mess age] The system which Comunitee nerated this result tra nsmitted reference range : 0-. The reference range was not used to interpr et this result as normal/abnormal . HDL CHOLESTEROL 64 MG/DL 40-59 H (test code = HDL) NON-HDL CHOLESTEROL 72 mg/dL <130 (test code = NHDL) LIPOPROTEIN LDL 70 MG/DL 0-129 N <100 OPTIMAL 100 - 129 (test code = LDL) NEAR OPTIM AL/ABOVE [id number] - 15 9 [id number] - 189 HIGH>OR= 190 VE RY HIGHNOTE THAT G UIDELINES ARE PROVIDED BY NATIONAL CHOLESTEROLEDUC ATION PROGRAM ADULT T REATMENT PANEL III LDL/HDL (test code 1.09 Ratio See_Comment L [Automat ed message] The = LDL/HDL) system which Comunitee nerated this result tra nsmitted reference range : 1.48-3.22 Avg. The reference range was not used to interpr et this result as normal/abnormal . [id number] 06:50:00 Test Item Value Reference Range Interpretation Comments MAGNESIUM (test code = MAG) 2.1 MG/DL 1.8-2.4 N COVID 19 INHOUSE [id number] 06:49:00 Test Item Value Reference Range Interpretation Comments COVID 19 INHOUSE AG NEGATIVE Negative Per manu facturer, (test code = negative result s should [id number]) be treated aspr esumptive and, if inconsi [...] symptoms co nsistent with COVID-19. CBC W/AUTO [id number] 06:38:00 Test Item Value Reference Range Interpretation [...] CRITERIA = MDIFF) POCT URINALYSIS W SPECIFIC [id number] 15:35:00 Test Item Value Reference Range Interpretation [...] POCT U APPEAR (test code = 3267) [facility] - Urine [...] nitrite (test code = negative neg nitrite) [facility] [id number] 00:00:00resultN-TERMINAL PRO-BNP 2022-03-26 05:09:42 Test Item Value Reference Range Interpretation Comments NT-proBNP (test code 2360 pg/mL See_Comment H [Autom ated = 2428640528) message] The system which generated this result transmitted reference range : <=450. The reference range was not used to interpret this result as normal/abnormal . ALANNA (test code = ALANNA) Biotin has been reported to cause a negative bias, interpret results relative to patient's use of biotin. Lab Interpretation Abnormal (test code = 64993-7) [facility]OLIC PANEL (50247)2022-03-26 05:01:41 Test Item Value Reference Range Interpretation Comments NA (test code = 135 mmol/L 135-145 4699293328) K (test code = 4.3 mmol/L 3.5-5 1620022851) CL (test code = 95 mmol/L 98-108 L 8085513547) CO2 TOTAL (test code = 30 mmol/L 23-31 6038407888) AGAP (test code = 2-16 9983709446) BUN (test code = 21 mg/dL 7-23 9623602991) GLUCOSE (test code = 106 mg/dL 70-110 6148359544) CREATININE (test code = 1.29 mg/dL 0.6-1.25 H 7905015316) TOTAL BILI (test code = 0.6 mg/dL 0.1-1.2 3081270743) CALCIUM (test code = 9.1 mg/dL 8.6-10.6 7674683430) T PROTEIN (test code = 6.4 g/dL 6.3-8.2 5156290357) ALBUMIN (test code = 4.2 g/dL 3.5-5 8636946727) ALK PHOS (test code = 66 U/L 34-122 5033679306) ALTv (test code = 16 U/L 5-50 1742-6) AST(SGOT) (test code = 20 U/L 13-40 0666555215) eGFR (test code = mL/min/1.73m2 6497011980) LAANNA (test code = ALANNA) Association of Glomerular [...] tests). Lab Interpretation Abnormal (test code = 23966-0) [facility] WITH [id number] 04:22:19 Test Item Value Reference Range Interpretation Comments WBC (test code = See_Comment [Automated 2390-2) message] The sy stem which generated this [...] RDW-SD (test code = 48.1 fL 38.5-51.6 49729-9) RDW-CV (test code = 17.9 % 12.1-15.4 H 788-0) PLT (test code = See_Comment [Automated 777-3) message] The sy stem which generated this result transmitted reference range : 150 - 328 10*3/ ?L. The reference r dori was not used to interpret this result as normal/abnormal . MPV (test code = 10.3 fL 9.8-13 91537-5) NRBC/100 WBC (test See_Comment [Automat ed code = 0342604374) message] The system which generated this result transmitted reference range : 0.0 - 10.0 /100 WBCs. The refer ence range was not u sed to interpret th is result as normal/abnormal . NRBC x10^3 (test code See_Comment [Auto mated = 5991928168) message] The s ystem which generated this result transmitted reference range : 10*3/?L. The reference range was not used to interpret this result as normal/abnormal . GRAN MAT (NEUT) % 64.3 % (test code = 770-8) IMM GRAN % (test code 0.30 % = 0106186454) LYMPH % (test code = 18.4 % 736-9) MONO % (test code = 12.8 % 5905-5) EOS % (test code = 3.5 % 713-8) BASO % (test code = 0.7 % 706-2) GRAN MAT x10^3(ANC) 5.83 10*3/uL 1.99-6.95 (test code = 6234277554) IMM GRAN x10^3 (test 0.03 10*3/uL 0-0.06 code = 3992916218) LYMPH x10^3 (test code 1.67 10*3/uL 1.09-3.23 = 731-0) MONO x10^3 (test code 1.16 10*3/uL 0.36-1.02 H = 742-7) EOS x10^3 (test code = 0.32 10*3/uL 0.06-0.53 711-2) BASO x10^3 (test code 0.06 10*3/uL 0.01-0.09 = 704-7) Lab Interpretation Abnormal (test code = 99635-5) [facility] CenterB[facility] identified [facility] by Culture 2022-02-19 00:00:00 Test Item Value Reference Range Interpretation Comments Bacteria identified in Urine by see note Culture (test code = 630-4) [facility] URINALYSIS W SPECIFIC [id number] 22:32:00 Test Item Value Reference Range Interpretation Comments POCT U SP GRAV (test code = 1.010 mg/dl 1.005-1.025 3255) POCT PH U (test code = 3254) [...] U UROBILI (test code = norm 0.2-1 3260) POCT U BILI (test code = neg Negative - Negative 3261) POCT U BLD (test code = 3257) Negative - Negative POCT U COLOR (test code = yellow 3266) POCT U APPEAR (test code = cloudy 3267) Lab Interpretation (test code Abnormal = 73344-9) [facility] CenterHemoglobin A1c measurement device panel 2021-10-30 12:34:57 Test Item Value Reference Range Interpretation Comments Hemoglobin A1C Fingerstick: (test code 5.9 = Hemoglobin A1C Fingerstick:) [facility] in Capillary [id number] 12:34:48 Test Item Value Reference Range Interpretation Comments Blood Glucose: mg/dl (test code = Blood 122 Glucose: mg/dl) [facility]O [id number] 11:35:00 Test Item Value Reference Range Interpretation [...] = 0.00 K/mm3 0.0-0.1 N NRBC#) DIFFERENTIAL [id number] 11:35:00 Test Item Value Reference Range Interpretation [...] code = OVAL) FEW NONE BASIC METABOLIC [id number] 11:03:00 Test Item Value Reference Range Interpretation [...] code = 8.7 MG/DL 8.4-10.2 N CA) [id number] 11:03:00 Test Item Value Reference Range Interpretation Comments MAGNESIUM (test code = MAG) 1.9 MG/DL 1.6-2.3 N PROTHROMBIN [id number] 10:48:00 Test Item Value Reference Range Interpretation [...] myocar dial infarction. 2.0 - 3.0 3. Mechani leta prosthesis hear t valves, recurre nt systemic emboli sm. 3.0 - 4.5 PTT [id number] 10:48:00 Test Item Value Reference Range Interpretation Comments PTT ACTIVATED (test code = APTT) 44.1 SECONDS 26.2-35.4 H COVID 19 Asymptomatic IH [id number] 09:40:00 Test Item Value Reference Range Interpretation [...] in the sample." Hemoglobin A1c measurement device [id number] 16:51:43 Test Item Value Reference Range Interpretation Comments Hemoglobin A1C Fingerstick: (test code 6.1 = Hemoglobin A1C Fingerstick:) [facility] [[facility]/volume] in Capillary [id number] 16:31:45 Test Item Value Reference Range Interpretation Comments Blood Glucose: mg/dl (test code = Blood 146 Glucose: mg/dl) [facility] [id number] 15:35:00 Test Item Value Reference Range Interpretation Comments GLUCOSE BEDSIDE TESTING (test code = 69 MG/DL 60-99 N GLUBED) GLUCOSE BEDSIDE [id number] 11:19:00 Test Item Value Reference Range Interpretation Comments GLUCOSE BEDSIDE TESTING (test code 105 MG/DL 60-99 H = GLUBED) - XR CHEST [id number] 08:24:00 [facility] : 1940 Sex: M Patient Name: COLE JEFFREY Unit No: [id number] EXAMS: CPT CODE: [id number] XR CHEST 1V 83243 C3TIME OF STUDY: 06/02/2021 6:00 AM REASON FOR [...] by: Gabo Toth MD CC: Noni Marquez MDTechnologist: Rebecca Quinonez RT(R) Transcrpt Date/Tm/Trnsp: 06/02/2021 (08) UrmilaSI1 Orig Print D/T: S: 06/02/2021 (08) [facility] NAME: COLE JEFFREY [address] PHYS: [place] [address] : 1940 AGE: 81 SEX: M LOC: Z.350 A PHONE#: [phone] EXAM DATE: 06/02/2021 STATUS: ADM IN FAX #: [phone] RADIOLOGY NO: PAGE 1 Signed ReportGLUCOSE BEDSIDE [id number] 07:10:00 Test Item Value Reference Range Interpretation Comments GLUCOSE BEDSIDE TESTING (test code 109 MG/DL 60-99 H = GLUBED) GLUCOSE BEDSIDE [id number] 23:58:00 Test Item Value Reference Range Interpretation Comments GLUCOSE BEDSIDE TESTING (test code 189 MG/DL 60-99 H = GLUBED) - XR CHEST [id number] 20:42:00 [facility] : 1940 Sex: M Patient Name: COLE JEFFREY Unit No: [id number] EXAMS: CPT CODE: [id number] XR CHEST 1V 98545 EXAM: - XR CHEST 1V INDICATION: S/P [...] Onelia Galloway RT(R) Transcrpt Date/Tm/Trnsp: 06/01/2021 (2041) tSURESHR.AH26 Orig Print D/T: S: 06/01/2021 (2044) [facility] NAME: COLE JEFFREY [address] PHYS: [place] [address] : 1940 AGE: 81 SEX: M LOC: Z.350 A PHONE #: [phone] EXAM DATE: 06/01/2021 STATUS: ADM IN FAX #: [phone] RADIOLOGY NO: PAGE 1 Signed ReportGLUCOSE BEDSIDE [id number] 20:28:00 Test Item Value Reference Range Interpretation Comments GLUCOSE BEDSIDE TESTING (test code 130 MG/DL 60-99 H = GLUBED) GLUCOSE BEDSIDE [id number] 19:15:00 Test Item Value Reference Range Interpretation Comments GLUCOSE BEDSIDE TESTING (test code = 71 MG/DL 60-99 N GLUBED) GLUCOSE BEDSIDE [id number] 16:53:00 Test Item Value Reference Range Interpretation Comments GLUCOSE BEDSIDE TESTING (test code = 97 MG/DL 60-99 N GLUBED) COVID 19 Asymptomatic IH [id number] 16:20:00 Test Item Value Reference Range Interpretation [...] in the sample." Spec Comments: PRE-OPBASIC METABOLIC [id number] 16:06:00 Test Item Value Reference Range Interpretation [...] = 8.8 MG/DL 8.4-10.2 N CA) PROTHROMBIN [id number] 16:04:00 Test Item Value Reference Range Interpretation [...] dial infarction. 2. 0 - 3.0 3. Technical Coordinator al prosthesis hear t valves, recurre nt systemic emboli sm. 3.0 - 4.5 PTT [id number] 16:04:00 Test Item Value Reference Range Interpretation Comments PTT ACTIVATED (test code = APTT) 34.6 SECONDS 25.1-36.5 CBC W/AUTO [id number] 15:53:00 Test Item Value Reference Range Interpretation [...] K/mm3 0.0-0.1 N NRBC#) - XR CHEST [id number] 13:00:00 [facility] : 1940 Sex: M Patient Name: COLE JEFFREY Unit No: [id number] EXAMS: CPT CODE: [id number] XR CHEST 1V 53513 EXAMINATION: - XR CHEST 1V. LOCATION: . HISTORY: PRE-OP. COMPARISON: Radiograph dated 05/28/2021. TECHNIQUE: [...] (1300) t.CLARER.PR7 Orig Print D/T: S: 06/01/2021 (5426) [facility] NAME: COLE JEFFREY [address] PHYS: [place] [address] : 1940 AGE: 81 SEX: M LOC: ZDorethaSRG PHONE #: [phone] EXAM DATE: 06/01/2021 STATUS: [facility] [place] #:[phone] RADIOLOGY NO: PAGE 1 Signed Report- XR CHEST 2 V 2021-05-28 16:44:00 [facility] : 1940 Sex: M Patient Name: COLE STOREY Unit No: [id number] EXAMS: CPT CODE: [id number] XR CHEST 2 V 88163 B2 EXAM: - XR CHEST 2 V [...] KAREL Reid, RT(R) Transcrpt Date/Tm/Trnsp: 05/28/2021 (1643) UrmilaVB7 Orig Print D/T: S: 05/28/2021 (7237) [facility] NAME: COLE STOREY [address] PHYS: [place] [address] : 1940 AGE: 81 SEX: M LOC: GAGE PHONE #: [phone] EXAM DATE: 05/28/2021 STATUS: SHMUEL MELENDEZ FAX #: [phone] RADIOLOGY NO: PAGE 1 Signed ReportGLUCOSE BEDSIDE [id number] 06:29:00 Test Item Value Reference Range Interpretation Comments GLUCOSE BEDSIDE TESTING (test code 127 MG/DL 60-99 H = GLUBED) GLUCOSE BEDSIDE [id number] 20:00:00 Test Item Value Reference Range Interpretation Comments GLUCOSE BEDSIDE TESTING (test code 122 MG/DL 60-99 H = GLUBED) GLUCOSE BEDSIDE [id number] 16:28:00 Test Item Value Reference Range Interpretation Comments GLUCOSE BEDSIDE TESTING (test code 167 MG/DL 60-99 H = GLUBED) GLUCOSE BEDSIDE [id number] 11:44:00 Test Item Value Reference Range Interpretation Comments GLUCOSE BEDSIDE TESTING (test code 151 MG/DL 60-99 H = GLUBED) GLUCOSE BEDSIDE [id number] 06:22:00 Test Item Value Reference Range Interpretation Comments GLUCOSE BEDSIDE TESTING (test code 122 MG/DL 60-99 H = GLUBED) PROTHROMBIN [id number] 05:23:00 Test Item Value Reference Range Interpretation [...] myocar dial infarction. 2.0 - 3.0 3. Technical Coordinator al prosthesis hear t valves, recurre nt systemic emboli sm. 3.0 - 4.5 GLUCOSE BEDSIDE [id number] 19:43:00 Test Item Value Reference Range Interpretation Comments GLUCOSE BEDSIDE TESTING (test code 124 MG/DL 60-99 H = GLUBED) GLUCOSE BEDSIDE [id number] 15:51:00 Test Item Value Reference Range Interpretation Comments GLUCOSE BEDSIDE TESTING (test code 140 MG/DL 60-99 H = GLUBED) GLUCOSE BEDSIDE [id number] 11:46:00 Test Item Value Reference Range Interpretation Comments GLUCOSE BEDSIDE TESTING (test code 157 MG/DL 60-99 H = GLUBED) GLUCOSE BEDSIDE [id number] 06:11:00 Test Item Value Reference Range Interpretation Comments GLUCOSE BEDSIDE TESTING (test code 106 MG/DL 60-99 H = GLUBED) PROTHROMBIN [id number] 05:38:00 Test Item Value Reference Range Interpretation [...] myocar dial infarction. 2.0 - 3.0 3. Technical Coordinator al prosthesis hear t valves, recurre nt systemic emboli sm. 3.0 - 4.5 GLUCOSE BEDSIDE [id number] 20:36:00 Test Item Value Reference Range Interpretation Comments GLUCOSE BEDSIDE TESTING (test code 115 MG/DL 60-99 H = GLUBED) GLUCOSE BEDSIDE [id number] 16:42:00 Test Item Value Reference Range Interpretation Comments GLUCOSE BEDSIDE TESTING (test code 156 MG/DL 60-99 H = GLUBED) GLUCOSE BEDSIDE [id number] 11:49:00 Test Item Value Reference Range Interpretation Comments GLUCOSE BEDSIDE TESTING (test code 145 MG/DL 60-99 H = GLUBED) GLUCOSE BEDSIDE [id number] 07:15:00 Test Item Value Reference Range Interpretation Comments GLUCOSE BEDSIDE TESTING (test code 120 MG/DL 60-99 H = GLUBED) BASIC METABOLIC [id number] 06:10:00 Test Item Value Reference Range Interpretation [...] = 7.8 MG/DL 8.4-10.2 L CA) PROTHROMBIN [id number] 05:55:00 Test Item Value Reference Range Interpretation [...] myocar dial infarction. 2.0 - 3.0 3. Technical Coordinator al prosthesis hear t valves, recurre nt systemic emboli sm. 3.0 - 4.5 CBC W/AUTO [id number] 05:43:00 Test Item Value Reference Range Interpretation [...] 0.00 K/mm3 0.0-0.1 N NRBC#) GLUCOSE BEDSIDE [id number] 20:20:00 Test Item Value Reference Range Interpretation Comments GLUCOSE BEDSIDE TESTING (test code 153 MG/DL 60-99 H = GLUBED) GLUCOSE BEDSIDE [id number] 16:50:00 Test Item Value Reference Range Interpretation Comments GLUCOSE BEDSIDE TESTING (test code 143 MG/DL 60-99 H = GLUBED) GLUCOSE BEDSIDE [id number] 10:54:00 Test Item Value Reference Range Interpretation Comments GLUCOSE BEDSIDE TESTING (test code 158 MG/DL 60-99 H = GLUBED) GLUCOSE BEDSIDE [id number] 06:13:00 Test Item Value Reference Range Interpretation Comments GLUCOSE BEDSIDE TESTING (test code 113 MG/DL 60-99 H = GLUBED) PROTHROMBIN [id number] 05:35:00 Test Item Value Reference Range Interpretation [...] myocar dial infarction. 2.0 - 3.0 3. Technical Coordinator al prosthesis hear t valves, recurre nt systemic emboli sm. 3.0 - 4.5 GLUCOSE BEDSIDE [id number] 19:54:00 Test Item Value Reference Range Interpretation Comments GLUCOSE BEDSIDE TESTING (test code 126 MG/DL 60-99 H = GLUBED) GLUCOSE BEDSIDE [id number] 16:58:00 Test Item Value Reference Range Interpretation Comments GLUCOSE BEDSIDE TESTING (test code 141 MG/DL 60-99 H = GLUBED) GLUCOSE BEDSIDE [id number] 12:09:00 Test Item Value Reference Range Interpretation Comments GLUCOSE BEDSIDE TESTING (test code 184 MG/DL 60-99 H = GLUBED) GLUCOSE BEDSIDE [id number] 05:59:00 Test Item Value Reference Range Interpretation Comments GLUCOSE BEDSIDE TESTING (test code = 99 MG/DL 60-99 N GLUBED) PROTHROMBIN [id number] 05:25:00 Test Item Value Reference Range Interpretation [...] dial infarction. 2. 0 - 3.0 3. Technical Coordinator al prosthesis hear t valves, recurre nt systemic emboli sm. 3.0 - 4.5 Comments to Primary Care Sales Representative: YGLUCOSE BEDSIDE [id number] 19:46:00 Test Item Value Reference Range Interpretation Comments GLUCOSE BEDSIDE TESTING (test code 140 MG/DL 60-99 H = GLUBED) GLUCOSE BEDSIDE [id number] 16:59:00 Test Item Value Reference Range Interpretation Comments GLUCOSE BEDSIDE TESTING (test code 173 MG/DL 60-99 H = GLUBED) GLUCOSE BEDSIDE [id number] 11:34:00 Test Item Value Reference Range Interpretation Comments GLUCOSE BEDSIDE TESTING (test code 150 MG/DL 60-99 H = GLUBED) PROTHROMBIN [id number] 05:57:00 Test Item Value Reference Range Interpretation [...] myocar dial infarction. 2.0 - 3.0 3. Technical Coordinator al prosthesis hear t valves, recurre nt systemic emboli sm. 3.0 - 4.5 GLUCOSE BEDSIDE [id number] 05:48:00 Test Item Value Reference Range Interpretation Comments GLUCOSE BEDSIDE TESTING (test code = 87 MG/DL 60-99 N GLUBED) GLUCOSE BEDSIDE [id number] 20:42:00 Test Item Value Reference Range Interpretation Comments GLUCOSE BEDSIDE TESTING (test code = 95 MG/DL 60-99 N GLUBED) GLUCOSE BEDSIDE [id number] 16:22:00 Test Item Value Reference Range Interpretation Comments GLUCOSE BEDSIDE TESTING (test code 110 MG/DL 60-99 H = GLUBED) GLUCOSE BEDSIDE [id number] 11:23:00 Test Item Value Reference Range Interpretation Comments GLUCOSE BEDSIDE TESTING (test code 101 MG/DL 60-99 H = GLUBED) GLUCOSE BEDSIDE [id number] 06:34:00 Test Item Value Reference Range Interpretation Comments GLUCOSE BEDSIDE TESTING (test code = 66 MG/DL 60-99 N GLUBED) PROTHROMBIN [id number] 05:54:00 Test Item Value Reference Range Interpretation [...] dial infarction. 2. 0 - 3.0 3. Technical Coordinator al prosthesis hear t valves, recurre nt systemic emboli sm. 3.0 - 4.5 BASIC METABOLIC [id number] 05:45:00 Test Item Value Reference Range Interpretation [...] 8.0 MG/DL 8.4-10.2 L CA) CBC W/AUTO [id number] 05:36:00 Test Item Value Reference Range Interpretation [...] 0.00 K/mm3 0.0-0.1 N NRBC#) GLUCOSE BEDSIDE [id number] 19:46:00 Test Item Value Reference Range Interpretation Comments GLUCOSE BEDSIDE TESTING (test 70 MG/DL 60-99 N Notified Nurse~ code = GLUBED) GLUCOSE BEDSIDE [id number] 15:58:00 Test Item Value Reference Range Interpretation Comments GLUCOSE BEDSIDE TESTING (test 84 MG/DL 60-99 N Notified Nurse~ code = GLUBED) GLUCOSE BEDSIDE [id number] 11:58:00 Test Item Value Reference Range Interpretation Comments GLUCOSE BEDSIDE TESTING (test code = 79 MG/DL 60-99 N GLUBED) GLUCOSE BEDSIDE [id number] 06:24:00 Test Item Value Reference Range Interpretation Comments GLUCOSE BEDSIDE TESTING (test code = 70 MG/DL 60-99 N GLUBED) PROTHROMBIN [id number] 04:18:00 Test Item Value Reference Range Interpretation [...] dial infarction. 2. 0 - 3.0 3. Technical Coordinator al prosthesis hear t valves, recurre nt systemic emboli sm. 3.0 - 4.5 GLUCOSE BEDSIDE [id number] 20:30:00 Test Item Value Reference Range Interpretation Comments GLUCOSE BEDSIDE TESTING (test code = 73 MG/DL 60-99 N GLUBED) GLUCOSE BEDSIDE [id number] 16:04:00 Test Item Value Reference Range Interpretation Comments GLUCOSE BEDSIDE TESTING (test code 138 MG/DL 60-99 H = GLUBED) GLUCOSE BEDSIDE [id number] 11:10:00 Test Item Value Reference Range Interpretation Comments GLUCOSE BEDSIDE TESTING (test code 141 MG/DL 60-99 H = GLUBED) PROTHROMBIN [id number] 10:19:00 Test Item Value Reference Range Interpretation [...] myocar dial infarction. 2.0 - 3.0 3. Technical Coordinator al prosthesis hear t valves, recurr ent systemic emboli sm. 3.0 - 4.5 GLUCOSE BEDSIDE [id number] 06:29:00 Test Item Value Reference Range Interpretation Comments GLUCOSE BEDSIDE TESTING (test code 106 MG/DL 60-99 H = GLUBED) GLUCOSE BEDSIDE [id number] 20:59:00 Test Item Value Reference Range Interpretation Comments GLUCOSE BEDSIDE TESTING (test code 129 MG/DL 60-99 H = GLUBED) GLUCOSE BEDSIDE [id number] 16:08:00 Test Item Value Reference Range Interpretation Comments GLUCOSE BEDSIDE TESTING (test code 138 MG/DL 60-99 H = GLUBED) GLUCOSE BEDSIDE [id number] 12:00:00 Test Item Value Reference Range Interpretation Comments GLUCOSE BEDSIDE TESTING (test code 165 MG/DL 60-99 H = GLUBED) GLUCOSE BEDSIDE [id number] 06:00:00 Test Item Value Reference Range Interpretation Comments GLUCOSE BEDSIDE TESTING (test code 135 MG/DL 60-99 H = GLUBED) PROTHROMBIN [id number] 05:06:00 Test Item Value Reference Range Interpretation [...] dial infarction. 2. 0 - 3.0 3. Technical Coordinator al prosthesis hear t valves, recurre nt systemic emboli sm. 3.0 - 4.5 GLUCOSE BEDSIDE [id number] 22:19:00 Test Item Value Reference Range Interpretation Comments GLUCOSE BEDSIDE TESTING (test code 109 MG/DL 60-99 H = GLUBED) GLUCOSE BEDSIDE [id number] 17:50:00 Test Item Value Reference Range Interpretation Comments GLUCOSE BEDSIDE TESTING (test code 181 MG/DL 60-99 H = GLUBED) COVID 19 Asymptomatic IH [id number] 16:07:00 Test Item Value Reference Range Interpretation [...] virus (antigen) in the sample." GLUCOSE BEDSIDE [id number] 12:31:00 Test Item Value Reference Range Interpretation Comments GLUCOSE BEDSIDE TESTING (test code 158 MG/DL 60-99 H = GLUBED) GLUCOSE BEDSIDE [id number] 08:05:00 Test Item Value Reference Range Interpretation Comments GLUCOSE BEDSIDE TESTING (test code 150 MG/DL 60-99 H = GLUBED) PROTHROMBIN [id number] 07:45:00 Test Item Value Reference Range Interpretation [...] myocar dial infarction. 2.0 - 3.0 3. Technical Coordinator al prosthesis hear t valves, recurre nt systemic emboli sm. 3.0 - 4.5 GLUCOSE BEDSIDE [id number] 20:12:00 Test Item Value Reference Range Interpretation Comments GLUCOSE BEDSIDE TESTING (test code 169 MG/DL 60-99 H = GLUBED) GLUCOSE BEDSIDE [id number] 17:34:00 Test Item Value Reference Range Interpretation Comments GLUCOSE BEDSIDE TESTING (test code 163 MG/DL 60-99 H = GLUBED) GLUCOSE BEDSIDE [id number] 16:43:00 Test Item Value Reference Range Interpretation Comments GLUCOSE BEDSIDE TESTING (test code 148 MG/DL 60-99 H = GLUBED) GLUCOSE BEDSIDE [id number] 07:51:00 Test Item Value Reference Range Interpretation Comments GLUCOSE BEDSIDE TESTING (test code 160 MG/DL 60-99 H = GLUBED) BASIC METABOLIC [id number] 05:38:00 Test Item Value Reference Range Interpretation [...] 7.9 MG/DL 8.4-10.2 L CA) CBC W/AUTO [id number] 05:13:00 Test Item Value Reference Range Interpretation [...] 0.00 K/mm3 0.0-0.1 N NRBC#) GLUCOSE BEDSIDE [id number] 20:31:00 Test Item Value Reference Range Interpretation Comments GLUCOSE BEDSIDE TESTING (test code 131 MG/DL 60-99 H = GLUBED) GLUCOSE BEDSIDE [id number] 17:41:00 Test Item Value Reference Range Interpretation Comments GLUCOSE BEDSIDE TESTING (test code 207 MG/DL 60-99 H = GLUBED) GLUCOSE BEDSIDE [id number] 11:29:00 Test Item Value Reference Range Interpretation Comments GLUCOSE BEDSIDE TESTING (test code 199 MG/DL 60-99 H = GLUBED) GLUCOSE BEDSIDE [id number] 08:34:00 Test Item Value Reference Range Interpretation Comments GLUCOSE BEDSIDE TESTING (test code 183 MG/DL 60-99 H = GLUBED) GLUCOSE BEDSIDE [id number] 20:33:00 Test Item Value Reference Range Interpretation Comments GLUCOSE BEDSIDE TESTING (test code 153 MG/DL 60-99 H = GLUBED) GLUCOSE BEDSIDE [id number] 16:33:00 Test Item Value Reference Range Interpretation Comments GLUCOSE BEDSIDE TESTING (test code 180 MG/DL 60-99 H = GLUBED) GLUCOSE BEDSIDE [id number] 12:12:00 Test Item Value Reference Range Interpretation Comments GLUCOSE BEDSIDE TESTING (test code 232 MG/DL 60-99 H = GLUBED) GLUCOSE BEDSIDE [id number] 07:35:00 Test Item Value Reference Range Interpretation Comments GLUCOSE BEDSIDE TESTING (test code 176 MG/DL 60-99 H = GLUBED) BASIC METABOLIC [id number] 05:52:00 Test Item Value Reference Range Interpretation [...] code = 7.7 MG/DL 8.4-10.2 L CA) [id number] 05:52:00 Test Item Value Reference Range Interpretation Comments MAGNESIUM (test code = MAG) 2.1 MG/DL 1.6-2.3 N CBC W/AUTO [id number] 05:42:00 Test Item Value Reference Range Interpretation [...] 0.00 K/mm3 0.0-0.1 N NRBC#) GLUCOSE BEDSIDE [id number] 21:00:00 Test Item Value Reference Range Interpretation Comments GLUCOSE BEDSIDE TESTING (test code 193 MG/DL 60-99 H = GLUBED) GLUCOSE BEDSIDE [id number] 17:25:00 Test Item Value Reference Range Interpretation Comments GLUCOSE BEDSIDE TESTING (test code 141 MG/DL 60-99 H = GLUBED) GLUCOSE BEDSIDE [id number] 12:25:00 Test Item Value Reference Range Interpretation Comments GLUCOSE BEDSIDE TESTING (test code 172 MG/DL 60-99 H = GLUBED) GLUCOSE BEDSIDE [id number] 07:16:00 Test Item Value Reference Range Interpretation Comments GLUCOSE BEDSIDE TESTING (test code 169 MG/DL 60-99 H = GLUBED) [id number] 04:58:00 Test Item Value Reference Range Interpretation Comments DIGOXIN (test code = DIG) 0.7 NG/ML 0.8-2.0 L COMPREHENSIVE METABOLIC [id number] 04:54:00 Test Item Value Reference Range Interpretation [...] Product Total Protein:======= Eltrombopag Max Observed Av gretta Moscoso on Concentration Concentration== ==== 2.5 mg/dl [...] PHOSPHATASE (test code = ALKP) CBC W/AUTO [id number] 04:51:00 Test Item Value Reference Range Interpretation [...] 0.02 K/mm3 0.0-0.1 N NRBC#) GLUCOSE BEDSIDE [id number] 23:43:00 Test Item Value Reference Range Interpretation Comments GLUCOSE BEDSIDE TESTING (test code 165 MG/DL 60-99 H = GLUBED) GLUCOSE BEDSIDE [id number] 17:32:00 Test Item Value Reference Range Interpretation Comments GLUCOSE BEDSIDE TESTING (test code 133 MG/DL 60-99 H = GLUBED) GLUCOSE BEDSIDE [id number] 17:24:00 Test Item Value Reference Range Interpretation Comments GLUCOSE BEDSIDE TESTING (test code 264 MG/DL 60-99 H = GLUBED) BASIC METABOLIC [id number] 09:21:00 Test Item Value Reference Range Interpretation [...] 7.5 MG/DL 8.4-10.2 L CA) HEPATIC FUNCTION [id number] 09:21:00 Test Item Value Reference Range Interpretation Comments TOTAL PROTEIN 5.2 G/DL 6.2-7.6 L Ortho Clinical Diagnostic (test code = has made us monique re of PROT) newinformation regarding the potential i nterference ofEltrombopag ( a bone marrow stimulan t used to treatthrombocyt onmenia and aplastic anemia ) with specific assays on the [employer]00 of which Total Protein is one [...] PHOSPHATASE (test code = ALKP) GLUCOSE BEDSIDE [id number] 07:58:00 Test Item Value Reference Range Interpretation Comments GLUCOSE BEDSIDE TESTING (test code 188 MG/DL 60-99 H = GLUBED) LACTIC [id number] 05:26:00 Test Item Value Reference Range Interpretation Comments LACTIC ACID (test code = LACT) 0.9 MMOL/L 0.7-2.1 N CBC W/AUTO [id number] 05:23:00 Test Item Value Reference Range Interpretation [...] 0.00 K/mm3 0.0-0.1 N NRBC#) GLUCOSE BEDSIDE [id number] 21:14:00 Test Item Value Reference Range Interpretation Comments GLUCOSE BEDSIDE TESTING (test code 178 MG/DL 60-99 H = GLUBED) GLUCOSE BEDSIDE [id number] 17:54:00 Test Item Value Reference Range Interpretation Comments GLUCOSE BEDSIDE TESTING (test code 184 MG/DL 60-99 H = GLUBED) GLUCOSE BEDSIDE [id number] 11:30:00 Test Item Value Reference Range Interpretation Comments GLUCOSE BEDSIDE TESTING (test code 211 MG/DL 60-99 H = GLUBED) - XR CHEST [id number] 08:20:00 [facility] 1940 Sex: M Patient Name: COLE JEFFREY Unit No: [id number] EXAMS: CPT CODE: [id number] XR CHEST 1V 55658 HISTORY: Status post CABG Comparison April 03, 2021 Location code: B2 FINDINGS: Frontal view of thechest demonstrates an enlarged cardiomediastinal silhouette, with central venous congestion. The trachea is midline. Mild layering left effusion with atelectasis. No pneumothorax. Right subclavian mo ter in good position. The bones are intact. Median sternotomy wires. IMPRESSION: Mild cardiomegaly and central venous congestion with a layering left effusion and atelectasis at 0820 Reported and signed by: Glen Garay M.D. CC: Noni Marquez MD; Aisha Lucas MD Technologist: Araceli Patrick, RT(R) Transcrpt Date/Tm/Trnsp: 04/04/2021 (08) [email or web address] Orig Print D/T: S: 04/04/2021 (822) [facility] NAME: LAINEYMANJULACOLE [address] PHYS: [place] [address] : 1940 AGE: 81 SEX: M LOC: Z.SI02 A PHONE #: [phone] EXAM DATE: 04/04/2021 STATUS: ADM IN FAX #: [phone] RADIOLOGY NO: PAGE 1 Signed ReportGLUCOSE BEDSIDE [id number] 07:36:00 Test Item Value Reference Range Interpretation Comments GLUCOSE BEDSIDE TESTING (test code 176 MG/DL 60-99 H = GLUBED) GLUCOSE BEDSIDE [id number] 21:45:00 Test Item Value Reference Range Interpretation Comments GLUCOSE BEDSIDE TESTING (test code 184 MG/DL 60-99 H = GLUBED) GLUCOSE BEDSIDE [id number] 17:51:00 Test Item Value Reference Range Interpretation Comments GLUCOSE BEDSIDE TESTING (test code 159 MG/DL 60-99 H = GLUBED) - XR CHEST [id number] 13:23:00 [facility] : 1940 Sex: M Patient Name: COLE JEFFREY Unit No: [id number] EXAMS: CPT CODE: [id number] XR CHEST 1V 15389 EXAMINATION: - XR CHEST 1V. LOCATION: B2. [...] decreased on the right prior exam. Cardiomegaly. Electronically Signed by Javad Mosquera MD on 1at 1323 Reported and signed by: Javad Mosquera MD CC: Noni Marquez MD; Aisha Lucas MD Technologist: Shelton Bhatt (RT) (R) Transcrpt Date/Tm/Trnsp: 04/03/2021 (1323) [email or web address] Orig Print D/T: S: 04/03/2021 (1326) [facility] NAME: COLE JEFFREY [address] PHYS: [place] [address] : 1940 AGE: 81 SEX: M LOC: Z.SI02 A PHONE #: [phone] EXAM DATE: 04/03/2021 STATUS: ADM IN FAX #: [phone] RADIOLOGY NO: PAGE 1 Signed ReportGLUCOSE BEDSIDE [id number] 12:15:00 Test Item Value Reference Range Interpretation Comments GLUCOSE BEDSIDE TESTING (test code 278 MG/DL 60-99 H = GLUBED) HGB [id number] 09:25:00 Test Item Value Reference Range Interpretation Comments HEMOGLOBIN (test code = HGB) 8.2 G/DL 12.4-16.7 L HEMATOCRIT (test code = HCT) 24.8 % 35.9-49.5 L [id number] 09:05:00 Test Item Value Reference Range Interpretation Comments POTASSIUM (test code = K) 4.3 MMOL/L 3.5-5.1 N [id number] 09:05:00 Test Item Value Reference Range Interpretation Comments CALCIUM (test code = CA) 7.8 MG/DL 8.4-10.2 L [id number] 09:05:00 Test Item Value Reference Range Interpretation Comments MAGNESIUM (test code = MAG) 2.4 MG/DL 1.6-2.3 H - XR CHEST [id number] 07:58:00 [facility] : 1940 Sex: M Patient Name: COLE JEFFREY Unit No: [id number] EXAMS: CPT CODE: [id number] XR CHEST 1V 81275 EXAMINATION: Frontal chest radiograph INDICATION: S/P CABG COMPARISON: Previous day LOCATION: S17 FINDINGS/ IMPRESSION: Subclavian catheter terminates at SVC. Unchanged enlarged cardiac silhouette. No significant change in mild bibasilar interstitial edema or pneumonia and trace left pleural effusion. No pneumothorax. at 0758 Reported and signed by: Kwame Calloway MD CC: Noni Marquez MD; Aisha Lucas MD Technologist: Miriam Herman Transcrpt Date/Tm/Trnsp: 04/03/2021 (0758) UrmilaPE1 Orig Print D/T: S: 04/03/2021 (0801) [facility] NAME: COLE JEFFREY [address] PHYS: [place] [address] : 1940GE: 81 SEX: M LOC: Z.SI02 A PHONE #: [phone] EXAM DATE: 04/03/2021 STATUS: ADM IN FAX #: [phone] RADIOLOGY NO: PAGE 1 Signed ReportGLUCOSE BEDSIDE [id number] 07:31:00 Test Item Value Reference Range Interpretation Comments GLUCOSE BEDSIDE TESTING (test code 258 MG/DL 60-99 H = GLUBED) [id number] 00:10:00 Test Item Value Reference Range Interpretation Comments POTASSIUM (test code = K) 4.3 MMOL/L 3.5-5.1 N [id number] 00:10:00 Test Item Value Reference Range Interpretation Comments CALCIUM (test code = CA) 7.4 MG/DL 8.4-10.2 L [id number] 00:10:00 Test Item Value Reference Range Interpretation Comments MAGNESIUM (test code = MAG) 2.4 MG/DL 1.6-2.3 H GLUCOSE BEDSIDE [id number] 20:35:00 Test Item Value Reference Range Interpretation Comments GLUCOSE BEDSIDE TESTING (test code 179 MG/DL 60-99 H = GLUBED) GLUCOSE BEDSIDE [id number] 16:32:00 Test Item Value Reference Range Interpretation Comments GLUCOSE BEDSIDE TESTING (test code 196 MG/DL 60-99 H = GLUBED) GLUCOSE BEDSIDE [id number] 11:12:00 Test Item Value Reference Range Interpretation Comments GLUCOSE BEDSIDE TESTING (test code 184 MG/DL 60-99 H = GLUBED) - XR CHEST [id number] 08:17:00 [facility]ICK : 1940 Sex: M Patient Name: COLE JEFFREY Unit No: [id number] EXAMS: CPT CODE: [id number] XR CHEST 1V 55023 EXAM: CHEST ONE VIEW INDICATION: S/P CABG LOCATION: B2 COMPARISON: April 01, 2021 TECHNIQUE: AP viewof the chest FINDINGS: The right internal jugular catheter has been removed. There is a right central venous catheter in similar position. The heart size is enlarged. There is evidence of prior thoracic surgery. There are diffuse congestive changes bilaterally. There are trace bilateral pleural effusions. No pneumothorax. The osseous structures are normal. IMPRESSION: Cardiomegaly with diffuse congestive changes bilaterally. No pneumothorax. t 0817 Reported and signed by: Eleanor Pablo MD CC: Noni Marquez MD; Aisha Lucas MD Technologist: Miriam Herman Transcrpt Date/Tm/Trnsp: 04/02/2021 (0817) [email or web address] Orig Print D/T: S: 04/02/2021 (0820) [facility] NAME: COLE JEFFREY [address] PHYS: [place] [address] : 1940 AGE: 81 SEX: M LOC: Z.SI02 A PHONE #: [phone] EXAM DATE: 04/02/2021 STATUS: ADM IN FAX #: [phone] RADIOLOGY NO: PAGE 1 Signed ReportBASIC METABOLIC [id number] 08:15:00 Test Item Value Reference Range Interpretation [...] Is this a LINE draw? YCBC W/AUTO [id number] 08:08:00 Test Item Value Reference Range Interpretation [...] 0.00 K/mm3 0.0-0.1 N NRBC#) GLUCOSE BEDSIDE [id number] 08:06:00 Test Item Value Reference Range Interpretation Comments GLUCOSE BEDSIDE TESTING (test code 166 MG/DL 60-99 H = GLUBED) GLUCOSE BEDSIDE [id number] 20:49:00 Test Item Value Reference Range Interpretation Comments GLUCOSE BEDSIDE TESTING (test code 181 MG/DL 60-99 H = GLUBED) GLUCOSE BEDSIDE [id number] 14:21:00 Test Item Value Reference Range Interpretation Comments GLUCOSE BEDSIDE TESTING (test code 124 MG/DL 60-99 H = GLUBED) GLUCOSE BEDSIDE [id number] 11:44:00 Test Item Value Reference Range Interpretation Comments GLUCOSE BEDSIDE TESTING (test code 117 MG/DL 60-99 H = GLUBED) - XR CHEST [id number] 08:26:00 [facility] : 1940 Sex: M Patient Name: COLE JEFFREY VICK Unit No: [id number] EXAMS: CPT CODE: [id number] XR CHEST 1V 70426 REASON FOR EXAM: CABG. COMPARISON: March 31, 2021. Chest, portable single frontal view. The patient has been extubated with the NG tube removed. Right subclavian line and Sparkill-Cyrus catheter in good position. The lungs are [...] field. Cardiomegaly with mild vascular congestion. Location: [facility] at 0826 Reported and signed by: MARCELLO POLLOCK MD CC: Noni Marquez MD; Santana Rust Technologist: Miriam Herman Transcrpt Date/Tm/Trnsp: 04/01/2021 (825) [id number] Print D/T: S: 04/01/2021 (828) [facility] NAME: COLE JEFFREY [address] PHYS: [place] [address] : 1940 AGE: 81 SEX: M LOC: Z.SI02 A PHONE #: [phone] EXAM DATE: 04/01/2021 STATUS: ADM IN FAX #: [phone] RADIOLOGY NO: PAGE 1 Signed ReportGLUCOSE BEDSIDE [id number] 07:50:00 Test Item Value Reference Range Interpretation Comments GLUCOSE BEDSIDE TESTING (test code 180 MG/DL 60-99 H = GLUBED) GLUCOSE BEDSIDE [id number] 06:00:00 Test Item Value Reference Range Interpretation Comments GLUCOSE BEDSIDE TESTING (test code 148 MG/DL 60-99 H = GLUBED) BASIC METABOLIC [id number] 04:42:00 Test Item Value Reference Range Interpretation [...] code = 7.6 MG/DL 8.4-10.2 L CA) [id number] 04:42:00 Test Item Value Reference Range Interpretation Comments MAGNESIUM (test code = MAG) 3.0 MG/DL 1.6-2.3 H CBC W/AUTO [id number] 04:24:00 Test Item Value Reference Range Interpretation [...] 0.00 K/mm3 0.0-0.1 N NRBC#) GLUCOSE BEDSIDE [id number] 04:06:00 Test Item Value Reference Range Interpretation Comments GLUCOSE BEDSIDE TESTING (test code 157 MG/DL 60-99 H = GLUBED) GLUCOSE BEDSIDE [id number] 01:24:00 Test Item Value Reference Range Interpretation Comments GLUCOSE BEDSIDE TESTING (test code 158 MG/DL 60-99 H = GLUBED) GLUCOSE BEDSIDE [id number] 23:16:00 Test Item Value Reference Range Interpretation Comments GLUCOSE BEDSIDE TESTING (test code 163 MG/DL 60-99 H = GLUBED) GLUCOSE BEDSIDE [id number] 22:03:00 Test Item Value Reference Range Interpretation Comments GLUCOSE BEDSIDE TESTING (test code 162 MG/DL 60-99 H = GLUBED) GLUCOSE BEDSIDE [id number] 21:38:00 Test Item Value Reference Range Interpretation Comments GLUCOSE BEDSIDE TESTING (test code 201 MG/DL 60-99 H = GLUBED) GLUCOSE BEDSIDE [id number] 19:19:00 Test Item Value Reference Range Interpretation Comments GLUCOSE BEDSIDE TESTING (test code 205 MG/DL 60-99 H = GLUBED) GLUCOSE BEDSIDE [id number] 18:43:00 Test Item Value Reference Range Interpretation Comments GLUCOSE BEDSIDE TESTING (test code 207 MG/DL 60-99 H = GLUBED) GLUCOSE BEDSIDE [id number] 17:34:00 Test Item Value Reference Range Interpretation Comments GLUCOSE BEDSIDE TESTING (test code 191 MG/DL 60-99 H = GLUBED) PROTHROMBIN [id number] 16:41:00 Test Item Value Reference Range Interpretation [...] myocar dial infarction. 2.0 - 3.0 3. Technical Coordinator al prosthesis hear t valves, recurre nt systemic emboli sm. 3.0 - 4.5 PTT [id number] 16:41:00 Test Item Value Reference Range Interpretation Comments PTT ACTIVATED (test code = APTT) 24.6 SECONDS 25.1-36.5 L GLUCOSE BEDSIDE [id number] 16:31:00 Test Item Value Reference Range Interpretation Comments GLUCOSE BEDSIDE TESTING (test code 192 MG/DL 60-99 H = GLUBED) GLUCOSE BEDSIDE [id number] 16:30:00 Test Item Value Reference Range Interpretation Comments GLUCOSE BEDSIDE TESTING (test code 207 MG/DL 60-99 H = GLUBED) BASIC METABOLIC [id number] 16:25:00 Test Item Value Reference Range Interpretation [...] code = 7.2 MG/DL 8.4-10.2 L CA) [id number] 16:25:00 Test Item Value Reference Range Interpretation Comments MAGNESIUM (test code = MAG) 3.7 MG/DL 1.6-2.3 H CBC W/AUTO [id number] 16:10:00 Test Item Value Reference Range Interpretation [...] 0.00 K/mm3 0.0-0.1 N NRBC#) ARTERIAL BLOOD [id number] 15:50:00 Test Item Value Reference Range Interpretation [...] o and readback by DR. GARVIN by [id number] at 03/31/2021 3:40 :57 PM ABG DELIVERY [...] 0.4-1.5 L = METHGB) - XR CHEST [id number] 15:41:00 [facility] : 1940 Sex: M Patient Name: COLE JEFFREY Unit No: [id number] EXAMS: CPT CODE: [id number] XR CHEST 1V 47962 EXAM: CHEST ONE VIEW INDICATION: S/P CABG LOCATION: B2 COMPARISON: March 30, 2021 TECHNIQUE: AP viewof the chest FINDINGS: Tip of the endotracheal tube is 3.3 cm above the cristhian. The enteric tube tip crosses the diaphragm. The right-sided Sparkill-Cyrus catheter is seen in appropriate position. The [...] Noni Marquez MD; Santana Rust Technologist: Onelia Galloway, RT(R) Transcrpt Date/Tm/Trnsp: 03/31/2021 (1541) 16 Orig Print D/T: S: 03/31/2021 (9791) [facility] NAME: COLE JEFFREY [address] [place] [address] PHYS: [place] [address] : 1940 AGE: 81 SEX: M LOC: [id number] PHONE #: [phone] EXAM DATE: 03/31/2021 STATUS: ADM IN FAX #: [phone] RADIOLOGY NO: PAGE 1 Signed ReportBASIC METABOLIC [id number] 15:24:00 Test Item Value Reference Range Interpretation [...] CA) PLEASE CALL RESULTS TO PHONE #: [phone] STATPROTHROMBIN [id number] 15:09:00 Test Item Value Reference Range Interpretation [...] myocar dial infarction. 2.0 - 3.0 3. Technical Coordinator al prosthesis hear t valves, recurre nt systemic emboli sm. 3.0 - 4.5 PLEASE CALL RESULTS TO PHONE #: [phone] STATPTT [id number] 15:09:00 Test Item Value Reference Range Interpretation Comments PTT ACTIVATED (test code = APTT) 29.9 SECONDS 25.1-36.5 PLEASE CALL RESULTS TO PHONE #: [phone] STATCBC W/AUTO [id number] 14:55:00 Test Item Value Reference Range Interpretation [...] NRBC#) PLEASE CALL RESULTS TO PHONE #: [id number] [facility] ARTERIAL BLOOD [id number] 14:43:00 Test Item Value Reference Range Interpretation Comments POC ARTERIAL BLOOD GAS PH 7.366 7.35-7.45 N (test code = POCPHA) POC ARTERIAL BLOOD GAS PCO2 39.5 mmHg 35.0-45.0 N (test code = NVZXLW8P) POC ARTERIAL BLOOD GAS PO2 550.9 75.0-100.0 HH (test code = RFQOY2P) POC HCO3 ARTERIAL (test 22.6 MMOL/L 20.0-26.0 N code = RXSYGA2E) POC BASE EXCESS (test code -2.6 MMOL/L -3.0-3.0 N = POCBEA) POC O2 SATURATION (test 100.0 % 92.0-98.5 H code = POCO2S) FIO2 (test code = FIO2A) 100 % 21-100 PaO2/FiO2 (test code = 550.90 mm/Hg VJS7WRQ9) SODIUM (test code = NA/ABG) 141 MMOL/L [...] 0.7-2.0 HH = LACTP) POC ARTERIAL BLOOD [id number] 13:41:00 Test Item Value Reference Range Interpretation Comments POC ARTERIAL BLOOD GAS PH 7.377 7.35-7.45 N (test code = POCPHA) POC ARTERIAL BLOOD GAS PCO2 41.9 mmHg 35.0-45.0 N (test code = FXPUER8Z) POC ARTERIAL BLOOD GAS PO2 421.6 75.0-100.0 HH (test code = RYPYG8P) POC HCO3 ARTERIAL (test 24.6 MMOL/L 20.0-26.0 N code = WSQYPQ8A) POC BASE EXCESS (test code -0.6 MMOL/L -3.0-3.0 N = POCBEA) POC O2 SATURATION (test 100.0 % 92.0-98.5 H code = POCO2S) FIO2 (test code = FIO2A) 90 % 21-100 N PaO2/FiO2 (test code = 468.44 mm/Hg ECQ1IDU7) SODIUM (test code = NA/ABG) 137 MMOL/L [...] 0.7-2.0 HH = LACTP) POC ARTERIAL BLOOD [id number] 13:08:00 Test Item Value Reference Range Interpretation Comments POC ARTERIAL BLOOD GAS PH 7.386 7.35-7.45 N (test code = POCPHA) POC ARTERIAL BLOOD GAS PCO2 36.8 mmHg 35.0-45.0 N (test code = OBDLZT2G) POC ARTERIAL BLOOD GAS PO2 437.8 75.0-100.0 HH (test code = ZOTZI3Z) POC HCO3 ARTERIAL (test 22.1 MMOL/L 20.0-26.0 N code = HJRRXN1G) POC BASE EXCESS (test code -2.6 MMOL/L -3.0-3.0 N = POCBEA) POC O2 SATURATION (test 100.0 % 92.0-98.5 H code = POCO2S) FIO2 (test code = FIO2A) 90 % 21-100 PaO2/FiO2 (test code = 486.44 mm/Hg PMU9ZGJ6) SODIUM (test code = NA/ABG) 135 MMOL/L [...] 0.7-2.0 HH = LACTP) POC ARTERIAL BLOOD [id number] 12:33:00 Test Item Value Reference Range Interpretation Comments POC ARTERIAL BLOOD GAS PH 7.332 7.35-7.45 L (test code = POCPHA) POC ARTERIAL BLOOD GAS PCO2 44.3 mmHg 35.0-45.0 N (test code = AFFJXK8C) POC ARTERIAL BLOOD GAS PO2 572.1 75.0-100.0 HH (test code = XDPNJ3J) POC HCO3 ARTERIAL (test 23.4 MMOL/L 20.0-26.0 N code = XXGHBZ2R) POC BASE EXCESS (test code -2.4 MMOL/L -3.0-3.0 N = POCBEA) POC O2 SATURATION (test 100.0 % 92.0-98.5 H code = POCO2S) FIO2 (test code = FIO2A) 80 % 21-100 PaO2/FiO2 (test code = 715.12 mm/Hg BHA4ILE4) SODIUM (test code = NA/ABG) 139 MMOL/L [...] 0.7-2.0 HH = LACTP) POC ARTERIAL BLOOD [id number] 12:07:00 Test Item Value Reference Range Interpretation Comments POC ARTERIAL BLOOD GAS PH 7.341 7.35-7.45 L (test code = POCPHA) POC ARTERIAL BLOOD GAS PCO2 37.8 mmHg 35.0-45.0 N (test code = ZKCSNI8I) POC ARTERIAL BLOOD GAS PO2 561.7 75.0-100.0 HH (test code = ZLRLI7U) POC HCO3 ARTERIAL (test 20.5 MMOL/L 20.0-26.0 N code = YFQUWY9X) POC BASE EXCESS (test code -4.8 MMOL/L -3.0-3.0 L = POCBEA) POC O2 SATURATION (test 100.0 % 92.0-98.5 H code = POCO2S) FIO2 (test code = FIO2A) 100 % 21-100 PaO2/FiO2 (test code = 561.70 mm/Hg XNE5YKT9) SODIUM (test code = NA/ABG) 135 MMOL/L [...] mmol/L 0.7-2.0 HH = LACTP) BASIC METABOLIC [id number] 11:56:00 Test Item Value Reference Range Interpretation [...] CA) PLEASE CALL RESULTS TO PHONE #: [phone] [facility] ARTERIAL BLOOD [id number] 11:25:00 Test Item Value Reference Range Interpretation Comments POC ARTERIAL BLOOD GAS PH 7.260 7.35-7.45 LL (test code = POCPHA) POC ARTERIAL BLOOD GAS PCO2 54.3 mmHg 35.0-45.0 HH (test code = HOXLSP1X) POC ARTERIAL BLOOD GAS PO2 471.3 75.0-100.0 HH (test code = BFCGZ1X) POC HCO3 ARTERIAL (test 24.4 MMOL/L 20.0-26.0 N code = CENCXW9I) POC BASE EXCESS (test code -3.2 MMOL/L -3.0-3.0 L = POCBEA) POC O2 SATURATION (test 100.0 % 92.0-98.5 H code = POCO2S) FIO2 (test code = FIO2A) 90 % 21-100 PaO2/FiO2 (test code = 523.66 mm/Hg OQF5HOC1) SODIUM (test code = NA/ABG) 141 MMOL/L [...] mmol/L 0.7-2.0 HH = LACTP) CBC W/AUTO [id number] 09:49:00 Test Item Value Reference Range Interpretation [...] NRBC#) PLEASE CALL RESULTS TO PHONE #: [id number] [facility] ARTERIAL BLOOD [id number] 09:41:00 Test Item Value Reference Range Interpretation Comments POC ARTERIAL BLOOD GAS PH 7.362 7.35-7.45 N (test code = POCPHA) POC ARTERIAL BLOOD GAS PCO2 45.4 mmHg 35.0-45.0 H (test code = ZRITGF2G) POC ARTERIAL BLOOD GAS PO2 479.4 75.0-100.0 HH (test code = LVGVR1W) POC HCO3 ARTERIAL (test 25.8 MMOL/L 20.0-26.0 N code = RGTMXS1J) POC BASE EXCESS (test code 0.0 MMOL/L -3.0-3.0 N = POCBEA) POC O2 SATURATION (test 100.0 % 92.0-98.5 H code = POCO2S) FIO2 (test code = FIO2A) 100 % 21-100 N PaO2/FiO2 (test code = 479.40 mm/Hg YJB7DAH7) SODIUM (test code = NA/ABG) 140 MMOL/L [...] 0.7-2.0 N = LACTP) POC ARTERIAL BLOOD [id number] 07:59:00 Test Item Value Reference Range Interpretation Comments POC ARTERIAL BLOOD GAS PH 7.387 7.35-7.45 N (test code = POCPHA) POC ARTERIAL BLOOD GAS PCO2 42.8 mmHg 35.0-45.0 N (test code = KLJSXI7M) POC ARTERIAL BLOOD GAS PO2 76.2 75.0-100.0 N (test code = DBCYA6U) POC HCO3 ARTERIAL (test 25.8 MMOL/L 20.0-26.0 N code = GLBFYM7X) POC BASE EXCESS (test code 0.5 MMOL/L [...] mmol/L 0.7-2.0 L = LACTP) GLUCOSE BEDSIDE [id number] 19:10:00 Test Item Value Reference Range Interpretation Comments GLUCOSE BEDSIDE TESTING (test code 246 MG/DL 60-99 H = GLUBED) GLUCOSE BEDSIDE [id number] 16:13:00 Test Item Value Reference Range Interpretation Comments GLUCOSE BEDSIDE TESTING (test code 121 MG/DL 60-99 H = GLUBED) HIV 12 AB [id number] 13:25:00 Test Item Value Reference Range Interpretation Comments HIV 1 2 COMBO AG/AB SCREEN AB/AG NON REACTIVE NONREACTIVE (test code = PTE74RSTBS) GLYCOSYLATED HEMOGLOBIN [id number] 12:53:00 Test Item Value Reference Range Interpretation Comments GLYCOSYLATED 6.1 % 4.8-5.9 H Any condition t hat HEMOGLOBIN (HA1C) shortens e rythocyte (test code = survival or dec reasesmean GLYHGB) erythrocyte age (e.g., recovery from a cute blood loss,hemolytic anemia) will falsely lo wer HGBA1c resultsregardle ss of the method used. HG BA1c results from violetta rahman HbSS, HbCC, and HbSc must be [...] (test code = MBG) PLT RESPONSE TO [id number] 11:57:00 Test Item Value Reference Range Interpretation [...] had fewer adver se events. GLUCOSE BEDSIDE [id number] 11:45:00 Test Item Value Reference Range Interpretation Comments GLUCOSE BEDSIDE TESTING (test code 109 MG/DL 60-99 H = GLUBED) COMPREHENSIVE METABOLIC [id number] 10:55:00 Test Item Value Reference Range Interpretation [...] not done in the last 72 hoursPROTHROMBIN [id number] 10:53:00 Test Item Value Reference Range Interpretation [...] myocar dial infarction. 2.0 - 3.0 3. Technical Coordinator al prosthesis hear t valves, recurre nt systemic emboli sm. 3.0 - 4.5 PTT [id number] 10:53:00 Test Item Value Reference Range Interpretation Comments PTT ACTIVATED (test code = APTT) 39.4 SECONDS 25.1-36.5 H CBC W/AUTO [id number] 10:44:00 Test Item Value Reference Range Interpretation [...] in the last 72 hours- XR CHEST [id number] 10:33:00[facility] : 1940 Sex: M Patient Name: COLE JEFFREY Unit No: [id number] EXAMS: CPT CODE: [id number] XR CHEST 1V 80111 EXAM: CHEST ONE VIEW INDICATION: Cardiac/Heart Surgery [...] KAREL Reid, RT(R) Transcrpt Date/Tm/Trnsp: 03/30/2021 (1033) t.16 Orig Print D/T: S: 03/30/2021 (1036) [facility] NAME: COLE JEFFREY [address] PHYS: [place] [address] : 1940 AGE: 81 SEX: M LOC: Сергей Alvarez PHONE #: [phone] EXAM DATE: 03/30/2021 STATUS: ADM IN FAX #: [phone] RADIOLOGY NO: PAGE 1 Signed ReportGLUCOSE BEDSIDE [id number] 07:45:00 Test Item Value Reference Range Interpretation Comments GLUCOSE BEDSIDE TESTING (test code 115 MG/DL 60-99 H = GLUBED) GLUCOSE BEDSIDE [id number] 20:51:00 Test Item Value Reference Range Interpretation Comments GLUCOSE BEDSIDE TESTING (test code 148 MG/DL 60-99 H = GLUBED) GLUCOSE BEDSIDE [id number] 15:50:00 Test Item Value Reference Range Interpretation Comments GLUCOSE BEDSIDE TESTING (test code = 72 MG/DL 60-99 N GLUBED) GLUCOSE BEDSIDE [id number] 11:03:00 Test Item Value Reference Range Interpretation Comments GLUCOSE BEDSIDE TESTING (test code 156 MG/DL 60-99 H = GLUBED) GLUCOSE BEDSIDE [id number] 07:51:00 Test Item Value Reference Range Interpretation Comments GLUCOSE BEDSIDE TESTING (test code 111 MG/DL 60-99 H = GLUBED) [id number] 05:33:00 Test Item Value Reference Range Interpretation Comments PHOSPHOROUS (test code = PHOS) 3.1 MG/DL 2.5-4.5 N [id number] 05:33:00 Test Item Value Reference Range Interpretation Comments MAGNESIUM (test code = MAG) 2.1 MG/DL 1.6-2.3 N BASIC METABOLIC [id number] 05:12:00 Test Item Value Reference Range Interpretation [...] 8.4 MG/DL 8.4-10.2 N CA) CBC W/AUTO [id number] 04:54:00 Test Item Value Reference Range Interpretation [...] 0.00 K/mm3 0.0-0.1 N NRBC#) GLUCOSE BEDSIDE [id number] 21:32:00 Test Item Value Reference Range Interpretation [...] LDL) mg/dLNEAR OPTIMAL/ABOVE OPTIMAL........ .100-12 9 mg/dL BORDER LINE HIGH.........13 0-159 mg/dL HIGH.........16 0-189 mg/dL VERY HIGH.........>/ = 190 mg/dL [id number] 07:07:00 Test Item Value Reference Range Interpretation Comments MAGNESIUM (test code = MAG) 2.2 MG/DL 1.6-2.3 N BASIC METABOLIC [id number] 07:07:00 Test Item Value Reference Range Interpretation [...] = 9.1 MG/DL 8.4-10.2 N CA) PROTHROMBIN [id number] 06:48:00 Test Item Value Reference Range Interpretation [...] dial infarction. 2. 0 - 3.0 3. Technical Coordinator al prosthesis hear t valves, recurre nt systemic emboli sm. 3.0 - 4.5 PTT [id number] 06:48:00 Test Item Value Reference Range Interpretation Comments PTT ACTIVATED (test code = APTT) 34.6 SECONDS 25.1-36.5 N CBC W/AUTO [id number] 06:38:00 Test Item Value Reference Range Interpretation [...] 0.0-0.1 N NRBC#) COVID 19 Asymptomatic IH [id number] 05:30:00 Test Item Value Reference Range Interpretation [...] to Phleb: PLS RUN TEST [place]. THANKSPOC-Glucose [id number] 09:30:00 Test Item Value Reference Range Interpretation Comments POC-Glucose Meter (test 121 mg/dL 70-110 H : TE STED AT [facility] code = 1538) [address] [facility], 770 30: Certified Surgical First Assistant/Techni nan ID = [id number] for CHARLIE MEDINA Lab Interpretation (test Abnormal code = 61457-9) [facility] [id number] 09:30:00 Test Item Value Reference Range Interpretation Comments POC-GLUCOSE METER 121 mg/dL 70-110 H : TESTED A T [facility] 6720 (BEAKER) (test code = TEJAL [facility], 1538) [address]: Certified Surgical First Assistant/Techni nan ID = [id number] for ED WARDS, LESLI SARS-CoV2/RT-PCR (Asymptomatic ONLY)2021-01-17 00:14:00 Test Item Value Reference Range Interpretation Comments SARS-COV2/RT-PCR (test Negative Negative code = 83648-9) ALANNA (test code = ALANNA) Negative result [...] Healthcare Providers:https://www.saurabh alvarado/sarahi/RT SARS-CoV-2 HCP Fact Sheet 51-589526.pdf Fact Sheet for Healthcare Patients:https://www.armond gutierrez/sarahi/RT SARS-CoV-2 Patient Fact Sheet EN 51-887689N2.pdf Lab Interpretation Normal (test code = 20884-8) [facility])2021-01-17 00:14:00 Test Item Value Reference Range Interpretation Comments SARS-COV2/RT-PCR (test code = Negative Negative 6660121) Negative result for this test determines that [...] 564(g) of the Act.Testing was performed using [employer] SARS-CoV-2 assay.Fact Sheet for Healthcare Providers:https://www.fav.or.it.cote/sarahi/RT SARS-CoV-2 HCP Fact Sheet 51- 273196.pdfFact Sheet for Healthcare Patients:https://www.fav.or.it.cote/sarahi/RT SARS-CoV-2 Patient Fact Sheet EN 51-372811L6.pdfBASIC METABOLIC [id number] 12:41:00 Test Item Value Reference Range Interpretation [...] S NOT APPLICABLE FOR DIALYSIS PATIEN TS. Certified Surgical First Assistant ID - KEDAR [id number] 12:13:00 Test Item Value Reference Range Interpretation Comments HEMOGLOBIN (LALO) (test code = 11.8 GM/DL 13.7-17.5 L 410) Certified Surgical First Assistant ID - CherylTissue [id number] 14:26:00 Test Item Value Reference Range Interpretation Comments Case Report (test code Surgical Pathology = 104) Report Case: [id number] Authorizing Provider: Fransisco Martinez DPM Collected: 12/08/2020 05:13 PM Ordering Location: [facility] Received: 12/09/2020 08:04 AM SERVICES Pathologist: Ksenia Gallego MD Specimen: Toe, Left, Left distal 2nd digit toe DIAGNOSIS (test code = w7nejRKhKKUco0xnRBKntOS 3220) uZzEwMzNcZnRuYmpcdWMxIH tccnRmMVxlcGljOTIwMlxhb yGbCEHapNSyR2AexvnqLQyi RA2wVK5dcEvqkAMszKQyJUL uVzZci0zro237pOLsl9yxCG QOaoqfjGq8cVkjX03vx0X5S filC21byZHcBFqxmWSxswqi mpRqOVUTE4LaNRfGIjKnEHD ZQ4WMPOUcVeLyIOcYEKUsYG XKLXZTZOSOW275VECtlaLiQ LRNTHBBJtPSPkNbX7RLYySL RIWBB37qDBrWN2XSNDFaflF wOAMUSoOYVv1TFaGXODGNJW IMFTPGQbFWV8zNHXUNWBJXD kFOVUxBVElPTiBUSVNTVUUg WFNBIMGZJ73FOG4XPFeyJYT wPR4fD2iEDilgK28DFUBFLG RMTHZwJW3MJZTYCxKyHPZDY 3bESjIEWiVoPW3ATG1XRmjU QkxFXHBhciAgLSBORUdBVEl HEDEWB9MiNYSNYCyYVH9NIH pgUENmDTchUVS9t1ncxDFaH HNzdGUxODAwMFxhbnNpXGRl UnihgttfDFQzJCU9rlYyHXU qEYgvXTYjIDjmYf2nkFMajO tjMlKeDSXtf4bcywFGbemjv Je8l6lmVUUgIcT9pHZsXZei W2slaiPtvSCvZCZrMYq1mY8 0XMJgjD7lkEBnYJdvudTpJe I6AXjoLRTeCmX8DMGimRHfU BPcZ9eqFNDuEHvvVXMmYDhv tISuCMJ8uZteu0R9yFRqoXY lzOhkFxIsWuSwBqCIk1AzJU i4vWvqL3HiQIGfBxE3iHRhM TIuNNypYPNsSUDqwrI6wL47 HSirolE7eMSzx0Ina01ef56 6rI2idSKrGFV8WIGqSKPsvB RjSOXfPFW1WVBquSEnK9nlQ FWpPY4gyjbdOFvyBUvkNHZf tBZ3PKObcTCuV3YnHIEaGXd qRFPpurp7LqKyXs0xcVYhuW rtYHibl6yhi0bonPFwXkm6W GRtTmZgZmqqLBrfx7Brb7gp BHBles3oLLY9jQMksBhcn6I 4bINsVMZngXNoZSNaPZ5kiE CkLUMglK2kxlknFNMaCsPti eilJHWhwYmjtfGvXa7fpUzy ORF9HJykR4oauS9eKuR2LKu yO3esbI6lFOy7STlzNUAdpP E4zfA4SRDpjKXfN0EitS9bK QHpWT6aeby8w2yvQPY0EOkl LWByReF6hhY3LCAvhHQgYJG mvXcvDOgbd065IUP3JrXxDF Wws6KpH4NghYerF35odDbgG 56hSZBxfAtkaE4ulFudgI5u SrAvQqMuHPialPdgCT2uXFI oW2ckuPJrVFJgAAVaJ4hgFk YswY4qvTnaSXprayXrMXOcL vn7OKFktNEbPEFhCoe4BIQv FNDrK72gcxgeBUO6eO4si5k dc3NgLWxwAXD8OALei78aOD beauI1CHtwZy5pMLMeVZLoS DgbUIT9nH== COMMENT (test code = l5wybQKnPOYrbDK0BzWsLUU 3350) iv1ybv1KgxCQuxPNqBYjatH VkprBnhg29yWQ6qO99XU7nL MQyZaY6RMZqruG4Zow0UYVk OVZfdKAtW168c2hbr0ckhbO rbRT8tNnzXEYyOKCrPWxrXQ XkRrCyR14hr8ggsVLfbCC7b VYeRTWnir5boSRpa5R2UZ0m tLJinBBtsg4bVJQ1yNTbm8F 0SV4gaVEjzXXzcjGjqxFne2 BeJRYofZ7dnKJppKRpvhXuJ V96TWqzBHLwrDIge3RqnWyc blxwYXJ9 CPT Code(s) (test code g7xhjGIaGLDvzMB5JuGiMSW = 3357) kh6tvx4KxbKCteOWrHZyhlK WndwTchv25lIH5uL86BW3jR PQaKpK2TQYdddC2Bsb2AKPf FCQwxGIzV328e0knn5dqqkK eqAQ1dGlcKZJpEYSdBXuvAI SdTwSnCGtoOFE1GOq7HtTqD HBhcn0= CLINICAL HISTORY (test k9xceBZqXXGhyJY5WvPhUJZ code = 3356) on8ior0ZtvFKhxYWvBRkgmV BrspDifd73lBP4bS08XD9oK RBkQeS1RSCechU1Fal1WEAt GEBhhGRxW329q1pvy6ifsqW ewPU9nCxjAYEwWLZqRUdlZL TbYrBfOTmbKAIfo0QzyMNpq XBmy543NLGdvm8= SPECIMEN SOURCE (test x9ijjLZyUOHkgUB3NgCjGKC code = 3377) jq0xyd2UfhLVapKUfZZhluF JuklFsnf68mOS2xQ95QQ6eI RSiOlP5PNCfjmR6Npd2VLXu SZWenDTjD233j3tpb1unvhG ouTG8pMchDIYwZSIePInkMQ UbMbUzCA5xLSCiCWK9YZGxg n0= GROSS DESCRIPTION y1quqCDuETWbdIXqRuLyRNM (test code = 3366) vJMHgg7hsAPCxsMUlExLsUq NcZnRuYmpcdWMxXGRlZmYwe 0apk406eOCxe9olPFFwYlA8 fMTtYFVhqIDaW902d5svp8h osgWyfSJ0ZMWhIRO8ACefgt QfdvP9LHrudPSmQeV0RChyd cGuXOjbxrQngvHkBzx2FWXn E947JKZ9fTtew0wmWXV6UVL iCUQsJrKrIg5seBZrD134KD VvDAJCRIXdzPy9VTAtysSdm sSmfMITd748N593t0iaPPBp myLwjBgTnhmis6joS997NQT hcGVydzEyMjQwXHBhcGVyaD Z1ZJCnQD7zzgfmWpUrXK0xp oriEbRlKP4grkz0QkJzWS9q cmdiNzIwXGhlYWRlcnkwXGZ fy4WjvnclYN0pM1Gik6S7xD 9maXRcZGVmdGFiNzIwXGZvc d1xrHHwTJcah9IrAKD9mgV4 dDBxaHCyOWZbXK49Syinh6N vDlekHKM6FXLvibCzw8Veq9 ovWlFdbvTrL0soU2IqHUTlE OIvIDBwHvHwroMqx3Obm0Wa cWLpgCf6m5ngOMEtYUFvoXv fi5mvHMD3MUXvB4C9hQCen4 ejQRvwIRFjgNT1ezcrIAsvE FOqxbE5dknlETihNQCeuXU5 qgxtNYefYNWtTjN6ghgsYVm uTUNaIWT4TYrsu240UYM2LN xzYmtwYWdlXHBnbmNvbnRcc GduZGVjXHBsYWluXHBsYWlu XGYwXGZzMjRccWxccGxhaW5 eBxWjBdOdKZzlVI1dUQRiH9 leuXVqBYFxBDEoV9peTjKdt U6otYnpFCiwjxQtOOIcXWTi E0IjtkNxISYdKEOfEXcxBhZ wHIYlq4n4eBQ9fGQjiGR4tS HpgRqdJgKzWP9dqVQrSK5uL CklVJjezlMek3DrWG96nTHl ciBhbmQgInRvZSwgbGVmdCI euJDvPPUlhJHvntSyK6IbGQ GrRRZbhQC4WChytP5lPT7dT RW6gpimOxFjENTfOTinWEbj kmm7cWMxltQuMzGmbZTukoI sqQGoSOYulo4zWJAbSCGuCD vrZIMaLUL9oHJsyXKjCONqk uV5CVkvxYnvclW1jnh3xPLl ICBUaGUgcGxhbnRhciBzdXJ jQKCnUXWvo3ThTOshZXIkGY O5YVFwwHMgLpWrJ43luXXom 3JyaGFnaWMgdWxjZXIgdGhh vDYheYPco6YslXAxIVGaTXA mq8zdPT0vvldddoZcLxs2WQ vfCKBbFJMzeiHlPsEeO80bB lCrpUG4pNPgNGucLMI4tFD2 qLA4SYTvSC6kBgCkDZzkAAF puBBqlmumAsMth8lmXRsxUW hbJLcyt1ercWLvEYi2dGUho 8TfWFLgqLzyPKZbJTQvF8Bj eS6tITAtYQE6jpQtdom5gY9 qZGMlocZdbLCowMXyxZ93PP Ykg79rB3Axi7JlSSLxPMM6w wDnKOX3oVP1KXWtKURMKTQy TMKrkbEfuYh5HDHsKFX6gW2 dvoJcxrLmg9HvoAg7lDApHc mgKOQodJKjEEGuE9Tdc00wA 29kZTpccGFyIEExOiBVbGNl upL6ijTamQ8gRWB1LYEvaF3 gtCMvI2ymGXGsZLJsLS8ojW I9vYNbJQDkB3Nxr43aMAEzn mFaKDozQOR2bPE5fST7NGOk DC3tHWDwwmWaXXOiHDRrt2f mj5zyumseYOEyOVpecDGyO3 T9kJ5vRRBzxpSTGypzEInpC DUsm1a6kQQ4jqMmwhg1sW6v NEOygdDkGKMxtItru2kcIcQ rWSYkqJXzZrofDMTau09wgY GdUMQllhRDjZDir2GbBYjeH AVfBDNCWTZnVVJTCWaSL9GG KWNtXHBhcn0= MICROSCOPIC w1zaqEIyBKHidFN1SeNiIYF DESCRIPTION (test code ad4rsg1VshUUdpFJuJOjciB = 3371) VefvZpav32dBV9yT69OI7qL KGmBdR2OQWgghY7Fyj8OCWq LRLivXBoR385b8sns0altaN ueLL2hAtxYENtIRTaXCztXI QoUdZyQFBKOk4FUQTPUABmi n0= [facility] [id number] 14:26:00Surgical Pathology Report Case: [id number] Authorizing Provider: Fransisco Martinez DPM Collected: 12/08/2020 05:13 PM Ordering Location: [facility] PERIOPERATIVE Received: 12/09/2020 08:04 AM SERVICES Pathologist: Ksenia Gallego MD Specimen: Toe, Left, Left distal 2nd digit toe FOOT, LEFT, DISTAL 2ND DIGIT, AMPUTATION: - ULCER AND GRANULATION TISSUE - INTER-TRABECULAR FIBROSIS AND GRANULATION TISSUE (SEE COMMENT) - SKIN, SOFT TISSUE AND BONE MARGINS ARE UNREMARKABLE - NEGATIVE FOR MALIGNANCY Signing Pathologist Direct Phone Line: [phone] signed by Ksenia Gallego MD on 12/26/2020 at 2:25 PMConsistent with chronic osteomyelitis. Acute osteomyelitis is not definitely present in this dyofxdt91239; 05091Qzloj of left footToe, leftA. Received fresh labeled with the patient's name, medical record number and "toe, left" is a disarticulated distal toe measuring 1 cm in length and 2 cm in diameter. There is an attached, basurto- yellow unguis. The plantar surface displays a1 x 1 x 0.1 cm hemorrhagic ulcer that approaches the skin margin (blue), and is 1.5 cm from the disarticulated end. The remaining skin is basurto-white, hyperkeratotic and scaly. The underlying bone is yellow, homogenous and trabeculated. Microbiology Soil Scientist sections are submitted.Section code:A1: Ulcer to closest skin margin, perpendicular sections, and disarticulated end, en face, following decalcificationA2: Ulcer with underlying bone, following decalcificationChelsea INDIO Mane PA (ASCP)cmPERFORMEDSurgically obtained culture + gram [id number] 11:53:00 Test Item Value Reference Range Interpretation Comments Result (test code = From Broth Only A 6463-4) Coagulase negative Staphylococcus Gram Stain Result (test No organisms seen code = 1123) ALANNA (test code = ALANNA) Lab Interpretation Abnormal (test code = 02226-8) [facility] GRAM [id number] 11:53:00 Test Item Value Reference Range Interpretation Comments CULTURE A From Broth Only (BEAKER) (test Coagulase neg ative code = 1095) Staphylococcus GRAM STAIN <1+ WBCs RESULT (BEAKER) (test code = 1123) GRAM STAIN No organisms seen RESULT (BEAKER) (test code = 012455) Anaerobic [id number] 08:04:00 Test Item Value Reference Range Interpretation Comments Result (test code = No anaerobes isolated 6463-4) [facility] [id number] 08:04:00 Test Item Value Reference Range Interpretation Comments CULTURE (BEAKER) (test No anaerobes isolated code = 1095) Blood Culture # 16:00:00 Test Item Value Reference Range Interpretation Comments Result (test code = No growth in 5 days 6463-4) [facility] CenterBL[facility] [id number] 16:00:00 Test Item Value Reference Range Interpretation Comments CULTURE (BEAKER) (test No growth in 5 days code = 1095) BLOOD [id number] 16:00:00 Test Item Value Reference Range Interpretation Comments CULTURE (BEAKER) (test No growth in 5 days code = 1095) POCT-GLUCOSE [id number] 07:40:00 Test Item Value Reference Range Interpretation Comments POC-GLUCOSE METER 130 mg/dL 70-110 H : TESTED A T [facility] 6720 (BEAKER) (test code = [place], 1538) 11466: Certified Surgical First Assistant/Techni nan ID = [id number] for PATRICIA DUGAN BASIC METABOLIC [id number] 05:04:00 Test Item Value Reference Range Interpretation [...] S NOT APPLICABLE FOR DIALYSIS PATIEN TS. Certified Surgical First Assistant ID - PIAYA LRAD, FOOT, 2 VIEWS, [id number] 04:32:00Reason for exam:->post op distal 2nd digit amputaiton for osteomeylitis distal phalanx, left footShould this be performed at the bedside?->No [facility] 1940 Sex: MFINAL [...] T [facility] 6720 (BEAKER) (test code = [facility], 1538) 83133: Certified Surgical First Assistant/Techni nan ID = [id number] for Rick Moreno POCT-GLUCOSE [id number] 18:05:00 Test Item Value Reference Range Interpretation Comments POC-GLUCOSE METER 129 mg/dL 70-110 H : TESTED A T [facility] 6720 (BEAKER) (test code = [facility], 1538) 23721: Certified Surgical First Assistant/Techni nan ID = [id number] for Tash Mata POCT-GLUCOSE [id number] 13:50:00 Test Item Value Reference Range Interpretation Comments POC-GLUCOSE METER 140 mg/dL 70-110 H : TESTED A T [facility] 6720 (BEAKER) (test code = [facility], 1538) 23464: Certified Surgical First Assistant/Techni nan ID = [id number] for Lyly Cedeno POCT-GLUCOSE [id number] 09:44:00 Test Item Value Reference Range Interpretation Comments POC-GLUCOSE METER 140 mg/dL 70-110 H : TESTED A T [facility] 6720 (BEAKER) (test code = [facility], 1538) 10822: Certified Surgical First Assistant/Techni nan ID = [id number] for Lyly Cedeno WOUND CULTURE + GRAM [id number] 08:55:00 Test Item Value Reference Range Interpretation [...] gram negative (BEAKER) (test code rods = 690874) GRAM STAIN RESULT 1+ budding yeast (BEAKER) (test code with pseudohyphae = 695665) GRAM STAIN RESULT 2+ gram positive (BEAKER) (test code cocci in pairs and = 309333) clusters 1+ Skin floraBASIC METABOLIC [id number] 07:05:00 Test Item Value Reference Range Interpretation [...] S NOT APPLICABLE FOR DIALYSIS PATIEN TS. Certified Surgical First Assistant ID - AAHAMIDCBC with platelet count + automated [id number] 06:49:00 Test Item Value Reference Range Interpretation Comments WBC (test code = 6690-2) 7.5 See_Comment [A utomated message] The system [employer] generated this result transmitted ref erence range: 3.5 - 10 .5 K/L. The refe rence range was not u sed to interpret this result as normal/abnor mal. RBC (test code = 789-8) 4.40 See_Comment L [Au tomated message] The system [employer] generated this result transmitted ref erence range: 4.63 - 6 .08 M/L. The refe rence range was not u sed to interpret this result as normal/abnor mal. MCHC (test code = 786-4) 32.6 See_Comment L [A utomated message] The system [employer] generated this result transmitted ref erence range: [...] See_Comment [Aut omated message] 777-3) The system [employer] generated this result transmitted ref erence range: 150 - 45 0 K/CU MM. The referen ce range was not u sed to interpret this result as normal/abnor mal. MPV (test code = 10.2 fL 9.4-12.4 87528-7) nRBC (test code = 413) 0 See_Comment [Aut omated message] The system [employer] generated this result transmitted ref erence range: [...] See_Comment [Aut omated message] 670) The system [employer] generated this result transmitted ref erence range: 1.78 - 5 .38 K/L. The refe rence range was not u sed to interpret this result as normal/abnor mal. # Lymphs (test code = 1.98 See_Comment [Auto mated message] 414) The system [employer] generated this result transmitted ref erence range: 1.32 - 3 .57 K/L. The refe rence range was not u sed to interpret this result as normal/abnor mal. # Monos (test code = 1.14 See_Comment H [Autom ated message] 415) The system [employer] generated this result transmitted ref erence range: 0.30 - 0 .82 K/L. The refe rence range was not u sed to interpret this result as normal/abnor mal. # Eos (test code = 416) 0.38 See_Comment [Au tomated message] The system [employer] generated this result transmitted ref erence range: 0.04 - 0 .54 K/L. The refe rence range was not u sed to interpret this result as normal/abnor mal. # Baso (test code = 417) 0.05 See_Comment [A utomated message] The system [employer] generated this result transmitted ref erence range: 0.01 - 0 .08 K/L. The refe rence range was not u sed to interpret this result as normal/abnor mal. Immature 1 % 0-1 Granulocytes-Relative (test code = 2801) Lab Interpretation (test Abnormal code = 52307-5) [facility] W/PLT COUNT & AUTO [id number] 06:49:00 Test Item Value Reference Range Interpretation [...] PERCENT (BEAKER) (test code = 2801) POCT-GLUCOSE [id number] 21:27:00 Test Item Value Reference Range Interpretation Comments POC-GLUCOSE METER 171 mg/dL 70-110 H : TESTED A T [facility] 6720 (BEAKER) (test code = [facility], 1538) 97123: Certified Surgical First Assistant/Techni nan ID = [id number] for JARRED BOYD POCT-GLUCOSE [id number] 17:54:00 Test Item Value Reference Range Interpretation Comments POC-GLUCOSE METER 101 mg/dL 70-110 : TESTED A T [facility] 6720 (BEAKER) (test code = [facility], 1538) 64705: Certified Surgical First Assistant/Techni nan ID = [id number] for Sarah Durand POCT-GLUCOSE [id number] 12:56:00 Test Item Value Reference Range Interpretation Comments POC-GLUCOSE METER 144 mg/dL 70-110 H : TESTED A T [facility] 6720 (BEAKER) (test code = [facility], 1538) 68264: Certified Surgical First Assistant/Techni nan ID = [id number] for Sarah Durand POCT-GLUCOSE [id number] 08:05:00 Test Item Value Reference Range Interpretation Comments POC-GLUCOSE METER 131 mg/dL 70-110 H : TESTED A T [facility] 6720 (BEAKER) (test code = [facility], 1538) 43376: Certified Surgical First Assistant/Techni nan ID = [id number] for Sarah Durand BASIC METABOLIC [id number] 04:40:00 Test Item Value Reference Range Interpretation [...] S NOT APPLICABLE FOR DIALYSIS PATIEN TS. Certified Surgical First Assistant ID - LAWRENCE WPOCT-GLUCOSE [id number] 21:04:00 Test Item Value Reference Range Interpretation Comments POC-GLUCOSE METER 124 mg/dL 70-110 H : TESTED A T [facility] 6720 (BEAKER) (test code = [facility], 1538) 20663: Certified Surgical First Assistant/Techni nan ID = [id number] for JARRED BOYD POCT-GLUCOSE [id number] 17:34:00 Test Item Value Reference Range Interpretation Comments POC-GLUCOSE METER 123 mg/dL 70-110 H : TESTED A T [facility] 6720 (BEAKER) (test code = [facility], 1538) 54856: Certified Surgical First Assistant/Techni nan ID = [id number] for Lexie MARIOA Vancomycin level, [id number] 15:39:00 Test Item Value Reference Range Interpretation Comments Vancomycin Tr (test code = 10.2 ug/mL 10.0-20.0 4092-3) ALANNA (test code = ALANNA) Certified Surgical First Assistant ID - ADMIN Lab Interpretation (test Normal code = 87169-9) [facility], [id number] 15:39:00 Test Item Value Reference Range Interpretation Comments VANCOMYCIN TROUGH (BEAKER) (test 10.2 ug/mL 10.0-20.0 code = 522) Certified Surgical First Assistant ID - ADMINPOCT-GLUCOSE [id number] 11:47:00 Test Item Value Reference Range Interpretation Comments POC-GLUCOSE METER 170 mg/dL 70-110 H : TESTED A T [facility] 6720 (BEAKER) (test code = [facility], 1538) 28671: Certified Surgical First Assistant/Techni nan ID = [id number] for SHELBI, S PREMAKARA POCT-GLUCOSE [id number] 08:03:00 Test Item Value Reference Range Interpretation Comments POC-GLUCOSE METER 134 mg/dL 70-110 H : TESTED A T [facility] 6720 (BEAKER) (test code = [facility], 1538) 72885: Certified Surgical First Assistant/Techni nan ID = [id number] for SHELBI, S HIKARA Hemoglobin [id number] 07:46:00 Test Item Value Reference Range Interpretation Comments Hemoglobin A1C (test code = 4548-4) 6.5 % 4.3-6.1 H Lab Interpretation (test code = Abnormal 50059-9) [facility]HEMO[facility]IN [id number] 07:46:00 Test Item Value Reference Range Interpretation Comments HEMOGLOBIN A1C (BEAKER) (test code = 6.5 % 4.3-6.1 H 368) [id number] 07:35:00 Test Item Value Reference Range Interpretation Comments Magnesium (test code = 2.1 mg/dL 1.6-2.6 20204-9) ALANNA (test code = ALANNA) Certified Surgical First Assistant ID - BS Lab Interpretation (test Normal code = 65067-4) [facility] CenterBASI METABOLIC [id number] 07:35:00 Test Item Value Reference Range Interpretation [...] S NOT APPLICABLE FOR DIALYSIS PATIEN TS. Certified Surgical First Assistant ID - [id number] 07:35:00 Test Item Value Reference Range Interpretation Comments MAGNESIUM (BEAKER) (test code = 2.1 mg/dL 1.6-2.6 627) Certified Surgical First Assistant ID - BSCBC W/PLT COUNT & AUTO [id number] 05:58:00 Test Item Value Reference Range Interpretation [...] PERCENT (BEAKER) (test code = 2801) POCT-GLUCOSE [id number] 20:28:00 Test Item Value Reference Range Interpretation Comments POC-GLUCOSE METER 72 mg/dL 70-110 : TESTED A T [facility] 6720 (BEAKER) (test code = [facility], 1538) 34133: Certified Surgical First Assistant/Techni nan ID = [id number] for Corz ine (contract), Mar y Lactic acid, venous [id number] 17:37:00 Test Item Value Reference Range Interpretation Comments Lactate, Venous (test code = 2.17 mmol/L 0.50-2.20 2872) ALANNA (test code = ALANNA) Certified Surgical First Assistant ID - BS Lab Interpretation (test Normal code = 45675-9) [facility] CenterLACTIC ACID, [id number] 17:37:00 Test Item Value Reference Range Interpretation Comments LACTATE BLOOD VENOUS (2) (BEAKER) 2.17 mmol/L 0.50-2.20 (test code = 2872) Certified Surgical First Assistant ID - BSRAD, FOOT, MIN 3 VIEWS, [id number] 14:49:00Reason for exam:- >left 2nd [facility] 1940 Sex: MFINAL REPORT RAD, FOOT, MIN 3 VIEWS, LEFT INDICATION: left 2nd toe wound COMPARISON: None TECHNIQUE: AP and lateral oblique radiographs of the foot FINDINGS/IMPRESSION:No acute fracture. No radiopaque foreign body. Signed: Delilah Greene MDRepfrancois Verified Date/Time: 12/05/2020 14:49:31 Reading Location: [facility] Radiology Reading Room Comprehensive metabolic panel [...] Albumin (test code = 4.0 g/dL 3.5-5.0 96896-7) Alkaline Phosphatase 59 U/L 40-150 (test code = 6768-6) Total Bilirubin (test 0.6 mg/dL 0.2-1.2 code = 1974-2) Sodium (test code = 136 meq/L 545-381 9293-2) Potassium (test code 4.1 meq/L 3.5-5.1 = 2823-3) Chloride (test code = 100 meq/L 98-107 2075-0) CO2 (test code = 25 meq/L 22-29 8-9) BUN (test code = 16 mg/dL 7-21 3094-0) Creatinine (test code 1.09 mg/dL 0.57-1.25 = 2160-0) Glucose (test code = 129 mg/dL 70-105 H 2345-7) Calcium (test code = 9.1 mg/dL 8.4-10.2 79112-2) AST (test code = 16 U/L 5-34 1920-8) ALT (test code = 16 U/L 6-55 1742-6) EGFR (test code = 65 mL/min/1.73 [place] [address]-4) NOT ACCURATE CREATININE CLEARANCE IN PREDICTING GLOMERULAR FILTRATION RATE . ESTIMATED GFR I S NOT APPLICABLE FOR DIALYSIS PATIEN ALANNA (test code = ALANNA) Certified Surgical First Assistant ID - CHRISTINA Lab Interpretation Abnormal (test code = 32726-7) [facility] CenterCOMPREHENSIVE METABOLIC [id number] 14:45:00 Test Item Value Reference Range Interpretation [...] S NOT APPLICABLE FOR DIALYSIS PATIEN TS. Certified Surgical First Assistant ID - EMERSONLACTIC ACID, [id number] 14:41:00 Test Item Value Reference Range Interpretation Comments LACTATE BLOOD VENOUS 3.18 mmol/L 0.50-2.20 H Specime n slightly (2) (BEAKER) (test hemolyzed code = 2872) Certified Surgical First Assistant ID - [id number] 14:34:00 Test Item Value Reference Range Interpretation Comments PTT (test code = 39.1 See_Comment H [Automated message] 38654-5) The system [employer] generated this result transmitted ref erence range: 22.5 - 3 6.0 seconds. The reference range was not used to int erpret this result as normal/abnormal . Lab Interpretation (test Abnormal code = 50434-5) [facility] CenterAPTT2021-06-25 14:34:00 Test Item Value Reference Range Interpretation Comments PARTIAL THROMBOPLASTIN TIME 39.1 seconds 22.5-36.0 H (BEAKER) (test code = 760) Prothrombin time/[id number] 14:33:00 Test Item Value Reference Interpretation Comments Range Protime (test code = 13.3 See_Comment [Autom ated 5902-2) message] The system which generated this result transmitted reference range : 11.9 - 14.2 seconds. The reference range was not used to interpret this result as normal/abnormal . INR (test code = 1.03 See_Comment [Automated 2934-6) message] The system which generated this result [...] valves. Lab Interpretation Normal (test code = 24869-4) [facility] CenterPROTHROMBIN TIME/[id number] 14:33:00 Test Item Value Reference Range Interpretation Comments PROTIME (BEAKER) 13.3 seconds 11.9-14.2 (test code = 759) INR (BEAKER) (test 1.03 See_Comment [Automat ed message] code = 370) The system [employer] generated this result transmitted ref erence range: <=5.90. The reference range was not used to int erpret this result as normal/abnormal . RECOMMENDED COUMADIN/WARFARIN INR THERAPY RANGESSTANDARD DOSE: 2.0 - 3.0 Includes: PROPHYLAXIS for venous thrombosis, systemic embolization; TREATMENT for venous thrombosis and/or pulmonary embolus.HIGH RISK: Target INR is 2.5-3.5 for patients with mechanical heart valves.CBC W/PLT COUNT & AUTO [id number] 14:27:00 Test Item Value Reference Range Interpretation [...] = 2801) RAD, FOOT, MIN 3 VIEWS, [id number] 14:06:00Reason for Exam:->Abscess or cellulitis of toe, [...] MDReport Verified Date/Time: 12/03/2019 14:06:27 Reading Location: [facility] Reading Room [address] [place] [address] Notes Date/Time Note Provider Source 2023-02-13 8440-34-72W98:05:00Formatting of this Nevaeh Pandey [facility] 12:05:00 note might be different from the RN original.Written/verbal d/c instructions, out of ER no distress 76150-6Nosakedpr department UypuJW1693-49-71V30:15:06[facility] NoteTXT1.2.840.091299.1.13.104.2.7.2.72 7879|[id number] for patient mxgn49986-1WvdsZE218828313Jodxzy M. Barton RN[address] RcyfCxxkixktkWidlmnlwmUQVE7920728012SSU VDPNYZWYZXLVLSBCTDO4236-69-23K63:15:061 .2.840.627668.1.72.3.15|1.2.840.986062. 1.13.104.2.7.2.727879_[id number] 2023-02-13 5437-04-24T23:23:10Formatting of this [facility] 11:23:10 note might be different from the original.Amita escalona rep to speak with Dr. Copeland 25111-1Xfeimoljl department SymxAV5909-58-55J94:23:37[facility] department NoteTXT1.2.840.428836.1.13.104.2.7.2.72 7879|[id number] for patient uawb07948-8SsilBGQGCHCXUM[id number] WLNHFYCTPEVVWKAEKLQ7379-92-89Z28:23:371 .2.840.155750.1.72.3.15|1.2.840.557362. 1.13.104.2.7.2.727879_[id number] 2023-02-13 9053-36-49Z04:07:53Formatting of this [facility] 11:07:53 note might be different from the original.Called cote still no report has been received 17152-3Lurnfgfky department DzntCH0107-49-42U42:09:34[facility] NoteTXT1.2.840.359864.1.13.104.2.7.2.72 7879|[id number] for patient ataa32262-5ZdxtODVEVRHTOS[id number] RODILMSAJKUNVMLXKXF5488-59-77J27:09:341 .2.840.500988.1.72.3.15|1.2.840.044407. 1.13.104.2.7.2.727879_[id number] 2023-02-13 6992-61-00J99:20:35Formatting of this [facility] 10:20:35 note might be different from the original.Called to check status of interrogation report 32721-8Xlvgbhgyb department IebaPC3171-15-30E76:20:56[facility] department NoteTXT1.2.840.324973.1.13.104.2.7.2.72 7879|[id number] for patient ikxd88185-7XpzgBIRPLBWTOQ[id number] OKLMHHPHTHUJPBAVMGA9837-81-06F44:20:561 .2.840.946992.1.72.3.15|1.2.840.656330. 1.13.104.2.7.2.727879_[id number] 2023-02-13 7696-40-48V17:02:34Formatting of this [facility] 09:02:34 note might be different from the original.Pacemaker/defibrillator device interrogated, waiting for activity report. 22930-4Xncoxejyt department LlatCS5678-44-57J02:03:14[facility] department NoteTXT1.2.840.232882.1.13.104.2.7.2.72 7879|[id number] for patient dmip32331-2UcnqAEBOLDRJXD[id number] NCNETOUOYEDAKCHYAFN9630-56-91Q65:03:141 .2.840.761556.1.72.3.15|1.2.840.255799. 1.13.104.2.7.2.727879_[id number] 2023-02-13 5623-84-05G67:39:23Formatting of this [facility] 08:39:23 note might be different from the original.Pt states at 0700 while sitting in his chair thought someone was bumping his chair, states then noted it was his chest "bumping" denies chest pain just had a mild pressure and felt like belching, no shortness of breath, skin w/d pt taken to room 8 , placed on monitor sinus rhythm noted, hl placed, vikash home transmitter placed on pt to attempt interrogation of medical billing and coding specialist. States placed in October of this year.pt currently denies discomforts, has had no "bumps" to chest since arrival 81307-3Vmkpghhdt department UklyLO7418-33-40C68:43:26[facility] department NoteTXT1.2.840.254280.1.13.104.2.7.2.72 7879|[id number] for patient xghc52126-1DgbeHOLRZWLFBV[id number] UAFNAKPJBVBTGXTHEMB1125-32-65U71:43:261 .2.840.266706.1.72.3.15|1.2.840.086189. 1.13.104.2.7.2.727879_[id number] 2023-02-13 8876-56-27F92:12:45Formatting of this Fahad taylor RN [facility] 08:12:45 note might be different from the original.Patient states "my chest, I am getting some bumps, I guess it is my pacemaker or defibrillator."Patient c/o discomfort in the chest, denies SOB. 86199-1Nictfwnhj department Triage oxglXP6618-52-91R62:15:50[facility] department Triage noteTXT1.2.840.893284.1.13.104.2.7.2.72 7879|[id number] for patient vpwi17880-2Tjedqaahx department [id number] S Cryer RN[id number] EKLIDSDLGLDYTQYLQKO0439-05-80L31:15:501 .2.840.766542.1.72.3.15|1.2.840.509151. 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 He does not feel like his defibrillator has gone off. He states he has had some chest pressure with these episodes but has none currently. He has not felt his heart going fast. No shortness of breath. No nausea or vomiting. No cough or congestion. No fevers or chills. 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 Past Surgical History:History reviewed. No pertinent surgical history.Review of Systems: Review of Systems Constitutional: Negative for chills and fever. Respiratory: Negative for cough and shortness of breath. Cardiovascular: Negative for chest pain. Gastrointestinal: Negative for abdominal pain and vomiting. Genitourinary: Negative for dysuria. Musculoskeletal: Negative for arthralgias, neck pain and neck stiffness. Skin: Negative for wound. Neurological: Negative for dizziness. Psychiatric/Behavioral: Negative for agitation. Endocrine: Negative for goiter. Physical Exam: ED Triage Vitals [02/13/23 0814] Weight 92.1 kg (203 lb) Actual or estimated Height 1.829 m (6') BP (!) 148/78 Pulse 60 Resp 18 Temp 36.5 ?C (97.7 ?F) Temp source Oral SpO2 99 % Measured on Room air Physical ExamVitals and nursing note reviewed. Constitutional: Appearance: Normal appearance. He is normal weight. HENT: Head: Normocephalic and atraumatic. Cardiovascular: Rate and Rhythm: Normal rate and regular rhythm. Pulses: Normal pulses. Pulmonary: Effort: Pulmonary effort is normal. No respiratory distress. Breath sounds: No wheezing. Abdominal: General: There is no distension. Palpations: Abdomen is soft. Tenderness: There is no abdominal tenderness. There is no guarding. Musculoskeletal: General: Normal range of motion. Cervical back: Normal range of motion and neck supple. Right lower leg: No edema. Left lower leg: No edema. Skin: General: Skin is warm and dry. Neurological: General: No focal deficit present. Mental Status: He is alert and oriented to person, place, and time. Radiology:No orders to display Lab Results:Lab Results CBC WITH DIFF - Abnormal Result Value Ref Range WBC 8.36 4.20 - 10.70 10*3/?L RBC 4.28 4.26 - 5.52 10*6/?L HGB 10.3 (*) 12.2 - 16.4 g/dL HCT 31.8 (*) 38.4 - 49.3 % MCV 74.3 (*) 81.7 - 95.6 fL MCH 24.1 (*) 26.1 - 32.7 pg MCHC 32.4 31.2 - 35.0 g/dL RDW-SD 56.9 (*) 38.5 - 51.6 fL RDW-CV 21.3 (*) 12.1 - 15.4 % PLT 289 150 - 328 10*3/?L MPV 9.7 (*) 9.8 - 13.0 fL NRBC/100 WBC 0.0 0.0 - 10.0 /100 WBCs NRBC x10^3 <0.01 10*3/?L GRAN MAT (NEUT) % 55.0 % IMM GRAN % 0.20 % LYMPH % 22.5 % MONO % 13.0 % EOS % 8.5 % BASO % 0.8 % GRAN MAT x10^3(ANC) 4.59 1.99 - 6.95 10*3/uL IMM GRAN x10^3 <0.03 0.00 - 0.06 10*3/uL LYMPH x10^3 1.88 1.09 - 3.23 10*3/uL MONO x10^3 1.09 (*) 0.36 - 1.02 10*3/uL EOS x10^3 0.71 (*) 0.06 - 0.53 10*3/uL BASO x10^3 0.07 0.01 - 0.09 10*3/uL COMP. METABOLIC PANEL (82892) - Abnormal NA 137 135 - 145 mmol/L K 4.1 3.5 - 5.0 mmol/L CL 101 98 - 108 mmol/L CO2 TOTAL 28 23 - 31 mmol/L AGAP 8 2 - 16 BUN 27 (*) 7 - 23 mg/dL GLUCOSE 86 70 - 110 mg/dL CREATININE 1.00 0.60 - 1.25 mg/dL TOTAL BILI 0.4 0.1 - 1.1 mg/dL CALCIUM 9.2 8.6 - 10.6 mg/dL T PROTEIN 6.7 6.3 - 8.2 g/dL ALBUMIN 4.0 3.5 - 5.0 g/dL ALK PHOS 62 34 - 122 U/L ALTv 18 5 - 50 U/L AST(SGOT) 24 13 - 40 U/L eGFR 71.2 mL/min/1.73m2 MAGNESIUM - Normal MAGNESIUM 1.9 1.7 - 2.4 mg/dL TROPONIN I - Normal TROPONIN I 0.026 <=0.034 ng/mL EKG:If EKG completed, see Procedure Note. Orders and Treatments:Orders Placed This Encounter Procedures CBC WITH DIFF COMP. METABOLIC PANEL (40338) MAGNESIUM TROPONIN I No orders of the defined types were placed in this encounter.First Provider Eval:ED Events Date/Time Event User Comments 02/13/23811 Medical Screening Begins SIERRA COPELAND DO -- 02/13/23811 First Provider Evaluation SIERRA COPELAND DO -- No notes of EC Admission Criteria type on file.ED COURSEDiagnosis/Impression as of 02/13/23 1153 Malaise Procedures: ProceduresMDM:Medical Decision MakingThe patient presents from home with his for feeling like his pacemaker has been "bumping him" several times today. He did have some chest pressure earlier today when these episodes were occurring but has none presently. He denies feeling like his defibrillator has gone off. He denies any palpitations.Vital signs are stable in the ER.His heart is regular rhythm.His lungs are clear bilaterally.We will interrogate his pacemaker at bedside to see if he had any arrhythmias or abnormal beats that may be causing his symptoms.We will check laboratory studies including his electrolytes.Final disposition pending.1152 -the patient is doing well here in the ER.He had no arrhythmias noted on the monitor since arrival to the ER.His laboratory studies are unremarkable.After interrogating his pacemaker he was found to have 1 nonsustained episode of V. tach back in the end of December. He has had no arrhythmias since then.He remained stable here in the ER and is okay for discharge home with PCP follow-up.Problems Addressed:Malaise: acute illness or injuryAmount and/or Complexity of Data ReviewedLabs: ordered. Decision-making details documented in ED Course.ECG/medicine tests: ordered and independent interpretation performed. Decision-making details documented in ED Course. Flowsheet Documentation: Scoring Tools: No data recorded Disposition/Condition:ED Disposition ED Disposition Disch - Home Condition Stable Comment -- Discharge Medications:Patient's Medications START taking these medications No medications on file CONTINUE taking these medications which have NOT CHANGED AMIODARONE 200 MG TABLET amiodarone 200 mg tablet AMLODIPINE 2.5 MG TABLET 1 tablet ASPIRIN 325 MG TABLET Take 325 mg by mouth. BENZONATATE 100 MG CAPSULE Take 1 capsule by mouth 3 (three) times daily as needed for Cough. CLOPIDOGREL 75 MG TABLET DIGOXIN 250 MCG (0.25 MG) TABLET digoxin 250 mcg (0.25 mg) tablet FINASTERIDE 5 MG TABLET finasteride 5 mg tablet TAKE ONE TABLET BY MOUTH DAILY FLUTICASONE 27.5 MCG/ACTUATION NASAL SPRAY Use 2 Sprays in each nostril in the morning. FUROSEMIDE 40 MG TABLET furosemide 40 mg tablet LEVOTHYROXINE 100 MCG TABLET levothyroxine sodium 100 mcg tabs LOSARTAN 100 MG TABLET losartan 100 mg tablet METFORMIN 1,000 MG TABLET METOPROLOL TARTRATE 50 MG TABLET NITROGLYCERIN 0.4 MG SUBLINGUAL TABLET OXYBUTYNIN CHLORIDE 5 MG TABLET oxybutynin chloride 5 mg tablet SIMVASTATIN 20 MG TABLET simvastatin 20 mg tablet one at bedtime SITAGLIPTIN (JUNUVIA) 100 MG TABLET Januvia 100 mg tablet TAMSULOSIN 0.4 MG 24 HR CAPSULE WARFARIN 5 MG TABLET START taking Modified Medications as Prescribed No medications on file STOP taking these medications No medications on file Follow-up:Electronically signed by: Sierra Copeland DO02/13/23 1153 68164-7Hlnwixnuz Emergency department LmwiGJ2785-54-57B40:53:18Physician Emergency department NoteTXT1.2.840.512238.1.13.104.2.7.2.72 7879|[id number] for patient oqrk39892-0Yypwldhkm department [address] BzovFbhokbjvfRndtrnxubSIXD4822424293IBY GBTJXVVSFMMBUNYIEIF6683-21-43L50:53:181 .2.840.538831.1.72.3.15|1.2.840.059074. 1.13.104.2.7.2.727879_[id number] 2022-10-13 S969835493828923-53-16R55:54:00 [facility]:00 [facility] ([facility])Cardiology Progress NoteREPORT#:[id number] REPORT STATUS: SignedDATE:10/13/22 TIME: 05 PATIENT: COLE JEFFREY UNIT #: [id number]#: [id number] [facility]GE[facility] 82 SEX: M ATTEND: Ruiz Bhatti AUTHOR: Ruiz Bhatti MD * ALL edits or amendments must be made on the electronic/computer document * SubjectiveChief complaint:CHFPatient reports:No: chest pain, palpitations, shortness of breath. Objective GeneralVS/I O:24 hour I O ending at 0700: 03 0700 / 1900 Intake Total Output Total 450 Balance -450 Output, Urine 450 Vital Signs: Date Time Temp Pulse Resp B/P B/P Pulse O2 O2 Flow FiO2 Mean Ox Delivery Rate 10/12 2259 97.7 PATIENT WEIGHT: Weight (lb): Weight (oz): Weight (kg): Medications:Active Meds + DC'd Last 24 HrsAspirin (ASPIRIN EC) 81 MG DAILY PO Clopidogrel Bisulfate (PLAVIX) 75 MG DAILY PO Finasteride (PROSCAR) 5 MG DAILY PO Furosemide (LASIX) 40 MG DAILY PO Acetaminophen (TYLENOL EXTRA STRENGTH TAB) 500 MG Q4H PRN PRN PO Hydrocodone Bitart/Acetaminophen (NORCO 5/325 TABLET (C-II)) 1 TAB Q4H PRN PRN PO Cefazolin Sodium (ANCEF) 1 GM Q8H IV Sodium Chloride (SODIUM CHLORIDE 0.9%) 10 MLSimvastatin (ZOCOR) 20 MG BEDTIME PO Amlodipine Besylate (NORVASC) 2.5 MG DAILY PO Losartan Potassium (COZAAR) 100 MG DAILY PO Metoprolol Succinate (TOPROL XL) 25 MG DAILY PO Etomidate (AMIDATE) 0 .STK-MED ONE .ROUTE (DC) Fentanyl Citrate (SUBLIMAZE (C-II)) 0 .STK-MED ONE .ROUTE (DC) Midazolam HCl (VERSED (C-IV)) 0 .STK-MED ONE .ROUTE (DC) Sodium Chloride (SODIUM CHLORIDE 0.9%) 250 ML .STK-MED ONE IV (DC) Lidocaine (XYLOCAINE 1%) 0 .STK-MED ONE .ROUTE (DC) Midazolam HCl (VERSED (C-IV)) 0 .STK-MED ONE .ROUTE (DC) Lidocaine (XYLOCAINE 1%) 0 .STK-MED ONE .ROUTE (DC) Iopamidol (ISOVUE-300) 0 .STK-MED ONE .ROUTE (DC) Sodium Chloride (SODIUM CHLORIDE 0.9%) 250 ML .STK-MED ONE IV (DC) Cefazolin Sodium (ANCEF) 0 .STK-MED ONE .ROUTE (DC) Atropine Sulfate (ATROPINE SULFATE) 0 .STK-MED ONE .ROUTE (DC) Fentanyl Citrate (SUBLIMAZE (C-II)) 0 .STK-MED ONE .ROUTE (DC) Heparin Sodium (HEPARIN SODIUM) 0 .STK-MED ONE .ROUTE (DC) Lidocaine (XYLOCAINE 1%) 0 .STK-MED ONE .ROUTE (DC) Midazolam HCl (VERSED (C-IV)) 0 .STK-MED ONE .ROUTE (DC) Physical ExamGeneral appearance: alert, awake, orientedHead/Eyes: atraumatic, normocephalicENT: moist mucosal membranesNeck: no JVDCardiovascular: CV assessment: regular rate and rhythmRespiratory: clear to auscultation, no distressLower extremity: LE assessment: no edemaMusculoskeletal: full range of motionNeuro/HUMAN RESOURCES LEADER: alert, oriented X 3, CN II-XII intactSkin: dry, intactPsychiatry: normal affect, normal judgment/insight, normal mood ResultsFindings/Data:Laboratory Tests 10/12 1050 Chemistry Sodium (137 - 145 MMOL/L) 138 Potassium (3.5 - 5.1 MMOL/L) 4.6 Chloride (98 - 107 MMOL/L) 101 Carbon Dioxide (22 - 30 MMOL/L) 34 H Anion Gap (14 - 24 MMOL/L) 8 L BUN (9 - 20 MG/DL) 21 H Creatinine (0.66 - 1.25 MG/DL) 1.00 Glomerular Filtr Rate > 60 Glucose (74 - 106 MG/DL) 125 H Calcium (8.4 - 10.2 MG/DL) 9.0 Magnesium (1.6 - 2.3 MG/DL) 2.2 Laboratory Tests 10/12 1050 Coagulation INR (0.86 - 1.14) 1.2 H APTT (26.2 - 35.4 SECONDS) 38.3 H PT Patient/Control Mix (9.4 - 12.7 SECONDS) 13.4 H Laboratory Tests 10/12 1050 Hematology WBC (3.8 - 9.8 K/MM3) 6.9 RBC (3.95 - 5.67 M/MM3) 4.05 Hgb (12.4 - 16.7 G/DL) 8.7 L Hct (35.9 - 49.5 %) 28.3 L MCV (81.7 - 96.1 fL) 70 L MCH (27.6 - 33.2 pg) 21.5 L MCHC (32.9 - 35.5 %) 30.7 L RDW (12.1 - 15.2 %) 20.6 H Plt Count (129 - 368 K/MM3) 297 MPV (7.4 - 10.4 fl) 9.4 Neut % (Auto) (43 - 75 %) 57.3 Lymph % (Auto) (14 - 44 %) 25.0 Ocean % (Auto) (4 - 13 %) 13.1 H Eos % (Auto) (0 - 6 %) 3.6 Baso % (Auto) (0 - 2 %) 0.7 Neut # (Auto) (2.0 - 7.6 K/mm3) 3.94 Lymph # (Auto) (1.0 - 3.8 K/mm3) 1.72 Ocean # (Auto) (0.1 - 0.8 K/mm3) 0.90 H Eos # (Auto) (0.0 - 0.2 K/mm3) 0.25 H Baso # (Auto) (0.0 - 0.2 K/mm3) 0.05 Immature Gran % (0.0 - 2.0 %) 0.3 Nucleated RBC % (0 - 1.0 %) 0.0 Nucleated RBCs # (Man) (0.0 - 0.1 K/mm3) 0.00 Dohle Bodies (NONE) FEW Platelet Estimate (ADEQUATE) ADEQUATE Plt Morphology Comment (NORMAL) NORMAL Poikilocytosis (NONE) FEW Anisocytosis (NONE) MODERATE Microcytosis (NONE) MODERATE Ovalocytes (NONE) FEW Laboratory Tests 10/12 1050 Chemistry Magnesium (1.6 - 2.3 MG/DL) 2.2 Laboratory Tests 10/12 1050 Coagulation APTT (26.2 - 35.4 SECONDS) 38.3 H Radiology data:Recent Impressions:RADIOLOGY - XR CHEST 1V 10/13 1951 Report Impression - Status: SIGNED Entered: 10/12/20222031 IMPRESSION: Cardiomegaly with signs of moderate vascular congestion, mildpulmonary edema, and suspect trace left pleural effusion.Impression By: [email or web address] - Morgan Felix MD Diagnosis, Assessment Plan Free Text DxA P NotesFree Text DxA P Notes:IMP: 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 f/u 2 weeks. at 2139 RPT #:[id number] OF REPORTPRProgress [id number]:54:00Z.[id number] 032AVAvailable for patient vefdFIUMYDPLSKZICE9227-02-57X66:39:29 2022-10-13 [id number] [facility] 04:48:[address] [address] PATIENT NAME: COLE JEFFREY ADMIT DATE: 10/12/22ACCOUNT NO: [id number] ROOM NO: [facility] AGE: 82 REPORT TYPE: ELECTROCARDIOGRAM SEX: M ADMITTING PHYSICIAN:Ruiz Bhatti MD ATTENDING PHYSICIAN:Ruiz Bhatti MD Order:[id number] Reason : VT Test Date/Time Stamp:TueOct 13 2022 04:48:27Blood Pressure : / mmHGVent. Rate : 061 BPM Atrial Rate : 061 BPM P-R Int : 122 ms QRS Dur : 146 ms QT Int : 480 ms P-R-T Axes : 021 -65 057 degrees QTc Int : 483 ms Sinus rhythm with sinus arrhythmia with occasional AV dual-paced complexesRight bundle branch blockLeft anterior fascicular block Bifascicular block Septal infarct , age undeterminedAbnormal ECGWhen compared with ECG of 12-OCT-2022 20:10,premature ventricular complexes are no longer presentConfirmed by NONI MARQUEZ ([id number]) on 10/13/2022 4:15:08 PM Referred By: Ruiz Bhatti Confirmed by:NONI MARQUEZ at 1615 PATIENT NAME: COLE JEFFREY .[id number] for patient tbyuXRUSKEGDACQIMV0513-62-16W06:15:29 2022-10-12 [id number]:10:[id number] [facility] 20:10:[address] [place] [address] PATIENT NAME: COLE JEFFREY ADMIT DATE: 10/12/22ACCOUNT NO: [id number] ROOM NO: Z.348 AGE: 82 REPORT TYPE: ELECTROCARDIOGRAM SEX: M ADMITTING PHYSICIAN:Ruiz Bhatti MD ATTENDING PHYSICIAN:Ruiz Bhatti MD Order:[id number] Reason : VT Test Date/Time Stamp:TueOct 12 2022 20:10:19Blood Pressure : / mmHGVent. Rate : 060 BPM Atrial Rate : 060 BPM P-R Int : 256 ms QRS Dur : 130 ms QT Int : 492 ms P-R-T Axes : 000 -66 -39 degrees QTc Int : 492 ms AV dual-paced rhythm with prolonged AV conduction with occasional sinuscomplexes and with occasional premature ventricular complexesAbnormal ECGWhen compared with ECG of 12-OCT-2022 11:08,Electronic ventricular pacemaker has replaced Sinus rhythmConfirmed by NONI MARQUEZ ([id number]) on 10/13/2022 4:14:31 PM Referred By: Ruiz Bhatti Confirmed by:NONI MARQUEZ at 1614 PATIENT NAME: COLE JEFFREY .[id number] for patient ycvwBTAAKXQKHODUYU1224-04-73U52:14:49 2022-10-12 [id number] [facility] 19:02:[address] [address] PATIENT NAME: COLE JEFFREY ADMIT DATE: 10/12/22ACCOUNT NO: [id number] ROOM NO: Z.348 AGE: 82 REPORT TYPE: CARDIAC CATHETERIZATION REPORT SEX: M ADMITTING PHYSICIAN:Ruiz Bhatti MD ATTENDING PHYSICIAN:Ruiz Bhatti MD PROCEDURE DATE: 10/12/2022 PROCEDURES:1. Non-thoracotomy biventricular pacing AICD.2. Left ventricular lead placement.3. Defibrillation threshold testing. PREOPERATIVE DIAGNOSES:1. Ischemic cardiomyopathy with ejection fraction of 37%.2. Sustained ventricular tachycardia inducible at electrophysiology study.3. [place] Heart Association class III congestive heart failure.4. Bifascicular block with right bundle branch block and a QRS duration of 160 milliseconds. POSTOPERATIVE DIAGNOSES:1. Ischemic cardiomyopathy with ejection fraction of 37%.2. Sustained ventricular tachycardia inducible at electrophysiology study.3. [place] Heart Association class III congestive heart failure.4. Bifascicular block with right bundle branch block and a QRS duration of 160 milliseconds. SURGEON: Ruiz Bhatti MD LINUX DEVOPS ENGINEER: None. PROCEDURE IN DETAIL: After informed consent was obtained explaining to thepatient risks, benefits and alternatives, the patient was brought to the cardiaccatheterization lab in the fasting postabsorptive state. He was prepped anddraped in sterile fashion. A left subclavian venogram was obtained via the leftperipheral IV. Access to left subclavian vein was obtained using modifiedSeldinger technique and a micropuncture kit. Three wires were placed in lowright atrium and secured proximally. Additional 1% lidocaine was applied to theinfraclavicular area. A pocket was formed with sharp and blunt dissection aswell as electrocautery. The wires brought in the pocket. A 7-Mongolian sheath wasadvanced over one wire in left subclavian vein. The dilator and wire removed.An active fixation right ventricular lead was advanced via the sheath underfluoroscopic guidance and secured in the right ventricular apex in a septalposition to acquire adequate sensing. Adequate pacing and sensing wasconfirmed. The sheath was peeled away. The lead was secured in the pocket with0 Ethibond suture around the suture sleeve. A 10-Mongolian sheath was advancedover a second wire in left subclavian vein. The dilator and wire removed. Acoronary sinus guide sheath was advanced over an AL2, which was advanced over a PATIENT NAME: COLE JEFFREY Wholey wire. The Wholey wire was placed in the coronary sinus. The AL2 wasadvanced over the wire and sheath advanced over the AL2. The AL2 and wireremoved. The sheath was aspirated and flushed. A coronary sinus venogram wasobtained via the sheath. A quadripolar shaped left ventricular lead wasadvanced over a Whisper wire into a left lateral coronary sinus branch.Adequate pacing and sensing parameters were confirmed. The guide sheath wassplit and peeled away. A 10-Mongolian sheath was split and peeled away. The leadwas secured in the pocket with 0 Ethibond suture around the suture sleeve. A6-Mongolian sheath was advanced over the remaining wire in left subclavian vein.The dilator and wire removed. An active fixation right atrial lead was advancedvia the sheath under fluoroscopic guidance and secured in the right atrialappendage. Adequate pacing and sensing parameters were confirmed. The sheathwas peeled away. The lead was secured in pocket with 0 Ethibond suture aroundthe suture sleeve. The pocket was flushed with antibiotic-containing solution.Linda was applied to the pocket. The generator was connected to the leads.The generator and leads were placed in the pocket and secured in pocket with 0Ethibond suture. Defibrillation threshold testing was carried out as outlinedbelow. The pocket was closed in 3 layers using 2-0 Vicryl with subcutaneouslayers and 4-0 Vicryl for the skin. Steri-Strips were applied to the woundexternally. The patient tolerated the procedure well with no complications. IMPLANT DATA:1. Pulse generator, St. Wing model RLIPD960Y, serial #[id number]. Right atrial lead, [employer]. Wing model 2088TC/52, serial #[id number]. Right ventricular lead, [employer] Wing model 7122Q/58, serial #[id number]. Left ventricular lead, St. Wing model 1458Q/86, serial #[id number]. STIMULATION THRESHOLD DATA:1. Right atrium 1.8 millivolt P waves, impedance 424 ohms, threshold 0.7 voltsat 0.4 milliseconds.2. Right ventricle 5.6 millivolt R waves, impedance 850 ohms, threshold 0.6volts at 0.4 milliseconds.3. Left ventricular lead, impedance 929 ohms, threshold less than 2 volts,pulse width 0.4 milliseconds (threshold 1 volt at 0.4 milliseconds via thedevice). DEFIBRILLATION THRESHOLD TESTING: Induction with DC fibber. Energy 30 joules,charge time 6.1 seconds, result sinus rhythm. The patient tolerated theprocedure well with no complications. CONCLUSION: Successful non-thoracotomy biventricular pacing AICD placement. ESTIMATED BLOOD LOSS: 10 mL. COMPLICATIONS: No complications. Dictated By: Ruiz Bhatti MD Date Dictated: 10/12/2022 19:02:52Date Transcribed: 10/12/2022 20:22:48GSP/ANGELLABarblisbet #: [id number] ID: [id number] PATIENT NAME: COLE JEFFREY CC:Noni Marquez MD (F)Authenticated and Edited by Ruiz Bhatti MD On 10/14/22 6:32:25 AM at 0635 PATIENT NAME: COLE JEFFREY ljez7530-30-19X57:22:00Z.[id number] 21AVAvailable for patient unkfKFOWSHBNMXVEIT3986-11-51P94:35:53 2022-10-12 [id number]:12:[id number] [facility]00 [address] [place] [address] PATIENT NAME: COLE JEFFREY ADMIT DATE: 10/12/22ACCOUNT NO: [id number] ROOM NO: AGE: 82 REPORT TYPE: CARDIAC CATHETERIZATION REPORT SEX: M ADMITTING PHYSICIAN: ATTENDING PHYSICIAN:Ruiz Bhatti MD PROCEDURE DATE: 10/12/2022 PROCEDURE: Comprehensive electrophysiology study with attempted induction. PREPROCEDURE DIAGNOSES:1. Ischemic cardiomyopathy with ejection fraction 37% by gated SPECT imaging.2. [place] Heart Association class III congestive heart failure.3. Bifascicular block with QRS duration of 164 ms, right bundle-branch block/left anterior fascicular block.4. Coronary artery disease.5. Status post aortocoronary bypass. POSTPROCEDURE DIAGNOSES:1. Ischemic cardiomyopathy with ejection fraction 37% by gated SPECT imaging.2. [place] Heart Association class III congestive heart failure.3. Bifascicular block with QRS duration of 164 ms, right bundle-branch block/left anterior fascicular block.4. Coronary artery disease.5. Status post aortocoronary bypass. DOG SITTER: Dr. Bhatti ANESTHESIA: Local anesthesia with 1% lidocaine and moderate sedation. DESCRIPTION OF PROCEDURE: After informed consent was obtained explaining to thepatient risks, benefits and alternatives, the patient was brought to the cardiaccatheterization lab in the fasting postabsorptive state. He was prepped and draped in sterile fashion. Local anesthesia was applied over the right femoral vein with 1% lidocaine. Access to the vein was obtained using modified Seldinger technique with a micropuncture kit and ultrasound guidance. Two 6-Mongolian sheaths and one 7-Mongolian sheath were placed in the right femoral vein. Sheaths were aspirated and flushed and connected to heparinized saline infusion. One 6-Mongolian sheath was exchanged for an 8-Mongolian sheath to accommodate a deflectable quadripolar catheter. The deflectable quadripolar catheter was advanced via the 8-Mongolian sheath and placed in the right ventricular apex. A 6-Mongolian Cournand catheter was advanced via the sheath and placed in the His position. A 5-Mongolian Cristin catheter was advanced via the 6-Mongolian sheath andplaced in the high right atrium. Program stimulation was performed. FINDINGS: Baseline intervals AA 1285 ms, VV 1283 ms, RR 1283 ms, AH 187 ms, HV 40 ms, QT 547 ms, QRS 164 ms. PATIENT NAME: COLE JEFFREY VA block is 650 ms. AV block 470 ms. Effective refractory period: 270 ms at 600 ms, 260 ms at 500 ms, 260 ms at 400 ms. Sustained ventricular tachycardia was inducible with 3 extrastimuli from the right ventricular apex at 400/250/200 ms. V-tach cycle length 209 ms. The patient was successfully resuscitated with 360 joule biphasic shock. The patient tolerated the procedure well with no complications. The patient remained hemodynamically stable. PLAN: The patient is to undergo placement of a non-thoracotomy biventricular pacing AICD. CONCLUSION: Inducible VT with 3 extrastimuli from the right ventricular apex. ESTIMATED BLOOD LOSS: Negligible No complications. Dictated By: Ruiz Bhatti MD Date Dictated: 10/12/2022 15:12:10Date Transcribed: 10/12/2022 16:25:16VI/ANNALISAVJolisbet #: [id number] ID: [id number] CC:Noni Marquez MD ([place])Authenticated by Ruiz Bhatti MD On 10/12/2022 07:03:23 PM at 0703 PATIENT NAME: COLE JEFFREY [id number]:25:00Z.[id number] 07AVAvailable for patient jyrvBKKOBOMEEPCEES1578-84-15B48:03:49 2022-10-12 [id number] [facility] 11:08:00 [address] [place] [address] PATIENT NAME: COLE JEFFREY ADMIT DATE: 10/12/22ACCOUNT NO: [id number] ROOM NO: [facility] AGE: 82 REPORT TYPE: ELECTROCARDIOGRAM SEX: M ADMITTING PHYSICIAN:Ruiz Bhatti MD ATTENDING PHYSICIAN:Ruiz Bhatti MD Order:[id number] Reason : VENTRICULAR TACHYCARDIA Test Date/Time Stamp:TueOct 12 2022 11:08:37Blood Pressure : / mmHGVent. Rate : 056 BPM Atrial Rate : 056 BPM P-R Int : 220 ms QRS Dur : 164 ms QT Int : 520 ms P-R-T Axes : -26 -55 102 degrees QTc Int : 501 ms Sinus bradycardia with 1st degree AV block with premature atrial complexes withaberrant conductionRight bundle branch blockLeft anterior fascicular block Bifascicular block Left ventricular hypertrophy with repolarization abnormalityAbnormal ECGWhen compared with ECG of 09-OCT-2022 06:20,premature ventricular complexes are no longer presentConfirmed by NONI MARQUEZ ([id number]) on 10/12/2022 7:45:22 PM Referred By: Self Referred Confirmed by:NONI MARQUEZ at 1945 PATIENT NAME: COLE JEFFREY .[id number] for patient aqtcHDXIKWJPHOWVKK5109-08-27Q59:45:43 2022-10-09 [id number]:[id number] [facility] 09:10:00 6 [facility] [id number] [place] [address] PATIENT NAME: COLE JEFFREY ADMIT DATE: 10/09/22ACCOUNT NO: [id number] ROOM NO: AGE: 82 REPORT TYPE: OPERATIVE REPORT SEX: M ADMITTING PHYSICIAN: ATTENDING PHYSICIAN: Noni Marquez MD Cardiology OPERATION DATE: 10/09/2022 TITLE OF PROCEDURE:1. Left heart catheterization.2. Vein grafts x3.3. DICKENS angiogram.4. Sealing device. INDICATION FOR THE PROCEDURE: Angina, coronary artery disease, previous bypass x4, cardiomyopathy. ESTIMATED BLOOD LOSS: Minimal. COMPLICATIONS: None. ESTIMATED BLOOD LOSS: 150 mL ANESTHESIA: Conscious sedation with Versed and fentanyl and 1% lidocaine for local anesthesia. FINAL DIAGNOSES: Severe deering coronary artery disease, calcified arteries, patent vein graft x3, patent DICKENS to the LAD, moderate disease of the vein grafts, cardiomyopathy, ejection fraction 40%. Elevated left ventricular end-diastolic pressure. Frequent PVCs. The recommendation is medical therapy and the patient is already set up for EP evaluation and possible AICD. DESCRIPTION OF PROCEDURE: After informed consent, the patient was brought to the cardiac catheterization lab in a stable fasting nonsedated state. He was prepped and draped in the usual sterile fashion. After conscious sedation, 1% lidocaine was administered to the right common femoral artery area for local anesthesia. A 6-Mongolian sheath was placed in the right common femoral artery using standard techniques and fluoroscopy. After heparinization left coronary angiogram showed severe deering coronary artery disease. The left main 80% distal heavily calcified. The LAD starts off with 95% and then occludes 100% and then has a 90% after the first diagonal. The circumflex starts off with 80 and then 99% lesion calcified. The ramus is very small, 90% mid lesion that goes through the tight left main and the critical disease at the trifurcation. Right coronary angiogram starts off with 95%, then 100% occluded. The vein grafts were easily obtained. The vein graft to the first diagonal has a 45% proximal, 50% distal, but it is patent with good flow. The vein graft to the PATIENT NAME: COLE JEFFREY obtuse marginal 2 starts off with a 55% and then it is patent with good flow. Vein graft to the right has a 60% proximal, but it is patent. Left ventricular angiogram showed ejection fraction around 40%, frequent PVCs, severe inferoposterior hypokinesis, elevated left ventricular end-diastolic pressure of26, no aortic valve gradient. The right groin was sealed using Angio-Seal. There were no complications. The patient tolerated the procedure well. The patient will be treated medically and he is already set up for electrophysiologyevaluation and for ablation of his PVCs and ventricular tachycardia or AICD. Rest as per orders. The patient's groin was sealed using Angio-Seal. He tolerated the procedure well. He was transferred back to the holding area for observation. Dictated By: Noni Marquez MD Date Dictated: 10/09/2022 09:10:22Date Transcribed: 10/09/2022 09:49:41SFD/SYEJob #: [id number] ID: [id number] CC:Ruiz BhattiAuthenticated by Noni Marquez MD On 10/09/2022 10:41:07 AM at 1041 PATIENT NAME: COLE JEFFREY uandny6920-87-02P38:49:00L.[id number] 0006AVAvailable for patient dxlyJJRHIWADFFCFNH9981-73-54F10:41:46 2022-10-09 [id number] [facility] 06:20:00 2 [facility] [address] [place] [address] PATIENT NAME: COLE JEFFREY ADMIT DATE: 10/09/22ACCOUNT NO: [id number] ROOM NO: AGE: 82 REPORT TYPE: eELECTROCARDIOGRAM SEX: M ADMITTING PHYSICIAN: ATTENDING PHYSICIAN: Noni Marquez MD Order:[id number] Reason : I25.19 Test Date/Time Stamp:TueOct 09 2022 06:20:47Blood Pressure : / mmHGVent. Rate : 049 BPM Atrial Rate : 049 BPM P-R Int : 216 ms QRS Dur : 168 ms QT Int : 526 ms P-R-T Axes : 059 -54 102 degrees QTc Int : 475 ms Sinus bradycardia with 1st degree AV block with occasional premature ventricularcomplexes and premature atrial complexesRight bundle branch blockLeft anterior fascicular block Bifascicular block Left ventricular hypertrophy with repolarization abnormality ( R in aVL )Abnormal ECGWhen compared with ECG of 28-SEP-2021 13:26,premature ventricular complexes are now presentpremature atrial complexes are now presentCriteria for Anterior infarct are no longer presentT wave inversion less evident in Lateral leadsConfirmed by NONI MARQUEZ ([id number]) on 10/09/2022 6:24:12 AM Referred By: Noni Marquez Confirmed by:NONI MARQUEZ at 0624 PATIENT NAME: COLE JEFFREY .[id number] for patient nyelGSCFFIVKWXEGVS5782-15-17W07:24:38 2022-10-07 [id number] [facility] 07:49:[address] [place] [address] PATIENT NAME: COLE JEFFREY ADMIT DATE: ACCOUNT NO: [id number] ROOM NO: AGE: 82 REPORT TYPE: HISTORY AND PHYSICAL SEX: M ADMITTING PHYSICIAN: ATTENDING PHYSICIAN: Noni Marquez MD Cardiology PATIENT NAME: COLE JEFFREY ADMIT DATE:10/09/2022DMISSION DATE: 10/09/2022 09:00:00 ADMITTING MEMBER SERVICES COORDINATOR: Noni Marquez MD REASON FOR ADMISSION: Cardiac catheterization and graft angiography forsymptomatic coronary artery disease and worsening cardiomyopathy andarrhythmias. HISTORY OF PRESENT ILLNESS: Cole is an 82-year-old patient with extensivecardiac history detailed below, who recently been having worsening symptoms ofchest pains, dyspnea, angina and arrhythmias. On his recent Holter monitor, laurence had 21% PVCs and episode of ventricular tachycardia. He had on the nuclearstress test, ejection fraction of 37%, but he had a lot of PVCs, but theejection fraction was in the low 50s before. On the echocardiogram, there was achange in his ejection fraction down to 45-50%, rather than the low 50s in thepast with worsening symptoms of chest pains, angina and dyspnea. He underwent aquadruple bypass on 03/31/2021 with DICKENS to the LAD, vein graft to the diagonal,obtuse marginal, and the right PDA. He has done well until recently when hissymptoms started getting worse, so there is a concern about the graft occlusionor progression of his deering coronary artery disease. The patient will needfurther electrophysiology evaluation. He has been seen by Electrophysiology andis scheduled for evaluation, but his coronaries are being checked this admissionand his graft patency was checked prior to proceeding with that. His lastcardiac catheterization was on 03/28/2021 that showed 55% left main, 90% ostialcircumflex and diffuse distal circumflex disease. The right coronary artery wasoccluded. The diagonal was 99%, the LAD itself was 55% proximal and he had a90% ramus intermedius. Ejection fraction was 55% at the time. His last carotidDoppler showed less than 50% disease. His echocardiogram and nuclear stresstest as well as a Holter monitor were described above. There is no history ofcongestive heart failure, TIAs or strokes. He has had history of atrialfibrillation and atrial flutter in the past, and has had cardioversion by before, and he has done well from that standpoint. PAST MEDICAL HISTORY: Remarkable for hypertension, dilated ascending aorta,cardiomegaly, hyperlipidemia, diabetes, benign prostatic hyperplasia, skincancer, vitamin B12 deficiency, and allergies. 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 No other recent history is done, what is stated above. ALLERGIES: CEPHALEXIN CAUSES A RASH. PATIENT NAME: COLE JEFFREY MEDICATIONS: Include metformin, which is on hold, simvastatin 20 mg daily,aspirin 81 mg daily, clopidogrel 75 mg daily, losartan 100 mg daily, nwtlppxzuj54 mg daily, amlodipine 2.5 mg daily, warfarin is on hold, finasteride 1 tabletdaily and magnesium oxide twice a day. He also takes tamsulosin, famotidine 20mg twice a day. SOCIAL HISTORY: There is no history of any recent smoking. There is no historyof alcohol or street drug use. The patient is accompanied by his . FAMILY HISTORY: Positive for atherosclerotic cardiovascular disease. REVIEW OF SYSTEMS: Remarkable for the above, in addition to allergies,decreased hearing, dry mouth, easy bruisability, arthritis symptoms, balancedifficulties at times for which he requires the ambulation with a cane. Noacute GI or symptoms. No TIAs or strokes. PHYSICAL EXAMINATION:GENERAL: Reveals a pleasant elderly male in no acute distress.VITAL SIGNS: Blood pressure 140/63, pulse is 45, but mainly PVCs, respiratoryrate 18 and unlabored, temperature afebrile.HEENT: Head atraumatic, normocephalic. Eyes, ENT examination within normal forage.NECK: Supple, no jugular venous distention, bruits or lymphadenopathy. Normalupstroke.LUNGS: Clear and resonant.HEART: Regular rate and rhythm with frequent PVCs. A 2/6 systolic ejectionmurmur at the left lower sternal border. No gallops. The heart is enlarged andbradycardic.ABDOMEN: Soft, obese. No tenderness, no organomegaly, no masses or bruits.EXTREMITIES: 1+ distal pulses, 2+ edema. No cyanosis or clubbing.NEUROLOGIC: Alert and oriented x3. Examination appears to be nonfocal. LABORATORY DATA: Pending. Noninvasive cardiovascular workup and previousinvasive cardiovascular workup was described in detail above and enclosed. IMPRESSION: This is an 82-year-old patient with extensive cardiac historydetailed above, who is having worsening symptoms of arrhythmias, depressedejection fraction. He had a quadruple bypass on 03/31/2021, the patency ofwhich will be determined this admission. PLAN: The recommendation is to proceed with the above-mentioned indicatedprocedures. The risks and benefits of the planned procedure were discussed indetail with the patient and , and he is willing to proceed. Rest as perorders. Dictated By: Noni Marquez MD Date Dictated: 10/07/2022 07:49:39Date Transcribed: 10/07/2022 10:08:33SFD/TULJob #: [id number] PATIENT NAME: COLE JEFFREY Receipt ID: [id number] and Edited by Noni Marquez MD On 10/08/22 8:31:42 AM at 0833 PATIENT NAME: COLE JEFFREY and physical kuhuqgeuerq8485-12-34T07:08:00L.[id number] for patient lcjqPTVJWIVLTYFEVI8422-50-06C08:34:13 2021-09-28 [id number]:41:[id number] [facility] 16:41[facility]00 [address] [place] [address] PATIENT NAME: COLE JEFFREY ADMIT DATE: 09/28/21ACCOUNT NO: [id number] ROOM NO: AGE: 81 REPORT TYPE: eTRANSESOPHAGEAL ECHO SEX: M ADMITTING PHYSICIAN: ATTENDING PHYSICIAN:Ruiz Bhatti MD *[facility]*[address] [place], [place] [address]Phone Transesophageal Echocardiogram Patient: Cole Jeffreytudy Date: 09/28/2021 BP: 125 / 71 Location: COCWUURN: [id number] : 1940 Age: 81 Height: 71 in / 180.3 cmAccession#: [id number] Gender: M Weight: 265 lb / 120.5 kgBMI/BSA: 37 kg/m 2 / 2.5 m 2 *Ordering Physician: * Ruiz Bhatti MD *Interpreting Physician: * Ruiz Bhatti MD*Drawer Maker: * Andreina Veronique [place], [facility] Indica tions: Cardioversion. Study data: Consent: The risks, benefits, and alternatives to theprocedure were explained to the patient and informed consent wasobtained. Procedure: Initial setup: [facility].Intravenous access was obtained. SurfaceECG leads and pulse oximetric signals were monitored. Sedation. Moderatesedation was administered by cardiology staff. Transesophagealechocardiography was performed. Topical anesthesia was obtained usingviscous lidocaine. A transesophageal probe (SN: [id number]) was inserted bythe attending technology solutions architect without difficulty. Images were obtainedusing a [employer] cardiac ultrasound machine. Image quality was adequate. 2D,complete spectral Doppler, and color Doppler. Location:Catheterization laboratory. Patient status: Outpatient. [facility]number[facility]. Study status: Scheduled. Study completion: The patienttolerated the procedure well. There were no complications. PATIENT NAME: COLE JEFFREY [id number] [place] [address] PATIENT NAME: COLE JEFFREY ADMIT DATE: 09/28/21ACCOUNT NO: [id number] ROOM NO: AGE: 81 REPORT TYPE: eTRANSESOPHAGEAL ECHO SEX: M ADMITTING PHYSICIAN: ATTENDING PHYSICIAN:Ruiz Bhatti MD Findin Left ventricle: The cavity size is normal. Systolic function is normal.Right ventricle: The cavity size is normal. Systolic function isnormal.Ventricular septum: The ventricular septum is normal.Left atrium: The atrium is normal in size. The appendage is of normalsize. Emptying velocity is normal. There is no evidence of a thrombusin the atrial cavity or appendage. No spontaneous echo contrast isobserved.Right atrium: The atrium is normal in size. There is no evidence of athrombus in the atrial cavity or appendage.Atrial septum: No defect or patent foramen ovale is identified.Aorta: The aorta is mildly calcified and mildly diseased.Aortic valve: The valve is structurally normal. The valve istrileaflet. Cusp separation is normal. There is no evidence ofstenosis. There is no regurgitation.Mitral valve: The valve is structurally normal. There is mildregurgitation, with multiple jets.Tricuspid valve: The valve is structurally normal. There is nosignificant regurgitation.Pulmonic valve: The valve is structurally normal. There is noregurgitation.Pericardium: There is no pericardial effusion. Conclu sions Summary: 1. Left ventricle: The cavity size is normal. Systolic function is normal.2. Left atrium: There is no evidence of a thrombus in the atrial cavity or appendage. No spontaneous echo contrast is observed.3. Mitral valve: There is mild regurgitation, with multiple jets. Prepared and electronically signed by PATIENT NAME: COLE JEFFREY [id number] [address] PATIENT NAME: COLE JEFFREY ADMIT DATE: 09/28/21ACCOUNT NO: [id number] ROOM NO: AGE: 81 REPORT TYPE: eTRANSESOPHAGEAL ECHO SEX: M ADMITTING PHYSICIAN: ATTENDING PHYSICIAN:Ruiz Bhatti MD, Gregory MD09/28/2021 16:41 at 1641 PATIENT NAME: COLE JEFFREY oqaeupq7695-68-69Y11:41:00Z.[id number] -[id number] for patient urywUMNFMPLHGYQINL0669-51-59T44:41:48 2021-09-28 [id number] [facility] 13:23:00 [address] [place] [address] PATIENT NAME: COLE JEFFREY ADMIT DATE: 09/28/21ACCOUNT NO: [id number] ROOM NO: AGE: 81 REPORT TYPE: CARDIAC CATHETERIZATION REPORT SEX: M ADMITTING PHYSICIAN: ATTENDING PHYSICIAN:Ruiz Bhatti MD PROCEDURE DATE: 09/28/2021 PREPROCEDURE DIAGNOSIS: Atrial fibrillation/atrial flutter. POSTPROCEDURE DIAGNOSIS: Atrial fibrillation/atrial flutter. PROCEDURE: Cardioversion. DOG SITTER: Ruiz Bhatti MD ANESTHESIA: Deep sedation with intravenous etomidate. PROCEDURE IN DETAIL: After informed consent was obtained explaining to thepatient the risks, benefits, and alternatives, the patient was brought to thecardiac catheterization holding area in the fasting post-absorptive state. Following a transesophageal echocardiogram, which verified no intracardiacthrombus, a single 100 joule biphasic shock was applied via anterior and apicaldefibrillation pads. This resulted in sinus rhythm. The patient tolerated theprocedure well with no complications. CONCLUSIONS:1. Successful cardioversion.2. No complications. Dictated By: Ruiz Bhatti MD WT: CATH:DARY/PEPGR/NTSDD: 09/28/2021 13:23:05DT: 09/28/2021 13:44:29Conf#: [id number]/DID#: [id number] Authenticated by Ruiz Bhatti MD On 09/28/2021 02:28:22 PM at 0228 PATIENT NAME: COLE JEFFREY fpag3822-18-75M58:44:00Z.[id number] 12AVAvailable for patient ofumOIWFLTPXGRYNPL9108-94-74R16:41:11 2021-09-28 [id number]:52:[id number] [facility] 12:52:00 [address] [place] [address] PATIENT NAME: COLE JEFFREY ADMIT DATE: 09/28/21ACCOUNT NO: [id number] ROOM NO: AGE: 81 REPORT TYPE: ELECTROCARDIOGRAM SEX: M ADMITTING PHYSICIAN: ATTENDING PHYSICIAN:Ruiz Bhatti MD Order:[id number] Reason : POST/CARDIOVERSION Test Date/Time Stamp:TueSep 28 2021 12:52:51Blood Pressure : / mmHGVent. Rate : 078 BPM Atrial Rate : 078 BPM P-R Int : 080 ms QRS Dur : 154 ms QT Int : 480 ms P-R-T Axes : 000 -67 -81 degrees QTc Int : 547 ms Sinus rhythm with sinus arrhythmia with short PRLeft axis deviationRight bundle branch blockInferior infarct , age undeterminedAnteroseptal infarct , age undeterminedT wave abnormality, consider lateral ischemiaAbnormal ECGWhen compared with ECG of 28-SEP-2021 10:32,Significant changes have occurredConfirmed by NONI MARQUEZ ([id number]) on 09/28/2021 1:38:41 PM Referred By: Ruiz Bhatti Confirmed by:NONI MARQUEZ at 1450 PATIENT NAME: COLE JEFFREY .TAV832 [id number] for patient clhsJKSGOUUXZCFUGB5896-32-08X10:39:16 2021-09-28 [id number]:32:[id number] [facility] 10:32:00 [address] [place] [id number] PATIENT NAME: COLE JEFFREY ADMIT DATE: 09/28/21ACCOUNT NO: [id number] ROOM NO: AGE: 81 REPORT TYPE: ELECTROCARDIOGRAM SEX: M ADMITTING PHYSICIAN: ATTENDING PHYSICIAN:Ruiz Bhatti MD Order:[id number] Reason : AFLUTTER Test Date/Time Stamp:TueSep 28 2021 10:32:27Blood Pressure : / mmHGVent. Rate : 077 BPM Atrial Rate : 093 BPM P-R Int : 000 ms QRS Dur : 184 ms QT Int : 498 ms P-R-T Axes : 000 025 074 degrees QTc Int : 563 ms Atrial fibrillationRight bundle branch blockAbnormal ECGWhen compared with ECG of 02-JUN-2021 07:59,Left anterior fascicular block is no longer presentT wave inversion now evident in Anterior leadsConfirmed by NONI MARQUEZ ([id number]) on 09/28/2021 1:38:22 PM Referred By: Ruiz Bhatti Confirmed by:NONI MARQUEZ at 1338 PATIENT NAME: COLE JEFFREY .[id number] for patient imjoZYCZDZFYDQFBED8918-92-71Y02:38:56 2021-06-04 [id number]:44:00 [facility] 22:44:00 [facility] ([facility])Discharge SummaryREPORT#:[id number] REPORT STATUS: SignedDATE:06/04/21 TIME: 2243 PATIENT: COLE JEFFREY UNIT #: [id number]#: [id number] ROOM/BED: [facility]-ADOB: [birth year] AGE: 81 SEX: M ATTEND: Marcello Garvin AUTHOR: Heladio Godoy MD * ALL edits or amendments must be made on the electronic/computer document * General InformationProblem List/A P: 1. Pleural effusion, left 2. Diabetes 3. Hypertension 4. Coronary artery disease 5. Hyperlipidemia 6. Hypothyroidism 7. Benign prostatic hyperplasia Discharge date: 06/02/21Hospital course:81 years old male patient with a past medical history of diabetes mellitus, atrial fibrillation, hypertension state post left thoracentesis.Procedure was hjsctukqhi1586 mL was removedpost operatory was uneventful.repeat CXR wo effusionpatient discharged Med Rec Med RecDischarge meds:Stop taking the following medications:AMIODARONE (CORDARONE) 200 MG TAB 400 MILLIGRAM ORAL TWICE DAILY. Days = 30 Qty = 120 Continue taking these medications:Multivitamins W-Minerals (Multivitamin And Minerals) 1 TAB TABLET 1 TABLET ORAL DAILY. HONEY (PeerReachNEY) 100 % PASTE..ML. 1 APPLICATOR TOPICAL DAILY. as needed for WOUND CARE Days = 30 Qty = 1 WARFARIN (COUMADIN) 2.5 MG TAB 2.5 MILLIGRAM ORAL EVERY EVENING. Days = 30 Qty = 30 amLODIPine (NORVASC) 10 MG TAB 10 MILLIGRAM ORAL DAILY. Days = 30 Qty = 30 TAMSULOSIN ER (FLOMAX) 0.4 MG CAP.SR.24H 0.4 MILLIGRAM ORAL TWICE DAILY. Days = 30 Qty = 60 CLOPIDOGREL (PLAVIX) 75 MG TAB 75 MILLIGRAM ORAL DAILY. Days = 30 Qty = 30 FERROUS SULFATE (FEOSOL) 325 MG TAB 325 MILLIGRAM ORAL TWICE DAILY. Days = 30 Qty = 60 ATORVASTATIN (LIPITOR) 40 MG TAB 80 MILLIGRAM ORAL BEDTIME. Days = 30 Qty = 60 DIGOXIN (LANOXIN) 250 MCG TAB 0.25 MILLIGRAM ORAL DAILY. Days = 30 Qty = 30 LOSARTAN (COZAAR) 100 MG TAB 100 MILLIGRAM ORAL DAILY. Days = 30 Qty = 30 METOPROLOL TARTRATE (LOPRESSOR) 50 MG TAB 50 MILLIGRAM ORAL EVERY 12 HOURS. Days = 30 Qty = 60 ASPIRIN EC (ECOTRIN) 81 MG TAB.EC 81 MILLIGRAM ORAL DAILY. Days = 30 Qty = 30 FAMOTIDINE (PEPCID) 20 MG TAB 20 MILLIGRAM ORAL TWICE DAILY. Days = 30 Qty = 60 LEVOTHYROXINE (SYNTHROID) 100 MCG TAB 100 MICROGRAM ORAL DAILY. Days = 30 Qty = 30 metFORMIN ER (FORTAMET) 1,000 MG TAB.SR.24H 1,000 MILLIGRAM ORAL TWICE DAILY. Days = 30 Qty = 60 sitaGLIPtin (JANUVIA) 100 MG TAB 100 MILLIGRAM ORAL DAILY. Days = 30 Qty = 30 OXYBUTYNIN (DITROPAN) 5 MG TAB 5 MILLIGRAM ORAL BEDTIME. Qty = 30 FINASTERIDE (PROSCAR) 5 MG TAB 5 MILLIGRAM ORAL DAILY. Qty = 30 Start taking the following new medications:AMIODARONE (CORDARONE) 200 MG TAB 200 MILLIGRAM ORAL TWICE DAILY. Qty = 60 Refills = 2 ObjectiveVS/I OLast Documented: Result Date Time Pulse Ox 95 06/02 1620 Pulse 78 06/02 1620 Resp 30 06/02 1620 Temp 36.3 06/02 1604 B/P 107/76 06/02 1600 B/P Mean 88 06/02 1600 O2 Delivery Nasal cannula 06/02 0800 O2 Flow Rate 3 06/02 0800 PATIENT WEIGHT: Weight (lb): 255Weight (oz): 8.57Weight (kg): 115.909 General appearance: alert, awake, orientedHead/Eyes: atraumatic, normocephalicENT: moist mucosal membranesNeck: full range of motionCardiovascular: sinus on teleRespiratory: no distress, no accessory muscle usage seenAbdomen/GI: distendedGenitourinary: no foleyExtremities: moves allNeuro/HUMAN RESOURCES LEADER: alert, oriented X 3, normal speech, no motor deficitsPsychiatry: normal mood Discharge Instructions PCP)( Discharge to: Home/Self Care Discharge InstructionsAdditional Discharge Routines: PCP Follow-Up, Attending Follow-Up, Poiser Balance Follow-Up, Add. instructions)( Diet: Diabetic, Cardiac)( Additional instructions:none Follow-up AppointmentsPCP follow up: PCP: Noni Marquez MD PCP follow up timeframe: In 2-3 weeksAttending Physician: Attending Physician: Marcello Garvin MD Attending physician follow up timeframe: In 1-2 weeks Special instructions:Please call the office to schedule a post op visit. You will to have a CXR done prior to your office visit at 6269 RPT #:[id number] OF REPORTDSDischarge qzcokir2737-31-58G46:44:00Z.[id number] for patient khfqMPGYMBQXWSEZQF2314-54-48Z45:45:40 2021-06-02 [id number]:59:[id number] [facility] 07:59:00 [address] [place] [address] PATIENT NAME: COLE JEFFREY ADMIT DATE: 06/01/21ACCOUNT NO: [id number] ROOM NO: Z.350 AGE: 81 REPORT TYPE: ELECTROCARDIOGRAM SEX: M ADMITTING PHYSICIAN:Marcello Garvin MD ATTENDING PHYSICIAN:Marcello Garvin MD Order:[id number] Reason : CAD Test Date/Time Stamp:TueJun 02 2021 07:59:09Blood Pressure : / mmHGVent. Rate : 076 BPM Atrial Rate : 214 BPM P-R Int : 000 ms QRS Dur : 176 ms QT Int : 500 ms P-R-T Axes : 000 -59 092 degrees QTc Int : 562 ms Atrial fibrillationRight bundle branch blockLeft anterior fascicular block Bifascicular block Abnormal ECGWhen compared with ECG of 01-JUN-2021 20:36,T wave inversion no longer evident in Anterior leadsQT has lengthenedConfirmed by NONI MARQUEZ ([id number]) on 06/02/2021 2:05:48 PM Referred By: Marcello Gravin Confirmed by:NONI MARQUEZ at 140 PATIENT NAME: COLE JEFFREY .[id number] for patient afiwFXGULVEWXGTYDZ9334-61-66K94:06:23 2021-06-02 [id number]:22:00 [facility] 06:22:00 [facility] ([facility])Cardiology Progress NoteREPORT#:[id number] REPORT STATUS: SignedDATE:06/02/21 TIME: 621 PATIENT: COLE JEFFREY UNIT #: [id number]#: [id number] [facility] AGE: 81 SEX: M ATTEND: Marcello Garvin MDA AUTHOR: Ruiz Bhatti MD * ALL edits or amendments must be made on the electronic/computer document * SubjectiveChief Complaint:CADHPI:81 year old male with h/o CAD, s/p ACB admitted s/p left thoracentesis. Currently no c/o chest pain, palpitaitons, dyspnea. Objective GeneralVS/I O:24 hour I O ending at 0700: 06/02 0700 06/01 1900 Intake Total Output Total Balance Patient 115.909 kg Weight Weight Standing scale Measurement Method Vital Signs: Date Time Temp Pulse Resp B/P B/P Pulse O2 O2 Flow FiO2 Mean Ox Delivery Rate 06/02 0500 70 23 117/71 88 96 06/02 0400 55 20 121/56 81 96 06/02 0301 62 19 125/93 104 96 06/02 0201 62 17 108/65 82 98 06/02 0110 97 06/02 0100 91 33 136/59 84 06/02 0030 97.6 06/02 0000 86 23 137/63 91 93 06/01 2300 83 18 97/54 68 93 06/01 2230 Nasal 3 cannula 06/01 2210 81 21 98 06/01 2050 97.1 87 22 129/61 97 Nasal 3 cannula 06/01 2041 Nasal 3 cannula 06/01 2040 91 22 131/58 98 Nasal 3 cannula 06/01 2037 Nasal 3 cannula 06/01 2030 83 22 115/63 100 Nasal 3 cannula 06/01 1951 85 25 126/74 100 Nasal 3 cannula 06/01 1916 77 21 133/60 100 Nasal 3 cannula 06/01 1604 Nasal 2 cannula 06/01 1545 91 30 122/57 96 Nasal 2 cannula 06/01 1200 97.2 84 22 141/78 95 Room air PATIENT WEIGHT: Weight (lb): 255Weight (oz): 8.57Weight (kg): 115.909 Medications:Active Meds + DC'd Last 24 HrsLosartan Potassium (COZAAR) 100 MG DAILY PO Insulin Human Lispro (HumaLOG) LOW DOSE SLIDING SCALE AC HS SUBQ Levothyroxine Sodium (Synthroid) 100 MCG DAILY@0600 PO Dextrose/Water (DEXTROSE 50% IN WATER) 12.5 GM ASDIR PRN IV Dextrose/Water (DEXTROSE 50% IN WATER) 25 GM ASDIR PRN IV Amiodarone HCl (CORDARONE) 400 MG BID PO (CKD) Atorvastatin Calcium (LIPITOR) 80 MG BEDTIME PO Famotidine (PEPCID) 20 MG BID PO Metformin HCl (GLUCOPHAGE) 1,000 MG BID PO Metoprolol Tartrate (LOPRESSOR) 50 MG Q12HR PO Oxybutynin Chloride (DITROPAN) 5 MG BEDTIME PO Tamsulosin HCl (FLOMAX) 0.4 MG BID PO Dextrose/Water (DEXTROSE 50% IN WATER) 0 .STK-MED ONE IV (DC) Amlodipine Besylate (NORVASC) 10 MG DAILY PO Aspirin (ASPIRIN EC) 81 MG DAILY PO Clopidogrel Bisulfate (PLAVIX) 75 MG DAILY PO Dextrose/Water (DEXTROSE 50% IN WATER) 50 ML ONCE ONE IV (DC) Ferrous Sulfate (FEOSOL) 325 MG BID MEALS PO Finasteride (PROSCAR) 5 MG DAILY PO Iron/Minerals/Multivitamins (THERAGRAN-M) 1 EA DAILY PO Dextrose/Water (DEXTROSE 50% IN WATER) 12.5 GM NOW ONE IV (DC) Dextrose/Water (DEXTROSE 50% IN WATER) 0 .STK-MED ONE .ROUTE (DC) Cefazolin Sodium (ANCEF) 0 .STK-MED ONE .ROUTE (DC) Physical ExamGeneral appearance: alert, awake, orientedHead/Eyes: atraumatic, normocephalicENT: moist mucosal membranesNeck: no JVDCardiovascular: CV assessment: regular rate and rhythmRespiratory: clear to auscultation, no distressLower extremity: LE assessment: no edemaMusculoskeletal: full range of motionNeuro/HUMAN RESOURCES LEADER: alert, oriented X 3, CN II-XII intactSkin: dry, intactPsychiatry: normal affect, normal judgment/insight, normal mood ResultsFindings/Data:Laboratory Tests 06/01 1651 1520 Chemistry Sodium (137 - 145 MMOL/L) 131 L Potassium (3.5 - 5.1 MMOL/L) 3.6 Chloride (98 - 107 MMOL/L) 94 L Carbon Dioxide (22 - 30 MMOL/L) 31 H BUN (9 - 20 MG/DL) 18 Creatinine (0.66 - 1.25 MG/DL) 1.10 Glomerular Filtr Rate > 60 Glucose (74 - 106 MG/DL) 54 L POC Glucose (60 - 99 MG/DL) 189 H 130 H 71 97 Calcium (8.4 - 10.2 MG/DL) 8.8 Laboratory Tests 06/01 1520 Coagulation INR (0.86 - 1.14) 1.3 H APTT (25.1 - 36.5 SECONDS) 34.6 PT Patient/Control Mix (9.5 - 12.7 SECONDS) 14.8 H Laboratory Tests 06/01 1520 Hematology WBC (3.8 - 9.8 K/MM3) 6.3 RBC (3.95 - 5.67 M/MM3) 3.72 L Hgb (12.4 - 16.7 G/DL) 9.9 L Hct (35.9 - 49.5 %) 30.4 L MCV (81.7 - 96.1 fL) 82 MCH (27.6 - 33.2 pg) 26.6 L MCHC (32.9 - 35.5 %) 32.6 L RDW (12.1 - 15.2 %) 15.2 Plt Count (129 - 368 K/MM3) 327 MPV (7.4 - 10.4 fl) 8.7 Neut % (Auto) (43 - 75 %) 63.4 Lymph % (Auto) (14 - 44 %) 20.6 Ocean % (Auto) (4 - 13 %) 12.1 Eos % (Auto) (0 - 6 %) 3.0 Baso % (Auto) (0 - 2 %) 0.6 Neut # (Auto) (2.0 - 7.6 K/mm3) 3.99 Lymph # (Auto) (1.0 - 3.8 K/mm3) 1.30 Ocean # (Auto) (0.1 - 0.8 K/mm3) 0.76 Eos # (Auto) (0.0 - 0.2 K/mm3) 0.19 Baso # (Auto) (0.0 - 0.2 K/mm3) 0.04 Immature Gran % (0.0 - 2.0 %) 0.3 Nucleated RBC % (0 - 1.0 %) 0.0 Nucleated RBCs # (Man) (0.0 - 0.1 K/mm3) 0.00 Laboratory Tests 06/01 1520 Serology SARS-CoV-2 Ag (Rapid) (Negative) NEGATIVE Laboratory Tests 06/01 1520 Coagulation APTT (25.1 - 36.5 SECONDS) 34.6 Radiology data:Recent Impressions:RADIOLOGY - XR CHEST 1V 06/01 1240 Report Impression - Status: SIGNED Entered: 06/01/2021 1303 IMPRESSION:Large left pleural effusion, increased since prior exam. Mild coarsening of bilateral interstitial markings.Impression By: [email or web address] - Javad Mosquera MDRADIOLOGY - XR CHEST 1V 06/01 2015 Report Impression - Status: SIGNED Entered: 06/01/2021 204 IMPRESSION:Decreased left pleural effusion. No pneumothorax seen.Impression By: [email or web address] - Giovany Talamantes MD Diagnosis, Assessment Plan Free Text DxA P NotesFree Text DxA P Notes:IMP: CAD - multivessel s/p ACB with DICKENS to LAD, saphenous vein to diagonal, OM, right PDA - 2020. Volume stable HLP DM AFL - HR variable. Therapeutic INR ANDREW thrombus. HTN Left pleural effusion - S/P Thoracentesis PLAN: Decrease amiodarone Ambulate at 1237 RPT #:[id number] OF REPORTPRProgress Hmeu5402-57-26P10:22:00Z.[id number] 079AVAvailable for patient rdhpIMGPUXDAMSFJXL5462-70-72W28:37:31 2021-06-01 [id number]:44:00 [facility] 22:44:00 [facility] ([facility])History Physical - AdultREPORT#:[id number] REPORT STATUS: SignedDATE:06/01/21 TIME: 2243 PATIENT: COLE JEFFREY UNIT #: [id number]#: [id number] ROOM[facility]BED: [facility]-ADOB: [birth year] AGE: 81 SEX: M ATTEND: Marcello Garvin MDA AUTHOR: Heladio Godoy MD * ALL edits or amendments must be made on the electronic/computer document * History of Present Illness HPIChief complaint:Stable post left thoracentesisHPI:81 years old male patient with a past medical history of diabetes mellitus, atrial fibrillation, hypertension state post left thoracentesis.Procedure was eqbkopwfhu8842 mL was removed HistoryPast medical history:Reports: Atrial fibrillation, Congestive heart failure, Coronary artery disease. Past surgical history:Reports: CABG. Family history:Reports: Heart disease, Hypertension. Alcohol use: Denies EtOH useDrug use: Denies recreational drugs Medication/Allergy-Vaccine HxAllergies:Coded Allergies:Sulfa (Sulfonamide Antibiotics) (ITCHING 04/09/21)canagliflozin (From INVOKANA) (ITCHING 04/09/21) Review of SystemsConstitutional:Denies: chills, fatigue, fever, generalized weakness, lethargy, malaise, recent wt loss, other. Skin:Denies: abrasion, bruising, contusion, diaphoresis, ecchymosis, itching, laceration, rash, swelling, other. Allergy/Immun:Denies: allergic reaction, anaphylaxis, hives, itching, rhinorrhea, sneezing, other. Eyes:Denies: redness, discharge, visual loss/blurred, itching, diplopia, eye pain, photophobia, swelling, other. ENT:Denies: ear drainage, ear ringing, earache, hearing loss, mouth pain, nasal congestion, nose bleeding, sinus problem, sore throat, throat pain, throat swelling, tongue pain, tongue swelling, toothache, voice change, other. Respiratory:Reports: SOB. Denies: COWAN (dyspnea on exertion), hemoptysis, non productive cough, parox nocturnal dyspnea, pleurisy, pleuritic pain, pneumonia, productive cough (sputum), wheezing, other. Cardiovascular:Denies: chest pain, COWAN (dyspnea on exertion), edema, orthopnea, palpitations, parox nocturnal dyspnea, other. GI:Denies: abdominal pain, anorexia, constipation, diarrhea, dysphagia, GERD, hematemesis, hematochezia, hiatal hernia, melena, nausea, rectal pain, vomiting,other. :Denies: dysuria, flank pain, frequency, hematuria, nocturia, penile discharge, penile lesion, testicular pain, testicular swelling, urgency, urinary retention,other. Musculoskeletal: Arthritis: Denies: left upper, left lower, right upper, right lower, bilateral. Heme:Denies: adenopathy, bleeding, bruising, petechiae, other. Endocrine:Denies: cold intolerance, heat intolerance, polydipsia, polyphagia, polyuria, weight gain, weight loss, other. Neuro:Denies: bladder dysfunction, bowel dysfunction, change in LOC, confusion, dizziness, focal weakness, gait problem, headache, lightheaded, numbness, seizure, slurred speech, spinning sensation, syncope, unable to speak, vision change, weakness, other. Psych:Denies: agitation, anxiety, auditory hallucination, change in mental status, confusion, delusional, depression, homicidal ideation, hostile, insomnia, stress, suicidal ideation, visual hallucination, other. Physical ExamVS/I OVital Signs: Date Time Temp Pulse Resp B/P B/P Pulse O2 O2 Flow FiO2 Mean Ox Delivery Rate 06/01 2050 36.2 87 22 129/61 97 Nasal 3 cannula 06/01 2041 Nasal 3 cannula 06/01 2040 91 22 131/58 98 Nasal 3 cannula 06/017 Nasal 3 cannula 06/01 2030 83 22 115/63 100 Nasal 3 cannula 06/01 1951 85 25 126/74 100 Nasal 3 cannula 06/01 1916 77 21 133/60 100 Nasal 3 cannula 06/01 1604 Nasal 2 cannula 06/01 1545 91 30 122/57 96 Nasal 2 cannula 06/01 1200 36.2 84 22 141/78 95 Room air PATIENT WEIGHT: Weight (lb): 255Weight (oz): 8.57Weight (kg): 115.909 General appearance: alert, awake, orientedHead/Eyes: atraumatic, clear cornea, EOMIENT: moist mucosal membranesNeck: full range of motion, non-tender, no bruit/NL carotids, no JVDCardiovascular: normal capillary refill, regular rate rhythm, no gallop, no murmurRespiratory: on oxygen, decreased breath soundsAbdomen/GI: active bowel sounds, soft, non-tender, no guarding, no rebound, no distention, no mass/organomegalyExtremities: moves all, no edema-all extremitiesMusculoskeletal: full range of motionNeuro/HUMAN RESOURCES LEADER: alert, oriented X 3, no motor deficits, no sensory deficits, CNII-XIIgrossly intact Diagnosis, Assessment PlanProblem List/A P: 1. Pleural effusion, left 2. Diabetes 3. Hypertension 4. Coronary artery disease 5. Hyperlipidemia 6. Hypothyroidism 7. Benign prostatic hyperplasia Free Text DxA P NotesFree Text DxA P Notes:SSIPOCTStatinresume home medspain regimen supplement oxygen.f/u studies of the pleural fluid at 2252 RPT #:[id number] OF REPORTHPHistory and physical tbdhdjhssna7065-43-90O56:44:00Z.DXWF075 [id number] for patient rkklDZNOTHVAMLVMNW7977-38-55W76:52:24 2021-06-01 [id number]:12:00 [facility]00 [facility] ([facility])Brief Op NoteREPORT#:[id number] REPORT STATUS: SignedDATE:06/01/21 TIME: 2111 PATIENT: COLE JEFFREY [place] UNIT #: [id number]#: [id number] ROOM/BED: [facility]-ADOB: [birth year] AGE: 81 SEX: M ATTEND: Marcello Garvin AUTHOR: Annel Ha * ALL edits or amendments must be made on the electronic/computer document * Op/Inv Proc Note - BriefPre-procedure diagnosis:Left pleural effusionPost-procedure diagnosis: same as pre procedure dxProcedures performed:Left thoracentesisPrimary Surgeon:Marcello Quinterotant(s): noneAnesthesiologist:NONEAnesthesia: local anesthesiaFindings:See detailed op [id number]: noneEstimated blood loss in ml's: noneSpecimens removed/altered: left pleural fluidWound class: cleanDisposition: PACU, stable at 2114 at 2030 RPT #:[id number] OF REPORTOPOperative bzxomn2960-74-70E48:12:00Z.[id number] -0472AVAvailable for patient eidqCYMPONXYZPHELO2751-63-82O69:14:58 2021-06-01 [id number]:[id number] [facility] 20:55:00 [address] [place] [address] PATIENT NAME: COLE JEFFREY ADMIT DATE: 06/01/21ACCOUNT NO: [id number] ROOM NO: [facility] AGE: 81 REPORT TYPE: OPERATIVE REPORT SEX: M ADMITTING PHYSICIAN:Marcello Garvin MD ATTENDING PHYSICIAN:Marcello Garvin MD OPERATION DATE: 06/01/2021 CARDIAC SURGERY SERVICE PREOPERATIVE DIAGNOSES: Coronary artery disease, status post aortocoronarybypass surgery, left pleural effusion, diabetes, hypertension, andhyperlipidemia. POSTOPERATIVE DIAGNOSES: Coronary artery disease, status post aortocoronarybypass surgery, left pleural effusion, diabetes, hypertension, andhyperlipidemia. PROCEDURE: Left thoracentesis. SURGEON: Marcello Garvin MD LINUX DEVOPS ENGINEER: None. ANESTHESIA: Local. COMPLICATIONS: None. DISPOSITION: The patient to recovery in stable condition. DESCRIPTION OF PROCEDURE: On 06/01/2021, the patient was brought to recoveryroom, prepped and draped in usual fashion; on left posterior back, localanesthetic infiltrated posteriorly. A small incision was made with #11 bladeand the catheter introduced into the left pleural space, it drained 2.7 litersof light brownish fluid. We then gently removed the catheter and a Band-Aidplaced. Chest x-ray as followup shows almost complete resolution of the pleuraleffusion on the left side with no pneumothorax noted. The patient remainedstable at the bedside. We will transfer to floor. Dictated By: Marcello Garvin MD WT: OP:Z.HIM/JABARI/NTSDD: 06/01/2021 20:55:36DT: 06/01/2021 20:59:22Conf#: [id number]/DID#: [id number] PATIENT NAME: COLE JEFFREY Authenticated by Marcello Garvin MD On 06/09/2021 10:30:01 PM at 1030 PATIENT NAME: COLE JEFFREY offzew3066-84-00G63:59:00Z.[id number]- [id number] for patient qjqcGTAQRNSSIJUHEY5142-80-26W53:30:42 2021-06-01 [id number]:[id number] [facility] 20:36:00 [address] [place] [address] PATIENT NAME: COLE JEFFREY ADMIT DATE: 06/01/21ACCOUNT NO: [id number] ROOM NO: [facility] AGE: 81 REPORT TYPE: ELECTROCARDIOGRAM SEX: M ADMITTING PHYSICIAN:Marcello Garvin MD ATTENDING PHYSICIAN:Marcello Garvin MD Order:[id number] Reason : S/P L THORACENTESIS Test Date/Time Stamp:TueJun 01 2021 20:36:33Blood Pressure : / mmHGVent. Rate : 065 BPM Atrial Rate : 090 BPM P-R Int : 000 ms QRS Dur : 172 ms QT Int : 478 ms P-R-T Axes : 000 -56 064 degrees QTc Int : 497 ms Atrial fibrillation with a competing junctional pacemakerRight bundle branch blockLeft anterior fascicular block Bifascicular block T wave abnormality, consider lateral ischemia or digitalis effectAbnormal ECGWhen compared with ECG of 01-JUN-2021 15:53,Significant changes have occurredConfirmed by NONI MARQUEZ ([id number]) on 06/02/2021 2:05:37 PM Referred By: Marcello Garvin Confirmed by:NONI MARQUEZ at 1405 PATIENT NAME: COLE JEFFREY .[id number] for patient pgjyKDMPAPNMWJGWQW1608-30-61G73:06:02 2021-06-01 [id number]:53:[id number] [facility] 15:53:00 [address] [place] [address] PATIENT NAME: COLE JEFFREY ADMIT DATE: 06/01/21ACCOUNT NO: [id number] ROOM NO: AGE: 81 REPORT TYPE: ELECTROCARDIOGRAM SEX: M ADMITTING PHYSICIAN: ATTENDING PHYSICIAN:Marcello Garvin MD Order:[id number] Reason : PRE-OP Test Date/Time Stamp:TueJun 01 2021 15:53:01Blood Pressure : / mmHGVent. Rate : 074 BPM Atrial Rate : 074 BPM P-R Int : 080 ms QRS Dur : 146 ms QT Int : 422 ms P-R-T Axes : 000 -61 270 degrees QTc Int : 468 ms Sinus rhythm with marked sinus arrhythmia with short PRLeft axis deviationRight bundle branch blockAbnormal ECGNo significant change was foundConfirmed by NONI MARQUEZ ([id number]) on 06/01/2021 4:25:10 PM Referred By: Marcello Garvin Confirmed by:NONI MARQUEZ at 1625 PATIENT NAME: COLE JEFFREY .[id number] for patient izrjUNPXYKTNPNYJME0235-90-95Q44:25:39 2021-06-01 [id number]:53:[id number] [facility] 15:53:00 [address] [place] [id number] PATIENT NAME: COLE JEFFREY ADMIT DATE: 06/01/21ACCOUNT NO: [id number] ROOM NO: Z.350 AGE: 81 REPORT TYPE: ELECTROCARDIOGRAM SEX: M ADMITTING PHYSICIAN:Marcello Garvin MD ATTENDING PHYSICIAN:Marcello Garvin MD Order:[id number] Reason : PRE-OP Test Date/Time Stamp:TueJun 01 2021 15:53:01Blood Pressure : / mmHGVent. Rate : 074 BPM Atrial Rate : 074 BPM P-R Int : 080 ms QRS Dur : 146 ms QT Int : 422 ms P-R-T Axes : 000 -61 270 degrees QTc Int : 468 ms Atrial fibrillationLeft axis deviationRight bundle branch blockAbnormal ECGNo significant change was foundConfirmed by NONI MARQUEZ ([id number]) on 06/03/2021 7:23:23 AM Referred By: Marcello Garvin Confirmed by:NONI MARQUEZ at 0723 PATIENT NAME: COLE JEFFREY .[id number] for patient uggjEWIAHQWHLERMWU0565-21-37R17:23:51 2021-04-23 [id number]:10:[id number] [facility] 14:10:[address] [address] PATIENT NAME: COLE JEFFREY ADMIT DATE: 04/10/21ACCOUNT NO: [id number] ROOM NO: Z.309 AGE: 81 REPORT TYPE: eVENOUS ULTRASOUND SEX: M ADMITTING PHYSICIAN:Rafal Marquez MD ATTENDING PHYSICIAN:Rafal Marquez MD *[facility]*[address] [place], [place] [address]Gyxsv Lower Extremity Venous Duplex Evaluation Patient: Cole Jeffrey Date: 04/14/2021 BP: 131 / 73 Location: LEANNERN: [id number] : 1940 Age: 81 Height: 71.7 in / 182 cmAccession#: [id number] Gender: M Weight: 265 lb / 120.5 kgBMI/BSA: 36.4 kg/m 2 / 2.51 m 2 *Ordering Physician: Aarti Rasheed*Interpreting Physician: * Noni Marquez MD*Drawer Maker: * Misty Giraldo RVT Indica tions: Hematoma right meadial thigh. Swelling of limb. Study data: Lower extremity venous duplex evaluation. Bilateralevaluation with grayscale 2D imaging, color Doppler imaging, andspectral Doppler analysis. Location: Bedside. Patient status:Inpatient. Patient room number: 309. Procedure: A vascular evaluationwas performed. Images were obtained using a IronPlanet vascular ultrasoundmachine. Image quality was suboptimal. The study was technically limiteddue to casts or medical dressings and edema. Study status: Routine. Venous flow and imaging: + + +*Location *Properties *+ + +*R SFJ *Phasic; spontaneous; compressible * PATIENT NAME: COLE JEFFREY + + +*R CFV *Phasic; spontaneous; normal augmentation; compressible*+ + --+*R GSV *Not visualized *+ + +*R DFV *Phasic; spontaneous *+ + +*R FV *Phasic; spontaneous; normal augmentation; compressible*+ + --+*R popliteal*Phasic; spontaneous; normal augmentation; compressible*+ + --+*R peroneal *Not visualized *+ + +*R PTV *Compressible; not well visualized *+ + +*L SFJ *Phasic; spontaneous; compressible *+ + +*L CFV *Phasic; spontaneous; normal augmentation; compressible*+ + --+*L GSV *Not visualized *+ + +*L DFV *Phasic; spontaneous *+ + +*L FV *Phasic; spontaneous; normal augmentation; compressible*+ + --+*L popliteal*Phasic; spontaneous; normal augmentation; compressible*+ + --+*L peroneal *Not visualized *+ + +*L PTV *Compressible; not well visualized *+ + + Conclu sions 1. Procedure narrative: Image quality was suboptimal. The study was technically limited due to casts or medical dressings and edema.2. There is no evidence of deep or superficial venous thrombosis noted in the right lower extremity and left lower extremity of the visualized segments. Prepared and electronically signed by Noni Marquez MD04/23/2021 14:10 at 1410 PATIENT NAME: COLE JEFFREY nvvqjib0202-26-26B22:10:00Z.[id number] for patient uupgYYEUCCOFKAKLRM8093-09-55J64:11:11 2021-04-21 [id number]:54:[id number] [facility] 14:54:00 [address] [place] [address] PATIENT NAME: COLE JEFFREY ADMIT DATE: 04/10/21ACCOUNT NO: [id number] ROOM NO: .[facility] AGE: 81 REPORT TYPE: DISCHARGE SUMMARY REPORT SEX: M ADMITTING PHYSICIAN:Rafal Marquez MD ATTENDING PHYSICIAN:Rafal Marquez MD ADMISSION DATE: 04/10/2021ISCHARGE DATE: 04/21/2021 DISCHARGE DIAGNOSES:1. Severe coronary artery disease.2. Debility.3. Status post recent quadruple aortocoronary artery bypass graft surgery.4. Diabetes mellitus, type 2.5. Recent intermittent atrial fibrillation with rapid ventricular response,alternating with atrial flutter.6. Diabetic neuropathy.7. Peripheral arterial disease.8. Hypertension.9. Hyperlipidemia.10. Benign prostatic hypertrophy.11. History of skin cancer.12. History of bilateral knee osteoarthritis, status post bilateral total kneearthroplasty.13. Anemia of blood loss.14. Morbid obesity. REASON FOR ADMISSION: This 81-year-old white male was admitted forcomprehensive inpatient rehabilitation for deconditioning and debility followingquadruple aortocoronary artery bypass graft surgery performed on 03/31/2021 [address]Dr. Marcello Garvin at this hospital for multivessel obstructive coronaryartery disease. LABORATORY DATA AND CONSULTATIONS: The patient had his blood sugars measuredregularly throughout his hospital stay and these showed diabetes to be underacceptable control. The patient did have a followup electrocardiogram done theday before discharge, which showed atrial flutter and fibrillation with rightbundle-branch block and left anterior fascicular block with T-wave abnormality. The patient had prothrombin times done to monitor his oral anticoagulation andhis last prothrombin time done the day before discharge was therapeutic with anINR of 2.8. HOSPITAL COURSE: This patient remained medically stable throughout his hospitalstay and was able to participate in his rehabilitation program on a consistentdaily basis. He sustained no medical complications, which prevented his fullparticipation in the rehabilitation program and he was discharged in medicallystable condition. PATIENT NAME: COLE JEFFREY REHABILITATION PROGRAM: The patient was placed in a comprehensive inpatientrehabilitation program including occupational therapy and physical therapy andby discharge, he was basically independent in household mobility and wasindependent in activities of daily living with the exception of bathing, whichrequired supervision. DISPOSITION: The patient was discharged to his home where he lives with hisable-bodied . He will follow up with his referring technology solutions architect and primarycare physician as well as with Dr. Garvin, his cardiovascular surgeon. He willreceive home health rehabilitation services and a visiting nurse to coordinatemedical management with his primary care physician and primary technology solutions architect. Hewill also receive home health aide services for assistance in activities ofdaily living. DISCHARGE MEDICATIONS: Listed on the discharge medication reconciliation form. Dictated By: Rafal Marquez MD WT: DS:KATERINE/CONOR/LAURENDD: 04/21/2021 14:54:36DT: 04/21/2021 15:07:05Conf#: [id number]/DID#: [id number] Authenticated by Rafal Marquez MD On 04/21/2021 05:00:02 PM at 0500 PATIENT NAME: COLE JEFFREY qgwbrnl2590-26-02B62:07:00Z.[id number] -0100AVAvailable for patient nmgbIRRXLXJVVTVBXN5543-40-80Z92:00:36 2021-04-21 [id number] [facility] 14:49:[address] [address] PATIENT NAME: COLE JEFFREY ADMIT DATE: 04/10/21ACCOUNT NO: [id number] ROOM NO: .[facility] AGE: 81 REPORT TYPE: PROGRESS NOTE SEX: M ADMITTING PHYSICIAN:Rafal Marquez MD ATTENDING PHYSICIAN:Rafal Marquez MD DATE: 04/21/2021 Mr. Jeffrey is seen on 04/21/2021 for rehabilitation direction and for dischargearrangements for debility associated with coronary artery disease resulting inquadruple aortocoronary artery bypass graft surgery on 03/31/2021. This patienthad postoperative cardiac arrhythmia and was placed on oral anticoagulation forstroke prophylaxis because of atrial fibrillation. He has reached therapeuticefficacy with warfarin and is being discharged today on dosage of 2.5 mg dailyand will follow up with his treating technology solutions architect for management of hiswarfarin. The patient is also on several other medications and these werereconciled by the [facility] Hospitalist. The patient will follow up with , his cardiovascular surgeon. The patient is seen today in his room. Heis ready for discharge. He is at the edge of the bed, alert, oriented, in nodistress. Affect pleasant. Speech intelligible and fluent. Thought contentreasonable, relevant, and appropriate. His temperature was 36.6 degreescentigrade, pulse 99, respirations 18, blood pressure 146/84 with an oxygensaturation of 94% on room air. The patient had a pressure injury to his rightbuttock, which was graded as stage III, which is healing and was present onadmission to the rehabilitation unit. The patient has essentially reached setup to independence in mobility and isindependent in all activities of daily living with the exception of bathing, forwhich he is supervision. The patient will continue with outpatient occupationaltherapy and physical therapy through a home health agency while a visiting nursecoordinates medical management with his primary care physician or consultingspecialist, home health aide will provide assistance with activities of dailyliving. Dictated By: Rafal Marquez MD WT: PN:Z.JAMES/KREMI/NTSDD: 04/21/2021 14:49:37DT: 04/21/2021 15:03:45Conf#: [id number]/DID#: [id number] Authenticated by Rafal Marquez MD On 04/21/2021 04:59:58 PM at 0459 PATIENT NAME: COLE JEFFREY Fujj2076-18-94T33:03:00Z.[id number] 96AVAvailable for patient kvimRDLGGAVZVWSOZU7203-90-27L40:00:36 2021-04-21 [id number]:16:00 [facility] 12:16:00 [facility] Progress NoteREPORT#:[id number] REPORT STATUS: SignedDATE:04/21/21 TIME: 1216 PATIENT: COLE JEFFREY UNIT #: [id number]#: [id number] [facility] AGE: 81 SEX: M ATTEND: Rafal Marquez MDADM AUTHOR: Aarti Plummer MD R1 * ALL edits or amendments must be made on the electronic/computer document * Aarti Plummer 04/21/21 1216:SubjectiveChief Complaint:sitting on bed. still w/ sob on exertion and incisional pain. no other complaints this AM. eating well Review of SystemsConstitutional:Denies: chills, fatigue, fever, generalized weakness, lethargy, malaise, recent wt loss, other. Skin:Reports: contusion, ecchymosis (R medial thigh ). Denies: abrasion, bruising, diaphoresis, itching, laceration, rash, swelling, other. ENT:Denies: ear drainage, ear ringing, earache, hearing loss, mouth pain, nasal congestion, nose bleeding, sinus problem, sore throat, throat pain, throat swelling, tongue pain, tongue swelling, toothache, voice change, other. Respiratory:Reports: COWAN (dyspnea on exertion). Denies: hemoptysis, non productive cough, parox nocturnal dyspnea, pleurisy, pleuritic pain, pneumonia, productive cough (sputum), SOB, wheezing, other. Cardiovascular:Reports: edema. Denies: chest pain, COWAN (dyspnea on exertion), orthopnea, palpitations, parox nocturnal dyspnea, other. GI:Denies: abdominal pain, anorexia, constipation, diarrhea, dysphagia, GERD, hematemesis, hematochezia, hiatal hernia, melena, nausea, rectal pain, vomiting,other. Objective GeneralVS/I O:Vital Signs: Date Time Temp Pulse Resp B/P B/P Pulse O2 O2 Flow FiO2 Mean Ox Delivery Rate 04/21 0754 101 20 143/88 106.4 04/21 0412 97.9 99 18 146/84 104.9 94 Room air 04/20 1920 98.1 47 18 152/62 92.4 96 Room air 04/20 1543 98.1 48 18 150/64 92.5 97 24 hour I O ending at 0700: 04/21 0700 04/20 1900 Intake Total 120 720 Output Total 100 Balance 20 720 Intake, Oral 120 720 Number 0 Incontinent Voids Number Voids 1 4 Output, Urine 100 PATIENT WEIGHT: Weight (lb): 250Weight (oz): 14.18Weight (kg): 113.800 Medications:Active Meds + DC'd Last 24 HrsWarfarin Sodium (COUMADIN 2.5MG) 2.5 MG QPM PO Amlodipine Besylate (NORVASC) 10 MG DAILY PO Metoprolol Tartrate (LOPRESSOR) 50 MG Q12HR PO Diphenhydramine HCl (BENADRYL) 25 MG Q6H PRN PRN PO Levothyroxine Sodium (Synthroid) 100 MCG 0630 PO Digoxin (LANOXIN) 0.25 MG Q24H PO (CKD) Metformin HCl (GLUCOPHAGE) 1,000 MG AC DIN PO Aspirin (ASPIRIN EC) 81 MG DAILY PO Clopidogrel Bisulfate (PLAVIX) 75 MG DAILY PO Finasteride (PROSCAR) 5 MG DAILY PO Linagliptin (TRADJENTA) 5 MG DAILY PO Losartan Potassium (COZAAR) 100 MG DAILY PO Dextrose/Water (DEXTROSE 50% IN WATER) 12.5 GM ASDIR PRN IV Dextrose/Water (DEXTROSE 50% IN WATER) 25 GM ASDIR PRN IV Wound Care/Dressing Products (MEDIHONEY) 1 ROLDAN DAILY PRN PRN TOPICAL (CKD) Benzonatate (TESSALON PERLE) 100 MG TID PRN PRN PO Simethicone (MYLICON 80MG) 160 MG Q6H PRN PRN PO Acetaminophen (TYLENOL) 650 MG Q4H PRN PRN PO Amiodarone HCl (CORDARONE) 400 MG BID PO (CKD) Atorvastatin Calcium (LIPITOR) 80 MG BEDTIME PO Docusate Sodium (COLACE) 100 MG BID PO Famotidine (PEPCID) 20 MG BID PO Ferrous Sulfate (FEOSOL) 325 MG BID PO Insulin Human Lispro (HumaLOG) MEDIUM DOSE SLIDING SCALE AC HS SUBQ Tamsulosin HCl (FLOMAX) 0.4 MG BID PO Bisacodyl (DULCOLAX) 5 MG BID PRN PRN PO Bisacodyl (BISACODYL SUPP) 10 MG DAILY PRN PRN RECTAL Docusate Sodium (COLACE) 100 MG BID PRN PRN PO Magnesium Hydroxide (MILK OF MAGNESIA) 30 ML DAILY PRN PRN PO Nutrition assessment:The data set between the solid lines has been imported from the dietitian's assessment. Any exceptions have been noted under Provider comments. BMI Calculated: 34.0Nutrition related diagnosis: Nutrition diagnosis details: Nutrition problem: Increased nutrient needsNutrition etiology: INCREASED LETA/PRO NEEDS FOR , WOUND HEALINGNutrition signs and symptoms: POST OP CABGNutrition prescription: -RECOMMEND 1800 ADA DIABETIC DIET WITH 4 GM NA RESTRICTION -RECOMMEND TISH BID FOR WOUND HEALING -RD TO F/U PER PROTOCOLDietitian name: Aleta Jo RD LDAssessment completed: 04/13/21 Provider comments on imported dietitian assessment: Physical ExamHead/Eyes: atraumatic, clear cornea, PERRLENT: normal ear left, normal ear rightNeck: full range of motion, non-tenderCardiovascular: irregularly irregular, normal capillary refillRespiratory: aerating well, clear to auscultationAbdomen: non-tender, normal bowel soundsGenitourinary: no flank pain, no foleyExtremities: edema (1+ edema to knees ), moves all, normal capillary refill, no cyanosis, 4cm contusion/hematoma on medial R thigh, TTPNeuro/HUMAN RESOURCES LEADER: alert, oriented X 3, CNII-XII intact, normal speechSkin: R thigh medial/L knee ecchymosis R buttock ulcer, healing Psychiatry: normal affect, normal judgment/insight, normal mood ResultsFindings/Data:Laboratory Tests 04/21 04/20 04/20 0628 1958 1627 Chemistry POC Glucose (60 - 99 MG/DL) 127 H 122 H 167 H Results: vital signs stable Diagnosis, Assessment Plan Free Text DxA P NotesFree text DxA P notes:81 y/o M w/ PMH HTN, HLD, 90 pack-year smoking hx, DM2, CAD, PAD, frequent SVT/PVC, neuropathy who presented after anginal symptoms. Multi-vessel CAD on cath. S/p CABG 03/31. D/c today. #CAD s/p CABG on 04/09#PAD#BLE edema, improved#Afib/Aflutter #Hematoma, medial R thighAfib/aflutter new since CABG, alternates with sinus tachycardia and also bradycardia. BLE edema improved on exam s/p lasix 40mg x2. Hematoma most likely 2/2 CABG and warfarin, still TTP, improved. No DVT per U/S. Incisions C/D/I. Able to do PT w/o chest pain. - cont metoprolol tartrate 50mg bid, amiodarone, digoxin - ASA, atorvastatin, plavix- Pain management prn. - cardiology, CVS following. will need to f/u w/ Dr. Bhatti and Dr. Garvin as outpatient #Left atrial appendage thrombus 2/2 afib/aflutterFound on recent DEANA this admission. Plans for future DEANA w/ ablation if still w/afib/aflutter and warfarin at goal. - cont Warfarin 2.5. INR 2.8, at goal - cardiology following #HTN BP wnl for age- c/w losartan 100mg, norvasc 10mg #DM2#Neuropathy BG Well controlled. - c/w home metformin, linagliptin, SSI. #Hypothyroid - home levothyroxine #Right buttock ulcer, stage III Per patient, chronic problem from prior to hospitalization. Improved on exam, healing. - wound physician following, collagen DVT PPX: warfarin Diet: cardiacfull code DC: today to home w/ Home health Quality: Gen Med Crit Care VTE ProphylaxisVTE prophylaxis initiated: yes (warfarin) Current MedicationsCurrent medication review:I attest that the foregoing medication list in the medical record is true, accurate, and complete to the best of my knowledge. Advanced Care Plan 65 or OlderDiscussed with: patientDiscussion included: code status (full code) Aisha Lucas 04/21/21 2331:Attestations Teaching Physician AttestationF/U visit w/ resident:I saw the patient with the resident and . . . agree with the resident's findings and plan. : at 1418 at 2332 RPT #:[id number] OF REPORTPRProgress Ibao5632-32-54Z80:16:00Z.[id number] 219AVAvailable for patient [id number]:19:17 2021-04-20 [id number] [facility] 14[facility]35[facility]00 [address] [place] [address] PATIENT NAME: COLE JEFFREY ADMIT DATE: 04/10/21ACCOUNT NO: [id number] ROOM NO: [facility] AGE: 81 REPORT TYPE: PROGRESS NOTE SEX: M ADMITTING PHYSICIAN:Rafal Marquez MD ATTENDING PHYSICIAN:Rafal Marquez MD DATE: 04/20/2021 Mr. Jeffrey is seen on 04/20/2021 for rehabilitation direction and home healthrehabilitation services assessment for debility associated with coronary arterydisease resulting in quadruple aortocoronary artery bypass graft surgery on03/31/2021, the patient had cardiac arrhythmias including atrial fibrillationand atrial flutter. He was placed on oral anticoagulation and his INR today istherapeutic at 2.8, yesterday was a bit above therapeutic at 3.3. The patient'swarfarin dosage has been adjusted downward. The patient is otherwise doing welland his diabetes is under satisfactory control at this point. He isparticipating in his rehabilitation program on a consistent daily basis. Yesterday in occupational therapy, the patient tolerated activities of dailyliving and functional mobility training fairly well, taking rest breaks. Hisoxygen saturation was 95% on room air, but he did experience subjective dyspneaon exertion. In physical therapy yesterday, the patient preferred to performhis therapy in the room. He was able to perform his seated therapeuticexercises without complaint. He was able to progress to gait training andstanding therapeutic exercises in the parallel bars. He did stair and ramptraining without any complaint. The patient is presently scheduled fordischarge home tomorrow, at which time he will be going home with home healthrehabilitation services. This patient is morbidly obese and has significantdyspnea on exertion to make regular trips outside the home a taxing effort andso he can be considered homebound. He will benefit from home healthoccupational therapy for ADL training and physical therapy for generalconditioning and mobility training, and finally a visiting nurse to coordinatemedical management with his consulting specialist and his primary carephysician. Dictated By: Rafal Marquez MD WT: PN:ZSHAHNAZ/CONOR/NTSDD: 04/20/2021 14:35:48DT: 04/20/2021 14:45:11Conf#: [id number]/DID#: [id number] Authenticated by Rafal Marquez MD On 04/21/2021 04:59:55 PM at 0459 PATIENT NAME: COLE JEFFREY [id number]:45:00Z.[id number] 09AVAvailable for patient [id number]:00:36 2021-04-20 [id number]:30:00 [facility] 11:30:00 [facility] ([facility])Cardiology Progress NoteREPORT#:[id number] REPORT STATUS: SignedDATE:04/20/21 TIME: 1130 PATIENT: COLE JEFFREY VICK UNIT #: [id number]#: [id number] [facility] AGE: 81 SEX: M ATTEND: Rafal Marquez [facility] AUTHOR: Ruiz Bhatti MD * ALL edits or amendments must be made on the electronic/computer document * SubjectiveChief Complaint:AFIBPatient reports:No: chest pain, palpitations, shortness of breath. Objective GeneralVS/I O:24 hour I O ending at 0700: 04/20 0700 04/19 1900 Intake Total 240 530 Output Total 0 Balance 240 530 Intake, Oral 240 530 Intake, Oral 0 Supplement Number 0 1 Bowel Movements Number 0 Incontinent Voids Number Voids 2 3 Output, Stool 0 Patient 113.8 kg Weight Weight Bed scale Measurement Method Vital Signs: Date Time Temp Pulse Resp B/P B/P Pulse O2 O2 Flow FiO2 Mean Ox Delivery Rate 04/20 0758 97.9 98 20 163/91 114.7 95 Room air 04/20 0445 98.4 96 17 151/83 105.6 94 Room air 04/19 1939 97.7 98 18 144/85 104.6 96 Room air 04/19 1703 73 97 04/19 1435 97.9 48 16 142/76 97.9 95 PATIENT WEIGHT: Weight (lb): 250Weight (oz): 14.18Weight (kg): 113.800 Medications:Active Meds + DC'd Last 24 HrsWarfarin Sodium (COUMADIN 2.5MG) 2.5 MG QPM PO Amlodipine Besylate (NORVASC) 10 MG DAILY PO Metoprolol Tartrate (LOPRESSOR) 50 MG Q12HR PO Diphenhydramine HCl (BENADRYL) 25 MG Q6H PRN PRN PO Levothyroxine Sodium (Synthroid) 100 MCG 0630 PO Digoxin (LANOXIN) 0.25 MG Q24H PO (CKD) Metformin HCl (GLUCOPHAGE) 1,000 MG AC DIN PO Aspirin (ASPIRIN EC) 81 MG DAILY PO Clopidogrel Bisulfate (PLAVIX) 75 MG DAILY PO Finasteride (PROSCAR) 5 MG DAILY PO Linagliptin (TRADJENTA) 5 MG DAILY PO Losartan Potassium (COZAAR) 100 MG DAILY PO Dextrose/Water (DEXTROSE 50% IN WATER) 12.5 GM ASDIR PRN IV Dextrose/Water (DEXTROSE 50% IN WATER) 25 GM ASDIR PRN IV Wound Care/Dressing Products ([facility]) 1 ROLDAN DAILY PRN PRN TOPICAL (CKD) Benzonatate (TESSALON PERLE) 100 MG TID PRN PRN PO Simethicone (MYLICON 80MG) 160 MG Q6H PRN PRN PO Acetaminophen (TYLENOL) 650 MG Q4H PRN PRN PO Amiodarone HCl (CORDARONE) 400 MG BID PO (CKD) Atorvastatin Calcium (LIPITOR) 80 MG BEDTIME PO Docusate Sodium (COLACE) 100 MG BID PO Famotidine (PEPCID) 20 MG BID PO Ferrous Sulfate (FEOSOL) 325 MG BID PO Insulin Human Lispro (HumaLOG) MEDIUM DOSE SLIDING SCALE AC HS SUBQ Tamsulosin HCl (FLOMAX) 0.4 MG BID PO Bisacodyl (DULCOLAX) 5 MG BID PRN PRN PO Bisacodyl (BISACODYL SUPP) 10 MG DAILY PRN PRN RECTAL Docusate Sodium (COLACE) 100 MG BID PRN PRN PO Magnesium Hydroxide (MILK OF MAGNESIA) 30 ML DAILY PRN PRN PO Physical ExamHead/Eyes: atraumatic, normocephalicENT: moist mucosal membranesNeck: no JVDCardiovascular: CV assessment: regular rate and rhythmRespiratory: clear to auscultation, no distressMusculoskeletal: full range of motionNeuro/HUMAN RESOURCES LEADER: alert, oriented X 3, CN II-XII intactSkin: dry, intactPsychiatry: normal affect, normal judgment/insight, normal mood ResultsFindings/Data:Laboratory Tests 04/2021 1941 1549 1145 Chemistry POC Glucose (60 - 99 MG/DL) 122 H 124 H 140 H 157 H Laboratory Tests 04/20 0425 Coagulation INR (0.86 - 1.14) 2.8 H PT Patient/Control Mix (9.5 - 12.7 SECONDS) 31.2 H Diagnosis, Assessment Plan Free Text DxA P NotesFree Text DxA P Notes:IMP: CAD - multivessel s/p ACB with DICKENS to LAD, saphenous vein to diagonal, OM, right PDA - 2020. Volume stable HLP DM AFL - HR variable. Therapeutic INR ANDREW thrombus. HTN PLAN: Resume low dose warfarin. Consider DEANA in 4-6 weeks if AFL/AFIB continues. PT at 1414 RPT #:[id number] OF REPORTPRProgress [id number]:30:00Z.[id number] [id number] for patient [id number]:14:24 2021-04-20 [id number]:14:00 [facility] 10:14:00 [facility]ospital[facility] Progress NoteREPORT#:[id number] REPORT STATUS: SignedDATE:04/20/21 TIME: 1014 PATIENT: COLE JEFFREY [place] UNIT #: [id number]#: [id number] [facility] AGE: 81 SEX: M ATTEND: Rafal Marquez [facility] AUTHOR: Aarti Plummer MD R1 * ALL edits or amendments must be made on the electronic/computer document * Aarti Plummer 04/20/21 1014:SubjectiveChief Complaint:sitting on bed. still w/ sob on exertion and incisional pain. Review of SystemsConstitutional:Denies: chills, fatigue, fever, generalized weakness, lethargy, malaise, recent wt loss, other. Skin:Reports: bruising, contusion (R medial thigh). Denies: abrasion, diaphoresis, ecchymosis, itching, laceration, rash, swelling, other. Allergy/Immun:Denies: allergic reaction, anaphylaxis, hives, itching, rhinorrhea, sneezing, other. Eyes:Denies: redness, discharge, visual loss/blurred, itching, diplopia, eye pain, photophobia, swelling, other. ENT:Denies: ear drainage, ear ringing, earache, hearing loss, mouth pain, nasal congestion, nose bleeding, sinus problem, sore throat, throat pain, throat swelling, tongue pain, tongue swelling, toothache, voice change, other. Respiratory:Reports: COWAN (dyspnea on exertion). Denies: hemoptysis, non productive cough, parox nocturnal dyspnea, pleurisy, pleuritic pain, pneumonia, productive cough (sputum), SOB, wheezing, other. Cardiovascular:Reports: edema. Denies: chest pain, COWAN (dyspnea on exertion), orthopnea, palpitations, parox nocturnal dyspnea, other. Musculoskeletal: Other musculoskeletal: Reports: other (incisional pain). Objective GeneralVS/I O:Vital Signs: Date Time Temp Pulse Resp B/P B/P Pulse O2 O2 Flow FiO2 Mean Ox Delivery Rate 04/20 0758 97.9 98 20 163/91 114.7 95 Room air 04/20 0445 98.4 96 17 151/83 105.6 94 Room air 04/19 1939 97.7 98 18 144/85 104.6 96 Room air 04/19 1703 73 97 04/19 1435 97.9 48 16 142/76 97.9 95 24 hour I O ending at 0700: 04/20 0700 04/19 1900 Intake Total 240 530 Output Total 0 Balance 240 530 Intake, Oral 240 530 Intake, Oral 0 Supplement Number 0 1 Bowel Movements Number 0 Incontinent Voids Number Voids 2 3 Output, Stool 0 Patient 251 lb Weight Weight Bed scale Measurement Method PATIENT WEIGHT: Weight (lb): 250Weight (oz): 14.18Weight (kg): 113.800 Medications:Active Meds + DC'd Last 24 HrsWarfarin Sodium (COUMADIN 2.5MG) 2.5 MG QPM PO Amlodipine Besylate (NORVASC) 10 MG DAILY PO Metoprolol Tartrate (LOPRESSOR) 50 MG Q12HR PO Diphenhydramine HCl (BENADRYL) 25 MG Q6H PRN PRN PO Levothyroxine Sodium (Synthroid) 100 MCG 0630 PO Digoxin (LANOXIN) 0.25 MG Q24H PO (CKD) Metformin HCl (GLUCOPHAGE) 1,000 MG AC DIN PO Aspirin (ASPIRIN EC) 81 MG DAILY PO Clopidogrel Bisulfate (PLAVIX) 75 MG DAILY PO Finasteride (PROSCAR) 5 MG DAILY PO Linagliptin (TRADJENTA) 5 MG DAILY PO Losartan Potassium (COZAAR) 100 MG DAILY PO Dextrose/Water (DEXTROSE 50% IN WATER) 12.5 GM ASDIR PRN IV Dextrose/Water (DEXTROSE 50% IN WATER) 25 GM ASDIR PRN IV Wound Care/Dressing Products ([facility]) 1 ROLDAN DAILY PRN PRN TOPICAL (CKD) Benzonatate (TESSALON PERLE) 100 MG TID PRN PRN PO Simethicone (MYLICON 80MG) 160 MG Q6H PRN PRN PO Acetaminophen (TYLENOL) 650 MG Q4H PRN PRN PO Amiodarone HCl (CORDARONE) 400 MG BID PO (CKD) Atorvastatin Calcium (LIPITOR) 80 MG BEDTIME PO Docusate Sodium (COLACE) 100 MG BID PO Famotidine (PEPCID) 20 MG BID PO Ferrous Sulfate (FEOSOL) 325 MG BID PO Insulin Human Lispro (HumaLOG) MEDIUM DOSE SLIDING SCALE AC HS SUBQ Tamsulosin HCl (FLOMAX) 0.4 MG BID PO Bisacodyl (DULCOLAX) 5 MG BID PRN PRN PO Bisacodyl (BISACODYL SUPP) 10 MG DAILY PRN PRN RECTAL Docusate Sodium (COLACE) 100 MG BID PRN PRN PO Magnesium Hydroxide (MILK OF MAGNESIA) 30 ML DAILY PRN PRN PO Nutrition assessment:The data set between the solid lines has been imported from the dietitian's assessment. Any exceptions have been noted under Provider comments. BMI Calculated: 34.0Nutrition related diagnosis: Nutrition diagnosis details: Nutrition problem: Increased nutrient needsNutrition etiology: INCREASED LETA/PRO NEEDS FOR , WOUND HEALINGNutrition signs and symptoms: POST OP CABGNutrition prescription: -RECOMMEND 1800 ADA DIABETIC DIET WITH 4 GM NA RESTRICTION -RECOMMEND TISH BID FOR WOUND HEALING -RD TO F/U PER PROTOCOLDietitian name: Aleta Jo RD LDAssessment completed: 04/13/21 Provider comments on imported dietitian assessment: Physical ExamGeneral appearance: alert, awake, oriented, pleasant, conversational, mental status normalHead/Eyes: atraumatic, clear cornea, PERRLENT: normal ear left, normal ear rightNeck: full range of motion, non-tenderCardiovascular: irregularly irregular, normal capillary refillRespiratory: aerating well, clear to auscultationAbdomen: non-tender, normal bowel soundsGenitourinary: no flank pain, no foleyExtremities: edema (1+ edema to knees ), moves all, normal capillary refill, no cyanosis, 4cm contusion/hematoma on medial R thigh, TTPNeuro/HUMAN RESOURCES LEADER: alert, oriented X 3, CNII-XII intact, normal speechSkin: R thigh medial/L knee ecchymosis R buttock ulcer, healing Psychiatry: normal affect, normal judgment/insight, normal mood ResultsFindings/Data:Laboratory Tests 04/20 04/19 04/19 04/19 0621 1941 1549 1145 Chemistry POC Glucose (60 - 99 MG/DL) 122 H 124 H 140 H 157 H Laboratory Tests 04/20 0425 Coagulation INR (0.86 - 1.14) 2.8 H PT Patient/Control Mix (9.5 - 12.7 SECONDS) 31.2 H Results: vital signs stable Diagnosis, Assessment Plan Free Text DxA P NotesFree text DxA P notes:81 y/o M w/ PMH HTN, HLD, 90 pack-year smoking hx, DM2, CAD, PAD, frequent SVT/PVC, neuropathy who presented after anginal symptoms. Multi-vessel CAD on cath. S/p CABG 03/31. #CAD s/p CABG on 04/09#PAD#BLE edema, improved#Afib/Aflutter #Hematoma, medial R thighAfib/aflutter new since CABG, alternates with sinus tachycardia and also bradycardia overnight. BLE edema improved on exam s/p lasix 40mg x2. Hematoma most likely 2/2 CABG and warfarin, still TTP, improved. No DVT per U/S. Incisions C/D/I. Able to do PT w/o chest pain. - metoprolol tartrate 50mg bid. cont amiodarone, digoxin - ASA, atorvastatin, plavix- Pain management prn. - cardiology, CVS following #Left atrial appendage thrombus 2/2 afib/aflutterFound on recent DEANA this admission. Plans for future DEANA w/ ablation if still w/afib/aflutter and warfarin at goal. - cont Warfarin 2.5. INR 2.8. Trend INR. - cardiology following #HTN BP wnl for age- c/w losartan 100mg, norvasc 10mg #DM2#Neuropathy BG Well controlled. - c/w home metformin, linagliptin, SSI. #Hypothyroid - home levothyroxine #Right buttock ulcer, stage III Per patient, chronic problem from prior to hospitalization. Improved on exam, healing. - wound physician following, collagen DVT PPX: warfarin Diet: cardiacfull code DC: 04/21 to home w/ HH Quality: Gen Med Crit Care VTE ProphylaxisVTE prophylaxis initiated: yes (warfarin) Current MedicationsCurrent medication review:I attest that the foregoing medication list in the medical record is true, accurate, and complete to the best of my knowledge. Advanced Care Plan 65 or OlderDiscussed with: patientDiscussion included: code status (full code) Aisha Lucas 04/20/211926:Attestations Teaching Physician AttestationF/U visit w/ resident:I saw the patient with the resident and . . . agree with the resident's findings and plan. at 1417 at 1927 RPT #:[id number] OF REPORTPRProgress [id number]:14:00Z.[id number] for patient [id number]:18:14 2021-04-19 [id number]:50:00 [facility] 15:50:00 [facility] ([facility])Wound Care Progress NoteREPORT#:[id number] REPORT STATUS: SignedDATE:04/19/21 TIME: 1550 PATIENT: COLE JEFFREY UNIT #: [id number]#: [id number] [facility] AGE: 81 SEX: M ATTEND: Rafal Marquez [facility] AUTHOR: January Mccollum MD * ALL edits or amendments must be made on the electronic/computer document * SubjectiveChief Complaint:follow up of woundsHPI:Patient seen today for follow-up, was not able to evaluate his wound he is actively walking with physical therapy. Objective GeneralVS:Last Documented: Result Date Time Pulse Ox 95 04/19 1435 B/P 142/76 04/19 1435 B/P Mean 97.9 04/19 143 Temp 36.6 04/19 143 Pulse 48 04/19 1435 Resp 16 04/19 143 O2 Delivery Room air 04/19 0953 PATIENT WEIGHT: Weight (lb): 265Weight (oz): 3.46Weight (kg): 120.300 Medications:Active Meds + DC'd Last 24 HrsWarfarin Sodium (COUMADIN 2.5MG) 2.5 MG QPM PO Amlodipine Besylate (NORVASC) 10 MG DAILY PO Amlodipine Besylate (NORVASC TAB) 5 MG DAILY PO (DC) Metoprolol Tartrate (LOPRESSOR) 50 MG Q12HR PO Warfarin Sodium (COUMADIN) 3 MG QPM PO (DC) Diphenhydramine HCl (BENADRYL) 25 MG Q6H PRN PRN PO Levothyroxine Sodium (Synthroid) 100 MCG 0630 PO Digoxin (LANOXIN) 0.25 MG Q24H PO (CKD) Metformin HCl (GLUCOPHAGE) 1,000 MG AC DIN PO Aspirin (ASPIRIN EC) 81 MG DAILY PO Clopidogrel Bisulfate (PLAVIX) 75 MG DAILY PO Finasteride (PROSCAR) 5 MG DAILY PO Linagliptin (TRADJENTA) 5 MG DAILY PO Losartan Potassium (COZAAR) 100 MG DAILY PO Dextrose/Water (DEXTROSE 50% IN WATER) 12.5 GM ASDIR PRN IV Dextrose/Water (DEXTROSE 50% IN WATER) 25 GM ASDIR PRN IV Wound Care/Dressing Products ([facility]) 1 ROLDAN DAILY PRN PRN TOPICAL (CKD) Benzonatate (TESSALON PERLE) 100 MG TID PRN PRN PO Simethicone (MYLICON 80MG) 160 MG Q6H PRN PRN PO Acetaminophen (TYLENOL) 650 MG Q4H PRN PRN PO Amiodarone HCl (CORDARONE) 400 MG BID PO (CKD) Atorvastatin Calcium (LIPITOR) 80 MG BEDTIME PO Docusate Sodium (COLACE) 100 MG BID PO Famotidine (PEPCID) 20 MG BID PO Ferrous Sulfate (FEOSOL) 325 MG BID PO Insulin Human Lispro (HumaLOG) MEDIUM DOSE SLIDING SCALE AC HS SUBQ Tamsulosin HCl (FLOMAX) 0.4 MG BID PO Bisacodyl (DULCOLAX) 5 MG BID PRN PRN PO Bisacodyl (BISACODYL SUPP) 10 MG DAILY PRN PRN RECTAL Docusate Sodium (COLACE) 100 MG BID PRN PRN PO Magnesium Hydroxide (MILK OF MAGNESIA) 30 ML DAILY PRN PRN PO Nutrition assessment:The data set between the solid lines has been imported from the dietitian's assessment. Any exceptions have been noted under Provider comments. BMI Calculated: 36.0Nutrition related diagnosis: Nutrition diagnosis details: Nutrition problem: Increased nutrient needsNutrition etiology: INCREASED LETA/PRO NEEDS FOR , WOUND HEALINGNutrition signs and symptoms: POST OP CABGNutrition prescription: -RECOMMEND 1800 ADA DIABETIC DIET WITH 4 GM NA RESTRICTION -RECOMMEND TISH BID FOR WOUND HEALING -RD TO F/U PER PROTOCOLDietitian name: Aleta Jo RD LDAssessment completed: 04/13/21 Provider comments on imported dietitian assessment: Physical ExamGeneral appearance: alert, awake, oriented, no acute distress, waking with PTHead/eyes: atraumatic, clear cornea, normal conjunctiva/scleraCardiovascular: edema B/L lower extExtremities: edema, moves all Wound AssessmentWound Assessment 1: Type/cause: pressure Wound location: buttock (right) Tissue layers: subcutaneous Site condition: granulating, 04/17/21 Imporvement in the wound today, erpithelial resurfacing in the wound margin, overall measuring smaller than prior assessment. Wound bed is moist, pink, granular. 04/19/21 Could not evalaute wounds, pt in PT Length (cm): 1.2 Width (cm): 2.5 Stage of pressure ulcer: stage III Wound margins: thickened Lucy-wound: excoriated Diagnosis, Assessment PlanProblem List/A P: 1. 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 Hypothyroidism 3. Obesity 4. Peripheral artery disease 5. Diabetes 6. Coronary artery disease Free Text A P:Was not able to evaluate patient's buttock ulcer today but advised that his carebe continued with collagen and change every other day. He is actively walking with physical therapy. Will return during the week to evaluate and will make appropriate modifications to his care as needed. at 1552 [facility] #:[id number] OF REPORTPNProcedure [id number]:50:00Z.[id number] for patient [id number]:52:20 2021-04-19 [id number]:51:00 [facility] 14:51:00 [facility] CenterHospital[facility] Progress NoteREPORT#:[id number] REPORT STATUS: SignedDATE:04/19/21 TIME: 1451 PATIENT: COLE JEFFREY UNIT #: [id number]#: [id number] [facility] AGE: 81 SEX: M ATTEND: Rafal Marquez [facility] AUTHOR: Aisha Lucas MD * ALL edits or amendments must be made on the electronic/computer document * SubjectiveChief Complaint:sitting comfortably in the ana. feeling a little stronger. but still has some COWAN. otherwise vss. Review of SystemsAll systems rev neg: except as marked Objective GeneralVS/I O:Vital Signs: Date Time Temp Pulse Resp B/P B/P Pulse O2 O2 Flow FiO2 Mean Ox Delivery Rate 04/19 1435 36.6 48 16 142/76 97.9 95 04/19 0953 36.4 101 16 147/84 105.2 97 Room air 04/19 0455 36.3 63 18 163/76 104.8 95 Room air 04/18 2006 36.9 96 18 163/87 111.9 97 Room air 04/18 1728 48 100 24 hour I O ending at 0700: 04/19 0700 04/18 1900 Intake Total 240 720 Output Total Balance 240 720 Intake, Oral 240 720 Intake, Oral 0 Supplement Number 1 Bowel Movements Number 0 Incontinent Voids Number Voids 2 3 PATIENT WEIGHT: Weight (lb): 265Weight (oz): 3.46Weight (kg): 120.300 Medications:Active Meds + DC'd Last 24 HrsWarfarin Sodium (COUMADIN 2.5MG) 2.5 MG QPM PO Amlodipine Besylate (NORVASC) 10 MG DAILY PO Amlodipine Besylate (NORVASC TAB) 5 MG DAILY PO (DC) Metoprolol Tartrate (LOPRESSOR) 50 MG Q12HR PO Warfarin Sodium (COUMADIN) 3 MG QPM PO (DC) Diphenhydramine HCl (BENADRYL) 25 MG Q6H PRN PRN PO Levothyroxine Sodium (Synthroid) 100 MCG 0630 PO Digoxin (LANOXIN) 0.25 MG Q24H PO (CKD) Metformin HCl (GLUCOPHAGE) 1,000 MG AC DIN PO Aspirin (ASPIRIN EC) 81 MG DAILY PO Clopidogrel Bisulfate (PLAVIX) 75 MG DAILY PO Finasteride (PROSCAR) 5 MG DAILY PO Linagliptin (TRADJENTA) 5 MG DAILY PO Losartan Potassium (COZAAR) 100 MG DAILY PO Dextrose/Water (DEXTROSE 50% IN WATER) 12.5 GM ASDIR PRN IV Dextrose/Water (DEXTROSE 50% IN WATER) 25 GM ASDIR PRN IV Wound Care/Dressing Products ([facility]) 1 ROLDAN DAILY PRN PRN TOPICAL (CKD) Benzonatate (TESSALON PERLE) 100 MG TID PRN PRN PO Simethicone (MYLICON 80MG) 160 MG Q6H PRN PRN PO Acetaminophen (TYLENOL) 650 MG Q4H PRN PRN PO Amiodarone HCl (CORDARONE) 400 MG BID PO (CKD) Atorvastatin Calcium (LIPITOR) 80 MG BEDTIME PO Docusate Sodium (COLACE) 100 MG BID PO Famotidine (PEPCID) 20 MG BID PO Ferrous Sulfate (FEOSOL) 325 MG BID PO Insulin Human Lispro (HumaLOG) MEDIUM DOSE SLIDING SCALE AC HS SUBQ Tamsulosin HCl (FLOMAX) 0.4 MG BID PO Bisacodyl (DULCOLAX) 5 MG BID PRN PRN PO Bisacodyl (BISACODYL SUPP) 10 MG DAILY PRN PRN RECTAL Docusate Sodium (COLACE) 100 MG BID PRN PRN PO Magnesium Hydroxide (MILK OF MAGNESIA) 30 ML DAILY PRN PRN PO Nutrition assessment:The data set between the solid lines has been imported from the dietitian's assessment. Any exceptions have been noted under Provider comments. BMI Calculated: 36.0Nutrition related diagnosis: Nutrition diagnosis details: Nutrition problem: Increased nutrient needsNutrition etiology: INCREASED LETA/PRO NEEDS FOR , WOUND HEALINGNutrition signs and symptoms: POST OP CABGNutrition prescription: -RECOMMEND 1800 ADA DIABETIC DIET WITH 4 GM NA RESTRICTION -RECOMMEND TISH BID FOR WOUND HEALING -RD TO F/U PER PROTOCOLDietitian name: Aleta Jo RD LDAssessment completed: 04/13/21 Provider comments on imported dietitian assessment: Physical ExamHead/Eyes: atraumatic, clear cornea, PERRLENT: normal ear left, normal ear rightNeck: full range of motion, non-tenderCardiovascular: irregularly irregular, normal capillary refillRespiratory: aerating well, clear to auscultationAbdomen: non-tender, normal bowel soundsGenitourinary: no flank pain, no foleyExtremities: edema (1+ edema to knees ), moves all, normal capillary refill, no cyanosis, 4cm contusion/hematoma on medial R thigh, TTPNeuro/HUMAN RESOURCES LEADER: alert, oriented X 3, CNII-XII intact, normal speechSkin: R thigh medial/L knee ecchymosis R buttock ulcer stage IIIPsychiatry: normal affect, normal judgment/insight, normal mood ResultsFindings/Data:Laboratory Tests 04/19 04/19 04/18 04/18 1145 0610 2034 1641 Chemistry POC Glucose (60 - 99 MG/DL) 157 H 106 H 115 H 156 H Laboratory Tests 04/19 0431 Coagulation INR (0.86 - 1.14) 3.3 H PT Patient/Control Mix (9.5 - 12.7 SECONDS) 36.8 H Diagnosis, Assessment Plan Free Text DxA P NotesFree text DxA P notes:81 y/o M w/ PMH HTN, HLD, 90 pack-year smoking hx, DM2, CAD, PAD, frequent SVT/PVC, neuropathy who presented after anginal symptoms. Multi-vessel CAD on cath. S/p CABG 03/31. #CAD s/p CABG on 04/09#PAD#BLE edema, improved#Afib/Aflutter #Hematoma, medial R thighAfib/aflutter new since CABG. BLE edema improved on exam s/p lasix 40mg x2. Hematoma most likely 2/2 CABG and warfarin, still TTP. No DVT per U/S. IncisionsC/D/I. Able to do PT w/o chest pain. - Bradycardic. metoprolol tartrate decreased to 50mg bid as patient symptomatic.cont amiodarone, digoxin - ASA, atorvastatin, plavix- Pain management prn. - cardiology, CVS following #Left atrial appendage thrombus 2/2 afib/aflutterFound on recent DEANA this admission. Plans for future DEANA w/ ablation if still w/afib/aflutter and warfarin at goal. - Warfarin recently decreased to 3mg. INR 4. will hold warfarin today. Recheck INR tomorrow. - cardiology following #HTN elevated. norvasc was increased to 10mg. - c/w losartan #DM2#Neuropathy BG Well controlled. - c/w home metformin, linagliptin, SSI. #Hypothyroid - home levothyroxine #Right buttock ulcer, stage III - wound physician following DVT PPX: warfarin Diet: cardiacfull code DC: 04/21 to home w/ HH Quality: Gen Med Crit Care VTE ProphylaxisVTE prophylaxis initiated: yes (warfarin) Current MedicationsCurrent medication review:I attest that the foregoing medication list in the medical record is true, accurate, and complete to the best of my knowledge. Advanced Care Plan 65 or OlderDiscussed with: patientDiscussion included: code status (full code) at 1454 RPT #:[id number] OF REPORTPRProgress [id number]:51:[id number] for patient [id number]:54:34 2021-04-19 [id number]:23:00 [facility] HCAWU 07:23:00 [facility] ([facility])Cardiology Progress NoteREPORT#:[id number] REPORT STATUS: SignedDATE:04/19/21 TIME: 722 PATIENT: COLE JEFFREY UNIT #: [id number]#: [id number] [facility]ADOB: [birth year] AGE: 81 SEX: M ATTEND: Rafal Marquez AUTHOR: Ruiz Bhatti MD * ALL edits or amendments must be made on the electronic/computer document * SubjectiveChief Complaint:AFIBHPI:Patient not available. Objective GeneralVS/I O:24 hour I O ending at 0700: 04/19 0700 04/18 1900 Intake Total 240 720 Output Total Balance 240 720 Intake, Oral 240 720 Intake, Oral 0 Supplement Number 1 Bowel Movements Number 0 Incontinent Voids Number Voids 2 3 Vital Signs: Date Time Temp Pulse Resp B/P B/P Pulse O2 O2 Flow FiO2 Mean Ox Delivery Rate 04/19 0455 97.3 63 18 163/76 104.8 95 Room air 04/18 2006 98.4 96 18 163/87 111.9 97 Room air 04/18 1728 48 100 04/18 1445 49 18 163/68 99.8 98 04/18 1138 101 161/89 113.2 04/18 0922 98.1 74 16 173/62 98.9 97 Room air PATIENT WEIGHT: Weight (lb): 265Weight (oz): 3.46Weight (kg): 120.300 Medications:Active Meds + DC'd Last 24 HrsAmlodipine Besylate (NORVASC TAB) 5 MG DAILY PO Metoprolol Tartrate (LOPRESSOR) 50 MG Q12HR PO Warfarin Sodium (COUMADIN) 3 MG QPM PO (r) Diphenhydramine HCl (BENADRYL) 25 MG Q6H PRN PRN PO Levothyroxine Sodium (Synthroid) 100 MCG 0630 PO Digoxin (LANOXIN) 0.25 MG Q24H PO (CKD) Metformin HCl (GLUCOPHAGE) 1,000 MG AC DIN PO Aspirin (ASPIRIN EC) 81 MG DAILY PO Clopidogrel Bisulfate (PLAVIX) 75 MG DAILY PO Finasteride (PROSCAR) 5 MG DAILY PO Linagliptin (TRADJENTA) 5 MG DAILY PO Losartan Potassium (COZAAR) 100 MG DAILY PO Dextrose/Water (DEXTROSE 50% IN WATER) 12.5 GM ASDIR PRN IV Dextrose/Water (DEXTROSE 50% IN WATER) 25 GM ASDIR PRN IV Wound Care/Dressing Products ([facility]) 1 ROLDAN DAILY PRN PRN TOPICAL (CKD) Benzonatate (TESSALON PERLE) 100 MG TID PRN PRN PO Simethicone (MYLICON 80MG) 160 MG Q6H PRN PRN PO Acetaminophen (TYLENOL) 650 MG Q4H PRN PRN PO Amiodarone HCl (CORDARONE) 400 MG BID PO (CKD) Atorvastatin Calcium (LIPITOR) 80 MG BEDTIME PO Docusate Sodium (COLACE) 100 MG BID PO Famotidine (PEPCID) 20 MG BID PO Ferrous Sulfate (FEOSOL) 325 MG BID PO Insulin Human Lispro (HumaLOG) MEDIUM DOSE SLIDING SCALE AC HS SUBQ Tamsulosin HCl (FLOMAX) 0.4 MG BID PO Bisacodyl (DULCOLAX) 5 MG BID PRN PRN PO Bisacodyl (BISACODYL SUPP) 10 MG DAILY PRN PRN RECTAL Docusate Sodium (COLACE) 100 MG BID PRN PRN PO Magnesium Hydroxide (MILK OF MAGNESIA) 30 ML DAILY PRN PRN PO ResultsFindings/Data:Laboratory Tests 04/19 2034 1641 1147 Chemistry POC Glucose (60 - 99 MG/DL) 106 H 115 H 156 H 145 H Laboratory Tests 04/19 0431 Coagulation INR (0.86 - 1.14) 3.3 H PT Patient/Control Mix (9.5 - 12.7 SECONDS) 36.8 H Diagnosis, Assessment Plan Free Text DxA P NotesFree Text DxA P Notes:IMP: CAD - multivessel s/p ACB with DICKENS to LAD, saphenous vein to diagonal, OM, right PDA - 2020. Volume stable HLP DM AFL - HR variable. Therapeutic INR ANDREW thrombus. HTN PLAN: Resume low dose warfarin. Consider DEANA in 4-6 weeks if AFL/AFIB continues. PT at 0948 RPT #:[id number] OF REPORTPRProgress [id number]:23:00Z.[id number] for patient [id number]:49:03 2021-04-18 [id number]:45:00 [facility]CAWU 09:45:00 [facility] ([facility])Hospitalist Progress NoteREPORT#:[id number] REPORT STATUS: SignedDATE:04/18/21 TIME: 0945 PATIENT: COLE JEFFREY [place] UNIT #: [id number]#: [id number] [facility] AGE: 81 SEX: M ATTEND: AlmaRafal [facility] AUTHOR: Aarti Plummer MD R1 * ALL edits or amendments must be made on the electronic/computer document * Aarti Plummer 04/18/21 0945:SubjectiveChief Complaint:States he was tired and weak yesterday especially when doing PT. Noted to have bradycardia. BLE edema improved. Pain controlled.Eating/sleeping well. Review of SystemsConstitutional:Reports: generalized weakness, lethargy. Denies: chills, fatigue, fever, malaise, recent wt loss, other. Skin:Reports: bruising, contusion, ecchymosis. Denies: abrasion, diaphoresis, itching, laceration, rash, swelling, other. Allergy/Immun:Denies: allergic reaction, anaphylaxis, hives, itching, rhinorrhea, sneezing, other. Eyes:Denies: redness, discharge, visual loss/blurred, itching, diplopia, eye pain, photophobia, swelling, other. ENT:Denies: ear drainage, ear ringing, earache, hearing loss, mouth pain, nasal congestion, nose bleeding, sinus problem, sore throat, throat pain, throat swelling, tongue pain, tongue swelling, toothache, voice change, other. Respiratory:Denies: COWAN (dyspnea on exertion), hemoptysis, non productive cough, parox nocturnal dyspnea, pleurisy, pleuritic pain, pneumonia, productive cough (sputum), SOB, wheezing, other. Cardiovascular:Reports: edema. Denies: chest pain, COWAN (dyspnea on exertion), orthopnea, palpitations, parox nocturnal dyspnea, other. Objective GeneralVS/I O:Vital Signs: Date Time Temp Pulse Resp B/P B/P Pulse O2 O2 Flow FiO2 Mean Ox Delivery Rate 04/18 922 98.1 74 16 173/62 98.9 97 Room air 04/18 0540 97.7 53 18 183/78 112.8 96 Room air 04/17 1948 98.1 49 15 166/76 105.8 97 Room air 04/17 1452 98.1 48 12 144/72 96.3 96 04/17 1113 49 133/62 85.8 96 24 hour I O ending at 0700: 04/18 0700 04/17 1900 Intake Total 325 300 Output Total Balance 325 300 Intake, Oral 325 300 Number 1 Bowel Movements Number 0 Incontinent Voids Number Voids 5 PATIENT WEIGHT: Weight (lb): 265Weight (oz): 3.46Weight (kg): 120.300 Medications:Active Meds + DC'd Last 24 HrsAmlodipine Besylate (NORVASC TAB) 5 MG DAILY PO (UNV) Metoprolol Tartrate (LOPRESSOR) 50 MG Q12HR PO Warfarin Sodium (COUMADIN) 3 MG QPM PO Metoprolol Tartrate (LOPRESSOR) 75 MG Q12HR PO (DC) Diphenhydramine HCl (BENADRYL) 25 MG Q6H PRN PRN PO Levothyroxine Sodium (Synthroid) 100 MCG 0630 PO Digoxin (LANOXIN) 0.25 MG Q24H PO (CKD) Metformin HCl (GLUCOPHAGE) 1,000 MG AC DIN PO Aspirin (ASPIRIN EC) 81 MG DAILY PO Clopidogrel Bisulfate (PLAVIX) 75 MG DAILY PO Finasteride (PROSCAR) 5 MG DAILY PO Linagliptin (TRADJENTA) 5 MG DAILY PO Losartan Potassium (COZAAR) 100 MG DAILY PO Dextrose/Water (DEXTROSE 50% IN WATER) 12.5 GM ASDIR PRN IV Dextrose/Water (DEXTROSE 50% IN WATER) 25 GM ASDIR PRN IV Wound Care/Dressing Products ([facility]) 1 ROLDAN DAILY PRN PRN TOPICAL (CKD) Benzonatate (TESSALON PERLE) 100 MG TID PRN PRN PO Simethicone (MYLICON 80MG) 160 MG Q6H PRN PRN PO Acetaminophen (TYLENOL) 650 MG Q4H PRN PRN PO Amiodarone HCl (CORDARONE) 400 MG BID PO (CKD) Atorvastatin Calcium (LIPITOR) 80 MG BEDTIME PO Docusate Sodium (COLACE) 100 MG BID PO Famotidine (PEPCID) 20 MG BID PO Ferrous Sulfate (FEOSOL) 325 MG BID PO Insulin Human Lispro (HumaLOG) MEDIUM DOSE SLIDING SCALE AC HS SUBQ Tamsulosin HCl (FLOMAX) 0.4 MG BID PO Bisacodyl (DULCOLAX) 5 MG BID PRN PRN PO Bisacodyl (BISACODYL SUPP) 10 MG DAILY PRN PRN RECTAL Docusate Sodium (COLACE) 100 MG BID PRN PRN PO Magnesium Hydroxide (MILK OF MAGNESIA) 30 ML DAILY PRN PRN PO Nutrition assessment:The data set between the solid lines has been imported from the dietitian's assessment. Any exceptions have been noted under Provider comments. BMI Calculated: 36.0Nutrition related diagnosis: Nutrition diagnosis details: Nutrition problem: Increased nutrient needsNutrition etiology: INCREASED LETA/PRO NEEDS FOR , WOUND HEALINGNutrition signs and symptoms: POST OP CABGNutrition prescription: -RECOMMEND 1800 ADA DIABETIC DIET WITH 4 GM NA RESTRICTION -RECOMMEND TISH BID FOR WOUND HEALING -RD TO F/U PER PROTOCOLDietitian name: Aleta Jo RD LDAssessment completed: 04/13/21 Provider comments on imported dietitian assessment: Physical ExamGeneral appearance: alert, awake, oriented, no acute distress, pleasant, conversationalHead/Eyes: atraumatic, clear cornea, PERRLENT: normal ear left, normal ear rightNeck: full range of motion, non-tenderCardiovascular: irregularly irregular, normal capillary refillRespiratory: aerating well, clear to auscultationAbdomen: non-tender, normal bowel soundsGenitourinary: no flank pain, no foleyExtremities: edema (1+ edema to knees ), moves all, normal capillary refill, no cyanosis, 4cm contusion/hematoma on medial R thigh, TTPNeuro/HUMAN RESOURCES LEADER: alert, oriented X 3, CNII-XII intact, normal speechSkin: R thigh medial/L knee ecchymosis R buttock ulcer stage IIIPsychiatry: normal affect, normal judgment/insight, normal mood ResultsFindings/Data:Laboratory Tests 04/18 1649 1052 Chemistry Sodium (137 - 145 MMOL/L) 136 L Potassium (3.5 - 5.1 MMOL/L) 3.8 Chloride (98 - 107 MMOL/L) 101 Carbon Dioxide (22 - 30 MMOL/L) 29 BUN (9 - 20 MG/DL) 13 Creatinine (0.66 - 1.25 MG/DL) 1.10 Glomerular Filtr Rate > 60 Glucose (74 - 106 MG/DL) 110 H POC Glucose (60 - 99 MG/DL) 120 H 153 H 143 H 158 H Calcium (8.4 - 10.2 MG/DL) 7.8 L Laboratory Tests 04/18 506 Coagulation INR (0.86 - 1.14) 4.0 *H PT Patient/Control Mix (9.5 - 12.7 SECONDS) 44.9 *H Laboratory Tests 04/18 506 Hematology WBC (3.8 - 9.8 K/MM3) 7.3 RBC (3.95 - 5.67 M/MM3) 3.17 L Hgb (12.4 - 16.7 G/DL) 8.9 L Hct (35.9 - 49.5 %) 28.0 L MCV (81.7 - 96.1 fL) 88 MCH (27.6 - 33.2 pg) 28.1 MCHC (32.9 - 35.5 %) 31.8 L RDW (12.1 - 15.2 %) 15.5 H Plt Count (129 - 368 K/MM3) 450 H MPV (7.4 - 10.4 fl) 9.2 Neut % (Auto) (43 - 75 %) 57.3 Lymph % (Auto) (14 - 44 %) 20.2 Ocean % (Auto) (4 - 13 %) 15.3 H Eos % (Auto) (0 - 6 %) 5.9 Baso % (Auto) (0 - 2 %) 0.7 Neut # (Auto) (2.0 - 7.6 K/mm3) 4.17 Lymph # (Auto) (1.0 - 3.8 K/mm3) 1.47 Ocean # (Auto) (0.1 - 0.8 K/mm3) 1.11 H Eos # (Auto) (0.0 - 0.2 K/mm3) 0.43 H Baso # (Auto) (0.0 - 0.2 K/mm3) 0.05 Immature Gran % (0.0 - 2.0 %) 0.6 Nucleated RBC % (0 - 1.0 %) 0.0 Nucleated RBCs # (Man) (0.0 - 0.1 K/mm3) 0.00 Results: labs reviewed, vital signs stable Diagnosis, Assessment Plan Free Text DxA P NotesFree text DxA P notes:81 y/o M w/ PMH HTN, HLD, 90 pack-year smoking hx, DM2, CAD, PAD, frequent SVT/PVC, neuropathy who presented after anginal symptoms. Multi-vessel CAD on cath. S/p CABG 03/31. #CAD s/p CABG on 04/09#PAD#BLE edema, improved#Afib/Aflutter #Hematoma, medial R thighAfib/aflutter new since CABG. BLE edema improved on exam s/p lasix 40mg x2. Hematoma most likely 2/2 CABG and warfarin, still TTP. No DVT per U/S. IncisionsC/D/I. Able to do PT w/o chest pain. - Bradycardic. metoprolol tartrate decreased to 50mg bid as patient symptomatic.cont amiodarone, digoxin - ASA, atorvastatin, plavix- Pain management prn. - cardiology, CVS following #Left atrial appendage thrombus 2/2 afib/aflutterFound on recent DEANA this admission. Plans for future DEANA w/ ablation if still w/afib/aflutter and warfarin at goal. - Warfarin recently decreased to 3mg. INR 4. will hold warfarin today. Recheck INR tomorrow. - cardiology following #HTN Well controlled. - c/w losartan #DM2#Neuropathy BG Well controlled. - c/w home metformin, linagliptin, SSI. #Hypothyroid - home levothyroxine #Right buttock ulcer, stage III - wound physician following DVT PPX: warfarin Diet: cardiacfull code DC: 04/21 to home w/ HH Quality: Gen Med Crit Care VTE ProphylaxisVTE prophylaxis initiated: yes (warfarin) Current MedicationsCurrent medication review:I attest that the foregoing medication list in the medical record is true, accurate, and complete to the best of my knowledge. Advanced Care Plan 65 or OlderDiscussed with: patientDiscussion included: code status (full code) Aisha Lucas 04/18/21 1347:Attestations Teaching Physician AttestationF/U visit w/fellow:I saw the patient with the fellow and . . . agree with the fellow's findings and plan. at 1219 at 1348 RPT #:[id number] OF REPORTPRProgress [id number]:45:00Z.[id number] for patient [id number]:19:58 2021-04-17 [id number]:49:00 [facility] HCAWU 18:49:00 [facility] ([facility])Wound Care Progress NoteREPORT#:[id number] REPORT STATUS: SignedDATE:04/17/21 TIME: 1848 PATIENT: COLE JEFFREY [place] UNIT #: [id number]#: [id number] [facility] AGE: 81 SEX: M ATTEND: Rafal Marquez [facility] AUTHOR: January Mccollum MD * ALL edits or amendments must be made on the electronic/computer document * SubjectiveChief Complaint:follow up of woundsHPI:Patient is seen today for follow-up he sitting comfortably in the bed, no distress noted reported. He is responding appropriately. He had therapy earlier today. Objective GeneralVS:Last Documented: Result Date Time Pulse Ox 96 04/17 1452 B/P 144/72 04/17 1452 B/P Mean 96.3 04/17 1452 Temp 36.7 04/17 1452 Pulse 48 04/17 1452 Resp 12 04/17 1452 O2 Delivery Room air 04/15 1540 PATIENT WEIGHT: Weight (lb): 265Weight (oz): 3.46Weight (kg): 120.300 Medications:Active Meds + DC'd Last 24 HrsMetoprolol Tartrate (LOPRESSOR) 50 MG Q12HR PO Warfarin Sodium (COUMADIN) 3 MG QPM PO Metoprolol Tartrate (LOPRESSOR) 75 MG Q12HR PO (DC) Diphenhydramine HCl (BENADRYL) 25 MG Q6H PRN PRN PO Levothyroxine Sodium (Synthroid) 100 MCG 0630 PO Digoxin (LANOXIN) 0.25 MG Q24H PO (CKD) Warfarin Sodium (COUMADIN) 5 MG QPM PO (DC) Metformin HCl (GLUCOPHAGE) 1,000 MG AC DIN PO Aspirin (ASPIRIN EC) 81 MG DAILY PO Clopidogrel Bisulfate (PLAVIX) 75 MG DAILY PO Finasteride (PROSCAR) 5 MG DAILY PO Linagliptin (TRADJENTA) 5 MG DAILY PO Losartan Potassium (COZAAR) 100 MG DAILY PO Dextrose/Water (DEXTROSE 50% IN WATER) 12.5 GM ASDIR PRN IV Dextrose/Water (DEXTROSE 50% IN WATER) 25 GM ASDIR PRN IV Wound Care/Dressing Products ([facility]) 1 ROLDAN DAILY PRN PRN TOPICAL (CKD) Benzonatate (TESSALON PERLE) 100 MG TID PRN PRN PO Simethicone (MYLICON 80MG) 160 MG Q6H PRN PRN PO Acetaminophen (TYLENOL) 650 MG Q4H PRN PRN PO Amiodarone HCl (CORDARONE) 400 MG BID PO (CKD) Atorvastatin Calcium (LIPITOR) 80 MG BEDTIME PO Docusate Sodium (COLACE) 100 MG BID PO Famotidine (PEPCID) 20 MG BID PO Ferrous Sulfate (FEOSOL) 325 MG BID PO Insulin Human Lispro (HumaLOG) MEDIUM DOSE SLIDING SCALE AC HS SUBQ Metoprolol Tartrate (LOPRESSOR) 50 MG Q12HR PO (DC) Tamsulosin HCl (FLOMAX) 0.4 MG BID PO Bisacodyl (DULCOLAX) 5 MG BID PRN PRN PO Bisacodyl (BISACODYL SUPP) 10 MG DAILY PRN PRN RECTAL Docusate Sodium (COLACE) 100 MG BID PRN PRN PO Magnesium Hydroxide (MILK OF MAGNESIA) 30 ML DAILY PRN PRN PO Physical ExamGeneral appearance: alert, awake, oriented, no acute distressHead/eyes: atraumatic, clear cornea, normal conjunctiva/scleraCardiovascular: edema B/L lower extRespiratory: clear to auscultation, no distressAbdomen: no distention, no guardingGenitourinary: no foleyExtremities: edema, moves all Wound AssessmentWound Assessment 1: Type/cause: pressure Wound location: buttock (right) Tissue layers: subcutaneous Site condition: granulating, 04/17/21 Imporvement in the wound today, erpithelial resurfacing in the wound margin, overall measuring smaller than prior assessment. Wound bed is moist, pink, granular. Length (cm): 1.2 Width (cm): 2.5 Stage of pressure ulcer: stage III Wound margins: thickened Lucy-wound: excoriated ResultsFindings/Data:Allergies Allergy Severity Reaction Updated Coded Sulfa (Sulfonamide Unknown ITCHING 04/09/21 Antibiotics) canagliflozin (From Unknown ITCHING 04/09/21 INVOKANA) Laboratory Tests: 04/17 04/17 04/17 04/17 04/16 1649 1052 0610 0417 1953Chemistry POC Glucose (60 - 99 MG/DL) 143 H 158 H 113 H 126 HCoagulation INR (0.86 - 1.14) 3.1 H PT Patient/Control Mix (9.5 - 12.7 34.3 HSECONDS) 04/16 04/16 04/16 04/16 04/15 1656 1207 0557 0414 1945Chemistry POC Glucose (60 - 99 MG/DL) 141 H 184 H 99 140 HCoagulation INR (0.86 - 1.14) 2.7 H PT Patient/Control Mix (9.5 - 12.7 29.7 HSECONDS) Current Medications Sig/Lainey Start time Last Medication Dose Route Stop Time Status Admin Metoprolol Tartrate 50 MG Q12HR 04/17 2100 AC PO 05/17 09 Warfarin Sodium 3 MG QPM 04/17 1700 AC 04/17 PO 05/11 1701 1703 Metoprolol Tartrate 75 MG Q12HR 04/17 0900 DC 04/17 PO 05/10 2101 0815 Diphenhydramine HCl 25 MG Q6H PRN PRN 04/16 1145 AC 04/16 PO 05/16 1146 1320 Levothyroxine Sodium 100 MCG 0630 04/16 0900 AC 04/17 PO 05/16 0901 0651 Digoxin 0.25 MG Q24H 04/12 1700 CKD 04/16 PO 05/12 1701 1808 Warfarin Sodium 5 MG QPM 04/11 1700 DC 04/16 PO 05/11 1701 1849 Metformin HCl 1,000 MG AC DIN 04/11 1630 AC 04/17 PO 05/11 1631 1658 Aspirin 81 MG DAILY 04/11 09 AC 04/17 PO 05/11 0901 0816 Clopidogrel Bisulfate 75 MG DAILY 04/11 09 AC 04/17 PO 05/11 0901 0817 Finasteride 5 MG DAILY 04/11 09 AC 04/17 PO 05/11 0901 0817 Linagliptin 5 MG DAILY 04/11 09 AC 04/17 PO 05/11 0901 0815 Losartan Potassium 100 MG DAILY 04/11 09 AC 04/17 PO 05/11 0901 0816 Dextrose/Water 12.5 GM ASDIR PRN 04/10 2240 AC IV 05/10 2241 Dextrose/Water 25 GM ASDIR PRN 04/10 2240 AC IV 05/10 2241 Wound Care/Dressing 1 ROLDAN DAILY PRN PRN 04/10 2235 CKD Products TOPICAL 05/10 2236 Benzonatate 100 MG TID PRN PRN 04/10 2230 AC PO 05/10 2231 Simethicone 160 MG Q6H PRN PRN 04/10 2230 AC PO 05/10 2231 Acetaminophen 650 MG Q4H PRN PRN 04/10 2215 AC 04/17 PO 05/10 2216 0809 Amiodarone HCl 400 MG BID 04/10 2100 CKD 04/17 PO 05/10 210 0817 Atorvastatin Calcium 80 MG BEDTIME 04/10 2100 AC 04/16 PO 05/10 2101 2109 Docusate Sodium 100 MG BID 04/10 2100 AC 04/17 PO 05/10 210 0816 Famotidine 20 MG BID 04/10 2100 AC 04/17 PO 05/10 210 0817 Ferrous Sulfate 325 MG BID 04/10 2100 AC 04/17 PO 05/10 210 0816 Insulin Human Lispro See Dose AC HS 04/10 2100 AC 04/17 Insts (1) SUBQ 05/10 2101 1130 Metoprolol Tartrate 50 MG Q12HR 04/10 2100 DC 04/16 PO 11/28 2101 2108 Tamsulosin HCl 0.4 MG BID 04/10 2100 AC 04/17 PO 05/10 210 0816 Bisacodyl 5 MG BID PRN PRN 04/10 1550 AC PO 05/10 1551 Bisacodyl 10 MG DAILY PRN PRN 04/10 1550 AC RECTAL 05/10 1551 Docusate Sodium 100 MG BID PRN PRN 04/10 1550 AC PO 05/10 1551 Magnesium Hydroxide 30 ML DAILY PRN PRN 04/10 1550 AC PO 05/10 1551 Dose Instructions:(1)Insulin Human Lispro: MEDIUM DOSE SLIDING SCALE Laboratory Tests: 04/17 04/17 04/17 04/17 1649 1052 0610 0417 Chemistry POC Glucose (60 - 99 MG/DL) 143 H 158 H 113 H Coagulation INR (0.86 - 1.14) 3.1 H PT Patient/Control Mix (9.5 - 12.7 SECONDS) 34.3 H 04/16 1953 Chemistry POC Glucose (60 - 99 MG/DL) 126 H Diagnosis, Assessment PlanProblem List/A P: 1. 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 Hypothyroidism 3. Obesity 4. Peripheral artery disease 5. Diabetes 6. Coronary artery disease Free Text A P:Overall continued improvement in patient's sacral ulcer has noted today. Continue care with collagen and will reevaluate. Plan of care discussed with the care team. Patient to continue pressure relief as best as he is able to tolerate along with moisture control. at 1544 [facility] #:[id number] OF REPORTPNProcedure [id number]:49:00Z.[id number] 424AVAvailable for patient [id number]:45:28 2021-04-17 [id number]:32:[id number] [facility] 11:32[facility] [address] PATIENT NAME: COLE JEFFREY ADMIT DATE: 04/10/21ACCOUNT NO: [id number] ROOM NO: Z.309 AGE: 81 REPORT TYPE: PROGRESS NOTE SEX: M ADMITTING PHYSICIAN:Rafal Marquez MD ATTENDING PHYSICIAN:Rafal Marquez MD DATE: 04/17/2021 SUBJECTIVE: Mr. Jeffrey is seen on 04/17/2021 for rehabilitation direction fordebility associated with coronary artery disease resulting in quadrupleaortocoronary artery bypass graft surgery on 03/31/2021. The patient has beenfollowed closely by cardiology and cardiovascular surgery since his operation. He did have an abnormal rhythm, fluctuating between atrial fibrillation withrapid ventricular response, atrial flutter in sinus rhythm following hissurgery. The patient has been placed on oral anticoagulation and his INR todayreached at 3.1. He has been on warfarin 5 mg daily since coming to therehabilitation unit. The patient's diabetes is under fair control with bloodsugars mostly staying under 150 and occasional blood sugars in the high 100s. The patient remains on oral amiodarone at 400 mg twice daily. He is also onaspirin 81 mg daily and clopidogrel 75 mg daily along with digoxin 0.25 mgdaily. Diabetes is being treated with linagliptin 5 mg daily and metformin 1000mg before dinner along with regular insulin medium dose sliding scale beforemeal and at bedtime. This patient has been progressing in his rehabilitation, nonetheless. He hasmany chronic medical comorbidities, but has reached supervision level inhousehold mobility including bed mobility, transfers, and ambulation. He is nowindependent with feeding and oral hygiene, but still is requiring supervision tominimal assist with bathing, dressing, and footwear. He is also supervisionwith toileting hygiene and toilet transfers. His discharge date has been setfor 04/21/2021 and he will be going home to the care of his with homehealth, occupational therapy, physical therapy, visiting nurse, and home healthaide. He was seen today in the rehabilitation gym working with his physical therapiston the exercise machine and his vital signs showed temperature of 36.6 degreescentigrade, pulse of 57, respirations of 18, and blood pressure of 165/67 withan oxygen saturation of 91% on room air. He had his oxygen saturations measuredat other times this morning and they were more acceptable at 95% to 98%. Hissystolic blood pressures; however, remain elevated and his heart rate variedbetween 49 and 74. He is being monitored closely and we will continue on hispresent rehabilitation at this time. His prognosis is good to achieve hisfunctional goals of modified independence in all household mobility andactivities of daily living by his projected discharge date. Dictated By: Rafal Marquez MD WT: PN:Z.HIM/KREMI/NTS PATIENT NAME: COLE JEFFREY DT: 04/17/2021 11:42:46Conf#: [id number]#: [id number] Authenticated by Rafal Marquez MD On 04/20/2021 10:01:56 AM at 1001 PATIENT NAME: COLE JEFFREY [id number]:42:00Z.[id number] 63AVAvailable for patient [id number]:02:38 2021-04-17 [id number]:48:00 [facility]CA[facility]U 10:48:00 [facility] ([facility])Hospitalist Progress NoteREPORT#:[id number] REPORT STATUS: SignedDATE:04/17/21 TIME: 1048 PATIENT: COLE JEFFREY UNIT #: [id number]#: [id number] [facility] AGE: 81 SEX: M ATTEND: Rafal Marquez [facility] AUTHOR: Aarti Plummer MD R1 * ALL edits or amendments must be made on the electronic/computer document * Aarti Plummer 04/17/21 1048:SubjectiveChief Complaint:No diarrhea States bruise pain is better. BLE edema improved. Improving w/ PT. Eating/sleeping well. Review of SystemsConstitutional:Denies: chills, fatigue, fever, generalized weakness, lethargy, malaise, recent wt loss, other. Skin:Reports: bruising, contusion, ecchymosis, laceration (incisions). Denies: abrasion, diaphoresis, itching, rash, swelling, other. Allergy/Immun:Denies: allergic reaction, anaphylaxis, hives, itching, rhinorrhea, sneezing, other. Eyes:Denies: redness, discharge, visual loss/blurred, itching, diplopia, eye pain, photophobia, swelling, other. ENT:Denies: ear drainage, ear ringing, earache, hearing loss, mouth pain, nasal congestion, nose bleeding, sinus problem, sore throat, throat pain, throat swelling, tongue pain, tongue swelling, toothache, voice change, other. Respiratory:Denies: COWAN (dyspnea on exertion), hemoptysis, non productive cough, parox nocturnal dyspnea, pleurisy, pleuritic pain, pneumonia, productive cough (sputum), SOB, wheezing, other. Cardiovascular:Reports: edema. Denies: chest pain, COWAN (dyspnea on exertion), orthopnea, palpitations, parox nocturnal dyspnea, other. Neuro:Denies: bladder dysfunction, bowel dysfunction, change in LOC, confusion, dizziness, focal weakness, gait problem, headache, lightheaded, numbness, seizure, slurred speech, spinning sensation, syncope, unable to speak, vision change, weakness, other. Objective GeneralVS/I O:Vital Signs: Date Time Temp Pulse Resp B/P B/P Pulse O2 O2 Flow FiO2 Mean Ox Delivery Rate 04/17 0814 74 154/81 104.9 95 04/17 0347 97.9 57 18 165/67 99.9 91 04/17 0035 49 18 151/67 95.0 98 04/16 1950 97.9 55 18 161/63 95.2 98 04/16 1516 97.3 51 18 149/80 103.1 99 24 hour I O ending at 0700: 04/17 0700 04/16 1900 Intake Total 150 600 Output Total 350 Balance -200 600 Intake, Oral 150 600 Number 0 1 Bowel Movements Number 0 0 Incontinent Voids Number Voids 3 5 Output, Stool 0 Output, Urine 350 PATIENT WEIGHT: Weight (lb): 265Weight (oz): 3.46Weight (kg): 120.300 Medications:Active Meds + DC'd Last 24 HrsWarfarin Sodium (COUMADIN) 3 MG QPM PO Metoprolol Tartrate (LOPRESSOR) 75 MG Q12HR PO Diphenhydramine HCl (BENADRYL) 25 MG Q6H PRN PRN PO Levothyroxine Sodium (Synthroid) 100 MCG 0630 PO Digoxin (LANOXIN) 0.25 MG Q24H PO (CKD) Warfarin Sodium (COUMADIN) 5 MG QPM PO (DC) Metformin HCl (GLUCOPHAGE) 1,000 MG AC DIN PO Aspirin (ASPIRIN EC) 81 MG DAILY PO Clopidogrel Bisulfate (PLAVIX) 75 MG DAILY PO Finasteride (PROSCAR) 5 MG DAILY PO Linagliptin (TRADJENTA) 5 MG DAILY PO Losartan Potassium (COZAAR) 100 MG DAILY PO Dextrose/Water (DEXTROSE 50% IN WATER) 12.5 GM ASDIR PRN IV Dextrose/Water (DEXTROSE 50% IN WATER) 25 GM ASDIR PRN IV Wound Care/Dressing Products (MEDIHONEY) 1 ROLDAN DAILY PRN PRN TOPICAL (CKD) Benzonatate (TESSALON PERLE) 100 MG TID PRN PRN PO Simethicone (MYLICON 80MG) 160 MG Q6H PRN PRN PO Acetaminophen (TYLENOL) 650 MG Q4H PRN PRN PO Amiodarone HCl (CORDARONE) 400 MG BID PO (CKD) Atorvastatin Calcium (LIPITOR) 80 MG BEDTIME PO Docusate Sodium (COLACE) 100 MG BID PO Famotidine (PEPCID) 20 MG BID PO Ferrous Sulfate (FEOSOL) 325 MG BID PO Insulin Human Lispro (HumaLOG) MEDIUM DOSE SLIDING SCALE AC HS SUBQ Metoprolol Tartrate (LOPRESSOR) 50 MG Q12HR PO (DC) Tamsulosin HCl (FLOMAX) 0.4 MG BID PO Bisacodyl (DULCOLAX) 5 MG BID PRN PRN PO Bisacodyl (BISACODYL SUPP) 10 MG DAILY PRN PRN RECTAL Docusate Sodium (COLACE) 100 MG BID PRN PRN PO Magnesium Hydroxide (MILK OF MAGNESIA) 30 ML DAILY PRN PRN PO Nutrition assessment:The data set between the solid lines has been imported from the dietitian's assessment. Any exceptions have been noted under Provider comments. BMI Calculated: 36.0Nutrition related diagnosis: Nutrition diagnosis details: Nutrition problem: Increased nutrient needsNutrition etiology: INCREASED LETA/PRO NEEDS FOR , WOUND HEALINGNutrition signs and symptoms: POST OP CABGNutrition prescription: -RECOMMEND 1800 ADA DIABETIC DIET WITH 4 GM NA RESTRICTION -RECOMMEND TISH BID FOR WOUND HEALING -RD TO F/U PER PROTOCOLDietitian name: Aleta JoTATE LDAssessment completed: 04/13/21 Provider comments on imported dietitian assessment: Physical ExamGeneral appearance: alert, awake, oriented, no acute distress, pleasantHead/Eyes: atraumatic, clear cornea, PERRLENT: normal ear left, normal ear rightNeck: full range of motion, non-tenderCardiovascular: irregularly irregular, normal capillary refillRespiratory: aerating well, clear to auscultationAbdomen: non-tender, normal bowel soundsGenitourinary: no flank pain, no foleyExtremities: edema (1+ edema to knees ), moves all, normal capillary refill, no cyanosis, 4cm contusion/hematoma on medial R thigh, TTPNeuro/HUMAN RESOURCES LEADER: alert, oriented X 3, CNII-XII intact, normal speechSkin: R thigh medial/L knee ecchymosis R buttock ulcer stage IIIPsychiatry: normal affect, normal judgment/insight, normal mood ResultsFindings/Data:Laboratory Tests 04/17 04/16 04/16 04/16 0610 1953 1656 1207 Chemistry POC Glucose (60 - 99 MG/DL) 113 H 126 H 141 H 184 H Laboratory Tests 04/17 0417 Coagulation INR (0.86 - 1.14) 3.1 H PT Patient/Control Mix (9.5 - 12.7 SECONDS) 34.3 H Results: vital signs stable Diagnosis, Assessment Plan Free Text DxA P NotesFree text DxA P notes:81 y/o M w/ PMH HTN, HLD, 90 pack-year smoking hx, DM2, CAD, PAD, frequent SVT/PVC, neuropathy who presented after anginal symptoms. Multi-vessel CAD on cath. S/p CABG 03/31. #CAD s/p CABG on 04/09#PAD#BLE edema, improved#Afib/Aflutter #Hematoma, medial R thighAfib/aflutter new since CABG. BLE edema improved on exam s/p lasix 40mg x2. Hematoma most likely 2/2 CABG and warfarin, still TTP. No DVT per U/S. IncisionsC/D/I. Able to do PT w/o chest pain. - metoprolol tartrate increased to 75mg bid. cont amiodarone, digoxin - ASA, atorvastatin, plavix- Pain management prn. - cardiology, CVS following #Left atrial appendage thrombus 2/2 afib/aflutterFound on recent DEANA this admission. Plans for future DEANA w/ ablation if still w/afib/aflutter and warfarin at goal. - Warfarin decreased from 5mg --> 3mg. INR 3.1, follow trend. - cardiology following #HTN Well controlled. - c/w losartan #DM2#Neuropathy BG Well controlled. - c/w home metformin, linagliptin, SSI. #Hypothyroid - home levothyroxine #Right buttock ulcer, stage III - wound physician following DVT PPX: warfarin Diet: cardiacfull code Quality: Gen Med Crit Care VTE ProphylaxisVTE prophylaxis initiated: yes (warfarin) Current MedicationsCurrent medication review:I attest that the foregoing medication list in the medical record is true, accurate, and complete to the best of my knowledge. Advanced Care Plan 65 or OlderDiscussed with: patientDiscussion included: code status (full code) Aisha Lucas 04/18/21 1347:Attestations Teaching Physician AttestationF/U visit w/ resident:I saw the patient with the resident and . . . agree with the resident's findings and plan. at 1426 at 1347 RPT #:[id number] OF REPORTPRProgress [id number]:48:00Z.[id number] for patient [id number]:27:11 2021-04-17 [id number]:56:00 [facility] HCAWU 06:56:00 [facility] ([facility])Cardiology Progress NoteREPORT#:[id number] REPORT STATUS: SignedDATE:04/17/21 TIME: 06 PATIENT: COLE JEFFREY UNIT #: [id number]#: [id number] ROOM/BED: [facility]-ADOB: [birth year] AGE: 81 SEX: M ATTEND: Rafal Marquez [facility] AUTHOR: Ruiz Bhatti MD * ALL edits or amendments must be made on the electronic/computer document * SubjectiveChief Complaint:AFIBPatient reports:No: chest pain, palpitations, shortness of breath. Objective GeneralVS/I O:24 hour I O ending at 0700: 04/17 0700 04/16 1900 Intake Total 150 600 Output Total 350 Balance -200 600 Intake, Oral 150 600 Number 0 1 Bowel Movements Number 0 0 Incontinent Voids Number Voids 3 5 Output, Stool 0 Output, Urine 350 Vital Signs: Date Time Temp Pulse Resp B/P B/P Pulse O2 O2 Flow FiO2 Mean Ox Delivery Rate 04/17 0347 97.9 57 18 165/67 99.9 91 04/17 0035 49 18 151/67 95.0 98 04/16 1950 97.9 55 18 161/63 95.2 98 04/16 1516 97.3 51 18 149/80 103.1 99 04/16 0748 93 18 134/79 97.5 PATIENT WEIGHT: Weight (lb): 265Weight (oz): 3.46Weight (kg): 120.300 Medications:Active Meds + DC'd Last 24 HrsDiphenhydramine HCl (BENADRYL) 25 MG Q6H PRN PRN PO Levothyroxine Sodium (Synthroid) 100 MCG 0630 PO Digoxin (LANOXIN) 0.25 MG Q24H PO (CKD) Warfarin Sodium (COUMADIN) 5 MG QPM PO Metformin HCl (GLUCOPHAGE) 1,000 MG AC DIN PO Aspirin (ASPIRIN EC) 81 MG DAILY PO Clopidogrel Bisulfate (PLAVIX) 75 MG DAILY PO Finasteride (PROSCAR) 5 MG DAILY PO Levothyroxine Sodium (Synthroid) 100 MCG DAILY PO (DC) Linagliptin (TRADJENTA) 5 MG DAILY PO Losartan Potassium (COZAAR) 100 MG DAILY PO Dextrose/Water (DEXTROSE 50% IN WATER) 12.5 GM ASDIR PRN IV Dextrose/Water (DEXTROSE 50% IN WATER) 25 GM ASDIR PRN IV Wound Care/Dressing Products (MEDIHONEY) 1 ROLDAN DAILY PRN PRN TOPICAL (CKD) Benzonatate (TESSALON PERLE) 100 MG TID PRN PRN PO Simethicone (MYLICON 80MG) 160 MG Q6H PRN PRN PO Acetaminophen (TYLENOL) 650 MG Q4H PRN PRN PO Amiodarone HCl (CORDARONE) 400 MG BID PO (CKD) Atorvastatin Calcium (LIPITOR) 80 MG BEDTIME PO Docusate Sodium (COLACE) 100 MG BID PO Famotidine (PEPCID) 20 MG BID PO Ferrous Sulfate (FEOSOL) 325 MG BID PO Insulin Human Lispro (HumaLOG) MEDIUM DOSE SLIDING SCALE AC HS SUBQ Metoprolol Tartrate (LOPRESSOR) 50 MG Q12HR PO Tamsulosin HCl (FLOMAX) 0.4 MG BID PO Bisacodyl (DULCOLAX) 5 MG BID PRN PRN PO Bisacodyl (BISACODYL SUPP) 10 MG DAILY PRN PRN RECTAL Docusate Sodium (COLACE) 100 MG BID PRN PRN PO Magnesium Hydroxide (MILK OF MAGNESIA) 30 ML DAILY PRN PRN PO Physical ExamGeneral appearance: alert, awake, orientedHead/Eyes: atraumatic, normocephalicENT: moist mucosal membranesNeck: no JVDCardiovascular: CV assessment: irregularly irregularRespiratory: clear to auscultation, no distressLower extremity: LE assessment: no edemaMusculoskeletal: full range of motionNeuro/HUMAN RESOURCES LEADER: alert, oriented X 3, CN II-XII intactSkin: dry, intactWound/incision: Site condition: dressing clean dryPsychiatry: normal affect, normal judgment/insight, normal mood ResultsFindings/Data:Laboratory Tests 04/17 04/16 04/16 04/16 0610 1953 1656 1207 Chemistry POC Glucose (60 - 99 MG/DL) 113 H 126 H 141 H 184 H Laboratory Tests 04/17 0417 Coagulation INR (0.86 - 1.14) 3.1 H PT Patient/Control Mix (9.5 - 12.7 SECONDS) 34.3 H Diagnosis, Assessment Plan Free Text DxA P NotesFree Text DxA P Notes:IMP: CAD - multivessel s/p ACB with DICKENS to LAD, saphenous vein to diagonal, OM, right PDA - 2020. Volume stable HLP DM AFL - HR variable. Therapeutic INR ANDREW thrombus. HTN PLAN: Decrease warfarin Increase metoprolol Consider DEANA at 4-6 weeks after therapeutic INR if AFL/AFIB continues. PT at 0719 RPT #:[id number] OF REPORTPRProgress [id number]:56:00Z.[id number] for patient [id number]:19:52 2021-04-16 [id number]:[id number] [facility] 19:08:00 [address] [place] [address] PATIENT NAME: COLE JEFFREY ADMIT DATE: 04/10/21ACCOUNT NO: [id number] ROOM NO: [facility] AGE: 81 REPORT TYPE: ELECTROCARDIOGRAM SEX: M ADMITTING PHYSICIAN:Rafal Marquez MD ATTENDING PHYSICIAN:Rafal Marquez MD Order:[id number] Reason : Atrial Flutter Test Date/Time Stamp:TueApr 16 2021 19:08:41Blood Pressure : / mmHGVent. Rate : 066 BPM Atrial Rate : 053 BPM P-R Int : 000 ms QRS Dur : 164 ms QT Int : 464 ms P-R-T Axes : 000 -53 101 degrees QTc Int : 486 ms Atrial fibrillationRight bundle branch blockLeft anterior fascicular block Bifascicular block T wave abnormality, consider lateral ischemia or digitalis effectAbnormal ECGWhen compared with ECG of 15-APR-2021 07:41,Atrial fibrillation has replaced Sinus rhythmVent. rate has decreased BY 38 BPMRight bundle branch block has replaced Nonspecific intraventricular blockConfirmed by NONI MARQUEZ ([id number]) on 04/20/2021 4:49:45 PM Referred By: Rafal Marquez Confirmed by:NONI MARQUEZ at 1649 PATIENT NAME: COLE JEFFREY .[id number] for patient [id number]:49:58 2021-04-16 [id number]:23:[id number] [facility] 11:23:00 [address] [place] [address] PATIENT NAME: COLE JEFFREY ADMIT DATE: 04/10/21ACCOUNT NO: [id number] ROOM NO: [facility] AGE: 81 REPORT TYPE: PROGRESS NOTE SEX: M ADMITTING PHYSICIAN:Rafal Marquez MD ATTENDING PHYSICIAN:Rafal Marquez MD DATE: 04/16/2021 Mr. Mancuso is seen on 04/16/2021 for rehabilitation direction and for initialinterdisciplinary team conference to be documented elsewhere for debilityassociated with coronary artery disease. The patient underwent a quadrupleaortocoronary artery bypass graft surgery on 03/31/2021 after presenting with achronic chest and left arm pain to his technology solutions architect, who performed a left heartcatheterization, which revealed severe multivessel obstructive coronary arterydisease. He was then taken to surgery and postoperatively experienced atrialfibrillation with rapid ventricular response and was begun on oralanticoagulation. The patient's INR today is up to 2.7, the highest it has beenand certainly within therapeutic range. His enoxaparin has been discontinuedand he received 5 mg of warfarin last night. [facility] his [facility]. The patient was seen today in his room. He was up in his wheelchair, fullydressed, alert and oriented, in no distress. Affect pleasant. Speechintelligible and fluent. Thought content reasonable, relevant, and appropriate. HEENT, normocephalic, atraumatic. Pupils equal, regular, react to light andaccommodate. Extraocular movements are intact. His respirations were quiet andunlabored. He was breathing room air and his oxygen saturation this morning was97%. His other vital signs early this morning showed a normal temperature witha pulse of 70, respirations 16, blood pressure 150/76, his systolic bloodpressures fluctuate somewhat. The patient has participated in hisrehabilitation program on a consistent daily basis and he is presently mostly atan independent supervision level for activities of daily living and mobility. His team conference update from physical therapy yesterday showed that he wasstill needing minimal assist with bed mobility and transfers and ambulation,although he admitted that he was getting up at night to go to the bathroom byhimself with no assistance. In occupational therapy, he has progressed fromsupervision to independent in oral care and feeding, maximal assist to standbyassist in bathing and moderate assist to standby assist in upper body dressing,maximal assist in lower body dressing and toileting to standby assistance. Hewill be discussed at his initial interdisciplinary team conference thisafternoon to determine his function potential, establish short and long-termrehabilitation objectives, confirm his discharge plan, and project a definitedischarge date. Dictated By: Rafal Marquez MD WT: PN:Z.JAMES/CONOR/NTSDD: 04/16/2021 11:23:02 PATIENT NAME: COLE JEFFREY Conf#: [id number]/DID#: [id number] Authenticated by Rafal Marquez MD On 04/16/2021 01:34:19 PM at 0134 PATIENT NAME: COLE JEFFREY [id number]:31:00Z.[id number] 51AVAvailable for patient [id number]:34:54 2021-04-15 [id number]:33:00 [facility] 22:33:00 [facility] ([facility])Wound Care Progress NoteREPORT#:[id number] REPORT STATUS: SignedDATE:04/15/21 TIME: 2232 PATIENT: COLE JEFFREY UNIT #: [id number]#: [id number] [facility] AGE: 81 SEX: M ATTEND: Rafal Marquez [facility] AUTHOR: January Mccollum MD * ALL edits or amendments must be made on the electronic/computer document * SubjectiveChief Complaint:Follow-up of woundsHPI:Patient is seen today for follow-up of his wounds in the rehab unit, he is awakealert, no distress noted. He is responding appropriately. Objective GeneralVS:Last Documented: Result Date Time Pulse Ox 95 04/15 1946 B/P 127/66 04/15 1946 B/P Mean 86.6 04/15 1946 Temp 36.7 04/15 1946 Pulse 78 04/15 1946 Resp 16 04/15 1946 O2 Delivery Room air 04/15 1540 PATIENT WEIGHT: Weight (lb): 265Weight (oz): 3.46Weight (kg): 120.300 Medications:Active Meds + DC'd Last 24 HrsCholestyramine Resin (QUESTRAN PACK) 1 PKT TID PRN PRN PO (DC) Digoxin (LANOXIN) 0.25 MG Q24H PO (CKD) Warfarin Sodium (COUMADIN) 5 MG QPM PO Metformin HCl (GLUCOPHAGE) 1,000 MG AC DIN PO Aspirin (ASPIRIN EC) 81 MG DAILY PO Clopidogrel Bisulfate (PLAVIX) 75 MG DAILY PO Finasteride (PROSCAR) 5 MG DAILY PO Levothyroxine Sodium (Synthroid) 100 MCG DAILY PO Linagliptin (TRADJENTA) 5 MG DAILY PO Losartan Potassium (COZAAR) 100 MG DAILY PO Enoxaparin Sodium (LOVENOX) 60 MG 0600 SUBQ (DC) Dextrose/Water (DEXTROSE 50% IN WATER) 12.5 GM ASDIR PRN IV Dextrose/Water (DEXTROSE 50% IN WATER) 25 GM ASDIR PRN IV Wound Care/Dressing Products (MEDIHONEY) 1 ROLDAN DAILY PRN PRN TOPICAL (CKD) Benzonatate (TESSALON PERLE) 100 MG TID PRN PRN PO Simethicone (MYLICON 80MG) 160 MG Q6H PRN PRN PO Acetaminophen (TYLENOL) 650 MG Q4H PRN PRN PO Amiodarone HCl (CORDARONE) 400 MG BID PO (CKD) Atorvastatin Calcium (LIPITOR) 80 MG BEDTIME PO Docusate Sodium (COLACE) 100 MG BID PO Famotidine (PEPCID) 20 MG BID PO Ferrous Sulfate (FEOSOL) 325 MG BID PO Insulin Human Lispro (HumaLOG) MEDIUM DOSE SLIDING SCALE AC HS SUBQ Metoprolol Tartrate (LOPRESSOR) 50 MG Q12HR PO Tamsulosin HCl (FLOMAX) 0.4 MG BID PO Bisacodyl (DULCOLAX) 5 MG BID PRN PRN PO Bisacodyl (BISACODYL SUPP) 10 MG DAILY PRN PRN RECTAL Docusate Sodium (COLACE) 100 MG BID PRN PRN PO Magnesium Hydroxide (MILK OF MAGNESIA) 30 ML DAILY PRN PRN PO Nutrition assessment:The data set between the solid lines has been imported from the dietitian's assessment. Any exceptions have been noted under Provider comments. BMI Calculated: 36.0Nutrition related diagnosis: Nutrition diagnosis details: Nutrition problem: Increased nutrient needsNutrition etiology: INCREASED LETA/PRO NEEDS FOR , WOUND HEALINGNutrition signs and symptoms: POST OP CABGNutrition prescription: -RECOMMEND 1800 ADA DIABETIC DIET WITH 4 GM NA RESTRICTION -RECOMMEND TISH BID FOR WOUND HEALING -RD TO F/U PER PROTOCOLDietitian name: Aleta Jo RD LDAssessment completed: 04/13/21 Provider comments on imported dietitian assessment: Physical ExamGeneral appearance: alert, awake, no acute distressHead/eyes: atraumatic, clear corneaCardiovascular: normal heart sounds, regular rate rhythmRespiratory: clear to auscultation, no distressAbdomen: non-tender, normal bowel sounds, no guardingGenitourinary: no foleyExtremities: edema, moves all Wound AssessmentWound Assessment 1: Type/cause: pressure Wound location: buttock (right) Tissue layers: subcutaneous Site condition: erythema, granulating, dressing clean dry, dressing intact,edges approximated, incision intact, no changes in wound, wound bed ins pink, moist, granular with intact periwound Length (cm): 1.2 Width (cm): 2.5 Stage of pressure ulcer: stage III Wound margins: thickened Lucy-wound: excoriated ResultsFindings/Data:Allergies Allergy Severity Reaction Updated Coded Sulfa (Sulfonamide Unknown ITCHING 04/09/21 Antibiotics) canagliflozin (From Unknown ITCHING 04/09/21 INVOKANA) Laboratory Tests 04/14/21 0447:[Embedded Image Not Available]Laboratory Tests: 04/15 04/15 04/15 04/15 1945 1652 1131 0546 Chemistry POC Glucose (60 - 99 MG/DL) 140 H 173 H 150 H 87 04/15 04/14 04/14 04/14 04/14 0421 2040 1620 1119 0633Chemistry POC Glucose (60 - 99 MG/DL) 95 110 H 101 H 66Coagulation INR (0.86 - 1.14) 2.3 H PT Patient/Control Mix (9.5 - 12.7 25.2 HSECONDS) 04/14 447 Chemistry Sodium (137 - 145 MMOL/L) 136 L Potassium (3.5 - 5.1 MMOL/L) 3.7 Chloride (98 - 107 MMOL/L) 103 Carbon Dioxide (22 - 30 MMOL/L) 26 Anion Gap (14 - 24 MMOL/L) 11 L BUN (9 - 20 MG/DL) 13 Creatinine (0.66 - 1.25 MG/DL) 1.20 Glomerular Filtr Rate 58 Glucose (74 - 106 MG/DL) 56 L Calcium (8.4 - 10.2 MG/DL) 8.0 L Coagulation INR (0.86 - 1.14) 1.8 H PT Patient/Control Mix (9.5 - 12.7 SECONDS) 20.1 H Hematology WBC (3.8 - 9.8 K/MM3) 9.2 RBC (3.95 - 5.67 M/MM3) 3.08 L Hgb (12.4 - 16.7 G/DL) 8.6 L Hct (35.9 - 49.5 %) 27.2 L MCV (81.7 - 96.1 fL) 88 MCH (27.6 - 33.2 pg) 27.9 MCHC (32.9 - 35.5 %) 31.6 L RDW (12.1 - 15.2 %) 15.8 H Plt Count (129 - 368 K/MM3) 466 H MPV (7.4 - 10.4 fl) 9.3 Neut % (Auto) (43 - 75 %) 65.7 Lymph % (Auto) (14 - 44 %) 16.4 Ocean % (Auto) (4 - 13 %) 12.7 Eos % (Auto) (0 - 6 %) 3.7 Baso % (Auto) (0 - 2 %) 0.4 Neut # (Auto) (2.0 - 7.6 K/mm3) 6.04 Lymph # (Auto) (1.0 - 3.8 K/mm3) 1.51 Ocean # (Auto) (0.1 - 0.8 K/mm3) 1.17 H Eos # (Auto) (0.0 - 0.2 K/mm3) 0.34 H Baso # (Auto) (0.0 - 0.2 K/mm3) 0.04 Immature Gran % (0.0 - 2.0 %) 1.1 Nucleated RBC % (0 - 1.0 %) 0.0 Nucleated RBCs # (Man) (0.0 - 0.1 K/mm3) 0.00 Current Medications Sig/Lainey Start time Last Medication Dose Route Stop Time Status Admin Cholestyramine Resin 1 PKT TID PRN PRN 04/14 0030 DC 04/14 PO 05/14 003 0049 Digoxin 0.25 MG Q24H 04/12 170 CKD 04/15 PO 05/12 1701 1700 Warfarin Sodium 5 MG QPM 04/11 1700 AC 04/15 PO 05/11 1701 1700 Metformin HCl 1,000 MG AC DIN 04/11 1630 AC 04/15 PO 05/11 1631 1659 Aspirin 81 MG DAILY 04/11 09 AC 04/15 PO 05/11 0901 0907 Clopidogrel Bisulfate 75 MG DAILY 04/11 09 AC 04/15 PO 05/11 0901 0908 Finasteride 5 MG DAILY 04/11 09 AC 04/15 PO 05/11 0901 0907 Levothyroxine Sodium 100 MCG DAILY 04/11 09 AC 04/15 PO 05/11 0901 0906 Linagliptin 5 MG DAILY 04/11 09 AC 04/15 PO 05/11 0901 0908 Losartan Potassium 100 MG DAILY 04/11 09 AC 04/15 PO 05/11 0901 0908 Enoxaparin Sodium 60 MG 0600 04/11 0600 DC 04/15 SUBQ 05/11 0601 0601 Dextrose/Water 12.5 GM ASDIR PRN 04/10 2240 AC IV 05/10 2241 Dextrose/Water 25 GM ASDIR PRN 04/10 2240 AC IV 05/10 2241 Wound Care/Dressing 1 ROLDAN DAILY PRN PRN 04/10 2235 CKD Products TOPICAL 05/10 2236 Benzonatate 100 MG TID PRN PRN 04/10 2230 AC PO 05/10 2231 Simethicone 160 MG Q6H PRN PRN 04/10 2230 AC PO 05/10 2231 Acetaminophen 650 MG Q4H PRN PRN 04/10 2215 AC 04/15 PO 05/10 2212051 Amiodarone HCl 400 MG BID 04/10 2100 CKD 04/15 PO 05/10 Atorvastatin Calcium 80 MG BEDTIME 04/10 2100 AC 04/15 PO 05/10 Docusate Sodium 100 MG BID 04/10 2100 AC 04/15 PO 05/10 Famotidine 20 MG BID 04/10 2100 AC 04/15 PO 05/10 Ferrous Sulfate 325 MG BID 04/10 2100 AC 04/15 PO 05/10 Insulin Human Lispro See Dose AC HS 04/10 2100 AC 04/15 Insts (1) SUBQ 05/10 2101 1630 Metoprolol Tartrate 50 MG Q12HR 04/10 2100 AC 04/15 PO 05/10 Tamsulosin HCl 0.4 MG BID 04/10 2100 AC 04/15 PO 05/10 210 2051 Bisacodyl 5 MG BID PRN PRN 04/10 1550 AC PO 05/10 1551 Bisacodyl 10 MG DAILY PRN PRN 04/10 1550 AC RECTAL 05/10 1551 Docusate Sodium 100 MG BID PRN PRN 04/10 1550 AC PO 05/10 1551 Magnesium Hydroxide 30 ML DAILY PRN PRN 04/10 1550 AC PO 05/10 1551 Dose Instructions:(1)Insulin Human Lispro: MEDIUM DOSE SLIDING SCALE Laboratory Tests: 04/15 04/15 04/15 04/15 04/15 1945 1652 1131 0546 0421Chemistry POC Glucose (60 - 99 MG/DL) 140 H 173 H 150 H 87Coagulation INR (0.86 - 1.14) 2.3 H PT Patient/Control Mix (9.5 - 12.7 25.2 HSECONDS) Diagnosis, Assessment PlanProblem List/A P: 1. 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 Hypothyroidism 3. Obesity 4. Peripheral artery disease 5. Diabetes 6. Coronary artery disease Free Text A P:Patient seen today for follow-up of his wound, care will be continued with collagen which will be changed every other day and as needed. I performed care with the care team present at the bedside with patient tolerated well. Encourage which shift with sitting, and frequent repositioning with laying down. Plan of care discussed with patient with care team. at 1541 RPT #:[id number] OF REPORTPNProcedure [id number]:33:00Z.[id number] 449AVAvailable for patient [id number]:41:58 2021-04-15 [id number]:04:00 [facility] Progress NoteREPORT#:[id number] REPORT STATUS: SignedDATE:04/15/21 TIME: 1404 PATIENT: COLE JEFFREY VICK UNIT #: [id number]#: [id number] ROOM/BED: 309-ADOB: [birth year] AGE: 81 SEX: M ATTEND: Rafal Marquez [facility] AUTHOR: Aarti Plummer MD R1 * ALL edits or amendments must be made on the electronic/computer document * Aarti Plummer 04/15/21 1404:SubjectiveChief Complaint:Diarrhea resolved. States bruise pain a little better. BLE edema improved. Eating/sleeping well. Review of SystemsConstitutional:Denies: chills, fatigue, fever, generalized weakness, lethargy, malaise, recent wt loss, other. Skin:Reports: bruising, contusion, laceration (incisions). Denies: abrasion, diaphoresis, ecchymosis, itching, rash, swelling, other. Allergy/Immun:Denies: allergic reaction, anaphylaxis, hives, itching, rhinorrhea, sneezing, other. Eyes:Denies: redness, discharge, visual loss/blurred, itching, diplopia, eye pain, photophobia, swelling, other. ENT:Denies: ear drainage, ear ringing, earache, hearing loss, mouth pain, nasal congestion, nose bleeding, sinus problem, sore throat, throat pain, throat swelling, tongue pain, tongue swelling, toothache, voice change, other. Respiratory:Reports: non productive cough. Denies: COWAN (dyspnea on exertion), hemoptysis, parox nocturnal dyspnea, pleurisy, pleuritic pain, pneumonia, productive cough (sputum), SOB, wheezing, other. Cardiovascular:Reports: edema. Denies: chest pain, COWAN (dyspnea on exertion), orthopnea, palpitations, parox nocturnal dyspnea, other. GI:Denies: abdominal pain, anorexia, constipation, diarrhea, dysphagia, GERD, hematemesis, hematochezia, hiatal hernia, melena, nausea, rectal pain, vomiting,other. Objective GeneralVS/I O:Vital Signs: Date Time Temp Pulse Resp B/P B/P Pulse O2 O2 Flow FiO2 Mean Ox Delivery Rate 04/15 0900 102 147/84 104.8 04/15 043 98.1 76 17 125/56 78.9 95 Room air 04/15 152 98.4 54 18 126/71 89.3 94 04/14 2007 97.5 98 17 152/90 110.2 97 Room air 04/14 1616 98.6 41 16 132/60 83.8 95 Room air 24 hour I O ending at 0700: 04/15 0700 04/14 1900 Intake Total 300 800 Output Total 600 Balance -300 800 Intake, Oral 300 800 Number 0 0 Incontinent Voids Number Voids 2 3 Output, Urine 600 PATIENT WEIGHT: Weight (lb): 265Weight (oz): 3.46Weight (kg): 120.300 Medications:Active Meds + DC'd Last 24 HrsCholestyramine Resin (QUESTRAN PACK) 1 PKT TID PRN PRN PO (CKD) Digoxin (LANOXIN) 0.25 MG Q24H PO (CKD) Warfarin Sodium (COUMADIN) 5 MG QPM PO Metformin HCl (GLUCOPHAGE) 1,000 MG AC DIN PO Aspirin (ASPIRIN EC) 81 MG DAILY PO Clopidogrel Bisulfate (PLAVIX) 75 MG DAILY PO Finasteride (PROSCAR) 5 MG DAILY PO Levothyroxine Sodium (Synthroid) 100 MCG DAILY PO Linagliptin (TRADJENTA) 5 MG DAILY PO Losartan Potassium (COZAAR) 100 MG DAILY PO Enoxaparin Sodium (LOVENOX) 60 MG 0600 SUBQ (DC) Dextrose/Water (DEXTROSE 50% IN WATER) 12.5 GM ASDIR PRN IV Dextrose/Water (DEXTROSE 50% IN WATER) 25 GM ASDIR PRN IV Wound Care/Dressing Products (MEDIHONEY) 1 ROLDAN DAILY PRN PRN TOPICAL (CKD) Benzonatate (TESSALON PERLE) 100 MG TID PRN PRN PO Simethicone (MYLICON 80MG) 160 MG Q6H PRN PRN PO Acetaminophen (TYLENOL) 650 MG Q4H PRN PRN PO Amiodarone HCl (CORDARONE) 400 MG BID PO (CKD) Atorvastatin Calcium (LIPITOR) 80 MG BEDTIME PO Docusate Sodium (COLACE) 100 MG BID PO Famotidine (PEPCID) 20 MG BID PO Ferrous Sulfate (FEOSOL) 325 MG BID PO Insulin Human Lispro (HumaLOG) MEDIUM DOSE SLIDING SCALE AC HS SUBQ Metoprolol Tartrate (LOPRESSOR) 50 MG Q12HR PO Tamsulosin HCl (FLOMAX) 0.4 MG BID PO Bisacodyl (DULCOLAX) 5 MG BID PRN PRN PO Bisacodyl (BISACODYL SUPP) 10 MG DAILY PRN PRN RECTAL Docusate Sodium (COLACE) 100 MG BID PRN PRN PO Magnesium Hydroxide (MILK OF MAGNESIA) 30 ML DAILY PRN PRN PO Nutrition assessment:The data set between the solid lines has been imported from the dietitian's assessment. Any exceptions have been noted under Provider comments. BMI Calculated: 36.0Nutrition related diagnosis: Nutrition diagnosis details: Nutrition problem: Increased nutrient needsNutrition etiology: INCREASED LETA/PRO NEEDS FOR , WOUND HEALINGNutrition signs and symptoms: POST OP CABGNutrition prescription: -RECOMMEND 1800 ADA DIABETIC DIET WITH 4 GM NA RESTRICTION -RECOMMEND TISH BID FOR WOUND HEALING -RD TO F/U PER PROTOCOLDietitian name: Aleta Jo RD LDAssessment completed: 04/13/21 Provider comments on imported dietitian assessment: Physical ExamGeneral appearance: alert, awake, oriented, no acute distress, pleasant, conversationalHead/Eyes: atraumatic, clear cornea, PERRLENT: normal ear left, normal ear rightNeck: full range of motion, non-tenderCardiovascular: irregularly irregular, normal capillary refillRespiratory: aerating well, clear to auscultationAbdomen: non-tender, normal bowel soundsGenitourinary: no flank pain, no foleyExtremities: edema (1+ edema to knees ), moves all, normal capillary refill, no cyanosis, 4cm contusion/hematoma on medial R thigh, TTPNeuro/HUMAN RESOURCES LEADER: alert, oriented X 3, CNII-XII intact, normal speechSkin: R thigh medial/L knee ecchymosis R buttock ulcer stage IIIPsychiatry: normal affect, normal judgment/insight, normal mood ResultsFindings/Data:Laboratory Tests 04/15 04/15 04/14 04/14 1131 0546 2040 1620 Chemistry POC Glucose (60 - 99 MG/DL) 150 H 87 95 110 H Laboratory Tests 04/15 0421 Coagulation INR (0.86 - 1.14) 2.3 H PT Patient/Control Mix (9.5 - 12.7 SECONDS) 25.2 H Results: labs reviewed, vital signs stable Diagnosis, Assessment Plan Free Text DxA P NotesFree text DxA P notes:81 y/o M w/ PMH HTN, HLD, 90 pack-year smoking hx, DM2, CAD, PAD, frequent SVT/PVC, neuropathy who presented after anginal symptoms. Multi-vessel CAD on cath. S/p CABG 03/31. #CAD s/p CABG on 04/09#PAD#BLE edema, improved#Afib/Aflutter #Hematoma, medial R thighAfib/aflutter new since CABG. BLE edema improved on exam s/p lasix 40mg x2. Hematoma most likely 2/2 CABG and warfarin, still TTP. Incisions C/D/I. Able to do PT w/o chest pain. - cont metoprolol tartrate, amiodarone, digoxin - ASA, atorvastatin, plavix- BLE U/S to evaluate hematoma per CVS, f/u. Pain management prn. - cardiology, CVS following #Left atrial appendage thrombus 2/2 afib/aflutterFound on recent DEANA this admission. Plans for future DEANA w/ ablation if still w/afib/aflutter and warfarin at goal. - cont Warfarin 5mg. INR at goal, follow trend. - d/c lovenox- cardiology following #HTN Well controlled. - c/w losartan #DM2#Neuropathy BG Well controlled. - c/w home metformin, linagliptin, SSI. #Hypothyroid - home levothyroxine #Right buttock ulcer, stage III - wound physician following DVT PPX: warfarin Diet: cardiacfull code Quality: Gen Med Crit Care VTE ProphylaxisVTE prophylaxis initiated: yes (warfarin) Current MedicationsCurrent medication review:I attest that the foregoing medication list in the medical record is true, accurate, and complete to the best of my knowledge. Advanced Care Plan 65 or OlderDiscussed with: patientDiscussion included: code status (full code) Radha Haas 04/15/21 1436:Attestations Teaching Physician AttestationF/U visit w/ resident:I saw the patient with the resident and . . . agree with the resident's findings and plan. at 1412 at 2059 RPT #:[id number] OF REPORTPRProgress [id number]:04:00Z.[id number] for patient [id number]:12:30 2021-04-15 [id number]:25:00 [facility] 13:25:00 [facility])Rehab Team ConferenceREPORT#:[id number] REPORT STATUS: SignedDATE:04/15/21 TIME: 1325 PATIENT: COLE JEFFREY VICK UNIT #: [id number]#: [id number] [address] AGE: 81 SEX: M ATTEND: Rafal Marquez MDA AUTHOR: Rafal Marquez MD * ALL edits or amendments must be made on the electronic/computer document * Rehabilitation Team Conference Weekly Team ConferenceTeam conf information:Date of conference: 04/16/21Conference type: InitialConference scribe: Khushbu De La O PT INTERDISCIPLINARY TEAM MEETING PARTICIPANTS: TITLE NAME MD RUBEN Díaz, RN PT Ac Evans, PT OT Deanna Ha OT CM/SW Enedina Espinoza RN [facility] Sammie Horowitz, SCOTT Staff (8) Pascual Love PT Staff (9) Staff (10) Staff (11) OTHER NAME CREDENTIALS 1 KIRT PADILLA PHD 2 3 4 FUNCTIONAL CHANGE: TYPE ADMISSION TOTAL INTERIM TOTAL CHANGE Self care 19 32 13 Transfer 17 25 8 Mobility 12 29 17 Wheelchair distance: 150ftMobility description: SLOW CARLOS FORWARD LEAN WIDE RUSS BOWEL AND BLADDER STATUS: Bowel continence admission rating: Always continentBladder continence admission rating: Always continentBowel and bladder team conference update: CONTINENT OF BOWEL AND BLADDER. INTERDISCIPLINARY TEAM UPDATES: NICK team conference update: PATIENT AAO X4 , INTERACTING WELL WITH STAFF, ABLE TO MAKE NEEDS KNOWN. DOING WELL WITH TRANSFER, NOW STANDBY ASSISST AND TOILETINGIS INDEPENDENT. STAGE 3 PRESSURE ULCER TO THE RIGHT SIDE OF BUTTOCKS IS HEALINGWELL. WOUND PICTURE TAKEN AND PLACE IN CHART. SURGICAL INCISIONS HEALING WELL,NO REDNESS OR DRAINAGE NOTED. PATIENT REMAIN ON TELE MONITOR RUNNING SINUS BRADY49, PATIENT BEING MONITORED CLOSELY. DRAINAGE NOTEDPT team conference update: BED MOB - MIN.A TRANSFERS - MIN.A RW, BED TO WC, WC TO BED STAND-PIVOT GAIT TR - MIN.A 150-200FT RW at PHU RPE 12 BALANCE - SITTING- GOOD, STANMDING - FAIR PLUS ENDURANCE - FAIR PLUS WITH ACTIVITYOT team conference update: PT HAS PROGRESSED FROM SUP TO INDEP IN ORAL CARE AND EATING, FROM MAX A TO SBA IN BATHING, FROM PARTIAL A TO SBA IN UB DRESSING, FROMMAX A IN LB DRESSING AND FOOTWAER TO SBA IN BOTH, AND FROM MAX A IN TOILETING TOSBA. THE PATIENT CONTINUES TO BENEFIT FROM INTENSIVE OT SERVICES TO IMPROVE SAFETY AWARENESS, ENERGY CONSERVATION, ESTABLISH STERNAL HEP, EDEMA MANAGEMENT, AND TO INCREASE ACTIVITY TOLERANCE. ST team conference update: CM or SW team conference update: [facility] WITH . HOME HEALTH SERVICES. GOOD FAMILY SUPPORT.Other discipline update 1: Other discipline update 2: Other discipline update 3: REHAB DC GOALS: Patient's identified discharge goal: BE WELL AND GO HOME OT: "TO GET BACK TO NORMAL. TO WALK." PT: WALK OUTDOOR AGAIN , INDEPENDENTLY Eating discharge goal: Independent (6) Shower/bathe self discharge goal: Independent (6) Upper body dressing discharge goal: Independent (6) Lower body dressing discharge goal: Independent (6) Chair/bed to chair transfer discharge goal: Independent (6) Transfer on/off toilet or commode discharge goal: Setup/clean-up only (5) Walking 50 feet with two turns discharge goal: Independent (6) Walking 150 feet discharge goal: Independent (6) Four steps discharge goal: Independent (6) Twelve steps discharge goal: Not applicable Sachse 150 feet discharge goal: Independent (6) Goal 1 - Bowel function: REMAIN CONTINENT TILL D/CGoal 2 - Bladder function: REMAIN CONTINENT TILL DISCHARGENursing goal 3: PARTICIPATE IN THERAPY TO INCREASE STRENGHT AND ENDURANCENursing goal 4: MANAGE AND CONTROL PAIN MAINTAIN BP WITHIN NORMAL LEVEL MAINTAINBLOOD SUGAR WITHIN NORMAL LEVELNursing goal 5: PREVENT FALLS AND INJURY DURING REHAB STAY PREVENT INFECTION PERWOUND AND MIDLINE CATHETER BY PROPER DRESSING CHANGE AND MONITORING SITE DISCHARGE PLANNING: Barriers to discharge: Endurance, Fall risk, INCISION, LOW HEART RATEStrategies for D/C barriers: Fall recovery training, Evaluate pain control, Homeevaluation, Evaluate sleep patterns, CLOSE MONITORINGEstimated length of stay in days: 11Anticipated discharge date: 04/21/21Discharge date adjustment comment: Identified financial and/or community resource needs: HOME HEALTH CARE.Family/Caregiver training days: 04/21/21Independence day (DATE): 04/20/21Expected discharge destination: HomeAnticipated services upon discharge: Home health, Occupational therapy, Physicaltherapy, Nurses aide, NursingAnticipated discharge equipment: 4 in 1 commode, Gis Physical Scientist, Sock aid, Tub bench, Hand held shower head, Long handled sponge, Gait belt, Glucometer, ROLLING WALKER Impairment group: cardiac disorders NOTE Document ONLY ONE Impairment GroupEtiologic diagnosis:CADReview of comorbidities:DM, HBP, HLP, MORBID OBESITY, OA, BPH, SKIN CANCER, VITAMIN B-12 DEFICIENCY Review/RecommendationsAttestation:This interdisciplinary team conference was led by me and I concur with all decisions made during the team conference and revisions to the individualized overall plan of care. IRF cont stay criteriaWILL BENEFIT FROM MORE DAYS IN INTENSIVE INPATIENT REHAB TO REACH ADEQUATE LEVELS IN MOB AND SELF-CARE TO BE SAFE AT HOME at 1310 RPT #:[id number] OF REPORTCLClinical [id number]:25:00Z.[id number] for patient [id number]:10:32 2021-04-15 [id number]:12:[id number] [facility] 13:12:[address] [place] [address] PATIENT NAME: COLE JEFFREY ADMIT DATE: 04/10/21ACCOUNT NO: [id number] ROOM NO: Z.[facility] AGE: 81 REPORT TYPE: PROGRESS NOTE SEX: M ADMITTING PHYSICIAN:Rafal Marquez MD ATTENDING PHYSICIAN:Rafal Marquez MD DATE: 04/15/2021 Mr. Jeffrey is seen on 04/15/2021 for rehabilitation direction for debilityassociated with coronary artery disease resulting in quadruple aortocoronaryartery bypass graft surgery on 03/31/2021 after presenting with chronic chestand left arm pain. The patient had been seen by his technology solutions architect and wasreferred to the hospital to undergo left heart catheterization, which revealedsevere multivessel obstructive coronary artery disease. The patient was thentaken to surgery as noted above and postoperatively experienced persistentintermittent atrial fibrillation with rapid ventricular response. He ispresently on oral anticoagulation and his INR has been monitored closely by hishospitalist, today it reached a therapeutic level for the first time at 2.3. The patient was seen today in his room. He was alert and oriented, in goodspirits, feeling better and looking forward to participating in an activerehabilitation program. He has made progress so far. He was seen by bothoccupational therapy and physical therapy yesterday and he received education onsafety issues and also durable medical equipment. He was able to completefunctional ambulation from his room to the gym with a rolling walker, requiringintermittent rest breaks because of decreased activity tolerance and someshortness of breath. The patient was also educated on sternal precautions. Herequires intensive occupational therapy services to address his deficits instrength, activity tolerance and safety awareness. In physical therapy, heneeded minimal assist for toileting and took increased time to ambulate to therehabilitation gym where he performed therapeutic exercises and was educated onenergy conservation and pacing his activities. He did stair and ramp trainingrequiring minimal assistance. This patient will be discussed at his initial interdisciplinary team conferencetomorrow at which time his progress will be reviewed, functional potentialdetermined, short and long-term rehabilitation objectives established, dischargeplan confirmed, and a definite discharge date projected. Dictated By: Rafal Marquez MD WT: PN:Z.JAMES/CONOR/NTSDD: 04/15/2021 13:12:12DT: 04/15/2021 13:27:23Conf#: [id number]/DID#: [id number] PATIENT NAME: COLE JEFFREY Authenticated by Rafal Marquez MD On 04/16/2021 09:25:28 AM at 0925 PATIENT NAME: COLE JEFFREY [id number]:27:00Z.[id number] 13AVAvailable for patient [id number]:26:05 2021-04-15 [id number]:[id number] [facility] 07:41:00 [address] [place] [address] PATIENT NAME: COLE JEFFREY ADMIT DATE: 04/10/21ACCOUNT NO: [id number] ROOM NO: Z.309 AGE: 81 REPORT TYPE: ELECTROCARDIOGRAM SEX: M ADMITTING PHYSICIAN:Rafal Marquez MD ATTENDING PHYSICIAN:Rafal Marquez MD Order:[id number] Reason : Atrial Flutter Test Date/Time Stamp:TueApr 15 2021 07:41:31Blood Pressure : / mmHGVent. Rate : 104 BPM Atrial Rate : 104 BPM P-R Int : 178 ms QRS Dur : 148 ms QT Int : 408 ms P-R-T Axes : 000 -60 132 degrees QTc Int : 536 ms Sinus tachycardiaLeft axis deviationNonspecific intraventricular blockAbnormal ECGWhen compared with ECG of 12-APR-2021 21:25,Nonspecific intraventricular block has replaced Right bundle branch blockCriteria for Septal infarct are no longer presentConfirmed by NONI MARQUEZ ([id number]) on 04/15/2021 4:51:14 PM Referred By: Rafal Marquez Confirmed by:NONI MARQUEZ at 1658 PATIENT NAME: COLE JEFFREY .[id number] for patient [id number]:51:45 2021-04-15 [id number]:12:00 [facility]CA[facility]U 06:12:00 [facility] ([facility])Cardiology Progress NoteREPORT#:[id number] REPORT STATUS: SignedDATE:04/15/21 TIME: 611 PATIENT: COLE JEFFREY UNIT #: [id number]#: [id number] [facility]BED[facility]-ADOB: [birth year] AGE: 81 SEX: M ATTEND: Rafal Marquez MDA AUTHOR: Ruiz Bhatti MD * ALL edits or amendments must be made on the electronic/computer document * SubjectiveChief Complaint:AFIBPatient reports:No: chest pain, palpitations, shortness of breath. Objective GeneralVS/I O:24 hour I O ending at 0700: 04/15 0700 04/14 1900 Intake Total 300 800 Output Total Balance 300 800 Intake, Oral 300 800 Number 0 Incontinent Voids Number Voids 3 Vital Signs: Date Time Temp Pulse Resp B/P B/P Pulse O2 O2 Flow FiO2 Mean Ox Delivery Rate 04/15 432 98.1 76 17 125/56 78.9 95 Room air 04/15 015 98.4 54 18 126/71 89.3 94 04/14 2007 97.5 98 17 152/90 110.2 97 Room air 04/14 1616 98.6 41 16 132/60 83.8 95 Room air 04/14 0731 106 18 127/83 98.0 PATIENT WEIGHT: Weight (lb): 265Weight (oz): 3.46Weight (kg): 120.300 Medications:Active Meds + DC'd Last 24 HrsCholestyramine Resin (QUESTRAN PACK) 1 PKT TID PRN PRN PO (CKD) Furosemide (LASIX) 40 MG DAILY PO (DC) Digoxin (LANOXIN) 0.25 MG Q24H PO (CKD) Warfarin Sodium (COUMADIN) 5 MG QPM PO Metformin HCl (GLUCOPHAGE) 1,000 MG AC DIN PO Aspirin (ASPIRIN EC) 81 MG DAILY PO Clopidogrel Bisulfate (PLAVIX) 75 MG DAILY PO Finasteride (PROSCAR) 5 MG DAILY PO Glimepiride (AmaryL) 4 MG DAILY PO (DC) Levothyroxine Sodium (Synthroid) 100 MCG DAILY PO Linagliptin (TRADJENTA) 5 MG DAILY PO Losartan Potassium (COZAAR) 100 MG DAILY PO Enoxaparin Sodium (LOVENOX) 60 MG 0600 SUBQ Dextrose/Water (DEXTROSE 50% IN WATER) 12.5 GM ASDIR PRN IV Dextrose/Water (DEXTROSE 50% IN WATER) 25 GM ASDIR PRN IV Wound Care/Dressing Products ([facility]) 1 ROLDAN DAILY PRN PRN TOPICAL (CKD) Benzonatate (TESSALON PERLE) 100 MG TID PRN PRN PO Simethicone (MYLICON 80MG) 160 MG Q6H PRN PRN PO Acetaminophen (TYLENOL) 650 MG Q4H PRN PRN PO Amiodarone HCl (CORDARONE) 400 MG BID PO (CKD) Atorvastatin Calcium (LIPITOR) 80 MG BEDTIME PO Docusate Sodium (COLACE) 100 MG BID PO Famotidine (PEPCID) 20 MG BID PO Ferrous Sulfate (FEOSOL) 325 MG BID PO Insulin Human Lispro (HumaLOG) MEDIUM DOSE SLIDING SCALE AC HS SUBQ Metoprolol Tartrate (LOPRESSOR) 50 MG Q12HR PO Tamsulosin HCl (FLOMAX) 0.4 MG BID PO Bisacodyl (DULCOLAX) 5 MG BID PRN PRN PO Bisacodyl (BISACODYL SUPP) 10 MG DAILY PRN PRN RECTAL Docusate Sodium (COLACE) 100 MG BID PRN PRN PO Magnesium Hydroxide (MILK OF MAGNESIA) 30 ML DAILY PRN PRN PO Physical ExamGeneral appearance: alert, awake, orientedHead/Eyes: atraumatic, normocephalicENT: moist mucosal membranesNeck: no JVDCardiovascular: CV assessment: irregularly irregularRespiratory: clear to auscultation, no distressLower extremity: LE assessment: no edemaMusculoskeletal: full range of motionNeuro/HUMAN RESOURCES LEADER: alert, oriented X 3, CN II-XII intactSkin: dry, intactWound/incision: Site condition: dressing clean dryPsychiatry: normal affect, normal judgment/insight, normal mood ResultsFindings/Data:Laboratory Tests 04/15 04/14 04/14 04/14 04/14 0546 2040 1620 1119 0633 Chemistry POC Glucose (60 - 99 MG/DL) 87 95 110 H 101 H 66 Laboratory Tests 04/15 0421 Coagulation INR (0.86 - 1.14) 2.3 H PT Patient/Control Mix (9.5 - 12.7 SECONDS) 25.2 H Diagnosis, Assessment Plan Free Text DxA P NotesFree Text DxA P Notes:IMP: CAD - multivessel s/p ACB with DICKENS to LAD, saphenous vein to diagonal, OM, right PDA - 2020. Volume stable HLP DM AFL - HR variable. Therapeutic INR ANDREW thrombus. PLAN: d/c lovenox with therapeutic INR. Consider DEANA at 4-6 weeks after therapeutic INR if AFL/AFIB continues. PT at 1741 RPT #:[id number] OF REPORTPRProgress [id number]:12:00Z.[id number] for patient [id number]:41:59 2021-04-14 [id number]:49:[id number] [facility] 11:49:00 [address] [place] [address] PATIENT NAME: COLE JEFFREY ADMIT DATE: 04/10/21ACCOUNT NO: [id number] ROOM NO: Z.309 AGE: 81 REPORT TYPE: PROGRESS NOTE SEX: M ADMITTING PHYSICIAN:Rafal Marquez MD ATTENDING PHYSICIAN:Rafal Marquez MD DATE: 04/14/2021 Mr. Jeffrey is seen on 04/14/2021 for rehabilitation direction for debilityassociated with quadruple aortocoronary artery bypass graft surgery on03/31/2021 after a left heart catheterization demonstrated severe multivesselobstructive coronary artery disease in the presence of unstable angina. Thepatient has several chronic medical comorbidities as well, which contribute tohis deconditioning and he is also morbidly obese. The patient has had problemswith persistent plethora with a particular significant bilateral lower extremityedema. The patient has also had persistent intermittent atrial fibrillationwith rapid ventricular response. He is presently being initiated on oralanticoagulation and his INR has been gradually going upward, today it is up to1.8. He still remains on enoxaparin as bridging therapy. He had warfarin 5 mglast night. Today, he had a CBC done, which continues to show significantanemia with hemoglobin of 8.6. He had electrolytes as well, which wereunremarkable and his diabetes is under good control. Renal function is just inthe upper limits of normal. He is on multiple medications for hiscardiovascular problems, his diabetes, his prostatism and his hypothyroidism. He was seen today in the rehabilitation gym working with physical therapy,ambulating with a rolling walker in the hallway essentially with supervision. He is basically at supervision for most activities of daily living, needingmoderate assist with upper body dressing and maximal assist with bathing andwith lower body dressing. The patient is also a moderate assist level for bedmobility and transfers. However, yesterday, physical therapy noted that he wasneeding only minimal assist with both bed mobility and transfers during theirtreatment session. Physical therapy often grades better than nursing formobility skills. The patient did gait training with the wheelchair as backupand he performed therapeutic exercises for several minutes and did stairtraining as well. He tolerated the treatment session well. He will continuewith his present rehabilitation program at this time and will be discussed athis initial team conference on 04/16/2021. Dictated By: Rafal Marquez MD WT: PN:Z.JAMES/CONOR/LAURENDD: 04/14/2021 11:49:40DT: 04/14/2021 11:59:36Conf#: [id number]/DID#: [id number] PATIENT NAME: COLE JEFFREY Authenticated by Rafal Marquez MD On 04/15/2021 09:56:16 AM at 0956 PATIENT NAME: COLE JEFFREY [id number]:59:00Z.[id number] for patient [id number]:56:59 2021-04-14 [id number]:22:00 [facility]:22:00 [facility] ([facility])Hospitalist Progress NoteREPORT#:[id number] REPORT STATUS: SignedDATE:04/14/21 TIME: 921 PATIENT: COLE JEFFREY UNIT #: [id number]#: [id number] [facility] AGE: 81 SEX: M ATTEND: Rafal Marquez [facility] AUTHOR: Aarti Plummer MD R1 * ALL edits or amendments must be made on the electronic/computer document * Aarti Plummer 04/14/21921:SubjectiveChief Complaint:Patient w/ diarrhea overnight x3, given cholestyramine which stopped the BMs. States bruise still w/ moderate pain. Still edematous but patient endorses increased urination on lasix. Eating/sleeping well. Review of SystemsConstitutional:Denies: chills, fatigue, fever, generalized weakness, lethargy, malaise, recent wt loss, other. Skin:Reports: bruising, contusion, ecchymosis. Denies: abrasion, diaphoresis, itching, laceration, rash. Allergy/Immun:Denies: allergic reaction, anaphylaxis, hives, itching, rhinorrhea, sneezing, other. Eyes:Denies: redness, discharge, visual loss/blurred, itching, diplopia, eye pain, photophobia, swelling, other. ENT:Denies: ear drainage, ear ringing, earache, hearing loss, mouth pain, nasal congestion, nose bleeding, sinus problem, sore throat, throat pain, throat swelling, tongue pain, tongue swelling, toothache, voice change, other. Respiratory:Denies: COWAN (dyspnea on exertion), hemoptysis, non productive cough, parox nocturnal dyspnea, pleurisy, pleuritic pain, pneumonia, productive cough (sputum), SOB, wheezing, other. Cardiovascular:Reports: edema. Denies: chest pain, COWAN (dyspnea on exertion), orthopnea, palpitations, parox nocturnal dyspnea, other. GI:Reports: diarrhea. Denies: abdominal pain, anorexia, constipation, dysphagia, GERD, hematemesis, hematochezia, hiatal hernia, melena, nausea, rectal pain, vomiting, other. Objective GeneralVS/I O:Vital Signs: Date Time Temp Pulse Resp B/P B/P Pulse O2 O2 Flow FiO2 Mean Ox Delivery Rate 04/14 731 106 18 127/83 98.0 04/14 0431 98.1 105 18 131/73 92.6 94 04/13 1922 98.1 104 16 153/94 113.3 96 Room air 04/13 1757 103 122/76 91.6 04/13 1530 97.7 104 16 129/88 101.4 97 Room air 24 hour I O ending at 0700: 04/14 0700 04/13 1900 Intake Total 500 400 Output Total 1400 Balance -900 400 Intake, Oral 500 400 Number 5 3 Bowel Movements Number 0 0 Incontinent Voids Number Voids 5 7 Output, Urine 1400 PATIENT WEIGHT: Weight (lb): 265Weight (oz): 3.46Weight (kg): 120.300 Medications:Active Meds + DC'd Last 24 HrsCholestyramine Resin (QUESTRAN PACK) 1 PKT TID PRN PRN PO (CKD) Furosemide (LASIX) 40 MG DAILY PO (DC) Digoxin (LANOXIN) 0.25 MG Q24H PO (CKD) Warfarin Sodium (COUMADIN) 5 MG QPM PO Metformin HCl (GLUCOPHAGE) 1,000 MG AC DIN PO Aspirin (ASPIRIN EC) 81 MG DAILY PO Clopidogrel Bisulfate (PLAVIX) 75 MG DAILY PO Finasteride (PROSCAR) 5 MG DAILY PO Glimepiride (AmaryL) 4 MG DAILY PO Levothyroxine Sodium (Synthroid) 100 MCG DAILY PO Linagliptin (TRADJENTA) 5 MG DAILY PO Losartan Potassium (COZAAR) 100 MG DAILY PO Enoxaparin Sodium (LOVENOX) 60 MG 0600 SUBQ Dextrose/Water (DEXTROSE 50% IN WATER) 12.5 GM ASDIR PRN IV Dextrose/Water (DEXTROSE 50% IN WATER) 25 GM ASDIR PRN IV Wound Care/Dressing Products ([facility]) 1 ROLDAN DAILY PRN PRN TOPICAL (CKD) Benzonatate (TESSALON PERLE) 100 MG TID PRN PRN PO Simethicone (MYLICON 80MG) 160 MG Q6H PRN PRN PO Acetaminophen (TYLENOL) 650 MG Q4H PRN PRN PO Amiodarone HCl (CORDARONE) 400 MG BID PO (CKD) Atorvastatin Calcium (LIPITOR) 80 MG BEDTIME PO Docusate Sodium (COLACE) 100 MG BID PO Famotidine (PEPCID) 20 MG BID PO Ferrous Sulfate (FEOSOL) 325 MG BID PO Insulin Human Lispro (HumaLOG) MEDIUM DOSE SLIDING SCALE AC HS SUBQ Metoprolol Tartrate (LOPRESSOR) 50 MG Q12HR PO Tamsulosin HCl (FLOMAX) 0.4 MG BID PO Bisacodyl (DULCOLAX) 5 MG BID PRN PRN PO Bisacodyl (BISACODYL SUPP) 10 MG DAILY PRN PRN RECTAL Docusate Sodium (COLACE) 100 MG BID PRN PRN PO Magnesium Hydroxide (MILK OF MAGNESIA) 30 ML DAILY PRN PRN PO Nutrition assessment:The data set between the solid lines has been imported from the dietitian's assessment. Any exceptions have been noted under Provider comments. BMI Calculated: 36.0Nutrition related diagnosis: Nutrition diagnosis details: Nutrition problem: Increased nutrient needsNutrition etiology: INCREASED LETA/PRO NEEDS FOR , WOUND HEALINGNutrition signs and symptoms: POST OP CABGNutrition prescription: -RECOMMEND 1800 ADA DIABETIC DIET WITH 4 GM NA RESTRICTION -RECOMMEND TISH BID FOR WOUND HEALING -RD TO F/U PER PROTOCOLDietitian name: Aleta Jo RD LDAssessment completed: 04/13/21 Provider comments on imported dietitian assessment: Physical ExamGeneral appearance: alert, awake, oriented, no acute distress, pleasant, conversational, mental status normalHead/Eyes: atraumatic, clear cornea, PERRLENT: normal ear left, normal ear rightNeck: full range of motion, non-tenderCardiovascular: normal capillary refill, normal heart sounds, regular rate rhythmRespiratory: aerating well, clear to auscultationAbdomen: non-tender, normal bowel soundsGenitourinary: no flank pain, no foleyExtremities: edema (2+ edema to knees ), moves all, normal capillary refill, no cyanosis, 4cm contusion/hematoma on medial R thigh, TTPNeuro/HUMAN RESOURCES LEADER: alert, oriented X 3, CNII-XII intact, normal speechSkin: R thigh medial/L knee ecchymosis, R buttock ulcer stage IIIPsychiatry: normal affect, normal judgment/insight, normal mood ResultsFindings/Data:Laboratory Tests 04/14 04/14 04/13 04/13 04/13 0633 0447 1942 1556 1157 Chemistry Sodium (137 - 145 MMOL/L) 136 L Potassium (3.5 - 5.1 MMOL/L) 3.7 Chloride (98 - 107 MMOL/L) 103 Carbon Dioxide (22 - 30 MMOL/L) 26 Anion Gap (14 - 24 MMOL/L) 11 L BUN (9 - 20 MG/DL) 13 Creatinine (0.66 - 1.25 MG/DL) 1.20 Glomerular Filtr Rate 58 Glucose (74 - 106 MG/DL) 56 L POC Glucose (60 - 99 MG/DL) 66 70 84 79 Calcium (8.4 - 10.2 MG/DL) 8.0 L Laboratory Tests 04/14 447 Coagulation INR (0.86 - 1.14) 1.8 H PT Patient/Control Mix (9.5 - 12.7 SECONDS) 20.1 H Laboratory Tests 04/14 447 Hematology WBC (3.8 - 9.8 K/MM3) 9.2 RBC (3.95 - 5.67 M/MM3) 3.08 L Hgb (12.4 - 16.7 G/DL) 8.6 L Hct (35.9 - 49.5 %) 27.2 L MCV (81.7 - 96.1 fL) 88 MCH (27.6 - 33.2 pg) 27.9 MCHC (32.9 - 35.5 %) 31.6 L RDW (12.1 - 15.2 %) 15.8 H Plt Count (129 - 368 K/MM3) 466 H MPV (7.4 - 10.4 fl) 9.3 Neut % (Auto) (43 - 75 %) 65.7 Lymph % (Auto) (14 - 44 %) 16.4 Ocean % (Auto) (4 - 13 %) 12.7 Eos % (Auto) (0 - 6 %) 3.7 Baso % (Auto) (0 - 2 %) 0.4 Neut # (Auto) (2.0 - 7.6 K/mm3) 6.04 Lymph # (Auto) (1.0 - 3.8 K/mm3) 1.51 Ocean # (Auto) (0.1 - 0.8 K/mm3) 1.17 H Eos # (Auto) (0.0 - 0.2 K/mm3) 0.34 H Baso # (Auto) (0.0 - 0.2 K/mm3) 0.04 Immature Gran % (0.0 - 2.0 %) 1.1 Nucleated RBC % (0 - 1.0 %) 0.0 Nucleated RBCs # (Man) (0.0 - 0.1 K/mm3) 0.00 Results: labs reviewed, vital signs stable Diagnosis, Assessment Plan Free Text DxA P NotesFree text DxA P notes:81 y/o M w/ PMH HTN, HLD, 90 pack-year smoking hx, DM2, CAD, PAD, frequent SVT/PVC, neuropathy who presented after anginal symptoms. Multi-vessel CAD on cath. S/p CABG 03/31. #CAD s/p CABG on 04/09#PAD#BLE edema#Afib/Aflutter #Hematoma, medial R thighAfib/aflutter new since CABG. Still w/ BLE edema on exam. Hematoma most likely 2/2 CABG and warfarin, still TTP. Incisions C/D/I. Able to ambulate w/o chest pain. - cont metoprolol tartrate, amiodarone, digoxin - ASA, atorvastatin, plavix- cont lasix 40mg PO daily today - BLE U/S to evaluate hematoma per CVS, f/u. Pain management prn. - cardiology, CVS following #Left atrial appendage thrombus 2/2 afib/aflutterFound on recent DEANA this admission. Plans for future DEANA w/ ablation if still w/afib/aflutter and warfarin at goal. - On Lovenox + Warfarin. INR 1.8, uptrending.- trend INR, will increase warfarin accordingly to goal INR 2- cardiology following #HTN Well controlled. - c/w losartan #DM2#Neuropathy BG Well controlled. Low BG this AM. - c/w home metformin, linagliptin, SSI. D/c glimepiride. #Hypothyroid - home levothyroxine #Right buttock ulcer, stage III - wound physician following DVT PPX w/ Lovenox, warfarin Diet: cardiacfull code Quality: Gen Med Crit Care VTE ProphylaxisVTE prophylaxis initiated: yes (warfarin) Current MedicationsCurrent medication review:I attest that the foregoing medication list in the medical record is true, accurate, and complete to the best of my knowledge. Advanced Care Plan 65 or OlderDiscussed with: patientDiscussion included: code status (full code) Radha Haas 04/14/21 1720:Attestations Teaching Physician AttestationF/U visit w/ resident:I saw the patient with the resident and . . . agree with the resident's findings and plan. at 1517 at 2057 RPT #:[id number] OF REPORTPRProgress [id number]:22:00Z.[id number] [id number] for patient [id number]:17:24 2021-04-14 [id number]:22:00 [facility] HCAWU 08:22:00 [facility] ([facility])Cardiology Progress NoteREPORT#:[id number] REPORT STATUS: SignedDATE:04/14/21 TIME: 821 PATIENT: COLE JEFFREY UNIT #: [id number]#: [id number] [facility]: [facility] AGE: 81 SEX: M ATTEND: Rafal Marquez AUTHOR: Ruiz Bhatti MD * ALL edits or amendments must be made on the electronic/computer document * SubjectiveChief Complaint:AFIBPatient reports:No: chest pain, palpitations, shortness of breath. Objective GeneralVS/I O:24 hour I O ending at 0700: 04/14 0700 04/13 1900 Intake Total 500 400 Output Total 1400 Balance -900 400 Intake, Oral 500 400 Number 5 3 Bowel Movements Number 0 0 Incontinent Voids Number Voids 5 7 Output, Urine 1400 Vital Signs: Date Time Temp Pulse Resp B/P B/P Pulse O2 O2 Flow FiO2 Mean Ox Delivery Rate 04/14 0731 106 18 127/83 98.0 04/14 0431 98.1 105 18 131/73 92.6 94 04/13 1922 98.1 104 16 153/94 113.3 96 Room air 04/13 1757 103 122/76 91.6 04/13 1530 97.7 104 16 129/88 101.4 97 Room air 04/13 0844 98.1 106 18 126/82 96.6 95 PATIENT WEIGHT: Weight (lb): 265Weight (oz): 3.46Weight (kg): 120.300 Medications:Active Meds + DC'd Last 24 HrsCholestyramine Resin (QUESTRAN PACK) 1 PKT TID PRN PRN PO (CKD) Furosemide (LASIX) 40 MG DAILY PO Digoxin (LANOXIN) 0.25 MG Q24H PO (CKD) Warfarin Sodium (COUMADIN) 5 MG QPM PO Metformin HCl (GLUCOPHAGE) 1,000 MG AC DIN PO Aspirin (ASPIRIN EC) 81 MG DAILY PO Clopidogrel Bisulfate (PLAVIX) 75 MG DAILY PO Finasteride (PROSCAR) 5 MG DAILY PO Glimepiride (AmaryL) 4 MG DAILY PO Levothyroxine Sodium (Synthroid) 100 MCG DAILY PO Linagliptin (TRADJENTA) 5 MG DAILY PO Losartan Potassium (COZAAR) 100 MG DAILY PO Enoxaparin Sodium (LOVENOX) 60 MG 0600 SUBQ Dextrose/Water (DEXTROSE 50% IN WATER) 12.5 GM ASDIR PRN IV Dextrose/Water (DEXTROSE 50% IN WATER) 25 GM ASDIR PRN IV Wound Care/Dressing Products ([facility]) 1 ROLDAN DAILY PRN PRN TOPICAL (CKD) Benzonatate (TESSALON PERLE) 100 MG TID PRN PRN PO Simethicone (MYLICON 80MG) 160 MG Q6H PRN PRN PO Acetaminophen (TYLENOL) 650 MG Q4H PRN PRN PO Amiodarone HCl (CORDARONE) 400 MG BID PO (CKD) Atorvastatin Calcium (LIPITOR) 80 MG BEDTIME PO Docusate Sodium (COLACE) 100 MG BID PO Famotidine (PEPCID) 20 MG BID PO Ferrous Sulfate (FEOSOL) 325 MG BID PO Insulin Human Lispro (HumaLOG) MEDIUM DOSE SLIDING SCALE AC HS SUBQ Metoprolol Tartrate (LOPRESSOR) 50 MG Q12HR PO Tamsulosin HCl (FLOMAX) 0.4 MG BID PO Bisacodyl (DULCOLAX) 5 MG BID PRN PRN PO Bisacodyl (BISACODYL SUPP) 10 MG DAILY PRN PRN RECTAL Docusate Sodium (COLACE) 100 MG BID PRN PRN PO Magnesium Hydroxide (MILK OF MAGNESIA) 30 ML DAILY PRN PRN PO Physical ExamGeneral appearance: alert, awake, orientedHead/Eyes: atraumatic, normocephalicENT: moist mucosal membranesNeck: no JVDCardiovascular: CV assessment: irregularly irregularRespiratory: clear to auscultation, no distressLower extremity: LE assessment: no edemaMusculoskeletal: full range of motionNeuro/HUMAN RESOURCES LEADER: alert, oriented X 3, CN II-XII intactSkin: dry, intactWound/incision: Site condition: dressing clean dryPsychiatry: normal affect, normal judgment/insight, normal mood ResultsFindings/Data:Laboratory Tests 04/14 04/14 04/13 04/13 04/13 0633 0447 1942 1556 1157 Chemistry Sodium (137 - 145 MMOL/L) 136 L Potassium (3.5 - 5.1 MMOL/L) 3.7 Chloride (98 - 107 MMOL/L) 103 Carbon Dioxide (22 - 30 MMOL/L) 26 Anion Gap (14 - 24 MMOL/L) 11 L BUN (9 - 20 MG/DL) 13 Creatinine (0.66 - 1.25 MG/DL) 1.20 Glomerular Filtr Rate 58 Glucose (74 - 106 MG/DL) 56 L POC Glucose (60 - 99 MG/DL) 66 70 84 79 Calcium (8.4 - 10.2 MG/DL) 8.0 L Laboratory Tests 04/147 Coagulation INR (0.86 - 1.14) 1.8 H PT Patient/Control Mix (9.5 - 12.7 SECONDS) 20.1 H Laboratory Tests 04/14 0447 Hematology WBC (3.8 - 9.8 K/MM3) 9.2 RBC (3.95 - 5.67 M/MM3) 3.08 L Hgb (12.4 - 16.7 G/DL) 8.6 L Hct (35.9 - 49.5 %) 27.2 L MCV (81.7 - 96.1 fL) 88 MCH (27.6 - 33.2 pg) 27.9 MCHC (32.9 - 35.5 %) 31.6 L RDW (12.1 - 15.2 %) 15.8 H Plt Count (129 - 368 K/MM3) 466 H MPV (7.4 - 10.4 fl) 9.3 Neut % (Auto) (43 - 75 %) 65.7 Lymph % (Auto) (14 - 44 %) 16.4 Ocean % (Auto) (4 - 13 %) 12.7 Eos % (Auto) (0 - 6 %) 3.7 Baso % (Auto) (0 - 2 %) 0.4 Neut # (Auto) (2.0 - 7.6 K/mm3) 6.04 Lymph # (Auto) (1.0 - 3.8 K/mm3) 1.51 Ocean # (Auto) (0.1 - 0.8 K/mm3) 1.17 H Eos # (Auto) (0.0 - 0.2 K/mm3) 0.34 H Baso # (Auto) (0.0 - 0.2 K/mm3) 0.04 Immature Gran % (0.0 - 2.0 %) 1.1 Nucleated RBC % (0 - 1.0 %) 0.0 Nucleated RBCs # (Man) (0.0 - 0.1 K/mm3) 0.00 Diagnosis, Assessment Plan Free Text DxA P NotesFree Text DxA P Notes:IMP: CAD - multivessel s/p ACB with DICKENS to LAD, saphenous vein to diagonal, OM, right PDA - 2020. Volume stable HLP DM AFL - HR variable. ANDREW thrombus. PLAN: Anticoagulate for INR 2-3. Consider DEANA at 4-6 weeks after therapeutic INR if AFL/AFIB continues. Ambulate IS at 1741 RPT #:[id number] OF REPORTPRProgress [id number]:22:00Z.[id number] for patient [id number]:41:39 2021-04-13 [id number]:44:00 [facility] 22:44:00 [facility])Wound Care Consultation NoteREPORT#:[id number] REPORT STATUS: SignedDATE:04/13/21 TIME: 2244 PATIENT: COLE JEFFREY [place] UNIT #: [id number]#: [id number] [facility] AGE: 81 SEX: M ATTEND: Rafal Marquez [facility] AUTHOR: January Mccollum MD * ALL edits or amendments must be made on the electronic/computer document * History of Present IllnessRequesting Clinician: Dr. Peraza for consult:buttock woundChief complaint:i was discharged hereHPI:Patient is a community dwelling 81-year-old male with a history significant for A. fib, CAD status post CABG. Patient is currently being evaluated in the rehabunit as was transferred from medicine to rehab for continued care. Patient was seen in the ICU for management of his stage III right buttock ulcer. He is awake and alert, the care team present at the bedside. History Past HistoryPast medical history: atrial fibrillation, CHF, coronary artery disease, diabetes mellitusPast surgical history: CABGPast social history: lives with familyPast family history:Relation not specified for: heart disease Medications:Home Medications:Medication Dose/Rte/Freq Days Qty Entered Last Max Daily Dose Reviewed sitaGLIPtin (JANUVIA) 100 MG PO DAILY 03/08/13 04/10/21rength: 100 MG TAB 1619 2008 Multivitamins W-Minerals 1 TAB PO DAILY 11/20/10 04/10/21 (Multivitamin And Minerals) 1111 2012Strength: 1 TAB TABLET GLIMEPIRIDE (AMARYL) 4 MG PO DAILY 03/28/21 04/10/21rength: 4 MG TAB 0703 2003 LEVOTHYROXINE 100 MCG PO DAILY 03/28/21 04/10/21 (SYNTHROID) 0706 2015Strength: 100 MCG TAB LOSARTAN (COZAAR) 100 MG PO DAILY 03/28/21 04/10/21rength: 100 MG TAB 0707 2006 FINASTERIDE (PROSCAR) 5 MG PO DAILY 03/28/21 04/10/21rength: 5 MG TAB 0710 2014 OXYBUTYNIN (DITROPAN) 5 MG PO BEDTIME 03/28/21 04/10/21rength: 5 MG TAB 0712 2006 TAMSULOSIN ER (FLOMAX) 0.4 MG PO BID 03/28/21 04/10/21rength: 0.4 MG CAP.SR.24H 0711 2007 metFORMIN ER (FORTAMET) 1,000 MG PO BID 03/28/21 04/10/21rength: 1,000 MG 0709 2008TAB.SR.24H CLOPIDOGREL (PLAVIX) 75 MG PO DAILY 30 30 04/10/21 04/10/21rength: 75 MG TAB 1646 2013 FERROUS SULFATE 325 MG PO BID 30 60 04/10/21 04/10/21 (FEOSOL) 1646 2007Strength: 325 MG TAB WARFARIN (COUMADIN) 5 MG PO QPM 30 30 04/10/21 04/10/21rength: 5 MG TAB 1647 2004 AMIODARONE (CORDARONE) 400 MG PO BID 30 120 04/10/21 04/10/21rength: 200 MG TAB 1647 2005 ATORVASTATIN (LIPITOR) 80 MG PO BEDTIME 30 60 04/10/21 04/10/21rength: 40 MG TAB 1647 2010 DIGOXIN (LANOXIN) 0.25 MG PO DAILY 30 30 04/10/21 04/10/21rength: 250 MCG TAB 1647 2009 METOPROLOL TARTRATE 50 MG PO Q12HR 30 60 04/10/21 04/10/21 (LOPRESSOR) 1648 2010Strength: 50 MG TAB ASPIRIN EC (ECOTRIN) 81 MG PO DAILY 30 30 04/10/21 04/10/21rength: 81 MG TAB.EC 1648 2006 BENZONATATE (TESSALON) 100 MG PO 30 30 04/10/21 04/10/21rength: 100 MG CAP TID PRN PRN COUGH 1649 2014 DOCUSATE SODIUM 100 MG PO BID 30 60 04/10/21 04/10/21 (COLACE) 1649 2004Strength: 100 MG CAP FAMOTIDINE (PEPCID) 20 MG PO BID 30 60 04/10/21 04/10/21rength: 20 MG TAB 1650 2012 SIMETHICONE (GAS-X) 160 MG PO 30 60 04/10/21 04/10/21rength: 80 MG TAB.CHEW Q6H PRN PRN GAS 1650 2007 INSULIN LISPRO 0 UNIT SUBQ AC HS 30 30 04/10/21 04/10/21 (HumaLOG CARTRIDGE 1652008 (15mL))Strength: 100 UNIT/MLCARTRIDGE ENOXAPARIN (LOVENOX) 60 MG SUBQ 0600 30 30 04/10/21 04/10/21rength: 60 MG/0.6 ML 1654 2010DISP.SYRIN HONEY (MEDIHONEY) 1 ROLDAN TOPICAL 30 1 04/10/21 04/10/21rength: 100 % PASTE..ML. DAILY PRN WOUND 1654 2011 CARE Current Hospital Medications:Blood Formation,Coagulation Sig/Lainey Start time Last Medication Dose Route Stop Time Status Admin Warfarin Sodium 5 MG QPM 04/11 1700 AC 04/13 (COUMADIN) PO 05/11 1701 1707 Clopidogrel Bisulfate 75 MG DAILY 04/11 0900 AC 04/13 (PLAVIX) PO 05/11 0901 0921 Enoxaparin Sodium 60 MG 0600 04/11 0600 AC 04/13 (LOVENOX) SUBQ 05/11 0601 0604 Ferrous Sulfate 325 MG BID 04/10 2100 AC 04/13 (FEOSOL) PO 05/10 2101 2124 Cardiovascular Drugs Sig/Lainey Start time Last Medication Dose Route Stop Time Status Admin Digoxin 0.25 MG Q24H 04/12 1700 CKD 04/13 (LANOXIN) PO 05/12 1701 1757 Losartan Potassium 100 MG DAILY 04/11 09 AC 04/13 (COZAAR) PO 05/11 0901 1122 Amiodarone HCl 400 MG BID 04/10 2100 CKD 04/13 (CORDARONE) PO 05/10 Atorvastatin Calcium 80 MG BEDTIME 04/10 2100 AC 04/13 (LIPITOR) PO 05/10 Metoprolol Tartrate 50 MG Q12HR 04/10 2100 AC 04/13 (LOPRESSOR) PO 05/10 Tamsulosin HCl 0.4 MG BID 04/10 2100 AC 04/13 (FLOMAX) PO 05/10 Central Nervous System Agents Sig/Lainey Start time Last Medication Dose Route Stop Time Status Admin Aspirin 81 MG DAILY 04/11 900 AC 04/13 (ASPIRIN EC) PO 05/11 09 09 Acetaminophen 650 MG Q4H PRN PRN 04/10 2215 AC 04/12 (TYLENOL) PO 05/10 Devices Sig/Lainey Start time Last Medication Dose Route Stop Time Status Admin Wound Care/Dressing 1 ROLDAN DAILY PRN PRN 04/10 2235 CKD Products TOPICAL 05/10 2236 (MEDIHONEY) Electrolytic, Caloric, And Karine Sig/Lainey Start time Last Medication Dose Route Stop Time Status Admin Furosemide 40 MG DAILY 04/13 1145 AC 04/13 (LASIX) PO 04/14 0901 1209 Dextrose/Water 12.5 GM ASDIR PRN 04/10 2240 AC (DEXTROSE 50% IN IV 05/10 224 WATER) Dextrose/Water 25 GM ASDIR PRN 04/10 2240 AC (DEXTROSE 50% IN IV 05/10 224 WATER) Gastrointestinal Drugs Sig/Lainey Start time Last Medication Dose Route Stop Time Status Admin Simethicone 160 MG Q6H PRN PRN 04/10 2230 AC (MYLICON 80MG) PO 05/10 223 Docusate Sodium 100 MG BID 04/10 2100 AC 04/13 (COLACE) PO 05/10 2101 09 Famotidine 20 MG BID 04/10 2100 AC 04/13 (PEPCID) PO 05/10 Bisacodyl 5 MG BID PRN PRN 04/10 1550 AC (DULCOLAX) PO 05/10 155 Bisacodyl 10 MG DAILY PRN PRN 04/10 1550 AC (BISACODYL SUPP) RECTAL 05/10 1551 Docusate Sodium 100 MG BID PRN PRN 04/10 1550 AC (COLACE) PO 05/10 1551 Magnesium Hydroxide 30 ML DAILY PRN PRN 04/10 1550 AC (MILK OF MAGNESIA) PO 05/10 1551 Hormones And Synthetic Substit Sig/Lainey Start time Last Medication Dose Route Stop Time Status Admin Metformin HCl 1,000 MG AC DIN 04/11 1630 AC 04/13 (GLUCOPHAGE) PO 05/11 1631 1707 Glimepiride 4 MG DAILY 04/11 0900 AC 04/13 (AmaryL) PO 05/11 0901 0919 Levothyroxine Sodium 100 MCG DAILY 04/11 0900 AC 04/13 (Synthroid) PO 05/11 0901 0920 Linagliptin 5 MG DAILY 04/11 0900 AC 04/13 (TRADJENTA) PO 05/11 0901 0920 Insulin Human Lispro See Dose AC HS 04/10 2100 AC 04/11 (HumaLOG) Insts (1) SUBQ 05/10 2101 1354 Miscellaneous Therapeutic Agen Sig/Lainey Start time Last Medication Dose Route Stop Time Status Admin Finasteride 5 MG DAILY 04/11 0900 AC 04/13 (PROSCAR) PO 05/11 0901 0921 Respiratory Tract Agents Sig/Lainey Start time Last Medication Dose Route Stop Time Status Admin Benzonatate 100 MG TID PRN PRN 04/10 2230 AC (TESSALON PERLE) PO 05/10 2231 Dose Instructions:(1)Insulin Human Lispro (HumaLOG): MEDIUM DOSE SLIDING SCALE Allergies:Coded Allergies:Sulfa (Sulfonamide Antibiotics) (ITCHING 04/09/21)canagliflozin (From INVOKANA) (ITCHING 04/09/21) Review of SystemsConstitutional:Denies: chills, fatigue, fever. Skin:Reports: other. Allergy/Immun:Denies: allergic reaction, hives. Eyes:Denies: redness, visual loss/blurred, itching. ENT:Denies: ear drainage, ear ringing, mouth pain, nose bleeding. Respiratory:Denies: COWAN (dyspnea on exertion), non productive cough, parox nocturnal dyspnea. Cardiovascular:Reports: edema. GI:Denies: constipation, diarrhea, GERD. :Denies: frequency, hematuria, penile discharge. Musculoskeletal: Myalgias: Denies: bilateral. Heme:Denies: bleeding, petechiae. Endocrine:Denies: polydipsia, polyuria, weight gain. ObjectiveVS/I O:Last Documented: Result Date Time Pulse Ox 96 04/13 1922 B/P 153/94 04/13 1922 B/P Mean 113.3 04/13 1922 O2 Delivery Room air 04/13 1922 Temp 36.7 04/13 1922 Pulse 104 04/13 1922 Resp 16 04/13 1922 24 hour I O ending at 0700: 04/13 0700 04/12 1900 Intake Total 1000 Output Total Balance 1000 Intake, Oral 1000 Number 2 Bowel Movements Number 0 Incontinent Voids Number Voids 6 Patient 120.3 kg Weight Weight Bed scale Measurement Method General appearance: alert, awake, orientedHead/Eyes: atraumatic, clear cornea, normocephalicENT: normal pharynx, moist mucosal membranesCardiovascular: edema B/L lower extRespiratory: clear to auscultation, no tenderness, aerating well, symmetric expansionAbdomen: no guarding, no rebound, obeseExtremities: moves all, edemaNeuro/HUMAN RESOURCES LEADER: alert, oriented X 3, normal speechSkin: dryUlcer: Type/Cause: pressure Wound AssessmentWound Assessment 1: Type/cause: pressure Wound location: buttock (right) Tissue layers: subcutaneous Site condition: erythema, granulating, dressing clean dry, dressing intact,edges approximated, incision intact, no changes in wound Length (cm): 1.2 Width (cm): 2.5 Stage of pressure ulcer: stage III Wound margins: thickened Lucy-wound: excoriated Diagnosis, Assessment PlanProblem List/A P: 1. 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 Hypothyroidism 3. Obesity 4. Peripheral artery disease 5. Diabetes 6. Coronary artery disease Free Text A P:Patient is seen today for evaluation of his right buttock stage III ulcer, he was some seen in the ICU prior to transfer to the rehab unit. He is seen today for evaluation of his sacral ulcer care initially was with Medihoney today will transition patient's wound care to collagen which will be changed every other day and as needed. I discussed care plan with patient care team present at the bedside. Encourage frequent repositioning as he is able to tolerate. Patient will also continue physical therapy for cardiac rehab.Thank you for the consult and the opportunity to participate in patient's care have continue to follow alongside care team and make modifications recommendations to his care as needed. at 2255 RPT #:[id number] OF [id number]:44 :00Z.[id number] for patient [id number]:56:04 2021-04-13 [id number]:26:00 [facility] 15:26:00 [facility] ([facility])Cardiology Progress NoteREPORT#:[id number] REPORT STATUS: SignedDATE:04/13/21 TIME: 1526 PATIENT: COLE JEFFREY [place] UNIT #: [id number]#: [id number] [facility] AGE: 81 SEX: M ATTEND: Rafal Marquez [facility] AUTHOR: Ruiz Bhatti MD * ALL edits or amendments must be made on the electronic/computer document * SubjectiveChief Complaint:AFIBPatient reports:No: chest pain, palpitations, shortness of breath. Objective GeneralVS/I O:24 hour I O ending at 0700: 04/13 0700 04/12 1900 Intake Total 1000 Output Total Balance 1000 Intake, Oral 1000 Number 2 Bowel Movements Number 0 Incontinent Voids Number Voids 6 Patient 120.3 kg Weight Weight Bed scale Measurement Method Vital Signs: Date Time Temp Pulse Resp B/P B/P Pulse O2 O2 Flow FiO2 Mean Ox Delivery Rate 04/13 0844 98.1 106 18 126/82 96.6 95 04/13 0354 98.6 104 19 132/76 94.9 95 04/12 2103 98.1 104 18 135/80 98.2 97 04/12 1935 97.7 104 19 137/83 100.7 97 04/12 1915 98.2 103 18 161/91 114 96 Room air 04/12 1530 97.3 86 18 107/59 75.2 96 PATIENT WEIGHT: Weight (lb): 265Weight (oz): 3.46Weight (kg): 120.300 Medications:Active Meds + DC'd Last 24 HrsFurosemide (LASIX) 40 MG DAILY PO Digoxin (LANOXIN) 0.25 MG DAILY PO (DC) Digoxin (LANOXIN) 0.25 MG Q24H PO (CKD) Warfarin Sodium (COUMADIN) 5 MG QPM PO Metformin HCl (GLUCOPHAGE) 1,000 MG AC DIN PO Aspirin (ASPIRIN EC) 81 MG DAILY PO Clopidogrel Bisulfate (PLAVIX) 75 MG DAILY PO Finasteride (PROSCAR) 5 MG DAILY PO Glimepiride (AmaryL) 4 MG DAILY PO Levothyroxine Sodium (Synthroid) 100 MCG DAILY PO Linagliptin (TRADJENTA) 5 MG DAILY PO Losartan Potassium (COZAAR) 100 MG DAILY PO Enoxaparin Sodium (LOVENOX) 60 MG 0600 SUBQ Dextrose/Water (DEXTROSE 50% IN WATER) 12.5 GM ASDIR PRN IV Dextrose/Water (DEXTROSE 50% IN WATER) 25 GM ASDIR PRN IV Wound Care/Dressing Products ([facility]) 1 ROLDAN DAILY PRN PRN TOPICAL (CKD) Benzonatate (TESSALON PERLE) 100 MG TID PRN PRN PO Simethicone (MYLICON 80MG) 160 MG Q6H PRN PRN PO Acetaminophen (TYLENOL) 650 MG Q4H PRN PRN PO Amiodarone HCl (CORDARONE) 400 MG BID PO (CKD) Atorvastatin Calcium (LIPITOR) 80 MG BEDTIME PO Docusate Sodium (COLACE) 100 MG BID PO Famotidine (PEPCID) 20 MG BID PO Ferrous Sulfate (FEOSOL) 325 MG BID PO Insulin Human Lispro (HumaLOG) MEDIUM DOSE SLIDING SCALE AC HS SUBQ Metoprolol Tartrate (LOPRESSOR) 50 MG Q12HR PO Tamsulosin HCl (FLOMAX) 0.4 MG BID PO Bisacodyl (DULCOLAX) 5 MG BID PRN PRN PO Bisacodyl (BISACODYL SUPP) 10 MG DAILY PRN PRN RECTAL Docusate Sodium (COLACE) 100 MG BID PRN PRN PO Magnesium Hydroxide (MILK OF MAGNESIA) 30 ML DAILY PRN PRN PO Physical ExamGeneral appearance: alert, awake, orientedHead/Eyes: atraumatic, normocephalicENT: moist mucosal membranesNeck: no JVDCardiovascular: CV assessment: irregularly irregularRespiratory: clear to auscultation, no distressLower extremity: LE assessment: no edemaMusculoskeletal: full range of motionNeuro/HUMAN RESOURCES LEADER: alert, oriented X 3, CN II-XII intactSkin: dry, intactWound/incision: Site condition: dressing clean dryPsychiatry: normal affect, normal judgment/insight, normal mood ResultsFindings/Data:Laboratory Tests 04/13 04/13 04/12 04/12 1157 0623 2028 1603 Chemistry POC Glucose (60 - 99 MG/DL) 79 70 73 138 H Laboratory Tests 04/13 0341 Coagulation INR (0.86 - 1.14) 1.6 H PT Patient/Control Mix (9.5 - 12.7 SECONDS) 17.8 H Diagnosis, Assessment Plan Free Text DxA P NotesFree Text DxA P Notes:IMP: CAD - multivessel s/p ACB with DICKENS to LAD, saphenous vein to diagonal, OM, right PDA - 2020. Volume stable HLP DM AFL - HR variable. ANDREW thrombus. PLAN: Anticoagulate for INR 2-3. Consider DEANA at 4-6 weeks after therapeutic INR if AFL/AFIB continues. Ambulate IS PT at 1740 RPT #:[id number] OF REPORTPRProgress [id number]:26:00Z.[id number] [id number] for patient [id number]:40:58 2021-04-13 [id number]:09:00 [facility] HCAWU 15:09:00 [facility] ([facility])Rehab Indiv Overall POCREPORT#:[id number] REPORT STATUS: SignedDATE:04/13/21 TIME: 1509 PATIENT: COLE JEFFREY [place] UNIT #: [id number]#: [id number] ROOM[facility]BED: [facility]-ADOB: [birth year] AGE: 81 SEX: M ATTEND: Rafal Marquez MDADM AUTHOR: Rafal Marquez MD * ALL edits or amendments must be made on the electronic/computer document * Individualized Overall POC HPIImpairment group: cardiac disorders NOTE Document ONLY ONE Impairment GroupEtiologic diagnosis:CAD Medical Expected CourseExpected DC destination:Expected DC destination: Home Problem List/A P: 1. Coronary artery disease 2. Hypertension 3. Hyperlipidemia 4. Diabetes 5. Peripheral artery disease 6. Neuropathy 7. Obesity 8. Benign prostatic hyperplasia 9. S/P CABG (coronary artery bypass graft) 10. Former heavy cigarette smoker (20-39 per day) Medical prognosis: goodMedical prognosis details: pt motivation, family/caregiver support, cognition, D/C plan, financial resourcesExpected course of Tx:AVOID FURTHER COMPLICATIONS AND ENGAGE IN ACTIVE INPATIENT REHAB PROGRAM SO TO MAKE SIGNIFICANT PROGRESS IN MOB AND ADL Functional Expected CourseFunctional expected course:The data set between the solid lines has been imported from multidisciplinary team documentation: ANTICIPATED SERVICES IN ACUTE INPATIENT REHAB: DISCIPLINE Physical Therapy Occupational Therapy Speech TherapyINTENSITY (minutes/day) 90 90FREQUENCY (days/week) 5 5DURATION (# of days) 14 10 EXPECTED FUNCTIONAL OUTCOMES: CARE Rolling left and Independent (6) right discharge goal: CARE Sitting to Independent (6) lying discharge goal: CARE Lying to sitting Independent (6) on side of bed discharge goal: CARE Sitting to Independent (6) standing discharge goal: CARE Chair/bed to Independent (6) chair transfer discharge goal: CARE Car transfer Independent (6) discharge goal: CARE Walking 10 Independent (6) feet discharge goal: CARE Walking 50 feet Independent (6) with two turns discharge goal: CARE Walking 150 Independent (6) feet discharge goal: CARE Walking 10 feet on Independent (6) uneven surface discharge goal: CARE 1 step (curb) Independent (6) discharge goal: CARE 4 steps Independent (6) discharge goal: CARE 12 steps Not applicable discharge goal: CARE Picking up Independent (6) object discharge goal: CARE Sachse 50 feet Independent (6) with two turns discharge goal: CARE Sachse 150 Independent (6) feet discharge goal: CARE Toileting hygiene Setup/clean-up only (5) discharge goal: CARE Transfer on/off toilet Setup/clean-up only (5) or commode discharge goal: Bowel function goal: REMAIN CONTINENT TILL D/C Bladder function goal: REMAIN CONTINENT TILL DISCHARGE CARE Eating discharge goal: Independent (6) CARE Oral hygiene Independent (6) discharge goal: CARE Shower/bathe Independent (6) self discharge goal: CARE Upper body Independent (6) dressing discharge goal: CARE Lower body Independent (6) dressing discharge goal: CARE Putting on/taking Independent (6) off footwear discharge goal: ELOS Attestation:Based upon the review of clinical staff recommendations of frequency, duration and intensity and individual assessment of this patient, I estimate the following: Estimated length of stay:17 DAYS MD Review/RecommendationAttestation:Based upon my physical evaluation of the patient and input from the interdisciplinary team members I have developed this interdisciplinary overall plan of care and determined the admission to the IRF is reasonable and necessary.The IOPOC will be updated weekly and modified under my direction. Patient can be expected to actively participate in, and benefit from, an intensive rehab therapy program whose intensity is not provided in lower levels of care. Complex acute rehab needs: Custom therapy tx plan, Mgt of complex Co-morb, Postsurgery req mgt/care, Hospitalist consult, VTE Risk at 1512 RPT #:[id number] OF REPORTCLClinical [id number]:09:00Z.[id number] for patient [id number]:12:22 2021-04-13 [id number] [facility] 14:18:[address] [address] PATIENT NAME: COLE JEFFREY ADMIT DATE: 04/10/21ACCOUNT NO: [id number] ROOM NO: [facility] AGE: 81 REPORT TYPE: PROGRESS NOTE SEX: M ADMITTING PHYSICIAN:Rafal Marquez MD ATTENDING PHYSICIAN:Rafal Marquez MD DATE: 04/13/2021 Mr. Jeffrey is seen on 04/13/2021 for rehabilitation direction for debilityassociated with quadruple aortocoronary artery bypass graft surgery on03/31/2021 performed after a left heart catheterization done because ofpersistent chest discomfort and left arm pain, showed marked obstructivecoronary artery disease in several vessels. The patient postoperatively hadsome atrial fibrillation with rapid ventricular response and needed anamiodarone infusion. His heart rhythm alternated between atrial flutter, atrialfibrillation, in sinus rhythm and he underwent a transesophageal echocardiogramon 04/09/2021, showed a left atrial appendage thrombus. The patient wasrecommended to undergo oral anticoagulation at present, then be reassessed in 4to 6 weeks, and if atrial flutter were to persist, then a cardioversion via TEEwould be attempted by Dr. Bhatti. The patient was then discharged to theinpatient rehabilitation unit on 04/10/2021 for comprehensive inpatientrehabilitation to prepare him to return home functioning safely and effectivelywith a minimum of caregiver assistance. The patient was seen in his room this morning. He was experiencing significantbilateral lower extremity edema up to his thighs. The patient had a temperatureof 37.0 degrees with pulse rate 105, respiratory rate of around 19, bloodpressure this morning was 132/76 with an oxygen saturation of 95% on room air. The patient has been seen by occupational therapy and physical therapy and anindividualized overall plan of care will be designed for him today. Yesterdayin occupational therapy, he was able to ambulate with a rolling walker for 100feet, needing moderate assistance. He completed therapeutic exercises for hisupper extremities, doing well. In physical therapy, he needed only minimalassist to come from sit to stand with a rolling walker and then he did gaittraining with the rolling walker and therapeutic exercises for up to 3 minutesfor 3 separate sessions of 10 repetitions. Nursing reported the patient washaving pain and was medicated with acetaminophen, which provided relief. Thepatient remains on telemetry and shows PVCs. Dictated By: Rafal Marquez MD WT: PN:Z.HIM/KREMI/NTSDD: 04/13/2021 14:18:54DT: 04/13/2021 14:54:03Conf#: [id number]#: [id number] PATIENT NAME: COLE JEFFREY Authenticated by Rafal Marquez MD On 04/13/2021 03:07:38 PM at 0307 PATIENT NAME: COLE JEFFREY [id number]:54:00Z.[id number] for patient [id number]:08:21 2021-04-13 [id number]:00:00 [facility] HCAWU 12:00:00 [facility] Progress NoteREPORT#:[id number] REPORT STATUS: SignedDATE:04/13/21 TIME: 1200 PATIENT: COLE JEFFREY UNIT #: [id number]#: [id number] [facility] AGE: 81 SEX: M ATTEND: Rafal Marquez [facility] AUTHOR: Aarti Plummer MD R1 * ALL edits or amendments must be made on the electronic/computer document * Aarti Plummer 04/13/21 1200:SubjectiveChief Complaint:Yesterday patient w/ return to afib/aflutter HR 103 --> 70s. Digoxin restarted, Dr. Bhatti reconsulted. Reports SOB with extensive exercise. also with new bruised raised lesion on medial R thigh, tender. No chest pain. Still with BLE edema. Review of SystemsConstitutional:Denies: chills, fatigue, fever, generalized weakness, lethargy, malaise, recent wt loss, other. Skin:Reports: bruising, contusion, ecchymosis, laceration (incision sites), swelling (BLE swelling ). Allergy/Immun:Denies: allergic reaction, anaphylaxis, hives, itching, rhinorrhea, sneezing, other. Eyes:Denies: redness, discharge, visual loss/blurred, itching, diplopia, eye pain, photophobia, swelling, other. Respiratory:Reports: COWAN (dyspnea on exertion). Denies: hemoptysis, non productive cough, parox nocturnal dyspnea, pleurisy, pleuritic pain, pneumonia, productive cough (sputum), SOB, wheezing, other. Cardiovascular:Denies: chest pain, COWAN (dyspnea on exertion), edema, orthopnea, palpitations, parox nocturnal dyspnea, other. GI:Denies: abdominal pain, anorexia, constipation, diarrhea, dysphagia, GERD, hematemesis, hematochezia, hiatal hernia, melena, nausea, rectal pain, vomiting,other. Objective GeneralVS/I O:Vital Signs: Date Time Temp Pulse Resp B/P B/P Pulse O2 O2 Flow FiO2 Mean Ox Delivery Rate 04/13 0844 98.1 106 18 126/82 96.6 95 04/13 0354 98.6 104 19 132/76 94.9 95 04/12 2103 98.1 104 18 135/80 98.2 97 04/12 1935 97.7 104 19 137/83 100.7 97 04/12 1915 98.2 103 18 161/91 114 96 Room air 04/12 1530 97.3 86 18 107/59 75.2 96 24 hour I O ending at 0700: 04/13 0700 04/12 1900 Intake Total 1000 Output Total Balance 1000 Intake, Oral 1000 Number 2 Bowel Movements Number 0 Incontinent Voids Number Voids 6 Patient 265 lb Weight Weight Bed scale Measurement Method PATIENT WEIGHT: Weight (lb): 265Weight (oz): 3.46Weight (kg): 120.300 Medications:Active Meds + DC'd Last 24 HrsFurosemide (LASIX) 40 MG DAILY PO Digoxin (LANOXIN) 0.25 MG DAILY PO (DC) Digoxin (LANOXIN) 0.25 MG Q24H PO (CKD) Warfarin Sodium (COUMADIN) 5 MG QPM PO Metformin HCl (GLUCOPHAGE) 1,000 MG AC DIN PO Aspirin (ASPIRIN EC) 81 MG DAILY PO Clopidogrel Bisulfate (PLAVIX) 75 MG DAILY PO Finasteride (PROSCAR) 5 MG DAILY PO Glimepiride (AmaryL) 4 MG DAILY PO Levothyroxine Sodium (Synthroid) 100 MCG DAILY PO Linagliptin (TRADJENTA) 5 MG DAILY PO Losartan Potassium (COZAAR) 100 MG DAILY PO Enoxaparin Sodium (LOVENOX) 60 MG 0600 SUBQ Dextrose/Water (DEXTROSE 50% IN WATER) 12.5 GM ASDIR PRN IV Dextrose/Water (DEXTROSE 50% IN WATER) 25 GM ASDIR PRN IV Wound Care/Dressing Products ([facility]) 1 ROLDAN DAILY PRN PRN TOPICAL (CKD) Benzonatate (TESSALON PERLE) 100 MG TID PRN PRN PO Simethicone (MYLICON 80MG) 160 MG Q6H PRN PRN PO Acetaminophen (TYLENOL) 650 MG Q4H PRN PRN PO Amiodarone HCl (CORDARONE) 400 MG BID PO (CKD) Atorvastatin Calcium (LIPITOR) 80 MG BEDTIME PO Docusate Sodium (COLACE) 100 MG BID PO Famotidine (PEPCID) 20 MG BID PO Ferrous Sulfate (FEOSOL) 325 MG BID PO Insulin Human Lispro (HumaLOG) MEDIUM DOSE SLIDING SCALE AC HS SUBQ Metoprolol Tartrate (LOPRESSOR) 50 MG Q12HR PO Tamsulosin HCl (FLOMAX) 0.4 MG BID PO Bisacodyl (DULCOLAX) 5 MG BID PRN PRN PO Bisacodyl (BISACODYL SUPP) 10 MG DAILY PRN PRN RECTAL Docusate Sodium (COLACE) 100 MG BID PRN PRN PO Magnesium Hydroxide (MILK OF MAGNESIA) 30 ML DAILY PRN PRN PO Nutrition assessment:The data set between the solid lines has been imported from the dietitian's assessment. Any exceptions have been noted under Provider comments. BMI Calculated: 36.0Nutrition related diagnosis: Nutrition diagnosis details: Nutrition problem: Nutrition etiology: Nutrition signs and symptoms: Nutrition prescription: Dietitian name: Assessment completed: Provider comments on imported dietitian assessment: Physical ExamGeneral appearance: alert, awake, oriented, no acute distress, pleasant, conversational, mental status normal, no respiratory distressHead/Eyes: atraumatic, clear corneaENT: normal ear left, normal ear rightNeck: full range of motion, non-tenderCardiovascular: normal capillary refill, normal heart sounds, regular rate rhythmRespiratory: aerating well, clear to auscultationAbdomen: non-tender, normal bowel soundsGenitourinary: no flank pain, no foleyExtremities: edema (2+ edema to knees ), moves all, normal capillary refill, no cyanosis, 4cm contusion/hematoma on medial R thigh, TTPNeuro/HUMAN RESOURCES LEADER: alert, oriented X 3, CNII-XII intact, normal speechPsychiatry: normal affect, normal judgment/insight, normal mood ResultsFindings/Data:Laboratory Tests 04/13 04/13 04/12 04/12 1157 0623 2029 1603 Chemistry POC Glucose (60 - 99 MG/DL) 79 70 73 138 H Laboratory Tests 04/13 0341 Coagulation INR (0.86 - 1.14) 1.6 H PT Patient/Control Mix (9.5 - 12.7 SECONDS) 17.8 H Results: vital signs stable Diagnosis, Assessment Plan Free Text DxA P NotesFree text DxA P notes:81 y/o M w/ PMH HTN, HLD, 90 pack-year smoking hx, DM2, CAD, PAD, frequent SVT/PVC, neuropathy who presented after anginal symptoms. Multi-vessel CAD on cath. S/CABG 03/31. #CAD s/p CABG on 04/09#PAD#Hematoma, medial R thigh#BLE edema Still w/ BLE edema on exam. Hematoma most likely 2/2 CABG and warfarin. Incisions C/D/I. Able to ambulate w/o chest pain. - cont metoprolol tartrate, amiodarone. Digoxin restarted - ASA, atorvastatin, plavix- start lasix 40mg PO daily x2days - hematoma managment per [facility] team #Afib/Aflutter#Left atrial appendage thrombus Found on recent DEANA this admission. Plans for future DEANA w/ ablation if still w/afib/aflutter and warfarin at goal. - On Lovenox + Warfarin. INR 1.6, uptrending.- trend INR, will increase warfarin accordingly to goal INR 2 #HTN Well controlled. - c/w losartan #DM2#Neuropathy BG Well controlled. - c/w home metformin, linagliptin, glimepiride, SSI. #Hypothyroid - home levothyroxine #Right buttock ulcer, stage III - reconsulted wound physician DVT PPX w/ Lovenox, warfarin Diet: cardiacfull code Quality: Gen Med Crit Care VTE ProphylaxisVTE prophylaxis initiated: yes (warfarin) Current MedicationsCurrent medication review:I attest that the foregoing medication list in the medical record is true, accurate, and complete to the best of my knowledge. Advanced Care Plan 65 or OlderDiscussed with: patientDiscussion included: code status (full code) Radha Haas 04/13/21 1640:Attestations Teaching Physician AttestationF/U visit w/ resident:I saw the patient with the resident and . . . agree with the resident's findings and plan. at 1517 at 1646 RPT #:[id number] OF REPORTPRProgress [id number]:00:00Z.[id number] [id number] for patient [id number]:17:43 2021-04-12 [id number] [facility] 21:25:00 [address] [place] [address] PATIENT NAME: COLE JEFFREY ADMIT DATE: 04/10/21ACCOUNT NO: [id number] ROOM NO: Z.309 AGE: 81 REPORT TYPE: ELECTROCARDIOGRAM SEX: M ADMITTING PHYSICIAN:Rafal Marquez MD ATTENDING PHYSICIAN:Rafal Marquez MD Order:[id number] Reason : ST DEPRESSION Test Date/Time Stamp:TueApr 12 2021 21:25:14Blood Pressure : / mmHGVent. Rate : 105 BPM Atrial Rate : 072 BPM P-R Int : 000 ms QRS Dur : 158 ms QT Int : 422 ms P-R-T Axes : 000 -54 124 degrees QTc Int : 557 ms Sinus rhythmRight bundle branch blockLeft anterior fascicular block Bifascicular block Septal infarct , age undeterminedT wave abnormality, consider lateral ischemiaAbnormal ECGWhen compared with ECG of 10-APR-2021 16:10,Vent. rate has increased BY 53 BPMConfirmed by NONI MARQUEZ ([id number]) on 04/13/2021 4:41:32 PM Referred By: Rafal Marquez Confirmed by:NONI MARQUEZ at 1641 PATIENT NAME: COLE JEFFREY .[id number] for patient [id number]:41:55 2021-04-11 [id number] [facility] 14:09:[address] [place] [address] PATIENT NAME: COLE JEFFREY ADMIT DATE: 04/10/21ACCOUNT NO: [id number] ROOM NO: Z.309 AGE: 81 REPORT TYPE: HISTORY AND PHYSICAL SEX: M ADMITTING PHYSICIAN:Rafal Marquez MD ATTENDING PHYSICIAN:Rafal Marquez MD ADMISSION DATE: 04/10/2021 REASON FOR ADMISSION: This 81-year-old white male is admitted for comprehensiveinpatient rehabilitation because of deconditioning following quadrupleaortocoronary artery bypass graft surgery, performed on 03/31/[address] RobertL. Garvin at this hospital for multivessel coronary artery disease. Thepatient is admitted to the inpatient rehabilitation facility during the de following the declaration of a state of National Emergency issued bythe president of [facility] on 08/24/2019. PRIMARY PROBLEM: This patient presented to his technology solutions architect, Dr. Noni Marquez,with chest discomfort and left arm pain accompanied by dyspnea. He was admittedto this hospital on 03/27/2021 to undergo a left heart catheterization, whichrevealed severe multivessel obstructive coronary artery disease. An urgentbypass procedure was recommended and on 03/31/2021 Dr. Garvin performed aquadruple aortocoronary artery bypass graft procedure. Postoperatively, thepatient developed atrial fibrillation with rapid ventricular response and wastreated with an amiodarone infusion. He alternated between atrial flutter,atrial fibrillation, and sinus rhythm. He underwent a transesophagealechocardiogram on 04/09/2021, which revealed a left atrial appendage thrombus. The patient was evaluated by Dr. Ruiz Bhatti and he recommended oralanticoagulation and reassessment in 4 to 6 weeks. If the atrial flutters wereto persist, then a DEANA cardioversion would be attempted. The patient was beingtreated with enoxaparin and was just started on warfarin 5 mg daily totransition to oral anticoagulation. Following his bypass surgery, the patient was quite deconditioned and immobile. He developed a stage III pressure ulceration of the right buttock and was seenin consultation by Dr. January Mccollum, health care marketing specialist. He is beingtreated with repositioning and a Medihoney dressing. The patient's type 2diabetes is being closely monitored by the hospitalist and treatment is beingadjusted as necessary. Chest x-ray showed mild cardiomegaly and congestivechanges bilaterally with a left pleural effusion. The patient was mobilized by occupational therapy and physical therapy in orderto prepare him to return home. Premorbidly, he had been independent inhousehold mobility and activities of daily living, occasionally using a cane orwalker. At the present time, he is now requiring moderate assistance forbathing and upper body dressing and maximal assist for lower body dressing. Heneeds moderate assist for transfers and ambulation as well. He is able to jwqa588 feet without stopping to rest, but shows wide base of support and decreasedcadence with forward flexed posture. PATIENT NAME: COLE JEFFREY PAST MEDICAL HISTORY: This patient has a complicated past medical history,which not only includes his type 2 diabetes, but hypertension, hyperlipidemia,benign prostatic hypertrophy, skin cancer, vitamin B12 deficiency, diabeticneuropathy, and peripheral artery disease. He also has a history ofosteoarthritis and has undergone right and left total knee arthroplasties. Heis also morbidly obese. HABITS: The patient is a former smoker. ALLERGIES: HE IS ALLERGIC TO SULFONAMIDES AND CANAGLIFLOZIN. SOCIAL HISTORY: The patient is retired. He is and lives in a singlefamily 1-story home with his . REVIEW OF SYSTEMS: The patient has had no recent fever, chills, lethargy,malaise, or weight loss. He reported no rashes at present. He has had dyspneaon exertion, but no cough. He has had no abdominal pain, nausea, vomiting,diarrhea, or constipation. There has been no frequency, urgency, or dysuria. He reported no peripheral joint pain or swelling. He does have bilateral footswelling and he uses support hose regularly at home to manage it. PHYSICAL EXAMINATION:GENERAL: This is a well-developed, morbidly obese, elderly white male, sittingup in a chair, who is awake, alert, fully oriented, in no acute distress. Hisaffect is pleasant. Speech intelligible and fluent. Thought content isreasonable, relevant, and appropriate.HEENT: Normocephalic, atraumatic. Pupils are equal, regular, and react tolight and accommodate. Extraocular movements are intact. Nasopharyngeal mucosamoist. Mouth; oropharynx is clear. Tongue unremarkable.NECK: No thyromegaly or carotid bruits. Cervical spine supple, nontender.CHEST: Decreased breath sounds bilaterally. No crackles heard.HEART: S1, S2 normal. Rate and rhythm regular. No murmurs or gallops heard.ABDOMEN: Very protuberant, but soft and nontender. Bowel sounds faint. Organomegaly not appreciated.EXTREMITIES: Bilateral upper extremities unremarkable. The patient hassurgical dressings covering what were to be venous graft materials for hisbypass surgery. However, that had to be aborted because he had had previousprocedures for venous insufficiency, which rendered his venous circulationusable. Instead, he had cadaver graft. The patient has puffy edema of bothfeet and distal lower extremities.NEUROLOGICAL: Cranial nerves II through XII grossly intact. Sensation to lighttouch is diminished in the distal lower extremities secondary to neuropathy. Hemoves all 4 extremities with strength at about 4/5 throughout. No focaldeficits noted. No spasticity, rigidity, tremor, or dysmetria is evident. DIAGNOSES:1. Severe coronary artery disease.2. Debility.3. Status post recent quadruple aortocoronary artery bypass graft surgery.4. Diabetes mellitus, type 2.5. Recent intermittent atrial fibrillation with rapid ventricular response,alternating with atrial flutter.6. Diabetic neuropathy. PATIENT NAME: COLE JEFFREY 7. Peripheral arterial disease.8. Hypertension.9. Hyperlipidemia.10. Benign prostatic hypertrophy.11. History of skin cancer.12. History of bilateral knee osteoarthritis, status post bilateral total kneearthroplasties.13. Anemia of blood loss.14. Morbid obesity. REHABILITATION PHYSICIAN EVALUATION AND TREATMENT PLAN: This patient hassignificant deficits in mobility and self-care at the present time, resultingfrom prolonged immobilization and effects of cardiovascular disease withimpaired coronary circulation and intolerance of activity. He would benefitfrom an intensive inpatient rehabilitation program at the present time followinghis quadruple aortocoronary artery bypass graft surgery, which was complicatedby postoperative cardiac arrhythmias, which require cardiac monitoring at thepresent time when beginning an intensive inpatient rehabilitation program. Hewill be closely followed by the hospitalist as well as his cardiology team andby his cardiac surgeon, Dr. Garvin, for any postoperative complications, toenable prompt response to prevent interruption of his inpatient rehabilitationprogram. The patient is at risk for congestive heart failure exacerbation, deep venousthrombosis, worsening of his pressure ulcer, dehiscence of his surgical wounds,and recurrent disabling cardiac arrhythmias. He will be seen by occupationaltherapy for ADL training and physical therapy for general conditioning andmobility training. In addition, speech therapy will perform a routine cognitivelinguistic screen and recommend intervention if necessary to facilitate thepatient's participation in an active rehabilitation program. He will be seen byclinical psychology for assessment and the patient and family counseling topromote a successful discharge to home. The patient's prognosis is fair to achieve levels of function in mobility andself-care that approach modified independence to full independence. He iscapable of returning home at a setup level as well. He has a supportive spouse. The patient is prepared to participate in a program of intensive rehabilitationtherapies for 3 hours a day for at least 5 days a week. His present medicalcondition is compatible with such a program. The patient also needs closemonitoring of his pressure sore and follow up by his wound care physician inorder to prevent this from worsening and interfering with his progress inrehabilitation. The patient will receive counseling and education from therehabilitation staff including rehabilitation nursing to manage his chronicmedical comorbidities as well as follow the postoperative restrictions andprecautions for aortocoronary artery bypass graft surgery. The patient's present medical condition enables him to participate in an activerehabilitation program with appropriate monitoring and medical intervention. His medical condition as described in the preadmission screening evaluation isnot significantly different from that found in this initial physician evaluationfollowing admission to the rehabilitation unit. Likewise, the patient'sfunctional status does not appear to have materially changed in any way betweenthe time the preadmission screening evaluation was done and his admission to the PATIENT NAME: COLE JEFFREY inpatient rehabilitation unit. He for the most part still had ctmpusxkp-zd-pvgweux assist for bed mobility, transfers, and ambulation. The patient will be seen by each member of the inpatient rehabilitation team andan individualized overall plan of care will be developed from the evaluations toprovide a roadmap for the patient's progress in functional performance andreturn to his premorbid living situation. Dictated By: Rafal Marquez MD WT: HP:Z.JAMES/CONOR/NTSDD: 04/11/2021 14:09:54DT: 04/11/2021 17:46:49Conf#: [id number]/DID#: [id number] by Rafal Marquez MD On 04/13/2021 08:47:44 AM at 0847 PATIENT NAME: COLE JEFFREY and physical [id number]:46:00Z.[id number] for patient [id number]:48:16 2021-04-10 [id number] [facility] 16:10:[address] [address] PATIENT NAME: COLE JEFFREY ADMIT DATE: 03/28/21ACCOUNT NO: [id number] ROOM NO: Z.SI02 AGE: 81 REPORT TYPE: ELECTROCARDIOGRAM SEX: M ADMITTING PHYSICIAN:Radha Haas MD ATTENDING PHYSICIAN:Radha Haas MD Order:[id number] Reason : CAD/CAB/PAFIB Test Date/Time Stamp:TueApr 10 2021 16:10:23Blood Pressure : / mmHGVent. Rate : 052 BPM Atrial Rate : 208 BPM P-R Int : 000 ms QRS Dur : 164 ms QT Int : 586 ms P-R-T Axes : 000 -58 050 degrees QTc Int : 544 ms Sinus bradycardiaRight bundle branch blockLeft anterior fascicular block Bifascicular block Abnormal ECGWhen compared with ECG of 08-APR-2021 19:49,No significant change was foundConfirmed by NONI MARQUEZ ([id number]) on 04/11/2021 6:11:38 AM Referred By: Aisha Lucas Confirmed by:NONI MARQUEZ at 0611 PATIENT NAME: COLE JEFFREY .CUE863 [id number] for patient [id number]:12:01 2021-04-10 [id number]:38:00 [facility] 12:38:00 [facility] ([facility])Rehab Preadmission ScreenREPORT#: REPORT STATUS:DATE:04/10/21 TIME: 1238 PATIENT: COLE JEFFREY UNIT #: ROOM: BED:: 39 AGE: 81 SEX: M ATTEND: AlmaRafal MDPROJECTED ADM AUTHOR: Rafal Marquez MDREP SRV REP SRV TM: 1238* ALL edits or amendments must be made on the electronic/computer document * IRF Preadmission Screen Information From [facility] PASCR[facility] PAS documentation:The data set between the solid lines has been imported from [facility] PAS documentation. PREADMISSION INFORMATION: DEMOGRAPHICS: Assessment date: 04/10/21Assessment time: 1037Patient has an Advanced Directive: YesContent of advance directive/living will/plan of care: Copy of advance directive on chart: YesReferring physician: Marcello Anne care provider: Noni Casey physician(s): Lori Marquez Cardiology Gulshan Garvin Cardiac surgery Angelique Rust- Hospitalist Michaelle Lyon Wound CareReferral contact name: Jesusita Goldstein contact number: [phone] setting: [facility] number: [id number] IMPAIRMENT GROUP: Impairment group: Cardiac disorders Etiologic diagnosis: Severe multivessel coronary artery disease REVIEW OF MED CONDITIONS: Date of onset: 03/27/21Current surgery date and type: 03/31/21: Right CVP insertion, left femoral arterial monitor line insertion, ultrasound-guided access with SonoSite, right subclavian vein and right common femoral artery. The aortocoronary bypass x4 with DICKENS to LAD, saphenous vein to diagonal, OM, right PDA, endoscopic vein harvesting, right greater saphenous vein. Active comorbid conditions: Afib with RVR , Hypertension, Hyperlipidemia, Diabetic hyperglycemia, BPH, CAD, PAD, Neuropathy, diabetic, Postoperative anemiaPast medical and surgical history: hypertension, hyperlipidemia, cardiomegaly, diabetes, benign prostatic hypertrophy, skin cancer, vitamin B12 deficiency, andallergies, CAD, PAD, frequent SVT/PVC, neuropathy, skin cancer, partial toe amputation, former smoker, bilateral knee replacement, obesity, anemiaHad major surgery within 100 days of admission: YesRisk for medical/clinical complications: Anemia, Arrhythmia, BP fluctuation, Blood sugar fluctuation, Cardiac instability, Constipation, DVT, Depression, Electrolyte imbalance, Hypoxia, Incisional dehiscence, Injury d/t fallsAcute hospital stay summary: This patient has been admitted to the inpatient rehab program following the declaration of a national state of emergency as issued by the vice president talent management of [employer] on 08/24/2019. This is an 81-year-old male who admitted to this facility on 03/27/21 for a left heart cath after complaints of chest discomfort and left arm pain with dyspnea, revealing Left main and severe three-vessel coronary artery disease. He was admitted and an urgent bypass was recommended. Cardiac surgery was consulted andrecommended a coronary artery bypass, which was performed on 03/31/[address] Garvin. His hospital course has been further complicated by constipation, fluidoverload, anemia, and Afib with RVR requiring IV amiodarone. At baseline, he lives with his in a single-story home where he is modified independent using a rolling walker or cane occasionally. Currently he requires minimal assist for ADL and Moderate Assist for mobility. Wound care consult was order on 04/07 he was found to have a stage 3 pressure ulcer on his right buttock. On 04/09 he planned to have a DEANA done before cardioversion for ongoing tachycardia. He alternated between aflutter, afib, sinus rhythm. However, he wasfound to have a left atrial appendage thrombus. The cardioversion was canceled. The patient will be anticoagulated and reassessed for thrombus resolution. The plan is if his atrial flutter persists, we will plan DEANA cardioversion in 4 to 6weeks according to Dr. Bhatti. He was started on Coumadin 5mg at night and continues on Lovenox Injections daily. The following consult(s) have been following the patient closely: Cardiology, CV Surgery, Wound Care. Areas of ongoing medical management: Stage 3 pressure ulcer on right buttock- Wound care is following him, continue to monitor and treat and necessary. Encourage repositioning when laying down or sitting in chair. Currently on medihoney for wound. S/p CABG- Continue to monitor HR. His BLE has improved, continue to monitor. DM Type 2- He is on sliding scale insulin- Monitor blood glucose closely and keep glucose controlled. ANDREW Thrombus- Monitor for dyspnea, chest pain. Monitor PT/INR as he continues on Coumadin daily. With treatment he has improved but is still functioning below his baseline and is a good candidate forinpatient rehab. Patient requires an intensive therapy program and is willing and able to tolerate a minimum of 3 hours of therapy per day. Patient will require PT/OT to address his needs related to CAD. The patient also requires 24-hour rehabilitation nursing to manage and educate the patient regarding medications, bowel, bladder programs and carry over of the rehabilitation program and fall and wound prevention. His goal is to regain strength and mobility with transfers and ambulation before returning home with his . PREADMIT VITALS: Date/Time 04/10/21 0900 04/09/21 0730 Temp F Temp C 36.4 36.6 Pulse 108 114 RR 28 22 BP 154/70 124/69 SPO2% 94 97 Ht ft 6 Ht in 0 Wt lbs 240.000 BMI 32.5 SUPPORTING DIAGNOSTICS/LABS/RADIOLOGY/CARDIOLOGY: Date: 04/06/21 04/10/21 04/09/21 WBC: 9.2 HGB: 8.4 10.0 HCT: 25.1 8.1 Ca: 7.8 25.4 Na: 132 134 K+: 3.6 4.0 Glu: 139 126 Mg: BUN: 22 17 Creat: 1 1.00 Tot protein: 5.3 Alb: 2.8 PTT: PT: 13.8 INR: 1.2 PLT: 404 Additional labs: 03/30/21 Hgb A1C: 6.1 04/06/21 Digoxin: 0.7 03/28/21 AIXV-KoM-1Eaozalw: NegativeCultures: 03/30/21 MRSA Screen > MSSA Surveillance Screen Final 03/31/21-1447 MSSA SURVEILLANCE SCREEN MSSA Screen NegativeImaging: Chest X-ray: Cardiomegaly with mild congestive changes bilaterally. Chest X-Ray 04/04/21: Mild cardiomegaly and central venous congestion with a layering left effusion and atelectasisOther supporting diagnostics: C 03/27/21: Left main and severe three-vessel coronary artery disease, hhpj-sj-yfvlh collaterals. The recommendation is urgent bypass. Vascular ultrasound 03/28/21: 1. Study suggests 1-19% stenosis involving the right carotid artery bifurcation, right internal carotid artery, left carotid artery bifurcation, and left internal carotid artery. 2. Antegrade flow noted in the right vertebral artery and left vertebral artery. EKG 03/28/21: Sinus bradycardia with sinus arrhythmia. Nonspecific intraventricular block. Abnormal ECG. No significant change was found Echo 03/28/21: 1. Left ventricle: The cavity size is normal. There is mild concentric left ventricular hypertrophy. Systolic function is at the lower limits of normal. The estimated ejection fraction is 50-54%. Although no diagnostic regional wall motion abnormality is identified, this possibility cannot be completely excluded on thebasis of this study. Left ventricular diastolic function parameters are normal. 2. Right ventricle: Systolic pressure is within the normal range. The RV pressure during systole by Doppler is 20 mm Hg. 3. Aortic valve: The findings are consistent with very mild stenosis. 4. Mitral valve: The annulus is mildly calcified. The leaflets are mildly thickened. EKG 03/29/21: Sinus rhythm with sinus arrhythmia with occasional premature ventricular complexes Right bundle branch block Left anterior fascicular block Bifascicular block Minimal voltage criteria for LVH, may be normal variant Septal infarct , age undetermined Abnormal ECG When compared with ECG of 28-MAR-2021 09:41, prematureventricular complexes are now present (RBBB and left anterior fascicular block) has replaced Nonspecific intraventricular block RESPIRATORY STATUS: Respiratory treatments: NoneO2 liters per minute: Respiratory status: Patient is stable on room air NEUROLOGIC STATUS: Neurologic status: Alert, Oriented to person, Oriented to place, Oriented to time, Oriented to situationPatient's mood and behavior: AppropriateHand dominance: Right BOWEL/BLADDER: Continent of bladder for developmental age: YesNumber of bladder accidents in last 48 hours: Catheter type: Insertion date: Bladder aids: FlomaxBladder comment: Continent of bowel for developmental age: YesNumber of bowel accidents in last 48 hours: Date of last BM: 04/09/21Colostomy: Ileostomy: Bowel aids: Miralax, colaceBowel comment: SKIN: Skin alteration: Present/Exists SKIN ALTERATION 1: Type: Surgical woundLocation: Groin bilateralStage: Description: Procedure site, dressing intact SKIN ALTERATION 2: Type: Surgical woundLocation: Legs bilateralStage: Description: Procedure site, dressing intact SKIN ALTERATION 3: Type: Surgical woundLocation: SternumStage: Description: surgical incision, dressing intact SKIN ALTERATION 4: Type: Pressure injuryLocation: Buttock rightStage: Stage IIDescription: moisture related, red/moist/shallow EATING/NUTRITIONAL: Nutritional intake: PO regular foodEating compensatory strategies: Medication administration: Subcutaneous, IV, Medications whole REHAB NEEDS: Special rehabilitation needs: IV/PICC/CVC, Respiratory therapySpecial rehabilitation precautions: Cardiac, Sternal, Safety/fallRehabilitation precaution detail: fall risk due to mobility deficits FUNCTIONAL ASSESSMENT: FUNC. TASK PRIOR LOF CURRENT LOF EXPECTED LOF Bathing Independent Partial/moderate asst Independent U.B. Dressing Independent Partial/moderate asst Independent L.B. Dressing Independent Substantial/max asst Independent Bed/Ch Transf. Independent Partial/moderate asst Independent Toilet Transfer Independent Partial/moderate asst Independent Stairs Independent Partial/moderate asst Independent Locomotion Independent Partial/moderate asst Independent Locomotion prior device use: NoneDescription of prior level of locomotion: Patient reports occasional cane or walker use Locomotion current device: RW/FWWLocomotion current distance traveled without a rest break: 250 ftDescription of current level of locomotion: wide base of support decresaed carlos forward flexed postureDescription of expected level of locomotion: Language and Cognition: Tanzanian, Alert and oriented x 4.Add'l functional comment: Decreased stregnth, endurance, and activity tolerance. Requires cues for compliance with sternal precautions during functional tasks. Prior device use: RW/Front wheeled walker, SP canePrior device use additional information: PRE-HOSPITAL: Pre-hospital services utilized: NoneOccupation/Profession: RetiredEducation history: Return to work/school plan: Marital status: MarriedHobbies/leisure activities: Prior living situation: HomeLiving with: FamilyLiving with comment: Spouse ANTICIPATED DC PLAN/POST IRF: Primary support contact: Aarti Evans to patient: SpousePhone number 1: [phone] number 2: Caregiver availability: 24 hours a dayCaregiver can provide: Supervision onlyPatient/caregiver goals/preferences: Return as close to prior level of function as possibleExpected discharge destination: HomeExpected discharge physical layout: One storyNumber of external stairs: Number of internal stairs: Railing details: Grab bars location: Anticipated services upon discharge: Home health, Occupational therapy, PhysicaltherapyBarriers to discharge: Endurance, Medically complexOptions discussed with patient: YesOptions discussed with caregiver: YesPatient agrees with program requirements: Yes ACTIVITY TOLERANCE: Current treatment interventions: Occupational therapy, Physical therapy, Respiratory therapyPatient able to tolerate 3 hours of therapy a day: YesPatient able to tolerate 15 hours of therapy a week: Altered therapy schedule comment: ACUTE INPATIENT REHAB PLAN: Estimated length of stay in days: 14Anticipated services in acute inpatient rehab: Rehab nursing 03/01, optimization manager,Occupational therapy, Physical therapy, Respiratory therapy CRS ELECTRONIC SIGNATURE: CRS #1 electronic signature: Xiomy Perez credentials: OTRDate: 04/06/21Time: 1509 CRS #2 electronic signature: Tash Merchant credentials: RNDate: 04/10/21Time: 1047 CRS #3 electronic signature: CRS credentials: Date: Time: Provider Pre-Admit SummaryAcute IP rehab admit: criteria metMD determinationBased upon my evaluation and review of the supporting assessment documentation and consultation with the preadmission hotel night auditor, I have determined, prior to admitting this patient, that there is reasonable expectation that at the time of admission to the IRF, the patient's medical management and rehabilitation needs require an inpatient stay and close physician involvement. Patient can be expected to actively participate in, and benefit from, and intensive rehab therapy program whose intensity is not provided in lower levels of care. Significant barriers that can only be addressed in an acute inpatient rehab program, including, but not limited to: Complex acute rehab needs: Custom therapy tx plan, Mgt of complex Co-morb, Hospitalist consult, VTE Risk at 1239 RPT #:[id number] OF REPORTCLClinical [id number]:38:00Z.[id number] 250AVAvailable for patient [id number]:40:23 2021-04-10 [id number] [facility] 10:30:[address] [address] PATIENT NAME: COLE JEFFREY ADMIT DATE: 03/28/21ACCOUNT NO: [id number] ROOM NO: Z.SI02 AGE: 81 REPORT TYPE: eTRANSESOPHAGEAL ECHO SEX: M ADMITTING PHYSICIAN:Aisha Lucas MD ATTENDING PHYSICIAN:Aisha Lucas MD *[facility]*[address] [place] [id number] Transesophageal Echocardiogram Patient: Cole Jeffreytudy Date: 04/09/2021 BP: 152 / 91 Location: COCWUURN: [id number] : 1940 Age: 81 Height: 72 in / 182.9 cmAccession#: [id number] Gender: M Weight: 239.5 lb / 108.9 kgBMI/BSA: 32.5 kg/m 2 / 2.38 m 2 *Ordering Physician: * Aisha Lucas *Interpreting Physician: * Ruiz Bhatti MD*Drawer Maker: * Efren Childs BS, RCS, RVS Histor y: Atrial flutter. Study data: Consent: The risks, benefits, and alternatives to theprocedure were explained to the patient and informed consent wasobtained. Procedure: Initial setup: The patient was brought to thelaboratory in the fasting state.Intravenous access was obtained. SurfaceECG leads and pulse oximetric signals were monitored. A baseline ECG wasrecorded. Self-adhesive anterior-posterior defibrillation pads wereapplied. Sedation. Moderate sedation with intermittent deep sedation wasadministered during cardioversion by cardiology staff. Transesophagealechocardiography was performed. A transesophageal probe (SN: [id number]) wasinserted by the attending technology solutions architect without difficulty. Images wereobtained using a [employer] cardiac ultrasound machine. Image quality wasadequate. No intracardiac thrombus was identified. 2D and intravenouscontrast injection. Location: SICU Patient status: Inpatient.Patient room number: SICU 2. Study status: Routine. Study completion: PATIENT NAME: COLE JEFFREY [id number] [place] [id number] PATIENT NAME: COLE JEFFREY ADMIT DATE: 03/28/21ACCOUNT NO: [id number] ROOM NO: Z.SI02 AGE: 81 REPORT TYPE: eTRANSESOPHAGEAL ECHO SEX: M ADMITTING PHYSICIAN:Aisha Lucas MD ATTENDING PHYSICIAN:Aisha Lucas MD All catheters inserted during the procedure were removed. The patienttolerated the procedure well. There were no complications. Findin gs Left ventricle: The cavity size is normal. Systolic function is normal. There is no evidence of a thrombus.Right ventricle: The cavity size is normal. Systolic function isnormal.Ventricular septum: The ventricular septum is normal.Left atrium: The atrium is normal in size. There is a thrombus in theappendage.Atrial septum: No defect or patent foramen ovale is identified.Aorta: The aorta is mildly calcified.Aortic valve: The leaflets are mildly thickened.Mitral valve: The leaflets are mildly thickened. There is mildregurgitation.Tricuspid valve: The valve is structurally normal. There is noevidence of a vegetation.Pulmonic valve: The valve is structurally normal. There is noevidence of a vegetation.Pericardium: A small to moderate pericardial effusion is identified.There is no evidence of hemodynamic compromise. There is a moderatefibrinous pleural effusion. Conclu sions Summary: 1. Left ventricle: Systolic function is normal. There is no evidence of a thrombus.2. Left atrium: There is a thrombus in the appendage.3. Pericardium, extracardiac: A small to moderate pericardial effusion is identified. There is no evidence of hemodynamic compromise. There is a moderate fibrinous pleural effusion. Impressions: Successful cardioversion. Prepared andelectronically signed by PATIENT NAME: COLE JEFFREY [phone] [address] PATIENT NAME: COLE JEFFREY ADMIT DATE: 03/28/21ACCOUNT NO: [id number] ROOM NO: [facility] AGE: 81 REPORT TYPE: eTRANSESOPHAGEAL ECHO SEX: M ADMITTING PHYSICIAN:Aisha Lucas MD ATTENDING PHYSICIAN:Aisha Lucas MD, Gregory MD04/10/2021 10:30 at 1030 PATIENT NAME: COLE JEFFREY [id number]:30:00Z.[id number] for patient [id number]:31:18 2021-04-10 [id number]:22:00 [facility] 09:22:00 [facility] ([facility])Hospitalist Progress NoteREPORT#:[id number] REPORT STATUS: SignedDATE:04/10/21 TIME: 921 PATIENT: COLE JEFFREY UNIT #: [id number]#: [id number] [address] AGE: 81 SEX: M ATTEND: Radha Haas [facility] AUTHOR: Aarti Plummer MD R1 * ALL edits or amendments must be made on the electronic/computer document * Aarti Plummer 04/10/21921:SubjectiveChief Complaint:DEANA yesterday w/ ANDREW thrombus, did not cardiovert. Pt able to ambulate without chest pain/dyspnea. Still aflutter vs afib. HR 50s overnight, low 100s this am. 3BM yesterday. Review of SystemsConstitutional:Denies: chills, fatigue, fever, generalized weakness, lethargy, malaise, recent wt loss, other. Skin:Reports: laceration (incision sites, tender). Denies: abrasion, bruising, contusion, ecchymosis. Eyes:Denies: redness, discharge, visual loss/blurred, itching, diplopia, eye pain, photophobia, swelling, other. ENT:Denies: ear drainage, ear ringing, earache, hearing loss, mouth pain, nasal congestion, nose bleeding, sinus problem, sore throat, throat pain, throat swelling, tongue pain, tongue swelling, toothache, voice change, other. Respiratory:Denies: COWAN (dyspnea on exertion), hemoptysis, non productive cough, parox nocturnal dyspnea, pleurisy, pleuritic pain, pneumonia, productive cough (sputum), SOB, wheezing, other. Cardiovascular:Reports: edema. Denies: chest pain, COWAN (dyspnea on exertion), orthopnea, palpitations. GI:Denies: abdominal pain, anorexia, constipation, diarrhea, dysphagia, GERD, hematemesis, hematochezia, hiatal hernia, melena, nausea, rectal pain, vomiting,other. Objective GeneralVS/I O:Vital Signs: Date Time Temp Pulse Resp B/P B/P Pulse O2 O2 Flow FiO2 Mean Ox Delivery Rate 04/10 1230 53 27 156/70 100 89 04/10 1200 97.4 04/10 1200 54 27 148/67 96 95 04/10 1130 54 19 153/67 97 99 04/10 1100 54 22 138/63 91 94 04/10 1030 54 27 144/67 96 95 04/10 1000 54 30 129/86 104 93 04/10 0930 60 29 133/60 86 94 04/10 0900 108 28 154/70 101 94 04/10 0830 110 32 149/67 95 95 04/10 0800 73 31 164/118 135 94 04/10 0730 73 19 172/97 129 95 04/10 0700 97.6 04/10 0649 54 18 152/67 96 96 04/10 0630 54 17 04/10 0600 54 20 160/74 106 93 04/10 0528 97 04/10 0519 54 19 154/72 104 99 04/10 0510 54 19 99 04/10 0500 56 24 04/10 0430 53 21 100 04/10 0400 97.2 Room air 04/10 0400 54 25 100 04/10 0330 53 23 100 04/10 0300 53 18 100 04/10 0237 94 Room air 21 04/10 0230 54 17 135/64 92 100 04/10 0200 53 18 100 04/10 0130 53 24 100 04/10 0100 53 17 159/91 118 100 04/10 0030 53 18 158/70 101 100 04/10 0000 97.0 Room air 04/10 0000 53 20 145/65 94 100 04/09 2330 53 19 145/68 98 100 04/09 2300 53 99 04/09 2230 53 22 146/69 99 100 04/09 2200 52 25 143/65 94 100 04/09 2130 52 20 159/70 101 100 04/09 2049 67 04/09 2030 53 20 159/67 96 97 04/09 2000 97.4 Room air 04/09 2000 166/69 99 04/09 2000 71 27 95 04/09 1930 65 20 155/95 120 93 04/09 1900 107 25 148/75 105 95 04/09 1830 95 Nasal 21 cannula 04/09 1817 105 04/09 1800 105 34 150/81 109 88 10/28 1733 84 129 85 04/09 1729 94 04/09 1700 60 19 173/74 106 99 04/09 1630 52 18 151/67 96 100 04/09 1600 97.8 04/09 1600 71 22 135/62 86 87 04/09 1530 76 24 150/70 100 96 04/09 1525 66 21 144/65 94 97 04/09 1522 62 19 137/63 91 99 04/09 1519 62 18 128/58 83 99 04/09 1516 62 22 130/59 85 98 04/09 1513 59 22 113/58 80 97 04/09 1510 58 19 123/60 86 97 04/09 1507 54 17 123/59 85 99 04/09 1505 58 18 124/65 88 97 04/09 1500 73 21 98 04/09 1459 77 23 165/119 137 98 24 hour I O ending at 0700: 04/10 0700 04/09 1900 Intake Total 600 500 Output Total 525 400 Balance 75 100 Intake, Oral 600 500 Number 1 2 Bowel Movements Number Voids 1 Output, Urine 525 400 PATIENT WEIGHT: Weight (lb): 240Weight (oz): 8.07Weight (kg): 108.862 Medications:Active Meds + DC'd Last 24 HrsLosartan Potassium (COZAAR) 100 MG DAILY PO Enoxaparin Sodium (LOVENOX) 60 MG 0600 SUBQ Warfarin Sodium (COUMADIN) 5 MG QPM PO Lidocaine HCl (Lidocaine 2% Viscous) 0 .STK-MED ONE .ROUTE (DC) Lidocaine HCl (XYLOCAINE 2%) 0 .STK-MED ONE .ROUTE (DC) Benzocaine (HURRICAINE) 0 .STK-MED ONE .ROUTE (DC) Atropine Sulfate (ATROPINE SULFATE) 0 .STK-MED ONE .ROUTE (DC) Benzocaine (HURRICAINE) 0 .STK-MED ONE .ROUTE (DC) Flumazenil (ROMAZICON) 0 .STK-MED ONE .ROUTE (DC) Lidocaine HCl (LIDOCAINE HCL) 0 .STK-MED ONE .ROUTE (DC) Lidocaine HCl (XYLOCAINE 2%) 0 .STK-MED ONE .ROUTE (DC) Naloxone HCl (NARCAN) 0 .STK-MED ONE .ROUTE (DC) Wound Care/Dressing Products ([facility]) 1 ROLDAN DAILY PRN TOPICAL (CKD) Linagliptin (TRADJENTA) 5 MG DAILY PO Metoprolol Tartrate (LOPRESSOR) 50 MG Q12HR PO Insulin Human Regular (HUMULIN R) 100 UNIT ASDIR IV (DC) Sodium Chloride (SODIUM CHLORIDE 0.9%) 99 MLNicardipine HCl (CARDENE I.V.) 25 MG ASDIR IV (CKD) Sodium Chloride (SODIUM CHLORIDE 0.9%) 250 MLInsulin Human Lispro (HumaLOG) MEDIUM DOSE SLIDING SCALE AC HS SUBQ Polyethylene Glycol (MIRALAX) 17 GM DAILY PO (DC) Dextrose/Water (DEXTROSE 50% IN WATER) 12.5 GM ASDIR PRN IV Dextrose/Water (DEXTROSE 50% IN WATER) 25 GM ASDIR PRN IV Enoxaparin Sodium (LOVENOX) 40 MG QAM SUBQ (DC) Digoxin (LANOXIN) 0.25 MG DAILY PO (CKD) Amiodarone HCl (CORDARONE) 400 MG BID PO (CKD) Amiodarone HCl (Nexterone PREMIX DRIP) 200 ML ASDIR IV (CKD) Simethicone (MYLICON 80MG) 160 MG Q6H PRN PRN PO Polyethylene Glycol (MIRALAX) 17 GM BID PRN PO Docusate Sodium (COLACE) 100 MG BID PO Famotidine (PEPCID) 20 MG BID PO Ferrous Sulfate (FEOSOL) 325 MG BID PO Benzonatate (TESSALON PERLE) 100 MG TID PRN PRN PO Benzocaine/Menthol (Cepacol Sore Throat Lozenge) 1 EACH Q4H PRN PRN MM Clopidogrel Bisulfate (PLAVIX) 75 MG DAILY PO Calcium Gluconate (CALCIUM GLUCONATE 10%) 1,000 MG ASDIR PRN IV Sodium Chloride (SODIUM CHLORIDE 0.9%) 100 MLDobutamine HCl/Dextrose (DOBUTamine HCL IN DEXTROSE) 250 ML ASDIR PRN IV Epinephrine (EPINEPHrine/NS 4MG/250ML) 250 ML ASDIR PRN IV Hydrocodone Bitart/Acetaminophen (NORCO 5/325 TABLET (C-II)) 1 TAB Q4H PRN PRN PO Lidocaine HCl/Dextrose (LIDOCAINE HCL IN 5% DEXTROSE) 500 ML ASDIR PRN IV (CKD) Magnesium Sulfate (MAG SULFATE 2GM PREMIX) 50 ML ASDIR PRN IV Magnesium Sulfate/Dextrose (Magnesium Sulfate) 100 ML ASDIR PRN IV Meperidine HCl (DEMEROL (C-II)) 12.5 MG Q6H PRN PRN IM Morphine Sulfate (morphine SULFATE (C-II)) 2 MG Q15M PRN PRN IV Ondansetron HCl (ZOFRAN) 4 MG Q8H PRN PRN IV Potassium Chloride (Potassium Chloride) 50 ML ASDIR PRN IV Sodium Bicarbonate (SODIUM BICARBONATE) 4.2 GM ASDIR PRN IV (CKD) Aspirin (ASPIRIN EC) 81 MG DAILY PO Levothyroxine Sodium (Synthroid) 100 MCG DAILY PO Atorvastatin Calcium (LIPITOR) 80 MG BEDTIME PO Clotrimazole (LOTRIMIN) 1 ROLDAN BID TOPICAL (CKD) Oxybutynin Chloride (DITROPAN) 5 MG BEDTIME PO Tamsulosin HCl (FLOMAX) 0.4 MG BID PO Finasteride (PROSCAR) 5 MG DAILY PO Ondansetron HCl (ZOFRAN) 4 MG Q8H PRN PRN IV Nutrition assessment:The data set between the solid lines has been imported from the dietitian's assessment. Any exceptions have been noted under Provider comments. BMI Calculated: 32.5Nutrition related diagnosis: ObeseNutrition diagnosis details: BMI 30-39.9Nutrition problem: KNOWLEDGE DEFICITNutrition etiology: CARDIAC HEALTH AND DIETNutrition signs and symptoms: MD CONSULT FOR HEART HEALTHY , DIET EDUCATIONNutrition prescription: ON 4 GM SODIUM AND 1800 CALORIE DIABETIC DIET AND ENDORSED GOOD APPETITE. STATUS POST HEART HEALTHY DIET EDUCATION AND WAS PRESENT DURING THE EDUCATION.Dietitian name: Ava Benito, DIETAssessment completed: 04/07/21 Provider comments on imported dietitian assessment: Physical ExamGeneral appearance: alert, awake, oriented, no acute distress, pleasant, conversational, mental status normalHead/Eyes: atraumatic, normal conjunctiva/scleraENT: moist mucosal membranesNeck: full range of motion, supple/no meningismusCardiovascular: tachycardic, normal capillary refill, normal heart sounds, no murmurRespiratory: clear to auscultation, symmetric expansion, no distressAbdomen: non-tender, normal bowel sounds, soft, no distention, no guarding, no hernia, no mass/organomegaly, no reboundGenitourinary: no foleyExtremities: edema (2+ to knees, BLE), moves all, normal capillary refill, normal range of motionNeuro/HUMAN RESOURCES LEADER: alert, oriented X 3, CNII-XII intactSkin: dry, normal temperatureWound/incision: Location:INCISIONS IN CENTRAL CHEST and BLE 2/2 CABG, DRESSING C/D/IUlcer: Location: buttock Stage: 2Psychiatry: normal affect, normal judgment/insight ResultsFindings/Data:Laboratory Tests 04/10 04/10 04/09 04/09 1223 0800 2010 1641 Chemistry POC Glucose (60 - 99 MG/DL) 158 H 150 H 169 H 148 H Laboratory Tests 04/10 0719 Coagulation INR (0.86 - 1.14) 1.2 H PT Patient/Control Mix (9.5 - 12.7 SECONDS) 13.8 H Results: labs reviewed Diagnosis, Assessment Plan Free Text DxA P NotesFree text DxA P notes:81 y/o M w/ PMH HTN, HLD, 90 pack-year smoking hx, DM2, CAD, PAD, frequent SVT/PVC, neuropathy who presented after anginal symptoms. Multi-vessel CAD on cath. S/CABG 03/31. DEANA/cardioversion yesterday w/ ANDREW thrombus. #s/p CABG#CAD w/ multivessel disease#PAD#HLD #Afib/Aflutter#Left atrial appendage thrombus Aflutter vs afib. Tachycardia improved. BLE edema on exam improved. Incisions C/D/I. Able to ambulate w/o dyspnea/chest pain. DEANA found thrombus in ANDREW. - cont metoprolol tartrate, digoxin, amiodarone - ASA, atorvastatin, plavix- cardiology, cardiovascular surgery following - monitor HR - Warfarin started, monitor INR - Plans for repeat DEANA in 4-6wks with possible cardioversion if aflutter/afib continues- pacer wires to be removed today #HTN BPs elevated- on metoprolol- restarted home losartan 100mg daily #DM2BGs controlled- MDSSI. on home linagliptin. - gabapentin #Hypothyroid - home levothyroxine #BPH- cont home tamsulosin, finasteride, oxybutinin #Anemia- ferrous sulfate #Stage 2 buttock ulcer- physician wound care consult - [facility] Code: FULLDVT: Lovenox GI ppx: famotidineDiet: diabeticDischarge: to IPR after pacer wires removed today Quality: Gen Med Crit Care VTE ProphylaxisVTE prophylaxis initiated: yes (lovenox) Current MedicationsCurrent medication review:I attest that the foregoing medication list in the medical record is true, accurate, and complete to the best of my knowledge. Advanced Care Plan 65 or OlderDiscussed with: patientDiscussion included: code status (full code) Radha Haas 04/11/21 1431:Attestations Teaching Physician AttestationF/U visit w/ resident:I saw the patient with the resident and . . . agree with the resident's findings and plan. at 1445 at 1435 RPT #:[id number] OF REPORTPRProgress [id number]:22:00Z.[id number] for patient [id number]:45:32 2021-04-10 [id number]:08:00 [facility]00 [facility] ([facility])Cardiology Progress NoteREPORT#:[id number] REPORT STATUS: SignedDATE:04/10/21 TIME: 06 PATIENT: COLE JEFFREY UNIT #: [id number]#: [id number] [facility] AGE: 81 SEX: M ATTEND: [facility] AUTHOR: Ruiz Bhatti MD * ALL edits or amendments must be made on the electronic/computer document * SubjectiveChief Complaint:CADPatient reports:No: chest pain, palpitations, shortness of breath. Objective GeneralVS/I O:24 hour I O ending at 0700: 04/10 0700 04/09 1900 Intake Total 600 500 Output Total 525 400 Balance 75 100 Intake, Oral 600 500 Number 1 2 Bowel Movements Number Voids 1 Output, Urine 525 400 Vital Signs: Date Time Temp Pulse Resp B/P B/P Pulse O2 O2 Flow FiO2 Mean Ox Delivery Rate 04/10 0500 56 24 04/10 0430 53 21 100 04/10 0400 97.2 Room air 04/10 0400 54 25 100 04/10 0330 53 23 100 04/10 0300 53 18 100 04/10 0237 94 Room air 21 04/10 0230 54 17 135/64 92 100 04/10 0200 53 18 100 04/10 0130 53 24 100 04/10 0100 53 17 159/91 118 100 04/10 0030 53 18 158/70 101 100 04/10 0000 97.0 Room air 04/10 0000 53 20 145/65 94 100 04/09 2330 53 19 145/68 98 100 04/09 2300 53 99 04/09 2230 53 22 146/69 99 100 04/09 2200 52 25 143/65 94 100 04/09 2130 52 20 159/70 101 100 04/09 2049 67 04/09 2030 53 20 159/67 96 97 04/09 2000 97.4 Room air 04/09 2000 166/69 99 04/09 2000 71 27 95 04/09 1930 65 20 155/95 120 93 04/09 1900 107 25 148/75 105 95 04/09 1830 95 Nasal 21 cannula 04/09 1817 105 04/09 1800 105 34 150/81 109 88 04/09 1733 84 129 85 04/09 1729 94 04/09 1700 60 19 173/74 106 99 04/09 1630 52 18 151/67 96 100 04/09 1600 97.8 04/09 1600 71 22 135/62 86 87 04/09 1530 76 24 150/70 100 96 04/09 1525 66 21 144/65 94 97 04/09 1522 62 19 137/63 91 99 04/09 1519 62 18 128/58 83 99 04/09 1516 62 22 130/59 85 98 04/09 1513 59 22 113/58 80 97 04/09 1510 58 19 123/60 86 97 04/09 1507 54 17 123/59 85 99 04/09 1505 58 18 124/65 88 97 04/09 1500 73 21 98 04/09 1459 77 23 165/119 137 98 04/09 1430 107 32 152/91 116 04/09 1400 67 28 165/91 122 04/09 1333 80 28 166/75 108 04/09 1330 73 27 138 04/09 1300 75 24 163/72 104 94 04/09 1230 55 28 149/66 95 96 04/09 1200 97.6 04/09 1200 55 28 137/65 93 95 04/09 1130 55 23 134/64 92 95 04/09 1100 55 23 142/65 93 98 04/09 1030 55 19 125/59 85 96 04/09 1000 75 20 151/66 95 99 04/09 0930 115 19 133/69 95 95 04/09 0900 115 20 128/75 97 95 04/09 0830 115 14 124/69 91 96 04/09 0824 137/68 97 98 04/09 0751 114 25 97 04/09 0730 97.8 04/09 0730 114 22 97 04/09 0700 114 21 96 04/09 0637 113 19 141/72 99 96 PATIENT WEIGHT: Weight (lb): 240Weight (oz): 8.07Weight (kg): 108.862 Medications:Active Meds + DC'd Last 24 HrsEnoxaparin Sodium (LOVENOX) 60 MG 0600 SUBQ Warfarin Sodium (COUMADIN) 5 MG QPM PO Lidocaine HCl (Lidocaine 2% Viscous) 0 .STK-MED ONE .ROUTE (DC) Lidocaine HCl (XYLOCAINE 2%) 0 .STK-MED ONE .ROUTE (DC) Benzocaine (HURRICAINE) 0 .STK-MED ONE .ROUTE (DC) Atropine Sulfate (ATROPINE SULFATE) 0 .STK-MED ONE .ROUTE (DC) Benzocaine (HURRICAINE) 0 .STK-MED ONE .ROUTE (DC) Flumazenil (ROMAZICON) 0 .STK-MED ONE .ROUTE (DC) Lidocaine HCl (LIDOCAINE HCL) 0 .STK-MED ONE .ROUTE (DC) Lidocaine HCl (XYLOCAINE 2%) 0 .STK-MED ONE .ROUTE (DC) Naloxone HCl (NARCAN) 0 .STK-MED ONE .ROUTE (DC) Etomidate (AMIDATE) 0 .STK-MED ONE .ROUTE (DC) Fentanyl Citrate (SUBLIMAZE (C-II)) 0 .STK-MED ONE .ROUTE (DC) Midazolam HCl (VERSED (C-IV)) 0 .STK-MED ONE .ROUTE (DC) Calcium Gluconate (CALCIUM GLUCONATE 10%) 0 .STK-MED ONE IV (DC) Wound Care/Dressing Products ([facility]) 1 ROLDAN DAILY PRN TOPICAL (CKD) Linagliptin (TRADJENTA) 5 MG DAILY PO Metoprolol Tartrate (LOPRESSOR) 50 MG Q12HR PO Insulin Human Regular (HUMULIN R) 100 UNIT ASDIR IV (DC) Sodium Chloride (SODIUM CHLORIDE 0.9%) 99 MLNicardipine HCl (CARDENE I.V.) 25 MG ASDIR IV (CKD) Sodium Chloride (SODIUM CHLORIDE 0.9%) 250 MLInsulin Human Lispro (HumaLOG) MEDIUM DOSE SLIDING SCALE AC HS SUBQ Polyethylene Glycol (MIRALAX) 17 GM DAILY PO Dextrose/Water (DEXTROSE 50% IN WATER) 12.5 GM ASDIR PRN IV Dextrose/Water (DEXTROSE 50% IN WATER) 25 GM ASDIR PRN IV Enoxaparin Sodium (LOVENOX) 40 MG QAM SUBQ (DC) Digoxin (LANOXIN) 0.25 MG DAILY PO (CKD) Amiodarone HCl (CORDARONE) 400 MG BID PO (CKD) Amiodarone HCl (Nexterone PREMIX DRIP) 200 ML ASDIR IV (CKD) Simethicone (MYLICON 80MG) 160 MG Q6H PRN PRN PO Polyethylene Glycol (MIRALAX) 17 GM BID PRN PO Docusate Sodium (COLACE) 100 MG BID PO Famotidine (PEPCID) 20 MG BID PO Ferrous Sulfate (FEOSOL) 325 MG BID PO Benzonatate (TESSALON PERLE) 100 MG TID PRN PRN PO Benzocaine/Menthol (Cepacol Sore Throat Lozenge) 1 EACH Q4H PRN PRN MM Clopidogrel Bisulfate (PLAVIX) 75 MG DAILY PO Calcium Gluconate (CALCIUM GLUCONATE 10%) 1,000 MG ASDIR PRN IV Sodium Chloride (SODIUM CHLORIDE 0.9%) 100 MLDobutamine HCl/Dextrose (DOBUTamine HCL IN DEXTROSE) 250 ML ASDIR PRN IV Epinephrine (EPINEPHrine/NS 4MG/250ML) 250 ML ASDIR PRN IV Hydrocodone Bitart/Acetaminophen (NORCO 5/325 TABLET (C-II)) 1 TAB Q4H PRN PRN PO Lidocaine HCl/Dextrose (LIDOCAINE HCL IN 5% DEXTROSE) 500 ML ASDIR PRN IV (CKD) Magnesium Sulfate (MAG SULFATE 2GM PREMIX) 50 ML ASDIR PRN IV Magnesium Sulfate/Dextrose (Magnesium Sulfate) 100 ML ASDIR PRN IV Meperidine HCl (DEMEROL (C-II)) 12.5 MG Q6H PRN PRN IM Morphine Sulfate (morphine SULFATE (C-II)) 2 MG Q15M PRN PRN IV Ondansetron HCl (ZOFRAN) 4 MG Q8H PRN PRN IV Potassium Chloride (Potassium Chloride) 50 ML ASDIR PRN IV Sodium Bicarbonate (SODIUM BICARBONATE) 4.2 GM ASDIR PRN IV (CKD) Aspirin (ASPIRIN EC) 81 MG DAILY PO Levothyroxine Sodium (Synthroid) 100 MCG DAILY PO Atorvastatin Calcium (LIPITOR) 80 MG BEDTIME PO Clotrimazole (LOTRIMIN) 1 ROLDAN BID TOPICAL (CKD) Oxybutynin Chloride (DITROPAN) 5 MG BEDTIME PO Tamsulosin HCl (FLOMAX) 0.4 MG BID PO Finasteride (PROSCAR) 5 MG DAILY PO Ondansetron HCl (ZOFRAN) 4 MG Q8H PRN PRN IV Physical ExamGeneral appearance: alert, awake, orientedHead/Eyes: atraumatic, normocephalicENT: moist mucosal membranesNeck: no JVDCardiovascular: CV assessment: irregularly irregularRespiratory: crackles, decreased breath sounds, no distressLower extremity: LE assessment: Trace edema.Musculoskeletal: full range of motionNeuro/HUMAN RESOURCES LEADER: alert, oriented X 3, CN II-XII intactSkin: dry, intactWound/incision: Location:Sternal Site condition: dressing clean dryUlcer: Location: buttock Stage: 2Psychiatry: normal affect, normal judgment/insight, normal mood ResultsFindings/Data:Laboratory Tests 04/09 1641 1235 0729 Chemistry POC Glucose (60 - 99 MG/DL) 169 H 148 H 163 H 160 H Telemetry Interpretation:Tele - ATACH with variable conduciton. HR Controlled. Diagnosis, Assessment Plan Free Text DxA P NotesFree Text DxA P Notes:IMP: 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 Volume stable HLP DM AFL - HR variable. ANDREW thrombus. PLAN: Anticoagulate. Consider DEANA at 4-6 weeks after therapeutic INR if AFL continues. Ambulate IS Rehab evaluation. at 1026 RPT #:[id number] OF REPORTPRProgress [id number]:08:00Z.[id number] for patient [id number]:26:38 2021-04-09 [id number] [facility] 16:36:00 [address] [place] [address] PATIENT NAME: COLE JEFFREY ADMIT DATE: 03/28/21ACCOUNT NO: [id number] ROOM NO: [facility] AGE: 81 REPORT TYPE: PROGRESS NOTE SEX: M ADMITTING PHYSICIAN:Radha Haas MD ATTENDING PHYSICIAN:Radha Haas MD DATE: 04/09/2021 CHART NOTE Mr. Jeffrey underwent a transesophageal echocardiogram today prior to plannedcardioversion. He was found to have a left atrial appendage thrombus. Thecardioversion was canceled. The patient will be anticoagulated and reassessedfor thrombus resolution. If his atrial flutter persists, we will plan TEEcardioversion in 4 to 6 weeks. Dictated By: Ruiz Bhatti MD WT: PN:Z.HIM/PEPGR/NTSDD: 04/09/2021 16:36:42DT: 04/09/2021 16:46:41Conf#: [id number]/DID#: [id number] Authenticated and Edited by Ruiz Bhatti MD On 04/13/21 3:14:55 PM at 0317 PATIENT NAME: COLE JEFFREY [id number]:46:[id number] for patient [id number]:18:12 2021-04-09 [id number] [facility] 14:46:00 [facility] ([facility])Cardiology Progress NoteREPORT#:[id number] REPORT STATUS: SignedDATE:04/09/21 TIME: 1446 PATIENT: COLE JEFFREY UNIT #: [id number]#: [id number] [address] AGE: 81 SEX: M ATTEND: Aisha Lucas [facility] AUTHOR: Ruiz Bhatti MD * ALL edits or amendments must be made on the electronic/computer document * SubjectiveChief Complaint:CADPatient reports:No: chest pain, palpitations, shortness of breath. Objective GeneralVS/I O:24 hour I O ending at 0700: 04/09 0700 04/08 1900 Intake Total 480 Output Total 450 500 Balance -450 -20 Intake, Oral 480 Number 3 Bowel Movements Number Voids 2 4 Output, Urine 450 500 Vital Signs: Date Time Temp Pulse Resp B/P B/P Pulse O2 O2 Flow FiO2 Mean Ox Delivery Rate 04/09 1300 75 24 163/72 104 94 04/09 1230 55 28 149/66 95 96 04/09 1200 97.6 04/09 1200 55 28 137/65 93 95 04/09 1130 55 23 134/64 92 95 04/09 1100 55 23 142/65 93 98 04/09 1030 55 19 125/59 85 96 04/09 1000 75 20 151/66 95 99 04/09 0930 115 19 133/69 95 95 04/09 0900 115 20 128/75 97 95 04/09 0830 115 14 124/69 91 96 04/09 0824 137/68 97 98 04/09 0751 114 25 97 04/09 0730 97.8 04/09 0730 114 22 97 04/09 0700 114 21 96 04/09 0637 113 19 141/72 99 96 04/09 0600 113 11 04/09 0556 155/86 114 04/09 0456 111 18 133/71 97 95 04/09 0426 110 21 143/75 102 97 04/09 0356 110 18 135/74 98 96 04/09 0326 110 19 139/69 97 93 04/09 0300 97.4 04/09 0256 110 21 140/71 99 94 04/09 0226 109 17 128/71 94 97 04/09 0156 109 17 129/69 92 96 04/09 0126 109 24 139/77 102 95 04/09 0056 96 17 121/66 88 93 04/09 0026 87 18 128/75 90 95 04/08 2356 87 17 104/85 92 93 04/08 2326 79 23 153/88 114 94 04/08 2300 97.4 Room air 04/08 2256 54 17 145/66 95 98 04/08 2156 78 27 132/65 94 87 04/08 2125 54 24 158/75 108 04/08 2055 108 25 145/82 107 98 04/08 2025 54 28 160/74 106 95 04/08 2000 96 Room air 21 04/08 1955 54 28 158/73 99 04/08 1929 54 26 100 04/08 1925 53 23 137/72 95 96 04/08 1924 53 24 98 04/08 1900 97.2 Room air 04/08 1900 53 23 95 04/08 1855 53 24 140/64 92 98 04/08 1830 57 27 94 04/08 1825 59 25 145/67 96 92 04/08 1823 62 27 80 04/08 1813 85 34 96 04/08 1800 71 31 04/08 1730 53 24 97 04/08 1725 53 23 138/64 92 96 04/08 1700 53 26 99 04/08 1655 53 19 141/65 94 96 04/08 1630 53 26 96 04/08 1627 53 24 97 04/08 1625 53 32 140/65 93 96 04/08 1600 53 21 96 04/08 1555 53 17 125/59 85 98 04/08 1530 53 19 96 04/08 1525 53 30 125/81 97 96 04/08 1518 97.6 58 32 158/67 97 95 Room air 04/08 1500 53 26 96 04/08 1455 53 29 133/60 87 97 PATIENT WEIGHT: Weight (lb): 240Weight (oz): 8.07Weight (kg): 108.862 Medications:Active Meds + DC'd Last 24 HrsAtropine Sulfate (ATROPINE SULFATE) 0 .STK-MED ONE .ROUTE (DC) Benzocaine (HURRICAINE) 0 .STK-MED ONE .ROUTE (DC) Flumazenil (ROMAZICON) 0 .STK-MED ONE .ROUTE (DC) Lidocaine HCl (LIDOCAINE HCL) 0 .STK-MED ONE .ROUTE (DC) Lidocaine HCl (XYLOCAINE 2%) 0 .STK-MED ONE .ROUTE (DC) Naloxone HCl (NARCAN) 0 .STK-MED ONE .ROUTE (DC) Etomidate (AMIDATE) 0 .STK-MED ONE .ROUTE (DC) Fentanyl Citrate (SUBLIMAZE (C-II)) 0 .STK-MED ONE .ROUTE (DC) Midazolam HCl (VERSED (C-IV)) 0 .STK-MED ONE .ROUTE (DC) Calcium Gluconate (CALCIUM GLUCONATE 10%) 0 .STK-MED ONE IV (DC) Hydralazine HCl (APRESOLINE) 5 MG ONCE ONE IV (DC) Wound Care/Dressing Products ([facility]) 1 ROLDAN DAILY PRN TOPICAL (CKD) Linagliptin (TRADJENTA) 5 MG DAILY PO Metoprolol Tartrate (LOPRESSOR) 50 MG Q12HR PO Insulin Human Regular (HUMULIN R) 100 UNIT ASDIR IV (CKD) Sodium Chloride (SODIUM CHLORIDE 0.9%) 99 MLNicardipine HCl (CARDENE I.V.) 25 MG ASDIR IV (CKD) Sodium Chloride (SODIUM CHLORIDE 0.9%) 250 MLInsulin Human Lispro (HumaLOG) MEDIUM DOSE SLIDING SCALE AC HS SUBQ Polyethylene Glycol (MIRALAX) 17 GM DAILY PO Dextrose/Water (DEXTROSE 50% IN WATER) 12.5 GM ASDIR PRN IV Dextrose/Water (DEXTROSE 50% IN WATER) 25 GM ASDIR PRN IV Enoxaparin Sodium (LOVENOX) 40 MG QAM SUBQ Digoxin (LANOXIN) 0.25 MG DAILY PO (CKD) Amiodarone HCl (CORDARONE) 400 MG BID PO (CKD) Amiodarone HCl (Nexterone PREMIX DRIP) 200 ML ASDIR IV (CKD) Simethicone (MYLICON 80MG) 160 MG Q6H PRN PRN PO Polyethylene Glycol (MIRALAX) 17 GM BID PRN PO Docusate Sodium (COLACE) 100 MG BID PO Famotidine (PEPCID) 20 MG BID PO Ferrous Sulfate (FEOSOL) 325 MG BID PO Benzonatate (TESSALON PERLE) 100 MG TID PRN PRN PO Benzocaine/Menthol (Cepacol Sore Throat Lozenge) 1 EACH Q4H PRN PRN MM Clopidogrel Bisulfate (PLAVIX) 75 MG DAILY PO Calcium Gluconate (CALCIUM GLUCONATE 10%) 1,000 MG ASDIR PRN IV Sodium Chloride (SODIUM CHLORIDE 0.9%) 100 MLDobutamine HCl/Dextrose (DOBUTamine HCL IN DEXTROSE) 250 ML ASDIR PRN IV Epinephrine (EPINEPHrine/NS 4MG/250ML) 250 ML ASDIR PRN IV Hydrocodone Bitart/Acetaminophen (NORCO 5/325 TABLET (C-II)) 1 TAB Q4H PRN PRN PO Lidocaine HCl/Dextrose (LIDOCAINE HCL IN 5% DEXTROSE) 500 ML ASDIR PRN IV (CKD) Magnesium Sulfate (MAG SULFATE 2GM PREMIX) 50 ML ASDIR PRN IV Magnesium Sulfate/Dextrose (Magnesium Sulfate) 100 ML ASDIR PRN IV Meperidine HCl (DEMEROL (C-II)) 12.5 MG Q6H PRN PRN IM Morphine Sulfate (morphine SULFATE (C-II)) 2 MG Q15M PRN PRN IV Ondansetron HCl (ZOFRAN) 4 MG Q8H PRN PRN IV Potassium Chloride (Potassium Chloride) 50 ML ASDIR PRN IV Sodium Bicarbonate (SODIUM BICARBONATE) 4.2 GM ASDIR PRN IV (CKD) Aspirin (ASPIRIN EC) 81 MG DAILY PO Levothyroxine Sodium (Synthroid) 100 MCG DAILY PO Atorvastatin Calcium (LIPITOR) 80 MG BEDTIME PO Clotrimazole (LOTRIMIN) 1 ROLDAN BID TOPICAL (CKD) Oxybutynin Chloride (DITROPAN) 5 MG BEDTIME PO Tamsulosin HCl (FLOMAX) 0.4 MG BID PO Finasteride (PROSCAR) 5 MG DAILY PO Ondansetron HCl (ZOFRAN) 4 MG Q8H PRN PRN IV Physical ExamGeneral appearance: alert, awake, orientedHead/Eyes: atraumatic, normocephalicENT: moist mucosal membranesNeck: no JVDCardiovascular: CV assessment: irregularly irregularRespiratory: crackles, decreased breath sounds, no distressLower extremity: LE assessment: Trace edema.Musculoskeletal: full range of motionNeuro/HUMAN RESOURCES LEADER: alert, oriented X 3, CN II-XII intactSkin: dry, intactWound/incision: Location:Sternal Site condition: dressing clean dryUlcer: Location: buttock Stage: 2Psychiatry: normal affect, normal judgment/insight, normal mood ResultsFindings/Data:Laboratory Tests 04/09 04/09 04/08 04/08 0749 0500 2030 1740 Chemistry Sodium (137 - 145 MMOL/L) 134 L Potassium (3.5 - 5.1 MMOL/L) 4.0 Chloride (98 - 107 MMOL/L) 102 Carbon Dioxide (22 - 30 MMOL/L) 28 Anion Gap (14 - 24 MMOL/L) 8 L BUN (9 - 20 MG/DL) 17 Creatinine (0.66 - 1.25 MG/DL) 1.00 Glomerular Filtr Rate > 60 Glucose (74 - 106 MG/DL) 126 H POC Glucose (60 - 99 MG/DL) 160 H 131 H 207 H Calcium (8.4 - 10.2 MG/DL) 7.9 L Laboratory Tests 04/09 0500 Hematology WBC (3.8 - 9.8 K/MM3) 10.0 H RBC (3.95 - 5.67 M/MM3) 2.88 L Hgb (12.4 - 16.7 G/DL) 8.1 L Hct (35.9 - 49.5 %) 25.4 L MCV (81.7 - 96.1 fL) 88 MCH (27.6 - 33.2 pg) 28.1 MCHC (32.9 - 35.5 %) 31.9 L RDW (12.1 - 15.2 %) 15.0 Plt Count (129 - 368 K/MM3) 404 H MPV (7.4 - 10.4 fl) 9.5 Neut % (Auto) (43 - 75 %) 60.9 Lymph % (Auto) (14 - 44 %) 18.2 Ocean % (Auto) (4 - 13 %) 12.1 Eos % (Auto) (0 - 6 %) 4.9 Baso % (Auto) (0 - 2 %) 0.4 Neut # (Auto) (2.0 - 7.6 K/mm3) 6.10 Lymph # (Auto) (1.0 - 3.8 K/mm3) 1.82 Ocean # (Auto) (0.1 - 0.8 K/mm3) 1.21 H Eos # (Auto) (0.0 - 0.2 K/mm3) 0.49 H Baso # (Auto) (0.0 - 0.2 K/mm3) 0.04 Immature Gran % (0.0 - 2.0 %) 3.5 H Nucleated RBC % (0 - 1.0 %) 0.0 Nucleated RBCs # (Man) (0.0 - 0.1 K/mm3) 0.00 Diagnosis, Assessment Plan Free Text DxA P NotesFree Text DxA P Notes:IMP: 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 Volume stable HLP DM AFL - HR controlled. PLAN: DEANA Cardioversion. Procedure, risks, benefits discussed. All questions answered, and he elects to proceed. Ambulate IS Rehab evaluation. at 1025 RPT #:[id number] OF REPORTPRProgress [id number]:[id number] for patient [id number]:25:58 2021-04-09 [id number]:57:00 [facility] 09:57:00 [facility] Progress NoteREPORT#:[id number] REPORT STATUS: SignedDATE:04/09/21 TIME: 956 PATIENT: COLE JEFFREY [place] UNIT #: [id number]#: [id number] [address] AGE: 81 SEX: M ATTEND: Aisha Lucas [facility] AUTHOR: Aarti Plummer MD R1 * ALL edits or amendments must be made on the electronic/computer document * Aarti Plummer 04/09/21 0957:SubjectiveChief Complaint:Pt able to ambulate without chest pain/dyspnea. Still with tachycardia this AM 110s, HR improved yesterday PM and ON. 3BM yesterday. Review of SystemsConstitutional:Denies: chills, fatigue, fever, generalized weakness, lethargy, malaise, recent wt loss. Skin:Denies: abrasion, bruising, contusion, diaphoresis, ecchymosis, itching. Allergy/Immun:Denies: allergic reaction, anaphylaxis, hives, itching, rhinorrhea. Eyes:Denies: redness, discharge, visual loss/blurred, itching, diplopia, eye pain. ENT:Denies: ear drainage, earache, hearing loss, mouth pain, nose bleeding, sinus problem, throat pain, throat swelling, tongue pain, tongue swelling. Respiratory:Denies: COWAN (dyspnea on exertion), hemoptysis, non productive cough, parox nocturnal dyspnea, pleurisy, pleuritic pain, pneumonia, productive cough (sputum), SOB. Cardiovascular:Reports: other (TTP incision sites). Denies: chest pain, COWAN (dyspnea on exertion), edema, orthopnea, palpitations. Objective GeneralVS/I O:Vital Signs: Date Time Temp Pulse Resp B/P B/P Pulse O2 O2 Flow FiO2 Mean Ox Delivery Rate 04/09 0930 115 19 133/69 95 95 04/09 0900 115 20 128/75 97 95 04/09 0830 115 14 124/69 91 96 04/09 0824 137/68 97 98 04/09 0751 114 25 97 04/09 0730 97.8 04/09 0730 114 22 97 04/09 0700 114 21 96 04/09 0637 113 19 141/72 99 96 04/09 0600 113 11 04/09 0556 155/86 114 04/09 0456 111 18 133/71 97 95 04/09 0426 110 21 143/75 102 97 04/09 0356 110 18 135/74 98 96 04/09 0326 110 19 139/69 97 93 04/09 0300 97.4 04/09 0256 110 21 140/71 99 94 04/09 0226 109 17 128/71 94 97 04/09 0156 109 17 129/69 92 96 04/09 0126 109 24 139/77 102 95 04/09 0056 96 17 121/66 88 93 04/09 0026 87 18 128/75 90 95 04/08 2356 87 17 104/85 92 93 04/08 2326 79 23 153/88 114 94 04/08 2300 97.4 Room air 04/08 2256 54 17 145/66 95 98 04/08 2156 78 27 132/65 94 87 04/08 2125 54 24 158/75 108 04/08 2055 108 25 145/82 107 98 04/08 2025 54 28 160/74 106 95 04/08 2000 96 Room air 21 04/08 1955 54 28 158/73 99 04/08 1929 54 26 100 04/08 1925 53 23 137/72 95 96 04/08 1924 53 24 98 04/08 1900 97.2 Room air 04/08 1900 53 23 95 04/08 1855 53 24 140/64 92 98 04/08 1830 57 27 94 04/08 1825 59 25 145/67 96 92 04/08 1823 62 27 80 04/08 1813 85 34 96 04/08 1800 71 31 04/08 1730 53 24 97 04/08 1725 53 23 138/64 92 96 04/08 1700 53 26 99 04/08 1655 53 19 141/65 94 96 04/08 1630 53 26 96 04/08 1627 53 24 97 04/08 1625 53 32 140/65 93 96 04/08 1600 53 21 96 04/08 1555 53 17 125/59 85 98 04/08 1530 53 19 96 04/08 1525 53 30 125/81 97 96 04/08 1518 97.6 58 32 158/67 97 95 Room air 04/08 1500 53 26 96 04/08 1455 53 29 133/60 87 97 04/08 1430 53 20 98 04/08 1425 53 24 116/58 83 99 04/08 1405 66 37 92 04/08 1404 65 37 160/67 97 90 04/08 1400 67 33 93 04/08 1330 68 28 91 04/08 1325 68 17 139/61 88 100 04/08 1258 55 28 04/08 1255 55 19 129/58 83 98 04/08 1243 55 20 97 04/08 1230 55 18 98 04/08 1225 55 14 113/57 79 96 04/08 1202 78 22 147/88 109 98 04/08 1200 79 27 04/08 1200 96.7 63 34 133/60 84 100 Room air 04/08 1130 59 31 96 04/08 1125 59 24 133/60 87 87 04/08 1100 83 24 90 04/08 1030 113 23 97 24 hour I O ending at 0700: 04/09 0700 04/08 1900 Intake Total 480 Output Total 450 500 Balance -450 -20 Intake, Oral 480 Number 3 Bowel Movements Number Voids 2 4 Output, Urine 450 500 PATIENT WEIGHT: Weight (lb): 240Weight (oz): 8.07Weight (kg): 108.862 Medications:Active Meds + DC'd Last 24 HrsCalcium Gluconate (CALCIUM GLUCONATE 10%) 0 .STK-MED ONE IV (DC) Hydralazine HCl (APRESOLINE) 5 MG ONCE ONE IV (DC) Wound Care/Dressing Products ([facility]) 1 ROLDAN DAILY PRN TOPICAL (CKD) Linagliptin (TRADJENTA) 5 MG DAILY PO Metoprolol Tartrate (LOPRESSOR) 50 MG Q12HR PO Insulin Human Regular (HUMULIN R) 100 UNIT ASDIR IV (CKD) Sodium Chloride (SODIUM CHLORIDE 0.9%) 99 MLNicardipine HCl (CARDENE I.V.) 25 MG ASDIR IV (CKD) Sodium Chloride (SODIUM CHLORIDE 0.9%) 250 MLInsulin Human Lispro (HumaLOG) MEDIUM DOSE SLIDING SCALE AC HS SUBQ Polyethylene Glycol (MIRALAX) 17 GM DAILY PO Dextrose/Water (DEXTROSE 50% IN WATER) 12.5 GM ASDIR PRN IV Dextrose/Water (DEXTROSE 50% IN WATER) 25 GM ASDIR PRN IV Enoxaparin Sodium (LOVENOX) 40 MG QAM SUBQ Digoxin (LANOXIN) 0.25 MG DAILY PO (CKD) Amiodarone HCl (CORDARONE) 400 MG BID PO (CKD) Amiodarone HCl (Nexterone PREMIX DRIP) 200 ML ASDIR IV (CKD) Simethicone (MYLICON 80MG) 160 MG Q6H PRN PRN PO Polyethylene Glycol (MIRALAX) 17 GM BID PRN PO Docusate Sodium (COLACE) 100 MG BID PO Famotidine (PEPCID) 20 MG BID PO Ferrous Sulfate (FEOSOL) 325 MG BID PO Benzonatate (TESSALON PERLE) 100 MG TID PRN PRN PO Benzocaine/Menthol (Cepacol Sore Throat Lozenge) 1 EACH Q4H PRN PRN MM Clopidogrel Bisulfate (PLAVIX) 75 MG DAILY PO Calcium Gluconate (CALCIUM GLUCONATE 10%) 1,000 MG ASDIR PRN IV Sodium Chloride (SODIUM CHLORIDE 0.9%) 100 MLDobutamine HCl/Dextrose (DOBUTamine HCL IN DEXTROSE) 250 ML ASDIR PRN IV Epinephrine (EPINEPHrine/NS 4MG/250ML) 250 ML ASDIR PRN IV Hydrocodone Bitart/Acetaminophen (NORCO 5/325 TABLET (C-II)) 1 TAB Q4H PRN PRN PO Lidocaine HCl/Dextrose (LIDOCAINE HCL IN 5% DEXTROSE) 500 ML ASDIR PRN IV (CKD) Magnesium Sulfate (MAG SULFATE 2GM PREMIX) 50 ML ASDIR PRN IV Magnesium Sulfate/Dextrose (Magnesium Sulfate) 100 ML ASDIR PRN IV Meperidine HCl (DEMEROL (C-II)) 12.5 MG Q6H PRN PRN IM Morphine Sulfate (morphine SULFATE (C-II)) 2 MG Q15M PRN PRN IV Ondansetron HCl (ZOFRAN) 4 MG Q8H PRN PRN IV Potassium Chloride (Potassium Chloride) 50 ML ASDIR PRN IV Sodium Bicarbonate (SODIUM BICARBONATE) 4.2 GM ASDIR PRN IV (CKD) Aspirin (ASPIRIN EC) 81 MG DAILY PO Levothyroxine Sodium (Synthroid) 100 MCG DAILY PO Atorvastatin Calcium (LIPITOR) 80 MG BEDTIME PO Clotrimazole (LOTRIMIN) 1 ROLDAN BID TOPICAL (CKD) Oxybutynin Chloride (DITROPAN) 5 MG BEDTIME PO Tamsulosin HCl (FLOMAX) 0.4 MG BID PO Finasteride (PROSCAR) 5 MG DAILY PO Ondansetron HCl (ZOFRAN) 4 MG Q8H PRN PRN IV Nutrition assessment:The data set between the solid lines has been imported from the dietitian's assessment. Any exceptions have been noted under Provider comments. BMI Calculated: 32.5Nutrition related diagnosis: ObeseNutrition diagnosis details: BMI 30-39.9Nutrition problem: KNOWLEDGE DEFICITNutrition etiology: CARDIAC HEALTH AND DIETNutrition signs and symptoms: MD CONSULT FOR HEART HEALTHY , DIET EDUCATIONNutrition prescription: ON 4 GM SODIUM AND 1800 CALORIE DIABETIC DIET AND ENDORSED GOOD APPETITE. STATUS POST HEART HEALTHY DIET EDUCATION AND WAS PRESENT DURING THE EDUCATION.Dietitian name: Ava Benito, DIETAssessment completed: 04/07/21 Provider comments on imported dietitian assessment: Physical ExamGeneral appearance: alert, awake, oriented, no acute distressHead/Eyes: atraumatic, normal conjunctiva/scleraENT: moist mucosal membranesNeck: full range of motion, supple/no meningismusCardiovascular: tachycardic, normal capillary refill, normal heart sounds, no murmurRespiratory: clear to auscultation, symmetric expansion, no distressAbdomen: non-tender, normal bowel sounds, soft, no distention, no guarding, no hernia, no mass/organomegaly, no reboundGenitourinary: no foleyExtremities: edema (2+ to knees, BLE), moves all, normal capillary refill, normal range of motionNeuro/HUMAN RESOURCES LEADER: alert, oriented X 3, CNII-XII intactSkin: dry, normal temperatureWound/incision: Location:INCISIONS IN CENTRAL CHEST and BLE 2/2 CABG, DRESSING C/D/IUlcer: Location: buttock Stage: 2Psychiatry: normal affect, normal judgment/insight ResultsFindings/Data:Laboratory Tests 04/09 04/09 04/08 04/08 04/08 0749 0500 2030 1740 1128 Chemistry Sodium (137 - 145 MMOL/L) 134 L Potassium (3.5 - 5.1 MMOL/L) 4.0 Chloride (98 - 107 MMOL/L) 102 Carbon Dioxide (22 - 30 MMOL/L) 28 Anion Gap (14 - 24 MMOL/L) 8 L BUN (9 - 20 MG/DL) 17 Creatinine (0.66 - 1.25 MG/DL) 1.00 Glomerular Filtr Rate > 60 Glucose (74 - 106 MG/DL) 126 H POC Glucose (60 - 99 MG/DL) 160 H 131 H 207 H 199 H Calcium (8.4 - 10.2 MG/DL) 7.9 L Laboratory Tests 04/09 0500 Hematology WBC (3.8 - 9.8 K/MM3) 10.0 H RBC (3.95 - 5.67 M/MM3) 2.88 L Hgb (12.4 - 16.7 G/DL) 8.1 L Hct (35.9 - 49.5 %) 25.4 L MCV (81.7 - 96.1 fL) 88 MCH (27.6 - 33.2 pg) 28.1 MCHC (32.9 - 35.5 %) 31.9 L RDW (12.1 - 15.2 %) 15.0 Plt Count (129 - 368 K/MM3) 404 H MPV (7.4 - 10.4 fl) 9.5 Neut % (Auto) (43 - 75 %) 60.9 Lymph % (Auto) (14 - 44 %) 18.2 Ocean % (Auto) (4 - 13 %) 12.1 Eos % (Auto) (0 - 6 %) 4.9 Baso % (Auto) (0 - 2 %) 0.4 Neut # (Auto) (2.0 - 7.6 K/mm3) 6.10 Lymph # (Auto) (1.0 - 3.8 K/mm3) 1.82 Ocean # (Auto) (0.1 - 0.8 K/mm3) 1.21 H Eos # (Auto) (0.0 - 0.2 K/mm3) 0.49 H Baso # (Auto) (0.0 - 0.2 K/mm3) 0.04 Immature Gran % (0.0 - 2.0 %) 3.5 H Nucleated RBC % (0 - 1.0 %) 0.0 Nucleated RBCs # (Man) (0.0 - 0.1 K/mm3) 0.00 Results: labs reviewed, vital signs stable Diagnosis, Assessment Plan Free Text DxA P NotesFree text DxA P notes:81 y/o M w/ PMH HTN, HLD, 90 pack-year smoking hx, DM2, CAD, PAD, frequent SVT/PVC, neuropathy who presented after anginal symptoms. Multi-vessel CAD on cath. S/CABG 03/31. DEANA/cardioversion today #s/p CABG#CAD w/ multivessel disease#PAD#HLD #Afib/AflutterAlternates between aflutter, afib, sinus rhythm. Tachycardia improved. BLE edemaon exam improved. Incisions C/D/I. Able to ambulate w/o dyspnea/chest pain. - cont metoprolol tartrate, digoxin, amiodarone - ASA, atorvastatin, plavix- cardiology, cardiovascular surgery following - monitor HR -DEANA/cardioversion today #HTN BP controlled - on metoprolol #DM2BGs controlled- MDSSI. on home linagliptin. - gabapentin #Hypothyroid - home levothyroxine #BPH- cont home tamsulosin, finasteride, oxybutinin #Anemia- ferrous sulfate #Stage 2 buttock ulcer- physician wound care consult - [facility] #Bowel regimen - daily miralax Code: FULLDVT: Lovenox GI ppx: famotidineDiet: NPODischarge: IPR, rehab eval Quality: Gen Med Crit Care VTE ProphylaxisVTE prophylaxis initiated: yes (lovenox) Current MedicationsCurrent medication review:I attest that the foregoing medication list in the medical record is true, accurate, and complete to the best of my knowledge. Advanced Care Plan 65 or OlderDiscussed with: patientDiscussion included: code status (full code) Aisha Lucas 04/09/21 2333:Attestations Teaching Physician AttestationF/U visit w/ resident:I saw the patient with the resident and . . . agree with the resident's findings and plan. at 1418 at 2334 [facility] #:[id number] OF REPORTPRProgress [id number]:57:[id number] for patient [id number]:18:55 2021-04-08 [id number]:11:00 [facility] 23:11:00 [facility] ([facility])Wound Care Progress NoteREPORT#:[id number] REPORT STATUS: SignedDATE:04/08/21 TIME: 2310 PATIENT: COLE JEFFREY UNIT #: [id number]#: [id number] [address]ML[address]: [address] AGE: 81 SEX: M ATTEND: Radha Haas [facility] AUTHOR: January Mccollum MD * ALL edits or amendments must be made on the electronic/computer document * SubjectiveChief Complaint:no conerns, I had therapy todayHPI:Patient is seen today for follow-up of his wounds, he is reclined in the chair, no distress noted or reported. Objective GeneralVS:Last Documented: Result Date Time Pulse Ox 98 04/08 2256 B/P 145/66 04/08 2256 B/P Mean 95 04/08 2256 Pulse 54 04/08 2256 Resp 17 04/08 2256 FiO2 21 04/08 2000 O2 Delivery Room air 04/08 2000 Temp 36.4 04/08 1518 O2 Flow Rate 2 04/04 0946 PATIENT WEIGHT: Weight (lb): 240Weight (oz): 8.07Weight (kg): 108.862 Medications:Active Meds + DC'd Last 24 HrsHydralazine HCl (APRESOLINE) 5 MG ONCE ONE IV (DC) Wound Care/Dressing Products ([facility]) 1 ROLDAN DAILY PRN TOPICAL (CKD) Linagliptin (TRADJENTA) 5 MG DAILY PO Metoprolol Tartrate (LOPRESSOR) 50 MG Q12HR PO Insulin Human Regular (HUMULIN R) 100 UNIT ASDIR IV (CKD) Sodium Chloride (SODIUM CHLORIDE 0.9%) 99 MLNicardipine HCl (CARDENE I.V.) 25 MG ASDIR IV (CKD) Sodium Chloride (SODIUM CHLORIDE 0.9%) 250 MLInsulin Human Lispro (HumaLOG) MEDIUM DOSE SLIDING SCALE AC HS SUBQ Polyethylene Glycol (MIRALAX) 17 GM DAILY PO Dextrose/Water (DEXTROSE 50% IN WATER) 12.5 GM ASDIR PRN IV Dextrose/Water (DEXTROSE 50% IN WATER) 25 GM ASDIR PRN IV Enoxaparin Sodium (LOVENOX) 40 MG QAM SUBQ Digoxin (LANOXIN) 0.25 MG DAILY PO (CKD) Amiodarone HCl (CORDARONE) 400 MG BID PO (CKD) Amiodarone HCl (Nexterone PREMIX DRIP) 200 ML ASDIR IV (CKD) Simethicone (MYLICON 80MG) 160 MG Q6H PRN PRN PO Polyethylene Glycol (MIRALAX) 17 GM BID PRN PO Docusate Sodium (COLACE) 100 MG BID PO Famotidine (PEPCID) 20 MG BID PO Ferrous Sulfate (FEOSOL) 325 MG BID PO Benzonatate (TESSALON PERLE) 100 MG TID PRN PRN PO Benzocaine/Menthol (Cepacol Sore Throat Lozenge) 1 EACH Q4H PRN PRN MM Clopidogrel Bisulfate (PLAVIX) 75 MG DAILY PO Calcium Gluconate (CALCIUM GLUCONATE 10%) 1,000 MG ASDIR PRN IV Sodium Chloride (SODIUM CHLORIDE 0.9%) 100 MLDobutamine HCl/Dextrose (DOBUTamine HCL IN DEXTROSE) 250 ML ASDIR PRN IV Epinephrine (EPINEPHrine/NS 4MG/250ML) 250 ML ASDIR PRN IV Hydrocodone Bitart/Acetaminophen (NORCO 5/325 TABLET (C-II)) 1 TAB Q4H PRN PRN PO Lidocaine HCl/Dextrose (LIDOCAINE HCL IN 5% DEXTROSE) 500 ML ASDIR PRN IV (CKD) Magnesium Sulfate (MAG SULFATE 2GM PREMIX) 50 ML ASDIR PRN IV Magnesium Sulfate/Dextrose (Magnesium Sulfate) 100 ML ASDIR PRN IV Meperidine HCl (DEMEROL (C-II)) 12.5 MG Q6H PRN PRN IM Morphine Sulfate (morphine SULFATE (C-II)) 2 MG Q15M PRN PRN IV Ondansetron HCl (ZOFRAN) 4 MG Q8H PRN PRN IV Potassium Chloride (Potassium Chloride) 50 ML ASDIR PRN IV Sodium Bicarbonate (SODIUM BICARBONATE) 4.2 GM ASDIR PRN IV (CKD) Aspirin (ASPIRIN EC) 81 MG DAILY PO Levothyroxine Sodium (Synthroid) 100 MCG DAILY PO Atorvastatin Calcium (LIPITOR) 80 MG BEDTIME PO Clotrimazole (LOTRIMIN) 1 ROLDAN BID TOPICAL (CKD) Oxybutynin Chloride (DITROPAN) 5 MG BEDTIME PO Tamsulosin HCl (FLOMAX) 0.4 MG BID PO Finasteride (PROSCAR) 5 MG DAILY PO Ondansetron HCl (ZOFRAN) 4 MG Q8H PRN PRN IV Physical ExamGeneral appearance: alert, awake, no acute distressHead/eyes: atraumatic, clear cornea, EOMICardiovascular: irregularly irregularRespiratory: clear to auscultation, no distressAbdomen: non-tender, no reboundExtremities: moves allUlcer: Location: buttock Stage: 2 Wound AssessmentWound Assessment 1: Type/cause: pressure Wound location: buttock (right) Tissue layers: slough, induration in the periwound Site condition: erythema, slough, raised, moist, irregular margin, not very well circumscribed Length (cm): 2 Width (cm): 4 Stage of pressure ulcer: stage III Lucy-wound: erythema Diagnosis, Assessment PlanProblem List/A P: 1. Peripheral artery disease 2. Diabetes 3. Obesity 4. Coronary artery disease 5. S/P CABG (coronary artery bypass graft) Free Text A P:Patient seen today for follow-up, his wound care consists continue with Cesar which is changed daily. Slight improvement in the wounds today. Modifications were made to his wound care orders for now. Continue to follow alongside care team and make modifications recommendations as needed. at 2303 RPT #:[id number] OF REPORTPNProcedure [id number]:11:00Z.[id number] [id number] for patient [id number]:03:55 2021-04-08 [id number] [facility] 19:49:[address] [address] PATIENT NAME: COLE JEFFREY ADMIT DATE: 03/28/21ACCOUNT NO: [id number] ROOM NO: Z.02 AGE: 81 REPORT TYPE: ELECTROCARDIOGRAM SEX: M ADMITTING PHYSICIAN:Aisha Lucas MD ATTENDING PHYSICIAN:Aisha Lucas MD Order:[id number] Reason : HUGO Test Date/Time Stamp:TueApr 08 2021 19:49:18Blood Pressure : / mmHGVent. Rate : 054 BPM Atrial Rate : 054 BPM P-R Int : 184 ms QRS Dur : 162 ms QT Int : 458 ms P-R-T Axes : -29 -30 032 degrees QTc Int : 434 ms Sinus bradycardiaLeft axis deviationNonspecific intraventricular blockCannot rule out Septal infarct , age undeterminedT wave abnormality, consider anterolateral ischemiaAbnormal ECGWhen compared with ECG of 07-APR-2021 09:06,Vent. rate has decreased BY 65 BPMNonspecific intraventricular block has replaced Right bundle branch blockMinimal criteria for Septal infarct are now presentConfirmed by NONI MARQUEZ ([id number]) on 04/09/2021 5:23:53 PM Referred By: Aisha Lucas Confirmed by:NONI MARQUEZ at 1723 PATIENT NAME: COLE JEFFREY .[id number] for patient [id number]:24:18 2021-04-08 [id number] [facility] 13:07:[address] [address] PATIENT NAME: COLE JEFFREY ADMIT DATE: 03/28/21ACCOUNT NO: [id number] ROOM NO: Z.SI02 AGE: 81 REPORT TYPE: PROGRESS NOTE SEX: M ADMITTING PHYSICIAN:Radha Haas MD ATTENDING PHYSICIAN:Radha Haas MD DATE: 04/07/2021 CARDIAC SURGERY SERVICE The patient seen at bedside in the ICU. The patient currently is stable. Thepatient is making appropriate progress. The patient is still on an AFib, atrialflutter. The patient will be evaluated by EP for possible cardioversion. Thepatient will start Coumadin and the patient also is already on Lovenox. Dictated By: Marcello Garvin MD WT: PN:Z.HIM/MCKRO/NTSDD: 04/08/2021 13:07:14DT: 04/08/2021 13:54:27Conf#: [id number]#: [id number] Authenticated by Marcello Garvin MD On 04/13/2021 07:53:25 AM at 0753 PATIENT NAME: COLE JEFFREY [id number]:54:00Z.[id number] for patient [id number]:54:02 2021-04-08 [id number]:12:00 [facility]CAWU 11:12:00 [facility])Hospitalist Progress NoteREPORT#:[id number] REPORT STATUS: SignedDATE:04/08/21 TIME: 1112 PATIENT: COLE JEFFREY UNIT #: [id number]#: [id number] [facility]-YFKD: [facility] AGE: 81 SEX: M ATTEND: Aisha Lucas MDA AUTHOR: Aarti Plummer MD R1 * ALL edits or amendments must be made on the electronic/computer document * Aarti Plummer 04/08/21 1112:SubjectiveChief Complaint:Pt able to ambulate without chest pain/dyspnea. Still with tachycardia 110s during the day. 3BM yesterday. Reports increased flatus. Eating well. Review of SystemsConstitutional:Denies: fever, generalized weakness, lethargy, malaise. Skin:Reports: laceration (surgical incisions). Denies: bruising, contusion, diaphoresis, ecchymosis, itching. Eyes:Denies: redness, discharge, visual loss/blurred, itching, diplopia, eye pain, photophobia, swelling, other. ENT:Denies: ear drainage, ear ringing, earache, hearing loss, mouth pain, nasal congestion, nose bleeding, sinus problem, sore throat, throat pain, throat swelling, tongue pain, tongue swelling, toothache, voice change, other. Respiratory:Denies: COWAN (dyspnea on exertion), hemoptysis, non productive cough, parox nocturnal dyspnea, pleurisy, pleuritic pain, pneumonia, productive cough (sputum), SOB, wheezing. Cardiovascular:Reports: edema. Denies: chest pain, COWAN (dyspnea on exertion), palpitations. GI:Denies: abdominal pain, anorexia, constipation, diarrhea, hematemesis, hematochezia, melena, nausea, vomiting. Objective GeneralVS/I O:Vital Signs: Date Time Temp Pulse Resp B/P B/P Pulse O2 O2 Flow FiO2 Mean Ox Delivery Rate 04/08 1000 96 Room air 21 04/08 0330 110 22 111/72 87 95 04/08 0300 97.4 04/08 0300 88 18 110/63 78 96 04/08 0230 89 18 95/61 74 96 04/08 0200 96 18 93/60 72 94 04/08 0130 92 21 97/51 72 95 04/08 0100 88 19 90/51 67 94 04/08 0030 81 21 95/71 80 92 04/07 2330 79 22 108/70 85 95 04/07 2300 97.6 04/07 2300 73 24 112/61 79 94 04/07 2230 73 25 118/58 83 94 04/076 73 27 126/53 77 94 04/077 99 24 126/78 94 96 04/07 2100 114 27 113/69 81 96 04/07 2030 113 24 127/73 89 96 04/07 2000 100 22 119/71 89 92 04/079 96 Room air 21 10/26 1930 100 28 114/80 92 95 04/07 1900 97.4 Room air 04/07 1900 112 30 105/79 89 94 04/07 1600 96.8 04/07 1200 114 30 124/80 98 95 04/07 1130 116 25 95 24 hour I O ending at 0700: 04/08 0700 04/07 1900 Intake Total 200 560.00 Output Total 250 150 Balance -50 410.00 Intake, IV 110.00 Intake, Oral 200 450 Number 1 2 Bowel Movements Number Voids 2 3 Output, Urine 250 150 PATIENT WEIGHT: Weight (lb): 240Weight (oz): 8.07Weight (kg): 108.862 Medications:Active Meds + DC'd Last 24 HrsWound Care/Dressing Products ([facility]) 1 ROLDAN DAILY PRN TOPICAL (CKD) Linagliptin (TRADJENTA) 5 MG DAILY PO Metoprolol Tartrate (LOPRESSOR) 50 MG Q12HR PO Insulin Human Regular (HUMULIN R) 100 UNIT ASDIR IV (CKD) Sodium Chloride (SODIUM CHLORIDE 0.9%) 99 MLNicardipine HCl (CARDENE I.V.) 25 MG ASDIR IV (CKD) Sodium Chloride (SODIUM CHLORIDE 0.9%) 250 MLInsulin Human Lispro (HumaLOG) MEDIUM DOSE SLIDING SCALE AC HS SUBQ Polyethylene Glycol (MIRALAX) 17 GM DAILY PO Dextrose/Water (DEXTROSE 50% IN WATER) 12.5 GM ASDIR PRN IV Dextrose/Water (DEXTROSE 50% IN WATER) 25 GM ASDIR PRN IV Enoxaparin Sodium (LOVENOX) 40 MG QAM SUBQ Digoxin (LANOXIN) 0.25 MG DAILY PO (CKD) Amiodarone HCl (CORDARONE) 400 MG BID PO (CKD) Amiodarone HCl (Nexterone PREMIX DRIP) 200 ML ASDIR IV (CKD) Simethicone (MYLICON 80MG) 160 MG Q6H PRN PRN PO Polyethylene Glycol (MIRALAX) 17 GM BID PRN PO Docusate Sodium (COLACE) 100 MG BID PO Famotidine (PEPCID) 20 MG BID PO Ferrous Sulfate (FEOSOL) 325 MG BID PO Benzonatate (TESSALON PERLE) 100 MG TID PRN PRN PO Benzocaine/Menthol (Cepacol Sore Throat Lozenge) 1 EACH Q4H PRN PRN MM Clopidogrel Bisulfate (PLAVIX) 75 MG DAILY PO Calcium Gluconate (CALCIUM GLUCONATE 10%) 1,000 MG ASDIR PRN IV Sodium Chloride (SODIUM CHLORIDE 0.9%) 100 MLDobutamine HCl/Dextrose (DOBUTamine HCL IN DEXTROSE) 250 ML ASDIR PRN IV Epinephrine (EPINEPHrine/NS 4MG/250ML) 250 ML ASDIR PRN IV Hydrocodone Bitart/Acetaminophen (NORCO 5/325 TABLET (C-II)) 1 TAB Q4H PRN PRN PO Lidocaine HCl/Dextrose (LIDOCAINE HCL IN 5% DEXTROSE) 500 ML ASDIR PRN IV (CKD) Magnesium Sulfate (MAG SULFATE 2GM PREMIX) 50 ML ASDIR PRN IV Magnesium Sulfate/Dextrose (Magnesium Sulfate) 100 ML ASDIR PRN IV Meperidine HCl (DEMEROL (C-II)) 12.5 MG Q6H PRN PRN IM Morphine Sulfate (morphine SULFATE (C-II)) 2 MG Q15M PRN PRN IV Ondansetron HCl (ZOFRAN) 4 MG Q8H PRN PRN IV Potassium Chloride (Potassium Chloride) 50 ML ASDIR PRN IV Sodium Bicarbonate (SODIUM BICARBONATE) 4.2 GM ASDIR PRN IV (CKD) Aspirin (ASPIRIN EC) 81 MG DAILY PO Levothyroxine Sodium (Synthroid) 100 MCG DAILY PO Atorvastatin Calcium (LIPITOR) 80 MG BEDTIME PO Clotrimazole (LOTRIMIN) 1 ROLDAN BID TOPICAL (CKD) Oxybutynin Chloride (DITROPAN) 5 MG BEDTIME PO Tamsulosin HCl (FLOMAX) 0.4 MG BID PO Finasteride (PROSCAR) 5 MG DAILY PO Ondansetron HCl (ZOFRAN) 4 MG Q8H PRN PRN IV Nutrition assessment:The data set between the solid lines has been imported from the dietitian's assessment. Any exceptions have been noted under Provider comments. BMI Calculated: 32.5Nutrition related diagnosis: ObeseNutrition diagnosis details: BMI 30-39.9Nutrition problem: KNOWLEDGE DEFICITNutrition etiology: CARDIAC HEALTH AND DIETNutrition signs and symptoms: MD CONSULT FOR HEART HEALTHY , DIET EDUCATIONNutrition prescription: ON 4 GM SODIUM AND 1800 CALORIE DIABETIC DIET AND ENDORSED GOOD APPETITE. STATUS POST HEART HEALTHY DIET EDUCATION AND WAS PRESENT DURING THE EDUCATION.Dietitian name: Ava Benito, DIETAssessment completed: 04/07/21 Provider comments on imported dietitian assessment: Physical ExamGeneral appearance: alert, awake, oriented, no acute distress, pleasant, conversationalHead/Eyes: atraumatic, normal conjunctiva/scleraENT: moist mucosal membranesNeck: full range of motion, supple/no meningismusCardiovascular: tachycardic, normal capillary refill, normal heart sounds, no murmurRespiratory: clear to auscultation, symmetric expansion, no distressAbdomen: non-tender, normal bowel sounds, soft, no distention, no guarding, no hernia, no mass/organomegaly, no reboundGenitourinary: no foleyExtremities: edema (1+ to knees, BLE), moves all, normal capillary refill, normal range of motionNeuro/HUMAN RESOURCES LEADER: alert, oriented X 3, CNII-XII intactSkin: dry, normal temperatureWound/incision: Location:INCISIONS IN CENTRAL CHEST and BLE 2/2 CABG, DRESSING C/D/IUlcer: Location: buttock Stage: 2Psychiatry: normal affect, normal judgment/insight ResultsFindings/Data:Laboratory Tests 04/08 04/07 04/07 04/07 0833 2032 1632 1211 Chemistry POC Glucose (60 - 99 MG/DL) 183 H 153 H 180 H 232 H Results: labs reviewed, vital signs stable Diagnosis, Assessment Plan Free Text DxA P NotesFree text DxA P notes:81 y/o M w/ PMH HTN, HLD, 90 pack-year smoking hx, DM2, CAD, PAD, frequent SVT/PVC, neuropathy who presented after anginal symptoms. Multi-vessel CAD on cath. S/p CABG 03/31. #s/p CABG#CAD w/ multivessel disease#PAD#HLD #Afib/AflutterBLE edema on exam improved. Incisions C/D/I. Latest EKG w/ sinus tach/PACs. Afib/Aflutter on telemetry. Tachycardia improved. Able to ambulate w/o dyspnea/chestpain. - cont metoprolol tartrate, digoxin, amiodarone - ASA, atorvastatin, plavix- cardiology, cardiovascular surgery following - will be evaluated by EP for possible cardioversion- monitor HR #HTN BP controlled- on metoprolol #DM2BGs controlled- MDSSI. on home linagliptin. - gabapentin #Hypothyroid - home levothyroxine #BPH- cont home tamsulosin, finasteride, oxybutinin #Anemia- ferrous sulfate #Stage 2 buttock ulcer- physician wound care consult - [facility] #Bowel regimen - daily miralax Code: FULLDVT: Lovenox GI ppx: famotidineDiet: diabetic diet Discharge: IPR, rehab eval Quality: Gen Med Crit Care VTE ProphylaxisVTE prophylaxis initiated: yes (lovenox) Current MedicationsCurrent medication review:I attest that the foregoing medication list in the medical record is true, accurate, and complete to the best of my knowledge. Advanced Care Plan 65 or OlderDiscussed with: patientDiscussion included: code status (full code) Aisha Lucas 04/08/21 1843:Attestations Teaching Physician AttestationF/U visit w/ resident:I saw the patient with the resident and . . . agree with the resident's findings and plan. at 1453 at 1843 RPT #:[id number] OF REPORTPRProgress [id number]:12:00Z.[id number] for patient [id number]:57:47 2021-04-08 [id number]:30:00 [facility] 06:30[facility]00 [facility] Progress NoteREPORT#:[id number] REPORT STATUS: SignedDATE:04/08/21 TIME: 06 PATIENT: COLE JEFFREY UNIT #: [id number]#: [id number] ROOM/BED: [id number]-OJRW: 39 AGE: 81 SEX: M ATTEND: Aisha Lucas [facility] AUTHOR: Ruiz Bhatti MD * ALL edits or amendments must be made on the electronic/computer document * SubjectiveChief Complaint:CADPatient reports:No: chest pain, palpitations, shortness of breath. Objective GeneralVS/I O:24 hour I O ending at 0700: 04/08 0700 04/07 1900 Intake Total 560.00 Output Total 250 150 Balance -250 410.00 Intake, IV 110.00 Intake, Oral 450 Number 1 2 Bowel Movements Number Voids 2 3 Output, Urine 250 150 Vital Signs: Date Time Temp Pulse Resp B/P B/P Pulse O2 O2 Flow FiO2 Mean Ox Delivery Rate 04/08 0330 110 22 111/72 87 95 04/08 0300 88 18 110/63 78 96 04/08 0230 89 18 95/61 74 96 04/08 0200 96 18 93/60 72 94 04/08 0130 92 21 97/51 72 95 04/08 0100 88 19 90/51 67 94 04/08 0030 81 21 95/71 80 92 04/07 2330 79 22 108/70 85 95 04/07 2300 97.6 04/07 2300 73 24 112/61 79 94 04/07 2230 73 25 118/58 83 94 04/07 2226 73 27 126/53 77 94 04/07 2147 99 24 126/78 94 96 04/07 2100 114 27 113/69 81 96 04/07 2030 113 24 127/73 89 96 04/07 2000 100 22 119/71 89 92 04/07 1939 96 Room air 21 04/07 1930 100 28 114/80 92 95 04/07 1900 97.4 Room air 04/07 1900 112 30 105/79 89 94 04/07 1600 96.8 04/07 1200 114 30 124/80 98 95 04/07 1130 116 25 95 04/07 1115 97 Room air 21 04/07 1030 117 27 96 04/07 1000 118 24 124/81 98 94 04/07 0900 119 28 117/79 95 96 04/07 0800 97.5 04/07 0800 118 28 109/69 84 94 04/07 0700 119 23 117/68 87 99 PATIENT WEIGHT: Weight (lb): 240Weight (oz): 8.07Weight (kg): 108.862 Medications:Active Meds + DC'd Last 24 HrsWound Care/Dressing Products ([facility]) 1 ROLDAN DAILY PRN TOPICAL (CKD) Linagliptin (TRADJENTA) 5 MG DAILY PO Metoprolol Tartrate (LOPRESSOR) 50 MG Q12HR PO Insulin Human Regular (HUMULIN R) 100 UNIT ASDIR IV (CKD) Sodium Chloride (SODIUM CHLORIDE 0.9%) 99 MLNicardipine HCl (CARDENE I.V.) 25 MG ASDIR IV (CKD) Sodium Chloride (SODIUM CHLORIDE 0.9%) 250 MLInsulin Human Lispro (HumaLOG) MEDIUM DOSE SLIDING SCALE AC HS SUBQ Polyethylene Glycol (MIRALAX) 17 GM DAILY PO Dextrose/Water (DEXTROSE 50% IN WATER) 12.5 GM ASDIR PRN IV Dextrose/Water (DEXTROSE 50% IN WATER) 25 GM ASDIR PRN IV Enoxaparin Sodium (LOVENOX) 40 MG QAM SUBQ Digoxin (LANOXIN) 0.25 MG DAILY PO (CKD) Amiodarone HCl (CORDARONE) 400 MG BID PO (CKD) Amiodarone HCl (Nexterone PREMIX DRIP) 200 ML ASDIR IV (CKD) Simethicone (MYLICON 80MG) 160 MG Q6H PRN PRN PO Polyethylene Glycol (MIRALAX) 17 GM BID PRN PO Docusate Sodium (COLACE) 100 MG BID PO Famotidine (PEPCID) 20 MG BID PO Ferrous Sulfate (FEOSOL) 325 MG BID PO Benzonatate (TESSALON PERLE) 100 MG TID PRN PRN PO Benzocaine/Menthol (Cepacol Sore Throat Lozenge) 1 EACH Q4H PRN PRN MM Clopidogrel Bisulfate (PLAVIX) 75 MG DAILY PO Calcium Gluconate (CALCIUM GLUCONATE 10%) 1,000 MG ASDIR PRN IV Sodium Chloride (SODIUM CHLORIDE 0.9%) 100 MLDobutamine HCl/Dextrose (DOBUTamine HCL IN DEXTROSE) 250 ML ASDIR PRN IV Epinephrine (EPINEPHrine/NS 4MG/250ML) 250 ML ASDIR PRN IV Hydrocodone Bitart/Acetaminophen (NORCO 5/325 TABLET (C-II)) 1 TAB Q4H PRN PRN PO Lidocaine HCl/Dextrose (LIDOCAINE HCL IN 5% DEXTROSE) 500 ML ASDIR PRN IV (CKD) Magnesium Sulfate (MAG SULFATE 2GM PREMIX) 50 ML ASDIR PRN IV Magnesium Sulfate/Dextrose (Magnesium Sulfate) 100 ML ASDIR PRN IV Meperidine HCl (DEMEROL (C-II)) 12.5 MG Q6H PRN PRN IM Morphine Sulfate (morphine SULFATE (C-II)) 2 MG Q15M PRN PRN IV Ondansetron HCl (ZOFRAN) 4 MG Q8H PRN PRN IV Potassium Chloride (Potassium Chloride) 50 ML ASDIR PRN IV Sodium Bicarbonate (SODIUM BICARBONATE) 4.2 GM ASDIR PRN IV (CKD) Aspirin (ASPIRIN EC) 81 MG DAILY PO Levothyroxine Sodium (Synthroid) 100 MCG DAILY PO Atorvastatin Calcium (LIPITOR) 80 MG BEDTIME PO Clotrimazole (LOTRIMIN) 1 ROLDAN BID TOPICAL (CKD) Oxybutynin Chloride (DITROPAN) 5 MG BEDTIME PO Tamsulosin HCl (FLOMAX) 0.4 MG BID PO Finasteride (PROSCAR) 5 MG DAILY PO Ondansetron HCl (ZOFRAN) 4 MG Q8H PRN PRN IV Physical ExamGeneral appearance: alert, awake, orientedHead/Eyes: atraumatic, normocephalicENT: moist mucosal membranesNeck: no JVDCardiovascular: CV assessment: irregularly irregularRespiratory: crackles, decreased breath sounds, no distressLower extremity: LE assessment: Trace edema.Musculoskeletal: full range of motionNeuro/HUMAN RESOURCES LEADER: alert, oriented X 3, CN II-XII intactSkin: dry, intactWound/incision: Location:Sternal Site condition: dressing clean dryUlcer: Location: buttock Stage: 2Psychiatry: normal affect, normal judgment/insight, normal mood ResultsFindings/Data:Laboratory Tests 04/07 04/07 04/07 04/07 2032 1632 1211 0730 Chemistry POC Glucose (60 - 99 MG/DL) 153 H 180 H 232 H 176 H Diagnosis, Assessment Plan Free Text DxA P NotesFree Text DxA P Notes:IMP: 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 Volume stable HLP DM AFIB HR improved. PLAN: Continue digoxin, amiodarone, metoprolol Ambulate IS Rehab evaluation. at 1025 RPT #:[id number] OF REPORTPRProgress [id number]:30:00Z.[id number] for patient [id number]:25:37 2021-04-07 [id number]:49:00 [facility] 16:49:00 [facility])Wound Care Consultation NoteREPORT#:[id number] REPORT STATUS: SignedDATE:04/07/21 TIME: 1649 PATIENT: COLE JEFFREY [place] UNIT #: [id number]#: [id number] [address]AN: [address] AGE: 81 SEX: M ATTEND: Aisha Lucas [facility] AUTHOR: January Mccollum MD * ALL edits or amendments must be made on the electronic/computer document * History of Present IllnessRequesting Clinician: Dr. Valdes for consult:pressure ulcerChief complaint:I had a bypassHPI:Patient is an 81-year-old male with a history significant for hypertension, hyperlipidemia, diabetes, CAD, PAD, who presented to the ED after an episode of acute angina. Patient reports that a few days prior to coming to the ED, he went to the store and had very severe pain in his left arm which lasted for a few minutes then he went to see his technology solutions architect at [facility] where he had several tests done, the tests were inconclusive and so he went to see another technology solutions architect where he had more tests done as well as the cardiac cath. Upon review of the cath, CABG was recommended and patient was transferred to with [facility]. He is status post CABG with Dr. Garvin. He is seen today for concern of a buttock ulcer. Patient is awake he is alert, history stated above as reported by patient. History Past HistoryPast medical history: coronary artery disease, diabetes mellitus, hyperlipidemia, hypertensionPast surgical history: Amputtion for DFU, CABGPast social history: marriedPast family history:Relation not specified for: heart disease Medications:Home Medications:Medication Dose/Rte/Freq Days Qty Entered Last Max Daily Dose Reviewed sitaGLIPtin (JANUVIA) 100 MG PO DAILY 03/08/13Strength: 100 MG TAB 1619 ASPIRIN 325 MG PO HS 11/20/10Strength: 325 MG TAB 1113[EQUATE ALLERGY RELEA] 10 MG PO DAILY 02/15/13Strength: 1614 Multivitamins W-Minerals 1 TAB PO DAILY 11/20/10 (Multivitamin And Minerals) 1111Strength: 1 TAB TABLET GLIMEPIRIDE (AMARYL) 4 MG PO DAILY 03/28/21rength: 4 MG TAB 0703 FLUTICASONE FUROATE 1 INH INH RTDAILY 03/28/21 (ARNUITY ELLIPTA) 0704Strength: 100 MCG BLST.W.DEV LEVOTHYROXINE 100 MCG PO DAILY 03/28/21 (SYNTHROID) 0706Strength: 100 MCG TAB HYDROCHLOROTHIAZIDE 25 MG PO DAILY 03/28/21 (HYDRODIURIL) 0707Strength: 25 MG TAB LOSARTAN (COZAAR) 100 MG PO DAILY 03/28/21rength: 100 MG TAB 0707 metFORMIN ER (FORTAMET) 1,000 MG PO C DIN 03/28/21rength: 1,000 MG 0709TAB.SR.24H FINASTERIDE (PROSCAR) 5 MG PO DAILY 03/28/21rength: 5 MG TAB 0710 OXYBUTYNIN (DITROPAN) 5 MG PO BEDTIME 03/28/21rength: 5 MG TAB 0712 TAMSULOSIN ER (FLOMAX) 0.4 MG PO BID 03/28/21rength: 0.4 MG CAP.SR.24H 0711 amLODIPine (NORVASC) 2.5 MG PO BEDTIME 03/28/21rength: 2.5 MG TAB 1348 amLODIPine (NORVASC) 5 MG PO DAILY 03/28/21rength: 5 MG TAB 1348 Current Hospital Medications:Autonomic Drugs Sig/Lainey Start time Last Medication Dose Route Stop Time Status Admin Dobutamine HCl/ 250 ML ASDIR PRN 03/31 1525 AC Dextrose IV 04/30 1506 (DOBUTamine HCL IN DEXTROSE) Epinephrine 250 ML ASDIR PRN 03/31 1525 AC (EPINEPHrine/NS 4MG/ IV 04/30 1506 250ML) Blood Formation,Coagulation Sig/Lainey Start time Last Medication Dose Route Stop Time Status Admin Enoxaparin Sodium 40 MG QAM 04/04 1020 AC 04/07 (LOVENOX) SUBQ 05/04 102 0923 Ferrous Sulfate 325 MG BID 04/01 2100 AC 04/07 (FEOSOL) PO 05/01 2101 09 Clopidogrel Bisulfate 75 MG DAILY 04/01 900 AC 04/07 (PLAVIX) PO 05/01 0901 0926 Cardiovascular Drugs Sig/Lainey Start time Last Medication Dose Route Stop Time Status Admin Metoprolol Tartrate 50 MG Q12HR 04/06 2100 AC 04/07 (LOPRESSOR) PO 05/06 2101 0926 Nicardipine HCl 25 MG ASDIR 04/06 1815 CKD (CARDENE I.V.) IV 05/06 1816 Sodium Chloride 250 ML (SODIUM CHLORIDE 0.9%) Digoxin 0.25 MG DAILY 04/04 0700 CKD 04/07 (LANOXIN) PO 05/04 0701 0924 Amiodarone HCl 400 MG BID 04/03 2100 CKD 04/07 (CORDARONE) PO 05/03 2101 0925 Amiodarone HCl 200 ML ASDIR 04/03 0040 CKD 04/04 (Nexterone PREMIX IV 05/03 0042024 DRIP) Lidocaine HCl/ 500 ML ASDIR PRN 03/31 1525 CKD Dextrose IV 04/30 1506 (LIDOCAINE HCL IN 5% DEXTROSE) Nicardipine HCl 25 MG ASDIR 03/31 1040 DC (CARDENE I.V.) IV 04/30 1041 Sodium Chloride 250 ML (SODIUM CHLORIDE 0.9%) Atorvastatin Calcium 80 MG BEDTIME 03/28 2100 AC 04/06 (LIPITOR) PO 04/27 Tamsulosin HCl 0.4 MG BID 03/28 2100 AC 04/07 (FLOMAX) PO 04/27 2101 0924 Central Nervous System Agents Sig/Lainey Start time Last Medication Dose Route Stop Time Status Admin Gabapentin 100 MG 2100 04/03 2100 DC 04/06 (NEURONTIN) PO 04/06 2101 204 Hydrocodone Bitart/ 1 TAB Q4H PRN PRN 03/31 1525 AC 04/07 Acetaminophen PO 04/30 1506 1223 (NORCO 5/325 TABLET (C-II)) Magnesium Sulfate/ 100 ML ASDIR PRN 03/31 1525 AC Dextrose IV 04/30 1506 (Magnesium Sulfate) Meperidine HCl 12.5 MG Q6H PRN PRN 03/31 1525 AC 04/01 (DEMEROL (C-II)) IM 04/30 1506 2255 Morphine Sulfate 2 MG Q15M PRN PRN 03/31 1525 AC 03/31 (morphine SULFATE (C- IV 04/30 1506 1556 II)) Aspirin 81 MG DAILY 03/29 0900 AC 04/07 (ASPIRIN EC) PO 04/28 0901 0926 Devices Sig/Lainey Start time Last Medication Dose Route Stop Time Status Admin Wound Care/Dressing 1 ROLDAN DAILY PRN 04/07 1115 CKD Products TOPICAL 05/07 1116 (MEDIHONEY) Electrolytic, Caloric, And Karine Sig/Lainey Start time Last Medication Dose Route Stop Time Status Admin Dextrose/Water 12.5 GM ASDIR PRN 04/06 0755 AC (DEXTROSE 50% IN IV 05/06 0756 WATER) Dextrose/Water 25 GM ASDIR PRN 04/06 0755 AC (DEXTROSE 50% IN IV 05/06 0756 WATER) Calcium Gluconate 1,000 MG ASDIR PRN 03/31 1525 AC 04/07 (CALCIUM GLUCONATE IV 04/30 1506 0915 10%) Sodium Chloride 100 ML (SODIUM CHLORIDE 0.9%) Potassium Chloride 50 ML ASDIR PRN 03/31 1525 AC 04/06 (Potassium Chloride) IV 04/30 1506 0837 Sodium Bicarbonate 4.2 GM ASDIR PRN 03/31 1310 CKD 03/31 (SODIUM BICARBONATE) IV 04/30 1311 1547 Eye, Ear, Nose And Throat (Een Sig/Lainey Start time Last Medication Dose Route Stop Time Status Admin Benzocaine/Menthol 1 EACH Q4H PRN PRN 04/01 0915 AC 04/01 (Cepacol Sore Throat MM 05/01 0916 1020 Lozenge) Gastrointestinal Drugs Sig/Lainey Start time Last Medication Dose Route Stop Time Status Admin Polyethylene Glycol 17 GM DAILY 04/06 0951 AC 04/07 (MIRALAX) PO 05/06 0952 0924 Simethicone 160 MG Q6H PRN PRN 04/02 1125 AC 04/02 (MYLICON 80MG) PO 05/02 112 2035 Polyethylene Glycol 17 GM BID PRN 04/02 0940 AC 04/06 (MIRALAX) PO 05/02 0941 0832 Docusate Sodium 100 MG BID 04/01 2100 AC 04/07 (COLACE) PO 05/01 2101 0925 Famotidine 20 MG BID 04/01 2100 AC 04/07 (PEPCID) PO 05/01 2101 0925 Ondansetron HCl 4 MG Q8H PRN PRN 03/31 1525 AC (ZOFRAN) IV 04/30 1506 Ondansetron HCl 4 MG Q8H PRN PRN 03/28 0815 AC (ZOFRAN) IV 04/27 0816 Hormones And Synthetic Substit Sig/Lainey Start time Last Medication Dose Route Stop Time Status Admin Linagliptin 5 MG DAILY 04/07 09 AC 04/07 (TRADJENTA) PO 05/07 0901 0925 Insulin Human Regular 100 UNIT ASDIR 04/06 1815 CKD (HUMULIN R) IV 05/06 1816 Sodium Chloride 99 ML (SODIUM CHLORIDE 0.9%) Insulin Human Lispro See Dose AC HS 04/06 1130 AC 04/07 (HumaLOG) Insts (1) SUBQ 05/06 1131 1638 Insulin Human Regular 100 UNIT ASDIR 03/31 1040 DC 03/31 (HUMULIN R) IV 04/30 1041 1537 Sodium Chloride 99 ML (SODIUM CHLORIDE 0.9%) Levothyroxine Sodium 100 MCG DAILY 03/29 09 AC 04/07 (Synthroid) PO 04/28 0901 0926 Miscellaneous Therapeutic Agen Sig/Lainey Start time Last Medication Dose Route Stop Time Status Admin Magnesium Sulfate 50 ML ASDIR PRN 03/31 1525 AC (MAG SULFATE 2GM IV 04/30 1506 PREMIX) Finasteride 5 MG DAILY 03/28 0900 AC 04/07 (PROSCAR) PO 04/27 0901 0925 Respiratory Tract Agents Sig/Lainey Start time Last Medication Dose Route Stop Time Status Admin Benzonatate 100 MG TID PRN PRN 04/01 1420 AC 04/02 (TESSALON PERLE) PO 05/01 1422035 Skin And Mucous Membrane Agent Sig/Lainey Start time Last Medication Dose Route Stop Time Status Admin Clotrimazole 1 ROLDAN BID 03/28 2100 CKD 04/07 (LOTRIMIN) TOPICAL 04/27 Smooth Muscle Relaxants Sig/Lainey Start time Last Medication Dose Route Stop Time Status Admin Oxybutynin Chloride 5 MG BEDTIME 03/28 2100 AC 04/06 (DITROPAN) PO 04/27 Dose Instructions:(1)Insulin Human Lispro (HumaLOG): MEDIUM DOSE SLIDING SCALE Allergies:Coded Allergies:Sulfa (Sulfonamide Antibiotics) (ITCHING 03/28/21)canagliflozin (From INVOKANA) (ITCHING 03/28/21) Review of SystemsConstitutional:Denies: generalized weakness, lethargy, malaise. Skin:Reports: ecchymosis. Denies: abrasion, bruising. Allergy/Immun:Denies: allergic reaction, itching. Eyes:Denies: discharge, visual loss/blurred. ENT:Denies: nasal congestion, sinus problem. Respiratory:Denies: COWAN (dyspnea on exertion), hemoptysis, non productive cough. Cardiovascular:Denies: chest pain, palpitations, parox nocturnal dyspnea. GI:Denies: constipation, diarrhea, dysphagia. :Denies: dysuria, flank pain, frequency, hematuria. Musculoskeletal: Extremity swelling: Reports: bilateral. Joint pain: Denies: bilateral. Joint swelling: Denies: bilateral. Heme:Reports: bruising. Endocrine:Denies: polydipsia, polyuria. Neuro:Denies: gait problem, lightheaded. Psych:Denies: agitation, anxiety. ObjectiveVS/I O:Last Documented: Result Date Time Pulse Ox 95 04/07 1200 B/P 124/80 04/07 1200 B/P Mean 98 04/07 1200 Pulse 114 04/07 1200 Resp 30 04/07 1200 FiO2 21 04/07 1115 O2 Delivery Room air 04/07 1115 Temp 36.4 04/07 0800 O2 Flow Rate 2 04/04 0946 24 hour I O ending at 0700: 04/07 0700 04/06 1900 Intake Total 300 200 Output Total 600 400 Balance -300 -200 Intake, Oral 300 200 Number 1 Bowel Movements Number Voids 1 Output, Urine 600 400 General appearance: agitatedHead/Eyes: atraumatic, clear cornea, EOMI, normocephalicENT: normal dentition, normal pharynx, normal sinusCardiovascular: regular rate rhythm, normal heart soundsRespiratory: clear to auscultation, no tenderness, aerating well, symmetric expansionAbdomen: soft, non-tender, no guarding, no reboundExtremities: moves all, edema legs with chronic skin changesNeuro/HUMAN RESOURCES LEADER: alert, oriented X 3, normal speech, no motor deficits Wound AssessmentWound Assessment 1: Type/cause: ?abscess vs. pressure Wound location: buttock (right) Tissue layers: slough, induration in the periwound Site condition: erythema, slough, raised Length (cm): 2 Width (cm): 4 Stage of pressure ulcer: stage III Lucy-wound: erythema Diagnosis, Assessment PlanProblem List/A P: 1. Peripheral artery disease 2. Diabetes 3. Obesity 4. Coronary artery disease 5. S/P CABG (coronary artery bypass graft) Free Text A P:Patient is an 82-year-old community dwelling male who has a history significant diabetes, CAD and is status post CABG patient seen today for evaluation of a wound on his buttock. The concern for an abscess versus a pressure ulcer is thewound margin appears raised and some periwound induration. Will initiate care with Medihoney gel which will be changed daily, this will be mixed with protective ointment. Initial care was performed and the demonstration of care for the nurse present at the bedside. Will reevaluate and make appropriate modifications to patient's wound care as needed. Patient remains very active, spending most of his time sitting. Discussed of weight shift every 15 minutes and Q to repositioning when laying down.Thank you for the consult and the opportunity to precipitate in patient's care will continue to follow alongside care team modifications recommendations to hiscare as needed. at 1706 RPT #:[id number] OF [id number]:49 :00Z.[id number] for patient [id number]:06:30 2021-04-07 [id number] [facility] 09:06:[address] [facility] [address] [address] PATIENT NAME: COLE JEFFREY ADMIT DATE: 03/28/21ACCOUNT NO: [id number] ROOM NO: Z.SI02 AGE: 81 REPORT TYPE: ELECTROCARDIOGRAM SEX: M ADMITTING PHYSICIAN:Aisha Lucas MD ATTENDING PHYSICIAN:Aisha Lucas MD Order:[id number] Reason : CAD/CAB/PAFIB Test Date/Time Stamp:TueApr 07 2021 09:06:29Blood Pressure : / mmHGVent. Rate : 119 BPM Atrial Rate : 119 BPM P-R Int : 148 ms QRS Dur : 154 ms QT Int : 380 ms P-R-T Axes : 000 -53 106 degrees QTc Int : 534 ms Sinus tachycardiaRight bundle branch blockLeft anterior fascicular block Bifascicular block Abnormal ECGWhen compared with ECG of 06-APR-2021 06:38,aberrant conduction is no longer presentCriteria for Inferior infarct are no longer presentT wave inversion less evident in Anterolateral leadsConfirmed by NONI MARQUEZ ([id number]) on 04/07/2021 5:28:01 PM Referred By: Aisha Lucas Confirmed by:NONI MARQUEZ at 1728 PATIENT NAME: COLE JEFFREY .[id number] for patient [id number]:28:22 2021-04-07 [id number]:59:00 [facility] 08:59:00 [facility] ([facility])Hospitalist Progress NoteREPORT#:[id number] REPORT STATUS: SignedDATE:04/07/21 TIME: 08 PATIENT: COLE JEFFREY UNIT #: [id number]#: [id number] ROOM/BED: MaryLY35-OAHN: 39 AGE: 81 SEX: M ATTEND: Aisha Lucas [facility] AUTHOR: Aarti Plummer MD R1 * ALL edits or amendments must be made on the electronic/computer document * Aarti Plummer 04/07/21 0859:SubjectiveChief Complaint:Pt continues to have sinus tachycardia. Was hugo to 50s overnight. No chest pain yesterday. Able to ambulate outside of room w/o chest pain, N/V, SOB. 1 medium BM yesterday after mag citrate. 01/20 pain this AM at incision sites. Review of SystemsConstitutional:Denies: chills, fatigue, fever, generalized weakness, lethargy. Skin:Reports: laceration (incisions for surgery). Denies: abrasion. Allergy/Immun:Denies: allergic reaction, anaphylaxis, hives, itching, rhinorrhea, sneezing, other. Eyes:Denies: redness, discharge, visual loss/blurred, itching, diplopia, eye pain, photophobia, swelling, other. ENT:Denies: ear drainage, ear ringing, earache, hearing loss, mouth pain, nasal congestion, nose bleeding, sinus problem, sore throat, throat pain, throat swelling, tongue pain, tongue swelling, toothache, voice change, other. Respiratory:Denies: COWAN (dyspnea on exertion), hemoptysis, non productive cough, parox nocturnal dyspnea, pleuritic pain, pneumonia, SOB. Cardiovascular:Reports: edema. Denies: chest pain, COWAN (dyspnea on exertion), palpitations. GI:Denies: abdominal pain, constipation, diarrhea, hematemesis, hematochezia, hiatal hernia, melena, nausea, vomiting. :Denies: dysuria, flank pain, frequency, hematuria. Neuro:Denies: confusion, dizziness, headache, lightheaded, seizure. Objective GeneralVS/I O:Vital Signs: Date Time Temp Pulse Resp B/P B/P Pulse O2 O2 Flow FiO2 Mean Ox Delivery Rate 04/07 0800 97.5 04/07 0630 116 29 04/07 0600 115 21 121/80 97 100 04/07 0530 116 99 04/07 0500 115 23 110/68 81 100 04/07 0430 116 18 100 04/07 0400 98.0 04/07 0400 115 17 140/74 98 100 04/07 0330 115 21 100 04/07 0319 115 18 100 04/07 0300 115 21 129/75 97 100 04/07 0230 115 21 100 04/07 0201 115 19 111/66 80 100 04/07 0200 115 18 100 04/07 0130 76 20 100 04/07 0102 71 20 119/62 85 100 04/07 0100 71 20 100 04/07 0030 66 18 104/52 75 100 04/07 0000 97.9 04/07 0000 66 18 114/59 83 100 04/06 2330 63 19 114/63 84 100 04/06 2300 60 20 119/68 89 100 04/06 2230 113 21 125/78 96 100 04/06 2200 114 24 127/80 97 04/06 2130 114 23 142/80 104 100 04/06 2100 115 27 134/82 102 98 04/06 2030 116 21 145/81 108 99 04/06 2000 97.8 04/06 2000 117 26 115/69 89 97 04/06 1930 116 24 121/72 91 04/06 1900 115 26 120/70 89 04/06 1829 115 32 87 04/06 1705 114 24 121/71 91 04/06 1615 97.3 04/06 1600 117 20 128/69 92 96 04/06 1530 116 29 115/66 85 98 04/06 1500 115 21 111/71 86 98 04/06 1430 115 25 121/75 93 98 04/06 1400 115 28 114/73 89 97 04/06 1330 97.7 04/06 1330 115 37 115/76 91 99 04/06 1300 116 27 126/80 98 100 04/06 1230 119 24 120/70 90 97 04/06 1200 119 25 113/69 86 97 04/06 1145 97.8 04/06 1130 119 22 124/76 95 99 04/06 1100 118 25 114/71 85 98 04/06 1000 120 24 125/71 93 97 04/06 0930 120 23 127/78 97 96 24 hour I O ending at 0700: 04/07 0700 04/06 1900 Intake Total 300 200 Output Total 600 400 Balance -300 -200 Intake, Oral 300 200 Number 1 Bowel Movements Number Voids 1 Output, Urine 600 400 PATIENT WEIGHT: Weight (lb): 240Weight (oz): 8.07Weight (kg): 108.862 Medications:Active Meds + DC'd Last 24 HrsLinagliptin (TRADJENTA) 5 MG DAILY PO Metoprolol Tartrate (LOPRESSOR) 50 MG Q12HR PO Insulin Human Regular (HUMULIN R) 100 UNIT ASDIR IV (CKD) Sodium Chloride (SODIUM CHLORIDE 0.9%) 99 MLNicardipine HCl (CARDENE I.V.) 25 MG ASDIR IV (CKD) Sodium Chloride (SODIUM CHLORIDE 0.9%) 250 MLInsulin Human Regular (INSULIN DRIP) 100 ML TITRATE IV (DC) Nicardipine HCl (CARDENE I.V.) 25 MG ASDIR IV (DC) Sodium Chloride (SODIUM CHLORIDE 0.9%) 250 MLInsulin Human Lispro (HumaLOG) MEDIUM DOSE SLIDING SCALE AC HS SUBQ Metoprolol Tartrate (LOPRESSOR) 25 MG ONCE ONE PO (DC) Metoprolol Tartrate (LOPRESSOR) 50 MG Q12HR PO (DC) Polyethylene Glycol (MIRALAX) 17 GM DAILY PO Magnesium Citrate (CITRATE OF MAGNESIA) 150 ML ONCE ONE PO (DC) Dextrose/Water (DEXTROSE 50% IN WATER) 12.5 GM ASDIR PRN IV Dextrose/Water (DEXTROSE 50% IN WATER) 25 GM ASDIR PRN IV Metoprolol Tartrate (LOPRESSOR) 25 MG Q12HR PO (DC) Enoxaparin Sodium (LOVENOX) 40 MG QAM SUBQ Digoxin (LANOXIN) 0.25 MG DAILY PO (CKD) Amiodarone HCl (CORDARONE) 400 MG BID PO (CKD) Gabapentin (NEURONTIN) 100 MG 2100 PO (DC) Amiodarone HCl (Nexterone PREMIX DRIP) 200 ML ASDIR IV (CKD) Simethicone (MYLICON 80MG) 160 MG Q6H PRN PRN PO Polyethylene Glycol (MIRALAX) 17 GM BID PRN PO Docusate Sodium (COLACE) 100 MG BID PO Famotidine (PEPCID) 20 MG BID PO Ferrous Sulfate (FEOSOL) 325 MG BID PO Benzonatate (TESSALON PERLE) 100 MG TID PRN PRN PO Benzocaine/Menthol (Cepacol Sore Throat Lozenge) 1 EACH Q4H PRN PRN MM Clopidogrel Bisulfate (PLAVIX) 75 MG DAILY PO Calcium Gluconate (CALCIUM GLUCONATE 10%) 1,000 MG ASDIR PRN IV Sodium Chloride (SODIUM CHLORIDE 0.9%) 100 MLDobutamine HCl/Dextrose (DOBUTamine HCL IN DEXTROSE) 250 ML ASDIR PRN IV Epinephrine (EPINEPHrine/NS 4MG/250ML) 250 ML ASDIR PRN IV Hydrocodone Bitart/Acetaminophen (NORCO 5/325 TABLET (C-II)) 1 TAB Q4H PRN PRN PO Lidocaine HCl/Dextrose (LIDOCAINE HCL IN 5% DEXTROSE) 500 ML ASDIR PRN IV (CKD) Magnesium Sulfate (MAG SULFATE 2GM PREMIX) 50 ML ASDIR PRN IV Magnesium Sulfate/Dextrose (Magnesium Sulfate) 100 ML ASDIR PRN IV Meperidine HCl (DEMEROL (C-II)) 12.5 MG Q6H PRN PRN IM Morphine Sulfate (morphine SULFATE (C-II)) 2 MG Q15M PRN PRN IV Ondansetron HCl (ZOFRAN) 4 MG Q8H PRN PRN IV Potassium Chloride (Potassium Chloride) 50 ML ASDIR PRN IV Sodium Bicarbonate (SODIUM BICARBONATE) 4.2 GM ASDIR PRN IV (CKD) Insulin Human Regular (HUMULIN R) 100 UNIT ASDIR IV (DC) Sodium Chloride (SODIUM CHLORIDE 0.9%) 99 MLNicardipine HCl (CARDENE I.V.) 25 MG ASDIR IV (DC) Sodium Chloride (SODIUM CHLORIDE 0.9%) 250 MLAspirin (ASPIRIN EC) 81 MG DAILY PO Levothyroxine Sodium (Synthroid) 100 MCG DAILY PO Atorvastatin Calcium (LIPITOR) 80 MG BEDTIME PO Clotrimazole (LOTRIMIN) 1 ROLDAN BID TOPICAL (CKD) Oxybutynin Chloride (DITROPAN) 5 MG BEDTIME PO Tamsulosin HCl (FLOMAX) 0.4 MG BID PO Finasteride (PROSCAR) 5 MG DAILY PO Ondansetron HCl (ZOFRAN) 4 MG Q8H PRN PRN IV Nutrition assessment:The data set between the solid lines has been imported from the dietitian's assessment. Any exceptions have been noted under Provider comments. BMI Calculated: 32.5Nutrition related diagnosis: ObeseNutrition diagnosis details: BMI 30-39.9Nutrition problem: KNOWLEDGE DEFICITNutrition etiology: CARDIAC HEALTH AND DIETNutrition signs and symptoms: MD CONSULT FOR HEART HEALTHY , DIET EDUCATIONNutrition prescription: WHEN MEDICALLY APPROPRIATE, ADVANCE DIET TOLERATED FROM DIABETIC CLEAR LIQUID TO DIABETIC FULL LIQUID DIABETIC TO DIABETIC/NUTRITIONALLY ADEQUATE DIET. RDN TO FOLLOW UP AND EDUCATE PT ON HEART HEALTHY DIET WHEN HIS VISITS REQUESTED.Dietitian name: Ava Benito, DIETAssessment completed: 03/31/21 Provider comments on imported dietitian assessment: Physical ExamGeneral appearance: alert, awake, oriented, no acute distress, pleasant, conversational, mental status normal, no respiratory distressHead/Eyes: atraumatic, normal conjunctiva/scleraENT: moist mucosal membranesNeck: full range of motion, supple/no meningismusCardiovascular: tachycardic, normal capillary refill, normal heart sounds, no murmurRespiratory: clear to auscultation, symmetric expansion, no distressAbdomen: non-tender, normal bowel sounds, soft, no distention, no guarding, no hernia, no mass/organomegaly, no reboundGenitourinary: no foleyExtremities: edema (2+ to knees, BLE), moves all, normal capillary refill, normal range of motionNeuro/HUMAN RESOURCES LEADER: alert, oriented X 3, CNII-XII intactSkin: dry, normal temperatureWound/incision: Location:INCISIONS IN CENTRAL CHEST and BLE 2/2 CABG, DRESSING C/D/IUlcer: Location: buttock Stage: 2Psychiatry: normal affect, normal judgment/insight ResultsFindings/Data:Laboratory Tests 04/07 04/07 04/06 04/06 04/06 0730 0510 2055 1652 1159 Chemistry Sodium (137 - 145 MMOL/L) 132 L Potassium (3.5 - 5.1 MMOL/L) 4.0 Chloride (98 - 107 MMOL/L) 101 Carbon Dioxide (22 - 30 MMOL/L) 28 Anion Gap (14 - 24 MMOL/L) 7 L BUN (9 - 20 MG/DL) 21 H Creatinine (0.66 - 1.25 MG/DL) 1.00 Glomerular Filtr Rate > 60 Glucose (74 - 106 MG/DL) 122 H POC Glucose (60 - 99 MG/DL) 176 H 193 H 141 H 172 H Calcium (8.4 - 10.2 MG/DL) 7.7 L Magnesium (1.6 - 2.3 MG/DL) 2.1 Laboratory Tests 04/07 0510 Hematology WBC (3.8 - 9.8 K/MM3) 10.2 H RBC (3.95 - 5.67 M/MM3) 2.91 L Hgb (12.4 - 16.7 G/DL) 8.3 L Hct (35.9 - 49.5 %) 25.1 L MCV (81.7 - 96.1 fL) 86 MCH (27.6 - 33.2 pg) 28.5 MCHC (32.9 - 35.5 %) 33.1 RDW (12.1 - 15.2 %) 14.9 Plt Count (129 - 368 K/MM3) 349 MPV (7.4 - 10.4 fl) 9.8 Neut % (Auto) (43 - 75 %) 60.4 Lymph % (Auto) (14 - 44 %) 17.4 Ocean % (Auto) (4 - 13 %) 12.6 Eos % (Auto) (0 - 6 %) 4.5 Baso % (Auto) (0 - 2 %) 0.5 Neut # (Auto) (2.0 - 7.6 K/mm3) 6.14 Lymph # (Auto) (1.0 - 3.8 K/mm3) 1.77 Ocean # (Auto) (0.1 - 0.8 K/mm3) 1.28 H Eos # (Auto) (0.0 - 0.2 K/mm3) 0.46 H Baso # (Auto) (0.0 - 0.2 K/mm3) 0.05 Immature Gran % (0.0 - 2.0 %) 4.6 H Nucleated RBC % (0 - 1.0 %) 0.0 Nucleated RBCs # (Man) (0.0 - 0.1 K/mm3) 0.00 Results: labs reviewed, vital signs stable Diagnosis, Assessment Plan Free Text DxA P NotesFree text DxA P notes:81 y/o M w/ PMH HTN, HLD, 90 pack-year smoking hx, DM2, CAD, PAD, frequent SVT/PVC, neuropathy who presented after anginal symptoms. Multi-vessel CAD on cath. S/p CABG 03/31. #s/p CABG#CAD w/ multivessel disease#PAD#HLD #sinus tachycardia BLE edema on exam. Incisions C/D/I. Bradycardic to 50s overnight. Latest EKG w/ sinus tach/PACs. Tachycardia improved, able to ambulate w/o dyspnea/chest pain. - cont metoprolol tartrate, digoxin, amiodarone. Metoprolol Tartrate 50 BID increased yesterday- ASA, atorvastatin, plavix- cardiology, cardiovascular surgery following - monitor HR #HTN BP controlled- on metoprolol #DM2BGs controlled- MDSSI. on home linagliptin. - gabapentin #Hypothyroid - home levothyroxine #BPH- cont home tamsulosin, finasteride, oxybutinin #Anemia- ferrous sulfate #Stage 2 buttock ulcer- physician wound care consult - [facility] #Bowel regimen Had medium BM yesterday after mag citrate x1- daily miralax Code: FULLDVT: Lovenox GI ppx: famotidineDiet: diabetic diet Discharge: IPR Quality: Gen Med Crit Care VTE ProphylaxisVTE prophylaxis initiated: yes (lovenox) Current MedicationsCurrent medication review:I attest that the foregoing medication list in the medical record is true, accurate, and complete to the best of my knowledge. Advanced Care Plan 65 or OlderDiscussed with: patientDiscussion included: code status (full code) Aisha Lucas 04/07/21 1457:Attestations Teaching Physician AttestationF/U visit w/ resident:I saw the patient with the resident and . . . agree with the resident's findings and plan. OVERALL STABLE. CONT CURRENT RX. CONT IS AND AMBULATION.DC TO REHAB WHEN CLEARED [facility] at 1404 at 1457 RPT #:[id number] OF REPORTPRProgress [id number]:[id number] for patient [id number]:04:43 2021-04-07 [id number]:02:00 [facility]CAWU 07:02:00 [facility] ([facility])Cardiology Progress NoteREPORT#:[id number] REPORT STATUS: SignedDATE:04/07/21 TIME: 701 PATIENT: COLE JEFFREY [place] UNIT #: [id number]#: [id number] [address] AGE: 81 SEX: M ATTEND: A[facility] AUTHOR: Ruiz Bhatti MD * ALL edits or amendments must be made on the electronic/computer document * SubjectiveChief Complaint:CADPatient reports:No: chest pain, palpitations, shortness of breath. Objective GeneralVS/I O:24 hour I O ending at 0700: 04/07 0700 04/06 1900 Intake Total 120 200 Output Total 300 400 Balance -180 -200 Intake, Oral 120 200 Number 1 Bowel Movements Number Voids 1 Output, Urine 300 400 Vital Signs: Date Time Temp Pulse Resp B/P B/P Pulse O2 O2 Flow FiO2 Mean Ox Delivery Rate 04/07 0400 98.0 04/07 0319 115 18 100 04/07 0300 115 21 129/75 97 100 04/07 0230 115 21 100 04/07 0201 115 19 111/66 80 100 04/07 0200 115 18 100 04/07 0130 76 20 100 04/07 0102 71 20 119/62 85 100 04/07 0100 71 20 100 04/07 0030 66 18 104/52 75 100 04/07 0000 97.9 04/07 0000 66 18 114/59 83 100 04/06 2330 63 19 114/63 84 100 04/06 2300 60 20 119/68 89 100 04/06 2230 113 21 125/78 96 100 04/06 2200 114 24 127/80 97 04/06 2130 114 23 142/80 104 100 04/06 2100 115 27 134/82 102 98 04/06 2030 116 21 145/81 108 99 04/06 2000 97.8 04/06 2000 117 26 115/69 89 97 04/06 1930 116 24 121/72 91 04/06 1900 115 26 120/70 89 04/06 1829 115 32 87 04/06 1705 114 24 121/71 91 04/06 1615 97.3 04/06 1600 117 20 128/69 92 96 04/06 1530 116 29 115/66 85 98 04/06 1500 115 21 111/71 86 98 04/06 1430 115 25 121/75 93 98 04/06 1400 115 28 114/73 89 97 04/06 1330 97.7 04/06 1330 115 37 115/76 91 99 04/06 1300 116 27 126/80 98 100 04/06 1230 119 24 120/70 90 97 04/06 1200 119 25 113/69 86 97 04/06 1145 97.8 04/06 1130 119 22 124/76 95 99 04/06 1100 118 25 114/71 85 98 04/06 1000 120 24 125/71 93 97 04/06 0930 120 23 127/78 97 96 04/06 0903 148/84 108 04/06 0832 120 23 97 04/06 0830 120 24 145/84 107 98 04/06 0800 120 23 155/89 116 99 04/06 0730 119 23 134/79 100 99 04/06 0724 97.5 PATIENT WEIGHT: Weight (lb): 240Weight (oz): 8.07Weight (kg): 108.862 Medications:Active Meds + DC'd Last 24 HrsLinagliptin (TRADJENTA) 5 MG DAILY PO Metoprolol Tartrate (LOPRESSOR) 50 MG Q12HR PO Insulin Human Regular (HUMULIN R) 100 UNIT ASDIR IV (CKD) Sodium Chloride (SODIUM CHLORIDE 0.9%) 99 MLNicardipine HCl (CARDENE I.V.) 25 MG ASDIR IV (CKD) Sodium Chloride (SODIUM CHLORIDE 0.9%) 250 MLInsulin Human Regular (INSULIN DRIP) 100 ML TITRATE IV (DC) Nicardipine HCl (CARDENE I.V.) 25 MG ASDIR IV (DC) Sodium Chloride (SODIUM CHLORIDE 0.9%) 250 MLInsulin Human Lispro (HumaLOG) MEDIUM DOSE SLIDING SCALE AC HS SUBQ Metoprolol Tartrate (LOPRESSOR) 25 MG ONCE ONE PO (DC) Metoprolol Tartrate (LOPRESSOR) 50 MG Q12HR PO (DC) Polyethylene Glycol (MIRALAX) 17 GM DAILY PO Magnesium Citrate (CITRATE OF MAGNESIA) 150 ML ONCE ONE PO (DC) Dextrose/Water (DEXTROSE 50% IN WATER) 12.5 GM ASDIR PRN IV Dextrose/Water (DEXTROSE 50% IN WATER) 25 GM ASDIR PRN IV Metoprolol Tartrate (LOPRESSOR) 25 MG Q12HR PO (DC) Enoxaparin Sodium (LOVENOX) 40 MG QAM SUBQ Digoxin (LANOXIN) 0.25 MG DAILY PO (CKD) Amiodarone HCl (CORDARONE) 400 MG BID PO (CKD) Gabapentin (NEURONTIN) 100 MG 2100 PO (DC) Amiodarone HCl (Nexterone PREMIX DRIP) 200 ML ASDIR IV (CKD) Simethicone (MYLICON 80MG) 160 MG Q6H PRN PRN PO Polyethylene Glycol (MIRALAX) 17 GM BID PRN PO Docusate Sodium (COLACE) 100 MG BID PO Famotidine (PEPCID) 20 MG BID PO Ferrous Sulfate (FEOSOL) 325 MG BID PO Insulin Human Lispro (HumaLOG) LOW DOSE SLIDING SCALE AC HS SUBQ (DC) Benzonatate (TESSALON PERLE) 100 MG TID PRN PRN PO Benzocaine/Menthol (Cepacol Sore Throat Lozenge) 1 EACH Q4H PRN PRN MM Clopidogrel Bisulfate (PLAVIX) 75 MG DAILY PO Calcium Gluconate (CALCIUM GLUCONATE 10%) 1,000 MG ASDIR PRN IV Sodium Chloride (SODIUM CHLORIDE 0.9%) 100 MLDextrose/Water (DEXTROSE 50% IN WATER) 12.5 GM ASDIR PRN IV (DC) Dextrose/Water (DEXTROSE 50% IN WATER) 25 GM ASDIR PRN IV (DC) Dobutamine HCl/Dextrose (DOBUTamine HCL IN DEXTROSE) 250 ML ASDIR PRN IV Epinephrine (EPINEPHrine/NS 4MG/250ML) 250 ML ASDIR PRN IV Hydrocodone Bitart/Acetaminophen (NORCO 5/325 TABLET (C-II)) 1 TAB Q4H PRN PRN PO Lidocaine HCl/Dextrose (LIDOCAINE HCL IN 5% DEXTROSE) 500 ML ASDIR PRN IV (CKD) Magnesium Sulfate (MAG SULFATE 2GM PREMIX) 50 ML ASDIR PRN IV Magnesium Sulfate/Dextrose (Magnesium Sulfate) 100 ML ASDIR PRN IV Meperidine HCl (DEMEROL (C-II)) 12.5 MG Q6H PRN PRN IM Morphine Sulfate (morphine SULFATE (C-II)) 2 MG Q15M PRN PRN IV Ondansetron HCl (ZOFRAN) 4 MG Q8H PRN PRN IV Potassium Chloride (Potassium Chloride) 50 ML ASDIR PRN IV Sodium Bicarbonate (SODIUM BICARBONATE) 4.2 GM ASDIR PRN IV (CKD) Dextrose/Water (DEXTROSE 50% IN WATER) 12.5 GM ASDIR PRN IV (DC) Dextrose/Water (DEXTROSE 50% IN WATER) 25 GM ASDIR PRN IV (DC) Insulin Human Regular (HUMULIN R) 100 UNIT ASDIR IV (DC) Sodium Chloride (SODIUM CHLORIDE 0.9%) 99 MLNicardipine HCl (CARDENE I.V.) 25 MG ASDIR IV (DC) Sodium Chloride (SODIUM CHLORIDE 0.9%) 250 MLAspirin (ASPIRIN EC) 81 MG DAILY PO Levothyroxine Sodium (Synthroid) 100 MCG DAILY PO Atorvastatin Calcium (LIPITOR) 80 MG BEDTIME PO Clotrimazole (LOTRIMIN) 1 ROLDAN BID TOPICAL (CKD) Oxybutynin Chloride (DITROPAN) 5 MG BEDTIME PO Tamsulosin HCl (FLOMAX) 0.4 MG BID PO Finasteride (PROSCAR) 5 MG DAILY PO Ondansetron HCl (ZOFRAN) 4 MG Q8H PRN PRN IV Physical ExamGeneral appearance: alert, awake, orientedHead/Eyes: atraumatic, normocephalicENT: moist mucosal membranesNeck: no JVDCardiovascular: CV assessment: irregularly irregularRespiratory: crackles, decreased breath sounds, no distressLower extremity: LE assessment: Trace edema.Musculoskeletal: full range of motionNeuro/HUMAN RESOURCES LEADER: alert, oriented X 3, CN II-XII intactSkin: dry, intactWound/incision: Location:Sternal Site condition: dressing clean dryPsychiatry: normal affect, normal judgment/insight, normal mood ResultsFindings/Data:Laboratory Tests 04/07 04/06 04/06 04/06 04/06 0510 2055 1652 1159 0714 Chemistry Sodium (137 - 145 MMOL/L) 132 L Potassium (3.5 - 5.1 MMOL/L) 4.0 Chloride (98 - 107 MMOL/L) 101 Carbon Dioxide (22 - 30 MMOL/L) 28 Anion Gap (14 - 24 MMOL/L) 7 L BUN (9 - 20 MG/DL) 21 H Creatinine (0.66 - 1.25 MG/DL) 1.00 Glomerular Filtr Rate > 60 Glucose (74 - 106 MG/DL) 122 H POC Glucose (60 - 99 MG/DL) 193 H 141 H 172 H 169 H Calcium (8.4 - 10.2 MG/DL) 7.7 L Magnesium (1.6 - 2.3 MG/DL) 2.1 Laboratory Tests 04/07 0510 Hematology WBC (3.8 - 9.8 K/MM3) 10.2 H RBC (3.95 - 5.67 M/MM3) 2.91 L Hgb (12.4 - 16.7 G/DL) 8.3 L Hct (35.9 - 49.5 %) 25.1 L MCV (81.7 - 96.1 fL) 86 MCH (27.6 - 33.2 pg) 28.5 MCHC (32.9 - 35.5 %) 33.1 RDW (12.1 - 15.2 %) 14.9 Plt Count (129 - 368 K/MM3) 349 MPV (7.4 - 10.4 fl) 9.8 Neut % (Auto) (43 - 75 %) 60.4 Lymph % (Auto) (14 - 44 %) 17.4 Ocean % (Auto) (4 - 13 %) 12.6 Eos % (Auto) (0 - 6 %) 4.5 Baso % (Auto) (0 - 2 %) 0.5 Neut # (Auto) (2.0 - 7.6 K/mm3) 6.14 Lymph # (Auto) (1.0 - 3.8 K/mm3) 1.77 Ocean # (Auto) (0.1 - 0.8 K/mm3) 1.28 H Eos # (Auto) (0.0 - 0.2 K/mm3) 0.46 H Baso # (Auto) (0.0 - 0.2 K/mm3) 0.05 Immature Gran % (0.0 - 2.0 %) 4.6 H Nucleated RBC % (0 - 1.0 %) 0.0 Nucleated RBCs # (Man) (0.0 - 0.1 K/mm3) 0.00 Laboratory Tests 04/07 0510 Chemistry Magnesium (1.6 - 2.3 MG/DL) 2.1 Diagnosis, Assessment Plan Free Text DxA P NotesFree Text DxA P Notes:IMP: 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 Volume stable HLP DM AFIB with RVR PLAN: Continue digoxin, amiodarone, metoprolol Ambulate IS at 1024 RPT #:[id number] OF REPORTPRProgress [id number] for patient [id number]:25:16 2021-04-06 [id number]:55:00 [facility] ([facility])Cardiology Progress NoteREPORT#:[id number] REPORT STATUS: SignedDATE:04/06/21 TIME: 1055 PATIENT: COLE JEFFREY UNIT #: [id number]#: [id number] [facility] AGE: 81 SEX: M ATTEND: Aisha Lucas [facility] AUTHOR: Ruiz Bhatti MD * ALL edits or amendments must be made on the electronic/computer document * SubjectiveChief Complaint:CADPatient reports:No: chest pain, palpitations, shortness of breath. Objective GeneralVS/I O:24 hour I O ending at 0700: 04/06 0700 04/05 1900 Intake Total 1200.00 Output Total 900 650 Balance -900 550.00 Intake, IV 200.00 Intake, Oral 1000 Number Voids 5 Output, Urine 900 650 Vital Signs: Date Time Temp Pulse Resp B/P B/P Pulse O2 O2 Flow FiO2 Mean Ox Delivery Rate 04/06 1000 120 24 125/71 93 97 04/06 0930 120 23 127/78 97 96 04/06 0903 148/84 108 04/06 0832 120 23 97 04/06 0830 120 24 145/84 107 98 04/06 0800 120 23 155/89 116 99 04/06 0730 119 23 134/79 100 99 04/06 0724 97.5 04/06 0700 118 14 132/83 103 98 04/06 0648 118 24 130/81 100 99 04/06 0530 115 22 155/86 113 04/06 0430 114 36 153/79 108 93 04/06 0400 115 23 109/70 85 97 04/06 0330 115 20 115/72 89 97 04/06 0300 97.7 04/06 0300 115 22 119/70 90 97 04/06 0230 115 112/65 80 98 04/06 0200 115 115/55 79 97 04/06 0130 115 98/60 73 96 04/06 0100 115 107/68 83 99 04/06 0030 115 101/57 72 97 04/06 0000 114 116/62 83 97 04/05 2300 97.8 04/05 2300 114 22 117/67 87 98 04/05 2230 113 24 120/72 90 98 04/05 2200 114 21 128/82 101 98 04/05 2130 114 19 153/84 112 04/05 2030 116 25 139/83 106 98 04/05 2000 116 10 138/81 102 100 04/05 1930 115 22 147/82 106 97 04/05 1900 97.7 Room air 04/05 1900 115 24 139/79 102 100 04/05 1830 115 16 140/85 106 96 04/05 1730 114 31 139/83 105 100 04/05 1700 114 25 134/81 102 99 04/05 1630 113 23 131/79 100 100 04/05 1600 98.2 04/05 1600 111 33 123/73 93 04/05 1530 113 24 128/78 98 99 04/05 1500 111 27 137/73 98 97 04/05 1430 111 23 135/74 97 04/05 1330 113 23 128/81 99 99 04/05 1300 112 23 139/85 107 99 04/05 1230 112 24 125/76 96 98 04/05 1200 98.4 04/05 1200 111 26 134/79 101 98 04/05 1130 110 25 135/80 102 99 04/05 1100 112 24 129/76 94 97 PATIENT WEIGHT: Weight (lb): 240Weight (oz): 8.07Weight (kg): 108.862 Medications:Active Meds + DC'd Last 24 HrsInsulin Human Lispro (HumaLOG) MEDIUM DOSE SLIDING SCALE AC HS SUBQ Polyethylene Glycol (MIRALAX) 17 GM DAILY PO Magnesium Citrate (CITRATE OF MAGNESIA) 150 ML ONCE ONE PO (DC) Dextrose/Water (DEXTROSE 50% IN WATER) 12.5 GM ASDIR PRN IV Dextrose/Water (DEXTROSE 50% IN WATER) 25 GM ASDIR PRN IV Metoprolol Tartrate (LOPRESSOR) 25 MG Q12HR PO Enoxaparin Sodium (LOVENOX) 40 MG QAM SUBQ Digoxin (LANOXIN) 0.25 MG DAILY PO (CKD) Amiodarone HCl (CORDARONE) 400 MG BID PO (CKD) Gabapentin (NEURONTIN) 100 MG 2100 PO Amiodarone HCl (Nexterone PREMIX DRIP) 200 ML ASDIR IV (CKD) Simethicone (MYLICON 80MG) 160 MG Q6H PRN PRN PO Polyethylene Glycol (MIRALAX) 17 GM BID PRN PO Docusate Sodium (COLACE) 100 MG BID PO Famotidine (PEPCID) 20 MG BID PO Ferrous Sulfate (FEOSOL) 325 MG BID PO Insulin Human Lispro (HumaLOG) LOW DOSE SLIDING SCALE AC HS SUBQ (DC) Benzonatate (TESSALON PERLE) 100 MG TID PRN PRN PO Benzocaine/Menthol (Cepacol Sore Throat Lozenge) 1 EACH Q4H PRN PRN MM Clopidogrel Bisulfate (PLAVIX) 75 MG DAILY PO Calcium Gluconate (CALCIUM GLUCONATE 10%) 1,000 MG ASDIR PRN IV Sodium Chloride (SODIUM CHLORIDE 0.9%) 100 MLDextrose/Water (DEXTROSE 50% IN WATER) 12.5 GM ASDIR PRN IV (DC) Dextrose/Water (DEXTROSE 50% IN WATER) 25 GM ASDIR PRN IV (DC) Dobutamine HCl/Dextrose (DOBUTamine HCL IN DEXTROSE) 250 ML ASDIR PRN IV Epinephrine (EPINEPHrine/NS 4MG/250ML) 250 ML ASDIR PRN IV Hydrocodone Bitart/Acetaminophen (NORCO 5/325 TABLET (C-II)) 1 TAB Q4H PRN PRN PO Lidocaine HCl/Dextrose (LIDOCAINE HCL IN 5% DEXTROSE) 500 ML ASDIR PRN IV (CKD) Magnesium Sulfate (MAG SULFATE 2GM PREMIX) 50 ML ASDIR PRN IV Magnesium Sulfate/Dextrose (Magnesium Sulfate) 100 ML ASDIR PRN IV Meperidine HCl (DEMEROL (C-II)) 12.5 MG Q6H PRN PRN IM Morphine Sulfate (morphine SULFATE (C-II)) 2 MG Q15M PRN PRN IV Ondansetron HCl (ZOFRAN) 4 MG Q8H PRN PRN IV Potassium Chloride (Potassium Chloride) 50 ML ASDIR PRN IV Sodium Bicarbonate (SODIUM BICARBONATE) 4.2 GM ASDIR PRN IV (CKD) Dextrose/Water (DEXTROSE 50% IN WATER) 12.5 GM ASDIR PRN IV (DC) Dextrose/Water (DEXTROSE 50% IN WATER) 25 GM ASDIR PRN IV (DC) Insulin Human Regular (HUMULIN R) 100 UNIT ASDIR IV (CKD) Sodium Chloride (SODIUM CHLORIDE 0.9%) 99 MLNicardipine HCl (CARDENE I.V.) 25 MG ASDIR IV (CKD) Sodium Chloride (SODIUM CHLORIDE 0.9%) 250 MLAspirin (ASPIRIN EC) 81 MG DAILY PO Levothyroxine Sodium (Synthroid) 100 MCG DAILY PO Atorvastatin Calcium (LIPITOR) 80 MG BEDTIME PO Clotrimazole (LOTRIMIN) 1 ROLDAN BID TOPICAL (CKD) Oxybutynin Chloride (DITROPAN) 5 MG BEDTIME PO Tamsulosin HCl (FLOMAX) 0.4 MG BID PO Finasteride (PROSCAR) 5 MG DAILY PO Ondansetron HCl (ZOFRAN) 4 MG Q8H PRN PRN IV Physical ExamGeneral appearance: alert, awake, orientedHead/Eyes: atraumatic, normocephalicENT: moist mucosal membranesNeck: no JVDCardiovascular: CV assessment: irregularly irregularRespiratory: crackles, decreased breath sounds, no distressLower extremity: LE assessment: Trace edema.Musculoskeletal: full range of motionNeuro/HUMAN RESOURCES LEADER: alert, oriented X 3, CN II-XII intactSkin: dry, intactWound/incision: Location:Sternal Site condition: dressing clean dryPsychiatry: normal affect, normal judgment/insight, normal mood ResultsFindings/Data:Laboratory Tests 04/06 04/06 04/05 04/05 04/05 0714 0420 2040 1728 1123 Chemistry Sodium (137 - 145 MMOL/L) 132 L Potassium (3.5 - 5.1 MMOL/L) 3.6 Chloride (98 - 107 MMOL/L) 100 Carbon Dioxide (22 - 30 MMOL/L) 28 Anion Gap (14 - 24 MMOL/L) 8 L BUN (9 - 20 MG/DL) 22 H Creatinine (0.66 - 1.25 MG/DL) 1.00 Glomerular Filtr Rate > 60 Glucose (74 - 106 MG/DL) 139 H POC Glucose (60 - 99 MG/DL) 169 H 165 H 133 H 264 H Calcium (8.4 - 10.2 MG/DL) 7.8 L Total Bilirubin (0.2 - 1.3 MG/DL) 1.1 AST (17 - 59 UNITS/L) 37 ALT (0 - 49 UNITS/L) 52 H Total Alk Phosphatase (38 - 126 UNITS/L) 56 Total Protein (6.2 - 7.6 G/DL) 5.3 L Albumin (3.5 - 5.0 G/DL) 2.8 L Laboratory Tests 04/06 420 Hematology WBC (3.8 - 9.8 K/MM3) 9.2 RBC (3.95 - 5.67 M/MM3) 2.93 L Hgb (12.4 - 16.7 G/DL) 8.4 L Hct (35.9 - 49.5 %) 25.1 L MCV (81.7 - 96.1 fL) 86 MCH (27.6 - 33.2 pg) 28.7 MCHC (32.9 - 35.5 %) 33.5 RDW (12.1 - 15.2 %) 14.9 Plt Count (129 - 368 K/MM3) 280 MPV (7.4 - 10.4 fl) 9.9 Neut % (Auto) (43 - 75 %) 57.5 Lymph % (Auto) (14 - 44 %) 17.5 Ocean % (Auto) (4 - 13 %) 13.8 H Eos % (Auto) (0 - 6 %) 6.1 H Baso % (Auto) (0 - 2 %) 0.5 Neut # (Auto) (2.0 - 7.6 K/mm3) 5.29 Lymph # (Auto) (1.0 - 3.8 K/mm3) 1.61 Ocean # (Auto) (0.1 - 0.8 K/mm3) 1.27 H Eos # (Auto) (0.0 - 0.2 K/mm3) 0.56 H Baso # (Auto) (0.0 - 0.2 K/mm3) 0.05 Immature Gran % (0.0 - 2.0 %) 4.6 H Nucleated RBC % (0 - 1.0 %) 0.2 Nucleated RBCs # (Man) (0.0 - 0.1 K/mm3) 0.02 Laboratory Tests 04/06 0420 Toxicology Digoxin (0.8 - 2.0 NG/ML) 0.7 L Diagnosis, Assessment Plan Free Text DxA P NotesFree Text DxA P Notes:IMP: 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 Volume stable HLP DM AFIB with RVR PLAN: Continue digoxin, amiodarone. Increase metoprolol Ambulate IS at 1237 RPT #:[id number] OF REPORTPRProgress [id number] 193AVAvailable for patient [id number]:38:13 2021-04-06 [id number]:41:00 [facility] 10:41:00 [facility] ([facility])Hospitalist Progress NoteREPORT#:[id number] REPORT STATUS: SignedDATE:04/06/21 TIME: 1041 PATIENT: COLE JEFFREY [place] UNIT #: [id number]#: [id number] [facility] AGE: 81 SEX: M ATTEND: Janes Lucasang [facility] AUTHOR: Aarti Plummer MD R1 * ALL edits or amendments must be made on the electronic/computer document * Aarti Plummer 04/06/21 1041:SubjectiveChief Complaint:Pt continues to have sinus tachycardia. Had intermitent shart chest pain on right side last night with back pain, resolved this AM. Still w/o BM x4 days. Review of SystemsConstitutional:Denies: chills, fatigue, fever, generalized weakness, lethargy, malaise. Skin:Reports: abrasion (surgery ). Denies: bruising, contusion, diaphoresis, ecchymosis, itching. Eyes:Denies: redness, discharge, visual loss/blurred, itching, diplopia, eye pain, photophobia. ENT:Denies: ear drainage, ear ringing, earache, hearing loss, mouth pain, nasal congestion, nose bleeding, sinus problem, sore throat, throat pain, throat swelling, tongue pain, tongue swelling, toothache, voice change, other. Respiratory:Denies: COWAN (dyspnea on exertion), productive cough (sputum), SOB. Cardiovascular:Reports: chest pain. Denies: COWAN (dyspnea on exertion), edema, palpitations, parox nocturnal dyspnea. GI:Reports: constipation. Denies: abdominal pain, anorexia, diarrhea, hematemesis,hematochezia, melena, nausea, vomiting. :Denies: dysuria, flank pain, frequency, hematuria. Musculoskeletal: Other musculoskeletal: Reports: lumbar pain. Heme:Denies: adenopathy, bleeding, bruising, petechiae. Neuro:Denies: dizziness, focal weakness, headache, lightheaded, numbness, seizure, weakness. Objective GeneralVS/I O:Vital Signs: Date Time Temp Pulse Resp B/P B/P Pulse O2 O2 Flow FiO2 Mean Ox Delivery Rate 04/06 1000 120 24 125/71 93 97 04/06 0930 120 23 127/78 97 96 04/06 0903 148/84 108 04/06 0832 120 23 97 04/06 0830 120 24 145/84 107 98 04/06 0800 120 23 155/89 116 99 04/06 0730 119 23 134/79 100 99 04/06 0724 97.5 04/06 0700 118 14 132/83 103 98 04/06 0648 118 24 130/81 100 99 04/06 0530 115 22 155/86 113 04/06 0430 114 36 153/79 108 93 04/06 0400 115 23 109/70 85 97 04/06 0330 115 20 115/72 89 97 04/06 0300 97.7 04/06 0300 115 22 119/70 90 97 04/06 0230 115 112/65 80 98 04/06 0200 115 115/55 79 97 04/06 0130 115 98/60 73 96 04/06 0100 115 107/68 83 99 04/06 0030 115 101/57 72 97 04/06 0000 114 116/62 83 97 04/05 2300 97.8 04/05 2300 114 22 117/67 87 98 04/05 2230 113 24 120/72 90 98 04/05 2200 114 21 128/82 101 98 04/05 2130 114 19 153/84 112 04/05 2030 116 25 139/83 106 98 04/05 2000 116 10 138/81 102 100 04/05 1930 115 22 147/82 106 97 04/05 1900 97.7 Room air 04/05 1900 115 24 139/79 102 100 04/05 1830 115 16 140/85 106 96 04/05 1730 114 31 139/83 105 100 04/05 1700 114 25 134/81 102 99 04/05 1630 113 23 131/79 100 100 04/05 1600 98.2 04/05 1600 111 33 123/73 93 04/05 1530 113 24 128/78 98 99 04/05 1500 111 27 137/73 98 97 04/05 1430 111 23 135/74 97 04/05 1330 113 23 128/81 99 99 04/05 1300 112 23 139/85 107 99 04/05 1230 112 24 125/76 96 98 04/05 1200 98.4 04/05 1200 111 26 134/79 101 98 04/05 1130 110 25 135/80 102 99 04/05 1100 112 24 129/76 94 97 24 hour I O ending at 0700: 04/06 0700 04/05 1900 Intake Total 1200.00 Output Total 900 650 Balance -900 550.00 Intake, IV 200.00 Intake, Oral 1000 Number Voids 5 Output, Urine 900 650 PATIENT WEIGHT: Weight (lb): 240Weight (oz): 8.07Weight (kg): 108.862 Medications:Active Meds + DC'd Last 24 HrsInsulin Human Lispro (HumaLOG) MEDIUM DOSE SLIDING SCALE AC HS SUBQ Polyethylene Glycol (MIRALAX) 17 GM DAILY PO Magnesium Citrate (CITRATE OF MAGNESIA) 150 ML ONCE ONE PO (DC) Dextrose/Water (DEXTROSE 50% IN WATER) 12.5 GM ASDIR PRN IV Dextrose/Water (DEXTROSE 50% IN WATER) 25 GM ASDIR PRN IV Metoprolol Tartrate (LOPRESSOR) 25 MG Q12HR PO Enoxaparin Sodium (LOVENOX) 40 MG QAM SUBQ Digoxin (LANOXIN) 0.25 MG DAILY PO (CKD) Amiodarone HCl (CORDARONE) 400 MG BID PO (CKD) Gabapentin (NEURONTIN) 100 MG 2100 PO Amiodarone HCl (Nexterone PREMIX DRIP) 200 ML ASDIR IV (CKD) Simethicone (MYLICON 80MG) 160 MG Q6H PRN PRN PO Polyethylene Glycol (MIRALAX) 17 GM BID PRN PO Docusate Sodium (COLACE) 100 MG BID PO Famotidine (PEPCID) 20 MG BID PO Ferrous Sulfate (FEOSOL) 325 MG BID PO Insulin Human Lispro (HumaLOG) LOW DOSE SLIDING SCALE AC HS SUBQ (DC) Benzonatate (TESSALON PERLE) 100 MG TID PRN PRN PO Benzocaine/Menthol (Cepacol Sore Throat Lozenge) 1 EACH Q4H PRN PRN MM Clopidogrel Bisulfate (PLAVIX) 75 MG DAILY PO Calcium Gluconate (CALCIUM GLUCONATE 10%) 1,000 MG ASDIR PRN IV Sodium Chloride (SODIUM CHLORIDE 0.9%) 100 MLDextrose/Water (DEXTROSE 50% IN WATER) 12.5 GM ASDIR PRN IV (DC) Dextrose/Water (DEXTROSE 50% IN WATER) 25 GM ASDIR PRN IV (DC) Dobutamine HCl/Dextrose (DOBUTamine HCL IN DEXTROSE) 250 ML ASDIR PRN IV Epinephrine (EPINEPHrine/NS 4MG/250ML) 250 ML ASDIR PRN IV Hydrocodone Bitart/Acetaminophen (NORCO 5/325 TABLET (C-II)) 1 TAB Q4H PRN PRN PO Lidocaine HCl/Dextrose (LIDOCAINE HCL IN 5% DEXTROSE) 500 ML ASDIR PRN IV (CKD) Magnesium Sulfate (MAG SULFATE 2GM PREMIX) 50 ML ASDIR PRN IV Magnesium Sulfate/Dextrose (Magnesium Sulfate) 100 ML ASDIR PRN IV Meperidine HCl (DEMEROL (C-II)) 12.5 MG Q6H PRN PRN IM Morphine Sulfate (morphine SULFATE (C-II)) 2 MG Q15M PRN PRN IV Ondansetron HCl (ZOFRAN) 4 MG Q8H PRN PRN IV Potassium Chloride (Potassium Chloride) 50 ML ASDIR PRN IV Sodium Bicarbonate (SODIUM BICARBONATE) 4.2 GM ASDIR PRN IV (CKD) Dextrose/Water (DEXTROSE 50% IN WATER) 12.5 GM ASDIR PRN IV (DC) Dextrose/Water (DEXTROSE 50% IN WATER) 25 GM ASDIR PRN IV (DC) Insulin Human Regular (HUMULIN R) 100 UNIT ASDIR IV (CKD) Sodium Chloride (SODIUM CHLORIDE 0.9%) 99 MLNicardipine HCl (CARDENE I.V.) 25 MG ASDIR IV (CKD) Sodium Chloride (SODIUM CHLORIDE 0.9%) 250 MLAspirin (ASPIRIN EC) 81 MG DAILY PO Levothyroxine Sodium (Synthroid) 100 MCG DAILY PO Atorvastatin Calcium (LIPITOR) 80 MG BEDTIME PO Clotrimazole (LOTRIMIN) 1 ROLDAN BID TOPICAL (CKD) Oxybutynin Chloride (DITROPAN) 5 MG BEDTIME PO Tamsulosin HCl (FLOMAX) 0.4 MG BID PO Finasteride (PROSCAR) 5 MG DAILY PO Ondansetron HCl (ZOFRAN) 4 MG Q8H PRN PRN IV Nutrition assessment:The data set between the solid lines has been imported from the dietitian's assessment. Any exceptions have been noted under Provider comments. BMI Calculated: 32.5Nutrition related diagnosis: ObeseNutrition diagnosis details: BMI 30-39.9Nutrition problem: KNOWLEDGE DEFICITNutrition etiology: CARDIAC HEALTH AND DIETNutrition signs and symptoms: MD CONSULT FOR HEART HEALTHY , DIET EDUCATIONNutrition prescription: WHEN MEDICALLY APPROPRIATE, ADVANCE DIET TOLERATED FROM DIABETIC CLEAR LIQUID TO DIABETIC FULL LIQUID DIABETIC TO DIABETIC/NUTRITIONALLY ADEQUATE DIET. RDN TO FOLLOW UP AND EDUCATE PT ON HEART HEALTHY DIET WHEN HIS VISITS REQUESTED.Dietitian name: Ava Benito, DIETAssessment completed: 03/31/21 Provider comments on imported dietitian assessment: Physical ExamGeneral appearance: alert, awake, oriented, no acute distress, pleasant, conversational, mental status normalHead/Eyes: atraumatic, normal conjunctiva/scleraENT: moist mucosal membranesNeck: full range of motion, supple/no meningismusCardiovascular: tachycardic, normal capillary refill, normal heart sounds, no murmurRespiratory: clear to auscultation, symmetric expansion, no distressAbdomen: non-tender, normal bowel sounds, soft, no distention, no guarding, no hernia, no mass/organomegaly, no reboundGenitourinary: no foleyExtremities: edema (1+ to knees, BLE), moves all, normal capillary refill, normal range of motionNeuro/HUMAN RESOURCES LEADER: alert, oriented X 3, CNII-XII intactSkin: dry, normal temperatureWound/incision: Location:INCISIONS IN CENTRAL CHEST and BLE 2/2 CABG, DRESSING CDI ResultsFindings/Data:Laboratory Tests 04/06 04/06 04/05 04/05 04/05 0714 0420 2040 1728 1123 Chemistry Sodium (137 - 145 MMOL/L) 132 L Potassium (3.5 - 5.1 MMOL/L) 3.6 Chloride (98 - 107 MMOL/L) 100 Carbon Dioxide (22 - 30 MMOL/L) 28 Anion Gap (14 - 24 MMOL/L) 8 L BUN (9 - 20 MG/DL) 22 H Creatinine (0.66 - 1.25 MG/DL) 1.00 Glomerular Filtr Rate > 60 Glucose (74 - 106 MG/DL) 139 H POC Glucose (60 - 99 MG/DL) 169 H 165 H 133 H 264 H Calcium (8.4 - 10.2 MG/DL) 7.8 L Total Bilirubin (0.2 - 1.3 MG/DL) 1.1 AST (17 - 59 UNITS/L) 37 ALT (0 - 49 UNITS/L) 52 H Total Alk Phosphatase (38 - 126 UNITS/L) 56 Total Protein (6.2 - 7.6 G/DL) 5.3 L Albumin (3.5 - 5.0 G/DL) 2.8 L Laboratory Tests 04/06 0420 Hematology WBC (3.8 - 9.8 K/MM3) 9.2 RBC (3.95 - 5.67 M/MM3) 2.93 L Hgb (12.4 - 16.7 G/DL) 8.4 L Hct (35.9 - 49.5 %) 25.1 L MCV (81.7 - 96.1 fL) 86 MCH (27.6 - 33.2 pg) 28.7 MCHC (32.9 - 35.5 %) 33.5 RDW (12.1 - 15.2 %) 14.9 Plt Count (129 - 368 K/MM3) 280 MPV (7.4 - 10.4 fl) 9.9 Neut % (Auto) (43 - 75 %) 57.5 Lymph % (Auto) (14 - 44 %) 17.5 Ocean % (Auto) (4 - 13 %) 13.8 H Eos % (Auto) (0 - 6 %) 6.1 H Baso % (Auto) (0 - 2 %) 0.5 Neut # (Auto) (2.0 - 7.6 K/mm3) 5.29 Lymph # (Auto) (1.0 - 3.8 K/mm3) 1.61 Ocean # (Auto) (0.1 - 0.8 K/mm3) 1.27 H Eos # (Auto) (0.0 - 0.2 K/mm3) 0.56 H Baso # (Auto) (0.0 - 0.2 K/mm3) 0.05 Immature Gran % (0.0 - 2.0 %) 4.6 H Nucleated RBC % (0 - 1.0 %) 0.2 Nucleated RBCs # (Man) (0.0 - 0.1 K/mm3) 0.02 Laboratory Tests 04/06 0420 Toxicology Digoxin (0.8 - 2.0 NG/ML) 0.7 L Results: labs reviewed Diagnosis, Assessment Plan Free Text DxA P NotesFree text DxA P notes:81 y/o M w/ PMH HTN, HLD, 90 pack-year smoking hx, DM2, CAD, PAD, frequent SVT/PVC, neuropathy who presented after anginal symptoms. Multi-vessel CAD on cath. S/p CABG 03/31. #s/p CABG#CAD w/ multivessel disease#PAD#HLD #sinus tachycardia BLE edema on exam. Incisions C/D/I- cont metoprolol tartrate, digoxin, amiodarone. Metoprolol, amiodarone increased 04/05. - ASA, atorvastatin - cardiology, cardiovascular surgery following - monitor HR #ConstipationNo BM x4 days.- daily miralax- mag citrate x1 today #HTN BP controlled- on metoprolol #DM2- LDSSI --> MDSSI. Re-start linagliptin. - gabapentin #Hypothyroid - levothyroxine #BPH- tamsulosin, finasteride, oxybutinin #Anemia- ferrous sulfate Code: FULLDVT: Lovenox GI ppx: famotidineDiet: diabetic diet Quality: Gen Med Crit Care VTE ProphylaxisVTE prophylaxis initiated: yes (lovenox) Current MedicationsCurrent medication review:I attest that the foregoing medication list in the medical record is true, accurate, and complete to the best of my knowledge. Advanced Care Plan 65 or OlderDiscussed with: patientDiscussion included: code status (full code) Aisha Lucas 04/06/21 1702:Attestations Teaching Physician AttestationF/U visit w/ resident:I saw the patient with the resident and . . . agree with the resident's findings and plan. at 1414 at 1703 RPT #:[id number] OF REPORTPRProgress [id number]:41:00Z.[id number] 183AVAvailable for patient [id number]:14:25 2021-04-06 [id number] [facility] 06:38:00 [address] [place] [id number] PATIENT NAME: COLE JEFFREY ADMIT DATE: 03/28/21ACCOUNT NO: [id number] ROOM NO: Z.SI02 AGE: 81 REPORT TYPE: ELECTROCARDIOGRAM SEX: M ADMITTING PHYSICIAN:Aisha Lucas MD ATTENDING PHYSICIAN:Aisha Lucas MD Order:[id number] Reason : CAD/AFib Test Date/Time Stamp:TueApr 06 2021 06:38:06Blood Pressure : / mmHGVent. Rate : 118 BPM Atrial Rate : 119 BPM P-R Int : 120 ms QRS Dur : 136 ms QT Int : 362 ms P-R-T Axes : 067 -56 113 degrees QTc Int : 507 ms Sinus tachycardia with premature atrial complexes with aberrant conductionLeft axis deviationRight bundle branch blockInferior infarct , age undeterminedT wave abnormality, consider lateral ischemiaAbnormal ECGWhen compared with ECG of 05-APR-2021 06:02,Sinus rhythm has replaced Atrial fibrillationQuestionable change in QRS durationConfirmed by NONI MARQUEZ ([id number]) on 04/06/2021 6:52:59 AM Referred By: Noni Marquez Confirmed by:NONI MARQUEZ at 0652 PATIENT NAME: COLE JEFFREY .[id number] for patient [id number]:53:24 2021-04-06 [id number] [facility] 06:38:[address] [address] PATIENT NAME: COLE JEFFREY ADMIT DATE: 03/28/21ACCOUNT NO: [id number] ROOM NO: Z.SI02 AGE: 81 REPORT TYPE: ELECTROCARDIOGRAM SEX: M ADMITTING PHYSICIAN:Aisha Lucas MD ATTENDING PHYSICIAN:Aisha Lucas MD Order:[id number] Reason : CAD/AFib Test Date/Time Stamp:TueApr 06 2021 06:38:06Blood Pressure : / mmHGVent. Rate : 118 BPM Atrial Rate : 119 BPM P-R Int : 120 ms QRS Dur : 136 ms QT Int : 362 ms P-R-T Axes : 067 -56 113 degrees QTc Int : 507 ms Sinus tachycardia with premature atrial complexes with aberrant conductionLeft axis deviationRight bundle branch blockInferior infarct , age undeterminedT wave abnormality, consider lateral ischemiaAbnormal ECGWhen compared with ECG of 05-APR-2021 06:02,Sinus rhythm has replaced Atrial fibrillationQuestionable change in QRS durationConfirmed by NONI MARQUEZ ([id number]) on 04/06/2021 4:15:09 PM Referred By: Noni Marquez Confirmed by:NONI MARQUEZ at 1615 PATIENT NAME: COLE JEFFREY .[id number] for patient [id number]:15:27 2021-04-05 [id number] [facility] 22:50:00 [address] [place] [address] PATIENT NAME: COLE JEFFREY ADMIT DATE: 03/28/21ACCOUNT NO: [id number] ROOM NO: Z.SI02 AGE: 81 REPORT TYPE: PROGRESS NOTE SEX: M ADMITTING PHYSICIAN:Radha Haas MD ATTENDING PHYSICIAN:Radha Haas MD DATE: 04/05/2021 CARDIAC SURGERY SERVICE The patient seen at bedside in the ICU. The patient currently is stable. Thepatient still at a rapid rhythm, on amiodarone and metoprolol. We haveincreased doses. The patient remained stable hemodynamically. Blood pressurebetter after taking IV calcium. Dictated By: Marcello Garvin MD WT: PN:Ximena.JAMES/JABARI/NTSDD: 04/05/2021 22:50:16DT: 04/05/2021 22:55:20Conf#: [id number]/DID#: [id number] Authenticated by Marcello Garvin MD On 04/13/2021 07:51:51 AM at 0751 PATIENT NAME: COLE JEFFREY [id number]:55:00Z.[id number] 43AVAvailable for patient [id number]:52:22 2021-04-05 [id number] [facility]:21:00 [address] [place] [address] PATIENT NAME: COLE JEFFREY ADMIT DATE: 03/28/21ACCOUNT NO: [id number] ROOM NO: Z.SI02 AGE: 81 REPORT TYPE: PROGRESS NOTE SEX: M ADMITTING PHYSICIAN:Radha Haas MD ATTENDING PHYSICIAN:Radha Haas MD DATE: 04/04/2021 CARDIAC SURGERY SERVICE The patient is seen at bedside in the ICU. The patient currently is stable. The patient still has tachycardia, evaluating, adjusting pressure based oncardiology orders for amiodarone drip oral and metoprolol. Otherwise, thepatient remained stable. Dictated By: Marcello Garvin MD WT: PN:NEFTALI/NTSDD: 04/05/2021 14:21:23DT: 04/05/2021 14:34:35Conf#: [id number]/DID#: [id number] Authenticated by Marcello Garvin MD On 04/13/2021 07:51:49 AM at 0751 PATIENT NAME: COLE JEFFREY [id number]:34:00Z.[id number] 65AVAvailable for patient [id number]:52:22 2021-04-05 [id number]:51:00 [facility] 08:51:00 [facility]Hospital[facility] Progress NoteREPORT#:[id number] REPORT STATUS: SignedDATE:04/05/21 TIME: 850 PATIENT: COLE JEFFREY UNIT #: [id number]#: [id number] [address]Q: [address] AGE: 81 SEX: M ATTEND: Aisha [facility] AUTHOR: Vidla Larry MD, MPH R1 * ALL edits or amendments must be made on the electronic/computer document * Vidal Larry 04/05/21 0851:SubjectiveChief Complaint:Pt feeling overall well. Continues to have sinus tachycardia. C/o ongoing chest pain and some mild cough. As per pt has not had a bowel movement in several daysdespite daily miralax. Review of SystemsConstitutional:Denies: chills, fatigue, fever, generalized weakness, lethargy, malaise, recent wt loss. Respiratory:Reports: productive cough (sputum). Denies: COWAN (dyspnea on exertion), hemoptysis, non productive cough, parox nocturnal dyspnea, pleurisy, pleuritic pain, pneumonia, SOB, wheezing. Cardiovascular:Reports: chest pain. Denies: COWAN (dyspnea on exertion), edema, orthopnea, palpitations, parox nocturnal dyspnea. GI:Reports: constipation. Denies: abdominal pain, anorexia, diarrhea, hematemesis,nausea, vomiting. All systems rev neg: except as marked Objective GeneralVS/I O:Vital Signs: Date Time Temp Pulse Resp B/P B/P Pulse O2 O2 Flow FiO2 Mean Ox Delivery Rate 04/05 0655 131 22 107/68 83 98 04/05 0600 128 22 117/73 88 97 04/05 0530 128 22 112/74 88 98 04/05 0500 126 23 104/69 82 96 04/05 0430 126 19 101/68 80 97 04/05 0400 128 18 100/64 74 97 04/05 0330 131 23 97/64 75 96 04/05 0300 98.0 04/05 0300 128 22 95/70 78 98 04/05 0230 126 23 103/69 80 96 04/05 0200 127 19 104/67 81 97 04/05 0143 128 19 108/69 82 97 04/04 2300 98.1 04/04 2221 134 24 119/71 85 97 04/04 2121 133 30 127/76 92 97 04/04 2021 135 25 131/73 85 97 04/04 1921 137 25 125/91 103 97 04/04 1911 97.7 04/04 1900 97.7 04/04 1821 133 28 115/72 86 96 04/04 1800 134 87 04/04 1745 134 24 93 04/04 1730 124 98 04/04 1721 127 14 115/59 78 97 04/04 1715 129 97 04/04 1700 128 23 98 04/04 1645 114 18 98 04/04 1630 119 98 04/04 1621 112 150/56 80 99 04/04 1615 128 20 98 04/04 1610 97.2 04/04 1600 120 19 85 04/04 1545 115 97 04/04 1530 124 21 97 04/04 1521 116 21 106/59 77 94 04/04 1515 114 21 96 04/04 1500 114 24 96 04/04 1445 114 97 04/04 1430 110 96 04/04 1421 109 25 99/78 85 97 04/04 1415 118 96 04/04 1400 119 20 96 04/04 1345 131 96 04/04 1330 137 20 94 04/04 1321 141 100/63 77 97 04/04 1315 141 98 04/04 1300 138 21 100 04/04 1230 141 100 04/04 1225 97.0 04/04 1221 141 128/76 93 100 04/04 1215 140 100 04/04 1200 142 24 99 04/04 1145 138 25 100 04/04 1130 146 99 04/04 1121 143 25 121/86 100 99 04/04 1115 142 15 100 04/04 1100 139 100 04/04 1045 145 99 04/04 1030 133 18 100 04/04 1021 142 122/76 92 100 04/04 1015 141 25 100 04/04 1000 140 100 04/04 0946 95 Nasal 2 28 cannula 04/04 0930 140 99 04/04 0924 135 136/68 82 99 04/04 0915 142 100 04/04 0900 138 100 24 hour I O ending at 0700: 04/04 1900 04/05 0700 Intake Total 997.10 483.70 Output Total 550 975 Balance 447.10 -491.30 Intake, IV 217.10 183.70 Intake, Oral 780 300 Number 0 Bowel Movements Output, Urine 550 975 PATIENT WEIGHT: Weight (lb): 240Weight (oz): 8.07Weight (kg): 108.862 Medications:Active Meds + DC'd Last 24 HrsMetoprolol Tartrate (LOPRESSOR) 25 MG Q12HR PO Lactulose (CHRONULAC) 30 GM ONCE ONE PO (DC) Metoprolol Tartrate (LOPRESSOR 5MG IJ) 5 MG NOW ONE IV (DC) Enoxaparin Sodium (LOVENOX) 40 MG QAM SUBQ Digoxin (LANOXIN) 0.25 MG DAILY PO (CKD) Amiodarone HCl (CORDARONE) 400 MG BID PO (CKD) Gabapentin (NEURONTIN) 100 MG 2100 PO Metoprolol Tartrate (LOPRESSOR) 12.5 MG Q12HR PO (DC) Amiodarone HCl (Nexterone PREMIX DRIP) 200 ML ASDIR IV (CKD) Simethicone (MYLICON 80MG) 160 MG Q6H PRN PRN PO Polyethylene Glycol (MIRALAX) 17 GM BID PRN PO Docusate Sodium (COLACE) 100 MG BID PO Famotidine (PEPCID) 20 MG BID PO Ferrous Sulfate (FEOSOL) 325 MG BID PO Insulin Human Lispro (HumaLOG) LOW DOSE SLIDING SCALE AC HS SUBQ Benzonatate (TESSALON PERLE) 100 MG TID PRN PRN PO Benzocaine/Menthol (Cepacol Sore Throat Lozenge) 1 EACH Q4H PRN PRN MM Clopidogrel Bisulfate (PLAVIX) 75 MG DAILY PO Mupirocin (BACTROBAN NASAL - ADULT ICU) 1 APPLIC BID NASAL Calcium Gluconate (CALCIUM GLUCONATE 10%) 1,000 MG ASDIR PRN IV Sodium Chloride (SODIUM CHLORIDE 0.9%) 100 MLDextrose/Water (DEXTROSE 50% IN WATER) 12.5 GM ASDIR PRN IV Dextrose/Water (DEXTROSE 50% IN WATER) 25 GM ASDIR PRN IV Dobutamine HCl/Dextrose (DOBUTamine HCL IN DEXTROSE) 250 ML ASDIR PRN IV Epinephrine (EPINEPHrine/NS 4MG/250ML) 250 ML ASDIR PRN IV Hydrocodone Bitart/Acetaminophen (NORCO 5/325 TABLET (C-II)) 1 TAB Q4H PRN PRN PO Lidocaine HCl/Dextrose (LIDOCAINE HCL IN 5% DEXTROSE) 500 ML ASDIR PRN IV (CKD) Magnesium Sulfate (MAG SULFATE 2GM PREMIX) 50 ML ASDIR PRN IV Magnesium Sulfate/Dextrose (Magnesium Sulfate) 100 ML ASDIR PRN IV Meperidine HCl (DEMEROL (C-II)) 12.5 MG Q6H PRN PRN IM Morphine Sulfate (morphine SULFATE (C-II)) 2 MG Q15M PRN PRN IV Ondansetron HCl (ZOFRAN) 4 MG Q8H PRN PRN IV Potassium Chloride (Potassium Chloride) 50 ML ASDIR PRN IV Sodium Bicarbonate (SODIUM BICARBONATE) 4.2 GM ASDIR PRN IV (CKD) Dextrose/Water (DEXTROSE 50% IN WATER) 12.5 GM ASDIR PRN IV Dextrose/Water (DEXTROSE 50% IN WATER) 25 GM ASDIR PRN IV Insulin Human Regular (HUMULIN R) 100 UNIT ASDIR IV (CKD) Sodium Chloride (SODIUM CHLORIDE 0.9%) 99 MLNicardipine HCl (CARDENE I.V.) 25 MG ASDIR IV (CKD) Sodium Chloride (SODIUM CHLORIDE 0.9%) 250 MLAspirin (ASPIRIN EC) 81 MG DAILY PO Levothyroxine Sodium (Synthroid) 100 MCG DAILY PO Atorvastatin Calcium (LIPITOR) 80 MG BEDTIME PO Clotrimazole (LOTRIMIN) 1 ROLDAN BID TOPICAL (CKD) Oxybutynin Chloride (DITROPAN) 5 MG BEDTIME PO Tamsulosin HCl (FLOMAX) 0.4 MG BID PO Finasteride (PROSCAR) 5 MG DAILY PO Ondansetron HCl (ZOFRAN) 4 MG Q8H PRN PRN IV Nutrition assessment:The data set between the solid lines has been imported from the dietitian's assessment. Any exceptions have been noted under Provider comments. BMI Calculated: 32.5Nutrition related diagnosis: ObeseNutrition diagnosis details: BMI 30-39.9Nutrition problem: KNOWLEDGE DEFICITNutrition etiology: CARDIAC HEALTH AND DIETNutrition signs and symptoms: MD CONSULT FOR HEART HEALTHY , DIET EDUCATIONNutrition prescription: WHEN MEDICALLY APPROPRIATE, ADVANCE DIET TOLERATED FROM DIABETIC CLEAR LIQUID TO DIABETIC FULL LIQUID DIABETIC TO DIABETIC/NUTRITIONALLY ADEQUATE DIET. RDN TO FOLLOW UP AND EDUCATE PT ON HEART HEALTHY DIET WHEN HIS VISITS REQUESTED.Dietitian name: Ava Benito, DIETAssessment completed: 03/31/21 Provider comments on imported dietitian assessment: Physical ExamGeneral appearance: alert, awake, oriented, no acute distress, pleasant, conversational, mental status normal, no respiratory distressHead/Eyes: atraumatic, normal conjunctiva/scleraENT: moist mucosal membranesNeck: full range of motion, supple/no meningismusCardiovascular: tachycardic, normal capillary refill, normal heart sounds, no murmurRespiratory: clear to auscultation, symmetric expansion, no distressAbdomen: non-tender, normal bowel sounds, soft, no distention, no guarding, no hernia, no mass/organomegaly, no reboundGenitourinary: no foleyExtremities: moves all, normal capillary refill, normal range of motion, no edemaNeuro/HUMAN RESOURCES LEADER: alert, oriented X 3, CNII-XII intactSkin: dry, normal temperatureWound/incision: Location: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, DRESSING CDI ResultsFindings/Data:Laboratory Tests 04/04 04/04 04/04 04/05 04/05 1128 1752 2113 0425 0425 Chemistry Sodium (137 - 145 MMOL/L) 130 L Potassium (3.5 - 5.1 MMOL/L) 3.7 Chloride (98 - 107 MMOL/L) 98 Carbon Dioxide (22 - 30 MMOL/L) 26 BUN (9 - 20 MG/DL) 26 H Creatinine (0.66 - 1.25 MG/DL) 1.00 Glomerular Filtr Rate > 60 Glucose (74 - 106 MG/DL) 148 H POC Glucose (60 - 99 MG/DL) 211 H 184 H 178 H Lactic Acid (0.7 - 2.1 MMOL/L) 0.9 Calcium (8.4 - 10.2 MG/DL) 7.5 L 04/05 0756 Chemistry POC Glucose (60 - 99 MG/DL) 188 H Laboratory Tests 04/05 0425 Hematology WBC (3.8 - 9.8 K/MM3) 9.4 RBC (3.95 - 5.67 M/MM3) 2.84 L Hgb (12.4 - 16.7 G/DL) 8.2 L Hct (35.9 - 49.5 %) 24.6 L MCV (81.7 - 96.1 fL) 87 MCH (27.6 - 33.2 pg) 28.9 MCHC (32.9 - 35.5 %) 33.3 RDW (12.1 - 15.2 %) 14.9 Plt Count (129 - 368 K/MM3) 229 MPV (7.4 - 10.4 fl) 10.4 Neut % (Auto) (43 - 75 %) 60.7 Lymph % (Auto) (14 - 44 %) 19.6 Ocean % (Auto) (4 - 13 %) 14.0 H Eos % (Auto) (0 - 6 %) 3.0 Baso % (Auto) (0 - 2 %) 0.5 Neut # (Auto) (2.0 - 7.6 K/mm3) 5.68 Lymph # (Auto) (1.0 - 3.8 K/mm3) 1.84 Ocean # (Auto) (0.1 - 0.8 K/mm3) 1.31 H Eos # (Auto) (0.0 - 0.2 K/mm3) 0.28 H Baso # (Auto) (0.0 - 0.2 K/mm3) 0.05 Immature Gran % (0.0 - 2.0 %) 2.2 H Nucleated RBC % (0 - 1.0 %) 0.0 Nucleated RBCs # (Man) (0.0 - 0.1 K/mm3) 0.00 Results: labs reviewed, vital signs stable, current med profile rev'd Diagnosis, Assessment PlanProblem List/A P: 1. S/P CABG (coronary artery bypass graft) 2. Coronary artery disease 3. Hypertension 4. Hyperlipidemia 5. Diabetes 6. Peripheral artery disease 7. Tinea pedis 8. Obesity 9. Hypothyroidism 10. Benign prostatic hyperplasia 11. Anemia Orders: Procedure Date/time Status FMRP-IM Resident Consult 04/05 828 Active Free Text DxA P NotesFree text DxA P notes:81 y/o M significant PMH HTN, HLD, 90 pack-year smoking hx, DM2, CAD, PAD, frequent SVT/PVC, neuropathy presented after angina, severe CAD on cath. Scheduled for CABG 03/31. 03/30/21:- Severe blockages in multiple vessels requiring CABG as per cath report- Currently asx- Multiple labs ordered as per CV surgery including CBC/CMP/coag studies WNL- NPO after midnight for surgery, Continue anticoagulation/abx/medications as per cardiovascular - Hold metoprolol 50 BID due to hypotension- Continue losartan 100 daily, Continue nitro patch q6H, Consider restart amlodipine 5 AM 2.5 PM if remains HTN- Continue Atorvastatin 80 daily- Continue levothyroxine 100 mcg daily- Hold metformin 1000 daily, Continue linagliptin 5 daily, Continue glimepiride 4 daily, Begin glucose monitoring w/ SSI- Continue tamsulosin 0.4 daily, Continue finasteride 5 mg daily, Continue oxybutynin 5 daily- White rash between multiple toes, moreso on L foot- Continue terbinafine cream BID 03/31/21:-Patient to OR for CABG today-Plan per CV team 04/01/21:-CABG postop 1-Plan per CV team 04/02/21:-CABG postop 2-c/o constipation, gas so was rx'd 1x lactulose 30g, simethicone-Otherwise plan per CV team 04/03/21:-CABG postop 3-had bowel movement yesterday-pt currently tachycardic, CV surgery team aware and actively managing-Otherwise plan per CV team 04/04/21cont asa/plavix/bb/statincont digoxin and amiocont IS/ambulationcm following for rehabstart lovenox for dvt ppx 04/05/21:-CABG postop 5-constipation for 3 days now, will rx lactulose 30 g-pt currently tachycardic, orders as per cardiology-increase in metoprolol to 25 BID, continue digoxin .25, amiodarone 400 BID-Otherwise plan per CV team Code: FULLDVT: Lovenox Diet: per CV team Quality: Gen Med Crit Care VTE ProphylaxisVTE prophylaxis initiated: yes Current MedicationsCurrent medication review:I attest that the foregoing medication list in the medical record is true, accurate, and complete to the best of my knowledge. Advanced Care Plan 65 or OlderDiscussed with: patientDiscussion included: code status (full code) Aisha Lucas 04/05/21 1520:Attestations Teaching Physician AttestationF/U visit w/ resident:I saw the patient with the resident and . . . agree with the resident's findings and plan. at 0856 at 1521 RPT #:[id number] OF REPORTPRProgress [id number]:51:00Z.[id number] for patient [id number]:57:12 2021-04-05 [id number]:48:00 [facility] 06:48:00 [facility] ([facility])Cardiology Progress NoteREPORT#:[id number] REPORT STATUS: SignedDATE:04/05/21 TIME: 0648 PATIENT: COLE JEFFREY UNIT #: [id number]#: [id number] [address] AGE: 81 SEX: M ATTEND: Aisha Lucas [facility] AUTHOR: Ruiz Bhatti MD * ALL edits or amendments must be made on the electronic/computer document * SubjectiveChief Complaint:CADPatient reports:No: chest pain, palpitations, shortness of breath. Objective GeneralVS/I O:24 hour I O ending at 0700: 04/05 0700 04/04 1900 Intake Total 400.20 997.10 Output Total 475 550 Balance -74.80 447.10 Intake, IV 100.20 217.10 Intake, Oral 300 780 Number 0 Bowel Movements Output, Urine 475 550 Vital Signs: Date Time Temp Pulse Resp B/P B/P Pulse O2 O2 Flow FiO2 Mean Ox Delivery Rate 04/05 0330 131 23 97/64 75 96 04/05 0300 128 22 95/70 78 98 04/05 0230 126 23 103/69 80 96 04/05 0200 127 19 104/67 81 97 04/05 0143 128 19 108/69 82 97 04/04 2300 98.1 04/04 2221 134 24 119/71 85 97 04/04 2121 133 30 127/76 92 97 04/04 2021 135 25 131/73 85 97 04/04 1921 137 25 125/91 103 97 04/04 1911 97.7 04/04 1900 97.7 04/04 1821 133 28 115/72 86 96 04/04 1800 134 87 04/04 1745 134 24 93 04/04 1730 124 98 04/04 1721 127 14 115/59 78 97 04/04 1715 129 97 04/04 1700 128 23 98 04/04 1645 114 18 98 04/04 1630 119 98 04/04 1621 112 150/56 80 99 04/04 1615 128 20 98 04/04 1610 97.2 04/04 1600 120 19 85 04/04 1545 115 97 04/04 1530 124 21 97 04/04 1521 116 21 106/59 77 94 04/04 1515 114 21 96 04/04 1500 114 24 96 04/04 1445 114 97 04/04 1430 110 96 04/04 1421 109 25 99/78 85 97 04/04 1415 118 96 04/04 1400 119 20 96 04/04 1345 131 96 04/04 1330 137 20 94 04/04 1321 141 100/63 77 97 04/04 1315 141 98 10/23 1300 138 21 100 04/04 1230 141 100 04/04 1225 97.0 04/04 1221 141 128/76 93 100 04/04 1215 140 100 04/04 1200 142 24 99 04/04 1145 138 25 100 04/04 1130 146 99 04/04 1121 143 25 121/86 100 99 04/04 1115 142 15 100 04/04 1100 139 100 04/04 1045 145 99 04/04 1030 133 18 100 04/04 1021 142 122/76 92 100 04/04 1015 141 25 100 04/04 1000 140 100 04/04 0946 95 Nasal 2 28 cannula 04/04 0930 140 99 04/04 0924 135 136/68 82 99 04/04 0915 142 100 04/04 0900 138 100 04/04 0845 143 100 04/04 0830 143 100 04/04 0815 146 18 100 04/04 0804 25 04/04 0800 144 107/65 80 96 04/04 0745 145 100 04/04 0738 142 25 104/58 79 100 04/04 0730 142 100 04/04 0720 97.0 04/04 0720 Nasal 2 cannula 04/04 0715 147 24 100 04/04 0700 142 25 PATIENT WEIGHT: Weight (lb): 240Weight (oz): 8.07Weight (kg): 108.862 Medications:Active Meds + DC'd Last 24 HrsEnoxaparin Sodium (LOVENOX) 40 MG QAM SUBQ Digoxin (LANOXIN) 0.25 MG DAILY PO (CKD) Amiodarone HCl (CORDARONE) 400 MG BID PO (CKD) Gabapentin (NEURONTIN) 100 MG 2100 PO Metoprolol Tartrate (LOPRESSOR) 12.5 MG Q12HR PO Amiodarone HCl (Nexterone PREMIX DRIP) 200 ML ASDIR IV (CKD) Simethicone (MYLICON 80MG) 160 MG Q6H PRN PRN PO Polyethylene Glycol (MIRALAX) 17 GM BID PRN PO Docusate Sodium (COLACE) 100 MG BID PO Famotidine (PEPCID) 20 MG BID PO Ferrous Sulfate (FEOSOL) 325 MG BID PO Insulin Human Lispro (HumaLOG) LOW DOSE SLIDING SCALE AC HS SUBQ Benzonatate (TESSALON PERLE) 100 MG TID PRN PRN PO Benzocaine/Menthol (Cepacol Sore Throat Lozenge) 1 EACH Q4H PRN PRN MM Clopidogrel Bisulfate (PLAVIX) 75 MG DAILY PO Mupirocin (BACTROBAN NASAL - ADULT ICU) 1 APPLIC BID NASAL Calcium Gluconate (CALCIUM GLUCONATE 10%) 1,000 MG ASDIR PRN IV Sodium Chloride (SODIUM CHLORIDE 0.9%) 100 MLDextrose/Water (DEXTROSE 50% IN WATER) 12.5 GM ASDIR PRN IV Dextrose/Water (DEXTROSE 50% IN WATER) 25 GM ASDIR PRN IV Dobutamine HCl/Dextrose (DOBUTamine HCL IN DEXTROSE) 250 ML ASDIR PRN IV Epinephrine (EPINEPHrine/NS 4MG/250ML) 250 ML ASDIR PRN IV Hydrocodone Bitart/Acetaminophen (NORCO 5/325 TABLET (C-II)) 1 TAB Q4H PRN PRN PO Lidocaine HCl/Dextrose (LIDOCAINE HCL IN 5% DEXTROSE) 500 ML ASDIR PRN IV (CKD) Magnesium Sulfate (MAG SULFATE 2GM PREMIX) 50 ML ASDIR PRN IV Magnesium Sulfate/Dextrose (Magnesium Sulfate) 100 ML ASDIR PRN IV Meperidine HCl (DEMEROL (C-II)) 12.5 MG Q6H PRN PRN IM Morphine Sulfate (morphine SULFATE (C-II)) 2 MG Q15M PRN PRN IV Ondansetron HCl (ZOFRAN) 4 MG Q8H PRN PRN IV Potassium Chloride (Potassium Chloride) 50 ML ASDIR PRN IV Sodium Bicarbonate (SODIUM BICARBONATE) 4.2 GM ASDIR PRN IV (CKD) Dextrose/Water (DEXTROSE 50% IN WATER) 12.5 GM ASDIR PRN IV Dextrose/Water (DEXTROSE 50% IN WATER) 25 GM ASDIR PRN IV Insulin Human Regular (HUMULIN R) 100 UNIT ASDIR IV (CKD) Sodium Chloride (SODIUM CHLORIDE 0.9%) 99 MLNicardipine HCl (CARDENE I.V.) 25 MG ASDIR IV (CKD) Sodium Chloride (SODIUM CHLORIDE 0.9%) 250 MLAspirin (ASPIRIN EC) 81 MG DAILY PO Levothyroxine Sodium (Synthroid) 100 MCG DAILY PO Atorvastatin Calcium (LIPITOR) 80 MG BEDTIME PO Clotrimazole (LOTRIMIN) 1 ROLDAN BID TOPICAL (CKD) Oxybutynin Chloride (DITROPAN) 5 MG BEDTIME PO Tamsulosin HCl (FLOMAX) 0.4 MG BID PO Finasteride (PROSCAR) 5 MG DAILY PO Ondansetron HCl (ZOFRAN) 4 MG Q8H PRN PRN IV Physical ExamGeneral appearance: alert, awake, orientedHead/Eyes: atraumatic, normocephalicENT: moist mucosal membranesNeck: no JVDCardiovascular: CV assessment: irregularly irregularRespiratory: crackles, decreased breath sounds, no distressLower extremity: LE assessment: Trace edema.Musculoskeletal: full range of motionNeuro/HUMAN RESOURCES LEADER: alert, oriented X 3, CN II-XII intactSkin: dry, intactWound/incision: Location:Sternal Site condition: dressing clean dryPsychiatry: normal affect, normal judgment/insight, normal mood ResultsFindings/Data:Laboratory Tests 04/05 0425 2113 1752 1128 Chemistry Sodium (137 - 145 MMOL/L) 130 L Potassium (3.5 - 5.1 MMOL/L) 3.7 Chloride (98 - 107 MMOL/L) 98 Carbon Dioxide (22 - 30 MMOL/L) 26 BUN (9 - 20 MG/DL) 26 H Creatinine (0.66 - 1.25 MG/DL) 1.00 Glomerular Filtr Rate > 60 Glucose (74 - 106 MG/DL) 148 H POC Glucose (60 - 99 MG/DL) 178 H 184 H 211 H Lactic Acid (0.7 - 2.1 MMOL/L) 0.9 Calcium (8.4 - 10.2 MG/DL) 7.5 L 04/04 0735 Chemistry POC Glucose (60 - 99 MG/DL) 176 H Laboratory Tests 04/05 0420 Hematology WBC (3.8 - 9.8 K/MM3) 9.4 RBC (3.95 - 5.67 M/MM3) 2.84 L Hgb (12.4 - 16.7 G/DL) 8.2 L Hct (35.9 - 49.5 %) 24.6 L MCV (81.7 - 96.1 fL) 87 MCH (27.6 - 33.2 pg) 28.9 MCHC (32.9 - 35.5 %) 33.3 RDW (12.1 - 15.2 %) 14.9 Plt Count (129 - 368 K/MM3) 229 MPV (7.4 - 10.4 fl) 10.4 Neut % (Auto) (43 - 75 %) 60.7 Lymph % (Auto) (14 - 44 %) 19.6 Ocean % (Auto) (4 - 13 %) 14.0 H Eos % (Auto) (0 - 6 %) 3.0 Baso % (Auto) (0 - 2 %) 0.5 Neut # (Auto) (2.0 - 7.6 K/mm3) 5.68 Lymph # (Auto) (1.0 - 3.8 K/mm3) 1.84 Ocean # (Auto) (0.1 - 0.8 K/mm3) 1.31 H Eos # (Auto) (0.0 - 0.2 K/mm3) 0.28 H Baso # (Auto) (0.0 - 0.2 K/mm3) 0.05 Immature Gran % (0.0 - 2.0 %) 2.2 H Nucleated RBC % (0 - 1.0 %) 0.0 Nucleated RBCs # (Man) (0.0 - 0.1 K/mm3) 0.00 Diagnosis, Assessment Plan Free Text DxA P NotesFree Text DxA P Notes:IMP: 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 Volume overload HLP DM AFIB with RVR PLAN: Continue digoxin, amiodarone. Ambulate IS at 1237 [facility] #:[id number] OF REPORTPRProgress [id number]:48:00Z.[id number] for patient [id number]:37:44 2021-04-05 [id number]:02:[id number] [facility] 06:02:00 [address] [place] [address] PATIENT NAME: COLE JEFFREY ADMIT DATE: 03/28/21ACCOUNT NO: [id number] ROOM NO: Z.SI02 AGE: 81 REPORT TYPE: ELECTROCARDIOGRAM SEX: M ADMITTING PHYSICIAN:Aisha Lucas MD ATTENDING PHYSICIAN:Aisha Lucas MD Order:[id number] Reason : CAD post CAb Test Date/Time Stamp:TueApr 05 2021 06:02:59Blood Pressure : / mmHGVent. Rate : 127 BPM Atrial Rate : 129 BPM P-R Int : 000 ms QRS Dur : 162 ms QT Int : 344 ms P-R-T Axes : 000 -56 116 degrees QTc Int : 499 ms Atrial fibrillation with rapid ventricular responseRight bundle branch blockLeft anterior fascicular block Bifascicular block Abnormal ECGWhen compared with ECG of 04-APR-2021 07:31,No significant change was foundConfirmed by BRYCE MCADAMS MD ([id number]) on 04/05/2021 9:03:31 AM Referred By: Aisha Lucas Confirmed by:BRYCE MCADAMS MD at 0903 PATIENT NAME: COLE JEFFREY .[id number] for patient [id number]:04:02 2021-04-05 [id number]:02:[id number] [facility] 06:02:[address] [address] PATIENT NAME: COLE JEFFREY ADMIT DATE: 03/28/21ACCOUNT NO: [id number] ROOM NO: Z.SI02 AGE: 81 REPORT TYPE: ELECTROCARDIOGRAM SEX: M ADMITTING PHYSICIAN:Aisha Lucas MD ATTENDING PHYSICIAN:Aisha Lucas MD Order:[id number] Reason : CAD post CAb Test Date/Time Stamp:TueApr 05 2021 06:02:59Blood Pressure : / mmHGVent. Rate : 127 BPM Atrial Rate : 129 BPM P-R Int : 000 ms QRS Dur : 162 ms QT Int : 344 ms P-R-T Axes : 000 -56 116 degrees QTc Int : 499 ms Atrial fibrillation with rapid ventricular responseRight bundle branch blockLeft anterior fascicular block Bifascicular block Abnormal ECGWhen compared with ECG of 04-APR-2021 07:31,No significant change was foundReconfirmed by NONI MARQUEZ ([id number]) on 04/05/2021 4:18:46 PM Referred By: Aisha Lucas Confirmed by:NONI MARQUEZ at 1618 PATIENT NAME: COLE JEFFREY .[id number] for patient [id number]:19:18 2021-04-04 [id number]:32:00 [facility]CA[facility] 16:32:00 [facility]ospital[facility] Progress NoteREPORT#:[id number] REPORT STATUS: SignedDATE:04/04/21 TIME: 1632 PATIENT: COLE JEFFREY UNIT #: [id number]#: [id number] [address]UFK: [address] AGE: 81 SEX: M [facility]END[facility] AUTHOR: Aisha Lucas MD * ALL edits or amendments must be made on the electronic/computer document * SubjectiveChief Complaint:doing better today. sitting in the chair taling on the phone. at bedside. had sinus tachy this morning now HR better controlled. he leoncio he walked a couple laps in the hallway this [facility]. Review of SystemsAll systems rev neg: except as marked Objective GeneralVS/I O:Vital Signs: Date Time Temp Pulse Resp B/P B/P Pulse O2 O2 Flow FiO2 Mean Ox Delivery Rate 04/04 1121 143 25 121/86 100 99 04/04 1115 142 15 100 04/04 1100 139 100 04/04 1045 145 99 04/04 1030 133 18 100 04/04 1021 142 122/76 92 100 04/04 1015 141 25 100 04/04 1000 140 100 04/04 0946 95 Nasal 2 28 cannula 04/04 0930 140 99 04/04 0924 135 136/68 82 99 04/04 0915 142 100 04/04 0900 138 100 04/04 0845 143 100 04/04 0830 143 100 04/04 0815 146 18 100 04/04 0804 25 04/04 0800 144 107/65 80 96 04/04 0745 145 100 04/04 0738 142 25 104/58 79 100 04/04 0730 142 100 04/04 0720 36.1 04/04 0720 Nasal 2 cannula 04/04 0715 147 24 100 04/04 0700 142 25 04/04 0300 37.0 98 Nasal 2 cannula 04/04 0000 138 18 99/67 73 100 04/03 2345 140 18 100 04/03 2330 141 19 100 04/03 2315 140 20 100 04/03 2300 36.7 100 Nasal 2 cannula 04/03 2300 143 20 101/56 73 100 04/03 2245 142 19 100 04/03 2230 143 18 100 04/03 2215 142 23 100 04/03 2200 139 25 133/78 96 100 04/03 2145 142 21 100 04/03 2130 141 23 100 04/03 2115 140 22 100 04/03 2100 138 23 128/84 100 99 04/03 2015 142 25 100 04/03 2000 145 25 113/72 86 99 04/03 1945 147 24 99 04/03 1915 142 23 100 04/03 1900 Nasal 2 cannula 04/03 1900 36.4 100 Nasal 2 cannula 04/03 1900 141 23 107/76 86 100 04/03 1830 141 24 100 04/03 1815 139 22 100 04/03 1800 36.3 04/03 1800 142 20 110/69 83 100 04/03 1745 140 24 100 04/03 1730 140 25 100 04/03 1715 140 24 100 04/03 1700 36.2 04/03 1700 139 25 106/71 84 98 04/03 1645 142 21 72 24 hour I O ending at 0700: 04/04 0700 04/03 1900 Intake Total 183.70 1116.70 Output Total 855 1000 Balance -671.30 116.70 Intake, IV 183.70 226.70 Intake, Oral 540 Intake, 350 Packed Cells Output, Urine 855 1000 PATIENT WEIGHT: Weight (lb): 240Weight (oz): 8.07Weight (kg): 108.862 Medications:Active Meds + DC'd Last 24 HrsEnoxaparin Sodium (LOVENOX) 40 MG QAM SUBQ Digoxin (LANOXIN) 0.25 MG DAILY PO (CKD) Amiodarone HCl (CORDARONE) 400 MG BID PO (CKD) Gabapentin (NEURONTIN) 100 MG 2100 PO Furosemide (LASIX) 20 MG ONCE ONE IV (DC) Metoprolol Tartrate (LOPRESSOR) 12.5 MG Q12HR PO Amiodarone HCl (Nexterone PREMIX DRIP) 200 ML ASDIR IV (CKD) Simethicone (MYLICON 80MG) 160 MG Q6H PRN PRN PO Polyethylene Glycol (MIRALAX) 17 GM BID PRN PO Docusate Sodium (COLACE) 100 MG BID PO Famotidine (PEPCID) 20 MG BID PO Ferrous Sulfate (FEOSOL) 325 MG BID PO Insulin Human Lispro (HumaLOG) LOW DOSE SLIDING SCALE AC HS SUBQ Benzonatate (TESSALON PERLE) 100 MG TID PRN PRN PO Benzocaine/Menthol (Cepacol Sore Throat Lozenge) 1 EACH Q4H PRN PRN MM Clopidogrel Bisulfate (PLAVIX) 75 MG DAILY PO Mupirocin (BACTROBAN NASAL - ADULT ICU) 1 APPLIC BID NASAL Calcium Gluconate (CALCIUM GLUCONATE 10%) 1,000 MG ASDIR PRN IV Sodium Chloride (SODIUM CHLORIDE 0.9%) 100 MLDextrose/Water (DEXTROSE 50% IN WATER) 12.5 GM ASDIR PRN IV Dextrose/Water (DEXTROSE 50% IN WATER) 25 GM ASDIR PRN IV Dobutamine HCl/Dextrose (DOBUTamine HCL IN DEXTROSE) 250 ML ASDIR PRN IV Epinephrine (EPINEPHrine/NS 4MG/250ML) 250 ML ASDIR PRN IV Hydrocodone Bitart/Acetaminophen (NORCO 5/325 TABLET (C-II)) 1 TAB Q4H PRN PRN PO Lidocaine HCl/Dextrose (LIDOCAINE HCL IN 5% DEXTROSE) 500 ML ASDIR PRN IV (CKD) Magnesium Sulfate (MAG SULFATE 2GM PREMIX) 50 ML ASDIR PRN IV Magnesium Sulfate/Dextrose (Magnesium Sulfate) 100 ML ASDIR PRN IV Meperidine HCl (DEMEROL (C-II)) 12.5 MG Q6H PRN PRN IM Morphine Sulfate (morphine SULFATE (C-II)) 2 MG Q15M PRN PRN IV Ondansetron HCl (ZOFRAN) 4 MG Q8H PRN PRN IV Potassium Chloride (Potassium Chloride) 50 ML ASDIR PRN IV Sodium Bicarbonate (SODIUM BICARBONATE) 4.2 GM ASDIR PRN IV (CKD) Dextrose/Water (DEXTROSE 50% IN WATER) 12.5 GM ASDIR PRN IV Dextrose/Water (DEXTROSE 50% IN WATER) 25 GM ASDIR PRN IV Insulin Human Regular (HUMULIN R) 100 UNIT ASDIR IV (CKD) Sodium Chloride (SODIUM CHLORIDE 0.9%) 99 MLNicardipine HCl (CARDENE I.V.) 25 MG ASDIR IV (CKD) Sodium Chloride (SODIUM CHLORIDE 0.9%) 250 MLAspirin (ASPIRIN EC) 81 MG DAILY PO Levothyroxine Sodium (Synthroid) 100 MCG DAILY PO Atorvastatin Calcium (LIPITOR) 80 MG BEDTIME PO Clotrimazole (LOTRIMIN) 1 ROLDAN BID TOPICAL (CKD) Oxybutynin Chloride (DITROPAN) 5 MG BEDTIME PO Tamsulosin HCl (FLOMAX) 0.4 MG BID PO Finasteride (PROSCAR) 5 MG DAILY PO Ondansetron HCl (ZOFRAN) 4 MG Q8H PRN PRN IV Nutrition assessment:The data set between the solid lines has been imported from the dietitian's assessment. Any exceptions have been noted under Provider comments. BMI Calculated: 32.5Nutrition related diagnosis: ObeseNutrition diagnosis details: BMI 30-39.9Nutrition problem: KNOWLEDGE DEFICITNutrition etiology: CARDIAC HEALTH AND DIETNutrition signs and symptoms: MD CONSULT FOR HEART HEALTHY , DIET EDUCATIONNutrition prescription: WHEN MEDICALLY APPROPRIATE, ADVANCE DIET TOLERATED FROM DIABETIC CLEAR LIQUID TO DIABETIC FULL LIQUID DIABETIC TO DIABETIC/NUTRITIONALLY ADEQUATE DIET. RDN TO FOLLOW UP AND EDUCATE PT ON HEART HEALTHY DIET WHEN HIS VISITS REQUESTED.Dietitian name: Ava Benito, DIETAssessment completed: 03/31/21 Provider comments on imported dietitian assessment: Physical ExamGeneral appearance: alert, awake, oriented, no acute distressHead/Eyes: atraumatic, normal conjunctiva/scleraENT: moist mucosal membranesNeck: full range of motion, supple/no meningismusCardiovascular: tachycardic, normal capillary refill, normal heart sounds, no murmurRespiratory: clear to auscultation, no distressAbdomen: non-tender, normal bowel sounds, soft, no distention, no guarding, no hernia, no mass/organomegaly, no reboundGenitourinary: foleyExtremities: moves all, normal capillary refill, normal range of motion, no edemaNeuro/HUMAN RESOURCES LEADER: alert, oriented X 3, CNII-XII intactSkin: dry, normal temperatureWound/incision: Location: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, DRESSING CDI ResultsFindings/Data:Laboratory Tests 04/04 04/04 04/03 04/03 1128 0735 2144 1749 Chemistry POC Glucose (60 - 99 MG/DL) 211 H 176 H 184 H 159 H Radiology data:Recent Impressions:RADIOLOGY - XR CHEST 1V 04/04 0510 Report Impression - Status: SIGNED Entered: 04/04/2021 0823 IMPRESSION: Mild cardiomegaly and central venous congestion with alayering left effusion and atelectasisImpression By: Karlene Garay M.D. Diagnosis, Assessment PlanOrders: Procedure Date/time Status O2 DAILY CHARGE 04/04 UNK Complete Free Text DxA P NotesFree text DxA P notes:81 y/o M significant PMH HTN, HLD, 90 pack-year smoking hx, DM2, CAD, PAD, frequent SVT/PVC, neuropathy presented after angina, severe CAD on cath. Scheduled for CABG 03/31. 03/30/21:- Severe blockages in multiple vessels requiring CABG as per cath report- Currently asx- Multiple labs ordered as per CV surgery including CBC/CMP/coag studies WNL- NPO after midnight for surgery, Continue anticoagulation/abx/medications as per cardiovascular - Hold metoprolol 50 BID due to hypotension- Continue losartan 100 daily, Continue nitro patch q6H, Consider restart amlodipine 5 AM 2.5 PM if remains HTN- Continue Atorvastatin 80 daily- Continue levothyroxine 100 mcg daily- Hold metformin 1000 daily, Continue linagliptin 5 daily, Continue glimepiride 4 daily, Begin glucose monitoring w/ SSI- Continue tamsulosin 0.4 daily, Continue finasteride 5 mg daily, Continue oxybutynin 5 daily- White rash between multiple toes, moreso on L foot- Continue terbinafine cream BID 03/31/21:-Patient to OR for CABG today-Plan per CV team 04/01/21:-CABG postop 1-Plan per CV team 04/02/21:-CABG postop 2-c/o constipation, gas so was rx'd 1x lactulose 30g, simethicone-Otherwise plan per CV team 04/03/21:-CABG postop 3-had bowel movement yesterday-pt currently tachycardic, CV surgery team aware and actively managing-Otherwise plan per CV team 04/04/21cont asa/plavix/bb/statincont digoxin and amiocont IS/ambulationcm following for rehabstart lovenox for dvt ppxCode: FULLDVT: Lovenox Diet: per CV team Quality: Gen Med Crit Care VTE ProphylaxisVTE prophylaxis initiated: yes Current MedicationsCurrent medication review:I attest that the foregoing medication list in the medical record is true, accurate, and complete to the best of my knowledge. Advanced Care Plan 65 or OlderDiscussed with: patientDiscussion included: code status (full code) at 1636 RPT #:[id number] OF REPORTPRProgress [id number]:32:00Z.[id number] for patient [id number]:36:53 2021-04-04 [id number] [facility] 07:31:[address] [address] PATIENT NAME: COLE JEFFREY ADMIT DATE: 03/28/21ACCOUNT NO: [id number] ROOM NO: [facility] AGE: 81 REPORT TYPE: ELECTROCARDIOGRAM SEX: M ADMITTING PHYSICIAN:Aisha Lucas MD ATTENDING PHYSICIAN:Aisha Lucas MD Order:[id number] Reason : CAD/PAFIB Test Date/Time Stamp:TueApr 04 2021 07:31:21Blood Pressure : / mmHGVent. Rate : 145 BPM Atrial Rate : 096 BPM P-R Int : 000 ms QRS Dur : 156 ms QT Int : 372 ms P-R-T Axes : 000 -47 105 degrees QTc Int : 577 ms Atrial fibrillation with rapid ventricular responseRight bundle branch blockLeft anterior fascicular block Bifascicular block Abnormal ECGWhen compared with ECG of 04-APR-2021 05:53,No significant change was foundConfirmed by NONI MARQUEZ ([id number]) on 04/04/2021 9:15:57 AM Referred By: Aisha Lucas Confirmed by:NONI MARQUEZ at 0915 PATIENT NAME: COLE JEFFREY .[id number] for patient [id number]:16:24 2021-04-04 [id number]:40:00 [facility] 06:40:00 [facility] ([facility])Cardiology Progress NoteREPORT#:[id number] REPORT STATUS: SignedDATE:04/04/21 TIME: 0640 PATIENT: COLE JEFFREY UNIT #: [id number]#: [id number] [facility]-JUQU: 39 AGE: 81 SEX: M ATTEND: [facility] AUTHOR: Ruiz Bhatti MD * ALL edits or amendments must be made on the electronic/computer document * SubjectiveChief Complaint:CADPatient reports:No: chest pain, palpitations, shortness of breath. Objective GeneralVS/I O:24 hour I O ending at 0700: 04/04 0700 04/03 1900 Intake Total 1116.70 Output Total 1000 Balance 116.70 Intake, IV 226.70 Intake, Oral 540 Intake, 350 Packed Cells Output, Urine 1000 Vital Signs: Date Time Temp Pulse Resp B/P B/P Pulse O2 O2 Flow FiO2 Mean Ox Delivery Rate 04/04 0000 138 18 99/67 73 100 04/03 2345 140 18 100 04/03 2330 141 19 100 04/03 2315 140 20 100 04/03 2300 98.0 100 Nasal 2 cannula 04/03 2300 143 20 101/56 73 100 04/03 2245 142 19 100 04/03 2230 143 18 100 04/03 2215 142 23 100 04/03 2200 139 25 133/78 96 100 04/03 2145 142 21 100 04/03 2130 141 23 100 04/03 2115 140 22 100 04/03 2100 138 23 128/84 100 99 04/03 2015 142 25 100 04/03 2000 145 25 113/72 86 99 04/03 1945 147 24 99 04/03 1915 142 23 100 04/03 1900 Nasal 2 cannula 04/03 1900 97.5 100 Nasal 2 cannula 04/03 1900 141 23 107/76 86 100 04/03 1830 141 24 100 04/03 1815 139 22 100 04/03 1800 97.3 04/03 1800 142 20 110/69 83 100 04/03 1745 140 24 100 04/03 1730 140 25 100 04/03 1715 140 24 100 04/03 1700 97.2 04/03 1700 139 25 106/71 84 98 04/03 1645 142 21 72 04/03 1630 137 28 100 04/03 1615 142 26 100 04/03 1600 97.2 04/03 1600 137 27 101/60 76 100 04/03 1556 97.1 135 20 93/67 100 04/03 1545 137 25 100 04/03 1537 139 24 93/67 77 100 04/03 1530 138 24 100 04/03 1530 97.1 135 21 96/67 100 04/03 1522 97.2 04/03 1519 139 25 92/64 74 100 04/03 1515 140 24 100 04/03 1510 97.2 138 24 92/64 100 04/03 1507 139 25 86/66 72 100 04/03 1500 136 100 04/03 1456 97.2 04/03 1445 133 99 04/03 1415 130 23 100 04/03 1400 136 23 140/79 96 99 04/03 1345 132 100 04/03 1330 132 21 100 04/03 1315 131 100 04/03 1300 130 100 04/03 1245 128 22 99 04/03 1235 127 19 97/65 77 98 04/03 1230 128 24 99 04/03 1217 96.9 04/03 1215 129 16 98 04/03 1200 130 14 99 04/03 1145 131 21 97 04/03 1130 127 16 96 04/03 1100 134 122/78 92 98 04/03 1045 136 97 04/03 1030 135 97 04/03 1015 136 98 04/03 1000 138 125/74 93 98 04/03 0945 136 98 04/03 0930 138 22 98 04/03 0915 135 23 98 04/03 0900 134 120/62 85 97 04/03 0845 138 98 04/03 0830 140 23 98 04/03 0815 140 32 99 04/03 0800 139 119/68 88 98 04/03 0745 137 97 04/03 0730 136 97 04/03 0725 97.8 04/03 0725 Nasal 2 cannula 04/03 0715 135 97 04/03 0700 135 13 108/71 86 98 PATIENT WEIGHT: Weight (lb): 240Weight (oz): 8.07Weight (kg): 108.862 Medications:Active Meds + DC'd Last 24 HrsAmiodarone HCl (CORDARONE) 400 MG BID PO (CKD) Gabapentin (NEURONTIN) 100 MG 2100 PO Furosemide (LASIX) 20 MG ONCE ONE IV (DC) Metoprolol Tartrate (LOPRESSOR) 12.5 MG Q12HR PO Metoprolol Tartrate (LOPRESSOR) 25 MG Q12HR PO (DC) Furosemide (LASIX) 40 MG ONCE ONE IV (DC) Digoxin (LANOXIN) 0.5 MG NOW ONE IV (DC) Amiodarone HCl (Nexterone PREMIX DRIP) 200 ML ASDIR IV (CKD) Simethicone (MYLICON 80MG) 160 MG Q6H PRN PRN PO Polyethylene Glycol (MIRALAX) 17 GM BID PRN PO Docusate Sodium (COLACE) 100 MG BID PO Famotidine (PEPCID) 20 MG BID PO Ferrous Sulfate (FEOSOL) 325 MG BID PO Insulin Human Lispro (HumaLOG) LOW DOSE SLIDING SCALE AC HS SUBQ Benzonatate (TESSALON PERLE) 100 MG TID PRN PRN PO Benzocaine/Menthol (Cepacol Sore Throat Lozenge) 1 EACH Q4H PRN PRN MM Clopidogrel Bisulfate (PLAVIX) 75 MG DAILY PO Mupirocin (BACTROBAN NASAL - ADULT ICU) 1 APPLIC BID NASAL Calcium Gluconate (CALCIUM GLUCONATE 10%) 1,000 MG ASDIR PRN IV Sodium Chloride (SODIUM CHLORIDE 0.9%) 100 MLDextrose/Water (DEXTROSE 50% IN WATER) 12.5 GM ASDIR PRN IV Dextrose/Water (DEXTROSE 50% IN WATER) 25 GM ASDIR PRN IV Dobutamine HCl/Dextrose (DOBUTamine HCL IN DEXTROSE) 250 ML ASDIR PRN IV Epinephrine (EPINEPHrine/NS 4MG/250ML) 250 ML ASDIR PRN IV Hydrocodone Bitart/Acetaminophen (NORCO 5/325 TABLET (C-II)) 1 TAB Q4H PRN PRN PO Lidocaine HCl/Dextrose (LIDOCAINE HCL IN 5% DEXTROSE) 500 ML ASDIR PRN IV (CKD) Magnesium Sulfate (MAG SULFATE 2GM PREMIX) 50 ML ASDIR PRN IV Magnesium Sulfate/Dextrose (Magnesium Sulfate) 100 ML ASDIR PRN IV Meperidine HCl (DEMEROL (C-II)) 12.5 MG Q6H PRN PRN IM Morphine Sulfate (morphine SULFATE (C-II)) 2 MG Q15M PRN PRN IV Ondansetron HCl (ZOFRAN) 4 MG Q8H PRN PRN IV Potassium Chloride (Potassium Chloride) 50 ML ASDIR PRN IV Sodium Bicarbonate (SODIUM BICARBONATE) 4.2 GM ASDIR PRN IV (CKD) Dextrose/Water (DEXTROSE 50% IN WATER) 12.5 GM ASDIR PRN IV Dextrose/Water (DEXTROSE 50% IN WATER) 25 GM ASDIR PRN IV Insulin Human Regular (HUMULIN R) 100 UNIT ASDIR IV (CKD) Sodium Chloride (SODIUM CHLORIDE 0.9%) 99 MLNicardipine HCl (CARDENE I.V.) 25 MG ASDIR IV (CKD) Sodium Chloride (SODIUM CHLORIDE 0.9%) 250 MLAspirin (ASPIRIN EC) 81 MG DAILY PO Levothyroxine Sodium (Synthroid) 100 MCG DAILY PO Atorvastatin Calcium (LIPITOR) 80 MG BEDTIME PO Clotrimazole (LOTRIMIN) 1 ROLDAN BID TOPICAL (CKD) Oxybutynin Chloride (DITROPAN) 5 MG BEDTIME PO Tamsulosin HCl (FLOMAX) 0.4 MG BID PO Finasteride (PROSCAR) 5 MG DAILY PO Ondansetron HCl (ZOFRAN) 4 MG Q8H PRN PRN IV Physical ExamGeneral appearance: alert, awake, orientedHead/Eyes: atraumatic, normocephalicENT: moist mucosal membranesNeck: no JVDCardiovascular: CV assessment: regular rate and rhythmRespiratory: crackles, decreased breath sounds, no distressLower extremity: LE assessment: Trace edema.Musculoskeletal: full range of motionNeuro/HUMAN RESOURCES LEADER: alert, oriented X 3, CN II-XII intactSkin: dry, intactWound/incision: Location:Sternal Site condition: dressing clean dryPsychiatry: normal affect, normal judgment/insight, normal mood ResultsFindings/Data:Laboratory Tests 04/03 04/03 04/03 04/03 04/03 2144 1749 1213 0823 0725 Chemistry Potassium (3.5 - 5.1 MMOL/L) 4.3 POC Glucose (60 - 99 MG/DL) 184 H 159 H 278 H 258 H Calcium (8.4 - 10.2 MG/DL) 7.8 L Magnesium (1.6 - 2.3 MG/DL) 2.4 H Laboratory Tests 04/03 0823 Hematology Hgb (12.4 - 16.7 G/DL) 8.2 L Hct (35.9 - 49.5 %) 24.8 L Laboratory Tests 04/03 0823 Chemistry Magnesium (1.6 - 2.3 MG/DL) 2.4 H Radiology data:Recent Impressions:RADIOLOGY - XR CHEST 1V 04/03 1300 Report Impression - Status: SIGNED Entered: 04/03/2021 1326 IMPRESSION:Trace left apical pneumothorax. Mild bibasilar atelectasis, decreased on the right prior exam. Cardiomegaly.Impression By: Wayne Mosquera MD Diagnosis, Assessment Plan Free Text DxA P NotesFree Text DxA P Notes:IMP: 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 Volume overload HLP DM AFIB with RVR PLAN: Continue digoxin, amiodarone. Increase beta al when able. Ambulate IS at 1236 RPT #:[id number] OF REPORTPRProgress [id number]:40:[id number] for patient [id number]:37:23 2021-04-04 [id number] [facility] 05:53:00 [address] [place] [address] PATIENT NAME: COLE JEFFREY ADMIT DATE: 03/28/21ACCOUNT NO: [id number] ROOM NO: [facility] AGE: 81 REPORT TYPE: ELECTROCARDIOGRAM SEX: M ADMITTING PHYSICIAN:Aisha Lucas MD ATTENDING PHYSICIAN:Aisha Lucas MD Order:[id number] Reason : CAD/PAFIB Test Date/Time Stamp:TueApr 04 2021 05:53:34Blood Pressure : / mmHGVent. Rate : 146 BPM Atrial Rate : 073 BPM P-R Int : 000 ms QRS Dur : 154 ms QT Int : 366 ms P-R-T Axes : 000 -47 106 degrees QTc Int : 570 ms Atrial fibrillation with rapid ventricular responseRight bundle branch blockLeft anterior fascicular block Bifascicular block T wave abnormality, consider lateral ischemia or digitalis effectAbnormal ECGWhen compared with ECG of 03-APR-2021 06:07,No significant change was foundConfirmed by NONI MARQUEZ ([id number]) on 04/04/2021 9:15:22 AM Referred By: Aisha Lucas Confirmed by:NONI MARQUEZ at 0915 PATIENT NAME: COLE JEFFREY .[id number] for patient [id number]:15:44 2021-04-03 [id number]:57:00 [facility] 09:57:00 [facility]ospital[facility] Progress NoteREPORT#:[id number] REPORT STATUS: SignedDATE:04/03/21 TIME: 956 PATIENT: COLE JEFFREY UNIT #: [id number]#: [id number] [address]: [address] AGE: 81 SEX: M ATTEND: Aisha Lucas [facility] AUTHOR: Vidal Larry MD, MPH R1 * ALL edits or amendments must be made on the electronic/computer document * Vidal Larry 04/03/21 0957:SubjectiveChief Complaint:Pt is now s/p CABG 3 day. He is c/o ongoing chest pain, worse w/ movement of arms/chest. Overnight pt had an episode of hypotension systolic 80s and his painmedication was held for now.Pt currently tachycardic to 130s at rest. Review of SystemsConstitutional:Denies: chills, fatigue, fever, generalized weakness, lethargy, malaise, recent wt loss. Respiratory:Reports: COWAN (dyspnea on exertion). Denies: hemoptysis, non productive cough, parox nocturnal dyspnea, pleurisy, pleuritic pain, pneumonia, productive cough (sputum), SOB, wheezing. Cardiovascular:Reports: chest pain, COWAN (dyspnea on exertion), orthopnea. Denies: edema, palpitations, parox nocturnal dyspnea. All systems rev neg: except as marked Objective GeneralVS/I O:Vital Signs: Date Time Temp Pulse Resp B/P B/P Pulse O2 O2 Flow FiO2 Mean Ox Delivery Rate 04/03 0725 97.8 04/03 0725 Nasal 2 cannula 04/03 0557 136 16 96 04/03 0545 138 19 97 04/03 0535 140 17 97 04/03 0530 140 97 04/03 0515 141 23 04/03 0500 140 21 135/63 86 96 04/03 0445 139 23 04/03 0415 137 23 98 04/03 0400 98.6 04/03 0400 137 21 93/63 74 98 04/03 0345 139 20 97 04/03 0330 139 21 97 04/03 0315 140 23 04/03 0300 142 21 106/59 77 98 04/03 0245 143 23 78 04/03 0244 140 24 110/57 78 83 04/03 0230 140 23 98 04/03 0215 143 11 99 04/03 0200 147 14 100 04/03 0145 148 22 99 04/03 0130 148 21 98 04/03 0115 154 21 04/03 0100 151 21 99 04/03 0045 154 21 99 04/03 0030 162 22 100 04/03 0015 80 16 100 04/03 0000 98.6 04/03 0000 79 20 100 04/02 2345 93 18 100 04/02 2330 83 13 100 04/02 2315 81 20 100 04/02 2300 80 19 99 04/02 2245 80 19 100 04/02 2230 79 20 100 04/02 2215 81 20 100 04/02 2200 84 20 100 04/02 2145 85 21 100 04/020 79 19 100 04/02 2115 81 20 100 04/02 2100 80 19 100 04/02 2045 83 20 100 04/02 2030 81 19 100 04/02 2015 81 20 100 04/02 2000 82 22 100 04/02 1945 85 23 100 04/02 1930 Nasal 2 cannula 04/02 1930 100 Nasal 2 28 cannula 04/02 1930 98.6 80 16 143/43 76 100 Nasal 2 cannula 04/02 1915 82 20 98 04/02 1900 85 25 98 04/02 1830 87 24 100 04/02 1745 90 04/02 1700 87 100 04/02 1630 86 98 04/02 1600 84 23 04/02 1530 84 16 100 04/02 1515 88 22 99 04/02 1512 98.2 86 20 99 Nasal 2 cannula 04/02 1445 85 19 100 04/02 1430 84 16 100 04/02 1400 89 23 99 04/02 1330 89 100 04/02 1300 88 19 100 04/02 1230 88 99 04/02 1200 97 100 04/02 1130 85 99 04/02 1115 98.0 88 18 98 Nasal 2 cannula 04/02 1100 82 19 100 04/02 1045 81 100 04/02 1031 100 Nasal 2 28 cannula 04/02 1030 87 22 100 04/02 1015 83 24 100 04/02 1000 87 100 24 hour I O ending at 0700: 04/02 1900 04/03 0700 Intake Total 1030.00 733.10 Output Total 430 510 Balance 600.00 223.10 Intake, IV 100.00 433.10 Intake, Oral 930 300 Number 1 Bowel Movements Output, Chest 80 60 Tube Drainage Output, Urine 350 450 PATIENT WEIGHT: Weight (lb): 240Weight (oz): 8.07Weight (kg): 108.862 Medications:Active Meds + DC'd Last 24 HrsGabapentin (NEURONTIN) 100 MG 2100 PO Metoprolol Tartrate (LOPRESSOR) 12.5 MG Q12HR PO Metoprolol Tartrate (LOPRESSOR) 25 MG Q12HR PO (DC) Furosemide (LASIX) 40 MG ONCE ONE IV (DC) Digoxin (LANOXIN) 0.5 MG NOW ONE IV (DC) Amiodarone HCl (Nexterone PREMIX DRIP) 200 ML ASDIR IV (CKD) Digoxin (LANOXIN) 0.25 MG NOW ONE IV (DC) Furosemide (LASIX) 20 MG ONCE ONE IV (DC) Lactulose (CHRONULAC) 30 GM NOW ONE PO (DC) Simethicone (MYLICON 80MG) 160 MG Q6H PRN PRN PO Polyethylene Glycol (MIRALAX) 17 GM BID PRN PO Docusate Sodium (COLACE) 100 MG BID PO Famotidine (PEPCID) 20 MG BID PO Ferrous Sulfate (FEOSOL) 325 MG BID PO Insulin Human Lispro (HumaLOG) LOW DOSE SLIDING SCALE AC HS SUBQ Benzonatate (TESSALON PERLE) 100 MG TID PRN PRN PO Benzocaine/Menthol (Cepacol Sore Throat Lozenge) 1 EACH Q4H PRN PRN MM Clopidogrel Bisulfate (PLAVIX) 75 MG DAILY PO Mupirocin (BACTROBAN NASAL - ADULT ICU) 1 APPLIC BID NASAL Potassium Cl/Dextrose/Lact Ringer's (NS 0.45% WITH 20MEQ KCL) 1,000 ML .[id number] IV (DC) Calcium Gluconate (CALCIUM GLUCONATE 10%) 1,000 MG ASDIR PRN IV Sodium Chloride (SODIUM CHLORIDE 0.9%) 100 MLDextrose/Water (DEXTROSE 50% IN WATER) 12.5 GM ASDIR PRN IV Dextrose/Water (DEXTROSE 50% IN WATER) 25 GM ASDIR PRN IV Dobutamine HCl/Dextrose (DOBUTamine HCL IN DEXTROSE) 250 ML ASDIR PRN IV Epinephrine (EPINEPHrine/NS 4MG/250ML) 250 ML ASDIR PRN IV Hydrocodone Bitart/Acetaminophen (NORCO 5/325 TABLET (C-II)) 1 TAB Q4H PRN PRN PO Lidocaine HCl/Dextrose (LIDOCAINE HCL IN 5% DEXTROSE) 500 ML ASDIR PRN IV (CKD) Magnesium Sulfate (MAG SULFATE 2GM PREMIX) 50 ML ASDIR PRN IV Magnesium Sulfate/Dextrose (Magnesium Sulfate) 100 ML ASDIR PRN IV Meperidine HCl (DEMEROL (C-II)) 12.5 MG Q6H PRN PRN IM Morphine Sulfate (morphine SULFATE (C-II)) 2 MG Q15M PRN PRN IV Ondansetron HCl (ZOFRAN) 4 MG Q8H PRN PRN IV Potassium Chloride (Potassium Chloride) 50 ML ASDIR PRN IV Sodium Bicarbonate (SODIUM BICARBONATE) 4.2 GM ASDIR PRN IV (CKD) Dextrose/Water (DEXTROSE 50% IN WATER) 12.5 GM ASDIR PRN IV Dextrose/Water (DEXTROSE 50% IN WATER) 25 GM ASDIR PRN IV Insulin Human Regular (HUMULIN R) 100 UNIT ASDIR IV (CKD) Sodium Chloride (SODIUM CHLORIDE 0.9%) 99 MLNicardipine HCl (CARDENE I.V.) 25 MG ASDIR IV (CKD) Sodium Chloride (SODIUM CHLORIDE 0.9%) 250 MLAspirin (ASPIRIN EC) 81 MG DAILY PO Levothyroxine Sodium (Synthroid) 100 MCG DAILY PO Atorvastatin Calcium (LIPITOR) 80 MG BEDTIME PO Clotrimazole (LOTRIMIN) 1 ROLDAN BID TOPICAL (CKD) Oxybutynin Chloride (DITROPAN) 5 MG BEDTIME PO Tamsulosin HCl (FLOMAX) 0.4 MG BID PO Finasteride (PROSCAR) 5 MG DAILY PO Ondansetron HCl (ZOFRAN) 4 MG Q8H PRN PRN IV Nutrition assessment:The data set between the solid lines has been imported from the dietitian's assessment. Any exceptions have been noted under Provider comments. BMI Calculated: 32.5Nutrition related diagnosis: ObeseNutrition diagnosis details: BMI 30-39.9Nutrition problem: KNOWLEDGE DEFICITNutrition etiology: CARDIAC HEALTH AND DIETNutrition signs and symptoms: MD CONSULT FOR HEART HEALTHY , DIET EDUCATIONNutrition prescription: WHEN MEDICALLY APPROPRIATE, ADVANCE DIET TOLERATED FROM DIABETIC CLEAR LIQUID TO DIABETIC FULL LIQUID DIABETIC TO DIABETIC/NUTRITIONALLY ADEQUATE DIET. RDN TO FOLLOW UP AND EDUCATE PT ON HEART HEALTHY DIET WHEN HIS VISITS REQUESTED.Dietitian name: Ava Benito, DIETAssessment completed: 03/31/21 Provider comments on imported dietitian assessment: Physical ExamGeneral appearance: alert, awake, orientedHead/Eyes: atraumatic, normal conjunctiva/scleraENT: moist mucosal membranesNeck: full range of motion, supple/no meningismusCardiovascular: irregular rhythm (FREQUENT PVCS), tachycardic, normal capillary refill, normal heart sounds, no murmurRespiratory: chest tube, on oxygen (NC), aerating well, clear to auscultation, symmetric expansion, no distressAbdomen: distended, non-tender, normal bowel sounds, softGenitourinary: foleyNeuro/HUMAN RESOURCES LEADER: alert, oriented X 3, CNII-XII intactSkin: dry, normal temperatureWound/incision: Location: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, DRESSING CDI ResultsFindings/Data:Laboratory Tests 04/02 04/02 04/02 04/02 04/03 1110 1631 2034 2348 0725 Chemistry Potassium (3.5 - 5.1 MMOL/L) 4.3 POC Glucose (60 - 99 MG/DL) 184 H 196 H 179 H 258 H Calcium (8.4 - 10.2 MG/DL) 7.4 L Magnesium (1.6 - 2.3 MG/DL) 2.4 H 04/03 0823 Chemistry Potassium (3.5 - 5.1 MMOL/L) 4.3 Calcium (8.4 - 10.2 MG/DL) 7.8 L Magnesium (1.6 - 2.3 MG/DL) 2.4 H Laboratory Tests 04/03 0823 Hematology Hgb (12.4 - 16.7 G/DL) 8.2 L Hct (35.9 - 49.5 %) 24.8 L Radiology data:Recent Impressions:RADIOLOGY - XR CHEST 1V 04/03 611 Report Impression - Status: SIGNED Entered: 04/03/2021 0801 IMPRESSION: Subclavian catheter terminates at SVC. Unchanged enlarged cardiacsilhouette. No significant change in mild bibasilar interstitial edema orpneumonia and trace left pleural effusion. No pneumothorax.Impression By: [email or web address] - Kwame Calloway MD Results: labs reviewed, current med profile rev'd Diagnosis, Assessment PlanProblem List/A P: 1. S/P CABG (coronary artery bypass graft) 2. Coronary artery disease 3. Hypertension 4. Hyperlipidemia 5. Diabetes 6. Peripheral artery disease 7. Tinea pedis 8. Obesity 9. Hypothyroidism 10. Benign prostatic hyperplasia 11. Anemia Free Text DxA P NotesFree text DxA P notes:81 y/o M significant PMH HTN, HLD, 90 pack-year smoking hx, DM2, CAD, PAD, frequent SVT/PVC, neuropathy presented after angina, severe CAD on cath. Scheduled for CABG 03/31. 03/30/21:- Severe blockages in multiple vessels requiring CABG as per cath report- Currently asx- Multiple labs ordered as per CV surgery including CBC/CMP/coag studies WNL- NPO after midnight for surgery, Continue anticoagulation/abx/medications as per cardiovascular - Hold metoprolol 50 BID due to hypotension- Continue losartan 100 daily, Continue nitro patch q6H, Consider restart amlodipine 5 AM 2.5 PM if remains HTN- Continue Atorvastatin 80 daily- Continue levothyroxine 100 mcg daily- Hold metformin 1000 daily, Continue linagliptin 5 daily, Continue glimepiride 4 daily, Begin glucose monitoring w/ SSI- Continue tamsulosin 0.4 daily, Continue finasteride 5 mg daily, Continue oxybutynin 5 daily- White rash between multiple toes, moreso on L foot- Continue terbinafine cream BID 03/31/21:-Patient to OR for CABG today-Plan per CV team 04/01/21:-CABG postop 1-Plan per CV team 04/02/21:-CABG postop 2-c/o constipation, gas so was rx'd 1x lactulose 30g, simethicone-Otherwise plan per CV team 04/03/21:-CABG postop 3-had bowel movement yesterday-pt currently tachycardic, CV surgery team aware and actively managing-Otherwise plan per CV team Code: FULLDVT: Lovenox BIDDiet: per CV team Quality: Gen Med Crit Care VTE ProphylaxisVTE prophylaxis initiated: yes Current MedicationsCurrent medication review:I attest that the foregoing medication list in the medical record is true, accurate, and complete to the best of my knowledge. Advanced Care Plan 65 or OlderDiscussed with: patientDiscussion included: code status (full code) Aisha Lucas 04/03/21 1531:Attestations Teaching Physician AttestationF/U visit w/ resident:I saw the patient with the resident and . . . agree with the resident's findings and plan. HR better after digoxin and metoprololcont to monitor dvt ppx: per [facility] at 1515 at 1532 RPT #:[id number] OF REPORTPRProgress [id number]:57:[id number] for patient [id number]:16:20 2021-04-03 [id number]:09:00 [facility] 09:09:00 [facility] ([facility])Cardiology Progress NoteREPORT#:[id number] REPORT STATUS: SignedDATE:04/03/21 TIME: 908 PATIENT: COLE JEFFREY UNIT #: [id number]#: [id number] [address]: [address] AGE: 81 SEX: M ATTEND: Aisha Lucas [facility] AUTHOR: Ruiz Bhatti MD * ALL edits or amendments must be made on the electronic/computer document * SubjectiveChief Complaint:CADPatient reports:No: chest pain, palpitations, shortness of breath. Objective GeneralVS/I O:24 hour I O ending at 0700: 04/03 0700 04/02 1900 Intake Total 733.10 1030.00 Output Total 510 430 Balance 223.10 600.00 Intake, IV 433.10 100.00 Intake, Oral 300 930 Number 1 Bowel Movements Output, Chest 60 80 Tube Drainage Output, Urine 450 350 Vital Signs: Date Time Temp Pulse Resp B/P B/P Pulse O2 O2 Flow FiO2 Mean Ox Delivery Rate 04/03 0725 97.8 04/03 0725 Nasal 2 cannula 04/03 0557 136 16 96 04/03 0545 138 19 97 04/03 0535 140 17 97 04/03 0530 140 97 04/03 0515 141 23 04/03 0500 140 21 135/63 86 96 04/03 0445 139 23 04/03 0415 137 23 98 04/03 0400 98.6 04/03 0400 137 21 93/63 74 98 04/03 0345 139 20 97 04/03 0330 139 21 97 04/03 0315 140 23 04/03 0300 142 21 106/59 77 98 04/03 0245 143 23 78 04/03 0244 140 24 110/57 78 83 04/03 0230 140 23 98 04/03 0215 143 11 99 04/03 0200 147 14 100 04/03 0145 148 22 99 04/03 0130 148 21 98 04/03 0115 154 21 04/03 0100 151 21 99 04/03 0045 154 21 99 04/03 0030 162 22 100 04/03 0015 80 16 100 04/03 0000 98.6 04/03 0000 79 20 100 04/02 2345 93 18 100 04/02 2330 83 13 100 04/02 2315 81 20 100 04/02 2300 80 19 99 04/02 2245 80 19 100 04/02 2230 79 20 100 04/02 2215 81 20 100 04/02 2200 84 20 100 04/025 85 21 100 04/020 79 19 100 04/025 81 20 100 04/02 2100 80 19 100 04/02 2045 83 20 100 04/02 2030 81 19 100 04/02 2015 81 20 100 04/02 2000 82 22 100 04/02 1945 85 23 100 04/02 1930 Nasal 2 cannula 04/02 193 100 Nasal 2 28 cannula 04/02 1930 98.6 80 16 143/43 76 100 Nasal 2 cannula 04/02 1915 82 20 98 04/02 1900 85 25 98 04/02 1830 87 24 100 04/02 1745 90 04/02 1700 87 100 04/02 1630 86 98 04/02 1600 84 23 04/02 1530 84 16 100 04/02 1515 88 22 99 04/02 1512 98.2 86 20 99 Nasal 2 cannula 04/02 1445 85 19 100 04/02 1430 84 16 100 04/02 1400 89 23 99 04/02 1330 89 100 04/02 1300 88 19 100 04/02 1230 88 99 04/02 1200 97 100 04/02 1130 85 99 04/02 1115 98.0 88 18 98 Nasal 2 cannula 04/02 1100 82 19 100 04/02 1045 81 100 04/02 1031 100 Nasal 2 28 cannula 04/02 1030 87 22 100 04/02 1015 83 24 100 04/02 1000 87 100 04/02 0945 86 20 99 PATIENT WEIGHT: Weight (lb): 240Weight (oz): 8.07Weight (kg): 108.862 Medications:Active Meds + DC'd Last 24 HrsGabapentin (NEURONTIN) 100 MG 2100 PO Furosemide (LASIX) 40 MG ONCE ONE IV Digoxin (LANOXIN) 0.5 MG NOW ONE IV (DC) Amiodarone HCl (Nexterone PREMIX DRIP) 200 ML ASDIR IV (CKD) Digoxin (LANOXIN) 0.25 MG NOW ONE IV (DC) Furosemide (LASIX) 20 MG ONCE ONE IV (DC) Lactulose (CHRONULAC) 30 GM NOW ONE PO (DC) Simethicone (MYLICON 80MG) 160 MG Q6H PRN PRN PO Polyethylene Glycol (MIRALAX) 17 GM BID PRN PO Docusate Sodium (COLACE) 100 MG BID PO Famotidine (PEPCID) 20 MG BID PO Ferrous Sulfate (FEOSOL) 325 MG BID PO Insulin Human Lispro (HumaLOG) LOW DOSE SLIDING SCALE AC HS SUBQ Benzonatate (TESSALON PERLE) 100 MG TID PRN PRN PO Benzocaine/Menthol (Cepacol Sore Throat Lozenge) 1 EACH Q4H PRN PRN MM Clopidogrel Bisulfate (PLAVIX) 75 MG DAILY PO Mupirocin (BACTROBAN NASAL - ADULT ICU) 1 APPLIC BID NASAL Potassium Cl/Dextrose/Lact Ringer's (NS 0.45% WITH 20MEQ KCL) 1,000 ML .[id number] IV (DC) Calcium Gluconate (CALCIUM GLUCONATE 10%) 1,000 MG ASDIR PRN IV Sodium Chloride (SODIUM CHLORIDE 0.9%) 100 MLDextrose/Water (DEXTROSE 50% IN WATER) 12.5 GM ASDIR PRN IV Dextrose/Water (DEXTROSE 50% IN WATER) 25 GM ASDIR PRN IV Dobutamine HCl/Dextrose (DOBUTamine HCL IN DEXTROSE) 250 ML ASDIR PRN IV Epinephrine (EPINEPHrine/NS 4MG/250ML) 250 ML ASDIR PRN IV Hydrocodone Bitart/Acetaminophen (NORCO 5/325 TABLET (C-II)) 1 TAB Q4H PRN PRN PO Lidocaine HCl/Dextrose (LIDOCAINE HCL IN 5% DEXTROSE) 500 ML ASDIR PRN IV (CKD) Magnesium Sulfate (MAG SULFATE 2GM PREMIX) 50 ML ASDIR PRN IV Magnesium Sulfate/Dextrose (Magnesium Sulfate) 100 ML ASDIR PRN IV Meperidine HCl (DEMEROL (C-II)) 12.5 MG Q6H PRN PRN IM Morphine Sulfate (morphine SULFATE (C-II)) 2 MG Q15M PRN PRN IV Ondansetron HCl (ZOFRAN) 4 MG Q8H PRN PRN IV Potassium Chloride (Potassium Chloride) 50 ML ASDIR PRN IV Sodium Bicarbonate (SODIUM BICARBONATE) 4.2 GM ASDIR PRN IV (CKD) Dextrose/Water (DEXTROSE 50% IN WATER) 12.5 GM ASDIR PRN IV Dextrose/Water (DEXTROSE 50% IN WATER) 25 GM ASDIR PRN IV Insulin Human Regular (HUMULIN R) 100 UNIT ASDIR IV (CKD) Sodium Chloride (SODIUM CHLORIDE 0.9%) 99 MLNicardipine HCl (CARDENE I.V.) 25 MG ASDIR IV (CKD) Sodium Chloride (SODIUM CHLORIDE 0.9%) 250 MLAspirin (ASPIRIN EC) 81 MG DAILY PO Levothyroxine Sodium (Synthroid) 100 MCG DAILY PO Atorvastatin Calcium (LIPITOR) 80 MG BEDTIME PO Clotrimazole (LOTRIMIN) 1 ROLDAN BID TOPICAL (CKD) Oxybutynin Chloride (DITROPAN) 5 MG BEDTIME PO Tamsulosin HCl (FLOMAX) 0.4 MG BID PO Finasteride (PROSCAR) 5 MG DAILY PO Ondansetron HCl (ZOFRAN) 4 MG Q8H PRN PRN IV Physical ExamGeneral appearance: alert, awake, orientedHead/Eyes: atraumatic, normocephalicENT: moist mucosal membranesNeck: no JVDCardiovascular: CV assessment: regular rate and rhythmRespiratory: crackles, decreased breath sounds, no distressLower extremity: LE assessment: Trace edema.Musculoskeletal: full range of motionNeuro/HUMAN RESOURCES LEADER: alert, oriented X 3, CN II-XII intactSkin: dry, intactWound/incision: Location:Sternal Site condition: dressing clean dryPsychiatry: normal affect, normal judgment/insight, normal mood Diagnosis, Assessment Plan Free Text DxA P NotesFree Text DxA P Notes:IMP: 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 Volume overload HLP DM AFIB with RVR PLAN: Continue medical rx. Lasix Load digoxin Ambulate IS at 0912 RPT #:[id number] OF REPORTPRProgress [id number]:09:[id number] for patient [id number]:13:01 2021-04-03 [id number]:17:00 [facility] 08:17:00 [facility] ([facility])Cardiology Progress NoteREPORT#:[id number] REPORT STATUS: SignedDATE:04/03/21 TIME: 816 PATIENT: COLE JEFFREY [facility] [place] UNIT #: [id number]#: [id number] [address]: [address] AGE: 81 SEX: M ATTEND: A[facility] AUTHOR: Ruiz Bhatti MD * ALL edits or amendments must be made on the electronic/computer document * SubjectiveChief Complaint:CADPatient reports:No: chest pain, palpitations, shortness of breath. Objective GeneralVS/I O:24 hour I O ending at 0700: 04/03 0700 04/02 1900 Intake Total 733.10 1030.00 Output Total 510 430 Balance 223.10 600.00 Intake, IV 433.10 100.00 Intake, Oral 300 930 Number 1 Bowel Movements Output, Chest 60 80 Tube Drainage Output, Urine 450 350 Vital Signs: Date Time Temp Pulse Resp B/P B/P Pulse O2 O2 Flow FiO2 Mean Ox Delivery Rate 04/03 0725 97.8 04/03 0725 Nasal 2 cannula 04/03 0557 136 16 96 04/03 0545 138 19 97 04/03 0535 140 17 97 04/03 0530 140 97 04/03 0515 141 23 04/03 0500 140 21 135/63 86 96 04/03 0445 139 23 04/03 0415 137 23 98 04/03 0400 98.6 04/03 0400 137 21 93/63 74 98 04/03 0345 139 20 97 04/03 0330 139 21 97 04/03 0315 140 23 04/03 0300 142 21 106/59 77 98 04/03 0245 143 23 78 04/03 0244 140 24 110/57 78 83 04/03 0230 140 23 98 04/03 0215 143 11 99 04/03 0200 147 14 100 04/03 0145 148 22 99 04/03 0130 148 21 98 04/03 0115 154 21 04/03 0100 151 21 99 04/03 0045 154 21 99 04/03 0030 162 22 100 04/03 0015 80 16 100 04/03 0000 98.6 04/03 0000 79 20 100 04/02 2345 93 18 100 04/02 2330 83 13 100 04/02 2315 81 20 100 04/02 2300 80 19 99 04/02 2245 80 19 100 04/02 2230 79 20 100 04/02 2215 81 20 100 04/02 2200 84 20 100 04/025 85 21 100 04/020 79 19 100 04/02 2115 81 20 100 04/02 2100 80 19 100 04/02 2045 83 20 100 04/02 2030 81 19 100 04/02 2015 81 20 100 04/02 2000 82 22 100 04/02 1945 85 23 100 04/02 1930 Nasal 2 cannula 04/02 193 100 Nasal 2 28 cannula 04/02 1930 98.6 80 16 143/43 76 100 Nasal 2 cannula 04/02 1915 82 20 98 04/02 1900 85 25 98 04/02 1830 87 24 100 04/02 1745 90 04/02 1700 87 100 04/02 1630 86 98 04/02 1600 84 23 04/02 1530 84 16 100 04/02 1515 88 22 99 04/02 1512 98.2 86 20 99 Nasal 2 cannula 04/02 1445 85 19 100 04/02 1430 84 16 100 04/02 1400 89 23 99 04/02 1330 89 100 04/02 1300 88 19 100 04/02 1230 88 99 04/02 1200 97 100 04/02 1130 85 99 04/02 1115 98.0 88 18 98 Nasal 2 cannula 04/02 1100 82 19 100 04/02 1045 81 100 04/02 1031 100 Nasal 2 28 cannula 04/02 1030 87 22 100 04/02 1015 83 24 100 04/02 1000 87 100 04/02 0945 86 20 99 04/02 0900 81 19 100 04/02 0845 85 19 98 04/02 0830 80 26 99 PATIENT WEIGHT: Weight (lb): 240Weight (oz): 8.07Weight (kg): 108.862 Medications:Active Meds + DC'd Last 24 HrsGabapentin (NEURONTIN) 100 MG 2100 PO Amiodarone HCl (Nexterone PREMIX DRIP) 200 ML ASDIR IV (CKD) Digoxin (LANOXIN) 0.25 MG NOW ONE IV (DC) Furosemide (LASIX) 20 MG ONCE ONE IV (DC) Lactulose (CHRONULAC) 30 GM NOW ONE PO (DC) Simethicone (MYLICON 80MG) 160 MG Q6H PRN PRN PO Polyethylene Glycol (MIRALAX) 17 GM BID PRN PO Docusate Sodium (COLACE) 100 MG BID PO Famotidine (PEPCID) 20 MG BID PO Ferrous Sulfate (FEOSOL) 325 MG BID PO Insulin Human Lispro (HumaLOG) LOW DOSE SLIDING SCALE AC HS SUBQ Benzonatate (TESSALON PERLE) 100 MG TID PRN PRN PO Benzocaine/Menthol (Cepacol Sore Throat Lozenge) 1 EACH Q4H PRN PRN MM Clopidogrel Bisulfate (PLAVIX) 75 MG DAILY PO Mupirocin (BACTROBAN NASAL - ADULT ICU) 1 APPLIC BID NASAL Potassium Cl/Dextrose/Lact Ringer's (NS 0.45% WITH 20MEQ KCL) 1,000 ML .[id number] IV (DC) Calcium Gluconate (CALCIUM GLUCONATE 10%) 1,000 MG ASDIR PRN IV Sodium Chloride (SODIUM CHLORIDE 0.9%) 100 MLDextrose/Water (DEXTROSE 50% IN WATER) 12.5 GM ASDIR PRN IV Dextrose/Water (DEXTROSE 50% IN WATER) 25 GM ASDIR PRN IV Dobutamine HCl/Dextrose (DOBUTamine HCL IN DEXTROSE) 250 ML ASDIR PRN IV Epinephrine (EPINEPHrine/NS 4MG/250ML) 250 ML ASDIR PRN IV Hydrocodone Bitart/Acetaminophen (NORCO 5/325 TABLET (C-II)) 1 TAB Q4H PRN PRN PO Lidocaine HCl/Dextrose (LIDOCAINE HCL IN 5% DEXTROSE) 500 ML ASDIR PRN IV (CKD) Magnesium Sulfate (MAG SULFATE 2GM PREMIX) 50 ML ASDIR PRN IV Magnesium Sulfate/Dextrose (Magnesium Sulfate) 100 ML ASDIR PRN IV Meperidine HCl (DEMEROL (C-II)) 12.5 MG Q6H PRN PRN IM Morphine Sulfate (morphine SULFATE (C-II)) 2 MG Q15M PRN PRN IV Ondansetron HCl (ZOFRAN) 4 MG Q8H PRN PRN IV Potassium Chloride (Potassium Chloride) 50 ML ASDIR PRN IV Sodium Bicarbonate (SODIUM BICARBONATE) 4.2 GM ASDIR PRN IV (CKD) Dextrose/Water (DEXTROSE 50% IN WATER) 12.5 GM ASDIR PRN IV Dextrose/Water (DEXTROSE 50% IN WATER) 25 GM ASDIR PRN IV Insulin Human Regular (HUMULIN R) 100 UNIT ASDIR IV (CKD) Sodium Chloride (SODIUM CHLORIDE 0.9%) 99 MLNicardipine HCl (CARDENE I.V.) 25 MG ASDIR IV (CKD) Sodium Chloride (SODIUM CHLORIDE 0.9%) 250 MLAspirin (ASPIRIN EC) 81 MG DAILY PO Levothyroxine Sodium (Synthroid) 100 MCG DAILY PO Atorvastatin Calcium (LIPITOR) 80 MG BEDTIME PO Clotrimazole (LOTRIMIN) 1 ROLDAN BID TOPICAL (CKD) Oxybutynin Chloride (DITROPAN) 5 MG BEDTIME PO Tamsulosin HCl (FLOMAX) 0.4 MG BID PO Finasteride (PROSCAR) 5 MG DAILY PO Ondansetron HCl (ZOFRAN) 4 MG Q8H PRN PRN IV Physical ExamGeneral appearance: alert, awake, orientedHead/Eyes: atraumatic, normocephalicENT: moist mucosal membranesNeck: no JVDCardiovascular: CV assessment: regular rate and rhythmRespiratory: decreased breath sounds, no distressLower extremity: LE assessment: no edemaMusculoskeletal: full range of motionNeuro/HUMAN RESOURCES LEADER: alert, oriented X 3, CN II-XII intactSkin: dry, intactWound/incision: Location:Sternal Site condition: dressing clean dryPsychiatry: normal affect, normal judgment/insight, normal mood ResultsFindings/Data:Laboratory Tests 04/03 04/02 04/02 04/02 04/02 0725 2348 2034 1631 1110 Chemistry Potassium (3.5 - 5.1 MMOL/L) 4.3 POC Glucose (60 - 99 MG/DL) 258 H 179 H 196 H 184 H Calcium (8.4 - 10.2 MG/DL) 7.4 L Magnesium (1.6 - 2.3 MG/DL) 2.4 H Laboratory Tests 04/02 2348 Chemistry Magnesium (1.6 - 2.3 MG/DL) 2.4 H Radiology data:Recent Impressions:RADIOLOGY - XR CHEST 1V 04/03 0611 Report Impression - Status: SIGNED Entered: 04/03/2021 0801 IMPRESSION: Subclavian catheter terminates at SVC. Unchanged enlarged cardiacsilhouette. No significant change in mild bibasilar interstitial edema orpneumonia and trace left pleural effusion. 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 Volume overload HLP DM AFIB with RVR PLAN: Continue medical rx. Lasix Load digoxin Ambulate IS at 0912 [facility] #:[id number] OF REPORTPRProgress [id number]:00Z.[id number] for patient [id number]:12:50 2021-04-03 [id number] [facility] 06:07:[address] [address] PATIENT NAME: COLE JEFFREY ADMIT DATE: 03/28/21ACCOUNT NO: [id number] ROOM NO: Z.SI02 AGE: 81 REPORT TYPE: ELECTROCARDIOGRAM SEX: M ADMITTING PHYSICIAN:Aisha Lucas MD ATTENDING PHYSICIAN:Aisha Lucas MD Order:[id number] Reason : CAD/CAB Test Date/Time Stamp:TueApr 03 2021 06:07:01Blood Pressure : / mmHGVent. Rate : 139 BPM Atrial Rate : 141 BPM P-R Int : 000 ms QRS Dur : 150 ms QT Int : 362 ms P-R-T Axes : 000 -47 088 degrees QTc Int : 550 ms Atrial fibrillation with rapid ventricular response with premature ventricularor aberrantly conducted complexesRight bundle branch blockLeft anterior fascicular block Bifascicular block T wave abnormality, consider lateral ischemia or digitalis effectAbnormal ECGWhen compared with ECG of 02-APR-2021 10:13,Atrial fibrillation has replaced Electronic ventricular pacemakerVent. rate has increased BY 53 BPMConfirmed by NONI MARQUEZ ([id number]) on 04/03/2021 7:19:38 AM Referred By: Aisha Lucas Confirmed by:NONI MARQUEZ at 0719 PATIENT NAME: COLE JEFFREY .[id number] for patient [id number]:20:06 2021-04-03 [id number] [facility] 06:07:00 [address] [place] [address] PATIENT NAME: COLE JEFFREY ADMIT DATE: 03/28/21ACCOUNT NO: [id number] ROOM NO: Z.SI02 AGE: 81 REPORT TYPE: ELECTROCARDIOGRAM SEX: M ADMITTING PHYSICIAN:Aisha Lucas MD ATTENDING PHYSICIAN:Aisha Lucas MD Order:[id number] Reason : CAD/CAB Test Date/Time Stamp:TueApr 03 2021 06:07:01Blood Pressure : / mmHGVent. Rate : 139 BPM Atrial Rate : 141 BPM P-R Int : 000 ms QRS Dur : 150 ms QT Int : 362 ms P-R-T Axes : 000 -47 088 degrees QTc Int : 550 ms Atrial fibrillation with rapid ventricular response with premature ventricularor aberrantly conducted complexesRight bundle branch blockLeft anterior fascicular block Bifascicular block T wave abnormality, consider lateral ischemia or digitalis effectAbnormal ECGWhen compared with ECG of 02-APR-2021 10:13,Atrial fibrillation has replaced Electronic ventricular pacemakerVent. rate has increased BY 53 BPMConfirmed by NONI MARQUEZ ([id number]) on 04/03/2021 1:00:56 PM Referred By: Aisha Lucas Confirmed by:NONI MARQUEZ at 1300 PATIENT NAME: COLE JEFFREY .[id number] for patient [id number]:01:2021-04-02 [id number]:15:00 [facility]CAWU 18:15:00 [facility] ([facility])Cardiology Progress NoteREPORT#:[id number] REPORT STATUS: SignedDATE:04/02/21 TIME: 1814 PATIENT: COLE JEFFREY UNIT #: [id number]#: [id number] [address] AGE: 81 SEX: M ATTEND: Aisha Lucas [facility] AUTHOR: Ruiz Bhatti MD * ALL edits or amendments must be made on the electronic/computer document * SubjectiveChief Complaint:CADPatient reports:No: chest pain, palpitations, shortness of breath. Objective GeneralVS/I O:24 hour I O ending at 0700: 04/02 0700 04/01 1900 Intake Total 700.00 1925.50 Output Total 650 570 Balance 50.00 1355.50 Intake, IV 100.00 595.50 Intake, Oral 600 1330 Output, Chest 250 170 Tube Drainage Output, Urine 400 400 Patient 108.862 kg Weight Vital Signs: Date Time Temp Pulse Resp B/P B/P Pulse O2 O2 Flow FiO2 Mean Ox Delivery Rate 04/02 1600 84 23 04/02 1530 84 16 100 04/02 1515 88 22 99 04/02 1512 98.2 86 20 99 Nasal 2 cannula 04/02 1445 85 19 100 04/02 1430 84 16 100 04/02 1400 89 23 99 04/02 1330 89 100 04/02 1300 88 19 100 04/02 1230 88 99 04/02 1200 97 100 04/02 1130 85 99 04/02 1115 98.0 88 18 98 Nasal 2 cannula 04/02 1100 82 19 100 04/02 1045 81 100 04/02 1031 100 Nasal 2 28 cannula 04/02 1030 87 22 100 04/02 1015 83 24 100 04/02 1000 87 100 04/02 0945 86 20 99 04/02 0900 81 19 100 04/02 0845 85 19 98 04/02 0830 80 26 99 04/02 0815 81 24 99 04/02 0800 80 16 100 04/02 0800 98.0 81 18 100 Nasal 2 cannula 04/02 0745 80 20 100 04/02 0730 Nasal 3 cannula 04/02 0730 80 18 99 04/02 0715 83 99 04/02 0700 81 100 04/02 0400 98.1 04/02 0145 80 20 100 04/02 0130 80 20 100 04/02 0115 80 18 100 04/02 0100 79 100 04/02 0045 83 99 04/02 0030 83 100 04/02 0015 80 20 97 04/02 0000 97.5 04/02 0000 84 99 04/01 2345 80 21 99 10 2330 80 19 100 04/01 2315 80 19 100 04/01 2300 81 19 100 04/01 2245 80 15 95 04/01 2230 80 19 94 04/01 2215 80 17 94 04/01 2200 80 99 04/01 2145 80 19 99 04/01 2130 79 99 04/01 2115 80 14 99 04/01 2100 80 21 100 04/01 2045 80 12 100 04/01 2030 80 18 100 04/01 2015 97.4 04/01 2015 Nasal 3 cannula 04/01 2015 79 19 99 10 1957 85 21 10 1945 80 99 04/01 1930 80 12 99 04/01 1915 80 20 100 10 1900 80 20 100 10 1830 100 Nasal 5 40 cannula 04/01 1824 84 95 PATIENT WEIGHT: Weight (lb): 240Weight (oz): 8.07Weight (kg): 108.862 Medications:Active Meds + DC'd Last 24 HrsGabapentin (NEURONTIN) 100 MG 2100 PO Lactulose (CHRONULAC) 30 GM NOW ONE PO (DC) Simethicone (MYLICON 80MG) 160 MG Q6H PRN PRN PO Polyethylene Glycol (MIRALAX) 17 GM BID PRN PO Docusate Sodium (COLACE) 100 MG BID PO Famotidine (PEPCID) 20 MG BID PO Ferrous Sulfate (FEOSOL) 325 MG BID PO Insulin Human Lispro (HumaLOG) LOW DOSE SLIDING SCALE AC HS SUBQ Benzonatate (TESSALON PERLE) 100 MG TID PRN PRN PO Benzocaine/Menthol (Cepacol Sore Throat Lozenge) 1 EACH Q4H PRN PRN MM Clopidogrel Bisulfate (PLAVIX) 75 MG DAILY PO Mupirocin (BACTROBAN NASAL - ADULT ICU) 1 APPLIC BID NASAL Potassium Cl/Dextrose/Lact Ringer's (NS 0.45% WITH 20MEQ KCL) 1,000 ML .[id number] IV Calcium Gluconate (CALCIUM GLUCONATE 10%) 1,000 MG ASDIR PRN IV Sodium Chloride (SODIUM CHLORIDE 0.9%) 100 MLDextrose/Water (DEXTROSE 50% IN WATER) 12.5 GM ASDIR PRN IV Dextrose/Water (DEXTROSE 50% IN WATER) 25 GM ASDIR PRN IV Dobutamine HCl/Dextrose (DOBUTamine HCL IN DEXTROSE) 250 ML ASDIR PRN IV Epinephrine (EPINEPHrine/NS 4MG/250ML) 250 ML ASDIR PRN IV Hydrocodone Bitart/Acetaminophen (NORCO 5/325 TABLET (C-II)) 1 TAB Q4H PRN PRN PO Lidocaine HCl/Dextrose (LIDOCAINE HCL IN 5% DEXTROSE) 500 ML ASDIR PRN IV (CKD) Magnesium Sulfate (MAG SULFATE 2GM PREMIX) 50 ML ASDIR PRN IV Magnesium Sulfate/Dextrose (Magnesium Sulfate) 100 ML ASDIR PRN IV Meperidine HCl (DEMEROL (C-II)) 12.5 MG Q6H PRN PRN IM Morphine Sulfate (morphine SULFATE (C-II)) 2 MG Q15M PRN PRN IV Ondansetron HCl (ZOFRAN) 4 MG Q8H PRN PRN IV Potassium Chloride (Potassium Chloride) 50 ML ASDIR PRN IV Cefuroxime Sodium (ZINACEF) 1,500 MG Q8H IV (DC) Sodium Bicarbonate (SODIUM BICARBONATE) 4.2 GM ASDIR PRN IV (CKD) Dextrose/Water (DEXTROSE 50% IN WATER) 12.5 GM ASDIR PRN IV Dextrose/Water (DEXTROSE 50% IN WATER) 25 GM ASDIR PRN IV Insulin Human Regular (HUMULIN R) 100 UNIT ASDIR IV (CKD) Sodium Chloride (SODIUM CHLORIDE 0.9%) 99 MLNicardipine HCl (CARDENE I.V.) 25 MG ASDIR IV (CKD) Sodium Chloride (SODIUM CHLORIDE 0.9%) 250 MLAspirin (ASPIRIN EC) 81 MG DAILY PO Levothyroxine Sodium (Synthroid) 100 MCG DAILY PO Atorvastatin Calcium (LIPITOR) 80 MG BEDTIME PO Clotrimazole (LOTRIMIN) 1 ROLDAN BID TOPICAL (CKD) Oxybutynin Chloride (DITROPAN) 5 MG BEDTIME PO Tamsulosin HCl (FLOMAX) 0.4 MG BID PO Finasteride (PROSCAR) 5 MG DAILY PO Ondansetron HCl (ZOFRAN) 4 MG Q8H PRN PRN IV Physical ExamGeneral appearance: alert, awake, orientedHead/Eyes: atraumatic, normocephalicENT: moist mucosal membranesNeck: no JVDCardiovascular: CV assessment: regular rate and rhythmRespiratory: decreased breath sounds, no distressLower extremity: LE assessment: no edemaMusculoskeletal: full range of motionNeuro/HUMAN RESOURCES LEADER: alert, oriented X 3, CN II-XII intactSkin: dry, intactWound/incision: Location:Sternal Site condition: dressing clean dryPsychiatry: normal affect, normal judgment/insight, normal mood ResultsFindings/Data:Laboratory Tests 04/02 04/02 04/02 04/02 04/01 1631 1110 0805 0715 2047 Chemistry Sodium (137 - 145 MMOL/L) 132 L Potassium (3.5 - 5.1 MMOL/L) 4.7 Chloride (98 - 107 MMOL/L) 103 Carbon Dioxide (22 - 30 MMOL/L) 25 Anion Gap (14 - 24 MMOL/L) 9 L BUN (9 - 20 MG/DL) 24 H Creatinine (0.66 - 1.25 MG/DL) 1.00 Glomerular Filtr Rate > 60 Glucose (74 - 106 MG/DL) 157 H POC Glucose (60 - 99 MG/DL) 196 H 184 H 166 H 181 H Calcium (8.4 - 10.2 MG/DL) 7.8 L Laboratory Tests 04/02 0715 Hematology WBC (3.8 - 9.8 K/MM3) 21.0 H RBC (3.95 - 5.67 M/MM3) 2.93 L Hgb (12.4 - 16.7 G/DL) 8.6 L Hct (35.9 - 49.5 %) 25.9 L MCV (81.7 - 96.1 fL) 88 MCH (27.6 - 33.2 pg) 29.4 MCHC (32.9 - 35.5 %) 33.2 RDW (12.1 - 15.2 %) 15.1 Plt Count (129 - 368 K/MM3) 145 MPV (7.4 - 10.4 fl) 11.1 H Neut % (Auto) (43 - 75 %) 79.8 H Lymph % (Auto) (14 - 44 %) 8.2 L Ocean % (Auto) (4 - 13 %) 10.4 Eos % (Auto) (0 - 6 %) 0.1 Baso % (Auto) (0 - 2 %) 0.2 Neut # (Auto) (2.0 - 7.6 K/mm3) 16.79 H Lymph # (Auto) (1.0 - 3.8 K/mm3) 1.72 Ocean # (Auto) (0.1 - 0.8 K/mm3) 2.18 H Eos # (Auto) (0.0 - 0.2 K/mm3) 0.02 Baso # (Auto) (0.0 - 0.2 K/mm3) 0.04 Immature Gran % (0.0 - 2.0 %) 1.3 Nucleated RBC % (0 - 1.0 %) 0.0 Nucleated RBCs # (Man) (0.0 - 0.1 K/mm3) 0.00 Radiology data:Recent Impressions:RADIOLOGY - XR CHEST 1V 04/02 0600 Report Impression - Status: SIGNED Entered: 04/02/2021 0820 IMPRESSION:Cardiomegaly with diffuse congestive changes bilaterally. 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 Volume overload HLP DM PLAN: Continue medical rx. Lasix Ambulate IS at 1827 RPT #:[id number] OF REPORTPRProgress [id number]:15:[id number] for patient [id number]:27:36 2021-04-02 [id number] [facility] 10:13:00 [address] [place] [address] PATIENT NAME: COLE JEFFREY ADMIT DATE: 03/28/21ACCOUNT NO: [id number] ROOM NO: Z.SI02 AGE: 81 REPORT TYPE: ELECTROCARDIOGRAM SEX: M ADMITTING PHYSICIAN:Aisha Lucas MD ATTENDING PHYSICIAN:Aisha Lucas MD Order:[id number] Reason : CAD/CAB Test Date/Time Stamp:TueApr 02 2021 10:13:51Blood Pressure : / mmHGVent. Rate : 086 BPM Atrial Rate : 086 BPM P-R Int : 160 ms QRS Dur : 158 ms QT Int : 420 ms P-R-T Axes : 000 -79 087 degrees QTc Int : 502 ms Poor data quality, interpretation may be adversely affectedAV sequential or dual chamber electronic pacemakerWhen compared with ECG of 01-APR-2021 07:20,Vent. rate has increased BY 6 BPMConfirmed by NONI MARQUEZ ([id number]) on 04/02/2021 5:17:06 PM Referred By: Aisha Lucas Confirmed by:NONI MARQUEZ at 7992 PATIENT NAME: COLE JEFFREY .[id number] for patient [id number]:17:32 2021-04-02 [id number]:15:00 [facility] 06:15:00 [facility] ([facility])Hospitalist Progress NoteREPORT#:[id number] REPORT STATUS: SignedDATE:04/02/21 TIME: 614 PATIENT: COLE JEFFREY UNIT #: [id number]#: [id number] [address] AGE: 81 SEX: M ATTEND: Aisha Lucas [facility] AUTHOR: Vidal Larry MD, MPH R1 * ALL edits or amendments must be made on the electronic/computer document * Vidal Lrary 04/02/21614:SubjectiveChief Complaint:Pt is now s/p CABG 2 day. He is c/o ongoing chest pain, slight SOB,nonproductive cough that has been present since waking from surgery. It has not worsened since then. Has not tried laying down but has hx orthopnea even at home. Now c/o sensation of constipation, gas but has not passed gas, moved bowels yet. At home he takes Mg citrate for constipation. Review of SystemsConstitutional:Denies: chills, fatigue, fever, generalized weakness, lethargy, malaise, recent wt loss. Respiratory:Reports: non productive cough. Denies: COWAN (dyspnea on exertion), hemoptysis, parox nocturnal dyspnea, pleurisy, pleuritic pain, pneumonia, productive cough (sputum), SOB, wheezing. Cardiovascular:Reports: chest pain (INCISION SITE), orthopnea. Denies: COWAN (dyspnea on exertion), edema, palpitations, parox nocturnal dyspnea, other. GI:Reports: constipation. Denies: abdominal pain, anorexia, diarrhea, nausea, vomiting. All systems rev neg: except as marked Objective GeneralVS/I O:Vital Signs: Date Time Temp Pulse Resp B/P B/P Pulse O2 O2 Flow FiO2 Mean Ox Delivery Rate 04/02 1115 98.0 88 18 98 Nasal 2 cannula 04/02 1045 81 100 04/02 1031 100 Nasal 2 28 cannula 04/02 1030 87 22 100 04/02 1015 83 24 100 04/02 1000 87 100 04/02 0945 86 20 99 04/02 0900 81 19 100 04/02 0845 85 19 98 10/21 0830 80 26 99 10/ 0815 81 24 99 10/21 0800 80 16 100 10/21 0800 98.0 81 18 100 Nasal 2 cannula 04/02 0745 80 20 100 10/ 0730 Nasal 3 cannula 04/02 0730 80 18 99 10/ 0715 83 99 10/21 0700 81 100 / 0400 98.1 04/02 0145 80 20 100 10/ 0130 80 20 100 10/ 0115 80 18 100 10/ 0100 79 100 10/ 0045 83 99 10/ 0030 83 100 / 0015 80 20 97 10/ 0000 97.5 04/02 0000 84 99 10/20 2345 80 21 99 10/20 2330 80 19 100 10/20 2315 80 19 100 10/20 2300 81 19 100 10/20 2245 80 15 95 10/20 2230 80 19 94 10/20 2215 80 17 94 10/20 2200 80 99 10/20 2145 80 19 99 10/20 2130 79 99 10/20 2115 80 14 99 10/20 2100 80 21 100 10/20 2045 80 12 100 10/20 2030 80 18 100 10/20 2014 97.4 1020 2014 Nasal 3 cannula 102014 79 19 99 10/20 1957 85 21 10/20 1945 80 99 10/20 1930 80 12 99 10/20 1915 80 20 100 10/20 1900 80 20 100 10/20 1830 100 Nasal 5 40 cannula / 1824 84 95 10/20 1815 81 22 99 10/20 1800 81 21 100 10/20 1745 80 22 100 10/20 1730 82 23 100 10/20 1715 80 99 10/20 1700 80 22 100 10/20 1645 79 17 100 10/20 1630 80 99 10/20 1615 80 18 100 10/20 1600 80 19 100 10/20 1600 97.3 80 21 99 Nasal 3 cannula 10/20 1545 79 20 100 10/20 1530 80 21 100 10/20 1515 79 21 100 10/20 1500 79 17 100 10/20 1445 80 17 99 10/20 1430 79 19 100 10/20 1415 79 20 99 10/20 1400 80 19 100 10/20 1345 79 100 10/20 1330 78 10/20 1315 80 17 100 10/20 1300 80 18 100 04/01 1245 80 20 100 04/01 1230 80 99 04/01 1215 81 100 04/01 1200 80 23 100 04/01 1200 97.8 80 20 100 Nasal 5 cannula 04/01 1145 79 94 24 hour I O ending at 0700: 04/01 1900 04/02 0700 Intake Total 1925.50 700.00 Output Total 570 650 Balance 1355.50 50.00 Intake, IV 595.50 100.00 Intake, Oral 1330 600 Output, Chest 170 250 Tube Drainage Output, Urine 400 400 Patient 108.862 kg Weight PATIENT WEIGHT: Weight (lb): 240Weight (oz): 8.07Weight (kg): 108.862 Medications:Active Meds + DC'd Last 24 HrsGabapentin (NEURONTIN) 100 MG 2100 PO Lactulose (CHRONULAC) 30 GM NOW ONE PO (DC) Simethicone (MYLICON 80MG) 160 MG Q6H PRN PRN PO Polyethylene Glycol (MIRALAX) 17 GM BID PRN PO Docusate Sodium (COLACE) 100 MG BID PO Famotidine (PEPCID) 20 MG BID PO Ferrous Sulfate (FEOSOL) 325 MG BID PO Insulin Human Lispro (HumaLOG) LOW DOSE SLIDING SCALE AC HS SUBQ Benzonatate (TESSALON PERLE) 100 MG TID PRN PRN PO Albumin Human (ALBUMINAR-25) 25 GM .STK-MED ONE Z (DC) Heparin Sodium (HEPARIN SODIUM) 10,000 UNITS .STK-MED ONE Z (DC) Heparin Sodium (Porcine) (Heparin Sodium) 1,000 UNIT .STK-MED ONE Z (DC) Lidocaine HCl (LIDOCAINE HCL) 100 MG .STK-MED ONE Z (DC) Magnesium Sulfate (Magnesium Sulfate PREMIX) 4 GM .STK-MED ONE Z (DC) Mannitol (MANNITOL) 37.5 GM .STK-MED ONE Z (DC) Parenteral Electrolytes (PLASMA-LYTE A PH 7.4) 4,000 ML .STK-MED ONE Z (DC) Potassium Chloride (POTASSIUM CHLORIDE) 60 MEQ .STK-MED ONE Z (DC) Sodium Bicarbonate (SODIUM BICARBONATE) 8.4 GM .STK-MED ONE Z (DC) Sodium Chloride (SODIUM CHLORIDE 0.9% PROCESSING SOLN.) 3,000 ML .STK-MED ONE Z (DC) Sodium Chloride (SODIUM CHLORIDE 0.9%) 3,000 ML .STK-MED ONE Z (DC) Benzocaine/Menthol (Cepacol Sore Throat Lozenge) 1 EACH Q4H PRN PRN MM Clopidogrel Bisulfate (PLAVIX) 75 MG DAILY PO Mupirocin (BACTROBAN NASAL - ADULT ICU) 1 APPLIC BID NASAL Potassium Cl/Dextrose/Lact Ringer's (NS 0.45% WITH 20MEQ KCL) 1,000 ML .[id number] IV Albumin Human (ALBUMINAR-5) 250 ML ASDIR PRN IV (DC) Calcium Gluconate (CALCIUM GLUCONATE 10%) 1,000 MG ASDIR PRN IV Sodium Chloride (SODIUM CHLORIDE 0.9%) 100 MLDextrose/Water (DEXTROSE 50% IN WATER) 12.5 GM ASDIR PRN IV Dextrose/Water (DEXTROSE 50% IN WATER) 25 GM ASDIR PRN IV Dobutamine HCl/Dextrose (DOBUTamine HCL IN DEXTROSE) 250 ML ASDIR PRN IV Epinephrine (EPINEPHrine/NS 4MG/250ML) 250 ML ASDIR PRN IV Hydrocodone Bitart/Acetaminophen (NORCO 5/325 TABLET (C-II)) 1 TAB Q4H PRN PRN PO Lidocaine HCl/Dextrose (LIDOCAINE HCL IN 5% DEXTROSE) 500 ML ASDIR PRN IV (CKD) Magnesium Sulfate (MAG SULFATE 2GM PREMIX) 50 ML ASDIR PRN IV Magnesium Sulfate/Dextrose (Magnesium Sulfate) 100 ML ASDIR PRN IV Meperidine HCl (DEMEROL (C-II)) 12.5 MG Q6H PRN PRN IM Morphine Sulfate (morphine SULFATE (C-II)) 2 MG Q15M PRN PRN IV Ondansetron HCl (ZOFRAN) 4 MG Q8H PRN PRN IV Potassium Chloride (Potassium Chloride) 50 ML ASDIR PRN IV Cefuroxime Sodium (ZINACEF) 1,500 MG Q8H IV (DC) Albumin Human (ALBUMINAR-5) 250 ML ASDIR PRN IV (DC) Sodium Bicarbonate (SODIUM BICARBONATE) 4.2 GM ASDIR PRN IV (CKD) Dextrose/Water (DEXTROSE 50% IN WATER) 12.5 GM ASDIR PRN IV Dextrose/Water (DEXTROSE 50% IN WATER) 25 GM ASDIR PRN IV Insulin Human Regular (HUMULIN R) 100 UNIT ASDIR IV (CKD) Sodium Chloride (SODIUM CHLORIDE 0.9%) 99 MLNicardipine HCl (CARDENE I.V.) 25 MG ASDIR IV (CKD) Sodium Chloride (SODIUM CHLORIDE 0.9%) 250 MLAspirin (ASPIRIN EC) 81 MG DAILY PO Levothyroxine Sodium (Synthroid) 100 MCG DAILY PO Atorvastatin Calcium (LIPITOR) 80 MG BEDTIME PO Clotrimazole (LOTRIMIN) 1 ROLDAN BID TOPICAL (CKD) Oxybutynin Chloride (DITROPAN) 5 MG BEDTIME PO Tamsulosin HCl (FLOMAX) 0.4 MG BID PO Finasteride (PROSCAR) 5 MG DAILY PO Ondansetron HCl (ZOFRAN) 4 MG Q8H PRN PRN IV Nutrition assessment:The data set between the solid lines has been imported from the dietitian's assessment. Any exceptions have been noted under Provider comments. BMI Calculated: 32.5Nutrition related diagnosis: ObeseNutrition diagnosis details: BMI 30-39.9Nutrition problem: KNOWLEDGE DEFICITNutrition etiology: CARDIAC HEALTH AND DIETNutrition signs and symptoms: MD CONSULT FOR HEART HEALTHY , DIET EDUCATIONNutrition prescription: WHEN MEDICALLY APPROPRIATE, ADVANCE DIET TOLERATED FROM DIABETIC CLEAR LIQUID TO DIABETIC FULL LIQUID DIABETIC TO DIABETIC/NUTRITIONALLY ADEQUATE DIET. RDN TO FOLLOW UP AND EDUCATE PT ON HEART HEALTHY DIET WHEN HIS VISITS REQUESTED.Dietitian name: Ava Benito, DIETAssessment completed: 03/31/21 Provider comments on imported dietitian assessment: Physical ExamGeneral appearance: obese, alert, awake, oriented, no acute distress, pleasant, conversational, mental status normal, no respiratory distressHead/Eyes: atraumatic, normal conjunctiva/scleraENT: moist mucosal membranesNeck: full range of motion, supple/no meningismusCardiovascular: irregular rhythm (FREQUENT PVCS), normal capillary refill, normal heart sounds, no murmurRespiratory: chest tube, on oxygen ([place]), aerating well, clear to auscultation, symmetric expansion, no distressAbdomen: distended, non-tender, normal bowel sounds, softGenitourinary: foleyNeuro/HUMAN RESOURCES LEADER: alert, oriented X 3, CNII-XII intactSkin: dry, normal temperatureWound/incision: Location: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, DRESSING CDI ResultsFindings/Data:Laboratory Tests 04/01 04/01 04/01 04/02 04/02 1142 1420 2047 0715 0805 Chemistry Sodium (137 - 145 MMOL/L) 132 L Potassium (3.5 - 5.1 MMOL/L) 4.7 Chloride (98 - 107 MMOL/L) 103 Carbon Dioxide (22 - 30 MMOL/L) 25 Anion Gap (14 - 24 MMOL/L) 9 L BUN (9 - 20 MG/DL) 24 H Creatinine (0.66 - 1.25 MG/DL) 1.00 Glomerular Filtr Rate > 60 Glucose (74 - 106 MG/DL) 157 H POC Glucose (60 - 99 MG/DL) 117 H 124 H 181 H 166 H Calcium (8.4 - 10.2 MG/DL) 7.8 L 04/02 1110 Chemistry POC Glucose (60 - 99 MG/DL) 184 H Laboratory Tests 04/02 0715 Hematology WBC (3.8 - 9.8 K/MM3) 21.0 H RBC (3.95 - 5.67 M/MM3) 2.93 L Hgb (12.4 - 16.7 G/DL) 8.6 L Hct (35.9 - 49.5 %) 25.9 L MCV (81.7 - 96.1 fL) 88 MCH (27.6 - 33.2 pg) 29.4 MCHC (32.9 - 35.5 %) 33.2 RDW (12.1 - 15.2 %) 15.1 Plt Count (129 - 368 K/MM3) 145 MPV (7.4 - 10.4 fl) 11.1 H Neut % (Auto) (43 - 75 %) 79.8 H Lymph % (Auto) (14 - 44 %) 8.2 L Ocean % (Auto) (4 - 13 %) 10.4 Eos % (Auto) (0 - 6 %) 0.1 Baso % (Auto) (0 - 2 %) 0.2 Neut # (Auto) (2.0 - 7.6 K/mm3) 16.79 H Lymph # (Auto) (1.0 - 3.8 K/mm3) 1.72 Ocean # (Auto) (0.1 - 0.8 K/mm3) 2.18 H Eos # (Auto) (0.0 - 0.2 K/mm3) 0.02 Baso # (Auto) (0.0 - 0.2 K/mm3) 0.04 Immature Gran % (0.0 - 2.0 %) 1.3 Nucleated RBC % (0 - 1.0 %) 0.0 Nucleated RBCs # (Man) (0.0 - 0.1 K/mm3) 0.00 Radiology data:Recent Impressions:RADIOLOGY - XR CHEST 1V 04/02 0600 Report Impression - Status: SIGNED Entered: 04/02/2021 0820 IMPRESSION:Cardiomegaly with diffuse congestive changes bilaterally. Nopneumothorax.Impression By: Claudio - Eleanor Pablo MD Results: labs reviewed, vital signs stable, current med profile rev'd Free Text Obj NotesFree Text Obj Notes:Unable to obtain due to patient being in the OR for CABG procedure Diagnosis, Assessment PlanProblem List/A P: 1. S/P CABG (coronary artery bypass graft) 2. Coronary artery disease 3. Hypertension 4. Hyperlipidemia 5. Diabetes 6. Peripheral artery disease 7. Tinea pedis 8. Obesity 9. Hypothyroidism 10. Benign prostatic hyperplasia 11. Anemia Free Text DxA P NotesFree text DxA P notes:81 y/o M significant PMH HTN, HLD, 90 pack-year smoking hx, DM2, CAD, PAD, frequent SVT/PVC, neuropathy presented after angina, severe CAD on cath. Scheduled for CABG 03/31. 03/30/21:- Severe blockages in multiple vessels requiring CABG as per cath report- Currently asx- Multiple labs ordered as per CV surgery including CBC/CMP/coag studies WNL- NPO after midnight for surgery, Continue anticoagulation/abx/medications as per cardiovascular - Hold metoprolol 50 BID due to hypotension- Continue losartan 100 daily, Continue nitro patch q6H, Consider restart amlodipine 5 AM 2.5 PM if remains HTN- Continue Atorvastatin 80 daily- Continue levothyroxine 100 mcg daily- Hold metformin 1000 daily, Continue linagliptin 5 daily, Continue glimepiride 4 daily, Begin glucose monitoring w/ SSI- Continue tamsulosin 0.4 daily, Continue finasteride 5 mg daily, Continue oxybutynin 5 daily- White rash between multiple toes, moreso on L foot- Continue terbinafine cream BID 03/31/21:-Patient to OR for CABG today-Plan per CV team 04/01/21:-CABG postop 1-Plan per CV team 04/02/21:-CABG postop 2-c/o constipation, gas so was rx'd 1x lactulose 30g, simethicone-Otherwise plan per CV team Code: FULLDVT: Lovenox BIDDiet: per CV team Quality: Gen Med Crit Care VTE ProphylaxisVTE prophylaxis initiated: yes Current MedicationsCurrent medication review:I attest that the foregoing medication list in the medical record is true, accurate, and complete to the best of my knowledge. Advanced Care Plan 65 or OlderDiscussed with: patientDiscussion included: code status (full code) Aisha Lucas 04/02/21 1847:Attestations Teaching Physician AttestationF/U visit w/ resident:I saw the patient with the resident and . . . agree with the resident's findings and plan. at 1151 at 1847 RPT #:[id number] OF REPORTPRProgress [id number]:15:[id number] for patient [id number]:53:05 2021-04-01 [id number]:25:00 [facility] 16:25:00 [facility] ([facility])Cardiology Progress NoteREPORT#:[id number] REPORT STATUS: SignedDATE:04/01/21 TIME: 1625 PATIENT: COLE JEFFREY UNIT #: [id number]#: [id number] [facility] AGE: 81 SEX: M ATTEND: Santana Rust MDADM AUTHOR: Ruiz Bhatti MD * ALL edits or amendments must be made on the electronic/computer document * SubjectiveChief Complaint:CADPatient reports:No: chest pain, palpitations, shortness of breath. Objective GeneralVS/I O:24 hour I O ending at 0700: 04/01 0700 03/31 1900 Intake Total 964.10 428.60 Output Total 2600 550 Balance -1635.90 -121.40 Intake, IV 884.10 398.60 Intake, Oral 80 Intake, Tube 30 Irrigant Output, Chest 250 350 Tube Drainage Output, 1300 Estimated Blood Loss Output, Urine 1050 200 Patient 109.091 kg Weight Weight Stated/Reported Measurement Method Vital Signs: Date Time Temp Pulse Resp B/P B/P Pulse O2 O2 Flow FiO2 Mean Ox Delivery Rate 04/01 1545 79 20 100 10 1530 80 21 100 04/01 1515 79 21 100 04/01 1500 79 17 100 04/01 1445 80 17 99 04/01 1430 79 19 100 04/01 1415 79 20 99 10/ 1400 80 19 100 04/01 1345 79 100 04/01 1330 78 10 1315 80 17 100 04/01 1300 80 18 100 10/20 1245 80 20 100 10/20 1230 80 99 10/ 1215 81 100 10/ 1200 80 23 100 10/20 1200 97.8 80 20 100 Nasal 5 cannula 10 1145 79 94 10/ 1115 80 100 10/20 1100 80 24 100 10/20 1045 80 100 10/ 1030 79 23 100 10/ 1015 80 19 100 10/20 1000 79 20 100 10/ 0945 80 18 100 10/20 0930 78 100 10/ 0916 100 Nasal 5 40 cannula 04/01 0915 79 27 100 10/20 0900 81 22 100 10/20 0845 79 18 100 10/20 0830 81 14 100 10/20 0815 80 100 10/20 0800 99.2 80 18 100 Nasal 5 cannula 10/20 0800 79 23 100 10/20 0745 Nasal 5 cannula 10/20 0745 80 20 99 10/20 0730 80 19 100 10/20 0715 80 21 100 10/20 0700 80 23 100 10/20 0645 79 20 100 10/20 0639 79 22 100 10/20 0630 80 20 100 10/20 0615 79 24 100 10/20 0600 80 13 100 10/20 0545 80 10 100 10/20 0530 80 16 93 10/20 0515 82 19 100 10/20 0500 79 24 10/20 0445 100 10/20 0430 100 10/20 0415 79 22 100 10/20 0400 98.3 10/20 0400 Nasal 3 cannula 10/20 0400 80 23 99 10/20 0345 79 25 99 10/20 0330 79 21 100 10/20 0315 79 21 100 10/20 0300 80 22 100 10/20 0245 80 21 100 10/20 0230 79 23 100 10/20 0215 79 18 99 10/20 0200 79 19 100 10/20 0145 80 28 100 10/20 0130 80 17 100 10/20 0115 80 25 100 10/20 0100 80 19 100 10/20 0045 79 22 100 10/20 0030 79 20 100 10/20 0015 80 20 100 10/20 0000 98.6 79 16 10/20 0000 79 19 100 10/19 2345 79 15 100 10/ 2330 80 18 100 10/19 2315 80 20 100 10/ 2300 79 19 100 10/ 2245 79 19 100 10/ 2230 79 18 100 10/ 2215 79 20 100 10/ 2200 80 25 100 10/ 2145 79 22 100 10/0 79 19 100 10/2114 79 19 100 10/2099 79 19 100 10/2044 79 20 100 10/2029 79 23 100 10/2014 79 20 100 10/19 1999 80 22 100 10/19 1999 100 Face mist 6 70 tent 101951 80 100 40 10/19 5 80 15 100 10/19 0 79 16 100 10/ 1920 Ventilator 15 40 10/ 1920 98.6 80 19 120/52 74 100 Ventilator 15 40 03/31 1915 79 16 100 03/31 1900 80 15 100 03/31 1845 80 18 100 03/31 1830 79 15 100 03/31 1815 80 21 100 03/31 1800 80 21 100 03/31 1745 79 24 100 03/31 1730 79 17 100 03/31 1715 80 17 100 03/31 1700 79 20 100 03/31 1645 80 17 100 03/31 1630 79 20 100 PATIENT WEIGHT: Weight (lb): 240Weight (oz): 8.07Weight (kg): 108.862 Medications:Active Meds + DC'd Last 24 HrsGabapentin (NEURONTIN) 100 MG 2100 PO Famotidine (PEPCID) 20 MG BID PO Benzonatate (TESSALON PERLE) 100 MG TID PRN PRN PO Albumin Human (ALBUMINAR-25) 25 GM .STK-MED ONE Z (DC) Heparin Sodium (HEPARIN SODIUM) 10,000 UNITS .STK-MED ONE Z (DC) Heparin Sodium (Porcine) (Heparin Sodium) 1,000 UNIT .STK-MED ONE Z (DC) Lidocaine HCl (LIDOCAINE HCL) 100 MG .STK-MED ONE Z (DC) Magnesium Sulfate (Magnesium Sulfate PREMIX) 4 GM .STK-MED ONE Z (DC) Mannitol (MANNITOL) 37.5 GM .STK-MED ONE Z (DC) Parenteral Electrolytes (PLASMA-LYTE A PH 7.4) 4,000 ML .STK-MED ONE Z (DC) Potassium Chloride (POTASSIUM CHLORIDE) 60 MEQ .STK-MED ONE Z (DC) Sodium Bicarbonate (SODIUM BICARBONATE) 8.4 GM .STK-MED ONE Z (DC) Sodium Chloride (SODIUM CHLORIDE 0.9% PROCESSING SOLN.) 3,000 ML .STK-MED ONE Z (DC) Sodium Chloride (SODIUM CHLORIDE 0.9%) 3,000 ML .STK-MED ONE Z (DC) Benzocaine/Menthol (Cepacol Sore Throat Lozenge) 1 EACH Q4H PRN PRN MM Clopidogrel Bisulfate (PLAVIX) 75 MG DAILY PO Famotidine (PEPCID) 20 MG BID IV (DC) Mupirocin (BACTROBAN NASAL - ADULT ICU) 1 APPLIC BID NASAL Potassium Cl/Dextrose/Lact Ringer's (NS 0.45% WITH 20MEQ KCL) 1,000 ML .[id number] IV Aspirin (CHILDREN'S ASPIRIN) 162 MG ONCE ONE PO (DC) Albumin Human (ALBUMINAR-5) 250 ML ASDIR PRN IV (DC) Calcium Gluconate (CALCIUM GLUCONATE 10%) 1,000 MG ASDIR PRN IV Sodium Chloride (SODIUM CHLORIDE 0.9%) 100 MLDextrose/Water (DEXTROSE 50% IN WATER) 12.5 GM ASDIR PRN IV Dextrose/Water (DEXTROSE 50% IN WATER) 25 GM ASDIR PRN IV Dobutamine HCl/Dextrose (DOBUTamine HCL IN DEXTROSE) 250 ML ASDIR PRN IV Epinephrine (EPINEPHrine/NS 4MG/250ML) 250 ML ASDIR PRN IV Hydrocodone Bitart/Acetaminophen (NORCO 5/325 TABLET (C-II)) 1 TAB Q4H PRN PRN PO Lidocaine HCl/Dextrose (LIDOCAINE HCL IN 5% DEXTROSE) 500 ML ASDIR PRN IV (CKD) Magnesium Sulfate (MAG SULFATE 2GM PREMIX) 50 ML ASDIR PRN IV Magnesium Sulfate/Dextrose (Magnesium Sulfate) 100 ML ASDIR PRN IV Meperidine HCl (DEMEROL (C-II)) 12.5 MG Q6H PRN PRN IM Morphine Sulfate (morphine SULFATE (C-II)) 2 MG Q15M PRN PRN IV Ondansetron HCl (ZOFRAN) 4 MG Q8H PRN PRN IV Potassium Chloride (Potassium Chloride) 50 ML ASDIR PRN IV Potassium Chloride/Dextrose/Sod Cl (DEXTROSE 5%-1/4NS-KCL 20MEQ) 1,000 ML .[id number] IV (DC) Cefuroxime Sodium (ZINACEF) 1,500 MG Q8H IV Albumin Human (ALBUMINAR-5) 250 ML ASDIR PRN IV (DC) Sodium Bicarbonate (SODIUM BICARBONATE) 4.2 GM ASDIR PRN IV (CKD) Dextrose/Water (DEXTROSE 50% IN WATER) 12.5 GM ASDIR PRN IV Dextrose/Water (DEXTROSE 50% IN WATER) 25 GM ASDIR PRN IV Insulin Human Regular (HUMULIN R) 100 UNIT ASDIR IV (CKD) Sodium Chloride (SODIUM CHLORIDE 0.9%) 99 MLNicardipine HCl (CARDENE I.V.) 25 MG ASDIR IV (CKD) Sodium Chloride (SODIUM CHLORIDE 0.9%) 250 MLAspirin (ASPIRIN EC) 81 MG DAILY PO Levothyroxine Sodium (Synthroid) 100 MCG DAILY PO Atorvastatin Calcium (LIPITOR) 80 MG BEDTIME PO Clotrimazole (LOTRIMIN) 1 ROLDAN BID TOPICAL (CKD) Oxybutynin Chloride (DITROPAN) 5 MG BEDTIME PO Tamsulosin HCl (FLOMAX) 0.4 MG BID PO Finasteride (PROSCAR) 5 MG DAILY PO Ondansetron HCl (ZOFRAN) 4 MG Q8H PRN PRN IV Physical ExamGeneral appearance: alert, awake, orientedHead/Eyes: atraumatic, normocephalicENT: moist mucosal membranesNeck: no JVDCardiovascular: CV assessment: regular rate and rhythmRespiratory: clear to auscultation, no distressLower extremity: LE assessment: no edemaMusculoskeletal: full range of motionNeuro/HUMAN RESOURCES LEADER: alert, oriented X 3, CN II-XII intactSkin: dry, intactPsychiatry: normal affect, normal judgment/insight, normal mood ResultsFindings/Data:Laboratory Tests 04/01 04/01 04/01 04/01 04/01 1420 1142 0749 0551 0410 Chemistry Sodium (137 - 145 MMOL/L) 138 Potassium (3.5 - 5.1 MMOL/L) 4.8 Chloride (98 - 107 MMOL/L) 109 H Carbon Dioxide (22 - 30 MMOL/L) 26 Anion Gap (14 - 24 MMOL/L) 8 L BUN (9 - 20 MG/DL) 19 Creatinine (0.66 - 1.25 MG/DL) 1.00 Glomerular Filtr Rate > 60 Glucose (74 - 106 MG/DL) 150 H POC Glucose (60 - 99 MG/DL) 124 H 117 H 180 H 148 H Calcium (8.4 - 10.2 MG/DL) 7.6 L Magnesium (1.6 - 2.3 MG/DL) 3.0 H 04/01 04/01 03/31 03/31 03/31 0404 0040 2315 2202 2040 Chemistry POC Glucose (60 - 99 MG/DL) 157 H 158 H 163 H 162 H 201 H 03/31 03/31 03/31 03/31 1904 1841 1733 1630 Chemistry POC Glucose (60 - 99 MG/DL) 205 H 207 H 191 H 192 H Laboratory Tests 04/01 0410 Hematology WBC (3.8 - 9.8 K/MM3) 19.7 H RBC (3.95 - 5.67 M/MM3) 3.70 L Hgb (12.4 - 16.7 G/DL) 10.5 L Hct (35.9 - 49.5 %) 32.6 L MCV (81.7 - 96.1 fL) 88 MCH (27.6 - 33.2 pg) 28.4 MCHC (32.9 - 35.5 %) 32.2 L RDW (12.1 - 15.2 %) 14.5 Plt Count (129 - 368 K/MM3) 161 MPV (7.4 - 10.4 fl) 10.7 H Neut % (Auto) (43 - 75 %) 82.3 H Lymph % (Auto) (14 - 44 %) 7.0 L Ocean % (Auto) (4 - 13 %) 9.4 Eos % (Auto) (0 - 6 %) 0.0 Baso % (Auto) (0 - 2 %) 0.2 Neut # (Auto) (2.0 - 7.6 K/mm3) 16.23 H Lymph # (Auto) (1.0 - 3.8 K/mm3) 1.37 Ocean # (Auto) (0.1 - 0.8 K/mm3) 1.85 H Eos # (Auto) (0.0 - 0.2 K/mm3) 0.00 Baso # (Auto) (0.0 - 0.2 K/mm3) 0.03 Immature Gran % (0.0 - 2.0 %) 1.1 Nucleated RBC % (0 - 1.0 %) 0.0 Nucleated RBCs # (Man) (0.0 - 0.1 K/mm3) 0.00 Laboratory Tests 04/01 0410 Chemistry Magnesium (1.6 - 2.3 MG/DL) 3.0 H Radiology data:Recent Impressions:RADIOLOGY - XR CHEST 1V 04/01 0612 Report Impression - Status: SIGNED Entered: 04/01/2021 8389 IMPRESSION: Remaining support lines intact. Postop changes of CABGwith atelectasis at the left lower lung field. Cardiomegaly with mild vascular congestion. Location: [id number] By: [email or web address] - MARCELLO POLLOCK MD Diagnosis, Assessment Plan Free Text DxA P NotesFree Text DxA P Notes:IMP: 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 HTN HLP DM PLAN: Continue medical rx. Ambulate IS at 1736 RPT #:[id number] OF REPORTPRProgress [id number]:25:[id number] for patient [id number]:36:34 2021-04-01 [id number]:32:00 [facility] 10:32:00 [facility] Progress NoteREPORT#:[id number] REPORT STATUS: SignedDATE:04/01/21 TIME: 1032 PATIENT: COLE JEFFREY [place] UNIT #: [id number]#: [id number] [address] AGE: 81 SEX: M ATTEND: Santana Rust MDADM AUTHOR: Vidal Larry MD, MPH R1 * ALL edits or amendments must be made on the electronic/computer document * Vidal Larry 04/01/21 1032:SubjectiveChief Complaint:Pt is now s/p CABG 1 day. He is c/o ongoing chest pain, slight SOB, nonproductive cough that has been present since waking from surgery. In additionc/o orthopnea. Currently sitting in chair and feels better.Pt's HR is now 70s-80s, still w/ occasional PVCs, has pacer wires. Review of SystemsConstitutional:Denies: chills, fatigue, fever, generalized weakness, lethargy, malaise, recent wt loss. Respiratory:Reports: COWAN (dyspnea on exertion), non productive cough, SOB. Denies: hemoptysis, parox nocturnal dyspnea, pleurisy, pleuritic pain, pneumonia, productive cough (sputum), wheezing. Cardiovascular:Reports: chest pain, COWAN (dyspnea on exertion), orthopnea. Denies: edema, palpitations, parox nocturnal dyspnea. GI:Reports: constipation. Denies: abdominal pain, diarrhea, nausea, vomiting. All systems rev neg: except as marked Objective GeneralVS/I O:Vital Signs: Date Time Temp Pulse Resp B/P B/P Pulse O2 O2 Flow FiO2 Mean Ox Delivery Rate 04/01 0916 100 Nasal 5 40 cannula 04/01 0715 80 21 100 10/ 0700 80 23 100 10/20 0645 79 20 100 10/20 0639 79 22 100 10/20 0630 80 20 100 10/20 0615 79 24 100 10/ 0600 80 13 100 10/ 0545 80 10 100 10/ 0530 80 16 93 10/ 0515 82 19 100 10/ 0500 79 24 10 0445 100 / 0430 100 04/01 0415 79 22 100 / 0400 98.3 04/01 0400 Nasal 3 cannula 04/01 0400 80 23 99 10/ 0345 79 25 99 10/ 0330 79 21 100 / 0315 79 21 100 10/ 0300 80 22 100 10/ 0245 80 21 100 10/ 0230 79 23 100 10/ 0215 79 18 99 10/ 0200 79 19 100 10/ 0145 80 28 100 10/ 0130 80 17 100 10/ 0115 80 25 100 10/ 0100 80 19 100 10/ 0045 79 22 100 / 0030 79 20 100 10/ 0015 80 20 100 10 0000 98.6 79 16 10 0000 79 19 100 10 2345 79 15 100 03/31 2330 80 18 100 03/31 2315 80 20 100 03/31 2300 79 19 100 10 2245 79 19 100 10 2230 79 18 100 03/31 2215 79 20 100 03/31 2200 80 25 100 03/31 2145 79 22 100 03/31 2130 79 19 100 03/315 79 19 100 03/31 2100 79 19 100 03/315 79 20 100 03/31 2030 79 23 100 03/31 2015 79 20 100 101999 80 22 100 101999 100 Face mist 6 70 tent 03/31 1952 80 100 40 03/31 1945 80 15 100 03/31 1930 79 16 100 03/31 1920 Ventilator 15 40 03/31 1920 98.6 80 19 120/52 74 100 Ventilator 15 40 03/31 1915 79 16 100 03/31 1900 80 15 100 03/31 1845 80 18 100 03/31 1830 79 15 100 03/31 1815 80 21 100 03/31 1800 80 21 100 03/31 1745 79 24 100 03/31 1730 79 17 100 03/31 1715 80 17 100 03/31 1700 79 20 100 03/31 1645 80 17 100 03/31 1630 79 20 100 03/31 1615 79 100 03/31 1600 79 100 03/31 1545 98.8 100 03/31 1545 79 19 100 03/31 1545 100 Ventilator 100 03/31 1545 76 100 100 03/31 1530 Ventilator 100 03/31 1530 80 12 100 03/31 1521 80 100 24 hour I O ending at 0700: 03/31 0700 Intake Total 428.60 964.10 Output Total 550 2600 Balance -121.40 -1635.90 Intake, IV 398.60 884.10 Intake, Oral 80 Intake, Tube 30 Irrigant Output, Chest 350 250 Tube Drainage Output, 1300 Estimated Blood Loss Output, Urine 200 1050 Patient 109.091 kg Weight Weight Stated/Reported Measurement Method PATIENT WEIGHT: Weight (lb): 240Weight (oz): 8.07Weight (kg): 109.091 Medications:Active Meds + DC'd Last 24 HrsGabapentin (NEURONTIN) 100 MG 2100 PO Famotidine (PEPCID) 20 MG BID PO Benzocaine/Menthol (Cepacol Sore Throat Lozenge) 1 EACH Q4H PRN PRN MM Clopidogrel Bisulfate (PLAVIX) 75 MG DAILY PO Famotidine (PEPCID) 20 MG BID IV (DC) Mupirocin (BACTROBAN NASAL - ADULT ICU) 1 APPLIC BID NASAL Potassium Cl/Dextrose/Lact Ringer's (NS 0.45% WITH 20MEQ KCL) 1,000 ML .[id number] IV Aspirin (CHILDREN'S ASPIRIN) 162 MG ONCE ONE PO (DC) Albumin Human (ALBUMINAR-5) 250 ML ASDIR PRN IV Calcium Gluconate (CALCIUM GLUCONATE 10%) 1,000 MG ASDIR PRN IV Sodium Chloride (SODIUM CHLORIDE 0.9%) 100 MLDextrose/Water (DEXTROSE 50% IN WATER) 12.5 GM ASDIR PRN IV Dextrose/Water (DEXTROSE 50% IN WATER) 25 GM ASDIR PRN IV Dobutamine HCl/Dextrose (DOBUTamine HCL IN DEXTROSE) 250 ML ASDIR PRN IV Epinephrine (EPINEPHrine/NS 4MG/250ML) 250 ML ASDIR PRN IV Hydrocodone Bitart/Acetaminophen (NORCO 5/325 TABLET (C-II)) 1 TAB Q4H PRN PRN PO Lidocaine HCl/Dextrose (LIDOCAINE HCL IN 5% DEXTROSE) 500 ML ASDIR PRN IV (CKD) Magnesium Sulfate (MAG SULFATE 2GM PREMIX) 50 ML ASDIR PRN IV Magnesium Sulfate/Dextrose (Magnesium Sulfate) 100 ML ASDIR PRN IV Meperidine HCl (DEMEROL (C-II)) 12.5 MG Q6H PRN PRN IM Morphine Sulfate (morphine SULFATE (C-II)) 2 MG Q15M PRN PRN IV Ondansetron HCl (ZOFRAN) 4 MG Q8H PRN PRN IV Potassium Chloride (Potassium Chloride) 50 ML ASDIR PRN IV Potassium Chloride/Dextrose/Sod Cl (DEXTROSE 5%-1/4NS-KCL 20MEQ) 1,000 ML .[id number] IV (DC) Lidocaine HCl (XYLOCAINE JELLY 2% UD) 0 .STK-MED ONE .ROUTE (DC) Cefuroxime Sodium (ZINACEF) 1,500 MG Q8H IV Albumin Human (ALBUMINAR-5) 250 ML ASDIR PRN IV Sodium Bicarbonate (SODIUM BICARBONATE) 4.2 GM ASDIR PRN IV (CKD) Insulin Human Regular (HUMULIN R) 0 .STK-MED ONE .ROUTE (DC) Diphenhydramine HCl (BENADRYL) 0 .STK-MED ONE .ROUTE (DC) Famotidine (PEPCID) 0 .STK-MED ONE .ROUTE (DC) Glycopyrrolate (ROBINUL IJ) 0 .STK-MED ONE .ROUTE (DC) Rocuronium Xenia (ZEMURON) 0 .STK-MED ONE .ROUTE (DC) Heparin Sodium (Porcine) (Heparin Sodium) 0 .STK-MED ONE .ROUTE (DC) Dextrose/Water (DEXTROSE 50% IN WATER) 12.5 GM ASDIR PRN IV Dextrose/Water (DEXTROSE 50% IN WATER) 25 GM ASDIR PRN IV Insulin Human Regular (HUMULIN R) 100 UNIT ASDIR IV (CKD) Sodium Chloride (SODIUM CHLORIDE 0.9%) 99 MLNicardipine HCl (CARDENE I.V.) 25 MG ASDIR IV (CKD) Sodium Chloride (SODIUM CHLORIDE 0.9%) 250 MLEpinephrine (EPINEPHrine/NS 4MG/250ML) 250 ML ONCALL ONE IV (DC) Norepinephrine/Dextrose (NOREPINEPHRINE-D5W 4 MG/250 ML) 250 ML ONCALL ONE IV (DC) Tranexamic Acid (CYKLOKAPRON) 1,725 MG ONCALL IV (DC) Sodium Chloride (SODIUM CHLORIDE 0.9%) 50 MLTranexamic Acid (CYKLOKAPRON) 3,450 MG ONCALL IV (DC) Sodium Chloride (SODIUM CHLORIDE 0.9%) 250 MLMiscellaneous Information (PHARMACY TO DOSE/EVALUATE) 1 EACH ASDIR MISC (DC) Aspirin (ASPIRIN EC) 81 MG DAILY PO Levothyroxine Sodium (Synthroid) 100 MCG DAILY PO Losartan Potassium (COZAAR) 100 MG DAILY PO (DC) Polyethylene Glycol (MIRALAX) 17 GM DAILY PO (DC) Atorvastatin Calcium (LIPITOR) 80 MG BEDTIME PO Clotrimazole (LOTRIMIN) 1 ROLDAN BID TOPICAL (CKD) Insulin Human Lispro (HumaLOG) LOW DOSE SLIDING SCALE AC HS SUBQ (DC) Oxybutynin Chloride (DITROPAN) 5 MG BEDTIME PO Tamsulosin HCl (FLOMAX) 0.4 MG BID PO Dextrose/Water (DEXTROSE 50% IN WATER) 12.5 GM ASDIR PRN IV (DC) Dextrose/Water (DEXTROSE 50% IN WATER) 25 GM ASDIR PRN IV (DC) Nitroglycerin (NITRO-BID UD) 1 INCH Q6HR TRANSDERM (DC) Finasteride (PROSCAR) 5 MG DAILY PO Glimepiride (AmaryL) 4 MG DAILY PO (DC) Linagliptin (TRADJENTA) 5 MG DAILY PO (DC) Metoprolol Tartrate (LOPRESSOR) 50 MG Q12HR PO (DC) Ondansetron HCl (ZOFRAN) 4 MG Q8H PRN PRN IV Sodium Chloride (SODIUM CHLORIDE 0.9%) 1,000 ML Q10H IV (DC) Nutrition assessment:The data set between the solid lines has been imported from the dietitian's assessment. Any exceptions have been noted under Provider comments. BMI Calculated: 32.6Nutrition related diagnosis: Nutrition diagnosis details: Nutrition problem: Nutrition etiology: CARDIAC HEALTH AND DIETNutrition signs and symptoms: MD CONSULT FOR HEART HEALTHY , DIET EDUCATIONNutrition prescription: WHEN MEDICALLY APPROPRIATE, ADVANCE DIET TOLERATED FROM DIABETIC CLEAR LIQUID TO DIABETIC FULL LIQUID DIABETIC/ NUTRITIONALLY ADEQUATE DIETDietitian name: Assessment completed: Provider comments on imported dietitian assessment: Physical ExamGeneral appearance: alert, awake, oriented, no acute distress, pleasant, conversational, mental status normal, no respiratory distressHead/Eyes: atraumatic, normal conjunctiva/scleraENT: moist mucosal membranesNeck: full range of motion, supple/no meningismusCardiovascular: irregular rhythm (FREQUENT PVCS), normal capillary refill, normal heart sounds, no murmurRespiratory: chest tube, on oxygen (NC), aerating well, clear to auscultation, symmetric expansion, no distressAbdomen: non-tender, normal bowel sounds, soft, no distentionGenitourinary: foleySkin: dry, normal temperatureWound/incision: Location: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, DRESSING CDI ResultsFindings/Data:Laboratory Tests 03/31 03/31 03/31 03/31 03/31 1556 1630 1733 1841 1904 Chemistry Sodium (137 - 145 MMOL/L) 143 Potassium (3.5 - 5.1 MMOL/L) 3.7 Chloride (98 - 107 MMOL/L) 107 Carbon Dioxide (22 - 30 MMOL/L) 29 Anion Gap (14 - 24 MMOL/L) 11 L BUN (9 - 20 MG/DL) 16 Creatinine (0.66 - 1.25 MG/DL) 0.90 Glomerular Filtr Rate > 60 Glucose (74 - 106 MG/DL) 217 H POC Glucose (60 - 99 MG/DL) 192 H 191 H 207 H 205 H Calcium (8.4 - 10.2 MG/DL) 7.2 L Magnesium (1.6 - 2.3 MG/DL) 3.7 H 03/31 03/31 03/31 04/01 04/01 2040 2202 2315 0040 0404 Chemistry POC Glucose (60 - 99 MG/DL) 201 H 162 H 163 H 158 H 157 H 04/01 04/01 04/01 04/01 04/01 0410 0551 0749 1142 1420 Chemistry Sodium (137 - 145 MMOL/L) 138 Potassium (3.5 - 5.1 MMOL/L) 4.8 Chloride (98 - 107 MMOL/L) 109 H Carbon Dioxide (22 - 30 MMOL/L) 26 Anion Gap (14 - 24 MMOL/L) 8 L BUN (9 - 20 MG/DL) 19 Creatinine (0.66 - 1.25 MG/DL) 1.00 Glomerular Filtr Rate > 60 Glucose (74 - 106 MG/DL) 150 H POC Glucose (60 - 99 MG/DL) 148 H 180 H 117 H 124 H Calcium (8.4 - 10.2 MG/DL) 7.6 L Magnesium (1.6 - 2.3 MG/DL) 3.0 H Laboratory Tests 03/31 7596 Coagulation INR (0.86 - 1.14) 1.4 H APTT (25.1 - 36.5 SECONDS) 24.6 L PT Patient/Control Mix (9.5 - 12.7 SECONDS) 15.1 H Laboratory Tests 03/31 04/01 1556 0410 Hematology WBC (3.8 - 9.8 K/MM3) 28.8 H 19.7 H RBC (3.95 - 5.67 M/MM3) 3.73 L 3.70 L Hgb (12.4 - 16.7 G/DL) 10.9 L 10.5 L Hct (35.9 - 49.5 %) 32.4 L 32.6 L MCV (81.7 - 96.1 fL) 87 88 MCH (27.6 - 33.2 pg) 29.2 28.4 MCHC (32.9 - 35.5 %) 33.6 32.2 L RDW (12.1 - 15.2 %) 14.4 14.5 Plt Count (129 - 368 K/MM3) 174 161 MPV (7.4 - 10.4 fl) 10.4 10.7 H Neut % (Auto) (43 - 75 %) 84.9 H 82.3 H Lymph % (Auto) (14 - 44 %) 7.0 L 7.0 L Ocean % (Auto) (4 - 13 %) 5.8 9.4 Eos % (Auto) (0 - 6 %) 0.1 0.0 Baso % (Auto) (0 - 2 %) 0.3 0.2 Neut # (Auto) (2.0 - 7.6 K/mm3) 24.43 H 16.23 H Lymph # (Auto) (1.0 - 3.8 K/mm3) 2.02 1.37 Ocean # (Auto) (0.1 - 0.8 K/mm3) 1.67 H 1.85 H Eos # (Auto) (0.0 - 0.2 K/mm3) 0.04 0.00 Baso # (Auto) (0.0 - 0.2 K/mm3) 0.10 0.03 Immature Gran % (0.0 - 2.0 %) 1.9 1.1 Nucleated RBC % (0 - 1.0 %) 0.0 0.0 Nucleated RBCs # (Man) (0.0 - 0.1 K/mm3) 0.00 0.00 Free Text Obj NotesFree Text Obj Notes:Unable to obtain due to patient being in the OR for CABG procedure Diagnosis, Assessment PlanProblem List/A P: 1. S/P CABG (coronary artery bypass graft) 2. Coronary artery disease 3. Hypertension 4. Hyperlipidemia 5. Diabetes 6. Peripheral artery disease 7. Tinea pedis 8. Obesity 9. Hypothyroidism 10. Benign prostatic hyperplasia 11. Anemia Free Text DxA P NotesFree text DxA P notes:81 y/o M significant PMH HTN, HLD, 90 pack-year smoking hx, DM2, CAD, PAD, frequent SVT/PVC, neuropathy presented after angina, severe CAD on cath. Scheduled for CABG 03/31. 03/30/21:- Severe blockages in multiple vessels requiring CABG as per cath report- Currently asx- Multiple labs ordered as per CV surgery including CBC/CMP/coag studies WNL- NPO after midnight for surgery, Continue anticoagulation/abx/medications as per cardiovascular - Hold metoprolol 50 BID due to hypotension- Continue losartan 100 daily, Continue nitro patch q6H, Consider restart amlodipine 5 AM 2.5 PM if remains HTN- Continue Atorvastatin 80 daily- Continue levothyroxine 100 mcg daily- Hold metformin 1000 daily, Continue linagliptin 5 daily, Continue glimepiride 4 daily, Begin glucose monitoring w/ SSI- Continue tamsulosin 0.4 daily, Continue finasteride 5 mg daily, Continue oxybutynin 5 daily- White rash between multiple toes, moreso on L foot- Continue terbinafine cream BID 03/31/21:-Patient to OR for CABG today-Plan per CV team 04/01/21:-CABG postop 1-Plan per CV team Code: FULLDVT: Lovenox BIDDiet: per CV team Quality: Gen Med Crit Care VTE ProphylaxisVTE prophylaxis initiated: yes Current MedicationsCurrent medication review:I attest that the foregoing medication list in the medical record is true, accurate, and complete to the best of my knowledge. Advanced Care Plan 65 or OlderDiscussed with: patientDiscussion included: code status (full code) Aisha Lucas 04/01/21 1803:Attestations Teaching Physician AttestationF/U visit w/ resident:I saw the patient with the resident and . . . agree with the resident's findings and plan. at 1542 at 4980 RPT #:[id number] OF REPORTPRProgress [id number]:32:00Z.[id number] 191AVAvailable for patient fqeaGNHMFADBHCOYNW6982-98-78N92:49:22 2021-04-01 [id number] [facility] 07:19:[address] [address] PATIENT NAME: COLE JEFFREY ADMIT DATE: 03/28/21ACCOUNT NO: [id number] ROOM NO: Z.SI02 AGE: 81 REPORT TYPE: ELECTROCARDIOGRAM SEX: M ADMITTING PHYSICIAN:Aisha Lucas MD ATTENDING PHYSICIAN:Aisha Lucas MD Order:[id number] Reason : CAD/CAB Test Date/Time Stamp:TueApr 01 2021 07:19:36Blood Pressure : / mmHGVent. Rate : 081 BPM Atrial Rate : 081 BPM P-R Int : 168 ms QRS Dur : 166 ms QT Int : 432 ms P-R-T Axes : 009 -87 097 degrees QTc Int : 501 ms Poor data quality, interpretation may be adversely affectedAV sequential or dual chamber electronic pacemakerWhen compared with ECG of 01-APR-2021 07:19,Vent. rate has increased BY 15 BPMConfirmed by NONI MARQUEZ ([id number]) on 04/02/2021 7:25:23 AM Referred By: Noni Marquez Confirmed by:NONI MARQUEZ at 0725 PATIENT NAME: COLE JEFFREY .[id number] for patient cowhMMSFDLGOVUYVQJ4537-28-61R31:25:50 2021-04-01 [id number] [facility] 07:19:[address] [address] PATIENT NAME: COLE JEFFREY ADMIT DATE: 03/28/21ACCOUNT NO: [id number] ROOM NO: Z.SI02 AGE: 81 REPORT TYPE: ELECTROCARDIOGRAM SEX: M ADMITTING PHYSICIAN:Aisha Lucas MD ATTENDING PHYSICIAN:Aisha Lucas MD Order:[id number] Reason : CAD Test Date/Time Stamp:TueApr 01 2021 07:19:10Blood Pressure : / mmHGVent. Rate : 066 BPM Atrial Rate : 079 BPM P-R Int : 166 ms QRS Dur : 150 ms QT Int : 430 ms P-R-T Axes : 045 -86 090 degrees QTc Int : 450 ms Poor data quality, interpretation may be adversely affectedAV sequential or dual chamber electronic pacemakerWhen compared with ECG of 31-MAR-2021 15:34,Vent. rate has decreased BY 14 BPMConfirmed by NONI MARQUEZ ([id number]) on 04/02/2021 5:16:53 PM Referred By: Santana Rust Confirmed by:NONI MARQUEZ at 1716 PATIENT NAME: COLE JEFFREY .[id number] for patient [id number]:17:22 2021-04-01 [id number] [facility] 07:19:00 [address] [place] [address] PATIENT NAME: COLE JEFFREY ADMIT DATE: 03/28/21ACCOUNT NO: [id number] ROOM NO: [facility] AGE: 81 REPORT TYPE: ELECTROCARDIOGRAM SEX: M ADMITTING PHYSICIAN:Santana Rust MD ATTENDING PHYSICIAN:Santana Rust MD Order:[id number] Reason : CAD Test Date/Time Stamp:TueApr 01 2021 07:19:10Blood Pressure : / mmHGVent. Rate : 066 BPM Atrial Rate : 079 BPM P-R Int : 166 ms QRS Dur : 150 ms QT Int : 430 ms P-R-T Axes : 045 -86 090 degrees QTc Int : 450 ms Poor data quality, interpretation may be adversely affectedAV sequential or dual chamber electronic pacemakerWhen compared with ECG of 31-MAR-2021 15:34,Vent. rate has decreased BY 14 BPMConfirmed by NONI MARQUEZ ([id number]) on 04/01/2021 9:41:16 AM Referred By: Santana Rust Confirmed by:NONI MARQUEZ at 0941 PATIENT NAME: COLE JEFFREY .[id number] for patient cwirFHDRGZCGJQTZVU7920-37-16H32:41:31 2021-03-31 [id number] [facility] 15:34:00 [address] [place] [address] PATIENT NAME: COLE JEFFREY ADMIT DATE: 03/28/21ACCOUNT NO: [id number] ROOM NO: Z.SI02 AGE: 81 REPORT TYPE: ELECTROCARDIOGRAM SEX: M ADMITTING PHYSICIAN:Santana Rust MD ATTENDING PHYSICIAN:Santana Rust MD Order:[id number] Reason : CAD post CAB Test Date/Time Stamp:TueMar 31 2021 15:34:04Blood Pressure : / mmHGVent. Rate : 080 BPM Atrial Rate : 080 BPM P-R Int : 168 ms QRS Dur : 190 ms QT Int : 500 ms P-R-T Axes : 024 -81 119 degrees QTc Int : 576 ms Poor data quality, interpretation may be adversely affectedAV sequential or dual chamber electronic pacemakerWhen compared with ECG of 30-MAR-2021 10:35,Electronic ventricular pacemaker has replaced Sinus rhythmConfirmed by NONI MARQUEZ ([id number]) on 03/31/2021 4:39:19 PM Referred By: Santana Rust Confirmed by:NONI MARQUEZ at 1639 PATIENT NAME: COLE JEFFREY .EXV141 [id number] for patient bwjlUEYYFHANOCUPZY0802-93-45Q59:39:34 2021-03-31 [id number] [facility] 15:15:[address] [address] PATIENT NAME: COLE JEFFREY ADMIT DATE: 03/28/21ACCOUNT NO: [id number] ROOM NO: [facility] AGE: 81 REPORT TYPE: OPERATIVE REPORT SEX: M ADMITTING PHYSICIAN:Santana Rust MD ATTENDING PHYSICIAN:Santana Rust MD OPERATION DATE: 03/31/2021 CARDIAC SURGERY SERVICE PREOPERATIVE DIAGNOSES: Coronary artery disease, hypertension andhyperlipidemia. POSTOPERATIVE DIAGNOSES: Coronary artery disease, hypertension andhyperlipidemia. PROCEDURES: Right CVP insertion, left femoral arterial monitor line insertion,ultrasound-guided access with SonoSite, right subclavian vein and right commonfemoral artery. The aortocoronary bypass x4 with DICKENS to LAD, saphenous vein todiagonal, OM, right PDA, endoscopic vein harvesting, right greater saphenousvein. SURGEON: Marcello Garvin M.D. LINUX DEVOPS ENGINEER: Annel Godoy PA-C. SECOND LINUX DEVOPS ENGINEER: Kristal podiatry resident. ANESTHESIA: General. COMPLICATIONS: None. DISPOSITION: The patient to the surgical ICU in stable condition. DESCRIPTION OF PROCEDURE: On 03/31/2021, the patient was brought to theoperating room, placed on the operating table in supine position, prepped anddraped in usual fashion. Following introduction of satisfactory generalanesthesia, placed appropriate monitoring line, Mckeon catheter, hips, shoulders,and elbows padded in usual fashion. Right subclavian CVP and left femoralarterial monitoring line were placed using Seldinger percutaneous guidewiretechnique, ultrasound-guided access with SonoSite, right subclavian vein, rightcommon femoral artery. The patient was then prepped and draped in usualfashion. Greater saphenous vein was harvested from the right leg. We attemptedto harvest the right greater saphenous and left greater saphenous, both theseveins were totally occluded and they could not be used for bypass. We usedCryoVein to prepare CryoVein instead for the bypass. The leg wounds wereclosed. Simultaneously, a median sternotomy was performed, left CHARISSE washarvested. The patient was heparinized and cannulated with a 24-Mongolian [place] PATIENT NAME: COLE JEFFREY aortic cannula with a 29 x 37 cavoatrial venous cannula by [place] and then aCalMed 15-Mongolian transatrial retrograde coronary sinus cardioplegia cannula,which is 15-Mongolian the patient was put on full bypass, cooled to 23 centigrade. Topical iced saline placed pericardial well. Aorta cross clamped. Coldpotassium, cardioplegia infused at aortic root, re-infused after eachanastomosis. The patient had continuous crystalloid retrograde cardioplegiainfused during ischemic periods of bypass done with 7-0 Prolene suture sewn withsaphenous vein to the right PDA to the OM and to the diagonal, left CHARISSE to theLAD anastomosed with running 7-0 Prolene suture end-to-side. The patient placedin Trendelenburg. Aortic cross-clamp was removed. Air was purged through theaortic sump cannula. Partial clamps were placed. Aortotomy was made with a 4-5punch, proximal anastomosis with 5-0 Prolene suture, partial clamp removed. Airwas purged with 27-gauge needle. The patient defibrillated, rewarmed, weanedfrom bypass, stable output rhythm, protamine infused, decannulated. Allsurgical sites inspected, hemostatic. One mediastinal pleural chest tubeplaced. Temporary ventriculoatrial skin wire placed. Chest wall closed instandard fashion. The patient was brought out back to the surgical ICU in astable condition. Dictated By: Marcello Garvin MD WT: OP:KATERINE/JABARI/NTSDD: 03/31/2021 15:15:34DT: 03/31/2021 15:49:10Conf#: [id number]/DID#: [id number] cc: Santana Marquez MD Authenticated by Marcello Garvin MD On 03/31/2021 04:16:22 PM at 0416 PATIENT NAME: COLE JEFFREY tyhehu1661-08-17F18:49:00Z.[id number] for patient eowgJMOFBNJQSBUZCC6172-76-04P29:16:48 2021-03-31 [id number]:09:00 [facility] 15:09:00 [facility]Brief Op NoteREPORT#:[id number] REPORT STATUS: SignedDATE:03/31/21 TIME: 1509 PATIENT: COLE JEFFREY UNIT #: [id number]#: [id number] [address] AGE: 81 SEX: M ATTEND: Santana Rust [facility] AUTHOR: Marcello Garvin MD * ALL edits or amendments must be made on the electronic/computer document * Op/Inv Proc Note - BriefPre-procedure diagnosis:Atherocsclerosis of the coronary artery diseasewith unstable anginaPost-procedure diagnosis: same as pre procedure dxProcedures performed:ACB x 4 DICKENS- LAD, Cryopreserved SVG- Diagonal, RPDA and OM.Exploration of the bilateral lower extremity SVGInsertion of right subclavian central line and right femoral arterial line usingsonosite US guidance Primary Surgeon:Marcello Quinterotant(s): TIFFANIE Osman DPM, [id number]:Dr. Esau williamsonAnesthesia: general anesthesiaFindings:See detailed op reportComplications: noneEstimated blood loss in ml's: 1300 ccSpecimens removed/altered: noneDrain(s): Mckeon Catheter Placed, MARY drainApproach: openWound class: cleanDisposition: ICU, stable at 1514 RPT #:[id number] OF REPORTOPOperative [id number]:09:00Z.[id number] for patient gdjtDOHXNRANBTCKVC7599-60-03H00:17:42 2021-03-31 [id number]:14:00 [facility] 08:14:00 [facility] ([facility])Hospitalist Progress NoteREPORT#:[id number] REPORT STATUS: SignedDATE:03/31/21 TIME: 0814 PATIENT: COLE JEFFREY UNIT #: [id number]#: [id number] [address] AGE: 81 SEX: M ATTEND: Santana Rust MDADM AUTHOR: Gm Wallace MD R2 * ALL edits or amendments must be made on the electronic/computer document * Haylee Wallace 03/31/21 0814:Subjective Free Text Subj NotesFree Text Subj Notes:Patient not seen today due to being in the OR for CABG procedure Review of SystemsUnable to obtain due to:Patient in the OR Objective GeneralVS/I O:Vital Signs: Date Time Temp Pulse Resp B/P B/P Pulse O2 O2 Flow FiO2 Mean Ox Delivery Rate 03/31 1700 79 20 100 03/31 1645 80 17 100 03/31 1630 79 20 100 03/31 1615 79 100 03/31 1600 79 100 03/31 1545 98.8 100 03/31 1545 79 19 100 03/31 1545 100 Ventilator 100 03/31 1545 76 100 100 03/31 1530 80 12 100 03/31 1521 80 100 03/31 0800 96.8 76 16 155/78 100 Room air 03/31 0507 98.2 74 18 159/78 104.8 95 Room air 03/31 0006 97.7 57 18 165/73 103.5 97 Room air 03/30 2124 96 Room air 21 03/30 1908 98.1 61 18 158/74 102.0 96 Room air 24 hour I O ending at 0700: 03/31 0700 03/30 1900 Intake Total 975.00 Output Total 720 Balance 255.00 Intake, IV 975.00 Output, Urine 720 Patient 256 lb Weight Weight Bed scale Measurement Method PATIENT WEIGHT: Weight (lb): 240Weight (oz): 8.07Weight (kg): 109.091 Medications:Active Meds + DC'd Last 24 HrsGabapentin (NEURONTIN) 100 MG 2100 PO Clopidogrel Bisulfate (PLAVIX) 75 MG DAILY PO Famotidine (PEPCID) 20 MG BID IV Aspirin (CHILDREN'S ASPIRIN) 162 MG ONCE ONE PO (DC) Albumin Human (ALBUMINAR-5) 250 ML ASDIR PRN IV Calcium Gluconate (CALCIUM GLUCONATE 10%) 1,000 MG ASDIR PRN IV Sodium Chloride (SODIUM CHLORIDE 0.9%) 100 MLDextrose/Water (DEXTROSE 50% IN WATER) 12.5 GM ASDIR PRN IV Dextrose/Water (DEXTROSE 50% IN WATER) 25 GM ASDIR PRN IV Dobutamine HCl/Dextrose (DOBUTamine HCL IN DEXTROSE) 250 ML ASDIR PRN IV Epinephrine (EPINEPHrine/NS 4MG/250ML) 250 ML ASDIR PRN IV Hydrocodone Bitart/Acetaminophen (NORCO 5/325 TABLET (C-II)) 1 TAB Q4H PRN PRN PO Lidocaine HCl/Dextrose (LIDOCAINE HCL IN 5% DEXTROSE) 500 ML ASDIR PRN IV (CKD) Magnesium Sulfate (MAG SULFATE 2GM PREMIX) 50 ML ASDIR PRN IV Magnesium Sulfate/Dextrose (Magnesium Sulfate) 100 ML ASDIR PRN IV Meperidine HCl (DEMEROL (C-II)) 12.5 MG Q6H PRN PRN IM Morphine Sulfate (morphine SULFATE (C-II)) 2 MG Q15M PRN PRN IV Ondansetron HCl (ZOFRAN) 4 MG Q8H PRN PRN IV Potassium Chloride (Potassium Chloride) 50 ML ASDIR PRN IV Potassium Chloride/Dextrose/Sod Cl (DEXTROSE 5%-1/4NS-KCL 20MEQ) 1,000 ML .[id number] IV Lidocaine HCl (XYLOCAINE JELLY 2% UD) 0 .STK-MED ONE .ROUTE (DC) Cefuroxime Sodium (ZINACEF) 1,500 MG Q8H IV Albumin Human (ALBUMINAR-5) 250 ML ASDIR PRN IV Sodium Bicarbonate (SODIUM BICARBONATE) 4.2 GM ASDIR PRN IV (CKD) Insulin Human Regular (HUMULIN R) 0 .STK-MED ONE .ROUTE (DC) Diphenhydramine HCl (BENADRYL) 0 .STK-MED ONE .ROUTE (DC) Famotidine (PEPCID) 0 .STK-MED ONE .ROUTE (DC) Glycopyrrolate (ROBINUL IJ) 0 .STK-MED ONE .ROUTE (DC) Rocuronium Xenia (ZEMURON) 0 .STK-MED ONE .ROUTE (DC) Heparin Sodium (Porcine) (Heparin Sodium) 0 .STK-MED ONE .ROUTE (DC) Dextrose/Water (DEXTROSE 50% IN WATER) 12.5 GM ASDIR PRN IV Dextrose/Water (DEXTROSE 50% IN WATER) 25 GM ASDIR PRN IV Insulin Human Regular (HUMULIN R) 100 UNIT ASDIR IV (CKD) Sodium Chloride (SODIUM CHLORIDE 0.9%) 99 MLNicardipine HCl (CARDENE I.V.) 25 MG ASDIR IV (CKD) Sodium Chloride (SODIUM CHLORIDE 0.9%) 250 MLCalcium Chloride (CALCIUM CHLORIDE) 0 .STK-MED ONE .ROUTE (DC) Heparin Sodium/Sodium Chloride (HEPARIN 1000 UNITS/NS 500ML) 500 ML .STK-MEDONE IV (DC) Glycopyrrolate (ROBINUL IJ) 0 .STK-MED ONE .ROUTE (DC) Lidocaine HCl (XYLOCAINE JELLY 2% UD) 0 .STK-MED ONE .ROUTE (DC) Metoprolol Tartrate (LOPRESSOR) 50 MG NOW ONE PO (DC) Bupivacaine HCl (SENSORCAINE 0.5%) 0 .STK-MED ONE .ROUTE (DC) Gentamicin Sulfate (GARAMYCIN) 0 .STK-MED ONE .ROUTE (DC) Papaverine HCl (PAPAVERINE HCL) 0 .STK-MED ONE .ROUTE (DC) Cardioplegic Solution (PLEGISOL) 5,000 ML .STK-MED ONE IV (DC) Protamine Sulfate (PROTAMINE SULFATE) 0 .STK-MED ONE .ROUTE (DC) Protamine Sulfate (PROTAMINE SULFATE) 0 .STK-MED ONE .ROUTE (DC) Methylprednisolone Sodium Succinate (SOLU-Medrol) 0 .STK-MED ONE .ROUTE (DC) Phenylephrine HCl (KAN-SYNEPHRINE/NS 10MG/100ML) 100 ML .STK-MED ONE IV (DC) Esmolol HCl (BREVIBLOC) 0 .STK-MED ONE .ROUTE (DC) Heparin Sodium (Porcine) (Heparin Sodium) 0 .STK-MED ONE .ROUTE (DC) Fentanyl Citrate (SUBLIMAZE (C-II)) 0 .STK-MED ONE .ROUTE (DC) Etomidate (AMIDATE) 0 .STK-MED ONE .ROUTE (DC) Lidocaine HCl (XYLOCAINE 1%) 5 ML .STK-MED ONE IV (DC) Midazolam HCl (VERSED (C-IV)) 0 .STK-MED ONE .ROUTE (DC) Rocuronium Xenia (ZEMURON) 0 .STK-MED ONE .ROUTE (DC) Cefuroxime Sodium (ZINACEF) 1,500 MG PREOP ONCE IV (DC) Sodium Chloride (SODIUM CHLORIDE 0.9%) 20 ML PREOP ONCE IV (DC) Cefuroxime Sodium (ZINACEF) 0 .STK-MED ONE .ROUTE (DC) Lidocaine HCl (XYLOCAINE 1%) 5 ML .STK-MED ONE IV (DC) Epinephrine (EPINEPHrine/NS 4MG/250ML) 250 ML ONCALL ONE IV (DC) Norepinephrine/Dextrose (NOREPINEPHRINE-D5W 4 MG/250 ML) 250 ML ONCALL ONE IV (DC) Phenylephrine HCl (KAN-SYNEPHRINE/NS 10MG/100ML) 100 ML ONCALL ONE IV (DC) Tranexamic Acid (CYKLOKAPRON) 1,725 MG ONCALL IV (DC) Sodium Chloride (SODIUM CHLORIDE 0.9%) 50 MLTranexamic Acid (CYKLOKAPRON) 3,450 MG ONCALL IV (DC) Sodium Chloride (SODIUM CHLORIDE 0.9%) 250 MLTranexamic Acid (CYKLOKAPRON) 1,738.5 MG ONCALL ONE IV (CAN) Sodium Chloride (SODIUM CHLORIDE 0.9%) 50 MLTranexamic Acid (CYKLOKAPRON) 0.001 MG ONCALL ONE IV (CAN) Sodium Chloride (SODIUM CHLORIDE 0.9%) 250 MLMiscellaneous Information (PHARMACY TO DOSE/EVALUATE) 1 EACH ASDIR MISC (DC) Aspirin (ASPIRIN EC) 81 MG DAILY PO Levothyroxine Sodium (Synthroid) 100 MCG DAILY PO Losartan Potassium (COZAAR) 100 MG DAILY PO (DC) Polyethylene Glycol (MIRALAX) 17 GM DAILY PO (DC) Atorvastatin Calcium (LIPITOR) 80 MG BEDTIME PO Clotrimazole (LOTRIMIN) 1 ROLDAN BID TOPICAL (CKD) Insulin Human Lispro (HumaLOG) LOW DOSE SLIDING SCALE AC HS SUBQ (DC) Oxybutynin Chloride (DITROPAN) 5 MG BEDTIME PO Tamsulosin HCl (FLOMAX) 0.4 MG BID PO Dextrose/Water (DEXTROSE 50% IN WATER) 12.5 GM ASDIR PRN IV (DC) Dextrose/Water (DEXTROSE 50% IN WATER) 25 GM ASDIR PRN IV (DC) Nitroglycerin (NITRO-BID UD) 1 INCH Q6HR TRANSDERM (DC) Finasteride (PROSCAR) 5 MG DAILY PO Glimepiride (AmaryL) 4 MG DAILY PO (DC) Linagliptin (TRADJENTA) 5 MG DAILY PO (DC) Metoprolol Tartrate (LOPRESSOR) 50 MG Q12HR PO (DC) Ondansetron HCl (ZOFRAN) 4 MG Q8H PRN PRN IV Sodium Chloride (SODIUM CHLORIDE 0.9%) 1,000 ML Q10H IV (DC) Free Text Obj NotesFree Text Obj Notes:Unable to obtain due to patient being in the OR for CABG procedure Diagnosis, Assessment PlanProblem List/A P: 1. Coronary artery disease 2. S/P CABG (coronary artery bypass graft) 3. Hypertension 4. Hyperlipidemia 5. Diabetes 6. Peripheral artery disease 7. Tinea pedis 8. Obesity 9. Hypothyroidism 10. Benign prostatic hyperplasia 11. Anemia 12. History of diabetic ulcer of foot Free Text DxA P NotesFree text DxA P notes:81 y/o M significant PMH HTN, HLD, 90 pack-year smoking hx, DM2, CAD, PAD, frequent SVT/PVC, neuropathy presented after angina, severe CAD on cath. Scheduled for CABG 03/31. 03/30/21:- Severe blockages in multiple vessels requiring CABG as per cath report- Currently asx- Multiple labs ordered as per CV surgery including CBC/CMP/coag studies WNL- NPO after midnight for surgery, Continue anticoagulation/abx/medications as per cardiovascular - Hold metoprolol 50 BID due to hypotension- Continue losartan 100 daily, Continue nitro patch q6H, Consider restart amlodipine 5 AM 2.5 PM if remains HTN- Continue Atorvastatin 80 daily- Continue levothyroxine 100 mcg daily- Hold metformin 1000 daily, Continue linagliptin 5 daily, Continue glimepiride 4 daily, Begin glucose monitoring w/ SSI- Continue tamsulosin 0.4 daily, Continue finasteride 5 mg daily, Continue oxybutynin 5 daily- White rash between multiple toes, moreso on L foot- Continue terbinafine cream BID 03/31/21:-Patient to OR for CABG today-Plan per CV team Code: FULLDVT: Lovenox BIDDiet: per CV team Quality: Gen Med Crit Care VTE ProphylaxisVTE prophylaxis initiated: yes Current MedicationsCurrent medication review:I attest that the foregoing medication list in the medical record is true, accurate, and complete to the best of my knowledge. Aisha Lucas 04/01/21 0044:Quality: Gen Med Crit Care Advanced Care Plan 65 or OlderDiscussed with: patientDiscussion included: code status (full code) Attestations Teaching Physician AttestationF/U visit w/ resident:I saw the patient with the resident and . . . agree with the resident's findings and plan. at 1803 at 0045 RPT #:[id number] OF REPORTPRProgress [id number]:14:00Z.[id number] 122AVAvailable for patient agdhZQMRQVTRMQAPUN8580-97-19G01:04:32 2021-03-30 [id number]:44:[id number] [facility] 21:44:00 [address] [place] [address] PATIENT NAME: COLE JEFFREY ADMIT DATE: 03/28/21ACCOUNT NO: [id number] ROOM NO: Z.SI02 AGE: 81 REPORT TYPE: PROGRESS NOTE SEX: M ADMITTING PHYSICIAN:Santana Rust MD ATTENDING PHYSICIAN:Santana Rust MD DATE: 03/30/2021 CARDIAC SURGERY SERVICE The patient is seen at bedside in telemetry unit. The patient currently isstable. The patient admitted to have a coronary artery bypass [facility]. Procedure, alternatives, possible risks, and complications wereexplained to the patient. He understands, accepts, and wants to proceed. Hehad a chance to ask question and wants to proceed. Dictated By: Marcello Garvin MD WT: PN:Z.HIM/MCKRO/NTSDD: 03/30/2021 21:44:28DT: 03/30/2021 21:50:00Conf#: [id number]/DID#: [id number] Authenticated by Marcello Garvin MD On 03/31/2021 04:16:06 PM at 0416 PATIENT NAME: COLE JEFFREY Htsd0409-45-07B59:50:00Z.[id number] 95AVAvailable for patient azlhQDKEVSTPLCOWXU0327-95-07F48:16:39 2021-03-30 [id number]:44:00 [facility] 17:44:00 [facility])Hospitalist Progress NoteREPORT#:[id number] REPORT STATUS: SignedDATE:03/30/21 TIME: 1743 PATIENT: COLE JEFFREY UNIT #: [id number]#: [id number] [facility]: 81 SEX: M ATTEND: Santana Rust AUTHOR: Vidal Larry MD, MPH R1 * ALL edits or amendments must be made on the electronic/computer document * Vidal Larry 03/30/21 174:SubjectiveChief Complaint:Pt is doing well today, no significant complaints. Scheduled for CABG tomorrow. Review of SystemsConstitutional:Denies: chills, fatigue, fever, generalized weakness, lethargy, malaise, recent wt loss. Respiratory:Reports: COWAN (dyspnea on exertion). Denies: hemoptysis, non productive cough, parox nocturnal dyspnea, pleurisy, pleuritic pain, pneumonia, productive cough (sputum), SOB, wheezing. Cardiovascular:Reports: COWAN (dyspnea on exertion). Denies: chest pain, edema, orthopnea, palpitations, parox nocturnal dyspnea. All systems rev neg: except as marked Objective GeneralVS/I O:Vital Signs: Date Time Temp Pulse Resp B/P B/P Pulse O2 O2 Flow FiO2 Mean Ox Delivery Rate 03/30 1714 96 Room air 21 03/30 1611 97.7 41 17 155/78 103.6 95 Room air 03/30 1140 97.7 58 16 149/68 95.1 96 03/30 0744 98.1 46 18 146/67 93.2 97 Room air 03/30 0409 98.1 48 16 157/79 105.1 95 03/30 0007 97.7 53 16 131/64 86 96 03/29 2048 97.5 55 16 142/63 89.2 95 24 hour I O ending at 0700: 03/29 1900 03/30 0700 Intake Total Output Total 300 1350 Balance -300 -1350 Output, Urine 300 1350 PATIENT WEIGHT: Weight (lb): 255Weight (oz): 8.25Weight (kg): 115.900 Medications:Active Meds + DC'd Last 24 HrsCefuroxime Sodium (ZINACEF) 1,500 MG PREOP ONCE IV (CKD) Sodium Chloride (SODIUM CHLORIDE 0.9%) 20 ML PREOP ONCE IV (CKD) Tranexamic Acid (CYKLOKAPRON) 1,725 MG ONCALL IV Sodium Chloride (SODIUM CHLORIDE 0.9%) 50 MLTranexamic Acid (CYKLOKAPRON) 3,450 MG ONCALL IV (CKD) Sodium Chloride (SODIUM CHLORIDE 0.9%) 250 MLMiscellaneous Information (PHARMACY TO DOSE/EVALUATE) 1 EACH ASDIR MISC Aspirin (ASPIRIN EC) 81 MG DAILY PO Enoxaparin Sodium (LOVENOX) 40 MG Q12HR SUBQ (DC) Levothyroxine Sodium (Synthroid) 100 MCG DAILY PO Losartan Potassium (COZAAR) 100 MG DAILY PO Polyethylene Glycol (MIRALAX) 17 GM DAILY PO Atorvastatin Calcium (LIPITOR) 80 MG BEDTIME PO Clotrimazole (LOTRIMIN) 1 ROLDAN BID TOPICAL (CKD) Insulin Human Lispro (HumaLOG) LOW DOSE SLIDING SCALE AC HS SUBQ Oxybutynin Chloride (DITROPAN) 5 MG BEDTIME PO Tamsulosin HCl (FLOMAX) 0.4 MG BID PO Dextrose/Water (DEXTROSE 50% IN WATER) 12.5 GM ASDIR PRN IV Dextrose/Water (DEXTROSE 50% IN WATER) 25 GM ASDIR PRN IV Nitroglycerin (NITRO-BID UD) 1 INCH Q6HR TRANSDERM Finasteride (PROSCAR) 5 MG DAILY PO Glimepiride (AmaryL) 4 MG DAILY PO Linagliptin (TRADJENTA) 5 MG DAILY PO Metoprolol Tartrate (LOPRESSOR) 50 MG Q12HR PO (DA) Acetaminophen (TYLENOL) 650 MG Q4H PRN PRN PO (DC) Hydrocodone Bitart/Acetaminophen (NORCO 5/325 TABLET (C-II)) 1 TAB Q4H PRN PRN PO (DC) Ondansetron HCl (ZOFRAN) 4 MG Q8H PRN PRN IV Sodium Chloride (SODIUM CHLORIDE 0.9%) 1,000 ML Q10H IV Nutrition assessment:The data set between the solid lines has been imported from the dietitian's assessment. Any exceptions have been noted under Provider comments. BMI Calculated: 34.7Nutrition related diagnosis: Nutrition diagnosis details: Nutrition problem: Nutrition etiology: Nutrition signs and symptoms: Nutrition prescription: Dietitian name: Assessment completed: Provider comments on imported dietitian assessment: Physical ExamGeneral appearance: obese, alert, awake, oriented, no acute distress, pleasant, conversational, mental status normal, no respiratory distressHead/Eyes: atraumatic, normal conjunctiva/scleraCardiovascular: irregular rhythm (FREQUENT PVC, SVT), murmur (2/6 BLOWING SYSTOLIC), pedal pulses (PRESENT), normal capillary refillRespiratory: aerating well, clear to auscultation, symmetric expansion, no distressAbdomen: non-tender, softExtremities: edema (1+ lower extremity), moves allMusculoskeletal: normal inspection, painless range of motionNeuro/HUMAN RESOURCES LEADER: alert, oriented X 3, CNII-XII intactSkin: rash (TINEA PEDIS), dry, normal temperaturePsychiatry: normal affect, normal mood ResultsFindings/Data:Laboratory Tests 03/29 0742 1015 1015 1142 Chemistry Sodium (137 - 145 MMOL/L) 136 L Potassium (3.5 - 5.1 MMOL/L) 4.0 Chloride (98 - 107 MMOL/L) 102 Carbon Dioxide (22 - 30 MMOL/L) 28 BUN (9 - 20 MG/DL) 14 Creatinine (0.66 - 1.25 MG/DL) 0.80 Glomerular Filtr Rate > 60 Glucose (74 - 106 MG/DL) 151 H POC Glucose (60 - 99 MG/DL) 148 H 115 H 109 H Mean Blood Glucose (70 - 110 MG/DL) 128 H Hemoglobin A1c (4.8 - 5.9 %) 6.1 H Calcium (8.4 - 10.2 MG/DL) 8.5 Total Bilirubin (0.2 - 1.3 MG/DL) 0.7 AST (17 - 59 UNITS/L) 23 ALT (0 - 49 UNITS/L) 20 Total Alk Phosphatase (38 - 126 UNITS/L) 45 Total Protein (6.2 - 7.6 G/DL) 6.8 Albumin (3.5 - 5.0 G/DL) 4.0 03/30 1610 Chemistry POC Glucose (60 - 99 MG/DL) 121 H Laboratory Tests 03/30 03/30 1015 1015 Coagulation INR (0.86 - 1.14) 1.1 APTT (25.1 - 36.5 SECONDS) 39.4 H PT Patient/Control Mix (9.5 - 12.7 SECONDS) 12.2 Plt P2Y12 React Units (194 - 418 PRU) 275 Laboratory Tests 03/30 1015 Hematology WBC (3.8 - 9.8 K/MM3) 9.1 RBC (3.95 - 5.67 M/MM3) 4.38 Hgb (12.4 - 16.7 G/DL) 12.5 Hct (35.9 - 49.5 %) 38.6 MCV (81.7 - 96.1 fL) 88 MCH (27.6 - 33.2 pg) 28.5 MCHC (32.9 - 35.5 %) 32.4 L RDW (12.1 - 15.2 %) 14.1 Plt Count (129 - 368 K/MM3) 232 MPV (7.4 - 10.4 fl) 10.4 Neut % (Auto) (43 - 75 %) 61.1 Lymph % (Auto) (14 - 44 %) 22.4 Ocean % (Auto) (4 - 13 %) 9.8 Eos % (Auto) (0 - 6 %) 5.2 Baso % (Auto) (0 - 2 %) 0.6 Neut # (Auto) (2.0 - 7.6 K/mm3) 5.56 Lymph # (Auto) (1.0 - 3.8 K/mm3) 2.03 Ocean # (Auto) (0.1 - 0.8 K/mm3) 0.89 H Eos # (Auto) (0.0 - 0.2 K/mm3) 0.47 H Baso # (Auto) (0.0 - 0.2 K/mm3) 0.05 Immature Gran % (0.0 - 2.0 %) 0.9 Nucleated RBC % (0 - 1.0 %) 0.0 Nucleated RBCs # (Man) (0.0 - 0.1 K/mm3) 0.00 Laboratory Tests 03/30 1015 Serology HIV Ag/Ab Combo Qual (NONREACTIVE) AB/AG NON REACTIVE Radiology data:Recent Impressions:RADIOLOGY - XR CHEST 1V 03/30 1020 Report Impression - Status: SIGNED Entered: 03/30/2021 1036 IMPRESSION:Cardiomegaly with mild congestive changes bilaterally.Impression By: Claudio - Eleanor Pablo MD Results: labs reviewed, vital signs stable, current med profile rev'd Diagnosis, Assessment PlanProblem List/A P: 1. Coronary artery disease 2. Hypertension 3. Hyperlipidemia 4. Diabetes 5. Peripheral artery disease 6. Tinea pedis 7. Obesity 8. Hypothyroidism 9. Benign prostatic hyperplasia 10. Anemia Orders: Procedure Date/time Status NPO After Midnight 03/30 715 Active FMRP-IM Resident Consult 03/30 715 Active Free Text DxA P NotesFree text DxA P notes:81 y/o M significant PMH HTN, HLD, 90 pack-year smoking hx, DM2, CAD, PAD, frequent SVT/PVC, neuropathy presented after angina, severe CAD on cath. Scheduled for CABG 03/31. #CAD#CABG planned 03/31- Severe blockages in multiple vessels requiring CABG as per cath report- Currently asx- Multiple labs ordered as per CV surgery including CBC/CMP/coag studies WNLPlan: NPO after midnight for surgery Continue anticoagulation/abx/medications as per cardiovascular surgery Manage as per cardiology, cardiovascular surgery #HTN- HTN to 130-140/60s on partial home meds- Defer to cardiologyPlan: Hold metoprolol 50 BID due to hypotension Continue losartan 100 daily Continue nitro patch q6H Consider restart amlodipine 5 AM 2.5 PM if remains HTN Manage as per cardiology #Anemia- Hgb 12.3 > 11.4 > 12.5Plan: Continue to monitor #HLD:Continue Atorvastatin 80 daily #HypothyroidismContinue levothyroxine 100 mcg daily #AT2Oqyd metformin 1000 dailyContinue linagliptin 5 dailyContinue glimepiride 4 dailyBegin glucose monitoring w/ SSI #BPHContinue tamsulosin 0.4 dailyContinue finasteride 5 mg dailyContinue oxybutynin 5 daily #Tinea Pedis- White rash between multiple toes, moreso on L footPlan: Continue terbinafine cream BID Code: FULLDVT: Lovenox BIDDiet: Cardiac diabetic, NPO after midnightDispo: Pending CABG and recovery Quality: Gen Med Crit Care VTE ProphylaxisVTE prophylaxis initiated: yes Current MedicationsCurrent medication review:I attest that the foregoing medication list in the medical record is true, accurate, and complete to the best of my knowledge. Santana Rust 03/30/21 3898:Attestations Teaching Physician AttestationF/U visit w/ resident:I saw the patient with the resident, Vidal Larry, PGY1, and agree with the resident's findings and plan. at 1751 at 1759 RPT #:[id number] OF REPORTPRProgress [id number]:44:00Z.[id number] 400AVAvailable for patient [id number]:52:18 2021-03-30 [id number] [facility] 10:35:00 [address] [place] [address] PATIENT NAME: COLE JEFFREY ADMIT DATE: 03/28/21ACCOUNT NO: [id number] ROOM NO: Z.364 AGE: 81 REPORT TYPE: ELECTROCARDIOGRAM SEX: M ADMITTING PHYSICIAN:Santana Rust MD ATTENDING PHYSICIAN:Santana Rust MD Order:[id number] Reason : Cardiac Surgery Preop Test Date/Time Stamp:TueMar 30 2021 10:35:21Blood Pressure : / mmHGVent. Rate : 060 BPM Atrial Rate : 060 BPM P-R Int : 176 ms QRS Dur : 162 ms QT Int : 454 ms P-R-T Axes : 042 -63 069 degrees QTc Int : 454 ms Sinus rhythm with premature atrial complexesRight bundle branch blockLeft anterior fascicular block Bifascicular block Left ventricular hypertrophy with repolarization abnormalityAbnormal ECGWhen compared with ECG of 29-MAR-2021 08:54,premature ventricular complexes are no longer presentpremature atrial complexes are now presentCriteria for Septal infarct are no longer presentConfirmed by NONI MARQUEZ ([id number]) on 03/30/2021 1:22:56 PM Referred By: Santana Rust Confirmed by:NONI MARQUEZ at 1322 PATIENT NAME: COLE JEFFREY .[id number] for patient [id number]:23:27 2021-03-29 [id number] [facility] 23:39:[address] [address] PATIENT NAME: COLE JEFFREY ADMIT DATE: 03/28/21ACCOUNT NO: [id number] ROOM NO: [facility] AGE: 81 REPORT TYPE: PROGRESS NOTE SEX: M ADMITTING PHYSICIAN:Santana Rust MD ATTENDING PHYSICIAN:Santana Rust MD DATE: 03/29/2021 The patient is seen at bedside in telemetry unit. The patient is currentlystable. The patient is making appropriate progress. The patient has beenstarted on subcutaneous Lovenox for anticoagulation. Plan for surgery onTuesday morning. Dictated By: Marcello Garvin MD WT: PN:KATERINE/JABARI/NTSDD: 03/29/2021 23:39:17DT: 03/30/2021 00:09:03Conf#: [id number]/DID#: [id number] Authenticated by Marcello Garvin MD On 03/31/2021 04:16:05 PM at 0416 PATIENT NAME: COLE JEFFREY [id number]:09:00Z.[id number] 02AVAvailable for patient [id number]:16:39 2021-03-29 [id number]:11:00 [facility] 10:11:00 [facility] ([facility])Cardiology Progress NoteREPORT#:[id number] REPORT STATUS: SignedDATE:03/29/21 TIME: 1011 PATIENT: COLE JEFFREY UNIT #: [id number]#: [id number] [facility]GE[facility] 81 SEX: M ATTEND: Santana Rust MDADM AUTHOR: Ruiz Bhatti MD * ALL edits or amendments must be made on the electronic/computer document * SubjectiveChief Complaint:CADPatient reports:No: chest pain, palpitations, shortness of breath. Objective GeneralVS/I O:24 hour I O ending at 0700: 03/29 0700 03/28 1900 Intake Total 1350.00 Output Total 950 Balance 400.00 Intake, IV 1200.00 Intake, Oral 150 Number 1 Bowel Movements Number Voids 1 Output, Urine 950 Patient 114.6 kg Weight Weight Bed scale Measurement Method Vital Signs: Date Time Temp Pulse Resp B/P B/P Pulse O2 O2 Flow FiO2 Mean Ox Delivery Rate 03/29 0733 97.9 47 18 138/70 92.7 95 Room air 03/29 0445 98.2 52 16 129/61 83 96 03/29 0011 97.7 40 16 130/65 86.6 95 03/28 2032 97.7 49 147/63 91.0 93 03/28 1601 98.2 52 16 132/60 84.1 95 Room air 03/28 1325 99.1 46 16 142/64 90.3 95 Room air PATIENT WEIGHT: Weight (lb): 252Weight (oz): 10.4Weight (kg): 114.600 Medications:Active Meds + DC'd Last 24 HrsAspirin (ASPIRIN EC) 81 MG DAILY PO Enoxaparin Sodium (LOVENOX) 40 MG Q12HR SUBQ Levothyroxine Sodium (Synthroid) 100 MCG DAILY PO Losartan Potassium (COZAAR) 100 MG DAILY PO Polyethylene Glycol (MIRALAX) 17 GM DAILY PO Atorvastatin Calcium (LIPITOR) 80 MG BEDTIME PO Clotrimazole (LOTRIMIN) 1 ROLDAN BID TOPICAL (CKD) Insulin Human Lispro (HumaLOG) LOW DOSE SLIDING SCALE AC HS SUBQ Oxybutynin Chloride (DITROPAN) 5 MG BEDTIME PO Tamsulosin HCl (FLOMAX) 0.4 MG BID PO Dextrose/Water (DEXTROSE 50% IN WATER) 12.5 GM ASDIR PRN IV Dextrose/Water (DEXTROSE 50% IN WATER) 25 GM ASDIR PRN IV Magnesium Citrate (CITRATE OF MAGNESIA) 150 ML NOW ONE PO (DC) Nitroglycerin (NITRO-BID UD) 1 INCH Q6HR TRANSDERM Finasteride (PROSCAR) 5 MG DAILY PO Glimepiride (AmaryL) 4 MG DAILY PO Linagliptin (TRADJENTA) 5 MG DAILY PO Metoprolol Tartrate (LOPRESSOR) 50 MG Q12HR PO (DA) Tamsulosin HCl (FLOMAX) 0.4 MG DAILY PO (DC) Acetaminophen (TYLENOL) 650 MG Q4H PRN PRN PO Hydrocodone Bitart/Acetaminophen (NORCO 5/325 TABLET (C-II)) 1 TAB Q4H PRN PRN PO Ondansetron HCl (ZOFRAN) 4 MG Q8H PRN PRN IV Sodium Chloride (SODIUM CHLORIDE 0.9%) 1,000 ML ONCE ONE IV (DC) Sodium Chloride (SODIUM CHLORIDE 0.9%) 1,000 ML Q10H IV Physical ExamGeneral appearance: alert, awake, orientedHead/Eyes: atraumatic, normocephalicENT: moist mucosal membranesNeck: no JVDCardiovascular: CV assessment: regular rate and rhythmRespiratory: clear to auscultation, no distressLower extremity: LE assessment: no edemaMusculoskeletal: full range of motionNeuro/HUMAN RESOURCES LEADER: alert, oriented X 3, CN II-XII intactSkin: dry, intactPsychiatry: normal affect, normal judgment/insight, normal mood ResultsFindings/Data:Laboratory Tests 03/29 03/29 03/29 03/28 0750 0410 0410 2130 Chemistry Sodium (137 - 145 MMOL/L) 136 L Potassium (3.5 - 5.1 MMOL/L) 4.0 Chloride (98 - 107 MMOL/L) 103 Carbon Dioxide (22 - 30 MMOL/L) 30 Anion Gap (14 - 24 MMOL/L) 7 L BUN (9 - 20 MG/DL) 19 Creatinine (0.66 - 1.25 MG/DL) 1.00 Glomerular Filtr Rate > 60 Glucose (74 - 106 MG/DL) 102 POC Glucose (60 - 99 MG/DL) 111 H 121 H Calcium (8.4 - 10.2 MG/DL) 8.4 Phosphorus (2.5 - 4.5 MG/DL) 3.1 Magnesium (1.6 - 2.3 MG/DL) 2.1 Laboratory Tests 03/29 0410 Hematology WBC (3.8 - 9.8 K/MM3) 8.0 RBC (3.95 - 5.67 M/MM3) 3.95 Hgb (12.4 - 16.7 G/DL) 11.4 L Hct (35.9 - 49.5 %) 34.3 L MCV (81.7 - 96.1 fL) 87 MCH (27.6 - 33.2 pg) 28.9 MCHC (32.9 - 35.5 %) 33.2 RDW (12.1 - 15.2 %) 14.0 Plt Count (129 - 368 K/MM3) 233 MPV (7.4 - 10.4 fl) 10.4 Neut % (Auto) (43 - 75 %) 56.5 Lymph % (Auto) (14 - 44 %) 22.7 Ocean % (Auto) (4 - 13 %) 12.3 Eos % (Auto) (0 - 6 %) 7.5 H Baso % (Auto) (0 - 2 %) 0.6 Neut # (Auto) (2.0 - 7.6 K/mm3) 4.49 Lymph # (Auto) (1.0 - 3.8 K/mm3) 1.81 Ocean # (Auto) (0.1 - 0.8 K/mm3) 0.98 H Eos # (Auto) (0.0 - 0.2 K/mm3) 0.60 H Baso # (Auto) (0.0 - 0.2 K/mm3) 0.05 Immature Gran % (0.0 - 2.0 %) 0.4 Nucleated RBC % (0 - 1.0 %) 0.0 Nucleated RBCs # (Man) (0.0 - 0.1 K/mm3) 0.00 Laboratory Tests 03/29 0410 Chemistry Magnesium (1.6 - 2.3 MG/DL) 2.1 Diagnosis, Assessment Plan Free Text DxA P NotesFree Text DxA P Notes:IMP: CAD - multivessel HTN HLP DM PLAN: Continue medical rx. For ACB at 0852 RPT #:[id number] OF REPORTPRProgress [id number]:11:00Z.[id number] 117AVAvailable for patient [id number]:52:18 2021-03-29 [id number] [facility] 08:54:[address] [address] PATIENT NAME: COLE JEFFREY ADMIT DATE: 03/28/21ACCOUNT NO: [id number] ROOM NO: 364 AGE: 81 REPORT TYPE: ELECTROCARDIOGRAM SEX: M ADMITTING PHYSICIAN:Santana Rust MD ATTENDING PHYSICIAN:Santana Rust MD Order:[id number] Reason : CAD Test Date/Time Stamp:TueMar 29 2021 08:54:20Blood Pressure : / mmHGVent. Rate : 061 BPM Atrial Rate : 061 BPM P-R Int : 174 ms QRS Dur : 158 ms QT Int : 476 ms P-R-T Axes : 000 -57 062 degrees QTc Int : 479 ms Sinus rhythm with sinus arrhythmia with occasional premature ventricularcomplexesRight bundle branch blockLeft anterior fascicular block Bifascicular block Minimal voltage criteria for LVH, may be normal variantSeptal infarct , age undeterminedAbnormal ECGWhen compared with ECG of 28-MAR-2021 09:41,premature ventricular complexes are now present(RBBB and left anterior fascicular block) has replaced Nonspecificintraventricular blockConfirmed by NONI MARQUEZ ([id number]) on 03/29/2021 10:39:17 AM Referred By: Noni Marquez Confirmed by:NONI MARQUEZ at 1039 PATIENT NAME: COLE JEFFREY .[id number] for patient [id number]:39:45 2021-03-29 [id number] [facility] 08:54:[address] [facility] [address] [address] PATIENT NAME: COLE JEFFREY ADMIT DATE: 03/28/21ACCOUNT NO: [id number] ROOM NO: [facility] AGE: 81 REPORT TYPE: ELECTROCARDIOGRAM SEX: M ADMITTING PHYSICIAN:Santana Rust MD ATTENDING PHYSICIAN:Santana Rust MD Order:[id number] Reason : CAD Test Date/Time Stamp:TueMar 29 2021 08:54:20Blood Pressure : / mmHGVent. Rate : 061 BPM Atrial Rate : 061 BPM P-R Int : 174 ms QRS Dur : 158 ms QT Int : 476 ms P-R-T Axes : 000 -57 062 degrees QTc Int : 479 ms Sinus rhythm with sinus arrhythmia with occasional premature ventricularcomplexesRight bundle branch blockLeft anterior fascicular block Bifascicular block Minimal voltage criteria for LVH, may be normal variantSeptal infarct , age undeterminedAbnormal ECGWhen compared with ECG of 28-MAR-2021 09:41,premature ventricular complexes are now present(RBBB and left anterior fascicular block) has replaced Nonspecificintraventricular blockConfirmed by NONI MARQUEZ ([id number]) on 03/30/2021 1:23:09 PM Referred By: Noni Marquez Confirmed by:NONI MARQUEZ at 1323 PATIENT NAME: COLE JEFFREY .RFY575 [id number] for patient [id number]:23:37 2021-03-29 [id number]:23:00 [facility] 07:23:00 [facility] ([facility])Hospitalist Progress NoteREPORT#:[id number] REPORT STATUS: SignedDATE:03/29/21 TIME: 722 PATIENT: COLE JEFFREY UNIT #: [id number]#: [id number] [facility]GE: 81 SEX: M ATTEND: Santana Rust MDA AUTHOR: Lebron Robles MD R1 * ALL edits or amendments must be made on the electronic/computer document * Lebron Robles 03/29/21 0723:SubjectiveHPI:Patient resting in bed this morning. Denies chest pain or palpitations of the heart. Says that has has been in bed overnight, has not been walking in his room. Denies dizziness or lightheadedness. Review of SystemsConstitutional:Denies: chills, fatigue, fever. Respiratory:Denies: COWAN (dyspnea on exertion), non productive cough, SOB. Cardiovascular:Denies: chest pain, edema, palpitations. GI:Denies: abdominal pain, constipation, diarrhea, nausea, vomiting. :Denies: dysuria, frequency, urgency. Neuro:Denies: dizziness, lightheaded. Psych:Denies: anxiety, depression. All systems rev neg: except as marked Objective GeneralVS/I O:Vital Signs: Date Time Temp Pulse Resp B/P B/P Pulse O2 O2 Flow FiO2 Mean Ox Delivery Rate 03/29 0445 98.2 52 16 129/61 83 96 03/29 0011 97.7 40 16 130/65 86.6 95 03/28 2032 97.7 49 147/63 91.0 93 03/28 1601 98.2 52 16 132/60 84.1 95 Room air 03/28 1325 99.1 46 16 142/64 90.3 95 Room air 24 hour I O ending at 0700: 03/28 1900 03/29 0700 Intake Total 1350.00 Output Total 950 Balance 400.00 Intake, IV 1200.00 Intake, Oral 150 Number 1 Bowel Movements Number Voids 1 Output, Urine 950 Patient 114.6 kg Weight Weight Bed scale Measurement Method PATIENT WEIGHT: Weight (lb): 252Weight (oz): 10.4Weight (kg): 114.600 Medications:Active Meds + DC'd Last 24 HrsAspirin (ASPIRIN EC) 81 MG DAILY PO Enoxaparin Sodium (LOVENOX) 40 MG Q12HR SUBQ Levothyroxine Sodium (Synthroid) 100 MCG DAILY PO Losartan Potassium (COZAAR) 100 MG DAILY PO Polyethylene Glycol (MIRALAX) 17 GM DAILY PO Atorvastatin Calcium (LIPITOR) 80 MG BEDTIME PO Clotrimazole (LOTRIMIN) 1 ROLDAN BID TOPICAL (CKD) Insulin Human Lispro (HumaLOG) LOW DOSE SLIDING SCALE AC HS SUBQ Oxybutynin Chloride (DITROPAN) 5 MG BEDTIME PO Tamsulosin HCl (FLOMAX) 0.4 MG BID PO Dextrose/Water (DEXTROSE 50% IN WATER) 12.5 GM ASDIR PRN IV Dextrose/Water (DEXTROSE 50% IN WATER) 25 GM ASDIR PRN IV Magnesium Citrate (CITRATE OF MAGNESIA) 150 ML NOW ONE PO (DC) Nitroglycerin (NITRO-BID UD) 1 INCH Q6HR TRANSDERM Finasteride (PROSCAR) 5 MG DAILY PO Glimepiride (AmaryL) 4 MG DAILY PO Linagliptin (TRADJENTA) 5 MG DAILY PO Metoprolol Tartrate (LOPRESSOR) 50 MG Q12HR PO (DA) Tamsulosin HCl (FLOMAX) 0.4 MG DAILY PO (DC) Nitroglycerin (NITRO-BID UD) 0 .STK-MED ONE .ROUTE (DC) Acetaminophen (TYLENOL) 650 MG Q4H PRN PRN PO Hydrocodone Bitart/Acetaminophen (NORCO 5/325 TABLET (C-II)) 1 TAB Q4H PRN PRN PO Ondansetron HCl (ZOFRAN) 4 MG Q8H PRN PRN IV Sodium Chloride (SODIUM CHLORIDE 0.9%) 1,000 ML ONCE ONE IV (DC) Sodium Chloride (SODIUM CHLORIDE 0.9%) 1,000 ML Q10H IV Physical ExamHead/Eyes: atraumatic, normal conjunctiva/scleraCardiovascular: irregular rhythm (FREQUENT PVC, SVT), murmur (2/6 BLOWING SYSTOLIC), pedal pulses (PRESENT), normal capillary refillRespiratory: aerating well, clear to auscultation, symmetric expansion, no distressAbdomen: non-tender, softExtremities: edema (1+ lower extremity), moves allMusculoskeletal: normal inspection, painless range of motionNeuro/HUMAN RESOURCES LEADER: alert, oriented X 3, CNII-XII intactSkin: rash (TINEA PEDIS), dry, normal temperaturePsychiatry: normal affect, normal mood Diagnosis, Assessment PlanProblem List/A P: 1. Coronary artery disease 2. Hypertension 3. Hyperlipidemia 4. Diabetes 5. Peripheral artery disease 6. Tinea pedis 7. Obesity 8. Hypothyroidism 9. Benign prostatic hyperplasia 10. Anemia Free Text DxA P NotesFree text DxA P notes:81 y/o M significant PMH HTN, HLD, 90 pack-year smoking hx, DM2, CAD, PAD, frequent SVT/PVC, neuropathy presented after angina, severe CAD on cath. Scheduled for CABG 03/31. #CAD#CABG planned 03/31- Severe blockages in multiple vessels requiring CABG as per cath report- Currently asxPlan: Repeat CBC, BMP in AM Begin lovenox and bridge to surgery Manage as per cardiology, cardiovascular surgery #HTN- HTN to 130-140/60s on partial home meds- Defer to cardiologyPlan: Continue metoprolol 50 BID Continue losartan 100 daily Continue nitro patch q6H Consider restart amlodipine 5 AM 2.5 PM if remains HTN Manage as per cardiology #Anemia- Hgb 12.3Plan: Continue to monitor #HLD:Continue Atorvastatin 80 daily #HypothyroidismContinue levothyroxine 100 mcg daily #XH3Xtuq metformin 1000 dailyContinue linagliptin 5 dailyContinue glimepiride 4 dailyBegin glucose monitoring w/ SSI #BPHContinue tamsulosin 0.4 dailyContinue finasteride 5 mg dailyContinue oxybutynin 5 daily #Tinea Pedis- White rash between multiple toes, moreso on L footPlan: Begin terbinafine cream BID 03/29/21-CABG planned 03/31; patient with previous evidence of PVCs on Holter monitoring. Anticipate PVC resolution with CABG.-Continue losartan 100 daily, nitro patch q6H for BP-To hold metoprolol 50 BID for bradycardia-CMP WNL-Continue linagliptin 5 daily, glimepiride 4 daily, SSI for DM control-Hgb 11.4, continue to follow-Continue same other medical therapy Code: FULLDVT: Lovenox BIDDiet: Cardiac diabeticDispo: Pending CABG and recovery Quality: Gen Med Crit Care VTE ProphylaxisVTE prophylaxis initiated: yes Current MedicationsCurrent medication review:I attest that the foregoing medication list in the medical record is true, accurate, and complete to the best of my knowledge. Santana Rust 03/29/21 1649:Attestations Teaching Physician AttestationF/U visit w/ resident:I saw the patient with the resident, Lebron Robles, PGY1, and agree with the resident's findings and plan. at 1436 at 1649 RPT #:[id number] OF REPORTPRProgress [id number]:23:00Z.[id number] for patient [id number]:36:32 2021-03-28 [id number]:03:00 [facility] 17:03:00 [facility])Hospitalist History PhysicalREPORT#:[id number] REPORT STATUS: SignedDATE:03/28/21 TIME: 1702 PATIENT: COLE JEFFREY [place] UNIT #: [id number]#: [id number] [address] AGE: 81 SEX: M ATTEND: Santana Rust MDADM AUTHOR: Vidal Larry MD, MPH R1 * ALL edits or amendments must be made on the electronic/computer document * Vidal Larry 03/28/21 170:History of Present Illness HPIChief complaint:CHEST PAINPCP:PCP: Noni Marquez MD HPI:81 y/o M significant PMH HTN, HLD, 90 pack-year smoking hx, DM2, CAD, PAD, frequent SVT/PVC, neuropathy presented after angina.As per pt he has a lot of issues w/ his feet due to hx infected diabetic ulcer and uses an electric wheelchair. 03/20 pt ent shopping and when reaching up started having severe 10/10 L arm pain lasting 15-20 seconds. 03/[facility] technology solutions architect ran multiple tests that were negative but convinced pt to return to Dr. Marquez. 03/24 stress test showing possible inferior cardiac ischemia. Had cath done 03/28/21 showing severe coronary artery disease involving multiplearteries requiring future CABG. Previous cath in 1993 w/o issue.Currently pt feels well w/o cardiovascular sx.Planning on CABG 03/31 as per cardiovascular surgery. History Past Medical Surgical HxPatient History: 1. Coronary artery disease 2. Hypertension 3. Hyperlipidemia 4. Diabetes 5. Peripheral artery disease 6. Neuropathy 7. History of diabetic ulcer of foot 8. Hypothyroidism 9. Obesity 10. Benign prostatic hyperplasia 11. History of skin cancer 12. History of partial amputation of toe 13. History of bilateral knee replacement 14. Family history of heart disease 15. Former heavy cigarette smoker (20-39 per day) 16. Social alcohol use Social HistorySmoking status: Smoking status for patients 13 years old or older: Former Smoker Date last smoked: 04/23/87 Packs per day: 3 Pack years: 0 Medication/Allergy-Vaccine HxAllergies:Coded Allergies:Sulfa (Sulfonamide Antibiotics) (ITCHING 03/28/21)canagliflozin (From INVOKANA) (ITCHING 03/28/21) Review of SystemsConstitutional:Denies: chills, fatigue, fever, generalized weakness, lethargy, malaise, recent wt loss. Skin:Reports: rash (TINEA PEDIS). Respiratory:Reports: COWAN (dyspnea on exertion). Denies: hemoptysis, non productive cough, parox nocturnal dyspnea, pleurisy, pleuritic pain, pneumonia, productive cough (sputum), SOB, wheezing. Cardiovascular:Reports: chest pain. Denies: COWAN (dyspnea on exertion), edema, orthopnea, palpitations, parox nocturnal dyspnea. All systems rev neg: except as noted Physical ExamVS/I O:Vital Signs Date Temp Pulse Resp B/P B/P Mean Pulse Ox FiO2 03/28 97.7-99.1 46-52 16 132-147/60-64 84.1-91.0 93-95 Last Documented: Result Date Time Pulse Ox 93 03/28 2032 B/P 147/63 03/28 2032 B/P Mean 91.0 03/28 2032 Temp 97.7 03/28 2032 Pulse 49 03/28 2032 O2 Delivery Room air 03/28 160 Resp 16 03/28 1601 Patient Weight and BMI Weight (kg): BMI: General appearance: obese, alert, awake, oriented, no acute distress, pleasant, conversational, mental status normal, no respiratory distressHead/Eyes: atraumatic, normal conjunctiva/scleraCardiovascular: irregular rhythm (FREQUENT PVC, SVT), murmur (2/6 BLOWING SYSTOLIC), pedal pulses (PRESENT), normal capillary refillRespiratory: aerating well, clear to auscultation, symmetric expansion, no distressAbdomen: non-tender, softExtremities: moves all, no edemaMusculoskeletal: normal inspection, painless range of motionNeuro/HUMAN RESOURCES LEADER: alert, oriented X 3, CNII-XII intactSkin: rash (TINEA PEDIS), dry, normal temperaturePsychiatry: normal affect, normal mood ResultsFindings/Data:Laboratory Tests: 03/28 03/28 0500 0555 Chemistry Sodium (137 - 145 MMOL/L) 135 L Potassium (3.5 - 5.1 MMOL/L) 3.6 Chloride (98 - 107 MMOL/L) 99 Carbon Dioxide (22 - 30 MMOL/L) 29 Anion Gap (14 - 24 MMOL/L) 11 L BUN (9 - 20 MG/DL) 18 Creatinine (0.66 - 1.25 MG/DL) 1.10 Glomerular Filtr Rate > 60 Glucose (74 - 106 MG/DL) 129 H Calcium (8.4 - 10.2 MG/DL) 9.1 Magnesium (1.6 - 2.3 MG/DL) 2.2 Triglycerides (150 - 199 MG/DL) 126 L Cholesterol (<200 MG/DL) 152 LDL Cholesterol Measurd (0 - 99 MG/DL) 76 HDL Cholesterol (40 - 59 MG/DL) 49 Coagulation INR (0.86 - 1.14) 1.0 APTT (25.1 - 36.5 SECONDS) 34.6 PT Patient/Control Mix (9.5 - 12.7 SECONDS) 11.4 Hematology WBC (3.8 - 9.8 K/MM3) 8.9 RBC (3.95 - 5.67 M/MM3) 4.30 Hgb (12.4 - 16.7 G/DL) 12.3 L Hct (35.9 - 49.5 %) 37.3 MCV (81.7 - 96.1 fL) 87 MCH (27.6 - 33.2 pg) 28.6 MCHC (32.9 - 35.5 %) 33.0 RDW (12.1 - 15.2 %) 14.0 Plt Count (129 - 368 K/MM3) 235 MPV (7.4 - 10.4 fl) 10.0 Neut % (Auto) (43 - 75 %) 53.1 Lymph % (Auto) (14 - 44 %) 28.9 Ocean % (Auto) (4 - 13 %) 11.3 Eos % (Auto) (0 - 6 %) 5.3 Baso % (Auto) (0 - 2 %) 0.6 Neut # (Auto) (2.0 - 7.6 K/mm3) 4.72 Lymph # (Auto) (1.0 - 3.8 K/mm3) 2.57 Ocean # (Auto) (0.1 - 0.8 K/mm3) 1.00 H Eos # (Auto) (0.0 - 0.2 K/mm3) 0.47 H Baso # (Auto) (0.0 - 0.2 K/mm3) 0.05 Immature Gran % (0.0 - 2.0 %) 0.8 Nucleated RBC % (0 - 1.0 %) 0.0 Nucleated RBCs # (Man) (0.0 - 0.1 K/mm3) 0.00 Serology SARS-CoV-2 Ag (Rapid) (Negative) NEGATIVE Laboratory Tests 03/28/21 0555:[Embedded Image Not Available] Results: labs reviewed, vital signs stable, current med profile rev'd Diagnosis, Assessment PlanProblem List/A P: 1. Coronary artery disease 2. Hypertension 3. Hyperlipidemia 4. Diabetes 5. Peripheral artery disease 6. Tinea pedis 7. Obesity 8. Hypothyroidism 9. Benign prostatic hyperplasia 10. Anemia Free Text A P:81 y/o M significant PMH HTN, HLD, 90 pack-year smoking hx, DM2, CAD, PAD, frequent SVT/PVC, neuropathy presented after angina, severe CAD on cath. Scheduled for CABG 03/31. #CAD#CABG planned 03/31- Severe blockages in multiple vessels requiring CABG as per cath report- Currently asxPlan: Repeat CBC, BMP in AM Begin lovenox and bridge to surgery Manage as per cardiology, cardiovascular surgery #HTN- HTN to 130-140/60s on partial home meds- Defer to cardiologyPlan: Continue metoprolol 50 BID Continue losartan 100 daily Continue nitro patch q6H Consider restart amlodipine 5 AM 2.5 PM if remains HTN Manage as per cardiology #Anemia- Hgb 12.3Plan: Continue to monitor #HLD:Continue Atorvastatin 80 daily #HypothyroidismContinue levothyroxine 100 mcg daily #TB9Vxjs metformin 1000 dailyContinue linagliptin 5 dailyContinue glimepiride 4 dailyBegin glucose monitoring w/ SSI #BPHContinue tamsulosin 0.4 dailyContinue finasteride 5 mg dailyContinue oxybutynin 5 daily #Tinea Pedis- White rash between multiple toes, moreso on L footPlan: Begin terbinafine cream BID Code: FULLDVT: Lovenox BIDDiet: Cardiac diabeticDispo: Pending CABG and recovery Quality: Gen Med Crit Care VTE ProphylaxisVTE prophylaxis initiated: yes Current MedicationsCurrent medication review:I attest that the foregoing medication list in the medical record is true, accurate, and complete to the best of my knowledge. Santana Rust 03/28/21 2205:Attestations Teaching Physician [id number] visit w/ resident:I was present with the resident, Vidal Larry, PGY1, during the history and exam. I discussed the case with the resident and agree with the findings and plan as documented in his note. at 2103 at 2206 RPT #:[id number] OF REPORTHPHistory and physical bssobvxxhdk3412-21-41E14:03:00Z.JPRO118 [id number] for patient thfaBVDAJCXVMQJNUB0909-80-96J58:03:36 2021-03-28 [id number]:30:[id number] [facility] 16:30:00 [address] [place] [address] PATIENT NAME: COLE JEFFREY ADMIT DATE: 03/28/21ACCOUNT NO: [id number] ROOM NO: Z.SI02 AGE: 81 REPORT TYPE: CONSULTATION REPORT SEX: M ADMITTING PHYSICIAN:Santana Rust MD ATTENDING PHYSICIAN:Santana Rust MD CONSULTATION DATE: 03/28/2021 CONSULTING PHYSICIAN: Marcello Garvin MD CARDIAC SURGERY SERVICE DIAGNOSES: Coronary artery disease, hypertension, hyperlipidemia, and diabetes. BRIEF HISTORY: This is an 81-year-old patient, who has new onset of significantangina with also shortness of breath and also significant decreased activitylevel with fatigue. Nuclear stress test was positive. The patient had adecrease in ejection fraction down to the low 50% rate from 64% previously onecho. PAST MEDICAL HISTORY: He has a history of hypertension, hyperlipidemia,diabetes. SOCIAL HISTORY: He was a smoker in the past. FAMILY HISTORY: Positive in his father, who was recommended to have triplebypass, but refused. REVIEW OF SYSTEMS: Otherwise is negative. Cardiac cath today shows severemultivessel disease including history of 100% right, 60% distal left main,complex 90% lesion in the LAD, diagonal takeoff with 99% lesion in the diagonal,90% circumflex lesion with multiple complex lesions beyond that. He has severe3-vessel coronary artery disease, ejection fraction about 50% on LV gram, whichis just of around 40% to 45% on echo here. Carotid duplex imaging shows lessthan 20% stenosis bilaterally. Review of systems otherwise, is negative. Nohistory of hemophilia, coagulopathy, varicose vein stripping, or phlebitis. PREVIOUS SURGERIES: Skin tumor right here, staph infection of the elbow. ALLERGIES: ALLERGY TO KEFLEX. MEDICATIONS: Takes aspirin at home. PHYSICAL EXAMINATION:GENERAL: Demonstrates a well-nourished male, in no apparent distress.NECK: No carotid bruits. Carotid pulse present. Radial pulse present.CHEST: Clear.HEART: Regular rate and rhythm without murmur. PATIENT NAME: COLE JEFFREY ABDOMEN: Soft, nontender, without mass.EXTREMITIES: Peripheral pulse present. Popliteal and pedal pulses absent.BREAST AND RECTAL: Not done.NEUROLOGIC: Physiological. ASSESSMENT: Severe multivessel coronary artery disease with progressivesignificant angina including left main. RECOMMENDATION: Plan is for coronary artery bypass surgery. The patient tocontinue on aspirin. We will start Lovenox and bridge the patient to a surgery. The procedure, the alternatives, possible risks and complications including theinherent and other risks of surgery were explained to the patient and family. They understand, accept, and want to proceed. They had a chance to ask questionand want to proceed. Dictated By: Marcello Garvin MD WT: CON:Z.JAMES/JABARI/NTSDD: 03/28/2021 16:30:28DT: 03/28/2021 18:10:09Conf#: [id number]/DID#: [id number] Authenticated by Marcello Garvin MD On 03/31/2021 04:16:03 PM at 0416 PATIENT NAME: COLE JEFFREY :10:00Z.[id number] for patient njzkODYVXJEJNZMMOH1586-91-82U92:16:39 2021-03-28 [id number] [facility] 11:00:00 [address] [place] [address] PATIENT NAME: COLE JEFFREY ADMIT DATE: 03/28/21ACCOUNT NO: [id number] ROOM NO: Z.DC4T AGE: 81 REPORT TYPE: ECHOCARDIOGRAM SEX: M ADMITTING PHYSICIAN:Soniya Torres MD ATTENDING PHYSICIAN:Soniya Torres MD *[facility]*[address] [place], [place] [address]Phone Transthoracic Echocardiogram Patient: Cole Jeffreytudy Date: 03/28/2021 BP: 115 / 64 Location: YAQUELIN: [id number] : 1940 Age: 81 Height: 72 in / 182.9 cmAccession#: [id number] Gender: M Weight: 253.5 lb / 115.2 kgBMI/BSA: 34.4 kg/m 2 / 2.46 m 2 *Ordering Physician: * Noni Marquez MD *Interpreting Physician: * Noni Marquez MD*Drawer Maker: * Efren Childs BS, RCS, RVS Indica tions: CAD Sun'Aq Vessel. Study data: Transthoracic echocardiogram. Procedure: Transthoracicechocardiography was performed. Images were obtained using a [employer] cardiacultrasound machine. Image quality was adequate. The study wastechnically limited due to poor acoustic window availability. M-mode,complete 2D, complete spectral Doppler, and color Doppler. Location:Catheterization laboratory. Patient status: Outpatient. Patient roomnumber: Mental Health Social Worker Holding Room 3. Study status: Routine. Findin Left ventricle: The cavity size is normal. There is mild concentricleft ventricular hypertrophy. Systolic function is at the lower limitsof normal. The estimated ejection fraction is 50-54%. Although no PATIENT NAME: COLE JEFFREY VICK diagnostic regional wall motion abnormality is identified, thispossibility cannot be completely excluded on the basis of this study.The pulmonary vein flow pattern is normal. The tissue Doppler parametersare normal. Left ventricular diastolic function parameters are normal.Right ventricle: The cavity size is normal. Systolic function isnormal. Systolic pressure is within the normal range.Ventricular septum: The ventricular septum is normal.Left atrium: The atrium is at the upper limits of normal in size.Right atrium: The atrium is normal in size.Atrial septum: No defect or patent foramen ovale is identified.Aorta: The aorta is not visualized.Aortic valve: The valve is trileaflet. The leaflets are mildlythickened and mildly calcified. The findings are consistent with verymild stenosis. There is no significant regurgitation.Mitral valve: The annulus is mildly calcified. The leaflets are mildlythickened. There is no evidence of stenosis. There is trivialregurgitation.Tricuspid valve: Not well visualized. There is trivial regurgitation.Pulmonic valve: Not well visualized. There is trivial regurgitation.Pericardium: There is no pericardial effusion.Systemic veins:Inferior vena cava: Not visualized. Measur ements Left ventricle Value Ref MUSA, LAX 4.5 cm 4.2 - 5.8 ESD, LAX 3.6 cm 2.5 - 4.0 ESD/bsa, LAX 1.4 cm/m 2 1.3 - 2.1 FS, LAX 22 % 25 - 43 PW, ED 1.5 cm 0.6 - 1.0 PW, ES 1.7 cm --------- IVS/PW, ED 1.02 --------- EF 44 % 52 - 72 E', lat lorenzo, TDI 9.0 cm/sec >=10.0 E/e', lat lorenzo, 11 --------- TDI E', med lorenzo, TDI 9.0 cm/sec >=7.0 E/e', med lorenzo, 11 --------- TDI E', avg, TDI 9.0 cm/sec --------- E/e', avg, TDI 11 <=14 LVOT Value Ref Diam, S 1.97 cm --------- Area 3.0 cm 2 --------- Peak frandy, S 0.82 m/sec --------- Mean frandy, S 0.53 m/sec --------- VTI, S 24.7 cm --------- Peak grad, S 3 mm Hg --------- Mean grad, S 1 mm Hg --------- SV 75 ml --------- Qs 3.61 L/min --------- PATIENT NAME: COLE JEFFREY Qs/bsa 1.5 L/(min-m 2) --------- SV/bsa 31 ml/m 2 --------- Ventricular septum Value Ref IVS, ED 1.5 cm 0.6 - 1.0 IVS, ES 2.0 cm --------- Right ventricle Value Ref MUSA, LAX 3.8 cm --------- Pressure, S 20 mm Hg --------- RVOT Value Ref Peak v, S 1.34 m/sec --------- Peak grad, S 7 mm Hg --------- Left atrium Value Ref AP dim, ES 4.23 cm 3.00 - 4.00 Aortic valve Value Ref Leaflet sep, MM 2.38 cm --------- Peak v, S 1.89 m/sec --------- Mean v, S 1.15 m/sec --------- VTI, S 32.8 cm --------- Mean grad, S 6.6 mm Hg --------- Peak grad, S 14.4 mm Hg --------- LVOT/AV, VTI 0.75 --------- ratio ELLEN, VTI 2.29 cm 2 --------- LVOT/AV, Vpeak 0.43 --------- ratio ELLEN, Vmax 1.58 cm 2 --------- Mitral valve Value Ref Peak E 0.96 m/sec --------- Peak A 0.82 m/sec --------- Mean v, D 0.53 m/sec --------- VTI leaflet 42.6 cm --------- coapt Decel time 289 ms --------- Mean grad, D 1.5 mm Hg --------- Peak grad, D 5.6 mm Hg --------- Peak E/A ratio 1.17 --------- Pulmonic valve Value Ref SD v, ED 0.48 m/sec --------- Tricuspid valve Value Ref TR peak v 1.59 m/sec <=2.8 Peak RV-RA grad, 10 mm Hg --------- S Aortic root Value Ref Root diam, ED MM 3.93 cm --------- PATIENT NAME: COLE JEFFREY Pulmonary artery Value Ref Pressure, S 9.9 mm Hg --------- Systemic veins Value Ref Estimated CVP 10 mm Hg --------- Conclu sions Summary: 1. Left ventricle: The cavity size is normal. There is mild concentric left ventricular hypertrophy. Systolic function is at the lower limits of normal. The estimated ejection fraction is 50-54%. Although no diagnostic regional wall motion abnormality is identified, this possibility cannot be completely excluded on the basis of this study. Left ventricular diastolic function parameters are normal.2. Right ventricle: Systolic pressure is within the normal range. The RV pressure during systole by Doppler is 20 mm Hg.3. Aortic valve: The findings are consistent with very mild stenosis.4. Mitral valve: The annulus is mildly calcified. The leaflets are mildly thickened. Prepared and electronically signed by Noni Marquez MD03/28/2021 11:00 at 1100 PATIENT NAME: COLE JEFFREY 16T11:00:00Z.[id number] e for patient tjkpONWXILDBSVYWZD0196-27-39Z87:00:44 2021-03-28 [id number] [facility] 10:43:00 [address] [place] [address] PATIENT NAME: COLE JEFFREY ADMIT DATE: 03/28/21ACCOUNT NO: [id number] ROOM NO: [facility] AGE: 81 REPORT TYPE: eCAROTID ULTRASOUND SEX: M ADMITTING PHYSICIAN:Soniya Torres MD ATTENDING PHYSICIAN:Soniya Torres MD *[place], [place] [address] Carotid Duplex Study Patient: Cole Jeffreytudy Date: 03/28/2021 BP: 115 / 64 Location: COCWUURN: [id number] : 1940 Age: 81 Height: 72 in / 182.9 cmAccession#: [id number] Gender: M Weight: 253.5 lb / 115.2 kgBMI/BSA: 34.4 kg/m 2 / 2.46 m 2 *Ordering Physician: * Noni Marquez MD*Interpreting Physician: * Noni Marquez MD*Drawer Maker: * Efren BOB, RCS, RVS Indica tions: CAD. Study data: Carotid duplex study. Bilateral evaluation with vxzealyws3I imaging, color Doppler imaging, and spectral Doppler analysis.Location: Catheterization laboratory. Patient status: Outpatient.Patient room number: Mental Health Social Worker Holding Room 3. Procedure: A vascularevaluation was performed with the patient in the supine position. Imageswere obtained using a [employer] vascular ultrasound machine. Image quality wasadequate. Study status: Routine. Findin gs Carotid/vertebral arteries:Right common carotid: The vessel has mild plaque.Right internal carotid: Proximal vessel lesion: There is a1-19%stenosis. PATIENT NAME: COLE JEFFREY Right external carotid: The vessel is normal; it has no evidence ofdisease.Right vertebral: The arterial flow direction is antegrade.Left vertebral: The arterial flow direction is antegrade.Left common carotid: The vessel is normal; it has no evidence ofdisease.Left internal carotid: Proximal vessel lesion: There is a1-19%stenosis.Left external carotid: The vessel is normal; it has no evidence ofdisease. Arteri al flow: Location PSV* EDV* PSV Stenosis Location PSV* EDV* PSV Stenosis ratio ratioR CCA, prox 77 9 ----- -------- L CCA, 101 10 ----- -------- proxR CCA, 78 7 ----- -------- L CCA, 80 7 ----- --------distal distalR ICA, prox 72 13 0.93 1-19% L ICA, 67 10 0.66 1-19% proxR ICA, mid 95 19 1.22 -------- L ICA, 67 17 0.66 -------- midR ICA, 64 13 0.83 -------- -------- ---- ---- ----- --------distalR ECA 87 5 ----- -------- L ECA 90 21 ----- --------R vertebral 37 7 ----- -------- L 29 6 ----- -------- vertebra l *Velocities are expressed in cm/sec, Diameters are expressed in cm Conclu sions 1. Study suggests 1-19% stenosis involving the right carotid artery bifurcation, right internal carotid artery, left carotid artery bifurcation, and left internal carotid artery.2. Antegrade flow noted in the right vertebral artery and left vertebral artery. Prepared and electronically signed by Noni Marquez MD03/28/2021 10:42 at 1043 PATIENT NAME: COLE JEFFREY zlnrfza0078-76-64N55:43:00Z.[id number] -0021AVAvailable for patient fbstQECZRVXBSGJKOJ9563-76-81Y12:43:43 2021-03-28 [id number] [facility] 09:[facility]:[address] [address] PATIENT NAME: COLE JEFFREY ADMIT DATE: 03/28/21ACCOUNT NO: [id number] ROOM NO: Z.DC4T AGE: 81 REPORT TYPE: ELECTROCARDIOGRAM SEX: M ADMITTING PHYSICIAN:Soniya Torres MD ATTENDING PHYSICIAN:Soniya Torres MD Order:[id number] Reason : CAD Test Date/Time Stamp:Sat Mar 28 2021 09:41:27Blood Pressure : / mmHGVent. Rate : 050 BPM Atrial Rate : 050 BPM P-R Int : 182 ms QRS Dur : 160 ms QT Int : 502 ms P-R-T Axes : 000 030 072 degrees QTc Int : 457 ms Sinus bradycardia with sinus arrhythmiaNonspecific intraventricular blockAbnormal ECGNo significant change was foundConfirmed by NONI MARQUEZ ([id number]) on 03/28/2021 9:49:08 AM Referred By: Noni Marquez Confirmed by:NONI MARQUEZ at 0949 PATIENT NAME: COLE JEFFREY .[id number] for patient oapwJKJPQCONGOQLEA4763-80-71O99:49:29 2021-03-28 [id number] [facility] 09:41:[address] [address] PATIENT NAME: COLE JEFFREY ADMIT DATE: 03/28/21ACCOUNT NO: [id number] ROOM NO: Z.364 AGE: 81 REPORT TYPE: ELECTROCARDIOGRAM SEX: M ADMITTING PHYSICIAN:Santana Rust MD ATTENDING PHYSICIAN:Santana Rust MD Order:[id number] Reason : CAD Test Date/Time Stamp:Sat Mar 28 2021 09:41:27Blood Pressure : / mmHGVent. Rate : 050 BPM Atrial Rate : 050 BPM P-R Int : 182 ms QRS Dur : 160 ms QT Int : 502 ms P-R-T Axes : 000 030 072 degrees QTc Int : 457 ms Sinus bradycardia with sinus arrhythmiaNonspecific intraventricular blockAbnormal ECGNo significant change was foundConfirmed by NONI MARQUEZ ([id number]) on 03/30/2021 1:23:44 PM Referred By: Noni Marquez Confirmed by:NONI MARQUEZ at 1323 PATIENT NAME: COLE JEFFREY .FKJ361 [id number] for patient igexBWLENUREMAZEXS0448-12-95O05:24:18 2021-03-28 [id number] [facility] 08:10:00 [address] [place] [address] PATIENT NAME: COLE JEFFREY ADMIT DATE: 03/28/21ACCOUNT NO: [id number] ROOM NO: 364 AGE: 81 REPORT TYPE: CARDIAC CATHETERIZATION REPORT SEX: M ADMITTING PHYSICIAN:Santana Rust MD ATTENDING PHYSICIAN:Santana Rust MD PROCEDURE DATE: 03/28/2021 MEMBER SERVICES COORDINATOR: Noni Marquez MD INDICATION FOR THE PROCEDURE: Angina, abnormal nuclear stress test. TITLE OF THE PROCEDURE: Left heart catheterization and selective LIMAangiogram. ESTIMATED BLOOD LOSS: Minimal. COMPLICATIONS: None. CONTRAST: 50 mL. ANESTHESIA: Conscious sedation with Versed and fentanyl. A 1% lidocaine forlocal anesthesia. FINAL DIAGNOSES: Left main and severe three-vessel coronary artery disease,obmm-jo-qjkvl collaterals. The recommendation is urgent bypass. PROCEDURE IN DETAIL: After informed consent, the patient was brought to thecardiac catheterization lab in a stable fasting nonsedated state. He wasprepped and draped in the usual sterile fashion. After conscious sedation, 1%lidocaine was administered to the right common femoral artery area for localanesthesia. A 6-Mongolian sheath was placed in the right common femoral arteryusing standard techniques and fluoroscopy. After heparinization, left coronaryangiogram showed critical severe coronary artery disease. The left main distalwas about 55%, proximal LAD 55%, diagonal large vessel 99% subtotal, ramus hadabout 90% mid lesion, circumflex starts off with a 90% thrombotic lesion at theproximal end and all the branches have significant disease even distally 85%. There are collaterals from the left to the right. The right coronary angiogramshowed occluded vessel, proximal to mid with faint antegrade collaterals all thearteries are calcified. Left ventricular angiogram showed an ejection fractionof 55%. Left ventricular end-diastolic pressure of 15. No wall motionabnormalities or aortic valve gradient. Selective left subclavian DICKENS,angiogram showed the DICKENS to be of good caliber as a small proximal branch butis suitable for bypass. The right groin was sealed using Angio-Seal. Therewere no complications. The patient tolerated the procedure well. He will betransferred back to the holding area for observation. He will get a surgicalconsultation and most likely needs to be admitted for urgent bypass. PATIENT NAME: COLE JEFFREY Dictated By: Noni Marquez MD WT: CATH:DARY/ZOHAIB/NTSDD: 03/28/2021 08:10:16DT: 03/28/2021 08:27:27Conf#: [id number]/DID#: [id number] Authenticated by Noni Marquez MD On 03/29/2021 07:07:51 AM at 0707 PATIENT NAME: COLE JEFFREY Moim2912-17-88G09:27:00Z.[id number] 07AVAvailable for patient yrdkOFAHEWWOCQVAWY4726-84-37O14:24:02 2021-03-28 [id number]:[id number] [facility] 06:47:00 [address] [place] [id number] PATIENT NAME: COLE JEFFREY ADMIT DATE: 03/28/21ACCOUNT NO: [id number] ROOM NO: AGE: 81 REPORT TYPE: ELECTROCARDIOGRAM SEX: M ADMITTING PHYSICIAN: ATTENDING PHYSICIAN:Noni Marquez MD Order:[id number] Reason : PRE CATHLAB PROCEDURE Test Date/Time Stamp:[facility] Mar 28 2021 06:47:54Blood Pressure : / mmHGVent. Rate : 056 BPM Atrial Rate : 056 BPM P-R Int : 184 ms QRS Dur : 164 ms QT Int : 478 ms P-R-T Axes : 000 036 178 degrees QTc Int : 461 ms Sinus bradycardia with premature atrial complexes with aberrant conduction withpremature ventricular or aberrantly conducted complexesNonspecific intraventricular blockAbnormal ECGNo previous ECGs availableConfirmed by NONI MARQUEZ ([id number]) on 03/28/2021 7:25:08 AM Referred By: Noni Marquez Confirmed by:NONI MARQUEZ at 0725 PATIENT NAME: COLE JEFFREY .XQM010 [id number] for patient zhhdHTJMLXPEFOEHZO7347-82-12F93:25:36 2021-03-27 [id number] [facility] 06:59:[address] [address] PATIENT NAME: COLE JEFFREY ADMIT DATE: ACCOUNT NO: [id number] ROOM NO: AGE: 81 REPORT TYPE: PREOP HISTORY AND PHYSICAL SEX: M ADMITTING PHYSICIAN: ATTENDING PHYSICIAN:Noni Marquez MD PATIENT NAME: COLE JEFFREY ADMIT DATE:03/28/2021DMISSION DATE: 03/28/2021 MEMBER SERVICES COORDINATOR: Noni Marquez MD REASON FOR ADMISSION: Chest pain, angina, dyspnea, coronary artery disease.For cardiac catheterization and possible revascularization. HISTORY OF PRESENT ILLNESS: Cole is an 81-year-old patient of mine who I havebeen following in my office on medical therapy since 2010. The patient has ahistory of a normal cardiac catheterization back in 1993, was told normal atthat time. The patient has been followed on medical therapy and risk factormodification over the years. Recently, he was having worsening symptomsconsistent with angina. Nuclear stress test was positive for inferolateral andposterolateral ischemia. Ejection fraction 51%, it used to be 64% in the past.Given this information and the patient's symptoms, he is here for cardiaccatheterization to assess his coronaries for possible revascularization. He hashypertensive heart disease. Her last echocardiogram showed the aorta 4 at theroot and 4.1 at the ascending. He has mild mitral regurgitation, hypertensivechanges, normal ejection fraction. He had a Holter monitor that continued toshow a few short paroxysmal supraventricular tachycardia runs and moderate PVCfrequency. He has mild peripheral arterial disease on lower arterial Dopplerexamination on medical therapy. He has also mild carotid disease around 30%.There is no history of congestive heart failure, TIAs, or strokes. PAST MEDICAL HISTORY: Remarkable for hypertension, hyperlipidemia,cardiomegaly, diabetes, benign prostatic hypertrophy, skin cancer, vitamin E39uhffyeninp, and allergies. 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 ALLERGIES: CEPHALEXIN CAUSES RASH. MEDICATIONS: Oxybutynin, hydrochlorothiazide, Levothroid, losartan 100 mgdaily, Januvia, glimepiride, fludrocortisone, metformin is on hold, amlodipine 5mg in the morning and 2.5 in the evening, simvastatin 20 mg daily, tamsulosin,finasteride, aspirin, Matzim LA 360 mg daily. He also takes isosorbide 60 mgdaily and other vitamins. SOCIAL HISTORY: There is no history of any recent smoking. There is history ofsocial alcohol use. There is no history of street drug use. PATIENT NAME: COLE JEFFREY FAMILY HISTORY: Negative for premature atherosclerosis. REVIEW OF SYSTEMS: Remarkable for allergies, decreased hearing, dryness in themouth, easy bruisability, mild peripheral arterial disease symptoms. No acuteGI or symptoms. No TIAs or strokes. PHYSICAL EXAMINATION:GENERAL: Reveals a pleasant elderly male, in no acute distress.VITAL SIGNS: Blood pressure 124/60, pulse 55 and regular, respiratory rate 17and unlabored, and temperature afebrile.HEENT: Head atraumatic and normocephalic. Eyes and ENT examination withinnormal for age.NECK: Supple. No jugular venous distention, bruits, or lymphadenopathy.Normal upstroke.LUNGS: Clear and resonant.HEART: Regular rate and rhythm with II/ systolic ejection murmur at the leftlower sternal border. No gallops. The heart is mildly enlarged. The heartrate was also bradycardic.ABDOMEN: Soft, obese. No tenderness. No organomegaly. No masses or bruits.EXTREMITIES: A 1+ pulses, 1+ edema. No cyanosis or clubbing.NEUROLOGIC: Alert and oriented x3. The examination appears to be nonfocal. LABORATORY DATA: Pending. Noninvasive cardiovascular workup enclosed. IMPRESSION: This is an 81-year-old patient with what appears to be angina withchest discomfort radiating to the left arm and dyspnea. He has multiplecardiovascular risk factors and extensive cardiac history. The patient is herefor cardiac catheterization to assess his coronaries for possiblerevascularization. The recommendation is to proceed with left heart catheterization and possiblerevascularization. The risks and benefits of the planned procedures werediscussed in detail with the patient and he is willing to proceed. Rest as perorders. Dictated By: Noni Marquez MD WT: PREOPHP:ZSHAHNAZ/ZOHAIB/LAURENDD: 03/27/2021 06:59:56DT: 03/27/2021 07:26:23Conf#: [id number]/DID#: [id number] and Edited by Noni Marquez MD On 03/27/21 3:20:55 PM at 0323 PATIENT NAME: COLE JEFFREY and physical [id number]:26:00Z.[id number] for patient [id number]:24:22 2021-01-20 [id number]:31:09 FRANSISCO MARTINEZ [facility] 20:31:09 OPERATIVE/PROCEDURE REPORTSCOLE VALERIOHARJITITY: [place] #: [id number] Room: [facility] #: [id number] : 1940DATE OF PROCEDURE: 01/20/2021URGEON: Fransisco Martinez [facility] patient of Dr. Fransisco Martinez.PREOPERATIVE DIAGNOSES:1. Mallet toe deformity, distal interphalangeal joint, secondand third digits, right foot.2. Varus deformity of the third digit, right foot.3. Contracted flexor tendon interphalangeal joint capsule,second, third, and fourth digits, right foot.POSTOPERATIVE DIAGNOSIS:1. Mallet toe deformity, distal interphalangeal joint, secondand third digits, right foot.2. Varus deformity of the third digit, right foot.3. Contracted flexor tendon interphalangeal joint capsule,second, third, and fourth digits, right foot.4. 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 Arthroplasty of distal interphalangeal joint, second andthird digit, right foot.2. Repair of varus deformity of the third digit, right foot.3. Flexor tenotomy of interphalangeal joint capsulotomy,second, third, and fourth digits, right foot.HISTORY: This 81-year-old male patient was first identified inthe preoperative holding area at [facility] on 01/20/2021 in an apparentsatisfactory condition to undergo corrective foot surgery forpainful mallet toe deformities of the second and third digitsof the right foot and contracted flexor tendons #2, #3, and #4of right foot. The patient was identified, right foot wasmarked as indicated. Consent was reviewed and agreed upon andsigned. Procedures, risks, followup, and complications weredescribed in great detail. All questions were answered.INDICATIONS FOR SURGERY: Painful mallet toe deformities,developing into hyperkeratotic lesions with nail deformitiesand varus deformity of the third digit. In need of surgicalcorrection, conservative care had been performed. In lieu ofconservative care, the patient desired surgical correction forthe above-stated deformities.DESCRIPTION OF PROCEDURE: The patient was brought to theoperating room, placed on the operating table in a supineposition, at which time IV sedation was induced. A 2 g ofAncef was given in the IV preoperatively. The first time-outwas performed, the right foot was identified as marked.Consent was reviewed and agreed upon as signed or concurrencewith time-out. Local anesthetic, Xylocaine 1% plain andMarcaine 0.5% plain infiltrated locally to the right foot. Atotal of 20 mL was utilized. Sterile Betadine scrub and paintperformed. Sterile draping was then performed. Pneumatictourniquet had been applied to the right ankle, at which timethe right lower extremity was elevated to 45 degrees forapproximately 3 minutes, thus exsanguinating lower extremityblood supply. Esmarch was utilized for further exsanguination. Pneumatic tourniquet was elevated to 250 mmHg and hemostasiswas then accomplished.Attention was directed to the second digit of the right foot atthe level of the distal interphalangeal joint, where atransverse skin incision was performed measuring approximately2 to 2.5 cm in length. Skin incision was deepened tosubcutaneous tissues through the exact same skin incision andthen deepened to the periosteal tissues. Utilizing 67 blade,the tendon extensor digitorum longus was then transverselyincised. The collateral ligaments of the distalinterphalangeal joint were then severed free. A synostosis wasobserved at the level of the medial margin of the distalinterphalangeal joint. It was broken apart with a smallosteotome. The tendon was underscored and reflectedproximally. Utilizing a Gravitant sagittal bone saw, anosteotomy was created at the surgical neck of the head of themiddle phalanx was resected and the bone was remodeled with theremaining portion of the middle phalanx with a Strykeroscillating bone bur. After remodeling utilizing a #67 blade,a flexor tenotomy, interphalangeal joint capsulotomy wasperformed through the same exact skin incision. The wound wasthen copiously irrigated with sterile saline solution. Withthe second toenail in rectus position and no longer contracted,the extensor tendon was reapproximated together utilizing onesimple interrupted 4-0 Vicryl suture. Skin margins closed andreapproximated together utilizing a combination of 5-0horizontal mattress and 5-0 simple interrupted nylon sutures.PROCEDURE #2: Arthroplasty of distal interphalangeal joint ofthe third digit, right foot: Same and exact proceduresperformed on the second digit of the right foot was performedand the third digit of the right foot. Derotation of the varusdeformity of the third digit of the right foot was performedwith an extended incision. Release of the flexor tendonthrough the exact same skin incision after the head of themiddle phalanx was resected. After resection of the head ofthe middle phalanx again with the synostosis observed andbroken apart with a small osteotome, a flexor tenotomyinterphalangeal joint capsulotomy was performed and resectionof the head of the middle phalanx performed and remodeling.The contracture was released and the derotation of the thirddigit was accomplished. After irrigation with sterile salinesolution, the tendon was reapproximated together with the thirddigit now in rectus position with one simple interrupted 4-0Vicryl suture and the skin margins closed and reapproximatedtogether utilizing a combination of 5-0 horizontal mattress and5-0 simple interrupted nylon sutures.Procedure #3: Flexor tenotomy interphalangeal jointcapsulotomy of the fourth digit, right foot. Attention wasdirected to the skin line at the distal interphalangeal jointof the fourth digit, right foot. Utilizing #67 blade, a smallpercutaneous skin incision was created, deepened tosubcutaneous tissues through the exact same skin incision.Utilizing 67 blade, the flexor tendon was released completelyand the volar plate was incised and the interphalangeal jointcapsule was released. The contracture was released of thefourth digit of the right foot. No need for arthroplasty. Thewound was copiously irrigated with sterile saline solution andthe skin margins closed and reapproximated together with onesimple interrupted 5-0 nylon suture. All wound sites were thencovered with sterile Adaptic dressing with antibiotic ointment,4x4's to keep the toes now in rectus position, no longerrotated and no longer contracted. A 2-inch Antony was utilized,3-inch Webril, and a 4-inch Anibal wrap to the right foot. Thepneumatic tourniquet was released, at which time a reflexhyperemia was observed to all digits of the right foot. Colorand temperature were normal. The patient tolerated theprocedures, local anesthesia, and the IV sedation well and leftthe operating room in apparent satisfactory condition withvital signs stable. Sponge count and needle count werecorrect. Estimated blood loss was less than 15 mL due totourniquet. The patient was then transferred to the PACU unitwith vital signs stable.JAR/MODLDD: 01/20/2021 17:05:38DT: 01/20/2021 20:31:09Job #: [id number]: [id number], [id number]:0 2:13 2020-12-08 [id number]:14:27 FRANSISCO MARTINEZ [facility] 19:14:27 OPERATIVE/PROCEDURE REPORTSCHRONAKRobinaCOLEFACILITY: [place] #: [id number] Room: [facility] 1409 #: [id number] : 1940DATE OF PROCEDURE: 12/08/2020URGEON: ALETHA ReyesREOPERATIVE DIAGNOSIS: Nonhealing stage IV ulceration withosteomyelitis of the distal phalanx of the second digit, leftfoot.POSTOPERATIVE DIAGNOSIS: Nonhealing stage IV ulceration withosteomyelitis of the distal phalanx of the second digit, leftfoot.OPERATION PERFORMED: Wide excision of stage IV ulcer withdistally amputation to the distal interphalangeal joint withprimary closure, second digit, left foot.HISTORY: [facility] 80[facility], in apparent satisfactory condition to undergocorrective surgery for nonhealing stage IV ulceration, whichhad been infected, was admitted to the hospital recently withinfection and x-ray showing bone changes of the distal portionof the distal phalanx of the second digit of the left foot. Inneed of surgical amputation of the distal portion of the seconddigit, left foot. The patient was identified. The left footwas marked as indicated. Consent was reviewed and agreed uponand signed. Procedures risks, followup, and complications weredescribed in great detail and all questions were answered.INDICATIONS FOR SURGERY: As above. Nonhealing stage IVdiabetic ulceration with osteomyelitis of the distal portion ofthe distal phalanx of the second digit, left foot in need ofthe amputation. The patient was then brought to the operatingroom, placed on the operating table in the supine position, atwhich time IV sedation was induced. Antibiotic was held untilafter cultures were obtained. Time-out was first performed.The left foot was identified as marked. Consent was reviewedand agreed upon as signed. All were in concurrence with thetime-out. Local anesthetic Xylocaine 1% plain and Marcaine0.5% plain was infiltrated locally to the left foot, a total of13 mL was utilized. Sterile Betadine scrub and paintperformed. Sterile draping was then performed.PROCEDURE IN DETAIL: Aerobic and anaerobic cultures were firstobtained from the nonhealing ulceration of the distal portionof the second digit left foot, measuring approximately 1 cm x3/4 of a cm. Cultures were held until after portion of theamputation was performed and culturing of that area could alsobe performed. Transverse skin incision just proximal to theeponychium of the nail of the second digit left foot wasperformed. Skin incision was deepened to subcutaneous tissuesthrough the exact same skin incision. Good bleeding wasobserved. The incision was continued both medially andlaterally in a distal circumferential manner and thenproximally just proximal to the ulceration itself transversefashion. Incisions were deepened through subcutaneous tissuesboth dorsally and plantarly through superficially fascialplanes. Incision dorsally was then carried out down to theperiosteal level, where the tendon of the extensor digitorumlongus was transversely incised at the level of the distalinterphalangeal joint. Collateral ligaments were then severedfree disarticulating the base of the distal phalanx from thehead of the middle phalanx and from the distal interphalangealjoint. After disarticulation was completed, a distalamputation of the second digit of the left foot was performed.Cultures were also obtained from the bone area of the seconddigit after amputation was performed. Cultures were sent toPathology for culture and sensitivity. After the amputationwas completed, good bleeding was noted. Cautery was utilizedfor hemostasis. The wound was then copiously irrigated withsterile saline solution with vancomycin 1 L. After irrigationwas performed with hemostasis accomplished, advancement of theplantar flap was performed dorsally with closure accomplishedprimarily with 4-0 simple interrupted Prolene suture on anoncutting needle. Dog-ears were noted both medially andlaterally. Redundant skin tissue was excised. Twosemi-elliptical skin incisions both medially and laterally wereperformed, so that the contour of the amputation site would bemore normal and not showing the dog ears both medially andlaterally. These excision of redundant skin tissue were closedand reapproximated together with two simple interrupted 4-0Prolene suture noncutting needle. The wound site was thencovered with sterile Adaptic dressing with antibiotic ointment,4x4's, Webril, and an Anibal wrap to the left foot. The patienttolerated the procedures, local anesthesia, and the IV sedationwell, left the operating room in an apparent satisfactorycondition with vital signs stable. The sponge count and needlecount were correct. The patient was transferred to the PACUunit with vital signs stable.ESTIMATED BLOOD LOSS: Less than 10 mL.JAR/MODLDD: 12/08/2020 18:14:58DT: 12/08/2020 19:14:27Job #: [id number]: [id number] 3:38
--- NOTE | 2023-05-02 15:58 | RAD REPORT ---
EXAM DESCRIPTION: RAD - Chest Single View - 05/02/2023 3:51 pm CLINICAL HISTORY: COUGH Chest pain. COMPARISON: <Comparisons> FINDINGS: Portable technique limits examination quality. Mild interstitial pulmonary edema. Trace bilateral pleural effusions. The heart is significantly enla rged with a multi lead pacer/defibrillator device. Sternotomy wires noted. IMPRESSION: Mild CHF.
--- NOTE | 2023-05-02 16:00 | RAD REPORT ---
EXAM DESCRIPTION: RAD - Foot Left 3 View - 05/02/2023 3:51 pm CLINICAL HISTORY: PAIN COMPARISON: Foot Left 3 View dated 04/27/2023 FINDINGS: Distal phalanx of the second toe is absent. Moderate soft tissue swelling is present. Soft tissue swelling is seen involving the great toe. Bony demineralization is seen with soft tissue swel ling affecting the distal aspect of the fourth and fifth toes. This likely represents osteomyelitis.
[2023-05-02] MEDS ORDERED: NA CHLORIDE 0.9% 1,000 ML ONE (16:41)
[2023-05-02 16:46] LABS: Absolute Lymphocytes (CBC) 2.1 K/uL (0.7-4.9); Hematocrit 30.6 % (39.6-49.0); Lymphocytes % 29.6 % (15.3-44.8); MCV 76.4 fL (80-100); MPV 7.8 fL (7.6-11.3); Platelets 275 thou/uL (152-406); Protime INR 1.93
--- NOTE | 2023-05-02 16:49 | EDPHYS ---
Physician Documentation [facility] Name: Cole Jeffrey Age: 83 yrs Sex: Male : 1940 Arrival Date: 05/02/2023 Time: 14:49 Bed 14 Private MD: JC Physician Efren Sherwood HPI: 05/02 16:08 This 83 yrs old Male presents to ER via Ambulatory with complaints of Foot damon Infection. 16:08 The patient presents with cellulitis of the plantar aspect of left fourth toe, left damon fourth toe and Left fourth toenail. Description: The affected area is small, irregular, draining, erythematous. Onset: The symptoms/episode began/occurred 14 day(s) ago. Possible cause(s): diabetic, infected blister. The patient presents with pain, that is acute. The complaints affect the plantar aspect of left fourth toe, left fourth toe and Left fourth toenail. Modifying factors: The symptoms are alleviated by nothing, the symptoms are aggravated by nothing. Severity of symptoms: At their worst the symptoms were mild, moderate, in the emergency department the symptoms are unchanged. Historical: - Allergies: 15:15 Sulfa (Sulfonamide Antibiotics); hb - PMHx: 15:15 Hypertension; Hyperlipidemia; Hypothyroidism; Diabetes - NIDDM; Cellulitis; ADD/ADHD; hb Atrial fibrillation; skin cancer; - PSHx: 15:15 Coronary artery bypass graft; hb - Immunization history:: Adult Immunizations up to date. - Social history:: Smoking status: Patient/guardian denies using tobacco. - Family history:: not pertinent. ROS: 16:08 Constitutional: Negative for fever, chills, and weight loss, Eyes: Negative for injury, damon pain, redness, and discharge, ENT: Negative for injury, pain, and discharge, Neck: Negative for injury, pain, and swelling, Cardiovascular: Negative for chest pain, palpitations, and edema, Respiratory: Negative for shortness of breath, cough, wheezing, and pleuritic chest pain, Abdomen/GI: Negative for abdominal pain, nausea, vomiting, diarrhea, and constipation, Back: Negative for injury and pain, : Negative for injury, bleeding, discharge, and swelling, Neuro: Negative for headache, weakness, numbness, tingling, and seizure, Psych: Negative for depression, anxiety, suicide ideation, homicidal ideation, and hallucinations, Allergy/Immunology: Negative for hives, rash, and allergies, Endocrine: Negative for neck swelling, polydipsia, polyuria, polyphagia, and marked weight changes, Hematologic/Lymphatic: Negative for swollen nodes, abnormal bleeding, and unusual bruising, 16:08 MS/extremity: Positive for erythema, pain, swelling, of the plantar aspect of left fourth toe, left fourth toe and Left fourth toenail, Exam: 16:08 Constitutional: This is a well developed, well nourished patient who is awake, alert, damon and in no acute distress. Head/Face: Normocephalic, atraumatic. Eyes: Pupils equal round and reactive to light, extra-ocular motions intact. Lids and lashes normal. Conjunctiva and sclera are non-icteric and not injected. Cornea within normal limits. Periorbital areas with no swelling, redness, or edema. ENT: Nares patent. No nasal discharge, no septal abnormalities noted. Tympanic membranes are normal and external auditory canals are clear. Oropharynx with no redness, swelling, or masses, exudates, or evidence of obstruction, uvula midline. Mucous membranes moist. Neck: Trachea midline, no thyromegaly or masses palpated, and no cervical lymphadenopathy. Supple, full range of motion without nuchal rigidity, or vertebral point tenderness. No Meningismus. Chest/axilla: Normal chest wall appearance and motion. Nontender with no deformity. No lesions are appreciated. Cardiovascular: Regular rate and rhythm with a normal S1 and S2. No gallops, murmurs, or rubs. Normal PMI, no JVD. No pulse deficits. Respiratory: Lungs have equal breath sounds bilaterally, clear to auscultation and percussion. No rales, rhonchi or wheezes noted. No increased work of breathing, no retractions or nasal flaring. Abdomen/GI: Soft, non-tender, with normal bowel sounds. No distension or tympany. No guarding or rebound. No evidence of tenderness throughout. Back: No spinal tenderness. No costovertebral tenderness. Full range of motion. Male : Normal genitalia with no discharge or lesions. Neuro: Awake and alert, GCS 15, oriented to person, place, time, and situation. Cranial nerves II-XII grossly intact. Motor strength 5/5 in all extremities. Sensory grossly intact. Cerebellar exam normal. Normal gait. Psych: Awake, alert, with orientation to person, place and time. Behavior, mood, and affect are within normal limits. 16:08 Skin: abscess, not appreciated, cellulitis, that is minimal, induration, that is mild is noted, injury, avulsion(s), a very small 16:45 ECG was reviewed by the Attending Physician. [facility] Vital Signs: 15:13 BP 165 / 77; Pulse 62; Resp 18; Temp 98.7(TE); Pulse Ox 97% on R/A; Weight 97.07 kg; hb Height 6 ft. 1 in. ; Pain 2/10; 16:35 BP 154 / 75; Pulse 60; Resp 18; Pulse Ox 98% on R/A; db 17:26 BP 154 / 57; Pulse 59; Resp 18; Pulse Ox 98% ; db 18:00 BP 145 / 62; Pulse 62; Resp 18; Pulse Ox 98% on R/A; db 15:13 Body Mass Index 28.23 (97.07 kg, 185.42 cm) hb 15:13 Pain Scale: Adult hb MDM: 15:01 Patient medically screened. [facility] 16:12 Differential diagnosis: abscess, cellulitis. Data reviewed: vital signs, nurses notes, [facility] lab test result(s), EKG, radiologic studies. Consideration of Admission/Observation Escalation of care including admission/observation considered. Independent interpretation of the following test(s) in the Emergency Department EKG: See my EKG interpretation above. Test considered but Not performed: Ultrasound no usg. 05/02 15:02 Order name: Basic Metabolic Panel; Complete Time: 17:22 [facility] 05/02 15:02 Order name: CBC with Diff; Complete Time: 17:22 [facility] 05/02 15:02 Order name: LFT's; Complete Time: 17:22 [facility] 05/02 15:02 Order name: Magnesium; Complete Time: 17:22 [facility] 05/02 15:02 Order name: NT PRO-BNP; Complete Time: 17:22 [facility] 05/02 15:02 Order name: PT-INR; Complete Time: 17:22 [facility] 05/02 15:02 Order name: Troponin HS; Complete Time: 17:22 [facility] 05/02 15:02 Order name: CRP; Complete Time: 17:22 [facility] 05/02 15:02 Order name: Blood Culture Adult (2) [facility] 05/02 15:02 Order name: Lactate w/ 2H reflex if indic.; Complete Time: 17:22 [facility] 05/02 16:37 Order name: Wound Culture [facility] 05/02 15:02 Order name: XRAY Chest (1 view); Complete Time: 16:37 [facility] 05/02 15:02 Order name: Foot Left 3 View XRAY; Complete Time: 16:37 [facility] 05/02 15:02 Order name: EKG; Complete Time: 15:03 [facility] 05/02 15:02 Order name: Cardiac monitoring; Complete Time: 17:07 [facility] 05/02 15:02 Order name: EKG - Nurse/Tech; Complete Time: 17:07 [facility] 05/02 15:02 Order name: IV Saline Lock; Complete Time: 17:06 [facility] 05/02 15:02 Order name: Labs collected and sent; Complete Time: 16:28 [facility] 05/02 15:02 Order name: O2 Per Protocol; Complete Time: 16:28 [facility] 05/02 15:02 Order name: O2 Sat Monitoring; Complete Time: 16:28 [facility] 05/02 16:37 Order name: Wound Care; Complete Time: 17:06 [facility] 05/02 16:37 Order name: Post-op shoe; Complete Time: 17:16 [facility] EC:45 Rate is 62 beats/min. Rhythm is regular. QRS [place] is Normal. DE interval is normal. QRS damon interval is normal. QT interval is normal. No Q waves. T waves are Normal. No ST changes noted. Clinical impression: NSR w/ Non-specific ST/T Changes and No evidence of ischemia. Interpreted by me. Reviewed by me. Administered Medications: 16:27 Drug: NS 0.9% IV 1000 ml IV at 1 bolus Per protocol; 1000 mL bolus Route: IV; Rate: 1 db bolus; Site: right antecubital; 17:20 Follow up: Response: No adverse reaction; IV Status: Completed infusion; IV Intake: db 1000ml 17:00 Drug: Mupirocin Topical Ointment 2 % 1 application Topical once Route: Topical; Site: db affected area; 17:02 Drug: Clindamycin IVPB 900 mg IVPB once over 30 mins; (mix in 50 mL) Route: IVPB; db Infused Over: 30 mins; Site: right antecubital; 17:35 Follow up: Response: No adverse reaction; IV Status: Completed infusion; IV Intake: db 100ml 17:40 Drug: Ciprofloxacin IVPB 400 mg 200 ml IVPB once over 60 mins Volume: 200 ml; Route: db IVPB; Infused Over: 60 mins; Site: right antecubital; 18:37 Follow up: Response: No adverse reaction; IV Status: Completed infusion tl4 18:58 Follow up: Response: No adverse reaction; IV Status: Completed infusion; IV Intake: db 250ml Disposition Summary: 05/02/23 16:48 Discharge Ordered Notes: Location: Home [facility] Problem: new [facility] Symptoms: are unchanged damon Condition: Stable damon Diagnosis - Personal history of diabetic foot ulcer - current left toe infection [facility] - Type 2 diabetes mellitus with diabetic neuropathy, unspecified damon - Osteomyelitis, unspecified - left 4yh and 5th distal toes [facility] - Anemia, unspecified damon Followup: [facility] - With: Private Physician - When: 1 - 2 days - Reason: Recheck today's complaints, Continuance of care Followup: [facility] - With: Brandon Kolb MD - When: 2 - 3 days - Reason: Recheck today's complaints, Continuance of care, Re-evaluation by your physician Discharge Instructions: - Discharge Summary Sheet [facility] - Osteomyelitis, Adult [facility] - Diabetes Mellitus and Foot Care [facility] - Blood Glucose Monitoring, Adult [facility] - Wound Care, Adult [facility] Forms: - Medication Reconciliation Form [facility] - Thank You Letter [facility] - Antibiotic Education [facility] - Prescription Opioid Use [facility] - Patient Portal Instructions [facility] - Leadership Thank You Letter [facility] Prescriptions: - Centany 2 % Topical ointment - apply 1 application TOPICAL route 3 times per day; 30 gram; Refills: 0, Product [facility] Selection Permitted - Cipro 500 mg Oral Tablet - take 1 tablet ORAL route every 12 hours for 10 days; 20 tablet; Refills: 0, [facility] Product Selection Permitted - Clindamycin HCl 300 mg Oral Capsule - take 1 capsule ORAL route every 6 hours for 10 days; 40 capsule; Refills: 0, [facility] Product Selection Permitted Signatures: Dispatcher [employer] Efren Plunkett MD MD cha Baxter, Heather, RN Karrie Almazan RN RN Jean Pierre Asencio tl4
--- NOTE | 2023-05-02 16:49 | ER ---
Nurse's Notes [facility] Name: Cole Jeffrey Age: 83 yrs Sex: Male : 1940 Arrival Date: 05/02/2023 Time: 14:49 Bed 14 Private MD: Diagnosis: Personal history of diabetic foot ulcer-current left toe infection;Type 2 diabetes mellitus with diabetic neuropathy, unspecified;Osteomyelitis, unspecified-left 4yh and 5th distal toes;Anemia, unspecified Presentation: 05/02 15:13 Chief complaint: Seen in ED for left foot wound 04/27, concerned wound is getting hb worse. Coronavirus screen: At this time, the client does not indicate any symptoms associated with coronavirus-19. Ebola Screen: No symptoms or risks identified at this time. Initial Sepsis Screen: Does the patient meet any 2 criteria? No. Patient's initial sepsis screen is negative. Does the patient have a suspected source of infection? No. Patient's initial sepsis screen is negative. Risk Assessment: Do you want to hurt yourself or someone else? Patient reports no desire to harm self or others. Onset of symptoms was April 13, 2023. 15:13 Method Of Arrival: Ambulatory hb 15:13 Acuity: JOSE F 3 hb Historical: - Allergies: 15:15 Sulfa (Sulfonamide Antibiotics); hb - PMHx: 15:15 Hypertension; Hyperlipidemia; Hypothyroidism; Diabetes - NIDDM; Cellulitis; ADD/ADHD; hb Atrial fibrillation; skin cancer; - PSHx: 15:15 Coronary artery bypass graft; hb - Immunization history:: Adult Immunizations up to date. - Social history:: Smoking status: Patient/guardian denies using tobacco. - Family history:: not pertinent. Screenin:18 [facility] ED Fall Risk Assessment (Adult) History of falling in the last 3 months, db including since admission No falls in past 3 months (0 pts) Confusion or Disorientation No (0 pts) Intoxicated or Sedated No (0 pts) Impaired Gait Yes (1 pt) Mobility Assist Device Used Yes (1 pt) Altered Elimination No (0 pt) Score/Fall Risk Level 0 - 2 = Low Risk Oriented to surroundings, Maintained a safe environment. Abuse screen: Denies threats or abuse. Denies injuries from another. Nutritional screening: No deficits noted. Tuberculosis screening: No symptoms or risk factors identified. Assessment: 16:15 Reassessment: Patient appears in no apparent distress at this time. Patient and/or db family updated on plan of care and expected duration. Pain level reassessed. Patient is alert, oriented x 3, equal unlabored respirations, skin warm/dry/pink. Reassessment: LEFT FOURTH TOE WOUND. MINIMAL PAIN. STATES NOTED NEW DRAINAGE. IS ON ANTIBIOTICS. WAS SEEN ON THE 16TH. General: Appears in no apparent distress. comfortable, Behavior is calm, cooperative. Pain: Complains of pain in left foot. Neuro: Level of Consciousness is awake, alert, obeys commands, Oriented to person, place, time, situation. Cardiovascular: No deficits noted. Respiratory: Airway is patent Respiratory effort is even, unlabored, Respiratory pattern is regular, symmetrical. Derm: Skin is dry, Skin temperature is warm Wound noted plantar aspect of left fourth toe. 17:00 Reassessment: Patient appears in no apparent distress at this time. Patient and/or db family updated on plan of care and expected duration. Pain level reassessed. Patient is alert, oriented x 3, equal unlabored respirations, skin warm/dry/pink. 18:57 Reassessment: Patient appears in no apparent distress at this time. Patient and/or db family updated on plan of care and expected duration. Pain level reassessed. Patient is alert, oriented x 3, equal unlabored respirations, skin warm/dry/pink. Patient states feeling better. Patient states symptoms have improved. Vital Signs: 15:13 BP 165 / 77; Pulse 62; Resp 18; Temp 98.7(TE); Pulse Ox 97% on R/A; Weight 97.07 kg; hb Height 6 ft. 1 in. ; Pain 2/10; 16:35 BP 154 / 75; Pulse 60; Resp 18; Pulse Ox 98% on R/A; db 17:26 BP 154 / 57; Pulse 59; Resp 18; Pulse Ox 98% ; db 18:00 BP 145 / 62; Pulse 62; Resp 18; Pulse Ox 98% on R/A; db 15:13 Body Mass Index 28.23 (97.07 kg, 185.42 cm) hb 15:13 Pain Scale: Adult hb ED Course: 14:51 Patient arrived in ED. mg5 15:01 Efren Sherwood MD is Attending Physician. damon 15:15 Triage completed. hb 15:16 Arm band placed on. hb 15:53 XRAY Chest (1 view) In Process Unspecified. EDMS 15:53 Foot Left 3 View XRAY In Process Unspecified. EDMS 16:01 Karrie Oliva, RUBEN is Primary Nurse. db 16:28 Inserted saline lock: 20 gauge in right antecubital area, using aseptic technique. db Blood collected. 16:48 Brandon Kolb MD is Referral Physician. damon 17:24 Patient has correct armband on for positive identification. Bed in low position. Call db light in reach. Side rails up X 1. Pulse ox on. NIBP on. 17:24 Dressings: Adaptic. Irrigation on plantar aspect of left fourth toe Patient tolerated db well CLEANED. 18:57 Provided Education on: DISCHARGE. db 18:57 No provider procedures requiring assistance completed. IV discontinued, intact, db bleeding controlled, No redness/swelling at site. Administered Medications: 16:27 Drug: NS 0.9% IV 1000 ml IV at 1 bolus Per protocol; 1000 mL bolus Route: IV; Rate: 1 db bolus; Site: right antecubital; 17:20 Follow up: Response: No adverse reaction; IV Status: Completed infusion; IV Intake: db 1000ml 17:00 Drug: Mupirocin Topical Ointment 2 % 1 application Topical once Route: Topical; Site: db affected area; 17:02 Drug: Clindamycin IVPB 900 mg IVPB once over 30 mins; (mix in 50 mL) Route: IVPB; db Infused Over: 30 mins; Site: right antecubital; 17:35 Follow up: Response: No adverse reaction; IV Status: Completed infusion; IV Intake: db 100ml 17:40 Drug: Ciprofloxacin IVPB 400 mg 200 ml IVPB once over 60 mins Volume: 200 ml; Route: db IVPB; Infused Over: 60 mins; Site: right antecubital; 18:37 Follow up: Response: No adverse reaction; IV Status: Completed infusion tl4 18:58 Follow up: Response: No adverse reaction; IV Status: Completed infusion; IV Intake: db 250ml Medication: 18:57 VIS not applicable for this client. db Intake: 17:20 IV: 1000ml; Total: 1000ml. db 17:35 IV: 100ml; Total: 1100ml. db 18:58 IV: 250ml; Total: 1350ml. db Outcome: 16:48 Discharge ordered by . damon 18:57 Discharged to home ambulatory, with family, db 18:57 Condition: stable 18:57 Discharge instructions given to patient, significant other, Instructed on discharge instructions, follow up and referral plans. Prescriptions given X 3, 18:58 Patient left the ED. db Signatures: Dispatcher [employer] Efren Plunkett MD MD cha Baxter, Heather, RN RN hb Benton, Danielle, RN RN Marlene Rosenberg mg5 Jean Pierre Hull tl4
[2023-05-02 17:03] LABS: ALT/SGPT 17 U/L (16-61); AST/SGOT 14 U/L (15-37); Albumin 3.5 g/dL (3.4-5.0); Alkaline Phosphatase 62 U/L (45-117); BUN Blood Urea Nitrogen 17 mg/dL (7-18); Bicarbonate 30 mEq/L (21-32); Bilirubin Direct 0.2 mg/dL (0-0.2); Bilirubin Indirect, Calculated 0.5 mg/dL (0.2-0.8); Bilirubin Total 0.7 mg/dL (0.2-1.0); Glomerular Filtration Rate 80 ml/min (=/>90); Glucose Level 153 mg/dL (74-106); Magnesium 2.1 mg/dL (1.6-2.4); NT PRO-BNP 3308 pg/mL (<450); Potassium 4.1 mEq/L (3.5-5.1); Protein, Total 6.7 g/dL (6.4-8.2); Sodium Level 134 mEq/L (136-145); Troponin High Sensitivity 24.8 pg/mL (<58.9)
[2023-05-02 17:05] LABS: C-Reactive Protein < 2.90 mg/L (<3.00)
[2023-05-02] MEDS ORDERED: CIPROFLOXACIN 400mg IV 400 MG/200 ML BAG IV ONE (17:05)
[2023-05-02] MEDS ORDERED: CLINDAMYCIN 900MG/D5W 900 MG/50 ML IVPB IV ONE (17:05)
[2023-05-02] MEDS ORDERED: MUPIROCIN 2% OINT 22GM TUBE TOP ONE (17:05)
[2023-05-02 20:21] VITALS: TEMP 98.7
[2023-05-02 20:22] VITALS: O2SAT 98
[2023-05-02 20:25] VITALS: BP 145/62
--- NOTE | 2023-05-04 16:54 | EKG ---
Test Date: 2023-05-02 Test Time: 16:36:09 Associate Engineer: [place] MEASUREMENT RESULTS: Intervals: Rate: 62 SD: QRSD: 156 QT: 478 QTc: 485 [place]: P: 67 SD: QRS: -62 T: 8 INTERPRETIVE STATEMENTS: Ventricular-paced rhythm Abnormal ECG Compared to ECG 06/13/2021 21:10:49 Sinus rhythm no longer present First degree AV block no longer present Left-axis deviation no longer present Right bundle-branch block no longer present Electronically Signed On 05-04-23 16:50:40 [employer] by Twan Alexander
== END 2023-05-02 18:58 | disposition home or self-care (01) ==
LOC: ER 14:49
DX: L03.032 Cellulitis of left toe (principal); E11.69 Type 2 diabetes mellitus with other specified complication; M86.9 Osteomyelitis, unspecified; E11.40 Type 2 diabetes mellitus with diabetic neuropathy, unspecified; D64.9 Anemia, unspecified; Z86.31 Personal history of diabetic foot ulcer; I10 Essential (primary) hypertension; Z95.1 Presence of aortocoronary bypass graft; Z88.2 Allergy status to sulfonamides
CPT/HCPCS: 96365; 96367; 96361; 93005; 87040 ×2; 87070; 85025; 80048; 36415; 83735; 87205; 85610; 80076; 83605; 87077; 87186; 84484; 83880; 86140; 71045; 73630; 99285; J0744; J7030

== ENCOUNTER 2024-09-18 03:39 | Emergency (ER) | payer OTHER, MEDICARE ==
--- OUTSIDE RECORDS SUMMARY | 2024-09-18 03:43 | XMS REPORT | Clinical Summary ---
Author Name Unknown Organization [facility] Address [address] [place] [address] Care Team Providers Care Licensed Mental Health Professional Name Role Phone Yadi Childs MD Primary Care Provider [phone] Keysha Felix MD Unavailable Damir Lucero MD Unavailable [phone] Kwame Santiago MD Unavailable Aminah Zuniga MD Unavailable [phone] Allergies No known active allergies Medications * This document contains information received from the source organization and may not represent a complete record from that organization. finasteride (PROSCAR) 5 mg tablet Take 1 tablet by mouth every evening. 04/21/2016 Active levothyroxine (SYNTHROID, LEVOTHROID) 50 mcg tablet Take 1 tablet by mouth daily. 03/25/2016 Active tamsulosin (FLOMAX) 0.4 mg 24 hr capsule Take 1 capsule by mouth at bedtime. 04/11/2016 Active glimepiride (AMARYL) 4 mg tablet Take 1 tablet by mouth twice daily. 03/10/2016 Active oxybutynin (DITROPAN) 5 mg tablet Take 1 tablet by mouth every evening. 04/17/2016 Active metFORMIN (GLUCOPHAGE) 1000 mg tablet 1,000 mg 2 (two) times a day with meals. 11/04/2015 Active simvastatin (ZOCOR) 20 mg tablet Take 1 tablet by mouth daily. 04/02/2016 Active losartan-hydroc hlorothiazide (HYZAAR) 100-25 mg per tablet Take 1 tablet by mouth daily. Active multivitamin (multivitamin) tab tablet Take 1 tablet by mouth daily. Active loratadine (CLARITIN) 10 mg tablet Take 10 mg by mouth as needed for allergies. Active magnesium oxide 500 mg tablet Take 500 mg by mouth twice daily. Active cyanocobalamin (vitamin B-12) 1000 mcg tablet Take 2,500 mcg by mouth daily. Active JANUVIA 50 mg tablet Take 1 tablet by mouth daily. 03/02/2016 Active diltiazem (CARDIZEM LA) 360 mg 24 hr tablet 08/16/2017 Active amLODIPine (NORVASC) 2.5 mg tablet Take 1 tablet by mouth daily. 07/24/2018 Active silodosin (RAPAFLO) 8 mg capsule Take 1 capsule by mouth daily. 08/06/2018 Active dutasteride (AVODART) 0.5 mg capsule Take 1 capsule by mouth daily. 07/24/2018 Active Active Problems Problem Noted Date Diagnosed Date Bilateral impacted cerumen 07/14/2016 Basal cell carcinoma of skin of left ear and external auricular canal 07/14/2016 Active cochlear Meniere disease 05/19/2016 Basal cell carcinoma of skin of right ear 2015 Sensorineural hearing loss, bilateral 05/12/2016 Asymmetrical sensorineural hearing loss 05/12/20 16 Morbid (severe) obesity due to excess calories 1 07/03/2015 Essential (primary) hypertension 05/03/2016 Diabetes mellitus due to und erlying condition with complication 05/03/2016 Hypothyroidism 05/03/2016 Hyperlipidemia 05/03/2016 Alcohol use disorder, mild 05/03/2016 Infectious disease 06/13/2014 Overview (08/31/2017): infections due to cracks in feet/dry skin Disorder of thyroid gland 06/13/2013 Overview (08/31/2017): take thyroid rx 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 Overview (08/31/2017): right helix Arthritis 06/13/1999 Overview (08/31/2017): from injuries and old age Asbestosis 06/13/1994 Diabetes mellitus 06/13/1994 Overview (08/31/2017): take meds but not on insulin Hypertension 06/13/1989 Pneumonia 06/13/1970 Open skull fracture without intracranial injury Overview (08/31/2017): slip and fall Presence of other specified device Overview (08/31/2017): [place] knee has total knee replacements Surgical History Surgery Date Site/Laterality Comments MOHS PROCEDURE 05/21/2013 Left left helix and left arm MOHS PROCEDURE 05/28/2013 Right right helix COLONOSCOPY 06/13/2013 - 06/12/2014 about 2 years ago TOTAL KNEE ARTHROPLASTY 06/13/2011 - 06/12/2012 Right TOTAL KNEE ARTHROPLASTY 06/13/2013 - 06/12/2014 Left MS EXCISION MALIGNANT LESION F/E/E/N/L 0.5 CM/< 05/13/2016 Right Procedure: wide local, Right auricle; Surgeon: Kwame Santiago MD; Location: MAIN OR; Service: [facility] - HEAD & NECK SURGERY MS SPLT AGRFT T/A/L 1ST 100 SQCM/</1% BDY INFT/CHLD 05/13/2016 Right Procedure: SPLIT THICKNESS SKIN GRAFT OF TRUNK/ARM OR LEG; Surgeon: Kwame Santiago MD; Location: MAIN OR; Service: [facility] - HEAD & NECK SURGERY Medical History Medical History Date Comments 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 morpheaform, left helix Squamous cell carcinoma of s kin of upper limb, including shoulder 05/18/2013 left antecubital Squamous cell carcinoma of skin of ear 6 right conchal bowl Hypertension 1989 Hyperlipidemia 1992 Asbestosis 1994 Pneumonia 1970 Infectious disease 2014 infections du e to cracks in feet/dry skin Fracture 1966 broken arm, ribs 1965 broken ribs 1976 Arthritis 1999 from injuries an d old age Presence of other specified device 2013 eacearnest knee has total knee replacements Disorder of thyroid gland 2013 take t hyroid rx Diabetes mellitus 1994 take meds but not on insulin Sensorineural hearing loss, bilateral 05/12/2016 Open skull fracture without intracranial injury slip and fall Family History Medical History Relation Name Comments Coronary heart disease (CHD) Father Heart disease Father -Breast cancer Mother Delfin Paul fro m cancer Relation Name Status Comments Father Mother Delfin Paul Social History Tobacco Use Types Packs/Day Years Used Date Smoking Tobacco: Former Cigarettes 0 06/16/1959 - 04/23/1987 Smokeless Tobacco: Never Tobacco Cessation:Ready to Q uit: No Comments:already quit 29 years ago Alcohol Use Standard Drinks/Week Comments Yes 0 (1 standard drink = 0.6 oz pur e alcohol) Sex and Gender Information Value Date Recorded Sex Assigned at Not on file Legal Sex Male 9:06 AM HATCH BOSS Gender Identity Not on file Sexual Orientation Not on file Obstetrics History Plan of Treatment Health Maintenance Due Date Last Done Comments Pneumococcal Vaccine: 50+ Years (1 of 1 - PCV) 989 06/13/2015 COVID-19 Vaccine (2023- season) 2024 Influenza Vaccine (#1) 2024 Insurance MEDICARE PART A AND B [employer] ONLY MEDICARE PART A AND B [employer]-SECOND[employer] ONLY MEDICARE PART A AND B [employer]-SECONDARY ONLY Advance Directives Documents on File Type Date Recorded Patient Mounter Hand Expl anation Advance Directives: Living Will 05/14/2016 Directive to Physici ans and Family or Surrogates-Living Will Advance Directives: Medical Power of Director Loss Prevention 05/14/2016 Medical Power of Att orney * Full Code (Latest Code Status on File) Date Activated Date Inactivated Comments 05/13/2016 1:54 PM 05/13/2016 9:10 PM Care Teams Licensed Mental Health Professional Relationship Specialty Start Date End Date Yadi Childs MD [address] [place] [phone] [email or web address] PCP - General Head and Neck Surgery 04/23/15 Keysha Felix MD [address] [place] [email or web address] PCP - External Referring Dermatology 04/23/15 Damir Lucero MD [address] [place] [phone] [email or web address] PCP - External Primary Care Provider Family Practice 04/26/16 Kwame Santiago MD [address] [place] [phone] [email or web address] Consulting Physician Head and Neck Surgery 05/12/16 Aminah Zuniga MD [address] [place] [phone] [email or web address] Consulting Physician Internal Medicine 05/03/16
[2024-09-18 04:16] LABS: PT Prothrombin Time 13.6 SECONDS (10-13.0); Protime INR 1.2
[2024-09-18 04:17] LABS: Absolute Eosinophils 0.6 K/uL (0-0.5); Absolute Lymphocytes (CBC) 2.6 K/uL (0.7-4.9); Absolute Monocytes 0.9 K/uL (0.1-1.3); Absolute Neutrophil 3.9 K/uL (1.8-8.0); Basophils % 0.5 % (0-1.3); Eosinophils % 7.4 % (0-4.4); Hemoglobin 13.3 g/dL (13.6-17.9); Lymphocytes % 32.4 % (15.3-44.8); MCH 29.8 pg (27.0-35.0); MCHC 33.3 g/dL (32.0-36.0); MCV 89.4 fL (80-100); MPV 8.4 fL (7.6-11.3); Monocytes % 11.5 % (3.3-12.3); Neutrophils % 48.2 % (41.7-73.7); Platelets 206 thou/uL (152-406); RBC Red Blood Cell Count 4.47 M/uL (4.33-5.43); Red Cell Distribution Width 16.3 % (12.1-15.2)
[2024-09-18] MEDS ORDERED: MORPHINE 4 MG/ML SYR ONE (04:17)
[2024-09-18] MEDS ORDERED: ONDANSETRON 4 MG/2 ML VIAL ONE (04:17)
[2024-09-18 04:46] LABS: Albumin 3.3 g/dL (3.4-5.0); Albumin/Globulin Ratio 0.9 (1.1-1.8); Anion Gap 10.1 mEq/L (5.0-15.0); Bilirubin Direct 0.2 mg/dL (0-0.2); Bilirubin Indirect, Calculated 0.2 mg/dL (0.2-0.8); Bilirubin Total 0.4 mg/dL (0.2-1.0); Globulin 3.6 g/dL (2.3-3.5); Magnesium 2.3 mg/dL (1.6-2.4); Potassium 4.1 mEq/L (3.5-5.1); Protein, Total 6.9 g/dL (6.4-8.2); Thyroid Stimulating Hormone 1.31 uIU/mL (0.358-3.740); Troponin High Sensitivity 45.4 pg/mL (<58.9)
--- NOTE | 2024-09-18 05:49 | RAD REPORT ---
CLINICAL HISTORY: Chest pain. COMPARISON: None. TECHNIQUE: XR CHEST 1 VIEW 09/18/2024 3:54 AM CDT FINDINGS: The heart is enlarged. Sternotomy was performed. Left AICD is present. There is mild diffuse intersti tial prominence. There may be small pleural effusions. There is no pneumothorax. There are no acute osseous findings. IMPRESSION: Possible mild pulmonary edema. Electronically signed by: Aram Cullen MD 09/18/2024 05:40 AM CDT RP Due to temporary technical issues with the PACS/[employer] reporting system, reports are being gray d by the in-house radiologist without review as a courtesy to ensure prompt reporting the interpreting radiologist is fully responsible for the content of the report. Transcribed Date/Time: 09/18/2024 5:49 AM
--- NOTE | 2024-09-18 06:58 | EDPHYS ---
Physician Documentation [facility] Name: Cole Jeffrey Age: 84 yrs Sex: Male : 1940 Arrival Date: 09/18/2024 Time: 03:39 Bed 6 Private MD: ED Physician John Paul Thapa HPI: 09/18 03:53 This 84 yrs old Male presents to ER via Unassigned with complaints of chest sp4 pain . 06:17 Patient is a very pleasant 84-year-old male extensive past medical history presents sp4 with moderate left-sided chest pain associated with left arm pain. Past medical history of diabetes mellitus, coronary artery disease, hypertension, right knee replacement, left knee replacement, hypercholesterolemia, hypothyroidism, skin cancer, right second toe amputation, CABG quadruple bypass in 2020, patient's math interventionist Dr. Marquez , primary care physician Dr. Cope. Medication list includes. 06:37 There is medication list. Patient takes levothyroxine 88 mcg daily, metformin 1000 mg sp4 twice daily, losartan 100 mg daily, furosemide 25 mg daily, aspirin 81 mg daily, metoprolol 25 mg daily, tamsulosin 0.4 mg daily, multivitamin daily, magnesium daily, simvastatin 20 mg during the evening, amlodipine 2.5 mg daily, Coumadin 8 mg daily, finasteride 5 mg in the evening.. Historical: - Allergies: 03:56 Sulfa (Sulfonamide Antibiotics); br2 - PMHx: 03:56 ADD/ADHD; Atrial fibrillation; Cellulitis; Diabetes - NIDDM; Hyperlipidemia; br2 Hypertension; Hypothyroidism; skin cancer; - PSHx: 03:56 Coronary artery bypass graft; BILATERAL KNEES (Coronary artery bypass graft); br2 - Immunization history:: Adult Immunizations up to date. - Infectious Disease History:: Denies. - Social history:: Smoking status: Patient/guardian denies using tobacco, Patient uses alcohol, on a daily basis. 4 SHOTS PER DAY. - Family history:: not pertinent. ROS: 06:38 Constitutional: Negative for fever, chills, and weight loss, positive chest pain, sp4 positive left arm pain 06:38 All other systems are negative, Exam: 06:38 Constitutional: This is a well developed, well nourished patient who is awake, alert, sp4 and in no acute distress. Head/Face: Normocephalic, atraumatic. Eyes: Pupils equal round and reactive to light, extra-ocular motions intact. Lids and lashes normal. Conjunctiva and sclera are not injected. Cornea within normal limits. Periorbital areas with no swelling, redness, or edema. ENT: Nares patent. No nasal discharge, no septal abnormalities noted. Tympanic membranes are normal and external auditory canals are clear. Oropharynx with no redness, swelling, or masses, exudates, or evidence of obstruction, uvula midline. Mucous membranes moist. Neck: Trachea midline, no thyromegaly or masses palpated, and no cervical lymphadenopathy. Supple, full range of motion without nuchal rigidity, or vertebral point tenderness. Chest/axilla: Normal chest wall appearance and motion. Nontender with no deformity. No lesions are appreciated. Cardiovascular: Regular rate and rhythm with a normal S1 and S2. No gallops, murmurs, or rubs. Normal PMI, no JVD. No pulse deficits. Respiratory: Lungs have equal breath sounds bilaterally, clear to auscultation and percussion. No rales, rhonchi or wheezes noted. No increased work of breathing, no retractions or nasal flaring. Abdomen/GI: Soft, with normal bowel sounds. No distension or tympany. No guarding or rebound. No evidence of tenderness throughout. Back: No spinal tenderness. No costovertebral tenderness. Skin: Warm, dry with normal turgor. Normal color with no rashes, no lesions, and no evidence of cellulitis. MS/ Extremity: Pulses equal, no cyanosis. Neurovascular intact. Full, normal range of motion. Neuro: Awake and alert, GCS 15, oriented to person, place, time, and situation. Cranial nerves II-XII grossly intact. Motor strength 5/5 in all extremities. Sensory grossly intact. Psych: Awake, alert, with orientation to person, place and time. Behavior, mood, and affect are within normal limits 06:38 ECG was reviewed by the Attending Physician. EKG at 0 348 atrial sensed ventricular paced rhythm rate 80 Vital Signs: 03:52 BP 176 / 81; Pulse 87; Resp 18 S; Temp 97.4; Pulse Ox 97% on R/A; Weight 108.86 kg; br2 Height 6 ft. 2 in. ; Pain 8/10; 04:12 BP 161 / 66; Pulse 79; Resp 19; Pulse Ox 92% on R/A; kd3 05:23 BP 144 / 72; Pulse 67; Resp 18 S; Pulse Ox 97% on R/A; Pain 1/10; br2 06:44 BP 169 / 94; Pulse 62; Resp 18; Pulse Ox 97% on R/A; Pain 1/10; br2 06:54 BP 157 / 89; Pulse 63; Resp 18 S; Pulse Ox 97% on R/A; br2 07:49 BP 151 / 71; Pulse 63; Resp 17; Pulse Ox 96% ; Pain 0/10; ll1 08:21 BP 153 / 78; Pulse 63; Resp 18; Pulse Ox 96% ; Pain 0/10; ll1 03:52 Body Mass Index 30.81 (108.86 kg, 187.96 cm) br2 03:52 Pain Scale: Adult br2 05:23 Pain Scale: Adult br2 06:44 Pain Scale: Adult br2 07:49 Pain Scale: Adult ll1 08:21 Pain Scale: Adult ll1 Jefry Coma Score: 06:38 Eye Response: spontaneous(4). Motor Response: obeys commands(6). Verbal Response: sp4 oriented(5). Total: 15. MDM: 03:48 Differential diagnosis: acute myocardial infarction, acute pericarditis, anxiety, sp4 coronary artery disease chest wall pain, congestive heart failure cholecystitis. HEART Score: History: Highly Suspicious (2), ECG: Non specific repolarization disturbance / LBTB / PM (1), Age: > or = 65 years (2), Risk Factors: > or = 3 Risk factors for atherosclerotic disease (2), Troponin: < or = 1 x Normal Limit (0), Total Score = 7. The patient was not given aspirin in the Emergency Department. Administered by EMS. Data reviewed: vital signs, nurses notes. ED course: EKG revealed paced rhythm. Initial troponin negative. Patient was discussed with Dr. Bhatti with cardiology who accepted patient to [facility]. 03:54 Medical Screening Exam initiated sp4 06:06 ED course: CLINICAL HISTORY: Chest pain. COMPARISON: None. TECHNIQUE: XR CHEST 1 VIEW sp4 09/18/2024 3:54 AM CDT FINDINGS: The heart is enlarged. Sternotomy was performed. Left AICD is present. There is mild diffuse interstitial prominence. There may be small pleural effusions. There is no pneumothorax. There are no acute osseous findings. IMPRESSION: Possible mild pulmonary edema.. 07:08 Transition of care: After a detail discussion of the patient's case, care is sp4 transferred to John Paul Thapa MD. 09/18 03:54 Order name: Basic Metabolic Panel; Complete Time: 05:38 sp4 09/18 03:54 Order name: CBC with Diff; Complete Time: 05:38 sp4 09/18 03:54 Order name: LFT's; Complete Time: 05:38 sp4 09/18 03:54 Order name: Magnesium; Complete Time: 05:38 sp4 09/18 03:54 Order name: NT PRO-BNP; Complete Time: 05:38 sp4 09/18 03:54 Order name: PT-INR; Complete Time: 05:38 sp4 09/18 03:54 Order name: Troponin HS; Complete Time: 05:38 sp4 09/18 04:29 Order name: T4 Free; Complete Time: 05:38 EDMS 09/18 04:29 Order name: Thyroid Stimulating Hormone; Complete Time: 05:38 EDMS 09/18 06:24 Order name: Troponin High Sensitivity; Complete Time: 07:33 sp4 09/18 03:54 Order name: XRAY Chest (1 view); Complete Time: 06:05 sp4 09/18 03:54 Order name: Cardiac monitoring; Complete Time: 04:12 sp4 09/18 03:54 Order name: EKG - Nurse/Tech; Complete Time: 04:12 sp4 09/18 03:54 Order name: IV Saline Lock; Complete Time: 04:12 sp4 09/18 03:54 Order name: Labs collected and sent; Complete Time: 04:12 sp4 09/18 03:54 Order name: O2 Per Protocol; Complete Time: 04:12 sp4 09/18 03:54 Order name: O2 Sat Monitoring; Complete Time: 04:12 sp4 EC:48 Rate is 80 beats/min. Rhythm is regular, Paced. Clinical impression: No evidence of sp4 ischemia. Interpreted by me. Reviewed by me. Administered Medications: 04:23 Drug: Ondansetron IVP 4 mg IVP once; over 2 minutes Route: IVP; Site: right antecubital;kd3 08:42 Follow up: Response: No adverse reaction ll1 04:23 Drug: morphine IVP or IV 4 mg IVP once over 4 mins Route: IVP; Infused Over: 4 mins; kd3 Site: right antecubital; 08:41 Follow up: Response: No adverse reaction; Pain is decreased; RASS: Alert and Calm (0) ll1 Disposition Summary: 09/18/24 06:57 Transfer Ordered Notes: Transfer Location: [facility] sp4 Reason: Higher level of care sp4 Condition: Stable sp4 Problem: new sp4 Symptoms: have improved sp4 Accepting Physician: Dr. Bhatti Cardiology (09/18/24 08:41) ll1 Diagnosis - Unstable angina, sp4 Forms: - Medication Reconciliation Form sp4 - SBAR form sp4 Signatures: Dispatcher [employer] EDMS John Paul Thapa MD MD rn Lewis, Lynsay RN RN ll1 Angela Carl RN RN kd3 Gabino Antunez MD MD sp4 Mamta Dickey RN RN br2 Corrections: (The following items were deleted from the chart) 03:55 03:55 BASIC METABOLIC PANEL+C.LAB.BRZ ordered. EDMS EDMS 03:55 03:55 CBC+H.LAB.BRZ ordered. EDMS EDMS 03:55 03:55 HEPATIC FUNCTION+C.LAB.BRZ ordered. EDMS EDMS 03:55 03:55 MAGNESIUM+C.LAB.BRZ ordered. EDMS EDMS 03:55 03:55 PROBNP+C.LAB.BRZ ordered. EDMS EDMS 03:55 03:55 PROTIME (+INR)+COAG.LAB.BRZ ordered. EDMS EDMS 03:55 03:55 Troponin High Sensitivity+C.LAB.BRZ ordered. EDMS EDMS 03:55 03:55 Chest Single View+RAD.RAD.BRZ ordered. EDMS EDMS 04:29 04:16 THYROID STIMULAT HORMONE+C.LAB.BRZ ordered. EDMS EDMS 04:29 04:16 T4 FREE+C.LAB.BRZ ordered. EDMS EDMS 06:24 06:24 Troponin High Sensitivity+C.LAB.BRZ ordered. EDMS EDMS 08:41 06:57 Dr. Bhatti Cardiology sp4 ll1
--- NOTE | 2024-09-18 06:58 | ER ---
Nurse's Notes [facility] Name: Cole Jeffrey Age: 84 yrs Sex: Male : 1940 Arrival Date: 09/18/2024 Time: 03:39 Bed 6 Private MD: Diagnosis: Unstable angina, Presentation: 09/18 03:52 Chief complaint: Patient states: LEFT CHEST WALL PAIN THAT RADIATES TO LEFT ARM. PT br2 STATES IT WOKE HIM UP OUT OF BED. PT HAD LEFT ARM PAIN DURING THE DAY BUT IT WENT AWAY (2PM). Coronavirus screen: Client denies travel out of the [place] in the last 14 days. Ebola Screen: Patient denies exposure to infectious person. Initial Sepsis Screen: Does the patient meet any 2 criteria? No. Patient's initial sepsis screen is negative. Does the patient have a suspected source of infection? No. Patient's initial sepsis screen is negative. Risk Assessment: Do you want to hurt yourself or someone else? Patient reports no desire to harm self or others. Onset of symptoms was September 18, 2024 at 02:00. 03:52 Method Of Arrival: Ambulatory br2 03:52 Method Of Arrival: EMS: [facility] br2 03:52 Acuity: JOSE F 2 kb3 Triage Assessment: 03:56 General: Appears uncomfortable, Behavior is anxious. Pain: Complains of pain in left br2 clavicle, anterior aspect of left upper chest and left breast Pain radiates to left arm Pain currently is 8 out of 10 on a pain scale. EENT: No signs and/or symptoms were reported regarding the EENT system. Neuro: Rush Agitation-Sedation Scale (RASS): 0 - Alert and Calm. Cardiovascular: Reports chest pain. Respiratory: Airway is patent Respiratory effort is even, unlabored, Respiratory pattern is regular, symmetrical. GI: Abdomen is round obese. : No signs and/or symptoms were reported regarding the genitourinary system. Derm: No signs and/or symptoms reported regarding the dermatologic system. Musculoskeletal: Capillary refill < 3 seconds. Historical: - Allergies: 03:56 Sulfa (Sulfonamide Antibiotics); br2 - PMHx: 03:56 ADD/ADHD; Atrial fibrillation; Cellulitis; Diabetes - NIDDM; Hyperlipidemia; br2 Hypertension; Hypothyroidism; skin cancer; - PSHx: 03:56 Coronary artery bypass graft; BILATERAL KNEES (Coronary artery bypass graft); br2 - Immunization history:: Adult Immunizations up to date. - Infectious Disease History:: Denies. - Social history:: Smoking status: Patient/guardian denies using tobacco, Patient uses alcohol, on a daily basis. 4 SHOTS PER DAY. - Family history:: not pertinent. Screenin:13 [facility] ED Fall Risk Assessment (Adult) History of falling in the last 3 months, kd3 including since admission No falls in past 3 months (0 pts) Confusion or Disorientation No (0 pts) Intoxicated or Sedated No (0 pts) Impaired Gait No (0 pts) Mobility Assist Device Used No (0 pt) Altered Elimination No (0 pt) Score/Fall Risk Level 0 - 2 = Low Risk Oriented to surroundings. Abuse screen: Denies threats or abuse. Denies injuries from another. Nutritional screening: No deficits noted. Tuberculosis screening: No symptoms or risk factors identified. Assessment: 04:13 General: Appears uncomfortable, Behavior is calm, cooperative, appropriate for age. kd3 Pain: Complains of pain in left arm and chest Pain currently is 8 out of 10 on a pain scale. Neuro: Level of Consciousness is awake, alert, obeys commands, Oriented to person, place, time, situation. Cardiovascular: Patient's skin is warm and dry. 06:44 Reassessment: Patient and/or family updated on plan of care and expected duration. Pain br2 level reassessed. Patient is alert, oriented x 3, equal unlabored respirations, skin warm/dry/pink. Patient states feeling better. Patient states symptoms have improved. 07:17 Reassessment: Pt denies pain at this time. 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 RR even and ss unlabored. 07:49 Reassessment: No changes from previously documented assessment. Patient and/or family ll1 updated on plan of care and expected duration. Pain level reassessed. 08:21 Reassessment: No changes from previously documented assessment. Patient and/or family ll1 updated on plan of care and expected duration. Pain level reassessed. Patient is alert, oriented x 3, equal unlabored respirations, skin warm/dry/pink. Vital Signs: 03:52 BP 176 / 81; Pulse 87; Resp 18 S; Temp 97.4; Pulse Ox 97% on R/A; Weight 108.86 kg; br2 Height 6 ft. 2 in. ; Pain 8/10; 04:12 BP 161 / 66; Pulse 79; Resp 19; Pulse Ox 92% on R/A; kd3 05:23 BP 144 / 72; Pulse 67; Resp 18 S; Pulse Ox 97% on R/A; Pain 1/10; br2 06:44 BP 169 / 94; Pulse 62; Resp 18; Pulse Ox 97% on R/A; Pain 1/10; br2 06:54 BP 157 / 89; Pulse 63; Resp 18 S; Pulse Ox 97% on R/A; br2 07:49 BP 151 / 71; Pulse 63; Resp 17; Pulse Ox 96% ; Pain 0/10; ll1 08:21 BP 153 / 78; Pulse 63; Resp 18; Pulse Ox 96% ; Pain 0/10; ll1 03:52 Body Mass Index 30.81 (108.86 kg, 187.96 cm) br2 03:52 Pain Scale: Adult br2 05:23 Pain Scale: Adult br2 06:44 Pain Scale: Adult br2 07:49 Pain Scale: Adult ll1 08:21 Pain Scale: Adult ll1 [place] Coma Score: 06:38 Eye Response: spontaneous(4). Motor Response: obeys commands(6). Verbal Response: sp4 oriented(5). Total: 15. ED Course: 03:49 Patient arrived in ED. kmf 03:51 Mamta Dickey RN is Primary Nurse. br2 03:53 Gabino Antunez MD is Attending Physician. sp4 03:56 Triage completed. br2 03:56 Arm band placed on. br2 04:12 Basic Metabolic Panel Sent. kd3 04:12 CBC with Diff Sent. kd3 04:12 LFT's Sent. kd3 04:12 NT PRO-BNP Sent. kd3 04:12 PT-INR Sent. kd3 04:12 Troponin HS Sent. kd3 04:14 XRAY Chest (1 view) In Process Unspecified. EDMS 04:14 No provider procedures requiring assistance completed. Maintain EMS IV. Dressing kd3 intact. Good blood return noted. Site clean \T\ dry. Gauge \T\ site: 20 g right A/C. 04:15 Patient has correct armband on for positive identification. Provided Education on: kd3 chest pain . 07:13 Notified ED physician of a critical lab result(s). troponin 909. ll1 07:29 initiated transfer to [facility]. f 07:33 Attending Physician role handed off by Gabino Antunez MD rn 07:33 John Paul Thapa MD is Attending Physician. rn 07:42 pt accepted in transfer to [facility] ER by dr olea, admin approval given by Ewelina Mclean. 07:53 Transfer to [facility] due to pt request. kb3 07:54 Patient transferred, IV remains in place. ll1 Administered Medications: 04:23 Drug: Ondansetron IVP 4 mg IVP once; over 2 minutes Route: IVP; Site: right antecubital;kd3 08:42 Follow up: Response: No adverse reaction ll1 04:23 Drug: morphine IVP or IV 4 mg IVP once over 4 mins Route: IVP; Infused Over: 4 mins; kd3 Site: right antecubital; 08:41 Follow up: Response: No adverse reaction; Pain is decreased; RASS: Alert and Calm (0) ll1 Medication: 04:14 VIS not applicable for this client. kd3 Outcome: 06:57 ER care complete, transfer ordered by . sp4 07:53 Transferred by ground EMS Note: [facility]. Report called to Mamie Zhao RN ll1 07:53 Condition: stable 07:53 Instructed on the need for transfer, 08:41 Patient left the ED. ll1 Signatures: Dispatcher [employer] EDMS Shoshana Garcia Roman, MD MD rn Blanchard, Shelby RN Vira Ta RN RN ll1 Angela Carl RN RN kd3 Ayana Cortez, RUBEN [email or web address] Gabino Antunez MD MD sp4 Anca Wilkes [facility] Mamta Dickey RN RN br2 Corrections: (The following items were deleted from the chart) 07:53 03:52 Acuity: JOSE F 3 br2 kb3 07:54 07:53 General: kb3 kb3
[2024-09-18 08:50] VITALS: TEMP 97.4
[2024-09-18 08:56] VITALS: O2SAT 96
[2024-09-18 08:57] VITALS: BP 153/78
--- NOTE | 2024-09-18 10:55 | EKG ---
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
== END 2024-09-18 08:41 | disposition short-term general hospital (02) ==
LOC: ER 03:39
DX: I20.0 Unstable angina (principal); I10 Essential (primary) hypertension; I48.91 Unspecified atrial fibrillation; E78.00 Pure hypercholesterolemia, unspecified; Z79.01 Long term (current) use of anticoagulants; Z79.82 Long term (current) use of aspirin; Z95.1 Presence of aortocoronary bypass graft
CPT/HCPCS: 93005; 85025; 80048; 36415; 83735; 85610; 80076; 84443; 84484 ×2; 84439; 83880; 71045; 96375; 96374; 99285; J2405